=== PATIENT | male | born 1955 | race Caucasian/White ===

== ENCOUNTER 2017-10-05 10:03 | Emergency (ER) | payer SELFPAY ==
[2017-10-05] MEDS ORDERED: HYDROCODONE/APAP 5/325 MG TAB ONE (11:52)
--- NOTE | 2017-10-05 14:15 | ER ---
Nurse's Notes [facility] Name: Jaswinder Roa Age: 61 yrs Sex: Male : 1955 Arrival Date: 10/05/2017 Time: 10:08 Bed 18 Private MD: Uriel Langford S Diagnosis: Pain in left leg;Osteoarthritis of hip, unspecified Presentation: 10/05 10:23 Presenting complaint: Patient states: Pain to right inner thigh for 1 week with aj bilateral ear congestion. Ambulated to triage with steady gait. Transition of care: patient was not received from another setting of care. Onset of symptoms was September 28, 2017. Risk Assessment: Do you want to hurt yourself or someone else? Patient reports no desire to harm self or others. Care prior to arrival: None. 10:23 Method Of Arrival: Ambulatory aj 10:23 Acuity: CHICHI 3 aj 10:44 Initial Sepsis Screen: Does the patient meet any 2 criteria? No. Patient's initial aa5 sepsis screen is negative. Does the patient have a suspected source of infection? No. Patient's initial sepsis screen is negative. Triage Assessment: 10:24 General: Appears in no apparent distress. comfortable, Behavior is calm, cooperative, aj appropriate for age. Pain: Complains of pain in right inner thigh. Neuro: Level of Consciousness is awake, alert, obeys commands, Oriented to person, place, time, situation, Appropriate for age. Cardiovascular: Denies chest pain. Respiratory: Airway is patent Respiratory effort is even, unlabored, Respiratory pattern is regular, symmetrical. Respiratory: Denies shortness of breath. Derm: Skin is intact, is healthy with good turgor, Skin is pink, warm \\T\\ dry. normal. Historical: - Allergies: 10:24 No Known Allergies; aj - Home Meds: 10:24 lisinopril 5 mg Oral tab 1 tab once daily [Active]; warfarin 5 mg Oral tab 7.5 mg once aj daily [Active]; - PMHx: 10:24 Hypertension; aj - PSHx: 10:24 leg surgery; aj - Immunization history:: Adult Immunizations up to date. - Social history:: Smoking status: Patient uses tobacco products, smokes one pack cigarettes per day. - Ebola Screening: : Patient negative for fever greater than or equal to 101.5 degrees Fahrenheit, and additional compatible Ebola Virus Disease symptoms Patient denies exposure to infectious person Patient denies travel to an Ebola-affected area in the 21 days before illness onset No symptoms or risks identified at this time. Screenin:44 Abuse screen: Denies threats or abuse. Nutritional screening: No deficits noted. aa5 Tuberculosis screening: No symptoms or risk factors identified. Fall Risk None identified. Assessment: 10:40 General: Appears comfortable, Behavior is calm, cooperative. Pain: Complains of pain in aa5 right quadriceps Pain does not radiate. Pain currently is 5 out of 10 on a pain scale. Quality of pain is described as pt states "like a pulled muscle" Pain began 1 week ago Is continuous, Aggravated by increased activity, weight bearing. Neuro: Level of Consciousness is awake, alert, obeys commands, Oriented to person, place, time, situation. Cardiovascular: Edema is absent. Respiratory: Airway is patent Respiratory effort is even, unlabored, Respiratory pattern is regular, symmetrical. GI: No signs and/or symptoms were reported involving the gastrointestinal system. : No signs and/or symptoms were reported regarding the genitourinary system. EENT: Reports "ear congestion, I can barely hear". pt denies ear pain. Pt reports symptoms began 2-3 days ago. Derm: Skin is pink, warm \\T\\ dry. Musculoskeletal: Range of motion: intact in all extremities. 10:55 Reassessment: Report given to ELENA Starks. aa5 11:41 Reassessment: Patient appears in no apparent distress at this time. No changes from tw2 previously documented assessment. Patient and/or family updated on plan of care and expected duration. Pain level reassessed. Patient is alert, oriented x 3, equal unlabored respirations, skin warm/dry/pink. 12:46 Reassessment: Patient appears in no apparent distress at this time. No changes from tw2 previously documented assessment. Patient and/or family updated on plan of care and expected duration. Pain level reassessed. Patient is alert, oriented x 3, equal unlabored respirations, skin warm/dry/pink. 12:47 Reassessment: xray at bedside at this time. tw2 13:39 Reassessment: Patient appears in no apparent distress at this time. No changes from tw2 previously documented assessment. Patient and/or family updated on plan of care and expected duration. Pain level reassessed. Patient is alert, oriented x 3, equal unlabored respirations, skin warm/dry/pink. 14:32 Reassessment: Patient appears in no apparent distress at this time. No changes from tw2 previously documented assessment. Patient and/or family updated on plan of care and expected duration. Pain level reassessed. Patient is alert, oriented x 3, equal unlabored respirations, skin warm/dry/pink. Vital Signs: 10:24 BP 137 / 96; Pulse 79; Resp 16; Temp 97.5; Pulse Ox 98% on R/A; Weight 90.72 kg; Height aj 6 ft. 2 in. (187.96 cm); 11:41 BP 144 / 87; Pulse 60; Resp 17; Pulse Ox 96% ; tw2 12:42 BP 153 / 81; Pulse 53; Resp 17; Pulse Ox 100% on R/A; mh5 13:38 BP 145 / 84; Pulse 54; Resp 17; Pulse Ox 96% on R/A; tw2 14:33 BP 139 / 99; Pulse 54; Resp 17; Pulse Ox 98% on R/A; tw2 10:24 Body Mass Index 25.68 (90.72 kg, 187.96 cm) aj ED Course: 10:08 Patient arrived in ED. jb7 10:09 Uriel Langford MD is Private Physician. jb7 10:24 Triage completed. aj 10:24 Arm band placed on left wrist. Patient placed in an exam room. aj 10:29 Jennifer Loza, RN is Primary Nurse. aa5 10:39 [facility] kav 10:39 Jonathan Allan MD is Attending Physician. kav 10:40 Patient has correct armband on for positive identification. Placed in gown. Bed in low aa5 position. Call light in reach. Side rails up X2. 10:49 Primary Nurse role handed off by Jennifer Loza RN tw2 10:49 Tereza Hdez RN is Primary Nurse. tw2 12:35 Femur Right XRAY In Process Unspecified. EDMS 12:48 No provider procedures requiring assistance completed. tw2 13:55 X-ray completed. Portable x-ray completed in exam room. Patient tolerated procedure jb2 well. 14:13 Uriel Langford MD is Referral Physician. kav 14:34 Patient did not have IV access during this emergency room visit. tw2 Administered Medications: 11:51 Drug: [place] 5 mg-325 mg 1 tabs Route: PO; tw2 12:47 Follow up: Response: No adverse reaction; Pain is decreased tw2 Outcome: 14:14 Discharge ordered by . ka 14:34 Discharged to home ambulatory. tw2 14:34 Condition: stable 14:34 Discharge instructions given to patient, Instructed on discharge instructions, follow up and referral plans. no drinking with medication, no driving heavy equipment, medication usage, Demonstrated understanding of instructions, follow-up care, medications, Prescriptions given X 1. 14:34 Patient left the ED. tw2 Signatures: Dispatcher [employer] EDDeirdre Del Rosario RN RN aj Vern, Katherine, CRYPTOLOGIC TECHNICIAN TECHNICAL [place]2 Jennifer Loza RN RN aa5 Tereza Hdez RN RN tw2 Aleshia Patel [facility] Manuel Virgen jb7
--- NOTE | 2017-10-05 14:15 | EDPHYS ---
Physician Documentation [facility] Name: Jaswinder Roa Age: 61 yrs Sex: Male : 1955 Arrival Date: 10/05/2017 Time: 10:08 Bed 18 Private MD: Uriel Langford S ED Physician Jonathan Allan HPI: 10/05 10:40 This 61 yrs old Male presents to ER via Ambulatory with complaints of Groin kav Pain. 10:47 Onset: The symptoms/episode began/occurred acutely, 1 day(s) ago. kav 10:47 Onset: The symptoms/episode began/occurred 1 week(s) ago. Associated signs and kav symptoms: The patient has no apparent associated signs or symptoms, Pertinent negatives:. Modifying factors: The patient symptoms are alleviated by nothing, the patient symptoms are aggravated by movement. The patient has not experienced similar symptoms in the past. The patient has not recently seen a physician. Patient c/o right thigh pain. He reports that he "...took prescription Tylenol # 3 for this pain this morning and it did not help with the pain". 10:52 The complaints affect the medial aspect of right thigh. kav Historical: - Allergies: 10:24 No Known Allergies; aj - Home Meds: 10:24 lisinopril 5 mg Oral tab 1 tab once daily [Active]; warfarin 5 mg Oral tab 7.5 mg once aj daily [Active]; - PMHx: 10:24 Hypertension; aj - PSHx: 10:24 leg surgery; aj - Immunization history:: Adult Immunizations up to date. - Social history:: Smoking status: Patient uses tobacco products, smokes one pack cigarettes per day. - Ebola Screening: : Patient negative for fever greater than or equal to 101.5 degrees Fahrenheit, and additional compatible Ebola Virus Disease symptoms Patient denies exposure to infectious person Patient denies travel to an Ebola-affected area in the 21 days before illness onset No symptoms or risks identified at this time. ROS: 10:52 Constitutional: Negative for fever, chills, and weight loss, Eyes: Negative for injury, kav pain, redness, and discharge, ENT: Negative for injury, pain, and discharge, Neck: Negative for injury, pain, and swelling, Cardiovascular: Negative for chest pain, palpitations, and edema, Respiratory: Negative for shortness of breath, cough, wheezing, and pleuritic chest pain, Abdomen/GI: Negative for abdominal pain, nausea, vomiting, diarrhea, and constipation, Back: Negative for injury and pain, : Negative for injury, bleeding, discharge, and swelling, Skin: Negative for injury, rash, and discoloration, Neuro: Negative for headache, weakness, numbness, tingling, and seizure, Psych: Negative for depression, anxiety, suicide ideation, homicidal ideation, and hallucinations, Allergy/Immunology: Negative for hives, rash, and allergies, Endocrine: Negative for neck swelling, polydipsia, polyuria, polyphagia, and marked weight changes, Hematologic/Lymphatic: Negative for swollen nodes, abnormal bleeding, and unusual bruising. 10:52 MS/extremity: Positive for pain, Negative for injury or acute deformity, abrasion, contusion, decreased range of motion, deformity, ecchymosis, erythema, paresthesias, swelling, tenderness, tingling, warmth. Exam: 10:52 Constitutional: This is a well developed, well nourished patient who is awake, alert, kav and in no acute distress. Head/Face: Normocephalic, atraumatic. Eyes: Pupils equal round and reactive to light, extra-ocular motions intact. Lids and lashes normal. Conjunctiva and sclera are non-icteric and not injected. Cornea within normal limits. Periorbital areas with no swelling, redness, or edema. ENT: Nares patent. No nasal discharge, no septal abnormalities noted. Tympanic membranes are normal and external auditory canals are clear. Oropharynx with no redness, swelling, or masses, exudates, or evidence of obstruction, uvula midline. Mucous membranes moist. Neck: Trachea midline, no thyromegaly or masses palpated, and no cervical lymphadenopathy. Supple, full range of motion without nuchal rigidity, or vertebral point tenderness. No Meningismus. Chest/axilla: Normal chest wall appearance and motion. Nontender with no deformity. No lesions are appreciated. Cardiovascular: Regular rate and rhythm with a normal S1 and S2. No gallops, murmurs, or rubs. Normal PMI, no JVD. No pulse deficits. Respiratory: Lungs have equal breath sounds bilaterally, clear to auscultation and percussion. No rales, rhonchi or wheezes noted. No increased work of breathing, no retractions or nasal flaring. Abdomen/GI: Soft, non-tender, with normal bowel sounds. No distension or tympany. No guarding or rebound. No evidence of tenderness throughout. Back: No spinal tenderness. No costovertebral tenderness. Full range of motion. Male : Normal genitalia with no discharge or lesions. Skin: Warm, dry with normal turgor. Normal color with no rashes, no lesions, and no evidence of cellulitis. Neuro: Awake and alert, GCS 15, oriented to person, place, time, and situation. Cranial nerves II-XII grossly intact. Motor strength 5/5 in all extremities. Sensory grossly intact. Cerebellar exam normal. Normal gait. Psych: Awake, alert, with orientation to person, place and time. Behavior, mood, and affect are within normal limits. 10:52 Musculoskeletal/extremity: Extremities: all appear grossly normal, with no appreciated pain with palpation, ROM: no acute changes, intact in all extremities, full active range of motion, full passive range of motion, Circulation is intact in all extremities. Pulses: are normal with no appreciated deficits, Perfusion: the patient is normally perfused throughout, pink, warm, noted to have brisk capillary refill, Perfusion: the extremity is normally perfused throughout, pink, warm, with brisk capillary refill, Calf tenderness, is absent, Edema, is not appreciated, Sensation intact. Joints: All joints appear normal with full range of motion. Weight bearing: able to fully bear weight, Tendon exam: unable to examine DVT Exam: No signs of deep vein thrombosis. Vital Signs: 10:24 BP 137 / 96; Pulse 79; Resp 16; Temp 97.5; Pulse Ox 98% on R/A; Weight 90.72 kg; Height aj 6 ft. 2 in. (187.96 cm); 11:41 BP 144 / 87; Pulse 60; Resp 17; Pulse Ox 96% ; tw2 12:42 BP 153 / 81; Pulse 53; Resp 17; Pulse Ox 100% on R/A; mh5 13:38 BP 145 / 84; Pulse 54; Resp 17; Pulse Ox 96% on R/A; tw2 14:33 BP 139 / 99; Pulse 54; Resp 17; Pulse Ox 98% on R/A; tw2 10:24 Body Mass Index 25.68 (90.72 kg, 187.96 cm) cristina MDM: 10:40 Medical screening is not applicable. kav 10/05 11:47 Order name: Femur Right XRAY ka Administered Medications: 11:51 Drug: [place] 5 mg-325 mg 1 tabs Route: PO; tw2 12:47 Follow up: Response: No adverse reaction; Pain is decreased tw2 Disposition: 15:19 Co-signature as Attending Physician, Jonathan Allan MD I agree with the assessment and kdr plan of care. Disposition: 10/05/17 14:14 Discharged to Home. Impression: Pain in left leg, Osteoarthritis of hip, unspecified. - Condition is Stable. - Discharge Instructions: Musculoskeletal Pain. - Prescriptions for Cyclobenzaprine 10 mg Oral Tablet - take 1 tablet by ORAL route every 8 hours As needed; 15 tablet. - Medication Reconciliation Form, Thank You Letter, Antibiotic Education, Prescription Opioid Use form. - Follow up: Uriel Langford; When: 1 - 2 days; Reason: If symptoms return, Recheck today's complaints, Continuance of care, Re-evaluation by your physician. - Problem is new. - Symptoms have improved. Signatures: Dispatcher [employer] EDMS Deirdre Farley, RN RN Jonathan Yanez MD MD kdr Vern, Katherine, BARREL RIFLER BROACH BARREL RIFLER BROACH Tereza Smith, RN RN tw2 Corrections: (The following items were deleted from the chart) 14:34 14:14 10/05/2017 14:14 Discharged to Home. Impression: Pain in left leg; Osteoarthritis tw2 of hip, unspecified. Condition is Stable. Discharge Instructions: Musculoskeletal Pain. Prescriptions for Cyclobenzaprine 10 mg Oral Tablet - take 1 tablet by ORAL route every 8 hours As needed; 15 tablet. and Forms are Medication Reconciliation Form, Thank You Letter, Antibiotic Education, Prescription Opioid Use. Follow up: Uriel Langford; When: 1 - 2 days; Reason: If symptoms return, Recheck today's complaints, Continuance of care, Re-evaluation by your physician. Problem is new. Symptoms have improved. kav
--- NOTE | 2017-10-05 14:42 | RAD REPORT ---
EXAM DESCRIPTION: RAD - Femur Right - 10/05/2017 2:07 pm CLINICAL HISTORY: Leg pain, pain did medial inner thigh for 1 week, smoking history COMPARISON: None. FINDINGS: No fracture, dislocation or periosteal reaction noted. No acute or destructive bone proces s identifiable. There degenerative changes evident to the articular surfaces of the femur at the knee joint. These are only partially imaged on a femur examination. Joint effusion is not suspected. No a ir or foreign body in the soft tissues. IMPRESSION: No fracture or destructive femur process. Pathologic bone process not suspected. Degenerative changes to the articular surfaces of the femoral condyles suspected but not imaged adequ ately for full assessment. Correlation is needed with any pain symptoms referable to the joint. Followup plain films or follow-u p knee MRI could be performed.
[2017-10-05 14:45] VITALS: TEMP 97.5
[2017-10-05 14:50] VITALS: BP 139/99; O2SAT 98
== END 2017-10-05 14:34 | disposition home or self-care (01) ==
LOC: ER 10:03
DX: M16.12 Unilateral primary osteoarthritis, left hip (principal); I10 Essential (primary) hypertension; F17.210 Nicotine dependence, cigarettes, uncomplicated
CPT/HCPCS: 99283

== ENCOUNTER 2017-10-15 08:57 | Emergency (ER) | payer SELFPAY ==
[2017-10-15 10:18] LABS: Absolute Lymphocytes (CBC) 1.8 K/uL (0.7-4.9); Absolute Monocytes 0.5 K/uL (0.1-1.3); Absolute Neutrophil 5.3 K/uL (1.8-8.0); Basophils % 0.7 % (0-1.3); Eosinophils % 4.5 % (0-4.4); Hematocrit 47.1 % (39.6-49.0); MCH 32.5 pg (27.0-35.0); MCV 98.7 fL (80-100); MPV 7.6 fL (7.6-11.3); Monocytes % 6.1 % (3.3-12.3); RBC Red Blood Cell Count 4.77 M/uL (4.33-5.43)
[2017-10-15 10:22] LABS: Protime INR 1.46
[2017-10-15 10:33] LABS: ALT/SGPT 38 U/L (12-78); AST/SGOT 60 U/L (15-37); Albumin 3.4 g/dL (3.4-5.0); Alkaline Phosphatase 92 U/L (45-117); BUN Blood Urea Nitrogen 17 mg/dL (7-18); Bicarbonate 24 mmol/L (21-32); Bilirubin Direct < 0.1 mg/dL (0-0.2); Bilirubin Total 0.5 mg/dL (0.2-1.0); Glucose Level 117 mg/dL (74-106); Lipase 103 U/L (73-393); Potassium 3.9 mmol/L (3.5-5.1); Protein, Total 7.2 g/dL (6.4-8.2); Sodium Level 136 mmol/L (136-145)
--- NOTE | 2017-10-15 12:33 | RAD REPORT ---
EXAM DESCRIPTION: CT - Abdomen Pelvis Wo Contrast - 10/15/2017 12:14 pm CLINICAL HISTORY: Abdominal pain. abd pain COMPARISON: CT ABDOMEN PELVIS WO CONTRAST dated 10/18/2012 TECHNIQUE: CT imaging of the abdomen and pelvis was performed without contrast. Solid organ, bowel a nd vascular assessment is limited due to lack of IV and oral contrast. All CT scans are performed using dose optimization technique as appropriate and may include automated exposure control or mA/KV adjustment according to patient size. FINDINGS: The inferior lung haddad are emphysematous. The liver, spleen, pancreas, adrenal glands and kidneys are within normal limits for a limited non-co ntrast examination.Aortic stent graft is noted. No bowel obstruction, free air, free fluid or abscess. Prominent fecal retention in the colon. Scatte red colonic diverticula. The appendix is normal. The osseous structures are within normal limits. IMPRESSION: No acute intra-abdominal or pelvic findings. A limited non-contrast examination was performed as detailed.
[2017-10-15 13:05] LABS: Urine Bacteria <20 /HPF (NONE SEEN); Urine Culture Reflex Order NOT NEEDED; Urine RBC <5 /HPF (NONE SEEN)
--- NOTE | 2017-10-15 13:28 | ER ---
Nurse's Notes [facility] Name: Jaswinder Roa Age: 61 yrs Sex: Male : 1955 Arrival Date: 10/15/2017 Time: 08:59 Bed 20 Private MD: Uriel Langford S Diagnosis: Unspecified abdominal pain Presentation: 10/15 09:11 Presenting complaint: Patient states: lower abd pain that radiates to ellen. flanks that em started , denies fever, N/V/D. Transition of care: patient was not received from another setting of care. Onset of symptoms was October 13, 2017. Risk Assessment: Do you want to hurt yourself or someone else? Patient reports no desire to harm self or others. Initial Sepsis Screen: Does the patient meet any 2 criteria? No. Patient's initial sepsis screen is negative. Does the patient have a suspected source of infection? No. Patient's initial sepsis screen is negative. Care prior to arrival: None. 09:11 Method Of Arrival: Ambulatory em 09:11 Acuity: CHICHI 3 iw Triage Assessment: 09:15 General: Appears in no apparent distress. uncomfortable, Behavior is calm, cooperative. em Pain: Complains of pain in right lower quadrant and left lower quadrant Pain radiates to anterior aspect of left lateral abdomen and anterior aspect of right lateral abdomen Pain currently is 9 out of 10 on a pain scale. Quality of pain is described as squeezing. GI: Abdomen is round non-distended, Patient currently denies diarrhea, nausea, vomiting. Historical: - Allergies: 09:15 No Known Allergies; em - Home Meds: 09:19 lisinopril 5 mg Oral tab 1 tab once daily [Active]; warfarin 5 mg Oral tab 7.5 mg once em daily [Active]; - PMHx: 09:15 Hypertension; DVT; em - PSHx: 09:15 "stent in legs"; em - Immunization history:: Adult Immunizations not up to date. - Social history:: Smoking status: Patient uses tobacco products, smokes one pack cigarettes per day. - Ebola Screening: : No symptoms or risks identified at this time. Screenin:16 Abuse screen: Denies threats or abuse. Nutritional screening: No deficits noted. em Tuberculosis screening: No symptoms or risk factors identified. Fall Risk None identified. Assessment: 09:20 General: Appears in no apparent distress. uncomfortable, Behavior is calm, cooperative. em Pain: Complains of pain in left lower quadrant and right lower quadrant Pain currently is 9 out of 10 on a pain scale. Neuro: Level of Consciousness is awake, alert, obeys commands, Oriented to person, place, time, situation. Cardiovascular: Capillary refill < 3 seconds Patient's skin is warm and dry. Edema is absent. Respiratory: Airway is patent Respiratory effort is even, unlabored, Respiratory pattern is regular, symmetrical. GI: Abdomen is round non-distended, Bowel sounds present X 4 quads. Abd is soft X 4 quads Abdomen is tender to palpation in right lower quadrant Patient currently denies diarrhea, nausea, vomiting. : Denies burning with urination. EENT: No signs and/or symptoms were reported regarding the EENT system. Derm: Skin is intact, Skin is pink, warm \\T\\ dry. Musculoskeletal: Range of motion: intact in all extremities. 09:40 Reassessment: Patient appears in no apparent distress at this time. I agree with above iw assessment by Andrés Pappas LVN. 10:31 Reassessment: PO contrast given. em 10:41 Reassessment: Patient appears in no apparent distress at this time. Patient and/or em family updated on plan of care and expected duration. Pain level reassessed. Patient is alert, oriented x 3, equal unlabored respirations, skin warm/dry/pink. finished drinking PO contrast, tolerated well, CT notified. 11:57 Reassessment: Patient appears in no apparent distress at this time. Patient and/or em family updated on plan of care and expected duration. Pain level reassessed. Patient is alert, oriented x 3, equal unlabored respirations, skin warm/dry/pink. 13:20 Reassessment: Patient appears in no apparent distress at this time. Patient and/or em family updated on plan of care and expected duration. Pain level reassessed. Patient is alert, oriented x 3, equal unlabored respirations, skin warm/dry/pink. ALEXANDER Orosco at bedside, discussing POC. Vital Signs: 09:16 BP 141 / 93; Pulse 96; Resp 16; Temp 97.3; Pulse Ox 100% on R/A; Weight 90.72 kg (R); em Height 6 ft. 2 in. (187.96 cm); Pain 9/10; 10:30 BP 143 / 87; Pulse 67; Resp 20; Pulse Ox 99% on R/A; Pain 0/10; em 11:30 BP 139 / 99; Pulse 66; Resp 18; Pulse Ox 98% on R/A; em 12:30 BP 141 / 91; Pulse 63; Resp 16; Pulse Ox 99% on R/A; Pain 4/10; em 13:24 BP 137 / 87; Pulse 71; Resp 19; Pulse Ox 100% on R/A; em 09:16 Body Mass Index 25.68 (90.72 kg, 187.96 cm) em ED Course: 08:59 Patient arrived in ED. mr 08:59 Uriel Langford MD is Private Physician. mr 09:04 Andrés Pappas LVN is Primary Nurse. em 09:04 Kwesi Gardner NP is PHCP. pm1 09:04 Jonathan Allan MD is Attending Physician. pm1 09:16 Arm band placed on. em 09:16 Patient has correct armband on for positive identification. Placed in gown. Bed in low em position. Call light in reach. 10:05 Inserted saline lock: 20 gauge in right forearm, using aseptic technique. Blood ag collected. 10:05 Initial lab(s) drawn, by me, sent to lab. Missed attempt(s): 20 gauge in right ag antecubital area. Bleeding controlled, band aid applied, catheter tip intact. 10:48 Triage completed. iw 12:[address] via wheelchair. cw1 12:12 CT completed. Patient moved back from CT. cw1 12:14 Abdomen In Process Unspecified. EDMS 13:21 No provider procedures requiring assistance completed. em 13:28 Uriel Langford MD is Referral Physician. pm1 13:46 IV discontinued, intact, bleeding controlled, No redness/swelling at site. Pressure em dressing applied. Administered Medications: No medications were administered Outcome: 13:28 Discharge ordered by MD. pm1 13:46 Discharged to home ambulatory. em 13:46 Condition: good 13:46 Discharge instructions given to patient, Instructed on discharge instructions, follow up and referral plans. Demonstrated understanding of instructions, follow-up care. 13:47 Patient left the ED. em Signatures: Dispatcher [employer] EDAleshia Nixon mr Pappas, Andrés, GLOVE PRESSER GLOVE PRESSER em Claudine Monteiro, ELENA RN Julia Gomez cw1 Rowan Nice Patrick, PERFORATOR OPERATOR PERFORATOR OPERATOR pm1 Corrections: (The following items were deleted from the chart) 09: 09:15 Immunization history: Adult Immunizations not up to date, em em 09:20 09:16 BP 141 / 93; Pulse 96bpm; Resp 16bpm; Pulse Ox 100% RA; 90.72 kg Reported; Height em 6 ft. 2 in.; BMI: 25.6; Pain 9; em 10:42 10:41 Reassessment: Patient appears in no apparent distress at this time. Patient em and/or family updated on plan of care and expected duration. Pain level reassessed. Patient is alert, oriented x 3, equal unlabored respirations, skin warm/dry/pink. finished drinking PO contrast, CT notified em
--- NOTE | 2017-10-15 13:28 | EDPHYS ---
Physician Documentation [facility] Name: Jaswinder Roa Age: 61 yrs Sex: Male : 1955 Arrival Date: 10/15/2017 Time: 08:59 Bed 20 Private MD: Uriel Langford S ED Physician Jonathan Allan HPI: 10/15 11:30 This 61 yrs old Male presents to ER via Ambulatory with complaints of pm1 Abdominal Pain. 11:30 The patient presents with abdominal pain in the lower abdomen. Onset: The pm1 symptoms/episode began/occurred 10/04/2017. The symptoms do not radiate. Associated signs and symptoms: Pertinent negatives: nausea, vomiting, and diarrhea, chest pain, dysuria, fever. The symptoms are described as achy. Modifying factors: The symptoms are alleviated by nothing, the symptoms are aggravated by walking. Severity of pain: in the emergency department the pain is unchanged. The patient has not experienced similar symptoms in the past. Patient was seen here on 10/05/2017 for right hip and right leg pain. diagnosed with muscle strain. Reports continuation of right hip pain with lower abdominal pain. Negative N/V/D. Historical: - Allergies: 09:15 No Known Allergies; em - Home Meds: 09:19 lisinopril 5 mg Oral tab 1 tab once daily [Active]; warfarin 5 mg Oral tab 7.5 mg once em daily [Active]; - PMHx: 09:15 Hypertension; DVT; em - PSHx: 09:15 "stent in legs"; em - Immunization history:: Adult Immunizations not up to date. - Social history:: Smoking status: Patient uses tobacco products, smokes one pack cigarettes per day. - Ebola Screening: : No symptoms or risks identified at this time. ROS: 11:30 Constitutional: Negative for fever, chills, and weight loss, Eyes: Negative for injury, pm1 pain, redness, and discharge, ENT: Negative for injury, pain, and discharge, Neck: Negative for injury, pain, and swelling, Cardiovascular: Negative for chest pain, palpitations, and edema, Respiratory: Negative for shortness of breath, cough, wheezing, and pleuritic chest pain. 11:30 Back: Negative for injury and pain, : Negative for injury, bleeding, discharge, and swelling, MS/Extremity: Negative for injury and deformity, Skin: Negative for injury, rash, and discoloration. 11:30 Neuro: Negative for headache, weakness, numbness, tingling, and seizure. 11:30 Abdomen/GI: Positive for abdominal pain, nausea, vomiting, and diarrhea. Exam: 11:30 Constitutional: This is a well developed, well nourished patient who is awake, alert, pm1 and in no acute distress. Head/Face: Normocephalic, atraumatic. Eyes: Pupils equal round and reactive to light, extra-ocular motions intact. Lids and lashes normal. Conjunctiva and sclera are non-icteric and not injected. Cornea within normal limits. Periorbital areas with no swelling, redness, or edema. ENT: Nares patent. No nasal discharge, no septal abnormalities noted. Tympanic membranes are normal and external auditory canals are clear. Oropharynx with no redness, swelling, or masses, exudates, or evidence of obstruction, uvula midline. Mucous membranes moist. Neck: Trachea midline, no thyromegaly or masses palpated, and no cervical lymphadenopathy. Supple, full range of motion without nuchal rigidity, or vertebral point tenderness. No Meningismus. Chest/axilla: Normal chest wall appearance and motion. Nontender with no deformity. No lesions are appreciated. Cardiovascular: Regular rate and rhythm with a normal S1 and S2. No gallops, murmurs, or rubs. Normal PMI, no JVD. No pulse deficits. Respiratory: Lungs have equal breath sounds bilaterally, clear to auscultation and percussion. No rales, rhonchi or wheezes noted. No increased work of breathing, no retractions or nasal flaring. 11:30 Back: No spinal tenderness. No costovertebral tenderness. Full range of motion. Skin: Warm, dry with normal turgor. Normal color with no rashes, no lesions, and no evidence of cellulitis. MS/ Extremity: Pulses equal, no cyanosis. Neurovascular intact. Full, normal range of motion. 11:30 Abdomen/GI: Inspection: abdomen appears normal, Bowel sounds: active, all quadrants, Palpation: abdomen is soft and non-tender, in all quadrants, mass, rebound tenderness. 11:30 Neuro: Orientation: is normal, Cranial nerves: grossly normal, CN II- XII are normal as tested, Cerebellar function: normal finger to nose testing, Motor: is normal. Vital Signs: 09:16 BP 141 / 93; Pulse 96; Resp 16; Temp 97.3; Pulse Ox 100% on R/A; Weight 90.72 kg (R); em Height 6 ft. 2 in. (187.96 cm); Pain 9/10; 10:30 BP 143 / 87; Pulse 67; Resp 20; Pulse Ox 99% on R/A; Pain 0/10; em 11:30 BP 139 / 99; Pulse 66; Resp 18; Pulse Ox 98% on R/A; em 12:30 BP 141 / 91; Pulse 63; Resp 16; Pulse Ox 99% on R/A; Pain 4/10; em 13:24 BP 137 / 87; Pulse 71; Resp 19; Pulse Ox 100% on R/A; em 09:16 Body Mass Index 25.68 (90.72 kg, 187.96 cm) em MDM: 09:10 Patient medically screened. pm1 11:39 Data reviewed: vital signs. Data interpreted: Pulse oximetry: on room air is 99 %. pm1 Interpretation: normal. 13:17 Counseling: I had a detailed discussion with the patient and/or guardian regarding: the pm1 historical points, exam findings, and any diagnostic results supporting the discharge/admit diagnosis, lab results, radiology results, the need for outpatient follow up, to return to the emergency department if symptoms worsen or persist or if there are any questions or concerns that arise at home. 10/15 10:11 Order name: Basic Metabolic Panel; Complete Time: 11:39 EDMS 10/15 10:11 Order name: Liver (Hepatic) Function; Complete Time: 11:39 EDMS 10/15 10:11 Order name: Lipase; Complete Time: 11:39 EDMS 10/15 10:11 Order name: CBC with Automated Diff; Complete Time: 11:39 EDMS 10/15 10:11 Order name: Protime (+INR); Complete Time: 11:39 EDMS 10/15 10:11 Order name: PTT, Activated Partial Thromb; Complete Time: 11:39 EDMS 10/15 11:49 Order name: Urine Dipstick--Ancillary (enter results) sp 10/15 09:20 Order name: IV Saline Lock; Complete Time: 10:05 pm1 10/15 09:20 Order name: Labs collected and sent; Complete Time: 10:05 pm1 10/15 09:20 Order name: Urine Dipstick-Ancillary (obtain specimen); Complete Time: 11:42 pm1 10/15 11:53 Order name: Urine Microscopic Only; Complete Time: 13:16 EDMS 10/15 12:02 Order name: Abdomen ; Complete Time: 13:16 EDMS Administered Medications: No medications were administered Disposition: 14:31 Co-signature as Attending Physician, Jonathan Allan MD I agree with the assessment and kdr plan of care. Disposition: 10/15/17 13:28 Discharged to Home. Impression: Unspecified abdominal pain. - Condition is Stable. - Discharge Instructions: Abdominal Pain, Adult, Groin Strain. - Medication Reconciliation Form, Thank You Letter, Prescription Opioid Use form. - Follow up: Emergency Department; When: As needed; Reason: Worsening of condition. Follow up: Uriel Langford MD; When: 2 - 3 days; Reason: Recheck today's complaints, Continuance of care, Re-evaluation by your physician. - Problem is new. - Symptoms have improved. Signatures: Dispatcher [employer] [facility] Jonathan Allan MD MD [facility] Andrés Pappas, HANGING FLAGS DECORATOR HANGING FLAGS DECORATOR em Kwesi Gardner, PROTOTYPE SPECIAL BUILD PROTOTYPE SPECIAL BUILD pm1 Corrections: (The following items were deleted from the chart) 09:19 09:15 Immunization history: Adult Immunizations not up to date, em em 12:02 09:56 Abdomen ordered. [facility] 13:19 13:13 Abdomen Pelvis W Con+CT.RAD.BRZ ordered. [facility]FL 13:47 13:28 10/15/2017 13:28 Discharged to Home. Impression: Unspecified abdominal pain. em Condition is Stable. Forms are Medication Reconciliation Form, Thank You Letter, Antibiotic Education, Prescription Opioid Use. Follow up: Emergency Department; When: As needed; Reason: Worsening of condition. Follow up: Uriel Langford; When: 2 - 3 days; Reason: Recheck today's complaints, Continuance of care, Re-evaluation by your physician. Problem is new. Symptoms have improved. pm1
[2017-10-15 13:53] VITALS: TEMP 97.3
[2017-10-15 13:57] VITALS: BP 137/87; O2SAT 100
[2017-10-15 14:56] LABS: Urine Blood TRACE (NEG); Urine Glucose NEGATIVE (NEG); Urine Protein NEGATIVE (NEG); Urine Specific Gravity 1.015 (1.005-1.030); Urine pH 5.5 (5.0-7.0)
== END 2017-10-15 13:47 | disposition home or self-care (01) ==
LOC: ER 08:57
DX: R10.30 Lower abdominal pain, unspecified (principal); I10 Essential (primary) hypertension; F17.210 Nicotine dependence, cigarettes, uncomplicated; Z79.01 Long term (current) use of anticoagulants; Z86.718 Personal history of other venous thrombosis and embolism
CPT/HCPCS: 36415; 74176; 80048; 80076; 81003; 81015; 83690; 85025; 85610; 85730; 99284

== ENCOUNTER 2017-11-15 09:45 | Inpatient (IN) | payer OTHER, SELFPAY ==
--- NOTE | 2017-11-15 11:15 | ER ---
Nurse's Notes [facility] Name: Jaswinder Roa Age: 62 yrs Sex: Male : 1955 Arrival Date: 11/15/2017 Time: 09:51 Bed 18 Private MD: Uriel Langford S Diagnosis: Cellulitis and acute lymphangitis of other parts of limb-foot and 5th toe;Unspecified kidney failure Presentation: 11/15 10:05 Presenting complaint: Patient states: Pain and numbness to right foot for 1 month. aj Transition of care: patient was not received from another setting of care. Onset of symptoms was October 15, 2017. Risk Assessment: Do you want to hurt yourself or someone else? Patient reports no desire to harm self or others. Initial Sepsis Screen: Does the patient meet any 2 criteria? No. Patient's initial sepsis screen is negative. Does the patient have a suspected source of infection? No. Patient's initial sepsis screen is negative. Care prior to arrival: None. 10:05 Method Of Arrival: Ambulatory aj 10:05 Acuity: CHICHI 4 aj Triage Assessment: 10:06 General: Appears in no apparent distress. comfortable, Behavior is calm, cooperative, aj appropriate for age. Pain: Complains of pain in right foot. Neuro: Level of Consciousness is awake, alert, obeys commands, Oriented to person, place, time, situation, Appropriate for age. Cardiovascular: Pulses are palpable in right dorsalis pedis artery. Respiratory: Airway is patent Respiratory effort is even, unlabored, Respiratory pattern is regular, symmetrical. Derm: Skin is intact, is healthy with good turgor, Skin is pink, warm \\T\\ dry. normal. Musculoskeletal: Reports numbness in right foot pain in right foot. Historical: - Allergies: 10:06 No Known Allergies; aj - Home Meds: 10:06 lisinopril 5 mg Oral tab 1 tab once daily [Active]; warfarin 5 mg Oral tab 7.5 mg once aj daily [Active]; - PMHx: 10:06 DVT; Hypertension; aj - PSHx: 10:06 "stent in legs"; aj - Immunization history:: Adult Immunizations up to date. - Social history:: Smoking status: Patient uses tobacco products, smokes one pack cigarettes per day. - Ebola Screening: : Patient negative for fever greater than or equal to 101.5 degrees Fahrenheit, and additional compatible Ebola Virus Disease symptoms Patient denies exposure to infectious person Patient denies travel to an Ebola-affected area in the 21 days before illness onset No symptoms or risks identified at this time. - Family history:: not pertinent. Screenin:05 Abuse screen: Denies threats or abuse. Nutritional screening: No deficits noted. mb3 Tuberculosis screening: No symptoms or risk factors identified. Fall Risk No fall in past 12 months (0 pts). Secondary diagnosis (15 points) No IV (0 pts). Ambulatory Aid- Furniture (30 pts.). Gait- Impaired (20 pts.). Mental Status- Oriented to own ability (0 pts). Total Bridges Fall Scale indicates High Risk Score (45 or more points). Fall prevention measures have been instituted. Placed Close to Nursing Station Frequent Obs/Assessments Occuring As available patient and family educated on Fall Prevention Program and Strategies. Assessment: 11:06 General: Appears in no apparent distress. comfortable, Behavior is calm, cooperative, mb3 appropriate for age. Pain: Complains of pain in right foot Pain does not radiate. Neuro: No deficits noted. Cardiovascular: No deficits noted. Respiratory: No deficits noted. GI: No deficits noted. No signs and/or symptoms were reported involving the gastrointestinal system. : No deficits noted. No signs and/or symptoms were reported regarding the genitourinary system. EENT: No deficits noted. No signs and/or symptoms were reported regarding the EENT system. Derm: Skin Has bruising and open wound to the top of the right great toe, right little toe also. Redness from top of little toe goes around toe and into ball of foot with open sore on posterior edge of ball of foot. Ball of foot red and swollen also starting from posterior edge working inward. Musculoskeletal: Reports pain in right foot difficulty walking. states unable to ambulate very far due to pain in right foot. 11:56 Reassessment: Patient and/or family updated on plan of care and expected duration. Pain mb3 level reassessed. Patient is alert, oriented x 3, equal unlabored respirations, skin warm/dry/pink. Vital Signs: 10:06 BP 166 / 98; Pulse 93; Resp 17; Temp 97.2; Pulse Ox 98% on R/A; Weight 90.72 kg; Height aj 6 ft. 2 in. (187.96 cm); 11:55 BP 135 / 91; Pulse 79; Resp 20; Pulse Ox 99% on R/A; mb3 13:33 BP 161 / 95; Pulse 81; Resp 17; Pulse Ox 96% on R/A; mb3 10:06 Body Mass Index 25.68 (90.72 kg, 187.96 cm) ED Course: 09:51 Patient arrived in ED. sb2 09:51 Uriel Langford MD is Private Physician. sb2 10:02 Elias Yusuf MD is Attending Physician. [place] 10:06 Triage completed. aj 10:06 Arm band placed on right wrist. Patient placed in waiting room, Patient notified of wait time. 10:10 Mitch Nguyen, ELENA is Primary Nurse. mb3 11:12 Praful Woodson MD is Hospitalizing Provider. [place] 11:35 Inserted saline lock: 22 gauge in left antecubital area, using aseptic technique. Blood mb3 collected. 11:54 Basic Metabolic Panel Sent. mb3 12:06 EKG done, by quality assurance technician. reviewed by Elias Yusuf MD. at1 12:40 X-ray completed. Portable x-ray completed in exam room. Patient tolerated procedure ml well. 13:22 Patient has correct armband on for positive identification. mb3 13:22 No provider procedures requiring assistance completed. Patient admitted, IV remains in mb3 place. 13:30 Foot Right Wo Cont Sent. mb3 13:31 Foot Right 3 View XRAY Sent. mb3 13:32 XRAY Chest (1 view) Sent. mb3 Administered Medications: 11:54 Drug: NS 0.9% 1000 ml Route: IV; Rate: 125 ml/hr; Site: left antecubital; mb3 13:31 Follow up: Response: No adverse reaction; IV Status: Infusion continued upon admission; mb3 IV Intake: 250ml 11:54 Drug: Zosyn 3.375 grams Route: IVPB; Infused Over: 60 mins; Site: left antecubital; mb3 13:30 Follow up: Response: No adverse reaction; IV Status: Completed infusion; IV Intake: mb3 100ml 12:36 Drug: vancoMYCIN 1 grams Route: IVPB; Infused Over: 2 hrs; Site: left antecubital; mb3 13:31 Follow up: Response: No adverse reaction; IV Status: Completed infusion; IV Intake: mb3 250ml Intake: 13:30 IV: 100ml; Total: 100ml. mb3 13:31 IV: 250ml; Total: 350ml. mb3 13:31 IV: 250ml; Total: 600ml. mb3 Outcome: 11:14 Decision to Hospitalize by Provider. [place] 13:23 Admitted to Med/surg accompanied by tech, via wheelchair, room 221, with chart, Report mb3 called to Ashok Garzon RN 13:23 Condition: stable 13:23 Instructed on the need for admit. 13:32 Patient left the ED. mb3 Signatures: Deirdre Farley, RN RN Elias Parmar MD MD cha Lopez, Melissa ml gonzales, Amanda, building maintenance superintendent EKG Tat1 Ryann Costa sb2 Mitch Nguyen, RN RN mb3
--- NOTE | 2017-11-15 11:15 | EDPHYS ---
Physician Documentation [facility] Name: Jaswinder Roa Age: 62 yrs Sex: Male : 1955 Arrival Date: 11/15/2017 Time: 09:51 Bed 18 Private MD: Uriel Langford S ED Physician Elias Yusuf HPI: 11/15 11:08 This 62 yrs old Male presents to ER via Ambulatory with complaints of Foot [place] Pain. 11:08 The patient presents with decreased range of motion, pain, swelling, tenderness. The [place] complaints affect the right foot, dorsum of right foot and right fifth toe. Context: The problem was sustained at an unknown location. Onset: The symptoms/episode began/occurred 2 week(s) ago. Modifying factors: The symptoms are alleviated by elevation of extremity, the symptoms are aggravated by movement. Associated signs and symptoms: The patient has no apparent associated signs or symptoms. Severity of symptoms: At their worst the symptoms were moderate, in the emergency department the symptoms are unchanged. The patient has not experienced similar symptoms in the past. Historical: - Allergies: 10:06 No Known Allergies; aj - Home Meds: 10:06 lisinopril 5 mg Oral tab 1 tab once daily [Active]; warfarin 5 mg Oral tab 7.5 mg once aj daily [Active]; - PMHx: 10:06 DVT; Hypertension; aj - PSHx: 10:06 "stent in legs"; aj - Immunization history:: Adult Immunizations up to date. - Social history:: Smoking status: Patient uses tobacco products, smokes one pack cigarettes per day. - Ebola Screening: : Patient negative for fever greater than or equal to 101.5 degrees Fahrenheit, and additional compatible Ebola Virus Disease symptoms Patient denies exposure to infectious person Patient denies travel to an Ebola-affected area in the 21 days before illness onset No symptoms or risks identified at this time. - Family history:: not pertinent. ROS: 11:08 Constitutional: Negative for fever, chills, and weight loss, Eyes: Negative for injury, [place] pain, redness, and discharge, ENT: Negative for injury, pain, and discharge, Neck: Negative for injury, pain, and swelling, Cardiovascular: Negative for chest pain, palpitations, and edema, Respiratory: Negative for shortness of breath, cough, wheezing, and pleuritic chest pain, Abdomen/GI: Negative for abdominal pain, nausea, vomiting, diarrhea, and constipation, Back: Negative for injury and pain, : Negative for injury, bleeding, discharge, and swelling, Skin: Negative for injury, rash, and discoloration, Neuro: Negative for headache, weakness, numbness, tingling, and seizure, Psych: Negative for depression, anxiety, suicide ideation, homicidal ideation, and hallucinations, Allergy/Immunology: Negative for hives, rash, and allergies, Endocrine: Negative for neck swelling, polydipsia, polyuria, polyphagia, and marked weight changes, Hematologic/Lymphatic: Negative for swollen nodes, abnormal bleeding, and unusual bruising. 11:08 : Positive for 11:08 MS/extremity: Positive for decreased range of motion, erythema, pain, swelling, tenderness, of the dorsum of right foot and right fifth toe. Exam: 11:08 Constitutional: This is a well developed, well nourished patient who is awake, alert, [place] and in no acute distress. Head/Face: Normocephalic, atraumatic. Eyes: Pupils equal round and reactive to light, extra-ocular motions intact. Lids and lashes normal. Conjunctiva and sclera are non-icteric and not injected. Cornea within normal limits. Periorbital areas with no swelling, redness, or edema. ENT: Nares patent. No nasal discharge, no septal abnormalities noted. Tympanic membranes are normal and external auditory canals are clear. Oropharynx with no redness, swelling, or masses, exudates, or evidence of obstruction, uvula midline. Mucous membranes moist. Neck: Trachea midline, no thyromegaly or masses palpated, and no cervical lymphadenopathy. Supple, full range of motion without nuchal rigidity, or vertebral point tenderness. No Meningismus. Chest/axilla: Normal chest wall appearance and motion. Nontender with no deformity. No lesions are appreciated. Cardiovascular: Regular rate and rhythm with a normal S1 and S2. No gallops, murmurs, or rubs. Normal PMI, no JVD. No pulse deficits. Respiratory: Lungs have equal breath sounds bilaterally, clear to auscultation and percussion. No rales, rhonchi or wheezes noted. No increased work of breathing, no retractions or nasal flaring. Abdomen/GI: Soft, non-tender, with normal bowel sounds. No distension or tympany. No guarding or rebound. No evidence of tenderness throughout. Back: No spinal tenderness. No costovertebral tenderness. Full range of motion. Male : Normal genitalia with no discharge or lesions. Neuro: Awake and alert, GCS 15, oriented to person, place, time, and situation. Cranial nerves II-XII grossly intact. Motor strength 5/5 in all extremities. Sensory grossly intact. Cerebellar exam normal. Normal gait. Psych: Awake, alert, with orientation to person, place and time. Behavior, mood, and affect are within normal limits. 11:08 Skin: cellulitis, that is mild, that is moderate, induration, that is mild is noted. Vital Signs: 10:06 BP 166 / 98; Pulse 93; Resp 17; Temp 97.2; Pulse Ox 98% on R/A; Weight 90.72 kg; Height aj 6 ft. 2 in. (187.96 cm); 11:55 BP 135 / 91; Pulse 79; Resp 20; Pulse Ox 99% on R/A; mb3 13:33 BP 161 / 95; Pulse 81; Resp 17; Pulse Ox 96% on R/A; mb3 10:06 Body Mass Index 25.68 (90.72 kg, 187.96 cm) MDM: 10:32 Patient medically screened. [facility] 11:12 Data reviewed: vital signs, nurses notes, lab test result(s), EKG, radiologic studies, [place] plain films. 11/15 11:08 Order name: Basic Metabolic Panel [facility] 11/15 11:08 Order name: CBC with Diff; Complete Time: 12:21 [facility] 11/15 11:08 Order name: Ckmb; Complete Time: 13: [facility] 11/15 11:08 Order name: CPK; Complete Time: 13: [facility] 11/15 11:08 Order name: LFT's; Complete Time: 13: [facility] 11/15 11:08 Order name: Magnesium; Complete Time: 13: [facility] 11/15 11:08 Order name: NT PRO-BNP; Complete Time: 13: [facility] 11/15 11:08 Order name: PT-INR; Complete Time: 12:08 [facility] 11/15 11:08 Order name: Ptt, Activated; Complete Time: 12: [facility] 11/15 11:08 Order name: Troponin (emerg Dept Use Only) [facility] 11/15 11:08 Order name: XRAY Chest (1 view) [facility] 11/15 11:08 Order name: Sed Rate; Complete Time: 12:21 [facility] 11/15 11:08 Order name: Foot Right 3 View XRAY [facility] 11/15 11:08 Order name: Basic Metabolic Panel; Complete Time: 13:05 EDMS 11/15 11:08 Order name: EKG; Complete Time: 11:08 [facility] 11/15 11:08 Order name: Cardiac monitoring; Complete Time: 11:54 [facility] 11/15 11:08 Order name: EKG - Nurse/Tech; Complete Time: 11:56 [facility] 11/15 11:08 Order name: IV Saline Lock; Complete Time: 11:54 [facility] 11/15 11:08 Order name: Labs collected and sent; Complete Time: 11:55 [facility] 11/15 11:08 Order name: O2 Per Protocol; Complete Time: 11:11 [facility] 11/15 11:08 Order name: O2 Sat Monitoring; Complete Time: 11:11 [facility] 11/15 11:08 Order name: Urine Dipstick-Ancillary (obtain specimen) [facility] 11/15 11:19 Order name: CONS Physician Consult; Complete Time: 13:30 EDMS 11/15 11:19 Order name: Foot Right Wo Cont EDMI 11/15 12:48 Order name: RAD; Complete Time: 13:05 EDMI 11/15 13:08 Order name: RAD EDMS Administered Medications: 11:54 Drug: NS 0.9% 1000 ml Route: IV; Rate: 125 ml/hr; Site: left antecubital; mb3 13:31 Follow up: Response: No adverse reaction; IV Status: Infusion continued upon admission; mb3 IV Intake: 250ml 11:54 Drug: Zosyn 3.375 grams Route: IVPB; Infused Over: 60 mins; Site: left antecubital; mb3 13:30 Follow up: Response: No adverse reaction; IV Status: Completed infusion; IV Intake: mb3 100ml 12:36 Drug: vancoMYCIN 1 grams Route: IVPB; Infused Over: 2 hrs; Site: left antecubital; mb3 13:31 Follow up: Response: No adverse reaction; IV Status: Completed infusion; IV Intake: mb3 250ml Disposition: 11/15/17 11:14 Hospitalization ordered by Praful Woodson for Inpatient Admission. Preliminary diagnosis are Cellulitis and acute lymphangitis of other parts of limb - foot and 5th toe, Unspecified kidney failure. - Bed requested for Telemetry/MedSurg (Inpatient). - Status is Inpatient Admission. mb3 - Condition is Stable. - Problem is new. - Symptoms have improved. UTI on Admission? No Signatures: Dispatcher [employer] EDMeagan Rachel RN Deirdre Woods RN RN aj Anderson, Corey, MD MD cha Barnett, Mark, RN RN mb3 Corrections: (The following items were deleted from the chart) 12:56 11:14 Hospitalization Ordered by Praful Woodson MD for Inpatient Admission. Preliminary dw diagnosis is Cellulitis and acute lymphangitis of other parts of limb - foot and 5th toe. Bed requested for Telemetry/MedSurg (Inpatient). Status is Inpatient Admission. Condition is Stable. Problem is new. Symptoms have improved. UTI on Admission? No. [place] 13:08 12:56 11/15/2017 11:14 Hospitalization Ordered by Praful Woodson MD for Inpatient [facility] Admission. Preliminary diagnosis is Cellulitis and acute lymphangitis of other parts of limb - foot and 5th toe. Bed requested for Telemetry/MedSurg (Inpatient). Status is Inpatient Admission. Condition is Stable. Problem is new. Symptoms have improved. UTI on Admission? No. carmina 13:32 13:08 11/15/2017 11:14 Hospitalization Ordered by Praful Woodson MD for Inpatient 3 Admission. Preliminary diagnosis is Cellulitis and acute lymphangitis of other parts of limb - foot and 5th toe; Unspecified kidney failure. Bed requested for Telemetry/MedSurg (Inpatient). Status is Inpatient Admission. Condition is Stable. Problem is new. Symptoms have improved. UTI on Admission? No. [place]
[2017-11-15] MEDS ORDERED: NA CHLORIDE 0.9% 1,000 ML ONE (11:43)
[2017-11-15] MEDS ORDERED: PIPER/TAZO/NS 3.375gm 3.375 GM/100 ML BAG ONE (11:43)
[2017-11-15] MEDS ORDERED: VANCOMYCIN 1 GM/250 ML BAG ONE (11:43)
[2017-11-15 11:56] LABS: Absolute Monocytes 0.7 K/uL (0.1-1.3); Absolute Neutrophil 6.2 K/uL (1.8-8.0); Basophils % 0.7 % (0-1.3); Eosinophils % 2.6 % (0-4.4); Hematocrit 47.8 % (39.6-49.0); Lymphocytes % 21.9 % (15.3-44.8); MCH 33.5 pg (27.0-35.0); MCV 98.6 fL (80-100); MPV 7.4 fL (7.6-11.3); Monocytes % 7.2 % (3.3-12.3); RBC Red Blood Cell Count 4.85 M/uL (4.33-5.43)
[2017-11-15 12:02] LABS: Protime INR 0.97
[2017-11-15] MEDS ORDERED: ACETAMINOPHEN 500 MG TAB PO PRN (12:14)
[2017-11-15] MEDS ORDERED: ONDANSETRON 4 MG/2 ML VIAL IV PRN (12:14)
[2017-11-15 12:40] LABS: Albumin 3.5 g/dL (3.4-5.0); Bilirubin Direct 0.1 mg/dL (0-0.2); Bilirubin Total 0.5 mg/dL (0.2-1.0); Magnesium 2.2 mg/dL (1.8-2.4); Potassium 4.4 mmol/L (3.5-5.1); Protein, Total 6.9 g/dL (6.4-8.2)
[2017-11-15 12:44] LABS: CKMB Creatine Kinase MB 1.2 ng/mL (0.3-3.6)
--- NOTE | 2017-11-15 12:47 | RAD REPORT ---
EXAM DESCRIPTION: [place] Single View11/15/2017 12:42 pm CLINICAL HISTORY: Cough COMPARISON: February 2016 FINDINGS: Right pleural thickening and elevation of the right hemidiaphragm is unchanged. The lungs appear clear of acute infiltrate. The heart is normal size IMPRESSION: No acute abnormalities displayed
[2017-11-15] MEDS: NA CHLORIDE 0.9% 1,000 ML IV SCH (13:00)
--- NOTE | 2017-11-15 13:07 | RAD REPORT ---
EXAM DESCRIPTION: RAD - Foot Right 3 View - 11/15/2017 12:42 pm CLINICAL HISTORY: Right foot pain and numbness COMPARISON: February 2016 FINDINGS: No fracture is identified. No dislocation or periosteal reaction. No acute or destructive bone process identifiable. The second-fifth phalanges assessment is limited as the patient is in a pr onounced extension positioning at each of these MTP joints. No plantar spur. No air or foreign body i n the soft tissues. IMPRESSION: Right foot assessment is limited due to positioning. No acute bone or joint finding iden tifiable.
[2017-11-15] MEDS ORDERED: VANCOMYCIN 500 MG in NA CHLORIDE 0.9% 100 ML IVPB ONE (13:45)
[2017-11-15] MEDS ORDERED: FLUMAZENIL 0.1 MG/ML (5 mL VIAL) IV PRN (14:47)
[2017-11-15] MEDS ORDERED: LORazepam 2 MG/ML VIAL IV PRN (14:52)
[2017-11-15] MEDS: MORPHINE 4 MG/ML SYR IV PRN (15:43)
--- NOTE | 2017-11-15 16:48 | RAD REPORT ---
EXAM DESCRIPTION: VAS - Upper Lower Extrem Art Multi - 11/15/2017 4:33 pm CLINICAL HISTORY: Peripheral vascular disease, diminished blood flow COMPARISON: None. TECHNIQUE: Grayscale and Doppler evaluation performed along the length of each lower extremity. Visu al inspection of the lower extremity arterial tree performed. FINDINGS: Primarily monophasic waveform pattern seen along the length of the right lower extremity. Common femoral artery velocity was 78 cm/seconds. Visual inspection shows reduced blood flow within t he superficial femoral, popliteal artery ankle artery's. Superficial femoral artery velocities range from 38-52 cm/second. Popliteal artery reduced to 22 cm/s econd with the posterior tibial 8 cm/second and the dorsalis pedis artery 16 cm/second. A biphasic and triphasic waveform pattern seen in the left lower extremity. Common femoral artery mio ocity was 63 cm/second. Femoral artery velocity range from 72-85 cm/second with a 77 cm/second poplit eal artery velocity. Posterior tibial velocity on the left was 20 cm/second with the dorsalis pedis 7 1 cm/second. Right lower extremity vasculature was more difficult to identify relative to the left with an overall reduced blood flow pattern. A specific or focal stricture was not defined. IMPRESSION: Significant right lower extremity peripheral arterial disease with dampened waveform and dampened velocity values relative to the left.
--- NOTE | 2017-11-15 17:54 | RAD REPORT ---
EXAM DESCRIPTION: MRI - Foot Right Wo Cont - 11/15/2017 4:49 pm CLINICAL HISTORY: Soft tissue wound, peripheral vascular disease, suspected osteomyelitis COMPARISON: Right foot November 15 ; right foot MRI February 2016 TECHNIQUE: Multiplanar imaging of the right foot performed using T1 weighted, T2 fat saturation, T1 fat saturation and T2 stir sequencing. FINDINGS: No occult fracture, bone bruise or marrow replacing process. Normal T1/T2 signal is presen t in the metatarsals and phalanges. No MR findings for osteomyelitis. The exam does have motion degra dation limitations no bone assessment is felt to be sufficiently accurate to exclude osteomyelitis at this time. No significant edema signal in the soft tissues. No abscess or drainable fluid collections seen. No a cute tendon abnormality identifiable. IMPRESSION: No osteomyelitis findings identifiable. No acute bone or joint finding. No abscess or drainable fluid collection.
--- NOTE | 2017-11-15 17:58 | EKG ---
Test Date: 2017-11-15 Test Time: 11:52:10 Diagrammer And Seamer: ANGELINE MEASUREMENT RESULTS: Intervals: Rate: 72 NE: 178 QRSD: 80 QT: 400 QTc: 438 [place]: P: 58 NE: 178 QRS: 55 T: 64 INTERPRETIVE STATEMENTS: Normal sinus rhythm Normal ECG Compared to ECG 03/22/2016 18:04:51 Sinus tachycardia no longer present Electronically Signed On 11-15-17 17:56:47 CDT by Brennon Valente
[2017-11-15] MEDS: HEPARIN/D5W 25,000 UNIT/500 ML BAG IV SCH (18:00)
[2017-11-15 18:23] VITALS: BMI 25.7
[2017-11-15] MEDS ORDERED: VANCOMYCIN 1GM/D5W 200 ML IV SCH (21:00)
--- NOTE | 2017-11-15 22:16 | HP ---
Date of Admission: 11/15/2017 Yarn Winder: Arthur Bloom MD. Chief Complaint: Pain in the right foot. Code Status: Full. History Of Present Illness: The patient is a 62-year-old male with past medical history of hypertension, history of DVT on anticoagulation, and long- standing history of tobacco use and alcohol use, who was in his usual state of health until 1 month prior to admission when the patient had worsening pain of his right foot. The patient reports worsening pain with ambulation. The patient does report hanging the foot off the bed to alleviate his pain. Denies any trauma. No discharge. Does report some discoloration. The patient smokes heavily. The patient's symptoms are constant, moderate, progressively worsening. The patient therefore came into the ER for further evaluation. His pain had become constant. His workup revealed normal white count. INR was subtherapeutic at 0.97. X-ray of the foot did not show any bony abnormality. The patient was then referred for admission for right foot pain. Past Medical History: Hypertension, DVT of the right leg 2 years ago on anticoagulation. Surgical History: Clot removal 2 years ago from the right leg DVT. Allergies: NO KNOWN DRUG ALLERGIES. THE PATIENT DOES HAVE INTOLERANCE TO TRAMADOL. Medications: List reviewed. Social History: The patient smokes 1 pack per day over 30 years. The patient drinks 3 glasses of whiskey daily. No illicit drug use. 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 Family History: Hypertension, [place]. Review of Systems: An 11-point system reviewed, negative except as per HPI. Physical Examination: Vital Signs: Temperature 97.2, heart rate 93, blood pressure 166/98, respirations 17, O2 saturation 98% on room air. General: Awake, alert, oriented x3. Some mild distress due to pain. Appears older than stated age. HEENT: Normocephalic, atraumatic. PERRLA. EOMI. Moist mucous membranes. Oropharynx is clear. Poor dentition. Conjunctivae anicteric. Neck: Supple. No JVD. Trachea midline. CV: S1, S2. Regular rate and rhythm. Peripheral pulses are not palpable. Doppler pulses present. Respiratory: Clear to auscultation bilaterally. No wheezing. No stridor. No use of accessory muscles. Gastrointestinal: Abdomen is soft, nontender, and nondistended. Positive bowel sounds. No guarding or rigidity. Extremities: No clubbing, cyanosis, or edema. No calf tenderness. Neuro: Cranial nerves 2 through 12 intact grossly. No focal neurological deficit. Speech is normal. Strength is 5/5 in bilateral upper and lower extremities. Skin: The patient has a pale right foot when on the bed with a callus on the plantar aspect of the fifth metatarsal and a healing abrasion on the lateral aspect of the foot. Tenderness to palpation. The patient's foot has a purplish discoloration when hanging off the bed. Psych: Mood is okay. Affect is full. Insight and judgment are poor. Laboratory Data: INR 0.97, sodium 143, potassium 4.4, chloride 112, CO2 of 25, BUN 16, creatinine 1.8, glucose 83, calcium 8.4, magnesium 2.2. WBC 9.1, H and H 16.3 and 47.8, platelets 325, neutrophils 67%. Foot x-ray personally reviewed shows no bony abnormalities or fractures. Chest x-ray, personally reviewed, shows no acute abnormality displayed. Assessment And Plan: A 62-year-old male with; 1. Right foot pain, likely secondary to possible arterial occlusion and limb threatening ischemia. The patient does have changes consistent with peripheral vascular disease. Dr. Bloom has been consulted. We will start on anti- platelet therapy. The patient is supposed to be on anticoagulation, however, INR is 0.97. 2. Essential hypertension, stable. We will resume home medications as appropriate. 3. History of deep venous thrombosis in the right leg. The patient is supposed to be on warfarin. INR is subtherapeutic. 4. Likely poor peripheral vascular disease and severe peripheral vascular disease. We will obtain arterial Doppler now. 5. Nicotine dependence with cigarette smoking, counseled. 6. Alcohol dependence. The patient drinks whiskey daily. We will start on multivitamin and Ativan p.r.n. for syndrome of withdrawal. 7. Gastrointestinal and deep venous thrombosis prophylaxes. Plan: Admit the patient to Med-Surg and place as inpatient. We will consult Cardiology for possible stenting. May need to get a CT angio for evaluating blood vessels. ADDENDUM: pt was initially recommended to be transferred by surgery due to lack of vascular services and was accepted to [facility] however after arterial doppler results and discussion with cardiology transfer was cancelled. pt placed on heparin drip and scheduled for angio in am. /EUGENIE Voice ID: [id number] MTDD
[2017-11-16] MEDS: MORPHINE 4 MG/ML SYR IV PRN ×2 (01:07→06:07)
[2017-11-16] MEDS: NA CHLORIDE 0.9% 1,000 ML IV SCH ×3 (01:10→18:10)
--- NOTE | 2017-11-16 01:30 | CON ---
Date of Consultation: 11/15/2017 Reason For Consultation: Peripheral arterial disease. History Of Present Illness: Mr. Roa is a 62-year-old patient who has had history of PAD. Accord ing to him, he had new stent in the right leg. He is unsure if he has had surgery on that side, but he apparently had a clot at one point that was removed and since then he has been on Coumadin. Ironi adolfo, his INR is only 0.97. He does not recall having any cardiac history in the past. His surgeri es were done in [facility]. He came in with severe claudication in the right foot with some celluli tis. The Doppler showed monophasic flow with low velocities all the way from the right common femora l artery to the toes distally. No focal stenosis was noted. There is suspicion that there is stenos is in the iliac based on the Doppler. The left side appears to be within normal limit. The patient denied any cardiac symptoms. He had a normal EKG and normal chest x-ray. MRI of the foot did not sh ow any osteomyelitis. Past Medical History: History of DVT, PAD, hypertension, tobacco abuse. Family History: Positive for heart disease. Review of Systems: Negative. Social History: Negative. Medications At Home: Supposed to be lisinopril and Coumadin. Physical Examination: Vital Signs: Stable. He is afebrile. HEENT: Negative. Neck: Supple without any bruit, lymphadenopathy, JVD, or thyromegaly. Chest: Clear to auscultation and percussion. Cardiac: Revealed a regular rhythm and rate without any murmurs, gallops, or rubs. Abdomen: Benign. Extremities: Revealed no clubbing, cyanosis, or edema. He had some cellulitis changes on the right foot, decreased DP and PT in the right foot, normal pulses on the left side. Diagnostic Data: As stated earlier. He did have a creatinine of 1.8. Impression And Plan: Peripheral artery disease with abnormal arterial Doppler with very symptomatic claudication. The patient is on Coumadin but has a normal INR. He has renal insufficiency with 1.8 creatinine. We will receive Mucomyst before and after the procedure. We recommended an abdominal an giogram with runoff via left groin approach to evaluate and intervene. His blood pressure is well co ntrolled. We will follow him along with Dr. Woodson. The case was discussed in detail with Dr. Woodson. YAMEL/EUGENIE Voice ID: [id number] Report ID: [id number]
[2017-11-16 05:00] LABS: Absolute Lymphocytes (CBC) 2.3 K/uL (0.7-4.9); Absolute Monocytes 0.6 K/uL (0.1-1.3); Absolute Neutrophil 4.7 K/uL (1.8-8.0); Basophils % 0.5 % (0-1.3); Eosinophils % 3.8 % (0-4.4); Hematocrit 40.4 % (39.6-49.0); Lymphocytes % 28.5 % (15.3-44.8); MCH 33.8 pg (27.0-35.0); MPV 7.7 fL (7.6-11.3); Monocytes % 7.5 % (3.3-12.3); RBC Red Blood Cell Count 4.04 M/uL (4.33-5.43)
[2017-11-16] MEDS ORDERED: FOLIC ACID 1 MG, MULTIVITAMINS INJ 10 ML, THIAMINE HCL 100 MG in NA CHLORIDE 0.9% 1,000 ML IV SCH (09:00)
--- NOTE | 2017-11-16 09:54 | P.CNS ---
Date of Consult: 11/16/17 PC: I was asked to see this 62-year-old male in regards to his peripheral vascular disease. HPC: Patient has pain and discomfort particularly in his small toe on his right foot. Hurts him so bad he states he could hardly walk. Foot is elevated at the moment, appears viable. PMH: Peripheral artery disease, had a stent placed in the right leg in the past , apparently clotted and removed. SOC: No known allergies SYS REVIEW: Has his usual smoker's cough,(smokes 1-2 packs a day) O/E awake alert comfortable at the moment HEENT: Not jaundiced Chest: Air entry equal bilaterally ABD: Soft LOCO: Right 5th toe appears to be valuable DATA: Doppler showed monophasic blood flow IMPRESSION: Ischemic to right leg is scheduled for a arteriogram today PLAN: This patient was initially explained to me to be having impending limb loss. On workup has no evidence of any osteomyelitis, has monophasic blood flow to his right foot. He is to undergo a AE aortogram today to see if there is possibly any area for intervention.
[2017-11-16] MEDS: HEPARIN/D5W 25,000 UNIT/500 ML BAG IV SCH (11:24)
--- NOTE | 2017-11-16 12:23 | P.PN ---
Subjective Date of Service: 11/16/17 left foot numbenss and pain, no new Physical Examination - Vital Signs Temperature: 96.9 F Blood Pressure: 133/83 Pulse: 66 Respirations: 20 Pulse Ox (%): 94 - Physical Exam General: Alert, In no apparent distress HEENT: Atraumatic, PERRLA, EOMI Neck: Supple, JVD not distended Respiratory: Clear to auscultation bilaterally, Normal air movement Cardiovascular: Regular rate/rhythm, Normal S1 S2 Gastrointestinal: Normal bowel sounds, No tenderness Musculoskeletal: No tenderness Integumentary: No rashes Neurological: Normal speech, Normal tone, Normal affect Lymphatics: No axilla or inguinal lymphadenopathy - Studies Medications List Reviewed: Yes Assessment And Plan - Current Problems (Diagnosis) (1) Atherosclerosis of right lower extremity Current Visit: Yes Status: Chronic Qualifiers: Peripheral atherosclerosis artery type: [place] artery Peripheral atherosclerosis clinical manifestation: with intermittent claudication Qualified Code(s): I70.211 - Atherosclerosis of [place] arteries of extremities with intermittent claudication, right leg (2) Chronic anticoagulation Onset Date: 03/02/16 Current Visit: Yes Status: Chronic (3) Chronic renal failure Onset Date: 03/23/16 Current Visit: Yes Status: Chronic Qualifiers: Chronic kidney disease stage: stage 3 (moderate) Qualified Code(s): N18.3 - Chronic kidney disease, stage 3 (moderate) (4) History of DVT (deep vein thrombosis) Current Visit: Yes Status: Chronic - Plan --CT angio today possible stenting --Cont thers and NAC prior to CT --DVT prphylaxis --Dr Valente is consulted
[2017-11-16] MEDS ORDERED: LIDOCAINE 1% MPF 2 ML AMPULE ONE (12:44)
[2017-11-16] MEDS ORDERED: HEPA 1000U/500MLS 2,000 UNIT/1,000 ML BAG IV ONE (12:44)
[2017-11-16] MEDS ORDERED: VANCOMYCIN 1.5 GM in NA CHLORIDE 0.9% 500 ML IVPB SCH (13:00)
[2017-11-16] MEDS ORDERED: NA CHLORIDE 0.9% 500 ML ONE (13:12)
[2017-11-16] MEDS ORDERED: FENTANYL CITR 100 MCG/2 ML ONE (13:17)
[2017-11-16] MEDS ORDERED: MIDAZOLAM HCL 2 MG/2 ML INJ ONE ×2 (13:17→13:24)
[2017-11-16] MEDS ORDERED: ATROPINE SULF 1 MG/10 ML SYR IV ONE (13:17)
[2017-11-16] MEDS ORDERED: HEPARIN 5000 UNIT/ML 1 ML VIAL ONE (13:18)
[2017-11-16 17:48] VITALS: TEMP 96.6
[2017-11-16 18:16] VITALS: BP 128/70; O2SAT 99
--- NOTE | 2017-11-16 19:53 | OP ---
Surgeon: Casimiro Epperson MD Addendum: Procedure In Detail: The patient was brought to the cardiac cath lab radiology technician in a fasting state, prepared an d draped in usual sterile fashion. Sedated with Versed and fentanyl. The left femoral artery was us ed as an approach. We were able to enter the artery using an 18-gauge needle, short J-wire, modified Seldinger technique, 4-Korean sheath. We were able to use a pigtail catheter and advanced it into t he aorta above the old stents. A single injection was made. 70 cc of contrast were used. Runoffs w ere done. It was followed all the way down to mid calf bilaterally. Then after this, it was decided that it was impossible to attempt to stent open the right SFA and that if the right SFA could not be bypassed, there was no other revascularization option and it was elected to stop the case here and c dianault a vascular surgeon. The pigtail catheter was removed. An attempt was made to deploy the Jerrica o-Seal device, but it was impossible and so the arteriotomy was closed using manual pressure. Estimated Blood Loss: 30 cc. Complications: None. RODEIRCK/EUGENIE Voice ID: [id number] Report ID: [id number]
--- NOTE | 2017-11-16 20:08 | OP ---
Surgeon: Casimiro Epperson MD Identification: A 62-year-old man. Procedure: Abdominal angiogram with runoffs. There was no [facility] [place] done or attempted. Findings: The patient has a completely occluded right superficial femoral artery. The very distal p art of the right SFA reconstitutes after more than a 20 cm area of no flow, no contrast. The flow in the popliteal artery is very slow and appears to be nonpulsatile and arises from the right profunda femoris through microscopic collaterals. The left SFA has a 60-70% stenosis and the left anterior ti bial artery is occluded. The aorta has a stent in its portion just distal to the renal arteries. It is a circumferential stent. There is about a 1 cm spot that is unstented and then bilateral kissing stents extend from the common femoral artery up into the aorta bilaterally. They are widely patent. There is good flow on both sides. We do not see an internal iliac on the right, on the left it is diffusely diseased. Both common femoral arteries distal to the stents are moderately diseased. No s tenosis. RODERICK/EUGENIE Voice ID: [id number] Report ID: [id number]
== END 2017-11-16 19:58 | disposition short-term general hospital (02) | DRG 300 ==
LOC: ER 09:45 → ERHOLD 11:17 → 2ND 13:25
PROVIDERS: ADMIT Family Medicine; ATTEND Internal Medicine Hematology & Oncology
PROC: B41D1ZZ Fluoroscopy of Aorta and Bilateral Lower Extremity Arteries using Low Osmolar Contrast (ICD-10-PCS; principal; 2017-11-16)
DX: I70.211 Atherosclerosis of native arteries of extremities with intermittent claudication, right leg (principal); L03.115 Cellulitis of right lower limb; Z79.01 Long term (current) use of anticoagulants; N18.3 Chronic kidney disease, stage 3 (moderate); Z86.718 Personal history of other venous thrombosis and embolism; F17.200 Nicotine dependence, unspecified, uncomplicated; I12.9 Hypertensive chronic kidney disease with stage 1 through stage 4 chronic kidney disease, or unspecified chronic kidney disease; F10.20 Alcohol dependence, uncomplicated; F17.210 Nicotine dependence, cigarettes, uncomplicated
CPT/HCPCS: 36415; 71045; 75630; 80048; 80076; 82550; 82553; 83735; 83880; 84484; 85025; 85610; 85652; 85730; 93005; 93923; 94760; 96365; 99285; C1893; J1644; J2001; J2250; J2543; J3010; J3370; J3411; J7030

== ENCOUNTER 2018-01-23 10:04 | Emergency (ER) | payer OTHER ==
--- OUTSIDE RECORDS SUMMARY | 2018-01-23 10:07 | XMS REPORT ---
:1955 [facility] Address [address] [place] [address] Care Team Providers Name Role Phone HUMZA OCONNOR Unavailable Unavailable Problems This patient has no known problems. Allergies, Adverse Reactions, Alerts This patient has no known allergies or adverse reactions. Medications This patient has no known medications. Results Test Description Test Time Test Comments Text Results Atomic Results Result Comments TISSUE EXAM 2017-11-21 14:59:00 Surgical Pathology Report Case: [id number] Authorizing Provider: Humza Oconnor MD Collected: 11/17/2017 0937 Ordering Location: [facility] CV Recovery Room 2 Received: 11/17/2017 1003 Pathologist: Vince Tobias MD Specimen: Plaque, right femoral plaque ARTERY, RIGHT FEMORAL, THROMBECTOMY:FIBRIN THROMBUSFIBROVASCULAR AND FIBROADIPOSE TISSUE Signing Pathologist Direct Phone Line: [phone] signed by Vince Tobias MD on 11/21/2017 at 2:59 [id number] femoral plaqueReceived in saline labeled "plaque", description "right femoral plaque" are four irregular, caban-white to yellow-rose, rubbery fragments of plaque-like material measuring 3.0 x 2.5 x 0.3 cm in aggregate. sectioning reveals no discrete masses. Gyn Physician sections are submitted in cassette A1. DB/ew Performed BASIC METABOLIC PANEL 2017-11-21 06:17:00 Test Item Value Reference Range Comments SODIUM (BEAKER) (test 137 meq/L 136-145 njkf=458) POTASSIUM (BEAKER) (test 4.0 meq/L 3.5-5.1 zgxd=155) CHLORIDE (BEAKER) (test 108 meq/L 98-107 smui=080) CO2 (BEAKER) (test ivzd=857) 22 meq/L 22-29 BLOOD UREA NITROGEN (BEAKER) 19 mg/dL 7-21 (test cokz=661) CREATININE (BEAKER) (test 1.54 mg/dL 0.57-1.25 nmcx=689) GLUCOSE RANDOM (BEAKER) 99 mg/dL 70-105 (test bydg=989) CALCIUM (BEAKER) (test 8.7 mg/dL 8.4-10.2 nved=188) EGFR (BEAKER) (test 46 mL/min/1.73 sq m ESTIMATED GFR IS NOT pgqy=3144) ACCURATE CREATININE CLEARANCE IN PREDICTING GLOMERULAR FILTRATION RATE. ESTIMATED GFR IS NOT APPLICABLE FOR DIALYSIS PATIENTS. CBC (HEMOGRAM ONLY)2017-11-21 05:21:00 Test Item Value Reference Range Comments WHITE BLOOD CELL COUNT (BEAKER) (test ewuc=889) 8.6 K/ L 3.5-10.5 RED BLOOD CELL COUNT (BEAKER) (test ozmq=825) 4.33 M/ L 4.63-6.08 HEMOGLOBIN (BEAKER) (test oowq=717) 14.1 GM/DL 13.7-17.5 HEMATOCRIT (BEAKER) (test pzqf=788) 43.3 % 40.1-51.0 MEAN CORPUSCULAR VOLUME (BEAKER) (test inmc=822) 100.0 fL 79.0-92.2 MEAN CORPUSCULAR HEMOGLOBIN (BEAKER) (test 32.6 pg 25.7-32.2 loqe=268) MEAN CORPUSCULAR HEMOGLOBIN CONC (BEAKER) (test 32.6 GM/DL 32.3-36.5 akep=864) RED CELL DISTRIBUTION WIDTH (BEAKER) (test 15.2 % 11.6-14.4 tukz=311) PLATELET COUNT (BEAKER) (test fuqa=248) 173 K/CU MM 150-450 MEAN PLATELET VOLUME (BEAKER) (test zway=933) 9.7 fL 9.4-12.4 NUCLEATED RED BLOOD CELLS (BEAKER) (test 0 /100 WBC 0-0 xyrk=434) BASIC METABOLIC [id number] 10:29:00 Test Item Value Reference Range Comments SODIUM (BEAKER) (test 138 meq/L 136-145 anzi=981) POTASSIUM (BEAKER) (test 4.0 meq/L 3.5-5.1 ieiz=182) CHLORIDE (BEAKER) (test 109 meq/L 98-107 hzdb=875) CO2 (BEAKER) (test 21 meq/L 22-29 xopf=029) BLOOD UREA NITROGEN 15 mg/dL 7-21 (BEAKER) (test avbc=450) CREATININE (BEAKER) (test 1.60 mg/dL 0.57-1.25 mwoh=241) GLUCOSE RANDOM (BEAKER) 101 mg/dL 70-105 (test fwbc=087) CALCIUM (BEAKER) (test 8.7 mg/dL 8.4-10.2 zpwk=185) EGFR (BEAKER) (test 44 mL/min/1.73 sq m ESTIMATED GFR IS NOT eama=5341) ACCURATE CREATININE CLEARANCE IN PREDICTING GLOMERULAR FILTRATION RATE. ESTIMATED GFR IS NOT APPLICABLE FOR DIALYSIS PATIENTS. LIPID [id number] 04:26:00 Test Item Value Reference Range Comments TRIGLYCERIDES (BEAKER) (test znrv=768) 119 mg/dL CHOLESTEROL (BEAKER) (test ebct=408) 123 mg/dL HDL CHOLESTEROL (BEAKER) (test yglu=219) 26 mg/dL LDL CHOLESTEROL CALCULATED (BEAKER) (test 73 mg/dL hpcj=412) Triglyceride Reference Range: Low Risk <150 Borderline 150- 199 High Risk 200-499 Very High Risk >=500Cholesterol Reference Range: Low Risk <200 Borderline 200-239 High Risk > 240HDL Cholesterol Reference Range: Low Risk >=60 High Risk <40LDL Cholesterol Reference Range: Optimal <100 Near Optimal 100-129 Borderline 130-159 High 160-189 Very High >=[id number] 05:39:00 Test Item Value Reference Range Comments MAGNESIUM (BEAKER) (test jttz=069) 2.0 mg/dL 1.6-2.6 BASIC METABOLIC [id number] 05:39:00 Test Item Value Reference Range Comments SODIUM (BEAKER) (test 137 meq/L 136-145 ypro=834) POTASSIUM (BEAKER) (test 4.0 meq/L 3.5-5.1 okvq=898) CHLORIDE (BEAKER) (test 109 meq/L 98-107 wpps=995) CO2 (BEAKER) (test 22 meq/L 22-29 pyko=258) BLOOD UREA NITROGEN 16 mg/dL 7-21 (BEAKER) (test uzbi=184) CREATININE (BEAKER) (test 1.76 mg/dL 0.57-1.25 slan=482) GLUCOSE RANDOM (BEAKER) 101 mg/dL 70-105 (test kpwz=400) CALCIUM (BEAKER) (test 8.5 mg/dL 8.4-10.2 vyuu=405) EGFR (BEAKER) (test 39 mL/min/1.73 sq m ESTIMATED GFR IS NOT hian=3750) ACCURATE CREATININE CLEARANCE IN PREDICTING GLOMERULAR FILTRATION RATE. ESTIMATED GFR IS NOT APPLICABLE FOR DIALYSIS PATIENTS. CBC W/PLT COUNT & AUTO [id number] 05:04:00 Test Item Value Reference Range Comments WHITE BLOOD CELL COUNT (BEAKER) (test vuuo=828) 8.2 K/ L 3.5-10.5 RED BLOOD CELL COUNT (BEAKER) (test xqbd=332) 4.08 M/ L 4.63-6.08 HEMOGLOBIN (BEAKER) (test wtbj=116) 13.1 GM/DL 13.7-17.5 HEMATOCRIT (BEAKER) (test yilx=108) 40.2 % 40.1-51.0 MEAN CORPUSCULAR VOLUME (BEAKER) (test opat=303) 98.5 fL 79.0-92.2 MEAN CORPUSCULAR HEMOGLOBIN (BEAKER) (test 32.1 pg 25.7-32.2 djao=670) MEAN CORPUSCULAR HEMOGLOBIN CONC (BEAKER) (test 32.6 GM/DL 32.3-36.5 ejvg=669) RED CELL DISTRIBUTION WIDTH (BEAKER) (test 15.0 % 11.6-14.4 eplv=264) PLATELET COUNT (BEAKER) (test guww=954) 153 K/CU MM 150-450 MEAN PLATELET VOLUME (BEAKER) (test xvni=996) 9.7 fL 9.4-12.4 NUCLEATED RED BLOOD CELLS (BEAKER) (test 0 /100 WBC 0-0 jdmq=761) NEUTROPHILS RELATIVE PERCENT (BEAKER) (test 68 % hqpl=511) LYMPHOCYTES RELATIVE PERCENT (BEAKER) (test 19 % smad=290) MONOCYTES RELATIVE PERCENT (BEAKER) (test 9 % mmbs=968) EOSINOPHILS RELATIVE PERCENT (BEAKER) (test 4 % jvso=383) BASOPHILS RELATIVE PERCENT (BEAKER) (test 0 % jgtx=340) NEUTROPHILS ABSOLUTE COUNT (BEAKER) (test 5.57 K/ L 1.78-5.38 ojon=110) LYMPHOCYTES ABSOLUTE COUNT (BEAKER) (test 1.60 K/ L 1.32-3.57 ocke=450) MONOCYTES ABSOLUTE COUNT (BEAKER) (test 0.70 K/ L 0.30-0.82 zeod=643) EOSINOPHILS ABSOLUTE COUNT (BEAKER) (test 0.30 K/ L 0.04-0.54 jqjk=399) BASOPHILS ABSOLUTE COUNT (BEAKER) (test 0.03 K/ L 0.01-0.08 vcnf=772) IMMATURE GRANULOCYTES-RELATIVE PERCENT (BEAKER) 1 % 0-1 (test prwq=8873) [id number] 07:37:00 Test Item Value Reference Range Comments MAGNESIUM (BEAKER) (test gnfj=959) 2.0 mg/dL 1.6-2.6 BASIC METABOLIC [id number] 07:37:00 Test Item Value Reference Range Comments SODIUM (BEAKER) (test 136 meq/L 136-145 iogw=025) POTASSIUM (BEAKER) (test 4.4 meq/L 3.5-5.1 zdld=118) CHLORIDE (BEAKER) (test 106 meq/L 98-107 cmli=177) CO2 (BEAKER) (test 22 meq/L 22-29 iten=697) BLOOD UREA NITROGEN 15 mg/dL 7-21 (BEAKER) (test uvxv=433) CREATININE (BEAKER) (test 1.59 mg/dL 0.57-1.25 jqbr=438) GLUCOSE RANDOM (BEAKER) 99 mg/dL 70-105 (test elxb=251) CALCIUM (BEAKER) (test 8.7 mg/dL 8.4-10.2 izei=090) EGFR (BEAKER) (test 44 mL/min/1.73 sq m ESTIMATED GFR IS NOT zxka=8468) ACCURATE CREATININE CLEARANCE IN PREDICTING GLOMERULAR FILTRATION RATE. ESTIMATED GFR IS NOT APPLICABLE FOR DIALYSIS PATIENTS. BASIC METABOLIC [id number] 11:14:00 Test Item Value Reference Range Comments SODIUM (BEAKER) (test 139 meq/L 136-145 xnoq=489) POTASSIUM (BEAKER) (test 4.5 meq/L 3.5-5.1 kmbf=232) CHLORIDE (BEAKER) (test 111 meq/L 98-107 iota=747) CO2 (BEAKER) (test 21 meq/L 22-29 zezp=339) BLOOD UREA NITROGEN 12 mg/dL 7-21 (BEAKER) (test noox=468) CREATININE (BEAKER) (test 1.58 mg/dL 0.57-1.25 hrww=416) GLUCOSE RANDOM (BEAKER) 103 mg/dL 70-105 (test kpgy=373) CALCIUM (BEAKER) (test 9.2 mg/dL 8.4-10.2 orgn=750) EGFR (BEAKER) (test 45 mL/min/1.73 sq m ESTIMATED GFR IS NOT xqzt=1810) ACCURATE CREATININE CLEARANCE IN PREDICTING GLOMERULAR FILTRATION RATE. ESTIMATED GFR IS NOT APPLICABLE FOR DIALYSIS PATIENTS. CBC W/PLT COUNT & AUTO [id number] 10:50:00 Test Item Value Reference Range Comments WHITE BLOOD CELL COUNT (BEAKER) (test itpp=009) 8.7 K/ L 3.5-10.5 RED BLOOD CELL COUNT (BEAKER) (test fldr=421) 4.12 M/ L 4.63-6.08 HEMOGLOBIN (BEAKER) (test sbys=955) 13.4 GM/DL 13.7-17.5 HEMATOCRIT (BEAKER) (test mvue=023) 41.5 % 40.1-51.0 MEAN CORPUSCULAR VOLUME (BEAKER) (test vfut=876) 100.7 fL 79.0-92.2 MEAN CORPUSCULAR HEMOGLOBIN (BEAKER) (test 32.5 pg 25.7-32.2 imor=073) MEAN CORPUSCULAR HEMOGLOBIN CONC (BEAKER) (test 32.3 GM/DL 32.3-36.5 rnip=150) RED CELL DISTRIBUTION WIDTH (BEAKER) (test 15.1 % 11.6-14.4 vsrz=383) PLATELET COUNT (BEAKER) (test oyuf=011) 231 K/CU MM 150-450 MEAN PLATELET VOLUME (BEAKER) (test mxgw=022) 8.9 fL 9.4-12.4 NUCLEATED RED BLOOD CELLS (BEAKER) (test 0 /100 WBC 0-0 rlyj=046) NEUTROPHILS RELATIVE PERCENT (BEAKER) (test 70 % tkys=110) LYMPHOCYTES RELATIVE PERCENT (BEAKER) (test 21 % epmf=014) MONOCYTES RELATIVE PERCENT (BEAKER) (test 6 % lejx=970) EOSINOPHILS RELATIVE PERCENT (BEAKER) (test 3 % plis=316) BASOPHILS RELATIVE PERCENT (BEAKER) (test 0 % rakn=387) NEUTROPHILS ABSOLUTE COUNT (BEAKER) (test 6.04 K/ L 1.78-5.38 jwop=960) LYMPHOCYTES ABSOLUTE COUNT (BEAKER) (test 1.80 K/ L 1.32-3.57 vvpa=365) MONOCYTES ABSOLUTE COUNT (BEAKER) (test 0.51 K/ L 0.30-0.82 huds=567) EOSINOPHILS ABSOLUTE COUNT (BEAKER) (test 0.24 K/ L 0.04-0.54 vpbv=947) BASOPHILS ABSOLUTE COUNT (BEAKER) (test 0.02 K/ L 0.01-0.08 likv=548) IMMATURE GRANULOCYTES-RELATIVE PERCENT (BEAKER) 1 % 0-1 (test egiz=7941) GLUCOSE-STAT [id number] 10:35:00 Test Item Value Reference Range Comments GLUCOSE RANDOM (BEAKER) (test swku=496) 99 mg/dL 70-110 Only if arterial line in place and/or patient on ventilatorSODIUM NA-STAT [id number] 10:35:00 Test Item Value Reference Range Comments SODIUM (BEAKER) (test ythd=099) 137 meq/L 135-148 Only if arterial line in place and/or patient on ventilatorPOTASSIUM-STAT [id number] 10:35:00 Test Item Value Reference Range Comments POTASSIUM (BEAKER) (test owbq=582) 4.4 meq/L 3.6-5.5 Only if arterial line in place and/or patient on ventilatorHGB/HCT (H&H) - STAT [id number] 10:35:00 Test Item Value Reference Range Comments HEMOGLOBIN (BEAKER) (test ybji=163) 14.2 g/dL 13.0-16.8 HEMATOCRIT (BEAKER) (test lnsd=214) 42.0 % 40.0-50.0 Only if arterial line in place and/or patient on ventilatorBLOOD GAS, [id number] 10:35:00 Test Item Value Reference Range Comments PH ARTERIAL (BEAKER) (test wbjm=492) 7.37 7.35-7.45 PCO2 ARTERIAL (BEAKER) (test obme=999) 37 mmHg 35-45 PO2 ARTERIAL (BEAKER) (test jjsl=529) 132 mmHg 80-90 O2 SATURATION ARTERIAL (BEAKER) (test xksj=671) 98.6 % 96.0-97.0 HCO3 ARTERIAL (BEAKER) (test hwie=921) 21 mmol/L 21-29 BASE EXCESS ARTERIAL (BEAKER) (test gbcj=273) -4.0 mmol/L -2.0-3.0 PATIENT TEMPERATURE (BEAKER) (test bfus=6940) 36.4 C FIO2 (BEAKER) (test ikea=8111) 48.0 % Only if arterial line in place and/or patient on ventilatorBLOOD GAS, [id number] 09:03:00 Test Item Value Reference Range Comments PH ARTERIAL (BEAKER) (test qnfa=016) 7.36 7.35-7.45 PCO2 ARTERIAL (BEAKER) (test nlsc=572) 40 mmHg 35-45 PO2 ARTERIAL (BEAKER) (test bevr=464) 153 mmHg 80-90 O2 SATURATION ARTERIAL (BEAKER) (test ootm=527) 99.0 % 96.0-97.0 HCO3 ARTERIAL (BEAKER) (test zopp=730) 23 mmol/L 21-29 BASE EXCESS ARTERIAL (BEAKER) (test xumj=582) -3.1 mmol/L -2.0-3.0 PATIENT TEMPERATURE (BEAKER) (test czkn=0668) 35.3 C FIO2 (BEAKER) (test hxnb=4761) 60.0 % CALCIUM, [id number] 09:03:00 Test Item Value Reference Range Comments CALCIUM IONIZED (BEAKER) (test sbyu=499) 1.06 mmol/L 1.12-1.27 PH, BLOOD (BEAKER) (test ywqp=8241) 7.34 GLUCOSE-STAT [id number] 09:02:00 Test Item Value Reference Range Comments GLUCOSE RANDOM (BEAKER) (test scqi=869) 106 mg/dL 70-110 SODIUM NA-STAT [id number] 09:02:00 Test Item Value Reference Range Comments SODIUM (BEAKER) (test yezo=119) 136 meq/L 135-148 POTASSIUM-STAT [id number] 09:02:00 Test Item Value Reference Range Comments POTASSIUM (BEAKER) (test vels=429) 4.2 meq/L 3.6-5.5 HGB/HCT (H&H) - STAT [id number] 09:02:00 Test Item Value Reference Range Comments HEMOGLOBIN (BEAKER) (test kxfj=060) 13.5 g/dL 13.0-16.8 HEMATOCRIT (BEAKER) (test shlq=079) 40.0 % 40.0-50.0 URINALYSIS W/ [id number] 07:46:00 Test Item Value Reference Range Comments COLOR (BEAKER) (test okdf=632) Light Yellow CLARITY (BEAKER) (test xqeo=439) Clear SPECIFIC GRAVITY UA (BEAKER) (test erfn=497) 1.009 1.001-1.035 PH UA (BEAKER) (test lqlw=391) 6.0 5.0-8.0 PROTEIN UA (BEAKER) (test dayb=170) Negative Negative GLUCOSE UA (BEAKER) (test vhsj=821) Negative Negative KETONES UA (BEAKER) (test ufib=816) Negative Negative BILIRUBIN UA (BEAKER) (test jwlq=674) Negative Negative BLOOD UA (BEAKER) (test dsuu=710) Negative Negative NITRITE UA (BEAKER) (test vbvp=994) Negative Negative LEUKOCYTE ESTERASE UA (BEAKER) (test msre=413) Negative Negative UROBILINOGEN UA (BEAKER) (test jbwf=338) 0.2 mg/dL 0.2-1.0 RBC UA (BEAKER) (test ymjj=048) 1 /HPF WBC UA (BEAKER) (test dfjk=463) < /HPF SOURCE(BEAKER) (test etjr=3215) Urine, Voided [id number] 04:52:00 Test Item Value Reference Range Comments MAGNESIUM (BEAKER) (test dnfl=482) 2.1 mg/dL 1.6-2.6 COMPREHENSIVE METABOLIC [id number] 04:52:00 Test Item Value Reference Range Comments TOTAL PROTEIN (BEAKER) 6.2 gm/dL 6.0-8.3 (test yrha=329) ALBUMIN (BEAKER) (test 3.6 g/dL 3.5-5.0 exrh=2806) ALKALINE PHOSPHATASE 83 U/L 40-150 (BEAKER) (test qxri=122) BILIRUBIN TOTAL (BEAKER) 0.4 mg/dL 0.2-1.2 (test tgqf=512) SODIUM (BEAKER) (test 137 meq/L 136-145 pnsh=092) POTASSIUM (BEAKER) (test 4.4 meq/L 3.5-5.1 acwo=797) CHLORIDE (BEAKER) (test 108 meq/L 98-107 eowj=549) CO2 (BEAKER) (test 22 meq/L 22-29 xuxa=279) BLOOD UREA NITROGEN 14 mg/dL 7-21 (BEAKER) (test zwzc=238) CREATININE (BEAKER) (test 1.61 mg/dL 0.57-1.25 qdaz=824) GLUCOSE RANDOM (BEAKER) 89 mg/dL 70-105 (test rwbb=033) CALCIUM (BEAKER) (test 8.9 mg/dL 8.4-10.2 ygsi=417) AST (SGOT) (BEAKER) (test 18 U/L 5-34 qwmz=631) ALT (SGPT) (BEAKER) (test 15 U/L 6-55 anft=586) EGFR (BEAKER) (test 44 mL/min/1.73 sq m ESTIMATED GFR IS NOT wizm=9776) ACCURATE CREATININE CLEARANCE IN PREDICTING GLOMERULAR FILTRATION RATE. ESTIMATED GFR IS NOT APPLICABLE FOR DIALYSIS PATIENTS. [id number] 04:50:00 Test Item Value Reference Range Comments PARTIAL THROMBOPLASTIN TIME (BEAKER) (test 27.8 seconds 22.5-36.0 uuki=787) PROTHROMBIN [id number] 04:49:00 Test Item Value Reference Range Comments PROTIME (BEAKER) (test dbrb=924) 13.0 seconds 11.7-14.7 INR (BEAKER) (test havc=619) 1.0 <=5.9 RECOMMENDED COUMADIN/WARFARIN INR THERAPY RANGESSTANDARD DOSE: 2.0 - 3.0 Includes: PROPHYLAXIS forvenous thrombosis, systemic embolization; TREATMENT for venous thrombosis and/or pulmonary embolus.HIGH RISK: Target INR is 2.5-3.5 for patients with mechanical heart valves.CBC W/PLT COUNT & AUTO [id number] 04:34:00 Test Item Value Reference Range Comments WHITE BLOOD CELL COUNT (BEAKER) (test psnx=992) 7.6 K/ L 3.5-10.5 RED BLOOD CELL COUNT (BEAKER) (test rsmh=375) 4.47 M/ L 4.63-6.08 HEMOGLOBIN (BEAKER) (test julp=337) 14.4 GM/DL 13.7-17.5 HEMATOCRIT (BEAKER) (test tygz=503) 44.2 % 40.1-51.0 MEAN CORPUSCULAR VOLUME (BEAKER) (test lxzo=035) 98.9 fL 79.0-92.2 MEAN CORPUSCULAR HEMOGLOBIN (BEAKER) (test 32.2 pg 25.7-32.2 dexa=019) MEAN CORPUSCULAR HEMOGLOBIN CONC (BEAKER) (test 32.6 GM/DL 32.3-36.5 jjuw=799) RED CELL DISTRIBUTION WIDTH (BEAKER) (test 14.8 % 11.6-14.4 hqcy=537) PLATELET COUNT (BEAKER) (test kvfr=298) 244 K/CU MM 150-450 MEAN PLATELET VOLUME (BEAKER) (test dcvk=785) 9.2 fL 9.4-12.4 NUCLEATED RED BLOOD CELLS (BEAKER) (test 0 /100 WBC 0-0 cdly=835) NEUTROPHILS RELATIVE PERCENT (BEAKER) (test 68 % diei=106) LYMPHOCYTES RELATIVE PERCENT (BEAKER) (test 20 % vvqb=080) MONOCYTES RELATIVE PERCENT (BEAKER) (test 7 % ytlf=610) EOSINOPHILS RELATIVE PERCENT (BEAKER) (test 5 % xozr=624) BASOPHILS RELATIVE PERCENT (BEAKER) (test 0 % rwmm=499) NEUTROPHILS ABSOLUTE COUNT (BEAKER) (test 5.11 K/ L 1.78-5.38 fzfx=881) LYMPHOCYTES ABSOLUTE COUNT (BEAKER) (test 1.54 K/ L 1.32-3.57 moti=080) MONOCYTES ABSOLUTE COUNT (BEAKER) (test 0.51 K/ L 0.30-0.82 mbto=878) EOSINOPHILS ABSOLUTE COUNT (BEAKER) (test 0.36 K/ L 0.04-0.54 nryz=153) BASOPHILS ABSOLUTE COUNT (BEAKER) (test 0.03 K/ L 0.01-0.08 kvdt=483) IMMATURE GRANULOCYTES-RELATIVE PERCENT (BEAKER) 0 % 0-1 (test nckz=5764) RAD, CHEST, 1 VIEW, NON [id number] 22:42:00Reason for exam:->pre op evalShould this be performed at the bedside?->YesFINAL REPORT INDICATION: pre op eval COMPARISON: None TECHNIQUE: Single frontal view of the chest. FINDINGS: Lungs and pleura: Clear lungs. No effusion.Heart and mediastinum: Normal heart size. Unremarkable mediastinal contours.Osseous structures: No acute abnormality.Other: None. IMPRESSION: No acute intrathoracic abnormality. Signed: JR Horta Robert MDReport Verified Date/Time: 11/16/2017 22:42:55 Reading Location: [address] Reading Room
[2018-01-23] MEDS ORDERED: MORPHINE 4 MG/ML SYR ONE (10:20)
[2018-01-23] MEDS ORDERED: NA CHLORIDE 0.9% 1,000 ML ONE (10:21)
[2018-01-23] MEDS ORDERED: ONDANSETRON 4 MG/2 ML VIAL ONE (10:21)
--- NOTE | 2018-01-23 10:28 | EDPHYS ---
Physician Documentation [facility] Name: Jaswinder Roa Age: 62 yrs Sex: Male : 1955 Arrival Date: 01/23/2018 Time: 10:05 Bed 24 Private MD: ED Physician Luciana Neff HPI: 01/23 10:07 This 62 yrs old Male presents to ER via Unassigned with complaints of right ma2 leg pain. 10:18 The patient presents with pain, that is acute. The complaints affect the lateral aspect ma2 of right knee, lateral aspect of right calf, right ankle and lateral aspect of right foot. Onset: The symptoms/episode began/occurred suddenly, 1 hour(s) ago. Associated signs and symptoms: Pertinent positives: numbness, weakness, Pertinent negatives calf tenderness, fever, nausea, rash, swelling, vomiting, warmth. Severity of symptoms: At their worst the symptoms were severe, in the emergency department the symptoms are unchanged. The patient has experienced a previous episode, October 2017 had bypass graft . hx of HTN on lisinopril and plavix here with right acute limb ischemia started 1 hour ago . Historical: - Allergies: 11: No Known Allergies; aj1 - Home Meds: 11:01 lisinopril 5 mg Oral tab 1 tab once daily [Active]; Plavix 75 mg Oral tab 1 tab once aj1 daily [Active]; aspirin 81 mg Oral chew 1 tab once daily [Active]; - PMHx: 11:01 DVT; Hypertension; aj1 - PSHx: 11:01 embolectomy of blood clot in right leg; aj1 - Immunization history:: Adult Immunizations up to date. - Social history:: Patient/guardian denies using alcohol, street drugs, The patient lives with family, Smoking status: Patient uses tobacco products, smokes one pack cigarettes per day. - Family history:: not pertinent. - Ebola Screening: : Patient denies travel to an Ebola-affected area in the 21 days before illness onset. ROS: 10:18 MS/extremity: Positive for pain, tingling, Negative for abrasion, contusion, deformity, ma2 ecchymosis, warmth. 10:18 All other systems are negative. 10:27 Neck: Negative for injury, pain, and swelling. ma2 Exam: 10:18 Head/Face: Normocephalic, atraumatic. Eyes: Pupils equal round and reactive to light, ma2 extra-ocular motions intact. Lids and lashes normal. Conjunctiva and sclera are non-icteric and not injected. Cornea within normal limits. Periorbital areas with no swelling, redness, or edema. Chest/axilla: Normal chest wall appearance and motion. Nontender with no deformity. No lesions are appreciated. Cardiovascular: Regular rate and rhythm with a normal S1 and S2. No gallops, murmurs, or rubs. Normal PMI, no JVD. No pulse deficits. Respiratory: Lungs have equal breath sounds bilaterally, clear to auscultation and percussion. No rales, rhonchi or wheezes noted. No increased work of breathing, no retractions or nasal flaring. Abdomen/GI: Soft, non-tender, with normal bowel sounds. No distension or tympany. No guarding or rebound. No evidence of tenderness throughout. 10:18 Constitutional: The patient appears alert, in obvious pain. 10:18 Musculoskeletal/extremity: no PT ot DP on right, right leg is pale and cold,. Vital Signs: 10:05 BP 175 / 150; Pulse 74; Resp 18; Pulse Ox 98% on R/A; Height 6 ft. 2 in. (187.96 cm); aj1 Pain 10/10; 10:30 Weight 90.72 kg (R); ss 11:29 BP 162 / 120; Pulse 82; Resp 18; Pulse Ox 99% ; aj1 10:05 Body Mass Index 25.68 (90.72 kg, 187.96 cm) aj1 10:05 Patient is restless, leaning on his arms, tightening his arms. Patient states he is aj1 unable to relax his arm so we can take his blood pressure 11:29 Patient remains restless, unable to sit still to have blood pressure assessed aj1 MDM: 10:05 Patient medically screened. ma2 10:18 Differential diagnosis: acute limb ischemia unlikely DVT neuropathy or weakness. Data ma2 reviewed: vital signs, nurses notes. Counseling: I had a detailed discussion with the patient and/or guardian regarding: the historical points, exam findings, and any diagnostic results supporting the discharge/admit diagnosis, the presence of at least one elevated blood pressure reading (>120/80) during this emergency department visit. 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 01/23 10:07 Order name: CBC w/o diff ma2 01/23 10:07 Order name: CMP ma2 01/23 10:07 Order name: PT-INR ma2 01/23 10:07 Order name: NPO; Complete Time: 10:54 ma2 Administered Medications: 10:22 Drug: Zofran 4 mg Route: IVP; Site: right forearm; ss 10:30 Follow up: Response: No adverse reaction aj1 10:24 Drug: morphine 4 mg Route: IVP; Site: right forearm; ss 10:30 Follow up: Response: Pain is unchanged, physician notified aj1 11:30 Follow up: Response: No adverse reaction aj1 10:28 Drug: NS 0.9% 1000 ml Route: IV; Rate: 125 ml/hr; Site: right forearm; ss 11:31 Follow up: IV Status: Infusion continued upon transfer aj1 10:45 Drug: HEParin 5000 units {Co-Signature: maximino (Yamilet Rodriguez RN).} Route: IV; Rate: bolus; aj1 Site: left antecubital; 11:31 Follow up: IV Status: Completed infusion aj1 10:45 Drug: Heparin ([place] Drip) 12 units/kg/hr - (HEParin 88625 units, D5W 500 ml) aj1 {Co-Signature: maximino (Yamilet Rodriguez RN).} Route: IV; Rate: calculated rate; Site: left antecubital; 11:31 Follow up: IV Status: Infusion continued upon transfer aj1 10:45 Drug: Dilaudid 1 mg Route: IVP; Site: right forearm; aj1 11:20 Follow up: Response: No adverse reaction; Pain is unchanged, physician notified aj1 11:25 Drug: Dilaudid 1 mg Route: IVP; Site: right forearm; aj1 11:32 Follow up: Response: No adverse reaction aj1 Disposition: 01/23/18 10:[address] [facility]. Diagnosis is Arterial embolism and thrombosis. - Reason for transfer: Higher level of care. - Accepting physician is [facility]. - Condition is Critical. - Problem is new. - Symptoms are unchanged. Critical care time excluding procedures: 10:18 Critical care time: Bedside Care: 10 minutes, Consultation: 20 minutes, Family ma2 Intervention: 5 minutes. Total time: 35 minutes Signatures: Dispatcher [employer] Anna Harris RN RN aj1 Yamilet Rodriguez RN RN ss Luciana Neff MD MD ma2 Yamilet Rodriguez RN ss Corrections: (The following items were deleted from the chart) 11:34 10:27 01/23/2018 10:[address] [facility]. Diagnosis is aj1 Arterial embolism and thrombosis. Reason for transfer: Higher level of care. Accepting physician is [facility]. Condition is Critical. Problem is new. Symptoms are unchanged. ma2
--- NOTE | 2018-01-23 10:28 | ER ---
Nurse's Notes [facility] Name: Jaswinder Roa Age: 62 yrs Sex: Male : 1955 Arrival Date: 01/23/2018 Time: 10:05 Bed 24 Private MD: Diagnosis: Arterial embolism and thrombosis Presentation: 01/23 10:05 Presenting complaint: EMS states: He began having severe pain in the right leg from the aj1 knee down starting at approximately 0830 this morning. Patient states that he had a blood clot in his artery in that leg in October and had surgery to open the artery back up at that time. Patient's right leg is pale and cool to the touch. Pedal pulses are not palpable. 10:05 Transition of care: patient was not received from another setting of care. Onset of [facility] symptoms was January 23, 2018 at 08:30. Risk Assessment: Do you want to hurt yourself or someone else? Patient reports no desire to harm self or others. Initial Sepsis Screen: Does the patient meet any 2 criteria? No. Patient's initial sepsis screen is negative. Does the patient have a suspected source of infection? No. Patient's initial sepsis screen is negative. Care prior to arrival: None. 10:05 Method Of Arrival: EMS: [facility] aj1 10:47 Acuity: CHICHI 2 aj1 Triage Assessment: 10:05 General: Appears distressed, uncomfortable, Behavior is anxious, restless. Pain: aj1 Complains of pain in right leg. Historical: - Allergies: 11: No Known Allergies; aj1 - Home Meds: 11:01 lisinopril 5 mg Oral tab 1 tab once daily [Active]; Plavix 75 mg Oral tab 1 tab once aj1 daily [Active]; aspirin 81 mg Oral chew 1 tab once daily [Active]; - PMHx: 11: DVT; Hypertension; aj1 - PSHx: 11:01 embolectomy of blood clot in right leg; aj1 - Immunization history:: Adult Immunizations up to date. - Social history:: Patient/guardian denies using alcohol, street drugs, The patient lives with family, Smoking status: Patient uses tobacco products, smokes one pack cigarettes per day. - Family history:: not pertinent. - Ebola Screening: : Patient denies travel to an Ebola-affected area in the 21 days before illness onset. Screenin:05 Abuse screen: Denies threats or abuse. Denies injuries from another. Nutritional aj1 screening: No deficits noted. Tuberculosis screening: No symptoms or risk factors identified. 11:09 Fall Risk No fall in past 12 months (0 pts). No secondary diagnosis (0 pts). IV access aj1 (20 points). Ambulatory Aid- None/Bed Rest/Nurse Assist (0 pts). Gait- Impaired (20 pts.). Mental Status- Oriented to own ability (0 pts). Total Bridges Fall Scale indicates Low Risk Score (25-44 pts). Assessment: 10:05 General: Appears distressed, uncomfortable, Behavior is anxious, restless. Pain: aj1 Complains of pain in right leg Pain currently is 10 out of 10 on a pain scale. Neuro: Level of Consciousness is awake, alert, obeys commands, Oriented to person, place, time, situation, Speech is normal, Reports numbness from the right knee down. Cardiovascular: Denies chest pain. Respiratory: Airway is patent Respiratory effort is even, unlabored, Respiratory pattern is regular, symmetrical. GI: No signs and/or symptoms were reported involving the gastrointestinal system. : No signs and/or symptoms were reported regarding the genitourinary system. EENT: No signs and/or symptoms were reported regarding the EENT system. Derm: right leg is pale and cool to the touch, pedal pulse are not palpable. Patient complains of severe pain in the right leg. Musculoskeletal: Range of motion: intact in all extremities. 10:40 Reassessment: Patient states that the morphine has not helped his pain at all. Notified aj1 Dr. Almeida, order received. 10:50 Reassessment: Report given to Chang Lopez RN at [facility] via telephone. aj1 11:00 Reassessment: Patient's shirt, blue jeans, shoes, socks, wallet and flip phone placed ss in patient belonging bag as requested. awaiting for EMS transportation. 11:20 Reassessment: Patient reports that he is continuing to have severe pain. Patient aj1 remains restless. Right leg remains pale and cool to the touch. Notified Dr. Almeida of patient's continued pain. Order received. 11:27 Reassessment: Verbal reports given to [facility]. aj1 Vital Signs: 10:05 BP 175 / 150; Pulse 74; Resp 18; Pulse Ox 98% on R/A; Height 6 ft. 2 in. (187.96 cm); aj1 Pain 10/10; 10:30 Weight 90.72 kg (R); ss 11:29 BP 162 / 120; Pulse 82; Resp 18; Pulse Ox 99% ; aj1 10:05 Body Mass Index 25.68 (90.72 kg, 187.96 cm) aj1 10:05 Patient is restless, leaning on his arms, tightening his arms. Patient states he is aj1 unable to relax his arm so we can take his blood pressure 11:29 Patient remains restless, unable to sit still to have blood pressure assessed aj1 ED Course: 10:05 Patient arrived in ED. bd 10:05 Luciana Neff MD is Attending Physician. ma2 10:05 No provider procedures requiring assistance completed. aj1 10:05 Arm band placed on. aj1 10:07 Anna Alcala, RN is Primary Nurse. aj1 10:15 Missed attempt(s): 22 gauge Bleeding controlled, band aid applied, catheter tip intact. aj1 10:15 Patient has correct armband on for positive identification. Bed in low position. ss monitoring and evaluation advisor on. Pulse ox on. NIBP on. 10:27 Inserted saline lock: 22 gauge in right forearm, using aseptic technique. Blood ss collected. 10:40 Inserted saline lock: 22 gauge in left antecubital area, using aseptic technique. aj1 10:46 Oxygen administration via nasal cannula \T\ 2L/min. ss 10:47 Triage completed. aj1 11:28 Patient transferred, IV remains in place. aj1 Administered Medications: 10:22 Drug: Zofran 4 mg Route: IVP; Site: right forearm; ss 10:30 Follow up: Response: No adverse reaction aj1 10:24 Drug: morphine 4 mg Route: IVP; Site: right forearm; ss 10:30 Follow up: Response: Pain is unchanged, physician notified aj1 11:30 Follow up: Response: No adverse reaction aj1 10:28 Drug: NS 0.9% 1000 ml Route: IV; Rate: 125 ml/hr; Site: right forearm; ss 11:31 Follow up: IV Status: Infusion continued upon transfer aj1 10:45 Drug: HEParin 5000 units {Co-Signature: ss (Yamilet Rodriguez RN).} Route: IV; Rate: bolus; aj1 Site: left antecubital; 11:31 Follow up: IV Status: Completed infusion aj1 10:45 Drug: Heparin ([place] Drip) 12 units/kg/hr - (HEParin 74277 units, D5W 500 ml) aj1 {Co-Signature: maximino (Yamilet Rodriguez RN).} Route: IV; Rate: calculated rate; Site: left antecubital; 11:31 Follow up: IV Status: Infusion continued upon transfer aj1 10:45 Drug: Dilaudid 1 mg Route: IVP; Site: right forearm; aj1 11:20 Follow up: Response: No adverse reaction; Pain is unchanged, physician notified aj1 11:25 Drug: Dilaudid 1 mg Route: IVP; Site: right forearm; aj1 11:32 Follow up: Response: No adverse reaction aj1 Outcome: 10:27 ER care complete, transfer ordered by . ma2 11:32 Transferred by ground EMS to [facility]. aj1 11:32 Condition: unchanged 11:32 Discharge instructions given to patient, Instructed on the need for transfer, Demonstrated understanding of instructions. 11:34 Patient left the ED. aj1 Signatures: Dali Daniels Angela, RN RN 1 Yamilet Rodriguez RN RN ss Alzahri, Mohammad, MD MD hiFlorence stanton
[2018-01-23] MEDS ORDERED: HYDROMORPHONE HCL 1 MG/ML INJ ONE ×2 (10:33→11:20)
[2018-01-23 10:36] LABS: Hematocrit 42.8 % (39.6-49.0); MCV 92.9 fL (80-100); MPV 7.9 fL (7.6-11.3)
[2018-01-23 10:40] LABS: Protime INR 1.03
[2018-01-23] MEDS ORDERED: HEPARIN/D5W 25,000 UNIT/500 ML BAG IV ONE (10:41)
[2018-01-23] MEDS ORDERED: HEPARIN 5000 UNIT/ML 1 ML VIAL ONE (10:41)
[2018-01-23 10:55] LABS: Albumin 3.6 g/dL (3.4-5.0); Bilirubin Total 0.4 mg/dL (0.2-1.0); Potassium 3.9 mmol/L (3.5-5.1); Protein, Total 7.2 g/dL (6.4-8.2)
[2018-01-23 11:55] VITALS: BP 162/120; O2SAT 99
== END 2018-01-23 11:34 | disposition short-term general hospital (02) ==
LOC: ER 10:04
DX: I74.3 Embolism and thrombosis of arteries of the lower extremities (principal); I10 Essential (primary) hypertension; Z86.718 Personal history of other venous thrombosis and embolism; Z79.01 Long term (current) use of anticoagulants; Z79.82 Long term (current) use of aspirin; F17.210 Nicotine dependence, cigarettes, uncomplicated
CPT/HCPCS: 36415; 80053; 85027; 85610; 96365; 96375; 99285; J1170 ×2; J1644; J2405; J7030

== ENCOUNTER 2018-02-05 12:57 | Emergency (ER) | payer OTHER ==
--- OUTSIDE RECORDS SUMMARY | 2018-02-05 13:00 | XMS REPORT | Clinical Summary ---
:1955 Author Organization [facility] Address [address] [place] [address] Phone Care Team Providers Name Role Phone Unavailable Primary Care Provider Unavailable Allergies Active Allergy Reactions Severity Noted Date Comments Tramadol 11/17/2017 Intolerance to Tramadol Current Medications Prescription Sig. Disp. Refills Start Date End Date Status aspirin 81 MG Take 1 tablet 30 tablet 1 11/22/2017 11/22/2018 Active chewable tablet (81 mg total) by mouth daily. lisinopril Take 1 tablet 30 tablet 1 11/22/2017 11/22/2018 Active (PRINIVIL,ZESTRIL) (10 mg total) 10 MG tablet by mouth daily. gabapentin Take 1 90 capsule 1 01/28/2018 01/28/2019 Active (NEURONTIN) 100 MG capsule (100 capsule mg total) by mouth 3 (three) times daily. warfarin (COUMADIN) Take 1 tablet 0 01/28/2018 01/28/2019 Active 5 MG tablet (5 mg total) by mouth every evening. acetaminophen-codei Take 1 tablet 30 tablet 0 01/28/2018 02/07/2018 Active ne (TYLENOL #3) by mouth 300-30 mg per every 4 tablet (four) hours as needed for up to 10 days. Max Daily Amount: 6 tablets clopidogrel Take 1 tablet 30 tablet 1 01/28/2018 01/28/2019 Active (PLAVIX) 75 mg (75 mg total) tablet by mouth daily. nicotine (NICODERM Place 1 patch 28 patch 0 11/22/2017 12/22/2017 CQ) 14 mg/24 hr onto the skin patch daily for 30 days. clopidogrel Take 1 tablet 30 tablet 1 11/21/2017 01/28/2018 Discontinued (PLAVIX) 75 mg (75 mg total) tablet by mouth daily. acetaminophen-codei Take 1 tablet 30 tablet 0 11/21/2017 12/01/2017 ne (TYLENOL #3) by mouth 300-30 mg per every 6 (six) tablet hours as needed for up to 10 days. Max Daily Amount: 4 tablets Active Problems Problem Noted Date Critical lower limb ischemia 01/24/2018 Ischemia 01/23/2018 PVD (peripheral vascular disease) ([facility]) 11/17/2017 Peripheral vascular disease (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 &/OR Timothy Paniagua MD POPLITEAL 01/23/2018 - Hospital Encounter Cardiology Carmelo Patel Ischemia 01/28/2018 MD Estrada Mccallum Roy, MD 01/23/2018 Anesthesia Event Ricardo Loyola MD 01/23/2018 Procedure Pass 01/23/2018 Surgery Arthur Oconnor ANGIOGRAM-LOWER MD Amira EXTREMITY 12/06/2017 Office Visit Cardiology Arthur Oconnor Postoperative state MD Amira (Primary Dx) 11/17/2017 Orders Only General Internal Medicine 11/17/2017 Anesthesia Event Stefan Chase AA 11/17/2017 Procedure Pass 11/17/2017 Surgery Arthur Oconnor BYPASS,FEMORAL-POPLIT MD Amira EAL 11/16/2017 - Hospital Encounter Cardiology Arthur Oconnor Benign essential HTN 11/21/2017 MD Amira (Primary Dx) after 02/04/2017 Social History Tobacco Use Types Packs/Day Years Used Date Current Every Day Smoker Cigarettes 1 40 Smokeless Tobacco: Never Used Alcohol Use Drinks/Week oz/Week Comments Yes 7 Shots of liquor 4.2 Sex Assigned at Date Recorded Not on file Last Filed Vital Signs Vital Sign Reading Time Taken Blood Pressure 138/71 01/28/2018 10:57 AM CDT Pulse 65 01/28/2018 10:57 AM CDT Temperature 36.2 C (97.2 F) 01/28/2018 10:57 AM CDT Respiratory Rate 18 01/28/2018 10:57 AM CDT Oxygen Saturation 98% 01/28/2018 10:57 AM CDT Inhaled Oxygen Concentration - - Weight 88.6 kg (195 lb 4.8 oz) 01/28/2018 7:48 AM CDT Height 188 cm (6' 2") 12/06/2017 12:59 PM CDT Body Mass Index 25.08 01/28/2018 7:48 AM CDT Plan of Treatment Date Type Specialty Care Team Description 02/07/2018 Office Visit Cardiology Arthur Oconnor MD [address] [facility] [phone] [place], [place] [id number] Health Maintenance Due Date Last Done Comments INFLUENZA VACCINE 01/23/2018 Implants Implanted Type Area Pipefitter Device Expiration Model / Identifier Date Serial / Lot Mynxgrip Cardiovascular Left: CARDINAL 11/23/2019 [id number] / Implanted: Qty: 1 on 01/25/2018 by Timothy Abernathy MD [employer] / [id number] [facility] Full Strlprep 10ml [id number] - [id number] Cement/Filler/Adh Right: BUCHANAN:BIOSCI 04/11/2019 [id number] / Implanted: Qty: 1 on 11/17/2017 by Arthur Oconnor MD esive Leg / [id number] Grft Eptfe-Heparin Rng [id number] - [id number] Graft/Patch Right: PRINCE GORE & 08/08/2021 [id number] / Implanted: Qty: 1 on 11/17/2017 by Arthur Oconnor MD Leg ASSC:MED PRDT [id number] / Procedures Procedure Name Priority Date/Time Associated Diagnosis Comments 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 Component Value Ref Range PTT 130.9 (H) 22.5 - 36.0 seconds Specimen Performing Laboratory Blood - Arm, [address] [address] Prothrombin time/INR (01/28/2018 4:37 AM)Only the most recent of7 resultswithin the time period is included. Component Value Ref Range Protime 24.2 (H) 11.7 - 14.7 seconds INR 2.2 <=5.9 Specimen Performing Laboratory Blood - Arm, [address] [address] Narrative RECOMMENDED COUMADIN/WARFARIN INR THERAPY RANGES STANDARD DOSE: 2.0 - 3.0 Includes: PROPHYLAXIS for venous thrombosis, systemic embolization; TREATMENT for venous thrombosis and/or pulmonary embolus. HIGH RISK: Target INR is 2.5-3.5 for patients with mechanical heart valves. Phosphorus (01/28/2018 4:37 AM)Only the most recent of2 resultswithin the time period is included. Component Value Ref Range Phosphorus 2.7 2.3 - 4.7 mg/dL Specimen Performing Laboratory Blood - Arm, [address] [address] Magnesium (01/28/2018 4:37 AM)Only the most recent of8 resultswithin the time period is included. Component Value Ref Range Magnesium 1.8 1.6 - 2.6 mg/dL Specimen Performing Laboratory Blood - Arm, [address] [address] Basic Metabolic Panel (01/28/2018 4:37 AM)Only the most recent of11 resultswithin the time period is included. Component Value Ref Range Sodium 138 136 - 145 meq/L Potassium 4.2 3.5 - 5.1 meq/L Chloride 109 (H) 98 - 107 meq/L CO2 25 22 - 29 meq/L BUN 13 7 - 21 mg/dL Creatinine 1.49 (H) 0.57 - 1.25 mg/dL Glucose 104 70 - 105 mg/dL Calcium 8.4 8.4 - 10.2 mg/dL EGFR 48Comment: ESTIMATED GFR IS NOT ACCURATE mL/min/1.73 sq m CREATININE CLEARANCE IN PREDICTING GLOMERULAR FILTRATION RATE. ESTIMATED GFR IS NOT APPLICABLE FOR DIALYSIS PATIENTS. Specimen Performing Laboratory Blood - Arm, Left [address] [address] CBC (Hemogram only) (01/27/2018 2:18 PM)Only the most recent of6 resultswithin the time period is included. Component Value Ref Range WBC 8.3 3.5 - 10.5 K/L RBC 3.28 (L) 4.63 - 6.08 M/L Hemoglobin 9.8 (L) 13.7 - 17.5 GM/DL Hematocrit 31.4 (L) 40.1 - 51.0 % MCV 95.7 (H) 79.0 - 92.2 fL MCH 29.9 25.7 - 32.2 pg MCHC 31.2 (L) 32.3 - 36.5 GM/DL RDW 14.0 11.6 - 14.4 % Platelets 230 150 - 450 K/CU MM MPV 9.7 9.4 - 12.4 fL nRBC 0 0 - 0 /100 WBC Specimen Performing Laboratory Blood - Central Venous Line [address] [address] POC-Glucose meter (01/26/2018 7:14 AM)Only the most recent of9 resultswithin the time period is included. Component Value Ref Range POC-Glucose Meter 129 (H)Comment: TESTED AT [address] 70 - 110 mg/[place] [address] Specimen Performing Laboratory Blood [address] [address] Platelet Aggregation: Function Screen (01/25/2018 7:34 AM)Only the most recent of3 resultswithin the time period is included. Component Value Ref Range Weak ADP 48 (L) 60 - 91 % Plt. Function Screen Interpretation 40-49% indicates moderate platelet dysfunction Pathologist: Buzz Urbano M.D. (electonic signature) Platelets 187 150 - 450 K/CU MM Specimen Performing Laboratory Blood - Arm, Right [address] [place] [address] TRANSFUSION SERVICE REPORT - SCAN (01/24/2018 6:03 PM)Only the most recent of2 resultswithin the time period is included.Calcium, Ionized (01/23/2018 10:00 PM) Only the most recent of2 resultswithin the time period is included. Component Value Ref Range Calcium, Ion 1.04 (L) 1.12 - 1.27 mmol/L pH, Blood 7.41 Specimen Performing Laboratory Blood [facility] [address] [address] XR chest 1 view portable / bedside (01/23/2018 7:52 PM)Only the most recent of2 resultswithin the time period is included. Specimen Performing Laboratory GE RIS Narrative FINAL REPORT TECHNIQUE: Frontal view of the chest. INDICATION: Central line placement and right IJ. COMPARISON: None. FINDINGS: LINES/TUBES: RIJ central venous catheter with tip over the mid SVC. LUNGS: Increased interstitial markings of the lungs. PLEURA: Mild blunting of the right costophrenic sulcus. There may be calcification of the right diaphragmatic pleura. HEART AND MEDIASTINUM: The cardiomediastinal silhouette is within normal limits. SOFT TISSUES AND BONES: Unremarkable. IMPRESSION: Interval placement of a right IJ central venous catheter with tip over the mid SVC. No pneumothorax. Small right pleural effusion versus pleural scarring. Signed: Bryan Christianson MD Report Verified Date/Time:01/24/2018 00:09:20 Reading Location: [address] Consult Reading Room Procedure Note Interface, External Ris In - 01/24/2018 12:11 AM CDT FINAL REPORT TECHNIQUE: Frontal view of the chest. INDICATION: Central line placement and right IJ. COMPARISON: None. FINDINGS: LINES/TUBES: RIJ central venous catheter with tip over the mid SVC. LUNGS: Increased interstitial markings of the lungs. PLEURA: Mild blunting of the right costophrenic sulcus. There may be calcification of the right diaphragmatic pleura. HEART AND MEDIASTINUM: The cardiomediastinal silhouette is within normal limits. SOFT TISSUES AND BONES: Unremarkable. IMPRESSION: Interval placement of a right IJ central venous catheter with tip over the mid SVC. No pneumothorax. Small right pleural effusion versus pleural scarring. Signed: Bryan Christianson MD Report Verified Date/Time: 01/24/2018 00:09:20 Reading Location: [facility] C013W Consult Reading Room Potassium-Stat Lab (01/23/2018 6:34 PM)Only the most recent of3 resultswithin the time period is included. Component Value Ref Range Potassium 4.5 3.6 - 5.5 meq/L Specimen Performing Laboratory Blood, [address] [address] Glucose-Stat Lab (01/23/2018 6:34 PM)Only the most recent of3 resultswithin the time period is included. Component Value Ref Range Glucose 149 (H) 70 - 110 mg/dL Specimen Performing Laboratory Blood, [address] [address] HIV-1 Antigen with HIV-1/2 Antibody (01/23/2018 6:34 PM) Component Value Ref Range HIV-1 Antigen with HIV 1&2 Antibody Nonreactive Nonreactive Specimen Performing Laboratory Blood [address] [address] Hepatitis B surface antigen (01/23/2018 6:34 PM) Component Value Ref Range hepatitis B Surface Ag Nonreactive Nonreactive Specimen Performing Laboratory Blood [address] [address] Hemoglobin A1c (01/23/2018 6:34 PM) Component Value Ref Range Hemoglobin A1C 5.5 4.3 - 6.1 % Specimen Performing Laboratory Blood [address] [address] Blood gas, arterial (01/23/2018 6:34 PM)Only the most recent of3 resultswithin the time period is included. Component Value Ref Range pH, Arterial 7.34 (L) 7.35 - 7.45 pCO2, Arterial 38 35 - 45 mmHg pO2, Arterial 92 (H) 80 - 90 mmHg O2 Sat, Arterial 97.4 (H) 96.0 - 97.0 % HCO3, Arterial 21 21 - 29 mmol/L Base Excess, Arterial -5.3 (L) -2.0 - 3.0 mmol/L Patient Temperature 34.7 C FIO2 28.0 % Specimen Performing Laboratory Blood, Arterial [address] [address] POC ACTIVATED CLOTTING TIME (01/23/2018 5:31 PM)Only the most recent of4 resultswithin the time period is included. Component Value Ref Range Activated Clotting Time 307Comment: TESTED AT [address] sec [address] Specimen Performing Laboratory Blood [address] [address] Tissue Exam (01/23/2018 5:10 PM)Only the most recent of2 resultswithin the time period is included. Component Value Ref Range Case Report Surgical Pathology Report Case: [id number] Authorizing Provider:Arthur Oconnor MD Collected: 01/23/2018 1710 Ordering Location: [facility] CV Recovery Room 2 Received: 01/24/2018 0965 Pathologist: Tmiothy Mendoza MD Specimen:Soft Tissue, Other, RIGHT VASCULAR THROMBUS/CLOT DIAGNOSIS SOFT TISSUE/THROMBUS, LEG, "RIGHT VASCULAR", THROMBECTOMY - FRAGMENTS OF THROMBUS Signing Pathologist Direct Phone Line: [phone] CPT Code(s) 36047 CLINICAL HISTORY PAD SPECIMEN SOURCE Right vascular thrombus GROSS DESCRIPTION The specimen is received in saline labeled with the patient's information labeled "right vascular thrombus" and consists of multiple fragments of blood clot measuring 3 x 2 x 0.5 cm in aggregate. Prorate Clerk portions submitted A1. CG/pl MICROSCOPIC DESCRIPTION PERFORMED Specimen Performing Laboratory Tissue - Soft Tissue, Other [address] [address] Type and screen, automated (01/23/2018 2:01 PM)Only the most recent of2 resultswithin the time period is included. Component Value Ref Range ABO/RH AUTOMATED (BEAKER) A POSITIVE Ab Scrn NEGATIVE Specimen Performing Laboratory Blood [address] [address] CBC with platelet count + automated diff (01/23/2018 2:01 PM)Only the most recent of4 resultswithin the time period is included. Component Value Ref Range WBC 14.3 (H) 3.5 - 10.5 K/L RBC 4.32 (L) 4.63 - 6.08 M/L Hemoglobin 13.0 (L) 13.7 - 17.5 GM/DL Hematocrit 40.7 40.1 - 51.0 % MCV 94.2 (H) 79.0 - 92.2 fL MCH 30.1 25.7 - 32.2 pg MCHC 31.9 (L) 32.3 - 36.5 GM/DL RDW 13.6 11.6 - 14.4 % Platelets 240 150 - 450 K/CU MM MPV 9.6 9.4 - 12.4 fL nRBC 0 0 - 0 /100 WBC % Neutros 83 % % Lymphs 11 % % Monos 5 % % Eos 0 % % Baso 0 % # Neutros 11.79 (H) 1.78 - 5.38 K/L # Lymphs 1.57 1.32 - 3.57 K/L # Monos 0.75 0.30 - 0.82 K/L # Eos 0.01 (L) 0.04 - 0.54 K/L # Baso 0.05 0.01 - 0.08 K/L Immature Granulocytes-Relative 1 0 - 1 % Specimen Performing Laboratory Blood [address] [address] CBC with platelet count + automated diff (01/23/2018 2:01 PM)Only the most recent of4 resultswithin the time period is included. Specimen Performing Laboratory Blood Narrative The following orders were created for panel order CBC with platelet count + automated diff. Procedure Abnormality Status --------- ------ CBC with platelet count ...[[id number]]AbnormalFinal result Please view results for these tests on the individual orders. Lipid panel (11/20/2017 3:45 AM) Component Value Ref Range Triglycerides 119 mg/dL Cholesterol 123 mg/dL HDL 26 mg/dL LDL Calculated 73 mg/dL Specimen Performing Laboratory Blood [address] [address] Narrative Triglyceride Reference Range: Low Risk <150 Glaliggtaz459-138 High Risk 200-499 Very High Risk>=500 Cholesterol Reference Range: Low Risk <200 Bwjieypkkl770-360 High Risk>240 HDL Cholesterol Reference Range: Low Risk >=60 High Risk <40 LDL Cholesterol Reference Range: Optimal<100 Near Fdamctb327-635 Ujkpbknifj446-219 Qqvc190-356 Very High >=190 Sodium Na-Stat Lab (11/17/2017 10:27 AM)Only the most recent of2 resultswithin the time period is included. Component Value Ref Range Sodium 137 135 - 148 meq/L Specimen Performing Laboratory Blood, Arterial [address] [address] Narrative Only if arterial line in place and/or patient on ventilator HGB/HCT (H&H)-Stat Lab (11/17/2017 10:27 AM)Only the most recent of2 resultswithin the time period is included. Component Value Ref Range Hemoglobin 14.2 13.0 - 16.8 g/dL Hematocrit 42.0 40.0 - 50.0 % Specimen Performing Laboratory Blood, Arterial [address] [address] Narrative Only if arterial line in place and/or patient on ventilator RRL Critical Labs (ABG,NA,K,H&H,GLU) (11/17/2017 8:57 AM) Specimen Performing Laboratory Blood, Arterial Narrative The following orders were created for panel order RRL Critical Labs (ABG,NA,K,H&H,GLU). Procedure Abnormality Status --------- ------ Blood gas, arterial[[id number]]AbnormalFinal result Sodium Na-Stat Lab[[id number]] NormalFinal result Potassium-Stat Lab[[id number]] NormalFinal result Glucose-Stat Lab[[id number]] NormalFinal result HGB/HCT (H&H)-Stat Lab[[id number]] Normal Final result Please view results for these tests on the individual orders. Electrocardiogram, 12-lead (11/17/2017 7:14 AM) Specimen Performing Laboratory GE MUSE Narrative Ventricular Rate 53 BPM Atrial Rate 53 BPM P-R Interval 198 ms QRS Duration 86 ms Q-T Interval 450 ms QTC Calculation(Bazett) 422 ms P Marshall 49 degrees R Marshall 48 degrees T Marshall 55 degrees Sinus bradycardia Otherwise normal ECG No previous ECGs available Confirmed by MD PERDOMO JORGE ([id number]) on 11/17/2017 12:42:28 PM Procedure Note Interface, External Ris In - 11/17/2017 12:42 PM CDT Ventricular Rate 53 BPM Atrial Rate 53 BPM P-R Interval 198 ms QRS Duration 86 ms Q-T Interval 450 ms QTC Calculation(Bazett) 422 ms P Marshall 49 degrees R Marshall 48 degrees T Marshall 55 degrees Sinus bradycardia Otherwise normal ECG No previous ECGs available Confirmed by MD PERDOMO JORGE ([id number]) on 11/17/2017 12:42:28 PM Urinalysis w/ Microscopic (11/17/2017 5:39 AM) Component Value Ref Range Color, UA Light Yellow Clarity, UA Clear Specific Parks, UA 1.009 1.001 - 1.035 pH, UA 6.0 5.0 - 8.0 Protein, UA Negative Negative Glucose, UA Negative Negative Ketones, UA Negative Negative Bilirubin, UA Negative Negative Blood, UA Negative Negative Nitrite, UA Negative Negative Leukocytes, UA Negative Negative Urobilinogen, UA 0.2 0.2 - 1.0 mg/dL RBC, UA 1 /HPF WBC, UA <1 /HPF Specimen Source Urine, Voided Specimen Performing Laboratory Urine - Urine, Voided [facility] [address] [address] Vein Mapping Legs Bilateral (11/17/2017 5:15 AM) Component Value Ref Range Ejection Fraction Specimen Performing Laboratory [facility] Imp[facility] Right Impression 1. There is no deep venous venous obstruction in the common femoral, profunda femoral, femoral or popliteal veins. 2. One posterior tibial vein is visualized. 3. The peroneal veins are not well visualized. 4. There is no superficial venous obstruction in the great saphenous vein. Left Impression 1. There is no deep venous venous obstruction in the common femoral, profunda femoral, femoral, popliteal or posterior tibial veins. 2. The peroneal veins are not well visualized. 3. There is no superficial venous obstruction in the great saphenous vein. Conclusions Summary Venous duplex imaging and compression of the bilateral lower extremities was performed. The exam was technically difficult due to patient movement and body habitus. The bilateral venous systems were patent and compressible with no evidence of thrombus where visualized. Superficial venous measurements are documented below. Signature Velocities are measured in cm/s ; Diameters are measured in cm LE Vein Mapping Superficial - Great Saphenous Vein Right Left + + + + + + + + !Location ! !Diameter!Depth ! !Diameter!Depth ! + + + + + + + + !GSV High Thigh ! !0.38! ! !0.66! ! + + + + + + + + !GSV Mid Thigh ! !0.36! ! !0.37! ! + + + + + + + + !GSV Low Thigh ! !0.46! ! !0.44! ! + + + + + + + + !GSV High Calf ! !0.3 ! ! !0.26! ! + + + + + + + + !GSV Mid Calf ! !0.21! ! !0.33! ! + + + + + + + + !GSV Low Calf ! !0.21! ! !0.31! ! + + + + + + + + Superficial - Lesser Saphenous VeinRight Left + + + + + + + + !Location ! !Diameter!Depth ! !Diameter!Depth ! + + + + + + + + !SSV High Calf ! !0.58! ! !0.67! ! + + + + + + + + !SSV Mid Calf ! !0.33 ! ! + + + + ------ -----+ !SSV Low Calf ! !0.32 ! ! + + + + ------ -----+ Narrative [facility] - Lower Extremities Vein Mapping Demographics Patient Name JASWINDER RANDALL Date of Study11/17/2017 [id number] Age62 Visit Number [id number] Gender Male Accession Number [id number] Date of Birth1955 [facility] Room [id number] Physician Becky Moncada MD, [facility] PhysicianRPVI Procedure Type of Study: Veins: Lower Extremity Vein Mapping, VEIN MAPPING, LOWER EXTREMITY, BILATERAL. Indications for Study:Hx of DVT and Pre-op evaluation. Patient Status:Routine. Study Location:Portable. Technical Quality:Technically Difficult. Risk Factors History of Disease + +----+ + !Diagnosis !Date!Comments ! + +----+ + !History/Risk!!HTN, PVD, H/o CKD, Current Smoker, Alcohol abuse, H/ o ! !Factors:!!DVT while on Coumadin, Multiple prior RLE ! !!!Angioplasties, Per OSH, Right SFA Occlusion ! + +----+ + Procedure Note Interface, External Ris In - 11/17/2017 9:36 AM CDT [facility] - Lower Extremities Vein Mapping Demographics Patient Name JASWINDER RANDALL Date of Study 11/17/2017 Age 62 Visit Number [id number] Gender Male Accession Number [id number] Date of 1955 Referring Formerly [facility] Room Number 2C24 Physician Medical Doctor Rey Wetzel Interpreting Tori Moncada MD, [facility] Physician RPVI Procedure Type of Study: Veins: Lower Extremity Vein Mapping, VEIN MAPPING, LOWER EXTREMITY, BILATERAL. Indications for Study:Hx of DVT and Pre-op evaluation. Patient Status:Routine. Study Location:Portable. Technical Quality:Technically Difficult. Risk Factors History of Disease + +----+ + !Diagnosis !Date!Comments ! + +----+ + !History/Risk ! !HTN, PVD, H/o CKD, Current Smoker, Alcohol abuse, H/o ! !Factors: ! !DVT while on Coumadin, Multiple prior RLE ! ! ! !Angioplasties, Per OSH, Right SFA Occlusion ! + +----+ + Impressions Right Impression 1. There is no deep venous venous obstruction in the common femoral, profunda femoral, femoral or popliteal veins. 2. One posterior tibial vein is visualized. 3. The peroneal veins are not well visualized. 4. There is no superficial venous obstruction in the great saphenous vein. Left Impression 1. There is no deep venous venous obstruction in the common femoral, profunda femoral, femoral, popliteal or posterior tibial veins. 2. The peroneal veins are not well visualized. 3. There is no superficial venous obstruction in the great saphenous vein. Conclusions Summary Venous duplex imaging and compression of the bilateral lower extremities was performed. The exam was technically difficult due to patient movement and body habitus. The bilateral venous systems were patent and compressible with no evidence of thrombus where visualized. Superficial venous measurements are documented below. Signature Velocities are measured in cm/s ; Diameters are measured in cm LE Vein Mapping Superficial - Great Saphenous Vein Right Left + + + + + + -----+ + !Location ! !Diameter !Depth ! !Diameter !Depth ! + + + + + + -----+ + !GSV High Thigh ! !0.38 ! ! !0.66 ! ! + + + + + + -----+ + !GSV Mid Thigh ! !0.36 ! ! !0.37 ! ! + + + + + + -----+ + !GSV Low Thigh ! !0.46 ! ! !0.44 ! ! + + + + + + -----+ + !GSV High Calf ! !0.3 ! ! !0.26 ! ! + + + + + + -----+ + !GSV Mid Calf ! !0.21 ! ! !0.33 ! ! + + + + + + -----+ + !GSV Low Calf ! !0.21 ! ! !0.31 ! ! + + + + + + -----+ + Superficial - Lesser Saphenous Vein Right Left + + + + + + -----+ + !Location ! !Diameter !Depth ! !Diameter !Depth ! + + + + + + -----+ + !SSV High Calf ! !0.58 ! ! !0.67 ! ! + + + + + + -----+ + !SSV Mid Calf ! !0.33 ! ! + + + ------+ + !SSV Low Calf ! !0.32 ! ! + + + ------+ + Comprehensive metabolic panel (11/16/2017 10:45 PM) Component Value Ref Range Protein, Total 6.2 6.0 - 8.3 gm/dL Albumin 3.6 3.5 - 5.0 g/dL Alkaline Phosphatase 83 40 - 150 U/L Total Bilirubin 0.4 0.2 - 1.2 mg/dL Sodium 137 136 - 145 meq/L Potassium 4.4 3.5 - 5.1 meq/L Chloride 108 (H) 98 - 107 meq/L CO2 22 22 - 29 meq/L BUN 14 7 - 21 mg/dL Creatinine 1.61 (H) 0.57 - 1.25 mg/dL Glucose 89 70 - 105 mg/dL Calcium 8.9 8.4 - 10.2 mg/dL AST 18 5 - 34 U/L ALT 15 6 - 55 U/L EGFR 44Comment: ESTIMATED GFR IS NOT ACCURATE mL/min/1.73 sq m CREATININE CLEARANCE IN PREDICTING GLOMERULAR FILTRATION RATE. ESTIMATED GFR IS NOT APPLICABLE FOR DIALYSIS PATIENTS. Specimen Performing Laboratory Blood [facility] [address] [id number] after 02/04/2017
--- OUTSIDE RECORDS SUMMARY | 2018-02-05 13:00 | XMS REPORT ---
:1955 [facility] [address] [place] [address] Care Team Providers Name Role Phone THELMA RUIZ Unavailable Unavailable HUMZA OCONNOR Unavailable Unavailable Problems This patient has no known problems. Allergies, Adverse Reactions, Alerts This patient has no known allergies or adverse reactions. Medications This patient has no known medications. Results Test Description Test Time Test Comments Text Results Atomic Results Result Comments PHOSPHORUS 2018-01-28 05:35:00 Test Item Value Reference Range Comments PHOSPHORUS (BEAKER) (test mide=932) 2.7 mg/dL 2.3-4.7 [id number] 05:35:00 Test Item Value Reference Range Comments MAGNESIUM (BEAKER) (test nrpn=150) 1.8 mg/dL 1.6-2.6 BASIC METABOLIC [id number] 05:35:00 Test Item Value Reference Range Comments SODIUM (BEAKER) (test 138 meq/L 136-145 nbmw=757) POTASSIUM (BEAKER) (test 4.2 meq/L 3.5-5.1 iotg=954) CHLORIDE (BEAKER) (test 109 meq/L 98-107 zmwn=863) CO2 (BEAKER) (test 25 meq/L 22-29 twbu=506) BLOOD UREA NITROGEN 13 mg/dL 7-21 (BEAKER) (test mhcf=477) CREATININE (BEAKER) (test 1.49 mg/dL 0.57-1.25 jjiq=727) GLUCOSE RANDOM (BEAKER) 104 mg/dL 70-105 (test ngcp=753) CALCIUM (BEAKER) (test 8.4 mg/dL 8.4-10.2 wuui=212) EGFR (BEAKER) (test 48 mL/min/1.73 sq m ESTIMATED GFR IS NOT zqhr=0087) ACCURATE CREATININE CLEARANCE IN PREDICTING GLOMERULAR FILTRATION RATE. ESTIMATED GFR IS NOT APPLICABLE FOR DIALYSIS PATIENTS. [id number] 05:29:00 Test Item Value Reference Range Comments PARTIAL THROMBOPLASTIN TIME (BEAKER) (test 130.9 seconds 22.5-36.0 tafz=858) PROTHROMBIN [id number] 05:17:00 Test Item Value Reference Range Comments PROTIME (BEAKER) (test kcdd=048) 24.2 seconds 11.7-14.7 INR (BEAKER) (test sqdz=524) 2.2 <=5.9 RECOMMENDED COUMADIN/WARFARIN INR THERAPY RANGESSTANDARD DOSE: 2.0 - 3.0 Includes: PROPHYLAXIS forvenous thrombosis, systemic embolization; TREATMENT for venous thrombosis and/or pulmonary embolus.HIGH RISK: Target INR is 2.5-3.5 for patients with mechanical heart valves.[id number] 00:15:00 Test Item Value Reference Range Comments PARTIAL THROMBOPLASTIN TIME (BEAKER) (test 76.8 seconds 22.5-36.0 fqmo=302) [id number] 16:54:00 Test Item Value Reference Range Comments PARTIAL THROMBOPLASTIN TIME (BEAKER) (test 47.3 seconds 22.5-36.0 mwfy=409) [id number] 14:53:00 Test Item Value Reference Range Comments PARTIAL THROMBOPLASTIN TIME (BEAKER) (test 125.8 seconds 22.5-36.0 foiu=795) CBC (HEMOGRAM ONLY)2018-01-27 14:31:00 Test Item Value Reference Range Comments WHITE BLOOD CELL COUNT (BEAKER) (test hlkq=185) 8.3 K/ L 3.5-10.5 RED BLOOD CELL COUNT (BEAKER) (test umhm=298) 3.28 M/ L 4.63-6.08 HEMOGLOBIN (BEAKER) (test ejqj=272) 9.8 GM/DL 13.7-17.5 HEMATOCRIT (BEAKER) (test jxcf=604) 31.4 % 40.1-51.0 MEAN CORPUSCULAR VOLUME (BEAKER) (test ezwa=459) 95.7 fL 79.0-92.2 MEAN CORPUSCULAR HEMOGLOBIN (BEAKER) (test 29.9 pg 25.7-32.2 mzyw=643) MEAN CORPUSCULAR HEMOGLOBIN CONC (BEAKER) (test 31.2 GM/DL 32.3-36.5 gipi=487) RED CELL DISTRIBUTION WIDTH (BEAKER) (test 14.0 % 11.6-14.4 olwd=734) PLATELET COUNT (BEAKER) (test oolw=413) 230 K/CU MM 150-450 MEAN PLATELET VOLUME (BEAKER) (test qobx=683) 9.7 fL 9.4-12.4 NUCLEATED RED BLOOD CELLS (BEAKER) (test 0 /100 WBC 0-0 lula=824) PROTHROMBIN [id number] 08:29:00 Test Item Value Reference Range Comments PROTIME (BEAKER) (test lqnu=090) 16.1 seconds 11.7-14.7 INR (BEAKER) (test gsdy=335) 1.3 <=5.9 RECOMMENDED COUMADIN/WARFARIN INR THERAPY RANGESSTANDARD DOSE: 2.0 - 3.0 Includes: PROPHYLAXIS forvenous thrombosis, systemic embolization; TREATMENT for venous thrombosis and/or pulmonary embolus.HIGH RISK: Target INR is 2.5-3.5 for patients with mechanical heart valves.6 hours after starting heparin infusion and as indicated per sliding [id number] 07:17:00 Test Item Value Reference Range Comments PHOSPHORUS (BEAKER) (test gkmd=679) 2.1 mg/dL 2.3-4.7 [id number] 07:17:00 Test Item Value Reference Range Comments MAGNESIUM (BEAKER) (test nzis=501) 2.0 mg/dL 1.6-2.6 BASIC METABOLIC [id number] 07:17:00 Test Item Value Reference Range Comments SODIUM (BEAKER) (test 138 meq/L 136-145 apcw=402) POTASSIUM (BEAKER) (test 4.2 meq/L 3.5-5.1 gqjk=616) CHLORIDE (BEAKER) (test 109 meq/L 98-107 eqsy=997) CO2 (BEAKER) (test 25 meq/L 22-29 aeyd=938) BLOOD UREA NITROGEN 15 mg/dL 7-21 (BEAKER) (test kqcu=859) CREATININE (BEAKER) (test 1.47 mg/dL 0.57-1.25 dgnl=825) GLUCOSE RANDOM (BEAKER) 106 mg/dL 70-105 (test hlay=336) CALCIUM (BEAKER) (test 8.3 mg/dL 8.4-10.2 wkex=366) EGFR (BEAKER) (test 49 mL/min/1.73 sq m ESTIMATED GFR IS NOT lduv=1172) ACCURATE CREATININE CLEARANCE IN PREDICTING GLOMERULAR FILTRATION RATE. ESTIMATED GFR IS NOT APPLICABLE FOR DIALYSIS PATIENTS. [id number] 07:07:00 Test Item Value Reference Range Comments PARTIAL THROMBOPLASTIN TIME (BEAKER) (test 107.3 seconds 22.5-36.0 wlls=552) 6 hours after starting heparin infusion and as indicated per sliding scaleCBC ( HEMOGRAM ONLY)2018-01-27 06:30:00 Test Item Value Reference Range Comments WHITE BLOOD CELL COUNT (BEAKER) (test mbzt=168) 8.3 K/ L 3.5-10.5 RED BLOOD CELL COUNT (BEAKER) (test piio=770) 3.38 M/ L 4.63-6.08 HEMOGLOBIN (BEAKER) (test lqpk=428) 10.1 GM/DL 13.7-17.5 HEMATOCRIT (BEAKER) (test mbah=383) 32.3 % 40.1-51.0 MEAN CORPUSCULAR VOLUME (BEAKER) (test fkxk=956) 95.6 fL 79.0-92.2 MEAN CORPUSCULAR HEMOGLOBIN (BEAKER) (test 29.9 pg 25.7-32.2 jtfo=872) MEAN CORPUSCULAR HEMOGLOBIN CONC (BEAKER) (test 31.3 GM/DL 32.3-36.5 eohq=186) RED CELL DISTRIBUTION WIDTH (BEAKER) (test 13.9 % 11.6-14.4 owty=806) PLATELET COUNT (BEAKER) (test vrxi=809) 181 K/CU MM 150-450 MEAN PLATELET VOLUME (BEAKER) (test lvqo=217) 9.4 fL 9.4-12.4 NUCLEATED RED BLOOD CELLS (BEAKER) (test 0 /100 WBC 0-0 ujft=647) [id number] 01:12:00 Test Item Value Reference Range Comments PARTIAL THROMBOPLASTIN TIME (BEAKER) (test 98.7 seconds 22.5-36.0 uueq=720) TISSUE [id number] 19:09:00Surgical Pathology Report Case: [id number] Authorizing Provider: Humza Oconnor MD Collected: 01/23/2018 1710 Ordering Location: [facility] CV Recovery Room 2 Received: 01/24/2018 0943 Pathologist: Timothy Mendoza MD Specimen: Soft Tissue, Other, RIGHT VASCULAR THROMBUS/CLOT SOFT TISSUE/THROMBUS, LEG, "RIGHT VASCULAR", THROMBECTOMY- FRAGMENTS OF THROMBUS Signing Pathologist Direct Phone Line: [phone] signed by Timothy Mendoza MD on 01/26/2018 at 7:09 [id number] vascular thrombusThe specimen is received in saline labeled with the patient's information labeled "right vascular thrombus" and consists of multiple fragments of blood clot measuring 3 x 2 x 0.5 cm in aggregate. Forensic Manager portions submitted A1. CG/ pl [id number] 18:00:00 Test Item Value Reference Range Comments PARTIAL THROMBOPLASTIN TIME (BEAKER) (test 57.7 seconds 22.5-36.0 bklr=405) POCT-GLUCOSE [id number] 09:17:00 Test Item Value Reference Range Comments POC-GLUCOSE METER (BEAKER) 129 mg/dL 70-[address] [facility] [address] [facility] (test seky=5426) [facility] [address] [id number] 09:01:00 Test Item Value Reference Range Comments PARTIAL THROMBOPLASTIN TIME (BEAKER) (test 68.7 seconds 22.5-36.0 aklh=235) [id number] 01:45:00 Test Item Value Reference Range Comments PARTIAL THROMBOPLASTIN TIME (BEAKER) (test 45.8 seconds 22.5-36.0 qmny=342) PROTHROMBIN [id number] 01:43:00 Test Item Value Reference Range Comments PROTIME (BEAKER) (test zgid=849) 13.7 seconds 11.7-14.7 INR (BEAKER) (test qaki=810) 1.1 <=5.9 RECOMMENDED COUMADIN/WARFARIN INR THERAPY RANGESSTANDARD DOSE: 2.0 - 3.0 Includes: PROPHYLAXIS forvenous thrombosis, systemic embolization; TREATMENT for venous thrombosis and/or pulmonary embolus.HIGH RISK: Target INR is 2.5-3.5 for patients with mechanical heart valves.POCT-GLUCOSE [id number] 21:14:00 Test Item Value Reference Range Comments POC-GLUCOSE METER (BEAKER) 115 mg/dL 70-110 TESTED AT [address] (test hrql=5637) [place] [address] PLATELET AGGREGATION: FUNCTION [id number] 20:37:00 Test Item Value Reference Range Comments WEAK ADP RESULT(BEAKER) (test 48 % 60-91 otjw=6523) PLATELET FUNCTION SCREEN 40-49% indicates moderate INTERP (BEAKER) (test platelet dysfunction znha=4290) [id number] Buzz Urbano M.D. (electonic (BEAKER) (test yhtl=0156) signature) PLATELET COUNT AGG (BEAKER) 187 K/CU MM 150-450 (test cqvf=4580) POCT-GLUCOSE [id number] 17:28:00 Test Item Value Reference Range Comments POC-GLUCOSE METER (BEAKER) 93 mg/dL 70-110 TESTED AT [address] (test ydvz=9793) [place] [address] POCT-GLUCOSE [id number] 12:12:00 Test Item Value Reference Range Comments POC-GLUCOSE METER (BEAKER) 108 mg/dL 70-110 TESTED AT [address] (test rnnb=0805) [place] [address] [id number] 08:17:00 Test Item Value Reference Range Comments PARTIAL THROMBOPLASTIN TIME (BEAKER) (test 47.0 seconds 22.5-36.0 lacu=642) While on heparin. aPTT target range 60 to 80 seconds Notify MD if aPTT is out of range.POCT-GLUCOSE [id number] 07:47:00 Test Item Value Reference Range Comments POC-GLUCOSE METER (BEAKER) 98 mg/dL 70-110 TESTED AT [address] (test vcuv=2057) [place] [address] [id number] 02:53:00 Test Item Value Reference Range Comments PARTIAL THROMBOPLASTIN TIME (BEAKER) (test 71.4 seconds 22.5-36.0 ihae=735) While on heparin. aPTT target range 60 to 80 seconds Notify MD if aPTT is out of range.PROTHROMBIN [id number] 02:51:00 Test Item Value Reference Range Comments PROTIME (BEAKER) (test ggar=787) 13.5 seconds 11.7-14.7 INR (BEAKER) (test rnaj=831) 1.0 <=5.9 RECOMMENDED COUMADIN/WARFARIN INR THERAPY RANGESSTANDARD DOSE: 2.0 - 3.0 Includes: PROPHYLAXIS forvenous thrombosis, systemic embolization; TREATMENT for venous thrombosis and/or pulmonary embolus.HIGH RISK: Target INR is 2.5-3.5 for patients with mechanical heart valves.While on heparin. aPTT target range 60 to 80 seconds Notify MD if aPTT is out of range.BASIC METABOLIC [id number] 02:48:00 Test Item Value Reference Range Comments SODIUM (BEAKER) (test 133 meq/L 136-145 jaau=253) POTASSIUM (BEAKER) (test 3.7 meq/L 3.5-5.1 mouw=808) CHLORIDE (BEAKER) (test 102 meq/L 98-107 qoyw=408) CO2 (BEAKER) (test 24 meq/L 22-29 zmru=720) BLOOD UREA NITROGEN 19 mg/dL 7-21 (BEAKER) (test vwzp=360) CREATININE (BEAKER) (test 1.62 mg/dL 0.57-1.25 rmql=869) GLUCOSE RANDOM (BEAKER) 106 mg/dL 70-105 (test mpxn=152) CALCIUM (BEAKER) (test 7.9 mg/dL 8.4-10.2 zlbc=424) EGFR (BEAKER) (test 43 mL/min/1.73 sq m ESTIMATED GFR IS NOT klxd=4403) ACCURATE CREATININE CLEARANCE IN PREDICTING GLOMERULAR FILTRATION RATE. ESTIMATED GFR IS NOT APPLICABLE FOR DIALYSIS PATIENTS. [id number] 02:42:00 Test Item Value Reference Range Comments MAGNESIUM (BEAKER) (test feus=431) 2.1 mg/dL 1.6-2.6 CBC (HEMOGRAM ONLY)2018-01-25 02:21:00 Test Item Value Reference Range Comments WHITE BLOOD CELL COUNT (BEAKER) (test cjip=415) 10.8 K/ L 3.5-10.5 RED BLOOD CELL COUNT (BEAKER) (test witg=684) 3.34 M/ L 4.63-6.08 HEMOGLOBIN (BEAKER) (test xsat=639) 10.0 GM/DL 13.7-17.5 HEMATOCRIT (BEAKER) (test eciv=684) 31.1 % 40.1-51.0 MEAN CORPUSCULAR VOLUME (BEAKER) (test vhso=386) 93.1 fL 79.0-92.2 MEAN CORPUSCULAR HEMOGLOBIN (BEAKER) (test 29.9 pg 25.7-32.2 ehjy=242) MEAN CORPUSCULAR HEMOGLOBIN CONC (BEAKER) (test 32.2 GM/DL 32.3-36.5 aiwa=942) RED CELL DISTRIBUTION WIDTH (BEAKER) (test 14.0 % 11.6-14.4 lncc=335) PLATELET COUNT (BEAKER) (test mhcw=317) 186 K/CU MM 150-450 MEAN PLATELET VOLUME (BEAKER) (test ewpo=152) 9.4 fL 9.4-12.4 NUCLEATED RED BLOOD CELLS (BEAKER) (test 0 /100 WBC 0-0 cerz=684) POCT-GLUCOSE [id number] 21:10:00 Test Item Value Reference Range Comments POC-GLUCOSE METER (BEAKER) 124 mg/dL 70-[address] [facility] [address] [facility] (test axqm=7297) [facility] [address] [id number] 20:38:00 Test Item Value Reference Range Comments PARTIAL THROMBOPLASTIN TIME (BEAKER) (test 48.6 seconds 22.5-36.0 xqzg=633) PLATELET AGGREGATION: FUNCTION [id number] 18:24:00 Test Item Value Reference Range Comments WEAK ADP RESULT(BEAKER) (test 33 % 60-91 sicu=1234) PLATELET FUNCTION SCREEN 0-39% indicates marked platelet INTERP (BEAKER) (test dysfunction pkep=9906) [id number] Buzz Urbano M.D. (electonic (BEAKER) (test fjov=5800) signature) PLATELET COUNT AGG (BEAKER) 242 K/CU MM 150-450 (test vxsn=7429) PLATELET AGGREGATION: FUNCTION [id number] 18:22:00 Test Item Value Reference Range Comments WEAK ADP RESULT(BEAKER) (test 25 % 60-91 gjqb=9052) PLATELET FUNCTION SCREEN 0-39% indicates marked platelet INTERP (BEAKER) (test dysfunction wudt=5736) [id number] Buzz Urbano M.D. (electonic (BEAKER) (test rihx=0342) signature) PLATELET COUNT AGG (BEAKER) 251 K/CU MM 150-450 (test uhoz=8721) [id number] 16:16:00 Test Item Value Reference Range Comments PARTIAL THROMBOPLASTIN TIME (BEAKER) (test 81.3 seconds 22.5-36.0 kkim=236) [id number] 15:37:00 Test Item Value Reference Range Comments PARTIAL THROMBOPLASTIN TIME (BEAKER) (test 38.5 seconds 22.5-36.0 tuna=850) While on heparin. aPTT target range 50 to 80 seconds Notify MD if aPTT is out of range.HEMOGLOBIN [id number] 12:50:00 Test Item Value Reference Range Comments HEMOGLOBIN A1C (BEAKER) (test xtvc=014) 5.5 % 4.3-6.1 POCT-GLUCOSE [id number] 11:33:00 Test Item Value Reference Range Comments POC-GLUCOSE METER (BEAKER) 100 mg/dL 70-[address] [facility] [address] [facility] (test vbmz=1911) [facility] [address] [id number] 08:35:00 Test Item Value Reference Range Comments PARTIAL THROMBOPLASTIN TIME (BEAKER) (test 44.9 seconds 22.5-36.0 fjsv=219) [id number] 04:15:00 Test Item Value Reference Range Comments MAGNESIUM (BEAKER) (test dilc=088) 1.9 mg/dL 1.6-2.6 BASIC METABOLIC [id number] 04:15:00 Test Item Value Reference Range Comments SODIUM (BEAKER) (test 136 meq/L 136-145 tphm=501) POTASSIUM (BEAKER) (test 4.4 meq/L 3.5-5.1 zeco=877) CHLORIDE (BEAKER) (test 107 meq/L 98-107 bvpm=349) CO2 (BEAKER) (test 22 meq/L 22-29 pxuq=668) BLOOD UREA NITROGEN 16 mg/dL 7-21 (BEAKER) (test zoil=923) CREATININE (BEAKER) (test 1.54 mg/dL 0.57-1.25 gdfe=953) GLUCOSE RANDOM (BEAKER) 129 mg/dL 70-105 (test gffg=457) CALCIUM (BEAKER) (test 8.1 mg/dL 8.4-10.2 siap=149) EGFR (BEAKER) (test 46 mL/min/1.73 sq m ESTIMATED GFR IS NOT cgku=9808) ACCURATE CREATININE CLEARANCE IN PREDICTING GLOMERULAR FILTRATION RATE. ESTIMATED GFR IS NOT APPLICABLE FOR DIALYSIS PATIENTS. [id number] 04:12:00 Test Item Value Reference Range Comments PARTIAL THROMBOPLASTIN TIME (BEAKER) (test 65.1 seconds 22.5-36.0 buzg=133) POCT-GLUCOSE [id number] 04:11:00 Test Item Value Reference Range Comments POC-GLUCOSE METER (BEAKER) 128 mg/dL 70-[address] [facility] [address] [facility] (test eafv=1161) [facility] [address] PROTHROMBIN [id number] 04:11:00 Test Item Value Reference Range Comments PROTIME (BEAKER) (test tzlp=565) 14.8 seconds 11.7-14.7 INR (BEAKER) (test rfti=593) 1.2 <=5.9 RECOMMENDED COUMADIN/WARFARIN INR THERAPY RANGESSTANDARD DOSE: 2.0 - 3.0 Includes: PROPHYLAXIS forvenous thrombosis, systemic embolization; TREATMENT for venous thrombosis and/or pulmonary embolus.HIGH RISK: Target INR is 2.5-3.5 for patients with mechanical heart valves.CBC (HEMOGRAM ONLY)2018-01-24 03:59:00 Test Item Value Reference Range Comments WHITE BLOOD CELL COUNT (BEAKER) (test fsnd=860) 15.9 K/ L 3.5-10.5 RED BLOOD CELL COUNT (BEAKER) (test upov=742) 3.85 M/ L 4.63-6.08 HEMOGLOBIN (BEAKER) (test bbww=650) 11.7 GM/DL 13.7-17.5 HEMATOCRIT (BEAKER) (test ikuf=996) 35.7 % 40.1-51.0 MEAN CORPUSCULAR VOLUME (BEAKER) (test kogd=506) 92.7 fL 79.0-92.2 MEAN CORPUSCULAR HEMOGLOBIN (BEAKER) (test 30.4 pg 25.7-32.2 arxs=072) MEAN CORPUSCULAR HEMOGLOBIN CONC (BEAKER) (test 32.8 GM/DL 32.3-36.5 mlnb=674) RED CELL DISTRIBUTION WIDTH (BEAKER) (test 13.7 % 11.6-14.4 uucw=149) PLATELET COUNT (BEAKER) (test wfjl=856) 250 K/CU MM 150-450 MEAN PLATELET VOLUME (BEAKER) (test rwal=199) 9.8 fL 9.4-12.4 NUCLEATED RED BLOOD CELLS (BEAKER) (test 0 /100 WBC 0-0 gkyh=581) RAD, CHEST, 1 VIEW, NON [id number] 00:09:00Reason for exam:->central line placement in the right IJ Should this be performed at the bedside?-> YesFINAL REPORT TECHNIQUE: Frontal view of the chest. INDICATION: Central line placement and right IJ. COMPARISON: None. FINDINGS: LINES/TUBES: RIJ central venous catheter with tipover the mid SVC. LUNGS: Increased interstitial markings of the lungs. PLEURA: Mild blunting of the right costophrenic sulcus. There may be calcification of the right diaphragmatic pleura. HEART AND MEDIASTINUM: The cardiomediastinal silhouette is within normal limits. SOFT TISSUES AND BONES: Unremarkable. IMPRESSION: Interval placement of a right IJ central venous catheter with tip over the mid SVC.No pneumothorax. Small right pleural effusion versus pleural scarring. Signed: Bryan Christianson MDReport Verified Date/Time: 01/24/2018 00:09:20 Reading Location: [address] Consult Reading Room [id number] 23:29:00 Test Item Value Reference Range Comments PARTIAL THROMBOPLASTIN TIME (BEAKER) (test > seconds 22.5-36.0 ockr=649) POCT-GLUCOSE [id number] 23:00:00 Test Item Value Reference Range Comments POC-GLUCOSE METER (BEAKER) 142 mg/dL 70-[address] [facility] [address] [facility] (test vbtd=8093) [facility] [address] [id number] 22:22:00 Test Item Value Reference Range Comments MAGNESIUM (BEAKER) (test kofw=811) 1.9 mg/dL 1.6-2.6 CALCIUM, [id number] 22:10:00 Test Item Value Reference Range Comments CALCIUM IONIZED (BEAKER) (test rcir=030) 1.04 mmol/L 1.12-1.27 PH, BLOOD (BEAKER) (test yfhb=8531) 7.41 HEPATITIS B SURFACE [id number] 19:32:00 Test Item Value Reference Range Comments HEPATITIS B SURFACE ANTIGEN (2) (BEAKER) (test Nonreactive Nonreactive ggnr=8274) HIV-1 ANTIGEN WITH HIV-1/2 [id number] 19:32:00 Test Item Value Reference Range Comments HIV-1 ANTIGEN WITH HIV 1\\T\\2 ANTIBODY (2) Nonreactive Nonreactive (BEAKER) (test uiwe=4947) [id number] 19:23:00 Test Item Value Reference Range Comments PARTIAL THROMBOPLASTIN TIME (BEAKER) (test > seconds 22.5-36.0 miyq=116) BASIC METABOLIC [id number] 19:01:00 Test Item Value Reference Range Comments SODIUM (BEAKER) (test 136 meq/L 136-145 oxct=690) POTASSIUM (BEAKER) (test 4.6 meq/L 3.5-5.1 pyin=834) CHLORIDE (BEAKER) (test 109 meq/L 98-107 gmff=250) CO2 (BEAKER) (test 19 meq/L 22-29 yulc=524) BLOOD UREA NITROGEN 14 mg/dL 7-21 (BEAKER) (test bhdy=851) CREATININE (BEAKER) (test 1.75 mg/dL 0.57-1.25 qqev=222) GLUCOSE RANDOM (BEAKER) 154 mg/dL 70-105 (test vrgt=903) CALCIUM (BEAKER) (test 8.1 mg/dL 8.4-10.2 vynd=512) EGFR (BEAKER) (test 40 mL/min/1.73 sq m ESTIMATED GFR IS NOT dzbh=9030) ACCURATE CREATININE CLEARANCE IN PREDICTING GLOMERULAR FILTRATION RATE. ESTIMATED GFR IS NOT APPLICABLE FOR DIALYSIS PATIENTS. CBC (HEMOGRAM ONLY)2018-01-23 18:45:00 Test Item Value Reference Range Comments WHITE BLOOD CELL COUNT (BEAKER) (test swnd=896) 15.9 K/ L 3.5-10.5 RED BLOOD CELL COUNT (BEAKER) (test yzuu=629) 4.00 M/ L 4.63-6.08 HEMOGLOBIN (BEAKER) (test cnjo=448) 11.9 GM/DL 13.7-17.5 HEMATOCRIT (BEAKER) (test dtjl=055) 38.0 % 40.1-51.0 MEAN CORPUSCULAR VOLUME (BEAKER) (test sxwk=101) 95.0 fL 79.0-92.2 MEAN CORPUSCULAR HEMOGLOBIN (BEAKER) (test 29.8 pg 25.7-32.2 pugu=024) MEAN CORPUSCULAR HEMOGLOBIN CONC (BEAKER) (test 31.3 GM/DL 32.3-36.5 mkiy=888) RED CELL DISTRIBUTION WIDTH (BEAKER) (test 13.7 % 11.6-14.4 qztq=530) PLATELET COUNT (BEAKER) (test fhad=926) 253 K/CU MM 150-450 MEAN PLATELET VOLUME (BEAKER) (test umfr=937) 9.7 fL 9.4-12.4 NUCLEATED RED BLOOD CELLS (BEAKER) (test 0 /100 WBC 0-0 sxwg=827) BLOOD GAS, [id number] 18:42:00 Test Item Value Reference Range Comments PH ARTERIAL (BEAKER) (test jivy=990) 7.34 7.35-7.45 PCO2 ARTERIAL (BEAKER) (test tnln=849) 38 mmHg 35-45 PO2 ARTERIAL (BEAKER) (test bjte=578) 92 mmHg 80-90 O2 SATURATION ARTERIAL (BEAKER) (test zing=978) 97.4 % 96.0-97.0 HCO3 ARTERIAL (BEAKER) (test tphv=449) 21 mmol/L 21-29 BASE EXCESS ARTERIAL (BEAKER) (test jchi=550) -5.3 mmol/L -2.0-3.0 PATIENT TEMPERATURE (BEAKER) (test ribl=6443) 34.7 C FIO2 (BEAKER) (test lusb=1049) 28.0 % GLUCOSE-STAT [id number] 18:42:00 Test Item Value Reference Range Comments GLUCOSE RANDOM (BEAKER) (test wefj=829) 149 mg/dL 70-110 POTASSIUM-STAT [id number] 18:42:00 Test Item Value Reference Range Comments POTASSIUM (BEAKER) (test ebqu=036) 4.5 meq/L 3.6-5.5 [id number] 17:53:00 Test Item Value Reference Range Comments ACTIVATED CLOTTING TIME [address] [facility] [address] (BEAKER) (test hnrd=471) [place] [address] [id number] 17:53:00 Test Item Value Reference Range Comments ACTIVATED CLOTTING TIME 312 sec TESTED AT [place] [id number] (BEAKER) (test gsou=818) [place] [address] [id number] 17:53:00 Test Item Value Reference Range Comments ACTIVATED CLOTTING TIME 263 sec TESTED AT [place] [id number] (BEAKER) (test tyhx=432) [place] [address] [id number] 17:53:00 Test Item Value Reference Range Comments ACTIVATED CLOTTING TIME 235 sec TESTED AT [place] [address] [address] (BEAKER) (test sbvc=940) [place] [address] BASIC METABOLIC [id number] 16:20:00 Test Item Value Reference Range Comments SODIUM (BEAKER) (test 136 meq/L 136-145 jzbe=986) POTASSIUM (BEAKER) (test 3.9 meq/L 3.5-5.1 wjmm=842) CHLORIDE (BEAKER) (test 107 meq/L 98-107 qrrk=982) CO2 (BEAKER) (test 22 meq/L 22-29 cusf=720) BLOOD UREA NITROGEN 15 mg/dL 7-21 (BEAKER) (test tgzw=974) CREATININE (BEAKER) (test 1.63 mg/dL 0.57-1.25 kwco=734) GLUCOSE RANDOM (BEAKER) 103 mg/dL 70-105 (test whbl=299) CALCIUM (BEAKER) (test 8.4 mg/dL 8.4-10.2 jett=776) EGFR (BEAKER) (test 43 mL/min/1.73 sq m ESTIMATED GFR IS NOT pbhk=5172) ACCURATE CREATININE CLEARANCE IN PREDICTING GLOMERULAR FILTRATION RATE. ESTIMATED GFR IS NOT APPLICABLE FOR DIALYSIS PATIENTS. [id number] 15:46:00 Test Item Value Reference Range Comments PARTIAL THROMBOPLASTIN TIME (BEAKER) (test 24.7 seconds 22.5-36.0 tncu=291) PROTHROMBIN [id number] 15:45:00 Test Item Value Reference Range Comments PROTIME (BEAKER) (test okrj=202) 14.0 seconds 11.7-14.7 INR (BEAKER) (test sfgu=190) 1.1 <=5.9 RECOMMENDED COUMADIN/WARFARIN INR THERAPY RANGESSTANDARD DOSE: 2.0 - 3.0 Includes: PROPHYLAXIS forvenous thrombosis, systemic embolization; TREATMENT for venous thrombosis and/or pulmonary embolus.HIGH RISK: Target INR is 2.5-3.5 for patients with mechanical heart valves.CBC W/PLT COUNT & AUTO [id number] 15:41:00 Test Item Value Reference Range Comments WHITE BLOOD CELL COUNT (BEAKER) (test rgju=823) 14.3 K/ L 3.5-10.5 RED BLOOD CELL COUNT (BEAKER) (test vftc=180) 4.32 M/ L 4.63-6.08 HEMOGLOBIN (BEAKER) (test uueq=168) 13.0 GM/DL 13.7-17.5 HEMATOCRIT (BEAKER) (test wecm=538) 40.7 % 40.1-51.0 MEAN CORPUSCULAR VOLUME (BEAKER) (test utps=069) 94.2 fL 79.0-92.2 MEAN CORPUSCULAR HEMOGLOBIN (BEAKER) (test 30.1 pg 25.7-32.2 tlze=345) MEAN CORPUSCULAR HEMOGLOBIN CONC (BEAKER) (test 31.9 GM/DL 32.3-36.5 xnhb=327) RED CELL DISTRIBUTION WIDTH (BEAKER) (test 13.6 % 11.6-14.4 tayv=502) PLATELET COUNT (BEAKER) (test sdww=128) 240 K/CU MM 150-450 MEAN PLATELET VOLUME (BEAKER) (test porz=660) 9.6 fL 9.4-12.4 NUCLEATED RED BLOOD CELLS (BEAKER) (test 0 /100 WBC 0-0 acwm=831) NEUTROPHILS RELATIVE PERCENT (BEAKER) (test 83 % yxeg=779) LYMPHOCYTES RELATIVE PERCENT (BEAKER) (test 11 % wkgo=279) MONOCYTES RELATIVE PERCENT (BEAKER) (test 5 % sdha=179) EOSINOPHILS RELATIVE PERCENT (BEAKER) (test 0 % joln=214) BASOPHILS RELATIVE PERCENT (BEAKER) (test 0 % kluo=268) NEUTROPHILS ABSOLUTE COUNT (BEAKER) (test 11.79 K/ L 1.78-5.38 yylb=875) LYMPHOCYTES ABSOLUTE COUNT (BEAKER) (test 1.57 K/ L 1.32-3.57 svwj=598) MONOCYTES ABSOLUTE COUNT (BEAKER) (test 0.75 K/ L 0.30-0.82 cmqi=373) EOSINOPHILS ABSOLUTE COUNT (BEAKER) (test 0.01 K/ L 0.04-0.54 cjte=539) BASOPHILS ABSOLUTE COUNT (BEAKER) (test 0.05 K/ L 0.01-0.08 yxwa=845) IMMATURE GRANULOCYTES-RELATIVE PERCENT (BEAKER) 1 % 0-1 (test egft=6539) TISSUE [id number] 14:59:00Surgical Pathology Report Case: [id number] Authorizing Provider: Humza Oconnor MD Collected: 11/17/2017 0937 Ordering Location: [facility] CV Recovery Room 2 Received: 11/17/2017 1003 Pathologist: Vince Tobias MD Specimen: Plaque, right femoral plaque ARTERY, RIGHT FEMORAL, THROMBECTOMY :FIBRIN THROMBUSFIBROVASCULAR AND FIBROADIPOSE TISSUE Signing Pathologist Direct Phone Line: [phone] signed by Vince Tobias MD on at 2:59 [id number] femoral plaqueReceived in saline labeled "plaque", description "right femoral plaque" arefour irregular, caban-white to yellow-rose, rubbery fragments of plaque-like material measuring 3.0 x 2.5 x 0.3 cm in aggregate. sectioning reveals no discrete masses. Forensic Manager sections are submitted in cassette A1. DB/ew PerformedBASI METABOLIC [id number] 06: 17:00 Test Item Value Reference Range Comments SODIUM (BEAKER) (test 137 meq/L 136-145 desz=524) POTASSIUM (BEAKER) (test 4.0 meq/L 3.5-5.1 zenx=422) CHLORIDE (BEAKER) (test 108 meq/L 98-107 crqr=310) CO2 (BEAKER) (test 22 meq/L 22-29 grys=841) BLOOD UREA NITROGEN 19 mg/dL 7-21 (BEAKER) (test ldma=075) CREATININE (BEAKER) (test 1.54 mg/dL 0.57-1.25 owxg=639) GLUCOSE RANDOM (BEAKER) 99 mg/dL 70-105 (test gpdw=228) CALCIUM (BEAKER) (test 8.7 mg/dL 8.4-10.2 wmfp=910) EGFR (BEAKER) (test 46 mL/min/1.73 sq m ESTIMATED GFR IS NOT qizu=6872) ACCURATE CREATININE CLEARANCE IN PREDICTING GLOMERULAR FILTRATION RATE. ESTIMATED GFR IS NOT APPLICABLE FOR DIALYSIS PATIENTS. CBC (HEMOGRAM ONLY)2017-11-21 05:21:00 Test Item Value Reference Range Comments WHITE BLOOD CELL COUNT (BEAKER) (test hdrn=340) 8.6 K/ L 3.5-10.5 RED BLOOD CELL COUNT (BEAKER) (test jkmy=852) 4.33 M/ L 4.63-6.08 HEMOGLOBIN (BEAKER) (test xubm=191) 14.1 GM/DL 13.7-17.5 HEMATOCRIT (BEAKER) (test ufeg=113) 43.3 % 40.1-51.0 MEAN CORPUSCULAR VOLUME (BEAKER) (test kabf=437) 100.0 fL 79.0-92.2 MEAN CORPUSCULAR HEMOGLOBIN (BEAKER) (test 32.6 pg 25.7-32.2 uann=714) MEAN CORPUSCULAR HEMOGLOBIN CONC (BEAKER) (test 32.6 GM/DL 32.3-36.5 qebf=615) RED CELL DISTRIBUTION WIDTH (BEAKER) (test 15.2 % 11.6-14.4 cdat=813) PLATELET COUNT (BEAKER) (test takr=000) 173 K/CU MM 150-450 MEAN PLATELET VOLUME (BEAKER) (test jqyo=265) 9.7 fL 9.4-12.4 NUCLEATED RED BLOOD CELLS (BEAKER) (test 0 /100 WBC 0-0 zplk=337) BASIC METABOLIC [id number] 10:29:00 Test Item Value Reference Range Comments SODIUM (BEAKER) (test 138 meq/L 136-145 ndwy=369) POTASSIUM (BEAKER) (test 4.0 meq/L 3.5-5.1 rzmf=556) CHLORIDE (BEAKER) (test 109 meq/L 98-107 lrtv=519) CO2 (BEAKER) (test 21 meq/L 22-29 llnc=220) BLOOD UREA NITROGEN 15 mg/dL 7-21 (BEAKER) (test vlrm=602) CREATININE (BEAKER) (test 1.60 mg/dL 0.57-1.25 nmni=357) GLUCOSE RANDOM (BEAKER) 101 mg/dL 70-105 (test pfwq=371) CALCIUM (BEAKER) (test 8.7 mg/dL 8.4-10.2 vvub=778) EGFR (BEAKER) (test 44 mL/min/1.73 sq m ESTIMATED GFR IS NOT unjx=4030) ACCURATE CREATININE CLEARANCE IN PREDICTING GLOMERULAR FILTRATION RATE. ESTIMATED GFR IS NOT APPLICABLE FOR DIALYSIS PATIENTS. LIPID [id number] 04:26:00 Test Item Value Reference Range Comments TRIGLYCERIDES (BEAKER) (test bvgy=167) 119 mg/dL CHOLESTEROL (BEAKER) (test mwea=741) 123 mg/dL HDL CHOLESTEROL (BEAKER) (test kvfy=124) 26 mg/dL LDL CHOLESTEROL CALCULATED (BEAKER) (test 73 mg/dL gsdh=084) Triglyceride Reference Range: Low Risk <150 Borderline 150- 199 High Risk 200-499 Very High Risk >=500Cholesterol Reference Range: Low Risk <200 Borderline 200-239 High Risk > 240HDL Cholesterol Reference Range: Low Risk >=60 High Risk <40LDL Cholesterol Reference Range: Optimal <100 Near Optimal 100-129 Borderline 130-159 High 160-189 Very High >=[id number] 05:39:00 Test Item Value Reference Range Comments MAGNESIUM (BEAKER) (test pnqk=077) 2.0 mg/dL 1.6-2.6 BASIC METABOLIC [id number] 05:39:00 Test Item Value Reference Range Comments SODIUM (BEAKER) (test 137 meq/L 136-145 tgfu=014) POTASSIUM (BEAKER) (test 4.0 meq/L 3.5-5.1 nprv=899) CHLORIDE (BEAKER) (test 109 meq/L 98-107 ozfn=378) CO2 (BEAKER) (test 22 meq/L unol=178) BLOOD UREA NITROGEN 16 mg/dL 7-21 (BEAKER) (test bzhk=484) CREATININE (BEAKER) (test 1.76 mg/dL 0.57-1.25 ynvx=868) GLUCOSE RANDOM (BEAKER) 101 mg/dL 70-105 (test xpcz=035) CALCIUM (BEAKER) (test 8.5 mg/dL 8.4-10.2 hniq=899) EGFR (BEAKER) (test 39 mL/min/1.73 sq m ESTIMATED GFR IS NOT famk=6494) ACCURATE CREATININE CLEARANCE IN PREDICTING GLOMERULAR FILTRATION RATE. ESTIMATED GFR IS NOT APPLICABLE FOR DIALYSIS PATIENTS. CBC W/PLT COUNT & AUTO [id number] 05:04:00 Test Item Value Reference Range Comments WHITE BLOOD CELL COUNT (BEAKER) (test ffoj=430) 8.2 K/ L 3.5-10.5 RED BLOOD CELL COUNT (BEAKER) (test rima=883) 4.08 M/ L 4.63-6.08 HEMOGLOBIN (BEAKER) (test lykh=795) 13.1 GM/DL 13.7-17.5 HEMATOCRIT (BEAKER) (test sevt=825) 40.2 % 40.1-51.0 MEAN CORPUSCULAR VOLUME (BEAKER) (test fvjh=729) 98.5 fL 79.0-92.2 MEAN CORPUSCULAR HEMOGLOBIN (BEAKER) (test 32.1 pg 25.7-32.2 buti=600) MEAN CORPUSCULAR HEMOGLOBIN CONC (BEAKER) (test 32.6 GM/DL 32.3-36.5 gveh=857) RED CELL DISTRIBUTION WIDTH (BEAKER) (test 15.0 % 11.6-14.4 lngk=500) PLATELET COUNT (BEAKER) (test ttgp=374) 153 K/CU MM 150-450 MEAN PLATELET VOLUME (BEAKER) (test xhuj=887) 9.7 fL 9.4-12.4 NUCLEATED RED BLOOD CELLS (BEAKER) (test 0 /100 WBC 0-0 bfpz=930) NEUTROPHILS RELATIVE PERCENT (BEAKER) (test 68 % kadl=057) LYMPHOCYTES RELATIVE PERCENT (BEAKER) (test 19 % huna=363) MONOCYTES RELATIVE PERCENT (BEAKER) (test 9 % irks=882) EOSINOPHILS RELATIVE PERCENT (BEAKER) (test 4 % zthp=000) BASOPHILS RELATIVE PERCENT (BEAKER) (test 0 % saeq=815) NEUTROPHILS ABSOLUTE COUNT (BEAKER) (test 5.57 K/ L 1.78-5.38 nuvi=769) LYMPHOCYTES ABSOLUTE COUNT (BEAKER) (test 1.60 K/ L 1.32-3.57 ehec=310) MONOCYTES ABSOLUTE COUNT (BEAKER) (test 0.70 K/ L 0.30-0.82 lldp=856) EOSINOPHILS ABSOLUTE COUNT (BEAKER) (test 0.30 K/ L 0.04-0.54 uvlm=408) BASOPHILS ABSOLUTE COUNT (BEAKER) (test 0.03 K/ L 0.01-0.08 vskn=182) IMMATURE GRANULOCYTES-RELATIVE PERCENT (BEAKER) 1 % 0-1 (test qzzi=1470) [id number] 07:37:00 Test Item Value Reference Range Comments MAGNESIUM (BEAKER) (test qtbh=519) 2.0 mg/dL 1.6-2.6 BASIC METABOLIC [id number] 07:37:00 Test Item Value Reference Range Comments SODIUM (BEAKER) (test 136 meq/L 136-145 ebwk=628) POTASSIUM (BEAKER) (test 4.4 meq/L 3.5-5.1 mjmt=089) CHLORIDE (BEAKER) (test 106 meq/L 98-107 ymqo=793) CO2 (BEAKER) (test 22 meq/L 22-29 hpib=256) BLOOD UREA NITROGEN 15 mg/dL 7-21 (BEAKER) (test lnhs=570) CREATININE (BEAKER) (test 1.59 mg/dL 0.57-1.25 iipg=321) GLUCOSE RANDOM (BEAKER) 99 mg/dL 70-105 (test qbol=925) CALCIUM (BEAKER) (test 8.7 mg/dL 8.4-10.2 gyeg=485) EGFR (BEAKER) (test 44 mL/min/1.73 sq m ESTIMATED GFR IS NOT deiw=4879) ACCURATE CREATININE CLEARANCE IN PREDICTING GLOMERULAR FILTRATION RATE. ESTIMATED GFR IS NOT APPLICABLE FOR DIALYSIS PATIENTS. BASIC METABOLIC [id number] 11:14:00 Test Item Value Reference Range Comments SODIUM (BEAKER) (test 139 meq/L 136-145 cvkg=220) POTASSIUM (BEAKER) (test 4.5 meq/L 3.5-5.1 pzor=008) CHLORIDE (BEAKER) (test 111 meq/L 98-107 hhnv=541) CO2 (BEAKER) (test 21 meq/L 22-29 awin=026) BLOOD UREA NITROGEN 12 mg/dL 7-21 (BEAKER) (test pmnb=448) CREATININE (BEAKER) (test 1.58 mg/dL 0.57-1.25 yrxx=852) GLUCOSE RANDOM (BEAKER) 103 mg/dL 70-105 (test lgsl=381) CALCIUM (BEAKER) (test 9.2 mg/dL 8.4-10.2 isgo=622) EGFR (BEAKER) (test 45 mL/min/1.73 sq m ESTIMATED GFR IS NOT fmim=6318) ACCURATE CREATININE CLEARANCE IN PREDICTING GLOMERULAR FILTRATION RATE. ESTIMATED GFR IS NOT APPLICABLE FOR DIALYSIS PATIENTS. CBC W/PLT COUNT & AUTO [id number] 10:50:00 Test Item Value Reference Range Comments WHITE BLOOD CELL COUNT (BEAKER) (test wzlc=035) 8.7 K/ L 3.5-10.5 RED BLOOD CELL COUNT (BEAKER) (test frbv=893) 4.12 M/ L 4.63-6.08 HEMOGLOBIN (BEAKER) (test pbjc=966) 13.4 GM/DL 13.7-17.5 HEMATOCRIT (BEAKER) (test tglb=344) 41.5 % 40.1-51.0 MEAN CORPUSCULAR VOLUME (BEAKER) (test ndwb=898) 100.7 fL 79.0-92.2 MEAN CORPUSCULAR HEMOGLOBIN (BEAKER) (test 32.5 pg 25.7-32.2 oaty=899) MEAN CORPUSCULAR HEMOGLOBIN CONC (BEAKER) (test 32.3 GM/DL 32.3-36.5 yjji=604) RED CELL DISTRIBUTION WIDTH (BEAKER) (test 15.1 % 11.6-14.4 pqku=414) PLATELET COUNT (BEAKER) (test irfh=561) 231 K/CU MM 150-450 MEAN PLATELET VOLUME (BEAKER) (test wbgl=086) 8.9 fL 9.4-12.4 NUCLEATED RED BLOOD CELLS (BEAKER) (test 0 /100 WBC 0-0 lahp=767) NEUTROPHILS RELATIVE PERCENT (BEAKER) (test 70 % braw=663) LYMPHOCYTES RELATIVE PERCENT (BEAKER) (test 21 % kjoj=475) MONOCYTES RELATIVE PERCENT (BEAKER) (test 6 % dsvg=708) EOSINOPHILS RELATIVE PERCENT (BEAKER) (test 3 % ozww=508) BASOPHILS RELATIVE PERCENT (BEAKER) (test 0 % mrht=585) NEUTROPHILS ABSOLUTE COUNT (BEAKER) (test 6.04 K/ L 1.78-5.38 cesn=400) LYMPHOCYTES ABSOLUTE COUNT (BEAKER) (test 1.80 K/ L 1.32-3.57 ogan=219) MONOCYTES ABSOLUTE COUNT (BEAKER) (test 0.51 K/ L 0.30-0.82 iwjp=068) EOSINOPHILS ABSOLUTE COUNT (BEAKER) (test 0.24 K/ L 0.04-0.54 waae=712) BASOPHILS ABSOLUTE COUNT (BEAKER) (test 0.02 K/ L 0.01-0.08 ibsg=233) IMMATURE GRANULOCYTES-RELATIVE PERCENT (BEAKER) 1 % 0-1 (test qois=7316) GLUCOSE-STAT [id number] 10:35:00 Test Item Value Reference Range Comments GLUCOSE RANDOM (BEAKER) (test vyus=210) 99 mg/dL 70-110 Only if arterial line in place and/or patient on ventilatorSODIUM NA-STAT [id number] 10:35:00 Test Item Value Reference Range Comments SODIUM (BEAKER) (test tnvr=760) 137 meq/L 135-148 Only if arterial line in place and/or patient on ventilatorPOTASSIUM-STAT [id number] 10:35:00 Test Item Value Reference Range Comments POTASSIUM (BEAKER) (test jaba=905) 4.4 meq/L 3.6-5.5 Only if arterial line in place and/or patient on ventilatorHGB/HCT (H&H) - STAT [id number] 10:35:00 Test Item Value Reference Range Comments HEMOGLOBIN (BEAKER) (test xefj=966) 14.2 g/dL 13.0-16.8 HEMATOCRIT (BEAKER) (test bokx=234) 42.0 % 40.0-50.0 Only if arterial line in place and/or patient on ventilatorBLOOD GAS, [id number] 10:35:00 Test Item Value Reference Range Comments PH ARTERIAL (BEAKER) (test bgkm=926) 7.37 7.35-7.45 PCO2 ARTERIAL (BEAKER) (test aihp=561) 37 mmHg 35-45 PO2 ARTERIAL (BEAKER) (test kdet=237) 132 mmHg 80-90 O2 SATURATION ARTERIAL (BEAKER) (test zqyq=477) 98.6 % 96.0-97.0 HCO3 ARTERIAL (BEAKER) (test daoi=184) 21 mmol/L 21-29 BASE EXCESS ARTERIAL (BEAKER) (test dfyu=281) -4.0 mmol/L -2.0-3.0 PATIENT TEMPERATURE (BEAKER) (test wkeq=6723) 36.4 C FIO2 (BEAKER) (test whos=4112) 48.0 % Only if arterial line in place and/or patient on ventilatorBLOOD GAS, [id number] 09:03:00 Test Item Value Reference Range Comments PH ARTERIAL (BEAKER) (test siea=341) 7.36 7.35-7.45 PCO2 ARTERIAL (BEAKER) (test fqfw=134) 40 mmHg 35-45 PO2 ARTERIAL (BEAKER) (test rllq=560) 153 mmHg 80-90 O2 SATURATION ARTERIAL (BEAKER) (test fdsz=246) 99.0 % 96.0-97.0 HCO3 ARTERIAL (BEAKER) (test arlq=719) 23 mmol/L 21-29 BASE EXCESS ARTERIAL (BEAKER) (test ahgd=635) -3.1 mmol/L -2.0-3.0 PATIENT TEMPERATURE (BEAKER) (test tfkl=6193) 35.3 C FIO2 (BEAKER) (test aqxp=3771) 60.0 % CALCIUM, [id number] 09:03:00 Test Item Value Reference Range Comments CALCIUM IONIZED (BEAKER) (test gvas=278) 1.06 mmol/L 1.12-1.27 PH, BLOOD (BEAKER) (test pquk=7651) 7.34 GLUCOSE-STAT [id number] 09:02:00 Test Item Value Reference Range Comments GLUCOSE RANDOM (BEAKER) (test ztty=430) 106 mg/dL 70-110 SODIUM NA-STAT [id number] 09:02:00 Test Item Value Reference Range Comments SODIUM (BEAKER) (test fcgy=856) 136 meq/L 135-148 POTASSIUM-STAT [id number] 09:02:00 Test Item Value Reference Range Comments POTASSIUM (BEAKER) (test jnfm=871) 4.2 meq/L 3.6-5.5 HGB/HCT (H&H) - STAT [id number] 09:02:00 Test Item Value Reference Range Comments HEMOGLOBIN (BEAKER) (test rjjj=686) 13.5 g/dL 13.0-16.8 HEMATOCRIT (BEAKER) (test tggd=593) 40.0 % 40.0-50.0 URINALYSIS W/ [id number] 07:46:00 Test Item Value Reference Range Comments COLOR (BEAKER) (test vrou=643) Light Yellow CLARITY (BEAKER) (test dkbp=072) Clear SPECIFIC GRAVITY UA (BEAKER) (test pwbh=054) 1.009 1.001-1.035 PH UA (BEAKER) (test jqya=835) 6.0 5.0-8.0 PROTEIN UA (BEAKER) (test fdui=382) Negative Negative GLUCOSE UA (BEAKER) (test uhxp=205) Negative Negative KETONES UA (BEAKER) (test kjhf=794) Negative Negative BILIRUBIN UA (BEAKER) (test xvny=414) Negative Negative BLOOD UA (BEAKER) (test vsiw=807) Negative Negative NITRITE UA (BEAKER) (test jatg=875) Negative Negative LEUKOCYTE ESTERASE UA (BEAKER) (test bxla=192) Negative Negative UROBILINOGEN UA (BEAKER) (test appk=307) 0.2 mg/dL 0.2-1.0 RBC UA (BEAKER) (test aell=901) 1 /HPF WBC UA (BEAKER) (test dhdh=331) < /HPF SOURCE(BEAKER) (test xaae=6203) Urine, Voided [id number] 04:52:00 Test Item Value Reference Range Comments MAGNESIUM (BEAKER) (test dfqi=859) 2.1 mg/dL 1.6-2.6 COMPREHENSIVE METABOLIC [id number] 04:52:00 Test Item Value Reference Range Comments TOTAL PROTEIN (BEAKER) 6.2 gm/dL 6.0-8.3 (test naek=556) ALBUMIN (BEAKER) (test 3.6 g/dL 3.5-5.0 drxn=2473) ALKALINE PHOSPHATASE 83 U/L 40-150 (BEAKER) (test ahql=954) BILIRUBIN TOTAL (BEAKER) 0.4 mg/dL 0.2-1.2 (test cban=386) SODIUM (BEAKER) (test 137 meq/L 136-145 skrh=557) POTASSIUM (BEAKER) (test 4.4 meq/L 3.5-5.1 lzqy=329) CHLORIDE (BEAKER) (test 108 meq/L 98-107 ufzh=067) CO2 (BEAKER) (test 22 meq/L 22-29 odql=854) BLOOD UREA NITROGEN 14 mg/dL 7-21 (BEAKER) (test ecju=073) CREATININE (BEAKER) (test 1.61 mg/dL 0.57-1.25 cpzy=575) GLUCOSE RANDOM (BEAKER) 89 mg/dL 70-105 (test dedn=768) CALCIUM (BEAKER) (test 8.9 mg/dL 8.4-10.2 jqof=032) AST (SGOT) (BEAKER) (test 18 U/L 5-34 wyfn=288) ALT (SGPT) (BEAKER) (test 15 U/L 6-55 vzvh=882) EGFR (BEAKER) (test 44 mL/min/1.73 sq m ESTIMATED GFR IS NOT anwg=1385) ACCURATE CREATININE CLEARANCE IN PREDICTING GLOMERULAR FILTRATION RATE. ESTIMATED GFR IS NOT APPLICABLE FOR DIALYSIS PATIENTS. [id number] 04:50:00 Test Item Value Reference Range Comments PARTIAL THROMBOPLASTIN TIME (BEAKER) (test 27.8 seconds 22.5-36.0 atqm=109) PROTHROMBIN TIME/[id number] 04:49:00 Test Item Value Reference Range Comments PROTIME (BEAKER) (test eumq=274) 13.0 seconds 11.7-14.7 INR (BEAKER) (test rlpu=798) 1.0 <=5.9 RECOMMENDED COUMADIN/WARFARIN INR THERAPY RANGESSTANDARD DOSE: 2.0 - 3.0 Includes: PROPHYLAXIS forvenous thrombosis, systemic embolization; TREATMENT for venous thrombosis and/or pulmonary embolus.HIGH RISK: Target INR is 2.5-3.5 for patients with mechanical heart valves.CBC W/PLT COUNT & AUTO [id number] 04:34:00 Test Item Value Reference Range Comments WHITE BLOOD CELL COUNT (BEAKER) (test cvbx=392) 7.6 K/ L 3.5-10.5 RED BLOOD CELL COUNT (BEAKER) (test eecw=608) 4.47 M/ L 4.63-6.08 HEMOGLOBIN (BEAKER) (test ntkg=275) 14.4 GM/DL 13.7-17.5 HEMATOCRIT (BEAKER) (test porq=289) 44.2 % 40.1-51.0 MEAN CORPUSCULAR VOLUME (BEAKER) (test irll=889) 98.9 fL 79.0-92.2 MEAN CORPUSCULAR HEMOGLOBIN (BEAKER) (test 32.2 pg 25.7-32.2 swms=838) MEAN CORPUSCULAR HEMOGLOBIN CONC (BEAKER) (test 32.6 GM/DL 32.3-36.5 uzlr=467) RED CELL DISTRIBUTION WIDTH (BEAKER) (test 14.8 % 11.6-14.4 xvif=774) PLATELET COUNT (BEAKER) (test zrxb=278) 244 K/CU MM 150-450 MEAN PLATELET VOLUME (BEAKER) (test sdlw=182) 9.2 fL 9.4-12.4 NUCLEATED RED BLOOD CELLS (BEAKER) (test 0 /100 WBC 0-0 wmyi=394) NEUTROPHILS RELATIVE PERCENT (BEAKER) (test 68 % pwxp=900) LYMPHOCYTES RELATIVE PERCENT (BEAKER) (test 20 % itdy=610) MONOCYTES RELATIVE PERCENT (BEAKER) (test 7 % vznv=262) EOSINOPHILS RELATIVE PERCENT (BEAKER) (test 5 % duuw=558) BASOPHILS RELATIVE PERCENT (BEAKER) (test 0 % snhq=979) NEUTROPHILS ABSOLUTE COUNT (BEAKER) (test 5.11 K/ L 1.78-5.38 erlq=586) LYMPHOCYTES ABSOLUTE COUNT (BEAKER) (test 1.54 K/ L 1.32-3.57 mzst=081) MONOCYTES ABSOLUTE COUNT (BEAKER) (test 0.51 K/ L 0.30-0.82 lbxb=397) EOSINOPHILS ABSOLUTE COUNT (BEAKER) (test 0.36 K/ L 0.04-0.54 srdn=624) BASOPHILS ABSOLUTE COUNT (BEAKER) (test 0.03 K/ L 0.01-0.08 betu=991) IMMATURE GRANULOCYTES-RELATIVE PERCENT (BEAKER) 0 % 0-1 (test srhe=9505) RAD, CHEST, 1 VIEW, NON [id number] 22:42:00Reason for exam:->pre op evalShould this be performed at the bedside?->YesFINAL REPORT INDICATION: pre op eval COMPARISON: None TECHNIQUE: Single frontal view of the chest. FINDINGS: Lungs and pleura: Clear lungs. No effusion.Heart and mediastinum: Normal heart size. Unremarkable mediastinal contours.Osseous structures: No acute abnormality.Other: None. IMPRESSION: No acute intrathoracic abnormality. Signed: JR Horta [facility] Verified Date/Time: 11/16/2017 22:42:55 Reading Location: [address] Reading Room
--- NOTE | 2018-02-05 14:12 | RAD REPORT ---
EXAM DESCRIPTION: CT - Head Brain Wo Cont - 02/05/2018 2:04 pm CLINICAL HISTORY: Dizziness;Syncope COMPARISON: Head Brain Wo Cont dated 03/22/2016 TECHNIQUE: All CT scans are performed using dose optimization technique as appropriate and may inclu de automated exposure control or mA/KV adjustment according to patient size. FINDINGS: No intracranial hemorrhage, hydrocephalus or extra-axial fluid collection.Mild generalized brain atrophy is present with mild periventricular and deep white matter chronic microvascular ische jose changes.No areas of brain edema or evidence of midline shift. The paranasal sinuses and mastoids are clear. The calvarium is intact. IMPRESSION: No acute intracranial abnormality.
--- NOTE | 2018-02-05 14:57 | RAD REPORT ---
EXAM DESCRIPTION: US - Extremity Venous Uni Ltd - 02/05/2018 2:44 pm CLINICAL HISTORY: SWELLING Leg swelling and edema. COMPARISON: Upper Lower Extrem Art Multi dated 11/15/2017 FINDINGS: Right lower extremity venous system was interrogated with Doppler technique. Normal flow, compressibility and augmentation was noted. There is no DVT present. IMPRESSION: No evidence of right lower extremity deep venous thrombosis.
[2018-02-05 15:12] LABS: Absolute Monocytes 0.8 K/uL (0.1-1.3); Absolute Neutrophil 15.8 K/uL (1.8-8.0); Basophils % 0.3 % (0-1.3); Eosinophils % 0.5 % (0-4.4); Hematocrit 21.7 % (39.6-49.0); Lymphocytes % 10.6 % (15.3-44.8); MCV 92.5 fL (80-100); MPV 7.3 fL (7.6-11.3); Monocytes % 4.2 % (3.3-12.3); RBC Red Blood Cell Count 2.35 M/uL (4.33-5.43)
[2018-02-05 15:13] LABS: Protime INR 3.96
[2018-02-05 15:22] LABS: BUN Blood Urea Nitrogen 22 mg/dL (7-18); Bicarbonate 21 mmol/L (21-32); Glucose Level 111 mg/dL (74-106); Magnesium 2.3 mg/dL (1.8-2.4); NT PRO-BNP 85 pg/mL (<125); Potassium 4.3 mmol/L (3.5-5.1); Sodium Level 141 mmol/L (136-145); Troponin (Emerg Dept Use Only) < 0.02 ng/mL (0.0-0.045)
--- NOTE | 2018-02-05 16:24 | EDPHYS ---
Physician Documentation [facility] Name: Jaswinder Roa Age: 62 yrs Sex: Male : 1955 Arrival Date: 02/05/2018 Time: 13:08 Bed 5 Private MD: ED Physician Luciana Neff HPI: 02/05 16:08 This 62 yrs old Male presents to ER via EMS with complaints of syncope. kb 16:08 The patient has experienced syncope. Onset: The symptoms/episode began/occurred just kb prior to arrival. Duration: This was a single episode. Context: the episode(s) was witnessed, by a friend, occurred rastafarian, occurred while the patient was sitting, Just prior to the episode the patient experienced no apparent symptoms. Associated injury: The patient did not suffer any apparent associated injury. Associated signs and symptoms: Pertinent positives: headache, blood in stool. Current symptoms: Currently, the patient is not experiencing any symptoms, no decreased level of consciousness, no confusion, no dysphasia, no paralysis, no visual changes, headache, that is mild. The patient has not experienced similar symptoms in the past. The patient has been recently seen by a physician:. Pt reports he was at [employer]astafarian and passed out. Friend reports he was sitting next to pt and noticed him slump over for a few minutes, he woke up when he shook him. Pt reports dizziness prior to episode and headache now. Dizziness has resolved. Pt had blood clots removed from right lower extremity at [facility] last week and is on plavix, warfarin and aspirin. States he was told to increase warfarin this week. Has had blood in his stool since the day after discharge from [facility]. Historical: - Allergies: 13:15 No Known Allergies; jl7 - Home Meds: 13:15 aspirin 81 mg Oral chew 1 tab once daily [Active]; lisinopril 5 mg Oral tab 1 tab once jl7 daily [Active]; Plavix 75 mg Oral tab 1 tab once daily [Active]; Warfarin Oral [Active]; - PMHx: 13:15 Hypertension; DVT; jl7 - PSHx: 13:15 embolectomy of blood clot in right leg; jl7 - Immunization history:: Adult Immunizations not up to date. - Social history:: Smoking status: Patient uses tobacco products, smokes one pack cigarettes per day. - Ebola Screening: : No symptoms or risks identified at this time. ROS: 16:06 Constitutional: Negative for fever, chills, and weight loss, ENT: Negative for injury, kb pain, and discharge, Neck: Negative for injury, pain, and swelling, Cardiovascular: Negative for chest pain, palpitations, and edema, Respiratory: Negative for shortness of breath, cough, wheezing, and pleuritic chest pain, Back: Negative for injury and pain, : Negative for injury, bleeding, discharge, and swelling, MS/Extremity: Negative for injury and deformity, Skin: Negative for injury, rash, and discoloration. 16:06 Abdomen/GI: Positive for rectal bleeding. 16:06 Neuro: Positive for headache, syncope. Exam: 16:06 Constitutional: This is a well developed, well nourished patient who is awake, alert, kb and in no acute distress. Head/Face: Normocephalic, atraumatic. Neck: Trachea midline, no thyromegaly or masses palpated, and no cervical lymphadenopathy. Supple, full range of motion without nuchal rigidity, or vertebral point tenderness. No Meningismus. Chest/axilla: Normal chest wall appearance and motion. Nontender with no deformity. No lesions are appreciated. Cardiovascular: Regular rate and rhythm with a normal S1 and S2. No gallops, murmurs, or rubs. Normal PMI, no JVD. No pulse deficits. Respiratory: Lungs have equal breath sounds bilaterally, clear to auscultation and percussion. No rales, rhonchi or wheezes noted. No increased work of breathing, no retractions or nasal flaring. Abdomen/GI: Soft, non-tender, with normal bowel sounds. No distension or tympany. No guarding or rebound. No evidence of tenderness throughout. Skin: Warm, dry with normal turgor. Normal color with no rashes, no lesions, and no evidence of cellulitis. MS/ Extremity: Pulses equal, no cyanosis. Neurovascular intact. Full, normal range of motion. Neuro: Awake and alert, GCS 15, oriented to person, place, time, and situation. Cranial nerves II-XII grossly intact. Motor strength 5/5 in all extremities. Sensory grossly intact. Cerebellar exam normal. Normal gait. 16:06 Abdomen/GI: Rectal exam: rectal tone normal, Stool: grossly bloody, guaiac positive, the exam is chaperoned by the nurse. Vital Signs: 13:15 BP 114 / 64; Pulse 79; Resp 14 S; Pulse Ox 100% on R/A; Weight 90.72 kg (R); Height 6 jl7 ft. 2 in. (187.96 cm) (R); 13:15 Temp 97.8; sg 15:00 BP 111 / 80; Pulse 87; Resp 16 S; Pulse Ox 100% on R/A; jl7 15:53 BP 123 / 72; Pulse 82; Resp 16 S; Pulse Ox 100% on R/A; jl7 15:55 BP 101 / 73; Pulse 98; Resp 18 S; Pulse Ox 100% on R/A; jl7 15:57 BP 91 / 64; Pulse 116; Resp 24 S; Pulse Ox 100% on R/A; jl7 16:49 BP 108 / 69; Pulse 93; Resp 19 S; Pulse Ox 99% on R/A; jl7 19:25 BP 110 / 54; Pulse 86; Resp 16; Temp 98.7(O); Pulse Ox 98% on R/A; lp1 13:15 Body Mass Index 25.68 (90.72 kg, 187.96 cm) jl7 MDM: 13:37 Patient medically screened. kb 16:06 Data reviewed: vital signs, nurses notes. Data interpreted: Pulse oximetry: on room air kb is 100 %. Interpretation: normal. 16:08 Counseling: I had a detailed discussion with the patient and/or guardian regarding: the kb historical points, exam findings, and any diagnostic results supporting the discharge/admit diagnosis, lab results, radiology results, the need to transfer to another facility, [facility] does not immediately have the required specialist. 16:19 ED course: Spoke to GI specialist at [facility]. Accepts pt, but would like him kb admitted to hospitalist. Awaiting call from hospitalist. . 02/05 13:48 Order name: Basic Metabolic Panel; Complete Time: 15:26 kb 02/05 13:48 Order name: CBC with Diff; Complete Time: 15:39 kb 02/05 13:48 Order name: Magnesium; Complete Time: 15:26 kb 02/05 13:48 Order name: NT PRO-BNP; Complete Time: 15:26 kb 02/05 13:48 Order name: PT-INR; Complete Time: 15:39 kb 02/05 13:48 Order name: Troponin (emerg Dept Use Only); Complete Time: 15:26 kb 02/05 13:48 Order name: US Extremity Venous Unilateral Ltd; Complete Time: 15:01 kb 02/05 13:48 Order name: CT Head Brain wo Cont; Complete Time: 14:28 kb 02/05 16:06 Order name: Type And Screen kb 02/05 16:06 Order name: Bb Add On bd 02/05 17:10 Order name: Packed RBC Leukored -1 EDMS 02/05 13:48 Order name: EKG; Complete Time: 13:50 kb 02/05 13:48 Order name: Cardiac monitoring; Complete Time: 14:58 kb 02/05 13:48 Order name: EKG - Nurse/Tech; Complete Time: 14:58 kb 02/05 13:48 Order name: IV Saline Lock; Complete Time: 14:58 kb 02/05 13:48 Order name: Labs collected and sent; Complete Time: 14:58 kb 02/05 13:48 Order name: O2 Per Protocol; Complete Time: 14:58 kb 02/05 13:48 Order name: O2 Sat Monitoring; Complete Time: 14:58 kb 02/05 14:43 Order name: Orthostatics; Complete Time: 16:55 kb Administered Medications: 16:45 Drug: NS 0.9% 1000 ml Route: IV; Rate: 1000 ml; Site: left jugular; jl7 17:45 Follow up: IV Status: Completed infusion jl7 16:45 Drug: ProTONIX 40 mg Route: IVP; Site: left jugular; jl7 17:00 Follow up: Response: No adverse reaction jl7 17:00 Drug: ProTONIX 8 mg/hr Route: IV; Rate: 25 ml/hr; Site: left jugular; jl7 18:25 Follow up: IV Pause: 02/05/2018 18:25; IV Pause Reason: Limited IV access/Medication jl7 interaction 19:38 Follow up: IV Status: Infusion continued upon transfer lp1 18:55 Drug: [place] (7.5 mg-325 mg) 1 tabs Route: PO; jl7 19:13 Follow up: Response: Other; administered just prior to transfer jl7 Disposition: 02/06 09:55 Co-signature as Attending Physician, Luciana Neff MD. ma2 Disposition: 02/05/18 16:24 Transfer ordered to [facility]. Diagnosis are Gastrointestinal hemorrhage, unspecified, Syncope and collapse. - Reason for transfer: Higher level of care. - [facility] . - Condition is Stable. - Problem is new. - Symptoms are unchanged. Signatures: Dispatcher [employer] EDMS Aditi Colon, CORBIN-C CHILD LIFE THERAPIST-Sindy Lomeli RN RN lp1 Rc Bailey RN RN jl7 Luciana Neff MD MD ma2 Corrections: (The following items were deleted from the chart) 02/05 19:38 16:24 02/05/2018 16:24 Transfer ordered to [facility]. Diagnosis is lp1 Gastrointestinal hemorrhage, unspecified; Syncope and collapse. Reason for transfer: Higher level of care. [facility] . Condition is Stable. Problem is new. Symptoms are unchanged. kb
--- NOTE | 2018-02-05 16:24 | ER ---
Nurse's Notes [facility] Name: Jaswinder Roa Age: 62 yrs Sex: Male : 1955 Arrival Date: 02/05/2018 Time: 13:08 Bed 5 Private MD: Diagnosis: Gastrointestinal hemorrhage, unspecified;Syncope and collapse Presentation: 02/05 13:11 Presenting complaint: EMS states: Pt was at [employer] and got lightheaded and dizzy, jl7 denies syncope. Pt had 5 blood clots removed on January 23, stiches noted to right anterior ankle with ankle and foot swelling present. Transition of care: patient was not received from another setting of care. Onset of symptoms was February 05, 2018. Risk Assessment: Do you want to hurt yourself or someone else? Patient reports no desire to harm self or others. Initial Sepsis Screen: Does the patient meet any 2 criteria? No. Patient's initial sepsis screen is negative. Does the patient have a suspected source of infection? No. Patient's initial sepsis screen is negative. Care prior to arrival: None. 13:11 Method Of Arrival: EMS: [facility] 13:11 Acuity: CHICHI 3 jl7 Historical: - Allergies: 13:15 No Known Allergies; jl7 - Home Meds: 13:15 aspirin 81 mg Oral chew 1 tab once daily [Active]; lisinopril 5 mg Oral tab 1 tab once jl7 daily [Active]; Plavix 75 mg Oral tab 1 tab once daily [Active]; Warfarin Oral [Active]; - PMHx: 13:15 Hypertension; DVT; jl7 - PSHx: 13:15 embolectomy of blood clot in right leg; jl7 - Immunization history:: Adult Immunizations not up to date. - Social history:: Smoking status: Patient uses tobacco products, smokes one pack cigarettes per day. - Ebola Screening: : No symptoms or risks identified at this time. Screenin:30 Abuse screen: Denies threats or abuse. Denies injuries from another. Nutritional jl7 screening: No deficits noted. Tuberculosis screening: No symptoms or risk factors identified. Fall Risk IV access (20 points). Total Bridges Fall Scale indicates No Risk (0-24 pts). Assessment: 13:30 General: Appears uncomfortable, ill, Behavior is calm, cooperative, appropriate for jl7 age. Pain: Denies pain. Neuro: Level of Consciousness is awake, alert, obeys commands, Oriented to person, place, time, situation. Cardiovascular: Patient's skin is warm and dry. Respiratory: Airway is patent Respiratory effort is even, unlabored, Respiratory pattern is regular, symmetrical. GI: No signs and/or symptoms were reported involving the gastrointestinal system. : No signs and/or symptoms were reported regarding the genitourinary system. EENT: No signs and/or symptoms were reported regarding the EENT system. Derm: Skin is pink, warm \T\ dry. Musculoskeletal: No signs and/or symptoms reported regarding the musculoskeletal system. 14:30 Reassessment: Patient appears in no apparent distress at this time. No changes from jl7 previously documented assessment. Patient and/or family updated on plan of care and expected duration. Pain level reassessed. Patient is alert, oriented x 3, equal unlabored respirations, skin warm/dry/pink. 14:30 Reassessment: No changes from previously documented assessment. Patient and/or family jl7 updated on plan of care and expected duration. Pain level reassessed. Patient is alert, oriented x 3, equal unlabored respirations, skin warm/dry/pink. 15:30 Reassessment: Patient and/or family updated on plan of care and expected duration. Pain jl7 level reassessed. Patient is alert, oriented x 3, equal unlabored respirations, skin warm/dry/pink. 17:45 Reassessment: Pt requesting food, [place] and juice provided at this time. jl7 18:25 Reassessment: PRBC infusion started to left EJ. jl7 18:50 Reassessment: Pt c/o of sever lower back pain, reports it is chronic, provider jl7 notified, see MAR for orders. 19:10 Reassessment: During shift change, patient's IV to left EJ noted to be infiltrated; LJ lp1 EMS at bedside for transfer. Vital Signs: 13:15 BP 114 / 64; Pulse 79; Resp 14 S; Pulse Ox 100% on R/A; Weight 90.72 kg (R); Height 6 jl7 ft. 2 in. (187.96 cm) (R); 13:15 Temp 97.8; sg 15:00 BP 111 / 80; Pulse 87; Resp 16 S; Pulse Ox 100% on R/A; jl7 15:53 BP 123 / 72; Pulse 82; Resp 16 S; Pulse Ox 100% on R/A; jl7 15:55 BP 101 / 73; Pulse 98; Resp 18 S; Pulse Ox 100% on R/A; jl7 15:57 BP 91 / 64; Pulse 116; Resp 24 S; Pulse Ox 100% on R/A; jl7 16:49 BP 108 / 69; Pulse 93; Resp 19 S; Pulse Ox 99% on R/A; jl7 19:25 BP 110 / 54; Pulse 86; Resp 16; Temp 98.7(O); Pulse Ox 98% on R/A; lp1 13:15 Body Mass Index 25.68 (90.72 kg, 187.96 cm) jl7 ED Course: 13:08 Patient arrived in ED. bd 13:09 EKG done, by ED staff. jb1 13:11 Rc Bailey, ELENA is Primary Nurse. jl7 13:13 Triage completed. jl7 13:15 Arm band placed on right wrist. jl7 13:15 Patient has correct armband on for positive identification. Placed in gown. Bed in low jl7 position. Call light in reach. Side rails up X 1. butcherette on. Pulse ox on. NIBP on. Warm blanket given. 13:37 Aditi Colon FNP-C is PHCP. kb 13:37 Luciana Neff MD is Attending Physician. kb 14:04 CT Head Brain wo Cont In Process Unspecified. EDMS 14:44 Ultrasound completed. Patient tolerated well. sg3 14:44 US Extremity Venous Unilateral Ltd In Process Unspecified. EDMS 15:46 Inserted saline lock: 20 gauge in left antecubital area, using aseptic technique. Blood la1 collected. 15:46 Notified Nurse Practitioner and/or Physician Computer Processing Scheduler of a critical lab result(s), la1 HGB-[id number]. 16:33 Inserted saline lock: 18 gauge in left EJ, using aseptic technique. Blood collected. aj 19:15 Report given to ELENA Callahan. jl7 19:16 Primary Nurse role handed off by Rc Bailey RN jl7 19:22 Inserted 18 gauge 10 cm midline to left upper brachial vein on first attempt. Line with fc good blood return and flushes well. 19:35 Sindy Heard, RN is Primary Nurse. lp1 19:36 No provider procedures requiring assistance completed. Patient transferred, IV remains lp1 in place. Administered Medications: 16:45 Drug: NS 0.9% 1000 ml Route: IV; Rate: 1000 ml; Site: left jugular; jl7 17:45 Follow up: IV Status: Completed infusion jl7 16:45 Drug: ProTONIX 40 mg Route: IVP; Site: left jugular; jl7 17:00 Follow up: Response: No adverse reaction jl7 17:00 Drug: ProTONIX 8 mg/hr Route: IV; Rate: 25 ml/hr; Site: left jugular; jl7 18:25 Follow up: IV Pause: 02/05/2018 18:25; IV Pause Reason: Limited IV access/Medication jl7 interaction 19:38 Follow up: IV Status: Infusion continued upon transfer lp1 18:55 Drug: [place] (7.5 mg-325 mg) 1 tabs Route: PO; jl7 19:13 Follow up: Response: Other; administered just prior to transfer jl7 Outcome: 16:24 ER care complete, transfer ordered by . kb 19:37 Transferred by ground EMS to [facility], Transfer form completed. lp1 X-rays sent w/ patient. Note: IV infusion of blood continued; Transfer of care to Yo Sourcing Assistant 19:37 Condition: stable 19:37 Instructed on the need for transfer. 19:38 Patient left the ED. lp1 Signatures: Dispatcher [employer] EDMS Oswaldo García jb1 Aditi Colon, CONSTRUCTION TECHNOLOGY INSTRUCTOR-C CONSTRUCTION TECHNOLOGY INSTRUCTOR-CkDali Garcia Steven RN Deirdre Mccracken RN Dejah Castillo RN Sindy Brewer, RN ELENA lp1 Cortes Ta RN RN la1 Leal, Jahala, RN RN jl7 Neeru Andrew 3
[2018-02-05] MEDS ORDERED: PANTOPRAZOLE 40 MG INJ ONE (16:44)
[2018-02-05] MEDS ORDERED: NA CHLORIDE 0.9% 1,000 ML ONE (16:44)
[2018-02-05] MEDS ORDERED: PANTOPRAZOLE INJ 80 MG in NA CHLORIDE 0.9% 250 ML IV SCH (17:00)
[2018-02-05] MEDS ORDERED: NA CHLORIDE 0.9% 250 ML ONE (18:16)
[2018-02-05] MEDS ORDERED: HYDROCODONE/APAP 7.5/325 MG TAB ONE (19:06)
--- NOTE | 2018-02-06 10:07 | EKG ---
Test Date: 2018-02-05 Test Time: 13:07:19 Medical Assisting Instructor: TASH MEASUREMENT RESULTS: Intervals: Rate: 76 MN: 172 QRSD: 84 QT: 400 QTc: 450 [place]: P: 49 MN: 172 QRS: 48 T: 46 INTERPRETIVE STATEMENTS: Normal sinus rhythm Normal ECG Compared to ECG 11/15/2017 11:52:10 No significant changes Electronically Signed On 02-06-18 10:06:37 CDT by Casimiro Epperson
[2018-02-07 14:04] VITALS: BP 110/54; TEMP 98.7; O2SAT 98
== END 2018-02-05 19:38 | disposition short-term general hospital (02) ==
LOC: ER 12:57
PROC: 30233N1 Transfusion of Nonautologous Red Blood Cells into Peripheral Vein, Percutaneous Approach (ICD-10-PCS; principal; 2018-02-05)
DX: K92.2 Gastrointestinal hemorrhage, unspecified (principal); I10 Essential (primary) hypertension; F17.210 Nicotine dependence, cigarettes, uncomplicated; Z79.01 Long term (current) use of anticoagulants; Z79.82 Long term (current) use of aspirin; Z86.718 Personal history of other venous thrombosis and embolism
CPT/HCPCS: 36415; 36430; 70450; 80048; 83735; 83880; 84484; 85025; 85610; 86850; 86900; 86901; 93005; 93971; 96365; 99285; C9113 ×2; J7030; P9016

== ENCOUNTER 2018-05-14 12:52 | Emergency (ER) | payer OTHER, SELFPAY ==
--- OUTSIDE RECORDS SUMMARY | 2018-05-14 12:55 | XMS REPORT | Clinical Summary ---
:1955 Author Organization [facility] Address [address] [place] [address] Care Team Providers Name Role Phone Sharpbrijesh Primary Care Provider Arthur Alvarez Unavailable Allergies Active Allergy Reactions Severity Noted Date Comments Tramadol 11/17/2017 Intolerance to Tramadol Medications Medication Sig Dispensed Refills Start Date End Date Status gabapentin Take 1 90 capsule 1 01/28/2018 01/28/2019 Active (NEURONTIN) 100 MG capsule (100 capsule mg total) by mouth 3 (three) times daily. amLODIPine Take 1 tablet 60 tablet 1 02/16/2018 02/16/2019 Active (NORVASC) 5 MG (5 mg total) tablet by mouth 2 (two) times daily. pantoprazole Take 1 tablet 60 tablet 1 02/16/2018 Active (PROTONIX) 40 MG (40 mg total) tablet by mouth daily. aspirin 325 MG EC Take 1 tablet 30 tablet 1 02/16/2018 02/16/2019 Active tablet (325 mg total) by mouth daily. aspirin 81 MG Take 1 tablet 30 tablet 1 11/22/2017 02/16/2018 Discontinued chewable tablet (81 mg total) by mouth daily. lisinopril Take 1 tablet 30 tablet 1 11/22/2017 02/16/2018 Discontinued (PRINIVIL,ZESTRIL) (10 mg total) 10 MG tablet by mouth daily. nicotine (NICODERM Place [...] 10 days. Max Daily Amount: 4 tablets warfarin (COUMADIN) Take 1 tablet 0 01/28/2018 02/16/2018 Discontinued 5 MG tablet (5 mg total) by mouth every evening. acetaminophen-codei Take 1 tablet 30 tablet 0 01/28/2018 02/16/2018 Discontinued ne (TYLENOL #3) by mouth 300-30 mg per every 4 tablet (four) hours as needed for up to 10 days. Max Daily Amount: 6 tablets clopidogrel Take 1 tablet 30 tablet 1 01/28/2018 02/16/2018 Discontinued (PLAVIX) 75 mg (75 mg total) tablet by mouth daily. nicotine (NICODERM Place 1 patch 28 patch 0 02/16/2018 03/18/2018 CQ) 21 mg/24 hr onto the skin patch daily for 30 days. Active Problems Problem Noted Date Rectal mass 02/08/2018 Acute GI bleeding 02/05/2018 Critical lower limb ischemia 01/24/2018 Ischemia 01/23/2018 PVD (peripheral vascular disease) 11/17/2017 Peripheral vascular disease 11/16/2017 CKD (chronic kidney disease) stage 3, GFR 30-59 ml/min 04/25/2015 Overview: Baseline creatinine ~1.6-1.8 since 2016 Benign essential HTN ETOH abuse Smoking Acute respiratory insufficiency History of ETOH abuse Postoperative anemia due to acute blood loss Encounters Date Type Specialty Care Team Description 02/15/2018 Anesthesia Event Gastroenterology Steven Gonzáles MD 02/15/2018 Surgery Gastroenterology Fadi Philippe UPPER MD Nixon ENDOSCOPY,BIOPSY 02/08/2018 Surgery BRIGIDA Abernathy ANGIOS / Timothy Paniagua MD AORTOGRAM 02/06/2018 Anesthesia Event Gastroenterology Aleshia Manuel MD 02/06/2018 Surgery Gastroenterology Fadi Philippe COLONOSCOPY,POLYPECT MD Nixon GOPAL 02/05/2018 [facility] Cardiology [facility], - Encounter Elizabeth P., MD 02/16/2018 Daniel Morin MD Daniel, Jamuna V., MD 01/25/2018 Surgery Michela, ASSOCIATE AUTOMATION ENGINEER FEMORAL &/OR Timothy Paniagua MD POPLITEAL 01/23/2018 Anesthesia Event Ricardo Loyola MD 01/23/2018 [facility] Cardiology Juanjennifer, Ischemia - Encounter Carmelo Mccallum, 01/28/2018 Jairo Ramírez MD 01/23/2018 Surgery Arthur Oconnor ANGIOGRAM-LOWER MD Amira EXTREMITY 12/06/2017 Office Visit Cardiology Arthur Oconnor Postoperative state MD Amira (Primary Dx) 11/17/2017 Surgery Arthur Oconnor BYPASS,FEMORAL-POPLI MD Amira TEAL 11/17/2017 Anesthesia Event Stefan Chase AA 11/17/2017 Orders Only General Internal Medicine 11/16/2017 [facility] Cardiology Arthur Oconnor Benign essential HTN - Encounter MD Amira (Primary Dx) 11/21/2017 after 05/13/2017 Immunizations Name Dates Previously Given Next Due Influenza Four-QIV Non-PF 5+ YR 02/07/2018 Family History Medical History Relation Name Comments Heart disease Brother Heart disease Father No Known Problem Mother Kidney disease Sister Relation Name Status Comments Brother Father Mother Sister Social History Tobacco Use Types Packs/Day Years Used Date Current Every Day Smoker Cigarettes 1 30 Smokeless Tobacco: Never Used Tobacco Cessation: Ready to Quit: Yes Alcohol Use Drinks/Week oz/Week Comments Yes 3 Shots of liquor 1.8 # drinks of liqor/day Sex Assigned at Date Recorded Not on file Job Start Date Occupation Industry Not on file Not on file Not on file Travel History Travel Start Travel End No recent travel history available. Last Filed Vital Signs Vital Sign Reading Time Taken Blood Pressure 152/80 02/16/2018 1:16 PM CDT Pulse 76 02/16/2018 1:52 PM CDT Temperature 36.3 C (97.3 F) 02/16/2018 1:16 PM CDT Respiratory Rate 20 02/16/2018 1:52 PM CDT Oxygen Saturation 100% 02/16/2018 1:52 PM CDT Inhaled Oxygen Concentration 21% 02/07/2018 2:24 AM CDT Weight 88.4 kg (194 lb 14.2 oz) 02/16/2018 8:18 AM CDT Height 188 cm (6' 2") 02/14/2018 8:00 AM CDT Body Mass Index 25.02 02/16/2018 8:18 AM CDT Plan of Treatment Health Maintenance Due Date Last Done Comments INFLUENZA VACCINE Completed 02/07/2018 Implants Implanted Type Area Director Of Quality Improvement Device Shelf Model / Identifier Expiration Serial / Date Lot Mynxgrip Cardiovascular Left: CARDINAL 11/23/2019 [id number] / Implanted: Qty: 1 on 01/25/2018 by Timothy Abernathy MD [employer] / [id number] Flseal Vhsd Full Strlprep [id number] - [id number] Cement/Filler/Adh Right: BUCHANAN:BIOSCI 04/11/2019 [id number] / Implanted: Qty: 1 on 11/17/2017 by Arthur Oconnor MD esive Leg / [id number] Grft Eptfe-Heparin Rng [id number] - [id number] Graft/Patch Right: PRINCE GORE & 08/08/2021 [id number] / Implanted: Qty: 1 on 11/17/2017 by Arthur Oconnor MD Leg ASSC:MED PRDT [id number] / Procedures Procedure Name Priority Date/Time Associated Comments Diagnosis VASCULAR DIAGRAM 02/17/2018 10:50 -SCAN AM CDT CARDIAC CATH REPORT 02/17/2018 10:50 - SCAN AM CDT RHYTHM STRIP - SCAN 02/17/2018 10:50 AM CDT IR PORT-A-CATH Routine 02/16/2018 12:54 Results for this PLACEMENT PM CDT procedure are in the results section. CBC (HEMOGRAM ONLY) Routine 02/16/2018 5:26 Results for this AM CDT procedure are in the results section. BASIC METABOLIC Routine 02/16/2018 5:26 Results for this PANEL (7) AM CDT procedure are in the results section. REPORT OF PROCEDURE 02/15/2018 1:01 - ENDOSCOPY URL PM CDT FINE NEEDLE Routine 02/15/2018 11:03 Results for this ASPIRATE (FNA) AM CDT procedure are in REQUEST the results section. FINE NEEDLE AP Routine 02/15/2018 11:03 Results for this ASPIRATION BY AM CDT procedure are in CLINICIAN the results section. TISSUE EXAM AP Routine 02/15/2018 10:55 Results for this AM CDT procedure are in the results section. UPPER 02/15/2018 9:00 Rectal cancer (HCC) ENDOSCOPY,BIOPSY AM CDT Special Needs (RADIAL SCOPE) CBC (HEMOGRAM ONLY) Routine 02/15/2018 4:50 Results for this AM CDT procedure are in the results section. BASIC METABOLIC PANEL Routine 02/15/2018 4:50 Results for this (7) AM CDT procedure are in the results section. CT LIMITED/LOCALIZED ERIN 02/14/2018 10:40 Results for this FOLLOW-UP AM CDT procedure are in the results section. CBC (HEMOGRAM ONLY) Routine 02/14/2018 4:53 Results for this AM CDT procedure are in the results section. BASIC METABOLIC PANEL Routine 02/14/2018 4:53 Results for this (7) AM CDT procedure are in the results section. US ABDOMEN LIMITED ERIN 02/13/2018 12:00 Results for this PM CDT procedure are in the results section. PT/APTT Routine 02/13/2018 4:15 Results for this AM CDT procedure are in the results section. CBC (HEMOGRAM ONLY) Routine 02/13/2018 4:15 Results for this AM CDT procedure are in the results section. BASIC METABOLIC PANEL Routine 02/13/2018 4:15 Results for this (7) AM CDT procedure are in the results section. CBC (HEMOGRAM ONLY) Routine 02/12/2018 4:43 Results for this AM CDT procedure are in the results section. BASIC METABOLIC PANEL Routine 02/12/2018 4:43 Results for this (7) AM CDT procedure are in the results section. VENOUS DOPPLER ARM, Routine 02/11/2018 3:54 Results for this LEFT PM CDT procedure are in the results section. CBC (HEMOGRAM ONLY) Routine 02/11/2018 4:38 Results for this AM CDT procedure are in the results section. BASIC METABOLIC PANEL Routine 02/11/2018 4:38 Results for this (7) AM CDT procedure are in the results section. FERRITIN Routine 02/10/2018 5:36 Results for this AM CDT procedure are in the results section. IRON, TIBC, % SAT. Routine 02/10/2018 5:36 Results for this (WITHOUT FERRITIN) AM CDT procedure are in the results section. CARCINOEMBRYONIC Routine 02/10/2018 5:36 Results for this ANTIGEN (CEA) AM CDT procedure are in the results section. VITAMIN D, 25-HYDROXY Routine 02/10/2018 5:36 Results for this AM CDT procedure are in the results section. PTH, INTACT Routine 02/10/2018 5:36 Results for this AM CDT procedure are in the results section. URIC ACID Routine 02/10/2018 5:36 Results for this AM CDT procedure are in the results section. PROTEIN AP Routine 02/10/2018 5:36 Results for this ELECTROPHORESIS, SERUM AM CDT procedure are in the results section. CBC (HEMOGRAM ONLY) Routine 02/10/2018 5:36 Results for this AM CDT procedure are in the results section. BASIC METABOLIC PANEL Routine 02/10/2018 5:36 Results for this (7) AM CDT procedure are in the results section. CT CHEST WITH IV Routine 02/09/2018 11:18 Results for this CONTRAST PM CDT procedure are in the results section. CT ABDOMEN/PELVIS WITH Routine 02/09/2018 11:18 Results for this IV CONTRAST PM CDT procedure are in the results section. PROTEIN, RANDOM URINE Routine 02/09/2018 5:43 Results for this PM CDT procedure are in the results section. TRANSFUSION SERVICE 02/09/2018 5:41 REPORT - SCAN PM CDT BASIC METABOLIC PANEL Routine 02/09/2018 5:52 Results for this (7) AM CDT procedure are in the results section. CBC (HEMOGRAM ONLY) Routine 02/09/2018 3:07 Results for this AM CDT procedure are in the results section. PREPARE LEUKO-REDUCED Routine 02/08/2018 11:54 Results for this RBC PM CDT procedure are in the results section. TRANSFUSION SERVICE 02/08/2018 5:42 REPORT - SCAN PM CDT POCT-ACT Routine 02/08/2018 3:17 Results for this PM CDT procedure are in the results section. ASSOCIATE AUTOMATION ENGINEER FEMORAL &/OR 02/08/2018 2:40 Acute deep vein POPLITEAL PM CDT thrombosis (DVT) of right lower extremity, unspecified vein (HCC) Case Notes (3) CASE 2443 Periferal angio with possible police captain senior of rt leg. 552mGy PERIPHERAL ANGIOS / 02/08/2018 2:40 PM CDT Acute deep vein thrombosis AORTOGRAM (DVT) of right lower extremity, unspecified vein (HCC) Case Notes (3) CASE 2443 Periferal angio with possible police captain senior of rt leg. 552mGy POCT-ACT Routine 02/08/2018 2:35 Results for this PM CDT procedure are in the results section. CBC (HEMOGRAM ONLY) Routine 02/08/2018 5:50 Results for this AM CDT procedure are in the results section. BASIC METABOLIC Routine 02/08/2018 5:50 Results for this PANEL (7) AM CDT procedure are in the results section. PROTHROMBIN TIME/INR Routine 02/08/2018 5:50 Results for this AM CDT procedure are in the results section. TRANSFUSE Routine 02/08/2018 2:23 LEUKO-REDUCED RED AM CDT BLOOD CELLS PREPARE STAT 02/07/2018 11:54 Results for this LEUKO-REDUCED RBC PM CDT procedure are in the results section. BASIC METABOLIC Routine 02/07/2018 6:12 Results for this PANEL (7) AM CDT procedure are in the results section. CBC (HEMOGRAM ONLY) Routine 02/07/2018 4:56 Results for this AM CDT procedure are in the results section. PROTHROMBIN TIME/INR Routine 02/07/2018 4:56 Results for this AM CDT procedure are in the results section. HEMOGLOBIN AND Routine 02/06/2018 9:21 Results for this HEMATOCRIT PM CDT procedure are in the results section. REPORT OF PROCEDURE 02/06/2018 7:31 - ENDOSCOPY URL PM CDT TISSUE EXAM AP Routine 02/06/2018 6:59 Results for this PM CDT procedure are in the results section. TRANSFUSION SERVICE 02/06/2018 5:50 REPORT - SCAN PM CDT COLONOSCOPY,SUBMUCOS 02/06/2018 5:00 Hematochezia AL INJECTION PM CDT COLONOSCOPY,BIOPSY 02/06/2018 5:00 Hematochezia PM CDT COLONOSCOPY,POLYPECT 02/06/2018 5:00 Hematochezia GOPAL PM CDT ARTERIAL DOPPLER Routine 02/06/2018 10:55 Results for this LEG, RIGHT AM CDT procedure are in the results section. HEMOGLOBIN AND Routine 02/06/2018 9:51 Results for this HEMATOCRIT AM CDT procedure are in the results section. PROTHROMBIN TIME/INR Routine 02/06/2018 9:45 Results for this AM CDT procedure are in the results section. TRANSFUSE STAT 02/06/2018 8:39 LEUKO-REDUCED RED AM CDT BLOOD CELLS TRANSFUSE STAT 02/06/2018 4:26 LEUKO-REDUCED RED AM CDT BLOOD CELLS CBC W/PLT COUNT & Routine 02/05/2018 10:36 Results for this AUTO DIFFERENTIAL PM CDT procedure are in the results section. TYPE AND SCREEN, Routine 02/05/2018 10:36 Results for this AUTOMATED PM CDT procedure are in the results section. APTT Routine 02/05/2018 10:36 Results for this PM CDT procedure are in the results section. PROTHROMBIN TIME/INR Routine 02/05/2018 10:36 Results for this PM CDT procedure are in the results section. HEPATIC FUNCTION Routine 02/05/2018 10:36 Results for this PANEL PM CDT procedure are in the results section. CBC W/PLT COUNT & Routine 02/05/2018 10:36 Results for this AUTO DIFFERENTIAL PM CDT procedure are in the results section. BASIC METABOLIC Routine 02/05/2018 10:36 Results for this PANEL (7) PM CDT procedure are in the results section. CARDIAC CATH REPORT 01/31/2018 8:10 - SCAN AM CDT RHYTHM STRIP - SCAN 01/31/2018 8:10 AM CDT APTT Routine 01/28/2018 4:37 Results for this AM CDT procedure are in the results section. PROTHROMBIN TIME/INR Routine 01/28/2018 4:37 Results for this AM CDT procedure are in the results section. PHOSPHORUS Routine 01/28/2018 4:37 Results for this AM CDT procedure are in the results section. MAGNESIUM Routine 01/28/2018 4:37 Results for this AM CDT procedure are in the results section. BASIC METABOLIC Routine 01/28/2018 4:37 Results for this PANEL (7) AM CDT procedure are in the results section. APTT Routine 01/27/2018 11:18 Results for this PM CDT procedure are in the results section. APTT Routine 01/27/2018 4:24 Results for this PM CDT procedure are in the results section. APTT Routine 01/27/2018 2:18 Results for this PM CDT procedure are in the results section. CBC (HEMOGRAM ONLY) Routine 01/27/2018 2:18 Results for this PM CDT procedure are in the results section. PROTHROMBIN TIME/INR Routine 01/27/2018 6:19 Results for this AM CDT procedure are in the results section. PHOSPHORUS Routine 01/27/2018 6:19 Results for this AM CDT procedure are in the results section. MAGNESIUM Routine 01/27/2018 6:19 Results for this AM CDT procedure are in the results section. BASIC METABOLIC Routine 01/27/2018 6:19 Results for this PANEL (7) AM CDT procedure are in the results section. APTT Routine 01/27/2018 6:19 Results for this AM CDT procedure are in the results section. CBC (HEMOGRAM ONLY) Routine 01/27/2018 6:19 Results for this AM CDT procedure are in the results section. APTT Routine 01/27/2018 12:55 Results for this AM CDT procedure are in the results section. APTT Routine 01/26/2018 5:27 Results for this PM CDT procedure are in the results section. APTT Routine 01/26/2018 8:39 Results for this AM CDT procedure are in the results section. POCT-GLUCOSE METER Routine 01/26/2018 7:14 Results for this AM CDT procedure are in the results section. PROTHROMBIN TIME/INR Routine 01/26/2018 1:24 Results for this AM CDT procedure are in the results section. APTT Routine 01/26/2018 1:24 Results for this AM CDT procedure are in the results section. POCT-GLUCOSE METER Routine 01/25/2018 9:05 Results for this PM CDT procedure are in the results section. POCT-GLUCOSE METER Routine 01/25/2018 5:26 Results for this PM CDT procedure are in the results section. ASSOCIATE AUTOMATION ENGINEER FEMORAL &/OR 01/25/2018 4:04 Peripheral vascular POPLITEAL PM CDT disease, unspecified (HCC) Case Notes 1019 Rt arteriogram possible police captain senior of the rt leg POCT-GLUCOSE METER Routine 01/25/2018 12:02 Results for this PM CDT procedure are in the results section. POCT-GLUCOSE METER Routine 01/25/2018 7:39 Results for this AM CDT procedure are in the results section. APTT Routine 01/25/2018 7:34 Results for this AM CDT procedure are in the results section. PLATELET AGGREGATION: AP Routine 01/25/2018 7:34 Results for this FUNCTION SCREEN AM CDT procedure are in the results section. PROTHROMBIN TIME/INR Routine 01/25/2018 2:13 Results for this AM CDT procedure are in the results section. CBC (HEMOGRAM ONLY) Routine 01/25/2018 2:13 Results for this AM CDT procedure are in the results section. MAGNESIUM Routine 01/25/2018 2:13 Results for this AM CDT procedure are in the results section. BASIC METABOLIC PANEL Routine 01/25/2018 2:13 Results for this (7) AM CDT procedure are in the results section. APTT Routine 01/25/2018 2:13 Results for this AM CDT procedure are in the results section. POCT-GLUCOSE METER Routine 01/24/2018 9:05 Results for this PM CDT procedure are in the results section. APTT Routine 01/24/2018 8:22 Results for this PM CDT procedure are in the results section. TRANSFUSION SERVICE 01/24/2018 6:03 REPORT - SCAN PM CDT APTT STAT 01/24/2018 3:52 Results for this PM CDT procedure are in the results section. APTT Routine 01/24/2018 1:06 Results for this PM CDT procedure are in the results section. POCT-GLUCOSE METER Routine 01/24/2018 11:30 Results for this AM CDT procedure are in the results section. APTT Routine 01/24/2018 8:07 Results for this AM CDT procedure are in the results section. POCT-GLUCOSE METER Routine 01/24/2018 4:09 Results for this AM CDT procedure are in the results section. PLATELET AGGREGATION: AP Routine 01/24/2018 3:43 Results for this FUNCTION SCREEN AM CDT procedure are in the results section. PROTHROMBIN TIME/INR Routine 01/24/2018 3:43 Results for this AM CDT procedure are in the results section. CBC (HEMOGRAM ONLY) Routine 01/24/2018 3:43 Results for this AM CDT procedure are in the results section. MAGNESIUM Routine 01/24/2018 3:43 Results for this AM CDT procedure are in the results section. BASIC METABOLIC PANEL Routine 01/24/2018 3:43 Results for this (7) AM CDT procedure are in the results section. APTT Routine 01/24/2018 3:43 Results for this AM CDT procedure are in the results section. POCT-GLUCOSE METER Routine 01/23/2018 10:58 Results for this PM CDT procedure are in the results section. APTT Routine 01/23/2018 10:50 Results for this PM CDT procedure are in the results section. CALCIUM, IONIZED Routine 01/23/2018 10:00 Results for this PM CDT procedure are in the results section. MAGNESIUM Routine 01/23/2018 10:00 Results for this PM CDT procedure are in the results section. XR CHEST 1 VIEW Routine 01/23/2018 7:52 Results for this PORTABLE/BEDSIDE PM CDT procedure are in the results section. APTT STAT 01/23/2018 6:34 Results for this PM CDT procedure are in the results section. CBC (HEMOGRAM ONLY) STAT 01/23/2018 6:34 Results for this PM CDT procedure are in the results section. BASIC METABOLIC PANEL STAT 01/23/2018 6:34 Results for this (7) PM CDT procedure are in the results section. BLOOD GAS, ARTERIAL STAT 01/23/2018 6:34 Results for this PM CDT procedure are in the results section. GLUCOSE-STAT LAB STAT 01/23/2018 6:34 Results for this PM CDT procedure are in the results section. POTASSIUM-STAT LAB STAT 01/23/2018 6:34 Results for this PM CDT procedure are in the results section. HEPATITIS B SURFACE Routine 01/23/2018 6:34 Results for this ANTIGEN PM CDT procedure are in the results section. HIV-1 ANTIGEN WITH Routine 01/23/2018 6:34 Results for this HIV-1/2 ANTIBODY PM CDT procedure are in the results section. HEMOGLOBIN A1C AP Routine 01/23/2018 6:34 Results for this PM CDT procedure are in the results section. POCT-ACT Routine 01/23/2018 5:31 Results for this PM CDT procedure are in the results section. TISSUE EXAM AP Routine 01/23/2018 5:10 Results for this PM CDT procedure are in the results section. POCT-ACT Routine 01/23/2018 4:57 Results for this PM CDT procedure are in the results section. POCT-ACT Routine 01/23/2018 4:31 Results for this PM CDT procedure are in the results section. POCT-ACT Routine 01/23/2018 4:07 Results for this PM CDT procedure are in the results section. CBC W/PLT COUNT & Routine 01/23/2018 2:01 Results for this AUTO DIFFERENTIAL PM CDT procedure are in the results section. TYPE AND SCREEN, Routine 01/23/2018 2:01 Results for this AUTOMATED PM CDT procedure are in the results section. PLATELET AGGREGATION: AP Routine 01/23/2018 2:01 Results for this FUNCTION SCREEN PM CDT procedure are in the results section. APTT Routine 01/23/2018 2:01 Results for this PM CDT procedure are in the results section. PROTHROMBIN TIME/INR Routine 01/23/2018 2:01 Results for this PM CDT procedure are in the results section. BASIC METABOLIC PANEL Routine 01/23/2018 2:01 Results for this (7) PM CDT procedure are in the results section. CBC W/PLT COUNT & Routine 01/23/2018 2:01 Results for this AUTO DIFFERENTIAL PM CDT procedure are in the results section. ANGIOGRAM-LOWER 01/23/2018 12:30 PAD (peripheral EXTREMITY PM CDT artery disease) (HCC) RHYTHM STRIP - SCAN 11/22/2017 1:00 PM CDT TRANSFUSION SERVICE 11/22/2017 11:00 REPORT - SCAN AM CDT CBC (HEMOGRAM ONLY) Routine 11/21/2017 4:28 Results for this AM CDT procedure are in the results section. BASIC METABOLIC PANEL Routine 11/21/2017 4:28 Results for this (7) AM CDT procedure are in the results section. BASIC METABOLIC PANEL Routine 11/20/2017 3:45 Results for this (7) AM CDT procedure are in the results section. LIPID PANEL Routine 11/20/2017 3:45 Results for this AM CDT procedure are in the results section. CBC W/PLT COUNT & Routine 11/19/2017 4:21 Results for this AUTO DIFFERENTIAL AM CDT procedure are in the results section. CBC W/PLT COUNT & Routine 11/19/2017 4:21 Results for this AUTO DIFFERENTIAL AM CDT procedure are in the results section. MAGNESIUM Routine 11/19/2017 4:21 Results for this AM CDT procedure are in the results section. BASIC METABOLIC PANEL Routine 11/19/2017 4:21 Results for this (7) AM CDT procedure are in the results section. MAGNESIUM Routine 11/18/2017 5:59 Results for this AM CDT procedure are in the results section. BASIC METABOLIC PANEL Routine 11/18/2017 5:59 Results for this (7) AM CDT procedure are in the results section. CBC W/PLT COUNT & STAT 11/17/2017 10:41 Results for this AUTO DIFFERENTIAL AM CDT procedure are in the results section. BASIC METABOLIC PANEL STAT 11/17/2017 10:41 Results for this (7) AM CDT procedure are in the results section. CBC W/PLT COUNT & STAT 11/17/2017 10:41 Results for this AUTO DIFFERENTIAL AM CDT procedure are in the results section. HGB/HCT (H&H) - STAT STAT 11/17/2017 10:27 Results for this LAB AM CDT procedure are in the results section. GLUCOSE-STAT LAB STAT 11/17/2017 10:27 Results for this AM CDT procedure are in the results section. POTASSIUM-STAT LAB STAT 11/17/2017 10:27 Results for this AM CDT procedure are in the results section. SODIUM NA-STAT LAB STAT 11/17/2017 10:27 Results for this AM CDT procedure are in the results section. BLOOD GAS, ARTERIAL STAT 11/17/2017 10:27 Results for this AM CDT procedure are in the results section. TISSUE EXAM AP Routine 11/17/2017 9:37 Results for this AM CDT procedure are in the results section. HGB/HCT (H&H) - STAT Routine 11/17/2017 8:57 Results for this LAB AM CDT procedure are in the results section. GLUCOSE-STAT LAB Routine 11/17/2017 8:57 Results for this AM CDT procedure are in the results section. POTASSIUM-STAT LAB Routine 11/17/2017 8:57 Results for this AM CDT procedure are in the results section. SODIUM NA-STAT LAB Routine 11/17/2017 8:57 Results for this AM CDT procedure are in the results section. BLOOD GAS, ARTERIAL Routine 11/17/2017 8:57 Results for this AM CDT procedure are in the results section. CALCIUM, IONIZED Routine 11/17/2017 8:57 Results for this AM CDT procedure are in the results section. RRL CRITICAL LABS Routine 11/17/2017 8:57 Results for this (ABG,NA,K,H&H,GLUCOSE AM CDT procedure are in ) the results section. BYPASS,FEMORAL-POPLIT 11/17/2017 7:30 Peripheral EAL AM CDT vascular disease (HCC) ECG 12-LEAD Routine 11/17/2017 7:14 AM CDT Procedure Note - Interface, External Ris In - 11/17/2017 7:18 AM CDT Ventricular Rate 53 BPM Atrial Rate 53 BPM P-R Interval 198 ms QRS Duration 86 ms Q-T Interval 450 ms QTC Calculation(Bazett) 422 ms P [place] 49 degrees R [place] 48 degrees T [place] 55 degrees Sinus bradycardia Otherwise normal ECG No previous ECGs available ECG 12-LEAD Routine 11/17/2017 7:14 AM CDT URINALYSIS W/ MICROSCOPIC Routine 11/17/2017 5:39 AM CDT VEIN MAPPING LEGS BILATERAL Routine 11/17/2017 5:15 AM CDT CBC W/PLT COUNT & AUTO Routine 11/16/2017 10:45 PM CDT Results for this DIFFERENTIAL procedure are in the results section. TYPE AND SCREEN, AUTOMATED Routine 11/16/2017 10:45 PM CDT PROTHROMBIN TIME/INR Routine 11/16/2017 10:45 PM CDT MAGNESIUM Routine 11/16/2017 10:45 PM CDT COMPREHENSIVE METABOLIC Routine 11/16/2017 10:45 PM CDT Results for this PANEL procedure are in the results section. CBC W/PLT COUNT & AUTO Routine 11/16/2017 10:45 PM CDT Results for this DIFFERENTIAL procedure are in the results section. APTT Routine 11/16/2017 10:45 PM CDT XR CHEST 1 VIEW ERIN 11/16/2017 10:32 PM CDT Results for this PORTABLE/BEDSIDE procedure are in the results section. after 05/13/2017 Results VASCULAR DIAGRAM -SCAN (02/17/2018 10:50 AM CDT) Narrative Performed At CARDIAC CATH REPORT - SCAN (02/17/2018 10:50 AM CDT) Narrative Performed At RHYTHM STRIP - SCAN (02/17/2018 10:50 AM CDT)Only the most recent of3 resultswithin the time period is included. Narrative Performed At IR Port-a-Cath Placement (02/16/2018 12:54 PM CDT) Narrative Performed At FINAL REPORT [facility] Right internal jugular chest port insertion History: Patient requires access for chemotherapy. Modality: Sonography and fluoroscopy. Sedation: Versed 1.5 mg and fentanyl 75 mcg given intravenously for conscious sedation.Vital signs were monitored throughout the procedure by a nurse, and remained stable. Physician intra-service time was 25 minutes. Blast Furnace Keeper:Peña Zepeda MD Supervisor Sulfuric Acid Plant:Jose Martin. Approach: Right internal jugular vein Estimated blood loss:< 5 cc. Specimen: None. Fluoroscopy Time: 0.4 min. Reference Air Kerma (Ka, r): 3.8 mGy. Technique: Informed written consent was obtained. Discussion of risks, benefits, and alternatives were made with the patient. The patient expressed understanding and agreed to proceed.A universal timeout was performed prior to starting the procedure.All elements maximal sterile barrier technique was utilized for this procedure, including utilization of sterile scrub solution for skin prep, a large sterile sheet to cover the areas of the patient that were not prepped, and hand hygiene, mask, head covering, and sterile gown for performing radiologist and scrub technologist. The skin was anesthetized with 2% lidocaine.Ultrasound evaluation showed a patent and compressible right internal jugular vein, which was punctured under direct real-time ultrasound guidance with a micropuncture needle.An ultrasound image was saved to PACS. A 0.018 inch wire was placed through the needle into the right atrium. A 4 Brazilian micropuncture sheath was placed. A subcutaneous tunnel and pocket were created in the right anterior chest wall by blunt dissection.The pocket was flushed with antibiotic solution. A 6F Bard port was placed within the pocket and the catheter brought through the tunnel. The catheter was cut at 20 cm. A peel-away sheath was placed in the right IJ vein and the catheter was advanced through the sheath, with its distal tip terminating in the cavoatrial junction. The peel-away sheath was removed. The port was flushed and aspirated easily following placement.The skin incision was closed with 3-0 running subcuticular Monocryl and Steri-Strips.The small jugular incision site was closed using Steri-Strips.The patient tolerated the procedure well and left the department in the same condition. Patient received 1 gram of Vancomycin intravenously pre-procedure. Results:Spot radiograph of the chest demonstrates the new right IJ Port-A-Cath to lie in the expected position with its tip overlying the cavoatrial junction. Impression: Successful, uncomplicated placement of a right internal jugular chest port. The port is ready for immediate use. Signed: Peña Zepeda MD Report Verified Date/Time:02/16/2018 18:32:11 Reading Location: [place] [id number] Angio Body Reading Room Procedure Note Interface, External Ris In - 02/16/2018 6:37 PM CDT FINAL REPORT Right internal jugular chest port insertion History: Patient requires access for chemotherapy. Modality: Sonography and fluoroscopy. Sedation: Versed 1.5 mg and fentanyl 75 mcg given intravenously for conscious sedation. Vital signs were monitored throughout the procedure by a nurse, and remained stable. Physician intra-service time was 25 minutes. Blast Furnace Keeper: Peña Zepeda MD Supervisor Sulfuric Acid Plant: Jose Martin. Approach: Right internal jugular vein Estimated blood loss: < 5 cc. Specimen: None. Fluoroscopy Time: 0.4 min. Reference Air Kerma (Ka, r): 3.8 mGy. Technique: Informed written consent was obtained. Discussion of risks, benefits, and alternatives were made with the patient. The patient expressed understanding and agreed to proceed. A universal timeout was performed prior to starting the procedure. All elements maximal sterile barrier technique was utilized for this procedure, including utilization of sterile scrub solution for skin prep, a large sterile sheet to cover the areas of the patient that were not prepped, and hand hygiene, mask, head covering, and sterile gown for performing radiologist and scrub technologist. The skin was anesthetized with 2% lidocaine. Ultrasound evaluation showed a patent and compressible right internal jugular vein, which was punctured under direct real-time ultrasound guidance with a micropuncture needle. An ultrasound image was saved to PACS. A 0.018 inch wire was placed through the needle into the right atrium. A 4 Brazilian micropuncture sheath was placed. A subcutaneous tunnel and pocket were created in the right anterior chest wall by blunt dissection. The pocket was flushed with antibiotic solution. A 6F Bard port was placed within the pocket and the catheter brought through the tunnel. The catheter was cut at 20 cm. A peel-away sheath was placed in the right IJ vein and the catheter was advanced through the sheath, with its distal tip terminating in the cavoatrial junction. The peel-away sheath was removed. The port was flushed and aspirated easily following placement. The skin incision was closed with 3-0 running subcuticular Monocryl and Steri-Strips. The small jugular incision site was closed using Steri-Strips. The patient tolerated the procedure well and left the department in the same condition. Patient received 1 gram of Vancomycin intravenously pre-procedure. Results: Spot radiograph of the chest demonstrates the new right IJ Port-A-Cath to lie in the expected position with its tip overlying the cavoatrial junction. Impression: Successful, uncomplicated placement of a right internal jugular chest port. The port is ready for immediate use. Signed: Peña Zepeda MD Report Verified Date/Time: 02/16/2018 18:32:11 Reading Location: [facility] B1 P048 Angio Body Reading Room Performing Organization Address City/[facility]/[place] Phone Number GE RIS CBC (Hemogram only) (02/16/2018 5:26 AM CDT)Only the most recent of16 resultswithin the time period is included. WBC 6.6 3.5 - 10.5 K/L [facility] RBC 2.98 (L) 4.63 - 6.08 M/L [facility] Hemoglobin 8.9 (L) 13.7 - 17.5 GM/DL [facility] Hematocrit 28.6 (L) 40.1 - 51.0 % [facility] MCV 96.0 (H) 79.0 - 92.2 fL [facility] MCH 29.9 25.7 - 32.2 pg [facility] MCHC 31.1 (L) 32.3 - 36.5 GM/DL [facility] RDW 14.7 (H) 11.6 - 14.4 % [facility] Platelets 206 150 - 450 K/CU MM [facility] MPV 8.9 (L) 9.4 - 12.4 fL [facility] nRBC 0 0 - 0 /100 WBC [facility] Specimen Blood - Arm, Right Performing Organization Address [facility]/Zipcode Phone Number [facility] [address] [place] [address] [place] Basic Metabolic Panel (02/16/2018 5:26 AM CDT)Only the most recent of22 resultswithin the time period is included. Sodium 141 136 - 145 meq/L [facility] Potassium 4.0 3.5 - 5.1 meq/L [facility] Chloride 112 (H) 98 - 107 meq/L [facility] CO2 23 22 - 29 meq/L [facility] BUN 14 7 - 21 mg/dL [facility] Creatinine 1.57 (H) 0.57 - 1.25 mg/dL [facility] Glucose 109 (H) 70 - 105 mg/dL [facility] Calcium 8.3 (L) 8.4 - 10.2 mg/dL [facility] EGFR 45Comment: ESTIMATED GFR IS mL/min/1.73 sq m [facility] NOT ACCURATE CREATININE [facility] CLEARANCE IN PREDICTING GLOMERULAR FILTRATION RATE. ESTIMATED GFR IS NOT APPLICABLE FOR DIALYSIS PATIENTS. Specimen Blood - Arm, Right Performing Organization Address [facility] Cent[facility]ode Phone Number [address] [address] [place] REPORT OF PROCEDURE - ENDOSCOPY URL (02/15/2018 1:01 PM CDT) Narrative Performed At FINE NEEDLE ASPIRATE (FNA) REQUEST (02/15/2018 11:03 AM CDT) Cytology See Separate Report [facility] Specimen Fine Needle Aspirate - Liver Performing Organization Address City/[facility]/Zipcode Phone Number [address] [address] CENTER Fine Needle Aspirate by Clinician (02/15/2018 11:03 AM CDT) Case Report Medical Cytology Report Case: [id number] [facility] Authorizing Provider:Fadi Philippe MDCollected: 02/15/2018 1103 [facility] Ordering Location: [address] Received: 02/16/2018 0959 Service Pathologist: Yas Townsend Specimen:Liver, Liver mass FNA in CRR for cytology DIAGNOSIS LIVER MASS FNA BY CLINICIAN (CYTOSPINS AND CELL BLOCK OF ASPIRATE): [facility] - POSITIVE FOR MALIGNANCY, MORPHOLOGICALLY COMPATIBLE WITH RECTAL CARCINOMA PRIMARY [facility] Signing Pathologist Direct Phone Line: [phone] COMMENT Cytospins show clusters of benign appearing hepatocytes. The cell block show predominantly hepatic parenchyma with a focal attached area of atypical glands with hyperchromatic and pleomorphic nuclei. [facility] The previous case, [id number] is reviewed and shows similar features. [facility] Intradepartmental Consultation: Noy Bailey MD has reviewed the case and agrees with the findings. CPT Code(s) 46160, 83548 [facility] CLINICAL DATA (1.3 x 0.9 cm) round mass in [facility] the left lobe of the liver, [facility] recently diagnosed with rectal cancer(see [id number]) SPECIMEN SOURCE LIVER MASS FNA [facility] GROSS DESCRIPTION 27 mls in cytorich red; 4 cytospins, cell block [facility] Collected: [id number] [facility] Received: [id number] Technical component was [facility] performed at [place], Department of [facility] Pathology, [address] [place] [id number], Professional component [facility] was performed at [place], Department of [facility] Pathology, [address] [place] [address], Specimen Fine Needle Aspirate - Liver Narrative Performed At Performing Organization Address City/State/Zipcode Phone Number [address] [address] CENTER Tissue Exam (02/15/2018 10:55 AM CDT)Only the most recent of4 resultswithin the time period is included. Case Report Surgical Pathology Report Case: [id number] [facility] Authorizing Provider:Fadi Philippe MDCollected: 02/15/2018 1055 [facility] Ordering Location: [address] Received: 02/15/2018 1604 Service Pathologist: Timothy Mendoza MD Specimen:Liver, Liver Mass DIAGNOSIS LIVER MASS, ULTRASOUND-GUIDED CORE NEEDLE BIOPSY: [facility] - FRAGMENTED CORES OF BENIGN LIVER PARENCHYMA [facility] - MINIMAL STEATOSIS (LESS THAN 1%) - MINIMAL PERIPORTAL FIBROSIS - NEGATIVE FOR MALIGNANCY (SEE COMMENT) Signing Pathologist Direct Phone Line: [phone] COMMENT Clinical and radiographic [facility] correlation is recommended [facility] to determine if this represents the lesion. CPT Code(s) 49487, 00469 x 2 [facility] CLINICAL HISTORY Rectal cancer [facility] SPECIMEN SOURCE Liver mass [facility] GROSS DESCRIPTION The specimen is received in [facility] a formalin-filled container [facility] and labeled with the patient's information and labeled "liver mass" and consists of multiple rose-red stringy fragment of hemorrhagic tissue measuring 1 x 0.4 x 0.2 cm in aggregate. Submitted entirely A1. CG/pl MICROSCOPIC DESCRIPTION Sections show multiple fragmented cores of liver parenchyma with at least five portal triad with mild chronic inflammation. No carcinoma was identified. Due to the fragmented nature of the specimen, it [facility] is difficult to appreciate architectural distortion. There is no bile ductular proliferation or reaction seen. Special stain trichrome and reticulin is performed with appropriately reactive controls on [facility] A1 and trichrome highlights minimal periportal fibrosis; reticulin shows preserved normal hepatic trabecular architecture. SPECIAL STUDIES The following special studies were performed on this case and the interpretation is incorporated in the diagnostic report above: [facility] The following special studies were performed on this case and the interpretation is incorporated in the diagnostic report above: trichrome, reticulin. [facility] Specimen Tissue - Liver Performing Organization Address City/State/Zipcode Phone Number [facility] MEDICAL [address] [place] [address] LIMITED/LOCALIZED FOLLOW-UP (02/14/2018 10:40 AM CDT) Narrative Performed At Addendum Begins RIS REPORT STATUS:A This exam was performed according to our departmental dose optimization program which includes automated exposure control, adjustment of the mA and/or kV according to patient size and/or use of iterative reconstructive technique. Signed: Tung Wise MD Report Verified Date/Time:02/27/2018 08:10:53 Reading Location: [facility] Diagnostic Imaging Reading Room - [place] [address] [facility] History: Liver masses COMPARISON: CT dated 02/09/2018 and an ultrasound dated 02/13/2018 DISCUSSION: The hepatic lesions were unable to be previously seen under ultrasound and therefore, the patient was sent to CT for potential biopsy under CT guidance. A program director scouting image was obtained prior to the biopsy procedure. The previously seen nodular foci within the liver are not well delineated on the program director scouting images. Some poorly seen hypodense foci are seen towards the hepatic dome. Attempted visualization was made during real-time CT fluoroscopy. However, due to the patient's breathing as well as the small size and location of the lesions within liver, no focal lesion could be localized reliably for a safe CT guided biopsy. Signed: Tung Wise MD Report Verified Date/Time:02/14/2018 16:38:16 Reading Location: [place] [id number] CT Body Reading Room Procedure Note Interface, External Ris In - 02/27/2018 8:13 AM [facility] Addendum Begins REPORT STATUS:A This exam was performed according to our departmental dose optimization program which includes automated exposure control, adjustment of the mA and/or kV according to patient size and/or use of iterative reconstructive technique. Signed: Tung Wise MD Report Verified Date/Time: 02/27/2018 08:10:53 Reading Location: [facility] Diagnostic Imaging Reading Room - [place] [address] [facility] FIN[facility] History: Liver masses COMPARISON: CT dated 02/09/2018 and an ultrasound dated 02/13/2018 DISCUSSION: The hepatic lesions were unable to be previously seen under ultrasound and therefore, the patient was sent to CT for potential biopsy under CT guidance. A program director scouting image was obtained prior to the biopsy procedure. The previously seen nodular foci within the liver are not well delineated on the program director scouting images. Some poorly seen hypodense foci are seen towards the hepatic dome. Attempted visualization was made during real-time CT fluoroscopy. However, due to the patient's breathing as well as the small size and location of the lesions within liver, no focal lesion could be localized reliably for a safe CT guided biopsy. Signed: Tung Wise MD Report Verified Date/Time: 02/14/2018 16:38:16 Reading Location: [facility] [id number] CT Body Reading Room Performing Organization Address [facility] Phone Number [employer] US abdomen limited (02/13/2018 12:00 PM CDT) Narrative Performed At FINAL REPORT [facility] Ultrasound of abdomen, limited INDICATION: Liver mass COMPARISON: CT dated February 09, 2018 FINDINGS: Sonographic evaluation of the liver is performed in preparation for biopsy of liver lesion seen on recent CT. However, no focal lesion is identified on ultrasound and biopsy was not performed. Signed: Joanne Diaz MD Report Verified Date/Time:02/14/2018 07:47:16 Reading Location: [facility] Radiology Reading Room Procedure Note Interface, External Ris In - 02/14/2018 10:42 AM CDT FINAL REPORT Ultrasound of abdomen, limited INDICATION: Liver mass COMPARISON: CT dated February 09, 2018 FINDINGS: Sonographic evaluation of the liver is performed in preparation for biopsy of liver lesion seen on recent CT. However, no focal lesion is identified on ultrasound and biopsy was not performed. Signed: Joanne Diaz MD Report Verified Date/Time: 02/14/2018 07:47:16 Reading Location: [facility] Radiology Reading Room Performing Organization Address City/State/Zipcode Phone Number GE RIS PT/aPTT (02/13/2018 4:15 AM CDT) Protime 14.5 11.7 - 14.7 seconds [facility] INR 1.1 <=5.9 [facility] PTT 37.1 (H) 22.5 - 36.0 seconds [facility] Specimen Blood Narrative Performed At [facility] RECOMMENDED COUMADIN/WARFARIN INR THERAPY RANGES STANDARD DOSE: 2.0 - 3.0 Includes: PROPHYLAXIS for venous thrombosis, systemic embolization; TREATMENT for venous thrombosis and/or pulmonary embolus. HIGH RISK: Target INR is 2.5-3.5 for patients with mechanical heart valves. Performing Organization Address [facility] [place] [facility] Centercode Phone Number [address] [address] CENTER Venous doppler arm, left (02/11/2018 3:54 PM CDT) Ejection Fraction [facility] ECHO HEART[facility] MKCKESSON CPACS Impressions Performed At Right Impression [facility] E[facility]ART[facility] CPACS NOT ORDRED Left Impression 1. There is total echolucent deep venous obstruction in the brachial vein. 2. There is no deep venous obstruction in the jugular, subclavian, axillary, radial or ulnar veins. 3. There is no superficial venous obstruction in the cephalic or basilic veins. Conclusions Summary Venous duplex imaging and compression of the left upper extremity was performed. The veins were adequately visualized. The left superficial venous system was positive with acute thrombus. The left superficial venous system was patent and compressible with no evidence of thrombus. Signature Velocities are measured in cm/s ; Diameters are measured in cm Narrative Performed At [facility] - Upper Extremities Veins [facility]ART[facility] Demographics Patient Name JASWINDER RANDALL Date of Study 02/11/2018 ESTEFANIA [id number] Age 62 Visit Number [id number] GenderMale Accession Number [id number] Date of 1955 DajaAdrián Inman MDRoom Number [id number] Physician SonographGen McfarlaneJ. Roger Moncada MD, RVT Physician [facility]I Procedure Type of Study: Veins: Upper Extremities Veins, VENOUS DOPPLER ARM, LEFT. Indications for Study:SP MIDLINE PLACEMENT/INFILTRATION and Tenderness. Patient Status:Routine. Study Location:Vascular Lab. Technical Quality:Adequate visualization. - Results were reported to:Dr. Sampson paged- no answer, Results given to ELENA Calix @ [phone]. Risk Factors History of Disease + +----+ + !Diagnosis !Date!Comments ! + +----+ + !History/Risk!!HTN, PVD, H/o CKD, Current Smoker, PAD (Fem-Pop ! !Factors:!!BPG) ! + +----+ + Procedure Note Interface, External Ris In - 02/12/2018 4:10 AM CDT [facility] - Upper Extremities Veins Demographics Patient Name JASWINDER RANDALL Date of Study 02/11/2018 ESTEFANIA Age 62 Visit Number [id number] Gender Male Accession Number [id number] Date of 1955 Referring Adrián Inman MD Room Number 1034 Physician Mediator Alka Bhatti Interpreting Tori Moncada MD, RVT Physician [facility]PVI Procedure Type of Study: Veins: Upper Extremities Veins, VENOUS DOPPLER ARM, LEFT. Indications for Study:SP MIDLINE PLACEMENT/INFILTRATION and Tenderness. Patient Status:Routine. Study Location:Vascular Lab. Technical Quality:Adequate visualization. - Results were reported to:Dr. Sampson pagedru- no answer, Results given to ELENA Calix @ [phone]. Risk Factors History of Disease + +----+ + !Diagnosis !Date!Comments ! + +----+ + !History/Risk ! !HTN, PVD, H/o CKD, Current Smoker, PAD (Fem-Pop ! !Factors: ! !BPG) ! + +----+ + Impressions Right Impression NOT ORDRED Left Impression 1. There is total echolucent deep venous obstruction in the brachial vein. 2. There is no deep venous obstruction in the jugular, subclavian, axillary, radial or ulnar veins. 3. There is no superficial venous obstruction in the cephalic or basilic veins. Conclusions Summary Venous duplex imaging and compression of the left upper extremity was performed. The veins were adequately visualized. The left superficial venous system was positive with acute thrombus. The left superficial venous system was patent and compressible with no evidence of thrombus. Signature Velocities are measured in cm/s ; Diameters are measured in cm Performing Organization Address [facility] [place] [facility] Centercowv Phone Number [facility]ART[facility] CPACS Iron, TIBC, % sat. (without ferritin) (02/10/2018 5:36 AM CDT) Iron 26 (L) 40 - 160 ug/dL [facility] TIBC 274 250 - 450 ug/dL [facility] Iron % Saturation 9 (L) 20 - 55 % [facility] Specimen Blood - Arm, Right Performing Organization Address City/[facility] [place] [facility] Centercode Phone Number [facility] [address] [place] [address] CENTER Vitamin D, 25-Hydroxy (02/10/2018 5:36 AM CDT) Vitamin D 25-Hydroxy 10.7 6.6 - 49.9 ng/mL [facility] Specimen Blood - Arm, Right Narrative Performed At [facility] Effective 02/02/2017: Reference Range Change New: 6.6-49.9 ng/mL Previous: 13.0-47.8 ng/mL Recommended Vitamin D Target Range: 30.0-40.0 ng/mL Performing Organization Address [facility] Phone Number [address] [address] CENTER Uric acid (02/10/2018 5:36 AM CDT) Uric Acid 6.2 2.6 - 7.2 mg/dL [facility] Specimen Blood - Arm, Right Performing Organization Address [facility] Phone Number [address] [address] [place] Protein electrophoresis, serum (02/10/2018 5:36 AM CDT) Albumin Fraction 2.6 (L) 3.5 - 5.5 g/dL [facility] Alpha 1 Fraction 0.2 0.2 - 0.4 g/dL [facility] Alpha 2 Fraction 0.6 0.5 - 0.9 g/dL [facility] Beta Fraction 0.9 0.6 - 1.1 g/dL [facility] Gamma Globulin Fraction 0.7 0.7 - 1.7 g/dL [facility] Interpretation Decreased albumin, [facility] suggestive of protein [facility] CENTER loss. Pattern otherwise consistent with mild acute inflammatory response. No monoclonal bands detected. Pathologist: Lilly Harris MD [facility] (electronic signature) [facility] Protein, Total 5.0 (L) 6.0 - 8.3 gm/dL [facility] Specimen Blood - Arm, Right Performing Organization Address [facility] Cent[facility]owv Phone Number [address] [address] CENTER PTH, intact (02/10/2018 5:36 AM CDT) PTH 78.6 (H) 8.5 - 72.5 pg/mL [facility] Specimen Blood - Arm, Right Performing Organization Address City/State/Zipcode Phone Number [facility] [address] [place] [address] CENTER Ferritin (02/10/2018 5:36 AM CDT) Ferritin 36 5 - 275 ng/mL [facility] Specimen Blood - Arm, Right Performing Organization Address [facility]/Zipcode Phone Number [address] [address] [place] Carcinoembryonic Antigen (CEA) (02/10/2018 5:36 AM CDT) CEA, SERUM 2.6 0.0 - 5.0 ng/mL [facility] Specimen Blood - Arm, Right Performing Organization Address [facility] Phone Number [address] [place] [address] abdomen/pelvis with IV contrast (02/09/2018 11:18 PM CDT) Narrative Performed At FINAL REPORT [facility] CT, CHEST, WITH CONTRAST, CT, ABDOMEN \\T\\ PELVIS, WITH IV CONTRAST INDICATION: eval for mets COMPARISON: None TECHNIQUE: Post contrast chest, abdomen and pelvis CT.Coronal and sagittal reformatted images obtained. DOSE REDUCTION: Dose modulation, iterative reconstruction, and/or weight-based adjustment of the mA/kV was utilized to reduce the radiation dose to as low as reasonably achievable. FINDINGS: Chest: Mild centrilobular emphysema is present in the apices. Pleural thickening and trace calcifications noted over the right inferior pleural surface. There is mild eventration of the right hemidiaphragm. Central airways are widely patent. No mediastinal adenopathy is present. Cardiac size is within normal limits. There is no pericardial effusion. The visible portions of the thyroid gland are unremarkable. Review of osseous structures in the thorax reveal remote traumatic changes in the right ribs. No blastic or lytic lesion is present. Abdomen/Pelvis: Oral contrast has reached the cecum at the time of imaging. Moderate stool burden is present in the colon. Diverticular disease is noted distally. There are no adjacent inflammatory changes. There is asymmetric thickening of the rectal vault, slightly greater along the left lateral and posterior aspect. There is no perirectal inflammation or soft tissue expansion beyond the confines of the rectum. There is no retroperitoneal, mesenteric or portal adenopathy. Iliac chains are unremarkable. There is no ascites. Innumerable low-attenuation lesions are seen within the right liver lobe. Reference lesions in the right lobe near the hepatic dome measure up to 1.5 and 1.9 cm, respectively. No focus of abnormal enhancement is present. There is no biliary ductal dilation. The gallbladder, pancreas, spleen, adrenal glands, and kidneys demonstrate normal postcontrast appearance. There is no obstructing stone in the collecting systems. Aortic and biiliac grafting is present. Stent lumens are patent. Laterally projecting outpouching arising from the common femoral artery distal to the right measures 1.6 x 1.5 cm. There is no abnormal opacification within the adjacent venous structures. Femoral stent material on the right is incompletely viewed, but patent where visualized. Review of osseous structures reveals mild degenerative changes in the axial skeleton. No blastic or lytic osseous lesion is present. IMPRESSION: Asymmetric mural thickening of the rectal vault compatible with provided history of rectal adenocarcinoma. There is no soft tissue extension into the perirectal fat to suggest local invasion. Multiple low-attenuation, nonenhancing lesions in the liver concerning for metastatic foci. No discernible adenopathy. No evidence of intrathoracic metastatic disease. 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 There is no abnormal enhancement of the adjacent venous structures to suggest the presence of fistula. Sonographic surveillance is suggested. Signed: JR Horta Robert MD Report Verified Date/Time:02/10/2018 00:28:46 Reading Location: [facility] B1 C013Y CT Body Reading Room Procedure Note Interface, External Ris In - 02/10/2018 12:30 AM CDT FINAL REPORT CT, CHEST, WITH CONTRAST, CT, ABDOMEN \\T\\ PELVIS, WITH IV CONTRAST INDICATION: eval for mets COMPARISON: None TECHNIQUE: Post contrast chest, abdomen and pelvis CT. Coronal and sagittal reformatted images obtained. DOSE REDUCTION: Dose modulation, iterative reconstruction, and/or weight-based adjustment of the mA/kV was utilized to reduce the radiation dose to as low as reasonably achievable. FINDINGS: Chest: Mild centrilobular emphysema is present in the apices. Pleural thickening and trace calcifications noted over the right inferior pleural surface. There is mild eventration of the right hemidiaphragm. Central airways are widely patent. No mediastinal adenopathy is present. Cardiac size is within normal limits. There is no pericardial effusion. The visible portions of the thyroid gland are unremarkable. Review of osseous structures in the thorax reveal remote traumatic changes in the right ribs. No blastic or lytic lesion is present. Abdomen/Pelvis: Oral contrast has reached the cecum at the time of imaging. Moderate stool burden is present in the colon. Diverticular disease is noted distally. There are no adjacent inflammatory changes. There is asymmetric thickening of the rectal vault, slightly greater along the left lateral and posterior aspect. There is no perirectal inflammation or soft tissue expansion beyond the confines of the rectum. There is no retroperitoneal, mesenteric or portal adenopathy. Iliac chains are unremarkable. There is no ascites. Innumerable low-attenuation lesions are seen within the right liver lobe. Reference lesions in the right lobe near the hepatic dome measure up to 1.5 and 1.9 cm, respectively. No focus of abnormal enhancement is present. There is no biliary ductal dilation. The gallbladder, pancreas, spleen, adrenal glands, and kidneys demonstrate normal postcontrast appearance. There is no obstructing stone in the collecting systems. Aortic and biiliac grafting is present. Stent lumens are patent. Laterally projecting outpouching arising from the common femoral artery distal to the right measures 1.6 x 1.5 cm. There is no abnormal opacification within the adjacent venous structures. Femoral stent material on the right is incompletely viewed, but patent where visualized. Review of osseous structures reveals mild degenerative changes in the axial skeleton. No blastic or lytic osseous lesion is present. IMPRESSION: Asymmetric mural thickening of the rectal vault compatible with provided history of rectal adenocarcinoma. There is no soft tissue extension into the perirectal fat to suggest local invasion. Multiple low-attenuation, nonenhancing lesions in the liver concerning for metastatic foci. No discernible adenopathy. No evidence of intrathoracic metastatic disease. 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 There is no abnormal enhancement of the adjacent venous structures to suggest the presence of fistula. Sonographic surveillance is suggested. Signed: JR Mychal, Tam TELLEZ Report Verified Date/Time: 02/10/2018 00:28:46 Reading Location: [facility] B1 C013Y CT Body Reading Room Performing Organization Address City/State/Zipcode Phone Number [facility] chest with IV contrast (02/09/2018 11:18 PM CDT) Narrative Performed At FINAL REPORT [facility] CT, CHEST, WITH CONTRAST, CT, ABDOMEN \\T\\ PELVIS, WITH IV CONTRAST INDICATION: eval for mets COMPARISON: None TECHNIQUE: Post contrast chest, abdomen and pelvis CT.Coronal and sagittal reformatted images obtained. DOSE REDUCTION: Dose modulation, iterative reconstruction, and/or weight-based adjustment of the mA/kV was utilized to reduce the radiation dose to as low as reasonably achievable. FINDINGS: Chest: Mild centrilobular emphysema is present in the apices. Pleural thickening and trace calcifications noted over the right inferior pleural surface. There is mild eventration of the right hemidiaphragm. Central airways are widely patent. No mediastinal adenopathy is present. Cardiac size is within normal limits. There is no pericardial effusion. The visible portions of the thyroid gland are unremarkable. Review of osseous structures in the thorax reveal remote traumatic changes in the right ribs. No blastic or lytic lesion is present. Abdomen/Pelvis: Oral contrast has reached the cecum at the time of imaging. Moderate stool burden is present in the colon. Diverticular disease is noted distally. There are no adjacent inflammatory changes. There is asymmetric thickening of the rectal vault, slightly greater along the left lateral and posterior aspect. There is no perirectal inflammation or soft tissue expansion beyond the confines of the rectum. There is no retroperitoneal, mesenteric or portal adenopathy. Iliac chains are unremarkable. There is no ascites. Innumerable low-attenuation lesions are seen within the right liver lobe. Reference lesions in the right lobe near the hepatic dome measure up to 1.5 and 1.9 cm, respectively. No focus of abnormal enhancement is present. There is no biliary ductal dilation. The gallbladder, pancreas, spleen, adrenal glands, and kidneys demonstrate normal postcontrast appearance. There is no obstructing stone in the collecting systems. Aortic and biiliac grafting is present. Stent lumens are patent. Laterally projecting outpouching arising from the common femoral artery distal to the right measures 1.6 x 1.5 cm. There is no abnormal opacification within the adjacent venous structures. Femoral stent material on the right is incompletely viewed, but patent where visualized. Review of osseous structures reveals mild degenerative changes in the axial skeleton. No blastic or lytic osseous lesion is present. IMPRESSION: Asymmetric mural thickening of the rectal vault compatible with provided history of rectal adenocarcinoma. There is no soft tissue extension into the perirectal fat to suggest local invasion. Multiple low-attenuation, nonenhancing lesions in the liver concerning for metastatic foci. No discernible adenopathy. No evidence of intrathoracic metastatic disease. 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 There is no abnormal enhancement of the adjacent venous structures to suggest the presence of fistula. Sonographic surveillance is suggested. Signed: JR Horta Robert MD Report Verified Date/Time:02/10/2018 00:28:46 Reading Location: [facility] B1 C013Y CT Body Reading Room Procedure Note Interface, External Ris In - 02/10/2018 12:30 AM CDT FINAL REPORT CT, CHEST, WITH CONTRAST, CT, ABDOMEN \\T\\ PELVIS, WITH IV CONTRAST INDICATION: eval for mets COMPARISON: None TECHNIQUE: Post contrast chest, abdomen and pelvis CT. Coronal and sagittal reformatted images obtained. DOSE REDUCTION: Dose modulation, iterative reconstruction, and/or weight-based adjustment of the mA/kV was utilized to reduce the radiation dose to as low as reasonably achievable. FINDINGS: Chest: Mild centrilobular emphysema is present in the apices. Pleural thickening and trace calcifications noted over the right inferior pleural surface. There is mild eventration of the right hemidiaphragm. Central airways are widely patent. No mediastinal adenopathy is present. Cardiac size is within normal limits. There is no pericardial effusion. The visible portions of the thyroid gland are unremarkable. Review of osseous structures in the thorax reveal remote traumatic changes in the right ribs. No blastic or lytic lesion is present. Abdomen/Pelvis: Oral contrast has reached the cecum at the time of imaging. Moderate stool burden is present in the colon. Diverticular disease is noted distally. There are no adjacent inflammatory changes. There is asymmetric thickening of the rectal vault, slightly greater along the left lateral and posterior aspect. There is no perirectal inflammation or soft tissue expansion beyond the confines of the rectum. There is no retroperitoneal, mesenteric or portal adenopathy. Iliac chains are unremarkable. There is no ascites. Innumerable low-attenuation lesions are seen within the right liver lobe. Reference lesions in the right lobe near the hepatic dome measure up to 1.5 and 1.9 cm, respectively. No focus of abnormal enhancement is present. There is no biliary ductal dilation. The gallbladder, pancreas, spleen, adrenal glands, and kidneys demonstrate normal postcontrast appearance. There is no obstructing stone in the collecting systems. Aortic and biiliac grafting is present. Stent lumens are patent. Laterally projecting outpouching arising from the common femoral artery distal to the right measures 1.6 x 1.5 cm. There is no abnormal opacification within the adjacent venous structures. Femoral stent material on the right is incompletely viewed, but patent where visualized. Review of osseous structures reveals mild degenerative changes in the axial skeleton. No blastic or lytic osseous lesion is present. IMPRESSION: Asymmetric mural thickening of the rectal vault compatible with provided history of rectal adenocarcinoma. There is no soft tissue extension into the perirectal fat to suggest local invasion. Multiple low-attenuation, nonenhancing lesions in the liver concerning for metastatic foci. No discernible adenopathy. No evidence of intrathoracic metastatic disease. 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 There is no abnormal enhancement of the adjacent venous structures to suggest the presence of fistula. Sonographic surveillance is suggested. Signed: JR Horta Robert MD Report Verified Date/Time: 02/10/2018 00:28:46 Reading Location: [facility] C013Y CT Body Reading Room Performing Organization Address City/State/Zipcode Phone Number RIS Protein, random urine (02/09/2018 5:43 PM CDT) Protein, Urine <7 0 - 14 mg/dL [facility] Specimen Urine - Urine, Voided Performing Organization Address City/State/Zipcode Phone Number [address] [address] CENTER TRANSFUSION SERVICE REPORT - SCAN (02/09/2018 5:41 PM CDT)Only the most recent of5 resultswithin the time period is included. Narrative Performed At Prepare Leuko-Red RBC (02/08/2018 11:54 PM CDT)Only the most recent of2 resultswithin the time period is included. CROSSMATCH COMPATIBLE SAFETRACE TX Unit ABO A Pos SAFETRACE TX UNIT NUMBER [id number] SAFETRACE TX Status TRANSFUSED SAFETRACE TX Blood Bank Product RED BLOOD CELLS SAFETRACE TX PRODUCT CODE [id number] SAFETRACE TX Specimen Other Performing Organization Address [facility] Phone Number SAFETRACE TX POC ACTIVATED CLOTTING TIME (02/08/2018 3:17 PM CDT)Only the most recent of6 resultswithin the time period is included. Activated Clotting Time 114Comment: TESTED AT sec [address] [address] Specimen Blood Performing Organization Address [facility] Phone Number [address] [phone] CENTER Prothrombin time/INR (02/08/2018 5:50 AM CDT)Only the most recent of11 resultswithin the time period is included. Protime 14.4 11.7 - 14.7 seconds [facility] INR 1.1 <=5.9 [facility] Specimen Blood Narrative Performed At [facility] RECOMMENDED COUMADIN/WARFARIN INR THERAPY RANGES STANDARD DOSE: 2.0 - 3.0 Includes: PROPHYLAXIS for venous thrombosis, systemic embolization; TREATMENT for venous thrombosis and/or pulmonary embolus. HIGH RISK: Target INR is 2.5-3.5 for patients with mechanical heart valves. Performing Organization Address [facility] Phone Number [address] [address] [phone] CENTER Transfuse Leuko-Red RBC (02/08/2018 2:23 AM CDT)Only the most recent of5 resultswithin the time period is included.Hemoglobin and hematocrit (02/06/2018 9:21 PM CDT)Only the most recent of2 resultswithin the time period is included. Hemoglobin 7.5 (L) 13.7 - 17.5 GM/DL [facility] Hematocrit 23.2 (L) 40.1 - 51.0 % [facility] Specimen Blood - Line, Venous Performing Organization Address City/State/Zipcode Phone Number [facility] [address] [place] [address] CENTER REPORT OF PROCEDURE - ENDOSCOPY URL (02/06/2018 7:31 PM CDT) Narrative Performed At Arterial doppler leg, right (02/06/2018 10:55 AM CDT) Ejection Fraction [facility] CPACS Impressions Performed At Right Impression [facility] CPACS 1. The common femoral and profunda femoral arteries are patent. 2. The Femoral-Popliteal bypass graft is patent with the following velocities: Proximal anastomosis- 151/22 cm/sec, Proximal- 126/14 cm/sec, Mid- 78/12 cm/sec, Distal- 65/14 cm/sec, Distal anastomosis- 139/22 cm/sec. 3. The popliteal artery is patent with biphasic Doppler waveforms. 4. There is no flow visualized in the distal posterior tibial artery. 5. The peroneal and anterior tibial arteries are patent with biphasic Doppler waveforms and collaterals seen. 6. The PT pressure is 115 mmHg with an CRYSTAL of 1.02, which may be falsely elevated secondary to calcification and collaterals. 7. The DP CRYSTAL was not obtained due to no demonstrable flow. 8. The digits have absent flow by PPG waveforms. Left Impression For comparison only: 1. The PT pressure is 142 mmHg with an CRYSTAL of 1.26 and the DP pressure is 119 mmHg with an CRYSTAL of 1.05, within normal range. 2. The digits have absent flow by PPG waveforms. Conclusions Summary Arterial pressures and Doppler analysis were performed on the right lower extremity. Adequate Doppler waveforms were obtained. The common femoral and profunda femoral arteries were patent. The femoral to popliteal bypass graft was patent. The popliteal artery was patent with biphasic Doppler waveforms. There was no flow visualized in the distal posterior tibial artery. The peroneal and anterior tibial arteries were patent with biphasic Doppler waveforms and collaterals seen. On the right, the PT CRYSTAL was 1.02, which may be falsely elevated secondary to calcification and collaterals. The DP CRYSTAL was not obtained due to no demonstrable flow. On the left, the PT and DP CRYSTAL's were within normal range. The digits have absent flow by PPG waveforms bilaterally. Signature Velocities are measured in cm/s ; Diameters are measured in cm LE Duplex Measurements Right Left + + + + + + + + + + !Location ! !PSV !EDV !Waveform! !PSV !EDV !Waveform! + + + + + + + + + + !Mid Common Femoral ! !86.4!16.5 ! ! + + + + + + !Prox PFA ! !112 !15.7! ! + + + + + + !Prox SFA ! !152 !24.6! ! + + + + + + !Prox Popliteal ! !105 !11.8! ! + + + + + + !Dist Popliteal ! !71.5!18.1 ! ! + + + + + + !Prox ASSOCIATE AUTOMATION ENGINEER ! !28.3! ! ! + + + + + + !Mid ASSOCIATE AUTOMATION ENGINEER ! !43.6!8.25 ! ! + + + + + + !Prox ABRAHAM ! !102 !25.1! ! + + + + + + !Mid ABRAHAM ! !81.7!14.9 ! ! + + + + + + !Dist ABRAHAM ! !32.2!7.86 ! ! + + + + + + !Prox Peroneal ! !108 !18.1! ! + + + + + + !Mid Peroneal ! !61.3!15.7 ! ! + + + + + + !Dist Peroneal ! !116 !22! ! + + + + + + Narrative Performed At [facility] - Lower Extremity Arterial Duplex [facility] Demographics Patient Name JASWINDER RANDALL Date of Study 02/06/2018 ESTEFANIA [id number] Age 62 Visit Number [id number] GenderMale Accession Number [id number] Date of 1955 Danii GriderRoom Number [id number] MD Slava SonographJose Gandhi T InterpretingJ. Roger Moncada MD, Physician TAE Procedure Type of Study: Extremities Arteries: Lower Extremities Arterial Duplex, ARTERIAL DOPPLER LEG, RIGHT. Indications for Study:Evaluate for PAD. Patient Status:Routine. Study Location:Vascular Lab. Technical Quality:Adequate visualization. Risk Factors History of Disease + +----+ + !Diagnosis !Date!Comments ! + +----+ + !History/Risk!!HTN, PVD, H/o CKD, Current Smoker, PAD (Fem-Pop ! !Factors:!!BPG) ! + +----+ + Procedure Note Interface, External Ris In - 02/06/2018 12:42 PM CDT [facility] - Lower Extremity Arterial Duplex Demographics Patient Name JASWINDER RANDALL Date of Study 02/06/2018 ESTEFANIA Age 62 Visit Number [id number] Gender Male Accession Number [id number] Date of 1955 Referring Sachin Grider Room Number [id number] Physician MD Jaciel Mediator Neeru Gandhi T Interpreting Tori Moncada MD, Physician TAE Procedure Type of Study: Extremities Arteries: Lower Extremities Arterial Duplex, ARTERIAL DOPPLER LEG, RIGHT. Indications for Study:Evaluate for PAD. Patient Status:Routine. Study Location:Vascular Lab. Technical Quality:Adequate visualization. Risk Factors History of Disease + +----+ + !Diagnosis !Date!Comments ! + +----+ + !History/Risk ! !HTN, PVD, H/o CKD, Current Smoker, PAD (Fem-Pop ! !Factors: ! !BPG) ! + +----+ + Impressions Right Impression 1. The common femoral and profunda femoral arteries are patent. 2. The Femoral-Popliteal bypass graft is patent with the following velocities: Proximal anastomosis- 151/22 cm/sec, Proximal- 126/14 cm/sec, Mid- 78/12 cm/sec, Distal- 65/14 cm/sec, Distal anastomosis- 139/22 cm/sec. 3. The popliteal artery is patent with biphasic Doppler waveforms. 4. There is no flow visualized in the distal posterior tibial artery. 5. The peroneal and anterior tibial arteries are patent with biphasic Doppler waveforms and collaterals seen. 6. The PT pressure is 115 mmHg with an CRYSTAL of 1.02, which may be falsely elevated secondary to calcification and collaterals. 7. The DP CRYSTAL was not obtained due to no demonstrable flow. 8. The digits have absent flow by PPG waveforms. Left Impression For comparison only: 1. The PT pressure is 142 mmHg with an CRYSTAL of 1.26 and the DP pressure is 119 mmHg with an CRYSTAL of 1.05, within normal range. 2. The digits have absent flow by PPG waveforms. Conclusions Summary Arterial pressures and Doppler analysis were performed on the right lower extremity. Adequate Doppler waveforms were obtained. The common femoral and profunda femoral arteries were patent. The femoral to popliteal bypass graft was patent. The popliteal artery was patent with biphasic Doppler waveforms. There was no flow visualized in the distal posterior tibial artery. The peroneal and anterior tibial arteries were patent with biphasic Doppler waveforms and collaterals seen. On the right, the PT CRYSTAL was 1.02, which may be falsely elevated secondary to calcification and collaterals. The DP CRYSTAL was not obtained due to no demonstrable flow. On the left, the PT and DP CRYSTAL's were within normal range. The digits have absent flow by PPG waveforms bilaterally. Signature Velocities are measured in cm/s ; Diameters are measured in cm LE Duplex Measurements Right Left + + + ------+ + + + +-------- + + !Location ! !PSV !EDV !Waveform ! !PSV !EDV !Waveform ! + + + ------+ + + + +-------- + + !Mid Common Femoral ! !86.4 !16.5 ! ! + + + ------+ + + !Prox PFA ! !112 !15.7 ! ! + + + ------+ + + !Prox SFA ! !152 !24.6 ! ! + + + ------+ + + !Prox Popliteal ! !105 !11.8 ! ! + + + ------+ + + !Dist Popliteal ! !71.5 !18.1 ! ! + + + ------+ + + !Prox ASSOCIATE AUTOMATION ENGINEER ! !28.3 ! ! ! + + + ------+ + + !Mid ASSOCIATE AUTOMATION ENGINEER ! !43.6 !8.25 ! ! + + + ------+ + + !Prox ABRAHAM ! !102 !25.1 ! ! + + + ------+ + + !Mid ABRAHAM ! !81.7 !14.9 ! ! + + + ------+ + + !Dist ABRAHAM ! !32.2 !7.86 ! ! + + + ------+ + + !Prox Peroneal ! !108 !18.1 ! ! + + + ------+ + + !Mid Peroneal ! !61.3 !15.7 ! ! + + + ------+ + + !Dist Peroneal ! !116 !22 ! ! + + + ------+ + + Performing Organization Address City/[facility] Phone Number [facility] Type and screen, automated (02/05/2018 10:36 PM CDT)Only the most recent of3 resultswithin the time period is included. ABO/RH AUTOMATED (ABDIRIZAK) A POSITIVE [facility] Ab Scrn NEGATIVE [facility] Specimen Blood Performing Organization Address City/[facility] Centercode Phone Number [facility] [address] [place] [address] CBC with platelet count + automated diff (02/05/2018 10:36 PM CDT)Only the most recent of5 resultswithin the time period is included. WBC 10.5 3.5 - 10.5 K/L [facility] RBC 2.01 (L) 4.63 - 6.08 M/L [facility] Hemoglobin 6.1 (L) 13.7 - 17.5 GM/DL [facility] Hematocrit 19.3 (L) 40.1 - 51.0 % [facility] MCV 96.0 (H) 79.0 - 92.2 fL [facility] MCH 30.3 25.7 - 32.2 pg [facility] MCHC 31.6 (L) 32.3 - 36.5 GM/DL [facility] RDW 15.0 (H) 11.6 - 14.4 % [facility] Platelets 377 150 - 450 K/CU MM [facility] MPV 8.7 (L) 9.4 - 12.4 fL [facility] nRBC 0 0 - 0 /100 WBC [facility] % Neutros 68 % [facility] % Lymphs 24 % [facility] % Monos 6 % [facility] % Eos 2 % [facility] % Baso 0 % [facility] # Neutros 7.11 (H) 1.78 - 5.38 K/L [facility] # Lymphs 2.46 1.32 - 3.57 K/L [facility] # Monos 0.65 0.30 - 0.82 K/L [facility] # Eos 0.17 0.04 - 0.54 K/L [facility] # Baso 0.04 0.01 - 0.08 K/L [facility] Immature Granulocytes-Relative 1 0 - 1 % [facility] Specimen Blood Performing Organization Address City/[facility]/Zipcode Phone Number [address] [address] CENTER aPTT (02/05/2018 10:36 PM CDT)Only the most recent of21 resultswithin the time period is included. PTT 44.4 (H) 22.5 - 36.0 seconds [facility] Specimen Blood Performing Organization Address City/[facility]/Zipcode Phone Number [address] [address] [phone] [place] Hepatic function panel (02/05/2018 10:36 PM CDT) Protein, Total 5.1 (L) 6.0 - 8.3 gm/dL [facility] Albumin 3.0 (L) 3.5 - 5.0 g/dL [facility] Total Bilirubin 0.3 0.2 - 1.2 mg/dL [facility] Bilirubin, Direct 0.1 0.1 - 0.5 mg/dL [facility] Alkaline Phosphatase 67 40 - 150 U/L [facility] AST 16 5 - 34 U/L [facility] ALT 17 6 - 55 U/L [facility] Specimen Blood Performing Organization Address [facility] Centercowv Phone Number [address] [address] [phone] [place] CARDIAC CATH REPORT - SCAN (01/31/2018 8:10 AM CDT) Narrative Performed At Phosphorus (01/28/2018 4:37 AM CDT)Only the most recent of2 resultswithin the time period is included. Phosphorus 2.7 2.3 - 4.7 mg/dL [facility] Specimen Blood - Arm, Left Performing Organization Address [facility]/[place] Phone Number [address] [address] [phone] CENTER Magnesium (01/28/2018 4:37 AM CDT)Only the most recent of8 resultswithin the time period is included. Magnesium 1.8 1.6 - 2.6 mg/dL [facility] Specimen Blood - Arm, Left Performing Organization Address [facility]v Phone Number [address] [address] [phone] CENTER POC-Glucose meter (01/26/2018 7:14 AM CDT)Only the most recent of9 resultswithin the time period is included. POC-Glucose Meter 129 (H)Comment: TESTED AT 70 - 110 mg/dL [facility] [address] [facility] [address] Specimen Blood Performing Organization Address City/[facility] [place] [address] [phone] [place] Platelet Aggregation: Function Screen (01/25/2018 7:34 AM CDT)Only the most recent of3 resultswithin the time period is included. Weak ADP 48 (L) 60 - 91 % [facility] Plt. Function Screen 40-49% indicates [facility] Interpretation moderate platelet [facility] dysfunction Pathologist: Buzz Urbano M.D. [facility] (electonic signature) [facility] Platelets 187 150 - 450 K/CU [facility] MM [facility] Specimen Blood - Arm, Right Performing Organization Address [facility] Centercode Phone Number [address] [address] [place] Calcium, Ionized (01/23/2018 10:00 PM CDT)Only the most recent of2 resultswithin the time period is included. Calcium, Ion 1.04 (L) 1.12 - 1.27 mmol/L [facility] pH, Blood 7.41 [facility] Specimen Blood Performing Organization Address [facility] Centercode Phone Number [address] [address] [place] XR chest 1 view portable / bedside (01/23/2018 7:52 PM CDT)Only the most recent of2 resultswithin the time period is included. Narrative Performed At FINAL REPORT [facility] TECHNIQUE: Frontal view of the chest. INDICATION: [...] right pleural effusion versus pleural scarring. Signed: Keshia Christianson MD Report Verified Date/Time:01/24/2018 00:09:20 Reading Location: [address] Consult Reading Room Procedure Note Interface, [...] right pleural effusion versus pleural scarring. Signed: Keshia Christianson MD Report Verified Date/Time: 01/24/2018 00:09:20 Reading Location: [facility] C013 Consult Reading Room Performing Organization Address City/[facility]/Zipcode Phone Number [facility] Potassium-Stat Lab (01/23/2018 6:34 PM CDT)Only the most recent of3 resultswithin the time period is included. Potassium 4.5 3.6 - 5.5 meq/L [facility] Specimen Blood, Arterial Performing Organization Address City/[facility]/Zipcode Phone Number [address] [address] CENTER Glucose-Stat Lab (01/23/2018 6:34 PM CDT)Only the most recent of3 resultswithin the time period is included. Glucose 149 (H) 70 - 110 mg/dL [facility] Specimen Blood, Arterial Performing Organization Address [facility] Centercode Phone Number [address] [address] [place] HIV-1 Antigen with HIV-1/2 Antibody (01/23/2018 6:34 PM CDT) HIV-1 Antigen with HIV 1&2 NON-REACTIVE Nonreactive [facility] Specimen Blood Performing Organization Address City/[facility] Centercode Phone Number [address] [address] [place] Hepatitis B surface antigen (01/23/2018 6:34 PM CDT) hepatitis B Surface Ag NON-REACTIVE Nonreactive [facility] Specimen Blood Performing Organization Address [facility]ercowv Phone Number [address] [address] [place] Hemoglobin A1c (01/23/2018 6:34 PM CDT) Hemoglobin A1C 5.5 4.3 - 6.1 % [facility] Specimen Blood Performing Organization Address [facility] Phone Number [address] [address] [phone] [place] Blood gas, arterial (01/23/2018 6:34 PM CDT)Only the most recent of3 resultswithin the time period is included. pH, Arterial 7.34 (L) 7.35 - 7.45 [facility] pCO2, Arterial 38 35 - 45 mmHg [facility] pO2, Arterial 92 (H) 80 - 90 mmHg [facility] O2 Sat, Arterial 97.4 (H) 96.0 - 97.0 % [facility] HCO3, Arterial 21 21 - 29 mmol/L [facility] Base Excess, Arterial -5.3 (L) -2.0 - 3.0 mmol/L [facility] Patient Temperature 34.7 C [facility] FIO2 28.0 % [facility] Specimen Blood, Arterial Performing Organization Address City/[facility]erc[facility] Phone Number [address] [address] [place] Lipid panel (11/20/2017 3:45 AM CDT) Triglycerides 119 mg/dL [facility] Cholesterol 123 mg/dL [facility] HDL 26 mg/dL [facility] LDL Calculated 73 mg/dL [facility] Specimen Blood Narrative Performed At [facility] Triglyceride Reference Range: Low Risk <150 [id number] High Risk 200-499 Very High Risk>=500 Cholesterol Reference Range: Low Risk <200 [id number] High Risk>240 HDL Cholesterol Reference Range: Low Risk >=60 High Risk <40 LDL Cholesterol Reference Range: Optimal<100 Near [id number] Odkniacmiz515-330 Gaqh301-155 Very High >=190 Performing Organization Address [facility]erc[facility] Phone Number [address] [address] [place] Sodium Na-Stat Lab (11/17/2017 10:27 AM CDT)Only the most recent of2 resultswithin the time period is included. Sodium 137 135 - 148 meq/L [facility] Specimen Blood, Arterial Narrative Performed At Only if arterial line in place and/or patient [facility] on ventilator Performing Organization Address City/[facility]/Zipcode Phone Number [address] [address] [phone] [place] HGB/HCT (H&H)-Stat Lab (11/17/2017 10:27 AM CDT)Only the most recent of2 resultswithin the time period is included. Hemoglobin 14.2 13.0 - 16.8 g/dL [facility] Hematocrit 42.0 40.0 - 50.0 % [facility] Specimen Blood, Arterial Narrative Performed At Only if arterial line in place and/or patient [facility] on ventilator Performing Organization Address City/[facility]/Zipcode Phone Number [facility] [address] [place] [address] CENTER Electrocardiogram, 12-lead (11/17/2017 7:14 AM CDT) Narrative Performed At Ventricular Rate 53 BPM GE MUSE Atrial Rate 53 BPM P-R Interval 198 ms QRS Duration 86 ms Q-T Interval 450 ms QTC Calculation(Bazett) 422 ms P [place] 49 degrees R [place] 48 degrees T [place] 55 degrees Sinus bradycardia Otherwise normal ECG No previous ECGs available Confirmed by MD PERDOMO JORGE ([id number]) on 11/17/2017 12:42:28 PM Procedure Note Interface, External Ris In - 11/17/2017 12:42 PM CDT Ventricular Rate 53 BPM Atrial Rate 53 BPM P-R Interval 198 ms QRS Duration 86 ms Q-T Interval 450 ms QTC Calculation(Bazett) 422 ms P [place] 49 degrees R [place] 48 degrees T [place] 55 degrees Sinus bradycardia Otherwise normal ECG No previous ECGs available Confirmed by MD PERDOMO JORGE ([id number]) on 11/17/2017 12:42:28 PM Performing Organization Address [facility]erc[facility] Phone Number [facility] Urinalysis w/ Microscopic (11/17/2017 5:39 AM CDT) Color, UA Light Yellow [facility] Clarity, UA Clear [facility] Specific [place], UA 1.009 1.001 - 1.035 [facility] pH, UA 6.0 5.0 - 8.0 [facility] Protein, UA Negative Negative [facility] Glucose, UA Negative Negative [facility] Ketones, UA Negative Negative [facility] Bilirubin, UA Negative Negative [facility] Blood, UA Negative Negative [facility] Nitrite, UA Negative Negative [facility] Leukocytes, UA Negative Negative [facility] Urobilinogen, UA 0.2 0.2 - 1.0 mg/dL [facility] RBC, UA 1 /HPF [facility] WBC, UA <1 /HPF [facility] Specimen Source Urine, Voided [facility] Specimen Urine - Urine, Voided Performing Organization Address City/State/Zipcode Phone Number [facility] [address] [place] [address] [phone] CENTER Vein Mapping Legs Bilateral (11/17/2017 5:15 AM CDT) [facility] Fraction [facility] CPACS Impressions Performed At Right Impression [facility] CPACS 1. There is no deep venous venous [...] + + + + + !Location ! !Diameter !Depth ! !Diameter !Depth ! + + + + + + + + !GSV High Thigh ! !0.38 ! ! !0.66 ! ! + + + + + + + + !GSV Mid Thigh ! !0.36 ! ! !0.37 ! ! + + + + + + + + !GSV Low Thigh ! !0.46 ! ! !0.44 ! ! + + + + + + + + !GSV High Calf ! !0.3 ! ! !0.26 ! ! + + + + + + + + !GSV Mid Calf ! !0.21 ! ! !0.33 ! ! + + + + + + + + !GSV Low Calf ! !0.21 ! ! !0.31 ! ! + + + + + + + + Superficial - Lesser Saphenous Vein Right Left + + + + + + + + !Location ! !Diameter !Depth ! !Diameter !Depth ! + + + + + + + + !SSV High Calf ! !0.58 ! ! !0.67 ! ! + + + + + + + + !SSV Mid Calf ! !0.33 ! ! + + +-- + + !SSV Low Calf ! !0.32 ! ! + + +-- + + Narrative Performed At PV LAB - Lower Extremities Vein Mapping [facility] Demographics Patient Name JASWINDER RANDALL Date of Study11/17/2017 [id number] Age62 Visit Number [id number] Gender Male Accession Number [id number] Date of Birth1955 [facility] Room [id number] Physician MgographMicaela Moncada MD, [facility] PhysicianRPVI Procedure Type of Study: Veins: Lower Extremity Vein Mapping, VEIN MAPPING, LOWER EXTREMITY, BILATERAL. Indications for Study:Hx of DVT and Pre-op evaluation. Patient Status:Routine. Study Location:Portable. Technical Quality:Technically Difficult. Risk Factors History of Disease + +----+ + !Diagnosis !Date!Comments ! + +----+ + !History/Risk!!HTN, PVD, H/o CKD, Current Smoker, Alcohol abuse, H/o ! !Factors:!!DVT while on Coumadin, Multiple prior RLE ! !!!Angioplasti es, Per OSH, Right SFA Occlusion ! + +----+ + Procedure Note Interface, External Ris In - 11/17/2017 9:36 AM CDT [facility] - Lower Extremities Vein Mapping Demographics Patient Name JASWINDER RANDALL Date of Study 11/17/2017 Age 62 Visit Number [id number] Gender Male Accession Number [id number] Date of 1955 Referring Margaret Gallegos Room Number 2C24 Physician Mediator Rey Moncada MD, [facility] Physician VI Procedure Type of Study: Veins: Lower Extremity [...] ! ! + + + ------+ + Performing Organization Address City/State/Zipcode Phone Number [facility] Comprehensive metabolic panel (11/16/2017 10:45 PM CDT) Protein, Total 6.2 6.0 - 8.3 gm/dL [facility] Albumin 3.6 3.5 - 5.0 g/dL [facility] Alkaline Phosphatase 83 40 - 150 U/L [facility] Total Bilirubin 0.4 0.2 - 1.2 mg/dL [facility] Sodium 137 136 - 145 meq/L [facility] Potassium 4.4 3.5 - 5.1 meq/L [facility] Chloride 108 (H) 98 - 107 meq/L [facility] CO2 22 22 - 29 meq/L [facility] BUN 14 7 - 21 mg/dL [facility] Creatinine 1.61 (H) 0.57 - 1.25 mg/dL [facility] Glucose 89 70 - 105 mg/dL [facility] Calcium 8.9 8.4 - 10.2 mg/dL [facility] AST 18 5 - 34 U/L [facility] ALT 15 6 - 55 U/L [facility] EGFR 44Comment: ESTIMATED GFR mL/min/1.73 sq m [facility] IS NOT ACCURATE [facility] CREATININE CLEARANCE IN PREDICTING GLOMERULAR FILTRATION RATE. ESTIMATED GFR IS NOT APPLICABLE FOR DIALYSIS PATIENTS. Specimen Blood Performing Organization Address City/State/Zipcode Phone Number [facility] [address] [place] [address] [phone] CENTER after 05/13/2017 Insurance Payer Benefit Plan / Group Subscriber ID Type Phone Address MEDICARE MEDICARE PART A xxxxxxxxxxx Medicare Advance Directives For more information, please contact:[address] [phone] Code Status Date Activated Date Inactivated Comments Full Code 02/05/2018 9:55 PM 02/16/2018 4:31 PM This code status was determined by: Patient Full Code 01/23/2018 9:46 PM 01/28/2018 6:44 PM This code status was determined by: Patient Full Code 01/23/2018 2:45 PM 01/23/2018 9:46 PM This code status was determined by: Patient Full Code 01/23/2018 1:18 PM 01/23/2018 2:45 PM This code status was determined by: Patient Full Code 11/16/2017 10:13 PM 11/21/2017 5:15 PM This code status was determined by: Patient Name Relationship Healthcare Agent Relationship Phone Armando Stewart Friend Primary healthcare agent [phone] Manuel Stewart Relative First alternate healthcare agent [phone] KrisCalvin levy Friend Second alternate healthcare agent [phone]
--- OUTSIDE RECORDS SUMMARY | 2018-05-14 12:56 | XMS REPORT ---
:1955 [facility] [address] [place] [address] Care Team Providers Name Role Phone RAULITO RACHELLE Arcelia Unavailable Unavailable THELMA RUIZ Unavailable Unavailable HUMZA OCONNOR Unavailable Unavailable Problems This patient has no known problems. Allergies, Adverse Reactions, Alerts This patient has no known allergies or adverse reactions. Medications This patient has no known medications. Results Test Description Test Time Test Comments Text Results Atomic Results Result Comments TISSUE EXAM 2018-03-29 Surgical Pathology Report 14:40:00 Case: [id number] Authorizing Provider: Fadi Philippe MD Collected: 02/06/2018 1859 Ordering Location: [address] Received: 02/07/2018 0752 Service Pathologist: Yuridia Mercer MD Specimens: A) - Polyp, Colon - Right/Ascending, taken via hot snare B) - Mass, Bx of Rectal mass via forcep The addendum is issued to report the results of molecular tests performed at [address]. 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 Please see the attached scanned documents for more information. Addendum electronically signed by Noy Bailey MD on 03/29/2018 at 2:40 PMAddendum for results of MSI testing: The addendum is being issued to report the results of immunohistochemistry (IHC) testing for Mismatch Repair (MMR) Proteins, which has been performed on the colon cancer at the request of the oncologist.The diagnosis remains unchanged. IHC testing for all four MMR proteins was performed on tumor in selected block B1 with appropriate internal/CG controls. RESULTSMLH1: Intact nuclear expressionMSH2: Intact nuclear expressionMSH6: Intact nuclear expressionPMS2: Intact nuclear expression IHC InterpretationNo loss of nuclear expression of MMR proteins: low probability of microsatellite instability-high (MSI-H)# #There are exceptions to the above IHC interpretations. These results should not be considered in isolation, and clinical correlation with genetic counseling is recommended to assess the need for germline testing. Immunohistochemistry disclaimer:The immunohistochemistry test was developed and its performance characteristics determined by [facility], Pathology Laboratory. It has not been cleared or approved by the U.S. Food and Drug Administration. The FDA has determined that such clearance or approval is not necessary. The test is used for clinical purposes. It should not be regarded as investigational or for research. This laboratory is certified under the Clinical Laboratory Improvement Amendments of 1988 (CLIA-88) as qualified to perform high complexity clinical laboratory testing. Added CPT codes: 56815, 00444 x3 This email and attachments contain information that may be confidential or privileged. If you are not the intended recipient, notify the sender at once and delete this message completely from your information system. Further use, disclosure, or copying of information contained in this email is not authorized, and any such action should not be construed as a waiver of privilege or other confidentiality protections.Addendum electronically signed by Yuridia Mercer MD on 03/09/2018 at 1:01 PMA. RIGHT/ASCENDING COLON, BIOPSY: - TUBULAR ADENOMA - LYMPHOID AGGREGATES/FOLLICLES - NEGATIVE FOR HIGH GRADE DYSPLASIAB. RECTUM, BIOPSY OF MASS: - INVASIVE MODERATELY DIFFERENTIATED ADENOCARCINOMA, COLONIC TYPE, ULCERATEDCC/pl Signing Pathologist Direct Phone Line: [phone] signed by Yuridia Mercer MD on 02/08/2018 at 10:08 [id number]. Right ascending colon polyp; B. Rectal mass biopsyThe specimen is received in two containers of formalin both labeled with the patient's information. Part A labeled "right ascending colon polyp" consists of a rose polyp measuring 1 cm in greatest dimension with smaller fragment of tissue measuring 0.4 cm. Polyp is inked blue with the resection margin bisected and submitted with the remaining tissue in A1. Part B labeled "rectal mass biopsy" consists of multiple fragments of rose-white soft tissue ranging from 0.1 to 0.2 cm, submitted B1. CG/pl A. The biopsy from the right/ascending colon shows a tubular adenoma, situated in many of the samples, toward the central aspects. The lesion has features typical of a tubular adenoma. High grade dysplasia or other significant features are not noted. There are also some lymphoid aggregates/follicles in the submuscularis mucosal region. B. The biopsy of the rectal mass show an invasive moderately differentiated adenocarcinoma, with typical features of adenocarcinoma of the colon. The lesion is focally ulcerated and is focally present within muscular fibers consistent with muscularis mucosal type. Some residual features of a tubular adenoma are noted. Some reactive changes are also present. CT, 2018-02-27 Request liver Addendum BeginsREPORT STATUS:A LIMITED/LOCALIZED 08:10:00 biopsy Reason This exam FOLLOW-UP for exam:->liver was performed according to our mass, need departmental dose optimization biopsy Should program which includes automated this be exposure control, adjustment of performed at the the mA and/or kV according to bedside?->No patient size and/or use of iterative reconstructive technique. Signed: Tung Wise Verified Date/Time: 02/27/2018 08:10:53 Reading Location: [facility] Diagnostic Imaging Reading Room - [place] [address] [id number] EndsFINAL REPORT History: Liver masses COMPARISON: CT dated 02/09/2018 and an ultrasound dated 02/13/2018 DISCUSSION: The hepatic lesions were unable to be previously seen under ultrasound and therefore, the patient was sent to CT for potential biopsy under CT guidance. A balance wheel motion inspector image was obtained prior to the biopsy procedure. The previously seen nodular foci within the liver are not well delineated on the balance wheel motion inspector images. Some poorly seen hypodense foci are seen towards the hepatic dome. Attempted visualization was made during real-time CT fluoroscopy. However, due to the patient's breathing as well as the small size and location of the lesions within liver, no focal lesion could be localized reliably for a safe CT guided biopsy. Signed: Tung Wise Verified Date/Time: 02/14/2018 16:38:16 Reading Location: [facility] C013Y CT Body Reading Room NEEDLE 2018-02-17 Medical Cytology Report ASPIRATION BY 14:34:00 Case: [id number] CLINICIAN Authorizing Provider: Fadi Philippe MD Collected: 02/15/2018 1103 Ordering Location: [address] Received: 02/16/2018 0959 Service Pathologist: Yas Townsend Specimen: Liver, Liver mass FNA in CRR for cytology LIVER MASS FNA BY CLINICIAN (CYTOSPINS AND CELL BLOCK OF ASPIRATE): - POSITIVE FOR MALIGNANCY, MORPHOLOGICALLY COMPATIBLE WITH RECTAL CARCINOMA PRIMARY Signing Pathologist Direct Phone Line: [phone] signed by Yas Townsend on 02/17/2018 at 2:34 PMCytospins show clusters of benign appearing hepatocytes. The cell block show predominantly hepatic parenchyma with a focal attached area of atypical glands with hyperchromatic and pleomorphic nuclei. The previous case, [id number] is reviewed and shows similar features.Intradepartmental Consultation: Noy Bailey MD has reviewed the case and agrees with the findings.19581, 29383(1.3 x 0.9 cm) round mass in the left lobe of the liver, recently diagnosed with rectal cancer(see [id number])LIVER MASS FNA27 mls in cytorich red; 4 cytospins, cell blockCollected: [id number]: [id number] [facility], Department of Pathology, [address] [place] [address], [facility], [address] [place] [address], ANG, TUNNEL CATH 2018-02-16 Reason for FINAL REPORT PATIENT ID: CENTRAL INS 18:32:00 exam:->chemother [id number] Right internal jugular W/PORT C apy chest port insertion History: Patient requires access for chemotherapy. Modality: Sonography and fluoroscopy. Sedation: Versed 1.5 mg and fentanyl 75 mcg given intravenously for conscious sedation. Vital signs were monitored throughout the procedure by a nurse, and remained stable. Physician intra-service time was 25 minutes. Software Educator: Peña Zepeda MD Rn Acute: Jose Martin. Approach: Right internal jugular vein Estimated blood loss: < 5 cc. Specimen: None. Fluoroscopy Time: 0.4 min.Reference Air Kerma (Ka, r): 3.8 mGy. Technique: [...] needle into the right atrium. A 4 Beninese micropuncture sheath was placed. A subcutaneous tunnel [...] ready for immediate use. Signed: Peña Zepeda MDReport Verified Date/Time: 02/16/2018 18:32:11 Reading Location: [facility] P048 Angio Body Reading Room UE EXAM 2018-02-16 Surgical Pathology Report 15:01:00 Case: [id number] Authorizing Provider: Fadi Philippe MD Collected: 02/15/2018 1055 Ordering Location: [address] Received: 02/15/2018 1606 Service Pathologist: Timothy Mendoza MD Specimen: Liver, Liver Mass LIVER MASS, ULTRASOUND-GUIDED CORE NEEDLE BIOPSY: - FRAGMENTED CORES OF BENIGN LIVER PARENCHYMA - MINIMAL STEATOSIS (LESS THAN 1%) - MINIMAL PERIPORTAL FIBROSIS - NEGATIVE FOR MALIGNANCY (SEE COMMENT) Signing Pathologist Direct Phone Line: [phone] signed by Timothy Mendoza MD on 02/16/2018 at 3:01 PMClinical and radiographic correlation is recommended to determine if this represents the lesion.88284, 68488 x 2Rectal cancerLiver massThe specimen is received in a formalin-filled container and labeled with the patient's information and labeled "liver mass" and consists of multiple rose-red stringy fragment of hemorrhagic tissue measuring 1 x 0.4 x 0.2 cm in aggregate. Submitted entirely A1. CG/pl Sections show multiple fragmented cores of liver parenchyma with at least five portal triad with mild chronic inflammation. No carcinoma was identified. Due to the fragmented nature of the specimen, it is difficult to appreciate architectural distortion. There is no bile ductular proliferation or reaction seen. Special stain trichrome and reticulin is performed with appropriately reactive controls on A1 and trichrome highlights minimal periportal fibrosis; reticulin shows preserved normal hepatic trabecular architecture. The following special studies were performed on this case and the interpretation is incorporated in the diagnostic report above:The following special studies were performed on this case and the interpretation is incorporated in the diagnostic report above: trichrome, reticulin. FINE NEEDLE ASPIRATE (FNA) REQUEST 2018-02-16 11:00:00 Test Item Value Reference Range Comments CYTOLOGY RESULT POINTER (BEAKER) (test gjpw=8332) See Separate Report BASIC METABOLIC [id number] 06:09:00 Test Item Value Reference Range Comments SODIUM (BEAKER) (test 141 meq/L 136-145 afsa=637) POTASSIUM (BEAKER) (test 4.0 meq/L 3.5-5.1 vsck=765) CHLORIDE (BEAKER) (test 112 meq/L 98-107 wrhi=227) CO2 (BEAKER) (test 23 meq/L 22-29 ehia=965) BLOOD UREA NITROGEN 14 mg/dL 7-21 (BEAKER) (test fkhd=993) CREATININE (BEAKER) (test 1.57 mg/dL 0.57-1.25 uesg=908) GLUCOSE RANDOM (BEAKER) 109 mg/dL 70-105 (test qvqk=184) CALCIUM (BEAKER) (test 8.3 mg/dL 8.4-10.2 yfvs=667) EGFR (BEAKER) (test 45 mL/min/1.73 sq m ESTIMATED GFR IS NOT qakf=7196) ACCURATE CREATININE CLEARANCE IN PREDICTING GLOMERULAR FILTRATION RATE. ESTIMATED GFR IS NOT APPLICABLE FOR DIALYSIS PATIENTS. CBC (HEMOGRAM ONLY)2018-02-16 05:41:00 Test Item Value Reference Range Comments WHITE BLOOD CELL COUNT (BEAKER) (test ijfl=705) 6.6 K/ L 3.5-10.5 RED BLOOD CELL COUNT (BEAKER) (test pxzx=308) 2.98 M/ L 4.63-6.08 HEMOGLOBIN (BEAKER) (test ioqf=546) 8.9 GM/DL 13.7-17.5 HEMATOCRIT (BEAKER) (test ptpv=931) 28.6 % 40.1-51.0 MEAN CORPUSCULAR VOLUME (BEAKER) (test rhpo=068) 96.0 fL 79.0-92.2 MEAN CORPUSCULAR HEMOGLOBIN (BEAKER) (test 29.9 pg 25.7-32.2 jtah=544) MEAN CORPUSCULAR HEMOGLOBIN CONC (BEAKER) (test 31.1 GM/DL 32.3-36.5 wctg=492) RED CELL DISTRIBUTION WIDTH (BEAKER) (test 14.7 % 11.6-14.4 dlwr=620) PLATELET COUNT (BEAKER) (test mayb=894) 206 K/CU MM 150-450 MEAN PLATELET VOLUME (BEAKER) (test sobh=093) 8.9 fL 9.4-12.4 NUCLEATED RED BLOOD CELLS (BEAKER) (test 0 /100 WBC 0-0 vyem=487) BASIC METABOLIC [id number] 05:52:00 Test Item Value Reference Range Comments SODIUM (BEAKER) (test 141 meq/L 136-145 hxwk=421) POTASSIUM (BEAKER) (test 4.1 meq/L 3.5-5.1 imue=935) CHLORIDE (BEAKER) (test 110 meq/L 98-107 pnez=213) CO2 (BEAKER) (test 25 meq/L 22-29 wzoh=897) BLOOD UREA NITROGEN 14 mg/dL 7-21 (BEAKER) (test znda=034) CREATININE (BEAKER) (test 1.82 mg/dL 0.57-1.25 mppr=276) GLUCOSE RANDOM (BEAKER) 118 mg/dL 70-105 (test ctnc=551) CALCIUM (BEAKER) (test 8.5 mg/dL 8.4-10.2 enqe=212) EGFR (BEAKER) (test 38 mL/min/1.73 sq m ESTIMATED GFR IS NOT tofk=3097) ACCURATE CREATININE CLEARANCE IN PREDICTING GLOMERULAR FILTRATION RATE. ESTIMATED GFR IS NOT APPLICABLE FOR DIALYSIS PATIENTS. CBC (HEMOGRAM ONLY)2018-02-15 05:12:00 Test Item Value Reference Range Comments WHITE BLOOD CELL COUNT (BEAKER) (test mmzz=652) 7.2 K/ L 3.5-10.5 RED BLOOD CELL COUNT (BEAKER) (test auvq=509) 2.94 M/ L 4.63-6.08 HEMOGLOBIN (BEAKER) (test clmt=723) 8.7 GM/DL 13.7-17.5 HEMATOCRIT (BEAKER) (test fanv=878) 28.2 % 40.1-51.0 MEAN CORPUSCULAR VOLUME (BEAKER) (test ritk=836) 95.9 fL 79.0-92.2 MEAN CORPUSCULAR HEMOGLOBIN (BEAKER) (test 29.6 pg 25.7-32.2 osvz=923) MEAN CORPUSCULAR HEMOGLOBIN CONC (BEAKER) (test 30.9 GM/DL 32.3-36.5 dzio=978) RED CELL DISTRIBUTION WIDTH (BEAKER) (test 14.8 % 11.6-14.4 szjx=264) PLATELET COUNT (BEAKER) (test myhj=424) 227 K/CU MM 150-450 MEAN PLATELET VOLUME (BEAKER) (test newv=029) 9.2 fL 9.4-12.4 NUCLEATED RED BLOOD CELLS (BEAKER) (test 0 /100 WBC 0-0 nktd=046) U/S, ABDOMINAL, [id number] 07:47:00Reason for exam:->liver massFINAL REPORT Ultrasound of abdomen, limited INDICATION: Liver mass COMPARISON: CT dated February 09, 2018 FINDINGS: Sonographic evaluation of the liver is performed in preparationfor biopsy of liver lesion seen on recent CT. However, no focal lesion is identified on ultrasound and biopsy was not performed. Signed: Joanne Diaz Verified Date/Time: 02/14/2018 07:47:16 Reading Location: [facility] Radiology Reading Room Electronically signed by: JOANNE DIAZ M.D. on02/14/2018 07:47 AMBASIC METABOLIC [id number] 06:19:00 Test Item Value Reference Range Comments SODIUM (BEAKER) (test 140 meq/L 136-145 hgjk=862) POTASSIUM (BEAKER) (test 3.9 meq/L 3.5-5.1 azqu=212) CHLORIDE (BEAKER) (test 110 meq/L 98-107 dhyx=492) CO2 (BEAKER) (test 24 meq/L 22-29 rfzk=771) BLOOD UREA NITROGEN 15 mg/dL 7-21 (BEAKER) (test uoxa=136) CREATININE (BEAKER) (test 1.61 mg/dL 0.57-1.25 ltne=790) GLUCOSE RANDOM (BEAKER) 105 mg/dL 70-105 (test lddf=965) CALCIUM (BEAKER) (test 8.2 mg/dL 8.4-10.2 cmaz=281) EGFR (BEAKER) (test 44 mL/min/1.73 sq m ESTIMATED GFR IS NOT jakd=8031) ACCURATE CREATININE CLEARANCE IN PREDICTING GLOMERULAR FILTRATION RATE. ESTIMATED GFR IS NOT APPLICABLE FOR DIALYSIS PATIENTS. CBC (HEMOGRAM ONLY)2018-02-14 05:42:00 Test Item Value Reference Range Comments WHITE BLOOD CELL COUNT (BEAKER) (test qqaw=078) 7.6 K/ L 3.5-10.5 RED BLOOD CELL COUNT (BEAKER) (test cssq=894) 2.83 M/ L 4.63-6.08 HEMOGLOBIN (BEAKER) (test gjzo=379) 8.3 GM/DL 13.7-17.5 HEMATOCRIT (BEAKER) (test woha=681) 26.9 % 40.1-51.0 MEAN CORPUSCULAR VOLUME (BEAKER) (test clde=761) 95.1 fL 79.0-92.2 MEAN CORPUSCULAR HEMOGLOBIN (BEAKER) (test 29.3 pg 25.7-32.2 aijo=469) MEAN CORPUSCULAR HEMOGLOBIN CONC (BEAKER) (test 30.9 GM/DL 32.3-36.5 dmrh=926) RED CELL DISTRIBUTION WIDTH (BEAKER) (test 14.6 % 11.6-14.4 dlad=127) PLATELET COUNT (BEAKER) (test aorn=171) 252 K/CU MM 150-450 MEAN PLATELET VOLUME (BEAKER) (test uogf=716) 9.2 fL 9.4-12.4 NUCLEATED RED BLOOD CELLS (BEAKER) (test 0 /100 WBC 0-0 yfys=609) PROTEIN ELECTROPHORESIS, [id number] 14:00:00 Test Item Value Reference Range Comments ALBUMIN FRACTION (BEAKER) 2.6 g/dL 3.5-5.5 (test ucpy=921) ALPHA 1 FRACTION (BEAKER) 0.2 g/dL 0.2-0.4 (test netl=108) ALPHA 2 FRACTION (BEAKER) 0.6 g/dL 0.5-0.9 (test cmmq=273) BETA FRACTION (BEAKER) (test 0.9 g/dL 0.6-1.1 ltkt=129) GAMMA GLOBULIN FRACTION 0.7 g/dL 0.7-1.7 (BEAKER) (test eqft=558) INTERPRETATION-119 (BEAKER) Decreased albumin, suggestive of (test sbgr=4677) protein loss. Pattern otherwise consistent with mild acute inflammatory response. No monoclonal bands detected. [id number] Lilly Harris MD (BEAKER) (test pccw=2137) (electronic signature) PROTEIN TOTAL SERUM, SPEP 5.0 gm/dL 6.0-8.3 (BEAKER) (test soth=3544) BASIC METABOLIC [id number] 05:12:00 Test Item Value Reference Range Comments SODIUM (BEAKER) (test 140 meq/L 136-145 ylgm=045) POTASSIUM (BEAKER) (test 3.8 meq/L 3.5-5.1 bgwk=523) CHLORIDE (BEAKER) (test 111 meq/L 98-107 vptk=457) CO2 (BEAKER) (test 24 meq/L 22-29 wrde=073) BLOOD UREA NITROGEN 14 mg/dL 7-21 (BEAKER) (test tsmm=378) CREATININE (BEAKER) (test 1.56 mg/dL 0.57-1.25 pswc=603) GLUCOSE RANDOM (BEAKER) 104 mg/dL 70-105 (test wiay=724) CALCIUM (BEAKER) (test 8.2 mg/dL 8.4-10.2 sdpl=042) EGFR (BEAKER) (test 45 mL/min/1.73 sq m ESTIMATED GFR IS NOT oxzu=7573) ACCURATE CREATININE CLEARANCE IN PREDICTING GLOMERULAR FILTRATION RATE. ESTIMATED GFR IS NOT APPLICABLE FOR DIALYSIS PATIENTS. [id number] 04:59:00 Test Item Value Reference Range Comments PROTIME (BEAKER) (test lgpo=296) 14.5 seconds 11.7-14.7 INR (BEAKER) (test uzsy=963) 1.1 <=5.9 PARTIAL THROMBOPLASTIN TIME (BEAKER) (test 37.1 seconds 22.5-36.0 cqft=024) RECOMMENDED COUMADIN/WARFARIN INR THERAPY RANGESSTANDARD DOSE: 2.0 - 3.0 Includes: PROPHYLAXIS forvenous thrombosis, systemic embolization; TREATMENT for venous thrombosis and/or pulmonary embolus.HIGH RISK: Target INR is 2.5-3.5 for patients with mechanical heart valves.CBC (HEMOGRAM ONLY)2018-02-13 04:49:00 Test Item Value Reference Range Comments WHITE BLOOD CELL COUNT (BEAKER) (test lozr=050) 8.9 K/ L 3.5-10.5 RED BLOOD CELL COUNT (BEAKER) (test gnal=425) 2.95 M/ L 4.63-6.08 HEMOGLOBIN (BEAKER) (test tkre=513) 8.7 GM/DL 13.7-17.5 HEMATOCRIT (BEAKER) (test fchg=763) 27.9 % 40.1-51.0 MEAN CORPUSCULAR VOLUME (BEAKER) (test gbgi=840) 94.6 fL 79.0-92.2 MEAN CORPUSCULAR HEMOGLOBIN (BEAKER) (test 29.5 pg 25.7-32.2 imsn=234) MEAN CORPUSCULAR HEMOGLOBIN CONC (BEAKER) (test 31.2 GM/DL 32.3-36.5 oyio=439) RED CELL DISTRIBUTION WIDTH (BEAKER) (test 14.5 % 11.6-14.4 djzj=027) PLATELET COUNT (BEAKER) (test olhx=154) 264 K/CU MM 150-450 MEAN PLATELET VOLUME (BEAKER) (test iuee=954) 9.1 fL 9.4-12.4 NUCLEATED RED BLOOD CELLS (BEAKER) (test 0 /100 WBC 0-0 pfva=240) BASIC METABOLIC [id number] 06:13:00 Test Item Value Reference Range Comments SODIUM (BEAKER) (test 140 meq/L 136-145 ydhp=628) POTASSIUM (BEAKER) (test 3.9 meq/L 3.5-5.1 cpez=494) CHLORIDE (BEAKER) (test 111 meq/L 98-107 mobu=545) CO2 (BEAKER) (test 23 meq/L 22-29 rbnb=350) BLOOD UREA NITROGEN 12 mg/dL 7-21 (BEAKER) (test juyr=155) CREATININE (BEAKER) (test 1.50 mg/dL 0.57-1.25 yheb=187) GLUCOSE RANDOM (BEAKER) 100 mg/dL 70-105 (test lnxw=585) CALCIUM (BEAKER) (test 8.0 mg/dL 8.4-10.2 rfjj=072) EGFR (BEAKER) (test 47 mL/min/1.73 sq m ESTIMATED GFR IS NOT jahc=5150) ACCURATE CREATININE CLEARANCE IN PREDICTING GLOMERULAR FILTRATION RATE. ESTIMATED GFR IS NOT APPLICABLE FOR DIALYSIS PATIENTS. CBC (HEMOGRAM ONLY)2018-02-12 05:35:00 Test Item Value Reference Range Comments WHITE BLOOD CELL COUNT (BEAKER) (test zidt=500) 9.1 K/ L 3.5-10.5 RED BLOOD CELL COUNT (BEAKER) (test nzjc=990) 2.89 M/ L 4.63-6.08 HEMOGLOBIN (BEAKER) (test pofr=474) 8.5 GM/DL 13.7-17.5 HEMATOCRIT (BEAKER) (test rged=416) 27.2 % 40.1-51.0 MEAN CORPUSCULAR VOLUME (BEAKER) (test vgdj=143) 94.1 fL 79.0-92.2 MEAN CORPUSCULAR HEMOGLOBIN (BEAKER) (test 29.4 pg 25.7-32.2 xhdk=600) MEAN CORPUSCULAR HEMOGLOBIN CONC (BEAKER) (test 31.3 GM/DL 32.3-36.5 ylin=830) RED CELL DISTRIBUTION WIDTH (BEAKER) (test 14.2 % 11.6-14.4 zdys=329) PLATELET COUNT (BEAKER) (test pkgu=431) 295 K/CU MM 150-450 MEAN PLATELET VOLUME (BEAKER) (test esev=440) 9.1 fL 9.4-12.4 NUCLEATED RED BLOOD CELLS (BEAKER) (test 0 /100 WBC 0-0 npcp=117) BASIC METABOLIC [id number] 06:06:00 Test Item Value Reference Range Comments SODIUM (BEAKER) (test 143 meq/L 136-145 caea=728) POTASSIUM (BEAKER) (test 3.9 meq/L 3.5-5.1 zzrq=852) CHLORIDE (BEAKER) (test 113 meq/L 98-107 xihy=503) CO2 (BEAKER) (test 25 meq/L 22-29 dwmy=738) BLOOD UREA NITROGEN 12 mg/dL 7-21 (BEAKER) (test fzme=661) CREATININE (BEAKER) (test 1.79 mg/dL 0.57-1.25 wxwr=508) GLUCOSE RANDOM (BEAKER) 109 mg/dL 70-105 (test jelb=486) CALCIUM (BEAKER) (test 8.0 mg/dL 8.4-10.2 xklq=101) EGFR (BEAKER) (test 39 mL/min/1.73 sq m ESTIMATED GFR IS NOT tpii=8536) ACCURATE CREATININE CLEARANCE IN PREDICTING GLOMERULAR FILTRATION RATE. ESTIMATED GFR IS NOT APPLICABLE FOR DIALYSIS PATIENTS. CBC (HEMOGRAM ONLY)2018-02-11 05:09:00 Test Item Value Reference Range Comments WHITE BLOOD CELL COUNT (BEAKER) (test qvgm=268) 6.3 K/ L 3.5-10.5 RED BLOOD CELL COUNT (BEAKER) (test edsa=954) 2.75 M/ L 4.63-6.08 HEMOGLOBIN (BEAKER) (test cmbg=008) 8.1 GM/DL 13.7-17.5 HEMATOCRIT (BEAKER) (test mwpp=255) 25.8 % 40.1-51.0 MEAN CORPUSCULAR VOLUME (BEAKER) (test afvc=097) 93.8 fL 79.0-92.2 MEAN CORPUSCULAR HEMOGLOBIN (BEAKER) (test 29.5 pg 25.7-32.2 zels=045) MEAN CORPUSCULAR HEMOGLOBIN CONC (BEAKER) (test 31.4 GM/DL 32.3-36.5 qjzb=355) RED CELL DISTRIBUTION WIDTH (BEAKER) (test 14.4 % 11.6-14.4 mjhy=279) PLATELET COUNT (BEAKER) (test ndpu=395) 301 K/CU MM 150-450 MEAN PLATELET VOLUME (BEAKER) (test ezml=955) 8.9 fL 9.4-12.4 NUCLEATED RED BLOOD CELLS (BEAKER) (test 0 /100 WBC 0-0 ezpn=453) [id number] 18:24:00 Test Item Value Reference Range Comments FERRITIN (BEAKER) (test msfx=629) 36 ng/mL 5-275 VITAMIN D, [id number] 10:53:00 Test Item Value Reference Range Comments VITAMIN D 25-OH (BEAKER) (test whjr=6797) 10.7 ng/mL 6.6-49.9 Effective 02/02/2017: Reference Range ChangeNew: 6.6-49.9 ng/mL Previous: 13.0 -47.8 ng/mLRecommended Vitamin D Target Range: 30.0-40.0 ng/mLIRON, TIBC, % SAT. (WITHOUT FERRITIN)2018-02-10 08:06:00 Test Item Value Reference Range Comments IRON (BEAKER) (test othk=043) 26 ug/dL 40-160 TOTAL IRON BINDING CAPACITY (BEAKER) (test 274 ug/dL 250-450 idrd=682) IRON % SATURATION (2) (BEAKER) (test mvlh=7563) 9 % 20-55 CARCINOEMBRYONIC ANTIGEN (CEA)2018-02-10 08:00:00 Test Item Value Reference Range Comments CARCINOEMBRYONIC ANTIGEN (BEAKER) (test nhcl=340) 2.6 ng/mL 0.0-5.0 PTH, [id number] 07:29:00 Test Item Value Reference Range Comments PARATHYROID HORMONE INTACT (BEAKER) (test 78.6 pg/mL 8.5-72.5 xqaj=477) URIC [id number] 06:42:00 Test Item Value Reference Range Comments URIC ACID (BEAKER) (test friz=718) 6.2 mg/dL 2.6-7.2 BASIC METABOLIC [id number] 06:42:00 Test Item Value Reference Range Comments SODIUM (BEAKER) (test 140 meq/L 136-145 jwlr=163) POTASSIUM (BEAKER) (test 4.3 meq/L 3.5-5.1 qfvh=474) CHLORIDE (BEAKER) (test 110 meq/L 98-107 vlff=037) CO2 (BEAKER) (test 24 meq/L 22-29 lwrk=392) BLOOD UREA NITROGEN 14 mg/dL 7-21 (BEAKER) (test vfhc=657) CREATININE (BEAKER) (test 1.65 mg/dL 0.57-1.25 xoob=510) GLUCOSE RANDOM (BEAKER) 109 mg/dL 70-105 (test ijuw=543) CALCIUM (BEAKER) (test 8.0 mg/dL 8.4-10.2 erld=011) EGFR (BEAKER) (test 42 mL/min/1.73 sq m ESTIMATED GFR IS NOT qrlc=3100) ACCURATE CREATININE CLEARANCE IN PREDICTING GLOMERULAR FILTRATION RATE. ESTIMATED GFR IS NOT APPLICABLE FOR DIALYSIS PATIENTS. CBC (HEMOGRAM ONLY)2018-02-10 06:06:00 Test Item Value Reference Range Comments WHITE BLOOD CELL COUNT (BEAKER) (test mcjr=862) 7.6 K/ L 3.5-10.5 RED BLOOD CELL COUNT (BEAKER) (test lyml=565) 2.90 M/ L 4.63-6.08 HEMOGLOBIN (BEAKER) (test zusq=190) 8.6 GM/DL 13.7-17.5 HEMATOCRIT (BEAKER) (test ropb=246) 27.6 % 40.1-51.0 MEAN CORPUSCULAR VOLUME (BEAKER) (test ytuc=159) 95.2 fL 79.0-92.2 MEAN CORPUSCULAR HEMOGLOBIN (BEAKER) (test 29.7 pg 25.7-32.2 lkgv=685) MEAN CORPUSCULAR HEMOGLOBIN CONC (BEAKER) (test 31.2 GM/DL 32.3-36.5 bbhv=977) RED CELL DISTRIBUTION WIDTH (BEAKER) (test 14.6 % 11.6-14.4 dhzp=355) PLATELET COUNT (BEAKER) (test rfmv=738) 296 K/CU MM 150-450 MEAN PLATELET VOLUME (BEAKER) (test eouh=230) 9.2 fL 9.4-12.4 NUCLEATED RED BLOOD CELLS (BEAKER) (test 0 /100 WBC 0-0 fhvt=531) CT, CHEST, WITH [id number] 00:28:00FINAL REPORT CT, CHEST, WITH CONTRAST, CT, ABDOMEN \\T\\ PELVIS, WITH IV CONTRAST INDICATION: eval for mets COMPARISON: None TECHNIQUE:Post contrast chest, abdomen and pelvis CT. Coronal and sagittal reformatted images obtained. DOSE REDUCTION: Dose modulation, iterative reconstruction, and/or weight-based adjustment of the mA/kV was utilized to reduce the radiation dose to as low as reasonably achievable. FINDINGS: Chest:Mild centrilobular emphysema is present in the apices. [...] No blastic or lytic lesion is present. Abdomen/Pelvis:Oral contrast has reached the cecum at the time of imaging. Moderate stool burden is present in the colon. Diverticular disease is noted distally. There are no adjacent inflammatory changes. There is asymmetric thickening of the rectal vault, slightly greater along the left lateral and posterior aspect. Thereis no perirectal inflammation or soft tissue expansion beyond the confines of the rectum. There is no retroperitoneal, mesenteric or portal adenopathy. Iliac chains are unremarkable. There is no ascites. Innumerable low-attenuation lesions are seen within the right liver lobe. Reference lesions in theright lobe near the hepatic dome measure up to 1.5 and 1.9 cm, respectively. No focus of abnormal enhancement is present. There is no biliary ductal dilation. The gallbladder, pancreas, spleen, adrenalglands, and kidneys demonstrate normal postcontrast appearance. There is no obstructing stone in thecollecting systems. Aortic and biiliac grafting is present. [...] the liver concerning for metastatic foci. No discernibleadenopathy. No evidence of intrathoracic metastatic disease. 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 There is no abnormal enhancement of the adjacent venous structures to suggest the presence of fistula. Sonographic surveillance is suggested. Signed: JR Horta Robert MDReport Verified Date/Time: 02/10/2018 00:28:46 Reading Location: [facility] C013Y CT Body Reading Room CT, [id number] 00:28:00FINAL REPORT CT, CHEST, WITH CONTRAST, CT, ABDOMEN \\T\\ PELVIS, WITH IV CONTRAST INDICATION: eval for mets COMPARISON: None TECHNIQUE:Post contrast chest, abdomen and pelvis CT. Coronal and sagittal reformatted images obtained. DOSE REDUCTION: Dose modulation, iterative reconstruction, and/or weight-based adjustment of the mA/kV was utilized to reduce the radiation dose to as low as reasonably achievable. FINDINGS: Chest:Mild centrilobular emphysema is present in the apices. [...] No blastic or lytic lesion is present. Abdomen/Pelvis:Oral contrast has reached the cecum at the time of imaging. Moderate stool burden is present in the colon. Diverticular disease is noted distally. There are no adjacent inflammatory changes. There is asymmetric thickening of the rectal vault, slightly greater along the left lateral and posterior aspect. Thereis no perirectal inflammation or soft tissue expansion beyond the confines of the rectum. There is no retroperitoneal, mesenteric or portal adenopathy. Iliac chains are unremarkable. There is no ascites. Innumerable low-attenuation lesions are seen within the right liver lobe. Reference lesions in theright lobe near the hepatic dome measure up to 1.5 and 1.9 cm, respectively. No focus of abnormal enhancement is present. There is no biliary ductal dilation. The gallbladder, pancreas, spleen, adrenalglands, and kidneys demonstrate normal postcontrast appearance. There is no obstructing stone in thecollecting systems. Aortic and biiliac grafting is present. [...] the liver concerning for metastatic foci. No discernibleadenopathy. No evidence of intrathoracic metastatic disease. 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 There is no abnormal enhancement of the adjacent venous structures to suggest the presence of fistula. Sonographic surveillance is suggested. Signed: JR Horta Robert MDReport Verified Date/Time: 02/10/2018 00:28:46 Reading Location: [address] Body Reading Room PROTEIN, RANDOM [id number] 18:49:00 Test Item Value Reference Range Comments PROTEIN, URINE (BEAKER) (test layc=1798) < mg/dL 0-14 BASIC METABOLIC [id number] 06:59:00 Test Item Value Reference Range Comments SODIUM (BEAKER) (test 142 meq/L 136-145 beul=860) POTASSIUM (BEAKER) (test 4.4 meq/L 3.5-5.1 bnjd=320) CHLORIDE (BEAKER) (test 114 meq/L 98-107 tjta=762) CO2 (BEAKER) (test 23 meq/L 22-29 mrts=452) BLOOD UREA NITROGEN 14 mg/dL 7-21 (BEAKER) (test gxwx=233) CREATININE (BEAKER) (test 1.58 mg/dL 0.57-1.25 ejbq=147) GLUCOSE RANDOM (BEAKER) 95 mg/dL 70-105 (test mjzi=988) CALCIUM (BEAKER) (test 7.9 mg/dL 8.4-10.2 inci=644) EGFR (BEAKER) (test 45 mL/min/1.73 sq m ESTIMATED GFR IS NOT lvix=7031) ACCURATE CREATININE CLEARANCE IN PREDICTING GLOMERULAR FILTRATION RATE. ESTIMATED GFR IS NOT APPLICABLE FOR DIALYSIS PATIENTS. CBC (HEMOGRAM ONLY)2018-02-09 04:22:00 Test Item Value Reference Range Comments WHITE BLOOD CELL COUNT (BEAKER) (test dlqf=438) 7.9 K/ L 3.5-10.5 RED BLOOD CELL COUNT (BEAKER) (test lsyw=253) 2.81 M/ L 4.63-6.08 HEMOGLOBIN (BEAKER) (test pcjm=818) 8.5 GM/DL 13.7-17.5 HEMATOCRIT (BEAKER) (test sxjm=717) 27.3 % 40.1-51.0 MEAN CORPUSCULAR VOLUME (BEAKER) (test nftr=701) 97.2 fL 79.0-92.2 MEAN CORPUSCULAR HEMOGLOBIN (BEAKER) (test 30.2 pg 25.7-32.2 mibc=507) MEAN CORPUSCULAR HEMOGLOBIN CONC (BEAKER) (test 31.1 GM/DL 32.3-36.5 kqak=030) RED CELL DISTRIBUTION WIDTH (BEAKER) (test 14.9 % 11.6-14.4 noge=232) PLATELET COUNT (BEAKER) (test nhfv=392) 294 K/CU MM 150-450 MEAN PLATELET VOLUME (BEAKER) (test mbvt=285) 9.4 fL 9.4-12.4 NUCLEATED RED BLOOD CELLS (BEAKER) (test 0 /100 WBC 0-0 qayy=508) [id number] 15:28:00 Test Item Value Reference Range Comments ACTIVATED CLOTTING TIME [address] [facility] [address] [facility] (test qfms=585) [facility] [address] [id number] 14:58:00 Test Item Value Reference Range Comments ACTIVATED CLOTTING TIME [address] [facility] [address] (BEAKER) (test pdid=930) [facility] [address] BASIC METABOLIC [id number] 07:24:00 Test Item Value Reference Range Comments SODIUM (BEAKER) (test 141 meq/L 136-145 ftzq=806) POTASSIUM (BEAKER) (test 4.1 meq/L 3.5-5.1 hkez=034) CHLORIDE (BEAKER) (test 116 meq/L 98-107 asyv=219) CO2 (BEAKER) (test 20 meq/L 22-29 luih=938) BLOOD UREA NITROGEN 16 mg/dL 7-21 (BEAKER) (test jqma=964) CREATININE (BEAKER) (test 1.68 mg/dL 0.57-1.25 shoi=334) GLUCOSE RANDOM (BEAKER) 106 mg/dL 70-105 (test emrk=172) CALCIUM (BEAKER) (test 7.9 mg/dL 8.4-10.2 vokt=304) EGFR (BEAKER) (test 42 mL/min/1.73 sq m ESTIMATED GFR IS NOT jdtk=9038) ACCURATE CREATININE CLEARANCE IN PREDICTING GLOMERULAR FILTRATION RATE. ESTIMATED GFR IS NOT APPLICABLE FOR DIALYSIS PATIENTS. PROTHROMBIN TIME/[id number] 06:29:00 Test Item Value Reference Range Comments PROTIME (BEAKER) (test bwur=757) 14.4 seconds 11.7-14.7 INR (BEAKER) (test xrvu=000) 1.1 <=5.9 RECOMMENDED COUMADIN/WARFARIN INR THERAPY RANGESSTANDARD DOSE: 2.0 - 3.0 Includes: PROPHYLAXIS forvenous thrombosis, systemic embolization; TREATMENT for venous thrombosis and/or pulmonary embolus.HIGH RISK: Target INR is 2.5-3.5 for patients with mechanical heart valves.CBC (HEMOGRAM ONLY)2018-02-08 06:13:00 Test Item Value Reference Range Comments WHITE BLOOD CELL COUNT (BEAKER) (test wjlr=090) 7.2 K/ L 3.5-10.5 RED BLOOD CELL COUNT (BEAKER) (test wqso=244) 2.86 M/ L 4.63-6.08 HEMOGLOBIN (BEAKER) (test zfan=650) 8.7 GM/DL 13.7-17.5 HEMATOCRIT (BEAKER) (test aizv=495) 28.1 % 40.1-51.0 MEAN CORPUSCULAR VOLUME (BEAKER) (test hxcx=396) 98.3 fL 79.0-92.2 MEAN CORPUSCULAR HEMOGLOBIN (BEAKER) (test 30.4 pg 25.7-32.2 fcks=478) MEAN CORPUSCULAR HEMOGLOBIN CONC (BEAKER) (test 31.0 GM/DL 32.3-36.5 vwje=183) RED CELL DISTRIBUTION WIDTH (BEAKER) (test 14.8 % 11.6-14.4 zatm=663) PLATELET COUNT (BEAKER) (test wuxb=197) 317 K/CU MM 150-450 MEAN PLATELET VOLUME (BEAKER) (test rqnb=139) 9.2 fL 9.4-12.4 NUCLEATED RED BLOOD CELLS (BEAKER) (test 0 /100 WBC 0-0 trzz=846) BASIC METABOLIC [id number] 07:01:00 Test Item Value Reference Range Comments SODIUM (BEAKER) (test 140 meq/L 136-145 pavd=874) POTASSIUM (BEAKER) (test 4.2 meq/L 3.5-5.1 pmsi=484) CHLORIDE (BEAKER) (test 113 meq/L 98-107 nfhk=257) CO2 (BEAKER) (test 21 meq/L 22-29 bsjm=334) BLOOD UREA NITROGEN 18 mg/dL 7-21 (BEAKER) (test suzp=795) CREATININE (BEAKER) (test 1.51 mg/dL 0.57-1.25 oasn=656) GLUCOSE RANDOM (BEAKER) 102 mg/dL 70-105 (test etce=093) CALCIUM (BEAKER) (test 8.1 mg/dL 8.4-10.2 spxy=398) EGFR (BEAKER) (test 47 mL/min/1.73 sq m ESTIMATED GFR IS NOT pmqj=4561) ACCURATE CREATININE CLEARANCE IN PREDICTING GLOMERULAR FILTRATION RATE. ESTIMATED GFR IS NOT APPLICABLE FOR DIALYSIS PATIENTS. PROTHROMBIN TIME/[id number] 05:33:00 Test Item Value Reference Range Comments PROTIME (BEAKER) (test lxna=565) 15.3 seconds 11.7-14.7 INR (BEAKER) (test fith=086) 1.2 <=5.9 RECOMMENDED COUMADIN/WARFARIN INR THERAPY RANGESSTANDARD DOSE: 2.0 - 3.0 Includes: PROPHYLAXIS forvenous thrombosis, systemic embolization; TREATMENT for venous thrombosis and/or pulmonary embolus.HIGH RISK: Target INR is 2.5-3.5 for patients with mechanical heart valves.CBC (HEMOGRAM ONLY)2018-02-07 05:10:00 Test Item Value Reference Range Comments WHITE BLOOD CELL COUNT (BEAKER) (test ehdi=429) 9.9 K/ L 3.5-10.5 RED BLOOD CELL COUNT (BEAKER) (test eued=557) 2.56 M/ L 4.63-6.08 HEMOGLOBIN (BEAKER) (test dqrf=510) 7.6 GM/DL 13.7-17.5 HEMATOCRIT (BEAKER) (test vedv=401) 24.4 % 40.1-51.0 MEAN CORPUSCULAR VOLUME (BEAKER) (test bzim=700) 95.3 fL 79.0-92.2 MEAN CORPUSCULAR HEMOGLOBIN (BEAKER) (test 29.7 pg 25.7-32.2 etaf=596) MEAN CORPUSCULAR HEMOGLOBIN CONC (BEAKER) (test 31.1 GM/DL 32.3-36.5 gvbj=997) RED CELL DISTRIBUTION WIDTH (BEAKER) (test 15.2 % 11.6-14.4 ucsw=447) PLATELET COUNT (BEAKER) (test gkog=680) 355 K/CU MM 150-450 MEAN PLATELET VOLUME (BEAKER) (test gcgi=698) 9.2 fL 9.4-12.4 NUCLEATED RED BLOOD CELLS (BEAKER) (test 0 /100 WBC 0-0 iube=286) HEMOGLOBIN AND [id number] 21:29:00 Test Item Value Reference Range Comments HEMOGLOBIN (BEAKER) (test iago=977) 7.5 GM/DL 13.7-17.5 HEMATOCRIT (BEAKER) (test hdph=736) 23.2 % 40.1-51.0 PROTHROMBIN [id number] 10:11:00 Test Item Value Reference Range Comments PROTIME (BEAKER) (test gvki=309) 19.0 seconds 11.7-14.7 INR (BEAKER) (test bmiv=507) 1.6 <=5.9 RECOMMENDED COUMADIN/WARFARIN INR THERAPY RANGESSTANDARD DOSE: 2.0 - 3.0 Includes: PROPHYLAXIS forvenous thrombosis, systemic embolization; TREATMENT for venous thrombosis and/or pulmonary embolus.HIGH RISK: Target INR is 2.5-3.5 for patients with mechanical heart valves.HEMOGLOBIN AND [id number] 10 :03:00 Test Item Value Reference Range Comments HEMOGLOBIN (BEAKER) (test sxkm=493) 8.3 GM/DL 13.7-17.5 HEMATOCRIT (BEAKER) (test gdqc=310) 25.9 % 40.1-51.0 BASIC METABOLIC [id number] 23:30:00 Test Item Value Reference Range Comments SODIUM (BEAKER) (test 138 meq/L 136-145 iarz=212) POTASSIUM (BEAKER) (test 4.2 meq/L 3.5-5.1 eabw=596) CHLORIDE (BEAKER) (test 114 meq/L 98-107 jorz=615) CO2 (BEAKER) (test 20 meq/L 22-29 avws=501) BLOOD UREA NITROGEN 25 mg/dL 7-21 (BEAKER) (test vfnx=729) CREATININE (BEAKER) (test 1.83 mg/dL 0.57-1.25 xrmx=214) GLUCOSE RANDOM (BEAKER) 104 mg/dL 70-105 (test ckqi=345) CALCIUM (BEAKER) (test 7.7 mg/dL 8.4-10.2 chhg=432) EGFR (BEAKER) (test 38 mL/min/1.73 sq m ESTIMATED GFR IS NOT pvgg=2874) ACCURATE CREATININE CLEARANCE IN PREDICTING GLOMERULAR FILTRATION RATE. ESTIMATED GFR IS NOT APPLICABLE FOR DIALYSIS PATIENTS. HEPATIC FUNCTION [id number] 23:04:00 Test Item Value Reference Range Comments TOTAL PROTEIN (BEAKER) (test tfxc=641) 5.1 gm/dL 6.0-8.3 ALBUMIN (BEAKER) (test rndf=5733) 3.0 g/dL 3.5-5.0 BILIRUBIN TOTAL (BEAKER) (test yzbv=458) 0.3 mg/dL 0.2-1.2 BILIRUBIN DIRECT (BEAKER) (test btmm=743) 0.1 mg/dL 0.1-0.5 ALKALINE PHOSPHATASE (BEAKER) (test ulvz=591) 67 U/L 40-150 AST (SGOT) (BEAKER) (test inqc=030) 16 U/L 5-34 ALT (SGPT) (BEAKER) (test nrgo=369) 17 U/L 6-55 [id number] 23:03:00 Test Item Value Reference Range Comments PARTIAL THROMBOPLASTIN TIME (BEAKER) (test 44.4 seconds 22.5-36.0 onfv=417) PROTHROMBIN TIME/[id number] 23:02:00 Test Item Value Reference Range Comments PROTIME (BEAKER) (test iqzu=522) 34.9 seconds 11.7-14.7 INR (BEAKER) (test vbhq=133) 3.5 <=5.9 RECOMMENDED COUMADIN/WARFARIN INR THERAPY RANGESSTANDARD DOSE: 2.0 - 3.0 Includes: PROPHYLAXIS forvenous thrombosis, systemic embolization; TREATMENT for venous thrombosis and/or pulmonary embolus.HIGH RISK: Target INR is 2.5-3.5 for patients with mechanical heart valves.CBC W/PLT COUNT & AUTO [id number] 22:47:00 Test Item Value Reference Range Comments WHITE BLOOD CELL COUNT (BEAKER) (test wzzo=620) 10.5 K/ L 3.5-10.5 RED BLOOD CELL COUNT (BEAKER) (test copf=191) 2.01 M/ L 4.63-6.08 HEMOGLOBIN (BEAKER) (test anft=919) 6.1 GM/DL 13.7-17.5 HEMATOCRIT (BEAKER) (test wpuw=643) 19.3 % 40.1-51.0 MEAN CORPUSCULAR VOLUME (BEAKER) (test clci=687) 96.0 fL 79.0-92.2 MEAN CORPUSCULAR HEMOGLOBIN (BEAKER) (test 30.3 pg 25.7-32.2 pbgq=604) MEAN CORPUSCULAR HEMOGLOBIN CONC (BEAKER) (test 31.6 GM/DL 32.3-36.5 srsq=607) RED CELL DISTRIBUTION WIDTH (BEAKER) (test 15.0 % 11.6-14.4 nhpa=219) PLATELET COUNT (BEAKER) (test syuc=282) 377 K/CU MM 150-450 MEAN PLATELET VOLUME (BEAKER) (test mubz=488) 8.7 fL 9.4-12.4 NUCLEATED RED BLOOD CELLS (BEAKER) (test 0 /100 WBC 0-0 sunz=624) NEUTROPHILS RELATIVE PERCENT (BEAKER) (test 68 % dsql=008) LYMPHOCYTES RELATIVE PERCENT (BEAKER) (test 24 % knyt=636) MONOCYTES RELATIVE PERCENT (BEAKER) (test 6 % ruuw=991) EOSINOPHILS RELATIVE PERCENT (BEAKER) (test 2 % winw=973) BASOPHILS RELATIVE PERCENT (BEAKER) (test 0 % kqbs=868) NEUTROPHILS ABSOLUTE COUNT (BEAKER) (test 7.11 K/ L 1.78-5.38 zvsc=417) LYMPHOCYTES ABSOLUTE COUNT (BEAKER) (test 2.46 K/ L 1.32-3.57 gdcy=415) MONOCYTES ABSOLUTE COUNT (BEAKER) (test 0.65 K/ L 0.30-0.82 pduc=063) EOSINOPHILS ABSOLUTE COUNT (BEAKER) (test 0.17 K/ L 0.04-0.54 pazh=654) BASOPHILS ABSOLUTE COUNT (BEAKER) (test 0.04 K/ L 0.01-0.08 nmor=530) IMMATURE GRANULOCYTES-RELATIVE PERCENT (BEAKER) 1 % 0-1 (test kiee=4308) [id number] 05:35:00 Test Item Value Reference Range Comments PHOSPHORUS (BEAKER) (test jbzd=656) 2.7 mg/dL 2.3-4.7 [id number] 05:35:00 Test Item Value Reference Range Comments MAGNESIUM (BEAKER) (test pitn=552) 1.8 mg/dL 1.6-2.6 BASIC METABOLIC [id number] 05:35:00 Test Item Value Reference Range Comments SODIUM (BEAKER) (test 138 meq/L 136-145 esni=814) POTASSIUM (BEAKER) (test 4.2 meq/L 3.5-5.1 eese=762) CHLORIDE (BEAKER) (test 109 meq/L 98-107 ufhc=426) CO2 (BEAKER) (test 25 meq/L 22-29 elgb=478) BLOOD UREA NITROGEN 13 mg/dL 7-21 (BEAKER) (test shdp=830) CREATININE (BEAKER) (test 1.49 mg/dL 0.57-1.25 qzoh=991) GLUCOSE RANDOM (BEAKER) 104 mg/dL 70-105 (test rhji=281) CALCIUM (BEAKER) (test 8.4 mg/dL 8.4-10.2 hkue=639) EGFR (BEAKER) (test 48 mL/min/1.73 sq m ESTIMATED GFR IS NOT imjg=1787) ACCURATE CREATININE CLEARANCE IN PREDICTING GLOMERULAR FILTRATION RATE. ESTIMATED GFR IS NOT APPLICABLE FOR DIALYSIS PATIENTS. [id number] 05:29:00 Test Item Value Reference Range Comments PARTIAL THROMBOPLASTIN TIME (BEAKER) (test 130.9 seconds 22.5-36.0 nils=079) PROTHROMBIN [id number] 05:17:00 Test Item Value Reference Range Comments PROTIME (BEAKER) (test tkne=369) 24.2 seconds 11.7-14.7 INR (BEAKER) (test tbqp=751) 2.2 <=5.9 RECOMMENDED COUMADIN/WARFARIN INR THERAPY RANGESSTANDARD DOSE: 2.0 - 3.0 Includes: PROPHYLAXIS forvenous thrombosis, systemic embolization; TREATMENT for venous thrombosis and/or pulmonary embolus.HIGH RISK: Target INR is 2.5-3.5 for patients with mechanical heart valves.[id number] 00:15:00 Test Item Value Reference Range Comments PARTIAL THROMBOPLASTIN TIME (BEAKER) (test 76.8 seconds 22.5-36.0 geet=668) [id number] 16:54:00 Test Item Value Reference Range Comments PARTIAL THROMBOPLASTIN TIME (BEAKER) (test 47.3 seconds 22.5-36.0 yiqq=928) [id number] 14:53:00 Test Item Value Reference Range Comments PARTIAL THROMBOPLASTIN TIME (BEAKER) (test 125.8 seconds 22.5-36.0 uzqa=490) CBC (HEMOGRAM ONLY)2018-01-27 14:31:00 Test Item Value Reference Range Comments WHITE BLOOD CELL COUNT (BEAKER) (test kddp=270) 8.3 K/ L 3.5-10.5 RED BLOOD CELL COUNT (BEAKER) (test rxft=254) 3.28 M/ L 4.63-6.08 HEMOGLOBIN (BEAKER) (test gtpc=336) 9.8 GM/DL 13.7-17.5 HEMATOCRIT (BEAKER) (test vrsp=809) 31.4 % 40.1-51.0 MEAN CORPUSCULAR VOLUME (BEAKER) (test joph=898) 95.7 fL 79.0-92.2 MEAN CORPUSCULAR HEMOGLOBIN (BEAKER) (test 29.9 pg 25.7-32.2 gtog=087) MEAN CORPUSCULAR HEMOGLOBIN CONC (BEAKER) (test 31.2 GM/DL 32.3-36.5 wkkd=341) RED CELL DISTRIBUTION WIDTH (BEAKER) (test 14.0 % 11.6-14.4 ykor=059) PLATELET COUNT (BEAKER) (test bbic=834) 230 K/CU MM 150-450 MEAN PLATELET VOLUME (BEAKER) (test zjat=638) 9.7 fL 9.4-12.4 NUCLEATED RED BLOOD CELLS (BEAKER) (test 0 /100 WBC 0-0 ianv=231) PROTHROMBIN [id number] 08:29:00 Test Item Value Reference Range Comments PROTIME (BEAKER) (test bdmm=195) 16.1 seconds 11.7-14.7 INR (BEAKER) (test jzpp=100) 1.3 <=5.9 RECOMMENDED COUMADIN/WARFARIN INR THERAPY RANGESSTANDARD DOSE: 2.0 - 3.0 Includes: PROPHYLAXIS forvenous thrombosis, systemic embolization; TREATMENT for venous thrombosis and/or pulmonary embolus.HIGH RISK: Target INR is 2.5-3.5 for patients with mechanical heart valves.6 hours after starting heparin infusion and as indicated per sliding [id number] 07:17:00 Test Item Value Reference Range Comments PHOSPHORUS (BEAKER) (test pqpz=174) 2.1 mg/dL 2.3-4.7 [id number] 07:17:00 Test Item Value Reference Range Comments MAGNESIUM (BEAKER) (test zslq=231) 2.0 mg/dL 1.6-2.6 BASIC METABOLIC [id number] 07:17:00 Test Item Value Reference Range Comments SODIUM (BEAKER) (test 138 meq/L 136-145 rfcs=755) POTASSIUM (BEAKER) (test 4.2 meq/L 3.5-5.1 mlys=291) CHLORIDE (BEAKER) (test 109 meq/L 98-107 whgj=133) CO2 (BEAKER) (test 25 meq/L 22-29 mhjq=614) BLOOD UREA NITROGEN 15 mg/dL 7-21 (BEAKER) (test zijv=096) CREATININE (BEAKER) (test 1.47 mg/dL 0.57-1.25 xcvj=764) GLUCOSE RANDOM (BEAKER) 106 mg/dL 70-105 (test srtt=585) CALCIUM (BEAKER) (test 8.3 mg/dL 8.4-10.2 ytqf=817) EGFR (BEAKER) (test 49 mL/min/1.73 sq m ESTIMATED GFR IS NOT lmuz=7452) ACCURATE CREATININE CLEARANCE IN PREDICTING GLOMERULAR FILTRATION RATE. ESTIMATED GFR IS NOT APPLICABLE FOR DIALYSIS PATIENTS. [id number] 07:07:00 Test Item Value Reference Range Comments PARTIAL THROMBOPLASTIN TIME (BEAKER) (test 107.3 seconds 22.5-36.0 uwdm=195) 6 hours after starting heparin infusion and as indicated per sliding scaleCBC ( HEMOGRAM ONLY)2018-01-27 06:30:00 Test Item Value Reference Range Comments WHITE BLOOD CELL COUNT (BEAKER) (test jjjc=348) 8.3 K/ L 3.5-10.5 RED BLOOD CELL COUNT (BEAKER) (test vvvi=545) 3.38 M/ L 4.63-6.08 HEMOGLOBIN (BEAKER) (test joug=699) 10.1 GM/DL 13.7-17.5 HEMATOCRIT (BEAKER) (test szmz=204) 32.3 % 40.1-51.0 MEAN CORPUSCULAR VOLUME (BEAKER) (test svqv=018) 95.6 fL 79.0-92.2 MEAN CORPUSCULAR HEMOGLOBIN (BEAKER) (test 29.9 pg 25.7-32.2 glmn=022) MEAN CORPUSCULAR HEMOGLOBIN CONC (BEAKER) (test 31.3 GM/DL 32.3-36.5 ukcx=999) RED CELL DISTRIBUTION WIDTH (BEAKER) (test 13.9 % 11.6-14.4 nnel=647) PLATELET COUNT (BEAKER) (test ypox=520) 181 K/CU MM 150-450 MEAN PLATELET VOLUME (BEAKER) (test sshb=980) 9.4 fL 9.4-12.4 NUCLEATED RED BLOOD CELLS (BEAKER) (test 0 /100 WBC 0-0 mezw=232) [id number] 01:12:00 Test Item Value Reference Range Comments PARTIAL THROMBOPLASTIN TIME (BEAKER) (test 98.7 seconds 22.5-36.0 isuv=311) TISSUE [id number] 19:09:00Surgical Pathology Report Case: [id number] Authorizing Provider: Humza Oconnor MD Collected: 01/23/2018 1710 Ordering Location: [facility] CV Recovery Room 2 Received: 01/24/2018 0943 Pathologist: Timothy Mendoza MD Specimen: Soft Tissue, Other, RIGHT VASCULAR THROMBUS/CLOT SOFT TISSUE/THROMBUS, LEG, "RIGHT VASCULAR", THROMBECTOMY- FRAGMENTS OF THROMBUS Signing Pathologist Direct Phone Line: [phone] signed by Timothy Mendoza MD on 01/26/2018 at 7:09 [id number] vascular thrombusThe specimen is received in saline labeled with the patient's information labeled "right vascular thrombus" and consists of multiple fragments of blood clot measuring 3 x 2 x 0.5 cm in aggregate. 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 CG/ pl [id number] 18:00:00 Test Item Value Reference Range Comments PARTIAL THROMBOPLASTIN TIME (BEAKER) (test 57.7 seconds 22.5-36.0 nldk=949) POCT-GLUCOSE [id number] 09:17:00 Test Item Value Reference Range Comments POC-GLUCOSE METER (BEAKER) 129 mg/dL 70-[address] [facility] [address] [facility] (test wnfi=8607) [facility] [address] [id number] 09:01:00 Test Item Value Reference Range Comments PARTIAL THROMBOPLASTIN TIME (BEAKER) (test 68.7 seconds 22.5-36.0 pahw=211) [id number] 01:45:00 Test Item Value Reference Range Comments PARTIAL THROMBOPLASTIN TIME (BEAKER) (test 45.8 seconds 22.5-36.0 myxp=791) PROTHROMBIN [id number] 01:43:00 Test Item Value Reference Range Comments PROTIME (BEAKER) (test pzsc=010) 13.7 seconds 11.7-14.7 INR (BEAKER) (test qkcz=073) 1.1 <=5.9 RECOMMENDED COUMADIN/WARFARIN INR THERAPY RANGESSTANDARD DOSE: 2.0 - 3.0 Includes: PROPHYLAXIS forvenous thrombosis, systemic embolization; TREATMENT for venous thrombosis and/or pulmonary embolus.HIGH RISK: Target INR is 2.5-3.5 for patients with mechanical heart valves.POCT-GLUCOSE [id number] 21:14:00 Test Item Value Reference Range Comments POC-GLUCOSE METER (BEAKER) 115 mg/dL 70-110 TESTED AT [address] (test ruld=8383) [place] [address] PLATELET AGGREGATION: FUNCTION [id number] 20:37:00 Test Item Value Reference Range Comments WEAK ADP RESULT(BEAKER) (test 48 % 60-91 hqyk=3682) PLATELET FUNCTION SCREEN 40-49% indicates moderate INTERP (BEAKER) (test platelet dysfunction xyzs=0244) [id number] Buzz Urbano M.D. (electonic (BEAKER) (test oxna=9969) signature) PLATELET COUNT AGG (BEAKER) 187 K/CU MM 150-450 (test gabn=0513) POCT-GLUCOSE [id number] 17:28:00 Test Item Value Reference Range Comments POC-GLUCOSE METER (BEAKER) 93 mg/dL 70-110 TESTED AT [address] (test yhnd=3162) [place] [address] POCT-GLUCOSE [id number] 12:12:00 Test Item Value Reference Range Comments POC-GLUCOSE METER (BEAKER) 108 mg/dL 70-110 TESTED AT [address] (test szoy=6268) [place] [address] [id number] 08:17:00 Test Item Value Reference Range Comments PARTIAL THROMBOPLASTIN TIME (BEAKER) (test 47.0 seconds 22.5-36.0 secp=921) While on heparin. aPTT target range 60 to 80 seconds Notify MD if aPTT is out of range.POCT-GLUCOSE [id number] 07:47:00 Test Item Value Reference Range Comments POC-GLUCOSE METER (BEAKER) 98 mg/dL 70-110 TESTED AT [address] (test tqna=0849) [place] [address] [id number] 02:53:00 Test Item Value Reference Range Comments PARTIAL THROMBOPLASTIN TIME (BEAKER) (test 71.4 seconds 22.5-36.0 pyhb=388) While on heparin. aPTT target range 60 to 80 seconds Notify MD if aPTT is out of range.PROTHROMBIN [id number] 02:51:00 Test Item Value Reference Range Comments PROTIME (BEAKER) (test gpev=451) 13.5 seconds 11.7-14.7 INR (BEAKER) (test xctj=183) 1.0 <=5.9 RECOMMENDED COUMADIN/WARFARIN INR THERAPY RANGESSTANDARD DOSE: 2.0 - 3.0 Includes: PROPHYLAXIS forvenous thrombosis, systemic embolization; TREATMENT for venous thrombosis and/or pulmonary embolus.HIGH RISK: Target INR is 2.5-3.5 for patients with mechanical heart valves.While on heparin. aPTT target range 60 to 80 seconds Notify MD if aPTT is out of range.BASIC METABOLIC [id number] 02:48:00 Test Item Value Reference Range Comments SODIUM (BEAKER) (test 133 meq/L 136-145 ksqp=446) POTASSIUM (BEAKER) (test 3.7 meq/L 3.5-5.1 dykd=671) CHLORIDE (BEAKER) (test 102 meq/L 98-107 ftqi=145) CO2 (BEAKER) (test 24 meq/L 22-29 qujj=857) BLOOD UREA NITROGEN 19 mg/dL 7-21 (BEAKER) (test oyld=778) CREATININE (BEAKER) (test 1.62 mg/dL 0.57-1.25 lamy=360) GLUCOSE RANDOM (BEAKER) 106 mg/dL 70-105 (test pwyc=165) CALCIUM (BEAKER) (test 7.9 mg/dL 8.4-10.2 ntxl=218) EGFR (BEAKER) (test 43 mL/min/1.73 sq m ESTIMATED GFR IS NOT tvdc=2256) ACCURATE CREATININE CLEARANCE IN PREDICTING GLOMERULAR FILTRATION RATE. ESTIMATED GFR IS NOT APPLICABLE FOR DIALYSIS PATIENTS. [id number] 02:42:00 Test Item Value Reference Range Comments MAGNESIUM (BEAKER) (test auqk=151) 2.1 mg/dL 1.6-2.6 CBC (HEMOGRAM ONLY)2018-01-25 02:21:00 Test Item Value Reference Range Comments WHITE BLOOD CELL COUNT (BEAKER) (test qycj=820) 10.8 K/ L 3.5-10.5 RED BLOOD CELL COUNT (BEAKER) (test vrgj=820) 3.34 M/ L 4.63-6.08 HEMOGLOBIN (BEAKER) (test zkex=569) 10.0 GM/DL 13.7-17.5 HEMATOCRIT (BEAKER) (test koqt=373) 31.1 % 40.1-51.0 MEAN CORPUSCULAR VOLUME (BEAKER) (test xaco=602) 93.1 fL 79.0-92.2 MEAN CORPUSCULAR HEMOGLOBIN (BEAKER) (test 29.9 pg 25.7-32.2 npvq=041) MEAN CORPUSCULAR HEMOGLOBIN CONC (BEAKER) (test 32.2 GM/DL 32.3-36.5 zodf=234) RED CELL DISTRIBUTION WIDTH (BEAKER) (test 14.0 % 11.6-14.4 uhyl=036) PLATELET COUNT (BEAKER) (test fmzu=391) 186 K/CU MM 150-450 MEAN PLATELET VOLUME (BEAKER) (test vypd=117) 9.4 fL 9.4-12.4 NUCLEATED RED BLOOD CELLS (BEAKER) (test 0 /100 WBC 0-0 lprr=705) POCT-GLUCOSE [id number] 21:10:00 Test Item Value Reference Range Comments POC-GLUCOSE METER (BEAKER) 124 mg/dL 70-110 TESTED AT [address] (test ohuc=4749) [facility] [address] [id number] 20:38:00 Test Item Value Reference Range Comments PARTIAL THROMBOPLASTIN TIME (BEAKER) (test 48.6 seconds 22.5-36.0 tcrk=224) PLATELET AGGREGATION: FUNCTION [id number] 18:24:00 Test Item Value Reference Range Comments WEAK ADP RESULT(BEAKER) (test 33 % 60-91 xozy=3709) PLATELET FUNCTION SCREEN 0-39% indicates marked platelet INTERP (BEAKER) (test dysfunction prtd=6922) [id number] Buzz Urbano M.D. (electonic (BEAKER) (test loti=5499) signature) PLATELET COUNT AGG (BEAKER) 242 K/CU MM 150-450 (test oosh=2818) PLATELET AGGREGATION: FUNCTION [id number] 18:22:00 Test Item Value Reference Range Comments WEAK ADP RESULT(BEAKER) (test 25 % 60-91 mgrg=3793) PLATELET FUNCTION SCREEN 0-39% indicates marked platelet INTERP (BEAKER) (test dysfunction qeaf=1796) [id number] Buzz Urbano M.D. (electonic (BEAKER) (test kses=5038) signature) PLATELET COUNT AGG (BEAKER) 251 K/CU MM 150-450 (test cgco=9851) [id number] 16:16:00 Test Item Value Reference Range Comments PARTIAL THROMBOPLASTIN TIME (BEAKER) (test 81.3 seconds 22.5-36.0 nkgq=600) [id number] 15:37:00 Test Item Value Reference Range Comments PARTIAL THROMBOPLASTIN TIME (BEAKER) (test 38.5 seconds 22.5-36.0 pafu=762) While on heparin. aPTT target range 50 to 80 seconds Notify MD if aPTT is out of range.HEMOGLOBIN [id number] 12:50:00 Test Item Value Reference Range Comments HEMOGLOBIN A1C (BEAKER) (test eczz=061) 5.5 % 4.3-6.1 POCT-GLUCOSE [id number] 11:33:00 Test Item Value Reference Range Comments POC-GLUCOSE METER (BEAKER) 100 mg/dL 70-[address] [facility] [address] [facility] (test fook=5279) [facility] [address] [id number] 08:35:00 Test Item Value Reference Range Comments PARTIAL THROMBOPLASTIN TIME (BEAKER) (test 44.9 seconds 22.5-36.0 snbl=066) [id number] 04:15:00 Test Item Value Reference Range Comments MAGNESIUM (BEAKER) (test ebyv=867) 1.9 mg/dL 1.6-2.6 BASIC METABOLIC [id number] 04:15:00 Test Item Value Reference Range Comments SODIUM (BEAKER) (test 136 meq/L 136-145 vjzu=061) POTASSIUM (BEAKER) (test 4.4 meq/L 3.5-5.1 uhip=349) CHLORIDE (BEAKER) (test 107 meq/L 98-107 hhnj=960) CO2 (BEAKER) (test 22 meq/L 22-29 prby=390) BLOOD UREA NITROGEN 16 mg/dL 7-21 (BEAKER) (test sohw=146) CREATININE (BEAKER) (test 1.54 mg/dL 0.57-1.25 jwkf=407) GLUCOSE RANDOM (BEAKER) 129 mg/dL 70-105 (test ihdd=516) CALCIUM (BEAKER) (test 8.1 mg/dL 8.4-10.2 krrx=336) EGFR (BEAKER) (test 46 mL/min/1.73 sq m ESTIMATED GFR IS NOT pxaj=3812) ACCURATE CREATININE CLEARANCE IN PREDICTING GLOMERULAR FILTRATION RATE. ESTIMATED GFR IS NOT APPLICABLE FOR DIALYSIS PATIENTS. [id number] 04:12:00 Test Item Value Reference Range Comments PARTIAL THROMBOPLASTIN TIME (BEAKER) (test 65.1 seconds 22.5-36.0 hdkx=032) POCT-GLUCOSE [id number] 04:11:00 Test Item Value Reference Range Comments POC-GLUCOSE METER (BEAKER) 128 mg/dL 70-[address] [facility] [address] [facility] (test nwte=5873) [facility] [address] PROTHROMBIN [id number] 04:11:00 Test Item Value Reference Range Comments PROTIME (BEAKER) (test aqxc=971) 14.8 seconds 11.7-14.7 INR (BEAKER) (test epuc=091) 1.2 <=5.9 RECOMMENDED COUMADIN/WARFARIN INR THERAPY RANGESSTANDARD DOSE: 2.0 - 3.0 Includes: PROPHYLAXIS forvenous thrombosis, systemic embolization; TREATMENT for venous thrombosis and/or pulmonary embolus.HIGH RISK: Target INR is 2.5-3.5 for patients with mechanical heart valves.CBC (HEMOGRAM ONLY)2018-01-24 03:59:00 Test Item Value Reference Range Comments WHITE BLOOD CELL COUNT (BEAKER) (test unqg=709) 15.9 K/ L 3.5-10.5 RED BLOOD CELL COUNT (BEAKER) (test bznb=165) 3.85 M/ L 4.63-6.08 HEMOGLOBIN (BEAKER) (test ntgi=386) 11.7 GM/DL 13.7-17.5 HEMATOCRIT (BEAKER) (test bmzc=926) 35.7 % 40.1-51.0 MEAN CORPUSCULAR VOLUME (BEAKER) (test gjwy=133) 92.7 fL 79.0-92.2 MEAN CORPUSCULAR HEMOGLOBIN (BEAKER) (test 30.4 pg 25.7-32.2 vgbz=081) MEAN CORPUSCULAR HEMOGLOBIN CONC (BEAKER) (test 32.8 GM/DL 32.3-36.5 uswo=794) RED CELL DISTRIBUTION WIDTH (BEAKER) (test 13.7 % 11.6-14.4 lffy=377) PLATELET COUNT (BEAKER) (test wdnp=421) 250 K/CU MM 150-450 MEAN PLATELET VOLUME (BEAKER) (test holv=162) 9.8 fL 9.4-12.4 NUCLEATED RED BLOOD CELLS (BEAKER) (test 0 /100 WBC 0-0 buen=828) RAD, CHEST, 1 VIEW, NON [id number] 00:09:00Reason for exam:->central line placement in the [...] effusion versus pleural scarring. Signed: Bryan Christianson MDRharjinder Verified Date/Time: 01/24/2018 00:09:20 Reading Location: [address] Consult Reading Room [id number] 23:29:00 Test Item Value Reference Range Comments PARTIAL THROMBOPLASTIN TIME (BEAKER) (test > seconds 22.5-36.0 qdjf=960) POCT-GLUCOSE [id number] 23:00:00 Test Item Value Reference Range Comments POC-GLUCOSE METER (BEAKER) 142 mg/dL 70-[address] [facility] [address] (test mhzf=6555) [facility] [address] [id number] 22:22:00 Test Item Value Reference Range Comments MAGNESIUM (BEAKER) (test sdfv=784) 1.9 mg/dL 1.6-2.6 CALCIUM, [id number] 22:10:00 Test Item Value Reference Range Comments CALCIUM IONIZED (BEAKER) (test jfye=519) 1.04 mmol/L 1.12-1.27 PH, BLOOD (BEAKER) (test vxun=6404) 7.41 HEPATITIS B SURFACE [id number] 19:32:00 Test Item Value Reference Range Comments HEPATITIS B SURFACE ANTIGEN (2) (BEAKER) (test Nonreactive Nonreactive rdvr=3378) HIV-1 ANTIGEN WITH HIV-1/2 [id number] 19:32:00 Test Item Value Reference Range Comments HIV-1 ANTIGEN WITH HIV 1\\T\\2 ANTIBODY (2) Nonreactive Nonreactive (BEAKER) (test xgkq=6636) [id number] 19:23:00 Test Item Value Reference Range Comments PARTIAL THROMBOPLASTIN TIME (BEAKER) (test > seconds 22.5-36.0 dckt=666) BASIC METABOLIC [id number] 19:01:00 Test Item Value Reference Range Comments SODIUM (BEAKER) (test 136 meq/L 136-145 rzan=627) POTASSIUM (BEAKER) (test 4.6 meq/L 3.5-5.1 iasp=696) CHLORIDE (BEAKER) (test 109 meq/L 98-107 oehn=897) CO2 (BEAKER) (test 19 meq/L 22-29 knnq=188) BLOOD UREA NITROGEN 14 mg/dL 7-21 (BEAKER) (test uhmz=486) CREATININE (BEAKER) (test 1.75 mg/dL 0.57-1.25 tbqx=311) GLUCOSE RANDOM (BEAKER) 154 mg/dL 70-105 (test tfnp=867) CALCIUM (BEAKER) (test 8.1 mg/dL 8.4-10.2 pwmn=969) EGFR (BEAKER) (test 40 mL/min/1.73 sq m ESTIMATED GFR IS NOT covq=1047) ACCURATE CREATININE CLEARANCE IN PREDICTING GLOMERULAR FILTRATION RATE. ESTIMATED GFR IS NOT APPLICABLE FOR DIALYSIS PATIENTS. CBC (HEMOGRAM ONLY)2018-01-23 18:45:00 Test Item Value Reference Range Comments WHITE BLOOD CELL COUNT (BEAKER) (test ifli=946) 15.9 K/ L 3.5-10.5 RED BLOOD CELL COUNT (BEAKER) (test vevl=673) 4.00 M/ L 4.63-6.08 HEMOGLOBIN (BEAKER) (test mcjm=056) 11.9 GM/DL 13.7-17.5 HEMATOCRIT (BEAKER) (test jhid=440) 38.0 % 40.1-51.0 MEAN CORPUSCULAR VOLUME (BEAKER) (test fvmr=123) 95.0 fL 79.0-92.2 MEAN CORPUSCULAR HEMOGLOBIN (BEAKER) (test 29.8 pg 25.7-32.2 zoua=961) MEAN CORPUSCULAR HEMOGLOBIN CONC (BEAKER) (test 31.3 GM/DL 32.3-36.5 aiyx=605) RED CELL DISTRIBUTION WIDTH (BEAKER) (test 13.7 % 11.6-14.4 xouy=431) PLATELET COUNT (BEAKER) (test rmer=164) 253 K/CU MM 150-450 MEAN PLATELET VOLUME (BEAKER) (test qzny=967) 9.7 fL 9.4-12.4 NUCLEATED RED BLOOD CELLS (BEAKER) (test 0 /100 WBC 0-0 nvuc=235) BLOOD GAS, [id number] 18:42:00 Test Item Value Reference Range Comments PH ARTERIAL (BEAKER) (test fxrd=132) 7.34 7.35-7.45 PCO2 ARTERIAL (BEAKER) (test wqoo=398) 38 mmHg 35-45 PO2 ARTERIAL (BEAKER) (test mmvt=637) 92 mmHg 80-90 O2 SATURATION ARTERIAL (BEAKER) (test uabw=037) 97.4 % 96.0-97.0 HCO3 ARTERIAL (BEAKER) (test fvzd=585) 21 mmol/L 21-29 BASE EXCESS ARTERIAL (BEAKER) (test suss=332) -5.3 mmol/L -2.0-3.0 PATIENT TEMPERATURE (BEAKER) (test fbvy=1406) 34.7 C FIO2 (BEAKER) (test wvba=8212) 28.0 % GLUCOSE-STAT [id number] 18:42:00 Test Item Value Reference Range Comments GLUCOSE RANDOM (BEAKER) (test iwra=008) 149 mg/dL 70-110 POTASSIUM-STAT [id number] 18:42:00 Test Item Value Reference Range Comments POTASSIUM (BEAKER) (test fyik=157) 4.5 meq/L 3.6-5.5 [id number] 17:53:00 Test Item Value Reference Range Comments ACTIVATED CLOTTING TIME [address] [facility] [address] (BEAKER) (test xysh=746) [place] [address] [id number] 17:53:00 Test Item Value Reference Range Comments ACTIVATED CLOTTING TIME [address] [facility] [address] (BEAKER) (test ueqm=184) [place] [address] [id number] 17:53:00 Test Item Value Reference Range Comments ACTIVATED CLOTTING TIME [address] [facility] [address] (BEAKER) (test smck=282) [place] [address] [id number] 17:53:00 Test Item Value Reference Range Comments ACTIVATED CLOTTING TIME [address] [facility] [address] (BEAKER) (test uqso=172) [place] [address] BASIC METABOLIC [id number] 16:20:00 Test Item Value Reference Range Comments SODIUM (BEAKER) (test 136 meq/L 136-145 bhxq=313) POTASSIUM (BEAKER) (test 3.9 meq/L 3.5-5.1 hrnb=223) CHLORIDE (BEAKER) (test 107 meq/L 98-107 ufso=237) CO2 (BEAKER) (test 22 meq/L 22-29 gbdu=612) BLOOD UREA NITROGEN 15 mg/dL 7-21 (BEAKER) (test shzu=059) CREATININE (BEAKER) (test 1.63 mg/dL 0.57-1.25 rsda=009) GLUCOSE RANDOM (BEAKER) 103 mg/dL 70-105 (test sswx=308) CALCIUM (BEAKER) (test 8.4 mg/dL 8.4-10.2 mrom=602) EGFR (BEAKER) (test 43 mL/min/1.73 sq m ESTIMATED GFR IS NOT uhtd=2915) ACCURATE CREATININE CLEARANCE IN PREDICTING GLOMERULAR FILTRATION RATE. ESTIMATED GFR IS NOT APPLICABLE FOR DIALYSIS PATIENTS. [id number] 15:46:00 Test Item Value Reference Range Comments PARTIAL THROMBOPLASTIN TIME (BEAKER) (test 24.7 seconds 22.5-36.0 zchp=003) PROTHROMBIN [id number] 15:45:00 Test Item Value Reference Range Comments PROTIME (BEAKER) (test lokt=405) 14.0 seconds 11.7-14.7 INR (BEAKER) (test qddj=387) 1.1 <=5.9 RECOMMENDED COUMADIN/WARFARIN INR THERAPY RANGESSTANDARD DOSE: 2.0 - 3.0 Includes: PROPHYLAXIS forvenous thrombosis, systemic embolization; TREATMENT for venous thrombosis and/or pulmonary embolus.HIGH RISK: Target INR is 2.5-3.5 for patients with mechanical heart valves.CBC W/PLT COUNT & AUTO [id number] 15:41:00 Test Item Value Reference Range Comments WHITE BLOOD CELL COUNT (BEAKER) (test tvcg=779) 14.3 K/ L 3.5-10.5 RED BLOOD CELL COUNT (BEAKER) (test nawi=613) 4.32 M/ L 4.63-6.08 HEMOGLOBIN (BEAKER) (test tdhc=597) 13.0 GM/DL 13.7-17.5 HEMATOCRIT (BEAKER) (test mbjl=296) 40.7 % 40.1-51.0 MEAN CORPUSCULAR VOLUME (BEAKER) (test gkbe=537) 94.2 fL 79.0-92.2 MEAN CORPUSCULAR HEMOGLOBIN (BEAKER) (test 30.1 pg 25.7-32.2 svfe=900) MEAN CORPUSCULAR HEMOGLOBIN CONC (BEAKER) (test 31.9 GM/DL 32.3-36.5 vjqu=963) RED CELL DISTRIBUTION WIDTH (BEAKER) (test 13.6 % 11.6-14.4 wpdd=936) PLATELET COUNT (BEAKER) (test gyrm=131) 240 K/CU MM 150-450 MEAN PLATELET VOLUME (BEAKER) (test fotp=593) 9.6 fL 9.4-12.4 NUCLEATED RED BLOOD CELLS (BEAKER) (test 0 /100 WBC 0-0 omvr=501) NEUTROPHILS RELATIVE PERCENT (BEAKER) (test 83 % tpdl=864) LYMPHOCYTES RELATIVE PERCENT (BEAKER) (test 11 % johm=845) MONOCYTES RELATIVE PERCENT (BEAKER) (test 5 % jxpk=328) EOSINOPHILS RELATIVE PERCENT (BEAKER) (test 0 % znpj=349) BASOPHILS RELATIVE PERCENT (BEAKER) (test 0 % ffre=839) NEUTROPHILS ABSOLUTE COUNT (BEAKER) (test 11.79 K/ L 1.78-5.38 adtt=844) LYMPHOCYTES ABSOLUTE COUNT (BEAKER) (test 1.57 K/ L 1.32-3.57 pvxm=065) MONOCYTES ABSOLUTE COUNT (BEAKER) (test 0.75 K/ L 0.30-0.82 nanq=802) EOSINOPHILS ABSOLUTE COUNT (BEAKER) (test 0.01 K/ L 0.04-0.54 idkx=978) BASOPHILS ABSOLUTE COUNT (BEAKER) (test 0.05 K/ L 0.01-0.08 ilot=023) IMMATURE GRANULOCYTES-RELATIVE PERCENT (BEAKER) 1 % 0-1 (test gpjf=9874) TISSUE [id number] 14:59:00Surgical Pathology Report Case: [id number] Authorizing Provider: Humza Oconnor MD Collected: 11/17/2017 0937 Ordering Location: [facility] CV Recovery Room 2 Received: 11/17/2017 1003 Pathologist: Vince Tobias MD Specimen: Plaque, right femoral plaque ARTERY, RIGHT FEMORAL, THROMBECTOMY :FIBRIN THROMBUSFIBROVASCULAR AND FIBROADIPOSE TISSUE Signing Pathologist Direct Phone Line: [phone] signed by Vince Tobias MD on at 2:59 [id number] femoral plaqueReceived in saline labeled "plaque", description "right femoral plaque" arefour irregular, caban-white to yellow-rose, rubbery fragments of plaque-like material measuring 3.0 x 2.5 x 0.3 cm in aggregate. sectioning reveals no discrete masses. Rail Operations Controller sections are submitted in cassette A1. DB/ew PerformedBASI METABOLIC [id number] 06: 17:00 Test Item Value Reference Range Comments SODIUM (BEAKER) (test 137 meq/L 136-145 bilp=830) POTASSIUM (BEAKER) (test 4.0 meq/L 3.5-5.1 xvft=555) CHLORIDE (BEAKER) (test 108 meq/L 98-107 dpmd=364) CO2 (BEAKER) (test 22 meq/L 22-29 goaq=983) BLOOD UREA NITROGEN 19 mg/dL 7-21 (BEAKER) (test mdbz=935) CREATININE (BEAKER) (test 1.54 mg/dL 0.57-1.25 haan=405) GLUCOSE RANDOM (BEAKER) 99 mg/dL 70-105 (test qrup=986) CALCIUM (BEAKER) (test 8.7 mg/dL 8.4-10.2 dhzz=538) EGFR (BEAKER) (test 46 mL/min/1.73 sq m ESTIMATED GFR IS NOT qapi=8721) ACCURATE CREATININE CLEARANCE IN PREDICTING GLOMERULAR FILTRATION RATE. ESTIMATED GFR IS NOT APPLICABLE FOR DIALYSIS PATIENTS. CBC (HEMOGRAM ONLY)2017-11-21 05:21:00 Test Item Value Reference Range Comments WHITE BLOOD CELL COUNT (BEAKER) (test gbhj=441) 8.6 K/ L 3.5-10.5 RED BLOOD CELL COUNT (BEAKER) (test nsna=589) 4.33 M/ L 4.63-6.08 HEMOGLOBIN (BEAKER) (test zeyt=640) 14.1 GM/DL 13.7-17.5 HEMATOCRIT (BEAKER) (test iwsg=151) 43.3 % 40.1-51.0 MEAN CORPUSCULAR VOLUME (BEAKER) (test zmgs=779) 100.0 fL 79.0-92.2 MEAN CORPUSCULAR HEMOGLOBIN (BEAKER) (test 32.6 pg 25.7-32.2 rrgn=751) MEAN CORPUSCULAR HEMOGLOBIN CONC (BEAKER) (test 32.6 GM/DL 32.3-36.5 rytg=284) RED CELL DISTRIBUTION WIDTH (BEAKER) (test 15.2 % 11.6-14.4 xjpi=014) PLATELET COUNT (BEAKER) (test psgk=101) 173 K/CU MM 150-450 MEAN PLATELET VOLUME (BEAKER) (test crhd=181) 9.7 fL 9.4-12.4 NUCLEATED RED BLOOD CELLS (BEAKER) (test 0 /100 WBC 0-0 tmax=173) BASIC METABOLIC [id number] 10:29:00 Test Item Value Reference Range Comments SODIUM (BEAKER) (test 138 meq/L 136-145 fnmb=946) POTASSIUM (BEAKER) (test 4.0 meq/L 3.5-5.1 zkej=410) CHLORIDE (BEAKER) (test 109 meq/L 98-107 hkbd=743) CO2 (BEAKER) (test 21 meq/L 22-29 dihb=018) BLOOD UREA NITROGEN 15 mg/dL 7-21 (BEAKER) (test jvnb=829) CREATININE (BEAKER) (test 1.60 mg/dL 0.57-1.25 gjzk=885) GLUCOSE RANDOM (BEAKER) 101 mg/dL 70-105 (test iacv=385) CALCIUM (BEAKER) (test 8.7 mg/dL 8.4-10.2 elca=706) EGFR (BEAKER) (test 44 mL/min/1.73 sq m ESTIMATED GFR IS NOT ckeu=6858) ACCURATE CREATININE CLEARANCE IN PREDICTING GLOMERULAR FILTRATION RATE. ESTIMATED GFR IS NOT APPLICABLE FOR DIALYSIS PATIENTS. LIPID [id number] 04:26:00 Test Item Value Reference Range Comments TRIGLYCERIDES (BEAKER) (test xchd=354) 119 mg/dL CHOLESTEROL (BEAKER) (test nkux=985) 123 mg/dL HDL CHOLESTEROL (BEAKER) (test adto=129) 26 mg/dL LDL CHOLESTEROL CALCULATED (BEAKER) (test 73 mg/dL fpqc=322) Triglyceride Reference Range: Low Risk <150 Borderline 150- 199 High Risk 200-499 Very High Risk >=500Cholesterol Reference Range: Low Risk <200 Borderline 200-239 High Risk > 240HDL Cholesterol Reference Range: Low Risk >=60 High Risk <40LDL Cholesterol Reference Range: Optimal <100 Near Optimal 100-129 Borderline 130-159 High 160-189 Very High >=[id number] 05:39:00 Test Item Value Reference Range Comments MAGNESIUM (BEAKER) (test kwux=534) 2.0 mg/dL 1.6-2.6 BASIC METABOLIC [id number] 05:39:00 Test Item Value Reference Range Comments SODIUM (BEAKER) (test 137 meq/L 136-145 sgsl=683) POTASSIUM (BEAKER) (test 4.0 meq/L 3.5-5.1 jnst=286) CHLORIDE (BEAKER) (test 109 meq/L 98-107 hjpg=874) CO2 (BEAKER) (test 22 meq/L 22-29 djlq=493) BLOOD UREA NITROGEN 16 mg/dL 7-21 (BEAKER) (test wdmd=503) CREATININE (BEAKER) (test 1.76 mg/dL 0.57-1.25 muiz=709) GLUCOSE RANDOM (BEAKER) 101 mg/dL 70-105 (test rlza=204) CALCIUM (BEAKER) (test 8.5 mg/dL 8.4-10.2 bnqt=825) EGFR (BEAKER) (test 39 mL/min/1.73 sq m ESTIMATED GFR IS NOT ajcs=1983) ACCURATE CREATININE CLEARANCE IN PREDICTING GLOMERULAR FILTRATION RATE. ESTIMATED GFR IS NOT APPLICABLE FOR DIALYSIS PATIENTS. CBC W/PLT COUNT & AUTO [id number] 05:04:00 Test Item Value Reference Range Comments WHITE BLOOD CELL COUNT (BEAKER) (test igqy=783) 8.2 K/ L 3.5-10.5 RED BLOOD CELL COUNT (BEAKER) (test xmuq=370) 4.08 M/ L 4.63-6.08 HEMOGLOBIN (BEAKER) (test lmyj=192) 13.1 GM/DL 13.7-17.5 HEMATOCRIT (BEAKER) (test dexm=074) 40.2 % 40.1-51.0 MEAN CORPUSCULAR VOLUME (BEAKER) (test jbwh=859) 98.5 fL 79.0-92.2 MEAN CORPUSCULAR HEMOGLOBIN (BEAKER) (test 32.1 pg 25.7-32.2 dtjh=080) MEAN CORPUSCULAR HEMOGLOBIN CONC (BEAKER) (test 32.6 GM/DL 32.3-36.5 bbwu=507) RED CELL DISTRIBUTION WIDTH (BEAKER) (test 15.0 % 11.6-14.4 isgc=536) PLATELET COUNT (BEAKER) (test hyao=920) 153 K/CU MM 150-450 MEAN PLATELET VOLUME (BEAKER) (test zois=544) 9.7 fL 9.4-12.4 NUCLEATED RED BLOOD CELLS (BEAKER) (test 0 /100 WBC 0-0 hozj=854) NEUTROPHILS RELATIVE PERCENT (BEAKER) (test 68 % qjbl=621) LYMPHOCYTES RELATIVE PERCENT (BEAKER) (test 19 % uzrk=697) MONOCYTES RELATIVE PERCENT (BEAKER) (test 9 % zzbn=206) EOSINOPHILS RELATIVE PERCENT (BEAKER) (test 4 % qiqq=340) BASOPHILS RELATIVE PERCENT (BEAKER) (test 0 % segc=494) NEUTROPHILS ABSOLUTE COUNT (BEAKER) (test 5.57 K/ L 1.78-5.38 ppes=245) LYMPHOCYTES ABSOLUTE COUNT (BEAKER) (test 1.60 K/ L 1.32-3.57 xpcl=112) MONOCYTES ABSOLUTE COUNT (BEAKER) (test 0.70 K/ L 0.30-0.82 imdn=942) EOSINOPHILS ABSOLUTE COUNT (BEAKER) (test 0.30 K/ L 0.04-0.54 evdq=622) BASOPHILS ABSOLUTE COUNT (BEAKER) (test 0.03 K/ L 0.01-0.08 dtcv=188) IMMATURE GRANULOCYTES-RELATIVE PERCENT (BEAKER) 1 % 0-1 (test bwfq=5953) [id number] 07:37:00 Test Item Value Reference Range Comments MAGNESIUM (BEAKER) (test wafi=716) 2.0 mg/dL 1.6-2.6 BASIC METABOLIC [id number] 07:37:00 Test Item Value Reference Range Comments SODIUM (BEAKER) (test 136 meq/L 136-145 hfqk=644) POTASSIUM (BEAKER) (test 4.4 meq/L 3.5-5.1 vbgz=461) CHLORIDE (BEAKER) (test 106 meq/L 98-107 tdze=587) CO2 (BEAKER) (test 22 meq/L 22-29 jsjz=385) BLOOD UREA NITROGEN 15 mg/dL 7-21 (BEAKER) (test vovs=154) CREATININE (BEAKER) (test 1.59 mg/dL 0.57-1.25 anjc=752) GLUCOSE RANDOM (BEAKER) 99 mg/dL 70-105 (test aqwg=014) CALCIUM (BEAKER) (test 8.7 mg/dL 8.4-10.2 uoik=529) EGFR (BEAKER) (test 44 mL/min/1.73 sq m ESTIMATED GFR IS NOT pxut=2149) ACCURATE CREATININE CLEARANCE IN PREDICTING GLOMERULAR FILTRATION RATE. ESTIMATED GFR IS NOT APPLICABLE FOR DIALYSIS PATIENTS. BASIC METABOLIC [id number] 11:14:00 Test Item Value Reference Range Comments SODIUM (BEAKER) (test 139 meq/L 136-145 bwav=835) POTASSIUM (BEAKER) (test 4.5 meq/L 3.5-5.1 pkiw=084) CHLORIDE (BEAKER) (test 111 meq/L 98-107 yrrn=980) CO2 (BEAKER) (test 21 meq/L 22-29 tvbo=415) BLOOD UREA NITROGEN 12 mg/dL 7-21 (BEAKER) (test vqwe=149) CREATININE (BEAKER) (test 1.58 mg/dL 0.57-1.25 mzni=828) GLUCOSE RANDOM (BEAKER) 103 mg/dL 70-105 (test sxiu=296) CALCIUM (BEAKER) (test 9.2 mg/dL 8.4-10.2 ipam=791) EGFR (BEAKER) (test 45 mL/min/1.73 sq m ESTIMATED GFR IS NOT kfzk=8432) ACCURATE CREATININE CLEARANCE IN PREDICTING GLOMERULAR FILTRATION RATE. ESTIMATED GFR IS NOT APPLICABLE FOR DIALYSIS PATIENTS. CBC W/PLT COUNT & AUTO [id number] 10:50:00 Test Item Value Reference Range Comments WHITE BLOOD CELL COUNT (BEAKER) (test gjsw=359) 8.7 K/ L 3.5-10.5 RED BLOOD CELL COUNT (BEAKER) (test qnlr=646) 4.12 M/ L 4.63-6.08 HEMOGLOBIN (BEAKER) (test ezxt=793) 13.4 GM/DL 13.7-17.5 HEMATOCRIT (BEAKER) (test badm=268) 41.5 % 40.1-51.0 MEAN CORPUSCULAR VOLUME (BEAKER) (test ozgs=683) 100.7 fL 79.0-92.2 MEAN CORPUSCULAR HEMOGLOBIN (BEAKER) (test 32.5 pg 25.7-32.2 fngr=177) MEAN CORPUSCULAR HEMOGLOBIN CONC (BEAKER) (test 32.3 GM/DL 32.3-36.5 mjzj=005) RED CELL DISTRIBUTION WIDTH (BEAKER) (test 15.1 % 11.6-14.4 xpja=327) PLATELET COUNT (BEAKER) (test best=231) 231 K/CU MM 150-450 MEAN PLATELET VOLUME (BEAKER) (test tkvd=845) 8.9 fL 9.4-12.4 NUCLEATED RED BLOOD CELLS (BEAKER) (test 0 /100 WBC 0-0 amui=823) NEUTROPHILS RELATIVE PERCENT (BEAKER) (test 70 % kvqx=558) LYMPHOCYTES RELATIVE PERCENT (BEAKER) (test 21 % iaip=701) MONOCYTES RELATIVE PERCENT (BEAKER) (test 6 % zkkw=465) EOSINOPHILS RELATIVE PERCENT (BEAKER) (test 3 % njxk=427) BASOPHILS RELATIVE PERCENT (BEAKER) (test 0 % blpv=006) NEUTROPHILS ABSOLUTE COUNT (BEAKER) (test 6.04 K/ L 1.78-5.38 lgtp=663) LYMPHOCYTES ABSOLUTE COUNT (BEAKER) (test 1.80 K/ L 1.32-3.57 jnoj=027) MONOCYTES ABSOLUTE COUNT (BEAKER) (test 0.51 K/ L 0.30-0.82 cqhm=926) EOSINOPHILS ABSOLUTE COUNT (BEAKER) (test 0.24 K/ L 0.04-0.54 mxux=794) BASOPHILS ABSOLUTE COUNT (BEAKER) (test 0.02 K/ L 0.01-0.08 tqfr=058) IMMATURE GRANULOCYTES-RELATIVE PERCENT (BEAKER) 1 % 0-1 (test artp=0419) GLUCOSE-STAT [id number] 10:35:00 Test Item Value Reference Range Comments GLUCOSE RANDOM (BEAKER) (test pshq=905) 99 mg/dL 70-110 Only if arterial line in place and/or patient on ventilatorSODIUM NA-STAT [id number] 10:35:00 Test Item Value Reference Range Comments SODIUM (BEAKER) (test edna=879) 137 meq/L 135-148 Only if arterial line in place and/or patient on ventilatorPOTASSIUM-STAT [id number] 10:35:00 Test Item Value Reference Range Comments POTASSIUM (BEAKER) (test pifn=907) 4.4 meq/L 3.6-5.5 Only if arterial line in place and/or patient on ventilatorHGB/HCT (H&H) - STAT [id number] 10:35:00 Test Item Value Reference Range Comments HEMOGLOBIN (BEAKER) (test cvns=964) 14.2 g/dL 13.0-16.8 HEMATOCRIT (BEAKER) (test awgh=937) 42.0 % 40.0-50.0 Only if arterial line in place and/or patient on ventilatorBLOOD GAS, [id number] 10:35:00 Test Item Value Reference Range Comments PH ARTERIAL (BEAKER) (test sifc=738) 7.37 7.35-7.45 PCO2 ARTERIAL (BEAKER) (test mbdl=278) 37 mmHg 35-45 PO2 ARTERIAL (BEAKER) (test gdor=593) 132 mmHg 80-90 O2 SATURATION ARTERIAL (BEAKER) (test oqou=835) 98.6 % 96.0-97.0 HCO3 ARTERIAL (BEAKER) (test dxrk=642) 21 mmol/L 21-29 BASE EXCESS ARTERIAL (BEAKER) (test eanv=017) -4.0 mmol/L -2.0-3.0 PATIENT TEMPERATURE (BEAKER) (test bdsu=7352) 36.4 C FIO2 (BEAKER) (test vpfr=4837) 48.0 % Only if arterial line in place and/or patient on ventilatorBLOOD GAS, [id number] 09:03:00 Test Item Value Reference Range Comments PH ARTERIAL (BEAKER) (test elzw=382) 7.36 7.35-7.45 PCO2 ARTERIAL (BEAKER) (test wwdn=107) 40 mmHg 35-45 PO2 ARTERIAL (BEAKER) (test oauw=969) 153 mmHg 80-90 O2 SATURATION ARTERIAL (BEAKER) (test fioz=405) 99.0 % 96.0-97.0 HCO3 ARTERIAL (BEAKER) (test upga=781) 23 mmol/L 21-29 BASE EXCESS ARTERIAL (BEAKER) (test oclp=137) -3.1 mmol/L -2.0-3.0 PATIENT TEMPERATURE (BEAKER) (test avza=9439) 35.3 C FIO2 (BEAKER) (test epnf=2333) 60.0 % CALCIUM, [id number] 09:03:00 Test Item Value Reference Range Comments CALCIUM IONIZED (BEAKER) (test hwna=987) 1.06 mmol/L 1.12-1.27 PH, BLOOD (BEAKER) (test wvtm=2483) 7.34 GLUCOSE-STAT [id number] 09:02:00 Test Item Value Reference Range Comments GLUCOSE RANDOM (BEAKER) (test pyuz=511) 106 mg/dL 70-110 SODIUM NA-STAT [id number] 09:02:00 Test Item Value Reference Range Comments SODIUM (BEAKER) (test cdog=133) 136 meq/L 135-148 POTASSIUM-STAT [id number] 09:02:00 Test Item Value Reference Range Comments POTASSIUM (BEAKER) (test recb=658) 4.2 meq/L 3.6-5.5 HGB/HCT (H&H) - STAT [id number] 09:02:00 Test Item Value Reference Range Comments HEMOGLOBIN (BEAKER) (test jyja=747) 13.5 g/dL 13.0-16.8 HEMATOCRIT (BEAKER) (test wvhz=979) 40.0 % 40.0-50.0 URINALYSIS W/ [id number] 07:46:00 Test Item Value Reference Range Comments COLOR (BEAKER) (test lzbo=886) Light Yellow CLARITY (BEAKER) (test caiz=951) Clear SPECIFIC GRAVITY UA (BEAKER) (test tpdj=013) 1.009 1.001-1.035 PH UA (BEAKER) (test qxdr=789) 6.0 5.0-8.0 PROTEIN UA (BEAKER) (test uykp=034) Negative Negative GLUCOSE UA (BEAKER) (test wcdq=422) Negative Negative KETONES UA (BEAKER) (test yclo=724) Negative Negative BILIRUBIN UA (BEAKER) (test zrif=888) Negative Negative BLOOD UA (BEAKER) (test eqhn=883) Negative Negative NITRITE UA (BEAKER) (test gemc=719) Negative Negative LEUKOCYTE ESTERASE UA (BEAKER) (test rbum=156) Negative Negative UROBILINOGEN UA (BEAKER) (test jeft=885) 0.2 mg/dL 0.2-1.0 RBC UA (BEAKER) (test dgvc=789) 1 /HPF WBC UA (BEAKER) (test xest=509) < /HPF SOURCE(BEAKER) (test huiu=7543) Urine, Voided [id number] 04:52:00 Test Item Value Reference Range Comments MAGNESIUM (BEAKER) (test rzpc=129) 2.1 mg/dL 1.6-2.6 COMPREHENSIVE METABOLIC [id number] 04:52:00 Test Item Value Reference Range Comments TOTAL PROTEIN (BEAKER) 6.2 gm/dL 6.0-8.3 (test cykp=939) ALBUMIN (BEAKER) (test 3.6 g/dL 3.5-5.0 iyau=2582) ALKALINE PHOSPHATASE 83 U/L 40-150 (BEAKER) (test nqnb=701) BILIRUBIN TOTAL (BEAKER) 0.4 mg/dL 0.2-1.2 (test mwzu=953) SODIUM (BEAKER) (test 137 meq/L 136-145 bknh=372) POTASSIUM (BEAKER) (test 4.4 meq/L 3.5-5.1 zbzd=408) CHLORIDE (BEAKER) (test 108 meq/L 98-107 qkad=516) CO2 (BEAKER) (test 22 meq/L 22-29 rfpc=960) BLOOD UREA NITROGEN 14 mg/dL 7-21 (BEAKER) (test ejvd=931) CREATININE (BEAKER) (test 1.61 mg/dL 0.57-1.25 tccq=439) GLUCOSE RANDOM (BEAKER) 89 mg/dL 70-105 (test leqe=304) CALCIUM (BEAKER) (test 8.9 mg/dL 8.4-10.2 dllt=470) AST (SGOT) (BEAKER) (test 18 U/L 5-34 lfdt=317) ALT (SGPT) (BEAKER) (test 15 U/L 6-55 ivfq=498) EGFR (BEAKER) (test 44 mL/min/1.73 sq m ESTIMATED GFR IS NOT bvqi=1258) ACCURATE CREATININE CLEARANCE IN PREDICTING GLOMERULAR FILTRATION RATE. ESTIMATED GFR IS NOT APPLICABLE FOR DIALYSIS PATIENTS. [id number] 04:50:00 Test Item Value Reference Range Comments PARTIAL THROMBOPLASTIN TIME (BEAKER) (test 27.8 seconds 22.5-36.0 gjed=143) PROTHROMBIN TIME/[id number] 04:49:00 Test Item Value Reference Range Comments PROTIME (BEAKER) (test ynva=628) 13.0 seconds 11.7-14.7 INR (BEAKER) (test ojko=323) 1.0 <=5.9 RECOMMENDED COUMADIN/WARFARIN INR THERAPY RANGESSTANDARD DOSE: 2.0 - 3.0 Includes: PROPHYLAXIS forvenous thrombosis, systemic embolization; TREATMENT for venous thrombosis and/or pulmonary embolus.HIGH RISK: Target INR is 2.5-3.5 for patients with mechanical heart valves.CBC W/PLT COUNT & AUTO [id number] 04:34:00 Test Item Value Reference Range Comments WHITE BLOOD CELL COUNT (BEAKER) (test dmpc=903) 7.6 K/ L 3.5-10.5 RED BLOOD CELL COUNT (BEAKER) (test fkff=939) 4.47 M/ L 4.63-6.08 HEMOGLOBIN (BEAKER) (test rokn=141) 14.4 GM/DL 13.7-17.5 HEMATOCRIT (BEAKER) (test lxet=029) 44.2 % 40.1-51.0 MEAN CORPUSCULAR VOLUME (BEAKER) (test gksa=494) 98.9 fL 79.0-92.2 MEAN CORPUSCULAR HEMOGLOBIN (BEAKER) (test 32.2 pg 25.7-32.2 hkxg=706) MEAN CORPUSCULAR HEMOGLOBIN CONC (BEAKER) (test 32.6 GM/DL 32.3-36.5 vyez=983) RED CELL DISTRIBUTION WIDTH (BEAKER) (test 14.8 % 11.6-14.4 gzol=841) PLATELET COUNT (BEAKER) (test rzhc=957) 244 K/CU MM 150-450 MEAN PLATELET VOLUME (BEAKER) (test avgs=175) 9.2 fL 9.4-12.4 NUCLEATED RED BLOOD CELLS (BEAKER) (test 0 /100 WBC 0-0 ivry=183) NEUTROPHILS RELATIVE PERCENT (BEAKER) (test 68 % ywjh=059) LYMPHOCYTES RELATIVE PERCENT (BEAKER) (test 20 % vhnl=182) MONOCYTES RELATIVE PERCENT (BEAKER) (test 7 % ahxw=481) EOSINOPHILS RELATIVE PERCENT (BEAKER) (test 5 % jumd=877) BASOPHILS RELATIVE PERCENT (BEAKER) (test 0 % bhrw=017) NEUTROPHILS ABSOLUTE COUNT (BEAKER) (test 5.11 K/ L 1.78-5.38 lnby=921) LYMPHOCYTES ABSOLUTE COUNT (BEAKER) (test 1.54 K/ L 1.32-3.57 bfsx=686) MONOCYTES ABSOLUTE COUNT (BEAKER) (test 0.51 K/ L 0.30-0.82 wcvo=228) EOSINOPHILS ABSOLUTE COUNT (BEAKER) (test 0.36 K/ L 0.04-0.54 yfhr=889) BASOPHILS ABSOLUTE COUNT (BEAKER) (test 0.03 K/ L 0.01-0.08 bfzj=788) IMMATURE GRANULOCYTES-RELATIVE PERCENT (BEAKER) 0 % 0-1 (test zhjt=5943) RAD, CHEST, 1 VIEW, NON [id number] 22:42:00Reason for exam:->pre op evalShould this be performed at the bedside?->YesFINAL REPORT INDICATION: pre op eval COMPARISON: None TECHNIQUE: Single frontal view of the chest. FINDINGS: Lungs and pleura: Clear lungs. No effusion.Heart and mediastinum: Normal heart size. Unremarkable mediastinal contours.Osseous structures: No acute abnormality.Other: None. IMPRESSION: No acute intrathoracic abnormality. Signed: JR Horta Robert MDReport Verified Date/Time: 11/16/2017 22:42:55 Reading Location: [address] Reading Room
[2018-05-14] MEDS ORDERED: HYDROCODONE/APAP 10/325 TAB ONE (14:29)
--- NOTE | 2018-05-14 16:09 | ER ---
Nurse's Notes [facility] Name: Jaswinder Roa Age: 62 yrs Sex: Male : 1955 Arrival Date: 05/14/2018 Time: 12:55 Bed 14 Private MD: Uriel Langford S Diagnosis: Edema, unspecified-lower bilateral extremities Presentation: 05/14 13:12 Presenting complaint: Patient states: Bilateral feet pain and swelling for 2 weeks. aj Seen at [facility] for same complaint on Tuesday and given RX for pain medicine, R/O DVT. Patient reports pain medication is not helping. Transition of care: patient was not received from another setting of care. Onset of symptoms was April 25, 2018. Risk Assessment: Do you want to hurt yourself or someone else? Patient reports no desire to harm self or others. Initial Sepsis Screen: Does the patient meet any 2 criteria? No. Patient's initial sepsis screen is negative. Does the patient have a suspected source of infection? No. Patient's initial sepsis screen is negative. Care prior to arrival: None. 13:12 Method Of Arrival: Ambulatory 13:12 Acuity: CHICHI 3 Triage Assessment: 13:14 General: Appears in no apparent distress. comfortable, Behavior is calm, cooperative, aj appropriate for age. Pain: Complains of pain in right foot and left foot. Neuro: Level of Consciousness is awake, alert, obeys commands, Oriented to person, place, time, situation, Appropriate for age. Respiratory: Airway is patent Respiratory effort is even, unlabored, Respiratory pattern is regular, symmetrical. Derm: Skin is intact, is healthy with good turgor, Skin is pink, warm \\T\\ dry. normal. Musculoskeletal: Reports pain in right foot and left foot. Historical: - Allergies: 13:14 No Known Allergies; aj - Home Meds: 13:14 aspirin 81 mg Oral chew 1 tab once daily [Active]; lisinopril 5 mg Oral tab 1 tab once aj daily [Active]; Plavix 75 mg Oral tab 1 tab once daily [Active]; Warfarin Oral [Active]; - PMHx: 13:14 DVT; Hypertension; aj - PSHx: 13:14 embolectomy of blood clot in right leg; aj - Immunization history:: Adult Immunizations up to date. - Social history:: Smoking status: Patient uses tobacco products, smokes one pack cigarettes per day. - Ebola Screening: : Patient negative for fever greater than or equal to 101.5 degrees Fahrenheit, and additional compatible Ebola Virus Disease symptoms Patient denies exposure to infectious person Patient denies travel to an Ebola-affected area in the 21 days before illness onset No symptoms or risks identified at this time. Screenin:33 Abuse screen: Denies threats or abuse. Denies injuries from another. Nutritional ch screening: No deficits noted. Tuberculosis screening: No symptoms or risk factors identified. Fall Risk None identified. Assessment: 13:56 Reassessment: Patient appears in no apparent distress at this time. Patient and/or ch family updated on plan of care and expected duration. Pain level reassessed. Patient is alert, oriented x 3, equal unlabored respirations, skin warm/dry/pink. General: Appears in no apparent distress. comfortable, Behavior is calm, cooperative, appropriate for age. Pain: Complains of pain in right foot and left foot Pain currently is 5 out of 10 on a pain scale. Pain began suddenly. Neuro: No deficits noted. Respiratory: No deficits noted. GI: GI: No signs and/or symptoms were reported involving the gastrointestinal system. : No signs and/or symptoms were reported regarding the genitourinary system. Derm: Skin is dusky, pt skin is dusky in R foot, but pink in the L. ellen feet are swollen, CMV DRIVER less than 3 sec in L foot, less than 5 sec in R foot. Musculoskeletal: Swelling present in right foot and left foot. 15:31 Reassessment: Patient appears in no apparent distress at this time. No changes from previously documented assessment. Patient and/or family updated on plan of care and expected duration. Pain level reassessed. Patient is alert, oriented x 3, equal unlabored respirations, skin warm/dry/pink. 16:26 Reassessment: Patient appears in no apparent distress at this time. Patient and/or ch family updated on plan of care and expected duration. Pain level reassessed. Patient is alert, oriented x 3, equal unlabored respirations, skin warm/dry/pink. Patient states symptoms have not improved. pt asks if we can give him a prescription for hydrocodone's. Luis Eduardo in room and tries to educated pt on narcotics, schedule 2 narcotics, elevating legs, compression socks. pt refuses tramadol prescription, refuses codeine, refuses Ultram, refuses cyclobenzaprine. states he needs [place]. pt refuses to listen to non narcotic interventions. luis eduardo states he cannot write pt for norco. pt asks me what prescription he will get, I tell him he can take Tylenol or Motrin, that he has refused all the other prescriptions. . Vital Signs: 13:15 BP 127 / 94; Pulse 103; Resp 18; Temp 98.5; Pulse Ox 98% on R/A; Weight 86.18 kg; aj Height 6 ft. 2 in. (187.96 cm); 14:00 BP 125 / 68; Pulse 62; Resp 18; Pulse Ox 96% on R/A; Pain 8/10; ch 15:33 BP 142 / 77; Pulse 74; Pulse Ox 95% on R/A; Pain 7/10; ch 16:26 BP 128 / 84; Pulse 66; Resp 15; Temp 97.9; Pulse Ox 96% on R/A; Pain 9/10; ch 13:15 Body Mass Index 24.39 (86.18 kg, 187.96 cm) aj 15:33 "That norco didnt work for me, I told him it wouldnt. That hydrocodone just isnt strong ch enough" 16:26 pt dresses himself, sitting upright in bed, calm, resps even and unlabored, no s/s of ch distress. pt is standing in room waiting on me to discharge him. pt refuses a wheelchair. I attempt to tell pt to elevate his legs, he waves his hand at me and walks out. ED Course: 12:55 Patient arrived in ED. mr 12:56 Uriel Langford MD is Private Physician. mr 13:13 Triage completed. aj 13:15 Arm band placed on left wrist. Patient placed in waiting room, Patient notified of wait aj time. 13:46 Luis Eduardo Gardner, ALEXANDER is PHCP. pm1 13:46 Rl Guevara MD is Attending Physician. pm1 13:56 Arlette Edmondson, ELENA is Primary Nurse. ch 14:56 Ultrasound completed. Patient tolerated well. sg3 15:33 No apparent distress. Resting quietly. ch 15:33 Patient has correct armband on for positive identification. Placed in gown. Bed in low ch position. Call light in reach. Side rails up X 1. Pulse ox on. NIBP on. Warm blanket given. 15:33 No provider procedures requiring assistance completed. Patient did not have IV access ch during this emergency room visit. Administered Medications: 14:23 Drug: [place] 10 mg-325 mg 1 tabs Route: PO; em 15:34 Follow up: Response: No adverse reaction; No change in condition Outcome: 16:08 Discharge ordered by . pm1 16:26 Discharged to home ambulatory. ch 16:26 Condition: stable 16:26 Discharge instructions given to patient, Instructed on discharge instructions, pt refuses to listen to instructions, walks waving his hand at me. pt leaves swearing and cursing, ambulatory, gait steady. 16:38 Patient left the ED. Signatures: Arlette Edmondson, RN Deirdre Tristan ch, RN RN aj Rivera, Yuridia mr Pappas, Andrés, AMMONIUM SULFATE OPERATOR AMMONIUM SULFATE OPERATOR em Luis Eduardo Gardner, DONOR SERVICES COORDINATOR DONOR SERVICES COORDINATOR pm1 Neeru Andrew sg3 Corrections: (The following items were deleted from the chart) 13:15 13:12 Acuity: CHICHI 4 aj aj 16:38 16:26 Discharge instructions given to patient, Instructed on discharge instructions, pt ch refuses to listen to instructions, walks waving his hand at me. ch
--- NOTE | 2018-05-14 16:09 | EDPHYS ---
Physician Documentation [facility] Emergency [facility] Name: Jaswinder Roa Age: 62 yrs Sex: Male : 1955 Arrival Date: 05/14/2018 Time: 12:55 Bed 14 Private MD: Uriel Langford S ED Physician GardnerRl HPI: 05/14 14:35 This 62 yrs old Male presents to ER via Ambulatory with complaints of Lower pm1 extermity swelling. 14:35 The patient presents with pain. The complaints affect the left and right lower legs. pm1 Context: The problem was sustained at home, resulted from an unknown cause, the patient can fully bear weight, the patient is able to ambulate. Onset: The symptoms/episode began/occurred right leg swelling with pain present since January 2018 and left leg swelling and pain for the past two weeks. Modifying factors: The symptoms are alleviated by nothing. the symptoms are aggravated by nothing. Associated signs and symptoms: Pertinent negatives calf tenderness, fever, chest pain, shortness of breath. Treatment prior to arrival includes: prescription medications, reports ineffective. Severity of symptoms: in the emergency department the symptoms are unchanged, despite prescription medications given at ER visit at [facility] on Tuesday. The patient has experienced similar episodes in the past, several times. [facility] ER two days ago for the same complaint. Historical: - Allergies: 13:14 No Known Allergies; aj - Home Meds: 13:14 aspirin 81 mg Oral chew 1 tab once daily [Active]; lisinopril 5 mg Oral tab 1 tab once aj daily [Active]; Plavix 75 mg Oral tab 1 tab once daily [Active]; Warfarin Oral [Active]; - PMHx: 13:14 DVT; Hypertension; aj - PSHx: 13:14 embolectomy of blood clot in right leg; aj - Immunization history:: Adult Immunizations up to date. - Social history:: Smoking status: Patient uses tobacco products, smokes one pack cigarettes per day. - Ebola Screening: : Patient negative for fever greater than or equal to 101.5 degrees Fahrenheit, and additional compatible Ebola Virus Disease symptoms Patient denies exposure to infectious person Patient denies travel to an Ebola-affected area in the 21 days before illness onset No symptoms or risks identified at this time. ROS: 14:35 Constitutional: Negative for fever, chills, and weight loss, Eyes: Negative for injury, pm1 pain, redness, and discharge, ENT: Negative for injury, pain, and discharge, Neck: Negative for injury, pain, and swelling, Cardiovascular: Negative for chest pain, palpitations, and edema, Respiratory: Negative for shortness of breath, cough, wheezing, and pleuritic chest pain, Abdomen/GI: Negative for abdominal pain, nausea, vomiting, diarrhea, and constipation, Back: Negative for injury and pain, : Negative for injury, bleeding, discharge, and swelling. 14:35 Skin: Negative for injury, rash, and discoloration, Neuro: Negative for headache, weakness, numbness, tingling, and seizure. 14:35 MS/extremity: Positive for swelling, of the right leg below knee and left leg below knee, Negative for decreased range of motion, deformity, erythema, paresthesias. Exam: 14:35 Constitutional: This is a well developed, well nourished patient who is awake, alert, pm1 and in no acute distress. Head/Face: Normocephalic, atraumatic. Neck: Trachea midline, no thyromegaly or masses palpated, and no cervical lymphadenopathy. Supple, full range of motion without nuchal rigidity, or vertebral point tenderness. No Meningismus. Chest/axilla: Normal chest wall appearance and motion. Nontender with no deformity. No lesions are appreciated. Respiratory: Lungs have equal breath sounds bilaterally, clear to auscultation and percussion. No rales, rhonchi or wheezes noted. No increased work of breathing, no retractions or nasal flaring. Abdomen/GI: Soft, non-tender, with normal bowel sounds. No distension or tympany. No guarding or rebound. No evidence of tenderness throughout. Back: No spinal tenderness. No costovertebral tenderness. Full range of motion. 14:35 Skin: Warm, dry with normal turgor. Normal color with no rashes, no lesions, and no evidence of cellulitis. 14:35 MS/ Extremity: Pulses equal, no cyanosis. Neurovascular intact. Full, normal range of motion. 14:35 Cardiovascular: Rate: normal, Rhythm: regular, Pulses: no pulse deficits are appreciated, Edema: 1+ edema to level of right midcalf, Trace edema to level of left mid calf. 14:35 Neuro: Orientation: is normal, Motor: moves all fours, Sensation: is normal, no obvious gross deficits. Vital Signs: 13:15 BP 127 / 94; Pulse 103; Resp 18; Temp 98.5; Pulse Ox 98% on R/A; Weight 86.18 kg; aj Height 6 ft. 2 in. (187.96 cm); 14:00 BP 125 / 68; Pulse 62; Resp 18; Pulse Ox 96% on R/A; Pain 8/10; ch 15:33 BP 142 / 77; Pulse 74; Pulse Ox 95% on R/A; Pain 7/10; ch 16:26 BP 128 / 84; Pulse 66; Resp 15; Temp 97.9; Pulse Ox 96% on R/A; Pain 9/10; ch 13:15 Body Mass Index 24.39 (86.18 kg, 187.96 cm) aj 15:33 "That norco didnt work for me, I told him it wouldnt. That hydrocodone just isnt strong ch enough" 16:26 pt dresses himself, sitting upright in bed, calm, resps even and unlabored, no s/s of ch distress. pt is standing in room waiting on me to discharge him. pt refuses a wheelchair. I attempt to tell pt to elevate his legs, he waves his hand at me and walks out. MDM: 14:02 Patient medically screened. pm1 16:06 Data reviewed: vital signs. Data interpreted: Pulse oximetry: on room air is 95 %. pm1 Interpretation: normal. Counseling: I had a detailed discussion with the patient and/or guardian regarding: the historical points, exam findings, and any diagnostic results supporting the discharge/admit diagnosis, radiology results, the need for outpatient follow up, to return to the emergency department if symptoms worsen or persist or if there are any questions or concerns that arise at home. 16:26 ED course: Patient reports that he cannot take Tramadol or Codeine. Patient wants a pm1 prescription for [place]. Explained to the patient that schedule 2 narcotics cannot be prescribed from the ER. 05/14 14:10 Order name: Extrem Venous W Compression Jun US pm1 05/14 16:29 Order name: US; Complete Time: 16:46 EDMS Administered Medications: 14:23 Drug: [place] 10 mg-325 mg 1 tabs Route: PO; em 15:34 Follow up: Response: No adverse reaction; No change in condition ch Disposition: 05/14/18 16:08 Discharged to Home. Impression: Edema, unspecified - lower bilateral extremities. - Condition is Stable. - Discharge Instructions: Peripheral Edema. - Medication Reconciliation Form, Thank You Letter form. - Follow up: Emergency Department; When: As needed; Reason: Worsening of condition. Follow up: Private Physician; When: 2 - 3 days; Reason: Recheck today's complaints, Continuance of care, Re-evaluation by your physician. - Problem is new. - Symptoms have improved. Addendum: 05/16/2018 03:37 Co-signature as Attending Physician, Rl Guevara MD I agree with the assessment and t w4 plan of care. Signatures: Dispatcher [employer] Arlette Myers, RN Deirdre Tristan ch, RN RN aj Munoz, Edgar, LAND RESOURCE SPECIALIST LAND RESOURCE SPECIALIST em Kwesi Gardner, FUR SORTER FUR SORTER pm1 Rl Guevara MD MD tw4 Corrections: (The following items were deleted from the chart) 05/14 16:38 16:08 05/14/2018 16:08 Discharged to Home. Impression: Edema, unspecified - lower ch bilateral extremities. Condition is Stable. Forms are Medication Reconciliation Form, Thank You Letter, Antibiotic Education, Prescription Opioid Use. Follow up: Emergency Department; When: As needed; Reason: Worsening of condition. Follow up: Private Physician; When: 2 - 3 days; Reason: Recheck today's complaints, Continuance of care, Re-evaluation by your physician. Problem is new. Symptoms have improved. pm1
--- NOTE | 2018-05-14 16:27 | RAD REPORT ---
EXAM DESCRIPTION: US - Extrem Venous W Compress Jun - 05/14/2018 2:57 pm CLINICAL HISTORY: Leg pain and swelling COMPARISON: None. TECHNIQUE: Real-time sonographic evaluation of the bilateral lower extremity common femoral, superfi cial femoral, popliteal and posterior tibial veins was performed. FINDINGS: Normal compressibility, flow augmentation, phasic flow and spontaneous flow are identified in the left and right lower extremity common femoral, superficial femoral, popliteal and posterior t ibial veins. No intraluminal filling defects seen. IMPRESSION: No DVT in either lower extremity.
[2018-05-14 16:55] VITALS: BP 128/84; TEMP 97.9; O2SAT 96
== END 2018-05-14 16:38 | disposition home or self-care (01) ==
LOC: ER 12:52
DX: R60.9 Edema, unspecified (principal); I10 Essential (primary) hypertension; F17.210 Nicotine dependence, cigarettes, uncomplicated; Z79.01 Long term (current) use of anticoagulants; Z79.02 Long term (current) use of antithrombotics/antiplatelets; Z79.82 Long term (current) use of aspirin
CPT/HCPCS: 93970

== ENCOUNTER 2018-06-03 01:17 | Emergency (ER) | payer OTHER ==
--- OUTSIDE RECORDS SUMMARY | 2018-06-03 01:22 | XMS REPORT | Clinical Summary ---
:1955 Author Organization [facility] Address [address] [place] [address] Care Team Providers Name Role Phone Sharpless Primary Care Provider Arthur Alvarez Unavailable Allergies Active Allergy Reactions Severity Noted Date Comments Tramadol 11/17/2017 Passed out Medications Medication Sig Dispensed Refills Start Date [...] tablet (325 mg total) by mouth daily. cilostazol (PLETAL) Take 100 mg 0 05/05/2018 Active 100 MG tablet by mouth daily. acetaminophen-codei Take 1 tablet 0 Active ne (TYLENOL #3) by mouth 300-30 mg per every 6 (six) tablet hours as needed for Pain. aspirin 81 MG Take 1 tablet 30 [...] days. Active Problems Problem Noted Date Rectal cancer 05/27/2018 HTN (hypertension) 05/19/2018 DVT, lower extremity 05/19/2018 Acute GI bleeding 05/18/2018 Rectal cancer 02/08/2018 Critical lower limb ischemia 01/24/2018 Ischemia 01/23/2018 PVD (peripheral vascular disease) 11/17/2017 Peripheral vascular disease 11/16/2017 CKD (chronic kidney disease) stage 3, GFR 30-59 ml/min 04/25/2015 Overview: Baseline creatinine ~1.6-1.8 since 2016 Benign essential HTN ETOH abuse Tobacco abuse Resolved Problems Problem Noted Date Resolved Date Acute GI bleeding 02/05/2018 05/18/2018 Acute respiratory insufficiency 05/18/2018 Postoperative anemia due to acute blood loss 05/18/2018 Encounters Date Type Specialty Care Team Description 05/23/2018 Anesthesia Event Gastroenterology Solis Camachoala 05/23/2018 Surgery Gastroenterology [place], SIGMOIDOSCOPY Zahira Larose MD 05/18/2018 Surgery Arthur Oconnor ENDARTERECTOMY,FEMOR MD Amira [place] 05/18/2018 Anesthesia Event Kushal Vazquez MD 05/17/2018 Hospital Oncology Daniel Morin, Acute GI bleeding - Encounter MD (Primary Dx) 05/29/2018 Sheryl Hurt MD Tran, Tuan (Mitch) MD Dilshad 05/17/2018 Office Visit Cardiology Arthur Oconnor Peripheral vascular disease (HCC) (Primary Dx); MD Amira Ischemia; Daniel Morin, Rectal cancer (HCC) 05/17/2018 Orders Only General Internal Medicine 05/17/2018 Travel 02/15/2018 Anesthesia Event Gastroenterology Steven Gonzáles MD 02/15/2018 Surgery Gastroenterology Fadi Philippe UPPER MD Nixon ENDOSCOPY,BIOPSY 02/08/2018 Surgery Michela PERIPHERAL ANGIOS / Timothy Paniagua MD AORTOGRAM 02/06/2018 Anesthesia Event Gastroenterology Aleshia Manuel MD 02/06/2018 Surgery Gastroenterology Fadi Philippe COLONOSCOPY,POLYPECT MD Nixon GOPAL 02/05/2018 [facility] Cardiology Neena, - Encounter Elizabeth Paniagua MD 02/16/2018 Daniel Morin MD Daniel, Jamuna V., MD 01/25/2018 Surgery Michela, ELECTRICAL DESIGN ENGINEER FEMORAL &/OR Timothy Paniagua MD POPLITEAL 01/23/2018 Anesthesia Event Ricardo Loyola MD 01/23/2018 [facility] Encounter Carmelo Mccallum, 01/28/2018 Jairo Ramírez MD 01/23/2018 Surgery Arthur Oconnor ANGIOGRAM-LOWER MD Amira EXTREMITY 12/06/2017 Office Visit Cardiology Arthur Oconnor Postoperative state MD Amira (Primary Dx) 11/17/2017 Surgery Arthur Oconnor BYPASS,FEMORAL-POPLI MD Amira TEAL 11/17/2017 Anesthesia Event Stefan Chase AA 11/17/2017 Orders Only General Internal Medicine 11/16/2017 [facility] Cardiology Arthur Oconnor Benign essential HTN - Encounter MD Amira (Primary Dx) 11/21/2017 after 06/02/2017 Immunizations Name Dates Previously Given Next Due [...] Quit: Yes Alcohol Use Drinks/Week oz/Week Comments No 3 Shots of liquor 1.8 # drinks of liqor/day Alcohol Habits Answer Date Recorded How often do you have a drink containing alcohol? Never 05/17/2018 How many drinks containing alcohol do you have on a typical Not asked day when you are drinking? How often do you have six or more drinks on one occasion? Not asked Sex Assigned at Date Recorded Not on file Job Start Date Occupation Industry Not on file Not on file Not on file Travel History Travel Start Travel End No recent travel history available. Last Filed Vital Signs Vital Sign Reading Time Taken Blood Pressure 110/76 05/29/2018 7:00 AM [employer]STATE [employer]ANNER Pulse 75 05/29/2018 10:09 AM ESTATE PL[employer]NER Temperature 37.1 C (98.7 F) 05/29/2018 7:00 AM ESTATE PLANNER Respiratory Rate 20 05/29/2018 10:09 AM ESTATE PLANNER Oxygen Saturation 98% 05/29/2018 10:09 AM ESTATE PLANNER Inhaled Oxygen Concentration 21% 05/27/2018 8:20 PM ESTATE PLANNER Weight 88.1 kg (194 lb 3.6 oz) 05/29/2018 5:00 AM ESTATE PLANNER Height 188 cm (6' 2") 05/26/2018 12:30 PM ESTATE PLANNER Body Mass Index 24.94 05/29/2018 5:00 AM ESTATE PLANNER Plan of Treatment Date Type Specialty Care Team Description 05/23/2018 Anesthesia Event Cardiology Sujit García MD [address] [facility] [address] [place], [place] [id number] 06/13/2018 Office Visit Cardiology Arthur Oconnor MD [address] [facility] [phone] [place] [address] Health Maintenance Due Date Last Done Comments INFLUENZA VACCINE Completed 02/07/2018 Implants Implanted Type Area Entry Level Project Coordinator Device Shelf Model / Identifier Expiration Serial / Date Lot Mynxgrip Cardiovascular Left: CARDINAL 11/23/2019 [id number] / Implanted: Qty: 1 on 01/25/2018 by Timothy Abernathy MD [employer] / [id number] Flseal Vhsd Full Strlprep 10ml [id number] - [id number] Cement/Filler/Adh Right: BUCHANAN:BIOSCI 04/11/2019 [id number] / Implanted: Qty: 1 on 11/17/2017 by Arthur Oconnor MD esive Leg / [id number] Floseal Vhsd Full Strlprep 5ml [id number] - [id number] Cement/Filler/Adh Right: BUCHANAN:BIOSCI 10/04/2019 [id number] / Implanted: Qty: 1 on 05/18/2018 by Arthur Oconnor MD esive Leg / [id number] Grft Eptfe-Heparin Rng [id number] - [id number] Graft/Patch Right: PRINCE OLIVIER & 08/08/2021 [id number] / Implanted: Qty: 1 on 11/17/2017 by Arthur Oconnor MD Leg ASSC:MED PRDT [id number] / Grft Eptfe-Heparin Rng [id number] - [id number] Graft/Patch Right: PRINCE GORE & 01/01/2022 [id number] / Implanted: Qty: 1 on 05/18/2018 by Arthur Oconnor MD Leg ASSC:MED PRDT [id number] / Procedures Procedure Name Priority Date/Time Associated Comments Diagnosis CBC W/PLT COUNT & AUTO Routine 05/29/2018 5:11 Results for this DIFFERENTIAL AM [employer]STATE [employer]ANNER procedure are in the results section. COMPREHENSIVE Routine 05/29/2018 5:11 Results for this METABOLIC PANEL AM [employer]STATE [employer]NER procedure are in the results section. CBC W/PLT COUNT & AUTO Routine 05/29/2018 5:11 Results for this DIFFERENTIAL AM [employer]STATE [employer]NER procedure are in the results section. CBC W/PLT COUNT & AUTO Routine 05/28/2018 4:21 Results for this DIFFERENTIAL AM [employer]STATE [employer]NER procedure are in the results section. COMPREHENSIVE Routine 05/28/2018 4:21 Results for this METABOLIC PANEL AM [employer]STATE [employer]NER procedure are in the results section. CBC W/PLT COUNT & AUTO Routine 05/28/2018 4:21 Results for this DIFFERENTIAL AM [employer]STATE [employer]NER procedure are in the results section. CBC W/PLT COUNT & AUTO Routine 05/27/2018 5:48 Results for this DIFFERENTIAL AM [employer]STATE [employer]NER procedure are in the results section. CBC W/PLT COUNT & AUTO Routine 05/27/2018 5:48 Results for this DIFFERENTIAL AM [employer]STATE [employer]NER procedure are in the results section. CBC W/PLT COUNT & AUTO Routine 05/26/2018 3:56 Results for this DIFFERENTIAL AM [employer]STATE [employer]NER procedure are in the results section. CBC W/PLT COUNT & AUTO Routine 05/26/2018 3:56 Results for this DIFFERENTIAL AM [employer]STATE [employer]NER procedure are in the results section. CBC W/PLT COUNT & AUTO Routine 05/25/2018 4:59 Results for this DIFFERENTIAL AM [employer]STATE [employer] procedure are in the results section. MAGNESIUM Routine 05/25/2018 4:59 Results for this AM [employer]NER procedure are in the results section. BASIC METABOLIC PANEL Routine 05/25/2018 4:59 Results for this (7) AM [employer]STATE [employer]NER procedure are in the results section. CBC W/PLT COUNT & AUTO Routine 05/25/2018 4:59 Results for this DIFFERENTIAL AM [employer]STATE [employer]NER procedure are in the results section. CBC W/PLT COUNT & AUTO STAT 05/24/2018 12:50 Results for this DIFFERENTIAL PM [employer]NER procedure are in the results section. MAGNESIUM STAT 05/24/2018 12:50 Results for this PM [employer]NER procedure are in the results section. BASIC METABOLIC PANEL STAT 05/24/2018 12:50 Results for this (7) PM [employer]STATE [employer]NER procedure are in the results section. CBC W/PLT COUNT & AUTO STAT 05/24/2018 12:50 Results for this DIFFERENTIAL PM [employer]STATE [employer] procedure are in the results section. REPORT OF PROCEDURE - 05/23/2018 5:13 ENDOSCOPY URL PM ESTATE [employer]NER SIGMOIDOSCOPY 05/23/2018 1:00 Rectal bleeding PM [employer]STATE [employer]NER Special Needs flex sig w/ anes CBC W/PLT COUNT & Routine 05/23/2018 4:47 AM Results for this AUTO DIFFERENTIAL ESTATE [employer]NER procedure are in the results section. MAGNESIUM Routine 05/23/2018 4:47 AM Results for this ESTATE [employer]NER procedure are in the results section. BASIC METABOLIC PANEL Routine 05/23/2018 4:47 AM Results for this (7) ESTATE [employer]NER procedure are in the results section. CBC W/PLT COUNT & Routine 05/23/2018 4:47 AM Results for this AUTO DIFFERENTIAL ESTATE [employer]NER procedure are in the results section. HEMOGLOBIN AND Routine 05/22/2018 4:46 PM Results for this HEMATOCRIT [employer]STATE [employer]NER procedure are in the results section. CBC W/PLT COUNT & STAT 05/22/2018 12:27 PM Results for this AUTO DIFFERENTIAL ESTATE [employer]NER procedure are in the results section. MAGNESIUM STAT 05/22/2018 12:27 PM Results for this ESTATE [employer]NER procedure are in the results section. CBC W/PLT COUNT & STAT 05/22/2018 12:27 PM Results for this AUTO DIFFERENTIAL ESTATE [employer]NER procedure are in the results section. BASIC METABOLIC PANEL STAT 05/22/2018 12:27 PM Results for this (7) ESTATE [employer]NER procedure are in the results section. BASIC METABOLIC PANEL Routine 05/20/2018 4:31 AM Results for this (7) [employer]STATE [employer]NER procedure are in the results section. TRANSFUSION SERVICE 05/19/2018 5:50 PM REPORT - SCAN [facility]STATE [employer]NER CBC W/PLT COUNT & Routine 05/19/2018 6:24 AM Results for this AUTO DIFFERENTIAL [employer]STATE [employer]NER procedure are in the results section. CBC W/PLT COUNT & Routine 05/19/2018 6:24 AM Results for this AUTO DIFFERENTIAL [employer]STATE [employer]NER procedure are in the results section. BASIC METABOLIC PANEL Routine 05/19/2018 6:24 AM Results for this (7) [employer]STATE [employer]NER procedure are in the results section. ENDARTERECTOMY,FEMORA 05/18/2018 11:30 AM Thrombosis of L [employer]STATE [employer]NER arteries of lower extremity (HCC) Case Notes REQ 11 AM START CBC W/PLT COUNT & AUTO Routine 05/18/2018 5:32 AM ESTATE PL[employer]NER Results for this DIFFERENTIAL procedure are in the results section. TYPE AND SCREEN, AUTOMATED Routine 05/18/2018 5:32 AM ESTATE [employer]NER LIPID PANEL Routine 05/18/2018 5:32 AM ESTATE PLANNER CBC W/PLT COUNT & AUTO Routine 05/18/2018 5:32 AM ESTATE PLANNER Results for this DIFFERENTIAL procedure are in the results section. BASIC METABOLIC PANEL (7) Routine 05/18/2018 5:32 AM ESTATE PLANNER XR CHEST 1 VIEW Routine 05/17/2018 9:48 PM ESTATE PLANNER Results for this PORTABLE/BEDSIDE procedure are in the results section. VENOUS DOPPLER LEGS STAT 05/17/2018 9:15 PM ESTATE PLANNER Results for this BILATERAL procedure are in the results section. ECG 12-LEAD Routine 05/17/2018 8:08 PM ESTATE PLANNER Procedure Note - Interface, External Ris In - 05/17/2018 8:12 PM ESTATE PLANNER Ventricular Rate 88 BPM Atrial Rate 88 BPM P-R Interval 186 ms QRS Duration 90 ms Q-T Interval 366 ms QTC Calculation(Bazett) 442 ms P Lom[place] 58 degrees R [place]om[place] 51 degrees T [place]om[place] 56 degrees Normal sinus rhythm Normal ECG No previous ECGs available ECG 12-LEAD Routine 05/17/2018 8:08 PM Results for this ESTATE [employer]ANNER procedure are in the results section. ECG 12-LEAD Routine 05/17/2018 8:08 PM Results for this ESTATE [employer]NER procedure are in the results section. PT/APTT Routine 05/17/2018 6:30 PM Results for this [employer]STATE [employer]NER procedure are in the results section. PROTHROMBIN TIME/INR Routine 05/17/2018 6:30 PM Results for this ESTATE [employer]NER procedure are in the results section. CBC W/PLT COUNT & AUTO Routine 05/17/2018 6:08 PM Results for this DIFFERENTIAL [employer]STATE [employer]NER procedure are in the results section. PHOSPHORUS Routine 05/17/2018 6:08 PM Results for this [employer]STATE [employer]NER procedure are in the results section. MAGNESIUM Routine 05/17/2018 6:08 PM Results for this ESTATE [employer]NER procedure are in the results section. HEPATIC FUNCTION PANEL Routine 05/17/2018 6:08 PM Results for this ESTATE [employer]NER procedure are in the results section. CBC W/PLT COUNT & AUTO Routine 05/17/2018 6:08 PM Results for this DIFFERENTIAL [employer]STATE [employer]NER procedure are in the results section. BASIC METABOLIC PANEL Routine 05/17/2018 6:08 PM Results for this (7) [employer]STATE [employer]NER procedure are in the results section. VASCULAR DIAGRAM -SCAN 02/17/2018 10:50 AM CDT CARDIAC CATH REPORT - 02/17/2018 10:50 AM SCAN CDT RHYTHM STRIP - SCAN 02/17/2018 10:50 AM CDT IR PORT-A-CATH Routine 02/16/2018 12:54 PM Results for this PLACEMENT CDT procedure are in the results section. CBC (HEMOGRAM ONLY) Routine 02/16/2018 5:26 AM Results for this CDT procedure are in the results section. BASIC METABOLIC PANEL Routine 02/16/2018 5:26 AM Results for this (7) CDT procedure are in the results section. REPORT OF PROCEDURE - 02/15/2018 1:01 PM ENDOSCOPY URL CDT FINE NEEDLE ASPIRATE Routine 02/15/2018 11:03 AM Results for this (FNA) REQUEST CDT procedure are in the results section. FINE NEEDLE ASPIRATION AP Routine 02/15/2018 11:03 AM Results for this BY CLINICIAN CDT procedure are in the results section. TISSUE EXAM AP Routine 02/15/2018 10:55 AM Results for this CDT procedure are in the results section. UPPER ENDOSCOPY,BIOPSY 02/15/2018 9:00 AM Rectal cancer CDT (HCC) Special Needs (RADIAL SCOPE) CBC (HEMOGRAM ONLY) [...] CDT procedure are in the results section. ELECTRICAL DESIGN ENGINEER FEMORAL &/OR 02/08/2018 2:40 Acute deep vein POPLITEAL PM CDT thrombosis (DVT) of right lower extremity, unspecified vein (HCC) Case Notes (3) CASE 2443 Periferal angio with possible scow captain of rt leg. 552mGy PERIPHERAL ANGIOS / 02/08/2018 2:40 PM CDT Acute deep vein thrombosis AORTOGRAM (DVT) of right lower extremity, unspecified vein (HCC) Case Notes (3) CASE 2443 Periferal angio with possible scow captain of rt leg. 552mGy POCT-ACT Routine 02/08/2018 [...] CDT procedure are in the results section. ELECTRICAL DESIGN ENGINEER FEMORAL &/OR 01/25/2018 4:04 Peripheral vascular POPLITEAL PM CDT disease, unspecified (HCC) Case Notes 1019 Rt arteriogram possible scow captain of the rt leg POCT-GLUCOSE METER Routine [...] 450 ms QTC Calculation(Bazett) 422 ms P Lomira 49 degrees R Lom[place] 48 degrees T Lomira 55 degrees Sinus bradycardia Otherwise normal ECG [...] procedure are in the results section. after 06/02/2017 Results CBC with platelet count + automated diff (05/29/2018 5:11 AM ESTATE PLANNER)Only the most recent of16 resultswithin the time period is included. WBC 6.3 3.5 - 10.5 K/L [facility] RBC 3.55 (L) 4.63 - 6.08 M/L [facility] Hemoglobin 10.5 (L) 13.7 - 17.5 GM/DL [facility] Hematocrit 32.7 (L) 40.1 - 51.0 % [facility] MCV 92.1 79.0 - 92.2 fL [facility] MCH 29.6 25.7 - 32.2 pg [facility] MCHC 32.1 (L) 32.3 - 36.5 GM/DL [facility] RDW 14.2 11.6 - 14.4 % [facility] Platelets 363 150 - 450 K/CU MM [facility] MPV 8.6 (L) 9.4 - 12.4 fL [facility] nRBC 0 0 - 0 /100 WBC [facility] % Neutros 73 % [facility] % Lymphs 20 % [facility] % Monos 5 % [facility] % Eos 2 % [facility] % Baso 1 % [facility] # Neutros 4.55 1.78 - 5.38 K/L [facility] # Lymphs 1.24 (L) 1.32 - 3.57 K/L [facility] # Monos 0.31 0.30 - 0.82 K/L [facility] # Eos 0.13 0.04 - 0.54 K/L [facility] # Baso 0.03 0.01 - 0.08 K/L [facility] Immature Granulocytes-Relative 0 0 - 1 % [facility] Specimen Blood Performing Organization Address City/State/Zipcode Phone Number [facility] [address] [place] [address] [phone] CENTER Comprehensive metabolic panel (05/29/2018 5:11 AM ESTATE PLANNER)Only the most recent of3 resultswithin the time period is included. Protein, Total 5.9 (L) 6.0 - 8.3 gm/dL [facility] Albumin 3.1 (L) 3.5 - 5.0 g/dL [facility] Alkaline Phosphatase 61 40 - 150 U/L [facility] Total Bilirubin 0.2 0.2 - 1.2 mg/dL [facility] Sodium 139 136 - 145 meq/L [facility] Potassium 4.7 3.5 - 5.1 meq/L [facility] Chloride 109 (H) 98 - 107 meq/L [facility] CO2 24 22 - 29 meq/L [facility] BUN 21 7 - 21 mg/dL [facility] Creatinine 1.61 (H) 0.57 - 1.25 mg/dL [facility] Glucose 101 70 - 105 mg/dL [facility] Calcium 8.4 8.4 - 10.2 mg/dL [facility] AST 12 5 - 34 U/L [facility] ALT 6 6 - 55 U/L [facility] EGFR 44Comment: ESTIMATED GFR mL/min/1.73 sq m [facility] IS NOT ACCURATE [facility] CREATININE CLEARANCE IN PREDICTING GLOMERULAR FILTRATION RATE. ESTIMATED GFR IS NOT APPLICABLE FOR DIALYSIS PATIENTS. Specimen Blood Performing Organization Address City/[facility]/Zipcode Phone Number [facility] [address] [place] [address] CENTER Magnesium (05/25/2018 4:59 AM ESTATE PLANNER)Only the most recent of13 resultswithin the time period is included. Magnesium 2.2Comment: Specimen slightly 1.6 - 2.6 mg/dL [facility] hemolyzed [facility] Specimen Blood - Arm, Right Performing Organization Address City/State/Zipcode Phone Number [place] [phone] [place] [address] [phone] [place] Basic Metabolic Panel (05/25/2018 4:59 AM ESTATE PLANNER)Only the most recent of30 resultswithin the time period is included. Sodium 142 136 - 145 meq/L [facility] Potassium 4.6Comment: Specimen slightly 3.5 - 5.1 meq/L [facility] hemolyzed [facility] Chloride 111 (H) 98 - 107 meq/L [facility] CO2 24 22 - 29 meq/L [facility] BUN 14 7 - 21 mg/dL [facility] Creatinine 1.63 (H)Comment: Specimen 0.57 - 1.25 mg/dL [facility] slightly hemolyzed [facility] Glucose 102 70 - 105 mg/dL [facility] Calcium 8.7 8.4 - 10.2 mg/dL [facility] EGFR 43Comment: ESTIMATED GFR IS mL/min/1.73 sq m [facility] NOT ACCURATE [facility] CENTER CLEARANCE IN PREDICTING GLOMERULAR FILTRATION RATE. ESTIMATED GFR IS NOT APPLICABLE FOR DIALYSIS PATIENTS. Specimen Blood - Arm, Right Performing Organization Address City/[facility] Cent[facility]ode Phone Number [address] [address] [phone] [place] REPORT OF PROCEDURE - ENDOSCOPY URL (05/23/2018 5:13 PM ESTATE PLANNER) Narrative Performed At Hemoglobin and hematocrit (05/22/2018 4:46 PM ESTATE PLANNER)Only the most recent of3 resultswithin the time period is included. Hemoglobin 11.2 (L) 13.7 - 17.5 GM/DL [facility] Hematocrit 33.7 (L) 40.1 - 51.0 % [facility] Specimen Blood Performing Organization Address City/[facility]/Zipcode Phone Number [address] [address] [place] TRANSFUSION SERVICE REPORT - SCAN (05/19/2018 5:50 PM ESTATE PLANNER)Only the most recent of6 resultswithin the time period is included. Narrative Performed At Type and screen, automated (05/18/2018 5:32 AM ESTATE PLANNER)Only the most recent of4 resultswithin the time period is included. ABO/RH AUTOMATED (BEAKER) A POSITIVE [facility] Ab Scrn NEGATIVE [facility] Specimen Blood Performing Organization Address [facility] Phone Number [facility] [address] [place] [phone] Lipid panel (05/18/2018 5:32 AM ESTATE PLANNER)Only the most recent of2 resultswithin the time period is included. Triglycerides 65 mg/dL [facility] Cholesterol 129 mg/dL [facility] HDL 30 mg/dL [facility] LDL Calculated 86 mg/dL [facility] Specimen Blood Narrative Performed At Triglyceride Reference Range: [facility] Low Risk <150 [id number] High Risk 200-499 Very High Risk>=500 Cholesterol Reference Range: Low Risk <200 [id number] High Risk>240 HDL Cholesterol Reference Range: Low Risk >=60 High Risk <40 LDL Cholesterol Reference Range: Optimal<100 Near Avqywyi364-085 Obqtcdxugz567-110 Gjop695-635 Very High >=190 Performing Organization Address City/[facility]/Zipcode Phone Number [facility] [address] [place] [address] [phone] [place] XR chest 1 view portable / bedside (05/17/2018 9:48 PM ESTATE PLANNER)Only the most recent of3 resultswithin the time period is included. Narrative Performed At FINAL REPORT [facility] Chest, one view. HISTORY: Preoperative COMPARISON: Radiograph from 01/23/2018 IMPRESSION: A right chest port has its tip over the lower SVC. Staple line over the right lower chest. There is blunting of the right costophrenic sulcus which is likely scar. The lungs are clear. No pneumothorax. The cardiac silhouette is normal. No acute bony abnormality. Signed: Keshia Christianson MD Report Verified Date/Time:05/17/2018 23:59:18 Reading Location: [facility] B1 C013W Consult Reading Room Procedure Note Interface, External Ris In - 05/18/2018 12:01 AM ESTATE PLANNER FINAL REPORT Chest, one view. HISTORY: Preoperative COMPARISON: Radiograph from 01/23/2018 IMPRESSION: A right chest port has its tip over the lower SVC. Staple line over the right lower chest. There is blunting of the right costophrenic sulcus which is likely scar. The lungs are clear. No pneumothorax. The cardiac silhouette is normal. No acute bony abnormality. Signed: Keshia Christianson MD Report Verified Date/Time: 05/17/2018 23:59:18 Reading Location: [facility] C013W Consult Reading Room Performing Organization Address City/State/Zipcode Phone Number [facility] Venous doppler legs bilateral (05/17/2018 9:15 PM ESTATE PLANNER) Ejection Fraction [facility] CPACS Impressions Performed At Right Impression [facility] CPACS 1. There is no deep venous obstruction in the common femoral, profunda femoral, femoral, popliteal, posterior tibial or peroneal veins where visualized. 2. There is no superficial venous obstruction in the great saphenous vein where visualized. 3. The right femoral-popliteal bypass graft is occluded. Left Impression 1. There is no deep venous obstruction in the common femoral, profunda femoral, femoral, popliteal, posterior tibial or peroneal veins where visualized. 2. There is no superficial venous obstruction in the great saphenous vein where visualized. Conclusions Summary Venous duplex imaging and compression of the bilateral lower extremities were performed. The veins were technically difficult to visualize due to shadowing, patient movement and patient body habitus. The bilateral venous systems were patent and compressible with no evidence of thrombus where visualized. The right femoral-popliteal bypass graft is occluded. Signature Velocities are measured in cm/s ; Diameters are measured in cm Narrative Performed At [facility] - Lower Extremities DVT Study [facility] Demographics Patient NameViet RANDALL of Study 05/17/2018 ESTEFANIA 62 Visit [id number] Male of 1955 Referring Sreekanth Davies, FELRoom Number SCPR Physician Manager Ui Rey Martinez Physician Procedure Type of Study: Veins: Lower Extremities DVT Study, VENOUS DOPPLER LEG, BILATERAL. Indications for Study:Leg swelling and Pre-op. Patient Status:STAT. Study Location:Portable. Technical Quality:Technically Difficult. Risk Factors History of Disease + +----+ + !Diagnosis!Date!Comments ! + +----+ + !History/Risk !!HTN, PVD, H/o CKD, Current Smoker, PAD (Rt Fem-Pop ! !Factors: !!BPG-10/2017), Cancer (Rectum), Thrombectomy (01/2018) ! + +----+ + Procedure Note Interface, External Ris In - 05/18/2018 5:02 PM ESTATE PLANNER PV LAB - Lower Extremities DVT Study Demographics Patient Name JASWINDER RANDALL Date of Study 05/17/2018 ESTEFANIA Age 62 Visit Number [id number] Gender Male Accession Number [id number] Date of 1955 Referring JOHN Chavez Room Number SCPR Physician Manager Ui Rey Ortiz Interpreting Ananya Martinez, Physician Procedure Type of Study: Veins: Lower Extremities DVT Study, VENOUS DOPPLER LEG, BILATERAL. Indications for Study:Leg swelling and Pre-op. Patient Status:STAT. Study Location:Portable. Technical Quality:Technically Difficult. Risk Factors History of Disease + +----+ + !Diagnosis !Date!Comments ! + +----+ + !History/Risk ! !HTN, PVD, H/o CKD, Current Smoker, PAD (Rt Fem-Pop ! !Factors: ! !BPG-10/2017), Cancer (Rectum), Thrombectomy (01/2018) ! + +----+ + Impressions Right Impression 1. There is no deep venous obstruction in the common femoral, profunda femoral, femoral, popliteal, posterior tibial or peroneal veins where visualized. 2. There is no superficial venous obstruction in the great saphenous vein where visualized. 3. The right femoral-popliteal bypass graft is occluded. Left Impression 1. There is no deep venous obstruction in the common femoral, profunda femoral, femoral, popliteal, posterior tibial or peroneal veins where visualized. 2. There is no superficial venous obstruction in the great saphenous vein where visualized. Conclusions Summary Venous duplex imaging and compression of the bilateral lower extremities were performed. The veins were technically difficult to visualize due to shadowing, patient movement and patient body habitus. The bilateral venous systems were patent and compressible with no evidence of thrombus where visualized. The right femoral-popliteal bypass graft is occluded. Signature Velocities are measured in cm/s ; Diameters are measured in cm Performing Organization Address City/State/Zipcode Phone Number [facility] Electrocardiogram, 12-lead (05/17/2018 8:08 PM ESTATE PLANNER)Only the most recent of3 resultswithin the time period is included. Narrative Performed At Ventricular Rate 88 BPM GE MUSE Atrial Rate 88 BPM P-R Interval 186 ms QRS Duration 90 ms Q-T Interval 366 ms QTC Calculation(Bazett) 442 ms P [place] 58 degrees R [place] 51 degrees T [place] 56 degrees Normal sinus rhythm Normal ECG No previous ECGs available Confirmed by MD TORRES JOSEPH P ([id number]) on 05/18/2018 6:38:12 AM Procedure Note Interface, External Ris In - 05/18/2018 6:38 AM ESTATE PLANNER Ventricular Rate 88 BPM Atrial Rate 88 BPM P-R Interval 186 ms QRS Duration 90 ms Q-T Interval 366 ms QTC Calculation(Bazett) 442 ms P [place] 58 degrees R [place] 51 degrees T [place] 56 degrees Normal sinus rhythm Normal ECG No previous ECGs available Confirmed by MD TORRES JOSEPH P ([id number]) on 05/18/2018 6:38:12 AM Performing Organization Address City/[facility] Phone Number [facility] PT/aPTT (05/17/2018 6:30 PM ESTATE PLANNER)Only the most recent of2 resultswithin the time period is included. Protime 13.0 11.7 - 14.7 seconds [facility] INR 1.0 <=5.9 [facility] PTT 30.3 22.5 - 36.0 seconds [facility] Specimen Blood Narrative Performed At RECOMMENDED COUMADIN/WARFARIN INR THERAPY [facility] RANGES STANDARD DOSE: 2.0 - 3.0 Includes: PROPHYLAXIS for venous thrombosis, systemic embolization; TREATMENT for venous thrombosis and/or pulmonary embolus. HIGH RISK: Target INR is 2.5-3.5 for patients with mechanical heart valves. Performing Organization Address City/[facility] Phone Number [address] [address] CENTER Prothrombin time/INR (05/17/2018 6:30 PM ESTATE PLANNER)Only the most recent of12 resultswithin the time period is included. Protime 13.0 11.7 - 14.7 seconds [facility] INR 1.0 <=5.9 [facility] Specimen Blood Narrative Performed At RECOMMENDED COUMADIN/WARFARIN INR THERAPY [facility] RANGES STANDARD DOSE: 2.0 - 3.0 Includes: PROPHYLAXIS for venous thrombosis, systemic embolization; TREATMENT for venous thrombosis and/or pulmonary embolus. HIGH RISK: Target INR is 2.5-3.5 for patients with mechanical heart valves. Performing Organization Address City/[facility] Phone Number [address] [address] [phone] [place] Phosphorus (05/17/2018 6:08 PM ESTATE PLANNER)Only the most recent of3 resultswithin the time period is included. Phosphorus 3.0 2.3 - 4.7 mg/dL [facility] Specimen Blood Performing Organization Address [facility] Phone Number [address] [address] [phone] [place] Hepatic function panel (05/17/2018 6:08 PM ESTATE PLANNER)Only the most recent of2 resultswithin the time period is included. Protein, Total 7.1 6.0 - 8.3 gm/dL [facility] Albumin 3.9 3.5 - 5.0 g/dL [facility] Total Bilirubin 0.3 0.2 - 1.2 mg/dL [facility] Bilirubin, Direct 0.1 0.1 - 0.5 mg/dL [facility] Alkaline Phosphatase 93 40 - 150 U/L [facility] AST 16 5 - 34 U/L [facility] ALT 11 6 - 55 U/L [facility] Specimen Blood Performing Organization Address [facility] Phone Number [address] [address] [phone] [place] VASCULAR DIAGRAM -SCAN (02/17/2018 10:50 AM CDT) Narrative Performed At CARDIAC CATH REPORT - SCAN (02/17/2018 10:50 AM CDT) Narrative Performed At RHYTHM STRIP - SCAN (02/17/2018 10:50 AM CDT)Only the most recent of3 resultswithin the time period is included. Narrative Performed At IR Port-a-Cath Placement (02/16/2018 12:54 PM CDT) Narrative Performed At FINAL REPORT [facility] Right internal jugular chest port insertion History: Patient requires access for chemotherapy. Modality: Sonography and fluoroscopy. Sedation: Versed 1.5 mg and fentanyl 75 mcg given intravenously for conscious sedation.Vital signs were monitored throughout the procedure by a nurse, and remained stable. Physician intra-service time was 25 minutes. Bunch Maker Hand:Peña Zepeda MD Item Repair Manager:Jose Martin. Approach: Right internal jugular vein Estimated [...] needle into the right atrium. A 4 Occitan micropuncture sheath was placed. A subcutaneous tunnel [...] MD Report Verified Date/Time:02/16/2018 18:32:11 Reading Location: [place] [address] Angio Body Reading Room Procedure Note Interface, [...] stable. Physician intra-service time was 25 minutes. Bunch Maker Hand: Peña Zepeda MD Item Repair Manager: Jose Martin. Approach: Right internal jugular vein [...] needle into the right atrium. A 4 Occitan micropuncture sheath was placed. A subcutaneous tunnel [...] Report Verified Date/Time: 02/16/2018 18:32:11 Reading Location: [place] [address] Angio Body Reading Room Performing Organization Address City/State/Zipcode Phone Number GE RIS CBC (Hemogram only) (02/16/2018 5:26 AM CDT)Only the most recent of16 resultswithin the time period is included. WBC 6.6 3.5 - 10.5 K/L [facility] RBC 2.98 (L) 4.63 - 6.08 M/L [facility] Hemoglobin 8.9 (L) 13.7 - 17.5 GM/DL [facility] Hematocrit 28.6 (L) 40.1 - 51.0 % [facility] MCV 96.0 (H) 79.0 - 92.2 fL [facility] MCH 29.9 25.7 - 32.2 pg [facility] MCHC 31.1 (L) 32.3 - 36.5 GM/DL [facility] RDW 14.7 (H) 11.6 - 14.4 % [facility] Platelets 206 150 - 450 K/CU MM [facility] MPV 8.9 (L) 9.4 - 12.4 fL [facility] nRBC 0 0 - 0 /100 WBC [facility] Specimen Blood - Arm, Right Performing Organization Address [facility]/Zipcode Phone Number [facility] [address] [place] [address] CENTER REPORT OF PROCEDURE - ENDOSCOPY URL (02/15/2018 1:01 PM CDT) Narrative Performed At FINE NEEDLE ASPIRATE (FNA) REQUEST (02/15/2018 11:03 AM CDT) Cytology See Separate Report [facility] Specimen Fine Needle Aspirate - Liver Performing Organization Address [facility] Cent[facility]ode Phone Number [facility] [address] [place] [phone] CENTER Fine Needle Aspirate by Clinician (02/15/2018 11:03 AM CDT) Case Report Medical Cytology Report Case: [id number] [facility] Authorizing Provider:Fadi Philippe MDCollected: 02/15/2018 1103 [facility] Ordering Location: [address] Received: 02/16/2018 0959 Service Pathologist: Yas Townsend Specimen:Liver, Liver mass FNA in CRR for cytology DIAGNOSIS LIVER MASS FNA BY CLINICIAN (CYTOSPINS AND CELL BLOCK OF ASPIRATE): [facility] - POSITIVE FOR MALIGNANCY, MORPHOLOGICALLY COMPATIBLE WITH RECTAL CARCINOMA PRIMARY [facility] Signing Pathologist Direct Phone Line: [phone] COMMENT Cytospins show clusters of benign appearing hepatocytes. The cell block show predominantly hepatic parenchyma with a focal attached area of atypical glands with hyperchromatic and pleomorphic nuclei. [facility] The previous case, [id number] is reviewed and shows similar features. [facility] Intradepartmental Consultation: Noy Bailey MD has reviewed the case and agrees with the findings. CPT Code(s) 83347, 37079 [facility] CLINICAL DATA (1.3 x 0.9 cm) round mass in [facility] the left lobe of the liver, [facility] recently diagnosed with rectal cancer(see [id number]) SPECIMEN SOURCE LIVER MASS FNA [facility] GROSS DESCRIPTION 27 mls in cytorich red; 4 cytospins, cell block [facility] Collected: [id number] [facility] Received: [id number] Technical component was [facility] performed at [place], Department of [facility] Pathology, [address] [place] [address], Professional component [facility] was performed at [place], Department of [facility] Pathology, [address] [place] [address], Specimen Fine Needle Aspirate - Liver Narrative Performed At Performing Organization Address City/State/Zipcode Phone Number [address] [address] [phone] CENTER Tissue Exam (02/15/2018 10:55 AM CDT)Only the most recent of4 resultswithin the time period is included. Case Report Surgical Pathology Report Case: [id number] [facility] Authorizing Provider:Fadi Philippe MDCollected: 02/15/2018 1055 [facility] Ordering Location: [address] Received: 02/15/2018 1604 Service Pathologist: Timothy Mendoza MD Specimen:Liver, Liver Mass DIAGNOSIS LIVER MASS, ULTRASOUND-GUIDED CORE NEEDLE BIOPSY: [facility] - FRAGMENTED CORES OF BENIGN LIVER PARENCHYMA [facility] - MINIMAL STEATOSIS (LESS THAN 1%) - MINIMAL PERIPORTAL FIBROSIS - NEGATIVE FOR MALIGNANCY (SEE COMMENT) Signing Pathologist Direct Phone Line: [phone] COMMENT Clinical and radiographic [facility] correlation is recommended [facility] to determine if this represents the lesion. CPT Code(s) 61278, 92070 x 2 [facility] CLINICAL HISTORY Rectal cancer [facility] SPECIMEN SOURCE Liver mass [facility] GROSS DESCRIPTION The specimen is received in [facility] a formalin-filled container [facility] and labeled with the patient's information [...] the fragmented nature of the specimen, it [facility] is difficult to appreciate architectural distortion. There is no bile ductular proliferation or reaction seen. Special stain trichrome and reticulin is performed with appropriately reactive controls on [facility] A1 and trichrome highlights minimal periportal fibrosis; reticulin shows preserved normal hepatic trabecular architecture. SPECIAL STUDIES The following special studies were performed on this case and the interpretation is incorporated in the diagnostic report above: [facility] The following special studies were performed on this case and the interpretation is incorporated in the diagnostic report above: trichrome, reticulin. [facility] Specimen Tissue - Liver Performing Organization Address City/State/Zipcode Phone Number [address] LIMITED/LOCALIZED FOLLOW-UP (02/14/2018 10:40 AM CDT) Narrative Performed At Addendum Begins [facility] REPORT STATUS:A This exam was performed according to our departmental dose optimization program which includes automated exposure control, adjustment of the mA and/or kV according to patient size and/or use of iterative reconstructive technique. Signed: Jessica Wise MD Report Verified Date/Time:02/27/2018 08:10:53 Reading Location: [facility] Diagnostic Imaging Reading Room - [place] [address] Addendum Ends FINAL REPORT History: Liver masses COMPARISON: CT dated 02/09/2018 and an ultrasound dated 02/13/2018 DISCUSSION: The hepatic lesions were unable to be previously seen under ultrasound and therefore, the patient was sent to CT for potential biopsy under CT guidance. A office agent image was obtained prior to the biopsy procedure. The previously seen nodular foci within the liver are not well delineated on the office agent images. Some poorly seen hypodense foci are seen towards the hepatic dome. Attempted visualization was made during real-time CT fluoroscopy. However, due to the patient's breathing as well as the small size and location of the lesions within liver, no focal lesion could be localized reliably for a safe CT guided biopsy. Signed: Jessica Wise MD Report Verified Date/Time:02/14/2018 16:38:16 Reading Location: [address] Body Reading Room Procedure Note Interface, External Ris In - 02/27/2018 8:13 AM ESTATE PLANNER Addendum Begins REPORT STATUS:A This exam was performed according to our departmental dose optimization program which includes automated exposure control, adjustment of the mA and/or kV according to patient size and/or use of iterative reconstructive technique. Signed: Jessica Wise MD Report Verified Date/Time: 02/27/2018 08:10:53 Reading Location: [facility] Diagnostic Imaging Reading Room - [facility] F1 1120 Addendum Ends FINAL REPORT History: Liver masses COMPARISON: CT dated 02/09/2018 and an ultrasound dated 02/13/2018 DISCUSSION: The hepatic lesions were unable to be previously seen under ultrasound and therefore, the patient was sent to CT for potential biopsy under CT guidance. A office agent image was obtained prior to the biopsy procedure. The previously seen nodular foci within the liver are not well delineated on the office agent images. Some poorly seen hypodense foci are seen towards the hepatic dome. Attempted visualization was made during real-time CT fluoroscopy. However, due to the patient's breathing as well as the small size and location of the lesions within liver, no focal lesion could be localized reliably for a safe CT guided biopsy. Signed: Jessica Wise MD Report Verified Date/Time: 02/14/2018 16:38:16 Reading Location: [facility] C013Y CT Body Reading Room Performing Organization Address City/State/Zipcode Phone Number [place] US abdomen limited (02/13/2018 12:00 PM CDT) Narrative Performed At FINAL REPORT [place] Ultrasound of abdomen, limited INDICATION: Liver mass COMPARISON: CT dated February 09, 2018 FINDINGS: Sonographic evaluation of the liver is performed in preparation for biopsy of liver lesion seen on recent CT. However, no focal lesion is identified on ultrasound and biopsy was not performed. Signed: Joanne Diaz MD Report Verified Date/Time:02/14/2018 07:47:16 Reading Location: [facility] Radiology Reading Room Procedure Note Interface, External [...] Report Verified Date/Time: 02/14/2018 07:47:16 Reading Location: [facility] Radiology Reading Room Performing Organization Address City/State/Zipcode Phone Number [place] Venous doppler arm, left (02/11/2018 3:54 PM CDT) Ejection Fraction [facility]ACS Impressions Performed At Right Impression [facility]ART[facility] AntVoiceCKESSON CPACS NOT ORDRED Left Impression 1. There [...] Upper Extremities Veins [facility] Demographics Patient Name JASWINDER RANDALL Date of Study 02/11/2018 ESTEFANIA [id number] Age 62 Visit Number [id number] GenderMale Accession Number [id number] Date of 1955 Herman Inman Norma Number 1034 Physician SonographerAlka Bhatti InterpretingTori Moncada MD, RVT Physician [facility]I Procedure Type of Study: Veins: Upper Extremities Veins, VENOUS DOPPLER ARM, LEFT. Indications for Study:SP MIDLINE PLACEMENT/INFILTRATION and Tenderness. Patient Status:Routine. Study Location:Vascular Lab. Technical Quality:Adequate visualization. - Results were reported to:Dr. Sampson paged- no answer, Results given to ELENA Calix @ 2197. Risk Factors History of Disease + +----+ + !Diagnosis !Date!Comments ! + +----+ + !History/Risk!!HTN, PVD, H/o CKD, Current Smoker, PAD (Fem-Pop ! !Factors:!!BPG) ! + +----+ + Procedure Note Interface, External Ris In - 02/12/2018 4:10 AM CDT PV LAB - Upper Extremities Veins Demographics Patient Name JASWINDER RANDALL Date of Study 02/11/2018 ESTEFANIA Age 62 Visit Number [id number] Gender Male Accession Number [id number] Date of 1955 Referring Adrián Inman MD Room Number 1034 Physician Manager Ui Alka Bhatti Interpreting Tori Moncada MD, RVT Physician RPVI Procedure Type of Study: Veins: Upper Extremities Veins, VENOUS DOPPLER ARM, LEFT. Indications for Study:SP MIDLINE PLACEMENT/INFILTRATION and Tenderness. Patient Status:Routine. Study Location:Vascular Lab. Technical Quality:Adequate visualization. - Results were reported to:Dr. Sampson paged- no answer, Results given to ELENA Calix @ 7262. Risk Factors History of Disease + +----+ [...] are measured in cm Performing Organization Address City/[facility] Phone Number [facility] CP[facility] Iron, TIBC, % sat. (without ferritin) (02/10/2018 5:36 AM CDT) Iron 26 (L) 40 - 160 ug/dL [facility] TIBC 274 250 - 450 ug/dL [facility] Iron % Saturation 9 (L) 20 - 55 % [facility] Specimen Blood - Arm, Right Performing Organization Address City/[facility]/Zipcode Phone Number [facility] [address] [place] [address] CENTER Vitamin D, 25-Hydroxy (02/10/2018 5:36 AM CDT) Vitamin D 25-Hydroxy 10.7 6.6 - 49.9 ng/mL [facility] Specimen Blood - Arm, Right Narrative Performed At [facility] Effective 02/02/2017: Reference Range Change New: 6.6-49.9 ng/mL Previous: 13.0-47.8 ng/mL Recommended Vitamin D Target Range: 30.0-40.0 ng/mL Performing Organization Address [facility] Phone Number [address] [address] CENTER Uric acid (02/10/2018 5:36 AM CDT) Uric Acid 6.2 2.6 - 7.2 mg/dL [facility] Specimen Blood - Arm, Right Performing Organization Address [facility] Phone Number [address] [address] [phone] [place] Protein electrophoresis, serum (02/10/2018 5:36 AM CDT) Albumin Fraction 2.6 (L) 3.5 - 5.5 g/dL [facility] Alpha 1 Fraction 0.2 0.2 - 0.4 g/dL [facility] Alpha 2 Fraction 0.6 0.5 - 0.9 g/dL [facility] Beta Fraction 0.9 0.6 - 1.1 g/dL [facility] Gamma Globulin Fraction 0.7 0.7 - 1.7 g/dL [facility] Interpretation Decreased albumin, [facility] suggestive of protein [facility] CENTER loss. Pattern otherwise consistent with mild acute inflammatory response. No monoclonal bands detected. Pathologist: Lilly Harris MD [facility] (electronic signature) [facility] Protein, Total 5.0 (L) 6.0 - 8.3 gm/dL [facility] Specimen Blood - Arm, Right Performing Organization Address [facility] Phone Number [address] [address] CENTER PTH, intact (02/10/2018 5:36 AM CDT) PTH 78.6 (H) 8.5 - 72.5 pg/mL [facility] Specimen Blood - Arm, Right Performing Organization Address [facility]/Zipcode Phone Number [facility] [address], [place] [phone] [place] Ferritin (02/10/2018 5:36 AM CDT) Ferritin 36 5 - 275 ng/mL [facility] Specimen Blood - Arm, Right Performing Organization Address [facility] Phone Number [address] [address] [phone] [place] Carcinoembryonic Antigen (CEA) (02/10/2018 5:36 AM CDT) CEA, SERUM 2.6 0.0 - 5.0 ng/mL [facility] Specimen Blood - Arm, Right Performing Organization Address [facility] Phone Number [address] [phone] [place] CT abdomen/pelvis with IV contrast (02/09/2018 11:18 PM CDT) Narrative Performed At FINAL REPORT [facility] CT, CHEST, WITH CONTRAST, CT, ABDOMEN \\T\\ [...] MD Report Verified Date/Time:02/10/2018 00:28:46 Reading Location: [facility] CT Body Reading Room Procedure Note Interface, [...] Report Verified Date/Time: 02/10/2018 00:28:46 Reading Location: [facility] B1 C013Y CT Body Reading Room Performing Organization Address City/State/Zipcode Phone Number [place] CT chest with IV contrast (02/09/2018 11:18 PM CDT) Narrative Performed At FINAL REPORT [place] CT, CHEST, WITH CONTRAST, CT, ABDOMEN \\T\\ [...] Signed: JR Mychal, Tam TELLEZ Report Verified Date/Time:02/10/2018 00:28:46 Reading Location: [facility] B[address] C[address] CT Body Reading Room Procedure [...] Report Verified Date/Time: 02/10/2018 00:28:46 Reading Location: [facility] B[address] C[address] Body Reading Room Performing Organization Address City/State/Zipcode Phone Number GE RIS Protein, random urine (02/09/2018 5:43 PM CDT) Protein, Urine <7 0 - 14 mg/dL [facility] Specimen Urine - Urine, Voided Performing Organization Address [facility] Centercode Phone Number [address] [address] CENTER Prepare Leuko-Red RBC (02/08/2018 11:54 PM CDT)Only the most recent of2 resultswithin the time period is included. CROSSMATCH COMPATIBLE SAFETRACE TX Unit ABO A Pos SAFETRACE TX UNIT NUMBER [id number] [place] Status TRANSFUSED SAFETRACE [place] Blood Bank Product RED BLOOD CELLS SAFETRACE TX PRODUCT CODE [id number] [place] Specimen Other Performing Organization Address [facility] Phone Number SAFETRACE TX POC ACTIVATED CLOTTING TIME (02/08/2018 3:17 PM CDT)Only the most recent of6 resultswithin the time period is included. Activated Clotting Time 114Comment: TESTED AT sec [facility] [address] [address] Specimen Blood Performing Organization Address [facility] Centercosd Phone Number [address] [address] CENTER Transfuse Leuko-Red RBC (02/08/2018 2:23 AM CDT)Only the most recent of5 resultswithin the time period is included.REPORT OF PROCEDURE - ENDOSCOPY URL ( 02/06/2018 7:31 PM CDT) Narrative Performed At Arterial doppler leg, right (02/06/2018 10:55 AM CDT) Ejection Fraction [facility] Impressions Performed At Right Impression [facility] 1. The common femoral and profunda femoral [...] + + + + + + !Prox ELECTRICAL DESIGN ENGINEER ! !28.3! ! ! + + + + + + !Mid ELECTRICAL DESIGN ENGINEER ! !43.6!8.25 ! ! + + [...] PV LAB - Lower Extremity Arterial Duplex [facility] Demographics Patient Name JASWINDER RANDALL Date of Study 02/06/2018 ESTEFANIA [id number] Age 62 Visit Number [id number] GenderMale Accession Number [id number] [facility] 1955 [facility] Number [id number] MD Slava SonographJose Gandhi T [facility] CenterJ[facility] Roger Moncada MD, Physician RPVI Procedure Type of Study: Extremities Arteries: Lower [...] Study 02/06/2018 ESTEFANIA Age 62 Visit Number [id number] Gender Male Accession Number [id number] Date of 1955 Referring Sachin Grider Room Number [id number] Physician MD Jaciel Manager Ui Neeru Gandhi T Interpreting Tori Moncada MD, Physician RPCELSO Procedure Type of Study: Extremities Arteries: Lower [...] + + + ------+ + + !Prox ELECTRICAL DESIGN ENGINEER ! !28.3 ! ! ! + + + ------+ + + !Mid ELECTRICAL DESIGN ENGINEER ! !43.6 !8.25 ! ! + [...] + ------+ + + Performing Organization Address City/[facility]/Zipcode Phone Number [facility] CP[facility] aPTT (02/05/2018 10:36 PM CDT)Only the most recent of21 resultswithin the time period is included. PTT 44.4 (H) 22.5 - 36.0 seconds [facility] Specimen Blood Performing Organization Address [facility] Centercode Phone Number [facility] MEDICAL [address] [place] [address] CENTER CARDIAC CATH REPORT - SCAN (01/31/2018 8:10 AM CDT) Narrative Performed At POC-Glucose meter (01/26/2018 7:14 AM CDT)Only the most recent of9 resultswithin the time period is included. POC-Glucose Meter 129 (H)Comment: TESTED AT 70 - 110 mg/dL [facility] [address] [place] [id number] Specimen Blood Performing Organization Address [facility] [place] [address] [phone] [place] Platelet Aggregation: Function Screen (01/25/2018 7:34 AM CDT)Only the most recent of3 resultswithin the time period is included. Weak ADP 48 (L) 60 - 91 % [facility] Plt. Function Screen 40-49% indicates [facility] Interpretation moderate platelet [facility] dysfunction Pathologist: Buzz Urbano M.D. [facility] (electonic signature) [facility] Platelets 187 150 - 450 K/CU [facility] MM [facility] Specimen Blood - Arm, Right Performing Organization Address [facility] [place] [address] [place] Calcium, Ionized (01/23/2018 10:00 PM CDT)Only the most recent of2 resultswithin the time period is included. Calcium, Ion 1.04 (L) 1.12 - 1.27 mmol/L [facility] pH, Blood 7.41 [facility] Specimen Blood Performing Organization Address [facility]ercosd Phone Number [address] [address] [phone] [place] Potassium-Stat Lab (01/23/2018 6:34 PM CDT)Only the most recent of3 resultswithin the time period is included. Potassium 4.5 3.6 - 5.5 meq/L [facility] Specimen Blood, Arterial Performing Organization Address [facility]ercosd Phone Number [address] [place] [address] [phone] [place] Glucose-Stat Lab (01/23/2018 6:34 PM CDT)Only the most recent of3 resultswithin the time period is included. Glucose 149 (H) 70 - 110 mg/dL [facility] Specimen Blood, Arterial Performing Organization Address City/[facility]/Zipcode Phone Number [address] [address] [place] HIV-1 Antigen with HIV-1/2 Antibody (01/23/2018 6:34 PM CDT) HIV-1 Antigen with HIV 1&2 NON-REACTIVE Nonreactive [facility] Specimen Blood Performing Organization Address [facility] Centercode Phone Number [address] [address] [phone] [place] Hepatitis B surface antigen (01/23/2018 6:34 PM CDT) hepatitis B Surface Ag NON-REACTIVE Nonreactive [facility] Specimen Blood Performing Organization Address City/[facility]/Zipcode Phone Number [address] [address] [phone] [place] Hemoglobin A1c (01/23/2018 6:34 PM CDT) Hemoglobin A1C 5.5 4.3 - 6.1 % [facility] Specimen Blood Performing Organization Address City/[facility] Centercode Phone Number [address] [address] [phone] [place] Blood gas, arterial (01/23/2018 6:34 PM CDT)Only the most recent of3 resultswithin the time period is included. pH, Arterial 7.34 (L) 7.35 - 7.45 [facility] pCO2, Arterial 38 35 - 45 mmHg [facility] pO2, Arterial 92 (H) 80 - 90 mmHg [facility] O2 Sat, Arterial 97.4 (H) 96.0 - 97.0 % [facility] HCO3, Arterial 21 21 - 29 mmol/L [facility] Base Excess, Arterial -5.3 (L) -2.0 - 3.0 mmol/L [facility] Patient Temperature 34.7 C [facility] FIO2 28.0 % [facility] Specimen Blood, Arterial Performing Organization Address City/[facility] Centercode Phone Number [address] [address] [place] Sodium Na-Stat Lab (11/17/2017 10:27 AM CDT)Only the most recent of2 resultswithin the time period is included. Sodium 137 135 - 148 meq/L [facility] Specimen Blood, Arterial Narrative Performed At Only if arterial line in place and/or patient [facility] on ventilator Performing Organization Address City/[facility]d Phone Number [address] [address] [phone] [place] HGB/HCT (H&H)-Stat Lab (11/17/2017 10:27 AM CDT)Only the most recent of2 resultswithin the time period is included. Hemoglobin 14.2 13.0 - 16.8 g/dL [facility] Hematocrit 42.0 40.0 - 50.0 % [facility] Specimen Blood, Arterial Narrative Performed At Only if arterial line in place and/or patient [facility] on ventilator Performing Organization Address [facility] Centercode Phone Number [address] [address] [phone] [place] Urinalysis w/ Microscopic (11/17/2017 5:39 AM CDT) Color, UA Light Yellow [facility] Clarity, UA Clear [facility] Specific [place], UA 1.009 1.001 - 1.035 [facility] pH, UA 6.0 5.0 - 8.0 [facility] Protein, UA Negative Negative [facility] Glucose, UA Negative Negative [facility] Ketones, UA Negative Negative [facility] Bilirubin, UA Negative Negative [facility] Blood, UA Negative Negative [facility] Nitrite, UA Negative Negative [facility] Leukocytes, UA Negative Negative [facility] Urobilinogen, UA 0.2 0.2 - 1.0 mg/dL [facility] RBC, UA 1 /HPF [facility] WBC, UA <1 /HPF [facility] Specimen Source Urine, Voided [facility] Specimen Urine - Urine, Voided Performing Organization Address City/State/Zipcode Phone Number [facility] [address] [place] [address] CENTER Vein Mapping Legs Bilateral (11/17/2017 5:15 AM CDT) Ejection Fraction [facility] Impressions Performed At Right Impression [facility] 1. There [...] PV LAB - Lower Extremities Vein Mapping [facility] Demographics Patient Name JASWINDER RANDALL Date of Study11/17/2017 [id number] Visit Number [id number] Gender Male Accession Number [id number] Date of Birth1955 [facility] [id number] Physician Becky Moncada MD, [place] PhysicianRPVI Procedure Type of Study: Veins: Lower [...] of Study 11/17/2017 Age 62 Visit Number [id number] Gender Male Accession Number [id number] Date of 1955 Referring [facility] Room Number [id number] Physician Manager Ui Rey Wetzel Interpreting Tori Moncada MD, [facility] Physician RPVI Procedure Type of Study: Veins: [...] Performing Organization Address City/State/Zipcode Phone Number [facility] after 06/02/2017 Insurance Payer Benefit Plan / Group Subscriber ID Type Phone Address MEDICARE MEDICARE PART A xxxxxxxxxxx Medicare Advance Directives For more information, please contact:[address] [phone] Code Status Date Activated Date Inactivated Comments Full Code 05/18/2018 6:21 PM This code status was determined by: Patient Full Code 05/17/2018 7:33 PM 05/18/2018 6:21 PM This code status was determined by: Patient Full Code 05/17/2018 5:36 PM 05/17/2018 7:33 PM This code status was determined by: Patient Full Code 02/05/2018 9:55 PM 02/16/2018 4:31 PM This code status was determined by: Patient Full Code 01/23/2018 9:46 PM 01/28/2018 6:44 PM This code status was determined by: Patient Name Relationship Healthcare Agent Relationship Phone ReederArmando martinez Friend Primary healthcare agent [phone] Manuel Stewart Relative First alternate healthcare agent [phone] KrisCalvin levy Friend Second alternate healthcare agent [phone]
--- OUTSIDE RECORDS SUMMARY | 2018-06-03 01:25 | XMS REPORT ---
:1955 [facility] [address] [place] [address] Care Team Providers Name Role Phone BRANDEN DAVIS Unavailable Unavailable RACHELLE CABEZAS Unavailable Unavailable THELMA RUIZ Unavailable Unavailable HUMZA OCONNOR Unavailable Unavailable Problems This patient has no known problems. Allergies, Adverse Reactions, Alerts This patient has no known allergies or adverse reactions. Medications This patient has no known medications. Results Test Description Test Time Test Comments Text Results Atomic Results Result Comments COMPREHENSIVE METABOLIC PANEL 2018-05-29 07:39:00 Test Item Value Reference Range Comments TOTAL PROTEIN (BEAKER) (test 5.9 gm/dL 6.0-8.3 qsup=333) ALBUMIN (BEAKER) (test 3.1 g/dL 3.5-5.0 rcyv=7957) ALKALINE PHOSPHATASE 61 U/L 40-150 (BEAKER) (test kkvt=015) BILIRUBIN TOTAL (BEAKER) 0.2 mg/dL 0.2-1.2 (test spyo=735) SODIUM (BEAKER) (test 139 meq/L 136-145 jfpd=166) POTASSIUM (BEAKER) (test 4.7 meq/L 3.5-5.1 egpy=639) CHLORIDE (BEAKER) (test 109 meq/L 98-107 trfl=780) CO2 (BEAKER) (test rnpg=764) 24 meq/L 22-29 BLOOD UREA NITROGEN (BEAKER) 21 mg/dL 7-21 (test ngta=190) CREATININE (BEAKER) (test 1.61 mg/dL 0.57-1.25 zdhy=735) GLUCOSE RANDOM (BEAKER) 101 mg/dL 70-105 (test lorh=462) CALCIUM (BEAKER) (test 8.4 mg/dL 8.4-10.2 fisk=637) AST (SGOT) (BEAKER) (test 12 U/L 5-34 jcwp=186) ALT (SGPT) (BEAKER) (test 6 U/L 6-55 mear=741) EGFR (BEAKER) (test 44 mL/min/1.73 sq m ESTIMATED GFR IS NOT tiai=9488) ACCURATE CREATININE CLEARANCE IN PREDICTING GLOMERULAR FILTRATION RATE. ESTIMATED GFR IS NOT APPLICABLE FOR DIALYSIS PATIENTS. CBC W/PLT COUNT & AUTO [id number] 06:16:00 Test Item Value Reference Range Comments WHITE BLOOD CELL COUNT (BEAKER) (test mzad=121) 6.3 K/ L 3.5-10.5 RED BLOOD CELL COUNT (BEAKER) (test nbzm=993) 3.55 M/ L 4.63-6.08 HEMOGLOBIN (BEAKER) (test jwpc=943) 10.5 GM/DL 13.7-17.5 HEMATOCRIT (BEAKER) (test zoqc=260) 32.7 % 40.1-51.0 MEAN CORPUSCULAR VOLUME (BEAKER) (test jcqr=212) 92.1 fL 79.0-92.2 MEAN CORPUSCULAR HEMOGLOBIN (BEAKER) (test 29.6 pg 25.7-32.2 hojd=300) MEAN CORPUSCULAR HEMOGLOBIN CONC (BEAKER) (test 32.1 GM/DL 32.3-36.5 xawp=671) RED CELL DISTRIBUTION WIDTH (BEAKER) (test 14.2 % 11.6-14.4 rlam=141) PLATELET COUNT (BEAKER) (test puns=634) 363 K/CU MM 150-450 MEAN PLATELET VOLUME (BEAKER) (test dbbf=882) 8.6 fL 9.4-12.4 NUCLEATED RED BLOOD CELLS (BEAKER) (test 0 /100 WBC 0-0 zwgp=614) NEUTROPHILS RELATIVE PERCENT (BEAKER) (test 73 % htgv=245) LYMPHOCYTES RELATIVE PERCENT (BEAKER) (test 20 % vbse=313) MONOCYTES RELATIVE PERCENT (BEAKER) (test 5 % xbkc=121) EOSINOPHILS RELATIVE PERCENT (BEAKER) (test 2 % iwur=035) BASOPHILS RELATIVE PERCENT (BEAKER) (test 1 % kwfb=757) NEUTROPHILS ABSOLUTE COUNT (BEAKER) (test 4.55 K/ L 1.78-5.38 lgri=300) LYMPHOCYTES ABSOLUTE COUNT (BEAKER) (test 1.24 K/ L 1.32-3.57 bbvp=286) MONOCYTES ABSOLUTE COUNT (BEAKER) (test 0.31 K/ L 0.30-0.82 qcbj=184) EOSINOPHILS ABSOLUTE COUNT (BEAKER) (test 0.13 K/ L 0.04-0.54 pmyp=408) BASOPHILS ABSOLUTE COUNT (BEAKER) (test 0.03 K/ L 0.01-0.08 usvl=905) IMMATURE GRANULOCYTES-RELATIVE PERCENT (BEAKER) 0 % 0-1 (test cmtn=9973) COMPREHENSIVE METABOLIC [id number] 06:45:00 Test Item Value Reference Range Comments TOTAL PROTEIN (BEAKER) 6.2 gm/dL 6.0-8.3 (test kcjo=740) ALBUMIN (BEAKER) (test 3.2 g/dL 3.5-5.0 ghys=0919) ALKALINE PHOSPHATASE 68 U/L 40-150 (BEAKER) (test nvac=373) BILIRUBIN TOTAL (BEAKER) 0.3 mg/dL 0.2-1.2 (test mavg=910) SODIUM (BEAKER) (test 140 meq/L 136-145 jgvo=007) POTASSIUM (BEAKER) (test 4.7 meq/L 3.5-5.1 wxlc=960) CHLORIDE (BEAKER) (test 109 meq/L 98-107 vlws=927) CO2 (BEAKER) (test 25 meq/L 22-29 hchl=759) BLOOD UREA NITROGEN 20 mg/dL 7-21 (BEAKER) (test ivzo=347) CREATININE (BEAKER) (test 1.71 mg/dL 0.57-1.25 uebq=340) GLUCOSE RANDOM (BEAKER) 104 mg/dL 70-105 (test dira=204) CALCIUM (BEAKER) (test 8.4 mg/dL 8.4-10.2 pqft=557) AST (SGOT) (BEAKER) (test 11 U/L 5-34 cwro=792) ALT (SGPT) (BEAKER) (test 8 U/L 6-55 rtzj=633) EGFR (BEAKER) (test 41 mL/min/1.73 sq m ESTIMATED GFR IS NOT ezkx=1636) ACCURATE CREATININE CLEARANCE IN PREDICTING GLOMERULAR FILTRATION RATE. ESTIMATED GFR IS NOT APPLICABLE FOR DIALYSIS PATIENTS. CBC W/PLT COUNT & AUTO [id number] 05:36:00 Test Item Value Reference Range Comments WHITE BLOOD CELL COUNT (BEAKER) (test rmcs=479) 7.0 K/ L 3.5-10.5 RED BLOOD CELL COUNT (BEAKER) (test pgtx=200) 3.55 M/ L 4.63-6.08 HEMOGLOBIN (BEAKER) (test uhwv=439) 10.3 GM/DL 13.7-17.5 HEMATOCRIT (BEAKER) (test ahgk=794) 33.1 % 40.1-51.0 MEAN CORPUSCULAR VOLUME (BEAKER) (test eibt=827) 93.2 fL 79.0-92.2 MEAN CORPUSCULAR HEMOGLOBIN (BEAKER) (test 29.0 pg 25.7-32.2 ttxn=418) MEAN CORPUSCULAR HEMOGLOBIN CONC (BEAKER) (test 31.1 GM/DL 32.3-36.5 jcuz=253) RED CELL DISTRIBUTION WIDTH (BEAKER) (test 14.2 % 11.6-14.4 ivmp=546) PLATELET COUNT (BEAKER) (test qqrp=707) 409 K/CU MM 150-450 MEAN PLATELET VOLUME (BEAKER) (test cxcz=087) 8.7 fL 9.4-12.4 NUCLEATED RED BLOOD CELLS (BEAKER) (test 0 /100 WBC 0-0 skwj=539) NEUTROPHILS RELATIVE PERCENT (BEAKER) (test 69 % vdft=081) LYMPHOCYTES RELATIVE PERCENT (BEAKER) (test 21 % jcfy=737) MONOCYTES RELATIVE PERCENT (BEAKER) (test 7 % oryl=164) EOSINOPHILS RELATIVE PERCENT (BEAKER) (test 2 % vsxv=252) BASOPHILS RELATIVE PERCENT (BEAKER) (test 1 % btki=574) NEUTROPHILS ABSOLUTE COUNT (BEAKER) (test 4.87 K/ L 1.78-5.38 taxs=130) LYMPHOCYTES ABSOLUTE COUNT (BEAKER) (test 1.46 K/ L 1.32-3.57 jdga=661) MONOCYTES ABSOLUTE COUNT (BEAKER) (test 0.47 K/ L 0.30-0.82 htog=172) EOSINOPHILS ABSOLUTE COUNT (BEAKER) (test 0.16 K/ L 0.04-0.54 xgus=723) BASOPHILS ABSOLUTE COUNT (BEAKER) (test 0.04 K/ L 0.01-0.08 vrnm=902) IMMATURE GRANULOCYTES-RELATIVE PERCENT (BEAKER) 0 % 0-1 (test eqfb=6056) CBC W/PLT COUNT & AUTO [id number] 06:02:00 Test Item Value Reference Range Comments WHITE BLOOD CELL COUNT (BEAKER) (test eoub=068) 7.8 K/ L 3.5-10.5 RED BLOOD CELL COUNT (BEAKER) (test hzcu=513) 3.25 M/ L 4.63-6.08 HEMOGLOBIN (BEAKER) (test wmjw=007) 9.6 GM/DL 13.7-17.5 HEMATOCRIT (BEAKER) (test fxsl=248) 30.2 % 40.1-51.0 MEAN CORPUSCULAR VOLUME (BEAKER) (test ksdw=275) 92.9 fL 79.0-92.2 MEAN CORPUSCULAR HEMOGLOBIN (BEAKER) (test 29.5 pg 25.7-32.2 bldu=665) MEAN CORPUSCULAR HEMOGLOBIN CONC (BEAKER) (test 31.8 GM/DL 32.3-36.5 xevr=332) RED CELL DISTRIBUTION WIDTH (BEAKER) (test 14.3 % 11.6-14.4 khkl=346) PLATELET COUNT (BEAKER) (test havp=529) 344 K/CU MM 150-450 MEAN PLATELET VOLUME (BEAKER) (test tjtv=068) 8.7 fL 9.4-12.4 NUCLEATED RED BLOOD CELLS (BEAKER) (test 0 /100 WBC 0-0 snoi=238) NEUTROPHILS RELATIVE PERCENT (BEAKER) (test 66 % qvng=414) LYMPHOCYTES RELATIVE PERCENT (BEAKER) (test 19 % yrxx=843) MONOCYTES RELATIVE PERCENT (BEAKER) (test 8 % llof=272) EOSINOPHILS RELATIVE PERCENT (BEAKER) (test 6 % kawg=205) BASOPHILS RELATIVE PERCENT (BEAKER) (test 1 % tyjh=385) NEUTROPHILS ABSOLUTE COUNT (BEAKER) (test 5.20 K/ L 1.78-5.38 qenh=168) LYMPHOCYTES ABSOLUTE COUNT (BEAKER) (test 1.51 K/ L 1.32-3.57 tkuy=265) MONOCYTES ABSOLUTE COUNT (BEAKER) (test 0.61 K/ L 0.30-0.82 amhm=199) EOSINOPHILS ABSOLUTE COUNT (BEAKER) (test 0.43 K/ L 0.04-0.54 yvpy=983) BASOPHILS ABSOLUTE COUNT (BEAKER) (test 0.05 K/ L 0.01-0.08 rmyo=574) IMMATURE GRANULOCYTES-RELATIVE PERCENT (BEAKER) 0 % 0-1 (test uxbw=0544) CBC W/PLT COUNT & AUTO [id number] 04:40:00 Test Item Value Reference Range Comments WHITE BLOOD CELL COUNT (BEAKER) (test aeou=068) 7.7 K/ L 3.5-10.5 RED BLOOD CELL COUNT (BEAKER) (test vnhw=383) 3.27 M/ L 4.63-6.08 HEMOGLOBIN (BEAKER) (test gkix=708) 9.7 GM/DL 13.7-17.5 HEMATOCRIT (BEAKER) (test gppz=291) 30.6 % 40.1-51.0 MEAN CORPUSCULAR VOLUME (BEAKER) (test xcri=160) 93.6 fL 79.0-92.2 MEAN CORPUSCULAR HEMOGLOBIN (BEAKER) (test 29.7 pg 25.7-32.2 zafu=296) MEAN CORPUSCULAR HEMOGLOBIN CONC (BEAKER) (test 31.7 GM/DL 32.3-36.5 oovj=379) RED CELL DISTRIBUTION WIDTH (BEAKER) (test 14.4 % 11.6-14.4 span=746) PLATELET COUNT (BEAKER) (test jdry=398) 329 K/CU MM 150-450 MEAN PLATELET VOLUME (BEAKER) (test lgtp=588) 8.5 fL 9.4-12.4 NUCLEATED RED BLOOD CELLS (BEAKER) (test 0 /100 WBC 0-0 vvcu=823) NEUTROPHILS RELATIVE PERCENT (BEAKER) (test 64 % adqm=945) LYMPHOCYTES RELATIVE PERCENT (BEAKER) (test 21 % mfzs=448) MONOCYTES RELATIVE PERCENT (BEAKER) (test 10 % egif=138) EOSINOPHILS RELATIVE PERCENT (BEAKER) (test 5 % hwbu=447) BASOPHILS RELATIVE PERCENT (BEAKER) (test 1 % hobk=129) NEUTROPHILS ABSOLUTE COUNT (BEAKER) (test 4.88 K/ L 1.78-5.38 ucya=818) LYMPHOCYTES ABSOLUTE COUNT (BEAKER) (test 1.60 K/ L 1.32-3.57 ccxn=515) MONOCYTES ABSOLUTE COUNT (BEAKER) (test 0.74 K/ L 0.30-0.82 ahtg=087) EOSINOPHILS ABSOLUTE COUNT (BEAKER) (test 0.37 K/ L 0.04-0.54 khdb=796) BASOPHILS ABSOLUTE COUNT (BEAKER) (test 0.05 K/ L 0.01-0.08 klht=075) IMMATURE GRANULOCYTES-RELATIVE PERCENT (BEAKER) 0 % 0-1 (test iqfm=5827) [id number] 06:27:00 Test Item Value Reference Range Comments MAGNESIUM (BEAKER) (test 2.2 mg/dL 1.6-2.6 Specimen slightly hemolyzed bjbf=656) BASIC METABOLIC [id number] 06:27:00 Test Item Value Reference Range Comments SODIUM (BEAKER) (test 142 meq/L 136-145 khhe=434) POTASSIUM (BEAKER) (test 4.6 meq/L 3.5-5.1 Specimen slightly pddg=599) hemolyzed CHLORIDE (BEAKER) (test 111 meq/L 98-107 yfqk=345) CO2 (BEAKER) (test 24 meq/L 22-29 qovy=956) BLOOD UREA NITROGEN 14 mg/dL 7-21 (BEAKER) (test zpok=692) CREATININE (BEAKER) (test 1.63 mg/dL 0.57-1.25 Specimen slightly pfax=047) hemolyzed GLUCOSE RANDOM (BEAKER) 102 mg/dL 70-105 (test mdhj=084) CALCIUM (BEAKER) (test 8.7 mg/dL 8.4-10.2 kkvb=143) EGFR (BEAKER) (test 43 mL/min/1.73 sq m ESTIMATED GFR IS NOT sdci=0164) ACCURATE CREATININE CLEARANCE IN PREDICTING GLOMERULAR FILTRATION RATE. ESTIMATED GFR IS NOT APPLICABLE FOR DIALYSIS PATIENTS. CBC W/PLT COUNT & AUTO [id number] 06:07:00 Test Item Value Reference Range Comments WHITE BLOOD CELL COUNT (BEAKER) (test jotb=515) 7.2 K/ L 3.5-10.5 RED BLOOD CELL COUNT (BEAKER) (test xmni=765) 3.28 M/ L 4.63-6.08 HEMOGLOBIN (BEAKER) (test lkes=070) 9.6 GM/DL 13.7-17.5 HEMATOCRIT (BEAKER) (test mmdi=282) 30.1 % 40.1-51.0 MEAN CORPUSCULAR VOLUME (BEAKER) (test nufj=975) 91.8 fL 79.0-92.2 MEAN CORPUSCULAR HEMOGLOBIN (BEAKER) (test 29.3 pg 25.7-32.2 jigs=344) MEAN CORPUSCULAR HEMOGLOBIN CONC (BEAKER) (test 31.9 GM/DL 32.3-36.5 wrzc=521) RED CELL DISTRIBUTION WIDTH (BEAKER) (test 14.4 % 11.6-14.4 vsfj=941) PLATELET COUNT (BEAKER) (test xxyw=846) 309 K/CU MM 150-450 MEAN PLATELET VOLUME (BEAKER) (test fiib=745) 8.8 fL 9.4-12.4 NUCLEATED RED BLOOD CELLS (BEAKER) (test 0 /100 WBC 0-0 bsvv=104) NEUTROPHILS RELATIVE PERCENT (BEAKER) (test 64 % htnq=859) LYMPHOCYTES RELATIVE PERCENT (BEAKER) (test 22 % vrcw=127) MONOCYTES RELATIVE PERCENT (BEAKER) (test 9 % beok=762) EOSINOPHILS RELATIVE PERCENT (BEAKER) (test 4 % gxdk=500) BASOPHILS RELATIVE PERCENT (BEAKER) (test 1 % npdp=758) NEUTROPHILS ABSOLUTE COUNT (BEAKER) (test 4.63 K/ L 1.78-5.38 gfee=690) LYMPHOCYTES ABSOLUTE COUNT (BEAKER) (test 1.57 K/ L 1.32-3.57 cdyt=073) MONOCYTES ABSOLUTE COUNT (BEAKER) (test 0.63 K/ L 0.30-0.82 etxo=488) EOSINOPHILS ABSOLUTE COUNT (BEAKER) (test 0.29 K/ L 0.04-0.54 jaln=826) BASOPHILS ABSOLUTE COUNT (BEAKER) (test 0.04 K/ L 0.01-0.08 ejxr=658) IMMATURE GRANULOCYTES-RELATIVE PERCENT (BEAKER) 1 % 0-1 (test cdnr=4005) [id number] 13:12:00 Test Item Value Reference Range Comments MAGNESIUM (BEAKER) (test 2.0 mg/dL 1.6-2.6 Specimen slightly hemolyzed qkup=840) BASIC METABOLIC [id number] 13:12:00 Test Item Value Reference Range Comments SODIUM (BEAKER) (test 140 meq/L 136-145 cpws=727) POTASSIUM (BEAKER) (test 4.3 meq/L 3.5-5.1 Specimen slightly gwxg=842) hemolyzed CHLORIDE (BEAKER) (test 107 meq/L 98-107 sadm=419) CO2 (BEAKER) (test 26 meq/L 22-29 xtzf=234) BLOOD UREA NITROGEN 16 mg/dL 7-21 (BEAKER) (test wubu=342) CREATININE (BEAKER) (test 1.70 mg/dL 0.57-1.25 Specimen slightly vwhk=869) hemolyzed GLUCOSE RANDOM (BEAKER) 95 mg/dL 70-105 (test jjvo=685) CALCIUM (BEAKER) (test 9.0 mg/dL 8.4-10.2 giak=745) EGFR (BEAKER) (test 41 mL/min/1.73 sq m ESTIMATED GFR IS NOT fscr=7167) ACCURATE CREATININE CLEARANCE IN PREDICTING GLOMERULAR FILTRATION RATE. ESTIMATED GFR IS NOT APPLICABLE FOR DIALYSIS PATIENTS. CBC W/PLT COUNT & AUTO [id number] 12:57:00 Test Item Value Reference Range Comments WHITE BLOOD CELL COUNT (BEAKER) (test cnif=084) 7.8 K/ L 3.5-10.5 RED BLOOD CELL COUNT (BEAKER) (test rwod=847) 3.61 M/ L 4.63-6.08 HEMOGLOBIN (BEAKER) (test jrml=650) 10.7 GM/DL 13.7-17.5 HEMATOCRIT (BEAKER) (test drce=898) 33.6 % 40.1-51.0 MEAN CORPUSCULAR VOLUME (BEAKER) (test dsth=621) 93.1 fL 79.0-92.2 MEAN CORPUSCULAR HEMOGLOBIN (BEAKER) (test 29.6 pg 25.7-32.2 gzgt=268) MEAN CORPUSCULAR HEMOGLOBIN CONC (BEAKER) (test 31.8 GM/DL 32.3-36.5 chuw=814) RED CELL DISTRIBUTION WIDTH (BEAKER) (test 14.5 % 11.6-14.4 tczu=728) PLATELET COUNT (BEAKER) (test bgih=159) 306 K/CU MM 150-450 MEAN PLATELET VOLUME (BEAKER) (test byxr=066) 8.7 fL 9.4-12.4 NUCLEATED RED BLOOD CELLS (BEAKER) (test 0 /100 WBC 0-0 cvct=901) NEUTROPHILS RELATIVE PERCENT (BEAKER) (test 65 % fwhv=333) LYMPHOCYTES RELATIVE PERCENT (BEAKER) (test 20 % umoj=004) MONOCYTES RELATIVE PERCENT (BEAKER) (test 11 % jnss=345) EOSINOPHILS RELATIVE PERCENT (BEAKER) (test 4 % iqgu=409) BASOPHILS RELATIVE PERCENT (BEAKER) (test 0 % llew=462) NEUTROPHILS ABSOLUTE COUNT (BEAKER) (test 5.06 K/ L 1.78-5.38 fxrf=265) LYMPHOCYTES ABSOLUTE COUNT (BEAKER) (test 1.55 K/ L 1.32-3.57 ynoh=422) MONOCYTES ABSOLUTE COUNT (BEAKER) (test 0.82 K/ L 0.30-0.82 vctm=627) EOSINOPHILS ABSOLUTE COUNT (BEAKER) (test 0.29 K/ L 0.04-0.54 sion=137) BASOPHILS ABSOLUTE COUNT (BEAKER) (test 0.03 K/ L 0.01-0.08 vuek=776) IMMATURE GRANULOCYTES-RELATIVE PERCENT (BEAKER) 0 % 0-1 (test mbxs=8692) [id number] 06:25:00 Test Item Value Reference Range Comments MAGNESIUM (BEAKER) (test hjwe=420) 2.0 mg/dL 1.6-2.6 BASIC METABOLIC [id number] 06:25:00 Test Item Value Reference Range Comments SODIUM (BEAKER) (test 141 meq/L 136-145 innn=850) POTASSIUM (BEAKER) (test 4.3 meq/L 3.5-5.1 veyq=424) CHLORIDE (BEAKER) (test 109 meq/L 98-107 nflp=277) CO2 (BEAKER) (test 24 meq/L 22-29 mizw=015) BLOOD UREA NITROGEN 18 mg/dL 7-21 (BEAKER) (test moyd=976) CREATININE (BEAKER) (test 1.81 mg/dL 0.57-1.25 tibh=923) GLUCOSE RANDOM (BEAKER) 110 mg/dL 70-105 (test xbzs=957) CALCIUM (BEAKER) (test 8.7 mg/dL 8.4-10.2 fdjg=564) EGFR (BEAKER) (test 38 mL/min/1.73 sq m ESTIMATED GFR IS NOT iqsi=9750) ACCURATE CREATININE CLEARANCE IN PREDICTING GLOMERULAR FILTRATION RATE. ESTIMATED GFR IS NOT APPLICABLE FOR DIALYSIS PATIENTS. CBC W/PLT COUNT & AUTO [id number] 05:20:00 Test Item Value Reference Range Comments WHITE BLOOD CELL COUNT (BEAKER) (test usez=117) 7.8 K/ L 3.5-10.5 RED BLOOD CELL COUNT (BEAKER) (test qmuy=168) 3.59 M/ L 4.63-6.08 HEMOGLOBIN (BEAKER) (test izez=275) 10.7 GM/DL 13.7-17.5 HEMATOCRIT (BEAKER) (test auih=852) 32.9 % 40.1-51.0 MEAN CORPUSCULAR VOLUME (BEAKER) (test xbsq=107) 91.6 fL 79.0-92.2 MEAN CORPUSCULAR HEMOGLOBIN (BEAKER) (test 29.8 pg 25.7-32.2 zhkv=408) MEAN CORPUSCULAR HEMOGLOBIN CONC (BEAKER) (test 32.5 GM/DL 32.3-36.5 bjyg=064) RED CELL DISTRIBUTION WIDTH (BEAKER) (test 14.3 % 11.6-14.4 obzd=618) PLATELET COUNT (BEAKER) (test ngxn=771) 278 K/CU MM 150-450 MEAN PLATELET VOLUME (BEAKER) (test jrme=337) 9.0 fL 9.4-12.4 NUCLEATED RED BLOOD CELLS (BEAKER) (test 0 /100 WBC 0-0 fsbf=000) NEUTROPHILS RELATIVE PERCENT (BEAKER) (test 69 % sahf=406) LYMPHOCYTES RELATIVE PERCENT (BEAKER) (test 16 % vpvj=736) MONOCYTES RELATIVE PERCENT (BEAKER) (test 10 % ipys=705) EOSINOPHILS RELATIVE PERCENT (BEAKER) (test 4 % nreo=714) BASOPHILS RELATIVE PERCENT (BEAKER) (test 0 % lofd=088) NEUTROPHILS ABSOLUTE COUNT (BEAKER) (test 5.37 K/ L 1.78-5.38 ufph=683) LYMPHOCYTES ABSOLUTE COUNT (BEAKER) (test 1.25 K/ L 1.32-3.57 fztm=093) MONOCYTES ABSOLUTE COUNT (BEAKER) (test 0.77 K/ L 0.30-0.82 ussj=484) EOSINOPHILS ABSOLUTE COUNT (BEAKER) (test 0.32 K/ L 0.04-0.54 prof=688) BASOPHILS ABSOLUTE COUNT (BEAKER) (test 0.03 K/ L 0.01-0.08 ovjq=570) IMMATURE GRANULOCYTES-RELATIVE PERCENT (BEAKER) 1 % 0-1 (test yksh=8366) HEMOGLOBIN AND [id number] 17:07:00 Test Item Value Reference Range Comments HEMOGLOBIN (BEAKER) (test uudv=150) 11.2 GM/DL 13.7-17.5 HEMATOCRIT (BEAKER) (test ksxx=711) 33.7 % 40.1-51.0 [id number] 12:56:00 Test Item Value Reference Range Comments MAGNESIUM (BEAKER) (test qmrw=228) 1.9 mg/dL 1.6-2.6 BASIC METABOLIC [id number] 12:56:00 Test Item Value Reference Range Comments SODIUM (BEAKER) (test 139 meq/L 136-145 cmuj=276) POTASSIUM (BEAKER) (test 4.1 meq/L 3.5-5.1 kogu=271) CHLORIDE (BEAKER) (test 105 meq/L 98-107 gfov=684) CO2 (BEAKER) (test 23 meq/L 22-29 gjom=092) BLOOD UREA NITROGEN 17 mg/dL 7-21 (BEAKER) (test dwls=860) CREATININE (BEAKER) (test 1.80 mg/dL 0.57-1.25 aooa=149) GLUCOSE RANDOM (BEAKER) 87 mg/dL 70-105 (test xyyi=369) CALCIUM (BEAKER) (test 9.0 mg/dL 8.4-10.2 qzlz=171) EGFR (BEAKER) (test 38 mL/min/1.73 sq m ESTIMATED GFR IS NOT vhfg=0579) ACCURATE CREATININE CLEARANCE IN PREDICTING GLOMERULAR FILTRATION RATE. ESTIMATED GFR IS NOT APPLICABLE FOR DIALYSIS PATIENTS. CBC W/PLT COUNT & AUTO [id number] 12:40:00 Test Item Value Reference Range Comments WHITE BLOOD CELL COUNT (BEAKER) (test tzod=948) 8.4 K/ L 3.5-10.5 RED BLOOD CELL COUNT (BEAKER) (test zrkt=959) 3.83 M/ L 4.63-6.08 HEMOGLOBIN (BEAKER) (test zbub=437) 11.3 GM/DL 13.7-17.5 HEMATOCRIT (BEAKER) (test bgan=602) 35.6 % 40.1-51.0 MEAN CORPUSCULAR VOLUME (BEAKER) (test cgun=893) 93.0 fL 79.0-92.2 MEAN CORPUSCULAR HEMOGLOBIN (BEAKER) (test 29.5 pg 25.7-32.2 bawk=085) MEAN CORPUSCULAR HEMOGLOBIN CONC (BEAKER) (test 31.7 GM/DL 32.3-36.5 feoy=937) RED CELL DISTRIBUTION WIDTH (BEAKER) (test 14.6 % 11.6-14.4 gruz=063) PLATELET COUNT (BEAKER) (test wjzk=187) 302 K/CU MM 150-450 MEAN PLATELET VOLUME (BEAKER) (test cceb=182) 8.7 fL 9.4-12.4 NUCLEATED RED BLOOD CELLS (BEAKER) (test 0 /100 WBC 0-0 ojkv=239) NEUTROPHILS RELATIVE PERCENT (BEAKER) (test 71 % nnah=340) LYMPHOCYTES RELATIVE PERCENT (BEAKER) (test 17 % omlw=436) MONOCYTES RELATIVE PERCENT (BEAKER) (test 8 % mppr=323) EOSINOPHILS RELATIVE PERCENT (BEAKER) (test 3 % lxmr=780) BASOPHILS RELATIVE PERCENT (BEAKER) (test 0 % plhu=841) NEUTROPHILS ABSOLUTE COUNT (BEAKER) (test 6.02 K/ L 1.78-5.38 miqe=718) LYMPHOCYTES ABSOLUTE COUNT (BEAKER) (test 1.40 K/ L 1.32-3.57 txbn=789) MONOCYTES ABSOLUTE COUNT (BEAKER) (test 0.68 K/ L 0.30-0.82 acws=580) EOSINOPHILS ABSOLUTE COUNT (BEAKER) (test 0.27 K/ L 0.04-0.54 weit=800) BASOPHILS ABSOLUTE COUNT (BEAKER) (test 0.03 K/ L 0.01-0.08 hyhj=243) IMMATURE GRANULOCYTES-RELATIVE PERCENT (BEAKER) 0 % 0-1 (test cght=3349) BASIC METABOLIC [id number] 05:19:00 Test Item Value Reference Range Comments SODIUM (BEAKER) (test 135 meq/L 136-145 fnsz=036) POTASSIUM (BEAKER) (test 4.0 meq/L 3.5-5.1 cybb=960) CHLORIDE (BEAKER) (test 107 meq/L 98-107 wgxp=777) CO2 (BEAKER) (test 22 meq/L 22-29 dakv=282) BLOOD UREA NITROGEN 17 mg/dL 7-21 (BEAKER) (test ybwn=005) CREATININE (BEAKER) (test 1.98 mg/dL 0.57-1.25 swcc=690) GLUCOSE RANDOM (BEAKER) 125 mg/dL 70-105 (test lyek=014) CALCIUM (BEAKER) (test 8.2 mg/dL 8.4-10.2 qfjq=898) EGFR (BEAKER) (test 34 mL/min/1.73 sq m ESTIMATED GFR IS NOT lmfz=2922) ACCURATE CREATININE CLEARANCE IN PREDICTING GLOMERULAR FILTRATION RATE. ESTIMATED GFR IS NOT APPLICABLE FOR DIALYSIS PATIENTS. BASIC METABOLIC [id number] 07:26:00 Test Item Value Reference Range Comments SODIUM (BEAKER) (test 133 meq/L 136-145 pxlx=683) POTASSIUM (BEAKER) (test 4.0 meq/L 3.5-5.1 uvzr=155) CHLORIDE (BEAKER) (test 102 meq/L 98-107 bgdp=454) CO2 (BEAKER) (test 24 meq/L 22-29 pywv=236) BLOOD UREA NITROGEN 13 mg/dL 7-21 (BEAKER) (test rvha=390) CREATININE (BEAKER) (test 2.04 mg/dL 0.57-1.25 nxky=882) GLUCOSE RANDOM (BEAKER) 120 mg/dL 70-105 (test jftg=322) CALCIUM (BEAKER) (test 8.3 mg/dL 8.4-10.2 hrqr=311) EGFR (BEAKER) (test 33 mL/min/1.73 sq m ESTIMATED GFR IS NOT xamw=6137) ACCURATE CREATININE CLEARANCE IN PREDICTING GLOMERULAR FILTRATION RATE. ESTIMATED GFR IS NOT APPLICABLE FOR DIALYSIS PATIENTS. CBC W/PLT COUNT & AUTO [id number] 06:36:00 Test Item Value Reference Range Comments WHITE BLOOD CELL COUNT (BEAKER) (test pfvc=746) 9.7 K/ L 3.5-10.5 RED BLOOD CELL COUNT (BEAKER) (test bfdf=429) 3.65 M/ L 4.63-6.08 HEMOGLOBIN (BEAKER) (test whdw=519) 11.2 GM/DL 13.7-17.5 HEMATOCRIT (BEAKER) (test gmxg=858) 33.7 % 40.1-51.0 MEAN CORPUSCULAR VOLUME (BEAKER) (test mqcd=218) 92.3 fL 79.0-92.2 MEAN CORPUSCULAR HEMOGLOBIN (BEAKER) (test 30.7 pg 25.7-32.2 zhre=763) MEAN CORPUSCULAR HEMOGLOBIN CONC (BEAKER) (test 33.2 GM/DL 32.3-36.5 gpar=089) RED CELL DISTRIBUTION WIDTH (BEAKER) (test 14.4 % 11.6-14.4 vrvg=909) PLATELET COUNT (BEAKER) (test ucht=779) 214 K/CU MM 150-450 MEAN PLATELET VOLUME (BEAKER) (test mgxz=688) 8.8 fL 9.4-12.4 NUCLEATED RED BLOOD CELLS (BEAKER) (test 0 /100 WBC 0-0 kijg=132) NEUTROPHILS RELATIVE PERCENT (BEAKER) (test 78 % noks=129) LYMPHOCYTES RELATIVE PERCENT (BEAKER) (test 11 % eamq=357) MONOCYTES RELATIVE PERCENT (BEAKER) (test 9 % eixm=491) EOSINOPHILS RELATIVE PERCENT (BEAKER) (test 1 % yzzt=629) BASOPHILS RELATIVE PERCENT (BEAKER) (test 1 % pbtp=193) NEUTROPHILS ABSOLUTE COUNT (BEAKER) (test 7.51 K/ L 1.78-5.38 taeq=155) LYMPHOCYTES ABSOLUTE COUNT (BEAKER) (test 1.09 K/ L 1.32-3.57 qwtd=442) MONOCYTES ABSOLUTE COUNT (BEAKER) (test 0.83 K/ L 0.30-0.82 lkdx=943) EOSINOPHILS ABSOLUTE COUNT (BEAKER) (test 0.14 K/ L 0.04-0.54 kcgj=615) BASOPHILS ABSOLUTE COUNT (BEAKER) (test 0.05 K/ L 0.01-0.08 zmhe=249) IMMATURE GRANULOCYTES-RELATIVE PERCENT (BEAKER) 1 % 0-1 (test ndqm=9928) LIPID [id number] 07:15:00 Test Item Value Reference Range Comments TRIGLYCERIDES (BEAKER) (test yjqg=030) 65 mg/dL CHOLESTEROL (BEAKER) (test hvni=073) 129 mg/dL HDL CHOLESTEROL (BEAKER) (test oxyo=207) 30 mg/dL LDL CHOLESTEROL CALCULATED (BEAKER) (test 86 mg/dL cubt=481) Triglyceride Reference Range: Low Risk <150 Borderline 150- 199 High Risk 200-499 Very High Risk >=500Cholesterol Reference Range: Low Risk <200 Borderline 200-239 High Risk > 240HDL Cholesterol Reference Range: Low Risk >=60 High Risk <40LDL Cholesterol Reference Range: Optimal <100 Near Optimal 100-129 Borderline 130-159 High 160-189 Very High >=190BASIC METABOLIC [id number] 07:15:00 Test Item Value Reference Range Comments SODIUM (BEAKER) (test 138 meq/L 136-145 luop=091) POTASSIUM (BEAKER) (test 4.3 meq/L 3.5-5.1 yfer=077) CHLORIDE (BEAKER) (test 108 meq/L 98-107 sfio=734) CO2 (BEAKER) (test 24 meq/L 22-29 qpyl=767) BLOOD UREA NITROGEN 13 mg/dL 7-21 (BEAKER) (test jvcg=266) CREATININE (BEAKER) (test 1.86 mg/dL 0.57-1.25 rzej=398) GLUCOSE RANDOM (BEAKER) 90 mg/dL 70-105 (test ehod=303) CALCIUM (BEAKER) (test 8.8 mg/dL 8.4-10.2 vavn=485) EGFR (BEAKER) (test 37 mL/min/1.73 sq m ESTIMATED GFR IS NOT zyrm=4164) ACCURATE CREATININE CLEARANCE IN PREDICTING GLOMERULAR FILTRATION RATE. ESTIMATED GFR IS NOT APPLICABLE FOR DIALYSIS PATIENTS. CBC W/PLT COUNT & AUTO [id number] 06:52:00 Test Item Value Reference Range Comments WHITE BLOOD CELL COUNT (BEAKER) (test idfx=775) 8.3 K/ L 3.5-10.5 RED BLOOD CELL COUNT (BEAKER) (test mqej=103) 3.89 M/ L 4.63-6.08 HEMOGLOBIN (BEAKER) (test udwx=641) 11.8 GM/DL 13.7-17.5 HEMATOCRIT (BEAKER) (test kaiq=758) 36.2 % 40.1-51.0 MEAN CORPUSCULAR VOLUME (BEAKER) (test tpyu=537) 93.1 fL 79.0-92.2 MEAN CORPUSCULAR HEMOGLOBIN (BEAKER) (test 30.3 pg 25.7-32.2 vgoo=530) MEAN CORPUSCULAR HEMOGLOBIN CONC (BEAKER) (test 32.6 GM/DL 32.3-36.5 maui=488) RED CELL DISTRIBUTION WIDTH (BEAKER) (test 14.6 % 11.6-14.4 qgjj=955) PLATELET COUNT (BEAKER) (test dzpq=281) 272 K/CU MM 150-450 MEAN PLATELET VOLUME (BEAKER) (test zico=857) 9.0 fL 9.4-12.4 NUCLEATED RED BLOOD CELLS (BEAKER) (test 0 /100 WBC 0-0 kssy=902) NEUTROPHILS RELATIVE PERCENT (BEAKER) (test 57 % bpxo=447) LYMPHOCYTES RELATIVE PERCENT (BEAKER) (test 28 % ertp=859) MONOCYTES RELATIVE PERCENT (BEAKER) (test 10 % fpuz=914) EOSINOPHILS RELATIVE PERCENT (BEAKER) (test 5 % hmwm=380) BASOPHILS RELATIVE PERCENT (BEAKER) (test 1 % kuyk=591) NEUTROPHILS ABSOLUTE COUNT (BEAKER) (test 4.70 K/ L 1.78-5.38 mcjv=200) LYMPHOCYTES ABSOLUTE COUNT (BEAKER) (test 2.31 K/ L 1.32-3.57 ulbd=794) MONOCYTES ABSOLUTE COUNT (BEAKER) (test 0.83 K/ L 0.30-0.82 qyuv=490) EOSINOPHILS ABSOLUTE COUNT (BEAKER) (test 0.37 K/ L 0.04-0.54 npds=590) BASOPHILS ABSOLUTE COUNT (BEAKER) (test 0.07 K/ L 0.01-0.08 ybdd=087) IMMATURE GRANULOCYTES-RELATIVE PERCENT (BEAKER) 0 % 0-1 (test xgav=7485) RAD, CHEST, 1 VIEW, NON [id number] 23:59:00Reason for exam:->pre opShould this be performed at the bedside?->YesFINAL REPORT Chest, one view. HISTORY: Preoperative COMPARISON: Radiograph from 01/23/2018 IMPRESSION: A right chest port has its tip over the lower SVC. Staple line over the right lower chest. There is blunting of the right costophrenic sulcus which is likely scar. The lungs are clear. No pneumothorax. The cardiac silhouette is normal. No acute bony abnormality. Signed: Bryan Christianson MDReport Verified Date/Time: 05/17/2018 23:59:18 Reading Location: [address] Consult Reading Room 11 :59 PMPT/[id number] 18:50:00 Test Item Value Reference Range Comments PROTIME (BEAKER) (test fvgw=544) 13.0 seconds 11.7-14.7 INR (BEAKER) (test chls=881) 1.0 <=5.9 PARTIAL THROMBOPLASTIN TIME (BEAKER) (test 30.3 seconds 22.5-36.0 uvcv=126) RECOMMENDED COUMADIN/WARFARIN INR THERAPY RANGESSTANDARD DOSE: 2.0 - 3.0 Includes: PROPHYLAXIS forvenous thrombosis, systemic embolization; TREATMENT for venous thrombosis and/or pulmonary embolus.HIGH RISK: Target INR is 2.5-3.5 for patients with mechanical heart valves.PROTHROMBIN [id number] 18:49: 00 Test Item Value Reference Range Comments PROTIME (BEAKER) (test zpwq=769) 13.0 seconds 11.7-14.7 INR (BEAKER) (test qqbi=715) 1.0 <=5.9 RECOMMENDED COUMADIN/WARFARIN INR THERAPY RANGESSTANDARD DOSE: 2.0 - 3.0 Includes: PROPHYLAXIS forvenous thrombosis, systemic embolization; TREATMENT for venous thrombosis and/or pulmonary embolus.HIGH RISK: Target INR is 2.5-3.5 for patients with mechanical heart valves.[id number] 18:40:00 Test Item Value Reference Range Comments PHOSPHORUS (BEAKER) (test xdpz=769) 3.0 mg/dL 2.3-4.7 [id number] 18:40:00 Test Item Value Reference Range Comments MAGNESIUM (BEAKER) (test rise=532) 2.1 mg/dL 1.6-2.6 BASIC METABOLIC [id number] 18:40:00 Test Item Value Reference Range Comments SODIUM (BEAKER) (test 137 meq/L 136-145 vodi=571) POTASSIUM (BEAKER) (test 4.5 meq/L 3.5-5.1 xsfb=390) CHLORIDE (BEAKER) (test 105 meq/L 98-107 xjtq=988) CO2 (BEAKER) (test 23 meq/L 22-29 olqo=293) BLOOD UREA NITROGEN 13 mg/dL 7-21 (BEAKER) (test bglj=573) CREATININE (BEAKER) (test 1.81 mg/dL 0.57-1.25 nayx=426) GLUCOSE RANDOM (BEAKER) 87 mg/dL 70-105 (test tzwr=664) CALCIUM (BEAKER) (test 9.3 mg/dL 8.4-10.2 dvyo=353) EGFR (BEAKER) (test 38 mL/min/1.73 sq m ESTIMATED GFR IS NOT pkqp=9074) ACCURATE CREATININE CLEARANCE IN PREDICTING GLOMERULAR FILTRATION RATE. ESTIMATED GFR IS NOT APPLICABLE FOR DIALYSIS PATIENTS. HEPATIC FUNCTION [id number] 18:40:00 Test Item Value Reference Range Comments TOTAL PROTEIN (BEAKER) (test adcf=256) 7.1 gm/dL 6.0-8.3 ALBUMIN (BEAKER) (test kgom=5284) 3.9 g/dL 3.5-5.0 BILIRUBIN TOTAL (BEAKER) (test oxah=667) 0.3 mg/dL 0.2-1.2 BILIRUBIN DIRECT (BEAKER) (test tcog=885) 0.1 mg/dL 0.1-0.5 ALKALINE PHOSPHATASE (BEAKER) (test hmum=262) 93 U/L 40-150 AST (SGOT) (BEAKER) (test fjhl=307) 16 U/L 5-34 ALT (SGPT) (BEAKER) (test dnds=117) 11 U/L 6-55 CBC W/PLT COUNT & AUTO [id number] 18:25:00 Test Item Value Reference Range Comments WHITE BLOOD CELL COUNT (BEAKER) (test glgd=061) 10.6 K/ L 3.5-10.5 RED BLOOD CELL COUNT (BEAKER) (test rljn=717) 4.59 M/ L 4.63-6.08 HEMOGLOBIN (BEAKER) (test mkhf=648) 13.8 GM/DL 13.7-17.5 HEMATOCRIT (BEAKER) (test eiuk=465) 42.3 % 40.1-51.0 MEAN CORPUSCULAR VOLUME (BEAKER) (test gdey=505) 92.2 fL 79.0-92.2 MEAN CORPUSCULAR HEMOGLOBIN (BEAKER) (test 30.1 pg 25.7-32.2 muhe=448) MEAN CORPUSCULAR HEMOGLOBIN CONC (BEAKER) (test 32.6 GM/DL 32.3-36.5 kbwh=423) RED CELL DISTRIBUTION WIDTH (BEAKER) (test 14.7 % 11.6-14.4 gvco=905) PLATELET COUNT (BEAKER) (test usyw=344) 313 K/CU MM 150-450 MEAN PLATELET VOLUME (BEAKER) (test iluv=624) 8.8 fL 9.4-12.4 NUCLEATED RED BLOOD CELLS (BEAKER) (test 0 /100 WBC 0-0 xcwm=768) NEUTROPHILS RELATIVE PERCENT (BEAKER) (test 74 % wusk=551) LYMPHOCYTES RELATIVE PERCENT (BEAKER) (test 16 % ltyw=218) MONOCYTES RELATIVE PERCENT (BEAKER) (test 7 % ushv=885) EOSINOPHILS RELATIVE PERCENT (BEAKER) (test 2 % raxp=987) BASOPHILS RELATIVE PERCENT (BEAKER) (test 1 % uznq=980) NEUTROPHILS ABSOLUTE COUNT (BEAKER) (test 7.87 K/ L 1.78-5.38 mkkt=688) LYMPHOCYTES ABSOLUTE COUNT (BEAKER) (test 1.70 K/ L 1.32-3.57 dlro=348) MONOCYTES ABSOLUTE COUNT (BEAKER) (test 0.79 K/ L 0.30-0.82 kyvh=525) EOSINOPHILS ABSOLUTE COUNT (BEAKER) (test 0.20 K/ L 0.04-0.54 afby=093) BASOPHILS ABSOLUTE COUNT (BEAKER) (test 0.05 K/ L 0.01-0.08 saug=998) IMMATURE GRANULOCYTES-RELATIVE PERCENT (BEAKER) 0 % 0-1 (test tlul=9555) TISSUE [id number] 14:40:00Surgical Pathology Report Case: [id number] Authorizing Provider: Fadi Philippe MD Collected: 02/06/2018 5820 Ordering Location: [address] Received: 02/07/2018 2386 Service Pathologist: Yuridia Mercer MD Specimens: A) - Polyp, Colon - Right/Ascending, taken via hot snare B) -Mass, Bx of Rectal mass via forcep The addendum is issued to report the results of molecular tests performed at [facility]. 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 Please see the attachedscanned documents for more information. Addendum electronically signed by Noy Bailey MD on 03/29/2018 at 2:40 PMAddendum for results of MSI testing: The addendum is being issued to report the resultsof immunohistochemistry (IHC) testing for Mismatch Repair (MMR) [...] InterpretationNo loss of nuclear expression of MMR proteins:low probability of microsatellite instability-high (MSI-H)# #There are exceptions to the above IHC interpretations. These results should not be considered in isolation, and clinical correlation with genetic counseling is recommended to assess the need for germline testing. Immunohistochemistry disclaimer:The immunohistochemistry test was developed and its performance characteristics determined by [facility], Pathology Laboratory. It has not been cleared [...] complexity clinical laboratory testing. Added CPT codes: 45531, 56514 x3 This email and attachments contain information that may be confidential or privileged. If you are not the intended recipient, notify the sender at once and delete this message completely from your information system. Further use, disclosure, or copying of information contained in this email is not authorized , and any such action should not be construed as a waiver of privilege or other confidentiality protections.Addendum electronically signed by Yuridia Mercer MD on 03/09/2018 at 1:01 PMA. RIGHT/ASCENDING COLON, BIOPSY: - TUBULAR ADENOMA - LYMPHOID AGGREGATES/FOLLICLES - NEGATIVE FORHIGH GRADE DYSPLASIAB. RECTUM, BIOPSY OF MASS: - INVASIVE MODERATELY DIFFERENTIATED ADENOCARCINOMA, COLONIC TYPE, ULCERATEDCC/pl Signing Pathologist Direct Phone Line: [phone] by Yuridia Mercer MD on 02/08 at 10:08 [id number]. Right ascending colon polyp; B. Rectal mass [...] rose-white soft tissue ranging from 0.1 to 0.2cm, submitted B1. CG/pl A. The biopsy from the right/ ascending colon shows a tubular adenoma, situated in [...] are noted. Some reactive changes are also present.CT, LIMITED/ LOCALIZED [id number] 08:10:00Request liver biopsy Reason for exam:-> liver mass, need biopsy Should this be performed at the bedside?->NoAddendum BeginsREPORT STATUS:A This exam was performed according to our departmental dose optimization program which includes automated exposure control, adjustment of the mA and/or kV according to patient size and/or use of iterative reconstructive technique. Signed: Tung Wise MDReport Verified Date/ Time: 02/27/2018 08:10:53 Reading Location: [facility] Diagnostic Imaging Reading Room - [place] [address]Addendum EndsFINAL REPORT History: Liver masses COMPARISON: CT dated 02/09/2018 and an ultrasound dated 02/13/2018 DISCUSSION: The hepatic lesions were unable to be previously seen under ultrasound and therefore, the patient was sent to CT for potential biopsy under CT guidance. A crm campaign manager image was obtained prior to the biopsy procedure. The previously seen nodular foci within the liver are not well delineated on the crm campaign manager images. Some poorly seen hypodense foci are seen towards the hepatic dome. Attempted visualization was made during real-time CT fluoroscopy. However , due to the patient's breathing as well as the small size and location of the lesions within liver, no focal lesion could be localized reliably for a safe CT guided biopsy. Signed: Tung Wise MDReport Verified Date/Time: 02/14/2018 16: 38:16 Reading Location: [facility] C013Y CT Body ReadingRoom FINE NEEDLE ASPIRATION BY [id number] 14:34:00Medical Cytology Report Case: [id number] Authorizing Provider: Fadi Philippe MD Collected: 02/15/2018 1103 Ordering Location: [address] Received: 02/16/2018 0959 Service Pathologist: Yas Townsend Specimen: Liver, Liver mass FNA in CRR for cytology LIVER MASS FNA BYCLINICIAN ( CYTOSPINS AND CELL BLOCK OF ASPIRATE): - POSITIVE FOR MALIGNANCY, MORPHOLOGICALLY COMPATIBLE WITH RECTAL CARCINOMA PRIMARY Signing Pathologist Direct Phone Line: [phone] signed by Yas Townsend on 02/17/2018 at 2:34 PMCytospins show clusters of benign appearing hepatocytes. The cell block show predominantly hepatic parenchyma with a focal attached area ofatypical glands with hyperchromatic and pleomorphic nuclei. The previous case, [id number] is reviewed and shows similar features.Intradepartmental Consultation: Noy Bailey MD has reviewed the case andagrees with the findings.97169, 46936(1.3 x 0.9 cm) round mass in the left lobe of the liver, recently diagnosed with rectal cancer(see [id number])LIVER MASS FNA27 mls in cytorich red; 4 cytospins, cellblockCollected: [id number] : [id number], Department of Pathology, [address] [place] [address], [place] [address], [address] [place] [address], Department of Pathology, [address] [place] [address], [place] [address], Tel ITW, TUNNEL CATH CENTRAL INS W/PORT [id number] 18:32:00Reason for exam:-&gt ;chemotherapyFINAL REPORT Right internal jugular chest port insertion History: Patient requires access for chemotherapy. Modality: Sonography and fluoroscopy. Sedation: Versed 1.5 mg and fentanyl 75 mcg given intravenously forconscious sedation. Vital signs were monitored throughout the procedure by a nurse, and remained stable. Physician intra-service time was 25 minutes. Market Research Intern: Peña Zepeda MDAssistant: Jose Martin. Approach: Right internal jugularvein Estimated blood loss: < 5 cc. Specimen: [...] needle into the right atrium. A 4 Yakut micropuncture sheath was placed. A subcutaneous tunnel and pocket were created in the right anterior chest wall by blunt dissection. The pocket was flushed with antibiotic solution. A 6F Bard port was placed within the pocket and the catheter brought through the tunnel. The catheter was cut at 20 cm. A peel-away sheath wasplaced in the right IJ vein and the catheter was advanced through the sheath, with its distal tip terminating in the cavoatrial junction. The peel-away sheath was removed. The port was flushed and aspirated easily following placement. The skin incision was closed with 3-0 running subcuticular Monocryl and Steri- Strips. The small jugular incision site was closed [...] MDReport Verified Date/Time: 02/16/2018 18:32:11 Reading Location: [place] [address] Angio Body Reading Room TISSUE [id number] 15:01: 00Surgical Pathology Report Case: [id number] Authorizing Provider: Fadi Philippe MD Collected : 02/15/2018 1055 Ordering Location: [address] Received: 02/15/2018 1604 Service Pathologist: Timothy Mendoza MD Specimen: Liver, Liver Mass LIVER MASS, ULTRASOUND-GUIDED CORE NEEDLE BIOPSY: - FRAGMENTED CORES OF BENIGN LIVER PARENCHYMA - MINIMAL STEATOSIS (LESS THAN 1% ) - MINIMAL PERIPORTAL FIBROSIS - NEGATIVE FOR MALIGNANCY (SEE COMMENT) Signing Pathologist Direct Phone Line: [phone] signed by Timothy Mendoza MD on 02/16/2018 at 3:01 PMClinical and radiographic correlation is recommended to determine if this represents the lesion.75731, 67238 x 2Rectal cancerLiver massThe specimen is received in a formalin-filled container and labeled with the patient's information and labeled "liver mass" and consists of multiple rose-red stringy fragment of hemorrhagic tissue measuring 1 x 0.4 x 0.2 cm in aggregate. Submitted entirelyA1. CG/pl Sections show multiple fragmented cores of [...] incorporated in the diagnostic report above: trichrome, reticulin.FINE NEEDLE ASPIRATE (FNA) [id number] 11:00:00 Test Item Value Reference Range Comments CYTOLOGY RESULT POINTER (BEAKER) (test See Separate Report zfao=4819) BASIC METABOLIC [id number] 06:09:00 Test Item Value Reference Range Comments SODIUM (BEAKER) (test 141 meq/L 136-145 eoji=882) POTASSIUM (BEAKER) (test 4.0 meq/L 3.5-5.1 gufu=556) CHLORIDE (BEAKER) (test 112 meq/L 98-107 oxkp=011) CO2 (BEAKER) (test 23 meq/L 22-29 yftj=208) BLOOD UREA NITROGEN 14 mg/dL 7-21 (BEAKER) (test lwna=465) CREATININE (BEAKER) (test 1.57 mg/dL 0.57-1.25 nkzd=517) GLUCOSE RANDOM (BEAKER) 109 mg/dL 70-105 (test skrd=640) CALCIUM (BEAKER) (test 8.3 mg/dL 8.4-10.2 iwxz=594) EGFR (BEAKER) (test 45 mL/min/1.73 sq m ESTIMATED GFR IS NOT dunn=8907) ACCURATE CREATININE CLEARANCE IN PREDICTING GLOMERULAR FILTRATION RATE. ESTIMATED GFR IS NOT APPLICABLE FOR DIALYSIS PATIENTS. CBC (HEMOGRAM ONLY)2018-02-16 05:41:00 Test Item Value Reference Range Comments WHITE BLOOD CELL COUNT (BEAKER) (test rnlc=198) 6.6 K/ L 3.5-10.5 RED BLOOD CELL COUNT (BEAKER) (test type=790) 2.98 M/ L 4.63-6.08 HEMOGLOBIN (BEAKER) (test clwv=067) 8.9 GM/DL 13.7-17.5 HEMATOCRIT (BEAKER) (test qpmg=734) 28.6 % 40.1-51.0 MEAN CORPUSCULAR VOLUME (BEAKER) (test wibo=682) 96.0 fL 79.0-92.2 MEAN CORPUSCULAR HEMOGLOBIN (BEAKER) (test 29.9 pg 25.7-32.2 sqwh=912) MEAN CORPUSCULAR HEMOGLOBIN CONC (BEAKER) (test 31.1 GM/DL 32.3-36.5 xqtl=351) RED CELL DISTRIBUTION WIDTH (BEAKER) (test 14.7 % 11.6-14.4 cuiz=490) PLATELET COUNT (BEAKER) (test eccl=139) 206 K/CU MM 150-450 MEAN PLATELET VOLUME (BEAKER) (test lawq=583) 8.9 fL 9.4-12.4 NUCLEATED RED BLOOD CELLS (BEAKER) (test 0 /100 WBC 0-0 yrgg=669) BASIC METABOLIC [id number] 05:52:00 Test Item Value Reference Range Comments SODIUM (BEAKER) (test 141 meq/L 136-145 qoji=298) POTASSIUM (BEAKER) (test 4.1 meq/L 3.5-5.1 wtyb=513) CHLORIDE (BEAKER) (test 110 meq/L 98-107 dlqk=445) CO2 (BEAKER) (test 25 meq/L 22-29 fqqr=755) BLOOD UREA NITROGEN 14 mg/dL 7-21 (BEAKER) (test bsub=122) CREATININE (BEAKER) (test 1.82 mg/dL 0.57-1.25 vhwq=120) GLUCOSE RANDOM (BEAKER) 118 mg/dL 70-105 (test xirb=460) CALCIUM (BEAKER) (test 8.5 mg/dL 8.4-10.2 lzyi=582) EGFR (BEAKER) (test 38 mL/min/1.73 sq m ESTIMATED GFR IS NOT kgwn=2404) ACCURATE CREATININE CLEARANCE IN PREDICTING GLOMERULAR FILTRATION RATE. ESTIMATED GFR IS NOT APPLICABLE FOR DIALYSIS PATIENTS. CBC (HEMOGRAM ONLY)2018-02-15 05:12:00 Test Item Value Reference Range Comments WHITE BLOOD CELL COUNT (BEAKER) (test loie=307) 7.2 K/ L 3.5-10.5 RED BLOOD CELL COUNT (BEAKER) (test ykce=000) 2.94 M/ L 4.63-6.08 HEMOGLOBIN (BEAKER) (test uzot=894) 8.7 GM/DL 13.7-17.5 HEMATOCRIT (BEAKER) (test khss=283) 28.2 % 40.1-51.0 MEAN CORPUSCULAR VOLUME (BEAKER) (test syuk=784) 95.9 fL 79.0-92.2 MEAN CORPUSCULAR HEMOGLOBIN (BEAKER) (test 29.6 pg 25.7-32.2 icho=296) MEAN CORPUSCULAR HEMOGLOBIN CONC (BEAKER) (test 30.9 GM/DL 32.3-36.5 frcq=663) RED CELL DISTRIBUTION WIDTH (BEAKER) (test 14.8 % 11.6-14.4 orjq=698) PLATELET COUNT (BEAKER) (test jmil=824) 227 K/CU MM 150-450 MEAN PLATELET VOLUME (BEAKER) (test pspr=101) 9.2 fL 9.4-12.4 NUCLEATED RED BLOOD CELLS (BEAKER) (test 0 /100 WBC 0-0 yosy=156) U/S, ABDOMINAL, [id number] 07:47:00Reason for exam:->liver massFINAL REPORT Ultrasound of abdomen, limited INDICATION: Liver mass COMPARISON: CT dated February 09, 2018 FINDINGS: Sonographic evaluation of the liver is performed in preparationfor biopsy of liver lesion seen on recent CT. However, no focal lesion is identified on ultrasound and biopsy was not performed. Signed: Joanne Diaz Verified Date/Time: 02/14/2018 07:47:16 Reading Location: [facility] Radiology Reading Room Electronically signed by: JOANNE DIAZ M.D. on02/14/2018 07:47 AMBASIC METABOLIC [id number] 06:19:00 Test Item Value Reference Range Comments SODIUM (BEAKER) (test 140 meq/L 136-145 ornu=968) POTASSIUM (BEAKER) (test 3.9 meq/L 3.5-5.1 mlpo=962) CHLORIDE (BEAKER) (test 110 meq/L 98-107 hbev=017) CO2 (BEAKER) (test 24 meq/L 22-29 vqeb=323) BLOOD UREA NITROGEN 15 mg/dL 7-21 (BEAKER) (test qzyb=652) CREATININE (BEAKER) (test 1.61 mg/dL 0.57-1.25 bpwx=322) GLUCOSE RANDOM (BEAKER) 105 mg/dL 70-105 (test ffol=739) CALCIUM (BEAKER) (test 8.2 mg/dL 8.4-10.2 wnph=501) EGFR (BEAKER) (test 44 mL/min/1.73 sq m ESTIMATED GFR IS NOT cpma=9481) ACCURATE CREATININE CLEARANCE IN PREDICTING GLOMERULAR FILTRATION RATE. ESTIMATED GFR IS NOT APPLICABLE FOR DIALYSIS PATIENTS. CBC (HEMOGRAM ONLY)2018-02-14 05:42:00 Test Item Value Reference Range Comments WHITE BLOOD CELL COUNT (BEAKER) (test kgka=875) 7.6 K/ L 3.5-10.5 RED BLOOD CELL COUNT (BEAKER) (test rzdw=391) 2.83 M/ L 4.63-6.08 HEMOGLOBIN (BEAKER) (test wper=075) 8.3 GM/DL 13.7-17.5 HEMATOCRIT (BEAKER) (test vgrv=184) 26.9 % 40.1-51.0 MEAN CORPUSCULAR VOLUME (BEAKER) (test ksem=205) 95.1 fL 79.0-92.2 MEAN CORPUSCULAR HEMOGLOBIN (BEAKER) (test 29.3 pg 25.7-32.2 ofcn=514) MEAN CORPUSCULAR HEMOGLOBIN CONC (BEAKER) (test 30.9 GM/DL 32.3-36.5 efyv=067) RED CELL DISTRIBUTION WIDTH (BEAKER) (test 14.6 % 11.6-14.4 qker=380) PLATELET COUNT (BEAKER) (test omgs=070) 252 K/CU MM 150-450 MEAN PLATELET VOLUME (BEAKER) (test hsbs=854) 9.2 fL 9.4-12.4 NUCLEATED RED BLOOD CELLS (BEAKER) (test 0 /100 WBC 0-0 cjjg=037) PROTEIN ELECTROPHORESIS, [id number] 14:00:00 Test Item Value Reference Range Comments ALBUMIN FRACTION (BEAKER) 2.6 g/dL 3.5-5.5 (test ktpr=307) ALPHA 1 FRACTION (BEAKER) 0.2 g/dL 0.2-0.4 (test qmoo=395) ALPHA 2 FRACTION (BEAKER) 0.6 g/dL 0.5-0.9 (test nwje=129) BETA FRACTION (BEAKER) (test 0.9 g/dL 0.6-1.1 mrcc=976) GAMMA GLOBULIN FRACTION 0.7 g/dL 0.7-1.7 (BEAKER) (test jqig=369) INTERPRETATION-119 (BEAKER) Decreased albumin, suggestive of (test nfvr=9751) protein loss. Pattern otherwise consistent with mild acute inflammatory response. No monoclonal bands detected. [id number] Lilly Harris MD (BEAKER) (test shxd=4215) (electronic signature) PROTEIN TOTAL SERUM, SPEP 5.0 gm/dL 6.0-8.3 (BEAKER) (test qfrw=0477) BASIC METABOLIC [id number] 05:12:00 Test Item Value Reference Range Comments SODIUM (BEAKER) (test 140 meq/L 136-145 eonh=599) POTASSIUM (BEAKER) (test 3.8 meq/L 3.5-5.1 qigj=106) CHLORIDE (BEAKER) (test 111 meq/L 98-107 yjor=698) CO2 (BEAKER) (test 24 meq/L 22-29 kwpv=482) BLOOD UREA NITROGEN 14 mg/dL 7-21 (BEAKER) (test dhar=108) CREATININE (BEAKER) (test 1.56 mg/dL 0.57-1.25 fyud=736) GLUCOSE RANDOM (BEAKER) 104 mg/dL 70-105 (test bqaz=969) CALCIUM (BEAKER) (test 8.2 mg/dL 8.4-10.2 tsmg=531) EGFR (BEAKER) (test 45 mL/min/1.73 sq m ESTIMATED GFR IS NOT ocud=9294) ACCURATE CREATININE CLEARANCE IN PREDICTING GLOMERULAR FILTRATION RATE. ESTIMATED GFR IS NOT APPLICABLE FOR DIALYSIS PATIENTS. [id number] 04:59:00 Test Item Value Reference Range Comments PROTIME (BEAKER) (test jzvu=296) 14.5 seconds 11.7-14.7 INR (BEAKER) (test yqeb=112) 1.1 <=5.9 PARTIAL THROMBOPLASTIN TIME (BEAKER) (test 37.1 seconds 22.5-36.0 rfzh=800) RECOMMENDED COUMADIN/WARFARIN INR THERAPY RANGESSTANDARD DOSE: 2.0 - 3.0 Includes: PROPHYLAXIS forvenous thrombosis, systemic embolization; TREATMENT for venous thrombosis and/or pulmonary embolus.HIGH RISK: Target INR is 2.5-3.5 for patients with mechanical heart valves.CBC (HEMOGRAM ONLY)2018-02-13 04:49:00 Test Item Value Reference Range Comments WHITE BLOOD CELL COUNT (BEAKER) (test cfhp=080) 8.9 K/ L 3.5-10.5 RED BLOOD CELL COUNT (BEAKER) (test dqly=545) 2.95 M/ L 4.63-6.08 HEMOGLOBIN (BEAKER) (test cglq=288) 8.7 GM/DL 13.7-17.5 HEMATOCRIT (BEAKER) (test odwa=692) 27.9 % 40.1-51.0 MEAN CORPUSCULAR VOLUME (BEAKER) (test lyge=382) 94.6 fL 79.0-92.2 MEAN CORPUSCULAR HEMOGLOBIN (BEAKER) (test 29.5 pg 25.7-32.2 byth=104) MEAN CORPUSCULAR HEMOGLOBIN CONC (BEAKER) (test 31.2 GM/DL 32.3-36.5 gahk=302) RED CELL DISTRIBUTION WIDTH (BEAKER) (test 14.5 % 11.6-14.4 lenb=815) PLATELET COUNT (BEAKER) (test jdcl=137) 264 K/CU MM 150-450 MEAN PLATELET VOLUME (BEAKER) (test xvoc=840) 9.1 fL 9.4-12.4 NUCLEATED RED BLOOD CELLS (BEAKER) (test 0 /100 WBC 0-0 ozaa=029) BASIC METABOLIC [id number] 06:13:00 Test Item Value Reference Range Comments SODIUM (BEAKER) (test 140 meq/L 136-145 trhy=506) POTASSIUM (BEAKER) (test 3.9 meq/L 3.5-5.1 rprw=755) CHLORIDE (BEAKER) (test 111 meq/L 98-107 kutb=737) CO2 (BEAKER) (test 23 meq/L 22-29 rxmy=226) BLOOD UREA NITROGEN 12 mg/dL 7-21 (BEAKER) (test fwuf=490) CREATININE (BEAKER) (test 1.50 mg/dL 0.57-1.25 vylv=908) GLUCOSE RANDOM (BEAKER) 100 mg/dL 70-105 (test rgik=748) CALCIUM (BEAKER) (test 8.0 mg/dL 8.4-10.2 ynlx=641) EGFR (BEAKER) (test 47 mL/min/1.73 sq m ESTIMATED GFR IS NOT qxnx=7429) ACCURATE CREATININE CLEARANCE IN PREDICTING GLOMERULAR FILTRATION RATE. ESTIMATED GFR IS NOT APPLICABLE FOR DIALYSIS PATIENTS. CBC (HEMOGRAM ONLY)2018-02-12 05:35:00 Test Item Value Reference Range Comments WHITE BLOOD CELL COUNT (BEAKER) (test zepz=674) 9.1 K/ L 3.5-10.5 RED BLOOD CELL COUNT (BEAKER) (test rapj=200) 2.89 M/ L 4.63-6.08 HEMOGLOBIN (BEAKER) (test tpli=157) 8.5 GM/DL 13.7-17.5 HEMATOCRIT (BEAKER) (test mpzr=055) 27.2 % 40.1-51.0 MEAN CORPUSCULAR VOLUME (BEAKER) (test nemw=238) 94.1 fL 79.0-92.2 MEAN CORPUSCULAR HEMOGLOBIN (BEAKER) (test 29.4 pg 25.7-32.2 jipx=341) MEAN CORPUSCULAR HEMOGLOBIN CONC (BEAKER) (test 31.3 GM/DL 32.3-36.5 xzqq=827) RED CELL DISTRIBUTION WIDTH (BEAKER) (test 14.2 % 11.6-14.4 nbbw=419) PLATELET COUNT (BEAKER) (test wbkx=507) 295 K/CU MM 150-450 MEAN PLATELET VOLUME (BEAKER) (test lokn=866) 9.1 fL 9.4-12.4 NUCLEATED RED BLOOD CELLS (BEAKER) (test 0 /100 WBC 0-0 appr=827) BASIC METABOLIC [id number] 06:06:00 Test Item Value Reference Range Comments SODIUM (BEAKER) (test 143 meq/L 136-145 noiu=612) POTASSIUM (BEAKER) (test 3.9 meq/L 3.5-5.1 hzij=613) CHLORIDE (BEAKER) (test 113 meq/L 98-107 agll=990) CO2 (BEAKER) (test 25 meq/L 22-29 hfpt=095) BLOOD UREA NITROGEN 12 mg/dL 7-21 (BEAKER) (test iori=721) CREATININE (BEAKER) (test 1.79 mg/dL 0.57-1.25 bstr=758) GLUCOSE RANDOM (BEAKER) 109 mg/dL 70-105 (test cmhf=239) CALCIUM (BEAKER) (test 8.0 mg/dL 8.4-10.2 nfxu=035) EGFR (BEAKER) (test 39 mL/min/1.73 sq m ESTIMATED GFR IS NOT wdna=7411) ACCURATE CREATININE CLEARANCE IN PREDICTING GLOMERULAR FILTRATION RATE. ESTIMATED GFR IS NOT APPLICABLE FOR DIALYSIS PATIENTS. CBC (HEMOGRAM ONLY)2018-02-11 05:09:00 Test Item Value Reference Range Comments WHITE BLOOD CELL COUNT (BEAKER) (test mncp=838) 6.3 K/ L 3.5-10.5 RED BLOOD CELL COUNT (BEAKER) (test czuf=623) 2.75 M/ L 4.63-6.08 HEMOGLOBIN (BEAKER) (test dnli=370) 8.1 GM/DL 13.7-17.5 HEMATOCRIT (BEAKER) (test gckm=810) 25.8 % 40.1-51.0 MEAN CORPUSCULAR VOLUME (BEAKER) (test uzir=740) 93.8 fL 79.0-92.2 MEAN CORPUSCULAR HEMOGLOBIN (BEAKER) (test 29.5 pg 25.7-32.2 jkhg=284) MEAN CORPUSCULAR HEMOGLOBIN CONC (BEAKER) (test 31.4 GM/DL 32.3-36.5 dleq=704) RED CELL DISTRIBUTION WIDTH (BEAKER) (test 14.4 % 11.6-14.4 npyn=880) PLATELET COUNT (BEAKER) (test xzor=161) 301 K/CU MM 150-450 MEAN PLATELET VOLUME (BEAKER) (test kojj=487) 8.9 fL 9.4-12.4 NUCLEATED RED BLOOD CELLS (BEAKER) (test 0 /100 WBC 0-0 xvnh=044) [id number] 18:24:00 Test Item Value Reference Range Comments FERRITIN (BEAKER) (test vlxs=086) 36 ng/mL 5-275 VITAMIN D, [id number] 10:53:00 Test Item Value Reference Range Comments VITAMIN D 25-OH (BEAKER) (test awtk=6181) 10.7 ng/mL 6.6-49.9 Effective 02/02/2017: Reference Range ChangeNew: 6.6-49.9 ng/mL Previous: 13.0 -47.8 ng/mLRecommended Vitamin D Target Range: 30.0-40.0 ng/mLIRON, TIBC, % SAT. (WITHOUT FERRITIN)2018-02-10 08:06:00 Test Item Value Reference Range Comments IRON (BEAKER) (test qzfo=739) 26 ug/dL 40-160 TOTAL IRON BINDING CAPACITY (BEAKER) (test 274 ug/dL 250-450 nbdf=181) IRON % SATURATION (2) (BEAKER) (test zspl=5128) 9 % 20-55 CARCINOEMBRYONIC ANTIGEN (CEA)2018-02-10 08:00:00 Test Item Value Reference Range Comments CARCINOEMBRYONIC ANTIGEN (BEAKER) (test yphz=387) 2.6 ng/mL 0.0-5.0 PTH, [id number] 07:29:00 Test Item Value Reference Range Comments PARATHYROID HORMONE INTACT (BEAKER) (test 78.6 pg/mL 8.5-72.5 rsiz=092) URIC [id number] 06:42:00 Test Item Value Reference Range Comments URIC ACID (BEAKER) (test ysti=868) 6.2 mg/dL 2.6-7.2 BASIC METABOLIC [id number] 06:42:00 Test Item Value Reference Range Comments SODIUM (BEAKER) (test 140 meq/L 136-145 cmzt=031) POTASSIUM (BEAKER) (test 4.3 meq/L 3.5-5.1 dgsn=303) CHLORIDE (BEAKER) (test 110 meq/L 98-107 nymq=391) CO2 (BEAKER) (test 24 meq/L 22-29 zjdw=340) BLOOD UREA NITROGEN 14 mg/dL 7-21 (BEAKER) (test fqdy=797) CREATININE (BEAKER) (test 1.65 mg/dL 0.57-1.25 yagj=470) GLUCOSE RANDOM (BEAKER) 109 mg/dL 70-105 (test sgwc=433) CALCIUM (BEAKER) (test 8.0 mg/dL 8.4-10.2 gogo=687) EGFR (BEAKER) (test 42 mL/min/1.73 sq m ESTIMATED GFR IS NOT ztwz=2827) ACCURATE CREATININE CLEARANCE IN PREDICTING GLOMERULAR FILTRATION RATE. ESTIMATED GFR IS NOT APPLICABLE FOR DIALYSIS PATIENTS. CBC (HEMOGRAM ONLY)2018-02-10 06:06:00 Test Item Value Reference Range Comments WHITE BLOOD CELL COUNT (BEAKER) (test ihsz=553) 7.6 K/ L 3.5-10.5 RED BLOOD CELL COUNT (BEAKER) (test jjmd=780) 2.90 M/ L 4.63-6.08 HEMOGLOBIN (BEAKER) (test dweq=193) 8.6 GM/DL 13.7-17.5 HEMATOCRIT (BEAKER) (test idna=906) 27.6 % 40.1-51.0 MEAN CORPUSCULAR VOLUME (BEAKER) (test zfkb=935) 95.2 fL 79.0-92.2 MEAN CORPUSCULAR HEMOGLOBIN (BEAKER) (test 29.7 pg 25.7-32.2 igny=496) MEAN CORPUSCULAR HEMOGLOBIN CONC (BEAKER) (test 31.2 GM/DL 32.3-36.5 wupy=129) RED CELL DISTRIBUTION WIDTH (BEAKER) (test 14.6 % 11.6-14.4 ydqp=370) PLATELET COUNT (BEAKER) (test yjwy=701) 296 K/CU MM 150-450 MEAN PLATELET VOLUME (BEAKER) (test bxqw=349) 9.2 fL 9.4-12.4 NUCLEATED RED BLOOD CELLS (BEAKER) (test 0 /100 WBC 0-0 pfiz=117) CT, CHEST, WITH [id number] 00:28:00FINAL REPORT CT, CHEST, WITH CONTRAST, CT, [...] MDReport Verified Date/Time: 02/10/2018 00:28:46 Reading Location: [facility] C013Y CT Body Reading Room CT, [id number] 00:28:00FINAL REPORT CT, CHEST, WITH CONTRAST, CT, [...] surveillance is suggested. Signed: JR Mychal, Tam DUNLAPeport Verified Date/Time: 02/10/2018 00:28:46 Reading Location: [facility] C013Y CT Body Reading Room PROTEIN, RANDOM [id number] 18:49:00 Test Item Value Reference Range Comments PROTEIN, URINE (BEAKER) (test mdcz=2688) < mg/dL 0-14 BASIC METABOLIC [id number] 06:59:00 Test Item Value Reference Range Comments SODIUM (BEAKER) (test 142 meq/L 136-145 rlqw=169) POTASSIUM (BEAKER) (test 4.4 meq/L 3.5-5.1 grvo=294) CHLORIDE (BEAKER) (test 114 meq/L 98-107 ilcc=555) CO2 (BEAKER) (test 23 meq/L 22-29 iqkp=514) BLOOD UREA NITROGEN 14 mg/dL 7-21 (BEAKER) (test unhq=852) CREATININE (BEAKER) (test 1.58 mg/dL 0.57-1.25 akbj=755) GLUCOSE RANDOM (BEAKER) 95 mg/dL 70-105 (test moqz=200) CALCIUM (BEAKER) (test 7.9 mg/dL 8.4-10.2 sszi=736) EGFR (BEAKER) (test 45 mL/min/1.73 sq m ESTIMATED GFR IS NOT tsks=0144) ACCURATE CREATININE CLEARANCE IN PREDICTING GLOMERULAR FILTRATION RATE. ESTIMATED GFR IS NOT APPLICABLE FOR DIALYSIS PATIENTS. CBC (HEMOGRAM ONLY)2018-02-09 04:22:00 Test Item Value Reference Range Comments WHITE BLOOD CELL COUNT (BEAKER) (test ymdb=353) 7.9 K/ L 3.5-10.5 RED BLOOD CELL COUNT (BEAKER) (test hsls=539) 2.81 M/ L 4.63-6.08 HEMOGLOBIN (BEAKER) (test idxs=672) 8.5 GM/DL 13.7-17.5 HEMATOCRIT (BEAKER) (test lpba=576) 27.3 % 40.1-51.0 MEAN CORPUSCULAR VOLUME (BEAKER) (test wyab=959) 97.2 fL 79.0-92.2 MEAN CORPUSCULAR HEMOGLOBIN (BEAKER) (test 30.2 pg 25.7-32.2 ehqa=585) MEAN CORPUSCULAR HEMOGLOBIN CONC (BEAKER) (test 31.1 GM/DL 32.3-36.5 wirk=174) RED CELL DISTRIBUTION WIDTH (BEAKER) (test 14.9 % 11.6-14.4 gcvw=314) PLATELET COUNT (BEAKER) (test ulad=797) 294 K/CU MM 150-450 MEAN PLATELET VOLUME (BEAKER) (test ehph=565) 9.4 fL 9.4-12.4 NUCLEATED RED BLOOD CELLS (BEAKER) (test 0 /100 WBC 0-0 plci=809) [id number] 15:28:00 Test Item Value Reference Range Comments ACTIVATED CLOTTING TIME 114 sec TESTED AT [place] [id number] [facility] [place] (BEAKER) (test hziw=504) [place] [address] [id number] 14:58:00 Test Item Value Reference Range Comments ACTIVATED CLOTTING TIME 191 sec TESTED AT [address] (BEAKER) (test mcbv=734) [place] [address] BASIC METABOLIC [id number] 07:24:00 Test Item Value Reference Range Comments SODIUM (BEAKER) (test 141 meq/L 136-145 zmex=609) POTASSIUM (BEAKER) (test 4.1 meq/L 3.5-5.1 alrh=170) CHLORIDE (BEAKER) (test 116 meq/L 98-107 sudc=058) CO2 (BEAKER) (test 20 meq/L 22-29 hosi=079) BLOOD UREA NITROGEN 16 mg/dL 7-21 (BEAKER) (test ocfg=374) CREATININE (BEAKER) (test 1.68 mg/dL 0.57-1.25 yppq=090) GLUCOSE RANDOM (BEAKER) 106 mg/dL 70-105 (test rqnf=897) CALCIUM (BEAKER) (test 7.9 mg/dL 8.4-10.2 nhns=923) EGFR (BEAKER) (test 42 mL/min/1.73 sq m ESTIMATED GFR IS NOT yyfb=8937) ACCURATE CREATININE CLEARANCE IN PREDICTING GLOMERULAR FILTRATION RATE. ESTIMATED GFR IS NOT APPLICABLE FOR DIALYSIS PATIENTS. PROTHROMBIN TIME/[id number] 06:29:00 Test Item Value Reference Range Comments PROTIME (BEAKER) (test vgzx=018) 14.4 seconds 11.7-14.7 INR (BEAKER) (test pjku=718) 1.1 <=5.9 RECOMMENDED COUMADIN/WARFARIN INR THERAPY RANGESSTANDARD DOSE: 2.0 - 3.0 Includes: PROPHYLAXIS forvenous thrombosis, systemic embolization; TREATMENT for venous thrombosis and/or pulmonary embolus.HIGH RISK: Target INR is 2.5-3.5 for patients with mechanical heart valves.CBC (HEMOGRAM ONLY)2018-02-08 06:13:00 Test Item Value Reference Range Comments WHITE BLOOD CELL COUNT (BEAKER) (test vzhu=456) 7.2 K/ L 3.5-10.5 RED BLOOD CELL COUNT (BEAKER) (test asbr=556) 2.86 M/ L 4.63-6.08 HEMOGLOBIN (BEAKER) (test qzva=020) 8.7 GM/DL 13.7-17.5 HEMATOCRIT (BEAKER) (test imei=039) 28.1 % 40.1-51.0 MEAN CORPUSCULAR VOLUME (BEAKER) (test ypvn=069) 98.3 fL 79.0-92.2 MEAN CORPUSCULAR HEMOGLOBIN (BEAKER) (test 30.4 pg 25.7-32.2 blua=647) MEAN CORPUSCULAR HEMOGLOBIN CONC (BEAKER) (test 31.0 GM/DL 32.3-36.5 zfwe=446) RED CELL DISTRIBUTION WIDTH (BEAKER) (test 14.8 % 11.6-14.4 qvds=630) PLATELET COUNT (BEAKER) (test yktx=125) 317 K/CU MM 150-450 MEAN PLATELET VOLUME (BEAKER) (test nlib=461) 9.2 fL 9.4-12.4 NUCLEATED RED BLOOD CELLS (BEAKER) (test 0 /100 WBC 0-0 mquz=337) BASIC METABOLIC [id number] 07:01:00 Test Item Value Reference Range Comments SODIUM (BEAKER) (test 140 meq/L 136-145 qfho=430) POTASSIUM (BEAKER) (test 4.2 meq/L 3.5-5.1 srvi=108) CHLORIDE (BEAKER) (test 113 meq/L 98-107 lacd=702) CO2 (BEAKER) (test 21 meq/L 22-29 bnsf=858) BLOOD UREA NITROGEN 18 mg/dL 7-21 (BEAKER) (test cajc=997) CREATININE (BEAKER) (test 1.51 mg/dL 0.57-1.25 kubt=487) GLUCOSE RANDOM (BEAKER) 102 mg/dL 70-105 (test pmyl=612) CALCIUM (BEAKER) (test 8.1 mg/dL 8.4-10.2 wgxi=030) EGFR (BEAKER) (test 47 mL/min/1.73 sq m ESTIMATED GFR IS NOT apnt=7925) ACCURATE CREATININE CLEARANCE IN PREDICTING GLOMERULAR FILTRATION RATE. ESTIMATED GFR IS NOT APPLICABLE FOR DIALYSIS PATIENTS. PROTHROMBIN TIME/[id number] 05:33:00 Test Item Value Reference Range Comments PROTIME (BEAKER) (test fvxu=153) 15.3 seconds 11.7-14.7 INR (BEAKER) (test zvxl=039) 1.2 <=5.9 RECOMMENDED COUMADIN/WARFARIN INR THERAPY RANGESSTANDARD DOSE: 2.0 - 3.0 Includes: PROPHYLAXIS forvenous thrombosis, systemic embolization; TREATMENT for venous thrombosis and/or pulmonary embolus.HIGH RISK: Target INR is 2.5-3.5 for patients with mechanical heart valves.CBC (HEMOGRAM ONLY)2018-02-07 05:10:00 Test Item Value Reference Range Comments WHITE BLOOD CELL COUNT (BEAKER) (test rnam=992) 9.9 K/ L 3.5-10.5 RED BLOOD CELL COUNT (BEAKER) (test wkbc=741) 2.56 M/ L 4.63-6.08 HEMOGLOBIN (BEAKER) (test kken=922) 7.6 GM/DL 13.7-17.5 HEMATOCRIT (BEAKER) (test wmwk=712) 24.4 % 40.1-51.0 MEAN CORPUSCULAR VOLUME (BEAKER) (test xguf=059) 95.3 fL 79.0-92.2 MEAN CORPUSCULAR HEMOGLOBIN (BEAKER) (test 29.7 pg 25.7-32.2 wevx=680) MEAN CORPUSCULAR HEMOGLOBIN CONC (BEAKER) (test 31.1 GM/DL 32.3-36.5 oonc=318) RED CELL DISTRIBUTION WIDTH (BEAKER) (test 15.2 % 11.6-14.4 kmwp=502) PLATELET COUNT (BEAKER) (test bhcm=160) 355 K/CU MM 150-450 MEAN PLATELET VOLUME (BEAKER) (test eqzt=886) 9.2 fL 9.4-12.4 NUCLEATED RED BLOOD CELLS (BEAKER) (test 0 /100 WBC 0-0 rnfb=259) HEMOGLOBIN AND [id number] 21:29:00 Test Item Value Reference Range Comments HEMOGLOBIN (BEAKER) (test dcfw=784) 7.5 GM/DL 13.7-17.5 HEMATOCRIT (BEAKER) (test wksu=064) 23.2 % 40.1-51.0 PROTHROMBIN [id number] 10:11:00 Test Item Value Reference Range Comments PROTIME (BEAKER) (test ehdq=271) 19.0 seconds 11.7-14.7 INR (BEAKER) (test gauo=635) 1.6 <=5.9 RECOMMENDED COUMADIN/WARFARIN INR THERAPY RANGESSTANDARD DOSE: 2.0 - 3.0 Includes: PROPHYLAXIS forvenous thrombosis, systemic embolization; TREATMENT for venous thrombosis and/or pulmonary embolus.HIGH RISK: Target INR is 2.5-3.5 for patients with mechanical heart valves.HEMOGLOBIN AND [id number] 10 :03:00 Test Item Value Reference Range Comments HEMOGLOBIN (BEAKER) (test adnh=122) 8.3 GM/DL 13.7-17.5 HEMATOCRIT (BEAKER) (test hzrq=236) 25.9 % 40.1-51.0 BASIC METABOLIC [id number] 23:30:00 Test Item Value Reference Range Comments SODIUM (BEAKER) (test 138 meq/L 136-145 slvd=604) POTASSIUM (BEAKER) (test 4.2 meq/L 3.5-5.1 qsyi=651) CHLORIDE (BEAKER) (test 114 meq/L 98-107 rcgs=877) CO2 (BEAKER) (test 20 meq/L 22-29 uubg=969) BLOOD UREA NITROGEN 25 mg/dL 7-21 (BEAKER) (test fype=721) CREATININE (BEAKER) (test 1.83 mg/dL 0.57-1.25 ugpa=645) GLUCOSE RANDOM (BEAKER) 104 mg/dL 70-105 (test fyre=981) CALCIUM (BEAKER) (test 7.7 mg/dL 8.4-10.2 fcpt=821) EGFR (BEAKER) (test 38 mL/min/1.73 sq m ESTIMATED GFR IS NOT cwft=5164) ACCURATE CREATININE CLEARANCE IN PREDICTING GLOMERULAR FILTRATION RATE. ESTIMATED GFR IS NOT APPLICABLE FOR DIALYSIS PATIENTS. HEPATIC FUNCTION [id number] 23:04:00 Test Item Value Reference Range Comments TOTAL PROTEIN (BEAKER) (test sxdi=526) 5.1 gm/dL 6.0-8.3 ALBUMIN (BEAKER) (test exvo=9656) 3.0 g/dL 3.5-5.0 BILIRUBIN TOTAL (BEAKER) (test ddou=250) 0.3 mg/dL 0.2-1.2 BILIRUBIN DIRECT (BEAKER) (test vbxx=507) 0.1 mg/dL 0.1-0.5 ALKALINE PHOSPHATASE (BEAKER) (test gkgd=541) 67 U/L 40-150 AST (SGOT) (BEAKER) (test wkwr=404) 16 U/L 5-34 ALT (SGPT) (BEAKER) (test gvwe=837) 17 U/L 6-55 [id number] 23:03:00 Test Item Value Reference Range Comments PARTIAL THROMBOPLASTIN TIME (BEAKER) (test 44.4 seconds 22.5-36.0 ueql=506) PROTHROMBIN TIME/[id number] 23:02:00 Test Item Value Reference Range Comments PROTIME (BEAKER) (test dkdu=974) 34.9 seconds 11.7-14.7 INR (BEAKER) (test yseu=741) 3.5 <=5.9 RECOMMENDED COUMADIN/WARFARIN INR THERAPY RANGESSTANDARD DOSE: 2.0 - 3.0 Includes: PROPHYLAXIS forvenous thrombosis, systemic embolization; TREATMENT for venous thrombosis and/or pulmonary embolus.HIGH RISK: Target INR is 2.5-3.5 for patients with mechanical heart valves.CBC W/PLT COUNT & AUTO [id number] 22:47:00 Test Item Value Reference Range Comments WHITE BLOOD CELL COUNT (BEAKER) (test ulgg=597) 10.5 K/ L 3.5-10.5 RED BLOOD CELL COUNT (BEAKER) (test nymh=474) 2.01 M/ L 4.63-6.08 HEMOGLOBIN (BEAKER) (test rkgs=331) 6.1 GM/DL 13.7-17.5 HEMATOCRIT (BEAKER) (test nnde=533) 19.3 % 40.1-51.0 MEAN CORPUSCULAR VOLUME (BEAKER) (test kaeb=550) 96.0 fL 79.0-92.2 MEAN CORPUSCULAR HEMOGLOBIN (BEAKER) (test 30.3 pg 25.7-32.2 ssqi=072) MEAN CORPUSCULAR HEMOGLOBIN CONC (BEAKER) (test 31.6 GM/DL 32.3-36.5 pfbz=080) RED CELL DISTRIBUTION WIDTH (BEAKER) (test 15.0 % 11.6-14.4 ktfi=840) PLATELET COUNT (BEAKER) (test xvua=487) 377 K/CU MM 150-450 MEAN PLATELET VOLUME (BEAKER) (test xrbj=631) 8.7 fL 9.4-12.4 NUCLEATED RED BLOOD CELLS (BEAKER) (test 0 /100 WBC 0-0 isve=989) NEUTROPHILS RELATIVE PERCENT (BEAKER) (test 68 % vtwj=071) LYMPHOCYTES RELATIVE PERCENT (BEAKER) (test 24 % lfmy=158) MONOCYTES RELATIVE PERCENT (BEAKER) (test 6 % rzfu=632) EOSINOPHILS RELATIVE PERCENT (BEAKER) (test 2 % ajos=757) BASOPHILS RELATIVE PERCENT (BEAKER) (test 0 % ihdf=372) NEUTROPHILS ABSOLUTE COUNT (BEAKER) (test 7.11 K/ L 1.78-5.38 qsfb=460) LYMPHOCYTES ABSOLUTE COUNT (BEAKER) (test 2.46 K/ L 1.32-3.57 iibq=069) MONOCYTES ABSOLUTE COUNT (BEAKER) (test 0.65 K/ L 0.30-0.82 wenp=634) EOSINOPHILS ABSOLUTE COUNT (BEAKER) (test 0.17 K/ L 0.04-0.54 grwk=518) BASOPHILS ABSOLUTE COUNT (BEAKER) (test 0.04 K/ L 0.01-0.08 wmlb=734) IMMATURE GRANULOCYTES-RELATIVE PERCENT (BEAKER) 1 % 0-1 (test mobe=9536) [id number] 05:35:00 Test Item Value Reference Range Comments PHOSPHORUS (BEAKER) (test dybd=358) 2.7 mg/dL 2.3-4.7 [id number] 05:35:00 Test Item Value Reference Range Comments MAGNESIUM (BEAKER) (test umbk=661) 1.8 mg/dL 1.6-2.6 BASIC METABOLIC [id number] 05:35:00 Test Item Value Reference Range Comments SODIUM (BEAKER) (test 138 meq/L 136-145 zalz=177) POTASSIUM (BEAKER) (test 4.2 meq/L 3.5-5.1 yeog=001) CHLORIDE (BEAKER) (test 109 meq/L 98-107 hhnb=440) CO2 (BEAKER) (test 25 meq/L 22-29 paqk=412) BLOOD UREA NITROGEN 13 mg/dL 7-21 (BEAKER) (test hbjj=051) CREATININE (BEAKER) (test 1.49 mg/dL 0.57-1.25 dgji=821) GLUCOSE RANDOM (BEAKER) 104 mg/dL 70-105 (test fadm=600) CALCIUM (BEAKER) (test 8.4 mg/dL 8.4-10.2 uxbp=476) EGFR (BEAKER) (test 48 mL/min/1.73 sq m ESTIMATED GFR IS NOT tdxg=9677) ACCURATE CREATININE CLEARANCE IN PREDICTING GLOMERULAR FILTRATION RATE. ESTIMATED GFR IS NOT APPLICABLE FOR DIALYSIS PATIENTS. [id number] 05:29:00 Test Item Value Reference Range Comments PARTIAL THROMBOPLASTIN TIME (BEAKER) (test 130.9 seconds 22.5-36.0 khrl=034) PROTHROMBIN TIME/[id number] 05:17:00 Test Item Value Reference Range Comments PROTIME (BEAKER) (test gkdd=970) 24.2 seconds 11.7-14.7 INR (BEAKER) (test quuv=257) 2.2 <=5.9 RECOMMENDED COUMADIN/WARFARIN INR THERAPY RANGESSTANDARD DOSE: 2.0 - 3.0 Includes: PROPHYLAXIS forvenous thrombosis, systemic embolization; TREATMENT for venous thrombosis and/or pulmonary embolus.HIGH RISK: Target INR is 2.5-3.5 for patients with mechanical heart valves.[id number] 00:15:00 Test Item Value Reference Range Comments PARTIAL THROMBOPLASTIN TIME (BEAKER) (test 76.8 seconds 22.5-36.0 wuqs=327) [id number] 16:54:00 Test Item Value Reference Range Comments PARTIAL THROMBOPLASTIN TIME (BEAKER) (test 47.3 seconds 22.5-36.0 bcwt=705) [id number] 14:53:00 Test Item Value Reference Range Comments PARTIAL THROMBOPLASTIN TIME (BEAKER) (test 125.8 seconds 22.5-36.0 jyym=245) CBC (HEMOGRAM ONLY)2018-01-27 14:31:00 Test Item Value Reference Range Comments WHITE BLOOD CELL COUNT (BEAKER) (test haqr=484) 8.3 K/ L 3.5-10.5 RED BLOOD CELL COUNT (BEAKER) (test awvm=484) 3.28 M/ L 4.63-6.08 HEMOGLOBIN (BEAKER) (test edes=464) 9.8 GM/DL 13.7-17.5 HEMATOCRIT (BEAKER) (test lkzf=795) 31.4 % 40.1-51.0 MEAN CORPUSCULAR VOLUME (BEAKER) (test otiq=119) 95.7 fL 79.0-92.2 MEAN CORPUSCULAR HEMOGLOBIN (BEAKER) (test 29.9 pg 25.7-32.2 rvsq=645) MEAN CORPUSCULAR HEMOGLOBIN CONC (BEAKER) (test 31.2 GM/DL 32.3-36.5 zshw=111) RED CELL DISTRIBUTION WIDTH (BEAKER) (test 14.0 % 11.6-14.4 apfr=985) PLATELET COUNT (BEAKER) (test ufkp=831) 230 K/CU MM 150-450 MEAN PLATELET VOLUME (BEAKER) (test tdmj=779) 9.7 fL 9.4-12.4 NUCLEATED RED BLOOD CELLS (BEAKER) (test 0 /100 WBC 0-0 iylo=617) PROTHROMBIN TIME/[id number] 08:29:00 Test Item Value Reference Range Comments PROTIME (BEAKER) (test ncls=144) 16.1 seconds 11.7-14.7 INR (BEAKER) (test fcxp=844) 1.3 <=5.9 RECOMMENDED COUMADIN/WARFARIN INR THERAPY RANGESSTANDARD DOSE: 2.0 - 3.0 Includes: PROPHYLAXIS forvenous thrombosis, systemic embolization; TREATMENT for venous thrombosis and/or pulmonary embolus.HIGH RISK: Target INR is 2.5-3.5 for patients with mechanical heart valves.6 hours after starting heparin infusion and as indicated per sliding [id number] 07:17:00 Test Item Value Reference Range Comments PHOSPHORUS (BEAKER) (test qdxh=230) 2.1 mg/dL 2.3-4.7 [id number] 07:17:00 Test Item Value Reference Range Comments MAGNESIUM (BEAKER) (test nnmg=237) 2.0 mg/dL 1.6-2.6 BASIC METABOLIC [id number] 07:17:00 Test Item Value Reference Range Comments SODIUM (BEAKER) (test 138 meq/L 136-145 tvua=420) POTASSIUM (BEAKER) (test 4.2 meq/L 3.5-5.1 dfji=206) CHLORIDE (BEAKER) (test 109 meq/L 98-107 cfeu=057) CO2 (BEAKER) (test 25 meq/L 22-29 kwjc=992) BLOOD UREA NITROGEN 15 mg/dL 7-21 (BEAKER) (test utii=393) CREATININE (BEAKER) (test 1.47 mg/dL 0.57-1.25 plck=996) GLUCOSE RANDOM (BEAKER) 106 mg/dL 70-105 (test liwy=523) CALCIUM (BEAKER) (test 8.3 mg/dL 8.4-10.2 jllp=954) EGFR (BEAKER) (test 49 mL/min/1.73 sq m ESTIMATED GFR IS NOT sink=6111) ACCURATE CREATININE CLEARANCE IN PREDICTING GLOMERULAR FILTRATION RATE. ESTIMATED GFR IS NOT APPLICABLE FOR DIALYSIS PATIENTS. [id number] 07:07:00 Test Item Value Reference Range Comments PARTIAL THROMBOPLASTIN TIME (BEAKER) (test 107.3 seconds 22.5-36.0 cixc=488) 6 hours after starting heparin infusion and as indicated per sliding scaleCBC ( HEMOGRAM ONLY)2018-01-27 06:30:00 Test Item Value Reference Range Comments WHITE BLOOD CELL COUNT (BEAKER) (test rvns=274) 8.3 K/ L 3.5-10.5 RED BLOOD CELL COUNT (BEAKER) (test jdjx=754) 3.38 M/ L 4.63-6.08 HEMOGLOBIN (BEAKER) (test gqry=474) 10.1 GM/DL 13.7-17.5 HEMATOCRIT (BEAKER) (test qrii=626) 32.3 % 40.1-51.0 MEAN CORPUSCULAR VOLUME (BEAKER) (test euje=499) 95.6 fL 79.0-92.2 MEAN CORPUSCULAR HEMOGLOBIN (BEAKER) (test 29.9 pg 25.7-32.2 kukc=745) MEAN CORPUSCULAR HEMOGLOBIN CONC (BEAKER) (test 31.3 GM/DL 32.3-36.5 hexo=665) RED CELL DISTRIBUTION WIDTH (BEAKER) (test 13.9 % 11.6-14.4 ykjk=506) PLATELET COUNT (BEAKER) (test upti=341) 181 K/CU MM 150-450 MEAN PLATELET VOLUME (BEAKER) (test hhry=630) 9.4 fL 9.4-12.4 NUCLEATED RED BLOOD CELLS (BEAKER) (test 0 /100 WBC 0-0 jwfm=317) [id number] 01:12:00 Test Item Value Reference Range Comments PARTIAL THROMBOPLASTIN TIME (BEAKER) (test 98.7 seconds 22.5-36.0 ejkq=595) TISSUE [id number] 19:09:00Surgical Pathology Report Case: [id number] Authorizing Provider: Humza Oconnor MD Collected: 01/23/2018 1710 Ordering Location: [facility] CV Recovery Room 2 Received: 01/24/2018 0943 Pathologist: Timothy Mendoza MD Specimen: Soft Tissue, Other, RIGHT VASCULAR THROMBUS/CLOT SOFT TISSUE/THROMBUS, LEG, "RIGHT VASCULAR", THROMBECTOMY- FRAGMENTS OF THROMBUS Signing Pathologist Direct Phone Line: [phone] signed by Timothy Mendoza MD on 01/26/2018 at 7:09 [id number] vascular thrombusThe specimen is received in saline labeled with the patient's information labeled "right vascular thrombus" and consists of multiple fragments of blood clot measuring 3 x 2 x 0.5 cm in aggregate. Industrial Engineering Technologist portions submitted A1. CG/ pl [id number] 18:00:00 Test Item Value Reference Range Comments PARTIAL THROMBOPLASTIN TIME (BEAKER) (test 57.7 seconds 22.5-36.0 skuf=262) POCT-GLUCOSE [id number] 09:17:00 Test Item Value Reference Range Comments POC-GLUCOSE METER (BEAKER) 129 mg/dL 70-110 TESTED AT [address] (test jeuw=1971) [place] [address] [id number] 09:01:00 Test Item Value Reference Range Comments PARTIAL THROMBOPLASTIN TIME (BEAKER) (test 68.7 seconds 22.5-36.0 fpmh=395) [id number] 01:45:00 Test Item Value Reference Range Comments PARTIAL THROMBOPLASTIN TIME (BEAKER) (test 45.8 seconds 22.5-36.0 lqgt=559) PROTHROMBIN TIME/[id number] 01:43:00 Test Item Value Reference Range Comments PROTIME (BEAKER) (test sjex=070) 13.7 seconds 11.7-14.7 INR (BEAKER) (test lqee=398) 1.1 <=5.9 RECOMMENDED COUMADIN/WARFARIN INR THERAPY RANGESSTANDARD DOSE: 2.0 - 3.0 Includes: PROPHYLAXIS forvenous thrombosis, systemic embolization; TREATMENT for venous thrombosis and/or pulmonary embolus.HIGH RISK: Target INR is 2.5-3.5 for patients with mechanical heart valves.POCT-GLUCOSE [id number] 21:14:00 Test Item Value Reference Range Comments POC-GLUCOSE METER (BEAKER) 115 mg/dL 70-110 TESTED AT [address] (test qlgq=1838) [place] [address] PLATELET AGGREGATION: FUNCTION [id number] 20:37:00 Test Item Value Reference Range Comments WEAK ADP RESULT(BEAKER) (test 48 % 60-91 gjfl=9016) PLATELET FUNCTION SCREEN 40-49% indicates moderate INTERP (BEAKER) (test platelet dysfunction xxli=8341) [id number] Buzz Urbano M.D. (electonic (BEAKER) (test pakv=5803) signature) PLATELET COUNT AGG (BEAKER) 187 K/CU MM 150-450 (test vuje=5138) POCT-GLUCOSE [id number] 17:28:00 Test Item Value Reference Range Comments POC-GLUCOSE METER (BEAKER) 93 mg/dL 70-110 TESTED AT [address] (test gdsg=3397) [place] [address] POCT-GLUCOSE [id number] 12:12:00 Test Item Value Reference Range Comments POC-GLUCOSE METER (BEAKER) 108 mg/dL 70-110 TESTED AT [facility] [address] [facility] (test nqwb=8524) [facility] [address] [id number] 08:17:00 Test Item Value Reference Range Comments PARTIAL THROMBOPLASTIN TIME (BEAKER) (test 47.0 seconds 22.5-36.0 rtiu=668) While on heparin. aPTT target range 60 to 80 seconds Notify MD if aPTT is out of range.POCT-GLUCOSE [id number] 07:47:00 Test Item Value Reference Range Comments POC-GLUCOSE METER (BEAKER) 98 mg/dL 70-110 TESTED AT [facility] [address] [facility] (test ibts=9357) [facility] [address] [id number] 02:53:00 Test Item Value Reference Range Comments PARTIAL THROMBOPLASTIN TIME (BEAKER) (test 71.4 seconds 22.5-36.0 pukf=838) While on heparin. aPTT target range 60 to 80 seconds Notify MD if aPTT is out of range.PROTHROMBIN TIME/[id number] 02:51:00 Test Item Value Reference Range Comments PROTIME (BEAKER) (test usza=788) 13.5 seconds 11.7-14.7 INR (BEAKER) (test dwty=003) 1.0 <=5.9 RECOMMENDED COUMADIN/WARFARIN INR THERAPY RANGESSTANDARD DOSE: 2.0 - 3.0 Includes: PROPHYLAXIS forvenous thrombosis, systemic embolization; TREATMENT for venous thrombosis and/or pulmonary embolus.HIGH RISK: Target INR is 2.5-3.5 for patients with mechanical heart valves.While on heparin. aPTT target range 60 to 80 seconds Notify MD if aPTT is out of range.BASIC METABOLIC [id number] 02:48:00 Test Item Value Reference Range Comments SODIUM (BEAKER) (test 133 meq/L 136-145 ykva=293) POTASSIUM (BEAKER) (test 3.7 meq/L 3.5-5.1 puhz=519) CHLORIDE (BEAKER) (test 102 meq/L 98-107 gaul=752) CO2 (BEAKER) (test 24 meq/L 22-29 kawo=159) BLOOD UREA NITROGEN 19 mg/dL 7-21 (BEAKER) (test fsrm=206) CREATININE (BEAKER) (test 1.62 mg/dL 0.57-1.25 mzzg=742) GLUCOSE RANDOM (BEAKER) 106 mg/dL 70-105 (test tydl=446) CALCIUM (BEAKER) (test 7.9 mg/dL 8.4-10.2 kwqk=278) EGFR (BEAKER) (test 43 mL/min/1.73 sq m ESTIMATED GFR IS NOT pujd=2059) ACCURATE CREATININE CLEARANCE IN PREDICTING GLOMERULAR FILTRATION RATE. ESTIMATED GFR IS NOT APPLICABLE FOR DIALYSIS PATIENTS. [id number] 02:42:00 Test Item Value Reference Range Comments MAGNESIUM (BEAKER) (test izxv=268) 2.1 mg/dL 1.6-2.6 CBC (HEMOGRAM ONLY)2018-01-25 02:21:00 Test Item Value Reference Range Comments WHITE BLOOD CELL COUNT (BEAKER) (test zise=778) 10.8 K/ L 3.5-10.5 RED BLOOD CELL COUNT (BEAKER) (test mjog=005) 3.34 M/ L 4.63-6.08 HEMOGLOBIN (BEAKER) (test xhyl=231) 10.0 GM/DL 13.7-17.5 HEMATOCRIT (BEAKER) (test fgiy=411) 31.1 % 40.1-51.0 MEAN CORPUSCULAR VOLUME (BEAKER) (test lnop=734) 93.1 fL 79.0-92.2 MEAN CORPUSCULAR HEMOGLOBIN (BEAKER) (test 29.9 pg 25.7-32.2 sexg=336) MEAN CORPUSCULAR HEMOGLOBIN CONC (BEAKER) (test 32.2 GM/DL 32.3-36.5 hrqa=238) RED CELL DISTRIBUTION WIDTH (BEAKER) (test 14.0 % 11.6-14.4 snhv=462) PLATELET COUNT (BEAKER) (test cbcn=380) 186 K/CU MM 150-450 MEAN PLATELET VOLUME (BEAKER) (test zihv=901) 9.4 fL 9.4-12.4 NUCLEATED RED BLOOD CELLS (BEAKER) (test 0 /100 WBC 0-0 kyhz=116) POCT-GLUCOSE [id number] 21:10:00 Test Item Value Reference Range Comments POC-GLUCOSE METER (BEAKER) 124 mg/dL 70-110 TESTED AT [facility] [address] (test rpty=4616) [facility] [address] [id number] 20:38:00 Test Item Value Reference Range Comments PARTIAL THROMBOPLASTIN TIME (BEAKER) (test 48.6 seconds 22.5-36.0 wnkp=186) PLATELET AGGREGATION: FUNCTION [id number] 18:24:00 Test Item Value Reference Range Comments WEAK ADP RESULT(BEAKER) (test 33 % 60-91 hsbl=6209) PLATELET FUNCTION SCREEN 0-39% indicates marked platelet INTERP (BEAKER) (test dysfunction gmyg=1044) [id number]-9430 Buzz Urbano M.D. (electonic (BEAKER) (test viwy=8007) signature) PLATELET COUNT AGG (BEAKER) 242 K/CU MM 150-450 (test okct=5222) PLATELET AGGREGATION: FUNCTION [id number] 18:22:00 Test Item Value Reference Range Comments WEAK ADP RESULT(BEAKER) (test 25 % 60-91 bjpz=8715) PLATELET FUNCTION SCREEN 0-39% indicates marked platelet INTERP (BEAKER) (test dysfunction pqae=9850) [id number] Buzz Urbano M.D. (electonic (BEAKER) (test buxb=7538) signature) PLATELET COUNT AGG (BEAKER) 251 K/CU MM 150-450 (test bgeb=3185) [id number] 16:16:00 Test Item Value Reference Range Comments PARTIAL THROMBOPLASTIN TIME (BEAKER) (test 81.3 seconds 22.5-36.0 xkhk=436) [id number] 15:37:00 Test Item Value Reference Range Comments PARTIAL THROMBOPLASTIN TIME (BEAKER) (test 38.5 seconds 22.5-36.0 mwtw=144) While on heparin. aPTT target range 50 to 80 seconds Notify MD if aPTT is out of range.HEMOGLOBIN [id number] 12:50:00 Test Item Value Reference Range Comments HEMOGLOBIN A1C (BEAKER) (test kkpn=879) 5.5 % 4.3-6.1 POCT-GLUCOSE [id number] 11:33:00 Test Item Value Reference Range Comments POC-GLUCOSE METER (BEAKER) 100 mg/dL 70-110 TESTED AT [address] (test vqel=6005) [facility] [address] [id number] 08:35:00 Test Item Value Reference Range Comments PARTIAL THROMBOPLASTIN TIME (BEAKER) (test 44.9 seconds 22.5-36.0 jzzg=952) [id number] 04:15:00 Test Item Value Reference Range Comments MAGNESIUM (BEAKER) (test iuue=986) 1.9 mg/dL 1.6-2.6 BASIC METABOLIC [id number] 04:15:00 Test Item Value Reference Range Comments SODIUM (BEAKER) (test 136 meq/L 136-145 prvy=250) POTASSIUM (BEAKER) (test 4.4 meq/L 3.5-5.1 qjbv=708) CHLORIDE (BEAKER) (test 107 meq/L 98-107 eebk=967) CO2 (BEAKER) (test 22 meq/L 22-29 gibo=635) BLOOD UREA NITROGEN 16 mg/dL 7-21 (BEAKER) (test rpkv=053) CREATININE (BEAKER) (test 1.54 mg/dL 0.57-1.25 khjm=811) GLUCOSE RANDOM (BEAKER) 129 mg/dL 70-105 (test lvif=051) CALCIUM (BEAKER) (test 8.1 mg/dL 8.4-10.2 oetx=061) EGFR (BEAKER) (test 46 mL/min/1.73 sq m ESTIMATED GFR IS NOT kcjy=1569) ACCURATE CREATININE CLEARANCE IN PREDICTING GLOMERULAR FILTRATION RATE. ESTIMATED GFR IS NOT APPLICABLE FOR DIALYSIS PATIENTS. [id number] 04:12:00 Test Item Value Reference Range Comments PARTIAL THROMBOPLASTIN TIME (BEAKER) (test 65.1 seconds 22.5-36.0 dfqi=973) POCT-GLUCOSE [id number] 04:11:00 Test Item Value Reference Range Comments POC-GLUCOSE METER (BEAKER) 128 mg/dL 70-110 TESTED AT [place] [id number] [facility] (test gzzk=6626) [facility] [address] PROTHROMBIN [id number] 04:11:00 Test Item Value Reference Range Comments PROTIME (BEAKER) (test vljg=305) 14.8 seconds 11.7-14.7 INR (BEAKER) (test wzhh=005) 1.2 <=5.9 RECOMMENDED COUMADIN/WARFARIN INR THERAPY RANGESSTANDARD DOSE: 2.0 - 3.0 Includes: PROPHYLAXIS forvenous thrombosis, systemic embolization; TREATMENT for venous thrombosis and/or pulmonary embolus.HIGH RISK: Target INR is 2.5-3.5 for patients with mechanical heart valves.CBC (HEMOGRAM ONLY)2018-01-24 03:59:00 Test Item Value Reference Range Comments WHITE BLOOD CELL COUNT (BEAKER) (test qrbv=102) 15.9 K/ L 3.5-10.5 RED BLOOD CELL COUNT (BEAKER) (test seqf=850) 3.85 M/ L 4.63-6.08 HEMOGLOBIN (BEAKER) (test dwpk=206) 11.7 GM/DL 13.7-17.5 HEMATOCRIT (BEAKER) (test pwep=848) 35.7 % 40.1-51.0 MEAN CORPUSCULAR VOLUME (BEAKER) (test pyoe=378) 92.7 fL 79.0-92.2 MEAN CORPUSCULAR HEMOGLOBIN (BEAKER) (test 30.4 pg 25.7-32.2 eptv=151) MEAN CORPUSCULAR HEMOGLOBIN CONC (BEAKER) (test 32.8 GM/DL 32.3-36.5 penb=922) RED CELL DISTRIBUTION WIDTH (BEAKER) (test 13.7 % 11.6-14.4 fltp=088) PLATELET COUNT (BEAKER) (test aceg=717) 250 K/CU MM 150-450 MEAN PLATELET VOLUME (BEAKER) (test zerf=595) 9.8 fL 9.4-12.4 NUCLEATED RED BLOOD CELLS (BEAKER) (test 0 /100 WBC 0-0 aewv=117) RAD, CHEST, 1 VIEW, NON [id number] 00:09:00Reason for exam:->central line placement in the [...] MDReport Verified Date/Time: 01/24/2018 00:09:20 Reading Location: [facility] [id number] Consult Reading Room [id number] 23:29:00 Test Item Value Reference Range Comments PARTIAL THROMBOPLASTIN TIME (BEAKER) (test > seconds 22.5-36.0 hjoh=280) POCT-GLUCOSE [id number] 23:00:00 Test Item Value Reference Range Comments POC-GLUCOSE METER (BEAKER) 142 mg/dL 70-110 TESTED AT [facility] [address] [facility] (test kpuo=2882) [facility] [address] [id number] 22:22:00 Test Item Value Reference Range Comments MAGNESIUM (BEAKER) (test xrds=536) 1.9 mg/dL 1.6-2.6 CALCIUM, [id number] 22:10:00 Test Item Value Reference Range Comments CALCIUM IONIZED (BEAKER) (test yffz=453) 1.04 mmol/L 1.12-1.27 PH, BLOOD (BEAKER) (test eeao=4674) 7.41 HEPATITIS B SURFACE [id number] 19:32:00 Test Item Value Reference Range Comments HEPATITIS B SURFACE ANTIGEN (2) (BEAKER) (test Nonreactive Nonreactive ysaa=5136) HIV-1 ANTIGEN WITH HIV-1/2 [id number] 19:32:00 Test Item Value Reference Range Comments HIV-1 ANTIGEN WITH HIV 1\\T\\2 ANTIBODY (2) Nonreactive Nonreactive (BEAKER) (test uueq=3804) [id number] 19:23:00 Test Item Value Reference Range Comments PARTIAL THROMBOPLASTIN TIME (BEAKER) (test > seconds 22.5-36.0 xvjy=039) BASIC METABOLIC [id number] 19:01:00 Test Item Value Reference Range Comments SODIUM (BEAKER) (test 136 meq/L 136-145 vutz=378) POTASSIUM (BEAKER) (test 4.6 meq/L 3.5-5.1 cuon=084) CHLORIDE (BEAKER) (test 109 meq/L 98-107 ggnx=265) CO2 (BEAKER) (test 19 meq/L 22-29 bevq=124) BLOOD UREA NITROGEN 14 mg/dL 7-21 (BEAKER) (test vtuf=284) CREATININE (BEAKER) (test 1.75 mg/dL 0.57-1.25 dijp=481) GLUCOSE RANDOM (BEAKER) 154 mg/dL 70-105 (test tzri=476) CALCIUM (BEAKER) (test 8.1 mg/dL 8.4-10.2 sjtn=154) EGFR (BEAKER) (test 40 mL/min/1.73 sq m ESTIMATED GFR IS NOT yzou=7813) ACCURATE CREATININE CLEARANCE IN PREDICTING GLOMERULAR FILTRATION RATE. ESTIMATED GFR IS NOT APPLICABLE FOR DIALYSIS PATIENTS. CBC (HEMOGRAM ONLY)2018-01-23 18:45:00 Test Item Value Reference Range Comments WHITE BLOOD CELL COUNT (BEAKER) (test ujgs=676) 15.9 K/ L 3.5-10.5 RED BLOOD CELL COUNT (BEAKER) (test bzzz=118) 4.00 M/ L 4.63-6.08 HEMOGLOBIN (BEAKER) (test nqny=044) 11.9 GM/DL 13.7-17.5 HEMATOCRIT (BEAKER) (test viup=794) 38.0 % 40.1-51.0 MEAN CORPUSCULAR VOLUME (BEAKER) (test qohu=415) 95.0 fL 79.0-92.2 MEAN CORPUSCULAR HEMOGLOBIN (BEAKER) (test 29.8 pg 25.7-32.2 fdvd=488) MEAN CORPUSCULAR HEMOGLOBIN CONC (BEAKER) (test 31.3 GM/DL 32.3-36.5 semw=794) RED CELL DISTRIBUTION WIDTH (BEAKER) (test 13.7 % 11.6-14.4 kkki=207) PLATELET COUNT (BEAKER) (test mfuj=781) 253 K/CU MM 150-450 MEAN PLATELET VOLUME (BEAKER) (test drnv=304) 9.7 fL 9.4-12.4 NUCLEATED RED BLOOD CELLS (BEAKER) (test 0 /100 WBC 0-0 izyo=193) BLOOD GAS, [id number] 18:42:00 Test Item Value Reference Range Comments PH ARTERIAL (BEAKER) (test eqds=959) 7.34 7.35-7.45 PCO2 ARTERIAL (BEAKER) (test yacn=991) 38 mmHg 35-45 PO2 ARTERIAL (BEAKER) (test tkss=963) 92 mmHg 80-90 O2 SATURATION ARTERIAL (BEAKER) (test eakh=616) 97.4 % 96.0-97.0 HCO3 ARTERIAL (BEAKER) (test hbgf=244) 21 mmol/L 21-29 BASE EXCESS ARTERIAL (BEAKER) (test pser=404) -5.3 mmol/L -2.0-3.0 PATIENT TEMPERATURE (BEAKER) (test mvpn=8329) 34.7 C FIO2 (BEAKER) (test cldd=3691) 28.0 % GLUCOSE-STAT [id number] 18:42:00 Test Item Value Reference Range Comments GLUCOSE RANDOM (BEAKER) (test teiq=901) 149 mg/dL 70-110 POTASSIUM-STAT [id number] 18:42:00 Test Item Value Reference Range Comments POTASSIUM (BEAKER) (test puog=103) 4.5 meq/L 3.6-5.5 [id number] 17:53:00 Test Item Value Reference Range Comments ACTIVATED CLOTTING TIME 307 sec TESTED AT [facility] [address] (BEAKER) (test cgwx=688) [place] [address] [id number] 17:53:00 Test Item Value Reference Range Comments ACTIVATED CLOTTING TIME 312 sec TESTED AT [place] [id number] (BEAKER) (test afjk=066) [place] [address] [id number] 17:53:00 Test Item Value Reference Range Comments ACTIVATED CLOTTING TIME 263 sec TESTED AT [place] [id number] (BEAKER) (test hfel=645) [place] [address] [id number] 17:53:00 Test Item Value Reference Range Comments ACTIVATED CLOTTING TIME 235 sec TESTED AT [place] [id number] (BEAKER) (test zcpj=563) [place] [address] BASIC METABOLIC [id number] 16:20:00 Test Item Value Reference Range Comments SODIUM (BEAKER) (test 136 meq/L 136-145 cmok=243) POTASSIUM (BEAKER) (test 3.9 meq/L 3.5-5.1 hnmw=331) CHLORIDE (BEAKER) (test 107 meq/L 98-107 rowe=397) CO2 (BEAKER) (test 22 meq/L 22-29 qspw=881) BLOOD UREA NITROGEN 15 mg/dL 7-21 (BEAKER) (test bcjy=394) CREATININE (BEAKER) (test 1.63 mg/dL 0.57-1.25 igrw=508) GLUCOSE RANDOM (BEAKER) 103 mg/dL 70-105 (test ujbw=954) CALCIUM (BEAKER) (test 8.4 mg/dL 8.4-10.2 kqjo=832) EGFR (BEAKER) (test 43 mL/min/1.73 sq m ESTIMATED GFR IS NOT dbxw=7924) ACCURATE CREATININE CLEARANCE IN PREDICTING GLOMERULAR FILTRATION RATE. ESTIMATED GFR IS NOT APPLICABLE FOR DIALYSIS PATIENTS. [id number] 15:46:00 Test Item Value Reference Range Comments PARTIAL THROMBOPLASTIN TIME (BEAKER) (test 24.7 seconds 22.5-36.0 wjxg=117) PROTHROMBIN [id number] 15:45:00 Test Item Value Reference Range Comments PROTIME (BEAKER) (test suid=626) 14.0 seconds 11.7-14.7 INR (BEAKER) (test pden=031) 1.1 <=5.9 RECOMMENDED COUMADIN/WARFARIN INR THERAPY RANGESSTANDARD DOSE: 2.0 - 3.0 Includes: PROPHYLAXIS forvenous thrombosis, systemic embolization; TREATMENT for venous thrombosis and/or pulmonary embolus.HIGH RISK: Target INR is 2.5-3.5 for patients with mechanical heart valves.CBC W/PLT COUNT & AUTO [id number] 15:41:00 Test Item Value Reference Range Comments WHITE BLOOD CELL COUNT (BEAKER) (test pmnt=532) 14.3 K/ L 3.5-10.5 RED BLOOD CELL COUNT (BEAKER) (test jhbh=723) 4.32 M/ L 4.63-6.08 HEMOGLOBIN (BEAKER) (test qltv=157) 13.0 GM/DL 13.7-17.5 HEMATOCRIT (BEAKER) (test rxnh=286) 40.7 % 40.1-51.0 MEAN CORPUSCULAR VOLUME (BEAKER) (test uyvv=496) 94.2 fL 79.0-92.2 MEAN CORPUSCULAR HEMOGLOBIN (BEAKER) (test 30.1 pg 25.7-32.2 qqjr=026) MEAN CORPUSCULAR HEMOGLOBIN CONC (BEAKER) (test 31.9 GM/DL 32.3-36.5 gohd=762) RED CELL DISTRIBUTION WIDTH (BEAKER) (test 13.6 % 11.6-14.4 xhbl=315) PLATELET COUNT (BEAKER) (test acuv=987) 240 K/CU MM 150-450 MEAN PLATELET VOLUME (BEAKER) (test vwag=569) 9.6 fL 9.4-12.4 NUCLEATED RED BLOOD CELLS (BEAKER) (test 0 /100 WBC 0-0 gmxu=053) NEUTROPHILS RELATIVE PERCENT (BEAKER) (test 83 % urvk=194) LYMPHOCYTES RELATIVE PERCENT (BEAKER) (test 11 % xetx=842) MONOCYTES RELATIVE PERCENT (BEAKER) (test 5 % xbog=620) EOSINOPHILS RELATIVE PERCENT (BEAKER) (test 0 % mdjk=868) BASOPHILS RELATIVE PERCENT (BEAKER) (test 0 % oarz=385) NEUTROPHILS ABSOLUTE COUNT (BEAKER) (test 11.79 K/ L 1.78-5.38 rhsf=551) LYMPHOCYTES ABSOLUTE COUNT (BEAKER) (test 1.57 K/ L 1.32-3.57 mozy=198) MONOCYTES ABSOLUTE COUNT (BEAKER) (test 0.75 K/ L 0.30-0.82 vbhp=117) EOSINOPHILS ABSOLUTE COUNT (BEAKER) (test 0.01 K/ L 0.04-0.54 scmd=124) BASOPHILS ABSOLUTE COUNT (BEAKER) (test 0.05 K/ L 0.01-0.08 gvoy=093) IMMATURE GRANULOCYTES-RELATIVE PERCENT (BEAKER) 1 % 0-1 (test ydhe=5333) TISSUE [id number] 14:59:00Surgical Pathology Report Case: [id number] Authorizing Provider: Humza Oconnor MD Collected: 11/17/2017 0937 Ordering Location: [facility] CV Recovery Room 2 Received: 11/17/2017 1003 Pathologist: Vince Tobias MD Specimen: Plaque, right femoral plaque ARTERY, RIGHT FEMORAL, THROMBECTOMY :FIBRIN THROMBUSFIBROVASCULAR AND FIBROADIPOSE TISSUE Signing Pathologist Direct Phone Line: [phone] signed by Vince Tobias MD on at 2:59 [id number] femoral plaqueReceived in saline labeled "plaque", description "right femoral plaque" arefour irregular, caban-white to yellow-rose, rubbery fragments of plaque-like material measuring 3.0 x 2.5 x 0.3 cm in aggregate. sectioning reveals no discrete masses. Industrial Engineering Technologist sections are submitted in cassette A1. DB/ew [facility] METABOLIC [id number] 06: 17:00 Test Item Value Reference Range Comments SODIUM (BEAKER) (test 137 meq/L 136-145 tkma=110) POTASSIUM (BEAKER) (test 4.0 meq/L 3.5-5.1 izek=917) CHLORIDE (BEAKER) (test 108 meq/L 98-107 aisa=813) CO2 (BEAKER) (test 22 meq/L 22-29 fqiw=443) BLOOD UREA NITROGEN 19 mg/dL 7-21 (BEAKER) (test sxwb=248) CREATININE (BEAKER) (test 1.54 mg/dL 0.57-1.25 fehj=300) GLUCOSE RANDOM (BEAKER) 99 mg/dL 70-105 (test kegd=904) CALCIUM (BEAKER) (test 8.7 mg/dL 8.4-10.2 splh=526) EGFR (BEAKER) (test 46 mL/min/1.73 sq m ESTIMATED GFR IS NOT grgh=9327) ACCURATE CREATININE CLEARANCE IN PREDICTING GLOMERULAR FILTRATION RATE. ESTIMATED GFR IS NOT APPLICABLE FOR DIALYSIS PATIENTS. CBC (HEMOGRAM ONLY)2017-11-21 05:21:00 Test Item Value Reference Range Comments WHITE BLOOD CELL COUNT (BEAKER) (test snno=262) 8.6 K/ L 3.5-10.5 RED BLOOD CELL COUNT (BEAKER) (test fepw=951) 4.33 M/ L 4.63-6.08 HEMOGLOBIN (BEAKER) (test wzjw=711) 14.1 GM/DL 13.7-17.5 HEMATOCRIT (BEAKER) (test tbqg=355) 43.3 % 40.1-51.0 MEAN CORPUSCULAR VOLUME (BEAKER) (test qlwr=971) 100.0 fL 79.0-92.2 MEAN CORPUSCULAR HEMOGLOBIN (BEAKER) (test 32.6 pg 25.7-32.2 lpdy=266) MEAN CORPUSCULAR HEMOGLOBIN CONC (BEAKER) (test 32.6 GM/DL 32.3-36.5 azoq=477) RED CELL DISTRIBUTION WIDTH (BEAKER) (test 15.2 % 11.6-14.4 lubo=320) PLATELET COUNT (BEAKER) (test ispm=392) 173 K/CU MM 150-450 MEAN PLATELET VOLUME (BEAKER) (test qipj=076) 9.7 fL 9.4-12.4 NUCLEATED RED BLOOD CELLS (BEAKER) (test 0 /100 WBC 0-0 rdta=068) BASIC METABOLIC [id number] 10:29:00 Test Item Value Reference Range Comments SODIUM (BEAKER) (test 138 meq/L 136-145 rlvi=796) POTASSIUM (BEAKER) (test 4.0 meq/L 3.5-5.1 tlau=797) CHLORIDE (BEAKER) (test 109 meq/L 98-107 mvra=033) CO2 (BEAKER) (test 21 meq/L 22-29 kzij=242) BLOOD UREA NITROGEN 15 mg/dL 7-21 (BEAKER) (test jbhu=307) CREATININE (BEAKER) (test 1.60 mg/dL 0.57-1.25 zugp=816) GLUCOSE RANDOM (BEAKER) 101 mg/dL 70-105 (test iweo=271) CALCIUM (BEAKER) (test 8.7 mg/dL 8.4-10.2 ykmi=780) EGFR (BEAKER) (test 44 mL/min/1.73 sq m ESTIMATED GFR IS NOT qqge=6963) ACCURATE CREATININE CLEARANCE IN PREDICTING GLOMERULAR FILTRATION RATE. ESTIMATED GFR IS NOT APPLICABLE FOR DIALYSIS PATIENTS. LIPID [id number] 04:26:00 Test Item Value Reference Range Comments TRIGLYCERIDES (BEAKER) (test kkmx=682) 119 mg/dL CHOLESTEROL (BEAKER) (test agig=187) 123 mg/dL HDL CHOLESTEROL (BEAKER) (test aejs=489) 26 mg/dL LDL CHOLESTEROL CALCULATED (BEAKER) (test 73 mg/dL pbtw=061) Triglyceride Reference Range: Low Risk <150 Borderline 150- 199 High Risk 200-499 Very High Risk >=500Cholesterol Reference Range: Low Risk <200 Borderline 200-239 High Risk > 240HDL Cholesterol Reference Range: Low Risk >=60 High Risk <40LDL Cholesterol Reference Range: Optimal <100 Near Optimal 100-129 Borderline 130-159 High 160-189 Very High >=[id number] 05:39:00 Test Item Value Reference Range Comments MAGNESIUM (BEAKER) (test lbdy=637) 2.0 mg/dL 1.6-2.6 BASIC METABOLIC [id number] 05:39:00 Test Item Value Reference Range Comments SODIUM (BEAKER) (test 137 meq/L 136-145 yhvl=521) POTASSIUM (BEAKER) (test 4.0 meq/L 3.5-5.1 dlcc=342) CHLORIDE (BEAKER) (test 109 meq/L 98-107 saaj=093) CO2 (BEAKER) (test 22 meq/L 22-29 nlve=789) BLOOD UREA NITROGEN 16 mg/dL 7-21 (BEAKER) (test qbvz=712) CREATININE (BEAKER) (test 1.76 mg/dL 0.57-1.25 sank=809) GLUCOSE RANDOM (BEAKER) 101 mg/dL 70-105 (test oogy=108) CALCIUM (BEAKER) (test 8.5 mg/dL 8.4-10.2 iazr=996) EGFR (BEAKER) (test 39 mL/min/1.73 sq m ESTIMATED GFR IS NOT rjan=2136) ACCURATE CREATININE CLEARANCE IN PREDICTING GLOMERULAR FILTRATION RATE. ESTIMATED GFR IS NOT APPLICABLE FOR DIALYSIS PATIENTS. CBC W/PLT COUNT & AUTO [id number] 05:04:00 Test Item Value Reference Range Comments WHITE BLOOD CELL COUNT (BEAKER) (test xhdc=927) 8.2 K/ L 3.5-10.5 RED BLOOD CELL COUNT (BEAKER) (test sxpj=702) 4.08 M/ L 4.63-6.08 HEMOGLOBIN (BEAKER) (test iooz=207) 13.1 GM/DL 13.7-17.5 HEMATOCRIT (BEAKER) (test wask=214) 40.2 % 40.1-51.0 MEAN CORPUSCULAR VOLUME (BEAKER) (test urzj=436) 98.5 fL 79.0-92.2 MEAN CORPUSCULAR HEMOGLOBIN (BEAKER) (test 32.1 pg 25.7-32.2 nfxl=078) MEAN CORPUSCULAR HEMOGLOBIN CONC (BEAKER) (test 32.6 GM/DL 32.3-36.5 nnmv=920) RED CELL DISTRIBUTION WIDTH (BEAKER) (test 15.0 % 11.6-14.4 lkse=822) PLATELET COUNT (BEAKER) (test yumu=148) 153 K/CU MM 150-450 MEAN PLATELET VOLUME (BEAKER) (test ngmp=456) 9.7 fL 9.4-12.4 NUCLEATED RED BLOOD CELLS (BEAKER) (test 0 /100 WBC 0-0 cxug=589) NEUTROPHILS RELATIVE PERCENT (BEAKER) (test 68 % woyt=566) LYMPHOCYTES RELATIVE PERCENT (BEAKER) (test 19 % xvnr=110) MONOCYTES RELATIVE PERCENT (BEAKER) (test 9 % btea=227) EOSINOPHILS RELATIVE PERCENT (BEAKER) (test 4 % ooqn=529) BASOPHILS RELATIVE PERCENT (BEAKER) (test 0 % csiw=189) NEUTROPHILS ABSOLUTE COUNT (BEAKER) (test 5.57 K/ L 1.78-5.38 liiz=018) LYMPHOCYTES ABSOLUTE COUNT (BEAKER) (test 1.60 K/ L 1.32-3.57 kydm=380) MONOCYTES ABSOLUTE COUNT (BEAKER) (test 0.70 K/ L 0.30-0.82 ueav=221) EOSINOPHILS ABSOLUTE COUNT (BEAKER) (test 0.30 K/ L 0.04-0.54 dihi=071) BASOPHILS ABSOLUTE COUNT (BEAKER) (test 0.03 K/ L 0.01-0.08 vuua=174) IMMATURE GRANULOCYTES-RELATIVE PERCENT (BEAKER) 1 % 0-1 (test uoul=2433) [id number] 07:37:00 Test Item Value Reference Range Comments MAGNESIUM (BEAKER) (test gyux=587) 2.0 mg/dL 1.6-2.6 BASIC METABOLIC [id number] 07:37:00 Test Item Value Reference Range Comments SODIUM (BEAKER) (test 136 meq/L 136-145 xqap=038) POTASSIUM (BEAKER) (test 4.4 meq/L 3.5-5.1 hutj=046) CHLORIDE (BEAKER) (test 106 meq/L 98-107 uxzf=116) CO2 (BEAKER) (test 22 meq/L 22-29 wuxi=619) BLOOD UREA NITROGEN 15 mg/dL 7-21 (BEAKER) (test tnhe=486) CREATININE (BEAKER) (test 1.59 mg/dL 0.57-1.25 vqgb=669) GLUCOSE RANDOM (BEAKER) 99 mg/dL 70-105 (test ghql=808) CALCIUM (BEAKER) (test 8.7 mg/dL 8.4-10.2 fjkl=901) EGFR (BEAKER) (test 44 mL/min/1.73 sq m ESTIMATED GFR IS NOT jjog=5895) ACCURATE CREATININE CLEARANCE IN PREDICTING GLOMERULAR FILTRATION RATE. ESTIMATED GFR IS NOT APPLICABLE FOR DIALYSIS PATIENTS. BASIC METABOLIC [id number] 11:14:00 Test Item Value Reference Range Comments SODIUM (BEAKER) (test 139 meq/L 136-145 fivg=057) POTASSIUM (BEAKER) (test 4.5 meq/L 3.5-5.1 emwj=594) CHLORIDE (BEAKER) (test 111 meq/L 98-107 uzto=547) CO2 (BEAKER) (test 21 meq/L 22-29 eojg=710) BLOOD UREA NITROGEN 12 mg/dL 7-21 (BEAKER) (test umbi=489) CREATININE (BEAKER) (test 1.58 mg/dL 0.57-1.25 grev=926) GLUCOSE RANDOM (BEAKER) 103 mg/dL 70-105 (test keqd=563) CALCIUM (BEAKER) (test 9.2 mg/dL 8.4-10.2 awer=430) EGFR (BEAKER) (test 45 mL/min/1.73 sq m ESTIMATED GFR IS NOT etiu=1062) ACCURATE CREATININE CLEARANCE IN PREDICTING GLOMERULAR FILTRATION RATE. ESTIMATED GFR IS NOT APPLICABLE FOR DIALYSIS PATIENTS. CBC W/PLT COUNT & AUTO [id number] 10:50:00 Test Item Value Reference Range Comments WHITE BLOOD CELL COUNT (BEAKER) (test gjsm=816) 8.7 K/ L 3.5-10.5 RED BLOOD CELL COUNT (BEAKER) (test lwfi=254) 4.12 M/ L 4.63-6.08 HEMOGLOBIN (BEAKER) (test xdco=172) 13.4 GM/DL 13.7-17.5 HEMATOCRIT (BEAKER) (test axod=707) 41.5 % 40.1-51.0 MEAN CORPUSCULAR VOLUME (BEAKER) (test ngix=790) 100.7 fL 79.0-92.2 MEAN CORPUSCULAR HEMOGLOBIN (BEAKER) (test 32.5 pg 25.7-32.2 mjxp=324) MEAN CORPUSCULAR HEMOGLOBIN CONC (BEAKER) (test 32.3 GM/DL 32.3-36.5 plju=597) RED CELL DISTRIBUTION WIDTH (BEAKER) (test 15.1 % 11.6-14.4 uhgb=704) PLATELET COUNT (BEAKER) (test gedz=848) 231 K/CU MM 150-450 MEAN PLATELET VOLUME (BEAKER) (test ggwu=675) 8.9 fL 9.4-12.4 NUCLEATED RED BLOOD CELLS (BEAKER) (test 0 /100 WBC 0-0 bfpv=631) NEUTROPHILS RELATIVE PERCENT (BEAKER) (test 70 % caim=597) LYMPHOCYTES RELATIVE PERCENT (BEAKER) (test 21 % mdfd=453) MONOCYTES RELATIVE PERCENT (BEAKER) (test 6 % irhy=717) EOSINOPHILS RELATIVE PERCENT (BEAKER) (test 3 % subp=155) BASOPHILS RELATIVE PERCENT (BEAKER) (test 0 % ymym=476) NEUTROPHILS ABSOLUTE COUNT (BEAKER) (test 6.04 K/ L 1.78-5.38 rxrg=884) LYMPHOCYTES ABSOLUTE COUNT (BEAKER) (test 1.80 K/ L 1.32-3.57 uaab=836) MONOCYTES ABSOLUTE COUNT (BEAKER) (test 0.51 K/ L 0.30-0.82 cemw=236) EOSINOPHILS ABSOLUTE COUNT (BEAKER) (test 0.24 K/ L 0.04-0.54 wucb=561) BASOPHILS ABSOLUTE COUNT (BEAKER) (test 0.02 K/ L 0.01-0.08 sarm=526) IMMATURE GRANULOCYTES-RELATIVE PERCENT (BEAKER) 1 % 0-1 (test gryw=9331) GLUCOSE-STAT [id number] 10:35:00 Test Item Value Reference Range Comments GLUCOSE RANDOM (BEAKER) (test dvkd=307) 99 mg/dL 70-110 Only if arterial line in place and/or patient on ventilatorSODIUM NA-STAT [id number] 10:35:00 Test Item Value Reference Range Comments SODIUM (BEAKER) (test zmwf=620) 137 meq/L 135-148 Only if arterial line in place and/or patient on ventilatorPOTASSIUM-STAT [id number] 10:35:00 Test Item Value Reference Range Comments POTASSIUM (BEAKER) (test hcbr=248) 4.4 meq/L 3.6-5.5 Only if arterial line in place and/or patient on ventilatorHGB/HCT (H&H) - STAT [id number] 10:35:00 Test Item Value Reference Range Comments HEMOGLOBIN (BEAKER) (test ardg=869) 14.2 g/dL 13.0-16.8 HEMATOCRIT (BEAKER) (test ifkl=269) 42.0 % 40.0-50.0 Only if arterial line in place and/or patient on ventilatorBLOOD GAS, [id number] 10:35:00 Test Item Value Reference Range Comments PH ARTERIAL (BEAKER) (test hkoo=934) 7.37 7.35-7.45 PCO2 ARTERIAL (BEAKER) (test keie=142) 37 mmHg 35-45 PO2 ARTERIAL (BEAKER) (test dsbr=632) 132 mmHg 80-90 O2 SATURATION ARTERIAL (BEAKER) (test jncn=871) 98.6 % 96.0-97.0 HCO3 ARTERIAL (BEAKER) (test yfvf=042) 21 mmol/L 21-29 BASE EXCESS ARTERIAL (BEAKER) (test ftkz=602) -4.0 mmol/L -2.0-3.0 PATIENT TEMPERATURE (BEAKER) (test nryk=1571) 36.4 C FIO2 (BEAKER) (test bpsk=2679) 48.0 % Only if arterial line in place and/or patient on ventilatorBLOOD GAS, [id number] 09:03:00 Test Item Value Reference Range Comments PH ARTERIAL (BEAKER) (test uzwy=863) 7.36 7.35-7.45 PCO2 ARTERIAL (BEAKER) (test hbsk=787) 40 mmHg 35-45 PO2 ARTERIAL (BEAKER) (test qxwx=293) 153 mmHg 80-90 O2 SATURATION ARTERIAL (BEAKER) (test mrfc=360) 99.0 % 96.0-97.0 HCO3 ARTERIAL (BEAKER) (test pntq=086) 23 mmol/L 21-29 BASE EXCESS ARTERIAL (BEAKER) (test dzzn=824) -3.1 mmol/L -2.0-3.0 PATIENT TEMPERATURE (BEAKER) (test bggo=3320) 35.3 C FIO2 (BEAKER) (test xnpp=6493) 60.0 % CALCIUM, [id number] 09:03:00 Test Item Value Reference Range Comments CALCIUM IONIZED (BEAKER) (test pyoc=995) 1.06 mmol/L 1.12-1.27 PH, BLOOD (BEAKER) (test dtwu=5258) 7.34 GLUCOSE-STAT [id number] 09:02:00 Test Item Value Reference Range Comments GLUCOSE RANDOM (BEAKER) (test tlpp=855) 106 mg/dL 70-110 SODIUM NA-STAT [id number] 09:02:00 Test Item Value Reference Range Comments SODIUM (BEAKER) (test yugg=818) 136 meq/L 135-148 POTASSIUM-STAT [id number] 09:02:00 Test Item Value Reference Range Comments POTASSIUM (BEAKER) (test akab=093) 4.2 meq/L 3.6-5.5 HGB/HCT (H&H) - STAT [id number] 09:02:00 Test Item Value Reference Range Comments HEMOGLOBIN (BEAKER) (test jlii=795) 13.5 g/dL 13.0-16.8 HEMATOCRIT (BEAKER) (test zssv=303) 40.0 % 40.0-50.0 URINALYSIS W/ [id number] 07:46:00 Test Item Value Reference Range Comments COLOR (BEAKER) (test gsoj=828) Light Yellow CLARITY (BEAKER) (test yism=286) Clear SPECIFIC GRAVITY UA (BEAKER) (test tvei=929) 1.009 1.001-1.035 PH UA (BEAKER) (test ivqm=607) 6.0 5.0-8.0 PROTEIN UA (BEAKER) (test lzty=411) Negative Negative GLUCOSE UA (BEAKER) (test lzuj=430) Negative Negative KETONES UA (BEAKER) (test yfbm=217) Negative Negative BILIRUBIN UA (BEAKER) (test iutn=147) Negative Negative BLOOD UA (BEAKER) (test ossd=043) Negative Negative NITRITE UA (BEAKER) (test putr=086) Negative Negative LEUKOCYTE ESTERASE UA (BEAKER) (test kbal=179) Negative Negative UROBILINOGEN UA (BEAKER) (test usrm=679) 0.2 mg/dL 0.2-1.0 RBC UA (BEAKER) (test etrc=366) 1 /HPF WBC UA (BEAKER) (test smmr=117) < /HPF SOURCE(BEAKER) (test vfil=6371) Urine, Voided [id number] 04:52:00 Test Item Value Reference Range Comments MAGNESIUM (BEAKER) (test xgbz=218) 2.1 mg/dL 1.6-2.6 COMPREHENSIVE METABOLIC [id number] 04:52:00 Test Item Value Reference Range Comments TOTAL PROTEIN (BEAKER) 6.2 gm/dL 6.0-8.3 (test vyqx=571) ALBUMIN (BEAKER) (test 3.6 g/dL 3.5-5.0 zduu=9044) ALKALINE PHOSPHATASE 83 U/L 40-150 (BEAKER) (test rqjp=831) BILIRUBIN TOTAL (BEAKER) 0.4 mg/dL 0.2-1.2 (test weqd=172) SODIUM (BEAKER) (test 137 meq/L 136-145 ofxt=227) POTASSIUM (BEAKER) (test 4.4 meq/L 3.5-5.1 wvqd=545) CHLORIDE (BEAKER) (test 108 meq/L 98-107 bmqy=071) CO2 (BEAKER) (test 22 meq/L 22-29 qmcr=373) BLOOD UREA NITROGEN 14 mg/dL 7-21 (BEAKER) (test efxj=224) CREATININE (BEAKER) (test 1.61 mg/dL 0.57-1.25 hjnt=862) GLUCOSE RANDOM (BEAKER) 89 mg/dL 70-105 (test subv=535) CALCIUM (BEAKER) (test 8.9 mg/dL 8.4-10.2 amrg=948) AST (SGOT) (BEAKER) (test 18 U/L 5-34 uafi=012) ALT (SGPT) (BEAKER) (test 15 U/L 6-55 ipev=326) EGFR (BEAKER) (test 44 mL/min/1.73 sq m ESTIMATED GFR IS NOT myla=0531) ACCURATE CREATININE CLEARANCE IN PREDICTING GLOMERULAR FILTRATION RATE. ESTIMATED GFR IS NOT APPLICABLE FOR DIALYSIS PATIENTS. [id number] 04:50:00 Test Item Value Reference Range Comments PARTIAL THROMBOPLASTIN TIME (BEAKER) (test 27.8 seconds 22.5-36.0 zlue=435) PROTHROMBIN TIME/[id number] 04:49:00 Test Item Value Reference Range Comments PROTIME (BEAKER) (test auwq=569) 13.0 seconds 11.7-14.7 INR (BEAKER) (test frqg=808) 1.0 <=5.9 RECOMMENDED COUMADIN/WARFARIN INR THERAPY RANGESSTANDARD DOSE: 2.0 - 3.0 Includes: PROPHYLAXIS forvenous thrombosis, systemic embolization; TREATMENT for venous thrombosis and/or pulmonary embolus.HIGH RISK: Target INR is 2.5-3.5 for patients with mechanical heart valves.CBC W/PLT COUNT & AUTO [id number] 04:34:00 Test Item Value Reference Range Comments WHITE BLOOD CELL COUNT (BEAKER) (test aagn=630) 7.6 K/ L 3.5-10.5 RED BLOOD CELL COUNT (BEAKER) (test hbnl=430) 4.47 M/ L 4.63-6.08 HEMOGLOBIN (BEAKER) (test msqd=447) 14.4 GM/DL 13.7-17.5 HEMATOCRIT (BEAKER) (test bxjb=312) 44.2 % 40.1-51.0 MEAN CORPUSCULAR VOLUME (BEAKER) (test gbdq=849) 98.9 fL 79.0-92.2 MEAN CORPUSCULAR HEMOGLOBIN (BEAKER) (test 32.2 pg 25.7-32.2 rzkv=503) MEAN CORPUSCULAR HEMOGLOBIN CONC (BEAKER) (test 32.6 GM/DL 32.3-36.5 esty=751) RED CELL DISTRIBUTION WIDTH (BEAKER) (test 14.8 % 11.6-14.4 epap=553) PLATELET COUNT (BEAKER) (test txxx=413) 244 K/CU MM 150-450 MEAN PLATELET VOLUME (BEAKER) (test wrbe=809) 9.2 fL 9.4-12.4 NUCLEATED RED BLOOD CELLS (BEAKER) (test 0 /100 WBC 0-0 drvd=075) NEUTROPHILS RELATIVE PERCENT (BEAKER) (test 68 % tswt=957) LYMPHOCYTES RELATIVE PERCENT (BEAKER) (test 20 % rkek=481) MONOCYTES RELATIVE PERCENT (BEAKER) (test 7 % htpz=631) EOSINOPHILS RELATIVE PERCENT (BEAKER) (test 5 % lsdm=173) BASOPHILS RELATIVE PERCENT (BEAKER) (test 0 % mrqe=273) NEUTROPHILS ABSOLUTE COUNT (BEAKER) (test 5.11 K/ L 1.78-5.38 czjv=230) LYMPHOCYTES ABSOLUTE COUNT (BEAKER) (test 1.54 K/ L 1.32-3.57 dfys=643) MONOCYTES ABSOLUTE COUNT (BEAKER) (test 0.51 K/ L 0.30-0.82 usis=294) EOSINOPHILS ABSOLUTE COUNT (BEAKER) (test 0.36 K/ L 0.04-0.54 fxgs=714) BASOPHILS ABSOLUTE COUNT (BEAKER) (test 0.03 K/ L 0.01-0.08 vrfs=298) IMMATURE GRANULOCYTES-RELATIVE PERCENT (BEAKER) 0 % 0-1 (test mvxe=1425) RAD, CHEST, 1 VIEW, NON [id number] 22:42:00Reason for exam:->pre op evalShould this be performed at the bedside?->YesFINAL REPORT INDICATION: pre op eval COMPARISON: None TECHNIQUE: Single frontal view of the chest. FINDINGS: Lungs and pleura: Clear lungs. No effusion.Heart and mediastinum: Normal heart size. Unremarkable mediastinal contours.Osseous structures: No acute abnormality.Other: None. IMPRESSION: No acute intrathoracic abnormality. Signed: [facility] Verified Date/Time: 11/16/2017 22:42:55 Reading Location: [address] Reading Room
[2018-06-03] MEDS ORDERED: CLINDAMYCIN 900MG/D5W 900 MG/50 ML IVPB IV ONE (02:15)
--- NOTE | 2018-06-03 02:47 | ER ---
Nurse's Notes [facility] Name: Jaswinder Roa Age: 62 yrs Sex: Male : 1955 Arrival Date: 06/03/2018 Time: 01:20 Bed 7 Private MD: Uriel Langford S Diagnosis: Right Great Toe Ulcer Presentation: 06/03 01:33 Presenting complaint: Patient states: he was discharged Tuesday from [facility] for blood clots to his right leg his right foot is swollen and he has open wounds to right big toe pt states his foot has become more swollen and painful now. Transition of care: patient was not received from another setting of care. Onset of symptoms is unknown. Risk Assessment: Do you want to hurt yourself or someone else? Patient reports no desire to harm self or others. Initial Sepsis Screen: Does the patient meet any 2 criteria? No. Patient's initial sepsis screen is negative. Does the patient have a suspected source of infection? No. Patient's initial sepsis screen is negative. Care prior to arrival: None. 01:33 Method Of Arrival: Ambulatory 01:33 Acuity: CHICHI 3 bb Historical: - Allergies: 01:36 tramadol; bb - Home Meds: 01:36 Unable to obtain [Active]; bb - PMHx: 01:36 DVT; Hypertension; rectal cancer with metastasis; bb - PSHx: 01:36 thrombelectomy; bb - Immunization history:: Adult Immunizations unknown, Flu vaccine is up to date. - Social history:: Smoking status: Patient uses tobacco products, smokes one pack cigarettes per day. - Ebola Screening: : No symptoms or risks identified at this time. - Family history:: not pertinent. - Hospitalizations: : No recent hospitalization is reported. Screenin:41 Abuse screen: Denies threats or abuse. Denies injuries from another. Nutritional lp1 screening: No deficits noted. Tuberculosis screening: No symptoms or risk factors identified. Fall Risk None identified. Assessment: 01:38 General: Appears in no apparent distress. Behavior is calm, appropriate for age. Pain: lp1 Complains of pain in right first toe Pain currently is 7 out of 10 on a pain scale. Quality of pain is described as aching. Neuro: Level of Consciousness is awake, alert, obeys commands, Oriented to person, place, time, situation. Cardiovascular: Patient's skin is warm and dry. Respiratory: No deficits noted. GI: No deficits noted. : No deficits noted. EENT: No deficits noted. Derm: Wound noted right first toe Wound is necrotic, black tissue noted to tip of right great toe, open skin noted to bottom of right great toe. Musculoskeletal: Swelling present in right foot. 03:00 Reassessment: Patient appears in no apparent distress at this time. Patient is alert, lp1 oriented x 3, equal unlabored respirations, skin warm/dry/pink. Neuro: Gait is steady. Vital Signs: 01:36 BP 137 / 94; Pulse 93; Resp 18 S; Temp 97.6(O); Pulse Ox 100% on R/A; Weight 90.72 kg bb (R); Height 6 ft. 2 in. (187.96 cm) (R); Pain 6/10; 03:00 BP 140 / 92; Pulse 78; Resp 18; Pulse Ox 98% on R/A; lp1 01:36 Body Mass Index 25.68 (90.72 kg, 187.96 cm) bb ED Course: 01:20 Patient arrived in ED. es 01:21 Uriel Langford MD is Private Physician. es 01:34 Bereket Hathaway MD is Attending Physician. wa 01:34 Triage completed. bb 01:36 Arm band placed on Patient placed in an exam room, on a stretcher, on pulse oximetry. bb 01:38 Sindy Heard RN is Primary Nurse. lp1 01:41 Patient has correct armband on for positive identification. lp1 02:19 Missed attempt(s): 22 gauge in right forearm. Missed attempt(s): 22 gauge in right lp1 forearm. 03:30 Wound care: to decubitus located on right first toe was dressed with Neosporin, 4X4s. lp1 03:30 Patient did not have IV access during this emergency room visit. lp1 03:35 No provider procedures requiring assistance completed. lp1 Administered Medications: 02:53 Not Given (No IV access): Clindamycin 900 mg IVPB once over 30 mins; (mix in 50 mL) lp1 02:53 Drug: Clindamycin 600 mg Route: IM; Site: right deltoid; lp1 03:35 Follow up: Response: No adverse reaction lp1 Outcome: 02:47 Discharge ordered by . [facility] 03:35 Discharged to home ambulatory. lp1 03:35 Condition: good 03:35 Discharge instructions given to patient, Instructed on discharge instructions, follow up and referral plans. medication usage, wound care, Demonstrated understanding of instructions, follow-up care, medications, wound care, Prescriptions given X 1. 03:36 Patient left the ED. lp1 Signatures: Krissy Piña Brenda, RN RN bb Sindy Heard RN RN lp1 Bereket Hathaway MD MD wa
--- NOTE | 2018-06-03 02:48 | EDPHYS ---
Physician Documentation [facility] Name: Jaswinder Roa Age: 62 yrs Sex: Male : 1955 Arrival Date: 06/03/2018 Time: 01:20 Bed 7 Private MD: Uriel Langford S ED Physician Bereket Hathaway HPI: 06/03 02:43 This 62 yrs old Male presents to ER via Ambulatory with complaints of Foot wa Pain, Feet Swelling. 02:43 The patient presents with swelling, R great toe ulcer. The complaints affect the right wa foot. Context: denies injury. Onset: The symptoms/episode began/occurred 5 day(s) ago. Modifying factors: The symptoms are alleviated by nothing, the symptoms are aggravated by nothing. Associated signs and symptoms: The patient has no apparent associated signs or symptoms. Severity of symptoms: At their worst the symptoms were moderate, in the emergency department the symptoms are unchanged. The patient has experienced similar episodes in the past. The patient has been recently seen by a physician:. Historical: - Allergies: 01:36 tramadol; bb - Home Meds: 01:36 Unable to obtain [Active]; bb - PMHx: 01:36 DVT; Hypertension; rectal cancer with metastasis; bb - PSHx: 01:36 thrombelectomy; bb - Immunization history:: Adult Immunizations unknown, Flu vaccine is up to date. - Social history:: Smoking status: Patient uses tobacco products, smokes one pack cigarettes per day. - Ebola Screening: : No symptoms or risks identified at this time. - Family history:: not pertinent. - Hospitalizations: : No recent hospitalization is reported. ROS: 02:44 Constitutional: Negative for fever, chills, and weight loss, Eyes: Negative for injury, wa pain, redness, and discharge, ENT: Negative for injury, pain, and discharge, Neck: Negative for injury, pain, and swelling, Cardiovascular: Negative for chest pain, palpitations, and edema, Respiratory: Negative for shortness of breath, cough, wheezing, and pleuritic chest pain, Abdomen/GI: Negative for abdominal pain, nausea, vomiting, diarrhea, and constipation, Back: Negative for injury and pain, : Negative for injury, bleeding, discharge, and swelling, Neuro: Negative for headache, weakness, numbness, tingling, and seizure, Psych: Negative for depression, anxiety, suicide ideation, homicidal ideation, and hallucinations. 02:44 MS/extremity: Positive for swelling, of the right foot. 02:44 Skin: Positive for cellulitis, Negative for abrasions. Exam: 02:45 Constitutional: This is a well developed, well nourished patient who is awake, alert, wa and in no acute distress. Head/Face: Normocephalic, atraumatic. Eyes: Pupils equal round and reactive to light, extra-ocular motions intact. Lids and lashes normal. Conjunctiva and sclera are non-icteric and not injected. Cornea within normal limits. Periorbital areas with no swelling, redness, or edema. ENT: Nares patent. No nasal discharge, no septal abnormalities noted. Tympanic membranes are normal and external auditory canals are clear. Oropharynx with no redness, swelling, or masses, exudates, or evidence of obstruction, uvula midline. Mucous membranes moist. Neck: Trachea midline, no thyromegaly or masses palpated, and no cervical lymphadenopathy. Supple, full range of motion without nuchal rigidity, or vertebral point tenderness. No Meningismus. Chest/axilla: Normal chest wall appearance and motion. Nontender with no deformity. No lesions are appreciated. Cardiovascular: Regular rate and rhythm with a normal S1 and S2. No gallops, murmurs, or rubs. Normal PMI, no JVD. No pulse deficits. Respiratory: Lungs have equal breath sounds bilaterally, clear to auscultation and percussion. No rales, rhonchi or wheezes noted. No increased work of breathing, no retractions or nasal flaring. Abdomen/GI: Soft, non-tender, with normal bowel sounds. No distension or tympany. No guarding or rebound. No evidence of tenderness throughout. Back: No spinal tenderness. No costovertebral tenderness. Full range of motion. Neuro: Awake and alert, GCS 15, oriented to person, place, time, and situation. Cranial nerves II-XII grossly intact. Motor strength 5/5 in all extremities. Sensory grossly intact. Cerebellar exam normal. Normal gait. Psych: Awake, alert, with orientation to person, place and time. Behavior, mood, and affect are within normal limits. 02:45 Musculoskeletal/extremity: Extremities: swelling, R great toe ulcer. 02:45 Skin: Appearance: Color: normal in color. Vital Signs: 01:36 BP 137 / 94; Pulse 93; Resp 18 S; Temp 97.6(O); Pulse Ox 100% on R/A; Weight 90.72 kg (R); Height 6 ft. 2 in. (187.96 cm) (R); Pain 6/10; 03:00 BP 140 / 92; Pulse 78; Resp 18; Pulse Ox 98% on R/A; lp1 01:36 Body Mass Index 25.68 (90.72 kg, 187.96 cm) MDM: 01:34 Patient medically screened. or 02:46 Differential diagnosis: cellulitis, will over with abx. Data reviewed: vital signs, or nurses notes. 02:46 Response to treatment: the patient's symptoms have mildly improved after treatment. or Administered Medications: 02:53 Not Given (No IV access): Clindamycin 900 mg IVPB once over 30 mins; (mix in 50 mL) 1 02:53 Drug: Clindamycin 600 mg Route: IM; Site: right deltoid; lp1 03:35 Follow up: Response: No adverse reaction lp1 Disposition: 06/03/18 02:47 Discharged to Home. Impression: Right Great Toe Ulcer. - Condition is Stable. - Discharge Instructions: Cellulitis, Adult, Fgan-ml-Fvmt. - Prescriptions for Doxycycline Hyclate 100 mg Oral Tablet - take 1 tablet by ORAL route every 12 hours; 20 tablet. - Medication Reconciliation Form, Thank You Letter, Antibiotic Education, Prescription Opioid Use form. - Follow up: Private Physician; When: 1 - 2 days. - Problem is new. - Symptoms have improved. - Notes: quit smoking. take antibiotics as prescribed. your doctor needs to do a wound check within 48 hours. Signatures: Ana Lambert RN RN bb Sindy Heard RN RN lp1 Bereket Hathaway MD MD or Corrections: (The following items were deleted from the chart) 03:36 02:47 06/03/2018 02:47 Discharged to Home. Impression: Right Great Toe Ulcer. Condition lp1 is Stable. Forms are Medication Reconciliation Form, Thank You Letter, Antibiotic Education, Prescription Opioid Use. Follow up: Private Physician; When: 1 - 2 days. Problem is new. Symptoms have improved. or
[2018-06-03] MEDS ORDERED: CLINDAMYCIN IV 150 MG/ML (4 mL) VIAL ONE (02:51)
[2018-06-03 06:34] VITALS: TEMP 97.6
[2018-06-03 06:35] VITALS: BP 140/92; O2SAT 98
== END 2018-06-03 03:36 | disposition home or self-care (01) ==
LOC: ER 01:17
DX: L97.519 Non-pressure chronic ulcer of other part of right foot with unspecified severity (principal); I10 Essential (primary) hypertension; F17.210 Nicotine dependence, cigarettes, uncomplicated; Z85.048 Personal history of other malignant neoplasm of rectum, rectosigmoid junction, and anus; Z88.5 Allergy status to narcotic agent; Z86.718 Personal history of other venous thrombosis and embolism
CPT/HCPCS: 96372; 99284; S0077

== ENCOUNTER 2018-06-03 15:11 | Emergency (ER) | payer OTHER ==
--- OUTSIDE RECORDS SUMMARY | 2018-06-03 15:15 | XMS REPORT | Clinical Summary ---
:1955 Author Organization [facility] Address [address] [place] [address] Care Team Providers Name Role Phone Sharpless [...] Fadi Philippe COLONOSCOPY,POLYPECT MD Nixon GOPAL 02/05/2018 [facility] Cardiology Neena, - Encounter Elizabeth Paniagua MD 02/16/2018 Daniel Morin MD Daniel, Jamuna V., MD 01/25/2018 Surgery Michela, BUSINESS APPLICATIONS DEVELOPER FEMORAL &/OR Timothy Paniagua MD POPLITEAL 01/23/2018 Anesthesia Event Ricardo Loyola MD 01/23/2018 [facility] - Encounter Carmelo Mccallum, 01/28/2018 Jairo Ramírez MD 01/23/2018 Surgery Arthur Oconnor ANGIOGRAM-LOWER MD Amira EXTREMITY 12/06/2017 Office Visit Cardiology Arthur Oconnor Postoperative state MD Amira (Primary Dx) 11/17/2017 Surgery Arthur Oconnor BYPASS,FEMORAL-POPLI MD Amiar TEAL 11/17/2017 Anesthesia Event Stefan Chase AA 11/17/2017 Orders Only General Internal Medicine 11/16/2017 [facility] Cardiology Arthur Oconnor Benign essential HTN [...] Taken Blood Pressure 110/76 05/29/2018 7:00 AM PRESS CUTTER Pulse 75 05/29/2018 10:09 AM PRESS CUTTER Temperature 37.1 C (98.7 F) 05/29/2018 7:00 AM PRESS CUTTER Respiratory Rate 20 05/29/2018 10:09 AM PRESS CUTTER Oxygen Saturation 98% 05/29/2018 10:09 AM PRESS CUTTER Inhaled Oxygen Concentration 21% 05/27/2018 8:20 PM PRESS CUTTER Weight 88.1 kg (194 lb 3.6 oz) 05/29/2018 5:00 AM PRESS CUTTER Height 188 cm (6' 2") 05/26/2018 12:30 PM PRESS CUTTER Body Mass Index 24.94 05/29/2018 5:00 AM PRESS CUTTER Plan of Treatment Date Type Specialty Care Team Description 05/23/2018 Anesthesia Event Cardiology Sujit García MD [address] [facility] [address] [place], [place] [id number] 06/13/2018 Office Visit Cardiology Arthur Oconnor MD [address] [facility] [id number] [place] [address] Health Maintenance Due Date Last Done Comments INFLUENZA VACCINE Completed 02/07/2018 Implants Implanted Type Area Track Repair Laborer Device Shelf Model / Identifier Expiration Serial / Date Lot Mynxgrip Cardiovascular Left: CARDINAL 11/23/2019 [id number] / Implanted: Qty: 1 on 01/25/2018 by Timothy Abernathy MD StayTuned / [id number] Flseal Vhsd Full Strlprep 10ml [id number] - [id number] Cement/Filler/Adh Right: BUCHANAN:BIOSCI 04/11/2019 [id number] / Implanted: Qty: 1 on 11/17/2017 by Arthur Oconnor MD esive Leg / [id number] Floseal Vhsd Full Strlprep 5ml [id number] - [id number] Cement/Filler/Adh Right: BUCHANAN:BIOSCI 10/04/2019 [id number] / Implanted: Qty: 1 on 05/18/2018 by Arthur Oconnor MD esive Leg / [id number] Grft Eptfe-Heparin Rng [id number] - [id number] Graft/Patch Right: PRINCE OLIVIER & 08/08/2021 [id number] / Implanted: Qty: 1 on 11/17/2017 by Arthur Oconnor MD Leg ASSC:MED PRDT [id number] / Grft Eptfe-Heparin Rng [id number] - [id number] Graft/Patch Right: PRINCE GORE & 01/01/2022 [id number] / Implanted: Qty: 1 on 05/18/2018 by Arthur Oconnor MD Leg ASSC:MED PRDT [id number] / Procedures Procedure Name Priority Date/Time Associated Comments Diagnosis CBC W/PLT COUNT & AUTO Routine 05/29/2018 5:11 Results for this DIFFERENTIAL AM PRESS CUTTER procedure are in the results section. COMPREHENSIVE Routine 05/29/2018 5:11 Results for this METABOLIC PANEL AM PRESS CUTTER procedure are in the results section. CBC W/PLT COUNT & AUTO Routine 05/29/2018 5:11 Results for this DIFFERENTIAL AM PRESS CUTTER procedure are in the results section. CBC W/PLT COUNT & AUTO Routine 05/28/2018 4:21 Results for this DIFFERENTIAL AM PRESS CUTTER procedure are in the results section. COMPREHENSIVE Routine 05/28/2018 4:21 Results for this METABOLIC PANEL AM PRESS CUTTER procedure are in the results section. CBC W/PLT COUNT & AUTO Routine 05/28/2018 4:21 Results for this DIFFERENTIAL AM PRESS CUTTER procedure are in the results section. CBC W/PLT COUNT & AUTO Routine 05/27/2018 5:48 Results for this DIFFERENTIAL AM PRESS CUTTER procedure are in the results section. CBC W/PLT COUNT & AUTO Routine 05/27/2018 5:48 Results for this DIFFERENTIAL AM PRESS CUTTER procedure are in the results section. CBC W/PLT COUNT & AUTO Routine 05/26/2018 3:56 Results for this DIFFERENTIAL AM PRESS CUTTER procedure are in the results section. CBC W/PLT COUNT & AUTO Routine 05/26/2018 3:56 Results for this DIFFERENTIAL AM PRESS CUTTER procedure are in the results section. CBC W/PLT COUNT & AUTO Routine 05/25/2018 4:59 Results for this DIFFERENTIAL AM PRESS CUTTER procedure are in the results section. MAGNESIUM Routine 05/25/2018 4:59 Results for this AM PRESS CUTTER procedure are in the results section. BASIC METABOLIC PANEL Routine 05/25/2018 4:59 Results for this (7) AM PRESS CUTTER procedure are in the results section. CBC W/PLT COUNT & AUTO Routine 05/25/2018 4:59 Results for this DIFFERENTIAL AM PRESS CUTTER procedure are in the results section. CBC W/PLT COUNT & AUTO STAT 05/24/2018 12:50 Results for this DIFFERENTIAL PM PRESS CUTTER procedure are in the results section. MAGNESIUM STAT 05/24/2018 12:50 Results for this PM PRESS CUTTER procedure are in the results section. BASIC METABOLIC PANEL STAT 05/24/2018 12:50 Results for this (7) PM PRESS CUTTER procedure are in the results section. CBC W/PLT COUNT & AUTO STAT 05/24/2018 12:50 Results for this DIFFERENTIAL PM PRESS CUTTER procedure are in the results section. REPORT OF PROCEDURE - 05/23/2018 5:13 ENDOSCOPY URL PM PRESS CUTTER SIGMOIDOSCOPY 05/23/2018 1:00 Rectal bleeding PM PRESS CUTTER Special Needs flex sig w/ anes CBC W/PLT COUNT & Routine 05/23/2018 4:47 AM Results for this AUTO DIFFERENTIAL PRESS CUTTER procedure are in the results section. MAGNESIUM Routine 05/23/2018 4:47 AM Results for this PRESS CUTTER procedure are in the results section. BASIC METABOLIC PANEL Routine 05/23/2018 4:47 AM Results for this (7) PRESS CUTTER procedure are in the results section. CBC W/PLT COUNT & Routine 05/23/2018 4:47 AM Results for this AUTO DIFFERENTIAL PRESS CUTTER procedure are in the results section. HEMOGLOBIN AND Routine 05/22/2018 4:46 PM Results for this HEMATOCRIT PRESS CUTTER procedure are in the results section. CBC W/PLT COUNT & STAT 05/22/2018 12:27 PM Results for this AUTO DIFFERENTIAL PRESS CUTTER procedure are in the results section. MAGNESIUM STAT 05/22/2018 12:27 PM Results for this PRESS CUTTER procedure are in the results section. CBC W/PLT COUNT & STAT 05/22/2018 12:27 PM Results for this AUTO DIFFERENTIAL PRESS CUTTER procedure are in the results section. BASIC METABOLIC PANEL STAT 05/22/2018 12:27 PM Results for this (7) PRESS CUTTER procedure are in the results section. BASIC METABOLIC PANEL Routine 05/20/2018 4:31 AM Results for this (7) PRESS CUTTER procedure are in the results section. TRANSFUSION SERVICE 05/19/2018 5:50 PM REPORT - SCAN PRESS CUTTER CBC W/PLT COUNT & Routine 05/19/2018 6:24 AM Results for this AUTO DIFFERENTIAL PRESS CUTTER procedure are in the results section. CBC W/PLT COUNT & Routine 05/19/2018 6:24 AM Results for this AUTO DIFFERENTIAL PRESS CUTTER procedure are in the results section. BASIC METABOLIC PANEL Routine 05/19/2018 6:24 AM Results for this (7) PRESS CUTTER procedure are in the results section. 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 TYPE AND SCREEN, AUTOMATED Routine 05/18/2018 5:32 AM PRESS CUTTER LIPID PANEL Routine 05/18/2018 5:32 AM PRESS CUTTER CBC W/PLT COUNT & AUTO Routine 05/18/2018 5:32 AM PRESS CUTTER Results for this DIFFERENTIAL procedure are in the results section. BASIC METABOLIC PANEL (7) Routine 05/18/2018 5:32 AM PRESS CUTTER XR CHEST 1 VIEW Routine 05/17/2018 9:48 PM PRESS CUTTER Results for this PORTABLE/BEDSIDE procedure are in the results section. VENOUS DOPPLER LEGS STAT 05/17/2018 9:15 PM PRESS CUTTER Results for this BILATERAL procedure are in the results section. ECG 12-LEAD Routine 05/17/2018 8:08 PM PRESS CUTTER Procedure Note - Interface, External Ris In - 05/17/2018 8:12 PM PRESS CUTTER Ventricular Rate 88 BPM Atrial Rate 88 BPM P-R Interval 186 ms QRS Duration 90 ms Q-T Interval 366 ms QTC Calculation(Bazett) 442 ms P [place] 58 degrees R [place] 51 degrees T [place] 56 degrees Normal sinus rhythm Normal ECG No previous ECGs available ECG 12-LEAD Routine 05/17/2018 8:08 PM Results for this PRESS CUTTER procedure are in the results section. ECG 12-LEAD Routine 05/17/2018 8:08 PM Results for this PRESS CUTTER procedure are in the results section. PT/APTT Routine 05/17/2018 6:30 PM Results for this PRESS CUTTER procedure are in the results section. PROTHROMBIN TIME/INR Routine 05/17/2018 6:30 PM Results for this PRESS CUTTER procedure are in the results section. CBC W/PLT COUNT & AUTO Routine 05/17/2018 6:08 PM Results for this DIFFERENTIAL PRESS CUTTER procedure are in the results section. PHOSPHORUS Routine 05/17/2018 6:08 PM Results for this PRESS CUTTER procedure are in the results section. MAGNESIUM Routine 05/17/2018 6:08 PM Results for this PRESS CUTTER procedure are in the results section. HEPATIC FUNCTION PANEL Routine 05/17/2018 6:08 PM Results for this PRESS CUTTER procedure are in the results section. CBC W/PLT COUNT & AUTO Routine 05/17/2018 6:08 PM Results for this DIFFERENTIAL PRESS CUTTER procedure are in the results section. BASIC METABOLIC PANEL Routine 05/17/2018 6:08 PM Results for this (7) PRESS CUTTER procedure are in the results section. VASCULAR [...] CDT procedure are in the results section. BUSINESS APPLICATIONS DEVELOPER FEMORAL &/OR 02/08/2018 2:40 Acute deep vein POPLITEAL PM CDT thrombosis (DVT) of right lower extremity, unspecified vein (HCC) Case Notes (3) CASE 2443 Periferal angio with possible patrol captain of rt leg. 552mGy PERIPHERAL ANGIOS / 02/08/2018 2:40 PM CDT Acute deep vein thrombosis AORTOGRAM (DVT) of right lower extremity, unspecified vein (HCC) Case Notes (3) CASE 2443 Periferal angio with possible patrol captain of rt leg. 552mGy POCT-ACT Routine [...] CDT procedure are in the results section. BUSINESS APPLICATIONS DEVELOPER FEMORAL &/OR 01/25/2018 4:04 Peripheral vascular POPLITEAL PM CDT disease, unspecified (HCC) Case Notes 1019 Rt arteriogram possible patrol captain of the rt leg POCT-GLUCOSE METER [...] 450 ms QTC Calculation(Bazett) 422 ms P [place] 49 degrees R [place] 48 degrees T [place] 55 degrees Sinus bradycardia Otherwise normal ECG [...] count + automated diff (05/29/2018 5:11 AM PRESS CUTTER)Only the most recent of16 resultswithin the time period is included. WBC 6.3 3.5 - 10.5 K/L [facility] RBC 3.55 (L) 4.63 - 6.08 M/L [facility] Hemoglobin 10.5 (L) 13.7 - 17.5 GM/DL [facility] Hematocrit 32.7 (L) 40.1 - 51.0 % [facility] MCV 92.1 79.0 - 92.2 fL [facility] MCH 29.6 25.7 - 32.2 pg [facility] MCHC 32.1 (L) 32.3 - 36.5 GM/DL [facility] RDW 14.2 11.6 - 14.4 % [facility] Platelets 363 150 - 450 K/CU MM [facility] MPV 8.6 (L) 9.4 - 12.4 fL [facility] nRBC 0 0 - 0 /100 WBC [facility] % Neutros 73 % [facility] % Lymphs 20 % [facility] % Monos 5 % [facility] % Eos 2 % [facility] % Baso 1 % [facility] # Neutros 4.55 1.78 - 5.38 K/L [facility] # Lymphs 1.24 (L) 1.32 - 3.57 K/L [facility] # Monos 0.31 0.30 - 0.82 K/L [facility] # Eos 0.13 0.04 - 0.54 K/L [facility] # Baso 0.03 0.01 - 0.08 K/L [facility] Immature Granulocytes-Relative 0 0 - 1 % [facility] Specimen Blood Performing Organization Address City/State/Zipcode Phone Number [facility] [address] [place] [address] CENTER Comprehensive metabolic panel (05/29/2018 5:11 AM PRESS CUTTER)Only the most recent of3 resultswithin the time period is included. Protein, Total 5.9 (L) 6.0 - 8.3 gm/dL [facility] Albumin 3.1 (L) 3.5 - 5.0 g/dL [facility] Alkaline Phosphatase 61 40 - 150 U/L [facility] Total Bilirubin 0.2 0.2 - 1.2 mg/dL [facility] Sodium 139 136 - 145 meq/L [facility] Potassium 4.7 3.5 - 5.1 meq/L [facility] Chloride 109 (H) 98 - 107 meq/L [facility] CO2 24 22 - 29 meq/L [facility] BUN 21 7 - 21 mg/dL [facility] Creatinine 1.61 (H) 0.57 - 1.25 mg/dL [facility] Glucose 101 70 - 105 mg/dL [facility] Calcium 8.4 8.4 - 10.2 mg/dL [facility] AST 12 5 - 34 U/L [facility] ALT 6 6 - 55 U/L [facility] EGFR 44Comment: ESTIMATED GFR mL/min/1.73 sq m [facility] IS NOT ACCURATE [facility] CREATININE CLEARANCE IN PREDICTING GLOMERULAR FILTRATION RATE. ESTIMATED GFR IS NOT APPLICABLE FOR DIALYSIS PATIENTS. Specimen Blood Performing Organization Address City/[facility]/Zipcode Phone Number [facility] [address] [place] [address] [phone] CENTER Magnesium (05/25/2018 4:59 AM PRESS CUTTER)Only the most recent of13 resultswithin the time period is included. Magnesium 2.2Comment: Specimen slightly 1.6 - 2.6 mg/dL [facility] hemolyzed [facility] Specimen Blood - Arm, Right Performing Organization Address City/State/Zipcode Phone Number [place] [phone] [place] [address] [phone] [place] Basic Metabolic Panel (05/25/2018 4:59 AM PRESS CUTTER)Only the most recent of30 resultswithin the time period is included. Sodium 142 136 - 145 meq/L [facility] Potassium 4.6Comment: Specimen slightly 3.5 - 5.1 meq/L [facility] hemolyzed [facility] Chloride 111 (H) 98 - 107 meq/L [facility] CO2 24 22 - 29 meq/L [facility] BUN 14 7 - 21 mg/dL [facility] Creatinine 1.63 (H)Comment: Specimen 0.57 - 1.25 mg/dL [facility] slightly hemolyzed [facility] Glucose 102 70 - 105 mg/dL [facility] Calcium 8.7 8.4 - 10.2 mg/dL [facility] EGFR 43Comment: ESTIMATED GFR IS mL/min/1.73 sq m [facility] NOT ACCURATE [facility] CENTER CLEARANCE IN PREDICTING GLOMERULAR FILTRATION RATE. ESTIMATED GFR IS NOT APPLICABLE FOR DIALYSIS PATIENTS. Specimen Blood - Arm, Right Performing Organization Address City/[facility] Phone Number [address] [address] [phone] [place] REPORT OF PROCEDURE - ENDOSCOPY URL (05/23/2018 5:13 PM PRESS CUTTER) Narrative Performed At Hemoglobin and hematocrit (05/22/2018 4:46 PM PRESS CUTTER)Only the most recent of3 resultswithin the time period is included. Hemoglobin 11.2 (L) 13.7 - 17.5 GM/DL [facility] Hematocrit 33.7 (L) 40.1 - 51.0 % [facility] Specimen Blood Performing Organization Address City/[facility]/Zipcode Phone Number [address] [address] [place] TRANSFUSION SERVICE REPORT - SCAN (05/19/2018 5:50 PM PRESS CUTTER)Only the most recent of6 resultswithin the time period is included. Narrative Performed At Type and screen, automated (05/18/2018 5:32 AM PRESS CUTTER)Only the most recent of4 resultswithin the time period is included. ABO/RH AUTOMATED (BEAKER) A POSITIVE [facility] Ab Scrn NEGATIVE [facility] Specimen Blood Performing Organization Address [facility] Phone Number [facility] [address] [place] [phone] Lipid panel (05/18/2018 5:32 AM PRESS CUTTER)Only the most recent of2 resultswithin the time period is included. Triglycerides 65 mg/dL [facility] Cholesterol 129 mg/dL [facility] HDL 30 mg/dL [facility] LDL Calculated 86 mg/dL [facility] Specimen Blood Narrative Performed At Triglyceride Reference Range: [facility] Low Risk <150 [id number] High Risk 200-499 Very High Risk>=500 Cholesterol Reference Range: Low Risk <200 [id number] High Risk>240 HDL Cholesterol Reference Range: Low Risk >=60 High Risk <40 LDL Cholesterol Reference Range: Optimal<100 Near [id number] [id number] [id number] Very High >=190 Performing Organization Address City/[facility]/Zipcode Phone Number [facility] [address] [place] [address] [place] XR chest 1 view portable / bedside (05/17/2018 9:48 PM PRESS CUTTER)Only the most recent of3 resultswithin the time period is included. Narrative Performed At FINAL REPORT [facility] Chest, one view. HISTORY: Preoperative COMPARISON: Radiograph [...] MD Report Verified Date/Time:05/17/2018 23:59:18 Reading Location: [facility] B1 C013W Consult Reading Room Procedure Note Interface, External Ris In - 05/18/2018 12:01 AM PRESS CUTTER FINAL REPORT Chest, one view. HISTORY: Preoperative [...] Report Verified Date/Time: 05/17/2018 23:59:18 Reading Location: [facility] C013W Consult Reading Room Performing Organization Address City/State/Zipcode Phone Number RIS Venous doppler legs bilateral (05/17/2018 9:15 PM PRESS CUTTER) Ejection Fraction [facility] Impressions Performed At Right Impression [facility] 1. There is [...] PV LAB - Lower Extremities DVT Study [facility] Demographics Patient NameViet RANDALL of Study 05/17/2018 ESTEFANIA 62 Visit [id number] Male of 1955 Referring Sreekanth Davies, FELRoom Number [facility] Physician Cleaners Rey Martinez Physician Procedure Type of Study: [...] External Ris In - 05/18/2018 5:02 PM PRESS CUTTER PV LAB - Lower Extremities DVT Study Demographics Patient Name JASWINDER RANDALL Date of Study 05/17/2018 ESTEFANIA Age 62 Visit Number [id number] Gender Male Accession Number [id number] Date of 1955 Referring JOHN Chavez Room Number [facility] Physician Cleaners Rey Ortiz Interpreting Ananya Martinez, Physician Procedure [...] City/State/Zipcode Phone Number [facility] Electrocardiogram, 12-lead (05/17/2018 8:08 PM PRESS CUTTER)Only the most recent of3 resultswithin the time period is included. Narrative Performed At Ventricular Rate 88 BPM GE MUSE Atrial Rate 88 BPM P-R Interval 186 ms QRS Duration 90 ms Q-T Interval 366 ms QTC Calculation(Bazett) 442 ms P [place] 58 degrees R [place] 51 degrees T [place] 56 degrees Normal sinus rhythm Normal ECG No previous ECGs available Confirmed by MD TORRES JOSEPH P ([id number]) on 05/18/2018 6:38:12 AM Procedure Note Interface, External Ris In - 05/18/2018 6:38 AM PRESS CUTTER Ventricular Rate 88 BPM Atrial Rate 88 BPM P-R Interval 186 ms QRS Duration 90 ms Q-T Interval 366 ms QTC Calculation(Bazett) 442 ms P [place] 58 degrees R [place] 51 degrees T [place] 56 degrees Normal sinus rhythm Normal ECG No previous ECGs available Confirmed by MD TORRES JOSEPH P ([id number]) on 05/18/2018 6:38:12 AM Performing Organization Address City/[facility] Facility[facility] Phone Number [facility] PT/aPTT (05/17/2018 6:30 PM PRESS CUTTER)Only the most recent of2 resultswithin the time period is included. Protime 13.0 11.7 - 14.7 seconds [facility] INR 1.0 <=5.9 [facility] PTT 30.3 22.5 - 36.0 seconds [facility] Specimen Blood Narrative Performed At RECOMMENDED COUMADIN/WARFARIN INR THERAPY [facility] RANGES STANDARD DOSE: 2.0 - 3.0 Includes: PROPHYLAXIS for venous thrombosis, systemic embolization; TREATMENT for venous thrombosis and/or pulmonary embolus. HIGH RISK: Target INR is 2.5-3.5 for patients with mechanical heart valves. Performing Organization Address City/[facility] Phone Number [address] [address] CENTER Prothrombin time/INR (05/17/2018 6:30 PM PRESS CUTTER)Only the most recent of12 resultswithin the time period is included. Protime 13.0 11.7 - 14.7 seconds [facility] INR 1.0 <=5.9 [facility] Specimen Blood Narrative Performed At RECOMMENDED COUMADIN/WARFARIN INR THERAPY [facility] RANGES STANDARD DOSE: 2.0 - 3.0 Includes: PROPHYLAXIS for venous thrombosis, systemic embolization; TREATMENT for venous thrombosis and/or pulmonary embolus. HIGH RISK: Target INR is 2.5-3.5 for patients with mechanical heart valves. Performing Organization Address City/[facility] Phone Number [address] [address] [phone] [place] Phosphorus (05/17/2018 6:08 PM PRESS CUTTER)Only the most recent of3 resultswithin the time period is included. Phosphorus 3.0 2.3 - 4.7 mg/dL [facility] Specimen Blood Performing Organization Address [facility] Phone Number [address] [address] [place] Hepatic function panel (05/17/2018 6:08 PM PRESS CUTTER)Only the most recent of2 resultswithin the time period is included. Protein, Total 7.1 6.0 - 8.3 gm/dL [facility] Albumin 3.9 3.5 - 5.0 g/dL [facility] Total Bilirubin 0.3 0.2 - 1.2 mg/dL [facility] Bilirubin, Direct 0.1 0.1 - 0.5 mg/dL [facility] Alkaline Phosphatase 93 40 - 150 U/L [facility] AST 16 5 - 34 U/L [facility] ALT 11 6 - 55 U/L [facility] Specimen Blood Performing Organization Address [facility] Phone Number [address] [address] [phone] [place] VASCULAR DIAGRAM -SCAN (02/17/2018 10:50 AM CDT) Narrative Performed At CARDIAC CATH REPORT - SCAN (02/17/2018 10:50 AM CDT) Narrative Performed At RHYTHM STRIP - SCAN (02/17/2018 10:50 AM CDT)Only the most recent of3 resultswithin the time period is included. Narrative Performed At IR Port-a-Cath Placement (02/16/2018 12:54 PM CDT) Narrative Performed At FINAL REPORT [employer] [facility] Right internal jugular chest port insertion History: Patient requires access for chemotherapy. Modality: Sonography and fluoroscopy. Sedation: Versed 1.5 mg and fentanyl 75 mcg given intravenously for conscious sedation.Vital signs were monitored throughout the procedure by a nurse, and remained stable. Physician intra-service time was 25 minutes. Payroll Examiner:Peña Zepeda MD Thread Clipper:Jose Martin. Approach: Right internal jugular vein Estimated [...] needle into the right atrium. A 4 Sami micropuncture sheath was placed. A subcutaneous tunnel [...] MD Report Verified Date/Time:02/16/2018 18:32:11 Reading Location: [place] [id number] Angio Body Reading Room Procedure Note Interface, [...] stable. Physician intra-service time was 25 minutes. Payroll Examiner: Peña Zepeda MD Thread Clipper: Jose Martin. Approach: Right internal jugular vein [...] needle into the right atrium. A 4 Sami micropuncture sheath was placed. A subcutaneous tunnel [...] Report Verified Date/Time: 02/16/2018 18:32:11 Reading Location: [place] [address] Angio Body Reading Room Performing Organization Address City/State/Zipcode Phone Number GE RIS CBC (Hemogram only) (02/16/2018 5:26 AM CDT)Only the most recent of16 resultswithin the time period is included. WBC 6.6 3.5 - 10.5 K/L [facility] RBC 2.98 (L) 4.63 - 6.08 M/L [facility] Hemoglobin 8.9 (L) 13.7 - 17.5 GM/DL [facility] Hematocrit 28.6 (L) 40.1 - 51.0 % [facility] MCV 96.0 (H) 79.0 - 92.2 fL [facility] MCH 29.9 25.7 - 32.2 pg [facility] MCHC 31.1 (L) 32.3 - 36.5 GM/DL [facility] RDW 14.7 (H) 11.6 - 14.4 % [facility] Platelets 206 150 - 450 K/CU MM [facility] MPV 8.9 (L) 9.4 - 12.4 fL [facility] nRBC 0 0 - 0 /100 WBC [facility] Specimen Blood - Arm, Right Performing Organization Address [facility]/Zipcode Phone Number [facility] [address] [place] [address] CENTER REPORT OF PROCEDURE - ENDOSCOPY URL (02/15/2018 1:01 PM CDT) Narrative Performed At FINE NEEDLE ASPIRATE (FNA) REQUEST (02/15/2018 11:03 AM CDT) Cytology See Separate Report [facility] Specimen Fine Needle Aspirate - Liver Performing Organization Address [facility] Phone Number [facility] [address] [place] [address] [phone] CENTER Fine Needle Aspirate by Clinician (02/15/2018 11:03 AM CDT) Case Report Medical Cytology Report Case: [id number] [facility] Authorizing Provider:Fadi Philippe MDCollected: 02/15/2018 1103 [facility] Ordering Location: [address] Received: 02/16/2018 0959 Service Pathologist: Yas Townsend Specimen:Liver, Liver mass FNA in CRR for cytology DIAGNOSIS LIVER MASS FNA BY CLINICIAN (CYTOSPINS AND CELL BLOCK OF ASPIRATE): [facility] - POSITIVE FOR MALIGNANCY, MORPHOLOGICALLY COMPATIBLE WITH RECTAL CARCINOMA PRIMARY [facility] Signing Pathologist Direct Phone Line: [phone] COMMENT Cytospins show clusters of benign appearing hepatocytes. The cell block show predominantly hepatic parenchyma with a focal attached area of atypical glands with hyperchromatic and pleomorphic nuclei. [facility] The previous case, [id number] is reviewed and shows similar features. [facility] Intradepartmental Consultation: Noy Bailey MD has reviewed the case and agrees with the findings. CPT Code(s) 67666, 00083 [facility] CLINICAL DATA (1.3 x 0.9 cm) round mass in [facility] the left lobe of the liver, [facility] recently diagnosed with rectal cancer(see [id number]) SPECIMEN SOURCE LIVER MASS FNA [facility] GROSS DESCRIPTION 27 mls in cytorich red; 4 cytospins, cell block [facility] Collected: [id number] [facility] Received: [id number] Technical component was [facility] performed at [place], Department of [facility] Pathology, [address] [place] [address], Professional component [facility] was performed at [place], Department of [facility] Pathology, [address] [place] [address], Specimen Fine Needle Aspirate - Liver Narrative Performed At Performing Organization Address City/State/Zipcode Phone Number [address] [address] CENTER Tissue Exam (02/15/2018 10:55 AM CDT)Only the most recent of4 resultswithin the time period is included. Case Report Surgical Pathology Report Case: [id number] [facility] Authorizing Provider:Fadi Philippe MDCollected: 02/15/2018 1055 [facility] Ordering Location: [address] Received: 02/15/2018 1604 Service Pathologist: Timothy Mendoza MD Specimen:Liver, Liver Mass DIAGNOSIS LIVER MASS, ULTRASOUND-GUIDED CORE NEEDLE BIOPSY: [facility] - FRAGMENTED CORES OF BENIGN LIVER PARENCHYMA [facility] - MINIMAL STEATOSIS (LESS THAN 1%) - MINIMAL PERIPORTAL FIBROSIS - NEGATIVE FOR MALIGNANCY (SEE COMMENT) Signing Pathologist Direct Phone Line: [phone] COMMENT Clinical and radiographic [facility] correlation is recommended [facility] to determine if this represents the lesion. CPT Code(s) 54125, 99721 x 2 [facility] CLINICAL HISTORY Rectal cancer [facility] SPECIMEN SOURCE Liver mass [facility] GROSS DESCRIPTION The specimen is received in [facility] a formalin-filled container [facility] and labeled with the patient's information [...] the fragmented nature of the specimen, it [facility] is difficult to appreciate architectural distortion. There is no bile ductular proliferation or reaction seen. Special stain trichrome and reticulin is performed with appropriately reactive controls on [facility] A1 and trichrome highlights minimal periportal fibrosis; reticulin shows preserved normal hepatic trabecular architecture. SPECIAL STUDIES The following special studies were performed on this case and the interpretation is incorporated in the diagnostic report above: [facility] The following special studies were performed on this case and the interpretation is incorporated in the diagnostic report above: trichrome, reticulin. [facility] Specimen Tissue - Liver Performing Organization Address City/State/Zipcode Phone Number [address] LIMITED/LOCALIZED FOLLOW-UP (02/14/2018 10:40 AM CDT) Narrative Performed At Addendum Begins Spot Runner [facility] REPORT STATUS:A This exam was performed according to our departmental dose optimization program which includes automated exposure control, adjustment of the mA and/or kV according to patient size and/or use of iterative reconstructive technique. Signed: Jessica Wise MD Report Verified Date/Time:02/27/2018 08:10:53 Reading Location: [facility] Diagnostic Imaging Reading Room - [place] [address] Addendum Ends FINAL REPORT History: Liver masses COMPARISON: CT dated 02/09/2018 and an ultrasound dated 02/13/2018 DISCUSSION: The hepatic lesions were unable to be previously seen under ultrasound and therefore, the patient was sent to CT for potential biopsy under CT guidance. A information receptionist image was obtained prior to the biopsy procedure. The previously seen nodular foci within the liver are not well delineated on the information receptionist images. Some poorly seen hypodense foci are seen towards the hepatic dome. Attempted visualization was made during real-time CT fluoroscopy. However, due to the patient's breathing as well as the small size and location of the lesions within liver, no focal lesion could be localized reliably for a safe CT guided biopsy. Signed: Jessica Wise MD Report Verified Date/Time:02/14/2018 16:38:16 Reading Location: [address] Body Reading Room Procedure Note Interface, External Ris In - 02/27/2018 8:13 AM PRESS CUTTER Addendum Begins REPORT STATUS:A This exam was performed according to our departmental dose optimization program which includes automated exposure control, adjustment of the mA and/or kV according to patient size and/or use of iterative reconstructive technique. Signed: Jessica Wise MD Report Verified Date/Time: 02/27/2018 08:10:53 Reading Location: [facility] Diagnostic Imaging Reading Room - [facility] F1 1120 Addendum Ends FINAL REPORT History: Liver masses COMPARISON: CT dated 02/09/2018 and an ultrasound dated 02/13/2018 DISCUSSION: The hepatic lesions were unable to be previously seen under ultrasound and therefore, the patient was sent to CT for potential biopsy under CT guidance. A information receptionist image was obtained prior to the biopsy procedure. The previously seen nodular foci within the liver are not well delineated on the information receptionist images. Some poorly seen hypodense foci are seen towards the hepatic dome. Attempted visualization was made during real-time CT fluoroscopy. However, due to the patient's breathing as well as the small size and location of the lesions within liver, no focal lesion could be localized reliably for a safe CT guided biopsy. Signed: Jessica Wise MD Report Verified Date/Time: 02/14/2018 16:38:16 Reading Location: [facility] C013Y CT Body Reading Room Performing Organization Address City/State/Zipcode Phone Number [facility] US abdomen limited (02/13/2018 12:00 PM CDT) Narrative Performed At FINAL REPORT [facility] Ultrasound of abdomen, limited INDICATION: Liver mass COMPARISON: CT dated February 09, 2018 FINDINGS: Sonographic evaluation of the liver is performed in preparation for biopsy of liver lesion seen on recent CT. However, no focal lesion is identified on ultrasound and biopsy was not performed. Signed: Joanne Diaz MD Report Verified Date/Time:02/14/2018 07:47:16 Reading Location: [facility] Radiology Reading Room Procedure Note Interface, [...] Report Verified Date/Time: 02/14/2018 07:47:16 Reading Location: [facility] Radiology Reading Room Performing Organization Address City/State/Zipcode Phone Number [facility] Venous doppler arm, left (02/11/2018 3:54 PM CDT) Ejection Fraction [facility] Impressions Performed At Right Impression [facility] SayduckCKESSON CPACS NOT ORDRED Left Impression 1. There [...] Upper Extremities Veins [facility] Demographics Patient Name JASWINDER RANDALL Date of Study 02/11/2018 ESTEFANIA [id number] Age 62 Visit Number [id number] GenderMale Accession Number [id number] Date of 1955 Herman Inman Norma Number 1034 Physician SonographerAlka Bhatti InterpretingTori Moncada MD, RVT Physician [facility]I Procedure Type of Study: Veins: Upper Extremities Veins, VENOUS DOPPLER ARM, LEFT. Indications for Study:SP MIDLINE PLACEMENT/INFILTRATION and Tenderness. Patient Status:Routine. Study Location:Vascular Lab. Technical Quality:Adequate visualization. - Results were reported to:Dr. Sampson paged- no answer, Results given to ELENA Calix @ 5685. Risk Factors History of Disease + +----+ + !Diagnosis !Date!Comments ! + +----+ + !History/Risk!!HTN, PVD, H/o CKD, Current Smoker, PAD (Fem-Pop ! !Factors:!!BPG) ! + +----+ + Procedure Note Interface, External Ris In - 02/12/2018 4:10 AM CDT PV LAB - Upper Extremities Veins Demographics Patient Name JASWINDER RANDALL Date of Study 02/11/2018 ESTEFANIA Age 62 Visit Number [id number] Gender Male Accession Number [id number] Date of 1955 Referring Adrián Inman MD Room Number 1034 Physician Cleaners Alka Bhatti Interpreting Tori Moncada MD, RVT Physician [facility]PVI Procedure Type of Study: Veins: Upper Extremities Veins, VENOUS DOPPLER ARM, LEFT. Indications for Study:SP MIDLINE PLACEMENT/INFILTRATION and Tenderness. Patient Status:Routine. Study Location:Vascular Lab. Technical Quality:Adequate visualization. - Results were reported to:Dr. Sampson paged- no answer, Results given to ELENA Calix @ 6374. Risk Factors History of Disease + +----+ [...] are measured in cm Performing Organization Address City/[facility] Phone Number [facility] Iron, TIBC, % sat. (without ferritin) (02/10/2018 5:36 AM CDT) Iron 26 (L) 40 - 160 ug/dL [facility] TIBC 274 250 - 450 ug/dL [facility] Iron % Saturation 9 (L) 20 - 55 % [facility] Specimen Blood - Arm, Right Performing Organization Address City/[facility]/Zipcode Phone Number [facility] [address] [place] [address] CENTER Vitamin D, 25-Hydroxy (02/10/2018 5:36 AM CDT) Vitamin D 25-Hydroxy 10.7 6.6 - 49.9 ng/mL [facility] Specimen Blood - Arm, Right Narrative Performed At [facility] Effective 02/02/2017: Reference Range Change New: 6.6-49.9 ng/mL Previous: 13.0-47.8 ng/mL Recommended Vitamin D Target Range: 30.0-40.0 ng/mL Performing Organization Address [facility] Phone Number [address] [address] CENTER Uric acid (02/10/2018 5:36 AM CDT) Uric Acid 6.2 2.6 - 7.2 mg/dL [facility] Specimen Blood - Arm, Right Performing Organization Address [facility] Phone Number [address] [address] [place] Protein electrophoresis, serum (02/10/2018 5:36 AM CDT) Albumin Fraction 2.6 (L) 3.5 - 5.5 g/dL [facility] Alpha 1 Fraction 0.2 0.2 - 0.4 g/dL [facility] Alpha 2 Fraction 0.6 0.5 - 0.9 g/dL [facility] Beta Fraction 0.9 0.6 - 1.1 g/dL [facility] Gamma Globulin Fraction 0.7 0.7 - 1.7 g/dL [facility] Interpretation Decreased albumin, [facility] suggestive of protein [facility] CENTER loss. Pattern otherwise consistent with mild acute inflammatory response. No monoclonal bands detected. Pathologist: Lilly Harris MD [facility] (electronic signature) [facility] Protein, Total 5.0 (L) 6.0 - 8.3 gm/dL [facility] Specimen Blood - Arm, Right Performing Organization Address [facility] Phone Number [address] [address] [phone] CENTER PTH, intact (02/10/2018 5:36 AM CDT) PTH 78.6 (H) 8.5 - 72.5 pg/mL [facility] Specimen Blood - Arm, Right Performing Organization Address [facility]/Zipcode Phone Number [facility] [address] [place], [place] [id number] [place] Ferritin (02/10/2018 5:36 AM CDT) Ferritin 36 5 - 275 ng/mL [facility] Specimen Blood - Arm, Right Performing Organization Address [facility] Phone Number [address] [address] [place] Carcinoembryonic Antigen (CEA) (02/10/2018 5:36 AM CDT) CEA, SERUM 2.6 0.0 - 5.0 ng/mL [facility] Specimen Blood - Arm, Right Performing Organization Address [facility] Phone Number [address] [id number] [phone] [place] [address] abdomen/pelvis with IV contrast (02/09/2018 11:18 PM CDT) Narrative Performed At FINAL REPORT [facility] CT, CHEST, WITH CONTRAST, CT, ABDOMEN \\T\\ [...] MD Report Verified Date/Time:02/10/2018 00:28:46 Reading Location: [facility] C0[facility] CT Body Reading Room Procedure Note Interface, [...] Report Verified Date/Time: 02/10/2018 00:28:46 Reading Location: [facility] B[address] C[address] Body Reading Room Performing Organization Address City/State/Zipcode Phone Number Splash CT chest with IV contrast (02/09/2018 11:18 PM CDT) Narrative Performed At FINAL REPORT Splash CT, CHEST, WITH CONTRAST, CT, ABDOMEN \\T\\ [...] TELLEZ Report Verified Date/Time:02/10/2018 00:28:46 Reading Location: [facility] B[address] C[address] Body Reading Room [...] Report Verified Date/Time: 02/10/2018 00:28:46 Reading Location: [facility] B[address] C[address] Body Reading Room Performing Organization Address City/State/Zipcode Phone Number GE RIS Protein, random urine (02/09/2018 5:43 PM CDT) Protein, Urine <7 0 - 14 mg/dL [facility] Specimen Urine - Urine, Voided Performing Organization Address [facility] Phone Number [address] [address] CENTER Prepare Leuko-Red RBC (02/08/2018 11:54 PM CDT)Only the most recent of2 resultswithin the time period is included. CROSSMATCH COMPATIBLE SAFETRACE TX Unit ABO A Pos SAFETRACE TX UNIT NUMBER [id number] SAFETRACE TX Status TRANSFUSED SAFETRACE TX Blood Bank Product RED BLOOD CELLS SAFETRACE TX PRODUCT CODE [id number] SAFETRACE TX Specimen Other Performing Organization Address [facility] Phone Number SAFETRACE TX POC ACTIVATED CLOTTING TIME (02/08/2018 3:17 PM CDT)Only the most recent of6 resultswithin the time period is included. Activated Clotting Time 114Comment: TESTED AT sec [facility] [address] [address] Specimen Blood Performing Organization Address [facility] Phone Number [address] [address] CENTER Transfuse Leuko-Red RBC (02/08/2018 2:23 AM CDT)Only the most recent of5 resultswithin the time period is included.REPORT OF PROCEDURE - ENDOSCOPY URL ( 02/06/2018 7:31 PM CDT) Narrative Performed At Arterial doppler leg, right (02/06/2018 10:55 AM CDT) Ejection Fraction [facility] Impressions Performed At Right Impression [facility]. The common femoral and profunda femoral [...] + + + + + + !Prox BUSINESS APPLICATIONS DEVELOPER ! !28.3! ! ! + + + + + + !Mid BUSINESS APPLICATIONS DEVELOPER ! !43.6!8.25 ! ! + + + [...] PV LAB - Lower Extremity Arterial Duplex [facility] Demographics Patient Name JASWINDER RANDALL Date of Study 02/06/2018 ESTEFANIA [id number] Age 62 Visit Number [id number] GenderMale Accession Number [id number] Date of 1955 [facility] GriderRoom Number 2443 MD Slava SonographJose Gandhi T [facility] Roger Moncada MD, Physician RPVI Procedure Type [...] Study 02/06/2018 ESTEFANIA Age 62 Visit Number [id number] Gender Male Accession Number [id number] Date of 1955 Referring Sachin Grider Room Number 8793 Physician MD Jaciel Cleaners Neeru Gandhi T Interpreting Tori Moncada MD, [...] + + + ------+ + + !Prox BUSINESS APPLICATIONS DEVELOPER ! !28.3 ! ! ! + + + ------+ + + !Mid BUSINESS APPLICATIONS DEVELOPER ! !43.6 !8.25 ! ! + + [...] + ------+ + + Performing Organization Address City/[facility]/Zipcode Phone Number [facility] aPTT (02/05/2018 10:36 PM CDT)Only the most recent of21 resultswithin the time period is included. PTT 44.4 (H) 22.5 - 36.0 seconds [facility] Specimen Blood Performing Organization Address [facility] Phone Number [facility] [address] [place] [address] CENTER CARDIAC CATH REPORT - SCAN (01/31/2018 8:10 AM CDT) Narrative Performed At POC-Glucose meter (01/26/2018 7:14 AM CDT)Only the most recent of9 resultswithin the time period is included. POC-Glucose Meter 129 (H)Comment: TESTED AT 70 - 110 mg/dL [facility] [address] [place] [address] Specimen Blood Performing Organization Address [facility] [place] [address] [place] Platelet Aggregation: Function Screen (01/25/2018 7:34 AM CDT)Only the most recent of3 resultswithin the time period is included. Weak ADP 48 (L) 60 - 91 % [facility] Plt. Function Screen 40-49% indicates [facility] Interpretation moderate platelet [facility] dysfunction Pathologist: Buzz Urbano M.D. [facility] (electonic signature) [facility] Platelets 187 150 - 450 K/CU [facility] MM [facility] Specimen Blood - Arm, Right Performing Organization Address [facility] [place] [place] [address] [place] Calcium, Ionized (01/23/2018 10:00 PM CDT)Only the most recent of2 resultswithin the time period is included. Calcium, Ion 1.04 (L) 1.12 - 1.27 mmol/L [facility] pH, Blood 7.41 [facility] Specimen Blood Performing Organization Address [facility] Phone Number [address] [address] [place] Potassium-Stat Lab (01/23/2018 6:34 PM CDT)Only the most recent of3 resultswithin the time period is included. Potassium 4.5 3.6 - 5.5 meq/L [facility] Specimen Blood, Arterial Performing Organization Address [facility] Phone Number [address] [place] [address] [place] Glucose-Stat Lab (01/23/2018 6:34 PM CDT)Only the most recent of3 resultswithin the time period is included. Glucose 149 (H) 70 - 110 mg/dL [facility] Specimen Blood, Arterial Performing Organization Address City/[facility]/Zipcode Phone Number [address] [address] [phone] [place] HIV-1 Antigen with HIV-1/2 Antibody (01/23/2018 6:34 PM CDT) HIV-1 Antigen with HIV 1&2 NON-REACTIVE Nonreactive [facility] Specimen Blood Performing Organization Address [facility] Phone Number [address] [address] [phone] [place] Hepatitis B surface antigen (01/23/2018 6:34 PM CDT) hepatitis B Surface Ag NON-REACTIVE Nonreactive [facility] Specimen Blood Performing Organization Address City/[facility]/Zipcode Phone Number [address] [address] [phone] [place] Hemoglobin A1c (01/23/2018 6:34 PM CDT) Hemoglobin A1C 5.5 4.3 - 6.1 % [facility] Specimen Blood Performing Organization Address City/[facility] Phone Number [address] [address] [place] Blood gas, arterial (01/23/2018 6:34 PM CDT)Only the most recent of3 resultswithin the time period is included. pH, Arterial 7.34 (L) 7.35 - 7.45 [facility] pCO2, Arterial 38 35 - 45 mmHg [facility] pO2, Arterial 92 (H) 80 - 90 mmHg [facility] O2 Sat, Arterial 97.4 (H) 96.0 - 97.0 % [facility] HCO3, Arterial 21 21 - 29 mmol/L [facility] Base Excess, Arterial -5.3 (L) -2.0 - 3.0 mmol/L [facility] Patient Temperature 34.7 C [facility] FIO2 28.0 % [facility] Specimen Blood, Arterial Performing Organization Address City/[facility] Phone Number [address] [address] [phone] [place] Sodium Na-Stat Lab (11/17/2017 10:27 AM CDT)Only the most recent of2 resultswithin the time period is included. Sodium 137 135 - 148 meq/L [facility] Specimen Blood, Arterial Narrative Performed At Only if arterial line in place and/or patient [facility] on ventilator Performing Organization Address City/[facility] Phone Number [address] [address] [place] HGB/HCT (H&H)-Stat Lab (11/17/2017 10:27 AM CDT)Only the most recent of2 resultswithin the time period is included. Hemoglobin 14.2 13.0 - 16.8 g/dL [facility] Hematocrit 42.0 40.0 - 50.0 % [facility] Specimen Blood, Arterial Narrative Performed At Only if arterial line in place and/or patient [facility] on ventilator Performing Organization Address [facility] Phone Number [address] [address] [place] Urinalysis w/ Microscopic (11/17/2017 5:39 AM CDT) Color, UA Light Yellow [facility] Clarity, UA Clear [facility] Specific Carmine, UA 1.009 1.001 - 1.035 [facility] pH, UA 6.0 5.0 - 8.0 [facility] Protein, UA Negative Negative [facility] Glucose, UA Negative Negative [facility] Ketones, UA Negative Negative [facility] Bilirubin, UA Negative Negative [facility] Blood, UA Negative Negative [facility] Nitrite, UA Negative Negative [facility] Leukocytes, UA Negative Negative [facility] Urobilinogen, UA 0.2 0.2 - 1.0 mg/dL [facility] RBC, UA 1 /HPF [facility] WBC, UA <1 /HPF [facility] Specimen Source Urine, Voided [facility] Specimen Urine - Urine, Voided Performing Organization Address City/State/Zipcode Phone Number [facility] [address] [place] [address] CENTER Vein Mapping Legs Bilateral (11/17/2017 5:15 AM CDT) Ejection Fraction [facility] Impressions Performed At Right Impression [facility] 1. There is [...] PV LAB - Lower Extremities Vein Mapping [facility] Demographics Patient Name JASWINDER RANDALL Date of Study11/17/2017 [id number] Visit Number [id number] Gender Male Accession Number [id number] Date of Birth1955 [facility] [id number] Physician Becky Moncada MD, [place] PhysicianRPVI Procedure [...] of Study 11/17/2017 Age 62 Visit Number [id number] Gender Male Accession Number [id number] Date of 1955 Referring [facility]ly [facility] Room Number 2C24 Physician Cleaners Rey Wetzel Interpreting Tori Moncada MD, [facility] Physician RPVI Procedure Type of Study: [...] Medicare Advance Directives For more information, please contact:[address] [phone] Code Status Date Activated Date Inactivated Comments [...] Patient Name Relationship Healthcare Agent Relationship Phone MarlandArmando martinez Friend Primary healthcare agent [phone] Manuel Stewart Relative First alternate healthcare agent [phone] KrisCalvin levy Friend Second alternate healthcare agent [phone]
--- OUTSIDE RECORDS SUMMARY | 2018-06-03 15:18 | XMS REPORT ---
:1955 [facility] [address] [place] [address] Care Team Providers Name Role Phone BRANDEN [...] TOTAL PROTEIN (BEAKER) (test 5.9 gm/dL 6.0-8.3 gyub=781) ALBUMIN (BEAKER) (test 3.1 g/dL 3.5-5.0 jufs=0384) ALKALINE PHOSPHATASE 61 U/L 40-150 (BEAKER) (test qzmr=963) BILIRUBIN TOTAL (BEAKER) 0.2 mg/dL 0.2-1.2 (test fwxv=384) SODIUM (BEAKER) (test 139 meq/L 136-145 quhj=222) POTASSIUM (BEAKER) (test 4.7 meq/L 3.5-5.1 gzkr=396) CHLORIDE (BEAKER) (test 109 meq/L 98-107 dkqw=527) CO2 (BEAKER) (test bltu=321) 24 meq/L 22-29 BLOOD UREA NITROGEN (BEAKER) 21 mg/dL 7-21 (test xcnr=565) CREATININE (BEAKER) (test 1.61 mg/dL 0.57-1.25 rjku=242) GLUCOSE RANDOM (BEAKER) 101 mg/dL 70-105 (test enxa=005) CALCIUM (BEAKER) (test 8.4 mg/dL 8.4-10.2 uzdc=761) AST (SGOT) (BEAKER) (test 12 U/L 5-34 sirk=914) ALT (SGPT) (BEAKER) (test 6 U/L 6-55 kpso=692) EGFR (BEAKER) (test 44 mL/min/1.73 sq m ESTIMATED GFR IS NOT jjpz=5329) ACCURATE CREATININE CLEARANCE IN PREDICTING GLOMERULAR FILTRATION RATE. ESTIMATED GFR IS NOT APPLICABLE FOR DIALYSIS PATIENTS. CBC W/PLT COUNT & AUTO [id number] 06:16:00 Test Item Value Reference Range Comments WHITE BLOOD CELL COUNT (BEAKER) (test mgnt=564) 6.3 K/ L 3.5-10.5 RED BLOOD CELL COUNT (BEAKER) (test wksv=649) 3.55 M/ L 4.63-6.08 HEMOGLOBIN (BEAKER) (test quqk=164) 10.5 GM/DL 13.7-17.5 HEMATOCRIT (BEAKER) (test mxoj=291) 32.7 % 40.1-51.0 MEAN CORPUSCULAR VOLUME (BEAKER) (test xyvp=647) 92.1 fL 79.0-92.2 MEAN CORPUSCULAR HEMOGLOBIN (BEAKER) (test 29.6 pg 25.7-32.2 jlji=678) MEAN CORPUSCULAR HEMOGLOBIN CONC (BEAKER) (test 32.1 GM/DL 32.3-36.5 dwjt=380) RED CELL DISTRIBUTION WIDTH (BEAKER) (test 14.2 % 11.6-14.4 cobv=516) PLATELET COUNT (BEAKER) (test ishw=887) 363 K/CU MM 150-450 MEAN PLATELET VOLUME (BEAKER) (test dixf=623) 8.6 fL 9.4-12.4 NUCLEATED RED BLOOD CELLS (BEAKER) (test 0 /100 WBC 0-0 ldes=925) NEUTROPHILS RELATIVE PERCENT (BEAKER) (test 73 % pdwz=989) LYMPHOCYTES RELATIVE PERCENT (BEAKER) (test 20 % yepy=164) MONOCYTES RELATIVE PERCENT (BEAKER) (test 5 % leiy=103) EOSINOPHILS RELATIVE PERCENT (BEAKER) (test 2 % jtke=232) BASOPHILS RELATIVE PERCENT (BEAKER) (test 1 % zioy=472) NEUTROPHILS ABSOLUTE COUNT (BEAKER) (test 4.55 K/ L 1.78-5.38 uygv=614) LYMPHOCYTES ABSOLUTE COUNT (BEAKER) (test 1.24 K/ L 1.32-3.57 bxrr=397) MONOCYTES ABSOLUTE COUNT (BEAKER) (test 0.31 K/ L 0.30-0.82 rvla=399) EOSINOPHILS ABSOLUTE COUNT (BEAKER) (test 0.13 K/ L 0.04-0.54 phpv=393) BASOPHILS ABSOLUTE COUNT (BEAKER) (test 0.03 K/ L 0.01-0.08 nndr=509) IMMATURE GRANULOCYTES-RELATIVE PERCENT (BEAKER) 0 % 0-1 (test oejz=8940) COMPREHENSIVE METABOLIC [id number] 06:45:00 Test Item Value Reference Range Comments TOTAL PROTEIN (BEAKER) 6.2 gm/dL 6.0-8.3 (test lnpn=413) ALBUMIN (BEAKER) (test 3.2 g/dL 3.5-5.0 muup=8163) ALKALINE PHOSPHATASE 68 U/L 40-150 (BEAKER) (test bmvk=310) BILIRUBIN TOTAL (BEAKER) 0.3 mg/dL 0.2-1.2 (test nmop=303) SODIUM (BEAKER) (test 140 meq/L 136-145 zjkr=797) POTASSIUM (BEAKER) (test 4.7 meq/L 3.5-5.1 dumx=968) CHLORIDE (BEAKER) (test 109 meq/L 98-107 mirb=226) CO2 (BEAKER) (test 25 meq/L 22-29 lcmk=905) BLOOD UREA NITROGEN 20 mg/dL 7-21 (BEAKER) (test kvgx=594) CREATININE (BEAKER) (test 1.71 mg/dL 0.57-1.25 wgzi=078) GLUCOSE RANDOM (BEAKER) 104 mg/dL 70-105 (test znzi=618) CALCIUM (BEAKER) (test 8.4 mg/dL 8.4-10.2 kyni=501) AST (SGOT) (BEAKER) (test 11 U/L 5-34 jwjr=576) ALT (SGPT) (BEAKER) (test 8 U/L 6-55 avsk=411) EGFR (BEAKER) (test 41 mL/min/1.73 sq m ESTIMATED GFR IS NOT dtlx=6633) ACCURATE CREATININE CLEARANCE IN PREDICTING GLOMERULAR FILTRATION RATE. ESTIMATED GFR IS NOT APPLICABLE FOR DIALYSIS PATIENTS. CBC W/PLT COUNT & AUTO [id number] 05:36:00 Test Item Value Reference Range Comments WHITE BLOOD CELL COUNT (BEAKER) (test insg=856) 7.0 K/ L 3.5-10.5 RED BLOOD CELL COUNT (BEAKER) (test xdxm=992) 3.55 M/ L 4.63-6.08 HEMOGLOBIN (BEAKER) (test zise=951) 10.3 GM/DL 13.7-17.5 HEMATOCRIT (BEAKER) (test alep=480) 33.1 % 40.1-51.0 MEAN CORPUSCULAR VOLUME (BEAKER) (test cfdj=463) 93.2 fL 79.0-92.2 MEAN CORPUSCULAR HEMOGLOBIN (BEAKER) (test 29.0 pg 25.7-32.2 aect=047) MEAN CORPUSCULAR HEMOGLOBIN CONC (BEAKER) (test 31.1 GM/DL 32.3-36.5 pkrb=114) RED CELL DISTRIBUTION WIDTH (BEAKER) (test 14.2 % 11.6-14.4 uudb=221) PLATELET COUNT (BEAKER) (test rvvs=386) 409 K/CU MM 150-450 MEAN PLATELET VOLUME (BEAKER) (test zfzq=923) 8.7 fL 9.4-12.4 NUCLEATED RED BLOOD CELLS (BEAKER) (test 0 /100 WBC 0-0 ccxu=505) NEUTROPHILS RELATIVE PERCENT (BEAKER) (test 69 % lkdm=150) LYMPHOCYTES RELATIVE PERCENT (BEAKER) (test 21 % hvdr=751) MONOCYTES RELATIVE PERCENT (BEAKER) (test 7 % osuu=680) EOSINOPHILS RELATIVE PERCENT (BEAKER) (test 2 % olwf=942) BASOPHILS RELATIVE PERCENT (BEAKER) (test 1 % pwmz=895) NEUTROPHILS ABSOLUTE COUNT (BEAKER) (test 4.87 K/ L 1.78-5.38 bjal=360) LYMPHOCYTES ABSOLUTE COUNT (BEAKER) (test 1.46 K/ L 1.32-3.57 fwyj=453) MONOCYTES ABSOLUTE COUNT (BEAKER) (test 0.47 K/ L 0.30-0.82 nbzx=761) EOSINOPHILS ABSOLUTE COUNT (BEAKER) (test 0.16 K/ L 0.04-0.54 wman=995) BASOPHILS ABSOLUTE COUNT (BEAKER) (test 0.04 K/ L 0.01-0.08 dwza=968) IMMATURE GRANULOCYTES-RELATIVE PERCENT (BEAKER) 0 % 0-1 (test eqal=0723) CBC W/PLT COUNT & AUTO [id number] 06:02:00 Test Item Value Reference Range Comments WHITE BLOOD CELL COUNT (BEAKER) (test mwyc=786) 7.8 K/ L 3.5-10.5 RED BLOOD CELL COUNT (BEAKER) (test mcmy=850) 3.25 M/ L 4.63-6.08 HEMOGLOBIN (BEAKER) (test kvil=181) 9.6 GM/DL 13.7-17.5 HEMATOCRIT (BEAKER) (test bxtd=093) 30.2 % 40.1-51.0 MEAN CORPUSCULAR VOLUME (BEAKER) (test gkmc=898) 92.9 fL 79.0-92.2 MEAN CORPUSCULAR HEMOGLOBIN (BEAKER) (test 29.5 pg 25.7-32.2 znyv=908) MEAN CORPUSCULAR HEMOGLOBIN CONC (BEAKER) (test 31.8 GM/DL 32.3-36.5 rtyz=123) RED CELL DISTRIBUTION WIDTH (BEAKER) (test 14.3 % 11.6-14.4 ugez=296) PLATELET COUNT (BEAKER) (test bghr=578) 344 K/CU MM 150-450 MEAN PLATELET VOLUME (BEAKER) (test kbcp=484) 8.7 fL 9.4-12.4 NUCLEATED RED BLOOD CELLS (BEAKER) (test 0 /100 WBC 0-0 lobm=334) NEUTROPHILS RELATIVE PERCENT (BEAKER) (test 66 % gxhw=898) LYMPHOCYTES RELATIVE PERCENT (BEAKER) (test 19 % tkvm=169) MONOCYTES RELATIVE PERCENT (BEAKER) (test 8 % dthh=500) EOSINOPHILS RELATIVE PERCENT (BEAKER) (test 6 % dlcu=038) BASOPHILS RELATIVE PERCENT (BEAKER) (test 1 % zqxg=497) NEUTROPHILS ABSOLUTE COUNT (BEAKER) (test 5.20 K/ L 1.78-5.38 wnxy=409) LYMPHOCYTES ABSOLUTE COUNT (BEAKER) (test 1.51 K/ L 1.32-3.57 dlbp=512) MONOCYTES ABSOLUTE COUNT (BEAKER) (test 0.61 K/ L 0.30-0.82 pnpc=645) EOSINOPHILS ABSOLUTE COUNT (BEAKER) (test 0.43 K/ L 0.04-0.54 ogus=876) BASOPHILS ABSOLUTE COUNT (BEAKER) (test 0.05 K/ L 0.01-0.08 amlr=706) IMMATURE GRANULOCYTES-RELATIVE PERCENT (BEAKER) 0 % 0-1 (test zbyr=8257) CBC W/PLT COUNT & AUTO [id number] 04:40:00 Test Item Value Reference Range Comments WHITE BLOOD CELL COUNT (BEAKER) (test vvex=200) 7.7 K/ L 3.5-10.5 RED BLOOD CELL COUNT (BEAKER) (test lcdg=256) 3.27 M/ L 4.63-6.08 HEMOGLOBIN (BEAKER) (test xbqv=616) 9.7 GM/DL 13.7-17.5 HEMATOCRIT (BEAKER) (test gtqm=042) 30.6 % 40.1-51.0 MEAN CORPUSCULAR VOLUME (BEAKER) (test rvob=149) 93.6 fL 79.0-92.2 MEAN CORPUSCULAR HEMOGLOBIN (BEAKER) (test 29.7 pg 25.7-32.2 ltba=330) MEAN CORPUSCULAR HEMOGLOBIN CONC (BEAKER) (test 31.7 GM/DL 32.3-36.5 ooxg=347) RED CELL DISTRIBUTION WIDTH (BEAKER) (test 14.4 % 11.6-14.4 llvc=288) PLATELET COUNT (BEAKER) (test pvnr=018) 329 K/CU MM 150-450 MEAN PLATELET VOLUME (BEAKER) (test qejj=473) 8.5 fL 9.4-12.4 NUCLEATED RED BLOOD CELLS (BEAKER) (test 0 /100 WBC 0-0 xegi=419) NEUTROPHILS RELATIVE PERCENT (BEAKER) (test 64 % vhgg=946) LYMPHOCYTES RELATIVE PERCENT (BEAKER) (test 21 % mhou=170) MONOCYTES RELATIVE PERCENT (BEAKER) (test 10 % mzcd=559) EOSINOPHILS RELATIVE PERCENT (BEAKER) (test 5 % gaxn=364) BASOPHILS RELATIVE PERCENT (BEAKER) (test 1 % dfil=909) NEUTROPHILS ABSOLUTE COUNT (BEAKER) (test 4.88 K/ L 1.78-5.38 saok=042) LYMPHOCYTES ABSOLUTE COUNT (BEAKER) (test 1.60 K/ L 1.32-3.57 dxcs=286) MONOCYTES ABSOLUTE COUNT (BEAKER) (test 0.74 K/ L 0.30-0.82 llqt=003) EOSINOPHILS ABSOLUTE COUNT (BEAKER) (test 0.37 K/ L 0.04-0.54 vkcj=799) BASOPHILS ABSOLUTE COUNT (BEAKER) (test 0.05 K/ L 0.01-0.08 qtpm=907) IMMATURE GRANULOCYTES-RELATIVE PERCENT (BEAKER) 0 % 0-1 (test iyyt=7306) [id number] 06:27:00 Test Item Value Reference Range Comments MAGNESIUM (BEAKER) (test 2.2 mg/dL 1.6-2.6 Specimen slightly hemolyzed xiil=527) BASIC METABOLIC [id number] 06:27:00 Test Item Value Reference Range Comments SODIUM (BEAKER) (test 142 meq/L 136-145 iuub=768) POTASSIUM (BEAKER) (test 4.6 meq/L 3.5-5.1 Specimen slightly tsvl=662) hemolyzed CHLORIDE (BEAKER) (test 111 meq/L 98-107 utlw=422) CO2 (BEAKER) (test 24 meq/L 22-29 otla=391) BLOOD UREA NITROGEN 14 mg/dL 7-21 (BEAKER) (test tmqf=625) CREATININE (BEAKER) (test 1.63 mg/dL 0.57-1.25 Specimen slightly xqll=990) hemolyzed GLUCOSE RANDOM (BEAKER) 102 mg/dL 70-105 (test wuco=576) CALCIUM (BEAKER) (test 8.7 mg/dL 8.4-10.2 bdnq=415) EGFR (BEAKER) (test 43 mL/min/1.73 sq m ESTIMATED GFR IS NOT pzjd=8492) ACCURATE CREATININE CLEARANCE IN PREDICTING GLOMERULAR FILTRATION RATE. ESTIMATED GFR IS NOT APPLICABLE FOR DIALYSIS PATIENTS. CBC W/PLT COUNT & AUTO [id number] 06:07:00 Test Item Value Reference Range Comments WHITE BLOOD CELL COUNT (BEAKER) (test gcoe=451) 7.2 K/ L 3.5-10.5 RED BLOOD CELL COUNT (BEAKER) (test fayn=709) 3.28 M/ L 4.63-6.08 HEMOGLOBIN (BEAKER) (test bcrf=556) 9.6 GM/DL 13.7-17.5 HEMATOCRIT (BEAKER) (test eehu=489) 30.1 % 40.1-51.0 MEAN CORPUSCULAR VOLUME (BEAKER) (test ihxj=441) 91.8 fL 79.0-92.2 MEAN CORPUSCULAR HEMOGLOBIN (BEAKER) (test 29.3 pg 25.7-32.2 pdup=158) MEAN CORPUSCULAR HEMOGLOBIN CONC (BEAKER) (test 31.9 GM/DL 32.3-36.5 odop=520) RED CELL DISTRIBUTION WIDTH (BEAKER) (test 14.4 % 11.6-14.4 uzzp=845) PLATELET COUNT (BEAKER) (test qyji=989) 309 K/CU MM 150-450 MEAN PLATELET VOLUME (BEAKER) (test alml=560) 8.8 fL 9.4-12.4 NUCLEATED RED BLOOD CELLS (BEAKER) (test 0 /100 WBC 0-0 qtnv=226) NEUTROPHILS RELATIVE PERCENT (BEAKER) (test 64 % eury=604) LYMPHOCYTES RELATIVE PERCENT (BEAKER) (test 22 % sjsg=997) MONOCYTES RELATIVE PERCENT (BEAKER) (test 9 % ibhx=785) EOSINOPHILS RELATIVE PERCENT (BEAKER) (test 4 % cyrg=596) BASOPHILS RELATIVE PERCENT (BEAKER) (test 1 % xynw=764) NEUTROPHILS ABSOLUTE COUNT (BEAKER) (test 4.63 K/ L 1.78-5.38 wdbx=131) LYMPHOCYTES ABSOLUTE COUNT (BEAKER) (test 1.57 K/ L 1.32-3.57 bile=911) MONOCYTES ABSOLUTE COUNT (BEAKER) (test 0.63 K/ L 0.30-0.82 lvhc=145) EOSINOPHILS ABSOLUTE COUNT (BEAKER) (test 0.29 K/ L 0.04-0.54 awqk=781) BASOPHILS ABSOLUTE COUNT (BEAKER) (test 0.04 K/ L 0.01-0.08 pbso=138) IMMATURE GRANULOCYTES-RELATIVE PERCENT (BEAKER) 1 % 0-1 (test ylwh=2032) [id number] 13:12:00 Test Item Value Reference Range Comments MAGNESIUM (BEAKER) (test 2.0 mg/dL 1.6-2.6 Specimen slightly hemolyzed ogvd=156) BASIC METABOLIC [id number] 13:12:00 Test Item Value Reference Range Comments SODIUM (BEAKER) (test 140 meq/L 136-145 flya=651) POTASSIUM (BEAKER) (test 4.3 meq/L 3.5-5.1 Specimen slightly oovp=239) hemolyzed CHLORIDE (BEAKER) (test 107 meq/L 98-107 gisx=348) CO2 (BEAKER) (test 26 meq/L 22-29 ozow=582) BLOOD UREA NITROGEN 16 mg/dL 7-21 (BEAKER) (test bgdu=872) CREATININE (BEAKER) (test 1.70 mg/dL 0.57-1.25 Specimen slightly xwck=350) hemolyzed GLUCOSE RANDOM (BEAKER) 95 mg/dL 70-105 (test cjiz=184) CALCIUM (BEAKER) (test 9.0 mg/dL 8.4-10.2 pjyv=735) EGFR (BEAKER) (test 41 mL/min/1.73 sq m ESTIMATED GFR IS NOT hnpy=4853) ACCURATE CREATININE CLEARANCE IN PREDICTING GLOMERULAR FILTRATION RATE. ESTIMATED GFR IS NOT APPLICABLE FOR DIALYSIS PATIENTS. CBC W/PLT COUNT & AUTO [id number] 12:57:00 Test Item Value Reference Range Comments WHITE BLOOD CELL COUNT (BEAKER) (test clrv=127) 7.8 K/ L 3.5-10.5 RED BLOOD CELL COUNT (BEAKER) (test nwoz=548) 3.61 M/ L 4.63-6.08 HEMOGLOBIN (BEAKER) (test skpe=910) 10.7 GM/DL 13.7-17.5 HEMATOCRIT (BEAKER) (test mliq=159) 33.6 % 40.1-51.0 MEAN CORPUSCULAR VOLUME (BEAKER) (test uirv=840) 93.1 fL 79.0-92.2 MEAN CORPUSCULAR HEMOGLOBIN (BEAKER) (test 29.6 pg 25.7-32.2 dchr=198) MEAN CORPUSCULAR HEMOGLOBIN CONC (BEAKER) (test 31.8 GM/DL 32.3-36.5 ypxe=083) RED CELL DISTRIBUTION WIDTH (BEAKER) (test 14.5 % 11.6-14.4 hnli=373) PLATELET COUNT (BEAKER) (test fyqk=856) 306 K/CU MM 150-450 MEAN PLATELET VOLUME (BEAKER) (test rwdj=906) 8.7 fL 9.4-12.4 NUCLEATED RED BLOOD CELLS (BEAKER) (test 0 /100 WBC 0-0 ngad=009) NEUTROPHILS RELATIVE PERCENT (BEAKER) (test 65 % rftv=863) LYMPHOCYTES RELATIVE PERCENT (BEAKER) (test 20 % tcna=037) MONOCYTES RELATIVE PERCENT (BEAKER) (test 11 % eeco=282) EOSINOPHILS RELATIVE PERCENT (BEAKER) (test 4 % yikw=935) BASOPHILS RELATIVE PERCENT (BEAKER) (test 0 % zbhd=105) NEUTROPHILS ABSOLUTE COUNT (BEAKER) (test 5.06 K/ L 1.78-5.38 ehsj=960) LYMPHOCYTES ABSOLUTE COUNT (BEAKER) (test 1.55 K/ L 1.32-3.57 rwne=631) MONOCYTES ABSOLUTE COUNT (BEAKER) (test 0.82 K/ L 0.30-0.82 wtxb=271) EOSINOPHILS ABSOLUTE COUNT (BEAKER) (test 0.29 K/ L 0.04-0.54 bdho=564) BASOPHILS ABSOLUTE COUNT (BEAKER) (test 0.03 K/ L 0.01-0.08 oolz=889) IMMATURE GRANULOCYTES-RELATIVE PERCENT (BEAKER) 0 % 0-1 (test jptp=1641) [id number] 06:25:00 Test Item Value Reference Range Comments MAGNESIUM (BEAKER) (test rktw=101) 2.0 mg/dL 1.6-2.6 BASIC METABOLIC [id number] 06:25:00 Test Item Value Reference Range Comments SODIUM (BEAKER) (test 141 meq/L 136-145 lclk=090) POTASSIUM (BEAKER) (test 4.3 meq/L 3.5-5.1 chch=659) CHLORIDE (BEAKER) (test 109 meq/L 98-107 godd=527) CO2 (BEAKER) (test 24 meq/L 22-29 klsv=914) BLOOD UREA NITROGEN 18 mg/dL 7-21 (BEAKER) (test soka=567) CREATININE (BEAKER) (test 1.81 mg/dL 0.57-1.25 brpz=506) GLUCOSE RANDOM (BEAKER) 110 mg/dL 70-105 (test yfdo=557) CALCIUM (BEAKER) (test 8.7 mg/dL 8.4-10.2 dztc=620) EGFR (BEAKER) (test 38 mL/min/1.73 sq m ESTIMATED GFR IS NOT rcix=6146) ACCURATE CREATININE CLEARANCE IN PREDICTING GLOMERULAR FILTRATION RATE. ESTIMATED GFR IS NOT APPLICABLE FOR DIALYSIS PATIENTS. CBC W/PLT COUNT & AUTO [id number] 05:20:00 Test Item Value Reference Range Comments WHITE BLOOD CELL COUNT (BEAKER) (test wpoh=376) 7.8 K/ L 3.5-10.5 RED BLOOD CELL COUNT (BEAKER) (test lbxn=584) 3.59 M/ L 4.63-6.08 HEMOGLOBIN (BEAKER) (test ksku=181) 10.7 GM/DL 13.7-17.5 HEMATOCRIT (BEAKER) (test rbsu=523) 32.9 % 40.1-51.0 MEAN CORPUSCULAR VOLUME (BEAKER) (test cwpt=241) 91.6 fL 79.0-92.2 MEAN CORPUSCULAR HEMOGLOBIN (BEAKER) (test 29.8 pg 25.7-32.2 dzyv=605) MEAN CORPUSCULAR HEMOGLOBIN CONC (BEAKER) (test 32.5 GM/DL 32.3-36.5 zkce=064) RED CELL DISTRIBUTION WIDTH (BEAKER) (test 14.3 % 11.6-14.4 cpas=442) PLATELET COUNT (BEAKER) (test ouxq=407) 278 K/CU MM 150-450 MEAN PLATELET VOLUME (BEAKER) (test objr=307) 9.0 fL 9.4-12.4 NUCLEATED RED BLOOD CELLS (BEAKER) (test 0 /100 WBC 0-0 qfgu=135) NEUTROPHILS RELATIVE PERCENT (BEAKER) (test 69 % ytnx=307) LYMPHOCYTES RELATIVE PERCENT (BEAKER) (test 16 % cypx=531) MONOCYTES RELATIVE PERCENT (BEAKER) (test 10 % defr=748) EOSINOPHILS RELATIVE PERCENT (BEAKER) (test 4 % hcat=382) BASOPHILS RELATIVE PERCENT (BEAKER) (test 0 % mxiy=287) NEUTROPHILS ABSOLUTE COUNT (BEAKER) (test 5.37 K/ L 1.78-5.38 ysci=786) LYMPHOCYTES ABSOLUTE COUNT (BEAKER) (test 1.25 K/ L 1.32-3.57 eysu=923) MONOCYTES ABSOLUTE COUNT (BEAKER) (test 0.77 K/ L 0.30-0.82 cefr=414) EOSINOPHILS ABSOLUTE COUNT (BEAKER) (test 0.32 K/ L 0.04-0.54 cxqk=032) BASOPHILS ABSOLUTE COUNT (BEAKER) (test 0.03 K/ L 0.01-0.08 jejl=745) IMMATURE GRANULOCYTES-RELATIVE PERCENT (BEAKER) 1 % 0-1 (test zkrw=5074) HEMOGLOBIN AND [id number] 17:07:00 Test Item Value Reference Range Comments HEMOGLOBIN (BEAKER) (test wuxq=079) 11.2 GM/DL 13.7-17.5 HEMATOCRIT (BEAKER) (test yoaw=852) 33.7 % 40.1-51.0 [id number] 12:56:00 Test Item Value Reference Range Comments MAGNESIUM (BEAKER) (test nhgf=285) 1.9 mg/dL 1.6-2.6 BASIC METABOLIC [id number] 12:56:00 Test Item Value Reference Range Comments SODIUM (BEAKER) (test 139 meq/L 136-145 trnl=799) POTASSIUM (BEAKER) (test 4.1 meq/L 3.5-5.1 aikh=444) CHLORIDE (BEAKER) (test 105 meq/L 98-107 mpey=726) CO2 (BEAKER) (test 23 meq/L 22-29 czxh=737) BLOOD UREA NITROGEN 17 mg/dL 7-21 (BEAKER) (test skji=196) CREATININE (BEAKER) (test 1.80 mg/dL 0.57-1.25 rcub=970) GLUCOSE RANDOM (BEAKER) 87 mg/dL 70-105 (test uxky=341) CALCIUM (BEAKER) (test 9.0 mg/dL 8.4-10.2 iqbi=187) EGFR (BEAKER) (test 38 mL/min/1.73 sq m ESTIMATED GFR IS NOT dian=4408) ACCURATE CREATININE CLEARANCE IN PREDICTING GLOMERULAR FILTRATION RATE. ESTIMATED GFR IS NOT APPLICABLE FOR DIALYSIS PATIENTS. CBC W/PLT COUNT & AUTO [id number] 12:40:00 Test Item Value Reference Range Comments WHITE BLOOD CELL COUNT (BEAKER) (test jkzt=969) 8.4 K/ L 3.5-10.5 RED BLOOD CELL COUNT (BEAKER) (test hvxt=314) 3.83 M/ L 4.63-6.08 HEMOGLOBIN (BEAKER) (test jtyg=960) 11.3 GM/DL 13.7-17.5 HEMATOCRIT (BEAKER) (test yuud=922) 35.6 % 40.1-51.0 MEAN CORPUSCULAR VOLUME (BEAKER) (test cgwq=243) 93.0 fL 79.0-92.2 MEAN CORPUSCULAR HEMOGLOBIN (BEAKER) (test 29.5 pg 25.7-32.2 xmqc=126) MEAN CORPUSCULAR HEMOGLOBIN CONC (BEAKER) (test 31.7 GM/DL 32.3-36.5 iboe=420) RED CELL DISTRIBUTION WIDTH (BEAKER) (test 14.6 % 11.6-14.4 aczr=661) PLATELET COUNT (BEAKER) (test aiwg=203) 302 K/CU MM 150-450 MEAN PLATELET VOLUME (BEAKER) (test qiqx=420) 8.7 fL 9.4-12.4 NUCLEATED RED BLOOD CELLS (BEAKER) (test 0 /100 WBC 0-0 hofb=572) NEUTROPHILS RELATIVE PERCENT (BEAKER) (test 71 % uopq=919) LYMPHOCYTES RELATIVE PERCENT (BEAKER) (test 17 % flov=400) MONOCYTES RELATIVE PERCENT (BEAKER) (test 8 % sukp=389) EOSINOPHILS RELATIVE PERCENT (BEAKER) (test 3 % ykdr=969) BASOPHILS RELATIVE PERCENT (BEAKER) (test 0 % nluq=614) NEUTROPHILS ABSOLUTE COUNT (BEAKER) (test 6.02 K/ L 1.78-5.38 ozns=016) LYMPHOCYTES ABSOLUTE COUNT (BEAKER) (test 1.40 K/ L 1.32-3.57 iwbv=382) MONOCYTES ABSOLUTE COUNT (BEAKER) (test 0.68 K/ L 0.30-0.82 afze=256) EOSINOPHILS ABSOLUTE COUNT (BEAKER) (test 0.27 K/ L 0.04-0.54 rnln=654) BASOPHILS ABSOLUTE COUNT (BEAKER) (test 0.03 K/ L 0.01-0.08 xfyu=969) IMMATURE GRANULOCYTES-RELATIVE PERCENT (BEAKER) 0 % 0-1 (test ryhv=0973) BASIC METABOLIC [id number] 05:19:00 Test Item Value Reference Range Comments SODIUM (BEAKER) (test 135 meq/L 136-145 wkob=164) POTASSIUM (BEAKER) (test 4.0 meq/L 3.5-5.1 dfma=032) CHLORIDE (BEAKER) (test 107 meq/L 98-107 rfsw=237) CO2 (BEAKER) (test 22 meq/L 22-29 xsgp=616) BLOOD UREA NITROGEN 17 mg/dL 7-21 (BEAKER) (test wulw=471) CREATININE (BEAKER) (test 1.98 mg/dL 0.57-1.25 wens=805) GLUCOSE RANDOM (BEAKER) 125 mg/dL 70-105 (test dqll=315) CALCIUM (BEAKER) (test 8.2 mg/dL 8.4-10.2 widh=766) EGFR (BEAKER) (test 34 mL/min/1.73 sq m ESTIMATED GFR IS NOT xzqe=4898) ACCURATE CREATININE CLEARANCE IN PREDICTING GLOMERULAR FILTRATION RATE. ESTIMATED GFR IS NOT APPLICABLE FOR DIALYSIS PATIENTS. BASIC METABOLIC [id number] 07:26:00 Test Item Value Reference Range Comments SODIUM (BEAKER) (test 133 meq/L 136-145 vxis=311) POTASSIUM (BEAKER) (test 4.0 meq/L 3.5-5.1 kjiv=561) CHLORIDE (BEAKER) (test 102 meq/L 98-107 hsme=701) CO2 (BEAKER) (test 24 meq/L 22-29 ijnn=982) BLOOD UREA NITROGEN 13 mg/dL 7-21 (BEAKER) (test mytw=511) CREATININE (BEAKER) (test 2.04 mg/dL 0.57-1.25 svzz=706) GLUCOSE RANDOM (BEAKER) 120 mg/dL 70-105 (test coww=665) CALCIUM (BEAKER) (test 8.3 mg/dL 8.4-10.2 efzy=386) EGFR (BEAKER) (test 33 mL/min/1.73 sq m ESTIMATED GFR IS NOT txhs=5867) ACCURATE CREATININE CLEARANCE IN PREDICTING GLOMERULAR FILTRATION RATE. ESTIMATED GFR IS NOT APPLICABLE FOR DIALYSIS PATIENTS. CBC W/PLT COUNT & AUTO [id number] 06:36:00 Test Item Value Reference Range Comments WHITE BLOOD CELL COUNT (BEAKER) (test jyzn=660) 9.7 K/ L 3.5-10.5 RED BLOOD CELL COUNT (BEAKER) (test hpgy=944) 3.65 M/ L 4.63-6.08 HEMOGLOBIN (BEAKER) (test vsve=800) 11.2 GM/DL 13.7-17.5 HEMATOCRIT (BEAKER) (test zycr=593) 33.7 % 40.1-51.0 MEAN CORPUSCULAR VOLUME (BEAKER) (test jgts=867) 92.3 fL 79.0-92.2 MEAN CORPUSCULAR HEMOGLOBIN (BEAKER) (test 30.7 pg 25.7-32.2 akef=739) MEAN CORPUSCULAR HEMOGLOBIN CONC (BEAKER) (test 33.2 GM/DL 32.3-36.5 luns=655) RED CELL DISTRIBUTION WIDTH (BEAKER) (test 14.4 % 11.6-14.4 gjxr=428) PLATELET COUNT (BEAKER) (test ovzc=423) 214 K/CU MM 150-450 MEAN PLATELET VOLUME (BEAKER) (test ksuw=364) 8.8 fL 9.4-12.4 NUCLEATED RED BLOOD CELLS (BEAKER) (test 0 /100 WBC 0-0 rzoh=268) NEUTROPHILS RELATIVE PERCENT (BEAKER) (test 78 % alcq=976) LYMPHOCYTES RELATIVE PERCENT (BEAKER) (test 11 % krlk=761) MONOCYTES RELATIVE PERCENT (BEAKER) (test 9 % ridm=485) EOSINOPHILS RELATIVE PERCENT (BEAKER) (test 1 % mrfh=236) BASOPHILS RELATIVE PERCENT (BEAKER) (test 1 % gwiz=899) NEUTROPHILS ABSOLUTE COUNT (BEAKER) (test 7.51 K/ L 1.78-5.38 jkeb=973) LYMPHOCYTES ABSOLUTE COUNT (BEAKER) (test 1.09 K/ L 1.32-3.57 xxnw=870) MONOCYTES ABSOLUTE COUNT (BEAKER) (test 0.83 K/ L 0.30-0.82 ghit=927) EOSINOPHILS ABSOLUTE COUNT (BEAKER) (test 0.14 K/ L 0.04-0.54 urxa=492) BASOPHILS ABSOLUTE COUNT (BEAKER) (test 0.05 K/ L 0.01-0.08 pthf=031) IMMATURE GRANULOCYTES-RELATIVE PERCENT (BEAKER) 1 % 0-1 (test pdba=9275) LIPID [id number] 07:15:00 Test Item Value Reference Range Comments TRIGLYCERIDES (BEAKER) (test plma=375) 65 mg/dL CHOLESTEROL (BEAKER) (test okdz=494) 129 mg/dL HDL CHOLESTEROL (BEAKER) (test pnvh=347) 30 mg/dL LDL CHOLESTEROL CALCULATED (BEAKER) (test 86 mg/dL svds=511) Triglyceride Reference Range: Low Risk <150 Borderline 150- 199 High Risk 200-499 Very High Risk >=500Cholesterol Reference Range: Low Risk <200 Borderline 200-239 High Risk > 240HDL Cholesterol Reference Range: Low Risk >=60 High Risk <40LDL Cholesterol Reference Range: Optimal <100 Near Optimal 100-129 Borderline 130-159 High 160-189 Very High >=190BASIC METABOLIC [id number] 07:15:00 Test Item Value Reference Range Comments SODIUM (BEAKER) (test 138 meq/L 136-145 vkzk=547) POTASSIUM (BEAKER) (test 4.3 meq/L 3.5-5.1 iqai=526) CHLORIDE (BEAKER) (test 108 meq/L 98-107 ikoh=386) CO2 (BEAKER) (test 24 meq/L 22-29 rjex=504) BLOOD UREA NITROGEN 13 mg/dL 7-21 (BEAKER) (test czlj=563) CREATININE (BEAKER) (test 1.86 mg/dL 0.57-1.25 fqwy=319) GLUCOSE RANDOM (BEAKER) 90 mg/dL 70-105 (test jjwj=823) CALCIUM (BEAKER) (test 8.8 mg/dL 8.4-10.2 juqg=884) EGFR (BEAKER) (test 37 mL/min/1.73 sq m ESTIMATED GFR IS NOT dgqw=9168) ACCURATE CREATININE CLEARANCE IN PREDICTING GLOMERULAR FILTRATION RATE. ESTIMATED GFR IS NOT APPLICABLE FOR DIALYSIS PATIENTS. CBC W/PLT COUNT & AUTO [id number] 06:52:00 Test Item Value Reference Range Comments WHITE BLOOD CELL COUNT (BEAKER) (test yxlp=138) 8.3 K/ L 3.5-10.5 RED BLOOD CELL COUNT (BEAKER) (test omlv=613) 3.89 M/ L 4.63-6.08 HEMOGLOBIN (BEAKER) (test issb=619) 11.8 GM/DL 13.7-17.5 HEMATOCRIT (BEAKER) (test zlvj=696) 36.2 % 40.1-51.0 MEAN CORPUSCULAR VOLUME (BEAKER) (test btle=773) 93.1 fL 79.0-92.2 MEAN CORPUSCULAR HEMOGLOBIN (BEAKER) (test 30.3 pg 25.7-32.2 dhee=738) MEAN CORPUSCULAR HEMOGLOBIN CONC (BEAKER) (test 32.6 GM/DL 32.3-36.5 ammt=835) RED CELL DISTRIBUTION WIDTH (BEAKER) (test 14.6 % 11.6-14.4 smri=923) PLATELET COUNT (BEAKER) (test jgtj=389) 272 K/CU MM 150-450 MEAN PLATELET VOLUME (BEAKER) (test fjtm=875) 9.0 fL 9.4-12.4 NUCLEATED RED BLOOD CELLS (BEAKER) (test 0 /100 WBC 0-0 mzpf=578) NEUTROPHILS RELATIVE PERCENT (BEAKER) (test 57 % kqpi=469) LYMPHOCYTES RELATIVE PERCENT (BEAKER) (test 28 % bgho=823) MONOCYTES RELATIVE PERCENT (BEAKER) (test 10 % xmjn=806) EOSINOPHILS RELATIVE PERCENT (BEAKER) (test 5 % pfis=123) BASOPHILS RELATIVE PERCENT (BEAKER) (test 1 % nvra=068) NEUTROPHILS ABSOLUTE COUNT (BEAKER) (test 4.70 K/ L 1.78-5.38 dobo=250) LYMPHOCYTES ABSOLUTE COUNT (BEAKER) (test 2.31 K/ L 1.32-3.57 mywx=360) MONOCYTES ABSOLUTE COUNT (BEAKER) (test 0.83 K/ L 0.30-0.82 fgcp=958) EOSINOPHILS ABSOLUTE COUNT (BEAKER) (test 0.37 K/ L 0.04-0.54 redw=179) BASOPHILS ABSOLUTE COUNT (BEAKER) (test 0.07 K/ L 0.01-0.08 dobd=570) IMMATURE GRANULOCYTES-RELATIVE PERCENT (BEAKER) 0 % 0-1 (test smnb=7843) RAD, CHEST, 1 VIEW, NON [id number] 23:59:00Reason for exam:->pre opShould this be performed [...] MDReport Verified Date/Time: 05/17/2018 23:59:18 Reading Location: [address] Consult Reading Room 11 :59 [id number] 18:50:00 Test Item Value Reference Range Comments PROTIME (BEAKER) (test uclr=825) 13.0 seconds 11.7-14.7 INR (BEAKER) (test ntqc=268) 1.0 <=5.9 PARTIAL THROMBOPLASTIN TIME (BEAKER) (test 30.3 seconds 22.5-36.0 oycy=192) RECOMMENDED COUMADIN/WARFARIN INR THERAPY RANGESSTANDARD DOSE: 2.0 - 3.0 Includes: PROPHYLAXIS forvenous thrombosis, systemic embolization; TREATMENT for venous thrombosis and/or pulmonary embolus.HIGH RISK: Target INR is 2.5-3.5 for patients with mechanical heart valves.PROTHROMBIN [id number] 18:49: 00 Test Item Value Reference Range Comments PROTIME (BEAKER) (test orkb=719) 13.0 seconds 11.7-14.7 INR (BEAKER) (test fqcr=052) 1.0 <=5.9 RECOMMENDED COUMADIN/WARFARIN INR THERAPY RANGESSTANDARD DOSE: 2.0 - 3.0 Includes: PROPHYLAXIS forvenous thrombosis, systemic embolization; TREATMENT for venous thrombosis and/or pulmonary embolus.HIGH RISK: Target INR is 2.5-3.5 for patients with mechanical heart valves.[id number] 18:40:00 Test Item Value Reference Range Comments PHOSPHORUS (BEAKER) (test audj=569) 3.0 mg/dL 2.3-4.7 [id number] 18:40:00 Test Item Value Reference Range Comments MAGNESIUM (BEAKER) (test gldm=583) 2.1 mg/dL 1.6-2.6 BASIC METABOLIC [id number] 18:40:00 Test Item Value Reference Range Comments SODIUM (BEAKER) (test 137 meq/L 136-145 bhut=876) POTASSIUM (BEAKER) (test 4.5 meq/L 3.5-5.1 dujd=399) CHLORIDE (BEAKER) (test 105 meq/L 98-107 lobx=208) CO2 (BEAKER) (test 23 meq/L 22-29 kgtb=944) BLOOD UREA NITROGEN 13 mg/dL 7-21 (BEAKER) (test ivhr=470) CREATININE (BEAKER) (test 1.81 mg/dL 0.57-1.25 nsnu=664) GLUCOSE RANDOM (BEAKER) 87 mg/dL 70-105 (test almh=930) CALCIUM (BEAKER) (test 9.3 mg/dL 8.4-10.2 udls=888) EGFR (BEAKER) (test 38 mL/min/1.73 sq m ESTIMATED GFR IS NOT cxru=3289) ACCURATE CREATININE CLEARANCE IN PREDICTING GLOMERULAR FILTRATION RATE. ESTIMATED GFR IS NOT APPLICABLE FOR DIALYSIS PATIENTS. HEPATIC FUNCTION [id number] 18:40:00 Test Item Value Reference Range Comments TOTAL PROTEIN (BEAKER) (test scto=836) 7.1 gm/dL 6.0-8.3 ALBUMIN (BEAKER) (test grso=7525) 3.9 g/dL 3.5-5.0 BILIRUBIN TOTAL (BEAKER) (test dpaj=817) 0.3 mg/dL 0.2-1.2 BILIRUBIN DIRECT (BEAKER) (test wapy=232) 0.1 mg/dL 0.1-0.5 ALKALINE PHOSPHATASE (BEAKER) (test vzgn=782) 93 U/L 40-150 AST (SGOT) (BEAKER) (test mkrj=475) 16 U/L 5-34 ALT (SGPT) (BEAKER) (test znkw=122) 11 U/L 6-55 CBC W/PLT COUNT & AUTO [id number] 18:25:00 Test Item Value Reference Range Comments WHITE BLOOD CELL COUNT (BEAKER) (test indr=208) 10.6 K/ L 3.5-10.5 RED BLOOD CELL COUNT (BEAKER) (test jqpu=874) 4.59 M/ L 4.63-6.08 HEMOGLOBIN (BEAKER) (test swlv=512) 13.8 GM/DL 13.7-17.5 HEMATOCRIT (BEAKER) (test njbr=337) 42.3 % 40.1-51.0 MEAN CORPUSCULAR VOLUME (BEAKER) (test aqac=785) 92.2 fL 79.0-92.2 MEAN CORPUSCULAR HEMOGLOBIN (BEAKER) (test 30.1 pg 25.7-32.2 wdgs=145) MEAN CORPUSCULAR HEMOGLOBIN CONC (BEAKER) (test 32.6 GM/DL 32.3-36.5 efsg=868) RED CELL DISTRIBUTION WIDTH (BEAKER) (test 14.7 % 11.6-14.4 agfo=238) PLATELET COUNT (BEAKER) (test xnrr=466) 313 K/CU MM 150-450 MEAN PLATELET VOLUME (BEAKER) (test qoic=676) 8.8 fL 9.4-12.4 NUCLEATED RED BLOOD CELLS (BEAKER) (test 0 /100 WBC 0-0 dccd=162) NEUTROPHILS RELATIVE PERCENT (BEAKER) (test 74 % npfb=544) LYMPHOCYTES RELATIVE PERCENT (BEAKER) (test 16 % bgii=408) MONOCYTES RELATIVE PERCENT (BEAKER) (test 7 % zxvw=597) EOSINOPHILS RELATIVE PERCENT (BEAKER) (test 2 % oejo=740) BASOPHILS RELATIVE PERCENT (BEAKER) (test 1 % jcrj=256) NEUTROPHILS ABSOLUTE COUNT (BEAKER) (test 7.87 K/ L 1.78-5.38 bvsj=048) LYMPHOCYTES ABSOLUTE COUNT (BEAKER) (test 1.70 K/ L 1.32-3.57 flmz=161) MONOCYTES ABSOLUTE COUNT (BEAKER) (test 0.79 K/ L 0.30-0.82 yjxd=623) EOSINOPHILS ABSOLUTE COUNT (BEAKER) (test 0.20 K/ L 0.04-0.54 gozp=631) BASOPHILS ABSOLUTE COUNT (BEAKER) (test 0.05 K/ L 0.01-0.08 ejbn=460) IMMATURE GRANULOCYTES-RELATIVE PERCENT (BEAKER) 0 % 0-1 (test bkej=2050) TISSUE [id number] 14:40:00Surgical Pathology Report Case: [id number] Authorizing Provider: Fadi Philippe MD Collected: 02/06/2018 3903 Ordering Location: [address] Received: 02/07/2018 8048 Service Pathologist: Yuridia Mercer MD Specimens: A) - Polyp, Colon - Right/Ascending, taken via hot snare B) -Mass, Bx of Rectal mass via forcep The addendum is issued to report the results of molecular tests performed at [facility]. RESULTS: - There is a mutationin the [...] developed and its performance characteristics determined by [facility], Pathology Laboratory. It has not been cleared [...] complexity clinical laboratory testing. Added CPT codes: 89749, 72830 x3 This email and attachments contain information [...] TYPE, ULCERATEDCC/pl Signing Pathologist Direct Phone Line: [phone] by Yuridia Mercer MD on 02/08 at 10:08 [id number]. Right ascending colon polyp; B. Rectal mass [...] reactive changes are also present.CT, LIMITED/ LOCALIZED [id number] 08:10:00Request liver biopsy Reason for exam:-> liver mass, need biopsy Should this be performed at the bedside?->NoAddendum BeginsREPORT STATUS:A This exam was performed according to our departmental dose optimization program which includes automated exposure control, adjustment of the mA and/or kV according to patient size and/or use of iterative reconstructive technique. Signed: Tung Wise MDReport Verified Date/ Time: 02/27/2018 08:10:53 Reading Location: [facility] Diagnostic Imaging Reading Room - [place] [address]Addendum EndsFINAL REPORT History: Liver masses COMPARISON: CT dated 02/09/2018 and an ultrasound dated 02/13/2018 DISCUSSION: The hepatic lesions were unable to be previously seen under ultrasound and therefore, the patient was sent to CT for potential biopsy under CT guidance. A striper image was obtained prior to the biopsy procedure. The previously seen nodular foci within the liver are not well delineated on the striper images. Some poorly seen hypodense foci are [...] Verified Date/Time: 02/14/2018 16: 38:16 Reading Location: [facility] C013Y CT Body ReadingRoom FINE NEEDLE ASPIRATION BY [id number] 14:34:00Medical Cytology Report Case: [id number] Authorizing Provider: Fadi Philippe MD Collected: 02/15/2018 1103 Ordering Location: [address] Received: 02/16/2018 0959 Service Pathologist: Yas Townsend Specimen: Liver, Liver mass FNA in CRR for cytology LIVER MASS FNA BYCLINICIAN ( CYTOSPINS AND CELL BLOCK OF ASPIRATE): - POSITIVE FOR MALIGNANCY, MORPHOLOGICALLY COMPATIBLE WITH RECTAL CARCINOMA PRIMARY Signing Pathologist Direct Phone Line: [phone] signed by Yas Townsend on 02/17/2018 at 2:34 PMCytospins show clusters of benign appearing hepatocytes. The cell block show predominantly hepatic parenchyma with a focal attached area ofatypical glands with hyperchromatic and pleomorphic nuclei. The previous case, [id number] is reviewed and shows similar features.Intradepartmental Consultation: Noy Bailey MD has reviewed the case andagrees with the findings.99949, 98718(1.3 x 0.9 cm) round mass in the left lobe of the liver, recently diagnosed with rectal cancer(see [id number])LIVER MASS FNA27 mls in cytorich red; 4 cytospins, cellblockCollected: [id number] : [id number], [facility] of [facility]ology, [address] [place] [address], [place] [address], [address] [place] [address], Department of Pathology, [address] [place] [address], [place] [address], Tel PRK, TUNNEL CATH CENTRAL INS W/PORT [id number] 18:32:00Reason for exam:-&gt ;chemotherapyFINAL REPORT Right internal jugular chest port insertion History: Patient requires access for chemotherapy. Modality: Sonography and fluoroscopy. Sedation: Versed 1.5 mg and fentanyl 75 mcg given intravenously forconscious sedation. Vital signs were monitored throughout the procedure by a nurse, and remained stable. Physician intra-service time was 25 minutes. Wicker Molded Candles: Peña Zepeda MDAssistant: Jose Martin. Approach: Right [...] needle into the right atrium. A 4 Setswana micropuncture sheath was placed. A subcutaneous tunnel [...] MDReport Verified Date/Time: 02/16/2018 18:32:11 Reading Location: [place] [address] Angio Body Reading Room TISSUE [id number] 15:01: 00Surgical Pathology Report Case: [id number] Authorizing Provider: Fadi Philippe MD Collected : 02/15/2018 1055 Ordering Location: [address] Received: 02/15/2018 1604 Service Pathologist: Timothy Mendoza MD Specimen: Liver, Liver Mass LIVER MASS, ULTRASOUND-GUIDED CORE NEEDLE BIOPSY: - FRAGMENTED CORES OF BENIGN LIVER PARENCHYMA - MINIMAL STEATOSIS (LESS THAN 1% ) - MINIMAL PERIPORTAL FIBROSIS - NEGATIVE FOR MALIGNANCY (SEE COMMENT) Signing Pathologist Direct Phone Line: [phone] signed by Timothy Mendoza MD on 02/16/2018 at 3:01 PMClinical and radiographic correlation is recommended to determine if this represents the lesion.45838, 47317 x 2Rectal cancerLiver massThe specimen is received [...] report above: trichrome, reticulin.FINE NEEDLE ASPIRATE (FNA) [id number] 11:00:00 Test Item Value Reference Range Comments CYTOLOGY RESULT POINTER (BEAKER) (test See Separate Report fmqq=9642) BASIC METABOLIC [id number] 06:09:00 Test Item Value Reference Range Comments SODIUM (BEAKER) (test 141 meq/L 136-145 cvbd=867) POTASSIUM (BEAKER) (test 4.0 meq/L 3.5-5.1 vrpg=283) CHLORIDE (BEAKER) (test 112 meq/L 98-107 fira=856) CO2 (BEAKER) (test 23 meq/L 22-29 ghef=968) BLOOD UREA NITROGEN 14 mg/dL 7-21 (BEAKER) (test hhpi=303) CREATININE (BEAKER) (test 1.57 mg/dL 0.57-1.25 qduw=255) GLUCOSE RANDOM (BEAKER) 109 mg/dL 70-105 (test visz=914) CALCIUM (BEAKER) (test 8.3 mg/dL 8.4-10.2 jbei=180) EGFR (BEAKER) (test 45 mL/min/1.73 sq m ESTIMATED GFR IS NOT ljkr=6674) ACCURATE CREATININE CLEARANCE IN PREDICTING GLOMERULAR FILTRATION RATE. ESTIMATED GFR IS NOT APPLICABLE FOR DIALYSIS PATIENTS. CBC (HEMOGRAM ONLY)2018-02-16 05:41:00 Test Item Value Reference Range Comments WHITE BLOOD CELL COUNT (BEAKER) (test trml=966) 6.6 K/ L 3.5-10.5 RED BLOOD CELL COUNT (BEAKER) (test ybyx=848) 2.98 M/ L 4.63-6.08 HEMOGLOBIN (BEAKER) (test nlaq=403) 8.9 GM/DL 13.7-17.5 HEMATOCRIT (BEAKER) (test eknc=413) 28.6 % 40.1-51.0 MEAN CORPUSCULAR VOLUME (BEAKER) (test kpfh=362) 96.0 fL 79.0-92.2 MEAN CORPUSCULAR HEMOGLOBIN (BEAKER) (test 29.9 pg 25.7-32.2 guzo=941) MEAN CORPUSCULAR HEMOGLOBIN CONC (BEAKER) (test 31.1 GM/DL 32.3-36.5 vedf=478) RED CELL DISTRIBUTION WIDTH (BEAKER) (test 14.7 % 11.6-14.4 ghea=799) PLATELET COUNT (BEAKER) (test jqlp=947) 206 K/CU MM 150-450 MEAN PLATELET VOLUME (BEAKER) (test gqxm=773) 8.9 fL 9.4-12.4 NUCLEATED RED BLOOD CELLS (BEAKER) (test 0 /100 WBC 0-0 feuy=081) BASIC METABOLIC [id number] 05:52:00 Test Item Value Reference Range Comments SODIUM (BEAKER) (test 141 meq/L 136-145 qsuw=318) POTASSIUM (BEAKER) (test 4.1 meq/L 3.5-5.1 cqsb=680) CHLORIDE (BEAKER) (test 110 meq/L 98-107 qaea=978) CO2 (BEAKER) (test 25 meq/L 22-29 maca=825) BLOOD UREA NITROGEN 14 mg/dL 7-21 (BEAKER) (test ckjo=649) CREATININE (BEAKER) (test 1.82 mg/dL 0.57-1.25 fcoh=958) GLUCOSE RANDOM (BEAKER) 118 mg/dL 70-105 (test anrh=631) CALCIUM (BEAKER) (test 8.5 mg/dL 8.4-10.2 tqaz=259) EGFR (BEAKER) (test 38 mL/min/1.73 sq m ESTIMATED GFR IS NOT hubj=5155) ACCURATE CREATININE CLEARANCE IN PREDICTING GLOMERULAR FILTRATION RATE. ESTIMATED GFR IS NOT APPLICABLE FOR DIALYSIS PATIENTS. CBC (HEMOGRAM ONLY)2018-02-15 05:12:00 Test Item Value Reference Range Comments WHITE BLOOD CELL COUNT (BEAKER) (test evuf=930) 7.2 K/ L 3.5-10.5 RED BLOOD CELL COUNT (BEAKER) (test rtek=032) 2.94 M/ L 4.63-6.08 HEMOGLOBIN (BEAKER) (test bajw=452) 8.7 GM/DL 13.7-17.5 HEMATOCRIT (BEAKER) (test rhpz=324) 28.2 % 40.1-51.0 MEAN CORPUSCULAR VOLUME (BEAKER) (test fwqp=840) 95.9 fL 79.0-92.2 MEAN CORPUSCULAR HEMOGLOBIN (BEAKER) (test 29.6 pg 25.7-32.2 nnih=243) MEAN CORPUSCULAR HEMOGLOBIN CONC (BEAKER) (test 30.9 GM/DL 32.3-36.5 yyrd=024) RED CELL DISTRIBUTION WIDTH (BEAKER) (test 14.8 % 11.6-14.4 mdlj=726) PLATELET COUNT (BEAKER) (test uqic=573) 227 K/CU MM 150-450 MEAN PLATELET VOLUME (BEAKER) (test dlny=046) 9.2 fL 9.4-12.4 NUCLEATED RED BLOOD CELLS (BEAKER) (test 0 /100 WBC 0-0 vsxw=363) U/S, ABDOMINAL, [id number] 07:47:00Reason for exam:->liver massFINAL REPORT Ultrasound of abdomen, limited INDICATION: Liver mass COMPARISON: CT dated February 09, 2018 FINDINGS: Sonographic evaluation of the liver is performed in preparationfor biopsy of liver lesion seen on recent CT. However, no focal lesion is identified on ultrasound and biopsy was not performed. Signed: Joanne Diaz Verified Date/Time: 02/14/2018 07:47:16 Reading Location: [facility] Radiology Reading Room Electronically signed by: JOANNE DIAZ M.D. on02/14/2018 07:47 AMBASIC METABOLIC [id number] 06:19:00 Test Item Value Reference Range Comments SODIUM (BEAKER) (test 140 meq/L 136-145 sfoo=342) POTASSIUM (BEAKER) (test 3.9 meq/L 3.5-5.1 afut=282) CHLORIDE (BEAKER) (test 110 meq/L 98-107 bkhv=146) CO2 (BEAKER) (test 24 meq/L 22-29 ynvp=578) BLOOD UREA NITROGEN 15 mg/dL 7-21 (BEAKER) (test sglx=009) CREATININE (BEAKER) (test 1.61 mg/dL 0.57-1.25 hudd=162) GLUCOSE RANDOM (BEAKER) 105 mg/dL 70-105 (test mmqa=700) CALCIUM (BEAKER) (test 8.2 mg/dL 8.4-10.2 nlde=194) EGFR (BEAKER) (test 44 mL/min/1.73 sq m ESTIMATED GFR IS NOT btvy=6872) ACCURATE CREATININE CLEARANCE IN PREDICTING GLOMERULAR FILTRATION RATE. ESTIMATED GFR IS NOT APPLICABLE FOR DIALYSIS PATIENTS. CBC (HEMOGRAM ONLY)2018-02-14 05:42:00 Test Item Value Reference Range Comments WHITE BLOOD CELL COUNT (BEAKER) (test lhvh=871) 7.6 K/ L 3.5-10.5 RED BLOOD CELL COUNT (BEAKER) (test fqaw=141) 2.83 M/ L 4.63-6.08 HEMOGLOBIN (BEAKER) (test hoda=627) 8.3 GM/DL 13.7-17.5 HEMATOCRIT (BEAKER) (test ljwt=529) 26.9 % 40.1-51.0 MEAN CORPUSCULAR VOLUME (BEAKER) (test qtnz=929) 95.1 fL 79.0-92.2 MEAN CORPUSCULAR HEMOGLOBIN (BEAKER) (test 29.3 pg 25.7-32.2 liit=529) MEAN CORPUSCULAR HEMOGLOBIN CONC (BEAKER) (test 30.9 GM/DL 32.3-36.5 cmjl=167) RED CELL DISTRIBUTION WIDTH (BEAKER) (test 14.6 % 11.6-14.4 saoz=748) PLATELET COUNT (BEAKER) (test bkyb=171) 252 K/CU MM 150-450 MEAN PLATELET VOLUME (BEAKER) (test elnk=780) 9.2 fL 9.4-12.4 NUCLEATED RED BLOOD CELLS (BEAKER) (test 0 /100 WBC 0-0 vdad=144) PROTEIN ELECTROPHORESIS, [id number] 14:00:00 Test Item Value Reference Range Comments ALBUMIN FRACTION (BEAKER) 2.6 g/dL 3.5-5.5 (test svrg=626) ALPHA 1 FRACTION (BEAKER) 0.2 g/dL 0.2-0.4 (test vbjr=293) ALPHA 2 FRACTION (BEAKER) 0.6 g/dL 0.5-0.9 (test bmad=373) BETA FRACTION (BEAKER) (test 0.9 g/dL 0.6-1.1 lxlb=840) GAMMA GLOBULIN FRACTION 0.7 g/dL 0.7-1.7 (BEAKER) (test bufr=141) INTERPRETATION-119 (BEAKER) Decreased albumin, suggestive of (test svza=1848) protein loss. Pattern otherwise consistent with mild acute inflammatory response. No monoclonal bands detected. [id number] Lilly Harris MD (BEAKER) (test elht=6097) (electronic signature) PROTEIN TOTAL SERUM, SPEP 5.0 gm/dL 6.0-8.3 (BEAKER) (test hkbz=1643) BASIC METABOLIC [id number] 05:12:00 Test Item Value Reference Range Comments SODIUM (BEAKER) (test 140 meq/L 136-145 rmvs=571) POTASSIUM (BEAKER) (test 3.8 meq/L 3.5-5.1 lgmy=892) CHLORIDE (BEAKER) (test 111 meq/L 98-107 bqlv=107) CO2 (BEAKER) (test 24 meq/L 22-29 ajgi=414) BLOOD UREA NITROGEN 14 mg/dL 7-21 (BEAKER) (test alni=054) CREATININE (BEAKER) (test 1.56 mg/dL 0.57-1.25 fshd=962) GLUCOSE RANDOM (BEAKER) 104 mg/dL 70-105 (test yuzr=353) CALCIUM (BEAKER) (test 8.2 mg/dL 8.4-10.2 udqm=750) EGFR (BEAKER) (test 45 mL/min/1.73 sq m ESTIMATED GFR IS NOT zggc=5568) ACCURATE CREATININE CLEARANCE IN PREDICTING GLOMERULAR FILTRATION RATE. ESTIMATED GFR IS NOT APPLICABLE FOR DIALYSIS PATIENTS. PT/[id number] 04:59:00 Test Item Value Reference Range Comments PROTIME (BEAKER) (test lxye=268) 14.5 seconds 11.7-14.7 INR (BEAKER) (test frcr=065) 1.1 <=5.9 PARTIAL THROMBOPLASTIN TIME (BEAKER) (test 37.1 seconds 22.5-36.0 kvka=709) RECOMMENDED COUMADIN/WARFARIN INR THERAPY RANGESSTANDARD DOSE: 2.0 - 3.0 Includes: PROPHYLAXIS forvenous thrombosis, systemic embolization; TREATMENT for venous thrombosis and/or pulmonary embolus.HIGH RISK: Target INR is 2.5-3.5 for patients with mechanical heart valves.CBC (HEMOGRAM ONLY)2018-02-13 04:49:00 Test Item Value Reference Range Comments WHITE BLOOD CELL COUNT (BEAKER) (test oghh=340) 8.9 K/ L 3.5-10.5 RED BLOOD CELL COUNT (BEAKER) (test zxlz=507) 2.95 M/ L 4.63-6.08 HEMOGLOBIN (BEAKER) (test aobg=320) 8.7 GM/DL 13.7-17.5 HEMATOCRIT (BEAKER) (test ucko=796) 27.9 % 40.1-51.0 MEAN CORPUSCULAR VOLUME (BEAKER) (test umtp=779) 94.6 fL 79.0-92.2 MEAN CORPUSCULAR HEMOGLOBIN (BEAKER) (test 29.5 pg 25.7-32.2 cnev=839) MEAN CORPUSCULAR HEMOGLOBIN CONC (BEAKER) (test 31.2 GM/DL 32.3-36.5 xrom=235) RED CELL DISTRIBUTION WIDTH (BEAKER) (test 14.5 % 11.6-14.4 ozau=027) PLATELET COUNT (BEAKER) (test faiq=438) 264 K/CU MM 150-450 MEAN PLATELET VOLUME (BEAKER) (test chmb=599) 9.1 fL 9.4-12.4 NUCLEATED RED BLOOD CELLS (BEAKER) (test 0 /100 WBC 0-0 xgqs=677) BASIC METABOLIC [id number] 06:13:00 Test Item Value Reference Range Comments SODIUM (BEAKER) (test 140 meq/L 136-145 elaf=034) POTASSIUM (BEAKER) (test 3.9 meq/L 3.5-5.1 gflp=573) CHLORIDE (BEAKER) (test 111 meq/L 98-107 mcsy=563) CO2 (BEAKER) (test 23 meq/L 22-29 vcrj=462) BLOOD UREA NITROGEN 12 mg/dL 7-21 (BEAKER) (test jofm=278) CREATININE (BEAKER) (test 1.50 mg/dL 0.57-1.25 luoj=581) GLUCOSE RANDOM (BEAKER) 100 mg/dL 70-105 (test dbzx=836) CALCIUM (BEAKER) (test 8.0 mg/dL 8.4-10.2 adax=592) EGFR (BEAKER) (test 47 mL/min/1.73 sq m ESTIMATED GFR IS NOT tefy=9331) ACCURATE CREATININE CLEARANCE IN PREDICTING GLOMERULAR FILTRATION RATE. ESTIMATED GFR IS NOT APPLICABLE FOR DIALYSIS PATIENTS. CBC (HEMOGRAM ONLY)2018-02-12 05:35:00 Test Item Value Reference Range Comments WHITE BLOOD CELL COUNT (BEAKER) (test tlrq=904) 9.1 K/ L 3.5-10.5 RED BLOOD CELL COUNT (BEAKER) (test efzu=290) 2.89 M/ L 4.63-6.08 HEMOGLOBIN (BEAKER) (test zuyc=643) 8.5 GM/DL 13.7-17.5 HEMATOCRIT (BEAKER) (test oawj=597) 27.2 % 40.1-51.0 MEAN CORPUSCULAR VOLUME (BEAKER) (test otvt=629) 94.1 fL 79.0-92.2 MEAN CORPUSCULAR HEMOGLOBIN (BEAKER) (test 29.4 pg 25.7-32.2 oakd=354) MEAN CORPUSCULAR HEMOGLOBIN CONC (BEAKER) (test 31.3 GM/DL 32.3-36.5 lvdl=391) RED CELL DISTRIBUTION WIDTH (BEAKER) (test 14.2 % 11.6-14.4 xfho=558) PLATELET COUNT (BEAKER) (test horz=985) 295 K/CU MM 150-450 MEAN PLATELET VOLUME (BEAKER) (test hhit=529) 9.1 fL 9.4-12.4 NUCLEATED RED BLOOD CELLS (BEAKER) (test 0 /100 WBC 0-0 bgur=855) BASIC METABOLIC [id number] 06:06:00 Test Item Value Reference Range Comments SODIUM (BEAKER) (test 143 meq/L 136-145 wjle=271) POTASSIUM (BEAKER) (test 3.9 meq/L 3.5-5.1 orgk=558) CHLORIDE (BEAKER) (test 113 meq/L 98-107 xkfk=996) CO2 (BEAKER) (test 25 meq/L 22-29 pygv=321) BLOOD UREA NITROGEN 12 mg/dL 7-21 (BEAKER) (test btml=168) CREATININE (BEAKER) (test 1.79 mg/dL 0.57-1.25 evwx=590) GLUCOSE RANDOM (BEAKER) 109 mg/dL 70-105 (test utnm=134) CALCIUM (BEAKER) (test 8.0 mg/dL 8.4-10.2 pfez=826) EGFR (BEAKER) (test 39 mL/min/1.73 sq m ESTIMATED GFR IS NOT rtjk=6309) ACCURATE CREATININE CLEARANCE IN PREDICTING GLOMERULAR FILTRATION RATE. ESTIMATED GFR IS NOT APPLICABLE FOR DIALYSIS PATIENTS. CBC (HEMOGRAM ONLY)2018-02-11 05:09:00 Test Item Value Reference Range Comments WHITE BLOOD CELL COUNT (BEAKER) (test yuvs=361) 6.3 K/ L 3.5-10.5 RED BLOOD CELL COUNT (BEAKER) (test yuar=161) 2.75 M/ L 4.63-6.08 HEMOGLOBIN (BEAKER) (test mvrl=358) 8.1 GM/DL 13.7-17.5 HEMATOCRIT (BEAKER) (test kdra=081) 25.8 % 40.1-51.0 MEAN CORPUSCULAR VOLUME (BEAKER) (test vucx=594) 93.8 fL 79.0-92.2 MEAN CORPUSCULAR HEMOGLOBIN (BEAKER) (test 29.5 pg 25.7-32.2 rhpr=255) MEAN CORPUSCULAR HEMOGLOBIN CONC (BEAKER) (test 31.4 GM/DL 32.3-36.5 uiga=176) RED CELL DISTRIBUTION WIDTH (BEAKER) (test 14.4 % 11.6-14.4 uukz=318) PLATELET COUNT (BEAKER) (test hajm=300) 301 K/CU MM 150-450 MEAN PLATELET VOLUME (BEAKER) (test gmon=612) 8.9 fL 9.4-12.4 NUCLEATED RED BLOOD CELLS (BEAKER) (test 0 /100 WBC 0-0 ikrs=003) [id number] 18:24:00 Test Item Value Reference Range Comments FERRITIN (BEAKER) (test fzph=680) 36 ng/mL 5-275 VITAMIN D, [id number] 10:53:00 Test Item Value Reference Range Comments VITAMIN D 25-OH (BEAKER) (test jknq=8536) 10.7 ng/mL 6.6-49.9 Effective 02/02/2017: Reference Range ChangeNew: 6.6-49.9 ng/mL Previous: 13.0 -47.8 ng/mLRecommended Vitamin D Target Range: 30.0-40.0 ng/mLIRON, TIBC, % SAT. (WITHOUT FERRITIN)2018-02-10 08:06:00 Test Item Value Reference Range Comments IRON (BEAKER) (test ahtn=172) 26 ug/dL 40-160 TOTAL IRON BINDING CAPACITY (BEAKER) (test 274 ug/dL 250-450 gejr=398) IRON % SATURATION (2) (BEAKER) (test nkch=5055) 9 % 20-55 CARCINOEMBRYONIC ANTIGEN (CEA)2018-02-10 08:00:00 Test Item Value Reference Range Comments CARCINOEMBRYONIC ANTIGEN (BEAKER) (test nfye=379) 2.6 ng/mL 0.0-5.0 PTH, [id number] 07:29:00 Test Item Value Reference Range Comments PARATHYROID HORMONE INTACT (BEAKER) (test 78.6 pg/mL 8.5-72.5 stfv=070) URIC [id number] 06:42:00 Test Item Value Reference Range Comments URIC ACID (BEAKER) (test wbgo=939) 6.2 mg/dL 2.6-7.2 BASIC METABOLIC [id number] 06:42:00 Test Item Value Reference Range Comments SODIUM (BEAKER) (test 140 meq/L 136-145 wltl=870) POTASSIUM (BEAKER) (test 4.3 meq/L 3.5-5.1 gkiq=050) CHLORIDE (BEAKER) (test 110 meq/L 98-107 iido=755) CO2 (BEAKER) (test 24 meq/L 22-29 muzc=706) BLOOD UREA NITROGEN 14 mg/dL 7-21 (BEAKER) (test nlmh=089) CREATININE (BEAKER) (test 1.65 mg/dL 0.57-1.25 pqua=457) GLUCOSE RANDOM (BEAKER) 109 mg/dL 70-105 (test bquh=213) CALCIUM (BEAKER) (test 8.0 mg/dL 8.4-10.2 vsgi=232) EGFR (BEAKER) (test 42 mL/min/1.73 sq m ESTIMATED GFR IS NOT ykpu=6683) ACCURATE CREATININE CLEARANCE IN PREDICTING GLOMERULAR FILTRATION RATE. ESTIMATED GFR IS NOT APPLICABLE FOR DIALYSIS PATIENTS. CBC (HEMOGRAM ONLY)2018-02-10 06:06:00 Test Item Value Reference Range Comments WHITE BLOOD CELL COUNT (BEAKER) (test vzxs=112) 7.6 K/ L 3.5-10.5 RED BLOOD CELL COUNT (BEAKER) (test jfsl=832) 2.90 M/ L 4.63-6.08 HEMOGLOBIN (BEAKER) (test hzej=804) 8.6 GM/DL 13.7-17.5 HEMATOCRIT (BEAKER) (test drdh=505) 27.6 % 40.1-51.0 MEAN CORPUSCULAR VOLUME (BEAKER) (test oexb=697) 95.2 fL 79.0-92.2 MEAN CORPUSCULAR HEMOGLOBIN (BEAKER) (test 29.7 pg 25.7-32.2 mmbm=829) MEAN CORPUSCULAR HEMOGLOBIN CONC (BEAKER) (test 31.2 GM/DL 32.3-36.5 moyv=308) RED CELL DISTRIBUTION WIDTH (BEAKER) (test 14.6 % 11.6-14.4 unnj=743) PLATELET COUNT (BEAKER) (test veng=940) 296 K/CU MM 150-450 MEAN PLATELET VOLUME (BEAKER) (test rojc=255) 9.2 fL 9.4-12.4 NUCLEATED RED BLOOD CELLS (BEAKER) (test 0 /100 WBC 0-0 zljd=110) CT, CHEST, WITH [id number] 00:28:00FINAL REPORT CT, CHEST, WITH CONTRAST, CT, [...] Verified Date/Time: 02/10/2018 00:28:46 Reading Location: [facility] CT Body Reading Room CT, [id number] 00:28:00FINAL REPORT CT, CHEST, WITH CONTRAST, CT, [...] DUNLAPeport Verified Date/Time: 02/10/2018 00:28:46 Reading Location: [facility] C013[facility] CT Body Reading Room PROTEIN, RANDOM [id number] 18:49:00 Test Item Value Reference Range Comments PROTEIN, URINE (BEAKER) (test nqxv=8232) < mg/dL 0-14 BASIC METABOLIC [id number] 06:59:00 Test Item Value Reference Range Comments SODIUM (BEAKER) (test 142 meq/L 136-145 pstv=710) POTASSIUM (BEAKER) (test 4.4 meq/L 3.5-5.1 uwsn=807) CHLORIDE (BEAKER) (test 114 meq/L 98-107 ccnt=352) CO2 (BEAKER) (test 23 meq/L 22-29 adcb=608) BLOOD UREA NITROGEN 14 mg/dL 7-21 (BEAKER) (test jgfa=286) CREATININE (BEAKER) (test 1.58 mg/dL 0.57-1.25 drkj=114) GLUCOSE RANDOM (BEAKER) 95 mg/dL 70-105 (test ycxf=114) CALCIUM (BEAKER) (test 7.9 mg/dL 8.4-10.2 zxxf=942) EGFR (BEAKER) (test 45 mL/min/1.73 sq m ESTIMATED GFR IS NOT fybg=0304) ACCURATE CREATININE CLEARANCE IN PREDICTING GLOMERULAR FILTRATION RATE. ESTIMATED GFR IS NOT APPLICABLE FOR DIALYSIS PATIENTS. CBC (HEMOGRAM ONLY)2018-02-09 04:22:00 Test Item Value Reference Range Comments WHITE BLOOD CELL COUNT (BEAKER) (test agvd=758) 7.9 K/ L 3.5-10.5 RED BLOOD CELL COUNT (BEAKER) (test bhdz=409) 2.81 M/ L 4.63-6.08 HEMOGLOBIN (BEAKER) (test doew=077) 8.5 GM/DL 13.7-17.5 HEMATOCRIT (BEAKER) (test kamn=009) 27.3 % 40.1-51.0 MEAN CORPUSCULAR VOLUME (BEAKER) (test tavd=526) 97.2 fL 79.0-92.2 MEAN CORPUSCULAR HEMOGLOBIN (BEAKER) (test 30.2 pg 25.7-32.2 dgba=556) MEAN CORPUSCULAR HEMOGLOBIN CONC (BEAKER) (test 31.1 GM/DL 32.3-36.5 qzvz=147) RED CELL DISTRIBUTION WIDTH (BEAKER) (test 14.9 % 11.6-14.4 mjtu=602) PLATELET COUNT (BEAKER) (test nvwz=563) 294 K/CU MM 150-450 MEAN PLATELET VOLUME (BEAKER) (test asoq=801) 9.4 fL 9.4-12.4 NUCLEATED RED BLOOD CELLS (BEAKER) (test 0 /100 WBC 0-0 ucoq=310) [id number] 15:28:00 Test Item Value Reference Range Comments ACTIVATED CLOTTING TIME 114 sec TESTED AT [place] [id number] [facility] (BEAKER) (test fswe=075) [place] [address] [id number] 14:58:00 Test Item Value Reference Range Comments ACTIVATED CLOTTING TIME 191 sec TESTED AT [address] (BEAKER) (test lwem=441) [place] [address] BASIC METABOLIC [id number] 07:24:00 Test Item Value Reference Range Comments SODIUM (BEAKER) (test 141 meq/L 136-145 mkfk=211) POTASSIUM (BEAKER) (test 4.1 meq/L 3.5-5.1 gldf=079) CHLORIDE (BEAKER) (test 116 meq/L 98-107 flms=749) CO2 (BEAKER) (test 20 meq/L 22-29 yscl=684) BLOOD UREA NITROGEN 16 mg/dL 7-21 (BEAKER) (test dqsp=075) CREATININE (BEAKER) (test 1.68 mg/dL 0.57-1.25 qkfr=527) GLUCOSE RANDOM (BEAKER) 106 mg/dL 70-105 (test ndrp=668) CALCIUM (BEAKER) (test 7.9 mg/dL 8.4-10.2 eadq=545) EGFR (BEAKER) (test 42 mL/min/1.73 sq m ESTIMATED GFR IS NOT alxc=8329) ACCURATE CREATININE CLEARANCE IN PREDICTING GLOMERULAR FILTRATION RATE. ESTIMATED GFR IS NOT APPLICABLE FOR DIALYSIS PATIENTS. PROTHROMBIN TIME/[id number] 06:29:00 Test Item Value Reference Range Comments PROTIME (BEAKER) (test oogf=058) 14.4 seconds 11.7-14.7 INR (BEAKER) (test fmsf=223) 1.1 <=5.9 RECOMMENDED COUMADIN/WARFARIN INR THERAPY RANGESSTANDARD DOSE: 2.0 - 3.0 Includes: PROPHYLAXIS forvenous thrombosis, systemic embolization; TREATMENT for venous thrombosis and/or pulmonary embolus.HIGH RISK: Target INR is 2.5-3.5 for patients with mechanical heart valves.CBC (HEMOGRAM ONLY)2018-02-08 06:13:00 Test Item Value Reference Range Comments WHITE BLOOD CELL COUNT (BEAKER) (test hpro=120) 7.2 K/ L 3.5-10.5 RED BLOOD CELL COUNT (BEAKER) (test jkqu=201) 2.86 M/ L 4.63-6.08 HEMOGLOBIN (BEAKER) (test hjpk=054) 8.7 GM/DL 13.7-17.5 HEMATOCRIT (BEAKER) (test zmpe=357) 28.1 % 40.1-51.0 MEAN CORPUSCULAR VOLUME (BEAKER) (test ifjj=474) 98.3 fL 79.0-92.2 MEAN CORPUSCULAR HEMOGLOBIN (BEAKER) (test 30.4 pg 25.7-32.2 fyif=570) MEAN CORPUSCULAR HEMOGLOBIN CONC (BEAKER) (test 31.0 GM/DL 32.3-36.5 zxqj=397) RED CELL DISTRIBUTION WIDTH (BEAKER) (test 14.8 % 11.6-14.4 kpda=388) PLATELET COUNT (BEAKER) (test zeml=478) 317 K/CU MM 150-450 MEAN PLATELET VOLUME (BEAKER) (test fsol=077) 9.2 fL 9.4-12.4 NUCLEATED RED BLOOD CELLS (BEAKER) (test 0 /100 WBC 0-0 ihzs=353) BASIC METABOLIC [id number] 07:01:00 Test Item Value Reference Range Comments SODIUM (BEAKER) (test 140 meq/L 136-145 psxj=625) POTASSIUM (BEAKER) (test 4.2 meq/L 3.5-5.1 qttk=755) CHLORIDE (BEAKER) (test 113 meq/L 98-107 yrqm=702) CO2 (BEAKER) (test 21 meq/L 22-29 uyaz=545) BLOOD UREA NITROGEN 18 mg/dL 7-21 (BEAKER) (test brcx=722) CREATININE (BEAKER) (test 1.51 mg/dL 0.57-1.25 jtor=741) GLUCOSE RANDOM (BEAKER) 102 mg/dL 70-105 (test lwdf=732) CALCIUM (BEAKER) (test 8.1 mg/dL 8.4-10.2 ocka=687) EGFR (BEAKER) (test 47 mL/min/1.73 sq m ESTIMATED GFR IS NOT dknx=7742) ACCURATE CREATININE CLEARANCE IN PREDICTING GLOMERULAR FILTRATION RATE. ESTIMATED GFR IS NOT APPLICABLE FOR DIALYSIS PATIENTS. PROTHROMBIN TIME/[id number] 05:33:00 Test Item Value Reference Range Comments PROTIME (BEAKER) (test vicv=410) 15.3 seconds 11.7-14.7 INR (BEAKER) (test dbwz=505) 1.2 <=5.9 RECOMMENDED COUMADIN/WARFARIN INR THERAPY RANGESSTANDARD DOSE: 2.0 - 3.0 Includes: PROPHYLAXIS forvenous thrombosis, systemic embolization; TREATMENT for venous thrombosis and/or pulmonary embolus.HIGH RISK: Target INR is 2.5-3.5 for patients with mechanical heart valves.CBC (HEMOGRAM ONLY)2018-02-07 05:10:00 Test Item Value Reference Range Comments WHITE BLOOD CELL COUNT (BEAKER) (test bmjg=276) 9.9 K/ L 3.5-10.5 RED BLOOD CELL COUNT (BEAKER) (test tiys=532) 2.56 M/ L 4.63-6.08 HEMOGLOBIN (BEAKER) (test zehr=688) 7.6 GM/DL 13.7-17.5 HEMATOCRIT (BEAKER) (test kzbu=199) 24.4 % 40.1-51.0 MEAN CORPUSCULAR VOLUME (BEAKER) (test gdvm=240) 95.3 fL 79.0-92.2 MEAN CORPUSCULAR HEMOGLOBIN (BEAKER) (test 29.7 pg 25.7-32.2 brgz=092) MEAN CORPUSCULAR HEMOGLOBIN CONC (BEAKER) (test 31.1 GM/DL 32.3-36.5 swfi=964) RED CELL DISTRIBUTION WIDTH (BEAKER) (test 15.2 % 11.6-14.4 tyrs=195) PLATELET COUNT (BEAKER) (test zboh=855) 355 K/CU MM 150-450 MEAN PLATELET VOLUME (BEAKER) (test phmh=265) 9.2 fL 9.4-12.4 NUCLEATED RED BLOOD CELLS (BEAKER) (test 0 /100 WBC 0-0 znia=624) HEMOGLOBIN AND [id number] 21:29:00 Test Item Value Reference Range Comments HEMOGLOBIN (BEAKER) (test cqgz=609) 7.5 GM/DL 13.7-17.5 HEMATOCRIT (BEAKER) (test tcba=452) 23.2 % 40.1-51.0 PROTHROMBIN TIME/[id number] 10:11:00 Test Item Value Reference Range Comments PROTIME (BEAKER) (test wrle=882) 19.0 seconds 11.7-14.7 INR (BEAKER) (test kpmc=721) 1.6 <=5.9 RECOMMENDED COUMADIN/WARFARIN INR THERAPY RANGESSTANDARD DOSE: 2.0 - 3.0 Includes: PROPHYLAXIS forvenous thrombosis, systemic embolization; TREATMENT for venous thrombosis and/or pulmonary embolus.HIGH RISK: Target INR is 2.5-3.5 for patients with mechanical heart valves.HEMOGLOBIN AND [id number] 10 :03:00 Test Item Value Reference Range Comments HEMOGLOBIN (BEAKER) (test xyiw=930) 8.3 GM/DL 13.7-17.5 HEMATOCRIT (BEAKER) (test arex=983) 25.9 % 40.1-51.0 BASIC METABOLIC [id number] 23:30:00 Test Item Value Reference Range Comments SODIUM (BEAKER) (test 138 meq/L 136-145 zjan=196) POTASSIUM (BEAKER) (test 4.2 meq/L 3.5-5.1 gexk=082) CHLORIDE (BEAKER) (test 114 meq/L 98-107 xalv=401) CO2 (BEAKER) (test 20 meq/L 22-29 ckua=027) BLOOD UREA NITROGEN 25 mg/dL 7-21 (BEAKER) (test fbkr=415) CREATININE (BEAKER) (test 1.83 mg/dL 0.57-1.25 givk=767) GLUCOSE RANDOM (BEAKER) 104 mg/dL 70-105 (test unoh=475) CALCIUM (BEAKER) (test 7.7 mg/dL 8.4-10.2 pekk=287) EGFR (BEAKER) (test 38 mL/min/1.73 sq m ESTIMATED GFR IS NOT zoto=9121) ACCURATE CREATININE CLEARANCE IN PREDICTING GLOMERULAR FILTRATION RATE. ESTIMATED GFR IS NOT APPLICABLE FOR DIALYSIS PATIENTS. HEPATIC FUNCTION [id number] 23:04:00 Test Item Value Reference Range Comments TOTAL PROTEIN (BEAKER) (test lozk=459) 5.1 gm/dL 6.0-8.3 ALBUMIN (BEAKER) (test izxt=7987) 3.0 g/dL 3.5-5.0 BILIRUBIN TOTAL (BEAKER) (test lxez=673) 0.3 mg/dL 0.2-1.2 BILIRUBIN DIRECT (BEAKER) (test zkfs=550) 0.1 mg/dL 0.1-0.5 ALKALINE PHOSPHATASE (BEAKER) (test kkje=421) 67 U/L 40-150 AST (SGOT) (BEAKER) (test wikn=099) 16 U/L 5-34 ALT (SGPT) (BEAKER) (test rrnm=927) 17 U/L 6-55 [id number] 23:03:00 Test Item Value Reference Range Comments PARTIAL THROMBOPLASTIN TIME (BEAKER) (test 44.4 seconds 22.5-36.0 hbus=029) PROTHROMBIN TIME/[id number] 23:02:00 Test Item Value Reference Range Comments PROTIME (BEAKER) (test etfa=422) 34.9 seconds 11.7-14.7 INR (BEAKER) (test ahru=575) 3.5 <=5.9 RECOMMENDED COUMADIN/WARFARIN INR THERAPY RANGESSTANDARD DOSE: 2.0 - 3.0 Includes: PROPHYLAXIS forvenous thrombosis, systemic embolization; TREATMENT for venous thrombosis and/or pulmonary embolus.HIGH RISK: Target INR is 2.5-3.5 for patients with mechanical heart valves.CBC W/PLT COUNT & AUTO [id number] 22:47:00 Test Item Value Reference Range Comments WHITE BLOOD CELL COUNT (BEAKER) (test ximk=585) 10.5 K/ L 3.5-10.5 RED BLOOD CELL COUNT (BEAKER) (test vikw=625) 2.01 M/ L 4.63-6.08 HEMOGLOBIN (BEAKER) (test xxdk=963) 6.1 GM/DL 13.7-17.5 HEMATOCRIT (BEAKER) (test firp=542) 19.3 % 40.1-51.0 MEAN CORPUSCULAR VOLUME (BEAKER) (test dlbk=173) 96.0 fL 79.0-92.2 MEAN CORPUSCULAR HEMOGLOBIN (BEAKER) (test 30.3 pg 25.7-32.2 ghli=609) MEAN CORPUSCULAR HEMOGLOBIN CONC (BEAKER) (test 31.6 GM/DL 32.3-36.5 rbuj=394) RED CELL DISTRIBUTION WIDTH (BEAKER) (test 15.0 % 11.6-14.4 anyh=475) PLATELET COUNT (BEAKER) (test qart=045) 377 K/CU MM 150-450 MEAN PLATELET VOLUME (BEAKER) (test msko=921) 8.7 fL 9.4-12.4 NUCLEATED RED BLOOD CELLS (BEAKER) (test 0 /100 WBC 0-0 icop=842) NEUTROPHILS RELATIVE PERCENT (BEAKER) (test 68 % cxwv=892) LYMPHOCYTES RELATIVE PERCENT (BEAKER) (test 24 % gbwt=879) MONOCYTES RELATIVE PERCENT (BEAKER) (test 6 % dceu=552) EOSINOPHILS RELATIVE PERCENT (BEAKER) (test 2 % pqvs=676) BASOPHILS RELATIVE PERCENT (BEAKER) (test 0 % omac=615) NEUTROPHILS ABSOLUTE COUNT (BEAKER) (test 7.11 K/ L 1.78-5.38 puju=654) LYMPHOCYTES ABSOLUTE COUNT (BEAKER) (test 2.46 K/ L 1.32-3.57 uxap=962) MONOCYTES ABSOLUTE COUNT (BEAKER) (test 0.65 K/ L 0.30-0.82 qmnm=028) EOSINOPHILS ABSOLUTE COUNT (BEAKER) (test 0.17 K/ L 0.04-0.54 jqdr=720) BASOPHILS ABSOLUTE COUNT (BEAKER) (test 0.04 K/ L 0.01-0.08 miuo=009) IMMATURE GRANULOCYTES-RELATIVE PERCENT (BEAKER) 1 % 0-1 (test vlwq=9926) [id number] 05:35:00 Test Item Value Reference Range Comments PHOSPHORUS (BEAKER) (test vqbz=427) 2.7 mg/dL 2.3-4.7 [id number] 05:35:00 Test Item Value Reference Range Comments MAGNESIUM (BEAKER) (test woda=976) 1.8 mg/dL 1.6-2.6 BASIC METABOLIC [id number] 05:35:00 Test Item Value Reference Range Comments SODIUM (BEAKER) (test 138 meq/L 136-145 ictv=713) POTASSIUM (BEAKER) (test 4.2 meq/L 3.5-5.1 rayt=511) CHLORIDE (BEAKER) (test 109 meq/L 98-107 pzyg=620) CO2 (BEAKER) (test 25 meq/L 22-29 rmxp=349) BLOOD UREA NITROGEN 13 mg/dL 7-21 (BEAKER) (test iuio=895) CREATININE (BEAKER) (test 1.49 mg/dL 0.57-1.25 ucli=309) GLUCOSE RANDOM (BEAKER) 104 mg/dL 70-105 (test jlrz=949) CALCIUM (BEAKER) (test 8.4 mg/dL 8.4-10.2 uqgk=384) EGFR (BEAKER) (test 48 mL/min/1.73 sq m ESTIMATED GFR IS NOT ynjp=6922) ACCURATE CREATININE CLEARANCE IN PREDICTING GLOMERULAR FILTRATION RATE. ESTIMATED GFR IS NOT APPLICABLE FOR DIALYSIS PATIENTS. [id number] 05:29:00 Test Item Value Reference Range Comments PARTIAL THROMBOPLASTIN TIME (BEAKER) (test 130.9 seconds 22.5-36.0 gfxp=596) PROTHROMBIN [id number] 05:17:00 Test Item Value Reference Range Comments PROTIME (BEAKER) (test ghrj=374) 24.2 seconds 11.7-14.7 INR (BEAKER) (test uzvs=409) 2.2 <=5.9 RECOMMENDED COUMADIN/WARFARIN INR THERAPY RANGESSTANDARD DOSE: 2.0 - 3.0 Includes: PROPHYLAXIS forvenous thrombosis, systemic embolization; TREATMENT for venous thrombosis and/or pulmonary embolus.HIGH RISK: Target INR is 2.5-3.5 for patients with mechanical heart valves.[id number] 00:15:00 Test Item Value Reference Range Comments PARTIAL THROMBOPLASTIN TIME (BEAKER) (test 76.8 seconds 22.5-36.0 mksi=187) [id number] 16:54:00 Test Item Value Reference Range Comments PARTIAL THROMBOPLASTIN TIME (BEAKER) (test 47.3 seconds 22.5-36.0 iscd=784) [id number] 14:53:00 Test Item Value Reference Range Comments PARTIAL THROMBOPLASTIN TIME (BEAKER) (test 125.8 seconds 22.5-36.0 mudg=732) CBC (HEMOGRAM ONLY)2018-01-27 14:31:00 Test Item Value Reference Range Comments WHITE BLOOD CELL COUNT (BEAKER) (test udxz=952) 8.3 K/ L 3.5-10.5 RED BLOOD CELL COUNT (BEAKER) (test kean=658) 3.28 M/ L 4.63-6.08 HEMOGLOBIN (BEAKER) (test vnnu=393) 9.8 GM/DL 13.7-17.5 HEMATOCRIT (BEAKER) (test cyzp=015) 31.4 % 40.1-51.0 MEAN CORPUSCULAR VOLUME (BEAKER) (test gcys=302) 95.7 fL 79.0-92.2 MEAN CORPUSCULAR HEMOGLOBIN (BEAKER) (test 29.9 pg 25.7-32.2 hjxw=973) MEAN CORPUSCULAR HEMOGLOBIN CONC (BEAKER) (test 31.2 GM/DL 32.3-36.5 ckuy=232) RED CELL DISTRIBUTION WIDTH (BEAKER) (test 14.0 % 11.6-14.4 jggo=421) PLATELET COUNT (BEAKER) (test oecz=034) 230 K/CU MM 150-450 MEAN PLATELET VOLUME (BEAKER) (test wzxw=771) 9.7 fL 9.4-12.4 NUCLEATED RED BLOOD CELLS (BEAKER) (test 0 /100 WBC 0-0 kmmd=384) PROTHROMBIN [id number] 08:29:00 Test Item Value Reference Range Comments PROTIME (BEAKER) (test pqne=168) 16.1 seconds 11.7-14.7 INR (BEAKER) (test gthl=701) 1.3 <=5.9 RECOMMENDED COUMADIN/WARFARIN INR THERAPY RANGESSTANDARD DOSE: 2.0 - 3.0 Includes: PROPHYLAXIS forvenous thrombosis, systemic embolization; TREATMENT for venous thrombosis and/or pulmonary embolus.HIGH RISK: Target INR is 2.5-3.5 for patients with mechanical heart valves.6 hours after starting heparin infusion and as indicated per sliding [id number] 07:17:00 Test Item Value Reference Range Comments PHOSPHORUS (BEAKER) (test stnj=849) 2.1 mg/dL 2.3-4.7 [id number] 07:17:00 Test Item Value Reference Range Comments MAGNESIUM (BEAKER) (test xofn=531) 2.0 mg/dL 1.6-2.6 BASIC METABOLIC [id number] 07:17:00 Test Item Value Reference Range Comments SODIUM (BEAKER) (test 138 meq/L 136-145 nona=227) POTASSIUM (BEAKER) (test 4.2 meq/L 3.5-5.1 rjjy=233) CHLORIDE (BEAKER) (test 109 meq/L 98-107 ucnn=686) CO2 (BEAKER) (test 25 meq/L 22-29 tlmi=210) BLOOD UREA NITROGEN 15 mg/dL 7-21 (BEAKER) (test xwqe=796) CREATININE (BEAKER) (test 1.47 mg/dL 0.57-1.25 uezx=448) GLUCOSE RANDOM (BEAKER) 106 mg/dL 70-105 (test amgu=735) CALCIUM (BEAKER) (test 8.3 mg/dL 8.4-10.2 pvml=700) EGFR (BEAKER) (test 49 mL/min/1.73 sq m ESTIMATED GFR IS NOT nief=1349) ACCURATE CREATININE CLEARANCE IN PREDICTING GLOMERULAR FILTRATION RATE. ESTIMATED GFR IS NOT APPLICABLE FOR DIALYSIS PATIENTS. [id number] 07:07:00 Test Item Value Reference Range Comments PARTIAL THROMBOPLASTIN TIME (BEAKER) (test 107.3 seconds 22.5-36.0 mrjz=080) 6 hours after starting heparin infusion and as indicated per sliding scaleCBC ( HEMOGRAM ONLY)2018-01-27 06:30:00 Test Item Value Reference Range Comments WHITE BLOOD CELL COUNT (BEAKER) (test ufzl=182) 8.3 K/ L 3.5-10.5 RED BLOOD CELL COUNT (BEAKER) (test otwf=700) 3.38 M/ L 4.63-6.08 HEMOGLOBIN (BEAKER) (test pfdg=289) 10.1 GM/DL 13.7-17.5 HEMATOCRIT (BEAKER) (test reko=045) 32.3 % 40.1-51.0 MEAN CORPUSCULAR VOLUME (BEAKER) (test fsma=464) 95.6 fL 79.0-92.2 MEAN CORPUSCULAR HEMOGLOBIN (BEAKER) (test 29.9 pg 25.7-32.2 kvvj=516) MEAN CORPUSCULAR HEMOGLOBIN CONC (BEAKER) (test 31.3 GM/DL 32.3-36.5 ouxe=227) RED CELL DISTRIBUTION WIDTH (BEAKER) (test 13.9 % 11.6-14.4 wdvv=621) PLATELET COUNT (BEAKER) (test hvla=478) 181 K/CU MM 150-450 MEAN PLATELET VOLUME (BEAKER) (test hjas=193) 9.4 fL 9.4-12.4 NUCLEATED RED BLOOD CELLS (BEAKER) (test 0 /100 WBC 0-0 eqkh=825) [id number] 01:12:00 Test Item Value Reference Range Comments PARTIAL THROMBOPLASTIN TIME (BEAKER) (test 98.7 seconds 22.5-36.0 jwue=298) TISSUE [id number] 19:09:00Surgical Pathology Report Case: [id number] Authorizing Provider: uHmza Oconnor MD Collected: 01/23/2018 1710 Ordering Location: [facility] Recovery Room 2 Received: 01/24/2018 0943 Pathologist: Timothy Mendoza MD Specimen: Soft Tissue, Other, RIGHT VASCULAR THROMBUS/CLOT SOFT TISSUE/THROMBUS, LEG, "RIGHT VASCULAR", THROMBECTOMY- FRAGMENTS OF THROMBUS Signing Pathologist Direct Phone Line: [phone] signed by Timothy Mendoza MD on 01/26/2018 at 7:09 [id number] vascular thrombusThe specimen is received in saline labeled with the patient's information labeled "right vascular thrombus" and consists of multiple fragments of blood clot measuring 3 x 2 x 0.5 cm in aggregate. Custom Miller portions submitted A1. CG/ pl [id number] 18:00:00 Test Item Value Reference Range Comments PARTIAL THROMBOPLASTIN TIME (BEAKER) (test 57.7 seconds 22.5-36.0 orpt=177) POCT-GLUCOSE [id number] 09:17:00 Test Item Value Reference Range Comments POC-GLUCOSE METER (BEAKER) 129 mg/dL 70-110 TESTED AT [address] (test rjen=1898) [place] [address] [id number] 09:01:00 Test Item Value Reference Range Comments PARTIAL THROMBOPLASTIN TIME (BEAKER) (test 68.7 seconds 22.5-36.0 tfye=132) [id number] 01:45:00 Test Item Value Reference Range Comments PARTIAL THROMBOPLASTIN TIME (BEAKER) (test 45.8 seconds 22.5-36.0 nren=839) PROTHROMBIN [id number] 01:43:00 Test Item Value Reference Range Comments PROTIME (BEAKER) (test domi=598) 13.7 seconds 11.7-14.7 INR (BEAKER) (test zaju=837) 1.1 <=5.9 RECOMMENDED COUMADIN/WARFARIN INR THERAPY RANGESSTANDARD DOSE: 2.0 - 3.0 Includes: PROPHYLAXIS forvenous thrombosis, systemic embolization; TREATMENT for venous thrombosis and/or pulmonary embolus.HIGH RISK: Target INR is 2.5-3.5 for patients with mechanical heart valves.POCT-GLUCOSE [id number] 21:14:00 Test Item Value Reference Range Comments POC-GLUCOSE METER (BEAKER) 115 mg/dL 70-110 TESTED AT [address] (test yneg=3112) [place] [address] PLATELET AGGREGATION: FUNCTION [id number] 20:37:00 Test Item Value Reference Range Comments WEAK ADP RESULT(BEAKER) (test 48 % 60-91 clge=8080) PLATELET FUNCTION SCREEN 40-49% indicates moderate INTERP (BEAKER) (test platelet dysfunction fsvz=6439) [id number] Buzz Urbano M.D. (electonic (BEAKER) (test qqhr=9541) signature) PLATELET COUNT AGG (BEAKER) 187 K/CU MM 150-450 (test kwqk=5880) POCT-GLUCOSE [id number] 17:28:00 Test Item Value Reference Range Comments POC-GLUCOSE METER (BEAKER) 93 mg/dL 70-110 TESTED AT [address] (test iabd=2910) [place] [address] POCT-GLUCOSE [id number] 12:12:00 Test Item Value Reference Range Comments POC-GLUCOSE METER (BEAKER) 108 mg/dL 70-[address] [facility] [address] [facility] (test totm=0023) [facility] [address] [id number] 08:17:00 Test Item Value Reference Range Comments PARTIAL THROMBOPLASTIN TIME (BEAKER) (test 47.0 seconds 22.5-36.0 olnv=393) While on heparin. aPTT target range 60 to 80 seconds Notify MD if aPTT is out of range.POCT-GLUCOSE [id number] 07:47:00 Test Item Value Reference Range Comments POC-GLUCOSE METER (BEAKER) 98 mg/dL 70-[address] [facility] [address] [facility] (test amhm=2612) [facility] [address] [id number] 02:53:00 Test Item Value Reference Range Comments PARTIAL THROMBOPLASTIN TIME (BEAKER) (test 71.4 seconds 22.5-36.0 qznf=742) While on heparin. aPTT target range 60 to 80 seconds Notify MD if aPTT is out of range.PROTHROMBIN TIME/[id number] 02:51:00 Test Item Value Reference Range Comments PROTIME (BEAKER) (test bfko=191) 13.5 seconds 11.7-14.7 INR (BEAKER) (test qpbe=487) 1.0 <=5.9 RECOMMENDED COUMADIN/WARFARIN INR THERAPY RANGESSTANDARD DOSE: 2.0 - 3.0 Includes: PROPHYLAXIS forvenous thrombosis, systemic embolization; TREATMENT for venous thrombosis and/or pulmonary embolus.HIGH RISK: Target INR is 2.5-3.5 for patients with mechanical heart valves.While on heparin. aPTT target range 60 to 80 seconds Notify MD if aPTT is out of range.BASIC METABOLIC [id number] 02:48:00 Test Item Value Reference Range Comments SODIUM (BEAKER) (test 133 meq/L 136-145 xvot=918) POTASSIUM (BEAKER) (test 3.7 meq/L 3.5-5.1 xzcd=970) CHLORIDE (BEAKER) (test 102 meq/L 98-107 vzln=135) CO2 (BEAKER) (test 24 meq/L 22-29 dres=339) BLOOD UREA NITROGEN 19 mg/dL 7-21 (BEAKER) (test jyzt=935) CREATININE (BEAKER) (test 1.62 mg/dL 0.57-1.25 vttt=419) GLUCOSE RANDOM (BEAKER) 106 mg/dL 70-105 (test rohj=174) CALCIUM (BEAKER) (test 7.9 mg/dL 8.4-10.2 hdqd=735) EGFR (BEAKER) (test 43 mL/min/1.73 sq m ESTIMATED GFR IS NOT saaj=6422) ACCURATE CREATININE CLEARANCE IN PREDICTING GLOMERULAR FILTRATION RATE. ESTIMATED GFR IS NOT APPLICABLE FOR DIALYSIS PATIENTS. [id number] 02:42:00 Test Item Value Reference Range Comments MAGNESIUM (BEAKER) (test mxtw=031) 2.1 mg/dL 1.6-2.6 CBC (HEMOGRAM ONLY)2018-01-25 02:21:00 Test Item Value Reference Range Comments WHITE BLOOD CELL COUNT (BEAKER) (test zdgq=764) 10.8 K/ L 3.5-10.5 RED BLOOD CELL COUNT (BEAKER) (test kobj=613) 3.34 M/ L 4.63-6.08 HEMOGLOBIN (BEAKER) (test icug=176) 10.0 GM/DL 13.7-17.5 HEMATOCRIT (BEAKER) (test fpcu=774) 31.1 % 40.1-51.0 MEAN CORPUSCULAR VOLUME (BEAKER) (test vcye=422) 93.1 fL 79.0-92.2 MEAN CORPUSCULAR HEMOGLOBIN (BEAKER) (test 29.9 pg 25.7-32.2 iddi=069) MEAN CORPUSCULAR HEMOGLOBIN CONC (BEAKER) (test 32.2 GM/DL 32.3-36.5 musi=947) RED CELL DISTRIBUTION WIDTH (BEAKER) (test 14.0 % 11.6-14.4 ybtg=429) PLATELET COUNT (BEAKER) (test qchh=340) 186 K/CU MM 150-450 MEAN PLATELET VOLUME (BEAKER) (test ojhm=776) 9.4 fL 9.4-12.4 NUCLEATED RED BLOOD CELLS (BEAKER) (test 0 /100 WBC 0-0 sjwb=982) POCT-GLUCOSE [id number] 21:10:00 Test Item Value Reference Range Comments POC-GLUCOSE METER (BEAKER) 124 mg/dL 70-[address] [facility] [address] (test qtje=2054) [facility] [address] [id number] 20:38:00 Test Item Value Reference Range Comments PARTIAL THROMBOPLASTIN TIME (BEAKER) (test 48.6 seconds 22.5-36.0 rqwz=225) PLATELET AGGREGATION: FUNCTION [id number] 18:24:00 Test Item Value Reference Range Comments WEAK ADP RESULT(BEAKER) (test 33 % 60-91 iiqs=0471) PLATELET FUNCTION SCREEN 0-39% indicates marked platelet INTERP (BEAKER) (test dysfunction mqck=8625) [id number] Buzz Urbano M.D. (electonic (BEAKER) (test qqla=4254) signature) PLATELET COUNT AGG (BEAKER) 242 K/CU MM 150-450 (test jvwm=5453) PLATELET AGGREGATION: FUNCTION [id number] 18:22:00 Test Item Value Reference Range Comments WEAK ADP RESULT(BEAKER) (test 25 % 60-91 aqux=4792) PLATELET FUNCTION SCREEN 0-39% indicates marked platelet INTERP (BEAKER) (test dysfunction xbyx=2628) [id number]-[id number] Buzz Urbano M.D. (electonic (BEAKER) (test koyc=9322) signature) PLATELET COUNT AGG (BEAKER) 251 K/CU MM 150-450 (test cblf=5148) [id number] 16:16:00 Test Item Value Reference Range Comments PARTIAL THROMBOPLASTIN TIME (BEAKER) (test 81.3 seconds 22.5-36.0 knyv=155) [id number] 15:37:00 Test Item Value Reference Range Comments PARTIAL THROMBOPLASTIN TIME (BEAKER) (test 38.5 seconds 22.5-36.0 ytpb=279) While on heparin. aPTT target range 50 to 80 seconds Notify MD if aPTT is out of range.HEMOGLOBIN [id number] 12:50:00 Test Item Value Reference Range Comments HEMOGLOBIN A1C (BEAKER) (test dezd=287) 5.5 % 4.3-6.1 POCT-GLUCOSE [id number] 11:33:00 Test Item Value Reference Range Comments POC-GLUCOSE METER (BEAKER) 100 mg/dL 70-110 TESTED AT [address] (test wyrj=4670) [facility] [address] [id number] 08:35:00 Test Item Value Reference Range Comments PARTIAL THROMBOPLASTIN TIME (BEAKER) (test 44.9 seconds 22.5-36.0 miic=688) [id number] 04:15:00 Test Item Value Reference Range Comments MAGNESIUM (BEAKER) (test yxor=633) 1.9 mg/dL 1.6-2.6 BASIC METABOLIC [id number] 04:15:00 Test Item Value Reference Range Comments SODIUM (BEAKER) (test 136 meq/L 136-145 jppa=295) POTASSIUM (BEAKER) (test 4.4 meq/L 3.5-5.1 jqjy=511) CHLORIDE (BEAKER) (test 107 meq/L 98-107 xjlb=529) CO2 (BEAKER) (test 22 meq/L 22-29 tkji=816) BLOOD UREA NITROGEN 16 mg/dL 7-21 (BEAKER) (test tdmj=044) CREATININE (BEAKER) (test 1.54 mg/dL 0.57-1.25 aswi=719) GLUCOSE RANDOM (BEAKER) 129 mg/dL 70-105 (test gbsd=720) CALCIUM (BEAKER) (test 8.1 mg/dL 8.4-10.2 fyjc=582) EGFR (BEAKER) (test 46 mL/min/1.73 sq m ESTIMATED GFR IS NOT plgz=9595) ACCURATE CREATININE CLEARANCE IN PREDICTING GLOMERULAR FILTRATION RATE. ESTIMATED GFR IS NOT APPLICABLE FOR DIALYSIS PATIENTS. [id number] 04:12:00 Test Item Value Reference Range Comments PARTIAL THROMBOPLASTIN TIME (BEAKER) (test 65.1 seconds 22.5-36.0 cieu=109) POCT-GLUCOSE [id number] 04:11:00 Test Item Value Reference Range Comments POC-GLUCOSE METER (BEAKER) 128 mg/dL 70-110 TESTED AT [place] [id number] [facility] (test wnhz=6044) [facility] [address] PROTHROMBIN [id number] 04:11:00 Test Item Value Reference Range Comments PROTIME (BEAKER) (test gmoy=212) 14.8 seconds 11.7-14.7 INR (BEAKER) (test wuth=464) 1.2 <=5.9 RECOMMENDED COUMADIN/WARFARIN INR THERAPY RANGESSTANDARD DOSE: 2.0 - 3.0 Includes: PROPHYLAXIS forvenous thrombosis, systemic embolization; TREATMENT for venous thrombosis and/or pulmonary embolus.HIGH RISK: Target INR is 2.5-3.5 for patients with mechanical heart valves.CBC (HEMOGRAM ONLY)2018-01-24 03:59:00 Test Item Value Reference Range Comments WHITE BLOOD CELL COUNT (BEAKER) (test rovg=977) 15.9 K/ L 3.5-10.5 RED BLOOD CELL COUNT (BEAKER) (test afqa=887) 3.85 M/ L 4.63-6.08 HEMOGLOBIN (BEAKER) (test kphz=081) 11.7 GM/DL 13.7-17.5 HEMATOCRIT (BEAKER) (test xtvr=456) 35.7 % 40.1-51.0 MEAN CORPUSCULAR VOLUME (BEAKER) (test sxto=745) 92.7 fL 79.0-92.2 MEAN CORPUSCULAR HEMOGLOBIN (BEAKER) (test 30.4 pg 25.7-32.2 qwyg=680) MEAN CORPUSCULAR HEMOGLOBIN CONC (BEAKER) (test 32.8 GM/DL 32.3-36.5 ocjc=145) RED CELL DISTRIBUTION WIDTH (BEAKER) (test 13.7 % 11.6-14.4 tqxb=170) PLATELET COUNT (BEAKER) (test lukw=577) 250 K/CU MM 150-450 MEAN PLATELET VOLUME (BEAKER) (test gdwl=048) 9.8 fL 9.4-12.4 NUCLEATED RED BLOOD CELLS (BEAKER) (test 0 /100 WBC 0-0 fvek=971) RAD, CHEST, 1 VIEW, NON [id number] 00:09:00Reason for exam:->central line placement in the [...] MDReport Verified Date/Time: 01/24/2018 00:09:20 Reading Location: [facility] C013W Consult Reading Room [id number] 23:29:00 Test Item Value Reference Range Comments PARTIAL THROMBOPLASTIN TIME (BEAKER) (test > seconds 22.5-36.0 aguu=788) POCT-GLUCOSE [id number] 23:00:00 Test Item Value Reference Range Comments POC-GLUCOSE METER (BEAKER) 142 mg/dL 70-[address] [facility] [address] [facility] (test cama=8198) [facility] [address] [id number] 22:22:00 Test Item Value Reference Range Comments MAGNESIUM (BEAKER) (test covy=775) 1.9 mg/dL 1.6-2.6 CALCIUM, [id number] 22:10:00 Test Item Value Reference Range Comments CALCIUM IONIZED (BEAKER) (test ppdd=281) 1.04 mmol/L 1.12-1.27 PH, BLOOD (BEAKER) (test aeva=8244) 7.41 HEPATITIS B SURFACE [id number] 19:32:00 Test Item Value Reference Range Comments HEPATITIS B SURFACE ANTIGEN (2) (BEAKER) (test Nonreactive Nonreactive ivzy=9920) HIV-1 ANTIGEN WITH HIV-1/2 [id number] 19:32:00 Test Item Value Reference Range Comments HIV-1 ANTIGEN WITH HIV 1\\T\\2 ANTIBODY (2) Nonreactive Nonreactive (BEAKER) (test gkuc=6808) [id number] 19:23:00 Test Item Value Reference Range Comments PARTIAL THROMBOPLASTIN TIME (BEAKER) (test > seconds 22.5-36.0 pioc=027) BASIC METABOLIC [id number] 19:01:00 Test Item Value Reference Range Comments SODIUM (BEAKER) (test 136 meq/L 136-145 nqdt=307) POTASSIUM (BEAKER) (test 4.6 meq/L 3.5-5.1 ttml=058) CHLORIDE (BEAKER) (test 109 meq/L 98-107 zzhs=094) CO2 (BEAKER) (test 19 meq/L 22-29 yopw=856) BLOOD UREA NITROGEN 14 mg/dL 7-21 (BEAKER) (test jhli=718) CREATININE (BEAKER) (test 1.75 mg/dL 0.57-1.25 cudg=030) GLUCOSE RANDOM (BEAKER) 154 mg/dL 70-105 (test nwxi=403) CALCIUM (BEAKER) (test 8.1 mg/dL 8.4-10.2 ogps=334) EGFR (BEAKER) (test 40 mL/min/1.73 sq m ESTIMATED GFR IS NOT burq=9334) ACCURATE CREATININE CLEARANCE IN PREDICTING GLOMERULAR FILTRATION RATE. ESTIMATED GFR IS NOT APPLICABLE FOR DIALYSIS PATIENTS. CBC (HEMOGRAM ONLY)2018-01-23 18:45:00 Test Item Value Reference Range Comments WHITE BLOOD CELL COUNT (BEAKER) (test zpkv=694) 15.9 K/ L 3.5-10.5 RED BLOOD CELL COUNT (BEAKER) (test xhth=580) 4.00 M/ L 4.63-6.08 HEMOGLOBIN (BEAKER) (test kebn=435) 11.9 GM/DL 13.7-17.5 HEMATOCRIT (BEAKER) (test jtos=221) 38.0 % 40.1-51.0 MEAN CORPUSCULAR VOLUME (BEAKER) (test ghgl=535) 95.0 fL 79.0-92.2 MEAN CORPUSCULAR HEMOGLOBIN (BEAKER) (test 29.8 pg 25.7-32.2 figh=528) MEAN CORPUSCULAR HEMOGLOBIN CONC (BEAKER) (test 31.3 GM/DL 32.3-36.5 hteq=339) RED CELL DISTRIBUTION WIDTH (BEAKER) (test 13.7 % 11.6-14.4 qdyh=220) PLATELET COUNT (BEAKER) (test xbla=700) 253 K/CU MM 150-450 MEAN PLATELET VOLUME (BEAKER) (test wrio=637) 9.7 fL 9.4-12.4 NUCLEATED RED BLOOD CELLS (BEAKER) (test 0 /100 WBC 0-0 awhv=136) BLOOD GAS, [id number] 18:42:00 Test Item Value Reference Range Comments PH ARTERIAL (BEAKER) (test jqxr=179) 7.34 7.35-7.45 PCO2 ARTERIAL (BEAKER) (test pxyn=710) 38 mmHg 35-45 PO2 ARTERIAL (BEAKER) (test sdoe=201) 92 mmHg 80-90 O2 SATURATION ARTERIAL (BEAKER) (test jldc=885) 97.4 % 96.0-97.0 HCO3 ARTERIAL (BEAKER) (test vxmu=768) 21 mmol/L 21-29 BASE EXCESS ARTERIAL (BEAKER) (test ukoi=610) -5.3 mmol/L -2.0-3.0 PATIENT TEMPERATURE (BEAKER) (test wlrn=0566) 34.7 C FIO2 (BEAKER) (test hmmg=7113) 28.0 % GLUCOSE-STAT [id number] 18:42:00 Test Item Value Reference Range Comments GLUCOSE RANDOM (BEAKER) (test hwoa=087) 149 mg/dL 70-110 POTASSIUM-STAT [id number] 18:42:00 Test Item Value Reference Range Comments POTASSIUM (BEAKER) (test zyuf=277) 4.5 meq/L 3.6-5.5 [id number] 17:53:00 Test Item Value Reference Range Comments ACTIVATED CLOTTING TIME [address] [facility] [address] (BEAKER) (test lpkl=944) [place] [address] [id number] 17:53:00 Test Item Value Reference Range Comments ACTIVATED CLOTTING TIME 312 sec TESTED AT [place] [id number] (BEAKER) (test evtd=824) [place] [address] [id number] 17:53:00 Test Item Value Reference Range Comments ACTIVATED CLOTTING TIME 263 sec TESTED AT [place] [id number] (BEAKER) (test jern=692) [place] [address] [id number] 17:53:00 Test Item Value Reference Range Comments ACTIVATED CLOTTING TIME 235 sec TESTED AT [place] [id number] (BEAKER) (test ccuq=168) [place] [address] BASIC METABOLIC [id number] 16:20:00 Test Item Value Reference Range Comments SODIUM (BEAKER) (test 136 meq/L 136-145 xhej=436) POTASSIUM (BEAKER) (test 3.9 meq/L 3.5-5.1 rwqg=946) CHLORIDE (BEAKER) (test 107 meq/L 98-107 clju=916) CO2 (BEAKER) (test 22 meq/L 22-29 ignt=218) BLOOD UREA NITROGEN 15 mg/dL 7-21 (BEAKER) (test eaes=318) CREATININE (BEAKER) (test 1.63 mg/dL 0.57-1.25 bnqi=940) GLUCOSE RANDOM (BEAKER) 103 mg/dL 70-105 (test bnur=661) CALCIUM (BEAKER) (test 8.4 mg/dL 8.4-10.2 hghr=716) EGFR (BEAKER) (test 43 mL/min/1.73 sq m ESTIMATED GFR IS NOT code=2308) ACCURATE CREATININE CLEARANCE IN PREDICTING GLOMERULAR FILTRATION RATE. ESTIMATED GFR IS NOT APPLICABLE FOR DIALYSIS PATIENTS. [id number] 15:46:00 Test Item Value Reference Range Comments PARTIAL THROMBOPLASTIN TIME (BEAKER) (test 24.7 seconds 22.5-36.0 kvyt=363) PROTHROMBIN [id number] 15:45:00 Test Item Value Reference Range Comments PROTIME (BEAKER) (test gzwn=594) 14.0 seconds 11.7-14.7 INR (BEAKER) (test yoxp=952) 1.1 <=5.9 RECOMMENDED COUMADIN/WARFARIN INR THERAPY RANGESSTANDARD DOSE: 2.0 - 3.0 Includes: PROPHYLAXIS forvenous thrombosis, systemic embolization; TREATMENT for venous thrombosis and/or pulmonary embolus.HIGH RISK: Target INR is 2.5-3.5 for patients with mechanical heart valves.CBC W/PLT COUNT & AUTO [id number] 15:41:00 Test Item Value Reference Range Comments WHITE BLOOD CELL COUNT (BEAKER) (test yvib=986) 14.3 K/ L 3.5-10.5 RED BLOOD CELL COUNT (BEAKER) (test ovuq=671) 4.32 M/ L 4.63-6.08 HEMOGLOBIN (BEAKER) (test nion=070) 13.0 GM/DL 13.7-17.5 HEMATOCRIT (BEAKER) (test sxgk=410) 40.7 % 40.1-51.0 MEAN CORPUSCULAR VOLUME (BEAKER) (test yjqu=444) 94.2 fL 79.0-92.2 MEAN CORPUSCULAR HEMOGLOBIN (BEAKER) (test 30.1 pg 25.7-32.2 cfio=017) MEAN CORPUSCULAR HEMOGLOBIN CONC (BEAKER) (test 31.9 GM/DL 32.3-36.5 mxxt=519) RED CELL DISTRIBUTION WIDTH (BEAKER) (test 13.6 % 11.6-14.4 mojn=873) PLATELET COUNT (BEAKER) (test oice=707) 240 K/CU MM 150-450 MEAN PLATELET VOLUME (BEAKER) (test vxhl=487) 9.6 fL 9.4-12.4 NUCLEATED RED BLOOD CELLS (BEAKER) (test 0 /100 WBC 0-0 kzzj=943) NEUTROPHILS RELATIVE PERCENT (BEAKER) (test 83 % bqjj=918) LYMPHOCYTES RELATIVE PERCENT (BEAKER) (test 11 % nslu=904) MONOCYTES RELATIVE PERCENT (BEAKER) (test 5 % pnzh=460) EOSINOPHILS RELATIVE PERCENT (BEAKER) (test 0 % lsol=923) BASOPHILS RELATIVE PERCENT (BEAKER) (test 0 % nlvf=122) NEUTROPHILS ABSOLUTE COUNT (BEAKER) (test 11.79 K/ L 1.78-5.38 hyzn=616) LYMPHOCYTES ABSOLUTE COUNT (BEAKER) (test 1.57 K/ L 1.32-3.57 cttp=504) MONOCYTES ABSOLUTE COUNT (BEAKER) (test 0.75 K/ L 0.30-0.82 ltir=673) EOSINOPHILS ABSOLUTE COUNT (BEAKER) (test 0.01 K/ L 0.04-0.54 royc=008) BASOPHILS ABSOLUTE COUNT (BEAKER) (test 0.05 K/ L 0.01-0.08 riit=486) IMMATURE GRANULOCYTES-RELATIVE PERCENT (BEAKER) 1 % 0-1 (test nvbd=1294) TISSUE [id number] 14:59:00Surgical Pathology Report Case: [id number] Authorizing Provider: Humza Oconnor MD Collected: 11/17/2017 0937 Ordering Location: [facility] CV Recovery Room 2 Received: 11/17/2017 1003 Pathologist: Vince Tobias MD Specimen: Plaque, right femoral plaque ARTERY, RIGHT FEMORAL, THROMBECTOMY :FIBRIN THROMBUSFIBROVASCULAR AND FIBROADIPOSE TISSUE Signing Pathologist Direct Phone Line: [phone] signed by Vince Tobias MD on at 2:59 [id number] femoral plaqueReceived in saline labeled "plaque", description "right femoral plaque" arefour irregular, caban-white to yellow-rose, rubbery fragments of plaque-like material measuring 3.0 x 2.5 x 0.3 cm in aggregate. sectioning reveals no discrete masses. Custom Miller sections are submitted in cassette A1. DB/ew [facility] METABOL[facility] [id number] 06: 17:00 Test Item Value Reference Range Comments SODIUM (BEAKER) (test 137 meq/L 136-145 ludz=488) POTASSIUM (BEAKER) (test 4.0 meq/L 3.5-5.1 mjga=098) CHLORIDE (BEAKER) (test 108 meq/L 98-107 hzwy=924) CO2 (BEAKER) (test 22 meq/L 22-29 dbzh=088) BLOOD UREA NITROGEN 19 mg/dL 7-21 (BEAKER) (test pkzo=350) CREATININE (BEAKER) (test 1.54 mg/dL 0.57-1.25 bmsj=845) GLUCOSE RANDOM (BEAKER) 99 mg/dL 70-105 (test tqoa=244) CALCIUM (BEAKER) (test 8.7 mg/dL 8.4-10.2 qyur=091) EGFR (BEAKER) (test 46 mL/min/1.73 sq m ESTIMATED GFR IS NOT aydg=9770) ACCURATE CREATININE CLEARANCE IN PREDICTING GLOMERULAR FILTRATION RATE. ESTIMATED GFR IS NOT APPLICABLE FOR DIALYSIS PATIENTS. CBC (HEMOGRAM ONLY)2017-11-21 05:21:00 Test Item Value Reference Range Comments WHITE BLOOD CELL COUNT (BEAKER) (test mrhc=225) 8.6 K/ L 3.5-10.5 RED BLOOD CELL COUNT (BEAKER) (test hrzh=565) 4.33 M/ L 4.63-6.08 HEMOGLOBIN (BEAKER) (test wofi=951) 14.1 GM/DL 13.7-17.5 HEMATOCRIT (BEAKER) (test wnkg=649) 43.3 % 40.1-51.0 MEAN CORPUSCULAR VOLUME (BEAKER) (test akok=073) 100.0 fL 79.0-92.2 MEAN CORPUSCULAR HEMOGLOBIN (BEAKER) (test 32.6 pg 25.7-32.2 eops=645) MEAN CORPUSCULAR HEMOGLOBIN CONC (BEAKER) (test 32.6 GM/DL 32.3-36.5 rxjw=196) RED CELL DISTRIBUTION WIDTH (BEAKER) (test 15.2 % 11.6-14.4 okmy=430) PLATELET COUNT (BEAKER) (test omhu=413) 173 K/CU MM 150-450 MEAN PLATELET VOLUME (BEAKER) (test qayt=217) 9.7 fL 9.4-12.4 NUCLEATED RED BLOOD CELLS (BEAKER) (test 0 /100 WBC 0-0 frqb=169) BASIC METABOLIC [id number] 10:29:00 Test Item Value Reference Range Comments SODIUM (BEAKER) (test 138 meq/L 136-145 ofqu=830) POTASSIUM (BEAKER) (test 4.0 meq/L 3.5-5.1 lsed=225) CHLORIDE (BEAKER) (test 109 meq/L 98-107 qpxc=163) CO2 (BEAKER) (test 21 meq/L 22-29 fivh=092) BLOOD UREA NITROGEN 15 mg/dL 7-21 (BEAKER) (test mnih=745) CREATININE (BEAKER) (test 1.60 mg/dL 0.57-1.25 cnkz=100) GLUCOSE RANDOM (BEAKER) 101 mg/dL 70-105 (test nltt=989) CALCIUM (BEAKER) (test 8.7 mg/dL 8.4-10.2 dwft=890) EGFR (BEAKER) (test 44 mL/min/1.73 sq m ESTIMATED GFR IS NOT icgu=9757) ACCURATE CREATININE CLEARANCE IN PREDICTING GLOMERULAR FILTRATION RATE. ESTIMATED GFR IS NOT APPLICABLE FOR DIALYSIS PATIENTS. LIPID [id number] 04:26:00 Test Item Value Reference Range Comments TRIGLYCERIDES (BEAKER) (test zmxp=089) 119 mg/dL CHOLESTEROL (BEAKER) (test zvlo=369) 123 mg/dL HDL CHOLESTEROL (BEAKER) (test owqx=237) 26 mg/dL LDL CHOLESTEROL CALCULATED (BEAKER) (test 73 mg/dL njjz=316) Triglyceride Reference Range: Low Risk <150 Borderline 150- 199 High Risk 200-499 Very High Risk >=500Cholesterol Reference Range: Low Risk <200 Borderline 200-239 High Risk > 240HDL Cholesterol Reference Range: Low Risk >=60 High Risk <40LDL Cholesterol Reference Range: Optimal <100 Near Optimal 100-129 Borderline 130-159 High 160-189 Very High >=[id number] 05:39:00 Test Item Value Reference Range Comments MAGNESIUM (BEAKER) (test xljm=279) 2.0 mg/dL 1.6-2.6 BASIC METABOLIC [id number] 05:39:00 Test Item Value Reference Range Comments SODIUM (BEAKER) (test 137 meq/L 136-145 mivw=452) POTASSIUM (BEAKER) (test 4.0 meq/L 3.5-5.1 hdwp=537) CHLORIDE (BEAKER) (test 109 meq/L 98-107 ruqd=043) CO2 (BEAKER) (test 22 meq/L 22-29 wcnt=612) BLOOD UREA NITROGEN 16 mg/dL 7-21 (BEAKER) (test nepa=581) CREATININE (BEAKER) (test 1.76 mg/dL 0.57-1.25 mwnf=769) GLUCOSE RANDOM (BEAKER) 101 mg/dL 70-105 (test rrkm=038) CALCIUM (BEAKER) (test 8.5 mg/dL 8.4-10.2 sluc=935) EGFR (BEAKER) (test 39 mL/min/1.73 sq m ESTIMATED GFR IS NOT drca=7681) ACCURATE CREATININE CLEARANCE IN PREDICTING GLOMERULAR FILTRATION RATE. ESTIMATED GFR IS NOT APPLICABLE FOR DIALYSIS PATIENTS. CBC W/PLT COUNT & AUTO [id number] 05:04:00 Test Item Value Reference Range Comments WHITE BLOOD CELL COUNT (BEAKER) (test zoyv=837) 8.2 K/ L 3.5-10.5 RED BLOOD CELL COUNT (BEAKER) (test citr=662) 4.08 M/ L 4.63-6.08 HEMOGLOBIN (BEAKER) (test euaj=877) 13.1 GM/DL 13.7-17.5 HEMATOCRIT (BEAKER) (test blpn=081) 40.2 % 40.1-51.0 MEAN CORPUSCULAR VOLUME (BEAKER) (test kmxl=470) 98.5 fL 79.0-92.2 MEAN CORPUSCULAR HEMOGLOBIN (BEAKER) (test 32.1 pg 25.7-32.2 kryh=684) MEAN CORPUSCULAR HEMOGLOBIN CONC (BEAKER) (test 32.6 GM/DL 32.3-36.5 snmt=764) RED CELL DISTRIBUTION WIDTH (BEAKER) (test 15.0 % 11.6-14.4 fjfb=387) PLATELET COUNT (BEAKER) (test cbab=695) 153 K/CU MM 150-450 MEAN PLATELET VOLUME (BEAKER) (test gvvt=510) 9.7 fL 9.4-12.4 NUCLEATED RED BLOOD CELLS (BEAKER) (test 0 /100 WBC 0-0 eoki=467) NEUTROPHILS RELATIVE PERCENT (BEAKER) (test 68 % lwiw=005) LYMPHOCYTES RELATIVE PERCENT (BEAKER) (test 19 % bsin=726) MONOCYTES RELATIVE PERCENT (BEAKER) (test 9 % cpfn=302) EOSINOPHILS RELATIVE PERCENT (BEAKER) (test 4 % xdyu=649) BASOPHILS RELATIVE PERCENT (BEAKER) (test 0 % aoae=582) NEUTROPHILS ABSOLUTE COUNT (BEAKER) (test 5.57 K/ L 1.78-5.38 cwvc=713) LYMPHOCYTES ABSOLUTE COUNT (BEAKER) (test 1.60 K/ L 1.32-3.57 cirk=224) MONOCYTES ABSOLUTE COUNT (BEAKER) (test 0.70 K/ L 0.30-0.82 lqym=440) EOSINOPHILS ABSOLUTE COUNT (BEAKER) (test 0.30 K/ L 0.04-0.54 fidm=225) BASOPHILS ABSOLUTE COUNT (BEAKER) (test 0.03 K/ L 0.01-0.08 acfq=823) IMMATURE GRANULOCYTES-RELATIVE PERCENT (BEAKER) 1 % 0-1 (test yffc=7622) [id number] 07:37:00 Test Item Value Reference Range Comments MAGNESIUM (BEAKER) (test gmyh=562) 2.0 mg/dL 1.6-2.6 BASIC METABOLIC [id number] 07:37:00 Test Item Value Reference Range Comments SODIUM (BEAKER) (test 136 meq/L 136-145 nkdf=443) POTASSIUM (BEAKER) (test 4.4 meq/L 3.5-5.1 gjan=765) CHLORIDE (BEAKER) (test 106 meq/L 98-107 yjqm=395) CO2 (BEAKER) (test 22 meq/L 22-29 tvcj=102) BLOOD UREA NITROGEN 15 mg/dL 7-21 (BEAKER) (test bmqv=782) CREATININE (BEAKER) (test 1.59 mg/dL 0.57-1.25 rtie=123) GLUCOSE RANDOM (BEAKER) 99 mg/dL 70-105 (test kwik=240) CALCIUM (BEAKER) (test 8.7 mg/dL 8.4-10.2 spka=811) EGFR (BEAKER) (test 44 mL/min/1.73 sq m ESTIMATED GFR IS NOT lcqx=5891) ACCURATE CREATININE CLEARANCE IN PREDICTING GLOMERULAR FILTRATION RATE. ESTIMATED GFR IS NOT APPLICABLE FOR DIALYSIS PATIENTS. BASIC METABOLIC [id number] 11:14:00 Test Item Value Reference Range Comments SODIUM (BEAKER) (test 139 meq/L 136-145 lroz=422) POTASSIUM (BEAKER) (test 4.5 meq/L 3.5-5.1 ipmv=353) CHLORIDE (BEAKER) (test 111 meq/L 98-107 xyal=132) CO2 (BEAKER) (test 21 meq/L 22-29 dcqk=917) BLOOD UREA NITROGEN 12 mg/dL 7-21 (BEAKER) (test xhby=222) CREATININE (BEAKER) (test 1.58 mg/dL 0.57-1.25 pawk=812) GLUCOSE RANDOM (BEAKER) 103 mg/dL 70-105 (test ztej=870) CALCIUM (BEAKER) (test 9.2 mg/dL 8.4-10.2 noxf=808) EGFR (BEAKER) (test 45 mL/min/1.73 sq m ESTIMATED GFR IS NOT vxgz=2765) ACCURATE CREATININE CLEARANCE IN PREDICTING GLOMERULAR FILTRATION RATE. ESTIMATED GFR IS NOT APPLICABLE FOR DIALYSIS PATIENTS. CBC W/PLT COUNT & AUTO [id number] 10:50:00 Test Item Value Reference Range Comments WHITE BLOOD CELL COUNT (BEAKER) (test ynqj=605) 8.7 K/ L 3.5-10.5 RED BLOOD CELL COUNT (BEAKER) (test kwfr=932) 4.12 M/ L 4.63-6.08 HEMOGLOBIN (BEAKER) (test half=947) 13.4 GM/DL 13.7-17.5 HEMATOCRIT (BEAKER) (test yaqn=725) 41.5 % 40.1-51.0 MEAN CORPUSCULAR VOLUME (BEAKER) (test wkxr=016) 100.7 fL 79.0-92.2 MEAN CORPUSCULAR HEMOGLOBIN (BEAKER) (test 32.5 pg 25.7-32.2 stcq=454) MEAN CORPUSCULAR HEMOGLOBIN CONC (BEAKER) (test 32.3 GM/DL 32.3-36.5 txdz=256) RED CELL DISTRIBUTION WIDTH (BEAKER) (test 15.1 % 11.6-14.4 kjdv=317) PLATELET COUNT (BEAKER) (test nyrc=022) 231 K/CU MM 150-450 MEAN PLATELET VOLUME (BEAKER) (test isdo=140) 8.9 fL 9.4-12.4 NUCLEATED RED BLOOD CELLS (BEAKER) (test 0 /100 WBC 0-0 cjno=307) NEUTROPHILS RELATIVE PERCENT (BEAKER) (test 70 % qznr=228) LYMPHOCYTES RELATIVE PERCENT (BEAKER) (test 21 % rqtr=388) MONOCYTES RELATIVE PERCENT (BEAKER) (test 6 % ngfh=217) EOSINOPHILS RELATIVE PERCENT (BEAKER) (test 3 % snwz=828) BASOPHILS RELATIVE PERCENT (BEAKER) (test 0 % zzko=828) NEUTROPHILS ABSOLUTE COUNT (BEAKER) (test 6.04 K/ L 1.78-5.38 oafa=045) LYMPHOCYTES ABSOLUTE COUNT (BEAKER) (test 1.80 K/ L 1.32-3.57 mims=511) MONOCYTES ABSOLUTE COUNT (BEAKER) (test 0.51 K/ L 0.30-0.82 gxrb=638) EOSINOPHILS ABSOLUTE COUNT (BEAKER) (test 0.24 K/ L 0.04-0.54 xxmm=446) BASOPHILS ABSOLUTE COUNT (BEAKER) (test 0.02 K/ L 0.01-0.08 umjz=416) IMMATURE GRANULOCYTES-RELATIVE PERCENT (BEAKER) 1 % 0-1 (test madq=8120) GLUCOSE-STAT [id number] 10:35:00 Test Item Value Reference Range Comments GLUCOSE RANDOM (BEAKER) (test eshl=249) 99 mg/dL 70-110 Only if arterial line in place and/or patient on ventilatorSODIUM NA-STAT [id number] 10:35:00 Test Item Value Reference Range Comments SODIUM (BEAKER) (test emoy=669) 137 meq/L 135-148 Only if arterial line in place and/or patient on ventilatorPOTASSIUM-STAT [id number] 10:35:00 Test Item Value Reference Range Comments POTASSIUM (BEAKER) (test thvc=833) 4.4 meq/L 3.6-5.5 Only if arterial line in place and/or patient on ventilatorHGB/HCT (H&H) - STAT [id number] 10:35:00 Test Item Value Reference Range Comments HEMOGLOBIN (BEAKER) (test kjsb=945) 14.2 g/dL 13.0-16.8 HEMATOCRIT (BEAKER) (test maqp=524) 42.0 % 40.0-50.0 Only if arterial line in place and/or patient on ventilatorBLOOD GAS, [id number] 10:35:00 Test Item Value Reference Range Comments PH ARTERIAL (BEAKER) (test vzzh=359) 7.37 7.35-7.45 PCO2 ARTERIAL (BEAKER) (test khzs=052) 37 mmHg 35-45 PO2 ARTERIAL (BEAKER) (test zzfx=249) 132 mmHg 80-90 O2 SATURATION ARTERIAL (BEAKER) (test vdmy=658) 98.6 % 96.0-97.0 HCO3 ARTERIAL (BEAKER) (test hiur=399) 21 mmol/L 21-29 BASE EXCESS ARTERIAL (BEAKER) (test focm=085) -4.0 mmol/L -2.0-3.0 PATIENT TEMPERATURE (BEAKER) (test xeuj=3892) 36.4 C FIO2 (BEAKER) (test oyra=6963) 48.0 % Only if arterial line in place and/or patient on ventilatorBLOOD GAS, [id number] 09:03:00 Test Item Value Reference Range Comments PH ARTERIAL (BEAKER) (test awov=426) 7.36 7.35-7.45 PCO2 ARTERIAL (BEAKER) (test cclt=267) 40 mmHg 35-45 PO2 ARTERIAL (BEAKER) (test rkyg=073) 153 mmHg 80-90 O2 SATURATION ARTERIAL (BEAKER) (test eqeu=398) 99.0 % 96.0-97.0 HCO3 ARTERIAL (BEAKER) (test joig=028) 23 mmol/L 21-29 BASE EXCESS ARTERIAL (BEAKER) (test egfe=963) -3.1 mmol/L -2.0-3.0 PATIENT TEMPERATURE (BEAKER) (test cndl=1656) 35.3 C FIO2 (BEAKER) (test vvpf=7237) 60.0 % CALCIUM, [id number] 09:03:00 Test Item Value Reference Range Comments CALCIUM IONIZED (BEAKER) (test jskj=682) 1.06 mmol/L 1.12-1.27 PH, BLOOD (BEAKER) (test eeyz=1632) 7.34 GLUCOSE-STAT [id number] 09:02:00 Test Item Value Reference Range Comments GLUCOSE RANDOM (BEAKER) (test lqlx=784) 106 mg/dL 70-110 SODIUM NA-STAT [id number] 09:02:00 Test Item Value Reference Range Comments SODIUM (BEAKER) (test pkxb=322) 136 meq/L 135-148 POTASSIUM-STAT [id number] 09:02:00 Test Item Value Reference Range Comments POTASSIUM (BEAKER) (test qgbr=150) 4.2 meq/L 3.6-5.5 HGB/HCT (H&H) - STAT [id number] 09:02:00 Test Item Value Reference Range Comments HEMOGLOBIN (BEAKER) (test ofym=619) 13.5 g/dL 13.0-16.8 HEMATOCRIT (BEAKER) (test qcys=926) 40.0 % 40.0-50.0 URINALYSIS W/ [id number] 07:46:00 Test Item Value Reference Range Comments COLOR (BEAKER) (test khdh=590) Light Yellow CLARITY (BEAKER) (test khnw=835) Clear SPECIFIC GRAVITY UA (BEAKER) (test ygmq=309) 1.009 1.001-1.035 PH UA (BEAKER) (test dpyx=075) 6.0 5.0-8.0 PROTEIN UA (BEAKER) (test kdzu=053) Negative Negative GLUCOSE UA (BEAKER) (test zrxk=037) Negative Negative KETONES UA (BEAKER) (test fvyd=448) Negative Negative BILIRUBIN UA (BEAKER) (test dpvs=482) Negative Negative BLOOD UA (BEAKER) (test elnj=652) Negative Negative NITRITE UA (BEAKER) (test thko=976) Negative Negative LEUKOCYTE ESTERASE UA (BEAKER) (test rukd=697) Negative Negative UROBILINOGEN UA (BEAKER) (test kurh=326) 0.2 mg/dL 0.2-1.0 RBC UA (BEAKER) (test tmbn=827) 1 /HPF WBC UA (BEAKER) (test brgg=923) < /HPF SOURCE(BEAKER) (test wfsv=9947) Urine, Voided [id number] 04:52:00 Test Item Value Reference Range Comments MAGNESIUM (BEAKER) (test hihu=544) 2.1 mg/dL 1.6-2.6 COMPREHENSIVE METABOLIC [id number] 04:52:00 Test Item Value Reference Range Comments TOTAL PROTEIN (BEAKER) 6.2 gm/dL 6.0-8.3 (test lals=921) ALBUMIN (BEAKER) (test 3.6 g/dL 3.5-5.0 rrgq=0158) ALKALINE PHOSPHATASE 83 U/L 40-150 (BEAKER) (test hcto=507) BILIRUBIN TOTAL (BEAKER) 0.4 mg/dL 0.2-1.2 (test gjau=941) SODIUM (BEAKER) (test 137 meq/L 136-145 mkqf=535) POTASSIUM (BEAKER) (test 4.4 meq/L 3.5-5.1 kiqt=751) CHLORIDE (BEAKER) (test 108 meq/L 98-107 uqej=389) CO2 (BEAKER) (test 22 meq/L 22-29 erbi=710) BLOOD UREA NITROGEN 14 mg/dL 7-21 (BEAKER) (test gdyp=417) CREATININE (BEAKER) (test 1.61 mg/dL 0.57-1.25 qqin=292) GLUCOSE RANDOM (BEAKER) 89 mg/dL 70-105 (test bmnk=203) CALCIUM (BEAKER) (test 8.9 mg/dL 8.4-10.2 cddh=025) AST (SGOT) (BEAKER) (test 18 U/L 5-34 opkr=588) ALT (SGPT) (BEAKER) (test 15 U/L 6-55 coyp=452) EGFR (BEAKER) (test 44 mL/min/1.73 sq m ESTIMATED GFR IS NOT nfkn=1967) ACCURATE CREATININE CLEARANCE IN PREDICTING GLOMERULAR FILTRATION RATE. ESTIMATED GFR IS NOT APPLICABLE FOR DIALYSIS PATIENTS. [id number] 04:50:00 Test Item Value Reference Range Comments PARTIAL THROMBOPLASTIN TIME (BEAKER) (test 27.8 seconds 22.5-36.0 vmmi=713) PROTHROMBIN TIME/[id number] 04:49:00 Test Item Value Reference Range Comments PROTIME (BEAKER) (test pbfc=987) 13.0 seconds 11.7-14.7 INR (BEAKER) (test ucnu=623) 1.0 <=5.9 RECOMMENDED COUMADIN/WARFARIN INR THERAPY RANGESSTANDARD DOSE: 2.0 - 3.0 Includes: PROPHYLAXIS forvenous thrombosis, systemic embolization; TREATMENT for venous thrombosis and/or pulmonary embolus.HIGH RISK: Target INR is 2.5-3.5 for patients with mechanical heart valves.CBC W/PLT COUNT & AUTO [id number] 04:34:00 Test Item Value Reference Range Comments WHITE BLOOD CELL COUNT (BEAKER) (test cbxl=090) 7.6 K/ L 3.5-10.5 RED BLOOD CELL COUNT (BEAKER) (test dfxe=218) 4.47 M/ L 4.63-6.08 HEMOGLOBIN (BEAKER) (test oglm=281) 14.4 GM/DL 13.7-17.5 HEMATOCRIT (BEAKER) (test mmnd=930) 44.2 % 40.1-51.0 MEAN CORPUSCULAR VOLUME (BEAKER) (test ggmy=965) 98.9 fL 79.0-92.2 MEAN CORPUSCULAR HEMOGLOBIN (BEAKER) (test 32.2 pg 25.7-32.2 lwxy=740) MEAN CORPUSCULAR HEMOGLOBIN CONC (BEAKER) (test 32.6 GM/DL 32.3-36.5 bxrk=883) RED CELL DISTRIBUTION WIDTH (BEAKER) (test 14.8 % 11.6-14.4 mbya=409) PLATELET COUNT (BEAKER) (test scuq=644) 244 K/CU MM 150-450 MEAN PLATELET VOLUME (BEAKER) (test dshv=426) 9.2 fL 9.4-12.4 NUCLEATED RED BLOOD CELLS (BEAKER) (test 0 /100 WBC 0-0 tvuz=499) NEUTROPHILS RELATIVE PERCENT (BEAKER) (test 68 % bijx=376) LYMPHOCYTES RELATIVE PERCENT (BEAKER) (test 20 % apll=561) MONOCYTES RELATIVE PERCENT (BEAKER) (test 7 % sfoq=915) EOSINOPHILS RELATIVE PERCENT (BEAKER) (test 5 % qkze=159) BASOPHILS RELATIVE PERCENT (BEAKER) (test 0 % nvas=396) NEUTROPHILS ABSOLUTE COUNT (BEAKER) (test 5.11 K/ L 1.78-5.38 evuo=926) LYMPHOCYTES ABSOLUTE COUNT (BEAKER) (test 1.54 K/ L 1.32-3.57 vmyz=095) MONOCYTES ABSOLUTE COUNT (BEAKER) (test 0.51 K/ L 0.30-0.82 vlyd=837) EOSINOPHILS ABSOLUTE COUNT (BEAKER) (test 0.36 K/ L 0.04-0.54 hfon=905) BASOPHILS ABSOLUTE COUNT (BEAKER) (test 0.03 K/ L 0.01-0.08 yplu=084) IMMATURE GRANULOCYTES-RELATIVE PERCENT (BEAKER) 0 % 0-1 (test vbok=0509) RAD, CHEST, 1 VIEW, NON [id number] 22:42:00Reason for exam:->pre op evalShould this be performed at the bedside?->YesFINAL REPORT INDICATION: pre op eval COMPARISON: None TECHNIQUE: Single frontal view of the chest. FINDINGS: Lungs and pleura: Clear lungs. No effusion.Heart and mediastinum: Normal heart size. Unremarkable mediastinal contours.Osseous structures: No acute abnormality.Other: None. IMPRESSION: No acute intrathoracic abnormality. Signed: JR Horta Robert [facility] Verified Date/Time: 11/16/2017 22:42:55 Reading Location: [address] Reading Room
[2018-06-03] MEDS ORDERED: FENTANYL CITR 100 MCG/2 ML ONE (16:10)
--- NOTE | 2018-06-03 16:16 | RAD REPORT ---
EXAM DESCRIPTION: Ishaan Single View06/03/2018 4:02 pm CLINICAL HISTORY: Chest pain COMPARISON: October 1017 FINDINGS: The lungs appear clear of acute infiltrate. The heart is normal size A central venous catheter remains in place. Chronic elevation right hemidiaphragm IMPRESSION: No acute abnormalities displayed
[2018-06-03 16:23] LABS: Absolute Lymphocytes (CBC) 1.7 K/uL (0.7-4.9); Absolute Monocytes 0.6 K/uL (0.1-1.3); Absolute Neutrophil 7.1 K/uL (1.8-8.0); Basophils % 0.3 % (0-1.3); Eosinophils % 4.5 % (0-4.4); Hematocrit 36.1 % (39.6-49.0); Lymphocytes % 17.6 % (15.3-44.8); MPV 7.2 fL (7.6-11.3); Monocytes % 5.7 % (3.3-12.3); Protime INR 1.09; RBC Red Blood Cell Count 4.06 M/uL (4.33-5.43)
[2018-06-03 16:30] LABS: ALT/SGPT 14 U/L (12-78); AST/SGOT 32 U/L (15-37); Albumin 3.5 g/dL (3.4-5.0); Alkaline Phosphatase 94 U/L (45-117); BUN Blood Urea Nitrogen 14 mg/dL (7-18); Bicarbonate 24 mmol/L (21-32); Bilirubin Direct 0.1 mg/dL (0-0.2); Bilirubin Total 0.3 mg/dL (0.2-1.0); Glucose Level 105 mg/dL (74-106); Magnesium 1.9 mg/dL (1.8-2.4); NT PRO-BNP 87 pg/mL (<125); Potassium 3.8 mmol/L (3.5-5.1); Protein, Total 7.5 g/dL (6.4-8.2); Sodium Level 137 mmol/L (136-145); Troponin (Emerg Dept Use Only) < 0.02 ng/mL (0.0-0.045)
--- NOTE | 2018-06-03 17:20 | RAD REPORT ---
EXAM DESCRIPTION: US - Lower Extremity Artery Uni Ltd - 06/03/2018 4:59 pm CLINICAL HISTORY: Right lower extremity pain and black toe COMPARISON: April 2017 FINDINGS: Right common femoral artery demonstrates triphasic waveforms A superficial femoral and popliteal graft is present. Blood flow is significantly diminished within t he graft with monophasic waveforms with diminished amplitude. Monophasic waveforms involve the right posterior tibial and dorsalis pedis arteries with diminished a mplitude. Minimal flow is present within the [place] right superficial femoral artery IMPRESSION: Right superficial femoral and popliteal graft demonstrate significantly diminished blood flow
--- NOTE | 2018-06-03 17:21 | ER ---
Nurse's Notes [facility] Name: Jaswinder Roa Age: 62 yrs Sex: Male : 1955 Arrival Date: 06/03/2018 Time: 15:17 Bed 19 Private MD: Diagnosis: Peripheral arterial disease Presentation: 06/03 15:17 Presenting complaint: EMS states: called out for right foot pain that started last em Tuesday, pt has hx of blood clots, was seen this morning for right big toe infection and discharged, right foot cool to touch, right big toe black and redness noted, denies fever, rates pain 6/10. Transition of care: patient was not received from another setting of care. Onset of symptoms was May 22, 2018. Risk Assessment: Do you want to hurt yourself or someone else? Patient reports no desire to harm self or others. Initial Sepsis Screen: Does the patient meet any 2 criteria? HR > 90 bpm. No. Patient's initial sepsis screen is negative. Does the patient have a suspected source of infection? Yes: Skin breakdown/wound. Care prior to arrival: None. 15:17 Method Of Arrival: EMS: [facility] em 15:36 Acuity: [facility] 3 hb Triage Assessment: 15:26 General: Appears in no apparent distress. uncomfortable, Behavior is calm, cooperative. em Pain: Complains of pain in right foot. Historical: - Allergies: 15:26 tramadol; em - Home Meds: 15:26 aspirin 81 mg Oral chew 1 tab once daily [Active]; lisinopril 5 mg Oral tab 1 tab once em daily [Active]; Plavix 75 mg Oral tab 1 tab once daily [Active]; Warfarin Oral [Active]; - PMHx: 15:26 DVT; Hypertension; rectal cancer with metastasis; em - PSHx: 15:26 right foot sx; em - Immunization history:: Adult Immunizations up to date, Last tetanus immunization: unknown. - Social history:: Smoking status: Patient uses tobacco products, smokes one pack cigarettes per day. - Ebola Screening: : Patient negative for fever greater than or equal to 101.5 degrees Fahrenheit, and additional compatible Ebola Virus Disease symptoms Patient denies exposure to infectious person Patient denies travel to an Ebola-affected area in the 21 days before illness onset No symptoms or risks identified at this time. Screenin:18 Abuse screen: Denies threats or abuse. Nutritional screening: No deficits noted. em Tuberculosis screening: No symptoms or risk factors identified. Fall Risk None identified. Assessment: 15:19 General: Appears uncomfortable, Behavior is calm, cooperative, Denies fever. Pain: em Complains of pain in right foot Pain currently is 6 out of 10 on a pain scale. Neuro: Level of Consciousness is awake, alert, obeys commands, Oriented to person, place, time, situation. Cardiovascular: Patient's skin is warm and dry. Rhythm is regular. Respiratory: Airway is patent Respiratory effort is even, unlabored, Respiratory pattern is regular, symmetrical. Derm: Skin Skin is dry, Skin is pale, Skin temperature is cool Wound noted right first toe Reports pain that is 6 out of 10 on a pain scale. tingling. Musculoskeletal: Capillary refill is > 3 seconds, is sluggish, in right toes. Range of motion: intact in all extremities. 16:30 Reassessment: Patient appears in no apparent distress at this time. Patient and/or em family updated on plan of care and expected duration. Pain level reassessed. Patient is alert, oriented x 3, equal unlabored respirations, skin warm/dry/pink. 17:59 Reassessment: Patient appears in no apparent distress at this time. Patient and/or em family updated on plan of care and expected duration. Pain level reassessed. Patient is alert, oriented x 3, equal unlabored respirations, skin warm/dry/pink. Patient states feeling better. Vital Signs: 15:17 BP 157 / 100; Pulse 93; Resp 18; Temp 98.3; Pulse Ox 100% on R/A; Pain 6/10; em 16:30 BP 148 / 98; Pulse 87; Resp 16; Pulse Ox 99% on R/A; em 17:59 BP 137 / 86; Pulse 79; Resp 20; Pulse Ox 100% on R/A; em ED Course: 15:17 Patient arrived in ED. em 15:17 Arm band placed on. em 15:18 Patient has correct armband on for positive identification. Placed in gown. Bed in low em position. Call light in reach. Side rails up X2. Pulse ox on. NIBP on. 15:29 Ольга Law FNP-C is PHCP. snw 15:29 Toussaint, Anival, MD is Attending Physician. snw 15:36 Triage completed. hb 15:55 Initial lab(s) drawn, by me, sent to lab. Inserted saline lock: 22 gauge in left em forearm, using aseptic technique. Blood collected. 16:02 XRAY Chest (1 view) In Process Unspecified. EDMS 16:04 EKG done, by ED staff, reviewed by Ольга GRIMES. [facility] 16:07 Andrés Pappas LVN is Primary Nurse. em 16:52 Ultrasound completed. Other: pt moving a lot had to reposition several times due to sg3 pain. 16:59 US LE Artery Uni Ltd In Process Unspecified. EDMS 17:59 No provider procedures requiring assistance completed. em 17:59 IV discontinued, intact, bleeding controlled, No redness/swelling at site. Pressure em dressing applied. Administered Medications: 16:05 Drug: fentaNYL (PF) 25 mcg Route: IVP; Site: left forearm; hb 16:38 Follow up: Response: No adverse reaction; Pain is decreased em 17:45 Drug: fentaNYL (PF) 25 mcg Route: IM; Site: left deltoid; em 18:00 Follow up: Response: Medication administered at discharge. em Outcome: 17:20 Discharge ordered by MD. snw 17:59 Discharged to home via wheelchair. em 17:59 Condition: good 17:59 Discharge instructions given to patient, Instructed on discharge instructions, follow up and referral plans. Demonstrated understanding of instructions, follow-up care. 18:01 Patient left the ED. em Signatures: Dispatcher [employer] EDОльга Soto FNP-C [facility] Andrés Pappas LVN SUPERVISOR [employer]BBING em Kay Singleton, RN RN Betsey Petersonnna [facility] Neeru Andrew 3
--- NOTE | 2018-06-03 17:21 | EDPHYS ---
Physician Documentation [facility] Name: Jaswinder Roa Age: 62 yrs Sex: Male : 1955 Arrival Date: 06/03/2018 Time: 15:17 Bed 19 Private MD: ED Physician Anival Toussaint HPI: 06/03 15:46 This 62 yrs old Male presents to ER via EMS with complaints of Foot Pain. snw 15:46 The patient presents with pain, area of necrosis to distal right great toe, area of snw ulceration with erythema with poor cap refill and cool temp to plantar surface of toe. The complaints affect the dorsum of right foot. Context: The problem was sustained at home, resulted from a chronic condition, the patient can partially bear weight, the patient is able to ambulate. Onset: The symptoms/episode began/occurred 1 week(s) ago, and became worse yesterday, and became persistent. Modifying factors: The symptoms are alleviated by nothing. the symptoms are aggravated by nothing. Associated signs and symptoms: The patient has no apparent associated signs or symptoms. Treatment prior to arrival includes: no previous treatment. Severity of symptoms: At their worst the symptoms were moderate. The patient has experienced similar episodes in the past. The patient has been recently seen by a physician: The patient has been recently seen at the [facility] Emergency Department, yesterday, this week. pt with hx of rectal cancer with mets, smokes 1 ppd, no anticoagulants - pt states his doctors took him off because he has cancer.. Historical: - Allergies: 15:26 tramadol; em - Home Meds: 15:26 aspirin 81 mg Oral chew 1 tab once daily [Active]; lisinopril 5 mg Oral tab 1 tab once em daily [Active]; Plavix 75 mg Oral tab 1 tab once daily [Active]; Warfarin Oral [Active]; - PMHx: 15:26 DVT; Hypertension; rectal cancer with metastasis; em - PSHx: 15:26 right foot sx; em - Immunization history:: Adult Immunizations up to date, Last tetanus immunization: unknown. - Social history:: Smoking status: Patient uses tobacco products, smokes one pack cigarettes per day. - Ebola Screening: : Patient negative for fever greater than or equal to 101.5 degrees Fahrenheit, and additional compatible Ebola Virus Disease symptoms Patient denies exposure to infectious person Patient denies travel to an Ebola-affected area in the 21 days before illness onset No symptoms or risks identified at this time. ROS: 16:00 Constitutional: Negative for fever, chills, and weight loss, Eyes: Negative for injury, snw pain, redness, and discharge, ENT: Negative for injury, pain, and discharge, Neck: Negative for injury, pain, and swelling, Cardiovascular: Negative for chest pain, palpitations, and edema, Respiratory: Negative for shortness of breath, cough, wheezing, and pleuritic chest pain, Abdomen/GI: Negative for abdominal pain, nausea, vomiting, diarrhea, and constipation, Back: Negative for injury and pain, : Negative for injury, bleeding, discharge, and swelling, Neuro: Negative for headache, weakness, numbness, tingling, and seizure, Psych: Negative for depression, anxiety, suicide ideation, homicidal ideation, and hallucinations. 16:00 MS/extremity: Positive for foot pain - right. 16:00 Skin: Positive for black, cold toe. Exam: 16:00 Constitutional: This is a well developed, poorly nourished patient who is awake, snw alert, and in no acute distress, smells of cigarette smoke Head/Face: Normocephalic, atraumatic. Eyes: Pupils equal round and reactive to light, extra-ocular motions intact. Lids and lashes normal. Conjunctiva and sclera are non-icteric and not injected. Cornea within normal limits. Periorbital areas with no swelling, redness, or edema. ENT: Nares patent. No nasal discharge, no septal abnormalities noted. Tympanic membranes are normal and external auditory canals are clear. Oropharynx with no redness, swelling, or masses, exudates, or evidence of obstruction, uvula midline. Mucous membranes moist. Neck: Trachea midline, no thyromegaly or masses palpated, and no cervical lymphadenopathy. Supple, full range of motion without nuchal rigidity, or vertebral point tenderness. No Meningismus. Chest/axilla: Normal chest wall appearance and motion. Nontender with no deformity. No lesions are appreciated. Cardiovascular: Regular rate and rhythm with a normal S1 and S2. No gallops, murmurs, or rubs. Normal PMI, no JVD. No pulse deficits. Respiratory: Lungs have equal breath sounds bilaterally, clear to auscultation and percussion. No rales, rhonchi or wheezes noted. No increased work of breathing, no retractions or nasal flaring. Abdomen/GI: Soft, non-tender, with normal bowel sounds. No distension or tympany. No guarding or rebound. No evidence of tenderness throughout. Back: No spinal tenderness. No costovertebral tenderness. Full range of motion. Skin: Warm, dry with normal turgor. Dusky color with no rashes, + lesion to right great toe, but no evidence of cellulitis. Neuro: Awake and alert, GCS 15, oriented to person, place, time, and situation. Cranial nerves II-XII grossly intact. Motor strength 5/5 in all extremities. Sensory grossly intact. Cerebellar exam normal. Normal gait. Psych: Awake, alert, with orientation to person, place and time. Behavior, mood, and affect are within normal limits. Vital Signs: 15:17 BP 157 / 100; Pulse 93; Resp 18; Temp 98.3; Pulse Ox 100% on R/A; Pain 6/10; em 16:30 BP 148 / 98; Pulse 87; Resp 16; Pulse Ox 99% on R/A; em 17:59 BP 137 / 86; Pulse 79; Resp 20; Pulse Ox 100% on R/A; em MDM: 15:29 Patient medically screened. snw 17:21 Data reviewed: vital signs, nurses notes. Data interpreted: Pulse oximetry: on room air snw is 100 %. Interpretation: normal. Counseling: I had a detailed discussion with the patient and/or guardian regarding: the historical points, exam findings, and any diagnostic results supporting the discharge/admit diagnosis, the presence of at least one elevated blood pressure reading (>120/80) during this emergency department visit, lab results, radiology results, the need for outpatient follow up, smoking cessation. Special discussion: Based on the history and exam findings, there is no indication for further emergent testing or inpatient evaluation. vascular surgeon. 06/03 15:38 Order name: Basic Metabolic Panel; Complete Time: 16:33 snw 06/03 15:38 Order name: CBC with Diff; Complete Time: 16:33 snw 06/03 15:38 Order name: LFT's; Complete Time: 16:33 snw 06/03 15:38 Order name: Magnesium; Complete Time: 16:33 snw 06/03 15:38 Order name: NT PRO-BNP; Complete Time: 16:33 snw 06/03 15:38 Order name: PT-INR; Complete Time: 16:33 w 06/03 15:38 Order name: US LE Artery Uni Ltd; Complete Time: 17:22 snw 06/03 15:38 Order name: Troponin (emerg Dept Use Only); Complete Time: 16:33 snw 06/03 15:38 Order name: XRAY Chest (1 view); Complete Time: 16:25 w 06/03 15:38 Order name: EKG; Complete Time: 15:39 snw 06/03 15:38 Order name: Cardiac monitoring; Complete Time: 16:11 w 06/03 15:38 Order name: EKG - Nurse/Tech; Complete Time: 16:04 06/03 15:38 Order name: IV Saline Lock; Complete Time: 16:10 w 06/03 15:38 Order name: Labs collected and sent; Complete Time: 16:11 w 06/03 15:38 Order name: O2 Per Protocol; Complete Time: 16:10 w 06/03 15:38 Order name: O2 Sat Monitoring; Complete Time: 16:10 w 06/03 17:21 Order name: Wound dressing; Complete Time: 17:27 snw Administered Medications: 16:05 Drug: fentaNYL (PF) 25 mcg Route: IVP; Site: left forearm; hb 16:38 Follow up: Response: No adverse reaction; Pain is decreased em 17:45 Drug: fentaNYL (PF) 25 mcg Route: IM; Site: left deltoid; em 18:00 Follow up: Response: Medication administered at discharge. em Disposition: 18:09 Co-signature as Attending Physician, Anival Toussaint MD. rn Disposition: 06/03/18 17:20 Discharged to Home. Impression: Peripheral arterial disease. - Condition is Stable. - Discharge Instructions: Peripheral Vascular Disease, Steps to Quit Smoking, Smoking Hazards, Peripheral Neuropathy. - Medication Reconciliation Form, Thank You Letter, Antibiotic Education, Prescription Opioid Use form. - Follow up: Private Physician; When: 1 - 2 days; Reason: Recheck today's complaints, Continuance of care, Re-evaluation by your physician. Signatures: Dispatcher [facility] Ольга Mercado FNP-C CHILD NURSE-[facility] Andrés Pappas, CAPACITY PLANNING ANALYST CAPACITY PLANNING ANALYST em Anival Toussaint MD MD rn Baxter, Heather, RN RN hb Corrections: (The following items were deleted from the chart) 18:01 17:20 06/03/2018 17:20 Discharged to Home. Impression: Peripheral arterial disease. em Condition is Stable. Forms are Medication Reconciliation Form, Thank You Letter, Antibiotic Education, Prescription Opioid Use. Follow up: Private Physician; When: 1 - 2 days; Reason: Recheck today's complaints, Continuance of care, Re-evaluation by your physician. snw
[2018-06-03 18:16] VITALS: TEMP 98.3
[2018-06-03 18:18] VITALS: BP 137/86; O2SAT 100
--- NOTE | 2018-06-04 10:54 | EKG ---
Test Date: 2018-06-03 Test Time: 15:59:25 Medicine Man: IVORY MEASUREMENT RESULTS: Intervals: Rate: 80 WI: 182 QRSD: 84 QT: 384 QTc: 442 [place]: P: 86 WI: 182 QRS: 62 T: 64 INTERPRETIVE STATEMENTS: Sinus rhythm with occasional premature ventricular complexes Otherwise normal ECG Compared to ECG 02/05/2018 13:07:19 Ventricular premature complex(es) now present Electronically Signed On 06-04-18 10:53:08 METER TESTER POLYPHASE by Casimiro Epperson
== END 2018-06-03 18:01 | disposition home or self-care (01) ==
LOC: ER 15:11
DX: I73.9 Peripheral vascular disease, unspecified (principal); I10 Essential (primary) hypertension; C79.9 Secondary malignant neoplasm of unspecified site; Z85.048 Personal history of other malignant neoplasm of rectum, rectosigmoid junction, and anus; F17.210 Nicotine dependence, cigarettes, uncomplicated; Z79.82 Long term (current) use of aspirin; Z79.02 Long term (current) use of antithrombotics/antiplatelets; Z79.899 Other long term (current) drug therapy; Z86.718 Personal history of other venous thrombosis and embolism
CPT/HCPCS: 36415; 71045; 80048; 80076; 83735; 83880; 84484; 85025; 85610; 93005; 93926; 96372; 96374; 99284; J3010

== ENCOUNTER 2018-06-05 | Emergency (ER) | payer OTHER ==
--- OUTSIDE RECORDS SUMMARY | 2018-06-05 00:05 | XMS REPORT | Clinical Summary ---
:1955 Author Organization [facility] Address [address] [place] [address] Care Team Providers Name Role Phone Sharpless [...] Fadi Philippe COLONOSCOPY,POLYPECT MD Nixon GOPAL 02/05/2018 [facility] Cardiology Neena, - Encounter Elizabeth Paniagua MD 02/16/2018 Daniel Morin MD Daniel, Jamuna V., MD 01/25/2018 Surgery Michela, MOLYBDENUM STEAMER OPERATOR FEMORAL &/OR Timothy Paniagua MD POPLITEAL 01/23/2018 Anesthesia Event Ricardo Loyola MD 01/23/2018 [facility] Carmelo Mccallum, 01/28/2018 Jairo Ramírez MD 01/23/2018 Surgery Arthur Oconnor ANGIOGRAM-LOWER MD Amira EXTREMITY 12/06/2017 Office Visit Cardiology Arthur Oconnor Postoperative state MD Amira (Primary Dx) 11/17/2017 Surgery Arthur Oconnor BYPASS,FEMORAL-POPLI MD Amira TEAL 11/17/2017 Anesthesia Event Stefan Chase AA 11/17/2017 Orders Only General Internal Medicine 11/16/2017 [facility] Cardiology Arthur Oconnor Benign essential HTN - Encounter MD Amira (Primary Dx) 11/21/2017 after 06/04/2017 Immunizations Name Dates Previously Given Next Due [...] Taken Blood Pressure 110/76 05/29/2018 7:00 AM CHIEF CLERK Pulse 75 05/29/2018 10:09 AM CHIEF CLERK Temperature 37.1 C (98.7 F) 05/29/2018 7:00 AM CHIEF CLERK Respiratory Rate 20 05/29/2018 10:09 AM CHIEF CLERK Oxygen Saturation 98% 05/29/2018 10:09 AM CHIEF CLERK Inhaled Oxygen Concentration 21% 05/27/2018 8:20 PM CHIEF CLERK Weight 88.1 kg (194 lb 3.6 oz) 05/29/2018 5:00 AM CHIEF CLERK Height 188 cm (6' 2") 05/26/2018 12:30 PM CHIEF CLERK Body Mass Index 24.94 05/29/2018 5:00 AM CHIEF CLERK Plan of Treatment Date Type Specialty Care Team Description 05/23/2018 Anesthesia Event Cardiology Sujit García MD [address] [facility] [address] [place], [place] [id number] 06/13/2018 Office Visit Cardiology Arthur Oconnor MD [address] [facility] [phone] [place] [address] Health Maintenance Due Date Last Done Comments INFLUENZA VACCINE Completed 02/07/2018 Implants Implanted Type Area Channel Rebuilder Device Shelf Model / Identifier Expiration Serial / Date Lot Mynxgrip Cardiovascular Left: CARDINAL 11/23/2019 [id number] / Implanted: Qty: 1 on 01/25/2018 by Timothy Abernathy MD LYCEEM / [id number] Flseal Vhsd Full Strlprep 10ml [id number] - [id number] Cement/Filler/Adh Right: BUCHANAN:BIOSCI 04/11/2019 [id number] / Implanted: Qty: 1 on 11/17/2017 by Arthur Oconnor MD esive Leg / [id number] Floseal Vhsd Full Strlprep 5ml [id number] - [id number] Cement/Filler/Adh Right: BUCHANAN:BIOSCI 10/04/2019 [id number] / Implanted: Qty: 1 on 05/18/2018 by Arthur Oconnor MD esive Leg / [id number] Grft Eptfe-Heparin Rng [id number] - [id number] Graft/Patch Right: PRINCE OLIVIER & 08/08/2021 [id number] / Implanted: Qty: 1 on 11/17/2017 by Arthur Oconnor MD Leg ASSC:MED PRDT [id number] / Grft Eptfe-Heparin Rng [id number] - [id number] Graft/Patch Right: PRINCE GORE & 01/01/2022 [id number] / Implanted: Qty: 1 on 05/18/2018 by Arthur Oconnor MD Leg ASSC:MED PRDT [id number] / Procedures Procedure Name Priority Date/Time Associated Comments Diagnosis CBC W/PLT COUNT & AUTO Routine 05/29/2018 5:11 Results for this DIFFERENTIAL AM CHIEF CLERK procedure are in the results section. COMPREHENSIVE Routine 05/29/2018 5:11 Results for this METABOLIC PANEL AM CHIEF CLERK procedure are in the results section. CBC W/PLT COUNT & AUTO Routine 05/29/2018 5:11 Results for this DIFFERENTIAL AM CHIEF CLERK procedure are in the results section. CBC W/PLT COUNT & AUTO Routine 05/28/2018 4:21 Results for this DIFFERENTIAL AM CHIEF CLERK procedure are in the results section. COMPREHENSIVE Routine 05/28/2018 4:21 Results for this METABOLIC PANEL AM CHIEF CLERK procedure are in the results section. CBC W/PLT COUNT & AUTO Routine 05/28/2018 4:21 Results for this DIFFERENTIAL AM CHIEF CLERK procedure are in the results section. CBC W/PLT COUNT & AUTO Routine 05/27/2018 5:48 Results for this DIFFERENTIAL AM CHIEF CLERK procedure are in the results section. CBC W/PLT COUNT & AUTO Routine 05/27/2018 5:48 Results for this DIFFERENTIAL AM CHIEF CLERK procedure are in the results section. CBC W/PLT COUNT & AUTO Routine 05/26/2018 3:56 Results for this DIFFERENTIAL AM CHIEF CLERK procedure are in the results section. CBC W/PLT COUNT & AUTO Routine 05/26/2018 3:56 Results for this DIFFERENTIAL AM CHIEF CLERK procedure are in the results section. CBC W/PLT COUNT & AUTO Routine 05/25/2018 4:59 Results for this DIFFERENTIAL AM CHIEF CLERK procedure are in the results section. MAGNESIUM Routine 05/25/2018 4:59 Results for this AM CHIEF CLERK procedure are in the results section. BASIC METABOLIC PANEL Routine 05/25/2018 4:59 Results for this (7) AM CHIEF CLERK procedure are in the results section. CBC W/PLT COUNT & AUTO Routine 05/25/2018 4:59 Results for this DIFFERENTIAL AM CHIEF CLERK procedure are in the results section. CBC W/PLT COUNT & AUTO STAT 05/24/2018 12:50 Results for this DIFFERENTIAL PM CHIEF CLERK procedure are in the results section. MAGNESIUM STAT 05/24/2018 12:50 Results for this PM CHIEF CLERK procedure are in the results section. BASIC METABOLIC PANEL STAT 05/24/2018 12:50 Results for this (7) PM CHIEF CLERK procedure are in the results section. CBC W/PLT COUNT & AUTO STAT 05/24/2018 12:50 Results for this DIFFERENTIAL PM CHIEF CLERK procedure are in the results section. REPORT OF PROCEDURE - 05/23/2018 5:13 ENDOSCOPY URL PM CHIEF CLERK SIGMOIDOSCOPY 05/23/2018 1:00 Rectal bleeding PM CHIEF CLERK Special Needs flex sig w/ anes CBC W/PLT COUNT & Routine 05/23/2018 4:47 AM Results for this AUTO DIFFERENTIAL CHIEF CLERK procedure are in the results section. MAGNESIUM Routine 05/23/2018 4:47 AM Results for this CHIEF CLERK procedure are in the results section. BASIC METABOLIC PANEL Routine 05/23/2018 4:47 AM Results for this (7) CHIEF CLERK procedure are in the results section. CBC W/PLT COUNT & Routine 05/23/2018 4:47 AM Results for this AUTO DIFFERENTIAL CHIEF CLERK procedure are in the results section. HEMOGLOBIN AND Routine 05/22/2018 4:46 PM Results for this HEMATOCRIT CHIEF CLERK procedure are in the results section. CBC W/PLT COUNT & STAT 05/22/2018 12:27 PM Results for this AUTO DIFFERENTIAL CHIEF CLERK procedure are in the results section. MAGNESIUM STAT 05/22/2018 12:27 PM Results for this CHIEF CLERK procedure are in the results section. CBC W/PLT COUNT & STAT 05/22/2018 12:27 PM Results for this AUTO DIFFERENTIAL CHIEF CLERK procedure are in the results section. BASIC METABOLIC PANEL STAT 05/22/2018 12:27 PM Results for this (7) CHIEF CLERK procedure are in the results section. BASIC METABOLIC PANEL Routine 05/20/2018 4:31 AM Results for this (7) CHIEF CLERK procedure are in the results section. TRANSFUSION SERVICE 05/19/2018 5:50 PM REPORT - SCAN CHIEF CLERK CBC W/PLT COUNT & Routine 05/19/2018 6:24 AM Results for this AUTO DIFFERENTIAL CHIEF CLERK procedure are in the results section. CBC W/PLT COUNT & Routine 05/19/2018 6:24 AM Results for this AUTO DIFFERENTIAL CHIEF CLERK procedure are in the results section. BASIC METABOLIC PANEL Routine 05/19/2018 6:24 AM Results for this (7) CHIEF CLERK procedure are in the results section. 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 TYPE AND SCREEN, AUTOMATED Routine 05/18/2018 5:32 AM CHIEF CLERK LIPID PANEL Routine 05/18/2018 5:32 AM CHIEF CLERK CBC W/PLT COUNT & AUTO Routine 05/18/2018 5:32 AM CHIEF CLERK Results for this DIFFERENTIAL procedure are in the results section. BASIC METABOLIC PANEL (7) Routine 05/18/2018 5:32 AM CHIEF CLERK XR CHEST 1 VIEW Routine 05/17/2018 9:48 PM CHIEF CLERK Results for this PORTABLE/BEDSIDE procedure are in the results section. VENOUS DOPPLER LEGS STAT 05/17/2018 9:15 PM CHIEF CLERK Results for this BILATERAL procedure are in the results section. ECG 12-LEAD Routine 05/17/2018 8:08 PM CHIEF CLERK Procedure Note - Interface, External Ris In - 05/17/2018 8:12 PM CHIEF CLERK Ventricular Rate 88 BPM Atrial Rate 88 BPM P-R Interval 186 ms QRS Duration 90 ms Q-T Interval 366 ms QTC Calculation(Bazett) 442 ms P Moran 58 degrees R Moran 51 degrees T Moran 56 degrees Normal sinus rhythm Normal ECG No previous ECGs available ECG 12-LEAD Routine 05/17/2018 8:08 PM Results for this CHIEF CLERK procedure are in the results section. ECG 12-LEAD Routine 05/17/2018 8:08 PM Results for this CHIEF CLERK procedure are in the results section. PT/APTT Routine 05/17/2018 6:30 PM Results for this CHIEF CLERK procedure are in the results section. PROTHROMBIN TIME/INR Routine 05/17/2018 6:30 PM Results for this CHIEF CLERK procedure are in the results section. CBC W/PLT COUNT & AUTO Routine 05/17/2018 6:08 PM Results for this DIFFERENTIAL CHIEF CLERK procedure are in the results section. PHOSPHORUS Routine 05/17/2018 6:08 PM Results for this CHIEF CLERK procedure are in the results section. MAGNESIUM Routine 05/17/2018 6:08 PM Results for this CHIEF CLERK procedure are in the results section. HEPATIC FUNCTION PANEL Routine 05/17/2018 6:08 PM Results for this CHIEF CLERK procedure are in the results section. CBC W/PLT COUNT & AUTO Routine 05/17/2018 6:08 PM Results for this DIFFERENTIAL CHIEF CLERK procedure are in the results section. BASIC METABOLIC PANEL Routine 05/17/2018 6:08 PM Results for this (7) CHIEF CLERK procedure are in the results section. VASCULAR [...] CDT procedure are in the results section. 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 552mGy POCT-ACT Routine [...] CDT procedure are in the results section. MOLYBDENUM STEAMER OPERATOR FEMORAL &/OR 01/25/2018 4:04 Peripheral vascular POPLITEAL PM CDT disease, unspecified (HCC) Case Notes 1019 Rt arteriogram possible oil tanker captain of the rt leg POCT-GLUCOSE METER [...] 450 ms QTC Calculation(Bazett) 422 ms P Moran 49 degrees R Moran 48 degrees T Moran 55 degrees Sinus bradycardia Otherwise normal ECG [...] procedure are in the results section. after 06/04/2017 Results CBC with platelet count + automated diff (05/29/2018 5:11 AM CHIEF CLERK)Only the most recent of16 resultswithin the time period is included. WBC 6.3 3.5 - 10.5 K/L [facility] RBC 3.55 (L) 4.63 - 6.08 M/L [facility] Hemoglobin 10.5 (L) 13.7 - 17.5 GM/DL [facility] Hematocrit 32.7 (L) 40.1 - 51.0 % [facility] MCV 92.1 79.0 - 92.2 fL [facility] MCH 29.6 25.7 - 32.2 pg [facility] MCHC 32.1 (L) 32.3 - 36.5 GM/DL [facility] RDW 14.2 11.6 - 14.4 % [facility] Platelets 363 150 - 450 K/CU MM [facility] MPV 8.6 (L) 9.4 - 12.4 fL [facility] nRBC 0 0 - 0 /100 WBC [facility] % Neutros 73 % [facility] % Lymphs 20 % [facility] % Monos 5 % [facility] % Eos 2 % [facility] % Baso 1 % [facility] # Neutros 4.55 1.78 - 5.38 K/L [facility] # Lymphs 1.24 (L) 1.32 - 3.57 K/L [facility] # Monos 0.31 0.30 - 0.82 K/L [facility] # Eos 0.13 0.04 - 0.54 K/L [facility] # Baso 0.03 0.01 - 0.08 K/L [facility] Immature Granulocytes-Relative 0 0 - 1 % [facility] Specimen Blood Performing Organization Address City/State/Zipcode Phone Number [facility] [address] [place] [address] CENTER Comprehensive metabolic panel (05/29/2018 5:11 AM CHIEF CLERK)Only the most recent of3 resultswithin the time period is included. Protein, Total 5.9 (L) 6.0 - 8.3 gm/dL [facility] Albumin 3.1 (L) 3.5 - 5.0 g/dL [facility] Alkaline Phosphatase 61 40 - 150 U/L [facility] Total Bilirubin 0.2 0.2 - 1.2 mg/dL [facility] Sodium 139 136 - 145 meq/L [facility] Potassium 4.7 3.5 - 5.1 meq/L [facility] Chloride 109 (H) 98 - 107 meq/L [facility] CO2 24 22 - 29 meq/L [facility] BUN 21 7 - 21 mg/dL [facility] Creatinine 1.61 (H) 0.57 - 1.25 mg/dL [facility] Glucose 101 70 - 105 mg/dL [facility] Calcium 8.4 8.4 - 10.2 mg/dL [facility] AST 12 5 - 34 U/L [facility] ALT 6 6 - 55 U/L [facility] EGFR 44Comment: ESTIMATED GFR mL/min/1.73 sq m [facility] IS NOT ACCURATE [facility] CREATININE CLEARANCE IN PREDICTING GLOMERULAR FILTRATION RATE. ESTIMATED GFR IS NOT APPLICABLE FOR DIALYSIS PATIENTS. Specimen Blood Performing Organization Address City/[facility]/Zipcode Phone Number [facility] [address] [place] [address] CENTER Magnesium (05/25/2018 4:59 AM CHIEF CLERK)Only the most recent of13 resultswithin the time period is included. Magnesium 2.2Comment: Specimen slightly 1.6 - 2.6 mg/dL [facility] hemolyzed [facility] Specimen Blood - Arm, Right Performing Organization Address City/State/Zipcode Phone Number [place] [phone] [place] [address] [phone] [place] Basic Metabolic Panel (05/25/2018 4:59 AM CHIEF CLERK)Only the most recent of30 resultswithin the time period is included. Sodium 142 136 - 145 meq/L [facility] Potassium 4.6Comment: Specimen slightly 3.5 - 5.1 meq/L [facility] hemolyzed [facility] Chloride 111 (H) 98 - 107 meq/L [facility] CO2 24 22 - 29 meq/L [facility] BUN 14 7 - 21 mg/dL [facility] Creatinine 1.63 (H)Comment: Specimen 0.57 - 1.25 mg/dL [facility] slightly hemolyzed [facility] Glucose 102 70 - 105 mg/dL [facility] Calcium 8.7 8.4 - 10.2 mg/dL [facility] EGFR 43Comment: ESTIMATED GFR IS mL/min/1.73 sq m [facility] NOT ACCURATE [facility] CENTER CLEARANCE IN PREDICTING GLOMERULAR FILTRATION RATE. ESTIMATED GFR IS NOT APPLICABLE FOR DIALYSIS PATIENTS. Specimen Blood - Arm, Right Performing Organization Address City/[facility] Phone Number [address] [address] [place] REPORT OF PROCEDURE - ENDOSCOPY URL (05/23/2018 5:13 PM CHIEF CLERK) Narrative Performed At Hemoglobin and hematocrit (05/22/2018 4:46 PM CHIEF CLERK)Only the most recent of3 resultswithin the time period is included. Hemoglobin 11.2 (L) 13.7 - 17.5 GM/DL [facility] Hematocrit 33.7 (L) 40.1 - 51.0 % [facility] Specimen Blood Performing Organization Address City/[facility]/Zipcode Phone Number [address] [address] [phone] [place] TRANSFUSION SERVICE REPORT - SCAN (05/19/2018 5:50 PM CHIEF CLERK)Only the most recent of6 resultswithin the time period is included. Narrative Performed At Type and screen, automated (05/18/2018 5:32 AM CHIEF CLERK)Only the most recent of4 resultswithin the time period is included. ABO/RH AUTOMATED (BEAKER) A POSITIVE [facility] Ab Scrn NEGATIVE [facility] Specimen Blood Performing Organization Address [facility] Phone Number [facility] [address] [place] [phone] Lipid panel (05/18/2018 5:32 AM CHIEF CLERK)Only the most recent of2 resultswithin the time period is included. Triglycerides 65 mg/dL [facility] Cholesterol 129 mg/dL [facility] HDL 30 mg/dL [facility] LDL Calculated 86 mg/dL [facility] Specimen Blood Narrative Performed At Triglyceride Reference Range: [facility] Low Risk <150 [id number] High Risk 200-499 Very High Risk>=500 Cholesterol Reference Range: Low Risk <200 [id number] High Risk>240 HDL Cholesterol Reference Range: Low Risk >=60 High Risk <40 LDL Cholesterol Reference Range: Optimal<100 Near [id number] [id number] Limk201-062 Very High >=190 Performing Organization Address City/[facility]/Zipcode Phone Number [facility] [address] [place] [address] [place] XR chest 1 view portable / bedside (05/17/2018 9:48 PM CHIEF CLERK)Only the most recent of3 resultswithin the time period is included. Narrative Performed At FINAL REPORT [facility] Chest, one view. HISTORY: Preoperative COMPARISON: Radiograph [...] MD Report Verified Date/Time:05/17/2018 23:59:18 Reading Location: [facility] [address] Consult Reading Room Procedure Note Interface, External Ris In - 05/18/2018 12:01 AM CHIEF CLERK FINAL REPORT Chest, one view. HISTORY: Preoperative [...] Report Verified Date/Time: 05/17/2018 23:59:18 Reading Location: [facility] C013W Consult Reading Room Performing Organization Address City/State/Zipcode Phone Number RIS Venous doppler legs bilateral (05/17/2018 9:15 PM CHIEF CLERK) Ejection Fraction [facility] Impressions Performed At Right Impression [facility] 1. There is [...] [facility] LAB - Lower Extremities DVT Study [facility] Demographics Patient NameViet RANDALL of Study 05/17/2018 ESTEFANIA 62 Visit [id number] Male of 1955 Referring Sreekanth Davies, FELRoom Number SCPR Physician V Belt Finisher Rey Martinez Physician Procedure Type of Study: [...] External Ris In - 05/18/2018 5:02 PM CHIEF CLERK PV LAB - Lower Extremities DVT Study Demographics Patient Name JASWINDER RANDALL Date of Study 05/17/2018 ESTEFANIA Age 62 Visit Number [id number] Gender Male Accession Number [id number] Date of 1955 Referring JOHN Chavez Room Number SCPR Physician V Belt Finisher Rye Ortiz Interpreting Ananya Martinez, Physician Procedure Type [...] City/State/Zipcode Phone Number [facility] Electrocardiogram, 12-lead (05/17/2018 8:08 PM CHIEF CLERK)Only the most recent of3 resultswithin the time period is included. Narrative Performed At Ventricular Rate 88 BPM GE MUSE Atrial Rate 88 BPM P-R Interval 186 ms QRS Duration 90 ms Q-T Interval 366 ms QTC Calculation(Bazett) 442 ms P Moran 58 degrees R Moran 51 degrees T Moran 56 degrees Normal sinus rhythm Normal ECG No previous ECGs available Confirmed by MD TORRES JOSEPH P ([id number]) on 05/18/2018 6:38:12 AM Procedure Note Interface, External Ris In - 05/18/2018 6:38 AM CHIEF CLERK Ventricular Rate 88 BPM Atrial Rate 88 BPM P-R Interval 186 ms QRS Duration 90 ms Q-T Interval 366 ms QTC Calculation(Bazett) 442 ms P Moran 58 degrees R Moran 51 degrees T Moran 56 degrees Normal sinus rhythm Normal ECG No previous ECGs available Confirmed by MD TORRES JOSEPH P ([id number]) on 05/18/2018 6:38:12 AM Performing Organization Address City/[facility] Phone Number [facility] PT/aPTT (05/17/2018 6:30 PM CHIEF CLERK)Only the most recent of2 resultswithin the time period is included. Protime 13.0 11.7 - 14.7 seconds [facility] INR 1.0 <=5.9 [facility] PTT 30.3 22.5 - 36.0 seconds [facility] Specimen Blood Narrative Performed At RECOMMENDED COUMADIN/WARFARIN INR THERAPY [facility] RANGES STANDARD DOSE: 2.0 - 3.0 Includes: PROPHYLAXIS for venous thrombosis, systemic embolization; TREATMENT for venous thrombosis and/or pulmonary embolus. HIGH RISK: Target INR is 2.5-3.5 for patients with mechanical heart valves. Performing Organization Address City/[facility] Phone Number [address] [address] [phone] CENTER Prothrombin time/INR (05/17/2018 6:30 PM CHIEF CLERK)Only the most recent of12 resultswithin the time period is included. Protime 13.0 11.7 - 14.7 seconds [facility] INR 1.0 <=5.9 [facility] Specimen Blood Narrative Performed At RECOMMENDED COUMADIN/WARFARIN INR THERAPY [facility] RANGES STANDARD DOSE: 2.0 - 3.0 Includes: PROPHYLAXIS for venous thrombosis, systemic embolization; TREATMENT for venous thrombosis and/or pulmonary embolus. HIGH RISK: Target INR is 2.5-3.5 for patients with mechanical heart valves. Performing Organization Address City/[facility] Phone Number [address] [address] [place] Phosphorus (05/17/2018 6:08 PM CHIEF CLERK)Only the most recent of3 resultswithin the time period is included. Phosphorus 3.0 2.3 - 4.7 mg/dL [facility] Specimen Blood Performing Organization Address [facility] Phone Number [address] [address] [place] Hepatic function panel (05/17/2018 6:08 PM CHIEF CLERK)Only the most recent of2 resultswithin the time period is included. Protein, Total 7.1 6.0 - 8.3 gm/dL [facility] Albumin 3.9 3.5 - 5.0 g/dL [facility] Total Bilirubin 0.3 0.2 - 1.2 mg/dL [facility] Bilirubin, Direct 0.1 0.1 - 0.5 mg/dL [facility] Alkaline Phosphatase 93 40 - 150 U/L [facility] AST 16 5 - 34 U/L [facility] ALT 11 6 - 55 U/L [facility] Specimen Blood Performing Organization Address [facility] Phone Number [address] [address] [place] VASCULAR DIAGRAM -SCAN (02/17/2018 10:50 AM CDT) Narrative Performed At CARDIAC CATH REPORT - SCAN (02/17/2018 10:50 AM CDT) Narrative Performed At RHYTHM STRIP - SCAN (02/17/2018 10:50 AM CDT)Only the most recent of3 resultswithin the time period is included. Narrative Performed At IR Port-a-Cath Placement (02/16/2018 12:54 PM CDT) Narrative Performed At FINAL REPORT [employer] [facility] Right internal jugular chest port insertion History: Patient requires access for chemotherapy. Modality: Sonography and fluoroscopy. Sedation: Versed 1.5 mg and fentanyl 75 mcg given intravenously for conscious sedation.Vital signs were monitored throughout the procedure by a nurse, and remained stable. Physician intra-service time was 25 minutes. Breeding Technician:Peña Zepeda MD Salesperson Shoes:Jose Martin. Approach: Right internal jugular vein Estimated [...] needle into the right atrium. A 4 Bengali micropuncture sheath was placed. A subcutaneous tunnel [...] MD Report Verified Date/Time:02/16/2018 18:32:11 Reading Location: [place] [address] Angio Body Reading Room Procedure Note Interface, [...] stable. Physician intra-service time was 25 minutes. Breeding Technician: Peña Zepeda MD Salesperson Shoes: Jose Martin. Approach: Right internal jugular vein [...] needle into the right atrium. A 4 Bengali micropuncture sheath was placed. A subcutaneous tunnel [...] Report Verified Date/Time: 02/16/2018 18:32:11 Reading Location: [place] [address] Angio Body Reading Room Performing Organization Address City/State/Zipcode Phone Number GE RIS CBC (Hemogram only) (02/16/2018 5:26 AM CDT)Only the most recent of16 resultswithin the time period is included. WBC 6.6 3.5 - 10.5 K/L [facility] RBC 2.98 (L) 4.63 - 6.08 M/L [facility] Hemoglobin 8.9 (L) 13.7 - 17.5 GM/DL [facility] Hematocrit 28.6 (L) 40.1 - 51.0 % [facility] MCV 96.0 (H) 79.0 - 92.2 fL [facility] MCH 29.9 25.7 - 32.2 pg [facility] MCHC 31.1 (L) 32.3 - 36.5 GM/DL [facility] RDW 14.7 (H) 11.6 - 14.4 % [facility] Platelets 206 150 - 450 K/CU MM [facility] MPV 8.9 (L) 9.4 - 12.4 fL [facility] nRBC 0 0 - 0 /100 WBC [facility] Specimen Blood - Arm, Right Performing Organization Address [facility]/Zipcode Phone Number [facility] [address] [place] [address] [phone] CENTER REPORT OF PROCEDURE - ENDOSCOPY URL (02/15/2018 1:01 PM CDT) Narrative Performed At FINE NEEDLE ASPIRATE (FNA) REQUEST (02/15/2018 11:03 AM CDT) Cytology See Separate Report [facility] Specimen Fine Needle Aspirate - Liver Performing Organization Address [facility] Phone Number [facility] [address] [place] [address] CENTER Fine Needle Aspirate by Clinician (02/15/2018 11:03 AM CDT) Case Report Medical Cytology Report Case: [id number] [facility] Authorizing Provider:Fadi Philippe MDCollected: 02/15/2018 1103 [facility] Ordering Location: [address] Received: 02/16/2018 0959 Service Pathologist: Yas Townsend Specimen:Liver, Liver mass FNA in CRR for cytology DIAGNOSIS LIVER MASS FNA BY CLINICIAN (CYTOSPINS AND CELL BLOCK OF ASPIRATE): [facility] - POSITIVE FOR MALIGNANCY, MORPHOLOGICALLY COMPATIBLE WITH RECTAL CARCINOMA PRIMARY [facility] Signing Pathologist Direct Phone Line: [phone] COMMENT Cytospins show clusters of benign appearing hepatocytes. The cell block show predominantly hepatic parenchyma with a focal attached area of atypical glands with hyperchromatic and pleomorphic nuclei. [facility] The previous case, [id number] is reviewed and shows similar features. [facility] Intradepartmental Consultation: Noy Bailey MD has reviewed the case and agrees with the findings. CPT Code(s) 54740, 75500 [facility] CLINICAL DATA (1.3 x 0.9 cm) round mass in [facility] the left lobe of the liver, [facility] recently diagnosed with rectal cancer(see [id number]) SPECIMEN SOURCE LIVER MASS FNA [facility] GROSS DESCRIPTION 27 mls in cytorich red; 4 cytospins, cell block [facility] Collected: [id number] [facility] Received: [id number] Technical component was [facility] performed at [place], Department of [facility] Pathology, [address] [place] [address], Professional component [facility] was performed at [place], Department of [facility] Pathology, [address] [place] [address], Specimen Fine Needle Aspirate - Liver Narrative Performed At Performing Organization Address City/State/Zipcode Phone Number [address] [address] [phone] CENTER Tissue Exam (02/15/2018 10:55 AM CDT)Only the most recent of4 resultswithin the time period is included. Case Report Surgical Pathology Report Case: [id number] [facility] Authorizing Provider:Fadi Philippe MDCollected: 02/15/2018 1055 [facility] Ordering Location: [address] Received: 02/15/2018 1604 Service Pathologist: Timothy Mendoza MD Specimen:Liver, Liver Mass DIAGNOSIS LIVER MASS, ULTRASOUND-GUIDED CORE NEEDLE BIOPSY: [facility] - FRAGMENTED CORES OF BENIGN LIVER PARENCHYMA [facility] - MINIMAL STEATOSIS (LESS THAN 1%) - MINIMAL PERIPORTAL FIBROSIS - NEGATIVE FOR MALIGNANCY (SEE COMMENT) Signing Pathologist Direct Phone Line: [phone] COMMENT Clinical and radiographic [facility] correlation is recommended [facility] to determine if this represents the lesion. CPT Code(s) 48728, 80452 x 2 [facility] CLINICAL HISTORY Rectal cancer [facility] SPECIMEN SOURCE Liver mass [facility] GROSS DESCRIPTION The specimen is received in [facility] a formalin-filled container [facility] and labeled with the patient's information and [...] the fragmented nature of the specimen, it [facility] is difficult to appreciate architectural distortion. There is no bile ductular proliferation or reaction seen. Special stain trichrome and reticulin is performed with appropriately reactive controls on [facility] A1 and trichrome highlights minimal periportal fibrosis; reticulin shows preserved normal hepatic trabecular architecture. SPECIAL STUDIES The following special studies were performed on this case and the interpretation is incorporated in the diagnostic report above: [facility] The following special studies were performed on this case and the interpretation is incorporated in the diagnostic report above: trichrome, reticulin. [facility] Specimen Tissue - Liver Performing Organization Address City/State/Zipcode Phone Number [address] LIMITED/LOCALIZED FOLLOW-UP (02/14/2018 10:40 AM CDT) Narrative Performed At Addendum Begins [employer] REPORT STATUS:A This exam was performed according to our departmental dose optimization program which includes automated exposure control, adjustment of the mA and/or kV according to patient size and/or use of iterative reconstructive technique. Signed: Jessica Wise MD Report Verified Date/Time:02/27/2018 08:10:53 Reading Location: [facility] Diagnostic Imaging Reading Room - [place] [address] Addendum Ends FINAL REPORT History: Liver masses COMPARISON: CT dated 02/09/2018 and an ultrasound dated 02/13/2018 DISCUSSION: The hepatic lesions were unable to be previously seen under ultrasound and therefore, the patient was sent to CT for potential biopsy under CT guidance. A ice guard skating rink image was obtained prior to the biopsy procedure. The previously seen nodular foci within the liver are not well delineated on the ice guard skating rink images. Some poorly seen hypodense foci are seen towards the hepatic dome. Attempted visualization was made during real-time CT fluoroscopy. However, due to the patient's breathing as well as the small size and location of the lesions within liver, no focal lesion could be localized reliably for a safe CT guided biopsy. Signed: Jessica Wise MD Report Verified Date/Time:02/14/2018 16:38:16 Reading Location: [address] Body Reading Room Procedure Note Interface, External Ris In - 02/27/2018 8:13 AM CHIEF CLERK Addendum Begins REPORT STATUS:A This exam was performed according to our departmental dose optimization program which includes automated exposure control, adjustment of the mA and/or kV according to patient size and/or use of iterative reconstructive technique. Signed: Jessica Wise MD Report Verified Date/Time: 02/27/2018 08:10:53 Reading Location: [facility] Diagnostic Imaging Reading Room - [facility] F1 1120 Addendum Ends FINAL REPORT History: Liver masses COMPARISON: CT dated 02/09/2018 and an ultrasound dated 02/13/2018 DISCUSSION: The hepatic lesions were unable to be previously seen under ultrasound and therefore, the patient was sent to CT for potential biopsy under CT guidance. A ice guard skating rink image was obtained prior to the biopsy procedure. The previously seen nodular foci within the liver are not well delineated on the ice guard skating rink images. Some poorly seen hypodense foci are seen towards the hepatic dome. Attempted visualization was made during real-time CT fluoroscopy. However, due to the patient's breathing as well as the small size and location of the lesions within liver, no focal lesion could be localized reliably for a safe CT guided biopsy. Signed: Jessica Wise MD Report Verified Date/Time: 02/14/2018 16:38:16 Reading Location: [facility] C013Y CT Body Reading Room Performing Organization Address City/State/Zipcode Phone Number [employer] US abdomen limited (02/13/2018 12:00 PM CDT) Narrative Performed At FINAL REPORT [employer] Ultrasound of abdomen, limited INDICATION: Liver mass COMPARISON: CT dated February 09, 2018 FINDINGS: Sonographic evaluation of the liver is performed in preparation for biopsy of liver lesion seen on recent CT. However, no focal lesion is identified on ultrasound and biopsy was not performed. Signed: Joanne Diaz MD Report Verified Date/Time:02/14/2018 07:47:16 Reading Location: [facility] Radiology Reading Room Procedure Note Interface, [...] Report Verified Date/Time: 02/14/2018 07:47:16 Reading Location: [facility] Radiology Reading Room Performing Organization Address City/State/Zipcode Phone Number [employer] Venous doppler arm, left (02/11/2018 3:54 PM CDT) Ejection Fraction [facility] Impressions Performed At Right Impression [facility] [employer] [employer] CPACS NOT ORDRED Left Impression 1. There [...] Upper Extremities Veins [facility] Demographics Patient Name JASWINDER RANDALL Date of Study 02/11/2018 ESTEFANIA [id number] Age 62 Visit Number [id number] GenderMale Accession Number [id number] Date of 1955 Herman Inman Norma Number 1034 Physician SonographerAlka Bhatti InterpretingTori Moncada MD, RVT Physician RPVI Procedure Type of Study: Veins: Upper Extremities Veins, VENOUS DOPPLER ARM, LEFT. Indications for Study:SP MIDLINE PLACEMENT/INFILTRATION and Tenderness. Patient Status:Routine. Study Location:Vascular Lab. Technical Quality:Adequate visualization. - Results were reported to:Dr. Sampson paged- no answer, Results given to ELENA Calix @ 2913. Risk Factors History of Disease + +----+ + !Diagnosis !Date!Comments ! + +----+ + !History/Risk!!HTN, PVD, H/o CKD, Current Smoker, PAD (Fem-Pop ! !Factors:!!BPG) ! + +----+ + Procedure Note Interface, External Ris In - 02/12/2018 4:10 AM CDT PV LAB - Upper Extremities Veins Demographics Patient Name JASWINDER RANDALL Date of Study 02/11/2018 ESTEFANIA Age 62 Visit Number [id number] Gender Male Accession Number [id number] Date of 1955 Referring Adrián Inman MD Room Number 1034 Physician V Belt Finisher Alka Bhatti Interpreting Tori Moncada MD, RVT Physician RPVI Procedure Type of Study: Veins: Upper Extremities Veins, VENOUS DOPPLER ARM, LEFT. Indications for Study:SP MIDLINE PLACEMENT/INFILTRATION and Tenderness. Patient Status:Routine. Study Location:Vascular Lab. Technical Quality:Adequate visualization. - Results were reported to:Dr. Sampson paged- no answer, Results given to ELENA Calix @ 4334. Risk Factors History of Disease + +----+ [...] are measured in cm Performing Organization Address City/[facility] Phone Number [facility] Iron, TIBC, % sat. (without ferritin) (02/10/2018 5:36 AM CDT) Iron 26 (L) 40 - 160 ug/dL [facility] TIBC 274 250 - 450 ug/dL [facility] Iron % Saturation 9 (L) 20 - 55 % [facility] Specimen Blood - Arm, Right Performing Organization Address City/[facility]/Zipcode Phone Number [facility] [address] [place] [address] CENTER Vitamin D, 25-Hydroxy (02/10/2018 5:36 AM CDT) Vitamin D 25-Hydroxy 10.7 6.6 - 49.9 ng/mL [facility] Specimen Blood - Arm, Right Narrative Performed At [facility] Effective 02/02/2017: Reference Range Change New: 6.6-49.9 ng/mL Previous: 13.0-47.8 ng/mL Recommended Vitamin D Target Range: 30.0-40.0 ng/mL Performing Organization Address [facility] Phone Number [address] [address] CENTER Uric acid (02/10/2018 5:36 AM CDT) Uric Acid 6.2 2.6 - 7.2 mg/dL [facility] Specimen Blood - Arm, Right Performing Organization Address [facility] Phone Number [address] [address] [place] Protein electrophoresis, serum (02/10/2018 5:36 AM CDT) Albumin Fraction 2.6 (L) 3.5 - 5.5 g/dL [facility] Alpha 1 Fraction 0.2 0.2 - 0.4 g/dL [facility] Alpha 2 Fraction 0.6 0.5 - 0.9 g/dL [facility] Beta Fraction 0.9 0.6 - 1.1 g/dL [facility] Gamma Globulin Fraction 0.7 0.7 - 1.7 g/dL [facility] Interpretation Decreased albumin, [facility] suggestive of protein [facility] loss. Pattern otherwise consistent with mild acute inflammatory response. No monoclonal bands detected. Pathologist: Lilly Harris MD [facility] (electronic signature) [facility] Protein, Total 5.0 (L) 6.0 - 8.3 gm/dL [facility] Specimen Blood - Arm, Right Performing Organization Address [facility] Phone Number [address] [address] CENTER PTH, intact (02/10/2018 5:36 AM CDT) PTH 78.6 (H) 8.5 - 72.5 pg/mL [facility] Specimen Blood - Arm, Right Performing Organization Address [facility]/Zipcode Phone Number [facility] [address] [place], [place] [address] [phone] [place] Ferritin (02/10/2018 5:36 AM CDT) Ferritin 36 5 - 275 ng/mL [facility] Specimen Blood - Arm, Right Performing Organization Address [facility] Phone Number [address] [address] [place] Carcinoembryonic Antigen (CEA) (02/10/2018 5:36 AM CDT) CEA, SERUM 2.6 0.0 - 5.0 ng/mL [facility] Specimen Blood - Arm, Right Performing Organization Address [facility] Phone Number [address] [phone] [place] CT abdomen/pelvis with IV contrast (02/09/2018 11:18 PM CDT) Narrative Performed At FINAL REPORT [facility] CT, CHEST, WITH CONTRAST, CT, ABDOMEN \\T\\ [...] MD Report Verified Date/Time:02/10/2018 00:28:46 Reading Location: [facility] C[facility] CT Body Reading Room Procedure Note [...] Report Verified Date/Time: 02/10/2018 00:28:46 Reading Location: [facility] [address] Body Reading Room Performing Organization Address City/State/Zipcode Phone Number [employer] CT chest with IV contrast (02/09/2018 11:18 PM CDT) Narrative Performed At FINAL REPORT [employer] CT, CHEST, WITH CONTRAST, CT, ABDOMEN \\T\\ [...] TELLEZ Report Verified Date/Time:02/10/2018 00:28:46 Reading Location: [facility] [address] [address] Body Reading Room Procedure [...] Report Verified Date/Time: 02/10/2018 00:28:46 Reading Location: [facility] [address] Body Reading Room Performing Organization Address City/State/Zipcode Phone Number GE RIS Protein, random urine (02/09/2018 5:43 PM CDT) Protein, Urine <7 0 - 14 mg/dL [facility] Specimen Urine - Urine, Voided Performing Organization Address [facility] Phone Number [address] [address] [phone] CENTER Prepare Leuko-Red RBC (02/08/2018 11:54 PM CDT)Only the most recent of2 resultswithin the time period is included. CROSSMATCH COMPATIBLE SAFETRACE TX Unit ABO A Pos SAFETRACE TX UNIT NUMBER [id number] SAFETRACE TX Status TRANSFUSED SAFETRACE TX Blood Bank Product RED BLOOD CELLS SAFETRACE TX PRODUCT CODE [id number] SAFETRACE TX Specimen Other Performing Organization Address [facility] Phone Number SAFETRACE TX POC ACTIVATED CLOTTING TIME (02/08/2018 3:17 PM CDT)Only the most recent of6 resultswithin the time period is included. Activated Clotting Time 114Comment: TESTED AT sec [facility] [address] [address] Specimen Blood Performing Organization Address [facility] Phone Number [address] [address] [phone] CENTER Transfuse Leuko-Red RBC (02/08/2018 2:23 AM CDT)Only the most recent of5 resultswithin the time period is included.REPORT OF PROCEDURE - ENDOSCOPY URL ( 02/06/2018 7:31 PM CDT) Narrative Performed At Arterial doppler leg, right (02/06/2018 10:55 AM CDT) Ejection Fraction [facility] Impressions Performed At Right Impression [facility] 1. The common femoral and profunda [...] + + + + + + !Prox MOLYBDENUM STEAMER OPERATOR ! !28.3! ! ! + + + + + + !Mid MOLYBDENUM STEAMER OPERATOR ! !43.6!8.25 ! ! + + + [...] PV LAB - Lower Extremity Arterial Duplex [facility] Demographics Patient Name JASWINDER RANDALL Date of Study 02/06/2018 ESTEFANIA [id number] Age 62 Visit Number [id number] GenderMale Accession Number [id number] Date of 1955 [facility] DistrictSachin GriderRoom Number 2443 MD Slava SonographJose Gandhi T [facility] [place])J. Roger Moncada MD, Physician RPVI Procedure Type [...] Study 02/06/2018 ESTEFANIA Age 62 Visit Number [id number] Gender Male Accession Number [id number] Date of 1955 Referring Sachin Grider Room Number 6603 Physician MD Jaciel V Belt Finisher Neeru Gandhi T Interpreting Tori Moncada MD, [...] + + + ------+ + + !Prox MOLYBDENUM STEAMER OPERATOR ! !28.3 ! ! ! + + + ------+ + + !Mid MOLYBDENUM STEAMER OPERATOR ! !43.6 !8.25 ! ! + + [...] + ------+ + + Performing Organization Address City/[facility]/Zipcode Phone Number [facility] aPTT (02/05/2018 10:36 PM CDT)Only the most recent of21 resultswithin the time period is included. PTT 44.4 (H) 22.5 - 36.0 seconds [facility] Specimen Blood Performing Organization Address [facility] Phone Number [facility] [address] [place] [address] CENTER CARDIAC CATH REPORT - SCAN (01/31/2018 8:10 AM CDT) Narrative Performed At POC-Glucose meter (01/26/2018 7:14 AM CDT)Only the most recent of9 resultswithin the time period is included. POC-Glucose Meter 129 (H)Comment: TESTED AT 70 - 110 mg/dL [facility] [address] [place] [address] Specimen Blood Performing Organization Address [facility] Hospital[facility] [place] [address] [place] Platelet Aggregation: Function Screen (01/25/2018 7:34 AM CDT)Only the most recent of3 resultswithin the time period is included. Weak ADP 48 (L) 60 - 91 % [facility] Plt. Function Screen 40-49% indicates [facility] Interpretation moderate platelet [facility] dysfunction Pathologist: Buzz Urbano M.D. [facility] (electonic signature) [facility] Platelets 187 150 - 450 K/CU [facility] MM [facility] Specimen Blood - Arm, Right Performing Organization Address [facility] [place] [address] [phone] [place] Calcium, Ionized (01/23/2018 10:00 PM CDT)Only the most recent of2 resultswithin the time period is included. Calcium, Ion 1.04 (L) 1.12 - 1.27 mmol/L [facility] pH, Blood 7.41 [facility] Specimen Blood Performing Organization Address [facility] Phone Number [address] [address] [phone] [place] Potassium-Stat Lab (01/23/2018 6:34 PM CDT)Only the most recent of3 resultswithin the time period is included. Potassium 4.5 3.6 - 5.5 meq/L [facility] Specimen Blood, Arterial Performing Organization Address [facility] Phone Number [address] [place] [address] [place] Glucose-Stat Lab (01/23/2018 6:34 PM CDT)Only the most recent of3 resultswithin the time period is included. Glucose 149 (H) 70 - 110 mg/dL [facility] Specimen Blood, Arterial Performing Organization Address City/[facility]/Zipcode Phone Number [address] [address] [phone] [place] HIV-1 Antigen with HIV-1/2 Antibody (01/23/2018 6:34 PM CDT) HIV-1 Antigen with HIV 1&2 NON-REACTIVE Nonreactive [facility] Specimen Blood Performing Organization Address [facility] Phone Number [address] [address] [place] Hepatitis B surface antigen (01/23/2018 6:34 PM CDT) hepatitis B Surface Ag NON-REACTIVE Nonreactive [facility] Specimen Blood Performing Organization Address City/[facility]/Zipcode Phone Number [address] [phone] [place] Hemoglobin A1c (01/23/2018 6:34 PM CDT) Hemoglobin A1C 5.5 4.3 - 6.1 % [facility] Specimen Blood Performing Organization Address City/[facility] Phone Number [address] [address] [place] Blood gas, arterial (01/23/2018 6:34 PM CDT)Only the most recent of3 resultswithin the time period is included. pH, Arterial 7.34 (L) 7.35 - 7.45 [facility] pCO2, Arterial 38 35 - 45 mmHg [facility] pO2, Arterial 92 (H) 80 - 90 mmHg [facility] O2 Sat, Arterial 97.4 (H) 96.0 - 97.0 % [facility] HCO3, Arterial 21 21 - 29 mmol/L [facility] Base Excess, Arterial -5.3 (L) -2.0 - 3.0 mmol/L [facility] Patient Temperature 34.7 C [facility] FIO2 28.0 % [facility] Specimen Blood, Arterial Performing Organization Address City/[facility] Phone Number [address] [address] [phone] [place] Sodium Na-Stat Lab (11/17/2017 10:27 AM CDT)Only the most recent of2 resultswithin the time period is included. Sodium 137 135 - 148 meq/L [facility] Specimen Blood, Arterial Narrative Performed At Only if arterial line in place and/or patient [facility] on ventilator Performing Organization Address City/[facility] Phone Number [address] [address] [place] HGB/HCT (H&H)-Stat Lab (11/17/2017 10:27 AM CDT)Only the most recent of2 resultswithin the time period is included. Hemoglobin 14.2 13.0 - 16.8 g/dL [facility] Hematocrit 42.0 40.0 - 50.0 % [facility] Specimen Blood, Arterial Narrative Performed At Only if arterial line in place and/or patient [facility] on ventilator Performing Organization Address [facility] Phone Number [address] [address] [place] Urinalysis w/ Microscopic (11/17/2017 5:39 AM CDT) Color, UA Light Yellow [facility] Clarity, UA Clear [facility] Specific Withams, UA 1.009 1.001 - 1.035 [facility] pH, UA 6.0 5.0 - 8.0 [facility] Protein, UA Negative Negative [facility] Glucose, UA Negative Negative [facility] Ketones, UA Negative Negative [facility] Bilirubin, UA Negative Negative [facility] Blood, UA Negative Negative [facility] Nitrite, UA Negative Negative [facility] Leukocytes, UA Negative Negative [facility] Urobilinogen, UA 0.2 0.2 - 1.0 mg/dL [facility] RBC, UA 1 /HPF [facility] WBC, UA <1 /HPF [facility] Specimen Source Urine, Voided [facility] Specimen Urine - Urine, Voided Performing Organization Address City/State/Zipcode Phone Number [facility] [address] [place] [address] [phone] CENTER Vein Mapping Legs Bilateral (11/17/2017 5:15 AM CDT) Ejection Fraction [facility] Impressions Performed At Right Impression [facility] 1. There is [...] PV LAB - Lower Extremities Vein Mapping [facility] Demographics Patient Name JASWINDER RANDALL Date of Study11/17/2017 [id number] Visit Number [id number] Gender Male Accession Number [id number] Date of Birth1955 [facility] [id number] Physician Becky Moncada MD, [place] PhysicianRPVI Procedure [...] of Study 11/17/2017 Age 62 Visit Number [id number] Gender Male Accession Number [id number] Date of 1955 Referring [facility] Room Number 2C24 Physician V Belt Finisher Rey Wetzel Interpreting Tori Moncada MD, [facility] Physician RPVI Procedure Type of Study: Veins: [...] Number [facility] after 06/04/2017 Insurance Payer Benefit Plan / Group Subscriber ID Type Phone Address MEDICARE MEDICARE PART A xxxxxxxxxxx Medicare Advance Directives For more information, please contact:[address] [phone] Code Status Date Activated Date Inactivated Comments [...] Patient Name Relationship Healthcare Agent Relationship Phone [place] ManorArmando martinez Friend Primary healthcare agent [phone] Manuel Stewart Relative First alternate healthcare agent [phone] KrisCalvin levy Friend Second alternate healthcare agent [phone]
--- OUTSIDE RECORDS SUMMARY | 2018-06-05 00:09 | XMS REPORT ---
:1955 Author Organization [facility] Address [address] [place] [address] Care Team Providers Name Role Phone BRANDEN [...] TOTAL PROTEIN (BEAKER) (test 5.9 gm/dL 6.0-8.3 gwxk=925) ALBUMIN (BEAKER) (test 3.1 g/dL 3.5-5.0 mvpa=3451) ALKALINE PHOSPHATASE 61 U/L 40-150 (BEAKER) (test mdvo=371) BILIRUBIN TOTAL (BEAKER) 0.2 mg/dL 0.2-1.2 (test fewp=206) SODIUM (BEAKER) (test 139 meq/L 136-145 rxdv=747) POTASSIUM (BEAKER) (test 4.7 meq/L 3.5-5.1 zeft=752) CHLORIDE (BEAKER) (test 109 meq/L 98-107 ntye=040) CO2 (BEAKER) (test qfuj=811) 24 meq/L 22-29 BLOOD UREA NITROGEN (BEAKER) 21 mg/dL 7-21 (test ysdf=626) CREATININE (BEAKER) (test 1.61 mg/dL 0.57-1.25 jeav=106) GLUCOSE RANDOM (BEAKER) 101 mg/dL 70-105 (test jcql=614) CALCIUM (BEAKER) (test 8.4 mg/dL 8.4-10.2 ioth=074) AST (SGOT) (BEAKER) (test 12 U/L 5-34 lrve=659) ALT (SGPT) (BEAKER) (test 6 U/L 6-55 roix=092) EGFR (BEAKER) (test 44 mL/min/1.73 sq m ESTIMATED GFR IS NOT nqsp=5693) ACCURATE CREATININE CLEARANCE IN PREDICTING GLOMERULAR FILTRATION RATE. ESTIMATED GFR IS NOT APPLICABLE FOR DIALYSIS PATIENTS. CBC W/PLT COUNT & AUTO [id number] 06:16:00 Test Item Value Reference Range Comments WHITE BLOOD CELL COUNT (BEAKER) (test wdzx=000) 6.3 K/ L 3.5-10.5 RED BLOOD CELL COUNT (BEAKER) (test cvvv=992) 3.55 M/ L 4.63-6.08 HEMOGLOBIN (BEAKER) (test grpl=910) 10.5 GM/DL 13.7-17.5 HEMATOCRIT (BEAKER) (test ohwu=307) 32.7 % 40.1-51.0 MEAN CORPUSCULAR VOLUME (BEAKER) (test lbyw=332) 92.1 fL 79.0-92.2 MEAN CORPUSCULAR HEMOGLOBIN (BEAKER) (test 29.6 pg 25.7-32.2 fxly=156) MEAN CORPUSCULAR HEMOGLOBIN CONC (BEAKER) (test 32.1 GM/DL 32.3-36.5 nhfb=676) RED CELL DISTRIBUTION WIDTH (BEAKER) (test 14.2 % 11.6-14.4 eonm=013) PLATELET COUNT (BEAKER) (test iylb=768) 363 K/CU MM 150-450 MEAN PLATELET VOLUME (BEAKER) (test cvdo=053) 8.6 fL 9.4-12.4 NUCLEATED RED BLOOD CELLS (BEAKER) (test 0 /100 WBC 0-0 fkki=236) NEUTROPHILS RELATIVE PERCENT (BEAKER) (test 73 % ijox=647) LYMPHOCYTES RELATIVE PERCENT (BEAKER) (test 20 % kshg=676) MONOCYTES RELATIVE PERCENT (BEAKER) (test 5 % dvmu=193) EOSINOPHILS RELATIVE PERCENT (BEAKER) (test 2 % wjic=629) BASOPHILS RELATIVE PERCENT (BEAKER) (test 1 % flur=648) NEUTROPHILS ABSOLUTE COUNT (BEAKER) (test 4.55 K/ L 1.78-5.38 ihnq=911) LYMPHOCYTES ABSOLUTE COUNT (BEAKER) (test 1.24 K/ L 1.32-3.57 zsta=227) MONOCYTES ABSOLUTE COUNT (BEAKER) (test 0.31 K/ L 0.30-0.82 fwjo=559) EOSINOPHILS ABSOLUTE COUNT (BEAKER) (test 0.13 K/ L 0.04-0.54 lqwn=527) BASOPHILS ABSOLUTE COUNT (BEAKER) (test 0.03 K/ L 0.01-0.08 whzm=136) IMMATURE GRANULOCYTES-RELATIVE PERCENT (BEAKER) 0 % 0-1 (test srls=4281) COMPREHENSIVE METABOLIC [id number] 06:45:00 Test Item Value Reference Range Comments TOTAL PROTEIN (BEAKER) 6.2 gm/dL 6.0-8.3 (test lpnh=126) ALBUMIN (BEAKER) (test 3.2 g/dL 3.5-5.0 zjvt=6630) ALKALINE PHOSPHATASE 68 U/L 40-150 (BEAKER) (test jwmq=743) BILIRUBIN TOTAL (BEAKER) 0.3 mg/dL 0.2-1.2 (test axvw=869) SODIUM (BEAKER) (test 140 meq/L 136-145 qveg=018) POTASSIUM (BEAKER) (test 4.7 meq/L 3.5-5.1 iugn=292) CHLORIDE (BEAKER) (test 109 meq/L 98-107 dyzc=227) CO2 (BEAKER) (test 25 meq/L 22-29 qyel=887) BLOOD UREA NITROGEN 20 mg/dL 7-21 (BEAKER) (test qdme=105) CREATININE (BEAKER) (test 1.71 mg/dL 0.57-1.25 pkzk=779) GLUCOSE RANDOM (BEAKER) 104 mg/dL 70-105 (test mivs=254) CALCIUM (BEAKER) (test 8.4 mg/dL 8.4-10.2 ocfg=994) AST (SGOT) (BEAKER) (test 11 U/L 5-34 mvby=621) ALT (SGPT) (BEAKER) (test 8 U/L 6-55 zaku=409) EGFR (BEAKER) (test 41 mL/min/1.73 sq m ESTIMATED GFR IS NOT bteu=9740) ACCURATE CREATININE CLEARANCE IN PREDICTING GLOMERULAR FILTRATION RATE. ESTIMATED GFR IS NOT APPLICABLE FOR DIALYSIS PATIENTS. CBC W/PLT COUNT & AUTO [id number] 05:36:00 Test Item Value Reference Range Comments WHITE BLOOD CELL COUNT (BEAKER) (test zysv=975) 7.0 K/ L 3.5-10.5 RED BLOOD CELL COUNT (BEAKER) (test bfzy=658) 3.55 M/ L 4.63-6.08 HEMOGLOBIN (BEAKER) (test cqpz=479) 10.3 GM/DL 13.7-17.5 HEMATOCRIT (BEAKER) (test irvl=978) 33.1 % 40.1-51.0 MEAN CORPUSCULAR VOLUME (BEAKER) (test koxg=131) 93.2 fL 79.0-92.2 MEAN CORPUSCULAR HEMOGLOBIN (BEAKER) (test 29.0 pg 25.7-32.2 zopm=920) MEAN CORPUSCULAR HEMOGLOBIN CONC (BEAKER) (test 31.1 GM/DL 32.3-36.5 aedy=361) RED CELL DISTRIBUTION WIDTH (BEAKER) (test 14.2 % 11.6-14.4 amcj=014) PLATELET COUNT (BEAKER) (test umom=854) 409 K/CU MM 150-450 MEAN PLATELET VOLUME (BEAKER) (test rojd=937) 8.7 fL 9.4-12.4 NUCLEATED RED BLOOD CELLS (BEAKER) (test 0 /100 WBC 0-0 ykck=852) NEUTROPHILS RELATIVE PERCENT (BEAKER) (test 69 % bnuk=090) LYMPHOCYTES RELATIVE PERCENT (BEAKER) (test 21 % xowl=578) MONOCYTES RELATIVE PERCENT (BEAKER) (test 7 % njsl=292) EOSINOPHILS RELATIVE PERCENT (BEAKER) (test 2 % snpg=656) BASOPHILS RELATIVE PERCENT (BEAKER) (test 1 % vyec=175) NEUTROPHILS ABSOLUTE COUNT (BEAKER) (test 4.87 K/ L 1.78-5.38 lzvu=932) LYMPHOCYTES ABSOLUTE COUNT (BEAKER) (test 1.46 K/ L 1.32-3.57 sphe=578) MONOCYTES ABSOLUTE COUNT (BEAKER) (test 0.47 K/ L 0.30-0.82 nhrl=387) EOSINOPHILS ABSOLUTE COUNT (BEAKER) (test 0.16 K/ L 0.04-0.54 xxbq=520) BASOPHILS ABSOLUTE COUNT (BEAKER) (test 0.04 K/ L 0.01-0.08 vpgm=356) IMMATURE GRANULOCYTES-RELATIVE PERCENT (BEAKER) 0 % 0-1 (test ymmd=9934) CBC W/PLT COUNT & AUTO [id number] 06:02:00 Test Item Value Reference Range Comments WHITE BLOOD CELL COUNT (BEAKER) (test sxps=036) 7.8 K/ L 3.5-10.5 RED BLOOD CELL COUNT (BEAKER) (test zrnc=158) 3.25 M/ L 4.63-6.08 HEMOGLOBIN (BEAKER) (test elhs=406) 9.6 GM/DL 13.7-17.5 HEMATOCRIT (BEAKER) (test exie=096) 30.2 % 40.1-51.0 MEAN CORPUSCULAR VOLUME (BEAKER) (test zbgk=856) 92.9 fL 79.0-92.2 MEAN CORPUSCULAR HEMOGLOBIN (BEAKER) (test 29.5 pg 25.7-32.2 rkov=282) MEAN CORPUSCULAR HEMOGLOBIN CONC (BEAKER) (test 31.8 GM/DL 32.3-36.5 asej=202) RED CELL DISTRIBUTION WIDTH (BEAKER) (test 14.3 % 11.6-14.4 bscn=566) PLATELET COUNT (BEAKER) (test zkes=164) 344 K/CU MM 150-450 MEAN PLATELET VOLUME (BEAKER) (test xjlp=915) 8.7 fL 9.4-12.4 NUCLEATED RED BLOOD CELLS (BEAKER) (test 0 /100 WBC 0-0 djsh=711) NEUTROPHILS RELATIVE PERCENT (BEAKER) (test 66 % lqqq=856) LYMPHOCYTES RELATIVE PERCENT (BEAKER) (test 19 % bmfz=620) MONOCYTES RELATIVE PERCENT (BEAKER) (test 8 % jjqj=844) EOSINOPHILS RELATIVE PERCENT (BEAKER) (test 6 % fusx=007) BASOPHILS RELATIVE PERCENT (BEAKER) (test 1 % ismw=262) NEUTROPHILS ABSOLUTE COUNT (BEAKER) (test 5.20 K/ L 1.78-5.38 epna=917) LYMPHOCYTES ABSOLUTE COUNT (BEAKER) (test 1.51 K/ L 1.32-3.57 gftc=072) MONOCYTES ABSOLUTE COUNT (BEAKER) (test 0.61 K/ L 0.30-0.82 pbmz=543) EOSINOPHILS ABSOLUTE COUNT (BEAKER) (test 0.43 K/ L 0.04-0.54 atgs=316) BASOPHILS ABSOLUTE COUNT (BEAKER) (test 0.05 K/ L 0.01-0.08 ocbm=890) IMMATURE GRANULOCYTES-RELATIVE PERCENT (BEAKER) 0 % 0-1 (test htjm=9286) CBC W/PLT COUNT & AUTO [id number] 04:40:00 Test Item Value Reference Range Comments WHITE BLOOD CELL COUNT (BEAKER) (test ylgn=799) 7.7 K/ L 3.5-10.5 RED BLOOD CELL COUNT (BEAKER) (test gtef=829) 3.27 M/ L 4.63-6.08 HEMOGLOBIN (BEAKER) (test pkfb=891) 9.7 GM/DL 13.7-17.5 HEMATOCRIT (BEAKER) (test aqmg=696) 30.6 % 40.1-51.0 MEAN CORPUSCULAR VOLUME (BEAKER) (test jzuo=780) 93.6 fL 79.0-92.2 MEAN CORPUSCULAR HEMOGLOBIN (BEAKER) (test 29.7 pg 25.7-32.2 ffhk=173) MEAN CORPUSCULAR HEMOGLOBIN CONC (BEAKER) (test 31.7 GM/DL 32.3-36.5 ogup=657) RED CELL DISTRIBUTION WIDTH (BEAKER) (test 14.4 % 11.6-14.4 cphq=668) PLATELET COUNT (BEAKER) (test jqug=973) 329 K/CU MM 150-450 MEAN PLATELET VOLUME (BEAKER) (test jvbc=568) 8.5 fL 9.4-12.4 NUCLEATED RED BLOOD CELLS (BEAKER) (test 0 /100 WBC 0-0 sngw=477) NEUTROPHILS RELATIVE PERCENT (BEAKER) (test 64 % hrqg=117) LYMPHOCYTES RELATIVE PERCENT (BEAKER) (test 21 % yzea=347) MONOCYTES RELATIVE PERCENT (BEAKER) (test 10 % pqxh=473) EOSINOPHILS RELATIVE PERCENT (BEAKER) (test 5 % npod=614) BASOPHILS RELATIVE PERCENT (BEAKER) (test 1 % xdct=214) NEUTROPHILS ABSOLUTE COUNT (BEAKER) (test 4.88 K/ L 1.78-5.38 hzhs=696) LYMPHOCYTES ABSOLUTE COUNT (BEAKER) (test 1.60 K/ L 1.32-3.57 pazl=837) MONOCYTES ABSOLUTE COUNT (BEAKER) (test 0.74 K/ L 0.30-0.82 zbqn=514) EOSINOPHILS ABSOLUTE COUNT (BEAKER) (test 0.37 K/ L 0.04-0.54 wlfp=721) BASOPHILS ABSOLUTE COUNT (BEAKER) (test 0.05 K/ L 0.01-0.08 wvoy=363) IMMATURE GRANULOCYTES-RELATIVE PERCENT (BEAKER) 0 % 0-1 (test vfet=2491) [id number] 06:27:00 Test Item Value Reference Range Comments MAGNESIUM (BEAKER) (test 2.2 mg/dL 1.6-2.6 Specimen slightly hemolyzed nhji=088) BASIC METABOLIC [id number] 06:27:00 Test Item Value Reference Range Comments SODIUM (BEAKER) (test 142 meq/L 136-145 dxks=451) POTASSIUM (BEAKER) (test 4.6 meq/L 3.5-5.1 Specimen slightly zibi=753) hemolyzed CHLORIDE (BEAKER) (test 111 meq/L 98-107 dxzp=898) CO2 (BEAKER) (test 24 meq/L 22-29 bkwy=719) BLOOD UREA NITROGEN 14 mg/dL 7-21 (BEAKER) (test ycfl=667) CREATININE (BEAKER) (test 1.63 mg/dL 0.57-1.25 Specimen slightly mrig=620) hemolyzed GLUCOSE RANDOM (BEAKER) 102 mg/dL 70-105 (test qqqu=995) CALCIUM (BEAKER) (test 8.7 mg/dL 8.4-10.2 mprz=010) EGFR (BEAKER) (test 43 mL/min/1.73 sq m ESTIMATED GFR IS NOT rqxq=7377) ACCURATE CREATININE CLEARANCE IN PREDICTING GLOMERULAR FILTRATION RATE. ESTIMATED GFR IS NOT APPLICABLE FOR DIALYSIS PATIENTS. CBC W/PLT COUNT & AUTO [id number] 06:07:00 Test Item Value Reference Range Comments WHITE BLOOD CELL COUNT (BEAKER) (test aagl=919) 7.2 K/ L 3.5-10.5 RED BLOOD CELL COUNT (BEAKER) (test pbwe=264) 3.28 M/ L 4.63-6.08 HEMOGLOBIN (BEAKER) (test xdlq=127) 9.6 GM/DL 13.7-17.5 HEMATOCRIT (BEAKER) (test juuf=777) 30.1 % 40.1-51.0 MEAN CORPUSCULAR VOLUME (BEAKER) (test uwbj=843) 91.8 fL 79.0-92.2 MEAN CORPUSCULAR HEMOGLOBIN (BEAKER) (test 29.3 pg 25.7-32.2 ryyc=532) MEAN CORPUSCULAR HEMOGLOBIN CONC (BEAKER) (test 31.9 GM/DL 32.3-36.5 xuqg=942) RED CELL DISTRIBUTION WIDTH (BEAKER) (test 14.4 % 11.6-14.4 vkes=602) PLATELET COUNT (BEAKER) (test ymul=205) 309 K/CU MM 150-450 MEAN PLATELET VOLUME (BEAKER) (test dpae=109) 8.8 fL 9.4-12.4 NUCLEATED RED BLOOD CELLS (BEAKER) (test 0 /100 WBC 0-0 gnvc=286) NEUTROPHILS RELATIVE PERCENT (BEAKER) (test 64 % jhii=197) LYMPHOCYTES RELATIVE PERCENT (BEAKER) (test 22 % uwet=849) MONOCYTES RELATIVE PERCENT (BEAKER) (test 9 % gcjd=288) EOSINOPHILS RELATIVE PERCENT (BEAKER) (test 4 % wpdc=547) BASOPHILS RELATIVE PERCENT (BEAKER) (test 1 % ppru=872) NEUTROPHILS ABSOLUTE COUNT (BEAKER) (test 4.63 K/ L 1.78-5.38 kvcs=249) LYMPHOCYTES ABSOLUTE COUNT (BEAKER) (test 1.57 K/ L 1.32-3.57 ipaa=657) MONOCYTES ABSOLUTE COUNT (BEAKER) (test 0.63 K/ L 0.30-0.82 xkhb=140) EOSINOPHILS ABSOLUTE COUNT (BEAKER) (test 0.29 K/ L 0.04-0.54 eicw=028) BASOPHILS ABSOLUTE COUNT (BEAKER) (test 0.04 K/ L 0.01-0.08 niul=599) IMMATURE GRANULOCYTES-RELATIVE PERCENT (BEAKER) 1 % 0-1 (test uzpf=4940) [id number] 13:12:00 Test Item Value Reference Range Comments MAGNESIUM (BEAKER) (test 2.0 mg/dL 1.6-2.6 Specimen slightly hemolyzed honn=764) BASIC METABOLIC [id number] 13:12:00 Test Item Value Reference Range Comments SODIUM (BEAKER) (test 140 meq/L 136-145 imbm=023) POTASSIUM (BEAKER) (test 4.3 meq/L 3.5-5.1 Specimen slightly kreq=765) hemolyzed CHLORIDE (BEAKER) (test 107 meq/L 98-107 jfjp=654) CO2 (BEAKER) (test 26 meq/L 22-29 xwry=826) BLOOD UREA NITROGEN 16 mg/dL 7-21 (BEAKER) (test uvkw=900) CREATININE (BEAKER) (test 1.70 mg/dL 0.57-1.25 Specimen slightly vgqr=059) hemolyzed GLUCOSE RANDOM (BEAKER) 95 mg/dL 70-105 (test jlfz=242) CALCIUM (BEAKER) (test 9.0 mg/dL 8.4-10.2 clxr=405) EGFR (BEAKER) (test 41 mL/min/1.73 sq m ESTIMATED GFR IS NOT hajs=1575) ACCURATE CREATININE CLEARANCE IN PREDICTING GLOMERULAR FILTRATION RATE. ESTIMATED GFR IS NOT APPLICABLE FOR DIALYSIS PATIENTS. CBC W/PLT COUNT & AUTO [id number] 12:57:00 Test Item Value Reference Range Comments WHITE BLOOD CELL COUNT (BEAKER) (test qmaz=141) 7.8 K/ L 3.5-10.5 RED BLOOD CELL COUNT (BEAKER) (test bqgi=166) 3.61 M/ L 4.63-6.08 HEMOGLOBIN (BEAKER) (test ovvc=996) 10.7 GM/DL 13.7-17.5 HEMATOCRIT (BEAKER) (test qdtx=693) 33.6 % 40.1-51.0 MEAN CORPUSCULAR VOLUME (BEAKER) (test hozz=333) 93.1 fL 79.0-92.2 MEAN CORPUSCULAR HEMOGLOBIN (BEAKER) (test 29.6 pg 25.7-32.2 umkh=712) MEAN CORPUSCULAR HEMOGLOBIN CONC (BEAKER) (test 31.8 GM/DL 32.3-36.5 citi=361) RED CELL DISTRIBUTION WIDTH (BEAKER) (test 14.5 % 11.6-14.4 ydpg=451) PLATELET COUNT (BEAKER) (test jhxu=426) 306 K/CU MM 150-450 MEAN PLATELET VOLUME (BEAKER) (test pmcn=159) 8.7 fL 9.4-12.4 NUCLEATED RED BLOOD CELLS (BEAKER) (test 0 /100 WBC 0-0 dprt=020) NEUTROPHILS RELATIVE PERCENT (BEAKER) (test 65 % cury=088) LYMPHOCYTES RELATIVE PERCENT (BEAKER) (test 20 % dues=286) MONOCYTES RELATIVE PERCENT (BEAKER) (test 11 % xcfh=680) EOSINOPHILS RELATIVE PERCENT (BEAKER) (test 4 % gbec=318) BASOPHILS RELATIVE PERCENT (BEAKER) (test 0 % qtsx=996) NEUTROPHILS ABSOLUTE COUNT (BEAKER) (test 5.06 K/ L 1.78-5.38 eovo=835) LYMPHOCYTES ABSOLUTE COUNT (BEAKER) (test 1.55 K/ L 1.32-3.57 oowy=858) MONOCYTES ABSOLUTE COUNT (BEAKER) (test 0.82 K/ L 0.30-0.82 ypdw=569) EOSINOPHILS ABSOLUTE COUNT (BEAKER) (test 0.29 K/ L 0.04-0.54 jazj=270) BASOPHILS ABSOLUTE COUNT (BEAKER) (test 0.03 K/ L 0.01-0.08 rgdy=732) IMMATURE GRANULOCYTES-RELATIVE PERCENT (BEAKER) 0 % 0-1 (test ioku=5586) [id number] 06:25:00 Test Item Value Reference Range Comments MAGNESIUM (BEAKER) (test zejh=196) 2.0 mg/dL 1.6-2.6 BASIC METABOLIC [id number] 06:25:00 Test Item Value Reference Range Comments SODIUM (BEAKER) (test 141 meq/L 136-145 bsts=072) POTASSIUM (BEAKER) (test 4.3 meq/L 3.5-5.1 auvm=857) CHLORIDE (BEAKER) (test 109 meq/L 98-107 halz=562) CO2 (BEAKER) (test 24 meq/L 22-29 ivwy=445) BLOOD UREA NITROGEN 18 mg/dL 7-21 (BEAKER) (test axkg=586) CREATININE (BEAKER) (test 1.81 mg/dL 0.57-1.25 axkc=944) GLUCOSE RANDOM (BEAKER) 110 mg/dL 70-105 (test ojqd=234) CALCIUM (BEAKER) (test 8.7 mg/dL 8.4-10.2 raxn=560) EGFR (BEAKER) (test 38 mL/min/1.73 sq m ESTIMATED GFR IS NOT nbnx=8136) ACCURATE CREATININE CLEARANCE IN PREDICTING GLOMERULAR FILTRATION RATE. ESTIMATED GFR IS NOT APPLICABLE FOR DIALYSIS PATIENTS. CBC W/PLT COUNT & AUTO [id number] 05:20:00 Test Item Value Reference Range Comments WHITE BLOOD CELL COUNT (BEAKER) (test fdti=703) 7.8 K/ L 3.5-10.5 RED BLOOD CELL COUNT (BEAKER) (test jxpz=642) 3.59 M/ L 4.63-6.08 HEMOGLOBIN (BEAKER) (test nrdb=771) 10.7 GM/DL 13.7-17.5 HEMATOCRIT (BEAKER) (test ywdn=280) 32.9 % 40.1-51.0 MEAN CORPUSCULAR VOLUME (BEAKER) (test mrad=916) 91.6 fL 79.0-92.2 MEAN CORPUSCULAR HEMOGLOBIN (BEAKER) (test 29.8 pg 25.7-32.2 bhtd=782) MEAN CORPUSCULAR HEMOGLOBIN CONC (BEAKER) (test 32.5 GM/DL 32.3-36.5 mpsv=856) RED CELL DISTRIBUTION WIDTH (BEAKER) (test 14.3 % 11.6-14.4 kkbi=492) PLATELET COUNT (BEAKER) (test kuni=098) 278 K/CU MM 150-450 MEAN PLATELET VOLUME (BEAKER) (test ruxj=805) 9.0 fL 9.4-12.4 NUCLEATED RED BLOOD CELLS (BEAKER) (test 0 /100 WBC 0-0 fvrz=079) NEUTROPHILS RELATIVE PERCENT (BEAKER) (test 69 % ionp=618) LYMPHOCYTES RELATIVE PERCENT (BEAKER) (test 16 % ekia=933) MONOCYTES RELATIVE PERCENT (BEAKER) (test 10 % iusz=025) EOSINOPHILS RELATIVE PERCENT (BEAKER) (test 4 % epud=435) BASOPHILS RELATIVE PERCENT (BEAKER) (test 0 % owxc=531) NEUTROPHILS ABSOLUTE COUNT (BEAKER) (test 5.37 K/ L 1.78-5.38 snho=564) LYMPHOCYTES ABSOLUTE COUNT (BEAKER) (test 1.25 K/ L 1.32-3.57 ddjb=835) MONOCYTES ABSOLUTE COUNT (BEAKER) (test 0.77 K/ L 0.30-0.82 wzke=586) EOSINOPHILS ABSOLUTE COUNT (BEAKER) (test 0.32 K/ L 0.04-0.54 ytwm=520) BASOPHILS ABSOLUTE COUNT (BEAKER) (test 0.03 K/ L 0.01-0.08 xzdn=519) IMMATURE GRANULOCYTES-RELATIVE PERCENT (BEAKER) 1 % 0-1 (test mxvz=5680) HEMOGLOBIN AND [id number] 17:07:00 Test Item Value Reference Range Comments HEMOGLOBIN (BEAKER) (test jvsk=744) 11.2 GM/DL 13.7-17.5 HEMATOCRIT (BEAKER) (test aozj=831) 33.7 % 40.1-51.0 [id number] 12:56:00 Test Item Value Reference Range Comments MAGNESIUM (BEAKER) (test lwkb=678) 1.9 mg/dL 1.6-2.6 BASIC METABOLIC [id number] 12:56:00 Test Item Value Reference Range Comments SODIUM (BEAKER) (test 139 meq/L 136-145 rtch=133) POTASSIUM (BEAKER) (test 4.1 meq/L 3.5-5.1 nqkh=451) CHLORIDE (BEAKER) (test 105 meq/L 98-107 gsjh=176) CO2 (BEAKER) (test 23 meq/L 22-29 gald=454) BLOOD UREA NITROGEN 17 mg/dL 7-21 (BEAKER) (test pwjo=088) CREATININE (BEAKER) (test 1.80 mg/dL 0.57-1.25 voua=004) GLUCOSE RANDOM (BEAKER) 87 mg/dL 70-105 (test qygf=816) CALCIUM (BEAKER) (test 9.0 mg/dL 8.4-10.2 mwiq=007) EGFR (BEAKER) (test 38 mL/min/1.73 sq m ESTIMATED GFR IS NOT tecm=5912) ACCURATE CREATININE CLEARANCE IN PREDICTING GLOMERULAR FILTRATION RATE. ESTIMATED GFR IS NOT APPLICABLE FOR DIALYSIS PATIENTS. CBC W/PLT COUNT & AUTO [id number] 12:40:00 Test Item Value Reference Range Comments WHITE BLOOD CELL COUNT (BEAKER) (test lyqb=578) 8.4 K/ L 3.5-10.5 RED BLOOD CELL COUNT (BEAKER) (test rkcl=619) 3.83 M/ L 4.63-6.08 HEMOGLOBIN (BEAKER) (test yzrf=218) 11.3 GM/DL 13.7-17.5 HEMATOCRIT (BEAKER) (test gkgv=896) 35.6 % 40.1-51.0 MEAN CORPUSCULAR VOLUME (BEAKER) (test qrcz=562) 93.0 fL 79.0-92.2 MEAN CORPUSCULAR HEMOGLOBIN (BEAKER) (test 29.5 pg 25.7-32.2 bphq=291) MEAN CORPUSCULAR HEMOGLOBIN CONC (BEAKER) (test 31.7 GM/DL 32.3-36.5 vrcj=396) RED CELL DISTRIBUTION WIDTH (BEAKER) (test 14.6 % 11.6-14.4 qnol=309) PLATELET COUNT (BEAKER) (test lhrz=147) 302 K/CU MM 150-450 MEAN PLATELET VOLUME (BEAKER) (test nmeo=531) 8.7 fL 9.4-12.4 NUCLEATED RED BLOOD CELLS (BEAKER) (test 0 /100 WBC 0-0 wgcd=114) NEUTROPHILS RELATIVE PERCENT (BEAKER) (test 71 % jpbj=542) LYMPHOCYTES RELATIVE PERCENT (BEAKER) (test 17 % qkat=869) MONOCYTES RELATIVE PERCENT (BEAKER) (test 8 % lspg=061) EOSINOPHILS RELATIVE PERCENT (BEAKER) (test 3 % swbp=979) BASOPHILS RELATIVE PERCENT (BEAKER) (test 0 % zzxc=929) NEUTROPHILS ABSOLUTE COUNT (BEAKER) (test 6.02 K/ L 1.78-5.38 vsfg=857) LYMPHOCYTES ABSOLUTE COUNT (BEAKER) (test 1.40 K/ L 1.32-3.57 wfia=835) MONOCYTES ABSOLUTE COUNT (BEAKER) (test 0.68 K/ L 0.30-0.82 ggxv=727) EOSINOPHILS ABSOLUTE COUNT (BEAKER) (test 0.27 K/ L 0.04-0.54 jeac=140) BASOPHILS ABSOLUTE COUNT (BEAKER) (test 0.03 K/ L 0.01-0.08 cwoj=801) IMMATURE GRANULOCYTES-RELATIVE PERCENT (BEAKER) 0 % 0-1 (test pswv=8752) BASIC METABOLIC [id number] 05:19:00 Test Item Value Reference Range Comments SODIUM (BEAKER) (test 135 meq/L 136-145 qngu=870) POTASSIUM (BEAKER) (test 4.0 meq/L 3.5-5.1 uxbf=869) CHLORIDE (BEAKER) (test 107 meq/L 98-107 nwgb=588) CO2 (BEAKER) (test 22 meq/L 22-29 bygf=394) BLOOD UREA NITROGEN 17 mg/dL 7-21 (BEAKER) (test ekbz=655) CREATININE (BEAKER) (test 1.98 mg/dL 0.57-1.25 qhzn=236) GLUCOSE RANDOM (BEAKER) 125 mg/dL 70-105 (test mdlo=645) CALCIUM (BEAKER) (test 8.2 mg/dL 8.4-10.2 gwnj=334) EGFR (BEAKER) (test 34 mL/min/1.73 sq m ESTIMATED GFR IS NOT uqum=3885) ACCURATE CREATININE CLEARANCE IN PREDICTING GLOMERULAR FILTRATION RATE. ESTIMATED GFR IS NOT APPLICABLE FOR DIALYSIS PATIENTS. BASIC METABOLIC [id number] 07:26:00 Test Item Value Reference Range Comments SODIUM (BEAKER) (test 133 meq/L 136-145 wayo=188) POTASSIUM (BEAKER) (test 4.0 meq/L 3.5-5.1 jgvp=461) CHLORIDE (BEAKER) (test 102 meq/L 98-107 jsxl=489) CO2 (BEAKER) (test 24 meq/L 22-29 bkmh=676) BLOOD UREA NITROGEN 13 mg/dL 7-21 (BEAKER) (test llkm=999) CREATININE (BEAKER) (test 2.04 mg/dL 0.57-1.25 wihx=963) GLUCOSE RANDOM (BEAKER) 120 mg/dL 70-105 (test vdyb=988) CALCIUM (BEAKER) (test 8.3 mg/dL 8.4-10.2 dilh=164) EGFR (BEAKER) (test 33 mL/min/1.73 sq m ESTIMATED GFR IS NOT fqeu=9532) ACCURATE CREATININE CLEARANCE IN PREDICTING GLOMERULAR FILTRATION RATE. ESTIMATED GFR IS NOT APPLICABLE FOR DIALYSIS PATIENTS. CBC W/PLT COUNT & AUTO [id number] 06:36:00 Test Item Value Reference Range Comments WHITE BLOOD CELL COUNT (BEAKER) (test ylch=207) 9.7 K/ L 3.5-10.5 RED BLOOD CELL COUNT (BEAKER) (test ujlp=811) 3.65 M/ L 4.63-6.08 HEMOGLOBIN (BEAKER) (test pjdb=287) 11.2 GM/DL 13.7-17.5 HEMATOCRIT (BEAKER) (test zxhw=801) 33.7 % 40.1-51.0 MEAN CORPUSCULAR VOLUME (BEAKER) (test hrnj=672) 92.3 fL 79.0-92.2 MEAN CORPUSCULAR HEMOGLOBIN (BEAKER) (test 30.7 pg 25.7-32.2 bhbq=120) MEAN CORPUSCULAR HEMOGLOBIN CONC (BEAKER) (test 33.2 GM/DL 32.3-36.5 znii=839) RED CELL DISTRIBUTION WIDTH (BEAKER) (test 14.4 % 11.6-14.4 mvym=824) PLATELET COUNT (BEAKER) (test wfyw=461) 214 K/CU MM 150-450 MEAN PLATELET VOLUME (BEAKER) (test fgnb=093) 8.8 fL 9.4-12.4 NUCLEATED RED BLOOD CELLS (BEAKER) (test 0 /100 WBC 0-0 zrlu=415) NEUTROPHILS RELATIVE PERCENT (BEAKER) (test 78 % cray=331) LYMPHOCYTES RELATIVE PERCENT (BEAKER) (test 11 % rvxr=160) MONOCYTES RELATIVE PERCENT (BEAKER) (test 9 % vkjh=566) EOSINOPHILS RELATIVE PERCENT (BEAKER) (test 1 % opog=770) BASOPHILS RELATIVE PERCENT (BEAKER) (test 1 % szdt=445) NEUTROPHILS ABSOLUTE COUNT (BEAKER) (test 7.51 K/ L 1.78-5.38 xevl=869) LYMPHOCYTES ABSOLUTE COUNT (BEAKER) (test 1.09 K/ L 1.32-3.57 ljkt=352) MONOCYTES ABSOLUTE COUNT (BEAKER) (test 0.83 K/ L 0.30-0.82 gegg=745) EOSINOPHILS ABSOLUTE COUNT (BEAKER) (test 0.14 K/ L 0.04-0.54 wokq=495) BASOPHILS ABSOLUTE COUNT (BEAKER) (test 0.05 K/ L 0.01-0.08 jwse=536) IMMATURE GRANULOCYTES-RELATIVE PERCENT (BEAKER) 1 % 0-1 (test hmms=5294) LIPID [id number] 07:15:00 Test Item Value Reference Range Comments TRIGLYCERIDES (BEAKER) (test wynx=931) 65 mg/dL CHOLESTEROL (BEAKER) (test yyqo=121) 129 mg/dL HDL CHOLESTEROL (BEAKER) (test mblu=456) 30 mg/dL LDL CHOLESTEROL CALCULATED (BEAKER) (test 86 mg/dL dcfs=770) Triglyceride Reference Range: Low Risk <150 Borderline 150- 199 High Risk 200-499 Very High Risk >=500Cholesterol Reference Range: Low Risk <200 Borderline 200-239 High Risk > 240HDL Cholesterol Reference Range: Low Risk >=60 High Risk <40LDL Cholesterol Reference Range: Optimal <100 Near Optimal 100-129 Borderline 130-159 High 160-189 Very High >=190BASIC METABOLIC [id number] 07:15:00 Test Item Value Reference Range Comments SODIUM (BEAKER) (test 138 meq/L 136-145 rrmo=585) POTASSIUM (BEAKER) (test 4.3 meq/L 3.5-5.1 stzu=217) CHLORIDE (BEAKER) (test 108 meq/L 98-107 bqie=631) CO2 (BEAKER) (test 24 meq/L 22-29 anwz=026) BLOOD UREA NITROGEN 13 mg/dL 7-21 (BEAKER) (test kara=037) CREATININE (BEAKER) (test 1.86 mg/dL 0.57-1.25 qphm=516) GLUCOSE RANDOM (BEAKER) 90 mg/dL 70-105 (test pjjj=081) CALCIUM (BEAKER) (test 8.8 mg/dL 8.4-10.2 wlgm=074) EGFR (BEAKER) (test 37 mL/min/1.73 sq m ESTIMATED GFR IS NOT xhqx=3057) ACCURATE CREATININE CLEARANCE IN PREDICTING GLOMERULAR FILTRATION RATE. ESTIMATED GFR IS NOT APPLICABLE FOR DIALYSIS PATIENTS. CBC W/PLT COUNT & AUTO [id number] 06:52:00 Test Item Value Reference Range Comments WHITE BLOOD CELL COUNT (BEAKER) (test najn=289) 8.3 K/ L 3.5-10.5 RED BLOOD CELL COUNT (BEAKER) (test yigt=274) 3.89 M/ L 4.63-6.08 HEMOGLOBIN (BEAKER) (test ndhr=587) 11.8 GM/DL 13.7-17.5 HEMATOCRIT (BEAKER) (test jiei=191) 36.2 % 40.1-51.0 MEAN CORPUSCULAR VOLUME (BEAKER) (test ardv=235) 93.1 fL 79.0-92.2 MEAN CORPUSCULAR HEMOGLOBIN (BEAKER) (test 30.3 pg 25.7-32.2 vupa=071) MEAN CORPUSCULAR HEMOGLOBIN CONC (BEAKER) (test 32.6 GM/DL 32.3-36.5 lnyp=962) RED CELL DISTRIBUTION WIDTH (BEAKER) (test 14.6 % 11.6-14.4 dorg=626) PLATELET COUNT (BEAKER) (test dgom=149) 272 K/CU MM 150-450 MEAN PLATELET VOLUME (BEAKER) (test akee=451) 9.0 fL 9.4-12.4 NUCLEATED RED BLOOD CELLS (BEAKER) (test 0 /100 WBC 0-0 ppty=484) NEUTROPHILS RELATIVE PERCENT (BEAKER) (test 57 % jsva=044) LYMPHOCYTES RELATIVE PERCENT (BEAKER) (test 28 % vhye=406) MONOCYTES RELATIVE PERCENT (BEAKER) (test 10 % ulsn=699) EOSINOPHILS RELATIVE PERCENT (BEAKER) (test 5 % zgoi=913) BASOPHILS RELATIVE PERCENT (BEAKER) (test 1 % jdaf=033) NEUTROPHILS ABSOLUTE COUNT (BEAKER) (test 4.70 K/ L 1.78-5.38 lrge=545) LYMPHOCYTES ABSOLUTE COUNT (BEAKER) (test 2.31 K/ L 1.32-3.57 ofev=824) MONOCYTES ABSOLUTE COUNT (BEAKER) (test 0.83 K/ L 0.30-0.82 tkid=451) EOSINOPHILS ABSOLUTE COUNT (BEAKER) (test 0.37 K/ L 0.04-0.54 onup=867) BASOPHILS ABSOLUTE COUNT (BEAKER) (test 0.07 K/ L 0.01-0.08 shvz=007) IMMATURE GRANULOCYTES-RELATIVE PERCENT (BEAKER) 0 % 0-1 (test exdp=3348) RAD, CHEST, 1 VIEW, NON [id number] 23:59:00Reason for exam:->pre opShould this be performed [...] MDReport Verified Date/Time: 05/17/2018 23:59:18 Reading Location: [address] Consult Reading Room 11 :59 PMPT/[id number] 18:50:00 Test Item Value Reference Range Comments PROTIME (BEAKER) (test jfhx=189) 13.0 seconds 11.7-14.7 INR (BEAKER) (test xusy=074) 1.0 <=5.9 PARTIAL THROMBOPLASTIN TIME (BEAKER) (test 30.3 seconds 22.5-36.0 tcmc=321) RECOMMENDED COUMADIN/WARFARIN INR THERAPY RANGESSTANDARD DOSE: 2.0 - 3.0 Includes: PROPHYLAXIS forvenous thrombosis, systemic embolization; TREATMENT for venous thrombosis and/or pulmonary embolus.HIGH RISK: Target INR is 2.5-3.5 for patients with mechanical heart valves.PROTHROMBIN [id number] 18:49: 00 Test Item Value Reference Range Comments PROTIME (BEAKER) (test mpkh=478) 13.0 seconds 11.7-14.7 INR (BEAKER) (test mtav=544) 1.0 <=5.9 RECOMMENDED COUMADIN/WARFARIN INR THERAPY RANGESSTANDARD DOSE: 2.0 - 3.0 Includes: PROPHYLAXIS forvenous thrombosis, systemic embolization; TREATMENT for venous thrombosis and/or pulmonary embolus.HIGH RISK: Target INR is 2.5-3.5 for patients with mechanical heart valves.[id number] 18:40:00 Test Item Value Reference Range Comments PHOSPHORUS (BEAKER) (test dsbb=887) 3.0 mg/dL 2.3-4.7 [id number] 18:40:00 Test Item Value Reference Range Comments MAGNESIUM (BEAKER) (test bzbf=361) 2.1 mg/dL 1.6-2.6 BASIC METABOLIC [id number] 18:40:00 Test Item Value Reference Range Comments SODIUM (BEAKER) (test 137 meq/L 136-145 rqsh=319) POTASSIUM (BEAKER) (test 4.5 meq/L 3.5-5.1 nrxp=050) CHLORIDE (BEAKER) (test 105 meq/L 98-107 ehmm=200) CO2 (BEAKER) (test 23 meq/L 22-29 vmpt=624) BLOOD UREA NITROGEN 13 mg/dL 7-21 (BEAKER) (test anou=425) CREATININE (BEAKER) (test 1.81 mg/dL 0.57-1.25 kdpy=458) GLUCOSE RANDOM (BEAKER) 87 mg/dL 70-105 (test rkey=524) CALCIUM (BEAKER) (test 9.3 mg/dL 8.4-10.2 mglp=315) EGFR (BEAKER) (test 38 mL/min/1.73 sq m ESTIMATED GFR IS NOT yxrz=5555) ACCURATE CREATININE CLEARANCE IN PREDICTING GLOMERULAR FILTRATION RATE. ESTIMATED GFR IS NOT APPLICABLE FOR DIALYSIS PATIENTS. HEPATIC FUNCTION [id number] 18:40:00 Test Item Value Reference Range Comments TOTAL PROTEIN (BEAKER) (test zqvq=541) 7.1 gm/dL 6.0-8.3 ALBUMIN (BEAKER) (test snuf=0838) 3.9 g/dL 3.5-5.0 BILIRUBIN TOTAL (BEAKER) (test fsgv=422) 0.3 mg/dL 0.2-1.2 BILIRUBIN DIRECT (BEAKER) (test fiiy=337) 0.1 mg/dL 0.1-0.5 ALKALINE PHOSPHATASE (BEAKER) (test vdgp=955) 93 U/L 40-150 AST (SGOT) (BEAKER) (test isdz=405) 16 U/L 5-34 ALT (SGPT) (BEAKER) (test qrpi=717) 11 U/L 6-55 CBC W/PLT COUNT & AUTO [id number] 18:25:00 Test Item Value Reference Range Comments WHITE BLOOD CELL COUNT (BEAKER) (test ufip=995) 10.6 K/ L 3.5-10.5 RED BLOOD CELL COUNT (BEAKER) (test bxbe=925) 4.59 M/ L 4.63-6.08 HEMOGLOBIN (BEAKER) (test vaxh=967) 13.8 GM/DL 13.7-17.5 HEMATOCRIT (BEAKER) (test juqt=286) 42.3 % 40.1-51.0 MEAN CORPUSCULAR VOLUME (BEAKER) (test ksds=500) 92.2 fL 79.0-92.2 MEAN CORPUSCULAR HEMOGLOBIN (BEAKER) (test 30.1 pg 25.7-32.2 ablo=262) MEAN CORPUSCULAR HEMOGLOBIN CONC (BEAKER) (test 32.6 GM/DL 32.3-36.5 gwyy=849) RED CELL DISTRIBUTION WIDTH (BEAKER) (test 14.7 % 11.6-14.4 glad=830) PLATELET COUNT (BEAKER) (test woba=650) 313 K/CU MM 150-450 MEAN PLATELET VOLUME (BEAKER) (test rlvl=794) 8.8 fL 9.4-12.4 NUCLEATED RED BLOOD CELLS (BEAKER) (test 0 /100 WBC 0-0 uqjd=546) NEUTROPHILS RELATIVE PERCENT (BEAKER) (test 74 % boty=981) LYMPHOCYTES RELATIVE PERCENT (BEAKER) (test 16 % lgwz=671) MONOCYTES RELATIVE PERCENT (BEAKER) (test 7 % tdjc=939) EOSINOPHILS RELATIVE PERCENT (BEAKER) (test 2 % ohxf=889) BASOPHILS RELATIVE PERCENT (BEAKER) (test 1 % ccgb=696) NEUTROPHILS ABSOLUTE COUNT (BEAKER) (test 7.87 K/ L 1.78-5.38 kaug=225) LYMPHOCYTES ABSOLUTE COUNT (BEAKER) (test 1.70 K/ L 1.32-3.57 pdib=070) MONOCYTES ABSOLUTE COUNT (BEAKER) (test 0.79 K/ L 0.30-0.82 hsal=228) EOSINOPHILS ABSOLUTE COUNT (BEAKER) (test 0.20 K/ L 0.04-0.54 ptlm=297) BASOPHILS ABSOLUTE COUNT (BEAKER) (test 0.05 K/ L 0.01-0.08 zcno=782) IMMATURE GRANULOCYTES-RELATIVE PERCENT (BEAKER) 0 % 0-1 (test jdjh=5290) TISSUE [id number] 14:40:00Surgical Pathology Report Case: [id number] Authorizing Provider: Fadi Philippe MD Collected: 02/06/2018 6258 Ordering Location: [address] Received: 02/07/2018 8205 Service Pathologist: Yuridia Mercer MD Specimens: A) - Polyp, Colon - Right/Ascending, taken via hot snare B) -Mass, Bx of Rectal mass via forcep The addendum is issued to report the results of molecular tests performed at [facility]. RESULTS: - There is a mutationin the [...] developed and its performance characteristics determined by [facility], Pathology Laboratory. It has not been cleared [...] complexity clinical laboratory testing. Added CPT codes: 58897, 77105 x3 This email and attachments contain information [...] TYPE, ULCERATEDCC/pl Signing Pathologist Direct Phone Line: [phone] by Yuridia Mercer MD on 02/08 at 10:08 [id number]. Right ascending colon polyp; B. Rectal mass [...] reactive changes are also present.CT, LIMITED/ LOCALIZED [id number] 08:10:00Request liver biopsy Reason for exam:-> liver mass, need biopsy Should this be performed at the bedside?->NoAddendum BeginsREPORT STATUS:A This exam was performed according to our departmental dose optimization program which includes automated exposure control, adjustment of the mA and/or kV according to patient size and/or use of iterative reconstructive technique. Signed: Tung Wise MDReport Verified Date/ Time: 02/27/2018 08:10:53 Reading Location: [facility] Diagnostic Imaging Reading Room - [place] [address]Addendum EndsFINAL REPORT History: Liver masses COMPARISON: CT dated 02/09/2018 and an ultrasound dated 02/13/2018 DISCUSSION: The hepatic lesions were unable to be previously seen under ultrasound and therefore, the patient was sent to CT for potential biopsy under CT guidance. A acoustical tile carpenters supervisor image was obtained prior to the biopsy procedure. The previously seen nodular foci within the liver are not well delineated on the acoustical tile carpenters supervisor images. Some poorly seen hypodense foci are [...] Verified Date/Time: 02/14/2018 16: 38:16 Reading Location: [facility] C013Y CT Body ReadingRoom FINE NEEDLE ASPIRATION BY [id number] 14:34:00Medical Cytology Report Case: [id number] Authorizing Provider: Fadi Philippe MD Collected: 02/15/2018 1103 Ordering Location: [address] Received: 02/16/2018 0959 Service Pathologist: Yas Townsend Specimen: Liver, Liver mass FNA in CRR for cytology LIVER MASS FNA BYCLINICIAN ( CYTOSPINS AND CELL BLOCK OF ASPIRATE): - POSITIVE FOR MALIGNANCY, MORPHOLOGICALLY COMPATIBLE WITH RECTAL CARCINOMA PRIMARY Signing Pathologist Direct Phone Line: [phone] signed by Yas Townsend on 02/17/2018 at 2:34 PMCytospins show clusters of benign appearing hepatocytes. The cell block show predominantly hepatic parenchyma with a focal attached area ofatypical glands with hyperchromatic and pleomorphic nuclei. The previous case, [id number] is reviewed and shows similar features.Intradepartmental Consultation: Noy Bailey MD has reviewed the case andagrees with the findings.70536, 89960(1.3 x 0.9 cm) round mass in the left lobe of the liver, recently diagnosed with rectal cancer(see [id number])LIVER MASS FNA27 mls in cytorich red; 4 cytospins, cellblockCollected: [id number] : [id number] [facility], [facility] of Pathology, [address] [place] [address], [place] [address], [address] [place] [address], Department of Pathology, [address] [place] [address], [place] [address], Tel UCT, TUNNEL CATH CENTRAL INS W/PORT [id number] 18:32:00Reason for exam:-&gt ;chemotherapyFINAL REPORT Right internal jugular chest port insertion History: Patient requires access for chemotherapy. Modality: Sonography and fluoroscopy. Sedation: Versed 1.5 mg and fentanyl 75 mcg given intravenously forconscious sedation. Vital signs were monitored throughout the procedure by a nurse, and remained stable. Physician intra-service time was 25 minutes. Entry Level Buyer: Peña Zepeda MDAssistant: Jose Martin. Approach: Right [...] needle into the right atrium. A 4 Nepali micropuncture sheath was placed. A subcutaneous tunnel [...] MDReport Verified Date/Time: 02/16/2018 18:32:11 Reading Location: [place] [address] Angio Body Reading Room TISSUE [id number] 15:01: 00Surgical Pathology Report Case: [id number] Authorizing Provider: Fadi Philippe MD Collected : 02/15/2018 1055 Ordering Location: [address] Received: 02/15/2018 1604 Service Pathologist: Timothy Mendoza MD Specimen: Liver, Liver Mass LIVER MASS, ULTRASOUND-GUIDED CORE NEEDLE BIOPSY: - FRAGMENTED CORES OF BENIGN LIVER PARENCHYMA - MINIMAL STEATOSIS (LESS THAN 1% ) - MINIMAL PERIPORTAL FIBROSIS - NEGATIVE FOR MALIGNANCY (SEE COMMENT) Signing Pathologist Direct Phone Line: [phone] signed by Timothy Mendoza MD on 02/16/2018 at 3:01 PMClinical and radiographic correlation is recommended to determine if this represents the lesion.58080, 64565 x 2Rectal cancerLiver massThe specimen is received [...] report above: trichrome, reticulin.FINE NEEDLE ASPIRATE (FNA) [id number] 11:00:00 Test Item Value Reference Range Comments CYTOLOGY RESULT POINTER (BEAKER) (test See Separate Report ytow=0144) BASIC METABOLIC [id number] 06:09:00 Test Item Value Reference Range Comments SODIUM (BEAKER) (test 141 meq/L 136-145 zsjn=378) POTASSIUM (BEAKER) (test 4.0 meq/L 3.5-5.1 kjhn=818) CHLORIDE (BEAKER) (test 112 meq/L 98-107 cfvs=617) CO2 (BEAKER) (test 23 meq/L 22-29 djzu=415) BLOOD UREA NITROGEN 14 mg/dL 7-21 (BEAKER) (test vvuw=755) CREATININE (BEAKER) (test 1.57 mg/dL 0.57-1.25 rnhm=250) GLUCOSE RANDOM (BEAKER) 109 mg/dL 70-105 (test aiio=998) CALCIUM (BEAKER) (test 8.3 mg/dL 8.4-10.2 jhvd=398) EGFR (BEAKER) (test 45 mL/min/1.73 sq m ESTIMATED GFR IS NOT orpg=4340) ACCURATE CREATININE CLEARANCE IN PREDICTING GLOMERULAR FILTRATION RATE. ESTIMATED GFR IS NOT APPLICABLE FOR DIALYSIS PATIENTS. CBC (HEMOGRAM ONLY)2018-02-16 05:41:00 Test Item Value Reference Range Comments WHITE BLOOD CELL COUNT (BEAKER) (test bklf=798) 6.6 K/ L 3.5-10.5 RED BLOOD CELL COUNT (BEAKER) (test nrxe=055) 2.98 M/ L 4.63-6.08 HEMOGLOBIN (BEAKER) (test cxrh=610) 8.9 GM/DL 13.7-17.5 HEMATOCRIT (BEAKER) (test jfzp=609) 28.6 % 40.1-51.0 MEAN CORPUSCULAR VOLUME (BEAKER) (test xlup=253) 96.0 fL 79.0-92.2 MEAN CORPUSCULAR HEMOGLOBIN (BEAKER) (test 29.9 pg 25.7-32.2 odet=705) MEAN CORPUSCULAR HEMOGLOBIN CONC (BEAKER) (test 31.1 GM/DL 32.3-36.5 usdq=990) RED CELL DISTRIBUTION WIDTH (BEAKER) (test 14.7 % 11.6-14.4 hoeg=337) PLATELET COUNT (BEAKER) (test mvhw=972) 206 K/CU MM 150-450 MEAN PLATELET VOLUME (BEAKER) (test ogar=089) 8.9 fL 9.4-12.4 NUCLEATED RED BLOOD CELLS (BEAKER) (test 0 /100 WBC 0-0 evag=334) BASIC METABOLIC [id number] 05:52:00 Test Item Value Reference Range Comments SODIUM (BEAKER) (test 141 meq/L 136-145 oykx=968) POTASSIUM (BEAKER) (test 4.1 meq/L 3.5-5.1 enyf=079) CHLORIDE (BEAKER) (test 110 meq/L 98-107 diqc=453) CO2 (BEAKER) (test 25 meq/L 22-29 svyl=385) BLOOD UREA NITROGEN 14 mg/dL 7-21 (BEAKER) (test ndig=292) CREATININE (BEAKER) (test 1.82 mg/dL 0.57-1.25 oomc=200) GLUCOSE RANDOM (BEAKER) 118 mg/dL 70-105 (test jexg=494) CALCIUM (BEAKER) (test 8.5 mg/dL 8.4-10.2 lmae=294) EGFR (BEAKER) (test 38 mL/min/1.73 sq m ESTIMATED GFR IS NOT xxcs=5377) ACCURATE CREATININE CLEARANCE IN PREDICTING GLOMERULAR FILTRATION RATE. ESTIMATED GFR IS NOT APPLICABLE FOR DIALYSIS PATIENTS. CBC (HEMOGRAM ONLY)2018-02-15 05:12:00 Test Item Value Reference Range Comments WHITE BLOOD CELL COUNT (BEAKER) (test evtd=675) 7.2 K/ L 3.5-10.5 RED BLOOD CELL COUNT (BEAKER) (test qckz=760) 2.94 M/ L 4.63-6.08 HEMOGLOBIN (BEAKER) (test tfqc=659) 8.7 GM/DL 13.7-17.5 HEMATOCRIT (BEAKER) (test lewx=808) 28.2 % 40.1-51.0 MEAN CORPUSCULAR VOLUME (BEAKER) (test yrqr=053) 95.9 fL 79.0-92.2 MEAN CORPUSCULAR HEMOGLOBIN (BEAKER) (test 29.6 pg 25.7-32.2 tlcb=596) MEAN CORPUSCULAR HEMOGLOBIN CONC (BEAKER) (test 30.9 GM/DL 32.3-36.5 kcyy=641) RED CELL DISTRIBUTION WIDTH (BEAKER) (test 14.8 % 11.6-14.4 jndr=528) PLATELET COUNT (BEAKER) (test iysx=870) 227 K/CU MM 150-450 MEAN PLATELET VOLUME (BEAKER) (test ayzt=933) 9.2 fL 9.4-12.4 NUCLEATED RED BLOOD CELLS (BEAKER) (test 0 /100 WBC 0-0 pjtq=311) U/S, ABDOMINAL, [id number] 07:47:00Reason for exam:->liver massFINAL REPORT Ultrasound of abdomen, limited INDICATION: Liver mass COMPARISON: CT dated February 09, 2018 FINDINGS: Sonographic evaluation of the liver is performed in preparationfor biopsy of liver lesion seen on recent CT. However, no focal lesion is identified on ultrasound and biopsy was not performed. Signed: Joanne Diaz Verified Date/Time: 02/14/2018 07:47:16 Reading Location: [facility] Radiology Reading Room Electronically signed by: JOANNE DIAZ M.D. on02/14/2018 07:47 AMBASIC METABOLIC [id number] 06:19:00 Test Item Value Reference Range Comments SODIUM (BEAKER) (test 140 meq/L 136-145 hgnq=730) POTASSIUM (BEAKER) (test 3.9 meq/L 3.5-5.1 zwjy=549) CHLORIDE (BEAKER) (test 110 meq/L 98-107 lqbj=008) CO2 (BEAKER) (test 24 meq/L 22-29 qoya=705) BLOOD UREA NITROGEN 15 mg/dL 7-21 (BEAKER) (test isiv=328) CREATININE (BEAKER) (test 1.61 mg/dL 0.57-1.25 rgyc=075) GLUCOSE RANDOM (BEAKER) 105 mg/dL 70-105 (test orym=089) CALCIUM (BEAKER) (test 8.2 mg/dL 8.4-10.2 zyry=018) EGFR (BEAKER) (test 44 mL/min/1.73 sq m ESTIMATED GFR IS NOT juhb=6267) ACCURATE CREATININE CLEARANCE IN PREDICTING GLOMERULAR FILTRATION RATE. ESTIMATED GFR IS NOT APPLICABLE FOR DIALYSIS PATIENTS. CBC (HEMOGRAM ONLY)2018-02-14 05:42:00 Test Item Value Reference Range Comments WHITE BLOOD CELL COUNT (BEAKER) (test lfxj=126) 7.6 K/ L 3.5-10.5 RED BLOOD CELL COUNT (BEAKER) (test bure=830) 2.83 M/ L 4.63-6.08 HEMOGLOBIN (BEAKER) (test msiq=445) 8.3 GM/DL 13.7-17.5 HEMATOCRIT (BEAKER) (test xffr=863) 26.9 % 40.1-51.0 MEAN CORPUSCULAR VOLUME (BEAKER) (test gkpv=776) 95.1 fL 79.0-92.2 MEAN CORPUSCULAR HEMOGLOBIN (BEAKER) (test 29.3 pg 25.7-32.2 bknf=964) MEAN CORPUSCULAR HEMOGLOBIN CONC (BEAKER) (test 30.9 GM/DL 32.3-36.5 sfjk=427) RED CELL DISTRIBUTION WIDTH (BEAKER) (test 14.6 % 11.6-14.4 gztz=336) PLATELET COUNT (BEAKER) (test skum=194) 252 K/CU MM 150-450 MEAN PLATELET VOLUME (BEAKER) (test dnnl=430) 9.2 fL 9.4-12.4 NUCLEATED RED BLOOD CELLS (BEAKER) (test 0 /100 WBC 0-0 ilep=801) PROTEIN ELECTROPHORESIS, [id number] 14:00:00 Test Item Value Reference Range Comments ALBUMIN FRACTION (BEAKER) 2.6 g/dL 3.5-5.5 (test zzvo=799) ALPHA 1 FRACTION (BEAKER) 0.2 g/dL 0.2-0.4 (test gkhi=512) ALPHA 2 FRACTION (BEAKER) 0.6 g/dL 0.5-0.9 (test gspl=869) BETA FRACTION (BEAKER) (test 0.9 g/dL 0.6-1.1 ncyr=197) GAMMA GLOBULIN FRACTION 0.7 g/dL 0.7-1.7 (BEAKER) (test fdzy=380) INTERPRETATION-119 (BEAKER) Decreased albumin, suggestive of (test xbuw=0224) protein loss. Pattern otherwise consistent with mild acute inflammatory response. No monoclonal bands detected. [id number] Lilly Harris MD (BEAKER) (test zqhr=1472) (electronic signature) PROTEIN TOTAL SERUM, SPEP 5.0 gm/dL 6.0-8.3 (BEAKER) (test sher=6436) BASIC METABOLIC [id number] 05:12:00 Test Item Value Reference Range Comments SODIUM (BEAKER) (test 140 meq/L 136-145 dmwy=467) POTASSIUM (BEAKER) (test 3.8 meq/L 3.5-5.1 bxid=440) CHLORIDE (BEAKER) (test 111 meq/L 98-107 rcay=207) CO2 (BEAKER) (test 24 meq/L 22-29 ximo=166) BLOOD UREA NITROGEN 14 mg/dL 7-21 (BEAKER) (test sptk=805) CREATININE (BEAKER) (test 1.56 mg/dL 0.57-1.25 sdms=008) GLUCOSE RANDOM (BEAKER) 104 mg/dL 70-105 (test jkej=205) CALCIUM (BEAKER) (test 8.2 mg/dL 8.4-10.2 whtz=562) EGFR (BEAKER) (test 45 mL/min/1.73 sq m ESTIMATED GFR IS NOT zqed=7579) ACCURATE CREATININE CLEARANCE IN PREDICTING GLOMERULAR FILTRATION RATE. ESTIMATED GFR IS NOT APPLICABLE FOR DIALYSIS PATIENTS. PT/[id number] 04:59:00 Test Item Value Reference Range Comments PROTIME (BEAKER) (test mpxn=913) 14.5 seconds 11.7-14.7 INR (BEAKER) (test hfsd=628) 1.1 <=5.9 PARTIAL THROMBOPLASTIN TIME (BEAKER) (test 37.1 seconds 22.5-36.0 yevc=400) RECOMMENDED COUMADIN/WARFARIN INR THERAPY RANGESSTANDARD DOSE: 2.0 - 3.0 Includes: PROPHYLAXIS forvenous thrombosis, systemic embolization; TREATMENT for venous thrombosis and/or pulmonary embolus.HIGH RISK: Target INR is 2.5-3.5 for patients with mechanical heart valves.CBC (HEMOGRAM ONLY)2018-02-13 04:49:00 Test Item Value Reference Range Comments WHITE BLOOD CELL COUNT (BEAKER) (test dami=468) 8.9 K/ L 3.5-10.5 RED BLOOD CELL COUNT (BEAKER) (test oxfv=390) 2.95 M/ L 4.63-6.08 HEMOGLOBIN (BEAKER) (test ldht=010) 8.7 GM/DL 13.7-17.5 HEMATOCRIT (BEAKER) (test zjek=043) 27.9 % 40.1-51.0 MEAN CORPUSCULAR VOLUME (BEAKER) (test shry=294) 94.6 fL 79.0-92.2 MEAN CORPUSCULAR HEMOGLOBIN (BEAKER) (test 29.5 pg 25.7-32.2 edgl=873) MEAN CORPUSCULAR HEMOGLOBIN CONC (BEAKER) (test 31.2 GM/DL 32.3-36.5 fgyg=644) RED CELL DISTRIBUTION WIDTH (BEAKER) (test 14.5 % 11.6-14.4 biax=765) PLATELET COUNT (BEAKER) (test sfhh=839) 264 K/CU MM 150-450 MEAN PLATELET VOLUME (BEAKER) (test skug=023) 9.1 fL 9.4-12.4 NUCLEATED RED BLOOD CELLS (BEAKER) (test 0 /100 WBC 0-0 yqew=511) BASIC METABOLIC [id number] 06:13:00 Test Item Value Reference Range Comments SODIUM (BEAKER) (test 140 meq/L 136-145 tkrb=372) POTASSIUM (BEAKER) (test 3.9 meq/L 3.5-5.1 bqlg=962) CHLORIDE (BEAKER) (test 111 meq/L 98-107 mfjs=618) CO2 (BEAKER) (test 23 meq/L 22-29 iiex=007) BLOOD UREA NITROGEN 12 mg/dL 7-21 (BEAKER) (test auyt=714) CREATININE (BEAKER) (test 1.50 mg/dL 0.57-1.25 ggsz=820) GLUCOSE RANDOM (BEAKER) 100 mg/dL 70-105 (test hjiq=403) CALCIUM (BEAKER) (test 8.0 mg/dL 8.4-10.2 klrj=992) EGFR (BEAKER) (test 47 mL/min/1.73 sq m ESTIMATED GFR IS NOT fdnj=1523) ACCURATE CREATININE CLEARANCE IN PREDICTING GLOMERULAR FILTRATION RATE. ESTIMATED GFR IS NOT APPLICABLE FOR DIALYSIS PATIENTS. CBC (HEMOGRAM ONLY)2018-02-12 05:35:00 Test Item Value Reference Range Comments WHITE BLOOD CELL COUNT (BEAKER) (test kqwh=663) 9.1 K/ L 3.5-10.5 RED BLOOD CELL COUNT (BEAKER) (test jqpl=452) 2.89 M/ L 4.63-6.08 HEMOGLOBIN (BEAKER) (test dvmd=716) 8.5 GM/DL 13.7-17.5 HEMATOCRIT (BEAKER) (test duid=891) 27.2 % 40.1-51.0 MEAN CORPUSCULAR VOLUME (BEAKER) (test fosp=924) 94.1 fL 79.0-92.2 MEAN CORPUSCULAR HEMOGLOBIN (BEAKER) (test 29.4 pg 25.7-32.2 utyu=648) MEAN CORPUSCULAR HEMOGLOBIN CONC (BEAKER) (test 31.3 GM/DL 32.3-36.5 mobd=806) RED CELL DISTRIBUTION WIDTH (BEAKER) (test 14.2 % 11.6-14.4 xann=485) PLATELET COUNT (BEAKER) (test gclf=051) 295 K/CU MM 150-450 MEAN PLATELET VOLUME (BEAKER) (test vzeu=365) 9.1 fL 9.4-12.4 NUCLEATED RED BLOOD CELLS (BEAKER) (test 0 /100 WBC 0-0 hteg=016) BASIC METABOLIC [id number] 06:06:00 Test Item Value Reference Range Comments SODIUM (BEAKER) (test 143 meq/L 136-145 zkur=936) POTASSIUM (BEAKER) (test 3.9 meq/L 3.5-5.1 nwyo=177) CHLORIDE (BEAKER) (test 113 meq/L 98-107 zspg=029) CO2 (BEAKER) (test 25 meq/L 22-29 jvoc=608) BLOOD UREA NITROGEN 12 mg/dL 7-21 (BEAKER) (test bimh=677) CREATININE (BEAKER) (test 1.79 mg/dL 0.57-1.25 osjz=686) GLUCOSE RANDOM (BEAKER) 109 mg/dL 70-105 (test ukhq=645) CALCIUM (BEAKER) (test 8.0 mg/dL 8.4-10.2 ycpw=722) EGFR (BEAKER) (test 39 mL/min/1.73 sq m ESTIMATED GFR IS NOT cudp=1818) ACCURATE CREATININE CLEARANCE IN PREDICTING GLOMERULAR FILTRATION RATE. ESTIMATED GFR IS NOT APPLICABLE FOR DIALYSIS PATIENTS. CBC (HEMOGRAM ONLY)2018-02-11 05:09:00 Test Item Value Reference Range Comments WHITE BLOOD CELL COUNT (BEAKER) (test hvhm=356) 6.3 K/ L 3.5-10.5 RED BLOOD CELL COUNT (BEAKER) (test agft=570) 2.75 M/ L 4.63-6.08 HEMOGLOBIN (BEAKER) (test scmj=271) 8.1 GM/DL 13.7-17.5 HEMATOCRIT (BEAKER) (test zbjm=540) 25.8 % 40.1-51.0 MEAN CORPUSCULAR VOLUME (BEAKER) (test yuft=066) 93.8 fL 79.0-92.2 MEAN CORPUSCULAR HEMOGLOBIN (BEAKER) (test 29.5 pg 25.7-32.2 lctq=503) MEAN CORPUSCULAR HEMOGLOBIN CONC (BEAKER) (test 31.4 GM/DL 32.3-36.5 abwk=697) RED CELL DISTRIBUTION WIDTH (BEAKER) (test 14.4 % 11.6-14.4 hjkg=176) PLATELET COUNT (BEAKER) (test qmdv=678) 301 K/CU MM 150-450 MEAN PLATELET VOLUME (BEAKER) (test pysd=662) 8.9 fL 9.4-12.4 NUCLEATED RED BLOOD CELLS (BEAKER) (test 0 /100 WBC 0-0 jbip=737) [id number] 18:24:00 Test Item Value Reference Range Comments FERRITIN (BEAKER) (test kcwk=126) 36 ng/mL 5-275 VITAMIN D, [id number] 10:53:00 Test Item Value Reference Range Comments VITAMIN D 25-OH (BEAKER) (test fvzk=0858) 10.7 ng/mL 6.6-49.9 Effective 02/02/2017: Reference Range ChangeNew: 6.6-49.9 ng/mL Previous: 13.0 -47.8 ng/mLRecommended Vitamin D Target Range: 30.0-40.0 ng/mLIRON, TIBC, % SAT. (WITHOUT FERRITIN)2018-02-10 08:06:00 Test Item Value Reference Range Comments IRON (BEAKER) (test fnzj=165) 26 ug/dL 40-160 TOTAL IRON BINDING CAPACITY (BEAKER) (test 274 ug/dL 250-450 ntso=018) IRON % SATURATION (2) (BEAKER) (test iqae=7483) 9 % 20-55 CARCINOEMBRYONIC ANTIGEN (CEA)2018-02-10 08:00:00 Test Item Value Reference Range Comments CARCINOEMBRYONIC ANTIGEN (BEAKER) (test nnli=749) 2.6 ng/mL 0.0-5.0 PTH, [id number] 07:29:00 Test Item Value Reference Range Comments PARATHYROID HORMONE INTACT (BEAKER) (test 78.6 pg/mL 8.5-72.5 tliy=836) URIC [id number] 06:42:00 Test Item Value Reference Range Comments URIC ACID (BEAKER) (test mlgn=600) 6.2 mg/dL 2.6-7.2 BASIC METABOLIC [id number] 06:42:00 Test Item Value Reference Range Comments SODIUM (BEAKER) (test 140 meq/L 136-145 ukwc=706) POTASSIUM (BEAKER) (test 4.3 meq/L 3.5-5.1 lcyo=094) CHLORIDE (BEAKER) (test 110 meq/L 98-107 wsdl=722) CO2 (BEAKER) (test 24 meq/L 22-29 zozd=741) BLOOD UREA NITROGEN 14 mg/dL 7-21 (BEAKER) (test dymm=046) CREATININE (BEAKER) (test 1.65 mg/dL 0.57-1.25 nzcu=141) GLUCOSE RANDOM (BEAKER) 109 mg/dL 70-105 (test vzqg=769) CALCIUM (BEAKER) (test 8.0 mg/dL 8.4-10.2 wkal=913) EGFR (BEAKER) (test 42 mL/min/1.73 sq m ESTIMATED GFR IS NOT gzcd=1500) ACCURATE CREATININE CLEARANCE IN PREDICTING GLOMERULAR FILTRATION RATE. ESTIMATED GFR IS NOT APPLICABLE FOR DIALYSIS PATIENTS. CBC (HEMOGRAM ONLY)2018-02-10 06:06:00 Test Item Value Reference Range Comments WHITE BLOOD CELL COUNT (BEAKER) (test nypt=234) 7.6 K/ L 3.5-10.5 RED BLOOD CELL COUNT (BEAKER) (test mfde=131) 2.90 M/ L 4.63-6.08 HEMOGLOBIN (BEAKER) (test zxmf=229) 8.6 GM/DL 13.7-17.5 HEMATOCRIT (BEAKER) (test qpjf=193) 27.6 % 40.1-51.0 MEAN CORPUSCULAR VOLUME (BEAKER) (test fbhr=754) 95.2 fL 79.0-92.2 MEAN CORPUSCULAR HEMOGLOBIN (BEAKER) (test 29.7 pg 25.7-32.2 mqyd=767) MEAN CORPUSCULAR HEMOGLOBIN CONC (BEAKER) (test 31.2 GM/DL 32.3-36.5 zkhl=074) RED CELL DISTRIBUTION WIDTH (BEAKER) (test 14.6 % 11.6-14.4 jcvu=191) PLATELET COUNT (BEAKER) (test yltx=771) 296 K/CU MM 150-450 MEAN PLATELET VOLUME (BEAKER) (test gcof=877) 9.2 fL 9.4-12.4 NUCLEATED RED BLOOD CELLS (BEAKER) (test 0 /100 WBC 0-0 iqrv=375) CT, CHEST, WITH [id number] 00:28:00FINAL REPORT CT, CHEST, WITH CONTRAST, CT, [...] MDReport Verified Date/Time: 02/10/2018 00:28:46 Reading Location: [facility] C013Y CT Body Reading Room CT, [id number] 00:28:00FINAL REPORT CT, CHEST, WITH CONTRAST, CT, [...] DUNLAPeport Verified Date/Time: 02/10/2018 00:28:46 Reading Location: [facility] C013Y CT Body Reading Room PROTEIN, RANDOM [id number] 18:49:00 Test Item Value Reference Range Comments PROTEIN, URINE (BEAKER) (test jtew=8036) < mg/dL 0-14 BASIC METABOLIC [id number] 06:59:00 Test Item Value Reference Range Comments SODIUM (BEAKER) (test 142 meq/L 136-145 ndbs=800) POTASSIUM (BEAKER) (test 4.4 meq/L 3.5-5.1 htyk=614) CHLORIDE (BEAKER) (test 114 meq/L 98-107 bxmn=106) CO2 (BEAKER) (test 23 meq/L 22-29 sdpi=705) BLOOD UREA NITROGEN 14 mg/dL 7-21 (BEAKER) (test uesz=165) CREATININE (BEAKER) (test 1.58 mg/dL 0.57-1.25 lelp=894) GLUCOSE RANDOM (BEAKER) 95 mg/dL 70-105 (test heli=174) CALCIUM (BEAKER) (test 7.9 mg/dL 8.4-10.2 bkze=416) EGFR (BEAKER) (test 45 mL/min/1.73 sq m ESTIMATED GFR IS NOT duvc=3135) ACCURATE CREATININE CLEARANCE IN PREDICTING GLOMERULAR FILTRATION RATE. ESTIMATED GFR IS NOT APPLICABLE FOR DIALYSIS PATIENTS. CBC (HEMOGRAM ONLY)2018-02-09 04:22:00 Test Item Value Reference Range Comments WHITE BLOOD CELL COUNT (BEAKER) (test mxge=169) 7.9 K/ L 3.5-10.5 RED BLOOD CELL COUNT (BEAKER) (test llck=557) 2.81 M/ L 4.63-6.08 HEMOGLOBIN (BEAKER) (test iuig=018) 8.5 GM/DL 13.7-17.5 HEMATOCRIT (BEAKER) (test rppk=344) 27.3 % 40.1-51.0 MEAN CORPUSCULAR VOLUME (BEAKER) (test zygr=917) 97.2 fL 79.0-92.2 MEAN CORPUSCULAR HEMOGLOBIN (BEAKER) (test 30.2 pg 25.7-32.2 zxnv=451) MEAN CORPUSCULAR HEMOGLOBIN CONC (BEAKER) (test 31.1 GM/DL 32.3-36.5 xiuy=522) RED CELL DISTRIBUTION WIDTH (BEAKER) (test 14.9 % 11.6-14.4 oeuo=206) PLATELET COUNT (BEAKER) (test fani=708) 294 K/CU MM 150-450 MEAN PLATELET VOLUME (BEAKER) (test ccdn=278) 9.4 fL 9.4-12.4 NUCLEATED RED BLOOD CELLS (BEAKER) (test 0 /100 WBC 0-0 helb=313) [id number] 15:28:00 Test Item Value Reference Range Comments ACTIVATED CLOTTING TIME 114 sec TESTED AT [place] [id number] [facility] (BEAKER) (test hurg=659) [place] [address] [id number] 14:58:00 Test Item Value Reference Range Comments ACTIVATED CLOTTING TIME 191 sec TESTED AT [address] (BEAKER) (test ebib=205) [place] [address] BASIC METABOLIC [id number] 07:24:00 Test Item Value Reference Range Comments SODIUM (BEAKER) (test 141 meq/L 136-145 xcdb=880) POTASSIUM (BEAKER) (test 4.1 meq/L 3.5-5.1 jdoq=777) CHLORIDE (BEAKER) (test 116 meq/L 98-107 cavj=328) CO2 (BEAKER) (test 20 meq/L 22-29 ayqn=416) BLOOD UREA NITROGEN 16 mg/dL 7-21 (BEAKER) (test fmrh=004) CREATININE (BEAKER) (test 1.68 mg/dL 0.57-1.25 odze=019) GLUCOSE RANDOM (BEAKER) 106 mg/dL 70-105 (test ambo=123) CALCIUM (BEAKER) (test 7.9 mg/dL 8.4-10.2 xvgl=409) EGFR (BEAKER) (test 42 mL/min/1.73 sq m ESTIMATED GFR IS NOT ncma=6803) ACCURATE CREATININE CLEARANCE IN PREDICTING GLOMERULAR FILTRATION RATE. ESTIMATED GFR IS NOT APPLICABLE FOR DIALYSIS PATIENTS. PROTHROMBIN [id number] 06:29:00 Test Item Value Reference Range Comments PROTIME (BEAKER) (test odlh=674) 14.4 seconds 11.7-14.7 INR (BEAKER) (test swsz=514) 1.1 <=5.9 RECOMMENDED COUMADIN/WARFARIN INR THERAPY RANGESSTANDARD DOSE: 2.0 - 3.0 Includes: PROPHYLAXIS forvenous thrombosis, systemic embolization; TREATMENT for venous thrombosis and/or pulmonary embolus.HIGH RISK: Target INR is 2.5-3.5 for patients with mechanical heart valves.CBC (HEMOGRAM ONLY)2018-02-08 06:13:00 Test Item Value Reference Range Comments WHITE BLOOD CELL COUNT (BEAKER) (test nfva=058) 7.2 K/ L 3.5-10.5 RED BLOOD CELL COUNT (BEAKER) (test kcks=432) 2.86 M/ L 4.63-6.08 HEMOGLOBIN (BEAKER) (test yfcc=407) 8.7 GM/DL 13.7-17.5 HEMATOCRIT (BEAKER) (test tbdf=515) 28.1 % 40.1-51.0 MEAN CORPUSCULAR VOLUME (BEAKER) (test gjgx=225) 98.3 fL 79.0-92.2 MEAN CORPUSCULAR HEMOGLOBIN (BEAKER) (test 30.4 pg 25.7-32.2 grab=163) MEAN CORPUSCULAR HEMOGLOBIN CONC (BEAKER) (test 31.0 GM/DL 32.3-36.5 tfcm=494) RED CELL DISTRIBUTION WIDTH (BEAKER) (test 14.8 % 11.6-14.4 edjp=698) PLATELET COUNT (BEAKER) (test bokx=579) 317 K/CU MM 150-450 MEAN PLATELET VOLUME (BEAKER) (test igdr=607) 9.2 fL 9.4-12.4 NUCLEATED RED BLOOD CELLS (BEAKER) (test 0 /100 WBC 0-0 bpqz=343) BASIC METABOLIC [id number] 07:01:00 Test Item Value Reference Range Comments SODIUM (BEAKER) (test 140 meq/L 136-145 hkzy=943) POTASSIUM (BEAKER) (test 4.2 meq/L 3.5-5.1 jyyh=405) CHLORIDE (BEAKER) (test 113 meq/L 98-107 rzmu=968) CO2 (BEAKER) (test 21 meq/L 22-29 odwt=866) BLOOD UREA NITROGEN 18 mg/dL 7-21 (BEAKER) (test vdox=399) CREATININE (BEAKER) (test 1.51 mg/dL 0.57-1.25 osio=632) GLUCOSE RANDOM (BEAKER) 102 mg/dL 70-105 (test elmc=150) CALCIUM (BEAKER) (test 8.1 mg/dL 8.4-10.2 xdwd=638) EGFR (BEAKER) (test 47 mL/min/1.73 sq m ESTIMATED GFR IS NOT vgty=1710) ACCURATE CREATININE CLEARANCE IN PREDICTING GLOMERULAR FILTRATION RATE. ESTIMATED GFR IS NOT APPLICABLE FOR DIALYSIS PATIENTS. PROTHROMBIN TIME/[id number] 05:33:00 Test Item Value Reference Range Comments PROTIME (BEAKER) (test daln=044) 15.3 seconds 11.7-14.7 INR (BEAKER) (test czdj=811) 1.2 <=5.9 RECOMMENDED COUMADIN/WARFARIN INR THERAPY RANGESSTANDARD DOSE: 2.0 - 3.0 Includes: PROPHYLAXIS forvenous thrombosis, systemic embolization; TREATMENT for venous thrombosis and/or pulmonary embolus.HIGH RISK: Target INR is 2.5-3.5 for patients with mechanical heart valves.CBC (HEMOGRAM ONLY)2018-02-07 05:10:00 Test Item Value Reference Range Comments WHITE BLOOD CELL COUNT (BEAKER) (test jqlt=128) 9.9 K/ L 3.5-10.5 RED BLOOD CELL COUNT (BEAKER) (test crfs=178) 2.56 M/ L 4.63-6.08 HEMOGLOBIN (BEAKER) (test pdtt=530) 7.6 GM/DL 13.7-17.5 HEMATOCRIT (BEAKER) (test hefs=690) 24.4 % 40.1-51.0 MEAN CORPUSCULAR VOLUME (BEAKER) (test zlmo=740) 95.3 fL 79.0-92.2 MEAN CORPUSCULAR HEMOGLOBIN (BEAKER) (test 29.7 pg 25.7-32.2 rnvo=723) MEAN CORPUSCULAR HEMOGLOBIN CONC (BEAKER) (test 31.1 GM/DL 32.3-36.5 vamh=223) RED CELL DISTRIBUTION WIDTH (BEAKER) (test 15.2 % 11.6-14.4 qrrj=840) PLATELET COUNT (BEAKER) (test ijam=609) 355 K/CU MM 150-450 MEAN PLATELET VOLUME (BEAKER) (test dtdn=392) 9.2 fL 9.4-12.4 NUCLEATED RED BLOOD CELLS (BEAKER) (test 0 /100 WBC 0-0 kjej=467) HEMOGLOBIN AND [id number] 21:29:00 Test Item Value Reference Range Comments HEMOGLOBIN (BEAKER) (test rmnu=267) 7.5 GM/DL 13.7-17.5 HEMATOCRIT (BEAKER) (test ylgm=772) 23.2 % 40.1-51.0 PROTHROMBIN TIME/[id number] 10:11:00 Test Item Value Reference Range Comments PROTIME (BEAKER) (test clod=900) 19.0 seconds 11.7-14.7 INR (BEAKER) (test juvu=533) 1.6 <=5.9 RECOMMENDED COUMADIN/WARFARIN INR THERAPY RANGESSTANDARD DOSE: 2.0 - 3.0 Includes: PROPHYLAXIS forvenous thrombosis, systemic embolization; TREATMENT for venous thrombosis and/or pulmonary embolus.HIGH RISK: Target INR is 2.5-3.5 for patients with mechanical heart valves.HEMOGLOBIN AND [id number] 10 :03:00 Test Item Value Reference Range Comments HEMOGLOBIN (BEAKER) (test spyh=394) 8.3 GM/DL 13.7-17.5 HEMATOCRIT (BEAKER) (test knni=156) 25.9 % 40.1-51.0 BASIC METABOLIC [id number] 23:30:00 Test Item Value Reference Range Comments SODIUM (BEAKER) (test 138 meq/L 136-145 kauj=627) POTASSIUM (BEAKER) (test 4.2 meq/L 3.5-5.1 thpi=679) CHLORIDE (BEAKER) (test 114 meq/L 98-107 bvny=953) CO2 (BEAKER) (test 20 meq/L 22-29 kqmv=123) BLOOD UREA NITROGEN 25 mg/dL 7-21 (BEAKER) (test clty=132) CREATININE (BEAKER) (test 1.83 mg/dL 0.57-1.25 trop=595) GLUCOSE RANDOM (BEAKER) 104 mg/dL 70-105 (test kcgn=134) CALCIUM (BEAKER) (test 7.7 mg/dL 8.4-10.2 kvye=140) EGFR (BEAKER) (test 38 mL/min/1.73 sq m ESTIMATED GFR IS NOT zwbi=4423) ACCURATE CREATININE CLEARANCE IN PREDICTING GLOMERULAR FILTRATION RATE. ESTIMATED GFR IS NOT APPLICABLE FOR DIALYSIS PATIENTS. HEPATIC FUNCTION [id number] 23:04:00 Test Item Value Reference Range Comments TOTAL PROTEIN (BEAKER) (test cpwd=125) 5.1 gm/dL 6.0-8.3 ALBUMIN (BEAKER) (test uyos=0528) 3.0 g/dL 3.5-5.0 BILIRUBIN TOTAL (BEAKER) (test stls=437) 0.3 mg/dL 0.2-1.2 BILIRUBIN DIRECT (BEAKER) (test svqd=622) 0.1 mg/dL 0.1-0.5 ALKALINE PHOSPHATASE (BEAKER) (test zjad=615) 67 U/L 40-150 AST (SGOT) (BEAKER) (test vxpv=322) 16 U/L 5-34 ALT (SGPT) (BEAKER) (test zklj=358) 17 U/L 6-55 [id number] 23:03:00 Test Item Value Reference Range Comments PARTIAL THROMBOPLASTIN TIME (BEAKER) (test 44.4 seconds 22.5-36.0 dkzg=831) PROTHROMBIN TIME/[id number] 23:02:00 Test Item Value Reference Range Comments PROTIME (BEAKER) (test teep=938) 34.9 seconds 11.7-14.7 INR (BEAKER) (test ujch=436) 3.5 <=5.9 RECOMMENDED COUMADIN/WARFARIN INR THERAPY RANGESSTANDARD DOSE: 2.0 - 3.0 Includes: PROPHYLAXIS forvenous thrombosis, systemic embolization; TREATMENT for venous thrombosis and/or pulmonary embolus.HIGH RISK: Target INR is 2.5-3.5 for patients with mechanical heart valves.CBC W/PLT COUNT & AUTO [id number] 22:47:00 Test Item Value Reference Range Comments WHITE BLOOD CELL COUNT (BEAKER) (test lcjv=192) 10.5 K/ L 3.5-10.5 RED BLOOD CELL COUNT (BEAKER) (test uerj=461) 2.01 M/ L 4.63-6.08 HEMOGLOBIN (BEAKER) (test iylv=758) 6.1 GM/DL 13.7-17.5 HEMATOCRIT (BEAKER) (test zuvv=816) 19.3 % 40.1-51.0 MEAN CORPUSCULAR VOLUME (BEAKER) (test axsg=108) 96.0 fL 79.0-92.2 MEAN CORPUSCULAR HEMOGLOBIN (BEAKER) (test 30.3 pg 25.7-32.2 kwtj=039) MEAN CORPUSCULAR HEMOGLOBIN CONC (BEAKER) (test 31.6 GM/DL 32.3-36.5 clju=372) RED CELL DISTRIBUTION WIDTH (BEAKER) (test 15.0 % 11.6-14.4 ysus=297) PLATELET COUNT (BEAKER) (test yyoh=721) 377 K/CU MM 150-450 MEAN PLATELET VOLUME (BEAKER) (test yxqt=078) 8.7 fL 9.4-12.4 NUCLEATED RED BLOOD CELLS (BEAKER) (test 0 /100 WBC 0-0 fpnj=719) NEUTROPHILS RELATIVE PERCENT (BEAKER) (test 68 % kmpc=639) LYMPHOCYTES RELATIVE PERCENT (BEAKER) (test 24 % corv=043) MONOCYTES RELATIVE PERCENT (BEAKER) (test 6 % nigk=415) EOSINOPHILS RELATIVE PERCENT (BEAKER) (test 2 % brvk=871) BASOPHILS RELATIVE PERCENT (BEAKER) (test 0 % kazb=182) NEUTROPHILS ABSOLUTE COUNT (BEAKER) (test 7.11 K/ L 1.78-5.38 gvoi=656) LYMPHOCYTES ABSOLUTE COUNT (BEAKER) (test 2.46 K/ L 1.32-3.57 jenp=050) MONOCYTES ABSOLUTE COUNT (BEAKER) (test 0.65 K/ L 0.30-0.82 bkbw=561) EOSINOPHILS ABSOLUTE COUNT (BEAKER) (test 0.17 K/ L 0.04-0.54 rbvt=986) BASOPHILS ABSOLUTE COUNT (BEAKER) (test 0.04 K/ L 0.01-0.08 smjp=701) IMMATURE GRANULOCYTES-RELATIVE PERCENT (BEAKER) 1 % 0-1 (test crmi=1737) [id number] 05:35:00 Test Item Value Reference Range Comments PHOSPHORUS (BEAKER) (test tzsr=812) 2.7 mg/dL 2.3-4.7 [id number] 05:35:00 Test Item Value Reference Range Comments MAGNESIUM (BEAKER) (test rgia=330) 1.8 mg/dL 1.6-2.6 BASIC METABOLIC [id number] 05:35:00 Test Item Value Reference Range Comments SODIUM (BEAKER) (test 138 meq/L 136-145 ftal=238) POTASSIUM (BEAKER) (test 4.2 meq/L 3.5-5.1 burt=987) CHLORIDE (BEAKER) (test 109 meq/L 98-107 kxmr=563) CO2 (BEAKER) (test 25 meq/L 22-29 vvhd=340) BLOOD UREA NITROGEN 13 mg/dL 7-21 (BEAKER) (test ggwb=088) CREATININE (BEAKER) (test 1.49 mg/dL 0.57-1.25 pebb=113) GLUCOSE RANDOM (BEAKER) 104 mg/dL 70-105 (test gueu=159) CALCIUM (BEAKER) (test 8.4 mg/dL 8.4-10.2 qhye=035) EGFR (BEAKER) (test 48 mL/min/1.73 sq m ESTIMATED GFR IS NOT ukuy=5630) ACCURATE CREATININE CLEARANCE IN PREDICTING GLOMERULAR FILTRATION RATE. ESTIMATED GFR IS NOT APPLICABLE FOR DIALYSIS PATIENTS. [id number] 05:29:00 Test Item Value Reference Range Comments PARTIAL THROMBOPLASTIN TIME (BEAKER) (test 130.9 seconds 22.5-36.0 qyjl=759) PROTHROMBIN [id number] 05:17:00 Test Item Value Reference Range Comments PROTIME (BEAKER) (test emll=265) 24.2 seconds 11.7-14.7 INR (BEAKER) (test jmpi=302) 2.2 <=5.9 RECOMMENDED COUMADIN/WARFARIN INR THERAPY RANGESSTANDARD DOSE: 2.0 - 3.0 Includes: PROPHYLAXIS forvenous thrombosis, systemic embolization; TREATMENT for venous thrombosis and/or pulmonary embolus.HIGH RISK: Target INR is 2.5-3.5 for patients with mechanical heart valves.[id number] 00:15:00 Test Item Value Reference Range Comments PARTIAL THROMBOPLASTIN TIME (BEAKER) (test 76.8 seconds 22.5-36.0 wbpr=186) [id number] 16:54:00 Test Item Value Reference Range Comments PARTIAL THROMBOPLASTIN TIME (BEAKER) (test 47.3 seconds 22.5-36.0 fuyv=229) [id number] 14:53:00 Test Item Value Reference Range Comments PARTIAL THROMBOPLASTIN TIME (BEAKER) (test 125.8 seconds 22.5-36.0 dlra=322) CBC (HEMOGRAM ONLY)2018-01-27 14:31:00 Test Item Value Reference Range Comments WHITE BLOOD CELL COUNT (BEAKER) (test woes=321) 8.3 K/ L 3.5-10.5 RED BLOOD CELL COUNT (BEAKER) (test miyw=913) 3.28 M/ L 4.63-6.08 HEMOGLOBIN (BEAKER) (test leby=211) 9.8 GM/DL 13.7-17.5 HEMATOCRIT (BEAKER) (test jeco=212) 31.4 % 40.1-51.0 MEAN CORPUSCULAR VOLUME (BEAKER) (test meil=969) 95.7 fL 79.0-92.2 MEAN CORPUSCULAR HEMOGLOBIN (BEAKER) (test 29.9 pg 25.7-32.2 afjg=760) MEAN CORPUSCULAR HEMOGLOBIN CONC (BEAKER) (test 31.2 GM/DL 32.3-36.5 nruz=937) RED CELL DISTRIBUTION WIDTH (BEAKER) (test 14.0 % 11.6-14.4 tmvc=867) PLATELET COUNT (BEAKER) (test stpd=444) 230 K/CU MM 150-450 MEAN PLATELET VOLUME (BEAKER) (test tavm=365) 9.7 fL 9.4-12.4 NUCLEATED RED BLOOD CELLS (BEAKER) (test 0 /100 WBC 0-0 iejn=015) PROTHROMBIN TIME/[id number] 08:29:00 Test Item Value Reference Range Comments PROTIME (BEAKER) (test tuof=919) 16.1 seconds 11.7-14.7 INR (BEAKER) (test hiys=769) 1.3 <=5.9 RECOMMENDED COUMADIN/WARFARIN INR THERAPY RANGESSTANDARD DOSE: 2.0 - 3.0 Includes: PROPHYLAXIS forvenous thrombosis, systemic embolization; TREATMENT for venous thrombosis and/or pulmonary embolus.HIGH RISK: Target INR is 2.5-3.5 for patients with mechanical heart valves.6 hours after starting heparin infusion and as indicated per sliding [id number] 07:17:00 Test Item Value Reference Range Comments PHOSPHORUS (BEAKER) (test zthz=253) 2.1 mg/dL 2.3-4.7 [id number] 07:17:00 Test Item Value Reference Range Comments MAGNESIUM (BEAKER) (test atpq=875) 2.0 mg/dL 1.6-2.6 BASIC METABOLIC [id number] 07:17:00 Test Item Value Reference Range Comments SODIUM (BEAKER) (test 138 meq/L 136-145 jftd=233) POTASSIUM (BEAKER) (test 4.2 meq/L 3.5-5.1 sqns=988) CHLORIDE (BEAKER) (test 109 meq/L 98-107 rkvu=489) CO2 (BEAKER) (test 25 meq/L 22-29 kfqc=548) BLOOD UREA NITROGEN 15 mg/dL 7-21 (BEAKER) (test zdwh=078) CREATININE (BEAKER) (test 1.47 mg/dL 0.57-1.25 svgj=280) GLUCOSE RANDOM (BEAKER) 106 mg/dL 70-105 (test unlr=121) CALCIUM (BEAKER) (test 8.3 mg/dL 8.4-10.2 mxye=479) EGFR (BEAKER) (test 49 mL/min/1.73 sq m ESTIMATED GFR IS NOT eccb=8672) ACCURATE CREATININE CLEARANCE IN PREDICTING GLOMERULAR FILTRATION RATE. ESTIMATED GFR IS NOT APPLICABLE FOR DIALYSIS PATIENTS. [id number] 07:07:00 Test Item Value Reference Range Comments PARTIAL THROMBOPLASTIN TIME (BEAKER) (test 107.3 seconds 22.5-36.0 vbhs=698) 6 hours after starting heparin infusion and as indicated per sliding scaleCBC ( HEMOGRAM ONLY)2018-01-27 06:30:00 Test Item Value Reference Range Comments WHITE BLOOD CELL COUNT (BEAKER) (test dsxm=735) 8.3 K/ L 3.5-10.5 RED BLOOD CELL COUNT (BEAKER) (test jfqw=657) 3.38 M/ L 4.63-6.08 HEMOGLOBIN (BEAKER) (test xrjp=103) 10.1 GM/DL 13.7-17.5 HEMATOCRIT (BEAKER) (test gesx=068) 32.3 % 40.1-51.0 MEAN CORPUSCULAR VOLUME (BEAKER) (test ackr=958) 95.6 fL 79.0-92.2 MEAN CORPUSCULAR HEMOGLOBIN (BEAKER) (test 29.9 pg 25.7-32.2 homy=089) MEAN CORPUSCULAR HEMOGLOBIN CONC (BEAKER) (test 31.3 GM/DL 32.3-36.5 okgd=410) RED CELL DISTRIBUTION WIDTH (BEAKER) (test 13.9 % 11.6-14.4 qzpr=039) PLATELET COUNT (BEAKER) (test ugmp=346) 181 K/CU MM 150-450 MEAN PLATELET VOLUME (BEAKER) (test qnhu=594) 9.4 fL 9.4-12.4 NUCLEATED RED BLOOD CELLS (BEAKER) (test 0 /100 WBC 0-0 txew=791) [id number] 01:12:00 Test Item Value Reference Range Comments PARTIAL THROMBOPLASTIN TIME (BEAKER) (test 98.7 seconds 22.5-36.0 qyum=972) TISSUE [id number] 19:09:00Surgical Pathology Report Case: [id number] Authorizing Provider: Humza Oconnor MD Collected: 01/23/2018 1710 Ordering Location: [facility] CV Recovery Room 2 Received: 01/24/2018 0943 Pathologist: Timothy Mendoza MD Specimen: Soft Tissue, Other, RIGHT VASCULAR THROMBUS/CLOT SOFT TISSUE/THROMBUS, LEG, "RIGHT VASCULAR", THROMBECTOMY- FRAGMENTS OF THROMBUS Signing Pathologist Direct Phone Line: [phone] signed by Timothy Mendoza MD on 01/26/2018 at 7:09 [id number] vascular thrombusThe specimen is received in saline labeled with the patient's information labeled "right vascular thrombus" and consists of multiple fragments of blood clot measuring 3 x 2 x 0.5 cm in aggregate. Tube Blower portions submitted A1. CG/ pl [id number] 18:00:00 Test Item Value Reference Range Comments PARTIAL THROMBOPLASTIN TIME (BEAKER) (test 57.7 seconds 22.5-36.0 epuu=940) POCT-GLUCOSE [id number] 09:17:00 Test Item Value Reference Range Comments POC-GLUCOSE METER (BEAKER) 129 mg/dL 70-110 TESTED AT [address] (test thzb=0239) [place] [address] [id number] 09:01:00 Test Item Value Reference Range Comments PARTIAL THROMBOPLASTIN TIME (BEAKER) (test 68.7 seconds 22.5-36.0 ckcg=495) [id number] 01:45:00 Test Item Value Reference Range Comments PARTIAL THROMBOPLASTIN TIME (BEAKER) (test 45.8 seconds 22.5-36.0 ivwg=046) PROTHROMBIN [id number] 01:43:00 Test Item Value Reference Range Comments PROTIME (BEAKER) (test luvu=599) 13.7 seconds 11.7-14.7 INR (BEAKER) (test qvca=588) 1.1 <=5.9 RECOMMENDED COUMADIN/WARFARIN INR THERAPY RANGESSTANDARD DOSE: 2.0 - 3.0 Includes: PROPHYLAXIS forvenous thrombosis, systemic embolization; TREATMENT for venous thrombosis and/or pulmonary embolus.HIGH RISK: Target INR is 2.5-3.5 for patients with mechanical heart valves.POCT-GLUCOSE [id number] 21:14:00 Test Item Value Reference Range Comments POC-GLUCOSE METER (BEAKER) 115 mg/dL 70-110 TESTED AT [address] (test xkpw=7360) [place] [address] PLATELET AGGREGATION: FUNCTION [id number] 20:37:00 Test Item Value Reference Range Comments WEAK ADP RESULT(BEAKER) (test 48 % 60-91 izdd=2183) PLATELET FUNCTION SCREEN 40-49% indicates moderate INTERP (BEAKER) (test platelet dysfunction sutf=2779) [id number] Buzz Urbano M.D. (electonic (BEAKER) (test evmm=9191) signature) PLATELET COUNT AGG (BEAKER) 187 K/CU MM 150-450 (test evny=3121) POCT-GLUCOSE [id number] 17:28:00 Test Item Value Reference Range Comments POC-GLUCOSE METER (BEAKER) 93 mg/dL 70-110 TESTED AT [address] (test jzkt=3563) [place] [address] POCT-GLUCOSE [id number] 12:12:00 Test Item Value Reference Range Comments POC-GLUCOSE METER (BEAKER) 108 mg/dL 70-110 TESTED AT [facility] [address] [facility] (test rpgu=0877) [facility] [address] [id number] 08:17:00 Test Item Value Reference Range Comments PARTIAL THROMBOPLASTIN TIME (BEAKER) (test 47.0 seconds 22.5-36.0 sdmq=113) While on heparin. aPTT target range 60 to 80 seconds Notify MD if aPTT is out of range.POCT-GLUCOSE [id number] 07:47:00 Test Item Value Reference Range Comments POC-GLUCOSE METER (BEAKER) 98 mg/dL 70-110 TESTED AT [facility] [address] [facility] (test yclf=2387) [facility] [address] [id number] 02:53:00 Test Item Value Reference Range Comments PARTIAL THROMBOPLASTIN TIME (BEAKER) (test 71.4 seconds 22.5-36.0 nzut=606) While on heparin. aPTT target range 60 to 80 seconds Notify MD if aPTT is out of range.PROTHROMBIN [id number] 02:51:00 Test Item Value Reference Range Comments PROTIME (BEAKER) (test wahs=207) 13.5 seconds 11.7-14.7 INR (BEAKER) (test xeuw=834) 1.0 <=5.9 RECOMMENDED COUMADIN/WARFARIN INR THERAPY RANGESSTANDARD DOSE: 2.0 - 3.0 Includes: PROPHYLAXIS forvenous thrombosis, systemic embolization; TREATMENT for venous thrombosis and/or pulmonary embolus.HIGH RISK: Target INR is 2.5-3.5 for patients with mechanical heart valves.While on heparin. aPTT target range 60 to 80 seconds Notify MD if aPTT is out of range.BASIC METABOLIC [id number] 02:48:00 Test Item Value Reference Range Comments SODIUM (BEAKER) (test 133 meq/L 136-145 ymmk=230) POTASSIUM (BEAKER) (test 3.7 meq/L 3.5-5.1 nciz=938) CHLORIDE (BEAKER) (test 102 meq/L 98-107 fwua=832) CO2 (BEAKER) (test 24 meq/L 22-29 kwrt=374) BLOOD UREA NITROGEN 19 mg/dL 7-21 (BEAKER) (test xyvq=990) CREATININE (BEAKER) (test 1.62 mg/dL 0.57-1.25 waal=851) GLUCOSE RANDOM (BEAKER) 106 mg/dL 70-105 (test xzth=684) CALCIUM (BEAKER) (test 7.9 mg/dL 8.4-10.2 swzi=823) EGFR (BEAKER) (test 43 mL/min/1.73 sq m ESTIMATED GFR IS NOT voho=6504) ACCURATE CREATININE CLEARANCE IN PREDICTING GLOMERULAR FILTRATION RATE. ESTIMATED GFR IS NOT APPLICABLE FOR DIALYSIS PATIENTS. [id number] 02:42:00 Test Item Value Reference Range Comments MAGNESIUM (BEAKER) (test iezi=144) 2.1 mg/dL 1.6-2.6 CBC (HEMOGRAM ONLY)2018-01-25 02:21:00 Test Item Value Reference Range Comments WHITE BLOOD CELL COUNT (BEAKER) (test yoxj=449) 10.8 K/ L 3.5-10.5 RED BLOOD CELL COUNT (BEAKER) (test iqrd=354) 3.34 M/ L 4.63-6.08 HEMOGLOBIN (BEAKER) (test ozns=032) 10.0 GM/DL 13.7-17.5 HEMATOCRIT (BEAKER) (test uptg=818) 31.1 % 40.1-51.0 MEAN CORPUSCULAR VOLUME (BEAKER) (test lwqn=674) 93.1 fL 79.0-92.2 MEAN CORPUSCULAR HEMOGLOBIN (BEAKER) (test 29.9 pg 25.7-32.2 soqs=538) MEAN CORPUSCULAR HEMOGLOBIN CONC (BEAKER) (test 32.2 GM/DL 32.3-36.5 jwpz=948) RED CELL DISTRIBUTION WIDTH (BEAKER) (test 14.0 % 11.6-14.4 wezw=534) PLATELET COUNT (BEAKER) (test ztow=243) 186 K/CU MM 150-450 MEAN PLATELET VOLUME (BEAKER) (test qeiu=712) 9.4 fL 9.4-12.4 NUCLEATED RED BLOOD CELLS (BEAKER) (test 0 /100 WBC 0-0 njtl=562) POCT-GLUCOSE [id number] 21:10:00 Test Item Value Reference Range Comments POC-GLUCOSE METER (BEAKER) 124 mg/dL 70-110 TESTED AT [facility] [address] (test ynuv=4558) [facility] [address] [id number] 20:38:00 Test Item Value Reference Range Comments PARTIAL THROMBOPLASTIN TIME (BEAKER) (test 48.6 seconds 22.5-36.0 xyse=842) PLATELET AGGREGATION: FUNCTION [id number] 18:24:00 Test Item Value Reference Range Comments WEAK ADP RESULT(BEAKER) (test 33 % 60-91 xbql=3274) PLATELET FUNCTION SCREEN 0-39% indicates marked platelet INTERP (BEAKER) (test dysfunction aicd=6984) [id number] Buzz Urbano M.D. (electonic (BEAKER) (test cqlv=0719) signature) PLATELET COUNT AGG (BEAKER) 242 K/CU MM 150-450 (test kimt=3321) PLATELET AGGREGATION: FUNCTION [id number] 18:22:00 Test Item Value Reference Range Comments WEAK ADP RESULT(BEAKER) (test 25 % 60-91 ogsr=4542) PLATELET FUNCTION SCREEN 0-39% indicates marked platelet INTERP (BEAKER) (test dysfunction fxcg=8554) [id number] Buzz Urbano M.D. (electonic (BEAKER) (test qmvm=3202) signature) PLATELET COUNT AGG (BEAKER) 251 K/CU MM 150-450 (test cgkd=5695) [id number] 16:16:00 Test Item Value Reference Range Comments PARTIAL THROMBOPLASTIN TIME (BEAKER) (test 81.3 seconds 22.5-36.0 bxye=588) [id number] 15:37:00 Test Item Value Reference Range Comments PARTIAL THROMBOPLASTIN TIME (BEAKER) (test 38.5 seconds 22.5-36.0 oadx=600) While on heparin. aPTT target range 50 to 80 seconds Notify MD if aPTT is out of range.HEMOGLOBIN [id number] 12:50:00 Test Item Value Reference Range Comments HEMOGLOBIN A1C (BEAKER) (test clja=535) 5.5 % 4.3-6.1 POCT-GLUCOSE [id number] 11:33:00 Test Item Value Reference Range Comments POC-GLUCOSE METER (BEAKER) 100 mg/dL 70-110 TESTED AT [address] (test xpzc=4473) [facility] [address] [id number] 08:35:00 Test Item Value Reference Range Comments PARTIAL THROMBOPLASTIN TIME (BEAKER) (test 44.9 seconds 22.5-36.0 vbiy=248) [id number] 04:15:00 Test Item Value Reference Range Comments MAGNESIUM (BEAKER) (test ydkv=314) 1.9 mg/dL 1.6-2.6 BASIC METABOLIC [id number] 04:15:00 Test Item Value Reference Range Comments SODIUM (BEAKER) (test 136 meq/L 136-145 yvuw=583) POTASSIUM (BEAKER) (test 4.4 meq/L 3.5-5.1 dium=806) CHLORIDE (BEAKER) (test 107 meq/L 98-107 ehdp=601) CO2 (BEAKER) (test 22 meq/L 22-29 bbum=531) BLOOD UREA NITROGEN 16 mg/dL 7-21 (BEAKER) (test jizj=376) CREATININE (BEAKER) (test 1.54 mg/dL 0.57-1.25 ruul=192) GLUCOSE RANDOM (BEAKER) 129 mg/dL 70-105 (test roag=850) CALCIUM (BEAKER) (test 8.1 mg/dL 8.4-10.2 bcpi=101) EGFR (BEAKER) (test 46 mL/min/1.73 sq m ESTIMATED GFR IS NOT mltj=0729) ACCURATE CREATININE CLEARANCE IN PREDICTING GLOMERULAR FILTRATION RATE. ESTIMATED GFR IS NOT APPLICABLE FOR DIALYSIS PATIENTS. [id number] 04:12:00 Test Item Value Reference Range Comments PARTIAL THROMBOPLASTIN TIME (BEAKER) (test 65.1 seconds 22.5-36.0 bnci=105) POCT-GLUCOSE [id number] 04:11:00 Test Item Value Reference Range Comments POC-GLUCOSE METER (BEAKER) 128 mg/dL 70-110 TESTED AT [place] [id number] [facility] (test nikm=5570) [facility] [address] PROTHROMBIN [id number] 04:11:00 Test Item Value Reference Range Comments PROTIME (BEAKER) (test ecof=439) 14.8 seconds 11.7-14.7 INR (BEAKER) (test iwbk=806) 1.2 <=5.9 RECOMMENDED COUMADIN/WARFARIN INR THERAPY RANGESSTANDARD DOSE: 2.0 - 3.0 Includes: PROPHYLAXIS forvenous thrombosis, systemic embolization; TREATMENT for venous thrombosis and/or pulmonary embolus.HIGH RISK: Target INR is 2.5-3.5 for patients with mechanical heart valves.CBC (HEMOGRAM ONLY)2018-01-24 03:59:00 Test Item Value Reference Range Comments WHITE BLOOD CELL COUNT (BEAKER) (test cvjw=227) 15.9 K/ L 3.5-10.5 RED BLOOD CELL COUNT (BEAKER) (test dwib=607) 3.85 M/ L 4.63-6.08 HEMOGLOBIN (BEAKER) (test ksoe=373) 11.7 GM/DL 13.7-17.5 HEMATOCRIT (BEAKER) (test hodp=601) 35.7 % 40.1-51.0 MEAN CORPUSCULAR VOLUME (BEAKER) (test igxq=157) 92.7 fL 79.0-92.2 MEAN CORPUSCULAR HEMOGLOBIN (BEAKER) (test 30.4 pg 25.7-32.2 myvr=773) MEAN CORPUSCULAR HEMOGLOBIN CONC (BEAKER) (test 32.8 GM/DL 32.3-36.5 ftvs=675) RED CELL DISTRIBUTION WIDTH (BEAKER) (test 13.7 % 11.6-14.4 dinc=129) PLATELET COUNT (BEAKER) (test fpgq=457) 250 K/CU MM 150-450 MEAN PLATELET VOLUME (BEAKER) (test tpdz=448) 9.8 fL 9.4-12.4 NUCLEATED RED BLOOD CELLS (BEAKER) (test 0 /100 WBC 0-0 kvyz=809) RAD, CHEST, 1 VIEW, NON [id number] 00:09:00Reason for exam:->central line placement in the [...] MDReport Verified Date/Time: 01/24/2018 00:09:20 Reading Location: [facility] [id number] Consult Reading Room [id number] 23:29:00 Test Item Value Reference Range Comments PARTIAL THROMBOPLASTIN TIME (BEAKER) (test > seconds 22.5-36.0 hfno=871) POCT-GLUCOSE [id number] 23:00:00 Test Item Value Reference Range Comments POC-GLUCOSE METER (BEAKER) 142 mg/dL 70-110 TESTED AT [facility] [address] [facility] (test eldx=0697) [facility] [address] [id number] 22:22:00 Test Item Value Reference Range Comments MAGNESIUM (BEAKER) (test thbr=365) 1.9 mg/dL 1.6-2.6 CALCIUM, [id number] 22:10:00 Test Item Value Reference Range Comments CALCIUM IONIZED (BEAKER) (test ztjo=536) 1.04 mmol/L 1.12-1.27 PH, BLOOD (BEAKER) (test mtgo=5388) 7.41 HEPATITIS B SURFACE [id number] 19:32:00 Test Item Value Reference Range Comments HEPATITIS B SURFACE ANTIGEN (2) (BEAKER) (test Nonreactive Nonreactive qrpw=7816) HIV-1 ANTIGEN WITH HIV-1/2 [id number] 19:32:00 Test Item Value Reference Range Comments HIV-1 ANTIGEN WITH HIV 1\\T\\2 ANTIBODY (2) Nonreactive Nonreactive (BEAKER) (test djzf=3651) [id number] 19:23:00 Test Item Value Reference Range Comments PARTIAL THROMBOPLASTIN TIME (BEAKER) (test > seconds 22.5-36.0 iuxz=764) BASIC METABOLIC [id number] 19:01:00 Test Item Value Reference Range Comments SODIUM (BEAKER) (test 136 meq/L 136-145 atlc=228) POTASSIUM (BEAKER) (test 4.6 meq/L 3.5-5.1 pdkp=763) CHLORIDE (BEAKER) (test 109 meq/L 98-107 xjlb=324) CO2 (BEAKER) (test 19 meq/L 22-29 dzki=002) BLOOD UREA NITROGEN 14 mg/dL 7-21 (BEAKER) (test zzkq=457) CREATININE (BEAKER) (test 1.75 mg/dL 0.57-1.25 qdzd=698) GLUCOSE RANDOM (BEAKER) 154 mg/dL 70-105 (test emdh=150) CALCIUM (BEAKER) (test 8.1 mg/dL 8.4-10.2 oujj=290) EGFR (BEAKER) (test 40 mL/min/1.73 sq m ESTIMATED GFR IS NOT xltb=3031) ACCURATE CREATININE CLEARANCE IN PREDICTING GLOMERULAR FILTRATION RATE. ESTIMATED GFR IS NOT APPLICABLE FOR DIALYSIS PATIENTS. CBC (HEMOGRAM ONLY)2018-01-23 18:45:00 Test Item Value Reference Range Comments WHITE BLOOD CELL COUNT (BEAKER) (test ijly=820) 15.9 K/ L 3.5-10.5 RED BLOOD CELL COUNT (BEAKER) (test xxsl=442) 4.00 M/ L 4.63-6.08 HEMOGLOBIN (BEAKER) (test bveg=255) 11.9 GM/DL 13.7-17.5 HEMATOCRIT (BEAKER) (test nqym=582) 38.0 % 40.1-51.0 MEAN CORPUSCULAR VOLUME (BEAKER) (test cyuq=052) 95.0 fL 79.0-92.2 MEAN CORPUSCULAR HEMOGLOBIN (BEAKER) (test 29.8 pg 25.7-32.2 wdpa=034) MEAN CORPUSCULAR HEMOGLOBIN CONC (BEAKER) (test 31.3 GM/DL 32.3-36.5 dlrr=578) RED CELL DISTRIBUTION WIDTH (BEAKER) (test 13.7 % 11.6-14.4 xdxe=046) PLATELET COUNT (BEAKER) (test frmk=184) 253 K/CU MM 150-450 MEAN PLATELET VOLUME (BEAKER) (test xkrb=121) 9.7 fL 9.4-12.4 NUCLEATED RED BLOOD CELLS (BEAKER) (test 0 /100 WBC 0-0 qzgb=766) BLOOD GAS, [id number] 18:42:00 Test Item Value Reference Range Comments PH ARTERIAL (BEAKER) (test wffd=862) 7.34 7.35-7.45 PCO2 ARTERIAL (BEAKER) (test mvnj=617) 38 mmHg 35-45 PO2 ARTERIAL (BEAKER) (test cqrx=430) 92 mmHg 80-90 O2 SATURATION ARTERIAL (BEAKER) (test xgwj=499) 97.4 % 96.0-97.0 HCO3 ARTERIAL (BEAKER) (test hqmq=503) 21 mmol/L 21-29 BASE EXCESS ARTERIAL (BEAKER) (test gvxy=902) -5.3 mmol/L -2.0-3.0 PATIENT TEMPERATURE (BEAKER) (test aeus=5490) 34.7 C FIO2 (BEAKER) (test vaev=2295) 28.0 % GLUCOSE-STAT [id number] 18:42:00 Test Item Value Reference Range Comments GLUCOSE RANDOM (BEAKER) (test aiio=076) 149 mg/dL 70-110 POTASSIUM-STAT [id number] 18:42:00 Test Item Value Reference Range Comments POTASSIUM (BEAKER) (test jofk=161) 4.5 meq/L 3.6-5.5 [id number] 17:53:00 Test Item Value Reference Range Comments ACTIVATED CLOTTING TIME 307 sec TESTED AT [facility] [address] (BEAKER) (test oipu=831) [place] [address] [id number] 17:53:00 Test Item Value Reference Range Comments ACTIVATED CLOTTING TIME 312 sec TESTED AT [place] [id number] (BEAKER) (test lmqm=687) [place] [address] [id number] 17:53:00 Test Item Value Reference Range Comments ACTIVATED CLOTTING TIME 263 sec TESTED AT [place] [id number] (BEAKER) (test fmho=106) [place] [address] [id number] 17:53:00 Test Item Value Reference Range Comments ACTIVATED CLOTTING TIME 235 sec TESTED AT [place] [id number] (BEAKER) (test yeqm=704) [place] [address] BASIC METABOLIC [id number] 16:20:00 Test Item Value Reference Range Comments SODIUM (BEAKER) (test 136 meq/L 136-145 hvbu=789) POTASSIUM (BEAKER) (test 3.9 meq/L 3.5-5.1 ngqg=877) CHLORIDE (BEAKER) (test 107 meq/L 98-107 utiz=221) CO2 (BEAKER) (test 22 meq/L 22-29 tvvv=434) BLOOD UREA NITROGEN 15 mg/dL 7-21 (BEAKER) (test obso=445) CREATININE (BEAKER) (test 1.63 mg/dL 0.57-1.25 bbfi=025) GLUCOSE RANDOM (BEAKER) 103 mg/dL 70-105 (test dhyr=521) CALCIUM (BEAKER) (test 8.4 mg/dL 8.4-10.2 mrgt=674) EGFR (BEAKER) (test 43 mL/min/1.73 sq m ESTIMATED GFR IS NOT vhvt=0307) ACCURATE CREATININE CLEARANCE IN PREDICTING GLOMERULAR FILTRATION RATE. ESTIMATED GFR IS NOT APPLICABLE FOR DIALYSIS PATIENTS. [id number] 15:46:00 Test Item Value Reference Range Comments PARTIAL THROMBOPLASTIN TIME (BEAKER) (test 24.7 seconds 22.5-36.0 sket=597) PROTHROMBIN [id number] 15:45:00 Test Item Value Reference Range Comments PROTIME (BEAKER) (test lymk=380) 14.0 seconds 11.7-14.7 INR (BEAKER) (test klzk=137) 1.1 <=5.9 RECOMMENDED COUMADIN/WARFARIN INR THERAPY RANGESSTANDARD DOSE: 2.0 - 3.0 Includes: PROPHYLAXIS forvenous thrombosis, systemic embolization; TREATMENT for venous thrombosis and/or pulmonary embolus.HIGH RISK: Target INR is 2.5-3.5 for patients with mechanical heart valves.CBC W/PLT COUNT & AUTO [id number] 15:41:00 Test Item Value Reference Range Comments WHITE BLOOD CELL COUNT (BEAKER) (test bimb=661) 14.3 K/ L 3.5-10.5 RED BLOOD CELL COUNT (BEAKER) (test ecoe=032) 4.32 M/ L 4.63-6.08 HEMOGLOBIN (BEAKER) (test rikn=317) 13.0 GM/DL 13.7-17.5 HEMATOCRIT (BEAKER) (test mqyy=900) 40.7 % 40.1-51.0 MEAN CORPUSCULAR VOLUME (BEAKER) (test hjhj=453) 94.2 fL 79.0-92.2 MEAN CORPUSCULAR HEMOGLOBIN (BEAKER) (test 30.1 pg 25.7-32.2 rnoe=114) MEAN CORPUSCULAR HEMOGLOBIN CONC (BEAKER) (test 31.9 GM/DL 32.3-36.5 vjav=535) RED CELL DISTRIBUTION WIDTH (BEAKER) (test 13.6 % 11.6-14.4 bglo=458) PLATELET COUNT (BEAKER) (test ngzy=446) 240 K/CU MM 150-450 MEAN PLATELET VOLUME (BEAKER) (test gprc=150) 9.6 fL 9.4-12.4 NUCLEATED RED BLOOD CELLS (BEAKER) (test 0 /100 WBC 0-0 mnqq=701) NEUTROPHILS RELATIVE PERCENT (BEAKER) (test 83 % ntiy=620) LYMPHOCYTES RELATIVE PERCENT (BEAKER) (test 11 % hyxk=611) MONOCYTES RELATIVE PERCENT (BEAKER) (test 5 % ugza=209) EOSINOPHILS RELATIVE PERCENT (BEAKER) (test 0 % beag=989) BASOPHILS RELATIVE PERCENT (BEAKER) (test 0 % cbqf=387) NEUTROPHILS ABSOLUTE COUNT (BEAKER) (test 11.79 K/ L 1.78-5.38 rafh=082) LYMPHOCYTES ABSOLUTE COUNT (BEAKER) (test 1.57 K/ L 1.32-3.57 ozrl=137) MONOCYTES ABSOLUTE COUNT (BEAKER) (test 0.75 K/ L 0.30-0.82 xwty=864) EOSINOPHILS ABSOLUTE COUNT (BEAKER) (test 0.01 K/ L 0.04-0.54 mfoc=924) BASOPHILS ABSOLUTE COUNT (BEAKER) (test 0.05 K/ L 0.01-0.08 mibq=088) IMMATURE GRANULOCYTES-RELATIVE PERCENT (BEAKER) 1 % 0-1 (test apie=8729) TISSUE [id number] 14:59:00Surgical Pathology Report Case: [id number] Authorizing Provider: Humza Oconnor MD Collected: 11/17/2017 0937 Ordering Location: [facility] CV Recovery Room 2 Received: 11/17/2017 1003 Pathologist: Vince Tobias MD Specimen: Plaque, right femoral plaque ARTERY, RIGHT FEMORAL, THROMBECTOMY :FIBRIN THROMBUSFIBROVASCULAR AND FIBROADIPOSE TISSUE Signing Pathologist Direct Phone Line: [phone] signed by Vince Tobias MD on at 2:59 [id number] femoral plaqueReceived in saline labeled "plaque", description "right femoral plaque" arefour irregular, caban-white to yellow-rose, rubbery fragments of plaque-like material measuring 3.0 x 2.5 x 0.3 cm in aggregate. sectioning reveals no discrete masses. Tube Blower sections are submitted in cassette A1. DB/ew [facility]formedBA[facility] METABOLIC [id number] 06: 17:00 Test Item Value Reference Range Comments SODIUM (BEAKER) (test 137 meq/L 136-145 qwce=839) POTASSIUM (BEAKER) (test 4.0 meq/L 3.5-5.1 nydv=626) CHLORIDE (BEAKER) (test 108 meq/L 98-107 ldax=333) CO2 (BEAKER) (test 22 meq/L 22-29 rjbi=421) BLOOD UREA NITROGEN 19 mg/dL 7-21 (BEAKER) (test pczh=536) CREATININE (BEAKER) (test 1.54 mg/dL 0.57-1.25 bkvk=769) GLUCOSE RANDOM (BEAKER) 99 mg/dL 70-105 (test rtxp=084) CALCIUM (BEAKER) (test 8.7 mg/dL 8.4-10.2 cruv=317) EGFR (BEAKER) (test 46 mL/min/1.73 sq m ESTIMATED GFR IS NOT ujiy=6779) ACCURATE CREATININE CLEARANCE IN PREDICTING GLOMERULAR FILTRATION RATE. ESTIMATED GFR IS NOT APPLICABLE FOR DIALYSIS PATIENTS. CBC (HEMOGRAM ONLY)2017-11-21 05:21:00 Test Item Value Reference Range Comments WHITE BLOOD CELL COUNT (BEAKER) (test pamy=694) 8.6 K/ L 3.5-10.5 RED BLOOD CELL COUNT (BEAKER) (test opor=643) 4.33 M/ L 4.63-6.08 HEMOGLOBIN (BEAKER) (test cder=904) 14.1 GM/DL 13.7-17.5 HEMATOCRIT (BEAKER) (test famk=142) 43.3 % 40.1-51.0 MEAN CORPUSCULAR VOLUME (BEAKER) (test qvpr=410) 100.0 fL 79.0-92.2 MEAN CORPUSCULAR HEMOGLOBIN (BEAKER) (test 32.6 pg 25.7-32.2 imxh=483) MEAN CORPUSCULAR HEMOGLOBIN CONC (BEAKER) (test 32.6 GM/DL 32.3-36.5 nyxe=960) RED CELL DISTRIBUTION WIDTH (BEAKER) (test 15.2 % 11.6-14.4 qjre=598) PLATELET COUNT (BEAKER) (test nqwj=688) 173 K/CU MM 150-450 MEAN PLATELET VOLUME (BEAKER) (test nlrb=824) 9.7 fL 9.4-12.4 NUCLEATED RED BLOOD CELLS (BEAKER) (test 0 /100 WBC 0-0 tqmh=211) BASIC METABOLIC [id number] 10:29:00 Test Item Value Reference Range Comments SODIUM (BEAKER) (test 138 meq/L 136-145 lqir=082) POTASSIUM (BEAKER) (test 4.0 meq/L 3.5-5.1 vrfh=380) CHLORIDE (BEAKER) (test 109 meq/L 98-107 wbif=801) CO2 (BEAKER) (test 21 meq/L 22-29 icbu=786) BLOOD UREA NITROGEN 15 mg/dL 7-21 (BEAKER) (test ruyy=147) CREATININE (BEAKER) (test 1.60 mg/dL 0.57-1.25 cxpm=644) GLUCOSE RANDOM (BEAKER) 101 mg/dL 70-105 (test zcsb=721) CALCIUM (BEAKER) (test 8.7 mg/dL 8.4-10.2 iycu=564) EGFR (BEAKER) (test 44 mL/min/1.73 sq m ESTIMATED GFR IS NOT cbaj=1462) ACCURATE CREATININE CLEARANCE IN PREDICTING GLOMERULAR FILTRATION RATE. ESTIMATED GFR IS NOT APPLICABLE FOR DIALYSIS PATIENTS. LIPID [id number] 04:26:00 Test Item Value Reference Range Comments TRIGLYCERIDES (BEAKER) (test rmtf=978) 119 mg/dL CHOLESTEROL (BEAKER) (test trfw=221) 123 mg/dL HDL CHOLESTEROL (BEAKER) (test eifo=325) 26 mg/dL LDL CHOLESTEROL CALCULATED (BEAKER) (test 73 mg/dL amvx=635) Triglyceride Reference Range: Low Risk <150 Borderline 150- 199 High Risk 200-499 Very High Risk >=500Cholesterol Reference Range: Low Risk <200 Borderline 200-239 High Risk > 240HDL Cholesterol Reference Range: Low Risk >=60 High Risk <40LDL Cholesterol Reference Range: Optimal <100 Near Optimal 100-129 Borderline 130-159 High 160-189 Very High >=[id number] 05:39:00 Test Item Value Reference Range Comments MAGNESIUM (BEAKER) (test djuk=002) 2.0 mg/dL 1.6-2.6 BASIC METABOLIC [id number] 05:39:00 Test Item Value Reference Range Comments SODIUM (BEAKER) (test 137 meq/L 136-145 hjig=396) POTASSIUM (BEAKER) (test 4.0 meq/L 3.5-5.1 zjpz=063) CHLORIDE (BEAKER) (test 109 meq/L 98-107 flmr=527) CO2 (BEAKER) (test 22 meq/L 22-29 ncqs=701) BLOOD UREA NITROGEN 16 mg/dL 7-21 (BEAKER) (test eufe=012) CREATININE (BEAKER) (test 1.76 mg/dL 0.57-1.25 oxdk=618) GLUCOSE RANDOM (BEAKER) 101 mg/dL 70-105 (test vldt=059) CALCIUM (BEAKER) (test 8.5 mg/dL 8.4-10.2 clpc=371) EGFR (BEAKER) (test 39 mL/min/1.73 sq m ESTIMATED GFR IS NOT jrho=4128) ACCURATE CREATININE CLEARANCE IN PREDICTING GLOMERULAR FILTRATION RATE. ESTIMATED GFR IS NOT APPLICABLE FOR DIALYSIS PATIENTS. CBC W/PLT COUNT & AUTO [id number] 05:04:00 Test Item Value Reference Range Comments WHITE BLOOD CELL COUNT (BEAKER) (test qeaf=895) 8.2 K/ L 3.5-10.5 RED BLOOD CELL COUNT (BEAKER) (test tyyb=508) 4.08 M/ L 4.63-6.08 HEMOGLOBIN (BEAKER) (test bfzn=326) 13.1 GM/DL 13.7-17.5 HEMATOCRIT (BEAKER) (test dxbj=825) 40.2 % 40.1-51.0 MEAN CORPUSCULAR VOLUME (BEAKER) (test hncy=354) 98.5 fL 79.0-92.2 MEAN CORPUSCULAR HEMOGLOBIN (BEAKER) (test 32.1 pg 25.7-32.2 ukus=907) MEAN CORPUSCULAR HEMOGLOBIN CONC (BEAKER) (test 32.6 GM/DL 32.3-36.5 xgor=879) RED CELL DISTRIBUTION WIDTH (BEAKER) (test 15.0 % 11.6-14.4 duli=950) PLATELET COUNT (BEAKER) (test ocvh=799) 153 K/CU MM 150-450 MEAN PLATELET VOLUME (BEAKER) (test benb=240) 9.7 fL 9.4-12.4 NUCLEATED RED BLOOD CELLS (BEAKER) (test 0 /100 WBC 0-0 zkzb=893) NEUTROPHILS RELATIVE PERCENT (BEAKER) (test 68 % ajyh=328) LYMPHOCYTES RELATIVE PERCENT (BEAKER) (test 19 % jbjd=779) MONOCYTES RELATIVE PERCENT (BEAKER) (test 9 % kjxq=201) EOSINOPHILS RELATIVE PERCENT (BEAKER) (test 4 % bgdj=475) BASOPHILS RELATIVE PERCENT (BEAKER) (test 0 % nwsf=081) NEUTROPHILS ABSOLUTE COUNT (BEAKER) (test 5.57 K/ L 1.78-5.38 obqk=453) LYMPHOCYTES ABSOLUTE COUNT (BEAKER) (test 1.60 K/ L 1.32-3.57 ddmw=169) MONOCYTES ABSOLUTE COUNT (BEAKER) (test 0.70 K/ L 0.30-0.82 qgyr=949) EOSINOPHILS ABSOLUTE COUNT (BEAKER) (test 0.30 K/ L 0.04-0.54 ocxc=510) BASOPHILS ABSOLUTE COUNT (BEAKER) (test 0.03 K/ L 0.01-0.08 pkrj=573) IMMATURE GRANULOCYTES-RELATIVE PERCENT (BEAKER) 1 % 0-1 (test kqyd=3426) [id number] 07:37:00 Test Item Value Reference Range Comments MAGNESIUM (BEAKER) (test dhtc=496) 2.0 mg/dL 1.6-2.6 BASIC METABOLIC [id number] 07:37:00 Test Item Value Reference Range Comments SODIUM (BEAKER) (test 136 meq/L 136-145 fjqi=574) POTASSIUM (BEAKER) (test 4.4 meq/L 3.5-5.1 omri=024) CHLORIDE (BEAKER) (test 106 meq/L 98-107 aprp=885) CO2 (BEAKER) (test 22 meq/L 22-29 pmkd=309) BLOOD UREA NITROGEN 15 mg/dL 7-21 (BEAKER) (test flrb=116) CREATININE (BEAKER) (test 1.59 mg/dL 0.57-1.25 aiqj=093) GLUCOSE RANDOM (BEAKER) 99 mg/dL 70-105 (test csvh=359) CALCIUM (BEAKER) (test 8.7 mg/dL 8.4-10.2 dbzq=536) EGFR (BEAKER) (test 44 mL/min/1.73 sq m ESTIMATED GFR IS NOT byps=8549) ACCURATE CREATININE CLEARANCE IN PREDICTING GLOMERULAR FILTRATION RATE. ESTIMATED GFR IS NOT APPLICABLE FOR DIALYSIS PATIENTS. BASIC METABOLIC [id number] 11:14:00 Test Item Value Reference Range Comments SODIUM (BEAKER) (test 139 meq/L 136-145 duml=246) POTASSIUM (BEAKER) (test 4.5 meq/L 3.5-5.1 xill=288) CHLORIDE (BEAKER) (test 111 meq/L 98-107 aduo=810) CO2 (BEAKER) (test 21 meq/L 22-29 ndyg=850) BLOOD UREA NITROGEN 12 mg/dL 7-21 (BEAKER) (test fews=862) CREATININE (BEAKER) (test 1.58 mg/dL 0.57-1.25 ycjx=758) GLUCOSE RANDOM (BEAKER) 103 mg/dL 70-105 (test dole=127) CALCIUM (BEAKER) (test 9.2 mg/dL 8.4-10.2 rzxq=513) EGFR (BEAKER) (test 45 mL/min/1.73 sq m ESTIMATED GFR IS NOT plxa=1069) ACCURATE CREATININE CLEARANCE IN PREDICTING GLOMERULAR FILTRATION RATE. ESTIMATED GFR IS NOT APPLICABLE FOR DIALYSIS PATIENTS. CBC W/PLT COUNT & AUTO [id number] 10:50:00 Test Item Value Reference Range Comments WHITE BLOOD CELL COUNT (BEAKER) (test opzt=288) 8.7 K/ L 3.5-10.5 RED BLOOD CELL COUNT (BEAKER) (test hqve=390) 4.12 M/ L 4.63-6.08 HEMOGLOBIN (BEAKER) (test nuvs=242) 13.4 GM/DL 13.7-17.5 HEMATOCRIT (BEAKER) (test zdxk=814) 41.5 % 40.1-51.0 MEAN CORPUSCULAR VOLUME (BEAKER) (test dsya=162) 100.7 fL 79.0-92.2 MEAN CORPUSCULAR HEMOGLOBIN (BEAKER) (test 32.5 pg 25.7-32.2 wuld=609) MEAN CORPUSCULAR HEMOGLOBIN CONC (BEAKER) (test 32.3 GM/DL 32.3-36.5 acfv=952) RED CELL DISTRIBUTION WIDTH (BEAKER) (test 15.1 % 11.6-14.4 qtqs=337) PLATELET COUNT (BEAKER) (test msic=457) 231 K/CU MM 150-450 MEAN PLATELET VOLUME (BEAKER) (test lilz=144) 8.9 fL 9.4-12.4 NUCLEATED RED BLOOD CELLS (BEAKER) (test 0 /100 WBC 0-0 uqhr=445) NEUTROPHILS RELATIVE PERCENT (BEAKER) (test 70 % owzx=808) LYMPHOCYTES RELATIVE PERCENT (BEAKER) (test 21 % ffqe=868) MONOCYTES RELATIVE PERCENT (BEAKER) (test 6 % jjil=022) EOSINOPHILS RELATIVE PERCENT (BEAKER) (test 3 % uknd=525) BASOPHILS RELATIVE PERCENT (BEAKER) (test 0 % oqty=814) NEUTROPHILS ABSOLUTE COUNT (BEAKER) (test 6.04 K/ L 1.78-5.38 gphm=116) LYMPHOCYTES ABSOLUTE COUNT (BEAKER) (test 1.80 K/ L 1.32-3.57 dxop=260) MONOCYTES ABSOLUTE COUNT (BEAKER) (test 0.51 K/ L 0.30-0.82 pbdw=876) EOSINOPHILS ABSOLUTE COUNT (BEAKER) (test 0.24 K/ L 0.04-0.54 oysq=325) BASOPHILS ABSOLUTE COUNT (BEAKER) (test 0.02 K/ L 0.01-0.08 zyhl=599) IMMATURE GRANULOCYTES-RELATIVE PERCENT (BEAKER) 1 % 0-1 (test dgnm=0964) GLUCOSE-STAT [id number] 10:35:00 Test Item Value Reference Range Comments GLUCOSE RANDOM (BEAKER) (test pxrn=779) 99 mg/dL 70-110 Only if arterial line in place and/or patient on ventilatorSODIUM NA-STAT [id number] 10:35:00 Test Item Value Reference Range Comments SODIUM (BEAKER) (test eywv=686) 137 meq/L 135-148 Only if arterial line in place and/or patient on ventilatorPOTASSIUM-STAT [id number] 10:35:00 Test Item Value Reference Range Comments POTASSIUM (BEAKER) (test wgfo=803) 4.4 meq/L 3.6-5.5 Only if arterial line in place and/or patient on ventilatorHGB/HCT (H&H) - STAT [id number] 10:35:00 Test Item Value Reference Range Comments HEMOGLOBIN (BEAKER) (test fanl=323) 14.2 g/dL 13.0-16.8 HEMATOCRIT (BEAKER) (test lacu=776) 42.0 % 40.0-50.0 Only if arterial line in place and/or patient on ventilatorBLOOD GAS, [id number] 10:35:00 Test Item Value Reference Range Comments PH ARTERIAL (BEAKER) (test cmfv=009) 7.37 7.35-7.45 PCO2 ARTERIAL (BEAKER) (test rfba=838) 37 mmHg 35-45 PO2 ARTERIAL (BEAKER) (test kfaq=590) 132 mmHg 80-90 O2 SATURATION ARTERIAL (BEAKER) (test bjtn=695) 98.6 % 96.0-97.0 HCO3 ARTERIAL (BEAKER) (test ouou=456) 21 mmol/L 21-29 BASE EXCESS ARTERIAL (BEAKER) (test qlsq=984) -4.0 mmol/L -2.0-3.0 PATIENT TEMPERATURE (BEAKER) (test tpun=0587) 36.4 C FIO2 (BEAKER) (test rkuk=6146) 48.0 % Only if arterial line in place and/or patient on ventilatorBLOOD GAS, [id number] 09:03:00 Test Item Value Reference Range Comments PH ARTERIAL (BEAKER) (test qhar=538) 7.36 7.35-7.45 PCO2 ARTERIAL (BEAKER) (test vrqm=065) 40 mmHg 35-45 PO2 ARTERIAL (BEAKER) (test twpm=768) 153 mmHg 80-90 O2 SATURATION ARTERIAL (BEAKER) (test txnx=960) 99.0 % 96.0-97.0 HCO3 ARTERIAL (BEAKER) (test mvwq=686) 23 mmol/L 21-29 BASE EXCESS ARTERIAL (BEAKER) (test ljjc=482) -3.1 mmol/L -2.0-3.0 PATIENT TEMPERATURE (BEAKER) (test kmxv=4822) 35.3 C FIO2 (BEAKER) (test tuwk=3743) 60.0 % CALCIUM, [id number] 09:03:00 Test Item Value Reference Range Comments CALCIUM IONIZED (BEAKER) (test bjrb=379) 1.06 mmol/L 1.12-1.27 PH, BLOOD (BEAKER) (test qqon=0542) 7.34 GLUCOSE-STAT [id number] 09:02:00 Test Item Value Reference Range Comments GLUCOSE RANDOM (BEAKER) (test qkmk=856) 106 mg/dL 70-110 SODIUM NA-STAT [id number] 09:02:00 Test Item Value Reference Range Comments SODIUM (BEAKER) (test uuuy=620) 136 meq/L 135-148 POTASSIUM-STAT [id number] 09:02:00 Test Item Value Reference Range Comments POTASSIUM (BEAKER) (test hiya=266) 4.2 meq/L 3.6-5.5 HGB/HCT (H&H) - STAT [id number] 09:02:00 Test Item Value Reference Range Comments HEMOGLOBIN (BEAKER) (test tiaj=507) 13.5 g/dL 13.0-16.8 HEMATOCRIT (BEAKER) (test svvd=757) 40.0 % 40.0-50.0 URINALYSIS W/ [id number] 07:46:00 Test Item Value Reference Range Comments COLOR (BEAKER) (test vcex=518) Light Yellow CLARITY (BEAKER) (test odxu=348) Clear SPECIFIC GRAVITY UA (BEAKER) (test sixv=789) 1.009 1.001-1.035 PH UA (BEAKER) (test zmlk=863) 6.0 5.0-8.0 PROTEIN UA (BEAKER) (test mqaw=220) Negative Negative GLUCOSE UA (BEAKER) (test aaws=717) Negative Negative KETONES UA (BEAKER) (test tcjt=656) Negative Negative BILIRUBIN UA (BEAKER) (test zzjl=040) Negative Negative BLOOD UA (BEAKER) (test jpqy=136) Negative Negative NITRITE UA (BEAKER) (test ngye=525) Negative Negative LEUKOCYTE ESTERASE UA (BEAKER) (test kjrk=210) Negative Negative UROBILINOGEN UA (BEAKER) (test qgke=963) 0.2 mg/dL 0.2-1.0 RBC UA (BEAKER) (test bykf=055) 1 /HPF WBC UA (BEAKER) (test snsd=911) < /HPF SOURCE(BEAKER) (test vswe=6018) Urine, Voided [id number] 04:52:00 Test Item Value Reference Range Comments MAGNESIUM (BEAKER) (test lkzq=362) 2.1 mg/dL 1.6-2.6 COMPREHENSIVE METABOLIC [id number] 04:52:00 Test Item Value Reference Range Comments TOTAL PROTEIN (BEAKER) 6.2 gm/dL 6.0-8.3 (test uppp=866) ALBUMIN (BEAKER) (test 3.6 g/dL 3.5-5.0 nwio=2178) ALKALINE PHOSPHATASE 83 U/L 40-150 (BEAKER) (test bvbg=696) BILIRUBIN TOTAL (BEAKER) 0.4 mg/dL 0.2-1.2 (test opcw=120) SODIUM (BEAKER) (test 137 meq/L 136-145 hvcl=414) POTASSIUM (BEAKER) (test 4.4 meq/L 3.5-5.1 rqtn=568) CHLORIDE (BEAKER) (test 108 meq/L 98-107 lpfc=001) CO2 (BEAKER) (test 22 meq/L 22-29 wtdm=780) BLOOD UREA NITROGEN 14 mg/dL 7-21 (BEAKER) (test babg=544) CREATININE (BEAKER) (test 1.61 mg/dL 0.57-1.25 vvjg=918) GLUCOSE RANDOM (BEAKER) 89 mg/dL 70-105 (test vtan=773) CALCIUM (BEAKER) (test 8.9 mg/dL 8.4-10.2 alcj=698) AST (SGOT) (BEAKER) (test 18 U/L 5-34 sxch=504) ALT (SGPT) (BEAKER) (test 15 U/L 6-55 nrua=853) EGFR (BEAKER) (test 44 mL/min/1.73 sq m ESTIMATED GFR IS NOT qbso=2799) ACCURATE CREATININE CLEARANCE IN PREDICTING GLOMERULAR FILTRATION RATE. ESTIMATED GFR IS NOT APPLICABLE FOR DIALYSIS PATIENTS. [id number] 04:50:00 Test Item Value Reference Range Comments PARTIAL THROMBOPLASTIN TIME (BEAKER) (test 27.8 seconds 22.5-36.0 gpst=691) PROTHROMBIN TIME/[id number] 04:49:00 Test Item Value Reference Range Comments PROTIME (BEAKER) (test khpt=293) 13.0 seconds 11.7-14.7 INR (BEAKER) (test agtc=044) 1.0 <=5.9 RECOMMENDED COUMADIN/WARFARIN INR THERAPY RANGESSTANDARD DOSE: 2.0 - 3.0 Includes: PROPHYLAXIS forvenous thrombosis, systemic embolization; TREATMENT for venous thrombosis and/or pulmonary embolus.HIGH RISK: Target INR is 2.5-3.5 for patients with mechanical heart valves.CBC W/PLT COUNT & AUTO [id number] 04:34:00 Test Item Value Reference Range Comments WHITE BLOOD CELL COUNT (BEAKER) (test dzcu=120) 7.6 K/ L 3.5-10.5 RED BLOOD CELL COUNT (BEAKER) (test aplf=678) 4.47 M/ L 4.63-6.08 HEMOGLOBIN (BEAKER) (test nhxc=966) 14.4 GM/DL 13.7-17.5 HEMATOCRIT (BEAKER) (test txmp=816) 44.2 % 40.1-51.0 MEAN CORPUSCULAR VOLUME (BEAKER) (test pmvv=574) 98.9 fL 79.0-92.2 MEAN CORPUSCULAR HEMOGLOBIN (BEAKER) (test 32.2 pg 25.7-32.2 tonx=466) MEAN CORPUSCULAR HEMOGLOBIN CONC (BEAKER) (test 32.6 GM/DL 32.3-36.5 fuvl=757) RED CELL DISTRIBUTION WIDTH (BEAKER) (test 14.8 % 11.6-14.4 lbul=078) PLATELET COUNT (BEAKER) (test syof=549) 244 K/CU MM 150-450 MEAN PLATELET VOLUME (BEAKER) (test pvik=882) 9.2 fL 9.4-12.4 NUCLEATED RED BLOOD CELLS (BEAKER) (test 0 /100 WBC 0-0 cttp=594) NEUTROPHILS RELATIVE PERCENT (BEAKER) (test 68 % xdxg=622) LYMPHOCYTES RELATIVE PERCENT (BEAKER) (test 20 % siql=626) MONOCYTES RELATIVE PERCENT (BEAKER) (test 7 % tvdh=015) EOSINOPHILS RELATIVE PERCENT (BEAKER) (test 5 % raea=959) BASOPHILS RELATIVE PERCENT (BEAKER) (test 0 % wjyl=464) NEUTROPHILS ABSOLUTE COUNT (BEAKER) (test 5.11 K/ L 1.78-5.38 ngde=982) LYMPHOCYTES ABSOLUTE COUNT (BEAKER) (test 1.54 K/ L 1.32-3.57 usum=047) MONOCYTES ABSOLUTE COUNT (BEAKER) (test 0.51 K/ L 0.30-0.82 lpsk=[id number]) EOSINOPHILS ABSOLUTE COUNT (BEAKER) (test 0.36 K/ L 0.04-0.54 fptv=003) BASOPHILS ABSOLUTE COUNT (BEAKER) (test 0.03 K/ L 0.01-0.08 hfrb=026) IMMATURE GRANULOCYTES-RELATIVE PERCENT (BEAKER) 0 % 0-1 (test [id number]=[id number]) RAD, CHEST, 1 VIEW, NON [id number] 22:42:00Reason for exam:->pre op evalShould this be performed at the bedside?->YesFINAL REPORT INDICATION: pre op eval COMPARISON: None TECHNIQUE: Single frontal view of the chest. FINDINGS: Lungs and pleura: Clear lungs. No effusion.Heart and mediastinum: Normal heart size. Unremarkable mediastinal contours.Osseous structures: No acute abnormality.Other: None. IMPRESSION: No acute intrathoracic abnormality. Signed: JR Horta Robert [facility] Verified Date/Time: 11/16/2017 22:42:55 Reading Location: [address] Reading Room
--- NOTE | 2018-06-05 00:42 | ER ---
Nurse's Notes [facility] Name: Jaswinder Roa Age: 62 yrs Sex: Male : 1955 Arrival Date: 06/05/2018 Time: 00:04 Bed 7 Private MD: Diagnosis: Pain in right foot-acute ischemic right lower extremety;Tobacco abuse counseling;Tobacco use;Unspecified kidney failure;Elevated white blood cell count;Anemia, unspecified Presentation: 06/05 00:07 Presenting complaint: Patient states: he has been having swelling and pain in his R aa1 foot x 2 weeks. States he was seen here last night for it and had negative u/s for DVT but states the pain keeps getting worse and he is very concerned. States, "I wish you could just transfer me up to [place] where my vascular surgeon is so they can do something about it.". Transition of care: patient was not received from another setting of care. Onset of symptoms was May 22, 2018. Risk Assessment: Do you want to hurt yourself or someone else? Patient reports no desire to harm self or others. Initial Sepsis Screen: Does the patient meet any 2 criteria? No. Patient's initial sepsis screen is negative. Does the patient have a suspected source of infection? Yes: Skin breakdown/wound. Care prior to arrival: None. 00:07 Method Of Arrival: EMS: [facility] aa1 00:07 Acuity: CHICHI 3 aa1 Historical: - Allergies: 00:11 tramadol; aa1 - PMHx: 00:11 DVT; Hypertension; rectal cancer with metastasis; liver cancer; pulmonary fibrosis; aa1 chemo; - PSHx: 00:11 right foot sx; aa1 - Immunization history:: Adult Immunizations unknown. - Social history:: Smoking status: Patient uses tobacco products, smokes one pack cigarettes per day. - Ebola Screening: : No symptoms or risks identified at this time. - Family history:: not pertinent. Screenin:12 Abuse screen: Denies threats or abuse. Denies injuries from another. Nutritional aa1 screening: No deficits noted. Tuberculosis screening: No symptoms or risk factors identified. Fall Risk Gait- Impaired (20 pts.). Assessment: 00:12 General: Appears in no apparent distress. uncomfortable, Behavior is calm, cooperative, aa1 appropriate for age. Pain: Complains of pain in right foot Pain currently is 10 out of 10 on a pain scale. Pain began 2 weeks ago Is continuous. Neuro: Level of Consciousness is awake, alert, obeys commands, Oriented to person, place, time, situation. Cardiovascular: Denies chest pain, palpitations, shortness of breath, Heart tones S1 S2 present Rhythm is regular. Respiratory: Airway is patent Respiratory effort is even, unlabored, Respiratory pattern is regular, symmetrical. GI: No signs and/or symptoms were reported involving the gastrointestinal system. : No signs and/or symptoms were reported regarding the genitourinary system. EENT: No signs and/or symptoms were reported regarding the EENT system. Derm: Skin is intact, is healthy with good turgor, Skin is pink, warm \\T\\ dry. Right foot dusky \\T\\ cold to the touch. Derm: Wound noted right first toe Wound is necrotic to the tip of R great toe with redness \\T\\ swelling present and absence of nail noted. Musculoskeletal: Circulation, motion, and sensation intact. Capillary refill is sluggish, in right toes. Swelling present in right foot. 01:34 Reassessment: Patient appears in no apparent distress at this time. Patient and/or aa1 family updated on plan of care and expected duration. Pain level reassessed. Patient is alert, oriented x 3, equal unlabored respirations, skin warm/dry/pink. Report given to Ricardo Landeros RN at [facility]. 02:32 Reassessment: Patient appears in no apparent distress at this time. Patient is alert, aa1 oriented x 3, equal unlabored respirations, skin warm/dry/pink. [facility] present for transfer. Vital Signs: 00:11 BP 167 / 86; Pulse 96; Resp 18; Temp 98.3(O); Pulse Ox 99% on R/A; Weight 90.72 kg; aa1 Height 6 ft. 2 in. (187.96 cm); Pain 10; 01:25 BP 160 / 87; Pulse 98; Resp 18; Pulse Ox 100% on R/A; Pain 8/; aa1 01:46 BP 145 / 68; Pulse 94; Resp 20; Temp 98.0(O); Pulse Ox 100% on R/A; aa1 02:32 BP 144 / 73; Pulse 91; Resp 18; Pulse Ox 100% on R/A; Pain 8/10; aa1 00:11 Body Mass Index 25.68 (90.72 kg, 187.96 cm) aa1 [place] Score: 00:27 Eye Response: spontaneous(4). Verbal Response: oriented(5). Motor Response: obeys [place] commands(6). Total: 15. ED Course: 00:04 Patient arrived in ED. aa1 00:09 Triage completed. aa1 00:11 Arm band placed on right wrist. aa1 00:12 Elias Yusuf MD is Attending Physician. [place] 00:12 Patient has correct armband on for positive identification. Bed in low position. Call aa1 light in reach. Pulse ox on. NIBP on. 00:20 EKG done, by ED staff, reviewed by Elias Yusuf MD. aa1 00:25 Inserted saline lock: in right antecubital area, using aseptic technique. Blood aa1 collected. 00:47 XRAY Chest (1 view) In Process Unspecified. EDMS 00:47 Foot Right 3 View XRAY In Process Unspecified. EDMS 00:47 X-ray completed. Portable x-ray completed in exam room. Patient tolerated procedure kw poorly. 01:02 Inserted saline lock: 20 gauge in left upper arm, using aseptic technique. aa1 01:05 Keila Cabello, RN is Primary Nurse. aa1 01:45 No provider procedures requiring assistance completed. Patient transferred, IV remains aa1 in place. Dressings: Michael x 1 right foot 4X4s X 1; right foot. Administered Medications: 00:43 Drug: Zofran 4 mg Route: IVP; Site: right antecubital; aa1 01:37 Follow up: Response: No adverse reaction aa1 00:45 Drug: Pepcid 20 mg Route: IVP; Site: right antecubital; aa1 01:37 Follow up: Response: No adverse reaction aa1 00:45 Drug: Nitro-Bid Ointment 2 % 1 inches Route: Transdermal; Site: affected area; aa1 00:47 Drug: morphine 4 mg Route: IVP; Site: right antecubital; aa1 01:37 Follow up: Response: No adverse reaction; Pain is decreased aa1 00:49 Drug: Heparin (UT-Bolus No thrombolytic) - HEParin 60 units/kg {Co-Signature: lp1 aa1 (Sindy Heard RN).} Route: IVP; Site: right antecubital; 01:37 Follow up: Response: No adverse reaction aa1 00:50 Drug: Heparin (UT Drip) 12 units/kg/hr - (HEParin 11867 units, D5W 500 ml) aa1 {Co-Signature: lp1 (Sindy Heard RN).} Route: IV; Rate: calculated rate; Site: right antecubital; 01:37 Follow up: IV Status: Infusion continued upon transfer aa1 00:55 Drug: Zosyn 3.375 grams Route: IVPB; Infused Over: 60 mins; Site: right antecubital; aa1 01:55 Follow up: IV Status: Completed infusion aa1 01:05 Drug: vancoMYCIN 1 grams Route: IVPB; Infused Over: 2 hrs; Site: left upper arm; aa1 02:32 Follow up: IV Status: Infusion continued upon transfer aa1 Outcome: 00:42 ER care complete, transfer ordered by MD. [place] 02:32 Transferred by ground EMS to [facility], Transfer form completed. aa1 02:32 Condition: stable 02:32 Discharge instructions given to patient, Instructed on the need for transfer, Demonstrated understanding of instructions. 02:34 Patient left the ED. aa1 Signatures: Dispatcher [employer] Keila Humphreys, RN RN aa1 Elias Yusuf MD MD cha Whitley, Kimberlee kw Laura Pena RN lp1 Corrections: (The following items were deleted from the chart) 00:47 00:45 X-ray completed. Portable x-ray completed in exam room. Patient tolerated kw procedure well. kw
--- NOTE | 2018-06-05 00:43 | EDPHYS ---
Physician Documentation [facility] Name: Jaswinder Roa Age: 62 yrs Sex: Male : 1955 Arrival Date: 06/05/2018 Time: 00:04 Bed 7 Private MD: ED Physician Elias Yusuf HPI: 06/05 00:27 This 62 yrs old Male presents to ER via EMS with complaints of Foot Pain. [place] 00:27 The patient presents with decreased range of motion, pain, swelling, tenderness, cold [place] to touch. The complaints affect the right foot, lateral aspect of right calf, right ankle, lateral aspect of right foot, right calf, right Achilles, right heel, medial aspect of right calf, medial aspect of right foot, right dahl, anterior aspect of right ankle and dorsum of right foot. Context: The problem was sustained at home. Onset: The symptoms/episode began/occurred 3 day(s) ago. Modifying factors: The symptoms are alleviated by nothing, elevation of extremity, the symptoms are aggravated by weight bearing, movement. Associated signs and symptoms: The patient has no apparent associated signs or symptoms. Severity of symptoms: At their worst the symptoms were moderate, severe, in the emergency department the symptoms are unchanged. The patient has experienced similar episodes in the past, a few times. Historical: - Allergies: 00:11 tramadol; aa1 - PMHx: 00:11 DVT; Hypertension; rectal cancer with metastasis; liver cancer; pulmonary fibrosis; aa1 chemo; - PSHx: 00:11 right foot sx; aa1 - Immunization history:: Adult Immunizations unknown. - Social history:: Smoking status: Patient uses tobacco products, smokes one pack cigarettes per day. - Ebola Screening: : No symptoms or risks identified at this time. - Family history:: not pertinent. ROS: 00:27 Constitutional: Negative for fever, chills, and weight loss, Eyes: Negative for injury, [place] pain, redness, and discharge, ENT: Negative for injury, pain, and discharge, Neck: Negative for injury, pain, and swelling, Cardiovascular: Negative for chest pain, palpitations, and edema, Respiratory: Negative for shortness of breath, cough, wheezing, and pleuritic chest pain, Abdomen/GI: Negative for abdominal pain, nausea, vomiting, diarrhea, and constipation, Back: Negative for injury and pain, : Negative for injury, bleeding, discharge, and swelling, Skin: Negative for injury, rash, and discoloration, Neuro: Negative for headache, weakness, numbness, tingling, and seizure, Psych: Negative for depression, anxiety, suicide ideation, homicidal ideation, and hallucinations, Allergy/Immunology: Negative for hives, rash, and allergies, Endocrine: Negative for neck swelling, polydipsia, polyuria, polyphagia, and marked weight changes, Hematologic/Lymphatic: Negative for swollen nodes, abnormal bleeding, and unusual bruising. 00:27 MS/extremity: Positive for decreased range of motion, pain, swelling, tenderness, of the lateral aspect of right calf, right ankle, lateral aspect of right foot, right calf, right Achilles, right heel, medial aspect of right calf, medial aspect of right foot, right dahl, anterior aspect of right ankle and dorsum of right foot. Exam: 00:27 Constitutional: This is a well developed, well nourished patient who is awake, alert, [place] and in no acute distress. Head/Face: Normocephalic, atraumatic. Eyes: Pupils equal round and reactive to light, extra-ocular motions intact. Lids and lashes normal. Conjunctiva and sclera are non-icteric and not injected. Cornea within normal limits. Periorbital areas with no swelling, redness, or edema. ENT: Nares patent. No nasal discharge, no septal abnormalities noted. Tympanic membranes are normal and external auditory canals are clear. Oropharynx with no redness, swelling, or masses, exudates, or evidence of obstruction, uvula midline. Mucous membranes moist. Neck: Trachea midline, no thyromegaly or masses palpated, and no cervical lymphadenopathy. Supple, full range of motion without nuchal rigidity, or vertebral point tenderness. No Meningismus. Chest/axilla: Normal chest wall appearance and motion. Nontender with no deformity. No lesions are appreciated. Cardiovascular: Regular rate and rhythm with a normal S1 and S2. No gallops, murmurs, or rubs. Normal PMI, no JVD. No pulse deficits. Respiratory: Lungs have equal breath sounds bilaterally, clear to auscultation and percussion. No rales, rhonchi or wheezes noted. No increased work of breathing, no retractions or nasal flaring. Abdomen/GI: Soft, non-tender, with normal bowel sounds. No distension or tympany. No guarding or rebound. No evidence of tenderness throughout. Back: No spinal tenderness. No costovertebral tenderness. Full range of motion. Male : Normal genitalia with no discharge or lesions. Neuro: Awake and alert, GCS 15, oriented to person, place, time, and situation. Cranial nerves II-XII grossly intact. Motor strength 5/5 in all extremities. Sensory grossly intact. Cerebellar exam normal. Normal gait. Psych: Awake, alert, with orientation to person, place and time. Behavior, mood, and affect are within normal limits. 00:27 Skin: Appearance: Color: pale, Temperature: cold, petechiae, not noted, ecchymosis, not noted, diaphoresis is not appreciated, abscess, not appreciated, cellulitis, is not appreciated. Vital Signs: 00:11 BP 167 / 86; Pulse 96; Resp 18; Temp 98.3(O); Pulse Ox 99% on R/A; Weight 90.72 kg; aa1 Height 6 ft. 2 in. (187.96 cm); Pain 10/10; 01:25 BP 160 / 87; Pulse 98; Resp 18; Pulse Ox 100% on R/A; Pain 8/10; aa1 01:46 BP 145 / 68; Pulse 94; Resp 20; Temp 98.0(O); Pulse Ox 100% on R/A; aa1 02:32 BP 144 / 73; Pulse 91; Resp 18; Pulse Ox 100% on R/A; Pain 8/10; aa1 00:11 Body Mass Index 25.68 (90.72 kg, 187.96 cm) aa1 [place] Com[place] Score: 00:27 Eye Response: spontaneous(4). Verbal Response: oriented(5). Motor Response: obeys [place] commands(6). Total: 15. MDM: 00:12 Patient medically screened. [facility] 00:30 Data reviewed: vital signs, nurses notes, lab test result(s), EKG, radiologic studies, [place] doppler, plain films. 06/05 00:04 Order name: Basic Metabolic Panel; Complete Time: 01:53 aa06/05 00:04 Order name: CBC with Diff; Complete Time: 01:05 aa06/05 00:04 Order name: LFT's; Complete Time: 01:53 06/05 00:04 Order name: Magnesium; Complete Time: 01:53 06/05 00:04 Order name: NT PRO-BNP; Complete Time: 01:53 06/05 00:04 Order name: PT-INR; Complete Time: 01:05 06/05 00:04 Order name: Troponin (emerg Dept Use Only); Complete Time: 01:53 06/05 00:04 Order name: XRAY Chest (1 view) 06/05 00:04 Order name: Foot Right 3 View XRAY 06/05 00:04 Order name: EKG; Complete Time: 00:06 06/05 00:04 Order name: Cardiac monitoring; Complete Time: 00:06 06/05 00:04 Order name: EKG - Nurse/Tech; Complete Time: 01:13 06/05 00:04 Order name: IV Saline Lock; Complete Time: 01:13 06/05 00:04 Order name: Labs collected and sent; Complete Time: 01:13 06/05 00:04 Order name: O2 Per Protocol; Complete Time: 00:06 06/05 00:04 Order name: O2 Sat Monitoring; Complete Time: 00:06 06/05 00:31 Order name: Wound Care: saline gauze; Complete Time: 01:45 [place] Administered Medications: 00:43 Drug: Zofran 4 mg Route: IVP; Site: right antecubital; aa1 01:37 Follow up: Response: No adverse reaction aa1 00:45 Drug: Pepcid 20 mg Route: IVP; Site: right antecubital; aa1 01:37 Follow up: Response: No adverse reaction aa1 00:45 Drug: Nitro-Bid Ointment 2 % 1 inches Route: Transdermal; Site: affected area; aa1 00:47 Drug: morphine 4 mg Route: IVP; Site: right antecubital; aa1 01:37 Follow up: Response: No adverse reaction; Pain is decreased aa1 00:49 Drug: Heparin (MS-Bolus No thrombolytic) - HEParin 60 units/kg {Co-Signature: lp1 aa1 (Sindy Heard RN).} Route: IVP; Site: right antecubital; 01:37 Follow up: Response: No adverse reaction aa1 00:50 Drug: Heparin (MS Drip) 12 units/kg/hr - (HEParin 21102 units, D5W 500 ml) aa1 {Co-Signature: lp1 (Sindy Heard RN).} Route: IV; Rate: calculated rate; Site: right antecubital; 01:37 Follow up: IV Status: Infusion continued upon transfer aa1 00:55 Drug: Zosyn 3.375 grams Route: IVPB; Infused Over: 60 mins; Site: right antecubital; aa1 01:55 Follow up: IV Status: Completed infusion aa1 01:05 Drug: vancoMYCIN 1 grams Route: IVPB; Infused Over: 2 hrs; Site: left upper arm; aa1 02:32 Follow up: IV Status: Infusion continued upon transfer aa1 Disposition: 06/05/18 00:42 Transfer ordered to [facility]. Diagnosis are Pain in right foot - acute ischemic right lower extremety, Tobacco abuse counseling, Tobacco use, Unspecified kidney failure, Elevated white blood cell count, Anemia, unspecified. - Reason for transfer: Higher level of care. - Accepting physician is to [facility], vascular surgery. - Condition is Stable. - Problem is new. - Symptoms have improved. Signatures: Dispatcher [employer] EDKeila Wooten RN RN aa1 Elias Yusuf MD MD cha Laura Pena RN lp1 Corrections: (The following items were deleted from the chart) 00:43 00:42 06/05/2018 00:42 Transfer ordered to [facility]. Diagnosis is [place] Pain in right foot - acute ischemic right lower extremety. Reason for transfer: Higher level of care. Accepting physician is to [facility], vascular surgery. Condition is Stable. Problem is new. Symptoms have improved. [place] 01:54 00:43 06/05/2018 00:42 Transfer ordered to [facility]. Diagnosis is [place] Pain in right foot - acute ischemic right lower extremety; Tobacco abuse counseling; Tobacco use; Unspecified kidney failure. Reason for transfer: Higher level of care. Accepting physician is to [facility], vascular surgery. Condition is Stable. Problem is new. Symptoms have improved. [place] 02:34 01:54 06/05/2018 00:42 Transfer ordered to [facility]. Diagnosis is aa1 Pain in right foot - acute ischemic right lower extremety; Tobacco abuse counseling; Tobacco use; Unspecified kidney failure; Elevated white blood cell count; Anemia, unspecified. Reason for transfer: Higher level of care. Accepting physician is to [facility], vascular surgery. Condition is Stable. Problem is new. Symptoms have improved. [place]
[2018-06-05 00:45] LABS: Absolute Monocytes 0.8 K/uL (0.1-1.3); Absolute Neutrophil 9.4 K/uL (1.8-8.0); Basophils % 0.3 % (0-1.3); Eosinophils % 2.1 % (0-4.4); Hematocrit 33.9 % (39.6-49.0); Lymphocytes % 15.8 % (15.3-44.8); MPV 6.9 fL (7.6-11.3); Monocytes % 6.7 % (3.3-12.3); RBC Red Blood Cell Count 3.86 M/uL (4.33-5.43)
[2018-06-05] MEDS ORDERED: NITROGLYCERIN 1 GM PKT TD ONE (00:48)
[2018-06-05] MEDS ORDERED: MORPHINE 4 MG/ML SYR ONE (00:48)
[2018-06-05] MEDS ORDERED: HEPARIN 5000 UNIT/ML 1 ML VIAL ONE (00:48)
[2018-06-05 00:49] LABS: Protime INR 1.13
[2018-06-05] MEDS ORDERED: VANCOMYCIN 1 GM/250 ML BAG ONE (00:49)
[2018-06-05] MEDS ORDERED: ONDANSETRON 4 MG/2 ML VIAL ONE (00:49)
[2018-06-05] MEDS ORDERED: PIPER/TAZO/NS 3.375gm 3.375 GM/100 ML BAG ONE (00:49)
[2018-06-05] MEDS ORDERED: HEPARIN/D5W 25,000 UNIT/500 ML BAG IV ONE (00:49)
[2018-06-05] MEDS ORDERED: FAMOTIDINE 20 MG/2 ML VIAL IV ONE (00:49)
[2018-06-05 01:05] LABS: ALT/SGPT 17 U/L (12-78); AST/SGOT 44 U/L (15-37); Albumin 3.5 g/dL (3.4-5.0); Alkaline Phosphatase 96 U/L (45-117); BUN Blood Urea Nitrogen 10 mg/dL (7-18); Bicarbonate 24 mmol/L (21-32); Bilirubin Direct 0.1 mg/dL (0-0.2); Bilirubin Total 0.4 mg/dL (0.2-1.0); Glucose Level 112 mg/dL (74-106); Magnesium 1.9 mg/dL (1.8-2.4); NT PRO-BNP 193 pg/mL (<125); Potassium 4.2 mmol/L (3.5-5.1); Protein, Total 7.5 g/dL (6.4-8.2); Sodium Level 137 mmol/L (136-145); Troponin (Emerg Dept Use Only) < 0.02 ng/mL (0.0-0.045)
[2018-06-05 02:55] VITALS: TEMP 98; O2SAT 100
[2018-06-05 02:58] VITALS: BP 144/73
--- NOTE | 2018-06-05 07:20 | EKG ---
Test Date: 2018-06-05 Test Time: 00:22:39 Sand Hauler: RANDALL MEASUREMENT RESULTS: Intervals: Rate: 77 ND: 186 QRSD: 86 QT: 372 QTc: 420 [place]: P: 52 ND: 186 QRS: 48 T: 50 INTERPRETIVE STATEMENTS: Sinus rhythm with occasional premature ventricular complexes Otherwise normal ECG Compared to ECG 06/03/2018 15:59:25 No significant changes Electronically Signed On 06-05-18 07:20:16 LOCK STITCH CHANNELER by Casimiro Epperson
--- NOTE | 2018-06-05 08:30 | RAD REPORT ---
EXAM DESCRIPTION: RAD - Chest Single View - 06/05/2018 12:47 am CLINICAL HISTORY: Chest pain, shortness of breath COMPARISON: June 03 TECHNIQUE: AP portable chest image was obtained 0045 hours . FINDINGS: No new mass, consolidation or failure finding. Chronic interstitial lung disease is presen t. Parenchymal stranding and costophrenic angle blunting at the right base have not changed since the June 03 exam. Heart and vasculature are normal. No measurable pleural effusion and no pneumothora x. Port-A-Cath remains in place. No acute aortic findings suspected. IMPRESSION: No acute cardiopulmonary process. Chest exam is stable from June 03.
--- NOTE | 2018-06-05 08:33 | RAD REPORT ---
EXAM DESCRIPTION: RAD - Foot Right 3 View - 06/05/2018 12:49 am CLINICAL HISTORY: Right foot pain and swelling, patient localizes the pain primarily to the first to e COMPARISON: MRI right foot October 2017 FINDINGS: No fracture, dislocation or periosteal reaction. No erosive or destructive bone changes id entifiable. No air or foreign body in the soft tissues. Underlying degenerative changes are mild. No plantar spur . IMPRESSION: No acute or destructive bone process. No air, foreign body or suspicious soft tissue finding.
== END 2018-06-05 02:34 | disposition short-term general hospital (02) ==
LOC: ER
DX: M62.261 Nontraumatic ischemic infarction of muscle, right lower leg (principal); D72.829 Elevated white blood cell count, unspecified; D64.9 Anemia, unspecified; N19 Unspecified kidney failure; Z72.0 Tobacco use; Z71.6 Tobacco abuse counseling; Z88.5 Allergy status to narcotic agent; I10 Essential (primary) hypertension
CPT/HCPCS: 36415; 71045; 73630; 80048; 80076; 83735; 83880; 84484; 85025; 85610; 93005; 99285; J1644; J2405; J2543; J3370

== ENCOUNTER 2018-06-13 10:05 | Inpatient (IN) | payer OTHER ==
--- NOTE | 2018-06-13 15:05 | R.PREADM ---
SCREENING DATE AND TIME 06/13/2018 10:22 (HEARINGS REPORTER) ANTICIPATED REHAB ADMISSION DATE 06/15/2018 REFERRING FACILITY [facility] REFERRAL DATE AND TIME 06/13/2018 10:22 (HEARINGS REPORTER) ACUTE ADMIT DATE 06/05/2018 Previous Rehabilitation(s): No. 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 David Sosa M.D. MR# [id number] NAME GARY RANDALL ADDRESS [address] [facility] PHONE [facility] [id number] DATE OF 1955 AGE 62 SSN# [id number] GENDER male MARITAL STATUS Unknown RACE white ADMIT FROM 02 - [facility] PRE-HOSPITAL LIVING SETTING 01 - Home (private home/apt. board/care, assisted living, longterm, transitional living) HOME TYPE AND DETAILS Type of home: single family house # of steps to enter the residence: 0 # of steps within the residence: 0 # of levels in the residence: 1 PRE-HOSPITAL LIVING WITH Alone FAMILY SUPPORT No PRIMARY FAMILY CONTACT NAME Armando Stewart PRIMARY FAMILY CONTACT PHONE PHONE PRIMARY FAMILY CONTACT ON ADM.? no IS PRIMARY FAMILY CONTACT AUTH. REP.? no 1ST EMERGENCY CONTACT Armando Stewart 1ST CONTACT PHONE PHONE 1ST CONTACT ON ADM. no IS 1ST CONTACT AUTH. REP.? no PHONE 2ND CONTACT ON ADM.? 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 No ANOTHER LIBERTARIAN RESPONSIBLE? No PRIMARY REHAB/ACUTE DIAGNOSIS: Peripheral vascular disease ONSET DATE 06/05/2018 REHAB IMPAIRMENT CATEGORY (RADHA): 10 Amputation, lower extremity (Amp/LE) MEETS 60% rule AFFECTED EXTREMITIES: RLE PRIMARY DIAGNOSIS-RELATED SURGERIES: Emergency Amputation of Limb(Unilateral Lower Limb Above the Knee (AK)) - performed by Arthur Oconnor on 06/05/2018 COMORBID REHAB/ACUTE DIAGNOSES: - N/A hypertension CKD PVD INTERVENTIONS: - Hypertension Fluid management Medications VS - PVD Olmos exercises Medications RISK FOR COMPLICATIONS: - Hypertension CVA Hypotension [place] TIA - PVD Amputation Gangrene Infection Ischemic ulcers Sepsis Wounds SUMMARY OF ACUTE HOSPITALIZATION: Pt. is a 62 yo Right-handed white male. On 06/05/2018 he was admitted to [facility] and underwent emergency surger y for Peripheral vascular disease (Amputation of Limb(Unilateral Lower Limb Above the Knee (AK))) by Arthur Oconnor. Pre-morbidly, Pt. was independent/mod-I in Transfers Control, Communication, Social Cognition, Self-C are, Sphincter Control, and Locomotion; and he had good Sphincter Control. Currently, he has deficits of Safety Awareness, Transfers Control, Communication, Social Cognition, B alance, Endurance, Locomotion, and Self-Care. Pt. is now referred to [facility] for acute in-patient rehabilitation in order to maximize patient's functional independence in activities of daily living, strength, ROM, and mobi lity. Patient has realistic goal of being discharged at assistance level 6-[place] to reside at Home with Pt self. CONSULT: Consult Certified Prosthetic for prosthesis construction PAST MEDICAL HISTORY CKD PVD hypertension cancer rectal/colon DVT MEDICATION ALLERGIES: TRAMADOL ENVIRONMENTAL ALLERGIES: - Substance Allergies None Known - Other Allergies None Known CODE STATUS: Full code WEIGHT/HEIGHT/BMI: WEIGHT 186 lbs HEIGHT 6' 2" BMI 23.9 DIET: - Diet Type Regular - Diet - Solid Texture Regular - Diet - Liquid Texture Regular - Tube Feed N/A SKIN DIAGRAM: amputation on Right knee; extent - small; stage - NS(Not Stageable). Treatment - Per Physician's Orde rs. REVIEW OF SYSTEMS: - Gen Alert and awake Lying in bed No apparent distress Oriented to: person, time, and place - Vital Signs Vital signs stable, afebrile - CVS RRR VITAL SIGNS Temperature: 98.8 F SBP/DBP: 141/73 Pulse: 85 Resp: 20 Vital signs stable, afebrile CURRENT SPHINCTER CONTROL: Pre-hospital bladder status: continent # of bladder accidents in the last 7 days prior to screenin Pre-hospital bowel status: continent # of bowel accidents in the last 7 days prior to screenin Last Bowel Movement Date: 06/13/2018 DETAILED CURRENT FUNCTIONAL STATUS: - Bladder accident frequency: Ind - No accidents in the past 7 days - Bowel accident frequency: Ind - No accidents in the past 7 days - Walking score based on distance walked: 1(<=50ft) FUNCTIONAL STATUS: - Self-Care A. Eating Ind Ind B. Grooming Ind sup C. Bathing Ind modA D. Dressing - Upper Ind sup E. Dressing - Lower Ind maxA F. Toileting Ind modA - Sphincter Control G: Bladder control Ind Ind H: Bowel control Ind Ind - Transfers Control I. Bed/Chair/Wheelchair Ind [place] J. Toilet Ind [place] K. Tub/Shower Ind [place] - Locomotion L. Walk/Wheelchair (B) Ind Dep M. Stairs Ind ADNO - Communication N. Comprehension (B) Ind sup O. Expression (B) Ind sup - Social Cognition P. Social Interaction Ind sup Q. Problem Solving Ind sup R. Memory Ind sup - Endurance Fair - Balance Poor - Safety Awareness Fair CURRENT FUNC. DEFICITS: Safety Awareness, Transfers Control, Communication, Social Cognition, Balance, Endurance, Locomotion, and Self-Care THERAPY NOTES FROM ACUTE CARE: Attached. SPECIAL NEEDS: - Safety Concerns Skin breakdown precautions needed due to skin breakdown risk PRECAUTIONS: - Weight Bearing Precaution NWB right LE PATIENT NEEDS ACTIVE AND ONGOING THERAPEUTIC INTERVENTION OF MULTIPLE THERAPY DISCIPLINES, INCLUDING: - Orthotics/Prosthetics Prosthetic Evaluation. - Occupational Therapy Evaluate and Treat. - Physical Therapy Evaluate and Treat. PATIENT NEEDS CLOSE MEDICAL SUPERVISION BY A REHABILITATION PHYSICIAN FOR: Bowel and Bladder Management Coordination of Treatment Team Medical and Co-Morbidity Management Post-Op Complications Wound Care PATIENT REQUIRES 24X7 REHAB NURSING FOR MEDICAL AND FUNCTIONAL MGT. OF THE FOLLOWING DEFICITS: ADL's Ambulation Bowel and Bladder Management Cognition Communication Disease Management Medication Management Patient/Family Education Providing Safe Environment Skin Integrity Transfers PATIENT REQUIRES INTENSIVE, COORDINATED INTERDISCIPLINARY APPROACH TO REHAB: Arranging Home Equipment/Services Discharge Planning Family Intervention/Training Health Insurance Sales Agent/Case Management PATIENT REHAB POTENTIAL: Expected level of measurable improvement will be of a practical value to patient's functional capacit y or adaptations to impairments Has a viable Discharge Plan Medically appropriate; condition is sufficiently stable to participate in intensive rehab program Patient is able and expected to receive 3 hours of individualized therapy daily on at least 5 of ever y 7 days Patient's prognosis for significant practical improvement within a reasonable period of time appears Good DISCHARGE PLAN: - Estimated Length of Stay (days) 11. - Consensus on plan Discharge plan has been discussed with primary caregiver. Patient/Family is in agreement with the vinh n. Primary caregiver is in agreement with the plan. - Patient/Family Goals Return home with assistance. - Planned Living Setting Upon Discharge Home, to live alone. Primary caregiver: Pt self. RECOMMENDED CARE LEVEL: IRF RECOMMENDATION DETAILS: Recommended Admission to Comprehensive Rehabilitation Program to Increase Functional [place] SCREENER'S COMPLETENESS CONFIRMATION: - Screening Confirmation The patient data collection on this preadmission screening form is finished PHYSICIANS REVIEW AND ADMISSION DETERMINATION Admit - Based on my review of the Pre-Admission Screening results, in my medical judgment and experie nce, I concur with the findings and recommend admission to [facility], as this patient requires an IRF level of care. SIGNATURE PANEL: Clinical Liaison - [electronically] signed by Beulah Burger on 06/13/2018 at 14:16 (HEARINGS REPORTER) Clinical Liaison - [electronically] signed by Edy Ramirez on 06/13/2018 at 14:17 (HEARINGS REPORTER) Physician Reviewer - [electronically] signed by Dr. David Sosa M.D. on 06/13/2018 at 15:04 (HEARINGS REPORTER )
--- OUTSIDE RECORDS SUMMARY | 2018-06-15 17:17 | XMS REPORT | Clinical Summary ---
:1955 Author Organization [facility] Address [address] [place] [address] Care Team Providers Name Role Phone Sharpless Primary Care Provider Arthur Alvarez Unavailable Allergies Active Allergy Reactions Severity Noted Date Comments Tramadol 11/17/2017 Passed out Medications Medication Sig Dispensed Refills Start Date End Date Status gabapentin Take 1 90 capsule 1 01/28/2018 Active (NEURONTIN) 100 MG capsule (100 9 capsule mg total) by mouth 3 (three) times daily. amLODIPine (NORVASC) Take 1 tablet 60 tablet 1 02/16/2018 Active 5 MG tablet (5 mg total) 9 by mouth 2 (two) times daily. pantoprazole Take 1 tablet 60 tablet 1 02/16/2018 Active (PROTONIX) 40 MG (40 mg total) tablet by mouth daily. HYDROcodone-acetamin Take 1 tablet 30 tablet 0 06/13/2018 Active ophen (NORCO 10-325) by mouth 9 10-325 mg per tablet every 4 (four) hours as needed for up to 10 days. Max Daily Amount: 6 tablets ondansetron Take 1 tablet 20 tablet 0 06/13/2018 Active (ZOFRAN-ODT) 4 MG (4 mg total) 9 disintegrating by mouth tablet every 8 (eight) hours as needed for up to 7 days. polyethylene glycol Take 17 g by 14 each 0 06/14/2018 Active (GLYCOLAX) 17 gram mouth daily 9 packet for 3 days. senna (SENOKOT) 8.6 Take 1 tablet 0 06/13/2018 Active mg tablet (8.6 mg 0 total) by mouth nightly. mINOCYCLine Take 1 10 capsule 0 06/15/2018 Active (MINOCIN,DYNACIN) capsule (100 9 100 MG capsule mg total) by mouth every 12 (twelve) hours for 3 days. aspirin 81 MG Take 1 tablet 30 tablet 1 11/22/2017 Discontinued chewable tablet (81 mg total) 8 by mouth daily. lisinopril Take 1 tablet 30 tablet 1 11/22/2017 Discontinued (PRINIVIL,ZESTRIL) (10 mg total) 8 10 MG tablet by mouth daily. nicotine (NICODERM Place 1 patch 28 patch 0 11/22/2017 CQ) 14 mg/24 hr onto the skin 8 patch daily for 30 days. clopidogrel (PLAVIX) Take 1 tablet 30 tablet 1 11/21/2017 Discontinued 75 mg tablet (75 mg total) 8 by mouth daily. acetaminophen-codein Take 1 tablet 30 tablet 0 11/21/2017 e (TYLENOL #3) by mouth 8 300-30 mg per tablet every 6 (six) hours as needed for up to 10 days. Max Daily Amount: 4 tablets warfarin (COUMADIN) Take 1 tablet 0 01/28/2018 Discontinued 5 MG tablet (5 mg total) 8 by mouth every evening. acetaminophen-codein Take 1 tablet 30 tablet 0 01/28/2018 Discontinued e (TYLENOL #3) by mouth 8 300-30 mg per tablet every 4 (four) hours as needed for up to 10 days. Max Daily Amount: 6 tablets clopidogrel (PLAVIX) Take 1 tablet 30 tablet 1 01/28/2018 Discontinued 75 mg tablet (75 mg total) 8 by mouth daily. nicotine (NICODERM Place 1 patch 28 patch 0 02/16/2018 CQ) 21 mg/24 hr onto the skin 8 patch daily for 30 days. aspirin 325 MG EC Take 1 tablet 30 tablet 1 02/16/2018 Discontinued tablet (325 mg 9 total) by mouth daily. cilostazol (PLETAL) Take 100 mg 0 05/05/2018 Discontinued 100 MG tablet by mouth 9 daily. acetaminophen-codein Take 1 tablet 0 Discontinued e (TYLENOL #3) by mouth 9 300-30 mg per tablet every 6 (six) hours as needed for Pain. doxycycline 0 06/03/2018 Discontinued (VIBRA-TABS) 100 MG 9 tablet mINOCYCLine Take 1 10 capsule 0 06/13/2018 Discontinued (MINOCIN,DYNACIN) capsule (100 9 100 MG capsule mg total) by mouth every 12 (twelve) hours for 5 days. Active Problems Problem Noted Date Rectal cancer 05/27/2018 HTN (hypertension) 05/19/2018 DVT, lower extremity 05/19/2018 Rectal cancer 02/08/2018 Critical lower limb ischemia 01/24/2018 Ischemia 01/23/2018 PVD (peripheral vascular disease) 11/17/2017 Peripheral vascular disease 11/16/2017 CKD (chronic kidney disease) stage 3, GFR 30-59 ml/min 04/25/2015 Overview: Baseline creatinine ~1.6-1.8 since 2016 Benign essential HTN ETOH abuse Tobacco abuse Resolved Problems Problem Noted Date Resolved Date Acute GI bleeding 05/18/2018 06/07/2018 Acute GI bleeding 02/05/2018 05/18/2018 Acute respiratory insufficiency 05/18/2018 Postoperative anemia due to acute blood loss 05/18/2018 Encounters Date Type Specialty Care Team Description 06/08/2018 Anesthesia Event Dee Naqvi MD 06/08/2018 Surgery Arthur Oconnor AMPUTATION,ABOVE MD Amira KNEE 06/06/2018 Surgery Arthur Oconnor THROMBECTOMY-LOWER MD Amira 06/06/2018 Anesthesia Event Joseph Ram 06/05/2018 Hospital Cardiology Arthur Oconnor Critical lower limb ischemia; - Encounter MD Amira CKD (chronic kidney disease) stage 3, GFR 30-59 ml/min ([facility]); 06/15/2018 Estrada, S/P BKA (below knee amputation) unilateral, right ( HCC); MD Jairo Impaired mobility and ADLs; Other abnormalities of gait and mobility; ETOH abuse 06/05/2018 Travel 05/23/2018 Anesthesia Event Cardiology Sujit García MD 05/23/2018 Anesthesia Event Gastroenterology [place]lliah, Premala 05/23/2018 Surgery Gastroenterology [place], SIGMOIDOSCOPY Zahira Larose [...] Fadi Philippe COLONOSCOPY,POLYPECT MD Nixon GOPAL 02/05/2018 [facility] Cardiology Neena, - Encounter Elizabeth Paniagua MD 02/16/2018 Daniel Morin MD Daniel, Jamuna V., MD 01/25/2018 Surgery Michela, SALES ORDER CLERK FEMORAL &/OR Timothy Paniagua MD POPLITEAL 01/23/2018 Anesthesia Event Ricardo Loyola MD 01/23/2018 [facility] Cardiology Thiellsmichaeldy, Ischemia - Encounter Carmelo Mccallum, 01/28/2018 Jairo Ramírez MD 01/23/2018 Surgery Arthur Oconnor ANGIOGRAM-LOWER MD Amira EXTREMITY 12/06/2017 Office Visit Cardiology Arthur Oconnor Postoperative state MD Amiar (Primary Dx) 11/17/2017 Surgery Arthur Oconnor BYPASS,FEMORAL-POPLI MD Amira TEAL 11/17/2017 Anesthesia Event Stefan Chase AA 11/17/2017 Orders Only General Internal Medicine 11/16/2017 [facility] Cardiology Arthur Oconnor Benign essential HTN - Encounter MD Amira (Primary Dx) 11/21/2017 after 06/14/2017 Immunizations Name Dates Previously Given Next Due [...] Vital Sign Reading Time Taken Blood Pressure 128/67 06/15/2018 7:55 AM [facility] [facility] Pulse 71 06/15/2018 7:55 AM [employer] Temperature 36.7 C (98.1 F) 06/15/2018 7:55 AM [facility] [facility] Respiratory Rate 20 06/15/2018 7:55 AM [facility] [employer] [facility] Oxygen Saturation 99% 06/15/2018 7:55 AM [facility] [facility] Inhaled Oxygen Concentration 21% 05/27/2018 8:20 PM [facility] Weight 80.5 kg (177 lb 7.5 oz) 06/12/2018 11:38 AM [facility] [facility] Height 188 cm (6' 2") 06/05/2018 3:57 AM [facility] [facility] Body Mass Index 22.79 06/12/2018 11:38 AM [facility] [facility] Plan of Treatment Date Type Specialty Care Team Description 06/29/2018 Office Visit Cardiology Arthur Oconnor MD [address] [address] Health Maintenance Due Date Last Done Comments INFLUENZA VACCINE Completed 02/07/2018 Implants Implanted Type Area Perianesthesia Rn Device Shelf Model / Identifier Expiration Serial / Date Lot [id number] Cardiovascular Left: CARDINAL 11/23/2019 [id number] / Implanted: Qty: 1 on 01/25/2018 [facility] [id number] Flseal Vhsd Full Strlprep 10ml [id number] - [id number] Cement/Filler/Adh Right: BUCHANAN:BIOSCI 04/11/2019 [id number] / Implanted: Qty: 1 on 11/17/2017 by Arthur Oconnor MD esive Leg / [id number] Floseal Vhsd Full Strlprep 5ml [id number] - [id number] Cement/Filler/Adh Right: BUCHANAN:BIOSCI 10/04/2019 [id number] / Implanted: Qty: 1 on 05/18/2018 by Arthur Oconnor MD [employer]ive Leg / [id number] Floseal Vhsd Full Strlprep 5ml [id number] - [id number] Cement/Filler/Adh Right: BUCHANAN:BIOSCI 11/05/2019 [id number] / Implanted: Qty: 1 on 06/06/2018 by Arthur Oconnor MD esive Groin / [id number] Grft Eptfe-Heparin Rng [id number] - [id number] Graft/Patch Right: WL GORE & 08/08/2021 [id number] / Implanted: Qty: 1 on 11/17/2017 by Arthur Oconnor MD Leg ASSC:MED PRDT [id number] / Grft Eptfe-Heparin Rng [id number] - [id number] Graft/Patch Right: WL GORE & 01/01/2022 [id number] / Implanted: Qty: 1 on 05/18/2018 by Arthur Oconnor MD Leg ASSC:MED PRDT [id number] / Grft Vsc Sealptfe [id number] - [id number] Graft/Patch Right: TERUMO: CARDIOVA 03/24/2021 [id number] / Implanted: Qty: 1 on 06/06/2018 by Arthur Oconnor MD [facility] / [id number] Procedures Procedure Name Priority Date/Time Associated Comments Diagnosis CBC W/PLT COUNT & Routine 06/15/2018 5:16 Results for this AUTO DIFFERENTIAL AM [employer] [facility] procedure are in the results section. PHOSPHORUS Routine 06/15/2018 5:16 Results for this AM [employer] procedure are in the results section. MAGNESIUM Routine 06/15/2018 5:16 Results for this AM [employer] procedure are in the results section. BASIC METABOLIC PANEL Routine 06/15/2018 5:16 Results for this (7) AM [employer] procedure are in the results section. CBC W/PLT COUNT & Routine 06/15/2018 5:16 Results for this AUTO DIFFERENTIAL AM [employer] procedure are in the results section. CBC W/PLT COUNT & Routine 06/14/2018 5:17 Results for this AUTO DIFFERENTIAL AM [employer] procedure are in the results section. PHOSPHORUS Routine 06/14/2018 5:17 Results for this AM [employer] procedure are in the results section. MAGNESIUM Routine 06/14/2018 5:17 Results for this AM [employer] procedure are in the results section. BASIC METABOLIC PANEL Routine 06/14/2018 5:17 Results for this (7) AM [employer] procedure are in the results section. CBC W/PLT COUNT & Routine 06/14/2018 5:17 Results for this AUTO DIFFERENTIAL AM [employer] procedure are in the results section. CBC W/PLT COUNT & Routine 06/13/2018 3:54 Results for this AUTO DIFFERENTIAL AM [facility] [facility] procedure are in the results section. PHOSPHORUS Routine 06/13/2018 3:54 Results for this AM [employer] procedure are in the results section. MAGNESIUM Routine 06/13/2018 3:54 Results for this AM [facility] procedure are in the results section. BASIC METABOLIC PANEL Routine 06/13/2018 3:54 Results for this (7) AM [facility] procedure are in the results section. CBC W/PLT COUNT & Routine 06/13/2018 3:54 Results for this AUTO DIFFERENTIAL AM [facility] procedure are in the results section. RHYTHM STRIP - SCAN 06/12/2018 3:21 PM [facility] [facility] CBC W/PLT COUNT & Routine 06/12/2018 4:18 Results for this AUTO DIFFERENTIAL AM [facility] procedure are in the results section. PHOSPHORUS Routine 06/12/2018 4:18 Results for this AM [employer] procedure are in the results section. MAGNESIUM Routine 06/12/2018 4:18 Results for this AM [employer] procedure are in the results section. BASIC METABOLIC PANEL Routine 06/12/2018 4:18 Results for this (7) AM [facility] procedure are in the results section. CBC W/PLT COUNT & Routine 06/12/2018 4:18 Results for this AUTO DIFFERENTIAL AM [facility] [facility] procedure are in the results section. CBC W/PLT COUNT & Routine 06/11/2018 5:57 Results for this AUTO DIFFERENTIAL AM [facility] [facility] procedure are in the results section. PHOSPHORUS Routine 06/11/2018 5:57 Results for this AM [facility] procedure are in the results section. MAGNESIUM Routine 06/11/2018 5:57 Results for this AM [facility] procedure are in the results section. BASIC METABOLIC PANEL Routine 06/11/2018 5:57 Results for this (7) AM [facility] procedure are in the results section. CBC W/PLT COUNT & Routine 06/11/2018 5:57 Results for this AUTO DIFFERENTIAL AM [facility] [facility] procedure are in the results section. CBC W/PLT COUNT & Routine 06/10/2018 6:55 Results for this AUTO DIFFERENTIAL AM [facility] [facility] procedure are in the results section. PHOSPHORUS Routine 06/10/2018 6:55 Results for this AM [facility] procedure are in the results section. MAGNESIUM Routine 06/10/2018 6:55 Results for this AM [facility] procedure are in the results section. BASIC METABOLIC PANEL Routine 06/10/2018 6:55 Results for this (7) AM [employer] procedure are in the results section. CBC W/PLT COUNT & Routine 06/10/2018 6:55 Results for this AUTO DIFFERENTIAL AM [facility] [facility] procedure are in the results section. BLOOD CULTURE Routine 06/10/2018 6:55 Results for this AM [employer] procedure are in the results section. BLOOD CULTURE Routine 06/10/2018 6:55 Results for this AM [employer] procedure are in the results section. CBC (HEMOGRAM ONLY) Routine 06/09/2018 4:26 Results for this AM [employer] procedure are in the results section. FUNGUS CULTURE + Routine 06/08/2018 8:26 SMEAR PM [employer] [facility] AFB CULTURE + SMEAR Routine 06/08/2018 8:26 PM [employer] SURGICALLY OBTAINED Routine 06/08/2018 8:26 Results for this CULTURE + GRAM STAIN PM [employer] procedure are in the results section. ANAEROBIC CULTURE Routine 06/08/2018 8:26 Results for this PM [employer] procedure are in the results section. SPIN/CONCENTRATION Routine 06/08/2018 8:26 Results for this CHARGE PM [employer] procedure are in the results section. FUNGUS CULTURE + Routine 06/08/2018 8:19 SMEAR PM [facility] [facility] AFB CULTURE + SMEAR Routine 06/08/2018 8:19 PM [employer] SURGICALLY OBTAINED Routine 06/08/2018 8:19 Results for this CULTURE + GRAM STAIN PM [employer] procedure are in the results section. ANAEROBIC CULTURE Routine 06/08/2018 8:19 Results for this PM [employer] procedure are in the results section. SPIN/CONCENTRATION Routine 06/08/2018 8:19 Results for this CHARGE PM [employer] procedure are in the results section. FUNGUS CULTURE + Routine 06/08/2018 8:12 SMEAR PM [employer] AFB CULTURE + SMEAR Routine 06/08/2018 8:12 PM [employer] SURGICALLY OBTAINED Routine 06/08/2018 8:12 Results for this CULTURE + GRAM STAIN PM [employer] procedure are in the results section. ANAEROBIC CULTURE Routine 06/08/2018 8:12 PM [employer] TISSUE EXAM AP Routine 06/08/2018 8:07 Results for this PM [employer] procedure are in the results section. AMPUTATION,ABOVE KNEE 06/08/2018 5:30 Gangrene (HCC) PM [employer] Special Needs REQ TF APTT Routine 06/08/2018 3:58 AM Results for this [employer] procedure are in the results section. CBC (HEMOGRAM ONLY) Routine 06/08/2018 3:58 AM Results for this [employer] procedure are in the results section. MAGNESIUM Routine 06/08/2018 3:58 AM Results for this [employer] procedure are in the results section. BASIC METABOLIC PANEL Routine 06/08/2018 3:58 AM Results for this (7) [employer] procedure are in the results section. APTT Routine 06/07/2018 8:50 PM Results for this [employer] procedure are in the results section. APTT Routine 06/07/2018 10:02 AM Results for this [employer] procedure are in the results section. CBC (HEMOGRAM ONLY) Routine 06/07/2018 1:44 AM Results for this [employer] procedure are in the results section. MAGNESIUM Routine 06/07/2018 1:44 AM Results for this [employer] procedure are in the results section. BASIC METABOLIC PANEL Routine 06/07/2018 1:44 AM Results for this (7) [employer] procedure are in the results section. APTT Routine 06/07/2018 1:44 AM Results for this [employer] procedure are in the results section. PT/APTT ERIN 06/06/2018 8:26 PM Results for this [employer] procedure are in the results section. HEMOGLOBIN AND STAT 06/06/2018 7:58 PM Results for this HEMATOCRIT [facility] procedure are in the results section. SODIUM NA-STAT LAB Routine 06/06/2018 6:59 PM Results for this [employer] procedure are in the results section. MAGNESIUM STAT 06/06/2018 6:59 PM Results for this [employer] procedure are in the results section. POTASSIUM STAT 06/06/2018 6:59 PM Results for this [employer] procedure are in the results section. TRANSFUSION SERVICE 06/06/2018 6:00 PM REPORT - SCAN [facility] [employer] [facility] POCT-ACT Routine 06/06/2018 4:26 PM Results for this [employer] procedure are in the results section. HGB/HCT (H&H) - STAT STAT 06/06/2018 3:59 PM Results for this LAB [facility] [facility] procedure are in the results section. GLUCOSE-STAT LAB STAT 06/06/2018 3:59 PM Results for this [employer] procedure are in the results section. POTASSIUM-STAT LAB STAT 06/06/2018 3:59 PM Results for this [employer] procedure are in the results section. SODIUM NA-STAT LAB STAT 06/06/2018 3:59 PM Results for this [employer] procedure are in the results section. BLOOD GAS, ARTERIAL STAT 06/06/2018 3:59 PM Results for this [employer] procedure are in the results section. CALCIUM, IONIZED STAT 06/06/2018 3:59 PM Results for this [employer] procedure are in the results section. RRL CRITICAL LABS STAT 06/06/2018 3:59 PM Results for this (ABG,NA,K,H&H,GLUCOSE) [facility] procedure are in the results section. THROMBECTOMY-LOWER 06/06/2018 2:25 PM Peripheral vascular [employer] disease (HCC) CBC W/PLT COUNT & AUTO Routine 06/06/2018 4:39 AM Results for this DIFFERENTIAL [employer] procedure are in the results section. CBC (HEMOGRAM ONLY) Routine 06/06/2018 4:39 AM Results for this [employer] procedure are in the results section. APTT Routine 06/06/2018 4:39 AM Results for this [employer] procedure are in the results section. MAGNESIUM Routine 06/06/2018 4:39 AM Results for this [employer] procedure are in the results section. BASIC METABOLIC PANEL Routine 06/06/2018 4:39 AM Results for this (7) [facility] procedure are in the results section. COMPREHENSIVE Routine 06/06/2018 4:39 AM Results for this METABOLIC PANEL [facility] procedure are in the results section. CBC W/PLT COUNT & AUTO Routine 06/06/2018 4:39 AM Results for this DIFFERENTIAL [facility] procedure are in the results section. APTT Routine 06/05/2018 9:19 PM Results for this [employer] procedure are in the results section. TYPE AND SCREEN, Routine 06/05/2018 1:24 PM Results for this AUTOMATED [facility] procedure are in the results section. APTT Routine 06/05/2018 1:24 PM Results for this [employer] procedure are in the results section. APTT Routine 06/05/2018 6:01 AM Results for this [employer] procedure are in the results section. CBC (HEMOGRAM ONLY) Routine 06/05/2018 6:01 AM Results for this [employer] procedure are in the results section. CBC W/PLT COUNT & AUTO Routine 05/29/2018 5:11 AM Results for this DIFFERENTIAL [employer] procedure are in the results section. COMPREHENSIVE Routine 05/29/2018 5:11 AM Results for this METABOLIC PANEL [facility] procedure are in the results section. CBC W/PLT COUNT & AUTO Routine 05/29/2018 5:11 AM Results for this DIFFERENTIAL [employer] procedure are in the results section. CBC W/PLT COUNT & AUTO Routine 05/28/2018 4:21 AM Results for this DIFFERENTIAL [employer] procedure are in the results section. COMPREHENSIVE Routine 05/28/2018 4:21 AM Results for this METABOLIC PANEL [facility] procedure are in the results section. CBC W/PLT COUNT & AUTO Routine 05/28/2018 4:21 AM Results for this DIFFERENTIAL [employer] procedure are in the results section. CBC W/PLT COUNT & AUTO Routine 05/27/2018 5:48 AM Results for this DIFFERENTIAL [employer] procedure are in the results section. CBC W/PLT COUNT & AUTO Routine 05/27/2018 5:48 AM Results for this DIFFERENTIAL [facility] procedure are in the results section. CBC W/PLT COUNT & AUTO Routine 05/26/2018 3:56 AM Results for this DIFFERENTIAL [employer] procedure are in the results section. CBC W/PLT COUNT & AUTO Routine 05/26/2018 3:56 AM Results for this DIFFERENTIAL [employer] procedure are in the results section. CBC W/PLT COUNT & AUTO Routine 05/25/2018 4:59 AM Results for this DIFFERENTIAL [facility] procedure are in the results section. MAGNESIUM Routine 05/25/2018 4:59 AM Results for this [employer] procedure are in the results section. BASIC METABOLIC PANEL Routine 05/25/2018 4:59 AM Results for this (7) [employer] procedure are in the results section. CBC W/PLT COUNT & AUTO Routine 05/25/2018 4:59 AM Results for this DIFFERENTIAL [employer] procedure are in the results section. CBC W/PLT COUNT & AUTO STAT 05/24/2018 12:50 PM Results for this DIFFERENTIAL [employer] procedure are in the results section. MAGNESIUM STAT 05/24/2018 12:50 PM Results for this [employer] procedure are in the results section. BASIC METABOLIC PANEL STAT 05/24/2018 12:50 PM Results for this (7) [employer] procedure are in the results section. CBC W/PLT COUNT & AUTO STAT 05/24/2018 12:50 PM Results for this DIFFERENTIAL [employer] procedure are in the results section. REPORT OF PROCEDURE - 05/23/2018 5:13 PM ENDOSCOPY URL [facility] [facility] SIGMOIDOSCOPY 05/23/2018 1:00 PM Rectal bleeding [employer] Special Needs flex sig w/ anes CBC W/PLT COUNT & Routine 05/23/2018 4:47 AM Results for this AUTO DIFFERENTIAL [facility] procedure are in the results section. MAGNESIUM Routine 05/23/2018 4:47 AM Results for this [employer] procedure are in the results section. BASIC METABOLIC PANEL Routine 05/23/2018 4:47 AM Results for this (7) [employer] procedure are in the results section. CBC W/PLT COUNT & Routine 05/23/2018 4:47 AM Results for this AUTO DIFFERENTIAL [facility] procedure are in the results section. HEMOGLOBIN AND Routine 05/22/2018 4:46 PM Results for this HEMATOCRIT [facility] procedure are in the results section. CBC W/PLT COUNT & STAT 05/22/2018 12:27 PM Results for this AUTO DIFFERENTIAL [facility] procedure are in the results section. MAGNESIUM STAT 05/22/2018 12:27 PM Results for this [employer] procedure are in the results section. CBC W/PLT COUNT & STAT 05/22/2018 12:27 PM Results for this AUTO DIFFERENTIAL [facility] procedure are in the results section. BASIC METABOLIC PANEL STAT 05/22/2018 12:27 PM Results for this (7) [employer] procedure are in the results section. BASIC METABOLIC PANEL Routine 05/20/2018 4:31 AM Results for this (7) [employer] procedure are in the results section. TRANSFUSION SERVICE 05/19/2018 5:50 PM REPORT - SCAN [facility] CBC W/PLT COUNT & Routine 05/19/2018 6:24 AM Results for this AUTO DIFFERENTIAL [employer] procedure are in the results section. CBC W/PLT COUNT & Routine 05/19/2018 6:24 AM Results for this AUTO DIFFERENTIAL [employer] procedure are in the results section. BASIC METABOLIC PANEL Routine 05/19/2018 6:24 AM Results for this (7) [employer] procedure are in the results section. 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 TYPE AND SCREEN, AUTOMATED Routine 05/18/2018 5:32 AM [employer] LIPID PANEL Routine 05/18/2018 5:32 AM [employer] CBC W/PLT COUNT & AUTO Routine 05/18/2018 5:32 AM [employer] Results for this DIFFERENTIAL procedure are in the results section. BASIC METABOLIC PANEL (7) Routine 05/18/2018 5:32 AM [employer] XR CHEST 1 VIEW Routine 05/17/2018 9:48 PM [employer] Results for this PORTABLE/BEDSIDE procedure are in the results section. VENOUS DOPPLER LEGS STAT 05/17/2018 9:15 PM [employer] Results for this BILATERAL procedure are in the results section. ECG 12-LEAD Routine 05/17/2018 8:08 PM [employer] Procedure Note - Interface, External Ris In - 05/17/2018 8:12 PM [employer] Ventricular Rate 88 BPM Atrial Rate 88 BPM P-R Interval 186 ms QRS Duration 90 ms Q-T Interval 366 ms QTC Calculation(Bazett) 442 ms P [place] 58 degrees R [place] 51 degrees T [place] 56 degrees Normal sinus rhythm Normal ECG No previous ECGs available ECG 12-LEAD Routine 05/17/2018 8:08 PM Results for this [employer] procedure are in the results section. ECG 12-LEAD Routine 05/17/2018 8:08 PM Results for this [employer] procedure are in the results section. PT/APTT Routine 05/17/2018 6:30 PM Results for this [employer] procedure are in the results section. PROTHROMBIN TIME/INR Routine 05/17/2018 6:30 PM Results for this [employer] procedure are in the results section. CBC W/PLT COUNT & AUTO Routine 05/17/2018 6:08 PM Results for this DIFFERENTIAL [employer] procedure are in the results section. PHOSPHORUS Routine 05/17/2018 6:08 PM Results for this [employer] procedure are in the results section. MAGNESIUM Routine 05/17/2018 6:08 PM Results for this [employer] procedure are in the results section. HEPATIC FUNCTION PANEL Routine 05/17/2018 6:08 PM Results for this [employer] procedure are in the results section. CBC W/PLT COUNT & AUTO Routine 05/17/2018 6:08 PM Results for this DIFFERENTIAL [employer] procedure are in the results section. BASIC METABOLIC PANEL Routine 05/17/2018 6:08 PM Results for this (7) [employer] procedure are in the results section. VASCULAR [...] CDT procedure are in the results section. 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 552mGy POCT-ACT Routine [...] CDT procedure are in the results section. 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 after 06/14/2017 Results CBC with platelet count + automated diff (06/15/2018 5:16 AM [employer])Only the most recent of23 resultswithin the time period is included. WBC 6.0 3.5 - 10.5 K/L [facility] RBC 3.20 (L) 4.63 - 6.08 M/L [facility] Hemoglobin 9.1 (L) 13.7 - 17.5 GM/DL [facility] Hematocrit 29.3 (L) 40.1 - 51.0 % [facility] MCV 91.6 79.0 - 92.2 fL [facility] MCH 28.4 25.7 - 32.2 pg [facility] MCHC 31.1 (L) 32.3 - 36.5 GM/DL [facility] RDW 14.7 (H) 11.6 - 14.4 % [facility] Platelets 300 150 - 450 K/CU MM [facility] MPV 9.5 9.4 - 12.4 fL [facility] nRBC 0 0 - 0 /100 WBC [facility] % Neutros 55 % [facility] % Lymphs 24 % [facility] % Monos 16 % [facility] % Eos 4 % [facility] % Baso 1 % [facility] # Neutros 3.34 1.78 - 5.38 K/L [facility] # Lymphs 1.43 1.32 - 3.57 K/L [facility] # Monos 0.94 (H) 0.30 - 0.82 K/L [facility] # Eos 0.23 0.04 - 0.54 K/L [facility] # Baso 0.06 0.01 - 0.08 K/L [facility] Immature Granulocytes-Relative 1 0 - 1 % [facility] Specimen Blood - Arm, Left Performing Organization Address City/[facility]/Zipcode Phone Number [address] [address] [phone] CENTER Phosphorus (06/15/2018 5:16 AM [employer])Only the most recent of9 resultswithin the time period is included. Phosphorus 3.5 2.3 - 4.7 mg/dL [facility] Specimen Blood - Arm, Left Performing Organization Address City/[facility]/Zipcode Phone Number [address] [address] CENTER Magnesium (06/15/2018 5:16 AM [employer])Only the most recent of23 resultswithin the time period is included. Magnesium 2.1 1.6 - 2.6 mg/dL [facility] Specimen Blood - Arm, Left Performing Organization Address City/[facility]/Zipcode Phone Number [address] [address] [phone] CENTER Basic Metabolic Panel (06/15/2018 5:16 AM [employer])Only the most recent of39 resultswithin the time period is included. Sodium 138 136 - 145 meq/L [facility] Potassium 4.3 3.5 - 5.1 meq/L [facility] Chloride 106 98 - 107 meq/L [facility] CO2 23 22 - 29 meq/L [facility] BUN 17 7 - 21 mg/dL [facility] Creatinine 1.35 (H) 0.57 - 1.25 mg/dL [facility] Glucose 99 70 - 105 mg/dL [facility] Calcium 9.1 8.4 - 10.2 mg/dL [facility] EGFR 54Comment: ESTIMATED GFR IS mL/min/1.73 sq m [facility] NOT ACCURATE CREATININE [facility] CLEARANCE IN PREDICTING GLOMERULAR FILTRATION RATE. ESTIMATED GFR IS NOT APPLICABLE FOR DIALYSIS PATIENTS. Specimen Blood - Arm, Left Performing Organization Address City/[facility]/Zipcode Phone Number [address] [address] [place] RHYTHM STRIP - SCAN (06/12/2018 3:21 PM [employer])Only the most recent of4 resultswithin the time period is included. Narrative Performed At Blood culture (06/10/2018 6:55 AM [employer])Only the most recent of2 resultswithin the time period is included. Result No growth in 5 days [facility] Specimen Blood - Arm, Left Performing Organization Address City/[facility]/Zipcode Phone Number [address] [address] CENTER CBC (hemogram only) (06/09/2018 4:26 AM [employer])Only the most recent of21 resultswithin the time period is included. WBC 10.0 3.5 - 10.5 K/L [facility] RBC 2.92 (L) 4.63 - 6.08 M/L [facility] Hemoglobin 8.5 (L) 13.7 - 17.5 GM/DL [facility] Hematocrit 26.4 (L) 40.1 - 51.0 % [facility] MCV 90.4 79.0 - 92.2 fL [facility] MCH 29.1 25.7 - 32.2 pg [facility] MCHC 32.2 (L) 32.3 - 36.5 GM/DL [facility] RDW 14.7 (H) 11.6 - 14.4 % [facility] Platelets 195 150 - 450 K/CU MM [facility] MPV 9.1 (L) 9.4 - 12.4 fL [facility] nRBC 0 0 - 0 /100 WBC [facility] Specimen Blood - Arm, Right Performing Organization Address City/[facility]ode Phone Number [address] [address] [phone] CENTER Anaerobic culture (06/08/2018 8:26 PM [employer])Only the most recent of2 resultswithin the time period is included. Result No anaerobes isolated [facility] Specimen Other - Amputation Site Performing Organization Address [facility] Centercode Phone Number [address] [address] [place] Surgically obtained culture + gram stain (06/08/2018 8:26 PM [employer])Only the most recent of3 resultswithin the time period is included. Result No growth [facility] Gram Stain Result <1+ WBCs [facility] Gram Stain Result No organisms seen [facility] Specimen Other - Amputation Site Performing Organization Address City/[facility]/Zipcode Phone Number [address] [address] CENTER SPIN/CONCENTRATION CHARGE (06/08/2018 8:26 PM [employer])Only the most recent of2 resultswithin the time period is included. Concentration charged Done [facility] Specimen Other - Amputation Site Performing Organization Address City/[facility] Centercode Phone Number [facility] [address] [place] [address] CENTER Tissue Exam (06/08/2018 8:07 PM [employer]ATING [employer])Only the most recent of5 resultswithin the time period is included. Case Report Surgical Pathology Report Case: [id number] [facility] Authorizing Provider:Arthur Oconnor MD Collected: 06/08/20182006 [facility] Ordering Location: [address] Received: 06/09/2018 0831 Service Pathologist: Salma Navarro MD Specimen:Amputation Site, right above knee amputation DIAGNOSIS A. EXTREMITY, RIGHT LOWER LEG, ABOVE KNEE AMPUTATION: [facility] - VIABLE SKIN, SOFT TISSUE AND BONE MARROW MARGINS [facility] - NON-MARGINAL TISSUE WITH GANGRENOUS NECROSIS OF SKIN AND SOFT TISSUE, ACUTE OSTEOMYELITIS AND OSTEONECROSIS - MODERATE TO SEVERE ATHEROSCLEROSIS Signing Pathologist Direct Phone Line: [phone] CPT Code(s) 15836 [facility] CLINICAL HISTORY Gangrene [facility] SPECIMEN SOURCE Right above knee amputation [facility] GROSS DESCRIPTION The specimen is received in a biohazard bag labeled with the patient's information and labeled "right above knee amputation" consisting of a right above the knee amputation with an expose femur measurin [facility] g 8 cm in length x 3.5 cm in diameter. The resection margin to heel measures 20 x 9 x cm and foot from great toe to heel measures 25 x 6 cm. All toes are present. The first and fifth digits have areas o [facility] f gangrene distally. The great toe has the largest area measuring 3.5 x 2 cm in greatest dimension. No other areas or necrosis are seen. On the medial side of the leg is a well-healed scar measuring 5.5 cm. No other distinct abnormalities are seen on the skin. The anterior and posterior tibialis vessels have no atherosclerotic changes with no thrombi. Section code: A1, skin margin en face; A2, area of scar; A3. Femoral popliteal vasculature; A4, anterior tibialis; A5, posterior tibialis vessels; A6 , bone marrow from femur and A7, cross section of great toe submitted for decal. CG/pl MICROSCOPIC DESCRIPTION Performed. [facility] Specimen Tissue - Amputation Site Performing Organization Address [facility] Centercode Phone Number [facility] [address] [place] [address] [phone] CENTER aPTT (06/08/2018 3:58 AM [employer])Only the most recent of29 resultswithin the time period is included. PTT 72.1 (H) 22.5 - 36.0 seconds [facility] Specimen Blood - Arm, Left Performing Organization Address [facility] Centercoin Phone Number [facility] [address] [place] [address] [phone] [place] PT/aPTT (06/06/2018 8:26 PM [employer])Only the most recent of3 resultswithin the time period is included. Protime 15.3 (H) 11.7 - 14.7 seconds [facility] INR 1.2 <=5.9 [facility] PTT >200.0 (HH) 22.5 - 36.0 seconds [facility] Specimen Blood - Line, Arterial Narrative Performed At RECOMMENDED COUMADIN/WARFARIN INR THERAPY [facility] RANGES STANDARD DOSE: 2.0 - 3.0 Includes: PROPHYLAXIS for venous thrombosis, systemic embolization; TREATMENT for venous thrombosis and/or pulmonary embolus. HIGH RISK: Target INR is 2.5-3.5 for patients with mechanical heart valves. Performing Organization Address [facility] Centercode Phone Number [facility] [address] [place] [address] CENTER Hemoglobin and hematocrit (06/06/2018 7:58 PM [employer])Only the most recent of4 resultswithin the time period is included. Hemoglobin 9.0 (L) 13.7 - 17.5 GM/DL [facility] Hematocrit 26.0 (L) 40.1 - 51.0 % [facility] Specimen Blood Performing Organization Address [facility] Centercode Phone Number [address] [address] [place] Sodium Na-Stat Lab (06/06/2018 6:59 PM [employer]ILATING [employer])Only the most recent of4 resultswithin the time period is included. Sodium 135 135 - 148 meq/L [facility] Specimen Blood, Arterial Performing Organization Address [facility] [place] [place] [address] CENTER Potassium (06/06/2018 6:59 PM [employer]ILATING [employer]RAFTER) Potassium 4.5Comment: Specimen 3.5 - 5.1 meq/L [facility] moderately hemolyzed [facility] Specimen Blood Performing Organization Address [facility] [place] [place] Phone Number [address] [address] [place] TRANSFUSION SERVICE REPORT - SCAN (06/06/2018 6:00 PM [employer]ATING [employer])Only the most recent of7 resultswithin the time period is included. Narrative Performed At POC ACTIVATED CLOTTING TIME (06/06/2018 4:26 PM [employer]ILATING [employer]TER)Only the most recent of7 resultswithin the time period is included. Activated Clotting Time 329Comment: TESTED AT sec [address] [address] Specimen Blood Performing Organization Address [facility] [place] [place] Phone Number [address] [address] [phone] CENTER Potassium-Stat Lab (06/06/2018 3:59 PM [employer]ILATING [employer]RAFTER)Only the most recent of4 resultswithin the time period is included. Potassium 3.7 3.6 - 5.5 meq/L [facility] Specimen Blood, Arterial Performing Organization Address [facility]coin Phone Number [address] [address] CENTER Glucose-Stat Lab (06/06/2018 3:59 PM [employer]ILATING DRAFTER)Only the most recent of4 resultswithin the time period is included. Glucose 115 (H) 70 - 110 mg/dL [facility] Specimen Blood, Arterial Performing Organization Address City/[facility] Centercode Phone Number [address] [address] CENTER HGB/HCT (H&H)-Stat Lab (06/06/2018 3:59 PM [employer]ILATING [employer]RAFTER)Only the most recent of3 resultswithin the time period is included. Hemoglobin 8.4 (L) 13.0 - 16.8 g/dL [facility] Hematocrit 25.0 (L) 40.0 - 50.0 % [facility] Specimen Blood, Arterial Performing Organization Address [facility] Centercoin Phone Number [address] [address] [place] Calcium, Ionized (06/06/2018 3:59 PM [employer]ILATING [employer]RAFTER)Only the most recent of3 resultswithin the time period is included. Calcium, Ion 1.19 1.12 - 1.27 mmol/L [facility] pH, Blood 7.37 [facility] Specimen Blood Performing Organization Address [facility] Centercoin Phone Number [address] [address] [phone] [place] Blood gas, arterial (06/06/2018 3:59 PM [employer]ILATING [employer])Only the most recent of4 resultswithin the time period is included. pH, Arterial 7.37 7.35 - 7.45 [facility] pCO2, Arterial 39 35 - 45 mmHg [facility] pO2, Arterial 210 (H) 80 - 90 mmHg [facility] O2 Sat, Arterial 99.4 (H) 96.0 - 97.0 % [facility] HCO3, Arterial 22 21 - 29 mmol/L [facility] Base Excess, Arterial -3.5 (L) -2.0 - 3.0 mmol/L [facility] Patient Temperature 35.0 C [facility] FIO2 50.0 % [facility] Specimen Blood, Arterial Performing Organization Address City/State/Zipcode Phone Number [facility] [address] [place] [address] CENTER Comprehensive metabolic panel (06/06/2018 4:39 AM [employer]ILATING [employer])Only the most recent of4 resultswithin the time period is included. Protein, Total 6.6 6.0 - 8.3 gm/dL [facility] Albumin 3.6 3.5 - 5.0 g/dL [facility] Alkaline Phosphatase 78 40 - 150 U/L [facility] Total Bilirubin 0.4 0.2 - 1.2 mg/dL [facility] Sodium 135 (L) 136 - 145 meq/L [facility] Potassium 4.0 3.5 - 5.1 meq/L [facility] Chloride 106 98 - 107 meq/L [facility] CO2 22 22 - 29 meq/L [facility] BUN 9 7 - 21 mg/dL [facility] Creatinine 1.41 (H) 0.57 - 1.25 mg/dL [facility] Glucose 107 (H) 70 - 105 mg/dL [facility] Calcium 9.2 8.4 - 10.2 mg/dL [facility] AST 82 (H) 5 - 34 U/L [facility] ALT 22 6 - 55 U/L [facility] EGFR 51Comment: ESTIMATED GFR mL/min/1.73 sq m [facility] IS NOT ACCURATE [facility] CREATININE CLEARANCE IN PREDICTING GLOMERULAR FILTRATION RATE. ESTIMATED GFR IS NOT APPLICABLE FOR DIALYSIS PATIENTS. Specimen Blood - Arm, Right Performing Organization Address [facility]/Zipcode Phone Number [address] [address] CENTER Type and screen, automated (06/05/2018 1:24 PM [employer]ATING [employer])Only the most recent of5 resultswithin the time period is included. ABO/RH AUTOMATED (BEAKER) A POSITIVE [facility] Ab Scrn NEGATIVE [facility] Specimen Blood - Hand, Right Performing Organization Address [facility] [place] [place] Phone Number [address] [address] [phone] REPORT OF PROCEDURE - ENDOSCOPY URL (05/23/2018 5:13 PM [employer]ILATING [employer]RAFTER) Narrative Performed At Lipid panel (05/18/2018 5:32 AM [employer]ILATING [employer]RAFTER)Only the most recent of2 resultswithin the time period is included. Triglycerides 65 mg/dL [facility] Cholesterol 129 mg/dL [facility] HDL 30 mg/dL [facility] LDL Calculated 86 mg/dL [facility] Specimen Blood Narrative Performed At Triglyceride Reference Range: [facility] Low Risk <150 [id number] High Risk 200-499 Very High Risk>=500 Cholesterol Reference Range: Low Risk <200 [id number] High Risk>240 HDL Cholesterol Reference Range: Low Risk >=60 High Risk <40 LDL Cholesterol Reference Range: Optimal<100 Near [id number] Very High >=190 Performing Organization Address [facility] Centercode Phone Number [address] [address] [phone] CENTER XR chest 1 view portable / bedside (05/17/2018 9:48 PM [employer])Only the most recent of3 resultswithin the time period is included. Narrative Performed At FINAL REPORT [facility] Chest, one view. HISTORY: Preoperative COMPARISON: [...] MD Report Verified Date/Time:05/17/2018 23:59:18 Reading Location: [facility] B1 [id number] Consult Reading Room Procedure Note Interface, External Ris In - 05/18/2018 12:01 AM [employer]ATING [employer] FINAL REPORT Chest, one view. HISTORY: Preoperative [...] Report Verified Date/Time: 05/17/2018 23:59:18 Reading Location: [facility] B1 [id number] Consult Reading Room Performing Organization Address City/State/Zipcode Phone Number [facility] Venous doppler legs bilateral (05/17/2018 9:15 PM [employer]ILATING DRAFTER) Ejection Fraction [facility] MKCK[facility]ON CPACS Impressions Performed At Right Impression [facility] CPACS 1. [...] PV LAB - Lower Extremities DVT Study [facility] Demographics Patient NameViet RANDALL of Study 05/17/2018 ESTEFANIA 62 Visit [id number] Male of 1955 Referring Med Chavez Number SCPR Physician Table Games Supervisor Rey [facility] Phys[facility] ROSALINDA Martinez Procedure Type of Study: Veins: Lower Extremities [...] External Ris In - 05/18/2018 5:02 PM [employer] PV LAB - Lower Extremities DVT Study Demographics Patient Name JASWINDER RANDALL Date of Study 05/17/2018 ESTEFANIA Age 62 Visit Number [id number] Gender Male Accession Number [id number] Date of 1955 Referring JOHN Chavez Room Number SCPR Physician Table Games Supervisor Rey Ortiz Interpreting Ananya Martinez, Physician Procedure [...] City/State/Zipcode Phone Number [facility] CPACS Electrocardiogram, 12-lead (05/17/2018 8:08 PM [employer])Only the most recent of3 resultswithin the time period is included. Narrative Performed At Ventricular Rate 88 BPM GE [facility] Atrial Rate 88 BPM P-R Interval 186 ms QRS Duration 90 ms Q-T Interval 366 ms QTC Calculation(Bazett) 442 ms P [place] 58 degrees R [place] 51 degrees T [place] 56 degrees Normal sinus rhythm Normal ECG No previous ECGs available Confirmed by MD TORRES JOSEPH P ([id number]) on 05/18/2018 6:38:12 AM Procedure Note Interface, External Ris In - 05/18/2018 6:38 AM HEATING AND VENTILATING DRAFTER Ventricular Rate 88 BPM Atrial Rate 88 BPM P-R Interval 186 ms QRS Duration 90 ms Q-T Interval 366 ms QTC Calculation(Bazett) 442 ms P [place] 58 degrees R [place] 51 degrees T [place] 56 degrees Normal sinus rhythm Normal ECG No previous ECGs available Confirmed by MD TORRES JOSEPH P ([id number]) on 05/18/2018 6:38:12 AM Performing Organization Address City/[facility] Phone Number GE cocone Prothrombin time/INR (05/17/2018 6:30 PM HEATING AND VENTILATING DRAFTER)Only the most recent of12 resultswithin the time period is included. Protime 13.0 11.7 - 14.7 seconds [facility] INR 1.0 <=5.9 [facility] Specimen Blood Narrative Performed At RECOMMENDED COUMADIN/WARFARIN INR THERAPY [facility] RANGES STANDARD DOSE: 2.0 - 3.0 Includes: PROPHYLAXIS for venous thrombosis, systemic embolization; TREATMENT for venous thrombosis and/or pulmonary embolus. HIGH RISK: Target INR is 2.5-3.5 for patients with mechanical heart valves. Performing Organization Address City/[facility] Phone Number [address] [address] CENTER Hepatic function panel (05/17/2018 6:08 PM HEATING AND VENTILATING DRAFTER)Only the most recent of2 resultswithin the time period is included. Protein, Total 7.1 6.0 - 8.3 gm/dL [facility] Albumin 3.9 3.5 - 5.0 g/dL [facility] Total Bilirubin 0.3 0.2 - 1.2 mg/dL [facility] Bilirubin, Direct 0.1 0.1 - 0.5 mg/dL [facility] Alkaline Phosphatase 93 40 - 150 U/L [facility] AST 16 5 - 34 U/L [facility] ALT 11 6 - 55 U/L [facility] Specimen Blood Performing Organization Address City/State/Zipcode Phone Number [facility] [address] [place] [address] CENTER VASCULAR DIAGRAM -SCAN (02/17/2018 10:50 AM CDT) Narrative Performed At CARDIAC CATH REPORT - SCAN (02/17/2018 10:50 AM CDT) Narrative Performed At IR Port-a-Cath Placement (02/16/2018 12:54 PM CDT) Narrative Performed At FINAL REPORT iMapData Right internal jugular chest port insertion History: Patient requires access for chemotherapy. Modality: Sonography and fluoroscopy. Sedation: Versed 1.5 mg and fentanyl 75 mcg given intravenously for conscious sedation.Vital signs were monitored throughout the procedure by a nurse, and remained stable. Physician intra-service time was 25 minutes. Service Counselor:Peña Zepeda MD Plating Operator:Jose Martin. Approach: Right internal jugular vein Estimated [...] needle into the right atrium. A 4 Emirati micropuncture sheath was placed. A subcutaneous tunnel [...] MD Report Verified Date/Time:02/16/2018 18:32:11 Reading Location: [place] [address] Angio Body Reading Room Procedure Note Interface, [...] stable. Physician intra-service time was 25 minutes. Service Counselor: Peña Zepeda MD Plating Operator: Jose Martin. Approach: Right internal jugular vein [...] needle into the right atrium. A 4 Emirati micropuncture sheath was placed. A subcutaneous tunnel [...] Report Verified Date/Time: 02/16/2018 18:32:11 Reading Location: [place] [address] Angio Body Reading Room Performing Organization Address City/State/Zipcode Phone Number GE RIS REPORT OF PROCEDURE - ENDOSCOPY URL (02/15/2018 1:01 PM CDT) Narrative Performed At FINE NEEDLE ASPIRATE (FNA) REQUEST (02/15/2018 11:03 AM CDT) Cytology See Separate Report [facility] Specimen Fine Needle Aspirate - Liver Performing Organization Address City/State/Zipcode Phone Number [facility] [address] [place] [address] [place] Fine Needle Aspirate by Clinician (02/15/2018 11:03 AM CDT) Case Report Medical Cytology Report Case: [id number] [facility] Authorizing Provider:Fadi Philippe MDCollected: 02/15/2018 1103 [facility] Ordering Location: [address] Received: 02/16/2018 0959 Service Pathologist: Yas Townsend Specimen:Liver, Liver mass FNA in CRR for cytology DIAGNOSIS LIVER MASS FNA BY CLINICIAN (CYTOSPINS AND CELL BLOCK OF ASPIRATE): [facility] - POSITIVE FOR MALIGNANCY, MORPHOLOGICALLY COMPATIBLE WITH RECTAL CARCINOMA PRIMARY [facility] Signing Pathologist Direct Phone Line: [phone] COMMENT Cytospins show clusters of benign appearing hepatocytes. The cell block show predominantly hepatic parenchyma with a focal attached area of atypical glands with hyperchromatic and pleomorphic nuclei. [facility] The previous case, [id number] is reviewed and shows similar features. [facility] Intradepartmental Consultation: Noy Bailey MD has reviewed the case and agrees with the findings. CPT Code(s) 71880, 01469 [facility] CLINICAL DATA (1.3 x 0.9 cm) round mass in [facility] the left lobe of the liver, [facility] recently diagnosed with rectal cancer(see [id number]) SPECIMEN SOURCE LIVER MASS FNA [facility] GROSS DESCRIPTION 27 mls in cytorich red; 4 cytospins, cell block [facility] Collected: [id number] [facility] Received: [id number] Technical component was [facility] performed at [place], Department of [facility] Pathology, [address] [place] [address], [place] [address], Professional component [facility] was performed at [place], Department of [facility] Pathology, [address] [facility], [place] [address], Specimen Fine Needle Aspirate - Liver Narrative Performed At Performing Organization Address City/State/Zipcode Phone Number [facility] [address] [place] [phone] LIMITED/LOCALIZED FOLLOW-UP (02/14/2018 10:40 AM CDT) Narrative Performed At Addendum Begins RIS REPORT STATUS:A This exam was performed according to our departmental dose optimization program which includes automated exposure control, adjustment of the mA and/or kV according to patient size and/or use of iterative reconstructive technique. Signed: Jessica Wise MD Report Verified Date/Time:02/27/2018 08:10:53 Reading Location: [facility] Diagnostic Imaging Reading Room - [facility] F1 1120 Addendum Ends FINAL REPORT History: Liver masses COMPARISON: CT dated 02/09/2018 and an ultrasound dated 02/13/2018 DISCUSSION: The hepatic lesions were unable to be previously seen under ultrasound and therefore, the patient was sent to CT for potential biopsy under CT guidance. A trains service conductor image was obtained prior to the biopsy procedure. The previously seen nodular foci within the liver are not well delineated on the trains service conductor images. Some poorly seen hypodense foci are seen towards the hepatic dome. Attempted visualization was made during real-time CT fluoroscopy. However, due to the patient's breathing as well as the small size and location of the lesions within liver, no focal lesion could be localized reliably for a safe CT guided biopsy. Signed: Jessica Wise MD Report Verified Date/Time:02/14/2018 16:38:16 Reading Location: [facility] C013Y CT Body Reading Room Procedure Note Interface, External Ris In - 02/27/2018 8:13 AM HEATING AND VENTILATING DRAFTER Addendum Begins REPORT STATUS:A This exam was performed according to our departmental dose optimization program which includes automated exposure control, adjustment of the mA and/or kV according to patient size and/or use of iterative reconstructive technique. Signed: Jessica Wise MD Report Verified Date/Time: 02/27/2018 08:10:53 Reading Location: [facility] Diagnostic Imaging Reading Room - [place] [address] Addendum Ends FINAL REPORT History: Liver masses COMPARISON: CT dated 02/09/2018 and an ultrasound dated 02/13/2018 DISCUSSION: The hepatic lesions were unable to be previously seen under ultrasound and therefore, the patient was sent to CT for potential biopsy under CT guidance. A trains service conductor image was obtained prior to the biopsy procedure. The previously seen nodular foci within the liver are not well delineated on the trains service conductor images. Some poorly seen hypodense foci are seen towards the hepatic dome. Attempted visualization was made during real-time CT fluoroscopy. However, due to the patient's breathing as well as the small size and location of the lesions within liver, no focal lesion could be localized reliably for a safe CT guided biopsy. Signed: Jessica Wise MD Report Verified Date/Time: 02/14/2018 16:38:16 Reading Location: [facility] C013 CT Body Reading Room Performing Organization Address City/State/Zipcode Phone Number iMapData US abdomen limited (02/13/2018 12:00 PM CDT) Narrative Performed At FINAL REPORT [facility] Ultrasound of abdomen, limited INDICATION: Liver mass COMPARISON: CT dated February 09, 2018 FINDINGS: Sonographic evaluation of the liver is performed in preparation for biopsy of liver lesion seen on recent CT. However, no focal lesion is identified on ultrasound and biopsy was not performed. Signed: Joanne Diaz MD Report Verified Date/Time:02/14/2018 07:47:16 Reading Location: [facility] Radiology Reading Room Procedure Note Interface, [...] Report Verified Date/Time: 02/14/2018 07:47:16 Reading Location: [facility] Radiology Reading Room Performing Organization Address City/State/Zipcode Phone Number GE RIS Venous doppler arm, left (02/11/2018 3:54 PM CDT) Ejection Fraction [facility]ART[facility] Impressions Performed At Right Impression [facility] CPACS NOT ORDRED [...] At PV LAB - Upper Extremities Veins [facility] Demographics Patient Name JASWINDER RANDALL Date of Study 02/11/2018 ESTEFANIA [id number] Age 62 Visit Number [id number] GenderMale Accession Number [id number] Date of 1955 [place] [facility] Number 1034 Physician SonographGen Bhatti InterpretingJFord Moncada MD, RVT Physician RPVI Procedure Type of Study: Veins: Upper Extremities Veins, VENOUS DOPPLER ARM, LEFT. Indications for Study:SP MIDLINE PLACEMENT/INFILTRATION and Tenderness. Patient Status:Routine. Study Location:Vascular Lab. Technical Quality:Adequate visualization. - Results were reported to:Dr. Sampson paged- no answer, Results given to ELENA Fifi @ 1548. Risk Factors History of Disease + +----+ + !Diagnosis !Date!Comments ! + +----+ + !History/Risk!!HTN, PVD, H/o CKD, Current Smoker, PAD (Fem-Pop ! !Factors:!!BPG) ! + +----+ + Procedure Note Interface, External Ris In - 02/12/2018 4:10 AM CDT PV LAB - Upper Extremities Veins Demographics Patient Name JASWINDER RANDALL Date of Study 02/11/2018 ESTEFANIA Age 62 Visit Number [id number] Gender Male Accession Number [id number] Date of 1955 Referring Adrián Inman MD Room Number 1034 Physician Table Games Supervisor Alka Bhatti Interpreting Tori Moncada MD, RVT Physician RPVI Procedure Type of Study: Veins: Upper Extremities Veins, VENOUS DOPPLER ARM, LEFT. Indications for Study:SP MIDLINE PLACEMENT/INFILTRATION and Tenderness. Patient Status:Routine. Study Location:Vascular Lab. Technical Quality:Adequate visualization. - Results were reported to:Dr. Adrián tay- no answer, Results given to RN Fifi @ 1237. Risk Factors History of Disease + +----+ [...] are measured in cm Performing Organization Address City/[facility] Phone Number [facility] CPACS Iron, TIBC, % sat. (without ferritin) (02/10/2018 5:36 AM CDT) Iron 26 (L) 40 - 160 ug/dL [facility] TIBC 274 250 - 450 ug/dL [facility] Iron % Saturation 9 (L) 20 - 55 % [facility] Specimen Blood - Arm, Right Performing Organization Address [facility] [place] [place] Phone Number [address] [address] [phone] [place] Vitamin D, 25-Hydroxy (02/10/2018 5:36 AM CDT) Vitamin D 25-Hydroxy 10.7 6.6 - 49.9 ng/mL [facility] Specimen Blood - Arm, Right Narrative Performed At [facility] Effective 02/02/2017: Reference Range Change New: 6.6-49.9 ng/mL Previous: 13.0-47.8 ng/mL Recommended Vitamin D Target Range: 30.0-40.0 ng/mL Performing Organization Address [facility] Phone Number [address] [address] CENTER Uric acid (02/10/2018 5:36 AM CDT) Uric Acid 6.2 2.6 - 7.2 mg/dL [facility] Specimen Blood - Arm, Right Performing Organization Address [facility] Phone Number [address] [address] [phone] CENTER Protein electrophoresis, serum (02/10/2018 5:36 AM CDT) Albumin Fraction 2.6 (L) 3.5 - 5.5 g/dL [facility] Alpha 1 Fraction 0.2 0.2 - 0.4 g/dL [facility] Alpha 2 Fraction 0.6 0.5 - 0.9 g/dL [facility] Beta Fraction 0.9 0.6 - 1.1 g/dL [facility] Gamma Globulin Fraction 0.7 0.7 - 1.7 g/dL [facility] Interpretation Decreased albumin, [facility] suggestive of protein [facility] loss. Pattern otherwise consistent with mild acute inflammatory response. No monoclonal bands detected. Pathologist: Lilly Harris MD [facility] (electronic signature) [facility] Protein, Total 5.0 (L) 6.0 - 8.3 gm/dL [facility] Specimen Blood - Arm, Right Performing Organization Address [facility] Phone Number [address] [address] [phone] CENTER PTH, intact (02/10/2018 5:36 AM CDT) PTH 78.6 (H) 8.5 - 72.5 pg/mL [facility] Specimen Blood - Arm, Right Performing Organization Address [facility]/Zipcode Phone Number [address] [address] CENTER Ferritin (02/10/2018 5:36 AM CDT) Ferritin 36 5 - 275 ng/mL [facility] Specimen Blood - Arm, Right Performing Organization Address [facility] Phone Number [address] [address] [phone] CENTER Carcinoembryonic Antigen (CEA) (02/10/2018 5:36 AM CDT) CEA, SERUM 2.6 0.0 - 5.0 ng/mL [facility] Specimen Blood - Arm, Right Performing Organization Address City/State/Zipcode Phone Number [facility] [address] [place] [address] abdomen/pelvis with IV contrast (02/09/2018 11:18 PM CDT) Narrative Performed At FINAL REPORT iMapData CT, CHEST, WITH CONTRAST, CT, ABDOMEN \\T\\ [...] MD Report Verified Date/Time:02/10/2018 00:28:46 Reading Location: [address] Body Reading Room Procedure Note [...] Report Verified Date/Time: 02/10/2018 00:28:46 Reading Location: [facility] B1 C013Y CT Body Reading Room Performing Organization Address City/State/Zipcode Phone Number iMapData CT chest with IV contrast (02/09/2018 11:18 PM CDT) Narrative Performed At FINAL REPORT iMapData CT, CHEST, WITH CONTRAST, CT, ABDOMEN \\T\\ [...] TELLEZ Report Verified Date/Time:02/10/2018 00:28:46 Reading Location: [facility] C013Y CT Body Reading Room Procedure Note [...] Report Verified Date/Time: 02/10/2018 00:28:46 Reading Location: [facility] C013Y CT Body Reading Room Performing Organization Address City/[facility] Phone Number GE RIS Protein, random urine (02/09/2018 5:43 PM CDT) Protein, Urine <7 0 - 14 mg/dL [facility] Specimen Urine - Urine, Voided Performing Organization Address City/[facility] Phone Number [facility] [address] [place] [address] CENTER Prepare Leuko-Red RBC (02/08/2018 11:54 PM CDT)Only the most recent of2 resultswithin the time period is included. CROSSMATCH COMPATIBLE SAFETRACE TX Unit ABO A Pos SAFETRACE TX UNIT NUMBER [id number] SAFETRACE TX Status TRANSFUSED SAFETRACE TX Blood Bank Product RED BLOOD CELLS SAFETRACE TX PRODUCT CODE [id number] SAFETRACE TX Specimen Other Performing Organization Address City/[facility] [place] Phone Number SAFETRACE TX Transfuse Leuko-Red RBC (02/08/2018 2:23 AM CDT)Only the most recent of5 resultswithin the time period is included.REPORT OF PROCEDURE - ENDOSCOPY URL ( 02/06/2018 7:31 PM CDT) Narrative Performed At Arterial doppler leg, right (02/06/2018 10:55 AM CDT) [facility] Impressions Performed At Right Impression [facility] 1. The common femoral and profunda femoral [...] + + + + + + !Prox SALES ORDER CLERK ! !28.3! ! ! + + + + + + !Mid SALES ORDER CLERK ! !43.6!8.25 ! ! + + + [...] + + + + Narrative Performed At LAB - Lower Extremity Arterial Duplex [facility] Demographics Patient Name JASWINDER RANDALL Date of Study 02/06/2018 ESTEFANIA [id number] Age 62 Visit Number [id number] GenderMale Accession Number [id number] Date of 1955 DajaRcabilio GriderRoom Number 8256 MD Jase Pedersen T InterpretingJ. Roger Moncada MD, Physician TAE [...] Study 02/06/2018 ESTEFANIA Age 62 Visit Number [id number] Gender Male Accession Number [id number] Date of 1955 Referring Sachin BensonFord Room Number 6444 Physician Jaciel MD Table Games Supervisor Neeru Gandhi T Interpreting Tori Moncada MD, [...] + + + ------+ + + !Prox SALES ORDER CLERK ! !28.3 ! ! ! + + + ------+ + + !Mid SALES ORDER CLERK ! !43.6 !8.25 ! ! + + [...] + ------+ + + Performing Organization Address City/[facility]/Zipcode Phone Number [facility] CARDIAC CATH REPORT - SCAN (01/31/2018 8:10 AM CDT) Narrative Performed At POC-Glucose meter (01/26/2018 7:14 AM CDT)Only the most recent of9 resultswithin the time period is included. POC-Glucose Meter 129 (H)Comment: TESTED AT 70 - 110 mg/dL [address] [address] Specimen Blood Performing Organization Address [facility] Phone Number [address] [address] [place] Platelet Aggregation: Function Screen (01/25/2018 7:34 AM CDT)Only the most recent of3 resultswithin the time period is included. Weak ADP 48 (L) 60 - 91 % [facility] Plt. Function Screen 40-49% indicates [facility] Interpretation moderate platelet [facility] dysfunction Pathologist: Buzz Urbano M.D. [facility] (electonic signature) [facility] Platelets 187 150 - 450 K/CU [facility] MM [facility] Specimen Blood - Arm, Right Performing Organization Address [facility] [place] Phone Number [address] [address] [phone] CENTER HIV-1 Antigen with HIV-1/2 Antibody (01/23/2018 6:34 PM CDT) HIV-1 Antigen with HIV 1&2 NON-REACTIVE Nonreactive [facility] Specimen Blood Performing Organization Address [facility] Centercode Phone Number [address] [address] CENTER Hepatitis B surface antigen (01/23/2018 6:34 PM CDT) hepatitis B Surface Ag NON-REACTIVE Nonreactive [facility] Specimen Blood Performing Organization Address City/[facility]/Zipcode Phone Number [address] [address] [place] Hemoglobin A1c (01/23/2018 6:34 PM CDT) Hemoglobin A1C 5.5 4.3 - 6.1 % [facility] Specimen Blood Performing Organization Address City/[facility] Cent[facility]ode Phone Number [address] [address] [place] Urinalysis w/ Microscopic (11/17/2017 5:39 AM CDT) Color, UA Light Yellow [facility] Clarity, UA Clear [facility] Specific Davis, UA 1.009 1.001 - 1.035 [facility] pH, UA 6.0 5.0 - 8.0 [facility] Protein, UA Negative Negative [facility] Glucose, UA Negative Negative [facility] Ketones, UA Negative Negative [facility] Bilirubin, UA Negative Negative [facility] Blood, UA Negative Negative [facility] Nitrite, UA Negative Negative [facility] Leukocytes, UA Negative Negative [facility] Urobilinogen, UA 0.2 0.2 - 1.0 mg/dL [facility] RBC, UA 1 /HPF [facility] WBC, UA <1 /HPF [facility] Specimen Source Urine, Voided [facility] Specimen Urine - Urine, Voided Performing Organization Address City/[facility]/Zipcode Phone Number [address] [address] [phone] [place] Vein Mapping Legs Bilateral (11/17/2017 5:15 AM CDT) Ejection Fraction [facility] Impressions Performed At Right Impression [facility] ECHO [facility]ART[facility] 1. There is no deep venous venous [...] PV LAB - Lower Extremities Vein Mapping [facility] Demographics Patient Name JASWINDER RANDALL Date of Study11/17/2017 [id number] Age62 Visit Number [id number] Gender Male Accession Number [id number] Date of Birth1955 [facility] [id number] Physician SonographMicaela WetzelInterpreting Tori Moncada MD, Angel PhysicianRPVI Procedure Type of Study: Veins: Lower [...] of Study 11/17/2017 Age 62 Visit Number [id number] Gender Male Accession Number [id number] Date of 1955 Referring [facility] Room Number 2C24 Physician Table Games Supervisor Jean R. Interpreting Tori Moncada MD, Angel Physician RPVI Procedure Type of Study: Veins: [...] + + ------+ + Performing Organization Address City/State/[facility] Phone Number [facility] [facility] after 06/14/2017 Insurance Payer Benefit Plan / Group Subscriber ID Type Phone Address MEDICARE MEDICARE PART A xxxxxxxxxxx Medicare Advance Directives For more information, please contact:[address] [phone] Code Status Date Activated Date Inactivated Comments Full Code 06/05/2018 12:01 PM This code status was determined by: Patient Full Code 06/05/2018 4:25 AM 06/05/2018 12:01 PM This code status was determined by: Patient Full Code 05/18/2018 6:21 PM 06/05/2018 3:44 AM This code status was determined by: Patient Full Code 05/17/2018 7:33 PM 05/18/2018 6:21 PM This code status was determined by: Patient Full Code 05/17/2018 5:36 PM 05/17/2018 7:33 PM This code status was determined by: Patient Name Relationship Healthcare Agent Relationship Phone Armando Stewart Friend Primary healthcare agent [phone] Manuel Stewart Relative First alternate healthcare agent [phone] KrisCalvin levy Friend Second alternate healthcare agent [phone]
--- OUTSIDE RECORDS SUMMARY | 2018-06-15 17:22 | XMS REPORT ---
:1955 [facility] [address] [place] [address] Care Team Providers Name Role Phone HUMZA OCONNOR Unavailable Unavailable BRANDEN DAVIS Unavailable Unavailable RACHELLE CABEZAS Unavailable Unavailable THELMA RUIZ Unavailable Unavailable Problems This patient has no known problems. Allergies, Adverse Reactions, Alerts This patient has no known allergies or adverse reactions. Medications This patient has no known medications. Results Test Description Test Time Test Comments Text Results Atomic Results Result Comments BLOOD CULTURE 2018-06-15 11:01:00 Test Item Value Reference Range Comments CULTURE (BEAKER) (test ptlw=7646) No growth in 5 days BLOOD [id number] 11:01:00 Test Item Value Reference Range Comments CULTURE (BEAKER) (test kxjn=4943) No growth in 5 days [id number] 06:57:00 Test Item Value Reference Range Comments PHOSPHORUS (BEAKER) (test zlpq=974) 3.5 mg/dL 2.3-4.7 [id number] 06:57:00 Test Item Value Reference Range Comments MAGNESIUM (BEAKER) (test dgob=781) 2.1 mg/dL 1.6-2.6 BASIC METABOLIC [id number] 06:57:00 Test Item Value Reference Range Comments SODIUM (BEAKER) (test 138 meq/L 136-145 nnrr=439) POTASSIUM (BEAKER) (test 4.3 meq/L 3.5-5.1 buij=639) CHLORIDE (BEAKER) (test 106 meq/L 98-107 qehh=542) CO2 (BEAKER) (test 23 meq/L 22-29 xjuo=859) BLOOD UREA NITROGEN 17 mg/dL 7-21 (BEAKER) (test jvif=956) CREATININE (BEAKER) (test 1.35 mg/dL 0.57-1.25 lljb=955) GLUCOSE RANDOM (BEAKER) 99 mg/dL 70-105 (test xsaq=983) CALCIUM (BEAKER) (test 9.1 mg/dL 8.4-10.2 yquh=858) EGFR (BEAKER) (test 54 mL/min/1.73 sq m ESTIMATED GFR IS NOT hdxk=9939) ACCURATE CREATININE CLEARANCE IN PREDICTING GLOMERULAR FILTRATION RATE. ESTIMATED GFR IS NOT APPLICABLE FOR DIALYSIS PATIENTS. CBC W/PLT COUNT & AUTO [id number] 06:23:00 Test Item Value Reference Range Comments WHITE BLOOD CELL COUNT (BEAKER) (test wlye=841) 6.0 K/ L 3.5-10.5 RED BLOOD CELL COUNT (BEAKER) (test yikd=286) 3.20 M/ L 4.63-6.08 HEMOGLOBIN (BEAKER) (test szbm=819) 9.1 GM/DL 13.7-17.5 HEMATOCRIT (BEAKER) (test incy=126) 29.3 % 40.1-51.0 MEAN CORPUSCULAR VOLUME (BEAKER) (test nyxl=210) 91.6 fL 79.0-92.2 MEAN CORPUSCULAR HEMOGLOBIN (BEAKER) (test 28.4 pg 25.7-32.2 urqx=272) MEAN CORPUSCULAR HEMOGLOBIN CONC (BEAKER) (test 31.1 GM/DL 32.3-36.5 pgqq=510) RED CELL DISTRIBUTION WIDTH (BEAKER) (test 14.7 % 11.6-14.4 fujq=892) PLATELET COUNT (BEAKER) (test zqqb=980) 300 K/CU MM 150-450 MEAN PLATELET VOLUME (BEAKER) (test puab=163) 9.5 fL 9.4-12.4 NUCLEATED RED BLOOD CELLS (BEAKER) (test 0 /100 WBC 0-0 xzjh=147) NEUTROPHILS RELATIVE PERCENT (BEAKER) (test 55 % ccjr=172) LYMPHOCYTES RELATIVE PERCENT (BEAKER) (test 24 % cstd=666) MONOCYTES RELATIVE PERCENT (BEAKER) (test 16 % vqvs=334) EOSINOPHILS RELATIVE PERCENT (BEAKER) (test 4 % rezw=227) BASOPHILS RELATIVE PERCENT (BEAKER) (test 1 % lbws=126) NEUTROPHILS ABSOLUTE COUNT (BEAKER) (test 3.34 K/ L 1.78-5.38 mnmc=758) LYMPHOCYTES ABSOLUTE COUNT (BEAKER) (test 1.43 K/ L 1.32-3.57 fhra=259) MONOCYTES ABSOLUTE COUNT (BEAKER) (test 0.94 K/ L 0.30-0.82 terj=676) EOSINOPHILS ABSOLUTE COUNT (BEAKER) (test 0.23 K/ L 0.04-0.54 lzxr=771) BASOPHILS ABSOLUTE COUNT (BEAKER) (test 0.06 K/ L 0.01-0.08 nupu=648) IMMATURE GRANULOCYTES-RELATIVE PERCENT (BEAKER) 1 % 0-1 (test zxzc=8038) [id number] 05:59:00 Test Item Value Reference Range Comments PHOSPHORUS (BEAKER) (test padk=939) 3.1 mg/dL 2.3-4.7 [id number] 05:59:00 Test Item Value Reference Range Comments MAGNESIUM (BEAKER) (test ajjt=562) 2.1 mg/dL 1.6-2.6 BASIC METABOLIC [id number] 05:59:00 Test Item Value Reference Range Comments SODIUM (BEAKER) (test 136 meq/L 136-145 ddvm=504) POTASSIUM (BEAKER) (test 4.2 meq/L 3.5-5.1 diyx=618) CHLORIDE (BEAKER) (test 104 meq/L 98-107 qfnu=692) CO2 (BEAKER) (test 22 meq/L 22-29 unrl=092) BLOOD UREA NITROGEN 16 mg/dL 7-21 (BEAKER) (test gniu=496) CREATININE (BEAKER) (test 1.29 mg/dL 0.57-1.25 ineh=949) GLUCOSE RANDOM (BEAKER) 128 mg/dL 70-105 (test tblx=958) CALCIUM (BEAKER) (test 8.5 mg/dL 8.4-10.2 chti=136) EGFR (BEAKER) (test 56 mL/min/1.73 sq m ESTIMATED GFR IS NOT jdup=3692) ACCURATE CREATININE CLEARANCE IN PREDICTING GLOMERULAR FILTRATION RATE. ESTIMATED GFR IS NOT APPLICABLE FOR DIALYSIS PATIENTS. CBC W/PLT COUNT & AUTO [id number] 05:46:00 Test Item Value Reference Range Comments WHITE BLOOD CELL COUNT (BEAKER) (test jvzg=750) 5.8 K/ L 3.5-10.5 RED BLOOD CELL COUNT (BEAKER) (test itbp=529) 3.01 M/ L 4.63-6.08 HEMOGLOBIN (BEAKER) (test uklf=520) 8.5 GM/DL 13.7-17.5 HEMATOCRIT (BEAKER) (test lbjw=704) 27.7 % 40.1-51.0 MEAN CORPUSCULAR VOLUME (BEAKER) (test eylb=094) 92.0 fL 79.0-92.2 MEAN CORPUSCULAR HEMOGLOBIN (BEAKER) (test 28.2 pg 25.7-32.2 ccjf=511) MEAN CORPUSCULAR HEMOGLOBIN CONC (BEAKER) (test 30.7 GM/DL 32.3-36.5 ncjv=077) RED CELL DISTRIBUTION WIDTH (BEAKER) (test 14.8 % 11.6-14.4 cqso=371) PLATELET COUNT (BEAKER) (test oshz=310) 273 K/CU MM 150-450 MEAN PLATELET VOLUME (BEAKER) (test vptu=369) 9.6 fL 9.4-12.4 NUCLEATED RED BLOOD CELLS (BEAKER) (test 0 /100 WBC 0-0 hufn=923) NEUTROPHILS RELATIVE PERCENT (BEAKER) (test 54 % bahq=780) LYMPHOCYTES RELATIVE PERCENT (BEAKER) (test 27 % zvdj=174) MONOCYTES RELATIVE PERCENT (BEAKER) (test 13 % jlei=619) EOSINOPHILS RELATIVE PERCENT (BEAKER) (test 5 % hafj=546) BASOPHILS RELATIVE PERCENT (BEAKER) (test 1 % fviy=821) NEUTROPHILS ABSOLUTE COUNT (BEAKER) (test 3.13 K/ L 1.78-5.38 dtgb=423) LYMPHOCYTES ABSOLUTE COUNT (BEAKER) (test 1.57 K/ L 1.32-3.57 sxrz=724) MONOCYTES ABSOLUTE COUNT (BEAKER) (test 0.77 K/ L 0.30-0.82 ofmu=261) EOSINOPHILS ABSOLUTE COUNT (BEAKER) (test 0.26 K/ L 0.04-0.54 zdob=494) BASOPHILS ABSOLUTE COUNT (BEAKER) (test 0.05 K/ L 0.01-0.08 oubr=716) IMMATURE GRANULOCYTES-RELATIVE PERCENT (BEAKER) 1 % 0-1 (test fqnd=4900) TISSUE [id number] 09:24:00Surgical Pathology Report Case: [id number] Authorizing Provider: Humza Oconnor MD Collected: 06/08/20182006 Ordering Location: [address] Received: 06/09/2018 0831 Service Pathologist: Salma Navarro MD Specimen: Amputation Site, right above knee amputation A. EXTREMITY, RIGHT LOWER LEG , ABOVE KNEE AMPUTATION: - VIABLE SKIN, SOFT TISSUE AND BONE MARROW MARGINS - NON-MARGINAL TISSUE WITH GANGRENOUS NECROSIS OF SKIN AND SOFT TISSUE, ACUTE OSTEOMYELITIS AND OSTEONECROSIS - MODERATE TO SEVERE ATHEROSCLEROSIS Signing Pathologist Direct Phone Line: [phone] signed by Salma Navarro MD on 06/13/2018 at 9:24 [id number] above knee amputationThe specimen is received in a biohazard bag labeled with the patient's information and labeled "right above knee amputation" consisting of a right above the knee amputation with an expose femur measuring 8 cm in length x 3.5 cm in diameter. The resection margin to heel measures 20 x 9x cm and foot from great toe to heel measures 25 x 6 cm. All toes are present. The first and fifth digits have areas of gangrene distally. The great toe has the [...] no thrombi. Section code: A1, skin margin enface; A2, area of scar; A3. Femoral popliteal vasculature; A4, anterior tibialis; A5, posterior tibialis vessels; A6, bone marrow from femur and A7, cross section of great toe submitted for decal. CG/pl Performed.ANAEROBIC [id number] 04: 53:00 Test Item Value Reference Range Comments CULTURE (BEAKER) (test ykwg=5708) No anaerobes isolated ANAEROBIC [id number] 04:36:00 Test Item Value Reference Range Comments CULTURE (BEAKER) (test xwjm=0674) No anaerobes isolated [id number] 04:23:00 Test Item Value Reference Range Comments MAGNESIUM (BEAKER) (test 2.2 mg/dL 1.6-2.6 Specimen slightly hemolyzed aipj=261) [id number] 04:23:00 Test Item Value Reference Range Comments PHOSPHORUS (BEAKER) (test 3.6 mg/dL 2.3-4.7 Specimen slightly hemolyzed ievt=772) BASIC METABOLIC [id number] 04:23:00 Test Item Value Reference Range Comments SODIUM (BEAKER) (test 138 meq/L 136-145 azes=634) POTASSIUM (BEAKER) (test 4.3 meq/L 3.5-5.1 Specimen slightly jhul=572) hemolyzed CHLORIDE (BEAKER) (test 105 meq/L 98-107 hcml=864) CO2 (BEAKER) (test 25 meq/L 22-29 nard=322) BLOOD UREA NITROGEN 14 mg/dL 7-21 (BEAKER) (test agqd=790) CREATININE (BEAKER) (test 1.43 mg/dL 0.57-1.25 Specimen slightly syrj=029) hemolyzed GLUCOSE RANDOM (BEAKER) 113 mg/dL 70-105 (test keii=012) CALCIUM (BEAKER) (test 8.9 mg/dL 8.4-10.2 imzx=314) EGFR (BEAKER) (test 50 mL/min/1.73 sq m ESTIMATED GFR IS NOT ixat=3722) ACCURATE CREATININE CLEARANCE IN PREDICTING GLOMERULAR FILTRATION RATE. ESTIMATED GFR IS NOT APPLICABLE FOR DIALYSIS PATIENTS. CBC W/PLT COUNT & AUTO [id number] 04:18:00 Test Item Value Reference Range Comments WHITE BLOOD CELL COUNT (BEAKER) (test ttmq=249) 6.3 K/ L 3.5-10.5 RED BLOOD CELL COUNT (BEAKER) (test pfmc=723) 2.96 M/ L 4.63-6.08 HEMOGLOBIN (BEAKER) (test cfjd=748) 8.5 GM/DL 13.7-17.5 HEMATOCRIT (BEAKER) (test dbas=709) 26.9 % 40.1-51.0 MEAN CORPUSCULAR VOLUME (BEAKER) (test rrkx=365) 90.9 fL 79.0-92.2 MEAN CORPUSCULAR HEMOGLOBIN (BEAKER) (test 28.7 pg 25.7-32.2 dzny=558) MEAN CORPUSCULAR HEMOGLOBIN CONC (BEAKER) (test 31.6 GM/DL 32.3-36.5 kbae=161) RED CELL DISTRIBUTION WIDTH (BEAKER) (test 14.6 % 11.6-14.4 mxwg=183) PLATELET COUNT (BEAKER) (test wsxw=715) 260 K/CU MM 150-450 MEAN PLATELET VOLUME (BEAKER) (test uppj=596) 9.7 fL 9.4-12.4 NUCLEATED RED BLOOD CELLS (BEAKER) (test 0 /100 WBC 0-0 cbbw=709) NEUTROPHILS RELATIVE PERCENT (BEAKER) (test 50 % rwte=200) LYMPHOCYTES RELATIVE PERCENT (BEAKER) (test 30 % tezn=041) MONOCYTES RELATIVE PERCENT (BEAKER) (test 14 % zlon=116) EOSINOPHILS RELATIVE PERCENT (BEAKER) (test 5 % jljp=004) BASOPHILS RELATIVE PERCENT (BEAKER) (test 1 % vbcm=337) NEUTROPHILS ABSOLUTE COUNT (BEAKER) (test 3.15 K/ L 1.78-5.38 fdiy=827) LYMPHOCYTES ABSOLUTE COUNT (BEAKER) (test 1.88 K/ L 1.32-3.57 jkop=096) MONOCYTES ABSOLUTE COUNT (BEAKER) (test 0.86 K/ L 0.30-0.82 rhks=209) EOSINOPHILS ABSOLUTE COUNT (BEAKER) (test 0.30 K/ L 0.04-0.54 xtnj=974) BASOPHILS ABSOLUTE COUNT (BEAKER) (test 0.04 K/ L 0.01-0.08 gznp=830) IMMATURE GRANULOCYTES-RELATIVE PERCENT (BEAKER) 0 % 0-1 (test qcgq=0254) [id number] 04:44:00 Test Item Value Reference Range Comments PHOSPHORUS (BEAKER) (test imlw=581) 3.2 mg/dL 2.3-4.7 BASIC METABOLIC [id number] 04:44:00 Test Item Value Reference Range Comments SODIUM (BEAKER) (test 140 meq/L 136-145 zgsf=489) POTASSIUM (BEAKER) (test 4.4 meq/L 3.5-5.1 zgmi=131) CHLORIDE (BEAKER) (test 106 meq/L 98-107 ptef=303) CO2 (BEAKER) (test 28 meq/L 22-29 keoj=310) BLOOD UREA NITROGEN 11 mg/dL 7-21 (BEAKER) (test bhsx=010) CREATININE (BEAKER) (test 1.25 mg/dL 0.57-1.25 kmjh=544) GLUCOSE RANDOM (BEAKER) 109 mg/dL 70-105 (test pkuv=617) CALCIUM (BEAKER) (test 8.9 mg/dL 8.4-10.2 fvda=878) EGFR (BEAKER) (test 59 mL/min/1.73 sq m ESTIMATED GFR IS NOT vhph=6731) ACCURATE CREATININE CLEARANCE IN PREDICTING GLOMERULAR FILTRATION RATE. ESTIMATED GFR IS NOT APPLICABLE FOR DIALYSIS PATIENTS. [id number] 04:39:00 Test Item Value Reference Range Comments MAGNESIUM (BEAKER) (test hcpv=278) 2.0 mg/dL 1.6-2.6 CBC W/PLT COUNT & AUTO [id number] 04:31:00 Test Item Value Reference Range Comments WHITE BLOOD CELL COUNT (BEAKER) (test wqri=020) 6.7 K/ L 3.5-10.5 RED BLOOD CELL COUNT (BEAKER) (test iwid=767) 3.05 M/ L 4.63-6.08 HEMOGLOBIN (BEAKER) (test akwe=967) 8.8 GM/DL 13.7-17.5 HEMATOCRIT (BEAKER) (test xkrf=697) 28.1 % 40.1-51.0 MEAN CORPUSCULAR VOLUME (BEAKER) (test ykpu=971) 92.1 fL 79.0-92.2 MEAN CORPUSCULAR HEMOGLOBIN (BEAKER) (test 28.9 pg 25.7-32.2 scpv=984) MEAN CORPUSCULAR HEMOGLOBIN CONC (BEAKER) (test 31.3 GM/DL 32.3-36.5 lziu=504) RED CELL DISTRIBUTION WIDTH (BEAKER) (test 14.6 % 11.6-14.4 rmxp=059) PLATELET COUNT (BEAKER) (test hoew=729) 217 K/CU MM 150-450 MEAN PLATELET VOLUME (BEAKER) (test lmfu=610) 9.5 fL 9.4-12.4 NUCLEATED RED BLOOD CELLS (BEAKER) (test 0 /100 WBC 0-0 myat=389) NEUTROPHILS RELATIVE PERCENT (BEAKER) (test 57 % kjvx=131) LYMPHOCYTES RELATIVE PERCENT (BEAKER) (test 23 % mrym=034) MONOCYTES RELATIVE PERCENT (BEAKER) (test 13 % dydo=669) EOSINOPHILS RELATIVE PERCENT (BEAKER) (test 6 % imua=075) BASOPHILS RELATIVE PERCENT (BEAKER) (test 1 % hgmj=799) NEUTROPHILS ABSOLUTE COUNT (BEAKER) (test 3.82 K/ L 1.78-5.38 cmvr=412) LYMPHOCYTES ABSOLUTE COUNT (BEAKER) (test 1.55 K/ L 1.32-3.57 ymvo=957) MONOCYTES ABSOLUTE COUNT (BEAKER) (test 0.87 K/ L 0.30-0.82 snko=144) EOSINOPHILS ABSOLUTE COUNT (BEAKER) (test 0.38 K/ L 0.04-0.54 fguv=993) BASOPHILS ABSOLUTE COUNT (BEAKER) (test 0.03 K/ L 0.01-0.08 heku=394) IMMATURE GRANULOCYTES-RELATIVE PERCENT (BEAKER) 0 % 0-1 (test wkak=4851) SURGICALLY OBTAINED CULTURE + GRAM [id number] 08:55:00 Test Item Value Reference Range Comments CULTURE (BEAKER) (test ozsb=9223) No growth GRAM STAIN RESULT (BEAKER) (test <1+ WBCs thdt=9801) GRAM STAIN RESULT (BEAKER) (test No organisms seen maiy=51693) SURGICALLY OBTAINED CULTURE + GRAM [id number] 08:55:00 Test Item Value Reference Range Comments CULTURE (BEAKER) (test sqce=5894) No growth GRAM STAIN RESULT (BEAKER) (test <1+ WBCs gbmc=4635) GRAM STAIN RESULT (BEAKER) (test No organisms seen hevc=19276) SURGICALLY OBTAINED CULTURE + GRAM [id number] 08:54:00 Test Item Value Reference Range Comments CULTURE (BEAKER) (test cmgr=1105) No growth GRAM STAIN RESULT (BEAKER) (test <1+ WBCs whmr=0519) GRAM STAIN RESULT (BEAKER) (test No organisms seen ohaq=71776) [id number] 07:09:00 Test Item Value Reference Range Comments PHOSPHORUS (BEAKER) (test rhuf=666) 3.1 mg/dL 2.3-4.7 [id number] 07:09:00 Test Item Value Reference Range Comments MAGNESIUM (BEAKER) (test vdoa=434) 1.9 mg/dL 1.6-2.6 BASIC METABOLIC [id number] 07:09:00 Test Item Value Reference Range Comments SODIUM (BEAKER) (test 136 meq/L 136-145 cauu=047) POTASSIUM (BEAKER) (test 4.3 meq/L 3.5-5.1 kicj=868) CHLORIDE (BEAKER) (test 104 meq/L 98-107 nlsf=156) CO2 (BEAKER) (test 24 meq/L 22-29 giii=673) BLOOD UREA NITROGEN 10 mg/dL 7-21 (BEAKER) (test cack=147) CREATININE (BEAKER) (test 1.34 mg/dL 0.57-1.25 nweg=864) GLUCOSE RANDOM (BEAKER) 116 mg/dL 70-105 (test kdxl=654) CALCIUM (BEAKER) (test 8.5 mg/dL 8.4-10.2 mmjs=169) EGFR (BEAKER) (test 54 mL/min/1.73 sq m ESTIMATED GFR IS NOT vfxi=4192) ACCURATE CREATININE CLEARANCE IN PREDICTING GLOMERULAR FILTRATION RATE. ESTIMATED GFR IS NOT APPLICABLE FOR DIALYSIS PATIENTS. CBC W/PLT COUNT & AUTO [id number] 06:43:00 Test Item Value Reference Range Comments WHITE BLOOD CELL COUNT (BEAKER) (test onuw=214) 7.2 K/ L 3.5-10.5 RED BLOOD CELL COUNT (BEAKER) (test mzbl=913) 3.02 M/ L 4.63-6.08 HEMOGLOBIN (BEAKER) (test myak=372) 8.6 GM/DL 13.7-17.5 HEMATOCRIT (BEAKER) (test hqrr=078) 27.5 % 40.1-51.0 MEAN CORPUSCULAR VOLUME (BEAKER) (test xoph=887) 91.1 fL 79.0-92.2 MEAN CORPUSCULAR HEMOGLOBIN (BEAKER) (test 28.5 pg 25.7-32.2 mpcr=654) MEAN CORPUSCULAR HEMOGLOBIN CONC (BEAKER) (test 31.3 GM/DL 32.3-36.5 scem=858) RED CELL DISTRIBUTION WIDTH (BEAKER) (test 14.6 % 11.6-14.4 vene=940) PLATELET COUNT (BEAKER) (test gsqw=121) 197 K/CU MM 150-450 MEAN PLATELET VOLUME (BEAKER) (test hqwv=841) 9.8 fL 9.4-12.4 NUCLEATED RED BLOOD CELLS (BEAKER) (test 0 /100 WBC 0-0 ynkt=435) NEUTROPHILS RELATIVE PERCENT (BEAKER) (test 65 % kjgu=852) LYMPHOCYTES RELATIVE PERCENT (BEAKER) (test 16 % qlai=348) MONOCYTES RELATIVE PERCENT (BEAKER) (test 14 % dkpi=781) EOSINOPHILS RELATIVE PERCENT (BEAKER) (test 5 % ybeh=843) BASOPHILS RELATIVE PERCENT (BEAKER) (test 0 % wzsi=490) NEUTROPHILS ABSOLUTE COUNT (BEAKER) (test 4.67 K/ L 1.78-5.38 vrxj=419) LYMPHOCYTES ABSOLUTE COUNT (BEAKER) (test 1.16 K/ L 1.32-3.57 pdce=875) MONOCYTES ABSOLUTE COUNT (BEAKER) (test 0.97 K/ L 0.30-0.82 bszw=061) EOSINOPHILS ABSOLUTE COUNT (BEAKER) (test 0.34 K/ L 0.04-0.54 qjxv=092) BASOPHILS ABSOLUTE COUNT (BEAKER) (test 0.02 K/ L 0.01-0.08 kdvg=660) IMMATURE GRANULOCYTES-RELATIVE PERCENT (BEAKER) 0 % 0-1 (test jsnx=8458) SPIN/CONCENTRATION [id number] 14:21:00 Test Item Value Reference Range Comments CONCENTRATION CHARGED (BEAKER) (test wwyp=8330) Done SPIN/CONCENTRATION [id number] 14:21:00 Test Item Value Reference Range Comments CONCENTRATION CHARGED (BEAKER) (test txso=6222) Done [id number] 07:26:00 Test Item Value Reference Range Comments PHOSPHORUS (BEAKER) (test ofwx=872) 2.0 mg/dL 2.3-4.7 [id number] 07:26:00 Test Item Value Reference Range Comments MAGNESIUM (BEAKER) (test yzks=000) 2.1 mg/dL 1.6-2.6 BASIC METABOLIC [id number] 07:26:00 Test Item Value Reference Range Comments SODIUM (BEAKER) (test 137 meq/L 136-145 cgsq=403) POTASSIUM (BEAKER) (test 4.1 meq/L 3.5-5.1 ujor=763) CHLORIDE (BEAKER) (test 106 meq/L 98-107 ywdx=744) CO2 (BEAKER) (test 25 meq/L 22-29 trws=718) BLOOD UREA NITROGEN 8 mg/dL 7-21 (BEAKER) (test tgdb=976) CREATININE (BEAKER) (test 1.24 mg/dL 0.57-1.25 vuki=320) GLUCOSE RANDOM (BEAKER) 113 mg/dL 70-105 (test hpft=239) CALCIUM (BEAKER) (test 8.6 mg/dL 8.4-10.2 lffw=064) EGFR (BEAKER) (test 59 mL/min/1.73 sq m ESTIMATED GFR IS NOT jldp=9069) ACCURATE CREATININE CLEARANCE IN PREDICTING GLOMERULAR FILTRATION RATE. ESTIMATED GFR IS NOT APPLICABLE FOR DIALYSIS PATIENTS. CBC W/PLT COUNT & AUTO [id number] 07:10:00 Test Item Value Reference Range Comments WHITE BLOOD CELL COUNT (BEAKER) (test xehw=586) 7.3 K/ L 3.5-10.5 RED BLOOD CELL COUNT (BEAKER) (test kjvd=029) 3.05 M/ L 4.63-6.08 HEMOGLOBIN (BEAKER) (test lany=907) 8.9 GM/DL 13.7-17.5 HEMATOCRIT (BEAKER) (test qjjc=953) 28.1 % 40.1-51.0 MEAN CORPUSCULAR VOLUME (BEAKER) (test oenu=092) 92.1 fL 79.0-92.2 MEAN CORPUSCULAR HEMOGLOBIN (BEAKER) (test 29.2 pg 25.7-32.2 rmss=702) MEAN CORPUSCULAR HEMOGLOBIN CONC (BEAKER) (test 31.7 GM/DL 32.3-36.5 jctc=434) RED CELL DISTRIBUTION WIDTH (BEAKER) (test 14.6 % 11.6-14.4 ynma=887) PLATELET COUNT (BEAKER) (test ckkd=025) 170 K/CU MM 150-450 MEAN PLATELET VOLUME (BEAKER) (test btvl=361) 9.3 fL 9.4-12.4 NUCLEATED RED BLOOD CELLS (BEAKER) (test 0 /100 WBC 0-0 kaqd=490) NEUTROPHILS RELATIVE PERCENT (BEAKER) (test 68 % hfmd=736) LYMPHOCYTES RELATIVE PERCENT (BEAKER) (test 14 % qrki=856) MONOCYTES RELATIVE PERCENT (BEAKER) (test 15 % asez=674) EOSINOPHILS RELATIVE PERCENT (BEAKER) (test 3 % nopv=322) BASOPHILS RELATIVE PERCENT (BEAKER) (test 0 % ntmt=222) NEUTROPHILS ABSOLUTE COUNT (BEAKER) (test 4.95 K/ L 1.78-5.38 acaw=113) LYMPHOCYTES ABSOLUTE COUNT (BEAKER) (test 1.01 K/ L 1.32-3.57 fuzk=949) MONOCYTES ABSOLUTE COUNT (BEAKER) (test 1.05 K/ L 0.30-0.82 igiq=075) EOSINOPHILS ABSOLUTE COUNT (BEAKER) (test 0.20 K/ L 0.04-0.54 fmfq=193) BASOPHILS ABSOLUTE COUNT (BEAKER) (test 0.02 K/ L 0.01-0.08 otwd=554) IMMATURE GRANULOCYTES-RELATIVE PERCENT (BEAKER) 0 % 0-1 (test afoy=1551) CBC (HEMOGRAM ONLY)2018-06-09 05:07:00 Test Item Value Reference Range Comments WHITE BLOOD CELL COUNT (BEAKER) (test tkgd=660) 10.0 K/ L 3.5-10.5 RED BLOOD CELL COUNT (BEAKER) (test ysqr=958) 2.92 M/ L 4.63-6.08 HEMOGLOBIN (BEAKER) (test ehfp=909) 8.5 GM/DL 13.7-17.5 HEMATOCRIT (BEAKER) (test plcr=450) 26.4 % 40.1-51.0 MEAN CORPUSCULAR VOLUME (BEAKER) (test ytwf=825) 90.4 fL 79.0-92.2 MEAN CORPUSCULAR HEMOGLOBIN (BEAKER) (test 29.1 pg 25.7-32.2 yxrm=665) MEAN CORPUSCULAR HEMOGLOBIN CONC (BEAKER) (test 32.2 GM/DL 32.3-36.5 mbuf=301) RED CELL DISTRIBUTION WIDTH (BEAKER) (test 14.7 % 11.6-14.4 saly=345) PLATELET COUNT (BEAKER) (test vdfg=059) 195 K/CU MM 150-450 MEAN PLATELET VOLUME (BEAKER) (test ypbo=033) 9.1 fL 9.4-12.4 NUCLEATED RED BLOOD CELLS (BEAKER) (test 0 /100 WBC 0-0 dfrf=433) [id number] 04:29:00 Test Item Value Reference Range Comments MAGNESIUM (BEAKER) (test nezc=492) 1.8 mg/dL 1.6-2.6 BASIC METABOLIC [id number] 04:29:00 Test Item Value Reference Range Comments SODIUM (BEAKER) (test 134 meq/L 136-145 donk=030) POTASSIUM (BEAKER) (test 3.8 meq/L 3.5-5.1 bcvz=710) CHLORIDE (BEAKER) (test 106 meq/L 98-107 tbiw=303) CO2 (BEAKER) (test 21 meq/L 22-29 eazh=220) BLOOD UREA NITROGEN 9 mg/dL 7-21 (BEAKER) (test avpo=095) CREATININE (BEAKER) (test 1.43 mg/dL 0.57-1.25 zweb=135) GLUCOSE RANDOM (BEAKER) 107 mg/dL 70-105 (test mcfh=429) CALCIUM (BEAKER) (test 8.3 mg/dL 8.4-10.2 upev=534) EGFR (BEAKER) (test 50 mL/min/1.73 sq m ESTIMATED GFR IS NOT ooeu=6831) ACCURATE CREATININE CLEARANCE IN PREDICTING GLOMERULAR FILTRATION RATE. ESTIMATED GFR IS NOT APPLICABLE FOR DIALYSIS PATIENTS. [id number] 04:17:00 Test Item Value Reference Range Comments PARTIAL THROMBOPLASTIN TIME (BEAKER) (test 72.1 seconds 22.5-36.0 ncmc=850) CBC (HEMOGRAM ONLY)2018-06-08 04:09:00 Test Item Value Reference Range Comments WHITE BLOOD CELL COUNT (BEAKER) (test xsww=607) 8.0 K/ L 3.5-10.5 RED BLOOD CELL COUNT (BEAKER) (test fuga=491) 2.88 M/ L 4.63-6.08 HEMOGLOBIN (BEAKER) (test qyja=861) 8.6 GM/DL 13.7-17.5 HEMATOCRIT (BEAKER) (test doen=865) 26.1 % 40.1-51.0 MEAN CORPUSCULAR VOLUME (BEAKER) (test barg=685) 90.6 fL 79.0-92.2 MEAN CORPUSCULAR HEMOGLOBIN (BEAKER) (test 29.9 pg 25.7-32.2 dzej=990) MEAN CORPUSCULAR HEMOGLOBIN CONC (BEAKER) (test 33.0 GM/DL 32.3-36.5 llhf=287) RED CELL DISTRIBUTION WIDTH (BEAKER) (test 14.6 % 11.6-14.4 khge=282) PLATELET COUNT (BEAKER) (test kfds=723) 198 K/CU MM 150-450 MEAN PLATELET VOLUME (BEAKER) (test wibw=682) 9.0 fL 9.4-12.4 NUCLEATED RED BLOOD CELLS (BEAKER) (test 0 /100 WBC 0-0 ljgy=747) [id number] 21:23:00 Test Item Value Reference Range Comments PARTIAL THROMBOPLASTIN TIME (BEAKER) (test 44.9 seconds 22.5-36.0 jsby=580) [id number] 10:51:00 Test Item Value Reference Range Comments PARTIAL THROMBOPLASTIN TIME (BEAKER) (test 22.3 seconds 22.5-36.0 kahd=803) [id number] 02:12:00 Test Item Value Reference Range Comments PARTIAL THROMBOPLASTIN TIME (BEAKER) (test 23.9 seconds 22.5-36.0 zdjp=522) [id number] 02:11:00 Test Item Value Reference Range Comments MAGNESIUM (BEAKER) (test 2.0 mg/dL 1.6-2.6 Specimen slightly hemolyzed cwcv=544) BASIC METABOLIC [id number] 02:11:00 Test Item Value Reference Range Comments SODIUM (BEAKER) (test 136 meq/L 136-145 fqre=418) POTASSIUM (BEAKER) (test 4.2 meq/L 3.5-5.1 Specimen slightly zxvo=690) hemolyzed CHLORIDE (BEAKER) (test 105 meq/L 98-107 ybvz=496) CO2 (BEAKER) (test 22 meq/L 22-29 vtle=358) BLOOD UREA NITROGEN 8 mg/dL 7-21 (BEAKER) (test ggiw=624) CREATININE (BEAKER) (test 1.33 mg/dL 0.57-1.25 Specimen slightly tvdy=920) hemolyzed GLUCOSE RANDOM (BEAKER) 98 mg/dL 70-105 (test tcdw=438) CALCIUM (BEAKER) (test 9.2 mg/dL 8.4-10.2 qwsd=113) EGFR (BEAKER) (test 54 mL/min/1.73 sq m ESTIMATED GFR IS NOT oaxn=7610) ACCURATE CREATININE CLEARANCE IN PREDICTING GLOMERULAR FILTRATION RATE. ESTIMATED GFR IS NOT APPLICABLE FOR DIALYSIS PATIENTS. CBC (HEMOGRAM ONLY)2018-06-07 01:58:00 Test Item Value Reference Range Comments WHITE BLOOD CELL COUNT (BEAKER) (test jdyi=550) 11.3 K/ L 3.5-10.5 RED BLOOD CELL COUNT (BEAKER) (test vqiu=029) 3.63 M/ L 4.63-6.08 HEMOGLOBIN (BEAKER) (test hbsr=318) 10.7 GM/DL 13.7-17.5 HEMATOCRIT (BEAKER) (test qxve=466) 33.0 % 40.1-51.0 MEAN CORPUSCULAR VOLUME (BEAKER) (test ayui=019) 90.9 fL 79.0-92.2 MEAN CORPUSCULAR HEMOGLOBIN (BEAKER) (test 29.5 pg 25.7-32.2 zpza=325) MEAN CORPUSCULAR HEMOGLOBIN CONC (BEAKER) (test 32.4 GM/DL 32.3-36.5 bgql=010) RED CELL DISTRIBUTION WIDTH (BEAKER) (test 14.5 % 11.6-14.4 zjae=949) PLATELET COUNT (BEAKER) (test esdc=381) 253 K/CU MM 150-450 MEAN PLATELET VOLUME (BEAKER) (test dnle=115) 8.6 fL 9.4-12.4 NUCLEATED RED BLOOD CELLS (BEAKER) (test 0 /100 WBC 0-0 zswa=485) [id number] 21:17:00 Test Item Value Reference Range Comments PROTIME (BEAKER) (test gsmp=507) 15.3 seconds 11.7-14.7 INR (BEAKER) (test xavl=952) 1.2 <=5.9 PARTIAL THROMBOPLASTIN TIME (BEAKER) (test > seconds 22.5-36.0 sfvw=433) RECOMMENDED COUMADIN/WARFARIN INR THERAPY RANGESSTANDARD DOSE: 2.0 - 3.0 Includes: PROPHYLAXIS forvenous thrombosis, systemic embolization; TREATMENT for venous thrombosis and/or pulmonary embolus.HIGH RISK: Target INR is 2.5-3.5 for patients with mechanical heart valves.HEMOGLOBIN AND [id number] 19 :59:00 Test Item Value Reference Range Comments HEMOGLOBIN (BEAKER) (test pgsa=772) 9.0 GM/DL 13.7-17.5 HEMATOCRIT (BEAKER) (test qinz=579) 26.0 % 40.1-51.0 [id number] 19:23:00 Test Item Value Reference Range Comments MAGNESIUM (BEAKER) (test 2.2 mg/dL 1.6-2.6 Specimen moderately hemolyzed hugn=407) [id number] 19:23:00 Test Item Value Reference Range Comments POTASSIUM (BEAKER) (test 4.5 meq/L 3.5-5.1 Specimen moderately hemolyzed jvxf=053) SODIUM NA-STAT [id number] 19:09:00 Test Item Value Reference Range Comments SODIUM (BEAKER) (test lrfk=743) 135 meq/L 135-148 [id number] 16:38:00 Test Item Value Reference Range Comments ACTIVATED CLOTTING TIME 329 sec TESTED AT [facility] [address] [facility] (BEAKER) (test wflm=710) [facility] [address] CALCIUM, [id number] 16:06:00 Test Item Value Reference Range Comments CALCIUM IONIZED (BEAKER) (test zknx=169) 1.19 mmol/L 1.12-1.27 PH, BLOOD (BEAKER) (test qvwt=0292) 7.37 POTASSIUM-STAT [id number] 16:06:00 Test Item Value Reference Range Comments POTASSIUM (BEAKER) (test evae=599) 3.7 meq/L 3.6-5.5 BLOOD GAS, [id number] 16:06:00 Test Item Value Reference Range Comments PH ARTERIAL (BEAKER) (test tzvb=248) 7.37 7.35-7.45 PCO2 ARTERIAL (BEAKER) (test npmn=535) 39 mmHg 35-45 PO2 ARTERIAL (BEAKER) (test woya=432) 210 mmHg 80-90 O2 SATURATION ARTERIAL (BEAKER) (test qxwz=389) 99.4 % 96.0-97.0 HCO3 ARTERIAL (BEAKER) (test wstz=572) 22 mmol/L 21-29 BASE EXCESS ARTERIAL (BEAKER) (test udhu=181) -3.5 mmol/L -2.0-3.0 PATIENT TEMPERATURE (BEAKER) (test yedg=4663) 35.0 C FIO2 (BEAKER) (test kwmk=2154) 50.0 % SODIUM NA-STAT [id number] 16:06:00 Test Item Value Reference Range Comments SODIUM (BEAKER) (test rtzw=716) 134 meq/L 135-148 GLUCOSE-STAT [id number] 16:06:00 Test Item Value Reference Range Comments GLUCOSE RANDOM (BEAKER) (test jibl=352) 115 mg/dL 70-110 HGB/HCT (H&H) - STAT [id number] 16:06:00 Test Item Value Reference Range Comments HEMOGLOBIN (BEAKER) (test vitz=239) 8.4 g/dL 13.0-16.8 HEMATOCRIT (BEAKER) (test nfxr=465) 25.0 % 40.0-50.0 [id number] 05:56:00 Test Item Value Reference Range Comments PARTIAL THROMBOPLASTIN TIME (BEAKER) (test 104.4 seconds 22.5-36.0 eram=939) [id number] 05:44:00 Test Item Value Reference Range Comments MAGNESIUM (BEAKER) (test ophl=033) 1.8 mg/dL 1.6-2.6 COMPREHENSIVE METABOLIC [id number] 05:44:00 Test Item Value Reference Range Comments TOTAL PROTEIN (BEAKER) 6.6 gm/dL 6.0-8.3 (test xkte=021) ALBUMIN (BEAKER) (test 3.6 g/dL 3.5-5.0 ytnu=7168) ALKALINE PHOSPHATASE 78 U/L 40-150 (BEAKER) (test exvw=933) BILIRUBIN TOTAL (BEAKER) 0.4 mg/dL 0.2-1.2 (test lnul=700) SODIUM (BEAKER) (test 135 meq/L 136-145 mcsm=396) POTASSIUM (BEAKER) (test 4.0 meq/L 3.5-5.1 sgdq=476) CHLORIDE (BEAKER) (test 106 meq/L 98-107 ljsf=012) CO2 (BEAKER) (test 22 meq/L 22-29 lgeu=562) BLOOD UREA NITROGEN 9 mg/dL 7-21 (BEAKER) (test ydek=723) CREATININE (BEAKER) (test 1.41 mg/dL 0.57-1.25 atsu=401) GLUCOSE RANDOM (BEAKER) 107 mg/dL 70-105 (test koed=298) CALCIUM (BEAKER) (test 9.2 mg/dL 8.4-10.2 qelj=711) AST (SGOT) (BEAKER) (test 82 U/L 5-34 sxat=527) ALT (SGPT) (BEAKER) (test 22 U/L 6-55 cekx=594) EGFR (BEAKER) (test 51 mL/min/1.73 sq m ESTIMATED GFR IS NOT bioc=0670) ACCURATE CREATININE CLEARANCE IN PREDICTING GLOMERULAR FILTRATION RATE. ESTIMATED GFR IS NOT APPLICABLE FOR DIALYSIS PATIENTS. BASIC METABOLIC [id number] 05:44:00 Test Item Value Reference Range Comments SODIUM (BEAKER) (test 135 meq/L 136-145 eybz=138) POTASSIUM (BEAKER) (test 4.0 meq/L 3.5-5.1 gwlc=381) CHLORIDE (BEAKER) (test 106 meq/L 98-107 zjzy=967) CO2 (BEAKER) (test 22 meq/L 22-29 pnha=814) BLOOD UREA NITROGEN 9 mg/dL 7-21 (BEAKER) (test vjfx=276) CREATININE (BEAKER) (test 1.41 mg/dL 0.57-1.25 rwhf=036) GLUCOSE RANDOM (BEAKER) 107 mg/dL 70-105 (test hgfb=447) CALCIUM (BEAKER) (test 9.2 mg/dL 8.4-10.2 svel=053) EGFR (BEAKER) (test 51 mL/min/1.73 sq m ESTIMATED GFR IS NOT vscu=9472) ACCURATE CREATININE CLEARANCE IN PREDICTING GLOMERULAR FILTRATION RATE. ESTIMATED GFR IS NOT APPLICABLE FOR DIALYSIS PATIENTS. CBC W/PLT COUNT & AUTO [id number] 05:11:00 Test Item Value Reference Range Comments WHITE BLOOD CELL COUNT (BEAKER) (test prkn=648) 7.8 K/ L 3.5-10.5 RED BLOOD CELL COUNT (BEAKER) (test bnvs=455) 3.66 M/ L 4.63-6.08 HEMOGLOBIN (BEAKER) (test ldns=560) 10.7 GM/DL 13.7-17.5 HEMATOCRIT (BEAKER) (test nflq=148) 32.7 % 40.1-51.0 MEAN CORPUSCULAR VOLUME (BEAKER) (test nwsq=865) 89.3 fL 79.0-92.2 MEAN CORPUSCULAR HEMOGLOBIN (BEAKER) (test 29.2 pg 25.7-32.2 zqjs=070) MEAN CORPUSCULAR HEMOGLOBIN CONC (BEAKER) (test 32.7 GM/DL 32.3-36.5 tbkm=440) RED CELL DISTRIBUTION WIDTH (BEAKER) (test 14.2 % 11.6-14.4 tija=170) PLATELET COUNT (BEAKER) (test ktfn=050) 283 K/CU MM 150-450 MEAN PLATELET VOLUME (BEAKER) (test rthf=185) 8.8 fL 9.4-12.4 NUCLEATED RED BLOOD CELLS (BEAKER) (test 0 /100 WBC 0-0 fvbs=667) NEUTROPHILS RELATIVE PERCENT (BEAKER) (test 66 % icgx=182) LYMPHOCYTES RELATIVE PERCENT (BEAKER) (test 21 % gngf=154) MONOCYTES RELATIVE PERCENT (BEAKER) (test 10 % fyxl=562) EOSINOPHILS RELATIVE PERCENT (BEAKER) (test 3 % lxvg=811) BASOPHILS RELATIVE PERCENT (BEAKER) (test 0 % ihnr=849) NEUTROPHILS ABSOLUTE COUNT (BEAKER) (test 5.15 K/ L 1.78-5.38 dewb=702) LYMPHOCYTES ABSOLUTE COUNT (BEAKER) (test 1.60 K/ L 1.32-3.57 dnsx=704) MONOCYTES ABSOLUTE COUNT (BEAKER) (test 0.74 K/ L 0.30-0.82 pvmp=794) EOSINOPHILS ABSOLUTE COUNT (BEAKER) (test 0.25 K/ L 0.04-0.54 uegh=068) BASOPHILS ABSOLUTE COUNT (BEAKER) (test 0.03 K/ L 0.01-0.08 zxhg=945) IMMATURE GRANULOCYTES-RELATIVE PERCENT (BEAKER) 0 % 0-1 (test aydi=4556) CBC (HEMOGRAM ONLY)2018-06-06 05:11:00 Test Item Value Reference Range Comments WHITE BLOOD CELL COUNT (BEAKER) (test wujj=379) 7.8 K/ L 3.5-10.5 RED BLOOD CELL COUNT (BEAKER) (test szdg=163) 3.66 M/ L 4.63-6.08 HEMOGLOBIN (BEAKER) (test afvj=857) 10.7 GM/DL 13.7-17.5 HEMATOCRIT (BEAKER) (test fgsi=716) 32.7 % 40.1-51.0 MEAN CORPUSCULAR VOLUME (BEAKER) (test rvil=995) 89.3 fL 79.0-92.2 MEAN CORPUSCULAR HEMOGLOBIN (BEAKER) (test 29.2 pg 25.7-32.2 wsle=753) MEAN CORPUSCULAR HEMOGLOBIN CONC (BEAKER) (test 32.7 GM/DL 32.3-36.5 yvie=997) RED CELL DISTRIBUTION WIDTH (BEAKER) (test 14.2 % 11.6-14.4 bqyf=031) PLATELET COUNT (BEAKER) (test atey=617) 283 K/CU MM 150-450 MEAN PLATELET VOLUME (BEAKER) (test pbci=931) 8.8 fL 9.4-12.4 NUCLEATED RED BLOOD CELLS (BEAKER) (test 0 /100 WBC 0-0 kawl=529) [id number] 21:45:00 Test Item Value Reference Range Comments PARTIAL THROMBOPLASTIN TIME (BEAKER) (test 51.5 seconds 22.5-36.0 yyzt=509) [id number] 14:32:00 Test Item Value Reference Range Comments PARTIAL THROMBOPLASTIN TIME (BEAKER) (test 33.6 seconds 22.5-36.0 dquq=359) [id number] 06:41:00 Test Item Value Reference Range Comments PARTIAL THROMBOPLASTIN TIME (BEAKER) (test 30.4 seconds 22.5-36.0 psgb=842) Prior to initiating heparinCBC (HEMOGRAM ONLY)2018-06-05 06:28:00 Test Item Value Reference Range Comments WHITE BLOOD CELL COUNT (BEAKER) (test ugpp=185) 15.2 K/ L 3.5-10.5 RED BLOOD CELL COUNT (BEAKER) (test iels=320) 3.99 M/ L 4.63-6.08 HEMOGLOBIN (BEAKER) (test bdgx=773) 11.8 GM/DL 13.7-17.5 HEMATOCRIT (BEAKER) (test ktot=795) 35.6 % 40.1-51.0 MEAN CORPUSCULAR VOLUME (BEAKER) (test snjv=845) 89.2 fL 79.0-92.2 MEAN CORPUSCULAR HEMOGLOBIN (BEAKER) (test 29.6 pg 25.7-32.2 xptr=617) MEAN CORPUSCULAR HEMOGLOBIN CONC (BEAKER) (test 33.1 GM/DL 32.3-36.5 kozd=370) RED CELL DISTRIBUTION WIDTH (BEAKER) (test 14.4 % 11.6-14.4 vgrk=361) PLATELET COUNT (BEAKER) (test ginf=207) 336 K/CU MM 150-450 MEAN PLATELET VOLUME (BEAKER) (test buip=224) 8.8 fL 9.4-12.4 NUCLEATED RED BLOOD CELLS (BEAKER) (test 0 /100 WBC 0-0 vhan=548) COMPREHENSIVE METABOLIC [id number] 07:39:00 Test Item Value Reference Range Comments TOTAL PROTEIN (BEAKER) 5.9 gm/dL 6.0-8.3 (test ttkl=668) ALBUMIN (BEAKER) (test 3.1 g/dL 3.5-5.0 mdul=8946) ALKALINE PHOSPHATASE 61 U/L 40-150 (BEAKER) (test nytd=671) BILIRUBIN TOTAL (BEAKER) 0.2 mg/dL 0.2-1.2 (test yhub=353) SODIUM (BEAKER) (test 139 meq/L 136-145 ppwe=506) POTASSIUM (BEAKER) (test 4.7 meq/L 3.5-5.1 jaiq=240) CHLORIDE (BEAKER) (test 109 meq/L 98-107 uaoa=289) CO2 (BEAKER) (test 24 meq/L 22-29 unyy=046) BLOOD UREA NITROGEN 21 mg/dL 7-21 (BEAKER) (test txxd=610) CREATININE (BEAKER) (test 1.61 mg/dL 0.57-1.25 ntwm=182) GLUCOSE RANDOM (BEAKER) 101 mg/dL 70-105 (test cvgk=606) CALCIUM (BEAKER) (test 8.4 mg/dL 8.4-10.2 srka=319) AST (SGOT) (BEAKER) (test 12 U/L 5-34 ualt=416) ALT (SGPT) (BEAKER) (test 6 U/L 6-55 utba=738) EGFR (BEAKER) (test 44 mL/min/1.73 sq m ESTIMATED GFR IS NOT chad=0015) ACCURATE CREATININE CLEARANCE IN PREDICTING GLOMERULAR FILTRATION RATE. ESTIMATED GFR IS NOT APPLICABLE FOR DIALYSIS PATIENTS. CBC W/PLT COUNT & AUTO [id number] 06:16:00 Test Item Value Reference Range Comments WHITE BLOOD CELL COUNT (BEAKER) (test fuav=827) 6.3 K/ L 3.5-10.5 RED BLOOD CELL COUNT (BEAKER) (test kcla=281) 3.55 M/ L 4.63-6.08 HEMOGLOBIN (BEAKER) (test utkg=971) 10.5 GM/DL 13.7-17.5 HEMATOCRIT (BEAKER) (test bdos=307) 32.7 % 40.1-51.0 MEAN CORPUSCULAR VOLUME (BEAKER) (test jrks=425) 92.1 fL 79.0-92.2 MEAN CORPUSCULAR HEMOGLOBIN (BEAKER) (test 29.6 pg 25.7-32.2 sdwl=265) MEAN CORPUSCULAR HEMOGLOBIN CONC (BEAKER) (test 32.1 GM/DL 32.3-36.5 lcxk=427) RED CELL DISTRIBUTION WIDTH (BEAKER) (test 14.2 % 11.6-14.4 uzwe=390) PLATELET COUNT (BEAKER) (test kkgk=809) 363 K/CU MM 150-450 MEAN PLATELET VOLUME (BEAKER) (test lkcv=570) 8.6 fL 9.4-12.4 NUCLEATED RED BLOOD CELLS (BEAKER) (test 0 /100 WBC 0-0 arwp=984) NEUTROPHILS RELATIVE PERCENT (BEAKER) (test 73 % cxbg=344) LYMPHOCYTES RELATIVE PERCENT (BEAKER) (test 20 % ajef=247) MONOCYTES RELATIVE PERCENT (BEAKER) (test 5 % pfhi=765) EOSINOPHILS RELATIVE PERCENT (BEAKER) (test 2 % kmly=503) BASOPHILS RELATIVE PERCENT (BEAKER) (test 1 % sxvm=671) NEUTROPHILS ABSOLUTE COUNT (BEAKER) (test 4.55 K/ L 1.78-5.38 jkju=539) LYMPHOCYTES ABSOLUTE COUNT (BEAKER) (test 1.24 K/ L 1.32-3.57 pyid=289) MONOCYTES ABSOLUTE COUNT (BEAKER) (test 0.31 K/ L 0.30-0.82 zdxl=673) EOSINOPHILS ABSOLUTE COUNT (BEAKER) (test 0.13 K/ L 0.04-0.54 enge=812) BASOPHILS ABSOLUTE COUNT (BEAKER) (test 0.03 K/ L 0.01-0.08 iygp=401) IMMATURE GRANULOCYTES-RELATIVE PERCENT (BEAKER) 0 % 0-1 (test jayp=3276) COMPREHENSIVE METABOLIC [id number] 06:45:00 Test Item Value Reference Range Comments TOTAL PROTEIN (BEAKER) 6.2 gm/dL 6.0-8.3 (test brst=957) ALBUMIN (BEAKER) (test 3.2 g/dL 3.5-5.0 clrj=7177) ALKALINE PHOSPHATASE 68 U/L 40-150 (BEAKER) (test iica=035) BILIRUBIN TOTAL (BEAKER) 0.3 mg/dL 0.2-1.2 (test ocbr=345) SODIUM (BEAKER) (test 140 meq/L 136-145 yeit=175) POTASSIUM (BEAKER) (test 4.7 meq/L 3.5-5.1 twnf=928) CHLORIDE (BEAKER) (test 109 meq/L 98-107 owqk=079) CO2 (BEAKER) (test 25 meq/L 22-29 izdm=152) BLOOD UREA NITROGEN 20 mg/dL 7-21 (BEAKER) (test xxsh=842) CREATININE (BEAKER) (test 1.71 mg/dL 0.57-1.25 nrak=549) GLUCOSE RANDOM (BEAKER) 104 mg/dL 70-105 (test vbnm=473) CALCIUM (BEAKER) (test 8.4 mg/dL 8.4-10.2 blfp=438) AST (SGOT) (BEAKER) (test 11 U/L 5-34 vkik=668) ALT (SGPT) (BEAKER) (test 8 U/L 6-55 afmb=759) EGFR (BEAKER) (test 41 mL/min/1.73 sq m ESTIMATED GFR IS NOT hjpz=8685) ACCURATE CREATININE CLEARANCE IN PREDICTING GLOMERULAR FILTRATION RATE. ESTIMATED GFR IS NOT APPLICABLE FOR DIALYSIS PATIENTS. CBC W/PLT COUNT & AUTO [id number] 05:36:00 Test Item Value Reference Range Comments WHITE BLOOD CELL COUNT (BEAKER) (test yufi=259) 7.0 K/ L 3.5-10.5 RED BLOOD CELL COUNT (BEAKER) (test rvsj=635) 3.55 M/ L 4.63-6.08 HEMOGLOBIN (BEAKER) (test sqio=417) 10.3 GM/DL 13.7-17.5 HEMATOCRIT (BEAKER) (test fjij=710) 33.1 % 40.1-51.0 MEAN CORPUSCULAR VOLUME (BEAKER) (test sowg=667) 93.2 fL 79.0-92.2 MEAN CORPUSCULAR HEMOGLOBIN (BEAKER) (test 29.0 pg 25.7-32.2 ehyf=916) MEAN CORPUSCULAR HEMOGLOBIN CONC (BEAKER) (test 31.1 GM/DL 32.3-36.5 wruc=531) RED CELL DISTRIBUTION WIDTH (BEAKER) (test 14.2 % 11.6-14.4 rvpb=612) PLATELET COUNT (BEAKER) (test zlkw=137) 409 K/CU MM 150-450 MEAN PLATELET VOLUME (BEAKER) (test xxgq=696) 8.7 fL 9.4-12.4 NUCLEATED RED BLOOD CELLS (BEAKER) (test 0 /100 WBC 0-0 dvbo=535) NEUTROPHILS RELATIVE PERCENT (BEAKER) (test 69 % smuj=759) LYMPHOCYTES RELATIVE PERCENT (BEAKER) (test 21 % vthy=840) MONOCYTES RELATIVE PERCENT (BEAKER) (test 7 % nswj=573) EOSINOPHILS RELATIVE PERCENT (BEAKER) (test 2 % paae=130) BASOPHILS RELATIVE PERCENT (BEAKER) (test 1 % xulw=023) NEUTROPHILS ABSOLUTE COUNT (BEAKER) (test 4.87 K/ L 1.78-5.38 fmmc=718) LYMPHOCYTES ABSOLUTE COUNT (BEAKER) (test 1.46 K/ L 1.32-3.57 ujyz=289) MONOCYTES ABSOLUTE COUNT (BEAKER) (test 0.47 K/ L 0.30-0.82 nxoh=115) EOSINOPHILS ABSOLUTE COUNT (BEAKER) (test 0.16 K/ L 0.04-0.54 sssz=987) BASOPHILS ABSOLUTE COUNT (BEAKER) (test 0.04 K/ L 0.01-0.08 kwgv=893) IMMATURE GRANULOCYTES-RELATIVE PERCENT (BEAKER) 0 % 0-1 (test ghnj=9812) CBC W/PLT COUNT & AUTO [id number] 06:02:00 Test Item Value Reference Range Comments WHITE BLOOD CELL COUNT (BEAKER) (test cgzg=123) 7.8 K/ L 3.5-10.5 RED BLOOD CELL COUNT (BEAKER) (test hjtq=909) 3.25 M/ L 4.63-6.08 HEMOGLOBIN (BEAKER) (test hcwp=718) 9.6 GM/DL 13.7-17.5 HEMATOCRIT (BEAKER) (test ifkb=405) 30.2 % 40.1-51.0 MEAN CORPUSCULAR VOLUME (BEAKER) (test csth=578) 92.9 fL 79.0-92.2 MEAN CORPUSCULAR HEMOGLOBIN (BEAKER) (test 29.5 pg 25.7-32.2 tbvg=429) MEAN CORPUSCULAR HEMOGLOBIN CONC (BEAKER) (test 31.8 GM/DL 32.3-36.5 ukxh=944) RED CELL DISTRIBUTION WIDTH (BEAKER) (test 14.3 % 11.6-14.4 kxjb=951) PLATELET COUNT (BEAKER) (test xsou=483) 344 K/CU MM 150-450 MEAN PLATELET VOLUME (BEAKER) (test kgdx=323) 8.7 fL 9.4-12.4 NUCLEATED RED BLOOD CELLS (BEAKER) (test 0 /100 WBC 0-0 vkwo=500) NEUTROPHILS RELATIVE PERCENT (BEAKER) (test 66 % nsck=683) LYMPHOCYTES RELATIVE PERCENT (BEAKER) (test 19 % iucy=519) MONOCYTES RELATIVE PERCENT (BEAKER) (test 8 % nzau=578) EOSINOPHILS RELATIVE PERCENT (BEAKER) (test 6 % pgkv=425) BASOPHILS RELATIVE PERCENT (BEAKER) (test 1 % dtga=380) NEUTROPHILS ABSOLUTE COUNT (BEAKER) (test 5.20 K/ L 1.78-5.38 eqzz=389) LYMPHOCYTES ABSOLUTE COUNT (BEAKER) (test 1.51 K/ L 1.32-3.57 akfl=698) MONOCYTES ABSOLUTE COUNT (BEAKER) (test 0.61 K/ L 0.30-0.82 jtnc=921) EOSINOPHILS ABSOLUTE COUNT (BEAKER) (test 0.43 K/ L 0.04-0.54 waop=054) BASOPHILS ABSOLUTE COUNT (BEAKER) (test 0.05 K/ L 0.01-0.08 nlho=878) IMMATURE GRANULOCYTES-RELATIVE PERCENT (BEAKER) 0 % 0-1 (test ovdn=8104) CBC W/PLT COUNT & AUTO [id number] 04:40:00 Test Item Value Reference Range Comments WHITE BLOOD CELL COUNT (BEAKER) (test hjku=258) 7.7 K/ L 3.5-10.5 RED BLOOD CELL COUNT (BEAKER) (test plgm=278) 3.27 M/ L 4.63-6.08 HEMOGLOBIN (BEAKER) (test nawm=999) 9.7 GM/DL 13.7-17.5 HEMATOCRIT (BEAKER) (test whfw=933) 30.6 % 40.1-51.0 MEAN CORPUSCULAR VOLUME (BEAKER) (test bzpc=350) 93.6 fL 79.0-92.2 MEAN CORPUSCULAR HEMOGLOBIN (BEAKER) (test 29.7 pg 25.7-32.2 bnvc=648) MEAN CORPUSCULAR HEMOGLOBIN CONC (BEAKER) (test 31.7 GM/DL 32.3-36.5 abvc=448) RED CELL DISTRIBUTION WIDTH (BEAKER) (test 14.4 % 11.6-14.4 ttsd=021) PLATELET COUNT (BEAKER) (test fnso=116) 329 K/CU MM 150-450 MEAN PLATELET VOLUME (BEAKER) (test mgfn=885) 8.5 fL 9.4-12.4 NUCLEATED RED BLOOD CELLS (BEAKER) (test 0 /100 WBC 0-0 sdit=782) NEUTROPHILS RELATIVE PERCENT (BEAKER) (test 64 % dudp=166) LYMPHOCYTES RELATIVE PERCENT (BEAKER) (test 21 % jgiy=501) MONOCYTES RELATIVE PERCENT (BEAKER) (test 10 % sorw=863) EOSINOPHILS RELATIVE PERCENT (BEAKER) (test 5 % nxra=189) BASOPHILS RELATIVE PERCENT (BEAKER) (test 1 % dsvg=508) NEUTROPHILS ABSOLUTE COUNT (BEAKER) (test 4.88 K/ L 1.78-5.38 sgux=187) LYMPHOCYTES ABSOLUTE COUNT (BEAKER) (test 1.60 K/ L 1.32-3.57 fdxu=692) MONOCYTES ABSOLUTE COUNT (BEAKER) (test 0.74 K/ L 0.30-0.82 ylvz=192) EOSINOPHILS ABSOLUTE COUNT (BEAKER) (test 0.37 K/ L 0.04-0.54 ymik=869) BASOPHILS ABSOLUTE COUNT (BEAKER) (test 0.05 K/ L 0.01-0.08 gwds=156) IMMATURE GRANULOCYTES-RELATIVE PERCENT (BEAKER) 0 % 0-1 (test txhq=3782) [id number] 06:27:00 Test Item Value Reference Range Comments MAGNESIUM (BEAKER) (test 2.2 mg/dL 1.6-2.6 Specimen slightly hemolyzed kaui=713) BASIC METABOLIC [id number] 06:27:00 Test Item Value Reference Range Comments SODIUM (BEAKER) (test 142 meq/L 136-145 kphs=618) POTASSIUM (BEAKER) (test 4.6 meq/L 3.5-5.1 Specimen slightly slfn=503) hemolyzed CHLORIDE (BEAKER) (test 111 meq/L 98-107 vtbp=683) CO2 (BEAKER) (test 24 meq/L 22-29 hmwd=874) BLOOD UREA NITROGEN 14 mg/dL 7-21 (BEAKER) (test dnfu=288) CREATININE (BEAKER) (test 1.63 mg/dL 0.57-1.25 Specimen slightly dspd=086) hemolyzed GLUCOSE RANDOM (BEAKER) 102 mg/dL 70-105 (test pfpt=572) CALCIUM (BEAKER) (test 8.7 mg/dL 8.4-10.2 rukw=286) EGFR (BEAKER) (test 43 mL/min/1.73 sq m ESTIMATED GFR IS NOT enlj=5654) ACCURATE CREATININE CLEARANCE IN PREDICTING GLOMERULAR FILTRATION RATE. ESTIMATED GFR IS NOT APPLICABLE FOR DIALYSIS PATIENTS. CBC W/PLT COUNT & AUTO [id number] 06:07:00 Test Item Value Reference Range Comments WHITE BLOOD CELL COUNT (BEAKER) (test riof=030) 7.2 K/ L 3.5-10.5 RED BLOOD CELL COUNT (BEAKER) (test rjci=882) 3.28 M/ L 4.63-6.08 HEMOGLOBIN (BEAKER) (test rpzy=130) 9.6 GM/DL 13.7-17.5 HEMATOCRIT (BEAKER) (test wmym=342) 30.1 % 40.1-51.0 MEAN CORPUSCULAR VOLUME (BEAKER) (test vvos=501) 91.8 fL 79.0-92.2 MEAN CORPUSCULAR HEMOGLOBIN (BEAKER) (test 29.3 pg 25.7-32.2 laaz=519) MEAN CORPUSCULAR HEMOGLOBIN CONC (BEAKER) (test 31.9 GM/DL 32.3-36.5 thop=525) RED CELL DISTRIBUTION WIDTH (BEAKER) (test 14.4 % 11.6-14.4 pvix=382) PLATELET COUNT (BEAKER) (test kxre=670) 309 K/CU MM 150-450 MEAN PLATELET VOLUME (BEAKER) (test ivjh=076) 8.8 fL 9.4-12.4 NUCLEATED RED BLOOD CELLS (BEAKER) (test 0 /100 WBC 0-0 asgo=955) NEUTROPHILS RELATIVE PERCENT (BEAKER) (test 64 % uzhn=206) LYMPHOCYTES RELATIVE PERCENT (BEAKER) (test 22 % ztox=079) MONOCYTES RELATIVE PERCENT (BEAKER) (test 9 % nihc=428) EOSINOPHILS RELATIVE PERCENT (BEAKER) (test 4 % cbib=926) BASOPHILS RELATIVE PERCENT (BEAKER) (test 1 % ndrf=476) NEUTROPHILS ABSOLUTE COUNT (BEAKER) (test 4.63 K/ L 1.78-5.38 mbib=786) LYMPHOCYTES ABSOLUTE COUNT (BEAKER) (test 1.57 K/ L 1.32-3.57 vpiz=329) MONOCYTES ABSOLUTE COUNT (BEAKER) (test 0.63 K/ L 0.30-0.82 opsw=778) EOSINOPHILS ABSOLUTE COUNT (BEAKER) (test 0.29 K/ L 0.04-0.54 rfta=391) BASOPHILS ABSOLUTE COUNT (BEAKER) (test 0.04 K/ L 0.01-0.08 pfji=519) IMMATURE GRANULOCYTES-RELATIVE PERCENT (BEAKER) 1 % 0-1 (test nazp=4618) [id number] 13:12:00 Test Item Value Reference Range Comments MAGNESIUM (BEAKER) (test 2.0 mg/dL 1.6-2.6 Specimen slightly hemolyzed amqo=769) BASIC METABOLIC [id number] 13:12:00 Test Item Value Reference Range Comments SODIUM (BEAKER) (test 140 meq/L 136-145 qonh=887) POTASSIUM (BEAKER) (test 4.3 meq/L 3.5-5.1 Specimen slightly ptlq=328) hemolyzed CHLORIDE (BEAKER) (test 107 meq/L 98-107 cnwz=248) CO2 (BEAKER) (test 26 meq/L 22-29 bale=053) BLOOD UREA NITROGEN 16 mg/dL 7-21 (BEAKER) (test wlpd=872) CREATININE (BEAKER) (test 1.70 mg/dL 0.57-1.25 Specimen slightly omyh=866) hemolyzed GLUCOSE RANDOM (BEAKER) 95 mg/dL 70-105 (test iqhn=962) CALCIUM (BEAKER) (test 9.0 mg/dL 8.4-10.2 ajvr=668) EGFR (BEAKER) (test 41 mL/min/1.73 sq m ESTIMATED GFR IS NOT ixyk=5404) ACCURATE CREATININE CLEARANCE IN PREDICTING GLOMERULAR FILTRATION RATE. ESTIMATED GFR IS NOT APPLICABLE FOR DIALYSIS PATIENTS. CBC W/PLT COUNT & AUTO [id number] 12:57:00 Test Item Value Reference Range Comments WHITE BLOOD CELL COUNT (BEAKER) (test byza=545) 7.8 K/ L 3.5-10.5 RED BLOOD CELL COUNT (BEAKER) (test aglc=623) 3.61 M/ L 4.63-6.08 HEMOGLOBIN (BEAKER) (test hxmx=824) 10.7 GM/DL 13.7-17.5 HEMATOCRIT (BEAKER) (test peaj=875) 33.6 % 40.1-51.0 MEAN CORPUSCULAR VOLUME (BEAKER) (test nmuh=786) 93.1 fL 79.0-92.2 MEAN CORPUSCULAR HEMOGLOBIN (BEAKER) (test 29.6 pg 25.7-32.2 btlr=929) MEAN CORPUSCULAR HEMOGLOBIN CONC (BEAKER) (test 31.8 GM/DL 32.3-36.5 bdoe=062) RED CELL DISTRIBUTION WIDTH (BEAKER) (test 14.5 % 11.6-14.4 sfhp=553) PLATELET COUNT (BEAKER) (test ubjw=381) 306 K/CU MM 150-450 MEAN PLATELET VOLUME (BEAKER) (test uqjq=591) 8.7 fL 9.4-12.4 NUCLEATED RED BLOOD CELLS (BEAKER) (test 0 /100 WBC 0-0 ksnv=073) NEUTROPHILS RELATIVE PERCENT (BEAKER) (test 65 % lktr=502) LYMPHOCYTES RELATIVE PERCENT (BEAKER) (test 20 % junv=341) MONOCYTES RELATIVE PERCENT (BEAKER) (test 11 % jdhu=979) EOSINOPHILS RELATIVE PERCENT (BEAKER) (test 4 % wczf=052) BASOPHILS RELATIVE PERCENT (BEAKER) (test 0 % zvct=057) NEUTROPHILS ABSOLUTE COUNT (BEAKER) (test 5.06 K/ L 1.78-5.38 gugw=646) LYMPHOCYTES ABSOLUTE COUNT (BEAKER) (test 1.55 K/ L 1.32-3.57 yfaq=572) MONOCYTES ABSOLUTE COUNT (BEAKER) (test 0.82 K/ L 0.30-0.82 mswp=706) EOSINOPHILS ABSOLUTE COUNT (BEAKER) (test 0.29 K/ L 0.04-0.54 heri=311) BASOPHILS ABSOLUTE COUNT (BEAKER) (test 0.03 K/ L 0.01-0.08 qopw=081) IMMATURE GRANULOCYTES-RELATIVE PERCENT (BEAKER) 0 % 0-1 (test rcrt=7435) [id number] 06:25:00 Test Item Value Reference Range Comments MAGNESIUM (BEAKER) (test nlqk=913) 2.0 mg/dL 1.6-2.6 BASIC METABOLIC [id number] 06:25:00 Test Item Value Reference Range Comments SODIUM (BEAKER) (test 141 meq/L 136-145 qjvq=236) POTASSIUM (BEAKER) (test 4.3 meq/L 3.5-5.1 awkj=535) CHLORIDE (BEAKER) (test 109 meq/L 98-107 tavi=320) CO2 (BEAKER) (test 24 meq/L 22-29 gdng=698) BLOOD UREA NITROGEN 18 mg/dL 7-21 (BEAKER) (test izoo=251) CREATININE (BEAKER) (test 1.81 mg/dL 0.57-1.25 bcsu=581) GLUCOSE RANDOM (BEAKER) 110 mg/dL 70-105 (test mwur=933) CALCIUM (BEAKER) (test 8.7 mg/dL 8.4-10.2 zujs=335) EGFR (BEAKER) (test 38 mL/min/1.73 sq m ESTIMATED GFR IS NOT zoki=2739) ACCURATE CREATININE CLEARANCE IN PREDICTING GLOMERULAR FILTRATION RATE. ESTIMATED GFR IS NOT APPLICABLE FOR DIALYSIS PATIENTS. CBC W/PLT COUNT & AUTO [id number] 05:20:00 Test Item Value Reference Range Comments WHITE BLOOD CELL COUNT (BEAKER) (test ebpz=509) 7.8 K/ L 3.5-10.5 RED BLOOD CELL COUNT (BEAKER) (test exss=089) 3.59 M/ L 4.63-6.08 HEMOGLOBIN (BEAKER) (test wofo=453) 10.7 GM/DL 13.7-17.5 HEMATOCRIT (BEAKER) (test jjdk=017) 32.9 % 40.1-51.0 MEAN CORPUSCULAR VOLUME (BEAKER) (test ioon=320) 91.6 fL 79.0-92.2 MEAN CORPUSCULAR HEMOGLOBIN (BEAKER) (test 29.8 pg 25.7-32.2 cxch=304) MEAN CORPUSCULAR HEMOGLOBIN CONC (BEAKER) (test 32.5 GM/DL 32.3-36.5 waia=184) RED CELL DISTRIBUTION WIDTH (BEAKER) (test 14.3 % 11.6-14.4 zpqc=574) PLATELET COUNT (BEAKER) (test bnod=391) 278 K/CU MM 150-450 MEAN PLATELET VOLUME (BEAKER) (test kskz=246) 9.0 fL 9.4-12.4 NUCLEATED RED BLOOD CELLS (BEAKER) (test 0 /100 WBC 0-0 nrvc=422) NEUTROPHILS RELATIVE PERCENT (BEAKER) (test 69 % xjsi=275) LYMPHOCYTES RELATIVE PERCENT (BEAKER) (test 16 % etfs=759) MONOCYTES RELATIVE PERCENT (BEAKER) (test 10 % bhdl=452) EOSINOPHILS RELATIVE PERCENT (BEAKER) (test 4 % itmi=337) BASOPHILS RELATIVE PERCENT (BEAKER) (test 0 % kihp=858) NEUTROPHILS ABSOLUTE COUNT (BEAKER) (test 5.37 K/ L 1.78-5.38 hetv=714) LYMPHOCYTES ABSOLUTE COUNT (BEAKER) (test 1.25 K/ L 1.32-3.57 zfaf=199) MONOCYTES ABSOLUTE COUNT (BEAKER) (test 0.77 K/ L 0.30-0.82 otcx=398) EOSINOPHILS ABSOLUTE COUNT (BEAKER) (test 0.32 K/ L 0.04-0.54 amox=487) BASOPHILS ABSOLUTE COUNT (BEAKER) (test 0.03 K/ L 0.01-0.08 phsb=688) IMMATURE GRANULOCYTES-RELATIVE PERCENT (BEAKER) 1 % 0-1 (test btwj=0013) HEMOGLOBIN AND [id number] 17:07:00 Test Item Value Reference Range Comments HEMOGLOBIN (BEAKER) (test yizc=031) 11.2 GM/DL 13.7-17.5 HEMATOCRIT (BEAKER) (test knwc=864) 33.7 % 40.1-51.0 [id number] 12:56:00 Test Item Value Reference Range Comments MAGNESIUM (BEAKER) (test zrqw=998) 1.9 mg/dL 1.6-2.6 BASIC METABOLIC [id number] 12:56:00 Test Item Value Reference Range Comments SODIUM (BEAKER) (test 139 meq/L 136-145 jdru=579) POTASSIUM (BEAKER) (test 4.1 meq/L 3.5-5.1 jugu=438) CHLORIDE (BEAKER) (test 105 meq/L 98-107 bxhm=599) CO2 (BEAKER) (test 23 meq/L 22-29 ifxd=347) BLOOD UREA NITROGEN 17 mg/dL 7-21 (BEAKER) (test mohb=795) CREATININE (BEAKER) (test 1.80 mg/dL 0.57-1.25 csec=680) GLUCOSE RANDOM (BEAKER) 87 mg/dL 70-105 (test qgoh=178) CALCIUM (BEAKER) (test 9.0 mg/dL 8.4-10.2 jjme=282) EGFR (BEAKER) (test 38 mL/min/1.73 sq m ESTIMATED GFR IS NOT ldpp=3192) ACCURATE CREATININE CLEARANCE IN PREDICTING GLOMERULAR FILTRATION RATE. ESTIMATED GFR IS NOT APPLICABLE FOR DIALYSIS PATIENTS. CBC W/PLT COUNT & AUTO [id number] 12:40:00 Test Item Value Reference Range Comments WHITE BLOOD CELL COUNT (BEAKER) (test fwsw=775) 8.4 K/ L 3.5-10.5 RED BLOOD CELL COUNT (BEAKER) (test tjkp=245) 3.83 M/ L 4.63-6.08 HEMOGLOBIN (BEAKER) (test mpxu=011) 11.3 GM/DL 13.7-17.5 HEMATOCRIT (BEAKER) (test jool=161) 35.6 % 40.1-51.0 MEAN CORPUSCULAR VOLUME (BEAKER) (test rggr=633) 93.0 fL 79.0-92.2 MEAN CORPUSCULAR HEMOGLOBIN (BEAKER) (test 29.5 pg 25.7-32.2 xvem=184) MEAN CORPUSCULAR HEMOGLOBIN CONC (BEAKER) (test 31.7 GM/DL 32.3-36.5 zuie=202) RED CELL DISTRIBUTION WIDTH (BEAKER) (test 14.6 % 11.6-14.4 yjxi=528) PLATELET COUNT (BEAKER) (test wwof=940) 302 K/CU MM 150-450 MEAN PLATELET VOLUME (BEAKER) (test smct=362) 8.7 fL 9.4-12.4 NUCLEATED RED BLOOD CELLS (BEAKER) (test 0 /100 WBC 0-0 tytf=015) NEUTROPHILS RELATIVE PERCENT (BEAKER) (test 71 % yiay=662) LYMPHOCYTES RELATIVE PERCENT (BEAKER) (test 17 % jtqk=777) MONOCYTES RELATIVE PERCENT (BEAKER) (test 8 % mrct=172) EOSINOPHILS RELATIVE PERCENT (BEAKER) (test 3 % lwbh=468) BASOPHILS RELATIVE PERCENT (BEAKER) (test 0 % aepj=942) NEUTROPHILS ABSOLUTE COUNT (BEAKER) (test 6.02 K/ L 1.78-5.38 kzoi=199) LYMPHOCYTES ABSOLUTE COUNT (BEAKER) (test 1.40 K/ L 1.32-3.57 pocx=186) MONOCYTES ABSOLUTE COUNT (BEAKER) (test 0.68 K/ L 0.30-0.82 uras=819) EOSINOPHILS ABSOLUTE COUNT (BEAKER) (test 0.27 K/ L 0.04-0.54 epam=804) BASOPHILS ABSOLUTE COUNT (BEAKER) (test 0.03 K/ L 0.01-0.08 qmtj=643) IMMATURE GRANULOCYTES-RELATIVE PERCENT (BEAKER) 0 % 0-1 (test wstx=8006) BASIC METABOLIC [id number] 05:19:00 Test Item Value Reference Range Comments SODIUM (BEAKER) (test 135 meq/L 136-145 hxlu=947) POTASSIUM (BEAKER) (test 4.0 meq/L 3.5-5.1 tlob=301) CHLORIDE (BEAKER) (test 107 meq/L 98-107 ypmh=567) CO2 (BEAKER) (test 22 meq/L 22-29 ofyn=774) BLOOD UREA NITROGEN 17 mg/dL 7-21 (BEAKER) (test wqea=021) CREATININE (BEAKER) (test 1.98 mg/dL 0.57-1.25 qsrs=937) GLUCOSE RANDOM (BEAKER) 125 mg/dL 70-105 (test syll=870) CALCIUM (BEAKER) (test 8.2 mg/dL 8.4-10.2 vhcc=905) EGFR (BEAKER) (test 34 mL/min/1.73 sq m ESTIMATED GFR IS NOT mzgq=8001) ACCURATE CREATININE CLEARANCE IN PREDICTING GLOMERULAR FILTRATION RATE. ESTIMATED GFR IS NOT APPLICABLE FOR DIALYSIS PATIENTS. BASIC METABOLIC [id number] 07:26:00 Test Item Value Reference Range Comments SODIUM (BEAKER) (test 133 meq/L 136-145 wqto=414) POTASSIUM (BEAKER) (test 4.0 meq/L 3.5-5.1 ofzb=195) CHLORIDE (BEAKER) (test 102 meq/L 98-107 kumq=907) CO2 (BEAKER) (test 24 meq/L 22-29 debu=567) BLOOD UREA NITROGEN 13 mg/dL 7-21 (BEAKER) (test fozy=751) CREATININE (BEAKER) (test 2.04 mg/dL 0.57-1.25 ztgn=470) GLUCOSE RANDOM (BEAKER) 120 mg/dL 70-105 (test buhr=427) CALCIUM (BEAKER) (test 8.3 mg/dL 8.4-10.2 izrb=458) EGFR (BEAKER) (test 33 mL/min/1.73 sq m ESTIMATED GFR IS NOT paya=2859) ACCURATE CREATININE CLEARANCE IN PREDICTING GLOMERULAR FILTRATION RATE. ESTIMATED GFR IS NOT APPLICABLE FOR DIALYSIS PATIENTS. CBC W/PLT COUNT & AUTO [id number] 06:36:00 Test Item Value Reference Range Comments WHITE BLOOD CELL COUNT (BEAKER) (test bsfy=850) 9.7 K/ L 3.5-10.5 RED BLOOD CELL COUNT (BEAKER) (test sbga=566) 3.65 M/ L 4.63-6.08 HEMOGLOBIN (BEAKER) (test pitt=313) 11.2 GM/DL 13.7-17.5 HEMATOCRIT (BEAKER) (test qdnh=076) 33.7 % 40.1-51.0 MEAN CORPUSCULAR VOLUME (BEAKER) (test lkzp=766) 92.3 fL 79.0-92.2 MEAN CORPUSCULAR HEMOGLOBIN (BEAKER) (test 30.7 pg 25.7-32.2 xwxa=369) MEAN CORPUSCULAR HEMOGLOBIN CONC (BEAKER) (test 33.2 GM/DL 32.3-36.5 cpej=521) RED CELL DISTRIBUTION WIDTH (BEAKER) (test 14.4 % 11.6-14.4 zghm=121) PLATELET COUNT (BEAKER) (test ijkv=507) 214 K/CU MM 150-450 MEAN PLATELET VOLUME (BEAKER) (test uxpm=582) 8.8 fL 9.4-12.4 NUCLEATED RED BLOOD CELLS (BEAKER) (test 0 /100 WBC 0-0 vdok=245) NEUTROPHILS RELATIVE PERCENT (BEAKER) (test 78 % sijn=842) LYMPHOCYTES RELATIVE PERCENT (BEAKER) (test 11 % dqlu=706) MONOCYTES RELATIVE PERCENT (BEAKER) (test 9 % wyyo=637) EOSINOPHILS RELATIVE PERCENT (BEAKER) (test 1 % hkmf=421) BASOPHILS RELATIVE PERCENT (BEAKER) (test 1 % vxgh=736) NEUTROPHILS ABSOLUTE COUNT (BEAKER) (test 7.51 K/ L 1.78-5.38 dtcm=703) LYMPHOCYTES ABSOLUTE COUNT (BEAKER) (test 1.09 K/ L 1.32-3.57 xbfh=476) MONOCYTES ABSOLUTE COUNT (BEAKER) (test 0.83 K/ L 0.30-0.82 cspl=644) EOSINOPHILS ABSOLUTE COUNT (BEAKER) (test 0.14 K/ L 0.04-0.54 bykl=159) BASOPHILS ABSOLUTE COUNT (BEAKER) (test 0.05 K/ L 0.01-0.08 linf=380) IMMATURE GRANULOCYTES-RELATIVE PERCENT (BEAKER) 1 % 0-1 (test sldi=8664) LIPID [id number] 07:15:00 Test Item Value Reference Range Comments TRIGLYCERIDES (BEAKER) (test sany=808) 65 mg/dL CHOLESTEROL (BEAKER) (test rppr=873) 129 mg/dL HDL CHOLESTEROL (BEAKER) (test pdcm=362) 30 mg/dL LDL CHOLESTEROL CALCULATED (BEAKER) (test 86 mg/dL ohvh=770) Triglyceride Reference Range: Low Risk <150 Borderline 150- 199 High Risk 200-499 Very High Risk >=500Cholesterol Reference Range: Low Risk <200 Borderline 200-239 High Risk > 240HDL Cholesterol Reference Range: Low Risk >=60 High Risk <40LDL Cholesterol Reference Range: Optimal <100 Near Optimal 100-129 Borderline 130-159 High 160-189 Very High >=190BASIC METABOLIC [id number] 07:15:00 Test Item Value Reference Range Comments SODIUM (BEAKER) (test 138 meq/L 136-145 hodt=445) POTASSIUM (BEAKER) (test 4.3 meq/L 3.5-5.1 xkjj=878) CHLORIDE (BEAKER) (test 108 meq/L 98-107 gxno=069) CO2 (BEAKER) (test 24 meq/L 22-29 ljus=887) BLOOD UREA NITROGEN 13 mg/dL 7-21 (BEAKER) (test thlu=187) CREATININE (BEAKER) (test 1.86 mg/dL 0.57-1.25 royv=425) GLUCOSE RANDOM (BEAKER) 90 mg/dL 70-105 (test hnjb=619) CALCIUM (BEAKER) (test 8.8 mg/dL 8.4-10.2 zbua=033) EGFR (BEAKER) (test 37 mL/min/1.73 sq m ESTIMATED GFR IS NOT tvnj=1372) ACCURATE CREATININE CLEARANCE IN PREDICTING GLOMERULAR FILTRATION RATE. ESTIMATED GFR IS NOT APPLICABLE FOR DIALYSIS PATIENTS. CBC W/PLT COUNT & AUTO [id number] 06:52:00 Test Item Value Reference Range Comments WHITE BLOOD CELL COUNT (BEAKER) (test upse=201) 8.3 K/ L 3.5-10.5 RED BLOOD CELL COUNT (BEAKER) (test minv=399) 3.89 M/ L 4.63-6.08 HEMOGLOBIN (BEAKER) (test pvjk=504) 11.8 GM/DL 13.7-17.5 HEMATOCRIT (BEAKER) (test lgkx=679) 36.2 % 40.1-51.0 MEAN CORPUSCULAR VOLUME (BEAKER) (test dhmj=182) 93.1 fL 79.0-92.2 MEAN CORPUSCULAR HEMOGLOBIN (BEAKER) (test 30.3 pg 25.7-32.2 yuld=089) MEAN CORPUSCULAR HEMOGLOBIN CONC (BEAKER) (test 32.6 GM/DL 32.3-36.5 wfsb=661) RED CELL DISTRIBUTION WIDTH (BEAKER) (test 14.6 % 11.6-14.4 imzi=446) PLATELET COUNT (BEAKER) (test pmrz=930) 272 K/CU MM 150-450 MEAN PLATELET VOLUME (BEAKER) (test yrmk=840) 9.0 fL 9.4-12.4 NUCLEATED RED BLOOD CELLS (BEAKER) (test 0 /100 WBC 0-0 ptft=181) NEUTROPHILS RELATIVE PERCENT (BEAKER) (test 57 % bozt=894) LYMPHOCYTES RELATIVE PERCENT (BEAKER) (test 28 % zklv=647) MONOCYTES RELATIVE PERCENT (BEAKER) (test 10 % xxoq=867) EOSINOPHILS RELATIVE PERCENT (BEAKER) (test 5 % hnes=576) BASOPHILS RELATIVE PERCENT (BEAKER) (test 1 % kawo=800) NEUTROPHILS ABSOLUTE COUNT (BEAKER) (test 4.70 K/ L 1.78-5.38 dzhw=531) LYMPHOCYTES ABSOLUTE COUNT (BEAKER) (test 2.31 K/ L 1.32-3.57 sypa=157) MONOCYTES ABSOLUTE COUNT (BEAKER) (test 0.83 K/ L 0.30-0.82 hqus=407) EOSINOPHILS ABSOLUTE COUNT (BEAKER) (test 0.37 K/ L 0.04-0.54 avab=670) BASOPHILS ABSOLUTE COUNT (BEAKER) (test 0.07 K/ L 0.01-0.08 xlbu=735) IMMATURE GRANULOCYTES-RELATIVE PERCENT (BEAKER) 0 % 0-1 (test qzbz=2605) RAD, CHEST, 1 VIEW, NON [id number] 23:59:00Reason for exam:->pre opShould this be performed [...] MDReport Verified Date/Time: 05/17/2018 23:59:18 Reading Location: [facility] C013W Consult Reading Room 11 :59 [id number] 18:50:00 Test Item Value Reference Range Comments PROTIME (BEAKER) (test wrpm=581) 13.0 seconds 11.7-14.7 INR (BEAKER) (test kode=137) 1.0 <=5.9 PARTIAL THROMBOPLASTIN TIME (BEAKER) (test 30.3 seconds 22.5-36.0 vgkm=862) RECOMMENDED COUMADIN/WARFARIN INR THERAPY RANGESSTANDARD DOSE: 2.0 - 3.0 Includes: PROPHYLAXIS forvenous thrombosis, systemic embolization; TREATMENT for venous thrombosis and/or pulmonary embolus.HIGH RISK: Target INR is 2.5-3.5 for patients with mechanical heart valves.PROTHROMBIN [id number] 18:49: 00 Test Item Value Reference Range Comments PROTIME (BEAKER) (test qjsa=934) 13.0 seconds 11.7-14.7 INR (BEAKER) (test dfdg=894) 1.0 <=5.9 RECOMMENDED COUMADIN/WARFARIN INR THERAPY RANGESSTANDARD DOSE: 2.0 - 3.0 Includes: PROPHYLAXIS forvenous thrombosis, systemic embolization; TREATMENT for venous thrombosis and/or pulmonary embolus.HIGH RISK: Target INR is 2.5-3.5 for patients with mechanical heart valves.[id number] 18:40:00 Test Item Value Reference Range Comments PHOSPHORUS (BEAKER) (test qxtx=774) 3.0 mg/dL 2.3-4.7 [id number] 18:40:00 Test Item Value Reference Range Comments MAGNESIUM (BEAKER) (test hafy=415) 2.1 mg/dL 1.6-2.6 BASIC METABOLIC [id number] 18:40:00 Test Item Value Reference Range Comments SODIUM (BEAKER) (test 137 meq/L 136-145 jzez=152) POTASSIUM (BEAKER) (test 4.5 meq/L 3.5-5.1 rnnj=067) CHLORIDE (BEAKER) (test 105 meq/L 98-107 uhog=625) CO2 (BEAKER) (test 23 meq/L 22-29 isuz=506) BLOOD UREA NITROGEN 13 mg/dL 7-21 (BEAKER) (test xvlr=044) CREATININE (BEAKER) (test 1.81 mg/dL 0.57-1.25 goqh=002) GLUCOSE RANDOM (BEAKER) 87 mg/dL 70-105 (test qrbx=452) CALCIUM (BEAKER) (test 9.3 mg/dL 8.4-10.2 pndu=191) EGFR (BEAKER) (test 38 mL/min/1.73 sq m ESTIMATED GFR IS NOT kxcm=3093) ACCURATE CREATININE CLEARANCE IN PREDICTING GLOMERULAR FILTRATION RATE. ESTIMATED GFR IS NOT APPLICABLE FOR DIALYSIS PATIENTS. HEPATIC FUNCTION [id number] 18:40:00 Test Item Value Reference Range Comments TOTAL PROTEIN (BEAKER) (test hepm=752) 7.1 gm/dL 6.0-8.3 ALBUMIN (BEAKER) (test pvwc=8023) 3.9 g/dL 3.5-5.0 BILIRUBIN TOTAL (BEAKER) (test sxve=141) 0.3 mg/dL 0.2-1.2 BILIRUBIN DIRECT (BEAKER) (test xrnv=654) 0.1 mg/dL 0.1-0.5 ALKALINE PHOSPHATASE (BEAKER) (test ueok=100) 93 U/L 40-150 AST (SGOT) (BEAKER) (test wrqv=395) 16 U/L 5-34 ALT (SGPT) (BEAKER) (test lcvj=960) 11 U/L 6-55 CBC W/PLT COUNT & AUTO [id number] 18:25:00 Test Item Value Reference Range Comments WHITE BLOOD CELL COUNT (BEAKER) (test mhsy=333) 10.6 K/ L 3.5-10.5 RED BLOOD CELL COUNT (BEAKER) (test mwuh=304) 4.59 M/ L 4.63-6.08 HEMOGLOBIN (BEAKER) (test pwmm=719) 13.8 GM/DL 13.7-17.5 HEMATOCRIT (BEAKER) (test dsnf=422) 42.3 % 40.1-51.0 MEAN CORPUSCULAR VOLUME (BEAKER) (test hrnn=084) 92.2 fL 79.0-92.2 MEAN CORPUSCULAR HEMOGLOBIN (BEAKER) (test 30.1 pg 25.7-32.2 pjyt=906) MEAN CORPUSCULAR HEMOGLOBIN CONC (BEAKER) (test 32.6 GM/DL 32.3-36.5 hdwz=131) RED CELL DISTRIBUTION WIDTH (BEAKER) (test 14.7 % 11.6-14.4 pzbu=143) PLATELET COUNT (BEAKER) (test ejwe=430) 313 K/CU MM 150-450 MEAN PLATELET VOLUME (BEAKER) (test zgwr=010) 8.8 fL 9.4-12.4 NUCLEATED RED BLOOD CELLS (BEAKER) (test 0 /100 WBC 0-0 kbal=308) NEUTROPHILS RELATIVE PERCENT (BEAKER) (test 74 % gvdm=432) LYMPHOCYTES RELATIVE PERCENT (BEAKER) (test 16 % heeo=439) MONOCYTES RELATIVE PERCENT (BEAKER) (test 7 % pqdd=086) EOSINOPHILS RELATIVE PERCENT (BEAKER) (test 2 % oepn=277) BASOPHILS RELATIVE PERCENT (BEAKER) (test 1 % ntqq=169) NEUTROPHILS ABSOLUTE COUNT (BEAKER) (test 7.87 K/ L 1.78-5.38 ddsu=604) LYMPHOCYTES ABSOLUTE COUNT (BEAKER) (test 1.70 K/ L 1.32-3.57 qyin=674) MONOCYTES ABSOLUTE COUNT (BEAKER) (test 0.79 K/ L 0.30-0.82 bfik=005) EOSINOPHILS ABSOLUTE COUNT (BEAKER) (test 0.20 K/ L 0.04-0.54 lyqu=306) BASOPHILS ABSOLUTE COUNT (BEAKER) (test 0.05 K/ L 0.01-0.08 zjbp=421) IMMATURE GRANULOCYTES-RELATIVE PERCENT (BEAKER) 0 % 0-1 (test zzvo=7465) TISSUE [id number] 14:40:00Surgical Pathology Report Case: [id number] Authorizing Provider: Faid Philippe MD Collected: 02/06/2018 5058 Ordering Location: [address] Received: 02/07/2018 1034 Service Pathologist: Yuridia Mercer MD Specimens: A) - Polyp, Colon - Right/Ascending, taken via hot snare B) -Mass, Bx of Rectal mass via forcep The addendum is issued to report the results of molecular tests performed at [facility]. RESULTS: - There is a mutationin the [...] developed and its performance characteristics determined by [facility], Pathology Laboratory. It has not been cleared [...] complexity clinical laboratory testing. Added CPT codes: 32607, 98066 x3 This email and attachments contain information [...] or other confidentiality protections.Addendum electronically signed by Yurdiia Mercer MD on 03/09/2018 at 1:01 PMA. RIGHT/ASCENDING COLON, BIOPSY: - TUBULAR ADENOMA - LYMPHOID AGGREGATES/FOLLICLES - NEGATIVE FORHIGH GRADE DYSPLASIAB. RECTUM, BIOPSY OF MASS: - INVASIVE MODERATELY DIFFERENTIATED ADENOCARCINOMA, COLONIC TYPE, ULCERATEDCC/pl Signing Pathologist Direct Phone Line: [phone] by Yuridia Mercer MD on 02/08 at 10:08 [id number]. Right ascending colon polyp; B. Rectal mass [...] reactive changes are also present.CT, LIMITED/ LOCALIZED [id number] 08:10:00Request liver biopsy Reason for exam:-> liver mass, need biopsy Should this be performed at the bedside?->NoAddendum BeginsREPORT STATUS:A This exam was performed according to our departmental dose optimization program which includes automated exposure control, adjustment of the mA and/or kV according to patient size and/or use of iterative reconstructive technique. Signed: Tung Wise MDReport Verified Date/ Time: 02/27/2018 08:10:53 Reading Location: [facility] Diagnostic Imaging Reading Room - [place] [address]Addendum EndsFINAL REPORT History: Liver masses COMPARISON: CT dated 02/09/2018 and an ultrasound dated 02/13/2018 DISCUSSION: The hepatic lesions were unable to be previously seen under ultrasound and therefore, the patient was sent to CT for potential biopsy under CT guidance. A cloth washer operator image was obtained prior to the biopsy procedure. The previously seen nodular foci within the liver are not well delineated on the cloth washer operator images. Some poorly seen hypodense foci are [...] Date/Time: 02/14/2018 16: 38:16 Reading Location: [facility] C013Y CT Body ReadingRoom FINE NEEDLE ASPIRATION BY [id number] 14:34:00Medical Cytology Report Case: [id number] Authorizing Provider: Fadi Philippe MD Collected: 02/15/2018 1103 Ordering Location: [address] Received: 02/16/2018 0959 Service Pathologist: Yas Townsend Specimen: Liver, Liver mass FNA in CRR for cytology LIVER MASS FNA BYCLINICIAN ( CYTOSPINS AND CELL BLOCK OF ASPIRATE): - POSITIVE FOR MALIGNANCY, MORPHOLOGICALLY COMPATIBLE WITH RECTAL CARCINOMA PRIMARY Signing Pathologist Direct Phone Line: [phone] signed by Yas Townsend on 02/17/2018 at 2:34 PMCytospins show clusters of benign appearing hepatocytes. The cell block show predominantly hepatic parenchyma with a focal attached area ofatypical glands with hyperchromatic and pleomorphic nuclei. The previous case, [id number] is reviewed and shows similar features.Intradepartmental Consultation: Noy Bailey MD has reviewed the case andagrees with the findings.41023, 87649(1.3 x 0.9 cm) round mass in the left lobe of the liver, recently diagnosed with rectal cancer(see [id number])LIVER MASS FNA27 mls in cytorich red; 4 cytospins, cellblockCollected: [id number] : [id number] [facility], Department of Pathology, [address] [place] [address], [facility], [address] [place] [address], Tel ANG, TUNNEL CATH CENTRAL INS W/PORT [id number] 18:32:00Reason for exam:-&gt ;chemotherapyFINAL REPORT Right internal jugular chest port insertion History: Patient requires access for chemotherapy. Modality: Sonography and fluoroscopy. Sedation: Versed 1.5 mg and fentanyl 75 mcg given intravenously forconscious sedation. Vital signs were monitored throughout the procedure by a nurse, and remained stable. Physician intra-service time was 25 minutes. Stippler: Vaughn Ninaistant: Jose Martin. Approach: Right internal jugularvein Estimated [...] needle into the right atrium. A 4 Hungarian micropuncture sheath was placed. A subcutaneous tunnel [...] MDReport Verified Date/Time: 02/16/2018 18:32:11 Reading Location: [place] [address] Angio Body Reading Room TISSUE [id number] 15:01: 00Surgical Pathology Report Case: [id number] Authorizing Provider: Fadi Philippe MD Collected : 02/15/2018 1055 Ordering Location: [address] Received: 02/15/2018 1604 Service Pathologist: Timothy Mendoza MD Specimen: Liver, Liver Mass LIVER MASS, ULTRASOUND-GUIDED CORE NEEDLE BIOPSY: - FRAGMENTED CORES OF BENIGN LIVER PARENCHYMA - MINIMAL STEATOSIS (LESS THAN 1% ) - MINIMAL PERIPORTAL FIBROSIS - NEGATIVE FOR MALIGNANCY (SEE COMMENT) Signing Pathologist Direct Phone Line: [phone] signed by Timothy Mendoza MD on 02/16/2018 at 3:01 PMClinical and radiographic correlation is recommended to determine if this represents the lesion.13266, 90989 x 2Rectal cancerLiver massThe specimen is received [...] report above: trichrome, reticulin.FINE NEEDLE ASPIRATE (FNA) [id number] 11:00:00 Test Item Value Reference Range Comments CYTOLOGY RESULT POINTER (BEAKER) (test See Separate Report ahpy=9671) BASIC METABOLIC [id number] 06:09:00 Test Item Value Reference Range Comments SODIUM (BEAKER) (test 141 meq/L 136-145 ryvl=081) POTASSIUM (BEAKER) (test 4.0 meq/L 3.5-5.1 sumo=659) CHLORIDE (BEAKER) (test 112 meq/L 98-107 cxir=591) CO2 (BEAKER) (test 23 meq/L 22-29 mjdg=031) BLOOD UREA NITROGEN 14 mg/dL 7-21 (BEAKER) (test ltcr=255) CREATININE (BEAKER) (test 1.57 mg/dL 0.57-1.25 ittq=637) GLUCOSE RANDOM (BEAKER) 109 mg/dL 70-105 (test ddvc=258) CALCIUM (BEAKER) (test 8.3 mg/dL 8.4-10.2 oftz=797) EGFR (BEAKER) (test 45 mL/min/1.73 sq m ESTIMATED GFR IS NOT tauk=0470) ACCURATE CREATININE CLEARANCE IN PREDICTING GLOMERULAR FILTRATION RATE. ESTIMATED GFR IS NOT APPLICABLE FOR DIALYSIS PATIENTS. CBC (HEMOGRAM ONLY)2018-02-16 05:41:00 Test Item Value Reference Range Comments WHITE BLOOD CELL COUNT (BEAKER) (test lsps=429) 6.6 K/ L 3.5-10.5 RED BLOOD CELL COUNT (BEAKER) (test yisl=903) 2.98 M/ L 4.63-6.08 HEMOGLOBIN (BEAKER) (test ydoc=883) 8.9 GM/DL 13.7-17.5 HEMATOCRIT (BEAKER) (test lxko=375) 28.6 % 40.1-51.0 MEAN CORPUSCULAR VOLUME (BEAKER) (test orcu=868) 96.0 fL 79.0-92.2 MEAN CORPUSCULAR HEMOGLOBIN (BEAKER) (test 29.9 pg 25.7-32.2 gfii=907) MEAN CORPUSCULAR HEMOGLOBIN CONC (BEAKER) (test 31.1 GM/DL 32.3-36.5 vphh=209) RED CELL DISTRIBUTION WIDTH (BEAKER) (test 14.7 % 11.6-14.4 knds=487) PLATELET COUNT (BEAKER) (test fdck=238) 206 K/CU MM 150-450 MEAN PLATELET VOLUME (BEAKER) (test ghjm=788) 8.9 fL 9.4-12.4 NUCLEATED RED BLOOD CELLS (BEAKER) (test 0 /100 WBC 0-0 kdkq=427) BASIC METABOLIC [id number] 05:52:00 Test Item Value Reference Range Comments SODIUM (BEAKER) (test 141 meq/L 136-145 ghvo=150) POTASSIUM (BEAKER) (test 4.1 meq/L 3.5-5.1 pblt=493) CHLORIDE (BEAKER) (test 110 meq/L 98-107 jdvz=550) CO2 (BEAKER) (test 25 meq/L 22-29 tbpx=910) BLOOD UREA NITROGEN 14 mg/dL 7-21 (BEAKER) (test jlxl=544) CREATININE (BEAKER) (test 1.82 mg/dL 0.57-1.25 wgju=325) GLUCOSE RANDOM (BEAKER) 118 mg/dL 70-105 (test xyzu=423) CALCIUM (BEAKER) (test 8.5 mg/dL 8.4-10.2 zhal=560) EGFR (BEAKER) (test 38 mL/min/1.73 sq m ESTIMATED GFR IS NOT ngbk=7999) ACCURATE CREATININE CLEARANCE IN PREDICTING GLOMERULAR FILTRATION RATE. ESTIMATED GFR IS NOT APPLICABLE FOR DIALYSIS PATIENTS. CBC (HEMOGRAM ONLY)2018-02-15 05:12:00 Test Item Value Reference Range Comments WHITE BLOOD CELL COUNT (BEAKER) (test vnct=281) 7.2 K/ L 3.5-10.5 RED BLOOD CELL COUNT (BEAKER) (test olou=584) 2.94 M/ L 4.63-6.08 HEMOGLOBIN (BEAKER) (test onlh=225) 8.7 GM/DL 13.7-17.5 HEMATOCRIT (BEAKER) (test cpdh=282) 28.2 % 40.1-51.0 MEAN CORPUSCULAR VOLUME (BEAKER) (test htje=900) 95.9 fL 79.0-92.2 MEAN CORPUSCULAR HEMOGLOBIN (BEAKER) (test 29.6 pg 25.7-32.2 vung=372) MEAN CORPUSCULAR HEMOGLOBIN CONC (BEAKER) (test 30.9 GM/DL 32.3-36.5 hkxc=957) RED CELL DISTRIBUTION WIDTH (BEAKER) (test 14.8 % 11.6-14.4 okkt=281) PLATELET COUNT (BEAKER) (test pvzs=125) 227 K/CU MM 150-450 MEAN PLATELET VOLUME (BEAKER) (test mfyy=976) 9.2 fL 9.4-12.4 NUCLEATED RED BLOOD CELLS (BEAKER) (test 0 /100 WBC 0-0 mtks=569) U/S, ABDOMINAL, [id number] 07:47:00Reason for exam:->liver massFINAL REPORT Ultrasound of abdomen, limited INDICATION: Liver mass COMPARISON: CT dated February 09, 2018 FINDINGS: Sonographic evaluation of the liver is performed in preparationfor biopsy of liver lesion seen on recent CT. However, no focal lesion is identified on ultrasound and biopsy was not performed. Signed: Joanne Diazeport Verified Date/Time: 02/14/2018 07:47:16 Reading Location: [facility] Radiology Reading Room Electronically signed by: JOANNE DIAZ M.D. on02/14/2018 07:47 AMBASIC METABOLIC [id number] 06:19:00 Test Item Value Reference Range Comments SODIUM (BEAKER) (test 140 meq/L 136-145 vdcl=778) POTASSIUM (BEAKER) (test 3.9 meq/L 3.5-5.1 ryse=807) CHLORIDE (BEAKER) (test 110 meq/L 98-107 mfjt=414) CO2 (BEAKER) (test 24 meq/L 22-29 ubxt=769) BLOOD UREA NITROGEN 15 mg/dL 7-21 (BEAKER) (test rqbp=485) CREATININE (BEAKER) (test 1.61 mg/dL 0.57-1.25 dhbj=724) GLUCOSE RANDOM (BEAKER) 105 mg/dL 70-105 (test tpze=176) CALCIUM (BEAKER) (test 8.2 mg/dL 8.4-10.2 mshr=805) EGFR (BEAKER) (test 44 mL/min/1.73 sq m ESTIMATED GFR IS NOT vkzg=9080) ACCURATE CREATININE CLEARANCE IN PREDICTING GLOMERULAR FILTRATION RATE. ESTIMATED GFR IS NOT APPLICABLE FOR DIALYSIS PATIENTS. CBC (HEMOGRAM ONLY)2018-02-14 05:42:00 Test Item Value Reference Range Comments WHITE BLOOD CELL COUNT (BEAKER) (test exvq=171) 7.6 K/ L 3.5-10.5 RED BLOOD CELL COUNT (BEAKER) (test vnjl=741) 2.83 M/ L 4.63-6.08 HEMOGLOBIN (BEAKER) (test hmly=713) 8.3 GM/DL 13.7-17.5 HEMATOCRIT (BEAKER) (test mlnp=480) 26.9 % 40.1-51.0 MEAN CORPUSCULAR VOLUME (BEAKER) (test ojtp=292) 95.1 fL 79.0-92.2 MEAN CORPUSCULAR HEMOGLOBIN (BEAKER) (test 29.3 pg 25.7-32.2 apak=780) MEAN CORPUSCULAR HEMOGLOBIN CONC (BEAKER) (test 30.9 GM/DL 32.3-36.5 dkua=293) RED CELL DISTRIBUTION WIDTH (BEAKER) (test 14.6 % 11.6-14.4 vlid=042) PLATELET COUNT (BEAKER) (test wdos=320) 252 K/CU MM 150-450 MEAN PLATELET VOLUME (BEAKER) (test urna=549) 9.2 fL 9.4-12.4 NUCLEATED RED BLOOD CELLS (BEAKER) (test 0 /100 WBC 0-0 ntfc=997) PROTEIN ELECTROPHORESIS, [id number] 14:00:00 Test Item Value Reference Range Comments ALBUMIN FRACTION (BEAKER) 2.6 g/dL 3.5-5.5 (test dfbj=413) ALPHA 1 FRACTION (BEAKER) 0.2 g/dL 0.2-0.4 (test snzz=453) ALPHA 2 FRACTION (BEAKER) 0.6 g/dL 0.5-0.9 (test cpos=421) BETA FRACTION (BEAKER) (test 0.9 g/dL 0.6-1.1 sxeu=732) GAMMA GLOBULIN FRACTION 0.7 g/dL 0.7-1.7 (BEAKER) (test srcc=611) INTERPRETATION-119 (BEAKER) Decreased albumin, suggestive of (test crgh=4616) protein loss. Pattern otherwise consistent with mild acute inflammatory response. No monoclonal bands detected. [id number] Lilly Harris MD (BEAKER) (test yobq=9204) (electronic signature) PROTEIN TOTAL SERUM, SPEP 5.0 gm/dL 6.0-8.3 (BEAKER) (test pwjm=1459) BASIC METABOLIC [id number] 05:12:00 Test Item Value Reference Range Comments SODIUM (BEAKER) (test 140 meq/L 136-145 ylmo=677) POTASSIUM (BEAKER) (test 3.8 meq/L 3.5-5.1 jlbw=541) CHLORIDE (BEAKER) (test 111 meq/L 98-107 cjdl=404) CO2 (BEAKER) (test 24 meq/L 22-29 mfyc=765) BLOOD UREA NITROGEN 14 mg/dL 7-21 (BEAKER) (test tfjh=110) CREATININE (BEAKER) (test 1.56 mg/dL 0.57-1.25 rftj=672) GLUCOSE RANDOM (BEAKER) 104 mg/dL 70-105 (test fnqi=705) CALCIUM (BEAKER) (test 8.2 mg/dL 8.4-10.2 vkik=939) EGFR (BEAKER) (test 45 mL/min/1.73 sq m ESTIMATED GFR IS NOT dtks=3176) ACCURATE CREATININE CLEARANCE IN PREDICTING GLOMERULAR FILTRATION RATE. ESTIMATED GFR IS NOT APPLICABLE FOR DIALYSIS PATIENTS. PT/[id number] 04:59:00 Test Item Value Reference Range Comments PROTIME (BEAKER) (test uygq=864) 14.5 seconds 11.7-14.7 INR (BEAKER) (test zgoz=171) 1.1 <=5.9 PARTIAL THROMBOPLASTIN TIME (BEAKER) (test 37.1 seconds 22.5-36.0 omqm=571) RECOMMENDED COUMADIN/WARFARIN INR THERAPY RANGESSTANDARD DOSE: 2.0 - 3.0 Includes: PROPHYLAXIS forvenous thrombosis, systemic embolization; TREATMENT for venous thrombosis and/or pulmonary embolus.HIGH RISK: Target INR is 2.5-3.5 for patients with mechanical heart valves.CBC (HEMOGRAM ONLY)2018-02-13 04:49:00 Test Item Value Reference Range Comments WHITE BLOOD CELL COUNT (BEAKER) (test tjlb=695) 8.9 K/ L 3.5-10.5 RED BLOOD CELL COUNT (BEAKER) (test wwyw=292) 2.95 M/ L 4.63-6.08 HEMOGLOBIN (BEAKER) (test vreu=575) 8.7 GM/DL 13.7-17.5 HEMATOCRIT (BEAKER) (test udha=008) 27.9 % 40.1-51.0 MEAN CORPUSCULAR VOLUME (BEAKER) (test wfmm=880) 94.6 fL 79.0-92.2 MEAN CORPUSCULAR HEMOGLOBIN (BEAKER) (test 29.5 pg 25.7-32.2 esux=823) MEAN CORPUSCULAR HEMOGLOBIN CONC (BEAKER) (test 31.2 GM/DL 32.3-36.5 uses=564) RED CELL DISTRIBUTION WIDTH (BEAKER) (test 14.5 % 11.6-14.4 sktr=010) PLATELET COUNT (BEAKER) (test limx=092) 264 K/CU MM 150-450 MEAN PLATELET VOLUME (BEAKER) (test rfyl=514) 9.1 fL 9.4-12.4 NUCLEATED RED BLOOD CELLS (BEAKER) (test 0 /100 WBC 0-0 sxai=683) BASIC METABOLIC [id number] 06:13:00 Test Item Value Reference Range Comments SODIUM (BEAKER) (test 140 meq/L 136-145 gvgq=332) POTASSIUM (BEAKER) (test 3.9 meq/L 3.5-5.1 tfhb=381) CHLORIDE (BEAKER) (test 111 meq/L 98-107 elby=018) CO2 (BEAKER) (test 23 meq/L 22-29 telx=712) BLOOD UREA NITROGEN 12 mg/dL 7-21 (BEAKER) (test fmda=594) CREATININE (BEAKER) (test 1.50 mg/dL 0.57-1.25 pbjf=248) GLUCOSE RANDOM (BEAKER) 100 mg/dL 70-105 (test axmo=949) CALCIUM (BEAKER) (test 8.0 mg/dL 8.4-10.2 fwtg=527) EGFR (BEAKER) (test 47 mL/min/1.73 sq m ESTIMATED GFR IS NOT hoay=0750) ACCURATE CREATININE CLEARANCE IN PREDICTING GLOMERULAR FILTRATION RATE. ESTIMATED GFR IS NOT APPLICABLE FOR DIALYSIS PATIENTS. CBC (HEMOGRAM ONLY)2018-02-12 05:35:00 Test Item Value Reference Range Comments WHITE BLOOD CELL COUNT (BEAKER) (test jjxc=887) 9.1 K/ L 3.5-10.5 RED BLOOD CELL COUNT (BEAKER) (test nsiy=052) 2.89 M/ L 4.63-6.08 HEMOGLOBIN (BEAKER) (test jpxb=628) 8.5 GM/DL 13.7-17.5 HEMATOCRIT (BEAKER) (test ynou=943) 27.2 % 40.1-51.0 MEAN CORPUSCULAR VOLUME (BEAKER) (test efge=685) 94.1 fL 79.0-92.2 MEAN CORPUSCULAR HEMOGLOBIN (BEAKER) (test 29.4 pg 25.7-32.2 epyt=238) MEAN CORPUSCULAR HEMOGLOBIN CONC (BEAKER) (test 31.3 GM/DL 32.3-36.5 duer=490) RED CELL DISTRIBUTION WIDTH (BEAKER) (test 14.2 % 11.6-14.4 dgqd=381) PLATELET COUNT (BEAKER) (test pbci=915) 295 K/CU MM 150-450 MEAN PLATELET VOLUME (BEAKER) (test ctca=079) 9.1 fL 9.4-12.4 NUCLEATED RED BLOOD CELLS (BEAKER) (test 0 /100 WBC 0-0 vobe=312) BASIC METABOLIC [id number] 06:06:00 Test Item Value Reference Range Comments SODIUM (BEAKER) (test 143 meq/L 136-145 oeck=246) POTASSIUM (BEAKER) (test 3.9 meq/L 3.5-5.1 xmss=068) CHLORIDE (BEAKER) (test 113 meq/L 98-107 srpm=073) CO2 (BEAKER) (test 25 meq/L 22-29 ohmw=826) BLOOD UREA NITROGEN 12 mg/dL 7-21 (BEAKER) (test fhfw=239) CREATININE (BEAKER) (test 1.79 mg/dL 0.57-1.25 gesf=542) GLUCOSE RANDOM (BEAKER) 109 mg/dL 70-105 (test lwkf=366) CALCIUM (BEAKER) (test 8.0 mg/dL 8.4-10.2 wieu=997) EGFR (BEAKER) (test 39 mL/min/1.73 sq m ESTIMATED GFR IS NOT fwrf=3256) ACCURATE CREATININE CLEARANCE IN PREDICTING GLOMERULAR FILTRATION RATE. ESTIMATED GFR IS NOT APPLICABLE FOR DIALYSIS PATIENTS. CBC (HEMOGRAM ONLY)2018-02-11 05:09:00 Test Item Value Reference Range Comments WHITE BLOOD CELL COUNT (BEAKER) (test ldwd=457) 6.3 K/ L 3.5-10.5 RED BLOOD CELL COUNT (BEAKER) (test ngya=805) 2.75 M/ L 4.63-6.08 HEMOGLOBIN (BEAKER) (test vjvq=498) 8.1 GM/DL 13.7-17.5 HEMATOCRIT (BEAKER) (test qnus=772) 25.8 % 40.1-51.0 MEAN CORPUSCULAR VOLUME (BEAKER) (test pbnc=116) 93.8 fL 79.0-92.2 MEAN CORPUSCULAR HEMOGLOBIN (BEAKER) (test 29.5 pg 25.7-32.2 fwkr=667) MEAN CORPUSCULAR HEMOGLOBIN CONC (BEAKER) (test 31.4 GM/DL 32.3-36.5 cvor=478) RED CELL DISTRIBUTION WIDTH (BEAKER) (test 14.4 % 11.6-14.4 wtvp=168) PLATELET COUNT (BEAKER) (test hpae=418) 301 K/CU MM 150-450 MEAN PLATELET VOLUME (BEAKER) (test otoa=538) 8.9 fL 9.4-12.4 NUCLEATED RED BLOOD CELLS (BEAKER) (test 0 /100 WBC 0-0 hahv=301) [id number] 18:24:00 Test Item Value Reference Range Comments FERRITIN (BEAKER) (test vbkd=552) 36 ng/mL 5-275 VITAMIN D, [id number] 10:53:00 Test Item Value Reference Range Comments VITAMIN D 25-OH (BEAKER) (test vkdf=2724) 10.7 ng/mL 6.6-49.9 Effective 02/02/2017: Reference Range ChangeNew: 6.6-49.9 ng/mL Previous: 13.0 -47.8 ng/mLRecommended Vitamin D Target Range: 30.0-40.0 ng/mLIRON, TIBC, % SAT. (WITHOUT FERRITIN)2018-02-10 08:06:00 Test Item Value Reference Range Comments IRON (BEAKER) (test zqbh=561) 26 ug/dL 40-160 TOTAL IRON BINDING CAPACITY (BEAKER) (test 274 ug/dL 250-450 ulto=989) IRON % SATURATION (2) (BEAKER) (test lfds=0691) 9 % 20-55 CARCINOEMBRYONIC ANTIGEN (CEA)2018-02-10 08:00:00 Test Item Value Reference Range Comments CARCINOEMBRYONIC ANTIGEN (BEAKER) (test ukin=791) 2.6 ng/mL 0.0-5.0 PTH, [id number] 07:29:00 Test Item Value Reference Range Comments PARATHYROID HORMONE INTACT (BEAKER) (test 78.6 pg/mL 8.5-72.5 scux=145) URIC [id number] 06:42:00 Test Item Value Reference Range Comments URIC ACID (BEAKER) (test tcfa=482) 6.2 mg/dL 2.6-7.2 BASIC METABOLIC [id number] 06:42:00 Test Item Value Reference Range Comments SODIUM (BEAKER) (test 140 meq/L 136-145 lgfq=831) POTASSIUM (BEAKER) (test 4.3 meq/L 3.5-5.1 mrxg=425) CHLORIDE (BEAKER) (test 110 meq/L 98-107 lsvx=549) CO2 (BEAKER) (test 24 meq/L 22-29 mhgl=063) BLOOD UREA NITROGEN 14 mg/dL 7-21 (BEAKER) (test tplr=192) CREATININE (BEAKER) (test 1.65 mg/dL 0.57-1.25 yvyc=582) GLUCOSE RANDOM (BEAKER) 109 mg/dL 70-105 (test ajmr=132) CALCIUM (BEAKER) (test 8.0 mg/dL 8.4-10.2 voov=483) EGFR (BEAKER) (test 42 mL/min/1.73 sq m ESTIMATED GFR IS NOT vkap=5090) ACCURATE CREATININE CLEARANCE IN PREDICTING GLOMERULAR FILTRATION RATE. ESTIMATED GFR IS NOT APPLICABLE FOR DIALYSIS PATIENTS. CBC (HEMOGRAM ONLY)2018-02-10 06:06:00 Test Item Value Reference Range Comments WHITE BLOOD CELL COUNT (BEAKER) (test lqkl=498) 7.6 K/ L 3.5-10.5 RED BLOOD CELL COUNT (BEAKER) (test qase=143) 2.90 M/ L 4.63-6.08 HEMOGLOBIN (BEAKER) (test lcvo=149) 8.6 GM/DL 13.7-17.5 HEMATOCRIT (BEAKER) (test zwzb=525) 27.6 % 40.1-51.0 MEAN CORPUSCULAR VOLUME (BEAKER) (test xrjz=610) 95.2 fL 79.0-92.2 MEAN CORPUSCULAR HEMOGLOBIN (BEAKER) (test 29.7 pg 25.7-32.2 fpjl=481) MEAN CORPUSCULAR HEMOGLOBIN CONC (BEAKER) (test 31.2 GM/DL 32.3-36.5 suug=315) RED CELL DISTRIBUTION WIDTH (BEAKER) (test 14.6 % 11.6-14.4 bdod=825) PLATELET COUNT (BEAKER) (test akem=826) 296 K/CU MM 150-450 MEAN PLATELET VOLUME (BEAKER) (test mfyg=885) 9.2 fL 9.4-12.4 NUCLEATED RED BLOOD CELLS (BEAKER) (test 0 /100 WBC 0-0 gzhn=147) CT, CHEST, WITH [id number] 00:28:00FINAL REPORT CT, CHEST, WITH CONTRAST, CT, [...] MDReport Verified Date/Time: 02/10/2018 00:28:46 Reading Location: [address] Body Reading Room CT, [id number] 00:28:00FINAL REPORT CT, CHEST, WITH CONTRAST, CT, [...] surveillance is suggested. Signed: JR Horta Robert [facility] Verified Date/Time: 02/10/2018 00:28:46 Reading Location: [facility] B1 C013Y CT Body Reading Room PROTEIN, RANDOM [id number] 18:49:00 Test Item Value Reference Range Comments PROTEIN, URINE (BEAKER) (test pocv=1046) < mg/dL 0-14 BASIC METABOLIC [id number] 06:59:00 Test Item Value Reference Range Comments SODIUM (BEAKER) (test 142 meq/L 136-145 xrwv=221) POTASSIUM (BEAKER) (test 4.4 meq/L 3.5-5.1 ywhk=574) CHLORIDE (BEAKER) (test 114 meq/L 98-107 vzrn=286) CO2 (BEAKER) (test 23 meq/L 22-29 grgs=000) BLOOD UREA NITROGEN 14 mg/dL 7-21 (BEAKER) (test efoz=971) CREATININE (BEAKER) (test 1.58 mg/dL 0.57-1.25 yhkc=116) GLUCOSE RANDOM (BEAKER) 95 mg/dL 70-105 (test jhjp=454) CALCIUM (BEAKER) (test 7.9 mg/dL 8.4-10.2 kmtk=353) EGFR (BEAKER) (test 45 mL/min/1.73 sq m ESTIMATED GFR IS NOT yibx=8535) ACCURATE CREATININE CLEARANCE IN PREDICTING GLOMERULAR FILTRATION RATE. ESTIMATED GFR IS NOT APPLICABLE FOR DIALYSIS PATIENTS. CBC (HEMOGRAM ONLY)2018-02-09 04:22:00 Test Item Value Reference Range Comments WHITE BLOOD CELL COUNT (BEAKER) (test vsjz=769) 7.9 K/ L 3.5-10.5 RED BLOOD CELL COUNT (BEAKER) (test ldzx=711) 2.81 M/ L 4.63-6.08 HEMOGLOBIN (BEAKER) (test sdoq=744) 8.5 GM/DL 13.7-17.5 HEMATOCRIT (BEAKER) (test ulst=470) 27.3 % 40.1-51.0 MEAN CORPUSCULAR VOLUME (BEAKER) (test sfon=383) 97.2 fL 79.0-92.2 MEAN CORPUSCULAR HEMOGLOBIN (BEAKER) (test 30.2 pg 25.7-32.2 pwev=866) MEAN CORPUSCULAR HEMOGLOBIN CONC (BEAKER) (test 31.1 GM/DL 32.3-36.5 mcdi=321) RED CELL DISTRIBUTION WIDTH (BEAKER) (test 14.9 % 11.6-14.4 aqis=068) PLATELET COUNT (BEAKER) (test fvso=102) 294 K/CU MM 150-450 MEAN PLATELET VOLUME (BEAKER) (test yieq=063) 9.4 fL 9.4-12.4 NUCLEATED RED BLOOD CELLS (BEAKER) (test 0 /100 WBC 0-0 dnii=000) [id number] 15:28:00 Test Item Value Reference Range Comments ACTIVATED CLOTTING TIME 114 sec TESTED AT [facility] [address] [facility] (BEAKER) (test sbuu=785) [place] [address] [id number] 14:58:00 Test Item Value Reference Range Comments ACTIVATED CLOTTING TIME 191 sec TESTED AT [facility] [address] [facility] (BEAKER) (test wrgy=076) [place] [address] BASIC METABOLIC [id number] 07:24:00 Test Item Value Reference Range Comments SODIUM (BEAKER) (test 141 meq/L 136-145 kujr=142) POTASSIUM (BEAKER) (test 4.1 meq/L 3.5-5.1 gpxm=464) CHLORIDE (BEAKER) (test 116 meq/L 98-107 ldlm=288) CO2 (BEAKER) (test 20 meq/L 22-29 wceb=829) BLOOD UREA NITROGEN 16 mg/dL 7-21 (BEAKER) (test kdsd=365) CREATININE (BEAKER) (test 1.68 mg/dL 0.57-1.25 tlgo=664) GLUCOSE RANDOM (BEAKER) 106 mg/dL 70-105 (test bixu=763) CALCIUM (BEAKER) (test 7.9 mg/dL 8.4-10.2 aljr=049) EGFR (BEAKER) (test 42 mL/min/1.73 sq m ESTIMATED GFR IS NOT ygif=8987) ACCURATE CREATININE CLEARANCE IN PREDICTING GLOMERULAR FILTRATION RATE. ESTIMATED GFR IS NOT APPLICABLE FOR DIALYSIS PATIENTS. PROTHROMBIN [id number] 06:29:00 Test Item Value Reference Range Comments PROTIME (BEAKER) (test ltuq=109) 14.4 seconds 11.7-14.7 INR (BEAKER) (test dwpj=570) 1.1 <=5.9 RECOMMENDED COUMADIN/WARFARIN INR THERAPY RANGESSTANDARD DOSE: 2.0 - 3.0 Includes: PROPHYLAXIS forvenous thrombosis, systemic embolization; TREATMENT for venous thrombosis and/or pulmonary embolus.HIGH RISK: Target INR is 2.5-3.5 for patients with mechanical heart valves.CBC (HEMOGRAM ONLY)2018-02-08 06:13:00 Test Item Value Reference Range Comments WHITE BLOOD CELL COUNT (BEAKER) (test dodj=615) 7.2 K/ L 3.5-10.5 RED BLOOD CELL COUNT (BEAKER) (test crtl=166) 2.86 M/ L 4.63-6.08 HEMOGLOBIN (BEAKER) (test ivwn=363) 8.7 GM/DL 13.7-17.5 HEMATOCRIT (BEAKER) (test neom=429) 28.1 % 40.1-51.0 MEAN CORPUSCULAR VOLUME (BEAKER) (test lwuc=861) 98.3 fL 79.0-92.2 MEAN CORPUSCULAR HEMOGLOBIN (BEAKER) (test 30.4 pg 25.7-32.2 stnr=888) MEAN CORPUSCULAR HEMOGLOBIN CONC (BEAKER) (test 31.0 GM/DL 32.3-36.5 bgpw=647) RED CELL DISTRIBUTION WIDTH (BEAKER) (test 14.8 % 11.6-14.4 dslm=165) PLATELET COUNT (BEAKER) (test lxty=526) 317 K/CU MM 150-450 MEAN PLATELET VOLUME (BEAKER) (test bobz=807) 9.2 fL 9.4-12.4 NUCLEATED RED BLOOD CELLS (BEAKER) (test 0 /100 WBC 0-0 cjnf=581) BASIC METABOLIC [id number] 07:01:00 Test Item Value Reference Range Comments SODIUM (BEAKER) (test 140 meq/L 136-145 qbkz=392) POTASSIUM (BEAKER) (test 4.2 meq/L 3.5-5.1 efar=351) CHLORIDE (BEAKER) (test 113 meq/L 98-107 itim=227) CO2 (BEAKER) (test 21 meq/L 22-29 ikjb=138) BLOOD UREA NITROGEN 18 mg/dL 7-21 (BEAKER) (test mpqq=744) CREATININE (BEAKER) (test 1.51 mg/dL 0.57-1.25 aois=916) GLUCOSE RANDOM (BEAKER) 102 mg/dL 70-105 (test dvqe=281) CALCIUM (BEAKER) (test 8.1 mg/dL 8.4-10.2 jmmq=443) EGFR (BEAKER) (test 47 mL/min/1.73 sq m ESTIMATED GFR IS NOT ayho=3161) ACCURATE CREATININE CLEARANCE IN PREDICTING GLOMERULAR FILTRATION RATE. ESTIMATED GFR IS NOT APPLICABLE FOR DIALYSIS PATIENTS. PROTHROMBIN TIME/[id number] 05:33:00 Test Item Value Reference Range Comments PROTIME (BEAKER) (test cioo=367) 15.3 seconds 11.7-14.7 INR (BEAKER) (test fknk=608) 1.2 <=5.9 RECOMMENDED COUMADIN/WARFARIN INR THERAPY RANGESSTANDARD DOSE: 2.0 - 3.0 Includes: PROPHYLAXIS forvenous thrombosis, systemic embolization; TREATMENT for venous thrombosis and/or pulmonary embolus.HIGH RISK: Target INR is 2.5-3.5 for patients with mechanical heart valves.CBC (HEMOGRAM ONLY)2018-02-07 05:10:00 Test Item Value Reference Range Comments WHITE BLOOD CELL COUNT (BEAKER) (test ezfj=727) 9.9 K/ L 3.5-10.5 RED BLOOD CELL COUNT (BEAKER) (test ccjy=048) 2.56 M/ L 4.63-6.08 HEMOGLOBIN (BEAKER) (test cfkq=874) 7.6 GM/DL 13.7-17.5 HEMATOCRIT (BEAKER) (test snan=578) 24.4 % 40.1-51.0 MEAN CORPUSCULAR VOLUME (BEAKER) (test bjjt=359) 95.3 fL 79.0-92.2 MEAN CORPUSCULAR HEMOGLOBIN (BEAKER) (test 29.7 pg 25.7-32.2 erjo=004) MEAN CORPUSCULAR HEMOGLOBIN CONC (BEAKER) (test 31.1 GM/DL 32.3-36.5 iqro=607) RED CELL DISTRIBUTION WIDTH (BEAKER) (test 15.2 % 11.6-14.4 asrg=462) PLATELET COUNT (BEAKER) (test whpo=137) 355 K/CU MM 150-450 MEAN PLATELET VOLUME (BEAKER) (test ssjd=275) 9.2 fL 9.4-12.4 NUCLEATED RED BLOOD CELLS (BEAKER) (test 0 /100 WBC 0-0 qqri=552) HEMOGLOBIN AND [id number] 21:29:00 Test Item Value Reference Range Comments HEMOGLOBIN (BEAKER) (test hjkp=247) 7.5 GM/DL 13.7-17.5 HEMATOCRIT (BEAKER) (test hprg=463) 23.2 % 40.1-51.0 PROTHROMBIN TIME/[id number] 10:11:00 Test Item Value Reference Range Comments PROTIME (BEAKER) (test wxmj=590) 19.0 seconds 11.7-14.7 INR (BEAKER) (test yeve=911) 1.6 <=5.9 RECOMMENDED COUMADIN/WARFARIN INR THERAPY RANGESSTANDARD DOSE: 2.0 - 3.0 Includes: PROPHYLAXIS forvenous thrombosis, systemic embolization; TREATMENT for venous thrombosis and/or pulmonary embolus.HIGH RISK: Target INR is 2.5-3.5 for patients with mechanical heart valves.HEMOGLOBIN AND [id number] 10 :03:00 Test Item Value Reference Range Comments HEMOGLOBIN (BEAKER) (test yhas=917) 8.3 GM/DL 13.7-17.5 HEMATOCRIT (BEAKER) (test voll=481) 25.9 % 40.1-51.0 BASIC METABOLIC [id number] 23:30:00 Test Item Value Reference Range Comments SODIUM (BEAKER) (test 138 meq/L 136-145 psho=068) POTASSIUM (BEAKER) (test 4.2 meq/L 3.5-5.1 fugn=582) CHLORIDE (BEAKER) (test 114 meq/L 98-107 jxil=472) CO2 (BEAKER) (test 20 meq/L 22-29 nthz=777) BLOOD UREA NITROGEN 25 mg/dL 7-21 (BEAKER) (test qyqd=937) CREATININE (BEAKER) (test 1.83 mg/dL 0.57-1.25 fttq=397) GLUCOSE RANDOM (BEAKER) 104 mg/dL 70-105 (test pbch=010) CALCIUM (BEAKER) (test 7.7 mg/dL 8.4-10.2 qrle=630) EGFR (BEAKER) (test 38 mL/min/1.73 sq m ESTIMATED GFR IS NOT wcui=7967) ACCURATE CREATININE CLEARANCE IN PREDICTING GLOMERULAR FILTRATION RATE. ESTIMATED GFR IS NOT APPLICABLE FOR DIALYSIS PATIENTS. HEPATIC FUNCTION [id number] 23:04:00 Test Item Value Reference Range Comments TOTAL PROTEIN (BEAKER) (test hzbf=131) 5.1 gm/dL 6.0-8.3 ALBUMIN (BEAKER) (test xnfk=2169) 3.0 g/dL 3.5-5.0 BILIRUBIN TOTAL (BEAKER) (test mdim=413) 0.3 mg/dL 0.2-1.2 BILIRUBIN DIRECT (BEAKER) (test vgjd=357) 0.1 mg/dL 0.1-0.5 ALKALINE PHOSPHATASE (BEAKER) (test lpkc=639) 67 U/L 40-150 AST (SGOT) (BEAKER) (test uusk=897) 16 U/L 5-34 ALT (SGPT) (BEAKER) (test wbyn=528) 17 U/L 6-55 [id number] 23:03:00 Test Item Value Reference Range Comments PARTIAL THROMBOPLASTIN TIME (BEAKER) (test 44.4 seconds 22.5-36.0 dhfz=239) PROTHROMBIN TIME/[id number] 23:02:00 Test Item Value Reference Range Comments PROTIME (BEAKER) (test pscg=187) 34.9 seconds 11.7-14.7 INR (BEAKER) (test vylr=222) 3.5 <=5.9 RECOMMENDED COUMADIN/WARFARIN INR THERAPY RANGESSTANDARD DOSE: 2.0 - 3.0 Includes: PROPHYLAXIS forvenous thrombosis, systemic embolization; TREATMENT for venous thrombosis and/or pulmonary embolus.HIGH RISK: Target INR is 2.5-3.5 for patients with mechanical heart valves.CBC W/PLT COUNT & AUTO [id number] 22:47:00 Test Item Value Reference Range Comments WHITE BLOOD CELL COUNT (BEAKER) (test abes=279) 10.5 K/ L 3.5-10.5 RED BLOOD CELL COUNT (BEAKER) (test ukeh=314) 2.01 M/ L 4.63-6.08 HEMOGLOBIN (BEAKER) (test xpyf=902) 6.1 GM/DL 13.7-17.5 HEMATOCRIT (BEAKER) (test iyfj=121) 19.3 % 40.1-51.0 MEAN CORPUSCULAR VOLUME (BEAKER) (test ipnz=411) 96.0 fL 79.0-92.2 MEAN CORPUSCULAR HEMOGLOBIN (BEAKER) (test 30.3 pg 25.7-32.2 mlst=455) MEAN CORPUSCULAR HEMOGLOBIN CONC (BEAKER) (test 31.6 GM/DL 32.3-36.5 uzkc=069) RED CELL DISTRIBUTION WIDTH (BEAKER) (test 15.0 % 11.6-14.4 llqk=119) PLATELET COUNT (BEAKER) (test flnr=389) 377 K/CU MM 150-450 MEAN PLATELET VOLUME (BEAKER) (test ttbu=628) 8.7 fL 9.4-12.4 NUCLEATED RED BLOOD CELLS (BEAKER) (test 0 /100 WBC 0-0 nszg=671) NEUTROPHILS RELATIVE PERCENT (BEAKER) (test 68 % xkux=947) LYMPHOCYTES RELATIVE PERCENT (BEAKER) (test 24 % ethq=354) MONOCYTES RELATIVE PERCENT (BEAKER) (test 6 % xzsq=602) EOSINOPHILS RELATIVE PERCENT (BEAKER) (test 2 % smgh=022) BASOPHILS RELATIVE PERCENT (BEAKER) (test 0 % ccar=117) NEUTROPHILS ABSOLUTE COUNT (BEAKER) (test 7.11 K/ L 1.78-5.38 tfhj=029) LYMPHOCYTES ABSOLUTE COUNT (BEAKER) (test 2.46 K/ L 1.32-3.57 ffoi=167) MONOCYTES ABSOLUTE COUNT (BEAKER) (test 0.65 K/ L 0.30-0.82 mvro=931) EOSINOPHILS ABSOLUTE COUNT (BEAKER) (test 0.17 K/ L 0.04-0.54 xpxr=266) BASOPHILS ABSOLUTE COUNT (BEAKER) (test 0.04 K/ L 0.01-0.08 qprt=177) IMMATURE GRANULOCYTES-RELATIVE PERCENT (BEAKER) 1 % 0-1 (test yoda=1377) [id number] 05:35:00 Test Item Value Reference Range Comments PHOSPHORUS (BEAKER) (test gztl=795) 2.7 mg/dL 2.3-4.7 [id number] 05:35:00 Test Item Value Reference Range Comments MAGNESIUM (BEAKER) (test vcma=152) 1.8 mg/dL 1.6-2.6 BASIC METABOLIC [id number] 05:35:00 Test Item Value Reference Range Comments SODIUM (BEAKER) (test 138 meq/L 136-145 oihf=478) POTASSIUM (BEAKER) (test 4.2 meq/L 3.5-5.1 iisy=626) CHLORIDE (BEAKER) (test 109 meq/L 98-107 lqdx=622) CO2 (BEAKER) (test 25 meq/L 22-29 msrv=569) BLOOD UREA NITROGEN 13 mg/dL 7-21 (BEAKER) (test nykg=801) CREATININE (BEAKER) (test 1.49 mg/dL 0.57-1.25 czgh=442) GLUCOSE RANDOM (BEAKER) 104 mg/dL 70-105 (test snvi=620) CALCIUM (BEAKER) (test 8.4 mg/dL 8.4-10.2 wjxo=456) EGFR (BEAKER) (test 48 mL/min/1.73 sq m ESTIMATED GFR IS NOT agkc=7288) ACCURATE CREATININE CLEARANCE IN PREDICTING GLOMERULAR FILTRATION RATE. ESTIMATED GFR IS NOT APPLICABLE FOR DIALYSIS PATIENTS. [id number] 05:29:00 Test Item Value Reference Range Comments PARTIAL THROMBOPLASTIN TIME (BEAKER) (test 130.9 seconds 22.5-36.0 xuku=943) PROTHROMBIN TIME/[id number] 05:17:00 Test Item Value Reference Range Comments PROTIME (BEAKER) (test zwpj=646) 24.2 seconds 11.7-14.7 INR (BEAKER) (test zjkw=039) 2.2 <=5.9 RECOMMENDED COUMADIN/WARFARIN INR THERAPY RANGESSTANDARD DOSE: 2.0 - 3.0 Includes: PROPHYLAXIS forvenous thrombosis, systemic embolization; TREATMENT for venous thrombosis and/or pulmonary embolus.HIGH RISK: Target INR is 2.5-3.5 for patients with mechanical heart valves.[id number] 00:15:00 Test Item Value Reference Range Comments PARTIAL THROMBOPLASTIN TIME (BEAKER) (test 76.8 seconds 22.5-36.0 nksy=267) [id number] 16:54:00 Test Item Value Reference Range Comments PARTIAL THROMBOPLASTIN TIME (BEAKER) (test 47.3 seconds 22.5-36.0 egmu=042) [id number] 14:53:00 Test Item Value Reference Range Comments PARTIAL THROMBOPLASTIN TIME (BEAKER) (test 125.8 seconds 22.5-36.0 iiob=865) CBC (HEMOGRAM ONLY)2018-01-27 14:31:00 Test Item Value Reference Range Comments WHITE BLOOD CELL COUNT (BEAKER) (test dady=544) 8.3 K/ L 3.5-10.5 RED BLOOD CELL COUNT (BEAKER) (test zzgo=060) 3.28 M/ L 4.63-6.08 HEMOGLOBIN (BEAKER) (test xvhs=076) 9.8 GM/DL 13.7-17.5 HEMATOCRIT (BEAKER) (test axli=016) 31.4 % 40.1-51.0 MEAN CORPUSCULAR VOLUME (BEAKER) (test twth=238) 95.7 fL 79.0-92.2 MEAN CORPUSCULAR HEMOGLOBIN (BEAKER) (test 29.9 pg 25.7-32.2 wxig=860) MEAN CORPUSCULAR HEMOGLOBIN CONC (BEAKER) (test 31.2 GM/DL 32.3-36.5 ujsl=851) RED CELL DISTRIBUTION WIDTH (BEAKER) (test 14.0 % 11.6-14.4 uucs=884) PLATELET COUNT (BEAKER) (test usuh=808) 230 K/CU MM 150-450 MEAN PLATELET VOLUME (BEAKER) (test amlm=460) 9.7 fL 9.4-12.4 NUCLEATED RED BLOOD CELLS (BEAKER) (test 0 /100 WBC 0-0 scij=666) PROTHROMBIN TIME/[id number] 08:29:00 Test Item Value Reference Range Comments PROTIME (BEAKER) (test svpv=636) 16.1 seconds 11.7-14.7 INR (BEAKER) (test euuk=724) 1.3 <=5.9 RECOMMENDED COUMADIN/WARFARIN INR THERAPY RANGESSTANDARD DOSE: 2.0 - 3.0 Includes: PROPHYLAXIS forvenous thrombosis, systemic embolization; TREATMENT for venous thrombosis and/or pulmonary embolus.HIGH RISK: Target INR is 2.5-3.5 for patients with mechanical heart valves.6 hours after starting heparin infusion and as indicated per sliding [id number] 07:17:00 Test Item Value Reference Range Comments PHOSPHORUS (BEAKER) (test ilzu=910) 2.1 mg/dL 2.3-4.7 [id number] 07:17:00 Test Item Value Reference Range Comments MAGNESIUM (BEAKER) (test doaa=062) 2.0 mg/dL 1.6-2.6 BASIC METABOLIC [id number] 07:17:00 Test Item Value Reference Range Comments SODIUM (BEAKER) (test 138 meq/L 136-145 jabn=904) POTASSIUM (BEAKER) (test 4.2 meq/L 3.5-5.1 uhlq=155) CHLORIDE (BEAKER) (test 109 meq/L 98-107 ivqp=699) CO2 (BEAKER) (test 25 meq/L 22-29 asfv=402) BLOOD UREA NITROGEN 15 mg/dL 7-21 (BEAKER) (test qkix=766) CREATININE (BEAKER) (test 1.47 mg/dL 0.57-1.25 ossj=676) GLUCOSE RANDOM (BEAKER) 106 mg/dL 70-105 (test kedm=416) CALCIUM (BEAKER) (test 8.3 mg/dL 8.4-10.2 jryx=511) EGFR (BEAKER) (test 49 mL/min/1.73 sq m ESTIMATED GFR IS NOT ngra=2139) ACCURATE CREATININE CLEARANCE IN PREDICTING GLOMERULAR FILTRATION RATE. ESTIMATED GFR IS NOT APPLICABLE FOR DIALYSIS PATIENTS. [id number] 07:07:00 Test Item Value Reference Range Comments PARTIAL THROMBOPLASTIN TIME (BEAKER) (test 107.3 seconds 22.5-36.0 dlat=113) 6 hours after starting heparin infusion and as indicated per sliding scaleCBC ( HEMOGRAM ONLY)2018-01-27 06:30:00 Test Item Value Reference Range Comments WHITE BLOOD CELL COUNT (BEAKER) (test cckx=623) 8.3 K/ L 3.5-10.5 RED BLOOD CELL COUNT (BEAKER) (test wrml=583) 3.38 M/ L 4.63-6.08 HEMOGLOBIN (BEAKER) (test sgzx=583) 10.1 GM/DL 13.7-17.5 HEMATOCRIT (BEAKER) (test hwcr=952) 32.3 % 40.1-51.0 MEAN CORPUSCULAR VOLUME (BEAKER) (test dudr=975) 95.6 fL 79.0-92.2 MEAN CORPUSCULAR HEMOGLOBIN (BEAKER) (test 29.9 pg 25.7-32.2 uefg=631) MEAN CORPUSCULAR HEMOGLOBIN CONC (BEAKER) (test 31.3 GM/DL 32.3-36.5 xttz=453) RED CELL DISTRIBUTION WIDTH (BEAKER) (test 13.9 % 11.6-14.4 ufai=177) PLATELET COUNT (BEAKER) (test ycqf=593) 181 K/CU MM 150-450 MEAN PLATELET VOLUME (BEAKER) (test ekbq=130) 9.4 fL 9.4-12.4 NUCLEATED RED BLOOD CELLS (BEAKER) (test 0 /100 WBC 0-0 rbqi=420) [id number] 01:12:00 Test Item Value Reference Range Comments PARTIAL THROMBOPLASTIN TIME (BEAKER) (test 98.7 seconds 22.5-36.0 onsd=622) TISSUE [id number] 19:09:00Surgical Pathology Report Case: [id number] Authorizing Provider: Humza Oconnor MD Collected: 01/23/2018 1710 Ordering Location: [facility] 2 Received: 01/24/2018 0943 Pathologist: Timothy Mendoza MD Specimen: Soft Tissue, Other, RIGHT VASCULAR THROMBUS/CLOT SOFT TISSUE/THROMBUS, LEG, "RIGHT VASCULAR", THROMBECTOMY- FRAGMENTS OF THROMBUS Signing Pathologist Direct Phone Line: [phone] signed by Timothy Mendoza MD on 01/26/2018 at 7:09 [id number] vascular thrombusThe specimen is received in saline labeled with the patient's information labeled "right vascular thrombus" and consists of multiple fragments of blood clot measuring 3 x 2 x 0.5 cm in aggregate. 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 CG/ pl [id number] 18:00:00 Test Item Value Reference Range Comments PARTIAL THROMBOPLASTIN TIME (BEAKER) (test 57.7 seconds 22.5-36.0 pfjf=813) POCT-GLUCOSE [id number] 09:17:00 Test Item Value Reference Range Comments POC-GLUCOSE METER (BEAKER) 129 mg/dL 70-110 TESTED AT [facility] [address] [facility] (test gjko=0105) [place] [address] [id number] 09:01:00 Test Item Value Reference Range Comments PARTIAL THROMBOPLASTIN TIME (BEAKER) (test 68.7 seconds 22.5-36.0 msgn=547) [id number] 01:45:00 Test Item Value Reference Range Comments PARTIAL THROMBOPLASTIN TIME (BEAKER) (test 45.8 seconds 22.5-36.0 xrjj=473) PROTHROMBIN TIME/[id number] 01:43:00 Test Item Value Reference Range Comments PROTIME (BEAKER) (test ifyk=473) 13.7 seconds 11.7-14.7 INR (BEAKER) (test fyqo=831) 1.1 <=5.9 RECOMMENDED COUMADIN/WARFARIN INR THERAPY RANGESSTANDARD DOSE: 2.0 - 3.0 Includes: PROPHYLAXIS forvenous thrombosis, systemic embolization; TREATMENT for venous thrombosis and/or pulmonary embolus.HIGH RISK: Target INR is 2.5-3.5 for patients with mechanical heart valves.POCT-GLUCOSE [id number] 21:14:00 Test Item Value Reference Range Comments POC-GLUCOSE METER (BEAKER) 115 mg/dL 70-110 TESTED AT [address] (test pcpc=2830) [place] [address] PLATELET AGGREGATION: FUNCTION [id number] 20:37:00 Test Item Value Reference Range Comments WEAK ADP RESULT(BEAKER) (test 48 % 60-91 icev=8337) PLATELET FUNCTION SCREEN 40-49% indicates moderate INTERP (BEAKER) (test platelet dysfunction ahbd=7162) [id number] Buzz Urbano M.D. (electonic (BEAKER) (test vzgc=1619) signature) PLATELET COUNT AGG (BEAKER) 187 K/CU MM 150-450 (test tdbh=4496) POCT-GLUCOSE [id number] 17:28:00 Test Item Value Reference Range Comments POC-GLUCOSE METER (BEAKER) 93 mg/dL 70-110 TESTED AT [address] (test uohb=4427) [place] [address] POCT-GLUCOSE [id number] 12:12:00 Test Item Value Reference Range Comments POC-GLUCOSE METER (BEAKER) 108 mg/dL 70-110 TESTED AT [address] (test cgxt=2636) [facility] [address] [id number] 08:17:00 Test Item Value Reference Range Comments PARTIAL THROMBOPLASTIN TIME (BEAKER) (test 47.0 seconds 22.5-36.0 phbu=505) While on heparin. aPTT target range 60 to 80 seconds Notify MD if aPTT is out of range.POCT-GLUCOSE [id number] 07:47:00 Test Item Value Reference Range Comments POC-GLUCOSE METER (BEAKER) 98 mg/dL 70-110 TESTED AT [facility] [address] [facility] (test iokr=9175) [facility] [address] [id number] 02:53:00 Test Item Value Reference Range Comments PARTIAL THROMBOPLASTIN TIME (BEAKER) (test 71.4 seconds 22.5-36.0 avoy=414) While on heparin. aPTT target range 60 to 80 seconds Notify MD if aPTT is out of range.PROTHROMBIN [id number] 02:51:00 Test Item Value Reference Range Comments PROTIME (BEAKER) (test onyy=259) 13.5 seconds 11.7-14.7 INR (BEAKER) (test awpg=742) 1.0 <=5.9 RECOMMENDED COUMADIN/WARFARIN INR THERAPY RANGESSTANDARD DOSE: 2.0 - 3.0 Includes: PROPHYLAXIS forvenous thrombosis, systemic embolization; TREATMENT for venous thrombosis and/or pulmonary embolus.HIGH RISK: Target INR is 2.5-3.5 for patients with mechanical heart valves.While on heparin. aPTT target range 60 to 80 seconds Notify MD if aPTT is out of range.BASIC METABOLIC [id number] 02:48:00 Test Item Value Reference Range Comments SODIUM (BEAKER) (test 133 meq/L 136-145 pdhb=679) POTASSIUM (BEAKER) (test 3.7 meq/L 3.5-5.1 qidd=085) CHLORIDE (BEAKER) (test 102 meq/L 98-107 xsxh=381) CO2 (BEAKER) (test 24 meq/L 22-29 zggw=101) BLOOD UREA NITROGEN 19 mg/dL 7-21 (BEAKER) (test lgdp=102) CREATININE (BEAKER) (test 1.62 mg/dL 0.57-1.25 fref=058) GLUCOSE RANDOM (BEAKER) 106 mg/dL 70-105 (test javb=036) CALCIUM (BEAKER) (test 7.9 mg/dL 8.4-10.2 tejt=513) EGFR (BEAKER) (test 43 mL/min/1.73 sq m ESTIMATED GFR IS NOT dhaf=3796) ACCURATE CREATININE CLEARANCE IN PREDICTING GLOMERULAR FILTRATION RATE. ESTIMATED GFR IS NOT APPLICABLE FOR DIALYSIS PATIENTS. [id number] 02:42:00 Test Item Value Reference Range Comments MAGNESIUM (BEAKER) (test sypb=877) 2.1 mg/dL 1.6-2.6 CBC (HEMOGRAM ONLY)2018-01-25 02:21:00 Test Item Value Reference Range Comments WHITE BLOOD CELL COUNT (BEAKER) (test aihb=858) 10.8 K/ L 3.5-10.5 RED BLOOD CELL COUNT (BEAKER) (test jgfd=888) 3.34 M/ L 4.63-6.08 HEMOGLOBIN (BEAKER) (test ncsf=150) 10.0 GM/DL 13.7-17.5 HEMATOCRIT (BEAKER) (test rsui=169) 31.1 % 40.1-51.0 MEAN CORPUSCULAR VOLUME (BEAKER) (test fvkw=830) 93.1 fL 79.0-92.2 MEAN CORPUSCULAR HEMOGLOBIN (BEAKER) (test 29.9 pg 25.7-32.2 qpqe=624) MEAN CORPUSCULAR HEMOGLOBIN CONC (BEAKER) (test 32.2 GM/DL 32.3-36.5 ifpa=955) RED CELL DISTRIBUTION WIDTH (BEAKER) (test 14.0 % 11.6-14.4 dmii=331) PLATELET COUNT (BEAKER) (test eces=947) 186 K/CU MM 150-450 MEAN PLATELET VOLUME (BEAKER) (test hztt=948) 9.4 fL 9.4-12.4 NUCLEATED RED BLOOD CELLS (BEAKER) (test 0 /100 WBC 0-0 jazx=588) POCT-GLUCOSE [id number] 21:10:00 Test Item Value Reference Range Comments POC-GLUCOSE METER (BEAKER) 124 mg/dL 70-110 TESTED AT [facility] [address] [facility] (test kjua=0245) [facility] [address] [id number] 20:38:00 Test Item Value Reference Range Comments PARTIAL THROMBOPLASTIN TIME (BEAKER) (test 48.6 seconds 22.5-36.0 ejtc=673) PLATELET AGGREGATION: FUNCTION [id number] 18:24:00 Test Item Value Reference Range Comments WEAK ADP RESULT(BEAKER) (test 33 % 60-91 uedg=7765) PLATELET FUNCTION SCREEN 0-39% indicates marked platelet INTERP (BEAKER) (test dysfunction aahf=2074) [id number] Buzz Urbano M.D. (electonic (BEAKER) (test ojft=3228) signature) PLATELET COUNT AGG (BEAKER) 242 K/CU MM 150-450 (test cxzx=2843) PLATELET AGGREGATION: FUNCTION [id number] 18:22:00 Test Item Value Reference Range Comments WEAK ADP RESULT(BEAKER) (test 25 % 60-91 oqws=5070) PLATELET FUNCTION SCREEN 0-39% indicates marked platelet INTERP (BEAKER) (test dysfunction hegh=4043) [id number] Buzz Urbano M.D. (electonic (BEAKER) (test elrf=9131) signature) PLATELET COUNT AGG (BEAKER) 251 K/CU MM 150-450 (test tzpe=9643) [id number] 16:16:00 Test Item Value Reference Range Comments PARTIAL THROMBOPLASTIN TIME (BEAKER) (test 81.3 seconds 22.5-36.0 qlux=803) [id number] 15:37:00 Test Item Value Reference Range Comments PARTIAL THROMBOPLASTIN TIME (BEAKER) (test 38.5 seconds 22.5-36.0 icpx=782) While on heparin. aPTT target range 50 to 80 seconds Notify MD if aPTT is out of range.HEMOGLOBIN [id number] 12:50:00 Test Item Value Reference Range Comments HEMOGLOBIN A1C (BEAKER) (test kndy=536) 5.5 % 4.3-6.1 POCT-GLUCOSE [id number] 11:33:00 Test Item Value Reference Range Comments POC-GLUCOSE METER (BEAKER) 100 mg/dL 70-110 TESTED AT [facility] [address] [facility] (test lamh=8896) [facility] [address] [id number] 08:35:00 Test Item Value Reference Range Comments PARTIAL THROMBOPLASTIN TIME (BEAKER) (test 44.9 seconds 22.5-36.0 zfzl=878) [id number] 04:15:00 Test Item Value Reference Range Comments MAGNESIUM (BEAKER) (test uomb=899) 1.9 mg/dL 1.6-2.6 BASIC METABOLIC [id number] 04:15:00 Test Item Value Reference Range Comments SODIUM (BEAKER) (test 136 meq/L 136-145 bocd=423) POTASSIUM (BEAKER) (test 4.4 meq/L 3.5-5.1 egoy=021) CHLORIDE (BEAKER) (test 107 meq/L 98-107 jlgq=467) CO2 (BEAKER) (test 22 meq/L 22-29 juuw=763) BLOOD UREA NITROGEN 16 mg/dL 7-21 (BEAKER) (test ajyc=740) CREATININE (BEAKER) (test 1.54 mg/dL 0.57-1.25 ixcl=996) GLUCOSE RANDOM (BEAKER) 129 mg/dL 70-105 (test tlqr=293) CALCIUM (BEAKER) (test 8.1 mg/dL 8.4-10.2 addz=668) EGFR (BEAKER) (test 46 mL/min/1.73 sq m ESTIMATED GFR IS NOT cbom=9520) ACCURATE CREATININE CLEARANCE IN PREDICTING GLOMERULAR FILTRATION RATE. ESTIMATED GFR IS NOT APPLICABLE FOR DIALYSIS PATIENTS. [id number] 04:12:00 Test Item Value Reference Range Comments PARTIAL THROMBOPLASTIN TIME (BEAKER) (test 65.1 seconds 22.5-36.0 xbfq=058) POCT-GLUCOSE [id number] 04:11:00 Test Item Value Reference Range Comments POC-GLUCOSE METER (BEAKER) 128 mg/dL 70-110 TESTED AT [facility] [address] [facility] (test kblz=5182) [place] [address] PROTHROMBIN [id number] 04:11:00 Test Item Value Reference Range Comments PROTIME (BEAKER) (test lowe=362) 14.8 seconds 11.7-14.7 INR (BEAKER) (test ragh=090) 1.2 <=5.9 RECOMMENDED COUMADIN/WARFARIN INR THERAPY RANGESSTANDARD DOSE: 2.0 - 3.0 Includes: PROPHYLAXIS forvenous thrombosis, systemic embolization; TREATMENT for venous thrombosis and/or pulmonary embolus.HIGH RISK: Target INR is 2.5-3.5 for patients with mechanical heart valves.CBC (HEMOGRAM ONLY)2018-01-24 03:59:00 Test Item Value Reference Range Comments WHITE BLOOD CELL COUNT (BEAKER) (test tels=450) 15.9 K/ L 3.5-10.5 RED BLOOD CELL COUNT (BEAKER) (test wwbt=429) 3.85 M/ L 4.63-6.08 HEMOGLOBIN (BEAKER) (test vnvi=777) 11.7 GM/DL 13.7-17.5 HEMATOCRIT (BEAKER) (test jxpx=437) 35.7 % 40.1-51.0 MEAN CORPUSCULAR VOLUME (BEAKER) (test kuur=160) 92.7 fL 79.0-92.2 MEAN CORPUSCULAR HEMOGLOBIN (BEAKER) (test 30.4 pg 25.7-32.2 lykg=403) MEAN CORPUSCULAR HEMOGLOBIN CONC (BEAKER) (test 32.8 GM/DL 32.3-36.5 cevq=336) RED CELL DISTRIBUTION WIDTH (BEAKER) (test 13.7 % 11.6-14.4 njcf=988) PLATELET COUNT (BEAKER) (test gosg=049) 250 K/CU MM 150-450 MEAN PLATELET VOLUME (BEAKER) (test pbmq=954) 9.8 fL 9.4-12.4 NUCLEATED RED BLOOD CELLS (BEAKER) (test 0 /100 WBC 0-0 vhbz=053) RAD, CHEST, 1 VIEW, NON [id number] 00:09:00Reason for exam:->central line placement in the [...] Verified Date/Time: 01/24/2018 00:09:20 Reading Location: [facility] [id number] Consult Reading Room [id number] 23:29:00 Test Item Value Reference Range Comments PARTIAL THROMBOPLASTIN TIME (BEAKER) (test > seconds 22.5-36.0 wdgq=472) POCT-GLUCOSE [id number] 23:00:00 Test Item Value Reference Range Comments POC-GLUCOSE METER (BEAKER) 142 mg/dL 70-110 TESTED AT [facility] [address] [facility] (test ijzo=1793) [facility] [address] [id number] 22:22:00 Test Item Value Reference Range Comments MAGNESIUM (BEAKER) (test uxwd=223) 1.9 mg/dL 1.6-2.6 CALCIUM, [id number] 22:10:00 Test Item Value Reference Range Comments CALCIUM IONIZED (BEAKER) (test llgc=066) 1.04 mmol/L 1.12-1.27 PH, BLOOD (BEAKER) (test vbrb=1353) 7.41 HEPATITIS B SURFACE [id number] 19:32:00 Test Item Value Reference Range Comments HEPATITIS B SURFACE ANTIGEN (2) (BEAKER) (test Nonreactive Nonreactive xfyk=2602) HIV-1 ANTIGEN WITH HIV-1/2 [id number] 19:32:00 Test Item Value Reference Range Comments HIV-1 ANTIGEN WITH HIV 1\\T\\2 ANTIBODY (2) Nonreactive Nonreactive (BEAKER) (test czdn=9142) [id number] 19:23:00 Test Item Value Reference Range Comments PARTIAL THROMBOPLASTIN TIME (BEAKER) (test > seconds 22.5-36.0 uywp=445) BASIC METABOLIC [id number] 19:01:00 Test Item Value Reference Range Comments SODIUM (BEAKER) (test 136 meq/L 136-145 rwkl=019) POTASSIUM (BEAKER) (test 4.6 meq/L 3.5-5.1 qazh=527) CHLORIDE (BEAKER) (test 109 meq/L 98-107 qoeu=710) CO2 (BEAKER) (test 19 meq/L 22-29 qzxi=661) BLOOD UREA NITROGEN 14 mg/dL 7-21 (BEAKER) (test ednp=547) CREATININE (BEAKER) (test 1.75 mg/dL 0.57-1.25 ntrb=218) GLUCOSE RANDOM (BEAKER) 154 mg/dL 70-105 (test vkka=999) CALCIUM (BEAKER) (test 8.1 mg/dL 8.4-10.2 piff=462) EGFR (BEAKER) (test 40 mL/min/1.73 sq m ESTIMATED GFR IS NOT nalw=4002) ACCURATE CREATININE CLEARANCE IN PREDICTING GLOMERULAR FILTRATION RATE. ESTIMATED GFR IS NOT APPLICABLE FOR DIALYSIS PATIENTS. CBC (HEMOGRAM ONLY)2018-01-23 18:45:00 Test Item Value Reference Range Comments WHITE BLOOD CELL COUNT (BEAKER) (test jork=542) 15.9 K/ L 3.5-10.5 RED BLOOD CELL COUNT (BEAKER) (test nyck=006) 4.00 M/ L 4.63-6.08 HEMOGLOBIN (BEAKER) (test qpkz=100) 11.9 GM/DL 13.7-17.5 HEMATOCRIT (BEAKER) (test vjnk=826) 38.0 % 40.1-51.0 MEAN CORPUSCULAR VOLUME (BEAKER) (test halb=772) 95.0 fL 79.0-92.2 MEAN CORPUSCULAR HEMOGLOBIN (BEAKER) (test 29.8 pg 25.7-32.2 zsuf=135) MEAN CORPUSCULAR HEMOGLOBIN CONC (BEAKER) (test 31.3 GM/DL 32.3-36.5 nvbr=819) RED CELL DISTRIBUTION WIDTH (BEAKER) (test 13.7 % 11.6-14.4 ritq=955) PLATELET COUNT (BEAKER) (test cgak=537) 253 K/CU MM 150-450 MEAN PLATELET VOLUME (BEAKER) (test bekj=954) 9.7 fL 9.4-12.4 NUCLEATED RED BLOOD CELLS (BEAKER) (test 0 /100 WBC 0-0 irtc=366) BLOOD GAS, [id number] 18:42:00 Test Item Value Reference Range Comments PH ARTERIAL (BEAKER) (test ozwd=876) 7.34 7.35-7.45 PCO2 ARTERIAL (BEAKER) (test znzo=878) 38 mmHg 35-45 PO2 ARTERIAL (BEAKER) (test zslk=224) 92 mmHg 80-90 O2 SATURATION ARTERIAL (BEAKER) (test wqxx=024) 97.4 % 96.0-97.0 HCO3 ARTERIAL (BEAKER) (test zjtf=918) 21 mmol/L 21-29 BASE EXCESS ARTERIAL (BEAKER) (test gjew=336) -5.3 mmol/L -2.0-3.0 PATIENT TEMPERATURE (BEAKER) (test bmye=2546) 34.7 C FIO2 (BEAKER) (test vblv=3817) 28.0 % GLUCOSE-STAT [id number] 18:42:00 Test Item Value Reference Range Comments GLUCOSE RANDOM (BEAKER) (test ukxr=715) 149 mg/dL 70-110 POTASSIUM-STAT [id number] 18:42:00 Test Item Value Reference Range Comments POTASSIUM (BEAKER) (test ftok=159) 4.5 meq/L 3.6-5.5 [id number] 17:53:00 Test Item Value Reference Range Comments ACTIVATED CLOTTING TIME 307 sec TESTED AT [place] [address] [address] (BEAKER) (test udfo=421) [place] [address] [id number] 17:53:00 Test Item Value Reference Range Comments ACTIVATED CLOTTING TIME 312 sec TESTED AT [place] [address] [address] (BEAKER) (test usfm=688) [place] [address] [id number] 17:53:00 Test Item Value Reference Range Comments ACTIVATED CLOTTING TIME 263 sec TESTED AT [place] [address] [address] (BEAKER) (test qqpx=319) [place] [address] [id number] 17:53:00 Test Item Value Reference Range Comments ACTIVATED CLOTTING TIME 235 sec TESTED AT [place] [address] [address] (BEAKER) (test palo=217) [place] [address] BASIC METABOLIC [id number] 16:20:00 Test Item Value Reference Range Comments SODIUM (BEAKER) (test 136 meq/L 136-145 cxcc=649) POTASSIUM (BEAKER) (test 3.9 meq/L 3.5-5.1 dkfi=470) CHLORIDE (BEAKER) (test 107 meq/L 98-107 tbcf=359) CO2 (BEAKER) (test 22 meq/L 22-29 tmom=671) BLOOD UREA NITROGEN 15 mg/dL 7-21 (BEAKER) (test mgvp=579) CREATININE (BEAKER) (test 1.63 mg/dL 0.57-1.25 bxep=317) GLUCOSE RANDOM (BEAKER) 103 mg/dL 70-105 (test wsru=019) CALCIUM (BEAKER) (test 8.4 mg/dL 8.4-10.2 uehy=486) EGFR (BEAKER) (test 43 mL/min/1.73 sq m ESTIMATED GFR IS NOT gmoj=0958) ACCURATE CREATININE CLEARANCE IN PREDICTING GLOMERULAR FILTRATION RATE. ESTIMATED GFR IS NOT APPLICABLE FOR DIALYSIS PATIENTS. [id number] 15:46:00 Test Item Value Reference Range Comments PARTIAL THROMBOPLASTIN TIME (BEAKER) (test 24.7 seconds 22.5-36.0 wcmk=131) PROTHROMBIN [id number] 15:45:00 Test Item Value Reference Range Comments PROTIME (BEAKER) (test mllb=666) 14.0 seconds 11.7-14.7 INR (BEAKER) (test xlty=514) 1.1 <=5.9 RECOMMENDED COUMADIN/WARFARIN INR THERAPY RANGESSTANDARD DOSE: 2.0 - 3.0 Includes: PROPHYLAXIS forvenous thrombosis, systemic embolization; TREATMENT for venous thrombosis and/or pulmonary embolus.HIGH RISK: Target INR is 2.5-3.5 for patients with mechanical heart valves.CBC W/PLT COUNT & AUTO [id number] 15:41:00 Test Item Value Reference Range Comments WHITE BLOOD CELL COUNT (BEAKER) (test jewh=554) 14.3 K/ L 3.5-10.5 RED BLOOD CELL COUNT (BEAKER) (test stjy=701) 4.32 M/ L 4.63-6.08 HEMOGLOBIN (BEAKER) (test ukgj=482) 13.0 GM/DL 13.7-17.5 HEMATOCRIT (BEAKER) (test hxgx=036) 40.7 % 40.1-51.0 MEAN CORPUSCULAR VOLUME (BEAKER) (test vola=800) 94.2 fL 79.0-92.2 MEAN CORPUSCULAR HEMOGLOBIN (BEAKER) (test 30.1 pg 25.7-32.2 rqvs=482) MEAN CORPUSCULAR HEMOGLOBIN CONC (BEAKER) (test 31.9 GM/DL 32.3-36.5 dvud=869) RED CELL DISTRIBUTION WIDTH (BEAKER) (test 13.6 % 11.6-14.4 vcpo=386) PLATELET COUNT (BEAKER) (test pjny=127) 240 K/CU MM 150-450 MEAN PLATELET VOLUME (BEAKER) (test gmtv=928) 9.6 fL 9.4-12.4 NUCLEATED RED BLOOD CELLS (BEAKER) (test 0 /100 WBC 0-0 pjta=613) NEUTROPHILS RELATIVE PERCENT (BEAKER) (test 83 % gakw=977) LYMPHOCYTES RELATIVE PERCENT (BEAKER) (test 11 % uebz=048) MONOCYTES RELATIVE PERCENT (BEAKER) (test 5 % sfms=670) EOSINOPHILS RELATIVE PERCENT (BEAKER) (test 0 % dndz=504) BASOPHILS RELATIVE PERCENT (BEAKER) (test 0 % iuur=515) NEUTROPHILS ABSOLUTE COUNT (BEAKER) (test 11.79 K/ L 1.78-5.38 itmi=640) LYMPHOCYTES ABSOLUTE COUNT (BEAKER) (test 1.57 K/ L 1.32-3.57 nhjw=023) MONOCYTES ABSOLUTE COUNT (BEAKER) (test 0.75 K/ L 0.30-0.82 wutx=126) EOSINOPHILS ABSOLUTE COUNT (BEAKER) (test 0.01 K/ L 0.04-0.54 cdbu=711) BASOPHILS ABSOLUTE COUNT (BEAKER) (test 0.05 K/ L 0.01-0.08 vfaf=044) IMMATURE GRANULOCYTES-RELATIVE PERCENT (BEAKER) 1 % 0-1 (test uyvl=9596) TISSUE [id number] 14:59:00Surgical Pathology Report Case: [id number] Authorizing Provider: Humza Oconnor MD Collected: 11/17/2017 0937 Ordering Location: [facility] CV Recovery Room 2 Received: 11/17/2017 1003 Pathologist: Vince Toibas MD Specimen: Plaque, right femoral plaque ARTERY, RIGHT FEMORAL, THROMBECTOMY :FIBRIN THROMBUSFIBROVASCULAR AND FIBROADIPOSE TISSUE Signing Pathologist Direct Phone Line: [phone] signed by Vince Tobias MD on at 2:59 [id number] femoral plaqueReceived in saline labeled "plaque", description "right femoral plaque" arefour irregular, caban-white to yellow-rose, rubbery fragments of plaque-like material measuring 3.0 x 2.5 x 0.3 cm in aggregate. sectioning reveals no discrete masses. 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 DB/ew [facility] METABOLIC [id number] 06: 17:00 Test Item Value Reference Range Comments SODIUM (BEAKER) (test 137 meq/L 136-145 rhuh=694) POTASSIUM (BEAKER) (test 4.0 meq/L 3.5-5.1 gjea=046) CHLORIDE (BEAKER) (test 108 meq/L 98-107 qkeq=165) CO2 (BEAKER) (test 22 meq/L 22-29 llqq=354) BLOOD UREA NITROGEN 19 mg/dL 7-21 (BEAKER) (test yyni=056) CREATININE (BEAKER) (test 1.54 mg/dL 0.57-1.25 voph=455) GLUCOSE RANDOM (BEAKER) 99 mg/dL 70-105 (test dkwz=597) CALCIUM (BEAKER) (test 8.7 mg/dL 8.4-10.2 iozd=980) EGFR (BEAKER) (test 46 mL/min/1.73 sq m ESTIMATED GFR IS NOT qrdr=7042) ACCURATE CREATININE CLEARANCE IN PREDICTING GLOMERULAR FILTRATION RATE. ESTIMATED GFR IS NOT APPLICABLE FOR DIALYSIS PATIENTS. CBC (HEMOGRAM ONLY)2017-11-21 05:21:00 Test Item Value Reference Range Comments WHITE BLOOD CELL COUNT (BEAKER) (test ovuq=909) 8.6 K/ L 3.5-10.5 RED BLOOD CELL COUNT (BEAKER) (test cvne=958) 4.33 M/ L 4.63-6.08 HEMOGLOBIN (BEAKER) (test llrx=500) 14.1 GM/DL 13.7-17.5 HEMATOCRIT (BEAKER) (test rcqx=429) 43.3 % 40.1-51.0 MEAN CORPUSCULAR VOLUME (BEAKER) (test asue=759) 100.0 fL 79.0-92.2 MEAN CORPUSCULAR HEMOGLOBIN (BEAKER) (test 32.6 pg 25.7-32.2 qvoq=900) MEAN CORPUSCULAR HEMOGLOBIN CONC (BEAKER) (test 32.6 GM/DL 32.3-36.5 vamh=112) RED CELL DISTRIBUTION WIDTH (BEAKER) (test 15.2 % 11.6-14.4 wias=589) PLATELET COUNT (BEAKER) (test daeb=291) 173 K/CU MM 150-450 MEAN PLATELET VOLUME (BEAKER) (test griz=909) 9.7 fL 9.4-12.4 NUCLEATED RED BLOOD CELLS (BEAKER) (test 0 /100 WBC 0-0 yqtt=629) BASIC METABOLIC [id number] 10:29:00 Test Item Value Reference Range Comments SODIUM (BEAKER) (test 138 meq/L 136-145 labv=763) POTASSIUM (BEAKER) (test 4.0 meq/L 3.5-5.1 foln=534) CHLORIDE (BEAKER) (test 109 meq/L 98-107 kxic=240) CO2 (BEAKER) (test 21 meq/L 22-29 hcsv=303) BLOOD UREA NITROGEN 15 mg/dL 7-21 (BEAKER) (test gesq=502) CREATININE (BEAKER) (test 1.60 mg/dL 0.57-1.25 kfmk=864) GLUCOSE RANDOM (BEAKER) 101 mg/dL 70-105 (test mhkn=489) CALCIUM (BEAKER) (test 8.7 mg/dL 8.4-10.2 rchz=610) EGFR (BEAKER) (test 44 mL/min/1.73 sq m ESTIMATED GFR IS NOT oexg=1681) ACCURATE CREATININE CLEARANCE IN PREDICTING GLOMERULAR FILTRATION RATE. ESTIMATED GFR IS NOT APPLICABLE FOR DIALYSIS PATIENTS. LIPID [id number] 04:26:00 Test Item Value Reference Range Comments TRIGLYCERIDES (BEAKER) (test foiq=833) 119 mg/dL CHOLESTEROL (BEAKER) (test rsmq=634) 123 mg/dL HDL CHOLESTEROL (BEAKER) (test qgtf=034) 26 mg/dL LDL CHOLESTEROL CALCULATED (BEAKER) (test 73 mg/dL hcqt=954) Triglyceride Reference Range: Low Risk <150 Borderline 150- 199 High Risk 200-499 Very High Risk >=500Cholesterol Reference Range: Low Risk <200 Borderline 200-239 High Risk > 240HDL Cholesterol Reference Range: Low Risk >=60 High Risk <40LDL Cholesterol Reference Range: Optimal <100 Near Optimal 100-129 Borderline 130-159 High 160-189 Very High >=[id number] 05:39:00 Test Item Value Reference Range Comments MAGNESIUM (BEAKER) (test tjgp=354) 2.0 mg/dL 1.6-2.6 BASIC METABOLIC [id number] 05:39:00 Test Item Value Reference Range Comments SODIUM (BEAKER) (test 137 meq/L 136-145 mzjj=789) POTASSIUM (BEAKER) (test 4.0 meq/L 3.5-5.1 hyzs=828) CHLORIDE (BEAKER) (test 109 meq/L 98-107 bwpm=658) CO2 (BEAKER) (test 22 meq/L 22-29 otjy=136) BLOOD UREA NITROGEN 16 mg/dL 7-21 (BEAKER) (test mmqi=359) CREATININE (BEAKER) (test 1.76 mg/dL 0.57-1.25 lpgu=814) GLUCOSE RANDOM (BEAKER) 101 mg/dL 70-105 (test kzxp=269) CALCIUM (BEAKER) (test 8.5 mg/dL 8.4-10.2 zpbg=899) EGFR (BEAKER) (test 39 mL/min/1.73 sq m ESTIMATED GFR IS NOT pxnt=9629) ACCURATE CREATININE CLEARANCE IN PREDICTING GLOMERULAR FILTRATION RATE. ESTIMATED GFR IS NOT APPLICABLE FOR DIALYSIS PATIENTS. CBC W/PLT COUNT & AUTO [id number] 05:04:00 Test Item Value Reference Range Comments WHITE BLOOD CELL COUNT (BEAKER) (test mswc=414) 8.2 K/ L 3.5-10.5 RED BLOOD CELL COUNT (BEAKER) (test fatv=831) 4.08 M/ L 4.63-6.08 HEMOGLOBIN (BEAKER) (test xsel=499) 13.1 GM/DL 13.7-17.5 HEMATOCRIT (BEAKER) (test plie=420) 40.2 % 40.1-51.0 MEAN CORPUSCULAR VOLUME (BEAKER) (test tyae=972) 98.5 fL 79.0-92.2 MEAN CORPUSCULAR HEMOGLOBIN (BEAKER) (test 32.1 pg 25.7-32.2 kfjg=850) MEAN CORPUSCULAR HEMOGLOBIN CONC (BEAKER) (test 32.6 GM/DL 32.3-36.5 lfzj=629) RED CELL DISTRIBUTION WIDTH (BEAKER) (test 15.0 % 11.6-14.4 sbtj=133) PLATELET COUNT (BEAKER) (test odvu=616) 153 K/CU MM 150-450 MEAN PLATELET VOLUME (BEAKER) (test bihl=602) 9.7 fL 9.4-12.4 NUCLEATED RED BLOOD CELLS (BEAKER) (test 0 /100 WBC 0-0 zimt=371) NEUTROPHILS RELATIVE PERCENT (BEAKER) (test 68 % lxsr=906) LYMPHOCYTES RELATIVE PERCENT (BEAKER) (test 19 % hfte=458) MONOCYTES RELATIVE PERCENT (BEAKER) (test 9 % metb=992) EOSINOPHILS RELATIVE PERCENT (BEAKER) (test 4 % fqpy=215) BASOPHILS RELATIVE PERCENT (BEAKER) (test 0 % xbhm=357) NEUTROPHILS ABSOLUTE COUNT (BEAKER) (test 5.57 K/ L 1.78-5.38 mzjt=952) LYMPHOCYTES ABSOLUTE COUNT (BEAKER) (test 1.60 K/ L 1.32-3.57 wyfb=954) MONOCYTES ABSOLUTE COUNT (BEAKER) (test 0.70 K/ L 0.30-0.82 tvyo=544) EOSINOPHILS ABSOLUTE COUNT (BEAKER) (test 0.30 K/ L 0.04-0.54 nwke=082) BASOPHILS ABSOLUTE COUNT (BEAKER) (test 0.03 K/ L 0.01-0.08 lmmb=595) IMMATURE GRANULOCYTES-RELATIVE PERCENT (BEAKER) 1 % 0-1 (test zkdu=6019) [id number] 07:37:00 Test Item Value Reference Range Comments MAGNESIUM (BEAKER) (test vybm=934) 2.0 mg/dL 1.6-2.6 BASIC METABOLIC [id number] 07:37:00 Test Item Value Reference Range Comments SODIUM (BEAKER) (test 136 meq/L 136-145 lmph=932) POTASSIUM (BEAKER) (test 4.4 meq/L 3.5-5.1 xlju=637) CHLORIDE (BEAKER) (test 106 meq/L 98-107 ujzj=228) CO2 (BEAKER) (test 22 meq/L 22-29 zuiy=525) BLOOD UREA NITROGEN 15 mg/dL 7-21 (BEAKER) (test krsv=976) CREATININE (BEAKER) (test 1.59 mg/dL 0.57-1.25 gilh=432) GLUCOSE RANDOM (BEAKER) 99 mg/dL 70-105 (test hvkn=552) CALCIUM (BEAKER) (test 8.7 mg/dL 8.4-10.2 eecy=153) EGFR (BEAKER) (test 44 mL/min/1.73 sq m ESTIMATED GFR IS NOT bpzi=0325) ACCURATE CREATININE CLEARANCE IN PREDICTING GLOMERULAR FILTRATION RATE. ESTIMATED GFR IS NOT APPLICABLE FOR DIALYSIS PATIENTS. BASIC METABOLIC [id number] 11:14:00 Test Item Value Reference Range Comments SODIUM (BEAKER) (test 139 meq/L 136-145 szqb=558) POTASSIUM (BEAKER) (test 4.5 meq/L 3.5-5.1 gqmw=388) CHLORIDE (BEAKER) (test 111 meq/L 98-107 jcab=280) CO2 (BEAKER) (test 21 meq/L 22-29 eotf=914) BLOOD UREA NITROGEN 12 mg/dL 7-21 (BEAKER) (test cexl=636) CREATININE (BEAKER) (test 1.58 mg/dL 0.57-1.25 xcby=159) GLUCOSE RANDOM (BEAKER) 103 mg/dL 70-105 (test xyhf=968) CALCIUM (BEAKER) (test 9.2 mg/dL 8.4-10.2 utzm=307) EGFR (BEAKER) (test 45 mL/min/1.73 sq m ESTIMATED GFR IS NOT fqdi=2469) ACCURATE CREATININE CLEARANCE IN PREDICTING GLOMERULAR FILTRATION RATE. ESTIMATED GFR IS NOT APPLICABLE FOR DIALYSIS PATIENTS. CBC W/PLT COUNT & AUTO [id number] 10:50:00 Test Item Value Reference Range Comments WHITE BLOOD CELL COUNT (BEAKER) (test stln=089) 8.7 K/ L 3.5-10.5 RED BLOOD CELL COUNT (BEAKER) (test bwyd=595) 4.12 M/ L 4.63-6.08 HEMOGLOBIN (BEAKER) (test kyuc=615) 13.4 GM/DL 13.7-17.5 HEMATOCRIT (BEAKER) (test hpzd=112) 41.5 % 40.1-51.0 MEAN CORPUSCULAR VOLUME (BEAKER) (test pjyl=800) 100.7 fL 79.0-92.2 MEAN CORPUSCULAR HEMOGLOBIN (BEAKER) (test 32.5 pg 25.7-32.2 erdp=205) MEAN CORPUSCULAR HEMOGLOBIN CONC (BEAKER) (test 32.3 GM/DL 32.3-36.5 asis=660) RED CELL DISTRIBUTION WIDTH (BEAKER) (test 15.1 % 11.6-14.4 pjcd=359) PLATELET COUNT (BEAKER) (test hkwz=751) 231 K/CU MM 150-450 MEAN PLATELET VOLUME (BEAKER) (test awvp=565) 8.9 fL 9.4-12.4 NUCLEATED RED BLOOD CELLS (BEAKER) (test 0 /100 WBC 0-0 vxfg=466) NEUTROPHILS RELATIVE PERCENT (BEAKER) (test 70 % lvyq=960) LYMPHOCYTES RELATIVE PERCENT (BEAKER) (test 21 % ykre=128) MONOCYTES RELATIVE PERCENT (BEAKER) (test 6 % ajot=407) EOSINOPHILS RELATIVE PERCENT (BEAKER) (test 3 % quxo=977) BASOPHILS RELATIVE PERCENT (BEAKER) (test 0 % bxpa=014) NEUTROPHILS ABSOLUTE COUNT (BEAKER) (test 6.04 K/ L 1.78-5.38 nnbt=879) LYMPHOCYTES ABSOLUTE COUNT (BEAKER) (test 1.80 K/ L 1.32-3.57 aigl=801) MONOCYTES ABSOLUTE COUNT (BEAKER) (test 0.51 K/ L 0.30-0.82 afci=999) EOSINOPHILS ABSOLUTE COUNT (BEAKER) (test 0.24 K/ L 0.04-0.54 majc=269) BASOPHILS ABSOLUTE COUNT (BEAKER) (test 0.02 K/ L 0.01-0.08 mxcg=440) IMMATURE GRANULOCYTES-RELATIVE PERCENT (BEAKER) 1 % 0-1 (test siyl=2588) GLUCOSE-STAT [id number] 10:35:00 Test Item Value Reference Range Comments GLUCOSE RANDOM (BEAKER) (test jlyc=765) 99 mg/dL 70-110 Only if arterial line in place and/or patient on ventilatorSODIUM NA-STAT [id number] 10:35:00 Test Item Value Reference Range Comments SODIUM (BEAKER) (test gwrr=426) 137 meq/L 135-148 Only if arterial line in place and/or patient on ventilatorPOTASSIUM-STAT [id number] 10:35:00 Test Item Value Reference Range Comments POTASSIUM (BEAKER) (test qlin=342) 4.4 meq/L 3.6-5.5 Only if arterial line in place and/or patient on ventilatorHGB/HCT (H&H) - STAT [id number] 10:35:00 Test Item Value Reference Range Comments HEMOGLOBIN (BEAKER) (test dntx=664) 14.2 g/dL 13.0-16.8 HEMATOCRIT (BEAKER) (test othb=270) 42.0 % 40.0-50.0 Only if arterial line in place and/or patient on ventilatorBLOOD GAS, [id number] 10:35:00 Test Item Value Reference Range Comments PH ARTERIAL (BEAKER) (test irac=309) 7.37 7.35-7.45 PCO2 ARTERIAL (BEAKER) (test owjn=719) 37 mmHg 35-45 PO2 ARTERIAL (BEAKER) (test kwcz=998) 132 mmHg 80-90 O2 SATURATION ARTERIAL (BEAKER) (test lege=206) 98.6 % 96.0-97.0 HCO3 ARTERIAL (BEAKER) (test maet=102) 21 mmol/L 21-29 BASE EXCESS ARTERIAL (BEAKER) (test ufvl=786) -4.0 mmol/L -2.0-3.0 PATIENT TEMPERATURE (BEAKER) (test zdez=0527) 36.4 C FIO2 (BEAKER) (test kphj=7248) 48.0 % Only if arterial line in place and/or patient on ventilatorBLOOD GAS, [id number] 09:03:00 Test Item Value Reference Range Comments PH ARTERIAL (BEAKER) (test jxzp=524) 7.36 7.35-7.45 PCO2 ARTERIAL (BEAKER) (test noru=677) 40 mmHg 35-45 PO2 ARTERIAL (BEAKER) (test qvgl=634) 153 mmHg 80-90 O2 SATURATION ARTERIAL (BEAKER) (test nmjk=942) 99.0 % 96.0-97.0 HCO3 ARTERIAL (BEAKER) (test nddx=009) 23 mmol/L 21-29 BASE EXCESS ARTERIAL (BEAKER) (test tkbn=062) -3.1 mmol/L -2.0-3.0 PATIENT TEMPERATURE (BEAKER) (test gows=3838) 35.3 C FIO2 (BEAKER) (test bspl=4544) 60.0 % CALCIUM, [id number] 09:03:00 Test Item Value Reference Range Comments CALCIUM IONIZED (BEAKER) (test kpnd=753) 1.06 mmol/L 1.12-1.27 PH, BLOOD (BEAKER) (test omzj=6347) 7.34 GLUCOSE-STAT [id number] 09:02:00 Test Item Value Reference Range Comments GLUCOSE RANDOM (BEAKER) (test ubdl=392) 106 mg/dL 70-110 SODIUM NA-STAT [id number] 09:02:00 Test Item Value Reference Range Comments SODIUM (BEAKER) (test gvwi=175) 136 meq/L 135-148 POTASSIUM-STAT [id number] 09:02:00 Test Item Value Reference Range Comments POTASSIUM (BEAKER) (test mslp=460) 4.2 meq/L 3.6-5.5 HGB/HCT (H&H) - STAT [id number] 09:02:00 Test Item Value Reference Range Comments HEMOGLOBIN (BEAKER) (test zjua=885) 13.5 g/dL 13.0-16.8 HEMATOCRIT (BEAKER) (test odwz=200) 40.0 % 40.0-50.0 URINALYSIS W/ [id number] 07:46:00 Test Item Value Reference Range Comments COLOR (BEAKER) (test nyuw=116) Light Yellow CLARITY (BEAKER) (test nqgv=190) Clear SPECIFIC GRAVITY UA (BEAKER) (test umxm=454) 1.009 1.001-1.035 PH UA (BEAKER) (test zhfx=857) 6.0 5.0-8.0 PROTEIN UA (BEAKER) (test tzfq=583) Negative Negative GLUCOSE UA (BEAKER) (test miuw=890) Negative Negative KETONES UA (BEAKER) (test juya=725) Negative Negative BILIRUBIN UA (BEAKER) (test kduz=710) Negative Negative BLOOD UA (BEAKER) (test bezc=242) Negative Negative NITRITE UA (BEAKER) (test hywe=128) Negative Negative LEUKOCYTE ESTERASE UA (BEAKER) (test hkig=844) Negative Negative UROBILINOGEN UA (BEAKER) (test kvkz=933) 0.2 mg/dL 0.2-1.0 RBC UA (BEAKER) (test enbq=048) 1 /HPF WBC UA (BEAKER) (test qsru=124) < /HPF SOURCE(BEAKER) (test pxvk=3259) Urine, Voided [id number] 04:52:00 Test Item Value Reference Range Comments MAGNESIUM (BEAKER) (test waih=287) 2.1 mg/dL 1.6-2.6 COMPREHENSIVE METABOLIC [id number] 04:52:00 Test Item Value Reference Range Comments TOTAL PROTEIN (BEAKER) 6.2 gm/dL 6.0-8.3 (test dzez=504) ALBUMIN (BEAKER) (test 3.6 g/dL 3.5-5.0 qhsk=5340) ALKALINE PHOSPHATASE 83 U/L 40-150 (BEAKER) (test dhpp=367) BILIRUBIN TOTAL (BEAKER) 0.4 mg/dL 0.2-1.2 (test qprn=087) SODIUM (BEAKER) (test 137 meq/L 136-145 pwpc=558) POTASSIUM (BEAKER) (test 4.4 meq/L 3.5-5.1 lzpp=407) CHLORIDE (BEAKER) (test 108 meq/L 98-107 auku=942) CO2 (BEAKER) (test 22 meq/L 22-29 rqiv=779) BLOOD UREA NITROGEN 14 mg/dL 7-21 (BEAKER) (test mcmu=393) CREATININE (BEAKER) (test 1.61 mg/dL 0.57-1.25 bltj=909) GLUCOSE RANDOM (BEAKER) 89 mg/dL 70-105 (test gigj=977) CALCIUM (BEAKER) (test 8.9 mg/dL 8.4-10.2 npth=239) AST (SGOT) (BEAKER) (test 18 U/L 5-34 cykp=214) ALT (SGPT) (BEAKER) (test 15 U/L 6-55 pehs=303) EGFR (BEAKER) (test 44 mL/min/1.73 sq m ESTIMATED GFR IS NOT wayo=9053) ACCURATE CREATININE CLEARANCE IN PREDICTING GLOMERULAR FILTRATION RATE. ESTIMATED GFR IS NOT APPLICABLE FOR DIALYSIS PATIENTS. [id number] 04:50:00 Test Item Value Reference Range Comments PARTIAL THROMBOPLASTIN TIME (BEAKER) (test 27.8 seconds 22.5-36.0 vtck=635) PROTHROMBIN [id number] 04:49:00 Test Item Value Reference Range Comments PROTIME (BEAKER) (test wjhm=136) 13.0 seconds 11.7-14.7 INR (BEAKER) (test mjtr=724) 1.0 <=5.9 RECOMMENDED COUMADIN/WARFARIN INR THERAPY RANGESSTANDARD DOSE: 2.0 - 3.0 Includes: PROPHYLAXIS forvenous thrombosis, systemic embolization; TREATMENT for venous thrombosis and/or pulmonary embolus.HIGH RISK: Target INR is 2.5-3.5 for patients with mechanical heart valves.CBC W/PLT COUNT & AUTO [id number] 04:34:00 Test Item Value Reference Range Comments WHITE BLOOD CELL COUNT (BEAKER) (test hghi=952) 7.6 K/ L 3.5-10.5 RED BLOOD CELL COUNT (BEAKER) (test fqit=887) 4.47 M/ L 4.63-6.08 HEMOGLOBIN (BEAKER) (test hnkp=590) 14.4 GM/DL 13.7-17.5 HEMATOCRIT (BEAKER) (test ogjl=661) 44.2 % 40.1-51.0 MEAN CORPUSCULAR VOLUME (BEAKER) (test ehhl=386) 98.9 fL 79.0-92.2 MEAN CORPUSCULAR HEMOGLOBIN (BEAKER) (test 32.2 pg 25.7-32.2 zosr=324) MEAN CORPUSCULAR HEMOGLOBIN CONC (BEAKER) (test 32.6 GM/DL 32.3-36.5 vtib=116) RED CELL DISTRIBUTION WIDTH (BEAKER) (test 14.8 % 11.6-14.4 przn=828) PLATELET COUNT (BEAKER) (test metr=613) 244 K/CU MM 150-450 MEAN PLATELET VOLUME (BEAKER) (test svgd=210) 9.2 fL 9.4-12.4 NUCLEATED RED BLOOD CELLS (BEAKER) (test 0 /100 WBC 0-0 zlvq=592) NEUTROPHILS RELATIVE PERCENT (BEAKER) (test 68 % yprm=595) LYMPHOCYTES RELATIVE PERCENT (BEAKER) (test 20 % qsuo=727) MONOCYTES RELATIVE PERCENT (BEAKER) (test 7 % zhgd=906) EOSINOPHILS RELATIVE PERCENT (BEAKER) (test 5 % qoja=487) BASOPHILS RELATIVE PERCENT (BEAKER) (test 0 % fhoc=994) NEUTROPHILS ABSOLUTE COUNT (BEAKER) (test 5.11 K/ L 1.78-5.38 hwbe=143) LYMPHOCYTES ABSOLUTE COUNT (BEAKER) (test 1.54 K/ L 1.32-3.57 wtvo=672) MONOCYTES ABSOLUTE COUNT (BEAKER) (test 0.51 K/ L 0.30-0.82 famj=091) EOSINOPHILS ABSOLUTE COUNT (BEAKER) (test 0.36 K/ L 0.04-0.54 wdcv=086) BASOPHILS ABSOLUTE COUNT (BEAKER) (test 0.03 K/ L 0.01-0.08 qqwa=397) IMMATURE GRANULOCYTES-RELATIVE PERCENT (BEAKER) 0 % 0-1 (test ezms=1133) RAD, CHEST, 1 VIEW, NON [id number] 22:42:00Reason for exam:->pre op evalShould this be performed at the bedside?->YesFINAL REPORT INDICATION: pre op eval COMPARISON: None TECHNIQUE: Single frontal view of the chest. FINDINGS: Lungs and pleura: Clear lungs. No effusion.Heart and mediastinum: Normal heart size. Unremarkable mediastinal contours.Osseous structures: No acute abnormality.Other: None. IMPRESSION: No acute intrathoracic abnormality. Signed: JR Horta Robert MDReport Verified Date/Time: 11/16/2017 22:42:55 Reading Location: [address] Reading Room
[2018-06-15] MEDS ORDERED: ONDANSETRON 4 MG (ODT) TAB PO PRN (17:27)
[2018-06-15] MEDS ORDERED: HYDROCODONE/APAP 10/325 TAB PO PRN (17:27)
[2018-06-15] MEDS ORDERED: AMLODIPINE 5 MG TAB PO SCH (20:00)
[2018-06-15] MEDS ORDERED: MINOCYCLINE HCL 50 MG CAP PO SCH (20:00)
[2018-06-15] MEDS ORDERED: APIXABAN 2.5 MG TABLET PO SCH (20:00)
[2018-06-15 20:15] LABS: Urine Appearance CLEAR; Urine Bilirubin NEGATIVE (NEG); Urine Blood NEGATIVE (NEG); Urine Color YELLOW; Urine Glucose NEGATIVE (NEG); Urine Protein NEGATIVE (NEG); Urine Specific Gravity 1.015 (1.005-1.030); Urine Urobilinogen 0.2 mg/dL (0.2-1.0)
[2018-06-15 20:21] VITALS: BMI 22.6
[2018-06-15 20:24] LABS: Urine Bacteria NONE SEEN /HPF (NONE SEEN); Urine RBC <5 /HPF (NONE SEEN)
[2018-06-15 20:25] LABS: Urine Culture Reflex Order NOT NEEDED
[2018-06-15] MEDS: GABAPENTIN 300 MG CAP PO SCH (20:29)
[2018-06-15] MEDS: DOCUSATE NA/SENNA CONC 1 TAB PO SCH (20:29)
[2018-06-15] MEDS ORDERED: GABAPENTIN 100 MG CAP PO SCH (21:00)
--- NOTE | 2018-06-16 01:36 | FAST ---
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 David Sosa M.D. ADMISSION DIAGNOSIS: - Amputation of Limb 05 - Unilateral Lower Limb Above the Knee (AK) (05.3) Peripheral vascular disease. EATING: Activity did not occur on this shift EATING - SCORE: 0-UNK GROOMING: Activity did not occur on this shift GROOMING - SCORE: 0-UNK BATHING: Activity did not occur on this shift BATHING - SCORE: 0-UNK DRESSING - UPPER BODY: Patient is not dressing in public clothing ARTICLES SCORE Total number of steps: 0 DRESSING - UPPER BODY - SCORE: 0-UNK DRESSING - LOWER BODY: Patient is not dressing in public clothing ARTICLES SCORE Total number of steps: 0 DRESSING - LOWER BODY - SCORE: 0-UNK TOILETING: TOILETING - STEP 1: Does the patient require the assistance of a person or device, or need extra time with toileting? Yes . TOILETING - STEP 2: Does the patient require the assistance of a helper? Yes. TOILETING - STEP 3: How much assistance does the patient require from the helper? Hands-on assistance from the helper TOILETING - STEP 4: Of the 3 tasks: 1) Adjusting clothing prior to use, 2) Cleansing of perineal area, 3) Adjusting clot boyd after use; How many tasks does the patient perform WITHOUT assistance of the helper? Three tasks with steadying assistance from the helper TOILETING - SCORE: 4-MIN BLADDER MANAGEMENT: BLADDER MANAGEMENT - STEP 1: Does the patient control the bladder completely and intentionally without equipment or devices or med ications, and is always continent? No. BLADDER MANAGEMENT - STEP 2: Does the patient require the assistance of a helper? Yes. BLADDER MANAGEMENT - STEP 3: How much assistance does the patient require from the helper? Only supervision, stand-by, cuing, or c oaxing BLADDER MANAGEMENT - SCORE: 5-SUP BOWEL MANAGEMENT: Activity did not occur on this shift BOWEL MANAGEMENT - SCORE: 7-IND TRANSFERS: BED, CHAIR, WHEELCHAIR: Activity did not occur on this shift TRANSFERS: BED, CHAIR, WHEELCHAIR - SCORE: 0-UNK TRANSFERS: TOILET: Activity did not occur on this shift TRANSFERS: TOILET - SCORE: 0-UNK TRANSFERS: SHOWER: Activity did not occur on this shift TRANSFERS: SHOWER - SCORE: 0-UNK TRANSFERS: TUB: Activity did not occur on this shift TRANSFERS: TUB - SCORE: 0-UNK LOCOMOTION: WALK: Activity did not occur on this shift LOCOMOTION: WALK - SCORE: 0-UNK LOCOMOTION: WHEELCHAIR: Activity did not occur on this shift LOCOMOTION: WHEELCHAIR - SCORE: 0-UNK COMPREHENSION: COMPREHENSION: TYPE: Both COMPREHENSION - STEP 1: Does the patient require help from a person or device, or need extra time to understand complex and a bstract ideas (such as current events, finances, discharge planning, medical issues, relationships, e tc)? No. COMPREHENSION - STEP 2: Does the patient need extra time, require an assistive device (such as glasses for visual comprehensi on or a hearing aid for auditory comprehension) or does s/he have mild difficulty understanding compl ex and abstract information? Yes. COMPREHENSION - SCORE: 6-ANA ROSA EXPRESSION EXPRESSION: TYPE: Both EXPRESSION - STEP 1: Does the patient require help from a person or device, or need extra time expressing complex and abst ract ideas (such as current events, finances, discharge planning, medical issues, relationships, etc) ? No. EXPRESSION - STEP 2: Does the patient need extra time, require an assistive device (such as augmentive communication syste m or a communication board), OR does s/he have mild difficulty expressing complex and abstract ideas (including mild dysarthria or mild word-find problems)? No. EXPRESSION - SCORE: 7-IND SOCIAL INTERACTION: SOCIAL INTERACTION - STEP 1: Does the patient require a helper to interact with others in social and therapeutic situations? No. SOCIAL INTERACTION - STEP 2: Does the patient need extra time in social situations, OR does s/he interact with staff, other patien ts, and family members ONLY in structured environments, OR does s/he require medication for social in teraction? No. SOCIAL INTERACTION - SCORE: 7-IND PROBLEM SOLVING: PROBLEM SOLVING - STEP 1: Does the patient need help from a person or device, or need extra time to solve complex problems such as managing a checking account or confronting interpersonal problems? No. PROBLEM SOLVING - STEP 2: Does the patient require extra time to make decisions or solve problems, OR does s/he have slight dif ficulty reading, initiating, or self-correcting in unfamiliar situations? Yes, patient needs extra ti me. PROBLEM SOLVING - SCORE: 6-ANA ROSA MEMORY: MEMORY - STEP 1: Does the patient need help from a person or device, or need extra time to remember frequently encount ered people, daily routines, and executing requests? No. MEMORY - STEP 2: Does the patient have slight difficulty recognizing frequently encountered people, daily routines, or executing requests without the need for repetition or using self-initiated or environmental cues to remember? Yes. MEMORY - SCORE: 6-ANA ROSA SIGNATURE PANEL: The following modified sections: Eating - Score, Grooming - Score, Dressing - Upper Body - Score, Allen ssing - Lower Body - Score, Toileting - Score, Bladder Management - Score, Bowel Management - Score, Transfers: Bed, Chair, Wheelchair - Score, Transfers: Toilet - Score, Transfers: Shower - Score, [place] sfers: Tub - Score, Locomotion: Walk - Score, Locomotion: Wheelchair - Score, Comprehension - Score, Expression - Score, Social Interaction - Score, Problem Solving - Score, Memory - Score were [electro nically] signed by Peg Hoffman CNA on TueJun 16 2018 01:35:05 GMT-0600 (Central Standard Time)
[2018-06-16 06:38] LABS: Absolute Lymphocytes (CBC) 1.6 K/uL (0.7-4.9); Absolute Monocytes 0.9 K/uL (0.1-1.3); Absolute Neutrophil 3.1 K/uL (1.8-8.0); Basophils % 0.9 % (0-1.3); Eosinophils % 3.3 % (0-4.4); Hematocrit 31.4 % (39.6-49.0); Lymphocytes % 26.9 % (15.3-44.8); MPV 7.4 fL (7.6-11.3); Monocytes % 15.1 % (3.3-12.3); RBC Red Blood Cell Count 3.58 M/uL (4.33-5.43)
[2018-06-16] MEDS: PANTOPRAZOLE 40MG TABLET PO SCH (06:52)
[2018-06-16 06:59] LABS: Albumin 2.9 g/dL (3.4-5.0); Magnesium 2.5 mg/dL (1.8-2.4); Potassium 4.5 mmol/L (3.5-5.1); Prealbumin 21.6 mg/dL (20-40)
[2018-06-16] MEDS ORDERED: POLYETHYL GLY 3350 17 GM/DOSE PO SCH (08:00)
[2018-06-16] MEDS: POLYETHYL GLY 3350 17 GM/DOSE PO SCH (08:00)
[2018-06-16] MEDS: HEPARIN 5000 UNIT/ML 1 ML VIAL SQ SCH ×2 (08:14→18:30)
[2018-06-16] MEDS: MINOCYCLINE HCL 50 MG CAP PO SCH ×2 (08:15→19:37)
[2018-06-16] MEDS: GABAPENTIN 300 MG CAP PO SCH ×2 (08:15→19:37)
[2018-06-16] MEDS: AMLODIPINE 5 MG TAB PO SCH ×2 (08:16→19:37)
[2018-06-16] MEDS: ASPIRIN 81 MG CHEWABLE TABLET PO SCH (08:16)
--- NOTE | 2018-06-16 09:28 | FAST ---
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 David Sosa M.D. ADMISSION DIAGNOSIS: - Amputation of Limb 05 - Unilateral Lower Limb Above the Knee (AK) (05.3) Peripheral vascular disease. EATING: EATING - STEP 1: Does the patient require the assistance of a person or device, or need extra time when eating? No. EATING - SCORE: 7-IND GROOMING: Comb/brush hair Oral care Wash, rinse, and dry face Wash, rinse, and dry hands GROOMING - STEP 1: Does the patient require the assistance of a person or device, or need extra time when grooming? Yes. GROOMING - STEP 2: Does the patient require the assistance of a helper? No. The patient only requires an assistive devic e, OR takes more than reasonable time to groom, OR there is a concern for safety as the patient groom s GROOMING - SCORE: 6-ANA ROSA BATHING: Activity did not occur on this shift BATHING - SCORE: 0-UNK DRESSING - UPPER BODY: T-shirt/pullover shirt (four steps) ARTICLES SCORE Total number of steps: 4 DRESSING - UPPER BODY - STEP 1: Does the patient require help from a person or device, or need extra time when dressing above the carla st? Yes. DRESSING - UPPER BODY - STEP 2: Does the patient require the assistance of a helper? No. Patient only requires an assistive device, s uch as a button hook, velcro, or motorized squad lieutenant. OR s/he takes more than reasonable time as s/he dresses the upper body. OR there is a concern for safety when s/he dresses the upper body DRESSING - UPPER BODY - SCORE: 6-ANA ROSA DRESSING - LOWER BODY: Zippered pants (four steps) ARTICLES SCORE Total number of steps: 4 DRESSING - LOWER BODY - STEP 1: Does the patient require help from a person or device, or need extra time when dressing below the carla st? Yes. DRESSING - LOWER BODY - STEP 2: Does the patient require the assistance of a helper? Yes. DRESSING - LOWER BODY - STEP 3: Does the helper touch the patient while dressing? Yes. DRESSING - LOWER BODY - STEP 4: How many of the total steps does the patient complete on his/her own? 2 DRESSING - LOWER BODY - SCORE: 3-MOD TOILETING: TOILETING - STEP 1: Does the patient require the assistance of a person or device, or need extra time with toileting? Yes . TOILETING - STEP 2: Does the patient require the assistance of a helper? No. TOILETING - SCORE: 6-ANA ROSA BLADDER MANAGEMENT: BLADDER MANAGEMENT - STEP 1: Does the patient control the bladder completely and intentionally without equipment or devices or med ications, and is always continent? Yes. BLADDER MANAGEMENT - SCORE: 7-IND BLADDER MANAGEMENT - FREQUENCY OF ACCIDENTS: BLADDER MANAGEMENT(FA) - STEP 1: How many accidents has the patient had during the current shift? 0 BOWEL MANAGEMENT: BOWEL MANAGEMENT - STEP 1: Does the patient control bowels completely and intentionally without equipment devices or medications AND is always continent? Yes. BOWEL MANAGEMENT - SCORE: 7-IND BOWEL MANAGEMENT - FREQUENCY OF ACCIDENTS: BOWEL MANAGEMENT(FA) - STEP 1: How many accidents has the patient had during the current shift? 0 TRANSFERS: BED, CHAIR, WHEELCHAIR: TRANSFERS: BED, CHAIR, WHEELCHAIR - STEP 1: Does the patient require assistance of a person or device, or need extra time with bed, chair, or whe elchair transfers? Yes. TRANSFERS: BED, CHAIR, WHEELCHAIR - STEP 2: Does the patient require the assistance of a helper? Yes. TRANSFERS: BED, CHAIR, WHEELCHAIR - STEP 3: How much assistance does the patient require from the helper? Lifting of the patient TRANSFERS: BED, CHAIR, WHEELCHAIR - STEP 4: Does the helper lift the patient ONLY up? ONLY down? Up AND Down? ONLY up. TRANSFERS: BED, CHAIR, WHEELCHAIR - SCORE: 3-MOD TRANSFERS: TOILET: TRANSFERS: TOILET - STEP 1: Does the patient require the assistance of a person or device, or need extra time with toilet transfe rs? Yes. TRANSFERS: TOILET - STEP 2: Does the patient require the assistance of a helper? Yes. TRANSFERS: TOILET - STEP 3: How much assistance does the patient require from the helper? Patient performs half or more of the tr ansferring tasks TRANSFERS: TOILET - STEP 4: Does the patient need only incidental help such as contact guard or steadying during toilet transfer? No. Patient needs more than incidental help TRANSFERS: TOILET - SCORE: 3-MOD TRANSFERS: SHOWER: Activity did not occur on this shift TRANSFERS: SHOWER - SCORE: 0-UNK TRANSFERS: TUB: Activity did not occur on this shift TRANSFERS: TUB - SCORE: 0-UNK LOCOMOTION: WALK: Activity did not occur on this shift LOCOMOTION: WALK - SCORE: 0-UNK LOCOMOTION: WHEELCHAIR: Activity did not occur on this shift LOCOMOTION: WHEELCHAIR - SCORE: 0-UNK COMPREHENSION: COMPREHENSION - SCORE: 0-UNK EXPRESSION EXPRESSION - SCORE: 0-UNK SOCIAL INTERACTION: SOCIAL INTERACTION - SCORE: 0-UNK PROBLEM SOLVING: PROBLEM SOLVING - SCORE: 0-UNK MEMORY: MEMORY - SCORE: 0-UNK SIGNATURE PANEL: The following modified sections: Eating - Score, Grooming - Score, Bathing - Score, Dressing - Upper Body - Score, Dressing - Lower Body - Score, Toileting - Score, Bladder Management - Score, Bowel Man agement - Score, Transfers: Bed, Chair, Wheelchair - Score, Transfers: Toilet - Score, Transfers: Iraida wer - Score, Transfers: Tub - Score, Locomotion: Walk - Score, Locomotion: Wheelchair - Score, Compre hension - Score, Expression - Score, Social Interaction - Score, Problem Solving - Score, Memory - Sc ore were [electronically] signed by Shari Fernandez CNA on TueJun 16 2018 09:28:15 GMT-0600 (Centra l Standard Time)
--- NOTE | 2018-06-16 09:33 | P.RH.PN ---
Estimated Length of Stay: 14 Expected Discharge Date: 06/29/18 Discharge Disposition Plan: Home Family Support: Yes Snf Goal: Mobility, Transfers, Self Care Vital Signs: Last Vital Signs Temp 97.2 F 06/16/18 08:20 Pulse 72 06/16/18 08:20 Resp 16 06/16/18 08:20 BP 136/75 06/16/18 08:20 Pulse Ox 99 06/16/18 08:20 Laboratory: Laboratory Last Values WBC 5.8 K/uL (4.3-10.9) D 06/16/18 06:08 RBC 3.58 M/uL (4.33-5.43) L 06/16/18 06:08 Hgb 10.4 g/dL (13.6-17.9) L 06/16/18 06:08 Hct 31.4 % (39.6-49.0) L 06/16/18 06:08 MCV 87.9 fL (80-100) 06/16/18 06:08 MCH 29.0 pg (27.0-35.0) 06/16/18 06:08 MCHC 33.0 g/dL (32.0-36.0) 06/16/18 06:08 RDW 15.8 % (12.1-15.2) H 06/16/18 06:08 Plt Count 329 K/uL (152-406) 06/16/18 06:08 MPV 7.4 fL (7.6-11.3) L 06/16/18 06:08 Neutrophils % 53.8 % (41.7-73.7) 06/16/18 06:08 Lymphocytes % 26.9 % (15.3-44.8) 06/16/18 06:08 Monocytes % 15.1 % (3.3-12.3) H 06/16/18 06:08 Eosinophils % 3.3 % (0-4.4) 06/16/18 06:08 Basophils % 0.9 % (0-1.3) 06/16/18 06:08 Absolute Neutrophils 3.1 K/uL (1.8-8.0) 06/16/18 06:08 Absolute Lymphocytes 1.6 K/uL (0.7-4.9) 06/16/18 06:08 Absolute Monocytes 0.9 K/uL (0.1-1.3) 06/16/18 06:08 Absolute Eosinophils 0.2 K/uL (0-0.5) 06/16/18 06:08 Absolute Basophils 0.1 K/uL (0-0.5) 06/16/18 06:08 Sodium 140 mmol/L (136-145) 06/16/18 06:08 Potassium 4.5 mmol/L (3.5-5.1) 06/16/18 06:08 Chloride 108 mmol/L (98-107) H 06/16/18 06:08 Carbon Dioxide 27 mmol/L (21-32) 06/16/18 06:08 BUN 22 mg/dL (7-18) H 06/16/18 06:08 Creatinine 1.48 mg/dL (0.55-1.3) H 06/16/18 06:08 Estimated GFR 48 mL/min (=/>90) L 06/16/18 06:08 Glucose 104 mg/dL (74-106) 06/16/18 06:08 Calcium 8.8 mg/dL (8.5-10.1) 06/16/18 06:08 Magnesium 2.5 mg/dL (1.8-2.4) H D 06/16/18 06:08 Albumin 2.9 g/dL (3.4-5.0) L 06/16/18 06:08 Prealbumin 21.6 mg/dL (20-40) 06/16/18 06:08 Urine Color Yellow 06/15/18 18:50 Urine Appearance Clear 06/15/18 18:50 Urine pH 6.0 (5.0-7.0) 06/15/18 18:50 Ur Specific [place] 1.015 (1.005-1.030) 06/15/18 18:50 Urine Ketones Negative (NEG) 06/15/18 18:50 Urine Blood Negative (NEG) 06/15/18 18:50 Urine Nitrite Negative (NEG) 06/15/18 18:50 Urine Bilirubin Negative (NEG) 06/15/18 18:50 Urine Urobilinogen 0.2 mg/dL (0.2-1.0) 06/15/18 18:50 Ur Leukocyte Esterase Negative (NEG) 06/15/18 18:50 Urine RBC <5 /HPF (NONE SEEN) 06/15/18 18:50 Urine WBC None seen /HPF (<5) 06/15/18 18:50 Ur Squamous Epith Cells <5 /HPF (NONE SEEN) 06/15/18 18:50 Urine Bacteria None seen /HPF (NONE SEEN) 06/15/18 18:50 Urine Culture Reflexed Not needed 06/15/18 18:50 Urine Glucose Negative (NEG) 06/15/18 18:50 Urine Total Protein Negative (NEG) 06/15/18 18:50 Weight: 176 lb 6 oz Wound Present: Yes Closed Surgical Incision Present: Yes Physician Update: Labs have been reviewed and show mildly low Hgb of 10.4. 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 He is able to transfer on his own but requires moderate assistance for ambulation and ADLs. He will be evaluated by PT and OT today. Summary: Patient's care plan and halfway goals have been reviewed and revised as necessary. Please see the Rehabilitation Signature page for all necessary signatures.
--- NOTE | 2018-06-16 13:28 | FAST ---
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 David Sosa M.D. ADMISSION DIAGNOSIS: - Amputation of Limb 05 - Unilateral Lower Limb Above the Knee (AK) (05.3) Peripheral vascular disease. EATING: Activity did not occur on this shift EATING - SCORE: 0-UNK GROOMING: Patient applied make-up Wash, rinse, and dry face Wash, rinse, and dry hands GROOMING - STEP 1: Does the patient require the assistance of a person or device, or need extra time when grooming? Yes. GROOMING - STEP 2: Does the patient require the assistance of a helper? Yes. GROOMING - STEP 3: How much assistance does the patient require from the helper? Only prior equipment preparation/set up from the helper GROOMING - SCORE: 5-SUP BATHING: Abdomen Buttocks Chest Left arm Left lower leg and foot Left upper leg Perineal area Right arm Right upper leg BATHING - STEP 1: Does the patient require the assistance of a person or device, or need extra time when bathing? Yes. BATHING - STEP 2: Does the patient require the assistance of a helper? Yes. BATHING - STEP 3: How much assistance does the patient require from the helper? Only incidental help such as placement of a wash cloth in his/her hand a few times as s/he bathes OR help to bathe just one or two areas of the body BATHING - SCORE: 4-MIN DRESSING - UPPER BODY: T-shirt/pullover shirt (four steps) ARTICLES SCORE Total number of steps: 4 DRESSING - UPPER BODY - STEP 1: Does the patient require help from a person or device, or need extra time when dressing above the carla st? Yes. DRESSING - UPPER BODY - STEP 2: Does the patient require the assistance of a helper? Yes. DRESSING - UPPER BODY - STEP 3: Does the helper touch the patient while dressing? No. DRESSING - UPPER BODY - SCORE: 5-SUP DRESSING - LOWER BODY: Sock - Left foot (one step) Underwear (three steps) Zippered pants (four steps) ARTICLES SCORE Total number of steps: 8 DRESSING - LOWER BODY - STEP 1: Does the patient require help from a person or device, or need extra time when dressing below the carla st? Yes. DRESSING - LOWER BODY - STEP 2: Does the patient require the assistance of a helper? Yes. DRESSING - LOWER BODY - STEP 3: Does the helper touch the patient while dressing? Yes. DRESSING - LOWER BODY - STEP 4: How many of the total steps does the patient complete on his/her own? 4 DRESSING - LOWER BODY - SCORE: 3-MOD TOILETING: Activity did not occur on this shift TOILETING - SCORE: 0-UNK BLADDER MANAGEMENT: Activity did not occur on this shift BLADDER MANAGEMENT - SCORE: 7-IND BOWEL MANAGEMENT: Activity did not occur on this shift BOWEL MANAGEMENT - SCORE: 7-IND TRANSFERS: BED, CHAIR, WHEELCHAIR: Activity did not occur on this shift TRANSFERS: BED, CHAIR, WHEELCHAIR - SCORE: 0-UNK TRANSFERS: TOILET: Activity did not occur on this shift TRANSFERS: TOILET - SCORE: 0-UNK TRANSFERS: SHOWER: Activity did not occur on this shift TRANSFERS: SHOWER - SCORE: 0-UNK TRANSFERS: TUB: TRANSFERS: TUB - STEP 1: Does the patient require the assistance of a person or device, or need extra time with tub transfers? Yes. TRANSFERS: TUB - STEP 2: Does the patient require the assistance of a helper? Yes. TRANSFERS: TUB - STEP 3: How much assistance does the patient require from the helper? Incidental help such as contact guardin g or steadying, OR help to lift one leg into the tub TRANSFERS: TUB - SCORE: 4-MIN LOCOMOTION: WALK: Activity did not occur on this shift LOCOMOTION: WALK - SCORE: 0-UNK LOCOMOTION: WHEELCHAIR: Activity did not occur on this shift LOCOMOTION: WHEELCHAIR - SCORE: 0-UNK LOCOMOTION: STAIRS: Activity did not occur on this shift LOCOMOTION: STAIRS - SCORE: 0-UNK COMPREHENSION: COMPREHENSION: TYPE: Both COMPREHENSION - STEP 1: Does the patient require help from a person or device, or need extra time to understand complex and a bstract ideas (such as current events, finances, discharge planning, medical issues, relationships, e tc)? Yes. COMPREHENSION - STEP 2: Does the patient require help to understand questions or statements about basic needs or ideas (such as hunger, thirst, sleep, safety, daily schedule, room location, or discomfort) half or more of the t isaias? No. COMPREHENSION - STEP 3: How often does the patient need help to understand directions and conversation about basic needs? Les s than 10% of the time COMPREHENSION - SCORE: 5-SUP EXPRESSION EXPRESSION: TYPE: Both EXPRESSION - STEP 1: Does the patient require help from a person or device, or need extra time expressing complex and abst ract ideas (such as current events, finances, discharge planning, medical issues, relationships, etc) ? Yes. EXPRESSION - STEP 2: Does the patient require help to express basic necessities or ideas (such as hunger, thirst, sleep, s afety, daily schedule, room location, or discomfort) half or more of the time? No. EXPRESSION - STEP 3: How often does the patient need help to express directions and conversation about basic needs? Less t gould 10% of the time EXPRESSION - SCORE: 5-SUP SOCIAL INTERACTION: SOCIAL INTERACTION - STEP 1: Does the patient require a helper to interact with others in social and therapeutic situations? No. SOCIAL INTERACTION - STEP 2: Does the patient need extra time in social situations, OR does s/he interact with staff, other patien ts, and family members ONLY in structured environments, OR does s/he require medication for social in teraction? Yes, patient needs extra time SOCIAL INTERACTION - SCORE: 6-ANA ROSA PROBLEM SOLVING: PROBLEM SOLVING - STEP 1: Does the patient need help from a person or device, or need extra time to solve complex problems such as managing a checking account or confronting interpersonal problems? Yes. PROBLEM SOLVING - STEP 2: Does the patient solve basic routine problems half or more of the time? Yes. PROBLEM SOLVING - STEP 3: How often does the patient need help to solve basic routine problems? 10%-24% of the time PROBLEM SOLVING - SCORE: 4-MIN MEMORY: MEMORY - STEP 1: Does the patient need help from a person or device, or need extra time to remember frequently encount ered people, daily routines, and executing requests? Yes. MEMORY - STEP 2: How often does the patient need help to remember frequently encountered people, daily routines, and e xecuting requests? 10% - 24% of the time MEMORY - SCORE: 4-MIN SIGNATURE PANEL: The following modified sections: Eating - Score, Grooming - Score, Bathing - Score, Dressing - Upper Body - Score, Dressing - Lower Body - Score, Toileting - Score, Transfers: Bed, Chair, Wheelchair - S core, Transfers: Toilet - Score, Transfers: Shower - Score, Transfers: Tub - Score, Comprehension - S core, Expression - Score, Social Interaction - Score, Problem Solving - Score, Memory - Score were [e lectronically] signed by Latosha Scales OT on TueJun 16 2018 13:28:31 [facility]00 ([facility])
--- NOTE | 2018-06-16 16:14 | R.HP ---
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 board/care, assisted living, [place] [facility], transitional living) PRE-HOSPITAL LIVING WITH Alone ENCOUNTER PHYSICIAN: Dr. David Sosa M.D. 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 is a 62 yo Right-handed white male. On 06/05/2018 he was admitted to [facility] and underwent emergency surger y for Peripheral vascular disease (Amputation of Limb(Unilateral Lower Limb Above the Knee (AK))) by Arthur Oconnor. Pre-morbidly, Pt. was independent/mod-I in Transfers Control, Communication, Social Cognition, Self-C are, Sphincter Control, and Locomotion; and he had good Sphincter Control. Currently, he has deficits of Safety Awareness, Transfers Control, Communication, Social Cognition, B alance, Endurance, Locomotion, and Self-Care. Pt. is now referred to [facility] for acute in-patient rehabilitation in order to maximize patient's functional independence in activities of daily living, strength, ROM, and mobi lity. Admission did not happen within 48 hour window due to infection in Right skin graft. Medical staff abilio Beavers re-evaluated and patient is now ready for DC. Patients physical and medical status otheralyce sanchez has not changed and he is still in need of aggressive inpatient therapy. Patient has realistic goal of being discharged at assistance level 6-Ganga to reside at Home with Pt self. MEDICATION ALLERGIES: TRAMADOL ENVIRONMENTAL ALLERGIES: - Substance Allergies None Known - Other Allergies None Known PAST MEDICAL HISTORY: CKD PVD hypertension cancer rectal/colon DVT FAMILY HISTORY: Family history is not contributory. SOCIAL HISTORY: - Home Living Alone REVIEW OF SYSTEMS: - Gen No Chills Fatigue No Fever - Eyes No Double Vision No itchiness - ENMT No Difficulty Swallowing - CVS No Chest Discomfort No Chest Pain Fatigue No Weight Gain - Resp No Cough No Shortness of Breath - GI Continent No Abdominal Pain No Constipation No Diarrhea - Continent No Kidney Pain No Painful Urination No Urinary Urgency - MSK No Joint Pain Muscle Cramps No Stiffness - Skin No Itching No Rash No Suspicious Lesions - Neuro Coordination Difficulty No Difficulty with Concentration No Memory Loss No Seizures Weakness - Psych No Anxiety No Depression No HIV Exposure No Persistent Infections No Seasonal Allergies - Endo No Cold/Heat Intolerance No Excessive Hunger No Excessive Thirst No Excessive Urination PHYSICAL EXAM - Gen Alert and awake Lying in bed No apparent distress Oriented to: person, time, and place - Skin Right AKA bandage in place with good hemostasis. Normacephalic - Eyes No abnormalities - ENMT No abnormalities - Neck No abnormalities - CVS RRR - Chest No abnormalities - Resp Clear to auscultation - Abd +bowel sounds - GI nondistended Deferred - No abnormalities - Ext Right AKA stump with good hemostasis. - Neuro No focal deficits - Psych No abnormalities VITAL SIGNS Temperature: 98.8 F SBP/DBP: 136/75 Pulse: 72 Resp: 16 NURSING: - Shower allowing shower - Skin care per protocol PRECAUTIONS: - Weight Bearing Precaution NWB right LE ACTIVITIES OOB only with supervision FUNCTIONAL STATUS: - Self-Care A. Eating Ind Ind B. Grooming Ind sup C. Bathing Ind modA D. Dressing - Upper Ind sup E. Dressing - Lower Ind maxA F. Toileting Ind modA - Sphincter Control G: Bladder control Ind Ind H: Bowel control Ind Ind - Transfers Control I. Bed/Chair/Wheelchair Ind Iwona J. Toilet Ind Iwona K. Tub/Shower Ind Iwona - Locomotion L. Walk/Wheelchair (B) Ind Dep M. Stairs Ind ADNO - Communication N. Comprehension (B) Ind sup O. Expression (B) Ind sup - Social Cognition P. Social Interaction Ind sup Q. Problem Solving Ind sup R. Memory Ind sup - Endurance Fair - Balance Poor - Safety Awareness Fair CURRENT FUNC. DEFICITS: Safety Awareness, Transfers Control, Communication, Social Cognition, Balance, Endurance, Locomotion, and Self-Care ASSESSMENT: Pt. is a 62 yo Right-handed white male.On 06/05/[address] [facility] and underwent emergency surgery for Peripheral vascular disease (Amputation of Limb(Unilater al Lower Limb Above the Knee (AK))) by Arthur Oconnor.Pre-morbidly, Pt. was independent/mod-I in Trans fers Control, Communication, Social Cognition, Self-Care, Sphincter Control, and Locomotion; and he h ad good Sphincter Control.Currently, he has deficits of Safety Awareness, Transfers Control, Communic ation, Social Cognition, Balance, Endurance, Locomotion, and Self-Care.Pt. is now referred to [facility] for acute in-patient rehabilitation in order to maximize patient's functio nal independence in activities of daily living, strength, ROM, and mobility.Admission did not happen within 48 hour window due to infection in Right skin graft. Medical staff at [facility] re-evaluated a nd patient is now ready for DC. Patients physical and medical status otherwise has not changed and h e is still in need of aggressive inpatient therapy.- Rehab Goal Patient has realistic goal of being discharged at assistance level 6-Ganga to reside at Home with Pt self. REHAB PLAN: - Physical Therapy Gait dysfunction - to improve, our physical therapists will perform initial evaluation of pt's status upon admission and devise an individualized program for Gait Training, and Wheel Chair mobility Inability to transfer - to improve, our physical therapists will perform initial evaluation of pt's s tatus upon admission and devise an individualized program for Bed mobility Need for home safety evaluation - to improve, our physical therapists will perform initial evaluation of pt's status upon admission and devise an individualized program for Home Evaluation Need in caregiver upon discharge - to improve, our physical therapists will perform initial evaluatio n of pt's status upon admission and devise an individualized program for Caregiver Training New precaution - to improve, our physical therapists will perform initial evaluation of pt's status u zachary admission and devise an individualized program for Patient precaution education Poor balance - to improve, our physical therapists will perform initial evaluation of pt's status upo n admission and devise an individualized program for Balance Training Poor endurance - to improve, our physical therapists will perform initial evaluation of pt's status u zachary admission and devise an individualized program for Endurance Training Weakness - to improve, our physical therapists will perform initial evaluation of pt's status upon ad mission and devise an individualized program for Aquatic Therapy, Neuromuscular Reeducation, and Stre ngthening Achieving independence - to improve, our physical therapists will perform initial evaluation of pt's status upon admission and devise an individualized program for Community Reintegration Activities - Occupational Therapy ADL deficits - to improve, our occupation therapists will perform initial evaluation of pt's status u zachary admission and devise an individualized program for Bathing, Bed mobility, Community Reintegration , Cooking, Dressing, Eating, Fine Motor Skills, Grooming, Homemaking, Kitchen Mobility, Laundry, Rosalie ent Education, Safety Awareness, Splinting - Positioning, Transfers(Toilet, Tub, Shower), and Wheel C hair Management Cognitive deficits - to improve, our occupation therapists will perform initial evaluation of pt's st atus upon admission and devise an individualized program for Cognition - orientation Need for nurse behavioral health care - to improve, our occupation therapists will perform initial evaluation of pt's s tatus upon admission and devise an individualized program for Caregiver Training Weakness - to improve, our occupation therapists will perform initial evaluation of pt's status upon admission and devise an individualized program for Aquatic Therapy, Balance, Endurance, UE ROM, and U E strengthening MEDICAL PLAN: - Diet Type Start Regular - Diet - Liquid Texture Start Regular - Tube Feed Start N/A - Weight Bearing Precaution NWB right LE - Skin care per protocol - N/A Perform Consult Certified Prosthetic for prosthesis construction - Diet - Solid Texture Regular - Shower shower DISCHARGE PLAN: - Estimated Length of Stay (days) 11. - Consensus on plan Discharge plan has been discussed with primary caregiver. Patient/Family is in agreement with the vinh n. Primary caregiver is in agreement with the plan. - Patient/Family Goals Return home with assistance. - Planned Living Setting Upon Discharge Home, to live alone. Primary caregiver: Pt self. 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
--- NOTE | 2018-06-16 16:15 | PAPE ---
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 David Sosa M.D. ADMISSION DIAGNOSIS: Peripheral vascular disease ONSET DATE 06/05/2018 SECONDARY/COMORBID DIAGNOSES TIERED: - N/A hypertension CKD PVD POST-ADMISSION FUNCTIONAL/MEDICAL STATUS: - Bladder Same accident frequency: Ind - No accidents in the past 7 days - Bowel Same accident frequency: Ind - No accidents in the past 7 days - Walking Same score based on distance walked: 1(<=50ft) STATUS CHANGE EVALUATION: No change in Functional or Medical Status is identified compared with Pre-Admission screening. PATIENT NEEDS CLOSE MEDICAL SUPERVISION BY A REHABILITATION PHYSICIAN FOR: Bowel and Bladder Management Coordination of Treatment Team Medical and Co-Morbidity Management Post-Op Complications Wound Care PATIENT REQUIRES 24X7 REHAB NURSING FOR MEDICAL AND FUNCTIONAL MGT. OF THE FOLLOWING DEFICITS: ADL's Ambulation Bowel and Bladder Management Cognition Communication Disease Management Medication Management Patient/Family Education Providing Safe Environment Skin Integrity Transfers PATIENT REQUIRES INTENSIVE, COORDINATED INTERDISCIPLINARY APPROACH TO REHAB: Arranging Home Equipment/Services Discharge Planning Family Intervention/Training Tax Audit Manager/Case Management LIST OF IDENTIFIED AND POTENTIAL PROBLEMS: Alteration in leisure activities Bladder, Incontinence Blood Pressure, Hypertension/hypotension Issues Bowel, Incontinence Infection, Actual or Potential Mobility Impaired Pain, Alteration in Comfort Self Care Deficit Skin Integrity, Actual or Potential Urinary Tract Infection (UTI), Actual or Potential RISK FOR COMPLICATIONS - Hypertension CVA. Hypotension. [place]. TIA. - PVD Amputation. Gangrene. Infection. Ischemic ulcers. Sepsis. Wounds. INTERVENTIONS - Hypertension - PVD [place] exercises. Medications. PATIENT COULD BE AT RISK FOR COMPLICATIONS FROM ADVERSE MEDICAL CONDITIONS DUE TO HIS/HER COMORBIDITI ES AND THE RIGORS OF THE INTENSIVE REHABILLITATION PROGRAM. METHODS OR INTERVENTIONS TO AVOID COMPLIC ATIONS INCLUDE: - Bleeding Assess lab values and manage abnormalities. Nursing to teach precautions for anti-coagulation therapy . Wound to be assessed every shift. - Infection Clinical staff to assess and manage the signs and symptoms of infection including fever, redness, war mth, etc. - Urinary Tract Infection - Falls Patient will be evaluated for Fall Precautions and will be placed on Fall Precautions as indicated pe r protocol. - Skin Breakdown Nursing will assess skin daily using assessment tool and will place on Skin Breakdown Precautions as indicated per protocol. - Pain Clinical staff may employ non-medication methods such as massage, distraction, decrease stimulus, etc . as needed. Clinical staff will assess patient's pain level every shift per protocol to assess and e nsure pain management effectiveness. Medications will be given and the pain level re-assessed. PRELIMINARY PLAN OF CARE: - Physical Therapy Patient needs Physical Therapy for a daily minimum of 1.5 hours at least 5 out of 7 days, to improve: Mobility, Strengthening, Transfers, Stretching, ROM, Endurance, Ability to manage stairs, Gait, and Balance. - Rehabilitation Nursing Patient requires 24x7 Rehabilitation Nursing for: Pain Issues, Identifying and preventing risk factor s, Monitoring and reporting current medical conditions, Assisting with ambulation and transfer, Nikolay ting with all ADL-s, Teaching patients about disease process and medications, Family teaching, Provid ing safe environment, Bowel and Bladder Issues, Skin Integrity, and Medication Management. Patient needs Tax Audit Manager and/or Case Management for: Discharge Planning, Arranging Home Equipmen t or Services, and Family Interventions. - Dietary and Nutrition Services Patient needs Dietary and Nutrition Services for: Adequate Nutrition, Nutritional Supplements, and Nu tritional Education. - Occupational Therapy Patient needs Occupational Therapy for a daily minimum of 1.5 hours at least 5 out of 7 days, to impr ove Activities of Daily Living, including: Eating, Grooming, Bathing, Dressing, Toileting, Toilet Tra nsfers, Community Reintegration, Higher functional activities, Adaptive Equipment, Splinting, Househo ld Tasks, and Other activities as determined. POTENTIAL FUNCTIONAL GOALS FOR PATIENT TO ACHIEVE BY DISCHARGE: - Safety Precaution Patient will remain free from falls or injury at time of discharge. - Bed Mobility Patient will perform bed mobility at 4-Iwona level of assistance. - Transfers Patient will complete transfers from bed to chair at 4-Iwona level of assistance. - Mobility Patient will ambulate 150 ft with 4-Iwona level of assistance with RW. PATIENT REHAB POTENTIAL Expected level of measurable improvement will be of a practical value to patient's functional capacit y or adaptations to impairments Has a viable Discharge Plan Medically appropriate; condition is sufficiently stable to participate in intensive rehab program Patient is able and expected to receive 3 hours of individualized therapy daily on at least 5 of ever y 7 days Patient's prognosis for significant practical improvement within a reasonable period of time appears Good DISCHARGE PLAN: - Estimated Length of Stay (days) 11. - Consensus on plan Discharge plan has been discussed with primary caregiver. Patient/Family is in agreement with the vinh n. Primary caregiver is in agreement with the plan. - Patient/Family Goals Return home with assistance. - Planned Living Setting Upon Discharge Home, to live alone. Primary caregiver: Pt self. CONCLUSION ON REHABILITATION NECESSITY: I have evaluated patient's pre-admission functional status and, comparing it to the patient's post-ad mission functional status now, I conclude that the pre-admission assessment was accurate. Patient's c ondition on admission supports the medical necessity of admission to [facility]. It is safe to proceed with patient's therapy program. 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
--- NOTE | 2018-06-16 16:34 | FAST ---
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 David Sosa M.D. ADMISSION DIAGNOSIS: - Amputation of Limb 05 - Unilateral Lower Limb Above the Knee (AK) (05.3) Peripheral vascular disease. EATING: Activity did not occur on this shift EATING - SCORE: 0-UNK GROOMING: Activity did not occur on this shift GROOMING - SCORE: 0-UNK BATHING: Activity did not occur on this shift BATHING - SCORE: 0-UNK DRESSING - UPPER BODY: Activity did not occur on this shift Patient is not dressing in public clothing ARTICLES SCORE Total number of steps: 0 DRESSING - UPPER BODY - SCORE: 0-UNK DRESSING - LOWER BODY: Activity did not occur on this shift Patient is not dressing in public clothing ARTICLES SCORE Total number of steps: 0 DRESSING - LOWER BODY - SCORE: 0-UNK TOILETING: Activity did not occur on this shift TOILETING - SCORE: 0-UNK BLADDER MANAGEMENT: Activity did not occur on this shift BLADDER MANAGEMENT - SCORE: 7-IND BOWEL MANAGEMENT: Activity did not occur on this shift BOWEL MANAGEMENT - SCORE: 7-IND TRANSFERS: BED, CHAIR, WHEELCHAIR: TRANSFERS: BED, CHAIR, WHEELCHAIR - STEP 1: Does the patient require assistance of a person or device, or need extra time with bed, chair, or whe elchair transfers? Yes. TRANSFERS: BED, CHAIR, WHEELCHAIR - STEP 2: Does the patient require the assistance of a helper? Yes. TRANSFERS: BED, CHAIR, WHEELCHAIR - STEP 3: How much assistance does the patient require from the helper? Steadying/guiding assistance TRANSFERS: BED, CHAIR, WHEELCHAIR - SCORE: 4-MIN TRANSFERS: TOILET: Activity did not occur on this shift TRANSFERS: TOILET - SCORE: 0-UNK TRANSFERS: SHOWER: Activity did not occur on this shift TRANSFERS: SHOWER - SCORE: 0-UNK TRANSFERS: TUB: Activity did not occur on this shift TRANSFERS: TUB - SCORE: 0-UNK LOCOMOTION: WALK: LOCOMOTION: WALK - STEP 1: Does the patient need help from a person or device, or need extra time to walk 150 feet? Yes. LOCOMOTION: WALK - STEP 2: How much assistance does the patient require to walk a minimum of 150 feet? Patient walks less than 1 50 feet - but more than 50 feet - with the assistance of only one helper LOCOMOTION: WALK - SCORE: 2-MAX LOCOMOTION: WHEELCHAIR: LOCOMOTION: WHEELCHAIR - STEP 1: Does the patient need help to go 150 feet in a wheelchair? Yes. LOCOMOTION: WHEELCHAIR - STEP 2: How much assistance does the patient need from the helper? Only supervision, cuing, or coaxing LOCOMOTION: WHEELCHAIR - SCORE: 5-SUP LOCOMOTION: STAIRS: Activity did not occur on this shift LOCOMOTION: STAIRS - SCORE: 0-UNK COMPREHENSION: COMPREHENSION - SCORE: 0-UNK EXPRESSION EXPRESSION - SCORE: 0-UNK SOCIAL INTERACTION: SOCIAL INTERACTION - SCORE: 0-UNK PROBLEM SOLVING: PROBLEM SOLVING - SCORE: 0-UNK MEMORY: MEMORY - SCORE: 0-UNK SIGNATURE PANEL: The following modified sections: Transfers: Bed, Chair, Wheelchair - Score, Transfers: Toilet - Score , Locomotion: Walk - Score, Locomotion: Wheelchair - Score, Locomotion: Stairs - Score were [electron ically] signed by Chidi Marshall PT on TueJun 16 2018 16:33:49 GMT-0600 (Central Standard Time)
[2018-06-16] MEDS: DOCUSATE NA/SENNA CONC 1 TAB PO SCH (19:38)
[2018-06-16] MEDS: JUVEN PACKET PO SCH (19:38)
[2018-06-16] MEDS: HYDROCODONE/APAP 7.5/325 MG TAB PO PRN (19:44)
[2018-06-16] MEDS: MELATONIN 3 MG TABLET PO PRN (19:44)
--- NOTE | 2018-06-17 02:12 | FAST ---
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 David Sosa M.D. ADMISSION DIAGNOSIS: - Amputation of Limb 05 - Unilateral Lower Limb Above the Knee (AK) (05.3) Peripheral vascular disease. EATING: Activity did not occur on this shift EATING - SCORE: 0-UNK GROOMING: Activity did not occur on this shift GROOMING - SCORE: 0-UNK BATHING: Activity did not occur on this shift BATHING - SCORE: 0-UNK DRESSING - UPPER BODY: Patient is not dressing in public clothing ARTICLES SCORE Total number of steps: 0 DRESSING - UPPER BODY - SCORE: 0-UNK DRESSING - LOWER BODY: Patient is not dressing in public clothing ARTICLES SCORE Total number of steps: 0 DRESSING - LOWER BODY - SCORE: 0-UNK TOILETING: TOILETING - STEP 1: Does the patient require the assistance of a person or device, or need extra time with toileting? Yes . TOILETING - STEP 2: Does the patient require the assistance of a helper? Yes. TOILETING - STEP 3: How much assistance does the patient require from the helper? Only supervision TOILETING - SCORE: 5-SUP BLADDER MANAGEMENT: BLADDER MANAGEMENT - STEP 1: Does the patient control the bladder completely and intentionally without equipment or devices or med ications, and is always continent? No. BLADDER MANAGEMENT - STEP 2: Does the patient require the assistance of a helper? Yes. BLADDER MANAGEMENT - STEP 3: How much assistance does the patient require from the helper? Only set-up of equipment - such as plac ing it within reach of the patient or emptying a device - to maintain either satisfactory voiding pat tern or managing an external device, such as an absorbent pad, ileal device, or catheter BLADDER MANAGEMENT - SCORE: 5-SUP BOWEL MANAGEMENT: Activity did not occur on this shift BOWEL MANAGEMENT - SCORE: 7-IND TRANSFERS: BED, CHAIR, WHEELCHAIR: Activity did not occur on this shift TRANSFERS: BED, CHAIR, WHEELCHAIR - SCORE: 0-UNK TRANSFERS: TOILET: Activity did not occur on this shift TRANSFERS: TOILET - SCORE: 0-UNK TRANSFERS: SHOWER: Activity did not occur on this shift TRANSFERS: SHOWER - SCORE: 0-UNK TRANSFERS: TUB: Activity did not occur on this shift TRANSFERS: TUB - SCORE: 0-UNK LOCOMOTION: WALK: Activity did not occur on this shift LOCOMOTION: WALK - SCORE: 0-UNK LOCOMOTION: WHEELCHAIR: Activity did not occur on this shift LOCOMOTION: WHEELCHAIR - SCORE: 0-UNK COMPREHENSION: COMPREHENSION: TYPE: Both COMPREHENSION - STEP 1: Does the patient require help from a person or device, or need extra time to understand complex and a bstract ideas (such as current events, finances, discharge planning, medical issues, relationships, e tc)? No. COMPREHENSION - STEP 2: Does the patient need extra time, require an assistive device (such as glasses for visual comprehensi on or a hearing aid for auditory comprehension) or does s/he have mild difficulty understanding compl ex and abstract information? Yes. COMPREHENSION - SCORE: 6-ANA ROSA EXPRESSION EXPRESSION: TYPE: Both EXPRESSION - STEP 1: Does the patient require help from a person or device, or need extra time expressing complex and abst ract ideas (such as current events, finances, discharge planning, medical issues, relationships, etc) ? No. EXPRESSION - STEP 2: Does the patient need extra time, require an assistive device (such as augmentive communication syste m or a communication board), OR does s/he have mild difficulty expressing complex and abstract ideas (including mild dysarthria or mild word-find problems)? Yes. EXPRESSION - SCORE: 6-ANA ROSA SOCIAL INTERACTION: SOCIAL INTERACTION - STEP 1: Does the patient require a helper to interact with others in social and therapeutic situations? No. SOCIAL INTERACTION - STEP 2: Does the patient need extra time in social situations, OR does s/he interact with staff, other patien ts, and family members ONLY in structured environments, OR does s/he require medication for social in teraction? Yes, patient needs extra time SOCIAL INTERACTION - SCORE: 6-ANA ROSA PROBLEM SOLVING: PROBLEM SOLVING - STEP 1: Does the patient need help from a person or device, or need extra time to solve complex problems such as managing a checking account or confronting interpersonal problems? No. PROBLEM SOLVING - STEP 2: Does the patient require extra time to make decisions or solve problems, OR does s/he have slight dif ficulty reading, initiating, or self-correcting in unfamiliar situations? Yes, patient needs extra ti me. PROBLEM SOLVING - SCORE: 6-ANA ROSA MEMORY: MEMORY - STEP 1: Does the patient need help from a person or device, or need extra time to remember frequently encount ered people, daily routines, and executing requests? No. MEMORY - STEP 2: Does the patient have slight difficulty recognizing frequently encountered people, daily routines, or executing requests without the need for repetition or using self-initiated or environmental cues to remember? Yes. MEMORY - SCORE: 6-ANA ROSA
[2018-06-17] MEDS: PANTOPRAZOLE 40MG TABLET PO SCH (06:57)
[2018-06-17] MEDS: JUVEN PACKET PO SCH ×2 (08:00→20:00)
[2018-06-17] MEDS: POLYETHYL GLY 3350 17 GM/DOSE PO SCH (08:00)
[2018-06-17] MEDS: AMLODIPINE 5 MG TAB PO SCH ×2 (08:11→19:43)
[2018-06-17] MEDS: MINOCYCLINE HCL 50 MG CAP PO SCH ×2 (08:11→19:43)
[2018-06-17] MEDS: ASPIRIN 81 MG CHEWABLE TABLET PO SCH (08:12)
[2018-06-17] MEDS: GABAPENTIN 300 MG CAP PO SCH ×2 (08:13→19:42)
[2018-06-17] MEDS: HEPARIN 5000 UNIT/ML 1 ML VIAL SQ SCH ×2 (08:48→20:05)
--- NOTE | 2018-06-17 14:14 | FAST ---
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 David Sosa M.D. ADMISSION DIAGNOSIS: - Amputation of Limb 05 - Unilateral Lower Limb Above the Knee (AK) (05.3) Peripheral vascular disease. EATING: EATING - STEP 1: Does the patient require the assistance of a person or device, or need extra time when eating? Yes. EATING - STEP 2: Does the patient require the assistance of a helper? No, patient only requires an assistive device, O R s/he takes more than reasonable time to eat, OR there is a safety concern, OR s/he requires modifie d food consistency EATING - SCORE: 6-ANA ROSA GROOMING: Comb/brush hair Oral care Wash, rinse, and dry face Wash, rinse, and dry hands GROOMING - STEP 1: Does the patient require the assistance of a person or device, or need extra time when grooming? Yes. GROOMING - STEP 2: Does the patient require the assistance of a helper? Yes. GROOMING - STEP 3: How much assistance does the patient require from the helper? Only prior equipment preparation/set up from the helper GROOMING - SCORE: 5-SUP BATHING: Activity did not occur on this shift BATHING - SCORE: 0-UNK DRESSING - UPPER BODY: T-shirt/pullover shirt (four steps) ARTICLES SCORE Total number of steps: 4 DRESSING - UPPER BODY - STEP 1: Does the patient require help from a person or device, or need extra time when dressing above the [address]? Yes. DRESSING - UPPER BODY - STEP 2: Does the patient require the assistance of a helper? No. Patient only requires an assistive device, s uch as a button hook, velcro, or maori liaison adviser. OR s/he takes more than reasonable time as s/he dresses the upper body. OR there is a concern for safety when s/he dresses the upper body DRESSING - UPPER BODY - SCORE: 6-ANA ROSA DRESSING - LOWER BODY: ARTICLES SCORE Total number of steps: 6 DRESSING - LOWER BODY - STEP 1: Does the patient require help from a person or device, or need extra time when dressing below the [address] st? Yes. DRESSING - LOWER BODY - STEP 2: Does the patient require the assistance of a helper? Yes. DRESSING - LOWER BODY - STEP 3: Does the helper touch the patient while dressing? Yes. DRESSING - LOWER BODY - STEP 4: How many of the total steps does the patient complete on his/her own? 4 DRESSING - LOWER BODY - SCORE: 3-MOD TOILETING: TOILETING - STEP 1: Does the patient require the assistance of a person or device, or need extra time with toileting? Yes . TOILETING - STEP 2: Does the patient require the assistance of a helper? Yes. TOILETING - STEP 3: How much assistance does the patient require from the helper? Hands-on assistance from the helper TOILETING - STEP 4: Of the 3 tasks: 1) Adjusting clothing prior to use, 2) Cleansing of perineal area, 3) Adjusting clot boyd after use; How many tasks does the patient perform WITHOUT assistance of the helper? Two tasks TOILETING - SCORE: 3-MOD BLADDER MANAGEMENT: BLADDER MANAGEMENT - STEP 1: Does the patient control the bladder completely and intentionally without equipment or devices or med ications, and is always continent? No. BLADDER MANAGEMENT - STEP 2: Does the patient require the assistance of a helper? No, patient requires and independently uses an a ssistive device, such as a urinal, bedpan, bedside commode, catheter, absorbent pad, or collecting de vice BLADDER MANAGEMENT - SCORE: 6-ANA ROSA BOWEL MANAGEMENT: Activity did not occur on this shift BOWEL MANAGEMENT - SCORE: 7-IND TRANSFERS: BED, CHAIR, WHEELCHAIR: TRANSFERS: BED, CHAIR, WHEELCHAIR - STEP 1: Does the patient require assistance of a person or device, or need extra time with bed, chair, or whe elchair transfers? Yes. TRANSFERS: BED, CHAIR, WHEELCHAIR - STEP 2: Does the patient require the assistance of a helper? Yes. TRANSFERS: BED, CHAIR, WHEELCHAIR - STEP 3: How much assistance does the patient require from the helper? Steadying/guiding assistance TRANSFERS: BED, CHAIR, WHEELCHAIR - SCORE: 4-MIN TRANSFERS: TOILET: TRANSFERS: TOILET - STEP 1: Does the patient require the assistance of a person or device, or need extra time with toilet transfe rs? Yes. TRANSFERS: TOILET - STEP 2: Does the patient require the assistance of a helper? Yes. TRANSFERS: TOILET - STEP 3: How much assistance does the patient require from the helper? Patient performs half or more of the tr ansferring tasks TRANSFERS: TOILET - STEP 4: Does the patient need only incidental help such as contact guard or steadying during toilet transfer? Yes. TRANSFERS: TOILET - SCORE: 4-MIN TRANSFERS: SHOWER: Activity did not occur on this shift TRANSFERS: SHOWER - SCORE: 0-UNK TRANSFERS: TUB: Activity did not occur on this shift TRANSFERS: TUB - SCORE: 0-UNK LOCOMOTION: WALK: Activity did not occur on this shift LOCOMOTION: WALK - SCORE: 0-UNK LOCOMOTION: WHEELCHAIR: Activity did not occur on this shift LOCOMOTION: WHEELCHAIR - SCORE: 0-UNK COMPREHENSION: COMPREHENSION: TYPE: Both COMPREHENSION - STEP 1: Does the patient require help from a person or device, or need extra time to understand complex and a bstract ideas (such as current events, finances, discharge planning, medical issues, relationships, e tc)? No. COMPREHENSION - STEP 2: Does the patient need extra time, require an assistive device (such as glasses for visual comprehensi on or a hearing aid for auditory comprehension) or does s/he have mild difficulty understanding compl ex and abstract information? Yes. COMPREHENSION - SCORE: 6-ANA ROSA EXPRESSION EXPRESSION: TYPE: Both EXPRESSION - STEP 1: Does the patient require help from a person or device, or need extra time expressing complex and abst ract ideas (such as current events, finances, discharge planning, medical issues, relationships, etc) ? No. EXPRESSION - STEP 2: Does the patient need extra time, require an assistive device (such as augmentive communication syste m or a communication board), OR does s/he have mild difficulty expressing complex and abstract ideas (including mild dysarthria or mild word-find problems)? Yes. EXPRESSION - SCORE: 6-ANA ROSA SOCIAL INTERACTION: SOCIAL INTERACTION - STEP 1: Does the patient require a helper to interact with others in social and therapeutic situations? No. SOCIAL INTERACTION - STEP 2: Does the patient need extra time in social situations, OR does s/he interact with staff, other patien ts, and family members ONLY in structured environments, OR does s/he require medication for social in teraction? Yes, patient needs extra time SOCIAL INTERACTION - SCORE: 6-ANA ROSA PROBLEM SOLVING: PROBLEM SOLVING - STEP 1: Does the patient need help from a person or device, or need extra time to solve complex problems such as managing a checking account or confronting interpersonal problems? No. PROBLEM SOLVING - STEP 2: Does the patient require extra time to make decisions or solve problems, OR does s/he have slight dif ficulty reading, initiating, or self-correcting in unfamiliar situations? Yes, patient needs extra ti me. PROBLEM SOLVING - SCORE: 6-ANA ROSA MEMORY: MEMORY - STEP 1: Does the patient need help from a person or device, or need extra time to remember frequently encount ered people, daily routines, and executing requests? No. MEMORY - STEP 2: Does the patient have slight difficulty recognizing frequently encountered people, daily routines, or executing requests without the need for repetition or using self-initiated or environmental cues to remember? Yes. MEMORY - SCORE: 6-ANA ROSA SIGNATURE PANEL: The following modified sections: Eating - Score, Grooming - Score, Bathing - Score, Dressing - Upper Body - Score, Dressing - Lower Body - Score, Toileting - Score, Bladder Management - Score, Bowel Man agement - Score, Transfers: Bed, Chair, Wheelchair - Score, Transfers: Toilet - Score, Transfers: Iraida wer - Score, Transfers: Tub - Score, Locomotion: Walk - Score, Locomotion: Wheelchair - Score, Compre hension - Score, Expression - Score, Social Interaction - Score, Problem Solving - Score, Memory - Sc ore were [electronically] signed by Elfego Aguliar on Sat Jun 17 2018 14:13:10 GMT-0600 (Central Standard Time)
[2018-06-17] MEDS: MELATONIN 3 MG TABLET PO PRN (19:43)
[2018-06-17] MEDS: HYDROCODONE/APAP 7.5/325 MG TAB PO PRN (19:44)
[2018-06-17] MEDS: DOCUSATE NA/SENNA CONC 1 TAB PO SCH (19:51)
--- NOTE | 2018-06-18 03:26 | FAST ---
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 David Sosa M.D. ADMISSION DIAGNOSIS: - Amputation of Limb 05 - Unilateral Lower Limb Above the Knee (AK) (05.3) Peripheral vascular disease. EATING: Activity did not occur on this shift EATING - SCORE: 0-UNK GROOMING: Activity did not occur on this shift GROOMING - SCORE: 0-UNK BATHING: Activity did not occur on this shift BATHING - SCORE: 0-UNK DRESSING - UPPER BODY: Activity did not occur on this shift ARTICLES SCORE Total number of steps: 0 DRESSING - UPPER BODY - SCORE: 0-UNK DRESSING - LOWER BODY: Activity did not occur on this shift ARTICLES SCORE Total number of steps: 0 DRESSING - LOWER BODY - SCORE: 0-UNK TOILETING: Activity did not occur on this shift TOILETING - SCORE: 0-UNK BLADDER MANAGEMENT: Activity did not occur on this shift BLADDER MANAGEMENT - SCORE: 7-IND BOWEL MANAGEMENT: Activity did not occur on this shift BOWEL MANAGEMENT - SCORE: 7-IND TRANSFERS: BED, CHAIR, WHEELCHAIR: TRANSFERS: BED, CHAIR, WHEELCHAIR - STEP 1: Does the patient require assistance of a person or device, or need extra time with bed, chair, or whe elchair transfers? Yes. TRANSFERS: BED, CHAIR, WHEELCHAIR - STEP 2: Does the patient require the assistance of a helper? Yes. TRANSFERS: BED, CHAIR, WHEELCHAIR - STEP 3: How much assistance does the patient require from the helper? Steadying/guiding assistance TRANSFERS: BED, CHAIR, WHEELCHAIR - SCORE: 4-MIN TRANSFERS: TOILET: Activity did not occur on this shift TRANSFERS: TOILET - SCORE: 0-UNK TRANSFERS: SHOWER: Activity did not occur on this shift TRANSFERS: SHOWER - SCORE: 0-UNK TRANSFERS: TUB: Activity did not occur on this shift TRANSFERS: TUB - SCORE: 0-UNK LOCOMOTION: WALK: Activity did not occur on this shift LOCOMOTION: WALK - SCORE: 0-UNK LOCOMOTION: WHEELCHAIR: Activity did not occur on this shift LOCOMOTION: WHEELCHAIR - SCORE: 0-UNK COMPREHENSION: COMPREHENSION: TYPE: Both COMPREHENSION - STEP 1: Does the patient require help from a person or device, or need extra time to understand complex and a bstract ideas (such as current events, finances, discharge planning, medical issues, relationships, e tc)? No. COMPREHENSION - STEP 2: Does the patient need extra time, require an assistive device (such as glasses for visual comprehensi on or a hearing aid for auditory comprehension) or does s/he have mild difficulty understanding compl ex and abstract information? No. COMPREHENSION - SCORE: 7-IND EXPRESSION EXPRESSION: TYPE: Both EXPRESSION - STEP 1: Does the patient require help from a person or device, or need extra time expressing complex and abst ract ideas (such as current events, finances, discharge planning, medical issues, relationships, etc) ? No. EXPRESSION - STEP 2: Does the patient need extra time, require an assistive device (such as augmentive communication syste m or a communication board), OR does s/he have mild difficulty expressing complex and abstract ideas (including mild dysarthria or mild word-find problems)? No. EXPRESSION - SCORE: 7-IND SOCIAL INTERACTION: SOCIAL INTERACTION - STEP 1: Does the patient require a helper to interact with others in social and therapeutic situations? No. SOCIAL INTERACTION - STEP 2: Does the patient need extra time in social situations, OR does s/he interact with staff, other patien ts, and family members ONLY in structured environments, OR does s/he require medication for social in teraction? Yes, patient needs extra time SOCIAL INTERACTION - SCORE: 6-ANA ROSA PROBLEM SOLVING: PROBLEM SOLVING - STEP 1: Does the patient need help from a person or device, or need extra time to solve complex problems such as managing a checking account or confronting interpersonal problems? No. PROBLEM SOLVING - STEP 2: Does the patient require extra time to make decisions or solve problems, OR does s/he have slight dif ficulty reading, initiating, or self-correcting in unfamiliar situations? No. PROBLEM SOLVING - SCORE: 7-IND MEMORY: MEMORY - STEP 1: Does the patient need help from a person or device, or need extra time to remember frequently encount ered people, daily routines, and executing requests? No. MEMORY - STEP 2: Does the patient have slight difficulty recognizing frequently encountered people, daily routines, or executing requests without the need for repetition or using self-initiated or environmental cues to remember? No. MEMORY - SCORE: 7-IND SIGNATURE PANEL: The following modified sections: Eating - Score, Grooming - Score, Bathing - Score, Dressing - Upper Body - Score, Dressing - Lower Body - Score, Toileting - Score, Bladder Management - Score, Bowel Man agement - Score, Transfers: Bed, Chair, Wheelchair - Score, Transfers: Toilet - Score, Transfers: Iraida wer - Score, Transfers: Tub - Score, Locomotion: Walk - Score, Locomotion: Wheelchair - Score, Compre hension - Score, Expression - Score, Social Interaction - Score, Problem Solving - Score, Memory - Sc ore were [electronically] signed by Mandy Banegas CNA on TueJun 18 2018 03:25:45 GMT-0600 ([facility])
[2018-06-18] MEDS: PANTOPRAZOLE 40MG TABLET PO SCH (06:38)
[2018-06-18] MEDS: POLYETHYL GLY 3350 17 GM/DOSE PO SCH (07:58)
[2018-06-18] MEDS: JUVEN PACKET PO SCH ×2 (07:59→19:24)
[2018-06-18] MEDS: GABAPENTIN 300 MG CAP PO SCH ×2 (08:01→19:23)
[2018-06-18] MEDS: AMLODIPINE 5 MG TAB PO SCH ×2 (08:01→19:24)
[2018-06-18] MEDS: ASPIRIN 81 MG CHEWABLE TABLET PO SCH (08:01)
[2018-06-18] MEDS: MINOCYCLINE HCL 50 MG CAP PO SCH ×2 (08:02→19:23)
[2018-06-18] MEDS: HEPARIN 5000 UNIT/ML 1 ML VIAL SQ SCH ×2 (08:51→20:05)
--- NOTE | 2018-06-18 14:03 | FAST ---
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 David Sosa M.D. ADMISSION DIAGNOSIS: - Amputation of Limb 05 - Unilateral Lower Limb Above the Knee (AK) (05.3) Peripheral vascular disease. EATING: EATING - STEP 1: Does the patient require the assistance of a person or device, or need extra time when eating? Yes. EATING - STEP 2: Does the patient require the assistance of a helper? Yes. EATING - STEP 3: Does the patient perform half or more of the eating tasks? Yes. EATING - STEP 4: Does the patient need only supervision, cuing, coaxing OR help to apply an orthosis OR help to cut fo od, open containers, pour liquids, or butter bread? Yes. EATING - SCORE: 5-SUP GROOMING: Comb/brush hair Oral care Wash, rinse, and dry face Wash, rinse, and dry hands GROOMING - STEP 1: Does the patient require the assistance of a person or device, or need extra time when grooming? Yes. GROOMING - STEP 2: Does the patient require the assistance of a helper? Yes. GROOMING - STEP 3: How much assistance does the patient require from the helper? Cuing, coaxing, instructions, or encour agement for completion of grooming GROOMING - SCORE: 5-SUP BATHING: Activity did not occur on this shift BATHING - SCORE: 0-UNK DRESSING - UPPER BODY: T-shirt/pullover shirt (four steps) ARTICLES SCORE Total number of steps: 4 DRESSING - UPPER BODY - STEP 1: Does the patient require help from a person or device, or need extra time when dressing above the carla st? Yes. DRESSING - UPPER BODY - STEP 2: Does the patient require the assistance of a helper? Yes. DRESSING - UPPER BODY - STEP 3: Does the helper touch the patient while dressing? No. DRESSING - UPPER BODY - SCORE: 5-SUP DRESSING - LOWER BODY: ARTICLES SCORE Total number of steps: 3 DRESSING - LOWER BODY - STEP 1: Does the patient require help from a person or device, or need extra time when dressing below the carla st? Yes. DRESSING - LOWER BODY - STEP 2: Does the patient require the assistance of a helper? Yes. DRESSING - LOWER BODY - STEP 3: Does the helper touch the patient while dressing? Yes. DRESSING - LOWER BODY - STEP 4: How many of the total steps does the patient complete on his/her own? 2 DRESSING - LOWER BODY - SCORE: 3-MOD TOILETING: TOILETING - STEP 1: Does the patient require the assistance of a person or device, or need extra time with toileting? Yes . TOILETING - STEP 2: Does the patient require the assistance of a helper? Yes. TOILETING - STEP 3: How much assistance does the patient require from the helper? Hands-on assistance from the helper TOILETING - STEP 4: Of the 3 tasks: 1) Adjusting clothing prior to use, 2) Cleansing of perineal area, 3) Adjusting clot boyd after use; How many tasks does the patient perform WITHOUT assistance of the helper? Three tasks with steadying assistance from the helper TOILETING - SCORE: 4-MIN BLADDER MANAGEMENT: BLADDER MANAGEMENT - STEP 1: Does the patient control the bladder completely and intentionally without equipment or devices or med ications, and is always continent? No. BLADDER MANAGEMENT - STEP 2: Does the patient require the assistance of a helper? No, patient requires and independently uses an a ssistive device, such as a urinal, bedpan, bedside commode, catheter, absorbent pad, or collecting de vice BLADDER MANAGEMENT - SCORE: 6-ANA ROSA BOWEL MANAGEMENT: Activity did not occur on this shift BOWEL MANAGEMENT - SCORE: 7-IND TRANSFERS: BED, CHAIR, WHEELCHAIR: TRANSFERS: BED, CHAIR, WHEELCHAIR - STEP 1: Does the patient require assistance of a person or device, or need extra time with bed, chair, or whe elchair transfers? Yes. TRANSFERS: BED, CHAIR, WHEELCHAIR - STEP 2: Does the patient require the assistance of a helper? Yes. TRANSFERS: BED, CHAIR, WHEELCHAIR - STEP 3: How much assistance does the patient require from the helper? Steadying/guiding assistance TRANSFERS: BED, CHAIR, WHEELCHAIR - SCORE: 4-MIN TRANSFERS: TOILET: TRANSFERS: TOILET - STEP 1: Does the patient require the assistance of a person or device, or need extra time with toilet transfe rs? Yes. TRANSFERS: TOILET - STEP 2: Does the patient require the assistance of a helper? Yes. TRANSFERS: TOILET - STEP 3: How much assistance does the patient require from the helper? Patient performs half or more of the tr ansferring tasks TRANSFERS: TOILET - STEP 4: Does the patient need only incidental help such as contact guard or steadying during toilet transfer? Yes. TRANSFERS: TOILET - SCORE: 4-MIN TRANSFERS: SHOWER: Activity did not occur on this shift TRANSFERS: SHOWER - SCORE: 0-UNK TRANSFERS: TUB: Activity did not occur on this shift TRANSFERS: TUB - SCORE: 0-UNK LOCOMOTION: WALK: Activity did not occur on this shift LOCOMOTION: WALK - SCORE: 0-UNK LOCOMOTION: WHEELCHAIR: Activity did not occur on this shift LOCOMOTION: WHEELCHAIR - SCORE: 0-UNK COMPREHENSION: COMPREHENSION: TYPE: Both COMPREHENSION - STEP 1: Does the patient require help from a person or device, or need extra time to understand complex and a bstract ideas (such as current events, finances, discharge planning, medical issues, relationships, e tc)? No. COMPREHENSION - STEP 2: Does the patient need extra time, require an assistive device (such as glasses for visual comprehensi on or a hearing aid for auditory comprehension) or does s/he have mild difficulty understanding compl ex and abstract information? Yes. COMPREHENSION - SCORE: 6-ANA ROSA EXPRESSION EXPRESSION: TYPE: Both EXPRESSION - STEP 1: Does the patient require help from a person or device, or need extra time expressing complex and abst ract ideas (such as current events, finances, discharge planning, medical issues, relationships, etc) ? Yes. EXPRESSION - STEP 2: Does the patient require help to express basic necessities or ideas (such as hunger, thirst, sleep, s afety, daily schedule, room location, or discomfort) half or more of the time? Yes. EXPRESSION - STEP 3: Is the patient basically unable to express or does s/he express inappropriately or inconsistently miguel pite prompting? Yes. Patient is basically unable to express. EXPRESSION - SCORE: 1-DEP SOCIAL INTERACTION: SOCIAL INTERACTION - STEP 1: Does the patient require a helper to interact with others in social and therapeutic situations? No. SOCIAL INTERACTION - STEP 2: Does the patient need extra time in social situations, OR does s/he interact with staff, other patien ts, and family members ONLY in structured environments, OR does s/he require medication for social in teraction? Yes, patient needs extra time SOCIAL INTERACTION - SCORE: 6-ANA ROSA PROBLEM SOLVING: PROBLEM SOLVING - STEP 1: Does the patient need help from a person or device, or need extra time to solve complex problems such as managing a checking account or confronting interpersonal problems? Yes. PROBLEM SOLVING - STEP 2: Does the patient solve basic routine problems half or more of the time? Yes. PROBLEM SOLVING - STEP 3: How often does the patient need help to solve basic routine problems? Less than 10% of the time PROBLEM SOLVING - SCORE: 5-SUP MEMORY: MEMORY - STEP 1: Does the patient need help from a person or device, or need extra time to remember frequently encount ered people, daily routines, and executing requests? Yes. MEMORY - STEP 2: How often does the patient need help to remember frequently encountered people, daily routines, and e xecuting requests? Less than 10% of the time MEMORY - SCORE: 5-SUP SIGNATURE PANEL: The following modified sections: Eating - Score, Grooming - Score, Bathing - Score, Dressing - Upper Body - Score, Dressing - Lower Body - Score, Toileting - Score, Bladder Management - Score, Bowel Man agement - Score, Transfers: Bed, Chair, Wheelchair - Score, Transfers: Toilet - Score, Transfers: Iraida wer - Score, Transfers: Tub - Score, Locomotion: Walk - Score, Locomotion: Wheelchair - Score, Compre hension - Score, Expression - Score, Social Interaction - Score, Problem Solving - Score, Memory - Sc ore were [electronically] signed by Elfego Aguilar on TueJun 18 2018 14:03:07 GMT-0600 (Central Standard Time)
[2018-06-18] MEDS: HYDROCODONE/APAP 7.5/325 MG TAB PO PRN (19:23)
[2018-06-18] MEDS: MELATONIN 3 MG TABLET PO PRN (19:24)
[2018-06-18] MEDS: DOCUSATE NA/SENNA CONC 1 TAB PO SCH (19:24)
--- NOTE | 2018-06-19 01:19 | FAST ---
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 David Sosa M.D. ADMISSION DIAGNOSIS: - Amputation of Limb 05 - Unilateral Lower Limb Above the Knee (AK) (05.3) Peripheral vascular disease. EATING: Activity did not occur on this shift EATING - SCORE: 0-UNK GROOMING: Activity did not occur on this shift GROOMING - SCORE: 0-UNK BATHING: Activity did not occur on this shift BATHING - SCORE: 0-UNK DRESSING - UPPER BODY: Activity did not occur on this shift ARTICLES SCORE Total number of steps: 0 DRESSING - UPPER BODY - SCORE: 0-UNK DRESSING - LOWER BODY: Activity did not occur on this shift ARTICLES SCORE Total number of steps: 0 DRESSING - LOWER BODY - SCORE: 0-UNK TOILETING: TOILETING - STEP 1: Does the patient require the assistance of a person or device, or need extra time with toileting? Yes . TOILETING - STEP 2: Does the patient require the assistance of a helper? Yes. TOILETING - STEP 3: How much assistance does the patient require from the helper? Hands-on assistance from the helper TOILETING - STEP 4: Of the 3 tasks: 1) Adjusting clothing prior to use, 2) Cleansing of perineal area, 3) Adjusting clot boyd after use; How many tasks does the patient perform WITHOUT assistance of the helper? Two tasks TOILETING - SCORE: 3-MOD BLADDER MANAGEMENT: BLADDER MANAGEMENT - STEP 1: Does the patient control the bladder completely and intentionally without equipment or devices or med ications, and is always continent? Yes. BLADDER MANAGEMENT - SCORE: 7-IND BOWEL MANAGEMENT: Activity did not occur on this shift BOWEL MANAGEMENT - SCORE: 7-IND TRANSFERS: BED, CHAIR, WHEELCHAIR: TRANSFERS: BED, CHAIR, WHEELCHAIR - STEP 1: Does the patient require assistance of a person or device, or need extra time with bed, chair, or whe elchair transfers? Yes. TRANSFERS: BED, CHAIR, WHEELCHAIR - STEP 2: Does the patient require the assistance of a helper? Yes. TRANSFERS: BED, CHAIR, WHEELCHAIR - STEP 3: How much assistance does the patient require from the helper? Steadying/guiding assistance TRANSFERS: BED, CHAIR, WHEELCHAIR - SCORE: 4-MIN TRANSFERS: TOILET: TRANSFERS: TOILET - STEP 1: Does the patient require the assistance of a person or device, or need extra time with toilet transfe rs? Yes. TRANSFERS: TOILET - STEP 2: Does the patient require the assistance of a helper? Yes. TRANSFERS: TOILET - STEP 3: How much assistance does the patient require from the helper? Patient performs half or more of the tr ansferring tasks TRANSFERS: TOILET - STEP 4: Does the patient need only incidental help such as contact guard or steadying during toilet transfer? Yes. TRANSFERS: TOILET - SCORE: 4-MIN TRANSFERS: SHOWER: Activity did not occur on this shift TRANSFERS: SHOWER - SCORE: 0-UNK TRANSFERS: TUB: Activity did not occur on this shift TRANSFERS: TUB - SCORE: 0-UNK LOCOMOTION: WALK: Activity did not occur on this shift LOCOMOTION: WALK - SCORE: 0-UNK LOCOMOTION: WHEELCHAIR: Activity did not occur on this shift LOCOMOTION: WHEELCHAIR - SCORE: 0-UNK COMPREHENSION: COMPREHENSION: TYPE: Both COMPREHENSION - STEP 1: Does the patient require help from a person or device, or need extra time to understand complex and a bstract ideas (such as current events, finances, discharge planning, medical issues, relationships, e tc)? No. COMPREHENSION - STEP 2: Does the patient need extra time, require an assistive device (such as glasses for visual comprehensi on or a hearing aid for auditory comprehension) or does s/he have mild difficulty understanding compl ex and abstract information? No. COMPREHENSION - SCORE: 7-IND EXPRESSION EXPRESSION: TYPE: Both EXPRESSION - STEP 1: Does the patient require help from a person or device, or need extra time expressing complex and abst ract ideas (such as current events, finances, discharge planning, medical issues, relationships, etc) ? No. EXPRESSION - STEP 2: Does the patient need extra time, require an assistive device (such as augmentive communication syste m or a communication board), OR does s/he have mild difficulty expressing complex and abstract ideas (including mild dysarthria or mild word-find problems)? No. EXPRESSION - SCORE: 7-IND SOCIAL INTERACTION: SOCIAL INTERACTION - STEP 1: Does the patient require a helper to interact with others in social and therapeutic situations? No. SOCIAL INTERACTION - STEP 2: Does the patient need extra time in social situations, OR does s/he interact with staff, other patien ts, and family members ONLY in structured environments, OR does s/he require medication for social in teraction? No. SOCIAL INTERACTION - SCORE: 7-IND PROBLEM SOLVING: PROBLEM SOLVING - STEP 1: Does the patient need help from a person or device, or need extra time to solve complex problems such as managing a checking account or confronting interpersonal problems? No. PROBLEM SOLVING - STEP 2: Does the patient require extra time to make decisions or solve problems, OR does s/he have slight dif ficulty reading, initiating, or self-correcting in unfamiliar situations? No. PROBLEM SOLVING - SCORE: 7-IND MEMORY: MEMORY - STEP 1: Does the patient need help from a person or device, or need extra time to remember frequently encount ered people, daily routines, and executing requests? No. MEMORY - STEP 2: Does the patient have slight difficulty recognizing frequently encountered people, daily routines, or executing requests without the need for repetition or using self-initiated or environmental cues to remember? No. MEMORY - SCORE: 7-IND SIGNATURE PANEL: The following modified sections: Eating - Score, Bathing - Score, Dressing - Upper Body - Score, Dres sing - Lower Body - Score, Toileting - Score, Bladder Management - Score, Bowel Management - Score, T ransfers: Bed, Chair, Wheelchair - Score, Transfers: Toilet - Score, Transfers: Shower - Score, Trans fers: Tub - Score, Locomotion: Walk - Score, Locomotion: Wheelchair - Score, Comprehension - Score, E xpression - Score, Social Interaction - Score, Problem Solving - Score, Memory - Score, Grooming - Sc ore were [electronically] signed by Mandy Banegas CNA on TueJun 19 2018 01:18:02 T-0600 ([facility])
[2018-06-19] MEDS: GABAPENTIN 300 MG CAP PO SCH ×2 (07:54→21:03)
[2018-06-19] MEDS: ASPIRIN 81 MG CHEWABLE TABLET PO SCH (07:54)
[2018-06-19] MEDS: AMLODIPINE 5 MG TAB PO SCH ×2 (07:54→20:58)
[2018-06-19] MEDS: PANTOPRAZOLE 40MG TABLET PO SCH (07:56)
[2018-06-19] MEDS: POLYETHYL GLY 3350 17 GM/DOSE PO SCH (07:58)
[2018-06-19] MEDS: JUVEN PACKET PO SCH ×2 (07:58→20:00)
[2018-06-19] MEDS: HEPARIN 5000 UNIT/ML 1 ML VIAL SQ SCH ×2 (08:00→18:15)
--- NOTE | 2018-06-19 13:49 | FAST ---
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 David Sosa M.D. ADMISSION DIAGNOSIS: - Amputation of Limb 05 - Unilateral Lower Limb Above the Knee (AK) (05.3) Peripheral vascular disease. EATING: EATING - STEP 1: Does the patient require the assistance of a person or device, or need extra time when eating? Yes. EATING - STEP 2: Does the patient require the assistance of a helper? Yes. EATING - STEP 3: Does the patient perform half or more of the eating tasks? Yes. EATING - STEP 4: Does the patient need only supervision, cuing, coaxing OR help to apply an orthosis OR help to cut fo od, open containers, pour liquids, or butter bread? Yes. EATING - SCORE: 5-SUP GROOMING: Comb/brush hair Oral care Wash, rinse, and dry face Wash, rinse, and dry hands GROOMING - STEP 1: Does the patient require the assistance of a person or device, or need extra time when grooming? Yes. GROOMING - STEP 2: Does the patient require the assistance of a helper? No. The patient only requires an assistive devic e, OR takes more than reasonable time to groom, OR there is a concern for safety as the patient groom s GROOMING - SCORE: 6-ANA ROSA BATHING: Activity did not occur on this shift BATHING - SCORE: 0-UNK DRESSING - UPPER BODY: Patient is not dressing in public clothing ARTICLES SCORE Total number of steps: 0 DRESSING - UPPER BODY - SCORE: 0-UNK DRESSING - UPPER BODY - COMMENTS: P will change during shower time with therapist DRESSING - LOWER BODY: Activity did not occur on this shift ARTICLES SCORE Total number of steps: 0 DRESSING - LOWER BODY - SCORE: 0-UNK DRESSING - LOWER BODY - COMMENTS: Pt waiting for shower with therapist to change clothes TOILETING: TOILETING - STEP 1: Does the patient require the assistance of a person or device, or need extra time with toileting? Yes . TOILETING - STEP 2: Does the patient require the assistance of a helper? Yes. TOILETING - STEP 3: How much assistance does the patient require from the helper? Hands-on assistance from the helper TOILETING - STEP 4: Of the 3 tasks: 1) Adjusting clothing prior to use, 2) Cleansing of perineal area, 3) Adjusting clot boyd after use; How many tasks does the patient perform WITHOUT assistance of the helper? Three tasks with steadying assistance from the helper TOILETING - SCORE: 4-MIN BLADDER MANAGEMENT: BLADDER MANAGEMENT - STEP 1: Does the patient control the bladder completely and intentionally without equipment or devices or med ications, and is always continent? No. BLADDER MANAGEMENT - STEP 2: Does the patient require the assistance of a helper? No, patient requires and independently uses an a ssistive device, such as a urinal, bedpan, bedside commode, catheter, absorbent pad, or collecting de vice BLADDER MANAGEMENT - SCORE: 6-ANA ROSA BLADDER MANAGEMENT - FREQUENCY OF ACCIDENTS: BLADDER MANAGEMENT(FA) - STEP 1: How many accidents has the patient had during the current shift? 0 BOWEL MANAGEMENT: Activity did not occur on this shift BOWEL MANAGEMENT - SCORE: 7-IND BOWEL MANAGEMENT - FREQUENCY OF ACCIDENTS: BOWEL MANAGEMENT(FA) - STEP 1: How many accidents has the patient had during the current shift? 0 TRANSFERS: BED, CHAIR, WHEELCHAIR: TRANSFERS: BED, CHAIR, WHEELCHAIR - STEP 1: Does the patient require assistance of a person or device, or need extra time with bed, chair, or whe elchair transfers? Yes. TRANSFERS: BED, CHAIR, WHEELCHAIR - STEP 2: Does the patient require the assistance of a helper? Yes. TRANSFERS: BED, CHAIR, WHEELCHAIR - STEP 3: How much assistance does the patient require from the helper? Steadying/guiding assistance TRANSFERS: BED, CHAIR, WHEELCHAIR - SCORE: 4-MIN TRANSFERS: TOILET: TRANSFERS: TOILET - STEP 1: Does the patient require the assistance of a person or device, or need extra time with toilet transfe rs? Yes. TRANSFERS: TOILET - STEP 2: Does the patient require the assistance of a helper? Yes. TRANSFERS: TOILET - STEP 3: How much assistance does the patient require from the helper? Patient performs half or more of the tr ansferring tasks TRANSFERS: TOILET - STEP 4: Does the patient need only incidental help such as contact guard or steadying during toilet transfer? Yes. TRANSFERS: TOILET - SCORE: 4-MIN TRANSFERS: SHOWER: Activity did not occur on this shift TRANSFERS: SHOWER - SCORE: 0-UNK TRANSFERS: TUB: Activity did not occur on this shift TRANSFERS: TUB - SCORE: 0-UNK LOCOMOTION: WALK: Activity did not occur on this shift LOCOMOTION: WALK - SCORE: 0-UNK LOCOMOTION: WHEELCHAIR: Activity did not occur on this shift LOCOMOTION: WHEELCHAIR - SCORE: 0-UNK COMPREHENSION: COMPREHENSION: TYPE: Both COMPREHENSION - STEP 1: Does the patient require help from a person or device, or need extra time to understand complex and a bstract ideas (such as current events, finances, discharge planning, medical issues, relationships, e tc)? No. COMPREHENSION - STEP 2: Does the patient need extra time, require an assistive device (such as glasses for visual comprehensi on or a hearing aid for auditory comprehension) or does s/he have mild difficulty understanding compl ex and abstract information? Yes. COMPREHENSION - SCORE: 6-ANA ROSA EXPRESSION EXPRESSION: TYPE: Both EXPRESSION - STEP 1: Does the patient require help from a person or device, or need extra time expressing complex and abst ract ideas (such as current events, finances, discharge planning, medical issues, relationships, etc) ? No. EXPRESSION - STEP 2: Does the patient need extra time, require an assistive device (such as augmentive communication syste m or a communication board), OR does s/he have mild difficulty expressing complex and abstract ideas (including mild dysarthria or mild word-find problems)? Yes. EXPRESSION - SCORE: 6-ANA ROSA SOCIAL INTERACTION: SOCIAL INTERACTION - STEP 1: Does the patient require a helper to interact with others in social and therapeutic situations? No. SOCIAL INTERACTION - STEP 2: Does the patient need extra time in social situations, OR does s/he interact with staff, other patien ts, and family members ONLY in structured environments, OR does s/he require medication for social in teraction? Yes, patient needs extra time SOCIAL INTERACTION - SCORE: 6-ANA ROSA PROBLEM SOLVING: PROBLEM SOLVING - STEP 1: Does the patient need help from a person or device, or need extra time to solve complex problems such as managing a checking account or confronting interpersonal problems? Yes. PROBLEM SOLVING - STEP 2: Does the patient solve basic routine problems half or more of the time? Yes. PROBLEM SOLVING - STEP 3: How often does the patient need help to solve basic routine problems? Less than 10% of the time PROBLEM SOLVING - SCORE: 5-SUP MEMORY: MEMORY - STEP 1: Does the patient need help from a person or device, or need extra time to remember frequently encount ered people, daily routines, and executing requests? Yes. MEMORY - STEP 2: How often does the patient need help to remember frequently encountered people, daily routines, and e xecuting requests? Less than 10% of the time MEMORY - SCORE: 5-SUP SIGNATURE PANEL: The following modified sections: Eating - Score, Grooming - Score, Bathing - Score, Dressing - Upper Body - Score, Dressing - Lower Body - Score, Dressing - Lower Body - Comments:, Dressing - Upper Body - Comments:, Toileting - Score, Bladder Management - Score, Bowel Management - Score, Transfers: Bed , Chair, Wheelchair - Score, Transfers: Toilet - Score, Transfers: Shower - Score, Transfers: Tub - S core, Locomotion: Walk - Score, Locomotion: Wheelchair - Score, Comprehension - Score, Expression - S core, Social Interaction - Score, Problem Solving - Score, Memory - Score were [electronically] melanie d by Ayanna HernandezNMahesh on TueJun 19 2018 13:49:07 GMT-0600 (Central Standard Time)
--- NOTE | 2018-06-19 15:35 | FAST ---
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 David Sosa M.D. ADMISSION DIAGNOSIS: - Amputation of Limb 05 - Unilateral Lower Limb Above the Knee (AK) (05.3) Peripheral vascular disease. EATING: Activity did not occur on this shift EATING - SCORE: 0-UNK GROOMING: Activity did not occur on this shift GROOMING - SCORE: 0-UNK BATHING: Activity did not occur on this shift BATHING - SCORE: 0-UNK DRESSING - UPPER BODY: Activity did not occur on this shift Patient is not dressing in public clothing ARTICLES SCORE Total number of steps: 0 DRESSING - UPPER BODY - SCORE: 0-UNK DRESSING - LOWER BODY: Activity did not occur on this shift Patient is not dressing in public clothing ARTICLES SCORE Total number of steps: 0 DRESSING - LOWER BODY - SCORE: 0-UNK TOILETING: Activity did not occur on this shift TOILETING - SCORE: 0-UNK BLADDER MANAGEMENT: Activity did not occur on this shift BLADDER MANAGEMENT - SCORE: 7-IND BOWEL MANAGEMENT: Activity did not occur on this shift BOWEL MANAGEMENT - SCORE: 7-IND TRANSFERS: BED, CHAIR, WHEELCHAIR: TRANSFERS: BED, CHAIR, WHEELCHAIR - STEP 1: Does the patient require assistance of a person or device, or need extra time with bed, chair, or whe elchair transfers? Yes. TRANSFERS: BED, CHAIR, WHEELCHAIR - STEP 2: Does the patient require the assistance of a helper? Yes. TRANSFERS: BED, CHAIR, WHEELCHAIR - STEP 3: How much assistance does the patient require from the helper? Steadying/guiding assistance TRANSFERS: BED, CHAIR, WHEELCHAIR - SCORE: 4-MIN TRANSFERS: TOILET: Activity did not occur on this shift TRANSFERS: TOILET - SCORE: 0-UNK TRANSFERS: SHOWER: Activity did not occur on this shift TRANSFERS: SHOWER - SCORE: 0-UNK TRANSFERS: TUB: Activity did not occur on this shift TRANSFERS: TUB - SCORE: 0-UNK LOCOMOTION: WALK: LOCOMOTION: WALK - STEP 1: Does the patient need help from a person or device, or need extra time to walk 150 feet? Yes. LOCOMOTION: WALK - STEP 2: How much assistance does the patient require to walk a minimum of 150 feet? Patient walks less than 1 50 feet - but more than 50 feet - with the assistance of only one helper LOCOMOTION: WALK - SCORE: 2-MAX LOCOMOTION: WHEELCHAIR: LOCOMOTION: WHEELCHAIR - STEP 1: Does the patient need help to go 150 feet in a wheelchair? No. LOCOMOTION: WHEELCHAIR - SCORE: 6-ANA ROSA LOCOMOTION: STAIRS: Activity did not occur on this shift LOCOMOTION: STAIRS - SCORE: 0-UNK COMPREHENSION: COMPREHENSION - SCORE: 0-UNK EXPRESSION EXPRESSION - SCORE: 0-UNK SOCIAL INTERACTION: SOCIAL INTERACTION - SCORE: 0-UNK PROBLEM SOLVING: PROBLEM SOLVING - SCORE: 0-UNK MEMORY: MEMORY - SCORE: 0-UNK SIGNATURE PANEL: The following modified sections: Transfers: Bed, Chair, Wheelchair - Score, Transfers: Toilet - Score , Locomotion: Walk - Score, Locomotion: Wheelchair - Score, Locomotion: Stairs - Score were [electron rian] signed by Macario Arvizu PTA on TueJun 19 2018 15:34:36 GMT-0600 (Central Standard Time)
--- NOTE | 2018-06-19 18:55 | R.PN ---
ENCOUNTER DATE AND TIME: 06/19/2018 18:51 (WINERY CELLAR HAND) NAME GARY RANDALL DATE OF : 1955 DATE OF ADMISSION: 06/15/2018 17:00 (WINERY CELLAR HAND) Peripheral vascular diseaseCHIEF COMPLAINT: Debility secondary to PVD. SUBJECTIVE: Pt denied any Shortness of Breath. Pt denied any depression. Ambulated 240' with contact guard assistance using a rolling walker. Self-propelled wheelchair 500' w ith modified independence. Hgb 10.0, Collaborating Supervising Physician 1.48. On hemocyte plus and 8 glasses of water daily. VITAL SIGNS Temperature: 98.8 F SBP/DBP: 136/75 Pulse: 72 Resp: 16 MEDICATION ALLERGIES: TRAMADOL ENVIRONMENTAL ALLERGIES: - Substance Allergies None Known - Other Allergies None Known CONSULT: Perform Consult Certified Prosthetic for prosthesis construction NURSING: - Shower allowing shower - Skin care per protocol PRECAUTIONS: - Weight Bearing Precaution NWB right LE ACTIVITIES OOB only with supervision THERAPIES: - Orthotics/Prosthetics Prosthetic Evaluation. - Occupational Therapy Evaluate and Treat. - Physical Therapy Evaluate and Treat. PHYSICAL EXAM - Gen Alert and awake Lying in bed No apparent distress Oriented to: person, time, and place - Skin Right AKA bandage in place with good hemostasis. Normacephalic - Eyes No abnormalities - ENMT No abnormalities - Neck No abnormalities - CVS RRR - Chest No abnormalities - Resp Clear to auscultation - Abd +bowel sounds - GI nondistended Deferred - No abnormalities - Ext Right AKA stump with good hemostasis. - Neuro No focal deficits - Psych No abnormalities ASSESSMENT: Pt. is a 62 yo Right-handed white male.On 06/05/2018 he was admitted to [facility] and underwent emergency surgery for Peripheral vascular disease (Amputation of Limb(Unilater al Lower Limb Above the Knee (AK))) by Arthur Oconnor.Pre-morbidly, Pt. was independent/mod-I in Trans fers Control, Communication, Social Cognition, Self-Care, Sphincter Control, and Locomotion; and he h ad good Sphincter Control.Currently, he has deficits of Safety Awareness, Transfers Control, Communic ation, Social Cognition, Balance, Endurance, Locomotion, and Self-Care.Pt. is now referred to [facility] for acute in-patient rehabilitation in order to maximize patient's functio nal independence in activities of daily living, strength, ROM, and mobility.Admission did not happen within 48 hour window due to infection in Right skin graft. Medical staff at [facility] re-evaluated a nd patient is now ready for DC. Patients physical and medical status otherwise has not changed and h e is still in need of aggressive inpatient therapy.- Rehab Goal Patient has realistic goal of being discharged at assistance level 6-Ganga to reside at Home with Pt self. MDM/PLAN: - Physical Therapy Gait dysfunction - to improve, our physical therapists will perform initial evaluation of pt's statu s upon admission and devise an individualized program for Gait Training, and Wheel Chair mobility Inability to transfer - to improve, our physical therapists will perform initial evaluation of pt's status upon admission and devise an individualized program for Bed mobility Need for home safety evaluation - to improve, our physical therapists will perform initial evaluatio n of pt's status upon admission and devise an individualized program for Home Evaluation Need in caregiver upon discharge - to improve, our physical therapists will perform initial evaluati on of pt's status upon admission and devise an individualized program for Caregiver Training New precaution - to improve, our physical therapists will perform initial evaluation of pt's status upon admission and devise an individualized program for Patient precaution education Poor balance - to improve, our physical therapists will perform initial evaluation of pt's status up on admission and devise an individualized program for Balance Training Poor endurance - to improve, our physical therapists will perform initial evaluation of pt's status upon admission and devise an individualized program for Endurance Training Weakness - to improve, our physical therapists will perform initial evaluation of pt's status upon a dmission and devise an individualized program for Aquatic Therapy, Neuromuscular Reeducation, and Str engthening Achieving independence - to improve, our physical therapists will perform initial evaluation of pt's status upon admission and devise an individualized program for Community Reintegration Activities - Occupational Therapy ADL deficits - to improve, our occupation therapists will perform initial evaluation of pt's status upon admission and devise an individualized program for Bathing, Bed mobility, Community Reintegratio n, Cooking, Dressing, Eating, Fine Motor Skills, Grooming, Homemaking, Kitchen Mobility, Laundry, Pat ient Education, Safety Awareness, Splinting - Positioning, Transfers(Toilet, Tub, Shower), and Wheel Chair Management Cognitive deficits - to improve, our occupation therapists will perform initial evaluation of pt's s tatus upon admission and devise an individualized program for Cognition - orientation Need for care information associate - to improve, our occupation therapists will perform initial evaluation of pt's status upon admission and devise an individualized program for Caregiver Training Weakness - to improve, our occupation therapists will perform initial evaluation of pt's status upon admission and devise an individualized program for Aquatic Therapy, Balance, Endurance, UE ROM, and UE strengthening - Diet Type Continue Regular - Diet - Liquid Texture Continue Regular - Tube Feed Continue N/A - Weight Bearing Precaution NWB right LE - Skin care per protocol - N/A Perform Consult Certified Prosthetic for prosthesis construction - Diet - Solid Texture Continue Regular - Shower allowing shower FUNCTIONAL STATUS: UPDATED AT WEEKLY TEAM CONFERENCE - Bladder Same accident frequency: 7-Ind - No accidents in the past 7 days - Bowel Same accident frequency: 7-Ind - No accidents in the past 7 days - Walking Same score based on distance walked: 1(<=50ft) FUNCTIONAL STATUS: - Self-Care A. Eating Ind B. Grooming sup C. Bathing modA D. Dressing - Upper sup E. Dressing - Lower maxA F. Toileting modA - Sphincter Control G: Bladder control Ind H: Bowel control Ind - Transfers Control I. Bed/Chair/Wheelchair Iwona J. Toilet Iwona K. Tub/Shower [place]wona - Locomotion L. Walk/Wheelchair (B) Dep M. Stairs ADNO - Communication N. Comprehension (B) sup O. Expression (B) sup - Social Cognition P. Social Interaction sup Q. Problem Solving sup R. Memory sup - Endurance Fair - Balance Poor - Safety Awareness Fair CURRENT FUNC. DEFICITS: Safety Awareness, Transfers Control, Communication, Social Cognition, Balance, Endurance, Locomotion, and Self-Care SIGNATURE PANEL: (WINERY CELLAR HAND)
[2018-06-19] MEDS: DOCUSATE NA/SENNA CONC 1 TAB PO SCH (21:00)
[2018-06-19] MEDS: PROMOD 30 ML DOSE PO SCH (21:03)
[2018-06-19] MEDS: HYDROCODONE/APAP 7.5/325 MG TAB PO PRN (23:09)
--- NOTE | 2018-06-20 02:01 | FAST ---
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 David Sosa M.D. ADMISSION DIAGNOSIS: - Amputation of Limb 05 - Unilateral Lower Limb Above the Knee (AK) (05.3) Peripheral vascular disease. EATING: Activity did not occur on this shift EATING - SCORE: 0-UNK GROOMING: Activity did not occur on this shift GROOMING - SCORE: 0-UNK BATHING: Activity did not occur on this shift BATHING - SCORE: 0-UNK DRESSING - UPPER BODY: Patient is not dressing in public clothing ARTICLES SCORE Total number of steps: 0 DRESSING - UPPER BODY - SCORE: 0-UNK DRESSING - LOWER BODY: Patient is not dressing in public clothing ARTICLES SCORE Total number of steps: 0 DRESSING - LOWER BODY - SCORE: 0-UNK TOILETING: TOILETING - STEP 1: Does the patient require the assistance of a person or device, or need extra time with toileting? Yes . TOILETING - STEP 2: Does the patient require the assistance of a helper? Yes. TOILETING - STEP 3: How much assistance does the patient require from the helper? Hands-on assistance from the helper TOILETING - STEP 4: Of the 3 tasks: 1) Adjusting clothing prior to use, 2) Cleansing of perineal area, 3) Adjusting clot boyd after use; How many tasks does the patient perform WITHOUT assistance of the helper? Three tasks with steadying assistance from the helper TOILETING - SCORE: 4-MIN BLADDER MANAGEMENT: BLADDER MANAGEMENT - STEP 1: Does the patient control the bladder completely and intentionally without equipment or devices or med ications, and is always continent? Yes. BLADDER MANAGEMENT - SCORE: 7-IND BOWEL MANAGEMENT: BOWEL MANAGEMENT - STEP 1: Does the patient control bowels completely and intentionally without equipment devices or medications AND is always continent? No. BOWEL MANAGEMENT - STEP 2: Does the patient require the assistance of a helper? No, patient requires medication for control such as stool softeners, suppositories, laxatives, enemas, or OTC medications BOWEL MANAGEMENT - SCORE: 6-ANA ROSA TRANSFERS: BED, CHAIR, WHEELCHAIR: TRANSFERS: BED, CHAIR, WHEELCHAIR - STEP 1: Does the patient require assistance of a person or device, or need extra time with bed, chair, or whe elchair transfers? Yes. TRANSFERS: BED, CHAIR, WHEELCHAIR - STEP 2: Does the patient require the assistance of a helper? Yes. TRANSFERS: BED, CHAIR, WHEELCHAIR - STEP 3: How much assistance does the patient require from the helper? Steadying/guiding assistance TRANSFERS: BED, CHAIR, WHEELCHAIR - SCORE: 4-MIN TRANSFERS: TOILET: TRANSFERS: TOILET - STEP 1: Does the patient require the assistance of a person or device, or need extra time with toilet transfe rs? Yes. TRANSFERS: TOILET - STEP 2: Does the patient require the assistance of a helper? Yes. TRANSFERS: TOILET - STEP 3: How much assistance does the patient require from the helper? Only supervision, cuing, coaxing, OR he lp to set out transfer equipment or to lock brakes and/or lift foot rests TRANSFERS: TOILET - SCORE: 5-SUP TRANSFERS: SHOWER: Activity did not occur on this shift TRANSFERS: SHOWER - SCORE: 0-UNK TRANSFERS: TUB: Activity did not occur on this shift TRANSFERS: TUB - SCORE: 0-UNK LOCOMOTION: WALK: Activity did not occur on this shift LOCOMOTION: WALK - SCORE: 0-UNK LOCOMOTION: WHEELCHAIR: Activity did not occur on this shift LOCOMOTION: WHEELCHAIR - SCORE: 0-UNK COMPREHENSION: COMPREHENSION: TYPE: Both COMPREHENSION - STEP 1: Does the patient require help from a person or device, or need extra time to understand complex and a bstract ideas (such as current events, finances, discharge planning, medical issues, relationships, e tc)? No. COMPREHENSION - STEP 2: Does the patient need extra time, require an assistive device (such as glasses for visual comprehensi on or a hearing aid for auditory comprehension) or does s/he have mild difficulty understanding compl ex and abstract information? Yes. COMPREHENSION - SCORE: 6-ANA ROSA EXPRESSION EXPRESSION: TYPE: Both EXPRESSION - STEP 1: Does the patient require help from a person or device, or need extra time expressing complex and abst ract ideas (such as current events, finances, discharge planning, medical issues, relationships, etc) ? No. EXPRESSION - STEP 2: Does the patient need extra time, require an assistive device (such as augmentive communication syste m or a communication board), OR does s/he have mild difficulty expressing complex and abstract ideas (including mild dysarthria or mild word-find problems)? No. EXPRESSION - SCORE: 7-IND SOCIAL INTERACTION: SOCIAL INTERACTION - STEP 1: Does the patient require a helper to interact with others in social and therapeutic situations? No. SOCIAL INTERACTION - STEP 2: Does the patient need extra time in social situations, OR does s/he interact with staff, other patien ts, and family members ONLY in structured environments, OR does s/he require medication for social in teraction? Yes, patient needs extra time SOCIAL INTERACTION - SCORE: 6-ANA ROSA PROBLEM SOLVING: PROBLEM SOLVING - STEP 1: Does the patient need help from a person or device, or need extra time to solve complex problems such as managing a checking account or confronting interpersonal problems? No. PROBLEM SOLVING - STEP 2: Does the patient require extra time to make decisions or solve problems, OR does s/he have slight dif ficulty reading, initiating, or self-correcting in unfamiliar situations? Yes, patient needs extra ti me. PROBLEM SOLVING - SCORE: 6-ANA ROSA MEMORY: MEMORY - STEP 1: Does the patient need help from a person or device, or need extra time to remember frequently encount ered people, daily routines, and executing requests? No. MEMORY - STEP 2: Does the patient have slight difficulty recognizing frequently encountered people, daily routines, or executing requests without the need for repetition or using self-initiated or environmental cues to remember? Yes. MEMORY - SCORE: 6-ANA ROSA SIGNATURE PANEL: The following modified sections: Eating - Score, Grooming - Score, Dressing - Upper Body - Score, Allen ssing - Lower Body - Score, Toileting - Score, Bladder Management - Score, Bowel Management - Score, Transfers: Bed, Chair, Wheelchair - Score, Transfers: Toilet - Score, Transfers: Shower - Score, [place] sfers: Tub - Score, Locomotion: Walk - Score, Locomotion: Wheelchair - Score, Comprehension - Score, Expression - Score, Social Interaction - Score, Problem Solving - Score, Memory - Score were [electro nically] signed by Peg Hoffman CNA on TueJun 20 2018 02:00:52 GMT-0600 (Central Standard Time)
[2018-06-20] MEDS: HEPARIN 5000 UNIT/ML 1 ML VIAL SQ SCH ×2 (07:30→18:17)
[2018-06-20] MEDS: JUVEN PACKET PO SCH ×2 (08:00→20:00)
[2018-06-20] MEDS: AMLODIPINE 5 MG TAB PO SCH ×2 (08:00→21:02)
[2018-06-20] MEDS: PROMOD 30 ML DOSE PO SCH ×2 (08:00→20:00)
[2018-06-20] MEDS: POLYETHYL GLY 3350 17 GM/DOSE PO SCH (08:00)
[2018-06-20] MEDS: PANTOPRAZOLE 40MG TABLET PO SCH (08:07)
[2018-06-20] MEDS: GABAPENTIN 300 MG CAP PO SCH ×2 (08:07→21:02)
[2018-06-20] MEDS: ASPIRIN 81 MG CHEWABLE TABLET PO SCH (08:07)
[2018-06-20] MEDS: HYDROCODONE/APAP 7.5/325 MG TAB PO PRN ×2 (11:38→23:23)
--- NOTE | 2018-06-20 14:24 | FAST ---
SHIFT START DATE/TIME: 06/20/2018 07:00 (MANAGER CATEGORY) SHIFT END DATE/TIME: 06/20/2018 19:00 (MANAGER CATEGORY) NAME GARY RANDALL DATE OF : 1955 DATE OF ADMISSION: 06/15/2018 17:00 (MANAGER CATEGORY) PHONE: AGE: 62 SSN# [id number] GENDER: Male ENCOUNTER PHYSICIAN: Dr. David Sosa M.D. ADMISSION DIAGNOSIS: - Amputation of Limb 05 - Unilateral Lower Limb Above the Knee (AK) (05.3) Peripheral vascular disease. EATING: EATING - STEP 1: Does the patient require the assistance of a person or device, or need extra time when eating? Yes. EATING - STEP 2: Does the patient require the assistance of a helper? Yes. EATING - STEP 3: Does the patient perform half or more of the eating tasks? Yes. EATING - STEP 4: Does the patient need only supervision, cuing, coaxing OR help to apply an orthosis OR help to cut fo od, open containers, pour liquids, or butter bread? Yes. EATING - SCORE: 5-SUP GROOMING: Comb/brush hair Oral care Wash, rinse, and dry face Wash, rinse, and dry hands GROOMING - STEP 1: Does the patient require the assistance of a person or device, or need extra time when grooming? Yes. GROOMING - STEP 2: Does the patient require the assistance of a helper? No. The patient only requires an assistive devic e, OR takes more than reasonable time to groom, OR there is a concern for safety as the patient groom s GROOMING - SCORE: 6-ANA ROSA BATHING: Activity did not occur on this shift BATHING - SCORE: 0-UNK DRESSING - UPPER BODY: T-shirt/pullover shirt (four steps) ARTICLES SCORE Total number of steps: 4 DRESSING - UPPER BODY - STEP 1: Does the patient require help from a person or device, or need extra time when dressing above the carla st? Yes. DRESSING - UPPER BODY - STEP 2: Does the patient require the assistance of a helper? No. Patient only requires an assistive device, s uch as a button hook, velcro, or cyber security analyst. OR s/he takes more than reasonable time as s/he dresses the upper body. OR there is a concern for safety when s/he dresses the upper body DRESSING - UPPER BODY - SCORE: 6-ANA ROSA DRESSING - LOWER BODY: Slip-on shoe - Left foot (one step) Sock - Left foot (one step) Tied or buckled shoe - Left foot (two steps) Zippered pants (four steps) ARTICLES SCORE Total number of steps: 8 DRESSING - LOWER BODY - STEP 1: Does the patient require help from a person or device, or need extra time when dressing below the carla st? Yes. DRESSING - LOWER BODY - STEP 2: Does the patient require the assistance of a helper? No. Patient requires an assistive device such as a cyber security analyst. OR s/he takes more than reasonable time as s/he dresses the lower body, OR there is a con cern for safety when s/he dresses the lower body DRESSING - LOWER BODY - SCORE: 6-ANA ROSA TOILETING: TOILETING - STEP 1: Does the patient require the assistance of a person or device, or need extra time with toileting? Yes . TOILETING - STEP 2: Does the patient require the assistance of a helper? No. TOILETING - SCORE: 6-ANA ROSA BLADDER MANAGEMENT: BLADDER MANAGEMENT - STEP 1: Does the patient control the bladder completely and intentionally without equipment or devices or med ications, and is always continent? No. BLADDER MANAGEMENT - STEP 2: Does the patient require the assistance of a helper? Yes. BLADDER MANAGEMENT - STEP 3: How much assistance does the patient require from the helper? Only set-up of equipment - such as plac ing it within reach of the patient or emptying a device - to maintain either satisfactory voiding pat tern or managing an external device, such as an absorbent pad, ileal device, or catheter BLADDER MANAGEMENT - SCORE: 5-SUP BLADDER MANAGEMENT - FREQUENCY OF ACCIDENTS: BLADDER MANAGEMENT(FA) - STEP 1: How many accidents has the patient had during the current shift? 0 BOWEL MANAGEMENT: Activity did not occur on this shift BOWEL MANAGEMENT - SCORE: 7-IND BOWEL MANAGEMENT - FREQUENCY OF ACCIDENTS: BOWEL MANAGEMENT(FA) - STEP 1: How many accidents has the patient had during the current shift? 0 TRANSFERS: BED, CHAIR, WHEELCHAIR: TRANSFERS: BED, CHAIR, WHEELCHAIR - STEP 1: Does the patient require assistance of a person or device, or need extra time with bed, chair, or whe elchair transfers? Yes. TRANSFERS: BED, CHAIR, WHEELCHAIR - STEP 2: Does the patient require the assistance of a helper? Yes. TRANSFERS: BED, CHAIR, WHEELCHAIR - STEP 3: How much assistance does the patient require from the helper? Only supervision TRANSFERS: BED, CHAIR, WHEELCHAIR - SCORE: 5-SUP TRANSFERS: TOILET: TRANSFERS: TOILET - STEP 1: Does the patient require the assistance of a person or device, or need extra time with toilet transfe rs? Yes. TRANSFERS: TOILET - STEP 2: Does the patient require the assistance of a helper? No. Patient only requires an assistive device bryan ch as a grab bar or special seat, OR s/he takes more than reasonable time to perform toilet transfers , OR there is a safety concern when s/he performs toilet transfers. TRANSFERS: TOILET - SCORE: 6-ANA ROSA TRANSFERS: SHOWER: Activity did not occur on this shift TRANSFERS: SHOWER - SCORE: 0-UNK TRANSFERS: TUB: Activity did not occur on this shift TRANSFERS: TUB - SCORE: 0-UNK LOCOMOTION: WALK: Activity did not occur on this shift LOCOMOTION: WALK - SCORE: 0-UNK LOCOMOTION: WHEELCHAIR: LOCOMOTION: WHEELCHAIR - STEP 1: Does the patient need help to go 150 feet in a wheelchair? No. LOCOMOTION: WHEELCHAIR - SCORE: 6-ANA ROSA COMPREHENSION: COMPREHENSION: TYPE: Both COMPREHENSION - STEP 1: Does the patient require help from a person or device, or need extra time to understand complex and a bstract ideas (such as current events, finances, discharge planning, medical issues, relationships, e tc)? No. COMPREHENSION - STEP 2: Does the patient need extra time, require an assistive device (such as glasses for visual comprehensi on or a hearing aid for auditory comprehension) or does s/he have mild difficulty understanding compl ex and abstract information? Yes. COMPREHENSION - SCORE: 6-ANA ROSA EXPRESSION EXPRESSION: TYPE: Both EXPRESSION - STEP 1: Does the patient require help from a person or device, or need extra time expressing complex and abst ract ideas (such as current events, finances, discharge planning, medical issues, relationships, etc) ? No. EXPRESSION - STEP 2: Does the patient need extra time, require an assistive device (such as augmentive communication syste m or a communication board), OR does s/he have mild difficulty expressing complex and abstract ideas (including mild dysarthria or mild word-find problems)? Yes. EXPRESSION - SCORE: 6-ANA ROSA SOCIAL INTERACTION: SOCIAL INTERACTION - STEP 1: Does the patient require a helper to interact with others in social and therapeutic situations? No. SOCIAL INTERACTION - STEP 2: Does the patient need extra time in social situations, OR does s/he interact with staff, other patien ts, and family members ONLY in structured environments, OR does s/he require medication for social in teraction? Yes, patient needs extra time SOCIAL INTERACTION - SCORE: 6-ANA ROSA PROBLEM SOLVING: PROBLEM SOLVING - STEP 1: Does the patient need help from a person or device, or need extra time to solve complex problems such as managing a checking account or confronting interpersonal problems? Yes. PROBLEM SOLVING - STEP 2: Does the patient solve basic routine problems half or more of the time? Yes. PROBLEM SOLVING - STEP 3: How often does the patient need help to solve basic routine problems? Less than 10% of the time PROBLEM SOLVING - SCORE: 5-SUP MEMORY: MEMORY - STEP 1: Does the patient need help from a person or device, or need extra time to remember frequently encount ered people, daily routines, and executing requests? Yes. MEMORY - STEP 2: How often does the patient need help to remember frequently encountered people, daily routines, and e xecuting requests? Less than 10% of the time MEMORY - SCORE: 5-SUP SIGNATURE PANEL: The following modified sections: Eating - Score, Grooming - Score, Bathing - Score, Dressing - Upper Body - Score, Dressing - Lower Body - Score, Toileting - Score, Bladder Management - Score, Bowel Man agement - Score, Transfers: Bed, Chair, Wheelchair - Score, Transfers: Toilet - Score, Transfers: Iraida wer - Score, Transfers: Tub - Score, Locomotion: Walk - Score, Locomotion: Wheelchair - Score, Compre hension - Score, Expression - Score, Social Interaction - Score, Problem Solving - Score, Memory - Sc ore were [electronically] signed by Juanita Quintero C.N.A. on TueJun 20 2018 14:23:54 GMT-0600 (Cent[place] Standard Time)
--- NOTE | 2018-06-20 18:28 | R.PN ---
ENCOUNTER DATE AND TIME: 06/20/2018 18:25 (PROBATE LAWYER) NAME GARY RANDALL DATE OF : 1955 DATE OF ADMISSION: 06/15/2018 17:00 (PROBATE LAWYER) Peripheral vascular diseaseCHIEF COMPLAINT: Debility secondary to PVD. SUBJECTIVE: Pt denied any Shortness of Breath. Pt denied any depression. Ambulated 260' with contact guard assistance using a rolling walker. Self-propelled wheelchair 500' w ith modified independence. Hgb 10.0, Environmental Quality Analyst 1.48. On hemocyte plus and 8 glasses of water daily. VITAL SIGNS Temperature: 97.4 F SBP/DBP: 107/71 Pulse: 83 Resp: 16 MEDICATION ALLERGIES: TRAMADOL ENVIRONMENTAL ALLERGIES: - Substance Allergies None Known - Other Allergies None Known CONSULT: Perform Consult Certified Prosthetic for prosthesis construction NURSING: - Shower allowing shower - Skin care per protocol PRECAUTIONS: - Weight Bearing Precaution NWB right LE ACTIVITIES OOB only with supervision THERAPIES: - Orthotics/Prosthetics Prosthetic Evaluation. - Occupational Therapy Evaluate and Treat. - Physical Therapy Evaluate and Treat. PHYSICAL EXAM - Gen Alert and awake Lying in bed No apparent distress Oriented to: person, time, and place - Skin Right AKA bandage in place with good hemostasis. Normacephalic - Eyes No abnormalities - ENMT No abnormalities - Neck No abnormalities - CVS RRR - Chest No abnormalities - Resp Clear to auscultation - Abd +bowel sounds - GI nondistended Deferred - No abnormalities - Ext Right AKA stump with good hemostasis. - Neuro No focal deficits - Psych No abnormalities ASSESSMENT: Pt. is a 62 yo Right-handed white male.On 06/05/2018 he was admitted to [facility] and underwent emergency surgery for Peripheral vascular disease (Amputation of Limb(Unilater al Lower Limb Above the Knee (AK))) by Arthur Oconnor.Pre-morbidly, Pt. was independent/mod-I in Trans fers Control, Communication, Social Cognition, Self-Care, Sphincter Control, and Locomotion; and he h ad good Sphincter Control.Currently, he has deficits of Safety Awareness, Transfers Control, Communic ation, Social Cognition, Balance, Endurance, Locomotion, and Self-Care.Pt. is now referred to [facility] for acute in-patient rehabilitation in order to maximize patient's functio nal independence in activities of daily living, strength, ROM, and mobility.Admission did not happen within 48 hour window due to infection in Right skin graft. Medical staff at [facility] re-evaluated a nd patient is now ready for DC. Patients physical and medical status otherwise has not changed and h e is still in need of aggressive inpatient therapy.- Rehab Goal Patient has realistic goal of being discharged at assistance level 6-Ganga to reside at Home with Pt self. MDM/PLAN: - Physical Therapy Gait dysfunction - to improve, our physical therapists will perform initial evaluation of pt's statu s upon admission and devise an individualized program for Gait Training, and Wheel Chair mobility Inability to transfer - to improve, our physical therapists will perform initial evaluation of pt's status upon admission and devise an individualized program for Bed mobility Need for home safety evaluation - to improve, our physical therapists will perform initial evaluatio n of pt's status upon admission and devise an individualized program for Home Evaluation Need in caregiver upon discharge - to improve, our physical therapists will perform initial evaluati on of pt's status upon admission and devise an individualized program for Caregiver Training New precaution - to improve, our physical therapists will perform initial evaluation of pt's status upon admission and devise an individualized program for Patient precaution education Poor balance - to improve, our physical therapists will perform initial evaluation of pt's status up on admission and devise an individualized program for Balance Training Poor endurance - to improve, our physical therapists will perform initial evaluation of pt's status upon admission and devise an individualized program for Endurance Training Weakness - to improve, our physical therapists will perform initial evaluation of pt's status upon a dmission and devise an individualized program for Aquatic Therapy, Neuromuscular Reeducation, and Str engthening Achieving independence - to improve, our physical therapists will perform initial evaluation of pt's status upon admission and devise an individualized program for Community Reintegration Activities - Occupational Therapy ADL deficits - to improve, our occupation therapists will perform initial evaluation of pt's status upon admission and devise an individualized program for Bathing, Bed mobility, Community Reintegratio n, Cooking, Dressing, Eating, Fine Motor Skills, Grooming, Homemaking, Kitchen Mobility, Laundry, Pat ient Education, Safety Awareness, Splinting - Positioning, Transfers(Toilet, Tub, Shower), and Wheel Chair Management Cognitive deficits - to improve, our occupation therapists will perform initial evaluation of pt's s tatus upon admission and devise an individualized program for Cognition - orientation Need for care asst - to improve, our occupation therapists will perform initial evaluation of pt's status upon admission and devise an individualized program for Caregiver Training Weakness - to improve, our occupation therapists will perform initial evaluation of pt's status upon admission and devise an individualized program for Aquatic Therapy, Balance, Endurance, UE ROM, and UE strengthening - Diet Type Continue Regular - Diet - Liquid Texture Continue Regular - Tube Feed Continue N/A - Weight Bearing Precaution NWB right LE - Skin care per protocol - N/A Perform Consult Certified Prosthetic for prosthesis construction - Diet - Solid Texture Continue Regular - Shower allowing shower FUNCTIONAL STATUS: UPDATED AT WEEKLY TEAM CONFERENCE - Bladder Same accident frequency: 7-Ind - No accidents in the past 7 days - Bowel Same accident frequency: 7-Ind - No accidents in the past 7 days - Walking Same score based on distance walked: 1(<=50ft) FUNCTIONAL STATUS: - Self-Care A. Eating Ind B. Grooming sup C. Bathing modA D. Dressing - Upper sup E. Dressing - Lower maxA F. Toileting modA - Sphincter Control G: Bladder control Ind H: Bowel control Ind - Transfers Control I. Bed/Chair/Wheelchair Iwona J. Toilet Iwona K. Tub/Shower Iwona - Locomotion L. Walk/Wheelchair (B) Dep M. Stairs ADNO - Communication N. Comprehension (B) sup O. Expression (B) sup - Social Cognition P. Social Interaction sup Q. Problem Solving sup R. Memory sup - Endurance Fair - Balance Poor - Safety Awareness Fair CURRENT FUNC. DEFICITS: Safety Awareness, Transfers Control, Communication, Social Cognition, Balance, Endurance, Locomotion, and Self-Care SIGNATURE PANEL: (PROBATE LAWYER)
[2018-06-20] MEDS: DOCUSATE NA/SENNA CONC 1 TAB PO SCH (21:00)
[2018-06-20] MEDS: MELATONIN 3 MG TABLET PO PRN (23:23)
--- NOTE | 2018-06-21 01:11 | FAST ---
SHIFT START DATE/TIME: 06/20/2018 19:00 (WILDLIFE CONSERVATION OFFICER) SHIFT END DATE/TIME: 06/21/2018 07:00 (WILDLIFE CONSERVATION OFFICER) NAME GARY RANDALL DATE OF : 1955 DATE OF ADMISSION: 06/15/2018 17:00 (WILDLIFE CONSERVATION OFFICER) PHONE: AGE: 62 SSN# [id number] GENDER: Male ENCOUNTER PHYSICIAN: Dr. David Sosa M.D. ADMISSION DIAGNOSIS: - Amputation of Limb 05 - Unilateral Lower Limb Above the Knee (AK) (05.3) Peripheral vascular disease. EATING: Activity did not occur on this shift EATING - SCORE: 0-UNK GROOMING: Wash, rinse, and dry hands GROOMING - STEP 1: Does the patient require the assistance of a person or device, or need extra time when grooming? Yes. GROOMING - STEP 2: Does the patient require the assistance of a helper? Yes. GROOMING - STEP 3: How much assistance does the patient require from the helper? Only prior equipment preparation/set up from the helper GROOMING - SCORE: 5-SUP BATHING: Activity did not occur on this shift BATHING - SCORE: 0-UNK DRESSING - UPPER BODY: Patient is not dressing in public clothing ARTICLES SCORE Total number of steps: 0 DRESSING - UPPER BODY - SCORE: 0-UNK DRESSING - LOWER BODY: Patient is not dressing in public clothing ARTICLES SCORE Total number of steps: 0 DRESSING - LOWER BODY - SCORE: 0-UNK TOILETING: TOILETING - STEP 1: Does the patient require the assistance of a person or device, or need extra time with toileting? Yes . TOILETING - STEP 2: Does the patient require the assistance of a helper? Yes. TOILETING - STEP 3: How much assistance does the patient require from the helper? Only supervision TOILETING - SCORE: 5-SUP BLADDER MANAGEMENT: BLADDER MANAGEMENT - STEP 1: Does the patient control the bladder completely and intentionally without equipment or devices or med ications, and is always continent? No. BLADDER MANAGEMENT - STEP 2: Does the patient require the assistance of a helper? No, patient requires and independently uses an a ssistive device, such as a urinal, bedpan, bedside commode, catheter, absorbent pad, or collecting de vice BLADDER MANAGEMENT - SCORE: 6-ANA ROSA BOWEL MANAGEMENT: BOWEL MANAGEMENT - STEP 1: Does the patient control bowels completely and intentionally without equipment devices or medications AND is always continent? No. BOWEL MANAGEMENT - STEP 2: Does the patient require the assistance of a helper? No, patient requires medication for control such as stool softeners, suppositories, laxatives, enemas, or OTC medications BOWEL MANAGEMENT - SCORE: 6-ANA ROSA TRANSFERS: BED, CHAIR, WHEELCHAIR: TRANSFERS: BED, CHAIR, WHEELCHAIR - STEP 1: Does the patient require assistance of a person or device, or need extra time with bed, chair, or whe elchair transfers? Yes. TRANSFERS: BED, CHAIR, WHEELCHAIR - STEP 2: Does the patient require the assistance of a helper? Yes. TRANSFERS: BED, CHAIR, WHEELCHAIR - STEP 3: How much assistance does the patient require from the helper? Steadying/guiding assistance TRANSFERS: BED, CHAIR, WHEELCHAIR - SCORE: 4-MIN TRANSFERS: TOILET: TRANSFERS: TOILET - STEP 1: Does the patient require the assistance of a person or device, or need extra time with toilet transfe rs? Yes. TRANSFERS: TOILET - STEP 2: Does the patient require the assistance of a helper? Yes. TRANSFERS: TOILET - STEP 3: How much assistance does the patient require from the helper? Only supervision, cuing, coaxing, OR he lp to set out transfer equipment or to lock brakes and/or lift foot rests TRANSFERS: TOILET - SCORE: 5-SUP TRANSFERS: SHOWER: Activity did not occur on this shift TRANSFERS: SHOWER - SCORE: 0-UNK TRANSFERS: TUB: Activity did not occur on this shift TRANSFERS: TUB - SCORE: 0-UNK LOCOMOTION: WALK: Activity did not occur on this shift LOCOMOTION: WALK - SCORE: 0-UNK LOCOMOTION: WHEELCHAIR: Activity did not occur on this shift LOCOMOTION: WHEELCHAIR - SCORE: 0-UNK COMPREHENSION: COMPREHENSION: TYPE: Both COMPREHENSION - STEP 1: Does the patient require help from a person or device, or need extra time to understand complex and a bstract ideas (such as current events, finances, discharge planning, medical issues, relationships, e tc)? No. COMPREHENSION - STEP 2: Does the patient need extra time, require an assistive device (such as glasses for visual comprehensi on or a hearing aid for auditory comprehension) or does s/he have mild difficulty understanding compl ex and abstract information? Yes. COMPREHENSION - SCORE: 6-ANA ROSA EXPRESSION EXPRESSION: TYPE: Both EXPRESSION - STEP 1: Does the patient require help from a person or device, or need extra time expressing complex and abst ract ideas (such as current events, finances, discharge planning, medical issues, relationships, etc) ? No. EXPRESSION - STEP 2: Does the patient need extra time, require an assistive device (such as augmentive communication syste m or a communication board), OR does s/he have mild difficulty expressing complex and abstract ideas (including mild dysarthria or mild word-find problems)? No. EXPRESSION - SCORE: 7-IND SOCIAL INTERACTION: SOCIAL INTERACTION - STEP 1: Does the patient require a helper to interact with others in social and therapeutic situations? No. SOCIAL INTERACTION - STEP 2: Does the patient need extra time in social situations, OR does s/he interact with staff, other patien ts, and family members ONLY in structured environments, OR does s/he require medication for social in teraction? Yes, patient needs extra time SOCIAL INTERACTION - SCORE: 6-ANA ROSA PROBLEM SOLVING: PROBLEM SOLVING - STEP 1: Does the patient need help from a person or device, or need extra time to solve complex problems such as managing a checking account or confronting interpersonal problems? No. PROBLEM SOLVING - STEP 2: Does the patient require extra time to make decisions or solve problems, OR does s/he have slight dif ficulty reading, initiating, or self-correcting in unfamiliar situations? Yes, patient needs extra ti me. PROBLEM SOLVING - SCORE: 6-ANA ROSA MEMORY: MEMORY - STEP 1: Does the patient need help from a person or device, or need extra time to remember frequently encount ered people, daily routines, and executing requests? No. MEMORY - STEP 2: Does the patient have slight difficulty recognizing frequently encountered people, daily routines, or executing requests without the need for repetition or using self-initiated or environmental cues to remember? Yes. MEMORY - SCORE: 6-ANA ROSA SIGNATURE PANEL: The following modified sections: Eating - Score, Grooming - Score, Dressing - Upper Body - Score, Allen ssing - Lower Body - Score, Toileting - Score, Bladder Management - Score, Bowel Management - Score, Transfers: Bed, Chair, Wheelchair - Score, Transfers: Toilet - Score, Transfers: Shower - Score, [place] sfers: Tub - Score, Locomotion: Walk - Score, Locomotion: Wheelchair - Score, Comprehension - Score, Expression - Score, Social Interaction - Score, Problem Solving - Score, Memory - Score were [electro nically] signed by Peg Hoffman CNA on TueJun 21 2018 01:11:06 GMT-0600 (Central Standard Time)
[2018-06-21] MEDS: HEPARIN 5000 UNIT/ML 1 ML VIAL SQ SCH ×2 (06:16→19:33)
[2018-06-21] MEDS: PANTOPRAZOLE 40MG TABLET PO SCH (06:51)
[2018-06-21] MEDS: AMLODIPINE 5 MG TAB PO SCH ×2 (08:00→19:34)
[2018-06-21] MEDS: JUVEN PACKET PO SCH ×2 (08:00→19:33)
[2018-06-21] MEDS: POLYETHYL GLY 3350 17 GM/DOSE PO SCH (08:00)
[2018-06-21] MEDS: PROMOD 30 ML DOSE PO SCH ×2 (08:00→19:33)
[2018-06-21] MEDS: ASPIRIN 81 MG CHEWABLE TABLET PO SCH (08:51)
[2018-06-21] MEDS: GABAPENTIN 300 MG CAP PO SCH ×2 (08:51→19:34)
--- NOTE | 2018-06-21 11:06 | FAST ---
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 David Sosa M.D. ADMISSION DIAGNOSIS: - Amputation of Limb 05 - Unilateral Lower Limb Above the Knee (AK) (05.3) Peripheral vascular disease. EATING: EATING - STEP 1: Does the patient require the assistance of a person or device, or need extra time when eating? Yes. EATING - STEP 2: Does the patient require the assistance of a helper? Yes. EATING - STEP 3: Does the patient perform half or more of the eating tasks? Yes. EATING - STEP 4: Does the patient need only supervision, cuing, coaxing OR help to apply an orthosis OR help to cut fo od, open containers, pour liquids, or butter bread? Yes. EATING - SCORE: 5-SUP GROOMING: Activity did not occur on this shift GROOMING - SCORE: 0-UNK BATHING: Activity did not occur on this shift BATHING - SCORE: 0-UNK DRESSING - UPPER BODY: T-shirt/pullover shirt (four steps) ARTICLES SCORE Total number of steps: 4 DRESSING - UPPER BODY - STEP 1: Does the patient require help from a person or device, or need extra time when dressing above the carla st? Yes. DRESSING - UPPER BODY - STEP 2: Does the patient require the assistance of a helper? No. Patient only requires an assistive device, s uch as a button hook, velcro, or adjustment examiner. OR s/he takes more than reasonable time as s/he dresses the upper body. OR there is a concern for safety when s/he dresses the upper body DRESSING - UPPER BODY - SCORE: 6-ANA ROSA DRESSING - LOWER BODY: ARTICLES SCORE Total number of steps: 3 DRESSING - LOWER BODY - STEP 1: Does the patient require help from a person or device, or need extra time when dressing below the carla st? Yes. DRESSING - LOWER BODY - STEP 2: Does the patient require the assistance of a helper? Yes. DRESSING - LOWER BODY - STEP 3: Does the helper touch the patient while dressing? Yes. DRESSING - LOWER BODY - STEP 4: How many of the total steps does the patient complete on his/her own? 2 DRESSING - LOWER BODY - SCORE: 3-MOD TOILETING: TOILETING - STEP 1: Does the patient require the assistance of a person or device, or need extra time with toileting? Yes . TOILETING - STEP 2: Does the patient require the assistance of a helper? Yes. TOILETING - STEP 3: How much assistance does the patient require from the helper? Hands-on assistance from the helper TOILETING - STEP 4: Of the 3 tasks: 1) Adjusting clothing prior to use, 2) Cleansing of perineal area, 3) Adjusting clot boyd after use; How many tasks does the patient perform WITHOUT assistance of the helper? Three tasks with steadying assistance from the helper TOILETING - SCORE: 4-MIN BLADDER MANAGEMENT: BLADDER MANAGEMENT - STEP 1: Does the patient control the bladder completely and intentionally without equipment or devices or med ications, and is always continent? No. BLADDER MANAGEMENT - STEP 2: Does the patient require the assistance of a helper? No, patient requires and independently uses an a ssistive device, such as a urinal, bedpan, bedside commode, catheter, absorbent pad, or collecting de vice BLADDER MANAGEMENT - SCORE: 6-ANA ROSA BOWEL MANAGEMENT: Activity did not occur on this shift BOWEL MANAGEMENT - SCORE: 7-IND TRANSFERS: BED, CHAIR, WHEELCHAIR: TRANSFERS: BED, CHAIR, WHEELCHAIR - STEP 1: Does the patient require assistance of a person or device, or need extra time with bed, chair, or whe elchair transfers? Yes. TRANSFERS: BED, CHAIR, WHEELCHAIR - STEP 2: Does the patient require the assistance of a helper? Yes. TRANSFERS: BED, CHAIR, WHEELCHAIR - STEP 3: How much assistance does the patient require from the helper? Steadying/guiding assistance TRANSFERS: BED, CHAIR, WHEELCHAIR - SCORE: 4-MIN TRANSFERS: TOILET: TRANSFERS: TOILET - STEP 1: Does the patient require the assistance of a person or device, or need extra time with toilet transfe rs? Yes. TRANSFERS: TOILET - STEP 2: Does the patient require the assistance of a helper? Yes. TRANSFERS: TOILET - STEP 3: How much assistance does the patient require from the helper? Patient performs half or more of the tr ansferring tasks TRANSFERS: TOILET - STEP 4: Does the patient need only incidental help such as contact guard or steadying during toilet transfer? Yes. TRANSFERS: TOILET - SCORE: 4-MIN TRANSFERS: SHOWER: Activity did not occur on this shift TRANSFERS: SHOWER - SCORE: 0-UNK TRANSFERS: TUB: Activity did not occur on this shift TRANSFERS: TUB - SCORE: 0-UNK LOCOMOTION: WALK: Activity did not occur on this shift LOCOMOTION: WALK - SCORE: 0-UNK LOCOMOTION: WHEELCHAIR: Activity did not occur on this shift LOCOMOTION: WHEELCHAIR - SCORE: 0-UNK COMPREHENSION: COMPREHENSION: TYPE: Both COMPREHENSION - STEP 1: Does the patient require help from a person or device, or need extra time to understand complex and a bstract ideas (such as current events, finances, discharge planning, medical issues, relationships, e tc)? Yes. COMPREHENSION - STEP 2: Does the patient require help to understand questions or statements about basic needs or ideas (such as hunger, thirst, sleep, safety, daily schedule, room location, or discomfort) half or more of the t isaias? No. COMPREHENSION - STEP 3: How often does the patient need help to understand directions and conversation about basic needs? Les s than 10% of the time COMPREHENSION - SCORE: 5-SUP EXPRESSION EXPRESSION: TYPE: Both EXPRESSION - STEP 1: Does the patient require help from a person or device, or need extra time expressing complex and abst ract ideas (such as current events, finances, discharge planning, medical issues, relationships, etc) ? Yes. EXPRESSION - STEP 2: Does the patient require help to express basic necessities or ideas (such as hunger, thirst, sleep, s afety, daily schedule, room location, or discomfort) half or more of the time? No. EXPRESSION - STEP 3: How often does the patient need help to express directions and conversation about basic needs? Less t gould 10% of the time EXPRESSION - SCORE: 5-SUP SOCIAL INTERACTION: SOCIAL INTERACTION - STEP 1: Does the patient require a helper to interact with others in social and therapeutic situations? No. SOCIAL INTERACTION - STEP 2: Does the patient need extra time in social situations, OR does s/he interact with staff, other patien ts, and family members ONLY in structured environments, OR does s/he require medication for social in teraction? Yes, patient needs extra time SOCIAL INTERACTION - SCORE: 6-ANA ROSA PROBLEM SOLVING: PROBLEM SOLVING - STEP 1: Does the patient need help from a person or device, or need extra time to solve complex problems such as managing a checking account or confronting interpersonal problems? Yes. PROBLEM SOLVING - STEP 2: Does the patient solve basic routine problems half or more of the time? Yes. PROBLEM SOLVING - STEP 3: How often does the patient need help to solve basic routine problems? Less than 10% of the time PROBLEM SOLVING - SCORE: 5-SUP MEMORY: MEMORY - STEP 1: Does the patient need help from a person or device, or need extra time to remember frequently encount ered people, daily routines, and executing requests? Yes. MEMORY - STEP 2: How often does the patient need help to remember frequently encountered people, daily routines, and e xecuting requests? Less than 10% of the time MEMORY - SCORE: 5-SUP SIGNATURE PANEL: The following modified sections: Eating - Score, Grooming - Score, Bathing - Score, Dressing - Upper Body - Score, Dressing - Lower Body - Score, Toileting - Score, Bladder Management - Score, Bowel Man agement - Score, Transfers: Bed, Chair, Wheelchair - Score, Transfers: Toilet - Score, Transfers: Iraida wer - Score, Transfers: Tub - Score, Locomotion: Walk - Score, Locomotion: Wheelchair - Score, Compre hension - Score, Expression - Score, Social Interaction - Score, Problem Solving - Score, Memory - Sc ore were [electronically] signed by Elfego Aguilar on TueJun 21 2018 11:05:56 GMT-0600 (Central Standard Time)
--- NOTE | 2018-06-21 13:48 | FAST ---
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 David Sosa M.D. ADMISSION DIAGNOSIS: - Amputation of Limb 05 - Unilateral Lower Limb Above the Knee (AK) (05.3) Peripheral vascular disease. EATING: Activity did not occur on this shift EATING - SCORE: 0-UNK GROOMING: Activity did not occur on this shift GROOMING - SCORE: 0-UNK BATHING: Activity did not occur on this shift BATHING - SCORE: 0-UNK DRESSING - UPPER BODY: Activity did not occur on this shift Patient is not dressing in public clothing ARTICLES SCORE Total number of steps: 0 DRESSING - UPPER BODY - SCORE: 0-UNK DRESSING - LOWER BODY: Activity did not occur on this shift Patient is not dressing in public clothing ARTICLES SCORE Total number of steps: 0 DRESSING - LOWER BODY - SCORE: 0-UNK TOILETING: Activity did not occur on this shift TOILETING - SCORE: 0-UNK BLADDER MANAGEMENT: Activity did not occur on this shift BLADDER MANAGEMENT - SCORE: 7-IND BOWEL MANAGEMENT: Activity did not occur on this shift BOWEL MANAGEMENT - SCORE: 7-IND TRANSFERS: BED, CHAIR, WHEELCHAIR: TRANSFERS: BED, CHAIR, WHEELCHAIR - STEP 1: Does the patient require assistance of a person or device, or need extra time with bed, chair, or whe elchair transfers? Yes. TRANSFERS: BED, CHAIR, WHEELCHAIR - STEP 2: Does the patient require the assistance of a helper? Yes. TRANSFERS: BED, CHAIR, WHEELCHAIR - STEP 3: How much assistance does the patient require from the helper? Only supervision TRANSFERS: BED, CHAIR, WHEELCHAIR - SCORE: 5-SUP TRANSFERS: TOILET: Activity did not occur on this shift TRANSFERS: TOILET - SCORE: 0-UNK TRANSFERS: SHOWER: Activity did not occur on this shift TRANSFERS: SHOWER - SCORE: 0-UNK TRANSFERS: TUB: Activity did not occur on this shift TRANSFERS: TUB - SCORE: 0-UNK LOCOMOTION: WALK: LOCOMOTION: WALK - STEP 1: Does the patient need help from a person or device, or need extra time to walk 150 feet? Yes. LOCOMOTION: WALK - STEP 2: How much assistance does the patient require to walk a minimum of 150 feet? Only incidental help such as contact guarding or steadying LOCOMOTION: WALK - SCORE: 4-MIN LOCOMOTION: WHEELCHAIR: LOCOMOTION: WHEELCHAIR - STEP 1: Does the patient need help to go 150 feet in a wheelchair? Yes. LOCOMOTION: WHEELCHAIR - STEP 2: How much assistance does the patient need from the helper? Only supervision, cuing, or coaxing LOCOMOTION: WHEELCHAIR - SCORE: 5-SUP LOCOMOTION: STAIRS: Activity did not occur on this shift LOCOMOTION: STAIRS - SCORE: 0-UNK COMPREHENSION: COMPREHENSION - SCORE: 0-UNK EXPRESSION EXPRESSION - SCORE: 0-UNK SOCIAL INTERACTION: SOCIAL INTERACTION - SCORE: 0-UNK PROBLEM SOLVING: PROBLEM SOLVING - SCORE: 0-UNK MEMORY: MEMORY - SCORE: 0-UNK SIGNATURE PANEL: The following modified sections: Transfers: Bed, Chair, Wheelchair - Score, Transfers: Toilet - Score , Locomotion: Walk - Score, Locomotion: Wheelchair - Score, Locomotion: Stairs - Score were [l[place] modi] signed by Latosha Sandoval PTA on TueJun 21 2018 13:47:09 GMT-0600 (Central Standard Time)
--- NOTE | 2018-06-21 15:01 | FAST ---
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 David Sosa M.D. ADMISSION DIAGNOSIS: - Amputation of Limb 05 - Unilateral Lower Limb Above the Knee (AK) (05.3) Peripheral vascular disease. EATING: Activity did not occur on this shift EATING - SCORE: 0-UNK GROOMING: Activity did not occur on this shift GROOMING - SCORE: 0-UNK BATHING: Activity did not occur on this shift BATHING - SCORE: 0-UNK DRESSING - UPPER BODY: Activity did not occur on this shift Patient is not dressing in public clothing ARTICLES SCORE Total number of steps: 0 DRESSING - UPPER BODY - SCORE: 0-UNK DRESSING - LOWER BODY: Activity did not occur on this shift Patient is not dressing in public clothing ARTICLES SCORE Total number of steps: 0 DRESSING - LOWER BODY - SCORE: 0-UNK TOILETING: Activity did not occur on this shift TOILETING - SCORE: 0-UNK BLADDER MANAGEMENT: Activity did not occur on this shift BLADDER MANAGEMENT - SCORE: 7-IND BOWEL MANAGEMENT: Activity did not occur on this shift BOWEL MANAGEMENT - SCORE: 7-IND TRANSFERS: BED, CHAIR, WHEELCHAIR: TRANSFERS: BED, CHAIR, WHEELCHAIR - STEP 1: Does the patient require assistance of a person or device, or need extra time with bed, chair, or whe elchair transfers? Yes. TRANSFERS: BED, CHAIR, WHEELCHAIR - STEP 2: Does the patient require the assistance of a helper? Yes. TRANSFERS: BED, CHAIR, WHEELCHAIR - STEP 3: How much assistance does the patient require from the helper? Only supervision TRANSFERS: BED, CHAIR, WHEELCHAIR - SCORE: 5-SUP TRANSFERS: TOILET: Activity did not occur on this shift TRANSFERS: TOILET - SCORE: 0-UNK TRANSFERS: SHOWER: Activity did not occur on this shift TRANSFERS: SHOWER - SCORE: 0-UNK TRANSFERS: TUB: Activity did not occur on this shift TRANSFERS: TUB - SCORE: 0-UNK LOCOMOTION: WALK: LOCOMOTION: WALK - STEP 1: Does the patient need help from a person or device, or need extra time to walk 150 feet? Yes. LOCOMOTION: WALK - STEP 2: How much assistance does the patient require to walk a minimum of 150 feet? Patient walks less than 1 50 feet - but more than 50 feet - with the assistance of only one helper LOCOMOTION: WALK - SCORE: 2-MAX LOCOMOTION: WHEELCHAIR: LOCOMOTION: WHEELCHAIR - STEP 1: Does the patient need help to go 150 feet in a wheelchair? No. LOCOMOTION: WHEELCHAIR - SCORE: 6-ANA ROSA LOCOMOTION: STAIRS: Activity did not occur on this shift LOCOMOTION: STAIRS - SCORE: 0-UNK COMPREHENSION: COMPREHENSION - SCORE: 0-UNK EXPRESSION EXPRESSION - SCORE: 0-UNK SOCIAL INTERACTION: SOCIAL INTERACTION - SCORE: 0-UNK PROBLEM SOLVING: PROBLEM SOLVING - SCORE: 0-UNK MEMORY: MEMORY - SCORE: 0-UNK SIGNATURE PANEL: The following modified sections: Transfers: Bed, Chair, Wheelchair - Score, Transfers: Toilet - Score , Locomotion: Walk - Score, Locomotion: Wheelchair - Score, Locomotion: Stairs - Score were [electron rian] signed by Macario Arvizu PTA on TueJun 21 2018 15:00:02 GMT-0600 (Central Standard Time)
--- NOTE | 2018-06-21 18:20 | R.PN ---
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 SUBJECTIVE: Pt denied any Shortness of Breath. Pt denied any depression. Ambulated 275' with contact guard assistance using a rolling walker. Self-propelled wheelchair 250' w ith modified independence. Hgb 10.0, Mold Maker 1.48. On hemocyte plus and 8 glasses of water daily. VITAL SIGNS Temperature: 97.4 F SBP/DBP: 113/78 Pulse: 88 Resp: 16 MEDICATION ALLERGIES: TRAMADOL ENVIRONMENTAL ALLERGIES: - Substance Allergies None Known - Other Allergies None Known CONSULT: Perform Consult Certified Prosthetic for prosthesis construction NURSING: - Shower allowing shower - Skin care per protocol PRECAUTIONS: - Weight Bearing Precaution NWB right LE ACTIVITIES OOB only with supervision THERAPIES: - Orthotics/Prosthetics Prosthetic Evaluation. - Occupational Therapy Evaluate and Treat. - Physical Therapy Evaluate and Treat. PHYSICAL EXAM - Gen Alert and awake Lying in bed No apparent distress Oriented to: person, time, and place - Skin Right AKA bandage in place with good hemostasis. Normacephalic - Eyes No abnormalities - ENMT No abnormalities - Neck No abnormalities - CVS RRR - Chest No abnormalities - Resp Clear to auscultation - Abd +bowel sounds - GI nondistended Deferred - No abnormalities - Ext Right AKA stump with good hemostasis. - Neuro No focal deficits - Psych No abnormalities ASSESSMENT: Pt. is a 62 yo Right-handed white male.On 06/05/2018 he was admitted to [facility] and underwent emergency surgery for Peripheral vascular disease (Amputation of Limb(Unilater al Lower Limb Above the Knee (AK))) by Arthur Oconnor.Pre-morbidly, Pt. was independent/mod-I in Trans fers Control, Communication, Social Cognition, Self-Care, Sphincter Control, and Locomotion; and he h ad good Sphincter Control.Currently, he has deficits of Safety Awareness, Transfers Control, Communic ation, Social Cognition, Balance, Endurance, Locomotion, and Self-Care.Pt. is now referred to [facility] for acute in-patient rehabilitation in order to maximize patient's functio nal independence in activities of daily living, strength, ROM, and mobility.Admission did not happen within 48 hour window due to infection in Right skin graft. Medical staff at [facility] re-evaluated a nd patient is now ready for DC. Patients physical and medical status otherwise has not changed and h e is still in need of aggressive inpatient therapy.- Rehab Goal Patient has realistic goal of being discharged at assistance level 6-Ganga to reside at Home with Pt self. MDM/PLAN: - Physical Therapy Gait dysfunction - to improve, our physical therapists will perform initial evaluation of pt's statu s upon admission and devise an individualized program for Gait Training, and Wheel Chair mobility Inability to transfer - to improve, our physical therapists will perform initial evaluation of pt's status upon admission and devise an individualized program for Bed mobility Need for home safety evaluation - to improve, our physical therapists will perform initial evaluatio n of pt's status upon admission and devise an individualized program for Home Evaluation Need in caregiver upon discharge - to improve, our physical therapists will perform initial evaluati on of pt's status upon admission and devise an individualized program for Caregiver Training New precaution - to improve, our physical therapists will perform initial evaluation of pt's status upon admission and devise an individualized program for Patient precaution education Poor balance - to improve, our physical therapists will perform initial evaluation of pt's status up on admission and devise an individualized program for Balance Training Poor endurance - to improve, our physical therapists will perform initial evaluation of pt's status upon admission and devise an individualized program for Endurance Training Weakness - to improve, our physical therapists will perform initial evaluation of pt's status upon a dmission and devise an individualized program for Aquatic Therapy, Neuromuscular Reeducation, and Str engthening Achieving independence - to improve, our physical therapists will perform initial evaluation of pt's status upon admission and devise an individualized program for Community Reintegration Activities - Occupational Therapy ADL deficits - to improve, our occupation therapists will perform initial evaluation of pt's status upon admission and devise an individualized program for Bathing, Bed mobility, Community Reintegratio n, Cooking, Dressing, Eating, Fine Motor Skills, Grooming, Homemaking, Kitchen Mobility, Laundry, Pat ient Education, Safety Awareness, Splinting - Positioning, Transfers(Toilet, Tub, Shower), and Wheel Chair Management Cognitive deficits - to improve, our occupation therapists will perform initial evaluation of pt's s tatus upon admission and devise an individualized program for Cognition - orientation Need for care administrative tech - to improve, our occupation therapists will perform initial evaluation of pt's status upon admission and devise an individualized program for Caregiver Training Weakness - to improve, our occupation therapists will perform initial evaluation of pt's status upon admission and devise an individualized program for Aquatic Therapy, Balance, Endurance, UE ROM, and UE strengthening - Diet Type Continue Regular - Diet - Liquid Texture Continue Regular - Tube Feed Continue N/A - Weight Bearing Precaution NWB right LE - Skin care per protocol - N/A Perform Consult Certified Prosthetic for prosthesis construction - Diet - Solid Texture Continue Regular - Shower allowing shower FUNCTIONAL STATUS: UPDATED AT WEEKLY TEAM CONFERENCE - Bladder Same accident frequency: 7-Ind - No accidents in the past 7 days - Bowel Same accident frequency: 7-Ind - No accidents in the past 7 days - Walking Same score based on distance walked: 1(<=50ft) FUNCTIONAL STATUS: - Self-Care A. Eating Ind B. Grooming sup C. Bathing modA D. Dressing - Upper sup E. Dressing - Lower maxA F. Toileting modA - Sphincter Control G: Bladder control Ind H: Bowel control Ind - Transfers Control I. Bed/Chair/Wheelchair Iwona J. Toilet Iwona K. Tub/Shower Iwona - Locomotion L. Walk/Wheelchair (B) Dep M. Stairs ADNO - Communication N. Comprehension (B) sup O. Expression (B) sup - Social Cognition P. Social Interaction sup Q. Problem Solving sup R. Memory sup - Endurance Fair - Balance Poor - Safety Awareness Fair CURRENT FUNC. 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
[2018-06-21] MEDS: HYDROCODONE/APAP 7.5/325 MG TAB PO PRN (19:33)
[2018-06-21] MEDS: DOCUSATE NA/SENNA CONC 1 TAB PO SCH (19:33)
[2018-06-21] MEDS: MELATONIN 3 MG TABLET PO PRN (19:34)
--- NOTE | 2018-06-22 03:50 | FAST ---
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 David Sosa M.D. ADMISSION DIAGNOSIS: - Amputation of Limb 05 - Unilateral Lower Limb Above the Knee (AK) (05.3) Peripheral vascular disease. EATING: Activity did not occur on this shift EATING - SCORE: 0-UNK GROOMING: Activity did not occur on this shift GROOMING - SCORE: 0-UNK BATHING: Activity did not occur on this shift BATHING - SCORE: 0-UNK DRESSING - UPPER BODY: Activity did not occur on this shift ARTICLES SCORE Total number of steps: 0 DRESSING - UPPER BODY - SCORE: 0-UNK DRESSING - LOWER BODY: Activity did not occur on this shift ARTICLES SCORE Total number of steps: 0 DRESSING - LOWER BODY - SCORE: 0-UNK TOILETING: TOILETING - STEP 1: Does the patient require the assistance of a person or device, or need extra time with toileting? Yes . TOILETING - STEP 2: Does the patient require the assistance of a helper? Yes. TOILETING - STEP 3: How much assistance does the patient require from the helper? Hands-on assistance from the helper TOILETING - STEP 4: Of the 3 tasks: 1) Adjusting clothing prior to use, 2) Cleansing of perineal area, 3) Adjusting clot boyd after use; How many tasks does the patient perform WITHOUT assistance of the helper? Three tasks with steadying assistance from the helper TOILETING - SCORE: 4-MIN BLADDER MANAGEMENT: BLADDER MANAGEMENT - STEP 1: Does the patient control the bladder completely and intentionally without equipment or devices or med ications, and is always continent? Yes. BLADDER MANAGEMENT - SCORE: 7-IND BOWEL MANAGEMENT: Activity did not occur on this shift BOWEL MANAGEMENT - SCORE: 7-IND TRANSFERS: BED, CHAIR, WHEELCHAIR: TRANSFERS: BED, CHAIR, WHEELCHAIR - STEP 1: Does the patient require assistance of a person or device, or need extra time with bed, chair, or whe elchair transfers? Yes. TRANSFERS: BED, CHAIR, WHEELCHAIR - STEP 2: Does the patient require the assistance of a helper? Yes. TRANSFERS: BED, CHAIR, WHEELCHAIR - STEP 3: How much assistance does the patient require from the helper? Steadying/guiding assistance TRANSFERS: BED, CHAIR, WHEELCHAIR - SCORE: 4-MIN TRANSFERS: TOILET: TRANSFERS: TOILET - STEP 1: Does the patient require the assistance of a person or device, or need extra time with toilet transfe rs? Yes. TRANSFERS: TOILET - STEP 2: Does the patient require the assistance of a helper? Yes. TRANSFERS: TOILET - STEP 3: How much assistance does the patient require from the helper? Patient performs half or more of the tr ansferring tasks TRANSFERS: TOILET - STEP 4: Does the patient need only incidental help such as contact guard or steadying during toilet transfer? Yes. TRANSFERS: TOILET - SCORE: 4-MIN TRANSFERS: SHOWER: Activity did not occur on this shift TRANSFERS: SHOWER - SCORE: 0-UNK TRANSFERS: TUB: Activity did not occur on this shift TRANSFERS: TUB - SCORE: 0-UNK LOCOMOTION: WALK: Activity did not occur on this shift LOCOMOTION: WALK - SCORE: 0-UNK LOCOMOTION: WHEELCHAIR: Activity did not occur on this shift LOCOMOTION: WHEELCHAIR - SCORE: 0-UNK COMPREHENSION: COMPREHENSION: TYPE: Both COMPREHENSION - STEP 1: Does the patient require help from a person or device, or need extra time to understand complex and a bstract ideas (such as current events, finances, discharge planning, medical issues, relationships, e tc)? No. COMPREHENSION - STEP 2: Does the patient need extra time, require an assistive device (such as glasses for visual comprehensi on or a hearing aid for auditory comprehension) or does s/he have mild difficulty understanding compl ex and abstract information? No. COMPREHENSION - SCORE: 7-IND EXPRESSION EXPRESSION: TYPE: Both EXPRESSION - STEP 1: Does the patient require help from a person or device, or need extra time expressing complex and abst ract ideas (such as current events, finances, discharge planning, medical issues, relationships, etc) ? No. EXPRESSION - STEP 2: Does the patient need extra time, require an assistive device (such as augmentive communication syste m or a communication board), OR does s/he have mild difficulty expressing complex and abstract ideas (including mild dysarthria or mild word-find problems)? No. EXPRESSION - SCORE: 7-IND SOCIAL INTERACTION: SOCIAL INTERACTION - STEP 1: Does the patient require a helper to interact with others in social and therapeutic situations? No. SOCIAL INTERACTION - STEP 2: Does the patient need extra time in social situations, OR does s/he interact with staff, other patien ts, and family members ONLY in structured environments, OR does s/he require medication for social in teraction? Yes, patient needs extra time SOCIAL INTERACTION - SCORE: 6-ANA ROSA PROBLEM SOLVING: PROBLEM SOLVING - STEP 1: Does the patient need help from a person or device, or need extra time to solve complex problems such as managing a checking account or confronting interpersonal problems? No. PROBLEM SOLVING - STEP 2: Does the patient require extra time to make decisions or solve problems, OR does s/he have slight dif ficulty reading, initiating, or self-correcting in unfamiliar situations? No. PROBLEM SOLVING - SCORE: 7-IND MEMORY: MEMORY - STEP 1: Does the patient need help from a person or device, or need extra time to remember frequently encount ered people, daily routines, and executing requests? No. MEMORY - STEP 2: Does the patient have slight difficulty recognizing frequently encountered people, daily routines, or executing requests without the need for repetition or using self-initiated or environmental cues to remember? No. MEMORY - SCORE: 7-IND SIGNATURE PANEL: The following modified sections: Eating - Score, Grooming - Score, Bathing - Score, Dressing - Upper Body - Score, Dressing - Lower Body - Score, Toileting - Score, Bladder Management - Score, Bowel Man agement - Score, Transfers: Bed, Chair, Wheelchair - Score, Transfers: Toilet - Score, Transfers: Iraida wer - Score, Transfers: Tub - Score, Locomotion: Walk - Score, Locomotion: Wheelchair - Score, Compre hension - Score, Expression - Score, Social Interaction - Score, Problem Solving - Score, Memory - Sc ore were [electronically] signed by Mandy Banegas CNA on TueJun 22 2018 03:49:59 T-0600 ([facility])
[2018-06-22 06:30] LABS: Absolute Monocytes 0.7 K/uL (0.1-1.3); Absolute Neutrophil 4.1 K/uL (1.8-8.0); Basophils % 1.2 % (0-1.3); Eosinophils % 4.6 % (0-4.4); Hematocrit 32.1 % (39.6-49.0); Lymphocytes % 27.7 % (15.3-44.8); MPV 7.4 fL (7.6-11.3); Monocytes % 9.7 % (3.3-12.3); RBC Red Blood Cell Count 3.67 M/uL (4.33-5.43)
[2018-06-22] MEDS: PANTOPRAZOLE 40MG TABLET PO SCH (06:59)
[2018-06-22 07:07] LABS: Albumin 3.3 g/dL (3.4-5.0); Potassium 4.9 mmol/L (3.5-5.1); Prealbumin 22.4 mg/dL (20-40)
[2018-06-22] MEDS: JUVEN PACKET PO SCH ×2 (08:00→19:25)
[2018-06-22] MEDS: HEPARIN 5000 UNIT/ML 1 ML VIAL SQ SCH (08:00)
[2018-06-22] MEDS: PROMOD 30 ML DOSE PO SCH ×2 (08:00→19:25)
[2018-06-22] MEDS: POLYETHYL GLY 3350 17 GM/DOSE PO SCH (08:00)
[2018-06-22] MEDS: ASPIRIN 81 MG CHEWABLE TABLET PO SCH ×2 (08:00→10:26)
[2018-06-22] MEDS: AMLODIPINE 5 MG TAB PO SCH ×2 (10:26→19:29)
[2018-06-22] MEDS: DULOXETINE 20 MG CAP PO SCH (10:26)
[2018-06-22] MEDS: GABAPENTIN 300 MG CAP PO SCH ×2 (10:26→19:29)
--- NOTE | 2018-06-22 14:01 | FAST ---
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 David Sosa M.D. ADMISSION DIAGNOSIS: - Amputation of Limb 05 - Unilateral Lower Limb Above the Knee (AK) (05.3) Peripheral vascular disease. EATING: EATING - STEP 1: Does the patient require the assistance of a person or device, or need extra time when eating? Yes. EATING - STEP 2: Does the patient require the assistance of a helper? No, patient only requires an assistive device, O R s/he takes more than reasonable time to eat, OR there is a safety concern, OR s/he requires modifie d food consistency EATING - SCORE: 6-ANA ROSA GROOMING: Comb/brush hair Oral care GROOMING - STEP 1: Does the patient require the assistance of a person or device, or need extra time when grooming? No. GROOMING - SCORE: 7-IND BATHING: Activity did not occur on this shift BATHING - SCORE: 0-UNK DRESSING - UPPER BODY: Activity did not occur on this shift ARTICLES SCORE Total number of steps: 0 DRESSING - UPPER BODY - SCORE: 0-UNK DRESSING - LOWER BODY: Activity did not occur on this shift ARTICLES SCORE Total number of steps: 0 DRESSING - LOWER BODY - SCORE: 0-UNK TOILETING: TOILETING - STEP 1: Does the patient require the assistance of a person or device, or need extra time with toileting? Yes . TOILETING - STEP 2: Does the patient require the assistance of a helper? Yes. TOILETING - STEP 3: How much assistance does the patient require from the helper? Hands-on assistance from the helper TOILETING - STEP 4: Of the 3 tasks: 1) Adjusting clothing prior to use, 2) Cleansing of perineal area, 3) Adjusting clot boyd after use; How many tasks does the patient perform WITHOUT assistance of the helper? Three tasks with steadying assistance from the helper TOILETING - SCORE: 4-MIN BLADDER MANAGEMENT: BLADDER MANAGEMENT - STEP 1: Does the patient control the bladder completely and intentionally without equipment or devices or med ications, and is always continent? No. BLADDER MANAGEMENT - STEP 2: Does the patient require the assistance of a helper? No, patient requires and independently uses an a ssistive device, such as a urinal, bedpan, bedside commode, catheter, absorbent pad, or collecting de vice BLADDER MANAGEMENT - SCORE: 6-ANA ROSA BOWEL MANAGEMENT: Activity did not occur on this shift BOWEL MANAGEMENT - SCORE: 7-IND TRANSFERS: BED, CHAIR, WHEELCHAIR: TRANSFERS: BED, CHAIR, WHEELCHAIR - STEP 1: Does the patient require assistance of a person or device, or need extra time with bed, chair, or whe elchair transfers? Yes. TRANSFERS: BED, CHAIR, WHEELCHAIR - STEP 2: Does the patient require the assistance of a helper? Yes. TRANSFERS: BED, CHAIR, WHEELCHAIR - STEP 3: How much assistance does the patient require from the helper? Steadying/guiding assistance TRANSFERS: BED, CHAIR, WHEELCHAIR - SCORE: 4-MIN TRANSFERS: TOILET: TRANSFERS: TOILET - STEP 1: Does the patient require the assistance of a person or device, or need extra time with toilet transfe rs? Yes. TRANSFERS: TOILET - STEP 2: Does the patient require the assistance of a helper? Yes. TRANSFERS: TOILET - STEP 3: How much assistance does the patient require from the helper? Patient performs half or more of the tr ansferring tasks TRANSFERS: TOILET - STEP 4: Does the patient need only incidental help such as contact guard or steadying during toilet transfer? No. Patient needs more than incidental help TRANSFERS: TOILET - SCORE: 3-MOD TRANSFERS: SHOWER: Activity did not occur on this shift TRANSFERS: SHOWER - SCORE: 0-UNK TRANSFERS: TUB: Activity did not occur on this shift TRANSFERS: TUB - SCORE: 0-UNK LOCOMOTION: WALK: Activity did not occur on this shift LOCOMOTION: WALK - SCORE: 0-UNK LOCOMOTION: WHEELCHAIR: Activity did not occur on this shift LOCOMOTION: WHEELCHAIR - SCORE: 0-UNK COMPREHENSION: COMPREHENSION: TYPE: Both COMPREHENSION - STEP 1: Does the patient require help from a person or device, or need extra time to understand complex and a bstract ideas (such as current events, finances, discharge planning, medical issues, relationships, e tc)? Yes. COMPREHENSION - STEP 2: Does the patient require help to understand questions or statements about basic needs or ideas (such as hunger, thirst, sleep, safety, daily schedule, room location, or discomfort) half or more of the t isaias? No. COMPREHENSION - STEP 3: How often does the patient need help to understand directions and conversation about basic needs? Les s than 10% of the time COMPREHENSION - SCORE: 5-SUP EXPRESSION EXPRESSION: TYPE: Both EXPRESSION - STEP 1: Does the patient require help from a person or device, or need extra time expressing complex and abst ract ideas (such as current events, finances, discharge planning, medical issues, relationships, etc) ? Yes. EXPRESSION - STEP 2: Does the patient require help to express basic necessities or ideas (such as hunger, thirst, sleep, s afety, daily schedule, room location, or discomfort) half or more of the time? No. EXPRESSION - STEP 3: How often does the patient need help to express directions and conversation about basic needs? Less t gould 10% of the time EXPRESSION - SCORE: 5-SUP SOCIAL INTERACTION: SOCIAL INTERACTION - STEP 1: Does the patient require a helper to interact with others in social and therapeutic situations? No. SOCIAL INTERACTION - STEP 2: Does the patient need extra time in social situations, OR does s/he interact with staff, other patien ts, and family members ONLY in structured environments, OR does s/he require medication for social in teraction? Yes, patient needs extra time SOCIAL INTERACTION - SCORE: 6-ANA ROSA PROBLEM SOLVING: PROBLEM SOLVING - STEP 1: Does the patient need help from a person or device, or need extra time to solve complex problems such as managing a checking account or confronting interpersonal problems? Yes. PROBLEM SOLVING - STEP 2: Does the patient solve basic routine problems half or more of the time? Yes. PROBLEM SOLVING - STEP 3: How often does the patient need help to solve basic routine problems? Less than 10% of the time PROBLEM SOLVING - SCORE: 5-SUP MEMORY: MEMORY - STEP 1: Does the patient need help from a person or device, or need extra time to remember frequently encount ered people, daily routines, and executing requests? Yes. MEMORY - STEP 2: How often does the patient need help to remember frequently encountered people, daily routines, and e xecuting requests? Less than 10% of the time MEMORY - SCORE: 5-SUP SIGNATURE PANEL: The following modified sections: Eating - Score, Grooming - Score, Bathing - Score, Dressing - Upper Body - Score, Dressing - Lower Body - Score, Toileting - Score, Bladder Management - Score, Bowel Man agement - Score, Transfers: Bed, Chair, Wheelchair - Score, Transfers: Toilet - Score, Transfers: Iraida wer - Score, Transfers: Tub - Score, Locomotion: Walk - Score, Locomotion: Wheelchair - Score, Compre hension - Score, Expression - Score, Social Interaction - Score, Problem Solving - Score, Memory - Sc ore were [electronically] signed by Elfego Aguilar on TueJun 22 2018 14:00:20 GMT-0600 (Central Standard Time)
--- NOTE | 2018-06-22 14:46 | FAST ---
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 David Sosa M.D. ADMISSION DIAGNOSIS: - Amputation of Limb 05 - Unilateral Lower Limb Above the Knee (AK) (05.3) Peripheral vascular disease. EATING: EATING - STEP 1: Does the patient require the assistance of a person or device, or need extra time when eating? No. EATING - SCORE: 7-IND GROOMING: Comb/brush hair Wash, rinse, and dry face Wash, rinse, and dry hands GROOMING - STEP 1: Does the patient require the assistance of a person or device, or need extra time when grooming? No. GROOMING - SCORE: 7-IND BATHING: Abdomen Buttocks Chest Left arm Left lower leg and foot Left upper leg Perineal area Right arm Right upper leg BATHING - STEP 1: Does the patient require the assistance of a person or device, or need extra time when bathing? Yes. BATHING - STEP 2: Does the patient require the assistance of a helper? Yes. BATHING - STEP 3: How much assistance does the patient require from the helper? Only supervision, cuing, coaxing, instr uctions, encouragement BATHING - SCORE: 5-SUP DRESSING - UPPER BODY: T-shirt/pullover shirt (four steps) ARTICLES SCORE Total number of steps: 4 DRESSING - UPPER BODY - STEP 1: Does the patient require help from a person or device, or need extra time when dressing above the [address]la [address]? No. DRESSING - UPPER BODY - SCORE: 7-IND DRESSING - LOWER BODY: Elastic waist pants (three steps) Sock - Left foot (one step) Tied or buckled shoe - Left foot (two steps) Underwear (three steps) Zippered pants (four steps) ARTICLES SCORE Total number of steps: 13 DRESSING - LOWER BODY - STEP 1: Does the patient require help from a person or device, or need extra time when dressing below the carla st? Yes. DRESSING - LOWER BODY - STEP 2: Does the patient require the assistance of a helper? Yes. DRESSING - LOWER BODY - STEP 3: Does the helper touch the patient while dressing? Yes. DRESSING - LOWER BODY - STEP 4: How many of the total steps does the patient complete on his/her own? 13 DRESSING - LOWER BODY - SCORE: 4-MIN TOILETING: Activity did not occur on this shift TOILETING - SCORE: 0-UNK BLADDER MANAGEMENT: Activity did not occur on this shift BLADDER MANAGEMENT - SCORE: 7-IND BOWEL MANAGEMENT: Activity did not occur on this shift BOWEL MANAGEMENT - SCORE: 7-IND TRANSFERS: BED, CHAIR, WHEELCHAIR: Activity did not occur on this shift TRANSFERS: BED, CHAIR, WHEELCHAIR - SCORE: 0-UNK TRANSFERS: TOILET: Activity did not occur on this shift TRANSFERS: TOILET - SCORE: 0-UNK TRANSFERS: SHOWER: Activity did not occur on this shift TRANSFERS: SHOWER - SCORE: 0-UNK TRANSFERS: TUB: TRANSFERS: TUB - STEP 1: Does the patient require the assistance of a person or device, or need extra time with tub transfers? Yes. TRANSFERS: TUB - STEP 2: Does the patient require the assistance of a helper? Yes. TRANSFERS: TUB - STEP 3: How much assistance does the patient require from the helper? Only supervision, cuing, coaxing, or he lp to set out transfer equipment or to lock brakes and/or lift foot rests TRANSFERS: TUB - SCORE: 5-SUP LOCOMOTION: WALK: Activity did not occur on this shift LOCOMOTION: WALK - SCORE: 0-UNK LOCOMOTION: WHEELCHAIR: Activity did not occur on this shift LOCOMOTION: WHEELCHAIR - SCORE: 0-UNK LOCOMOTION: STAIRS: Activity did not occur on this shift LOCOMOTION: STAIRS - SCORE: 0-UNK COMPREHENSION: COMPREHENSION: TYPE: Both COMPREHENSION - STEP 1: Does the patient require help from a person or device, or need extra time to understand complex and a bstract ideas (such as current events, finances, discharge planning, medical issues, relationships, e tc)? No. COMPREHENSION - STEP 2: Does the patient need extra time, require an assistive device (such as glasses for visual comprehensi on or a hearing aid for auditory comprehension) or does s/he have mild difficulty understanding compl ex and abstract information? No. COMPREHENSION - SCORE: 7-IND EXPRESSION EXPRESSION: TYPE: Both EXPRESSION - STEP 1: Does the patient require help from a person or device, or need extra time expressing complex and abst ract ideas (such as current events, finances, discharge planning, medical issues, relationships, etc) ? No. EXPRESSION - STEP 2: Does the patient need extra time, require an assistive device (such as augmentive communication syste m or a communication board), OR does s/he have mild difficulty expressing complex and abstract ideas (including mild dysarthria or mild word-find problems)? No. EXPRESSION - SCORE: 7-IND SOCIAL INTERACTION: SOCIAL INTERACTION - STEP 1: Does the patient require a helper to interact with others in social and therapeutic situations? No. SOCIAL INTERACTION - STEP 2: Does the patient need extra time in social situations, OR does s/he interact with staff, other patien ts, and family members ONLY in structured environments, OR does s/he require medication for social in teraction? Yes, patient requires medication for social interaction SOCIAL INTERACTION - SCORE: 6-ANA ROSA PROBLEM SOLVING: PROBLEM SOLVING - STEP 1: Does the patient need help from a person or device, or need extra time to solve complex problems such as managing a checking account or confronting interpersonal problems? No. PROBLEM SOLVING - STEP 2: Does the patient require extra time to make decisions or solve problems, OR does s/he have slight dif ficulty reading, initiating, or self-correcting in unfamiliar situations? No. PROBLEM SOLVING - SCORE: 7-IND MEMORY: MEMORY - STEP 1: Does the patient need help from a person or device, or need extra time to remember frequently encount ered people, daily routines, and executing requests? No. MEMORY - STEP 2: Does the patient have slight difficulty recognizing frequently encountered people, daily routines, or executing requests without the need for repetition or using self-initiated or environmental cues to remember? Yes. MEMORY - SCORE: 6-ANA ROSA SIGNATURE PANEL: The following modified sections: Eating - Score, Grooming - Score, Bathing - Score, Dressing - Upper Body - Score, Dressing - Lower Body - Score, Toileting - Score, Transfers: Bed, Chair, Wheelchair - S core, Transfers: Toilet - Score, Transfers: Shower - Score, Transfers: Tub - Score, Comprehension - S core, Expression - Score, Social Interaction - Score, Problem Solving - Score, Memory - Score were [e lectronically] signed by Carey Cotter OT on TueJun 22 2018 14:46:02 [facility]-0600 (Central Standard T isaias)
--- NOTE | 2018-06-22 15:57 | FAST ---
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 David Sosa M.D. ADMISSION DIAGNOSIS: - Amputation of Limb 05 - Unilateral Lower Limb Above the Knee (AK) (05.3) Peripheral vascular disease. EATING: Activity did not occur on this shift EATING - SCORE: 0-UNK GROOMING: Activity did not occur on this shift GROOMING - SCORE: 0-UNK BATHING: Activity did not occur on this shift BATHING - SCORE: 0-UNK DRESSING - UPPER BODY: Activity did not occur on this shift Patient is not dressing in public clothing ARTICLES SCORE Total number of steps: 0 DRESSING - UPPER BODY - SCORE: 0-UNK DRESSING - LOWER BODY: Activity did not occur on this shift Patient is not dressing in public clothing ARTICLES SCORE Total number of steps: 0 DRESSING - LOWER BODY - SCORE: 0-UNK TOILETING: Activity did not occur on this shift TOILETING - SCORE: 0-UNK BLADDER MANAGEMENT: Activity did not occur on this shift BLADDER MANAGEMENT - SCORE: 7-IND BOWEL MANAGEMENT: Activity did not occur on this shift BOWEL MANAGEMENT - SCORE: 7-IND TRANSFERS: BED, CHAIR, WHEELCHAIR: TRANSFERS: BED, CHAIR, WHEELCHAIR - STEP 1: Does the patient require assistance of a person or device, or need extra time with bed, chair, or whe elchair transfers? Yes. TRANSFERS: BED, CHAIR, WHEELCHAIR - STEP 2: Does the patient require the assistance of a helper? Yes. TRANSFERS: BED, CHAIR, WHEELCHAIR - STEP 3: How much assistance does the patient require from the helper? Only supervision TRANSFERS: BED, CHAIR, WHEELCHAIR - SCORE: 5-SUP TRANSFERS: TOILET: Activity did not occur on this shift TRANSFERS: TOILET - SCORE: 0-UNK TRANSFERS: SHOWER: Activity did not occur on this shift TRANSFERS: SHOWER - SCORE: 0-UNK TRANSFERS: TUB: Activity did not occur on this shift TRANSFERS: TUB - SCORE: 0-UNK LOCOMOTION: WALK: LOCOMOTION: WALK - STEP 1: Does the patient need help from a person or device, or need extra time to walk 150 feet? Yes. LOCOMOTION: WALK - STEP 2: How much assistance does the patient require to walk a minimum of 150 feet? Patient walks less than 1 50 feet - but more than 50 feet - with the assistance of only one helper LOCOMOTION: WALK - SCORE: 2-MAX LOCOMOTION: WHEELCHAIR: LOCOMOTION: WHEELCHAIR - STEP 1: Does the patient need help to go 150 feet in a wheelchair? No. LOCOMOTION: WHEELCHAIR - SCORE: 6-ANA ROSA LOCOMOTION: STAIRS: Activity did not occur on this shift LOCOMOTION: STAIRS - SCORE: 0-UNK COMPREHENSION: COMPREHENSION - SCORE: 0-UNK EXPRESSION EXPRESSION - SCORE: 0-UNK SOCIAL INTERACTION: SOCIAL INTERACTION - SCORE: 0-UNK PROBLEM SOLVING: PROBLEM SOLVING - SCORE: 0-UNK MEMORY: MEMORY - SCORE: 0-UNK SIGNATURE PANEL: The following modified sections: Transfers: Bed, Chair, Wheelchair - Score, Transfers: Toilet - Score , Locomotion: Walk - Score, Locomotion: Wheelchair - Score, Locomotion: Stairs - Score were [electron icacheri] signed by Chidi Marshall PT on TueJun 22 2018 15:57:09 GMT-0600 (Central Standard Time)
[2018-06-22] MEDS: DOCUSATE NA/SENNA CONC 1 TAB PO SCH (19:26)
[2018-06-22] MEDS: HYDROCODONE/APAP 7.5/325 MG TAB PO PRN (19:30)
[2018-06-22] MEDS ORDERED: APIXABAN 2.5 MG TABLET PO SCH (20:00)
[2018-06-23] MEDS: HYDROCODONE/APAP 7.5/325 MG TAB PO PRN ×2 (00:35→19:30)
--- NOTE | 2018-06-23 01:32 | FAST ---
SHIFT START DATE/TIME: 06/22/2018 19:00 (RECORDIST) SHIFT END DATE/TIME: 06/23/2018 07:00 (RECORDIST) NAME GARY RANDALL DATE OF : 1955 DATE OF ADMISSION: 06/15/2018 17:00 (RECORDIST) PHONE: AGE: 62 SSN# [id number] GENDER: Male ENCOUNTER PHYSICIAN: Dr. David Sosa M.D. ADMISSION DIAGNOSIS: - Amputation of Limb 05 - Unilateral Lower Limb Above the Knee (AK) (05.3) Peripheral vascular disease. EATING: Activity did not occur on this shift EATING - SCORE: 0-UNK GROOMING: Activity did not occur on this shift GROOMING - SCORE: 0-UNK BATHING: Activity did not occur on this shift BATHING - SCORE: 0-UNK DRESSING - UPPER BODY: Patient is not dressing in public clothing ARTICLES SCORE Total number of steps: 0 DRESSING - UPPER BODY - SCORE: 0-UNK DRESSING - LOWER BODY: Patient is not dressing in public clothing ARTICLES SCORE Total number of steps: 0 DRESSING - LOWER BODY - SCORE: 0-UNK TOILETING: Activity did not occur on this shift TOILETING - SCORE: 0-UNK BLADDER MANAGEMENT: BLADDER MANAGEMENT - STEP 1: Does the patient control the bladder completely and intentionally without equipment or devices or med ications, and is always continent? Yes. BLADDER MANAGEMENT - SCORE: 7-IND BOWEL MANAGEMENT: Activity did not occur on this shift BOWEL MANAGEMENT - SCORE: 7-IND TRANSFERS: BED, CHAIR, WHEELCHAIR: TRANSFERS: BED, CHAIR, WHEELCHAIR - STEP 1: Does the patient require assistance of a person or device, or need extra time with bed, chair, or whe elchair transfers? Yes. TRANSFERS: BED, CHAIR, WHEELCHAIR - STEP 2: Does the patient require the assistance of a helper? Yes. TRANSFERS: BED, CHAIR, WHEELCHAIR - STEP 3: How much assistance does the patient require from the helper? Steadying/guiding assistance TRANSFERS: BED, CHAIR, WHEELCHAIR - SCORE: 4-MIN TRANSFERS: TOILET: Activity did not occur on this shift TRANSFERS: TOILET - SCORE: 0-UNK TRANSFERS: SHOWER: Activity did not occur on this shift TRANSFERS: SHOWER - SCORE: 0-UNK TRANSFERS: TUB: Activity did not occur on this shift TRANSFERS: TUB - SCORE: 0-UNK LOCOMOTION: WALK: Activity did not occur on this shift LOCOMOTION: WALK - SCORE: 0-UNK LOCOMOTION: WHEELCHAIR: Activity did not occur on this shift LOCOMOTION: WHEELCHAIR - SCORE: 0-UNK COMPREHENSION: COMPREHENSION: TYPE: Both COMPREHENSION - STEP 1: Does the patient require help from a person or device, or need extra time to understand complex and a bstract ideas (such as current events, finances, discharge planning, medical issues, relationships, e tc)? No. COMPREHENSION - STEP 2: Does the patient need extra time, require an assistive device (such as glasses for visual comprehensi on or a hearing aid for auditory comprehension) or does s/he have mild difficulty understanding compl ex and abstract information? No. COMPREHENSION - SCORE: 7-IND EXPRESSION EXPRESSION: TYPE: Both EXPRESSION - STEP 1: Does the patient require help from a person or device, or need extra time expressing complex and abst ract ideas (such as current events, finances, discharge planning, medical issues, relationships, etc) ? No. EXPRESSION - STEP 2: Does the patient need extra time, require an assistive device (such as augmentive communication syste m or a communication board), OR does s/he have mild difficulty expressing complex and abstract ideas (including mild dysarthria or mild word-find problems)? No. EXPRESSION - SCORE: 7-IND SOCIAL INTERACTION: SOCIAL INTERACTION - STEP 1: Does the patient require a helper to interact with others in social and therapeutic situations? No. SOCIAL INTERACTION - STEP 2: Does the patient need extra time in social situations, OR does s/he interact with staff, other patien ts, and family members ONLY in structured environments, OR does s/he require medication for social in teraction? Yes, patient requires medication for social interaction SOCIAL INTERACTION - SCORE: 6-ANA ROSA PROBLEM SOLVING: PROBLEM SOLVING - STEP 1: Does the patient need help from a person or device, or need extra time to solve complex problems such as managing a checking account or confronting interpersonal problems? No. PROBLEM SOLVING - STEP 2: Does the patient require extra time to make decisions or solve problems, OR does s/he have slight dif ficulty reading, initiating, or self-correcting in unfamiliar situations? No. PROBLEM SOLVING - SCORE: 7-IND MEMORY: MEMORY - STEP 1: Does the patient need help from a person or device, or need extra time to remember frequently encount ered people, daily routines, and executing requests? No. MEMORY - STEP 2: Does the patient have slight difficulty recognizing frequently encountered people, daily routines, or executing requests without the need for repetition or using self-initiated or environmental cues to remember? No. MEMORY - SCORE: 7-IND SIGNATURE PANEL: The following modified sections: Eating - Score, Grooming - Score, Bathing - Score, Dressing - Upper Body - Score, Dressing - Lower Body - Score, Toileting - Score, Bladder Management - Score, Bowel Man agement - Score, Transfers: Bed, Chair, Wheelchair - Score, Transfers: Toilet - Score, Transfers: Iraida wer - Score, Transfers: Tub - Score, Locomotion: Walk - Score, Locomotion: Wheelchair - Score, Compre hension - Score, Expression - Score, Social Interaction - Score, Problem Solving - Score, Memory - Sc ore were [electronically] signed by Mandy Banegas CNA on TueJun 23 2018 01:32:04 T-0600 ([facility])
[2018-06-23] MEDS: POLYETHYL GLY 3350 17 GM/DOSE PO SCH (08:00)
[2018-06-23] MEDS: ASPIRIN 81 MG CHEWABLE TABLET PO SCH (08:00)
[2018-06-23] MEDS: PROMOD 30 ML DOSE PO SCH ×2 (08:00→19:37)
[2018-06-23] MEDS: AMLODIPINE 5 MG TAB PO SCH ×2 (08:00→19:29)
[2018-06-23] MEDS: JUVEN PACKET PO SCH ×2 (08:00→19:37)
[2018-06-23] MEDS: PANTOPRAZOLE 40MG TABLET PO SCH (08:13)
[2018-06-23] MEDS: GABAPENTIN 300 MG CAP PO SCH ×2 (08:13→19:29)
[2018-06-23] MEDS: CLOPIDOGREL 75 MG TABLET PO SCH (08:19)
[2018-06-23] MEDS: DULOXETINE 20 MG CAP PO SCH (08:19)
--- NOTE | 2018-06-23 09:50 | P.RH.PN ---
Estimated Length of Stay: 13 Expected Discharge Date: 06/27/18 Discharge Disposition Plan: Home Family Support: Yes Jail Goal: Mobility, Transfers, Self Care Vital Signs: Last Vital Signs Temp 96.6 F L 06/23/18 07:15 Pulse 80 06/23/18 08:00 Resp 16 06/23/18 07:15 BP 113/73 06/23/18 08:00 Pulse Ox 98 06/23/18 07:15 Laboratory: Laboratory Last Values WBC 7.2 K/uL (4.3-10.9) D 06/22/18 05:52 RBC 3.67 M/uL (4.33-5.43) L 06/22/18 05:52 Hgb 10.6 g/dL (13.6-17.9) L 06/22/18 05:52 Hct 32.1 % (39.6-49.0) L 06/22/18 05:52 MCV 87.6 fL (80-100) 06/22/18 05:52 MCH 29.0 pg (27.0-35.0) 06/22/18 05:52 MCHC 33.1 g/dL (32.0-36.0) 06/22/18 05:52 RDW 16.1 % (12.1-15.2) H 06/22/18 05:52 Plt Count 405 K/uL (152-406) D 06/22/18 05:52 MPV 7.4 fL (7.6-11.3) L 06/22/18 05:52 Neutrophils % 56.8 % (41.7-73.7) 06/22/18 05:52 Lymphocytes % 27.7 % (15.3-44.8) 06/22/18 05:52 Monocytes % 9.7 % (3.3-12.3) 06/22/18 05:52 Eosinophils % 4.6 % (0-4.4) H 06/22/18 05:52 Basophils % 1.2 % (0-1.3) 06/22/18 05:52 Absolute Neutrophils 4.1 K/uL (1.8-8.0) 06/22/18 05:52 Absolute Lymphocytes 2.0 K/uL (0.7-4.9) 06/22/18 05:52 Absolute Monocytes 0.7 K/uL (0.1-1.3) 06/22/18 05:52 Absolute Eosinophils 0.3 K/uL (0-0.5) 06/22/18 05:52 Absolute Basophils 0.1 K/uL (0-0.5) 06/22/18 05:52 Sodium 141 mmol/L (136-145) 06/22/18 05:52 Potassium 4.9 mmol/L (3.5-5.1) 06/22/18 05:52 Chloride 110 mmol/L (98-107) H 06/22/18 05:52 Carbon Dioxide 24 mmol/L (21-32) 06/22/18 05:52 BUN 24 mg/dL (7-18) H 06/22/18 05:52 Creatinine 1.55 mg/dL (0.55-1.3) H 06/22/18 05:52 Estimated GFR 46 mL/min (=/>90) L 06/22/18 05:52 Glucose 98 mg/dL (74-106) 06/22/18 05:52 Calcium 9.0 mg/dL (8.5-10.1) 06/22/18 05:52 Magnesium 2.5 mg/dL (1.8-2.4) H D 06/16/18 06:08 Albumin 3.3 g/dL (3.4-5.0) L 06/22/18 05:52 Prealbumin 22.4 mg/dL (20-40) 06/22/18 05:52 Urine Color Yellow 06/15/18 18:50 Urine Appearance Clear 06/15/18 18:50 Urine pH 6.0 (5.0-7.0) 06/15/18 18:50 Ur Specific [place] 1.015 (1.005-1.030) 06/15/18 18:50 Urine Ketones Negative (NEG) 06/15/18 18:50 Urine Blood Negative (NEG) 06/15/18 18:50 Urine Nitrite Negative (NEG) 06/15/18 18:50 Urine Bilirubin Negative (NEG) 06/15/18 18:50 Urine Urobilinogen 0.2 mg/dL (0.2-1.0) 06/15/18 18:50 Ur Leukocyte Esterase Negative (NEG) 06/15/18 18:50 Urine RBC <5 /HPF (NONE SEEN) 06/15/18 18:50 Urine WBC None seen /HPF (<5) 06/15/18 18:50 Ur Squamous Epith Cells <5 /HPF (NONE SEEN) 06/15/18 18:50 Urine Bacteria None seen /HPF (NONE SEEN) 06/15/18 18:50 Urine Culture Reflexed Not needed 06/15/18 18:50 Urine Glucose Negative (NEG) 06/15/18 18:50 Urine Total Protein Negative (NEG) 06/15/18 18:50 Weight: 160 lb Wound Present: Yes Closed Surgical Incision Present: Yes Negative Pressure Wound Therapy Present: No Physician Update: His labs have been reviewed and creatinine is elevated to 1.55 , up from 1.48. He is doing well with physical and occupational therapy. He walks 90 to 180 feet with standby assistance. Pain Issues: [place] 7.5mg Q4H PRN Functional Improvement: pt has demonstrated improved functional performance. Unfortunately, pt's mood the past couple of days has been fairly depressed. pt is still willing to participate in therapy; however, his level of eagerness and excitement has diminished. Summary: Patient's care plan and care home goals have been reviewed and revised as necessary. Please see the Rehabilitation Signature page for all necessary signatures.
--- NOTE | 2018-06-23 11:04 | FAST ---
SHIFT START DATE/TIME: 06/23/2018 07:00 (MANAGER PLANT) SHIFT END DATE/TIME: 06/23/2018 19:00 (MANAGER PLANT) NAME GARY RANDALL DATE OF : 1955 DATE OF ADMISSION: 06/15/2018 17:00 (MANAGER PLANT) PHONE: AGE: 62 SSN# [id number] GENDER: Male ENCOUNTER PHYSICIAN: Dr. David Sosa M.D. ADMISSION DIAGNOSIS: - Amputation of Limb 05 - Unilateral Lower Limb Above the Knee (AK) (05.3) Peripheral vascular disease. EATING: EATING - STEP 1: Does the patient require the assistance of a person or device, or need extra time when eating? No. EATING - SCORE: 7-IND GROOMING: GROOMING - STEP 1: Does the patient require the assistance of a person or device, or need extra time when grooming? No. GROOMING - SCORE: 7-IND BATHING: Activity did not occur on this shift BATHING - SCORE: 0-UNK DRESSING - UPPER BODY: Activity did not occur on this shift ARTICLES SCORE Total number of steps: 0 DRESSING - UPPER BODY - SCORE: 0-UNK DRESSING - LOWER BODY: Activity did not occur on this shift ARTICLES SCORE Total number of steps: 0 DRESSING - LOWER BODY - SCORE: 0-UNK TOILETING: TOILETING - STEP 1: Does the patient require the assistance of a person or device, or need extra time with toileting? No. TOILETING - SCORE: 7-IND BLADDER MANAGEMENT: BLADDER MANAGEMENT - STEP 1: Does the patient control the bladder completely and intentionally without equipment or devices or med ications, and is always continent? Yes. BLADDER MANAGEMENT - SCORE: 7-IND BLADDER MANAGEMENT - FREQUENCY OF ACCIDENTS: BLADDER MANAGEMENT(FA) - STEP 1: How many accidents has the patient had during the current shift? 0 BOWEL MANAGEMENT: BOWEL MANAGEMENT - STEP 1: Does the patient control bowels completely and intentionally without equipment devices or medications AND is always continent? Yes. BOWEL MANAGEMENT - SCORE: 7-IND BOWEL MANAGEMENT - FREQUENCY OF ACCIDENTS: BOWEL MANAGEMENT(FA) - STEP 1: How many accidents has the patient had during the current shift? 0 TRANSFERS: BED, CHAIR, WHEELCHAIR: TRANSFERS: BED, CHAIR, WHEELCHAIR - STEP 1: Does the patient require assistance of a person or device, or need extra time with bed, chair, or whe elchair transfers? Yes. TRANSFERS: BED, CHAIR, WHEELCHAIR - STEP 2: Does the patient require the assistance of a helper? Yes. TRANSFERS: BED, CHAIR, WHEELCHAIR - STEP 3: How much assistance does the patient require from the helper? Steadying/guiding assistance TRANSFERS: BED, CHAIR, WHEELCHAIR - SCORE: 4-MIN TRANSFERS: TOILET: TRANSFERS: TOILET - STEP 1: Does the patient require the assistance of a person or device, or need extra time with toilet transfe rs? Yes. TRANSFERS: TOILET - STEP 2: Does the patient require the assistance of a helper? Yes. TRANSFERS: TOILET - STEP 3: How much assistance does the patient require from the helper? Patient performs half or more of the tr ansferring tasks TRANSFERS: TOILET - STEP 4: Does the patient need only incidental help such as contact guard or steadying during toilet transfer? Yes. TRANSFERS: TOILET - SCORE: 4-MIN TRANSFERS: SHOWER: Activity did not occur on this shift TRANSFERS: SHOWER - SCORE: 0-UNK TRANSFERS: TUB: Activity did not occur on this shift TRANSFERS: TUB - SCORE: 0-UNK LOCOMOTION: WALK: Activity did not occur on this shift LOCOMOTION: WALK - SCORE: 0-UNK LOCOMOTION: WHEELCHAIR: Activity did not occur on this shift LOCOMOTION: WHEELCHAIR - SCORE: 0-UNK COMPREHENSION: COMPREHENSION - SCORE: 0-UNK EXPRESSION EXPRESSION - SCORE: 0-UNK SOCIAL INTERACTION: SOCIAL INTERACTION - SCORE: 0-UNK PROBLEM SOLVING: PROBLEM SOLVING - SCORE: 0-UNK MEMORY: MEMORY - SCORE: 0-UNK SIGNATURE PANEL: The following modified sections: Eating - Score, Grooming - Score, Bathing - Score, Dressing - Upper Body - Score, Dressing - Lower Body - Score, Toileting - Score, Bladder Management - Score, Bowel Man agement - Score, Transfers: Bed, Chair, Wheelchair - Score, Transfers: Toilet - Score, Transfers: Iraida wer - Score, Transfers: Tub - Score, Locomotion: Walk - Score, Locomotion: Wheelchair - Score, Compre hension - Score, Expression - Score, Social Interaction - Score, Problem Solving - Score, Memory - Sc ore were [electronically] signed by Shari Fernandez CNA on TueJun 23 2018 11:03:17 GMT-0600 ([facility])
--- NOTE | 2018-06-23 14:29 | FAST ---
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 David Sosa M.D. ADMISSION DIAGNOSIS: - Amputation of Limb 05 - Unilateral Lower Limb Above the Knee (AK) (05.3) Peripheral vascular disease. EATING: Activity did not occur on this shift EATING - SCORE: 0-UNK GROOMING: Activity did not occur on this shift GROOMING - SCORE: 0-UNK BATHING: Activity did not occur on this shift BATHING - SCORE: 0-UNK DRESSING - UPPER BODY: Activity did not occur on this shift Patient is not dressing in public clothing ARTICLES SCORE Total number of steps: 0 DRESSING - UPPER BODY - SCORE: 0-UNK DRESSING - LOWER BODY: Activity did not occur on this shift Patient is not dressing in public clothing ARTICLES SCORE Total number of steps: 0 DRESSING - LOWER BODY - SCORE: 0-UNK TOILETING: Activity did not occur on this shift TOILETING - SCORE: 0-UNK BLADDER MANAGEMENT: Activity did not occur on this shift BLADDER MANAGEMENT - SCORE: 7-IND BOWEL MANAGEMENT: Activity did not occur on this shift BOWEL MANAGEMENT - SCORE: 7-IND TRANSFERS: BED, CHAIR, WHEELCHAIR: TRANSFERS: BED, CHAIR, WHEELCHAIR - STEP 1: Does the patient require assistance of a person or device, or need extra time with bed, chair, or whe elchair transfers? Yes. TRANSFERS: BED, CHAIR, WHEELCHAIR - STEP 2: Does the patient require the assistance of a helper? Yes. TRANSFERS: BED, CHAIR, WHEELCHAIR - STEP 3: How much assistance does the patient require from the helper? Steadying/guiding assistance TRANSFERS: BED, CHAIR, WHEELCHAIR - SCORE: 4-MIN TRANSFERS: TOILET: TRANSFERS: TOILET - STEP 1: Does the patient require the assistance of a person or device, or need extra time with toilet transfe rs? Yes. TRANSFERS: TOILET - STEP 2: Does the patient require the assistance of a helper? No. Patient only requires an assistive device bryan ch as a grab bar or special seat, OR s/he takes more than reasonable time to perform toilet transfers , OR there is a safety concern when s/he performs toilet transfers. TRANSFERS: TOILET - SCORE: 6-ANA ROSA TRANSFERS: SHOWER: Activity did not occur on this shift TRANSFERS: SHOWER - SCORE: 0-UNK TRANSFERS: TUB: Activity did not occur on this shift TRANSFERS: TUB - SCORE: 0-UNK LOCOMOTION: WALK: LOCOMOTION: WALK - STEP 1: Does the patient need help from a person or device, or need extra time to walk 150 feet? Yes. LOCOMOTION: WALK - STEP 2: How much assistance does the patient require to walk a minimum of 150 feet? Only incidental help such as contact guarding or steadying LOCOMOTION: WALK - SCORE: 4-MIN LOCOMOTION: WHEELCHAIR: LOCOMOTION: WHEELCHAIR - STEP 1: Does the patient need help to go 150 feet in a wheelchair? Yes. LOCOMOTION: WHEELCHAIR - STEP 2: How much assistance does the patient need from the helper? Only supervision, cuing, or coaxing LOCOMOTION: WHEELCHAIR - SCORE: 5-SUP LOCOMOTION: STAIRS: LOCOMOTION: STAIRS - STEP 1: Does the patient need help to go up and down 12 to 14 stairs? Yes. LOCOMOTION: STAIRS - STEP 2: How much assistance does the patient need from the helper to go a minimum of 12 to 14 stairs? More th an incidental help LOCOMOTION: STAIRS - SCORE: 3-MOD COMPREHENSION: COMPREHENSION - SCORE: 0-UNK EXPRESSION EXPRESSION - SCORE: 0-UNK SOCIAL INTERACTION: SOCIAL INTERACTION - SCORE: 0-UNK PROBLEM SOLVING: PROBLEM SOLVING - SCORE: 0-UNK MEMORY: MEMORY - SCORE: 0-UNK SIGNATURE PANEL: The following modified sections: Transfers: Bed, Chair, Wheelchair - Score, Transfers: Toilet - Score , Locomotion: Walk - Score, Locomotion: Wheelchair - Score, Locomotion: Stairs - Score were [[place] mod[place]] signed by Sabrina Cole PTA on TueJun 23 2018 14:28:29 GMT-0600 (Central Standard Time)
--- NOTE | 2018-06-23 15:24 | FAST ---
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 David Sosa M.D. ADMISSION DIAGNOSIS: - Amputation of Limb 05 - Unilateral Lower Limb Above the Knee (AK) (05.3) Peripheral vascular disease. EATING: Activity did not occur on this shift EATING - SCORE: 0-UNK GROOMING: Wash, rinse, and dry face Wash, rinse, and dry hands GROOMING - STEP 1: Does the patient require the assistance of a person or device, or need extra time when grooming? No. GROOMING - SCORE: 7-IND BATHING: Abdomen Buttocks Chest Left arm Left lower leg and foot Left upper leg Perineal area Right arm Right lower leg and foot Right upper leg BATHING - STEP 1: Does the patient require the assistance of a person or device, or need extra time when bathing? Yes. BATHING - STEP 2: Does the patient require the assistance of a helper? Yes. BATHING - STEP 3: How much assistance does the patient require from the helper? Only supervision, cuing, coaxing, instr uctions, encouragement BATHING - SCORE: 5-SUP DRESSING - UPPER BODY: T-shirt/pullover shirt (four steps) ARTICLES SCORE Total number of steps: 4 DRESSING - UPPER BODY - STEP 1: Does the patient require help from a person or device, or need extra time when dressing above the [address]la [address]? No. DRESSING - UPPER BODY - SCORE: 7-IND DRESSING - LOWER BODY: Elastic waist pants (three steps) Sock - Left foot (one step) Tied or buckled shoe - Left foot (two steps) Underwear (three steps) ARTICLES SCORE Total number of steps: 9 DRESSING - LOWER BODY - STEP 1: Does the patient require help from a person or device, or need extra time when dressing below the carla st? Yes. DRESSING - LOWER BODY - STEP 2: Does the patient require the assistance of a helper? Yes. DRESSING - LOWER BODY - STEP 3: Does the helper touch the patient while dressing? No. DRESSING - LOWER BODY - SCORE: 5-SUP TOILETING: Activity did not occur on this shift TOILETING - SCORE: 0-UNK BLADDER MANAGEMENT: Activity did not occur on this shift BLADDER MANAGEMENT - SCORE: 7-IND BOWEL MANAGEMENT: Activity did not occur on this shift BOWEL MANAGEMENT - SCORE: 7-IND TRANSFERS: BED, CHAIR, WHEELCHAIR: Activity did not occur on this shift TRANSFERS: BED, CHAIR, WHEELCHAIR - SCORE: 0-UNK TRANSFERS: TOILET: Activity did not occur on this shift TRANSFERS: TOILET - SCORE: 0-UNK TRANSFERS: SHOWER: Activity did not occur on this shift TRANSFERS: SHOWER - SCORE: 0-UNK TRANSFERS: TUB: TRANSFERS: TUB - STEP 1: Does the patient require the assistance of a person or device, or need extra time with tub transfers? Yes. TRANSFERS: TUB - STEP 2: Does the patient require the assistance of a helper? Yes. TRANSFERS: TUB - STEP 3: How much assistance does the patient require from the helper? Only supervision, cuing, coaxing, or he lp to set out transfer equipment or to lock brakes and/or lift foot rests TRANSFERS: TUB - SCORE: 5-SUP LOCOMOTION: WALK: Activity did not occur on this shift LOCOMOTION: WALK - SCORE: 0-UNK LOCOMOTION: WHEELCHAIR: Activity did not occur on this shift LOCOMOTION: WHEELCHAIR - SCORE: 0-UNK LOCOMOTION: STAIRS: Activity did not occur on this shift LOCOMOTION: STAIRS - SCORE: 0-UNK COMPREHENSION: COMPREHENSION - SCORE: 0-UNK EXPRESSION EXPRESSION - SCORE: 0-UNK SOCIAL INTERACTION: SOCIAL INTERACTION - SCORE: 0-UNK PROBLEM SOLVING: PROBLEM SOLVING - SCORE: 0-UNK MEMORY: MEMORY - SCORE: 0-UNK SIGNATURE PANEL: The following modified sections: Eating - Score, Grooming - Score, Bathing - Score, Dressing - Upper Body - Score, Dressing - Lower Body - Score, Toileting - Score, Transfers: Bed, Chair, Wheelchair - S core, Transfers: Toilet - Score, Transfers: Shower - Score, Transfers: Tub - Score, Comprehension - S core, Expression - Score, Social Interaction - Score, Problem Solving - Score, Memory - Score were [e lectronically] signed by ELMER Hernadez on TueJun 23 2018 15:22:34 T-0600 ([place] [facility])
[2018-06-23] MEDS: MELATONIN 3 MG TABLET PO PRN (19:30)
[2018-06-23] MEDS: DOCUSATE NA/SENNA CONC 1 TAB PO SCH (19:37)
[2018-06-24] MEDS: PROMOD 30 ML DOSE PO SCH ×2 (08:00→20:00)
[2018-06-24] MEDS: JUVEN PACKET PO SCH ×2 (08:00→20:00)
[2018-06-24] MEDS: AMLODIPINE 5 MG TAB PO SCH ×2 (08:00→20:28)
[2018-06-24] MEDS: POLYETHYL GLY 3350 17 GM/DOSE PO SCH (08:00)
[2018-06-24] MEDS: PANTOPRAZOLE 40MG TABLET PO SCH (08:24)
[2018-06-24] MEDS: GABAPENTIN 300 MG CAP PO SCH ×2 (08:24→20:29)
[2018-06-24] MEDS: CLOPIDOGREL 75 MG TABLET PO SCH (08:24)
[2018-06-24] MEDS: ASPIRIN 81 MG CHEWABLE TABLET PO SCH (08:24)
[2018-06-24] MEDS: DULOXETINE 20 MG CAP PO SCH (08:24)
--- NOTE | 2018-06-24 14:35 | FAST ---
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 David Sosa M.D. ADMISSION DIAGNOSIS: - Amputation of Limb 05 - Unilateral Lower Limb Above the Knee (AK) (05.3) Peripheral vascular disease. EATING: EATING - STEP 1: Does the patient require the assistance of a person or device, or need extra time when eating? Yes. EATING - STEP 2: Does the patient require the assistance of a helper? No, patient only requires an assistive device, O R s/he takes more than reasonable time to eat, OR there is a safety concern, OR s/he requires modifie d food consistency EATING - SCORE: 6-ANA ROSA GROOMING: Comb/brush hair Oral care Wash, rinse, and dry face Wash, rinse, and dry hands GROOMING - STEP 1: Does the patient require the assistance of a person or device, or need extra time when grooming? Yes. GROOMING - STEP 2: Does the patient require the assistance of a helper? No. The patient only requires an assistive devic e, OR takes more than reasonable time to groom, OR there is a concern for safety as the patient groom s GROOMING - SCORE: 6-ANA ROSA BATHING: Activity did not occur on this shift BATHING - SCORE: 0-UNK DRESSING - UPPER BODY: T-shirt/pullover shirt (four steps) ARTICLES SCORE Total number of steps: 4 DRESSING - UPPER BODY - STEP 1: Does the patient require help from a person or device, or need extra time when dressing above the carla st? Yes. DRESSING - UPPER BODY - STEP 2: Does the patient require the assistance of a helper? No. Patient only requires an assistive device, s uch as a button hook, velcro, or booth supervisor. OR s/he takes more than reasonable time as s/he dresses the upper body. OR there is a concern for safety when s/he dresses the upper body DRESSING - UPPER BODY - SCORE: 6-ANA ROSA DRESSING - LOWER BODY: Elastic waist pants (three steps) Sock - Left foot (one step) Tied or buckled shoe - Left foot (two steps) ARTICLES SCORE Total number of steps: 6 DRESSING - LOWER BODY - STEP 1: Does the patient require help from a person or device, or need extra time when dressing below the carla st? Yes. DRESSING - LOWER BODY - STEP 2: Does the patient require the assistance of a helper? No. Patient requires an assistive device such as a booth supervisor. OR s/he takes more than reasonable time as s/he dresses the lower body, OR there is a con cern for safety when s/he dresses the lower body DRESSING - LOWER BODY - SCORE: 6-ANA ROSA TOILETING: TOILETING - STEP 1: Does the patient require the assistance of a person or device, or need extra time with toileting? Yes . TOILETING - STEP 2: Does the patient require the assistance of a helper? Yes. TOILETING - STEP 3: How much assistance does the patient require from the helper? Only supervision TOILETING - SCORE: 5-SUP BLADDER MANAGEMENT: BLADDER MANAGEMENT - STEP 1: Does the patient control the bladder completely and intentionally without equipment or devices or med ications, and is always continent? No. BLADDER MANAGEMENT - STEP 2: Does the patient require the assistance of a helper? Yes. BLADDER MANAGEMENT - STEP 3: How much assistance does the patient require from the helper? Only set-up of equipment - such as plac ing it within reach of the patient or emptying a device - to maintain either satisfactory voiding pat tern or managing an external device, such as an absorbent pad, ileal device, or catheter BLADDER MANAGEMENT - SCORE: 5-SUP BLADDER MANAGEMENT - FREQUENCY OF ACCIDENTS: BLADDER MANAGEMENT(FA) - STEP 1: How many accidents has the patient had during the current shift? 0 BOWEL MANAGEMENT: Activity did not occur on this shift BOWEL MANAGEMENT - SCORE: 7-IND BOWEL MANAGEMENT - FREQUENCY OF ACCIDENTS: BOWEL MANAGEMENT(FA) - STEP 1: How many accidents has the patient had during the current shift? 0 TRANSFERS: BED, CHAIR, WHEELCHAIR: TRANSFERS: BED, CHAIR, WHEELCHAIR - STEP 1: Does the patient require assistance of a person or device, or need extra time with bed, chair, or whe elchair transfers? Yes. TRANSFERS: BED, CHAIR, WHEELCHAIR - STEP 2: Does the patient require the assistance of a helper? Yes. TRANSFERS: BED, CHAIR, WHEELCHAIR - STEP 3: How much assistance does the patient require from the helper? Only supervision TRANSFERS: BED, CHAIR, WHEELCHAIR - SCORE: 5-SUP TRANSFERS: TOILET: TRANSFERS: TOILET - STEP 1: Does the patient require the assistance of a person or device, or need extra time with toilet transfe rs? Yes. TRANSFERS: TOILET - STEP 2: Does the patient require the assistance of a helper? Yes. TRANSFERS: TOILET - STEP 3: How much assistance does the patient require from the helper? Patient performs half or more of the tr ansferring tasks TRANSFERS: TOILET - STEP 4: Does the patient need only incidental help such as contact guard or steadying during toilet transfer? Yes. TRANSFERS: TOILET - SCORE: 4-MIN TRANSFERS: SHOWER: Activity did not occur on this shift TRANSFERS: SHOWER - SCORE: 0-UNK TRANSFERS: TUB: Activity did not occur on this shift TRANSFERS: TUB - SCORE: 0-UNK LOCOMOTION: WALK: Activity did not occur on this shift LOCOMOTION: WALK - SCORE: 0-UNK LOCOMOTION: WHEELCHAIR: LOCOMOTION: WHEELCHAIR - STEP 1: Does the patient need help to go 150 feet in a wheelchair? No. LOCOMOTION: WHEELCHAIR - SCORE: 6-ANA ROSA COMPREHENSION: COMPREHENSION: TYPE: Both COMPREHENSION - STEP 1: Does the patient require help from a person or device, or need extra time to understand complex and a bstract ideas (such as current events, finances, discharge planning, medical issues, relationships, e tc)? No. COMPREHENSION - STEP 2: Does the patient need extra time, require an assistive device (such as glasses for visual comprehensi on or a hearing aid for auditory comprehension) or does s/he have mild difficulty understanding compl ex and abstract information? Yes. COMPREHENSION - SCORE: 6-ANA ROSA EXPRESSION EXPRESSION: TYPE: Both EXPRESSION - STEP 1: Does the patient require help from a person or device, or need extra time expressing complex and abst ract ideas (such as current events, finances, discharge planning, medical issues, relationships, etc) ? No. EXPRESSION - STEP 2: Does the patient need extra time, require an assistive device (such as augmentive communication syste m or a communication board), OR does s/he have mild difficulty expressing complex and abstract ideas (including mild dysarthria or mild word-find problems)? Yes. EXPRESSION - SCORE: 6-ANA ROSA SOCIAL INTERACTION: SOCIAL INTERACTION - STEP 1: Does the patient require a helper to interact with others in social and therapeutic situations? No. SOCIAL INTERACTION - STEP 2: Does the patient need extra time in social situations, OR does s/he interact with staff, other patien ts, and family members ONLY in structured environments, OR does s/he require medication for social in teraction? Yes, patient needs extra time SOCIAL INTERACTION - SCORE: 6-ANA ROSA PROBLEM SOLVING: PROBLEM SOLVING - STEP 1: Does the patient need help from a person or device, or need extra time to solve complex problems such as managing a checking account or confronting interpersonal problems? No. PROBLEM SOLVING - STEP 2: Does the patient require extra time to make decisions or solve problems, OR does s/he have slight dif ficulty reading, initiating, or self-correcting in unfamiliar situations? Yes, patient needs extra ti me. PROBLEM SOLVING - SCORE: 6-ANA ROSA MEMORY: MEMORY - STEP 1: Does the patient need help from a person or device, or need extra time to remember frequently encount ered people, daily routines, and executing requests? No. MEMORY - STEP 2: Does the patient have slight difficulty recognizing frequently encountered people, daily routines, or executing requests without the need for repetition or using self-initiated or environmental cues to remember? Yes. MEMORY - SCORE: 6-ANA ROSA SIGNATURE PANEL: The following modified sections: Eating - Score, Grooming - Score, Bathing - Score, Dressing - Upper Body - Score, Dressing - Lower Body - Score, Toileting - Score, Bladder Management - Score, Bowel Man agement - Score, Transfers: Bed, Chair, Wheelchair - Score, Transfers: Toilet - Score, Transfers: Iraida wer - Score, Transfers: Tub - Score, Locomotion: Walk - Score, Locomotion: Wheelchair - Score, Compre hension - Score, Expression - Score, Social Interaction - Score, Problem Solving - Score, Memory - Sc ore were [electronically] signed by Juanita Quintero C.N.A. on TueJun 24 2018 14:34:07 GMT-0600 ([facility] Standard Time)
[2018-06-24] MEDS: HYDROCODONE/APAP 7.5/325 MG TAB PO PRN (20:28)
[2018-06-24] MEDS: DOCUSATE NA/SENNA CONC 1 TAB PO SCH (20:29)
[2018-06-24] MEDS: MELATONIN 3 MG TABLET PO PRN (20:29)
--- NOTE | 2018-06-25 03:05 | FAST ---
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 David Sosa M.D. ADMISSION DIAGNOSIS: - Amputation of Limb 05 - Unilateral Lower Limb Above the Knee (AK) (05.3) Peripheral vascular disease. EATING: Activity did not occur on this shift EATING - SCORE: 0-UNK GROOMING: Activity did not occur on this shift GROOMING - SCORE: 0-UNK BATHING: Activity did not occur on this shift BATHING - SCORE: 0-UNK DRESSING - UPPER BODY: Patient is not dressing in public clothing ARTICLES SCORE Total number of steps: 0 DRESSING - UPPER BODY - SCORE: 0-UNK DRESSING - LOWER BODY: Patient is not dressing in public clothing ARTICLES SCORE Total number of steps: 0 DRESSING - LOWER BODY - SCORE: 0-UNK TOILETING: TOILETING - STEP 1: Does the patient require the assistance of a person or device, or need extra time with toileting? Yes . TOILETING - STEP 2: Does the patient require the assistance of a helper? Yes. TOILETING - STEP 3: How much assistance does the patient require from the helper? Only supervision TOILETING - SCORE: 5-SUP BLADDER MANAGEMENT: BLADDER MANAGEMENT - STEP 1: Does the patient control the bladder completely and intentionally without equipment or devices or med ications, and is always continent? No. BLADDER MANAGEMENT - STEP 2: Does the patient require the assistance of a helper? No, patient only requires extra time BLADDER MANAGEMENT - SCORE: 6-ANA ROSA BOWEL MANAGEMENT: Activity did not occur on this shift BOWEL MANAGEMENT - SCORE: 7-IND TRANSFERS: BED, CHAIR, WHEELCHAIR: TRANSFERS: BED, CHAIR, WHEELCHAIR - STEP 1: Does the patient require assistance of a person or device, or need extra time with bed, chair, or whe elchair transfers? Yes. TRANSFERS: BED, CHAIR, WHEELCHAIR - STEP 2: Does the patient require the assistance of a helper? Yes. TRANSFERS: BED, CHAIR, WHEELCHAIR - STEP 3: How much assistance does the patient require from the helper? Steadying/guiding assistance TRANSFERS: BED, CHAIR, WHEELCHAIR - SCORE: 4-MIN TRANSFERS: TOILET: Activity did not occur on this shift TRANSFERS: TOILET - SCORE: 0-UNK TRANSFERS: SHOWER: Activity did not occur on this shift TRANSFERS: SHOWER - SCORE: 0-UNK TRANSFERS: TUB: Activity did not occur on this shift TRANSFERS: TUB - SCORE: 0-UNK LOCOMOTION: WALK: Activity did not occur on this shift LOCOMOTION: WALK - SCORE: 0-UNK LOCOMOTION: WHEELCHAIR: Activity did not occur on this shift LOCOMOTION: WHEELCHAIR - SCORE: 0-UNK COMPREHENSION: COMPREHENSION: TYPE: Both COMPREHENSION - STEP 1: Does the patient require help from a person or device, or need extra time to understand complex and a bstract ideas (such as current events, finances, discharge planning, medical issues, relationships, e tc)? No. COMPREHENSION - STEP 2: Does the patient need extra time, require an assistive device (such as glasses for visual comprehensi on or a hearing aid for auditory comprehension) or does s/he have mild difficulty understanding compl ex and abstract information? Yes. COMPREHENSION - SCORE: 6-ANA ROSA EXPRESSION EXPRESSION: TYPE: Both EXPRESSION - STEP 1: Does the patient require help from a person or device, or need extra time expressing complex and abst ract ideas (such as current events, finances, discharge planning, medical issues, relationships, etc) ? No. EXPRESSION - STEP 2: Does the patient need extra time, require an assistive device (such as augmentive communication syste m or a communication board), OR does s/he have mild difficulty expressing complex and abstract ideas (including mild dysarthria or mild word-find problems)? No. EXPRESSION - SCORE: 7-IND SOCIAL INTERACTION: SOCIAL INTERACTION - STEP 1: Does the patient require a helper to interact with others in social and therapeutic situations? No. SOCIAL INTERACTION - STEP 2: Does the patient need extra time in social situations, OR does s/he interact with staff, other patien ts, and family members ONLY in structured environments, OR does s/he require medication for social in teraction? Yes, patient requires medication for social interaction SOCIAL INTERACTION - SCORE: 6-ANA ROSA PROBLEM SOLVING: PROBLEM SOLVING - STEP 1: Does the patient need help from a person or device, or need extra time to solve complex problems such as managing a checking account or confronting interpersonal problems? No. PROBLEM SOLVING - STEP 2: Does the patient require extra time to make decisions or solve problems, OR does s/he have slight dif ficulty reading, initiating, or self-correcting in unfamiliar situations? Yes, patient needs extra ti me. PROBLEM SOLVING - SCORE: 6-ANA ROSA MEMORY: MEMORY - STEP 1: Does the patient need help from a person or device, or need extra time to remember frequently encount ered people, daily routines, and executing requests? No. MEMORY - STEP 2: Does the patient have slight difficulty recognizing frequently encountered people, daily routines, or executing requests without the need for repetition or using self-initiated or environmental cues to remember? No. MEMORY - SCORE: 7-IND SIGNATURE PANEL: The following modified sections: Eating - Score, Grooming - Score, Dressing - Upper Body - Score, Allen ssing - Lower Body - Score, Toileting - Score, Bladder Management - Score, Bowel Management - Score, Transfers: Bed, Chair, Wheelchair - Score, Transfers: Toilet - Score, Transfers: Shower - Score, [place] sfers: Tub - Score, Locomotion: Walk - Score, Locomotion: Wheelchair - Score, Comprehension - Score, Expression - Score, Social Interaction - Score, Problem Solving - Score, Memory - Score were [electro nically] signed by Peg Hoffman CNA on TueJun 25 2018 03:03:30 GMT-0600 (Central Standard Time)
[2018-06-25] MEDS: JUVEN PACKET PO SCH ×2 (08:00→20:00)
[2018-06-25] MEDS: AMLODIPINE 5 MG TAB PO SCH ×2 (08:00→20:09)
[2018-06-25] MEDS: POLYETHYL GLY 3350 17 GM/DOSE PO SCH (08:00)
[2018-06-25] MEDS: PROMOD 30 ML DOSE PO SCH ×2 (08:00→20:00)
[2018-06-25] MEDS: CLOPIDOGREL 75 MG TABLET PO SCH (08:05)
[2018-06-25] MEDS: DULOXETINE 20 MG CAP PO SCH (08:05)
[2018-06-25] MEDS: GABAPENTIN 300 MG CAP PO SCH ×2 (08:05→20:09)
[2018-06-25] MEDS: PANTOPRAZOLE 40MG TABLET PO SCH (08:06)
[2018-06-25] MEDS: ASPIRIN 81 MG CHEWABLE TABLET PO SCH (08:06)
--- NOTE | 2018-06-25 14:15 | FAST ---
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 David Sosa M.D. ADMISSION DIAGNOSIS: - Amputation of Limb 05 - Unilateral Lower Limb Above the Knee (AK) (05.3) Peripheral vascular disease. EATING: EATING - STEP 1: Does the patient require the assistance of a person or device, or need extra time when eating? Yes. EATING - STEP 2: Does the patient require the assistance of a helper? No, patient only requires an assistive device, O R s/he takes more than reasonable time to eat, OR there is a safety concern, OR s/he requires modifie d food consistency EATING - SCORE: 6-ANA ROSA GROOMING: Comb/brush hair Oral care Wash, rinse, and dry face GROOMING - STEP 1: Does the patient require the assistance of a person or device, or need extra time when grooming? Yes. GROOMING - STEP 2: Does the patient require the assistance of a helper? No. The patient only requires an assistive devic e, OR takes more than reasonable time to groom, OR there is a concern for safety as the patient groom s GROOMING - SCORE: 6-ANA ROSA BATHING: Activity did not occur on this shift BATHING - SCORE: 0-UNK DRESSING - UPPER BODY: Button down shirt or blouse - NOT tucked in (four steps) T-shirt/pullover shirt (four steps) ARTICLES SCORE Total number of steps: 8 DRESSING - UPPER BODY - STEP 1: Does the patient require help from a person or device, or need extra time when dressing above the carla st? Yes. DRESSING - UPPER BODY - STEP 2: Does the patient require the assistance of a helper? No. Patient only requires an assistive device, s uch as a button hook, velcro, or cost analyst. OR s/he takes more than reasonable time as s/he dresses the upper body. OR there is a concern for safety when s/he dresses the upper body DRESSING - UPPER BODY - SCORE: 6-ANA ROSA DRESSING - LOWER BODY: Elastic waist pants (three steps) ARTICLES SCORE Total number of steps: 3 DRESSING - LOWER BODY - STEP 1: Does the patient require help from a person or device, or need extra time when dressing below the carla st? No. DRESSING - LOWER BODY - SCORE: 7-IND TOILETING: TOILETING - STEP 1: Does the patient require the assistance of a person or device, or need extra time with toileting? Yes . TOILETING - STEP 2: Does the patient require the assistance of a helper? No. TOILETING - SCORE: 6-ANA ROSA BLADDER MANAGEMENT: BLADDER MANAGEMENT - STEP 1: Does the patient control the bladder completely and intentionally without equipment or devices or med ications, and is always continent? No. BLADDER MANAGEMENT - STEP 2: Does the patient require the assistance of a helper? No, patient requires and independently uses an a ssistive device, such as a urinal, bedpan, bedside commode, catheter, absorbent pad, or collecting de vice BLADDER MANAGEMENT - SCORE: 6-ANA ROSA BLADDER MANAGEMENT - FREQUENCY OF ACCIDENTS: BLADDER MANAGEMENT(FA) - STEP 1: How many accidents has the patient had during the current shift? 0 BOWEL MANAGEMENT: Activity did not occur on this shift BOWEL MANAGEMENT - SCORE: 7-IND BOWEL MANAGEMENT - FREQUENCY OF ACCIDENTS: BOWEL MANAGEMENT(FA) - STEP 1: How many accidents has the patient had during the current shift? 0 TRANSFERS: BED, CHAIR, WHEELCHAIR: TRANSFERS: BED, CHAIR, WHEELCHAIR - STEP 1: Does the patient require assistance of a person or device, or need extra time with bed, chair, or whe elchair transfers? Yes. TRANSFERS: BED, CHAIR, WHEELCHAIR - STEP 2: Does the patient require the assistance of a helper? Yes. TRANSFERS: BED, CHAIR, WHEELCHAIR - STEP 3: How much assistance does the patient require from the helper? Only supervision TRANSFERS: BED, CHAIR, WHEELCHAIR - SCORE: 5-SUP TRANSFERS: TOILET: TRANSFERS: TOILET - STEP 1: Does the patient require the assistance of a person or device, or need extra time with toilet transfe rs? Yes. TRANSFERS: TOILET - STEP 2: Does the patient require the assistance of a helper? Yes. TRANSFERS: TOILET - STEP 3: How much assistance does the patient require from the helper? Only supervision, cuing, coaxing, OR he lp to set out transfer equipment or to lock brakes and/or lift foot rests TRANSFERS: TOILET - SCORE: 5-SUP TRANSFERS: SHOWER: Activity did not occur on this shift TRANSFERS: SHOWER - SCORE: 0-UNK TRANSFERS: TUB: Activity did not occur on this shift TRANSFERS: TUB - SCORE: 0-UNK LOCOMOTION: WALK: Activity did not occur on this shift LOCOMOTION: WALK - SCORE: 0-UNK LOCOMOTION: WHEELCHAIR: Activity did not occur on this shift LOCOMOTION: WHEELCHAIR - SCORE: 0-UNK COMPREHENSION: COMPREHENSION: TYPE: Both COMPREHENSION - STEP 1: Does the patient require help from a person or device, or need extra time to understand complex and a bstract ideas (such as current events, finances, discharge planning, medical issues, relationships, e tc)? No. COMPREHENSION - STEP 2: Does the patient need extra time, require an assistive device (such as glasses for visual comprehensi on or a hearing aid for auditory comprehension) or does s/he have mild difficulty understanding compl ex and abstract information? Yes. COMPREHENSION - SCORE: 6-ANA ROSA EXPRESSION EXPRESSION: TYPE: Both EXPRESSION - STEP 1: Does the patient require help from a person or device, or need extra time expressing complex and abst ract ideas (such as current events, finances, discharge planning, medical issues, relationships, etc) ? No. EXPRESSION - STEP 2: Does the patient need extra time, require an assistive device (such as augmentive communication syste m or a communication board), OR does s/he have mild difficulty expressing complex and abstract ideas (including mild dysarthria or mild word-find problems)? Yes. EXPRESSION - SCORE: 6-ANA ROSA SOCIAL INTERACTION: SOCIAL INTERACTION - STEP 1: Does the patient require a helper to interact with others in social and therapeutic situations? No. SOCIAL INTERACTION - STEP 2: Does the patient need extra time in social situations, OR does s/he interact with staff, other patien ts, and family members ONLY in structured environments, OR does s/he require medication for social in teraction? Yes, patient needs extra time SOCIAL INTERACTION - SCORE: 6-ANA ROSA PROBLEM SOLVING: PROBLEM SOLVING - STEP 1: Does the patient need help from a person or device, or need extra time to solve complex problems such as managing a checking account or confronting interpersonal problems? No. PROBLEM SOLVING - STEP 2: Does the patient require extra time to make decisions or solve problems, OR does s/he have slight dif ficulty reading, initiating, or self-correcting in unfamiliar situations? Yes, patient needs extra ti me. PROBLEM SOLVING - SCORE: 6-ANA ROSA MEMORY: MEMORY - STEP 1: Does the patient need help from a person or device, or need extra time to remember frequently encount ered people, daily routines, and executing requests? No. MEMORY - STEP 2: Does the patient have slight difficulty recognizing frequently encountered people, daily routines, or executing requests without the need for repetition or using self-initiated or environmental cues to remember? Yes. MEMORY - SCORE: 6-ANA ROSA SIGNATURE PANEL: The following modified sections: Eating - Score, Grooming - Score, Bathing - Score, Dressing - Upper Body - Score, Dressing - Lower Body - Score, Toileting - Score, Bladder Management - Score, Bowel Man agement - Score, Transfers: Bed, Chair, Wheelchair - Score, Transfers: Toilet - Score, Transfers: Iraida wer - Score, Transfers: Tub - Score, Locomotion: Walk - Score, Locomotion: Wheelchair - Score, Compre hension - Score, Expression - Score, Social Interaction - Score, Problem Solving - Score, Memory - Sc ore were [electronically] signed by Juanita Quintero C.N.A. on TueJun 25 2018 14:14:35 GMT-0600 ([facility] Standard Time)
[2018-06-25] MEDS: MELATONIN 3 MG TABLET PO PRN (20:09)
[2018-06-25] MEDS: HYDROCODONE/APAP 7.5/325 MG TAB PO PRN (20:09)
[2018-06-25] MEDS: DOCUSATE NA/SENNA CONC 1 TAB PO SCH (20:10)
[2018-06-26] MEDS: JUVEN PACKET PO SCH ×2 (08:00→19:47)
[2018-06-26] MEDS: PROMOD 30 ML DOSE PO SCH ×2 (08:00→19:47)
[2018-06-26] MEDS: POLYETHYL GLY 3350 17 GM/DOSE PO SCH (08:00)
[2018-06-26] MEDS: ASPIRIN 81 MG CHEWABLE TABLET PO SCH (08:44)
[2018-06-26] MEDS: HYDROCODONE/APAP 7.5/325 MG TAB PO PRN ×2 (08:44→19:46)
[2018-06-26] MEDS: GABAPENTIN 300 MG CAP PO SCH ×2 (08:44→19:45)
[2018-06-26] MEDS: DULOXETINE 20 MG CAP PO SCH (08:44)
[2018-06-26] MEDS: AMLODIPINE 5 MG TAB PO SCH ×2 (08:45→19:45)
[2018-06-26] MEDS: PANTOPRAZOLE 40MG TABLET PO SCH (08:45)
[2018-06-26] MEDS: CLOPIDOGREL 75 MG TABLET PO SCH (08:45)
--- NOTE | 2018-06-26 15:09 | FAST ---
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 David Sosa M.D. ADMISSION DIAGNOSIS: - Amputation of Limb 05 - Unilateral Lower Limb Above the Knee (AK) (05.3) Peripheral vascular disease. EATING: EATING - STEP 1: Does the patient require the assistance of a person or device, or need extra time when eating? Yes. EATING - STEP 2: Does the patient require the assistance of a helper? Yes. EATING - STEP 3: Does the patient perform half or more of the eating tasks? Yes. EATING - STEP 4: Does the patient need only supervision, cuing, coaxing OR help to apply an orthosis OR help to cut fo od, open containers, pour liquids, or butter bread? Yes. EATING - SCORE: 5-SUP GROOMING: Activity did not occur on this shift GROOMING - SCORE: 0-UNK BATHING: Activity did not occur on this shift BATHING - SCORE: 0-UNK DRESSING - UPPER BODY: Activity did not occur on this shift ARTICLES SCORE Total number of steps: 0 DRESSING - UPPER BODY - SCORE: 0-UNK DRESSING - LOWER BODY: Activity did not occur on this shift ARTICLES SCORE Total number of steps: 0 DRESSING - LOWER BODY - SCORE: 0-UNK TOILETING: TOILETING - STEP 1: Does the patient require the assistance of a person or device, or need extra time with toileting? Yes . TOILETING - STEP 2: Does the patient require the assistance of a helper? Yes. TOILETING - STEP 3: How much assistance does the patient require from the helper? Hands-on assistance from the helper TOILETING - STEP 4: Of the 3 tasks: 1) Adjusting clothing prior to use, 2) Cleansing of perineal area, 3) Adjusting clot boyd after use; How many tasks does the patient perform WITHOUT assistance of the helper? Three tasks with steadying assistance from the helper TOILETING - SCORE: 4-MIN BLADDER MANAGEMENT: BLADDER MANAGEMENT - STEP 1: Does the patient control the bladder completely and intentionally without equipment or devices or med ications, and is always continent? No. BLADDER MANAGEMENT - STEP 2: Does the patient require the assistance of a helper? No, patient requires and independently uses an a ssistive device, such as a urinal, bedpan, bedside commode, catheter, absorbent pad, or collecting de vice BLADDER MANAGEMENT - SCORE: 6-ANA ROSA BOWEL MANAGEMENT: Activity did not occur on this shift BOWEL MANAGEMENT - SCORE: 7-IND TRANSFERS: BED, CHAIR, WHEELCHAIR: TRANSFERS: BED, CHAIR, WHEELCHAIR - STEP 1: Does the patient require assistance of a person or device, or need extra time with bed, chair, or whe elchair transfers? Yes. TRANSFERS: BED, CHAIR, WHEELCHAIR - STEP 2: Does the patient require the assistance of a helper? Yes. TRANSFERS: BED, CHAIR, WHEELCHAIR - STEP 3: How much assistance does the patient require from the helper? Steadying/guiding assistance TRANSFERS: BED, CHAIR, WHEELCHAIR - SCORE: 4-MIN TRANSFERS: TOILET: TRANSFERS: TOILET - STEP 1: Does the patient require the assistance of a person or device, or need extra time with toilet transfe rs? Yes. TRANSFERS: TOILET - STEP 2: Does the patient require the assistance of a helper? Yes. TRANSFERS: TOILET - STEP 3: How much assistance does the patient require from the helper? Patient performs half or more of the tr ansferring tasks TRANSFERS: TOILET - STEP 4: Does the patient need only incidental help such as contact guard or steadying during toilet transfer? Yes. TRANSFERS: TOILET - SCORE: 4-MIN TRANSFERS: SHOWER: Activity did not occur on this shift TRANSFERS: SHOWER - SCORE: 0-UNK TRANSFERS: TUB: Activity did not occur on this shift TRANSFERS: TUB - SCORE: 0-UNK LOCOMOTION: WALK: Activity did not occur on this shift LOCOMOTION: WALK - SCORE: 0-UNK LOCOMOTION: WHEELCHAIR: Activity did not occur on this shift LOCOMOTION: WHEELCHAIR - SCORE: 0-UNK COMPREHENSION: COMPREHENSION: TYPE: Both COMPREHENSION - STEP 1: Does the patient require help from a person or device, or need extra time to understand complex and a bstract ideas (such as current events, finances, discharge planning, medical issues, relationships, e tc)? No. COMPREHENSION - STEP 2: Does the patient need extra time, require an assistive device (such as glasses for visual comprehensi on or a hearing aid for auditory comprehension) or does s/he have mild difficulty understanding compl ex and abstract information? Yes. COMPREHENSION - SCORE: 6-ANA ROSA EXPRESSION EXPRESSION: TYPE: Both EXPRESSION - STEP 1: Does the patient require help from a person or device, or need extra time expressing complex and abst ract ideas (such as current events, finances, discharge planning, medical issues, relationships, etc) ? No. EXPRESSION - STEP 2: Does the patient need extra time, require an assistive device (such as augmentive communication syste m or a communication board), OR does s/he have mild difficulty expressing complex and abstract ideas (including mild dysarthria or mild word-find problems)? Yes. EXPRESSION - SCORE: 6-ANA ROSA SOCIAL INTERACTION: SOCIAL INTERACTION - STEP 1: Does the patient require a helper to interact with others in social and therapeutic situations? No. SOCIAL INTERACTION - STEP 2: Does the patient need extra time in social situations, OR does s/he interact with staff, other patien ts, and family members ONLY in structured environments, OR does s/he require medication for social in teraction? Yes, patient needs extra time SOCIAL INTERACTION - SCORE: 6-ANA ROSA PROBLEM SOLVING: PROBLEM SOLVING - STEP 1: Does the patient need help from a person or device, or need extra time to solve complex problems such as managing a checking account or confronting interpersonal problems? No. PROBLEM SOLVING - STEP 2: Does the patient require extra time to make decisions or solve problems, OR does s/he have slight dif ficulty reading, initiating, or self-correcting in unfamiliar situations? Yes, patient needs extra ti me. PROBLEM SOLVING - SCORE: 6-ANA ROSA MEMORY: MEMORY - STEP 1: Does the patient need help from a person or device, or need extra time to remember frequently encount ered people, daily routines, and executing requests? No. MEMORY - STEP 2: Does the patient have slight difficulty recognizing frequently encountered people, daily routines, or executing requests without the need for repetition or using self-initiated or environmental cues to remember? Yes. MEMORY - SCORE: 6-ANA ROSA SIGNATURE PANEL: The following modified sections: Eating - Score, Grooming - Score, Bathing - Score, Dressing - Upper Body - Score, Dressing - Lower Body - Score, Toileting - Score, Bladder Management - Score, Bowel Man agement - Score, Transfers: Bed, Chair, Wheelchair - Score, Transfers: Toilet - Score, Transfers: Iraida wer - Score, Transfers: Tub - Score, Locomotion: Walk - Score, Locomotion: Wheelchair - Score, Compre hension - Score, Expression - Score, Social Interaction - Score, Problem Solving - Score, Memory - Sc ore were [electronically] signed by Elfego Aguilar on TueJun 26 2018 15:08:27 GMT-0600 (Central Standard Time)
[2018-06-26] MEDS: MELATONIN 3 MG TABLET PO PRN (19:46)
[2018-06-26] MEDS: DOCUSATE NA/SENNA CONC 1 TAB PO SCH (19:47)
--- NOTE | 2018-06-26 21:31 | R.PN ---
ENCOUNTER DATE AND TIME: 06/26/2018 21:26 (SOLE LAYER HAND) NAME GARY RANDALL DATE OF : 1955 DATE OF ADMISSION: 06/15/2018 17:00 (SOLE LAYER HAND) Peripheral vascular diseaseCHIEF COMPLAINT: Debility secondary to PVD. SUBJECTIVE: Pt denied any Shortness of Breath. Pt denied any depression. VITAL SIGNS Temperature: 97.3 F SBP/DBP: 144/88 Pulse: 88 Resp: 16 Ambulated 420' with standby assistance using a rolling walker. Propelled wheelchair 250' with modified independence. MEDICATION ALLERGIES: TRAMADOL ENVIRONMENTAL ALLERGIES: - Substance Allergies None Known - Other Allergies None Known CONSULT: Perform Consult Certified Prosthetic for prosthesis construction NURSING: - Shower allowing shower - Skin care per protocol PRECAUTIONS: - Weight Bearing Precaution NWB right LE ACTIVITIES OOB only with supervision THERAPIES: - Orthotics/Prosthetics Prosthetic Evaluation. - Occupational Therapy Evaluate and Treat. - Physical Therapy Evaluate and Treat. PHYSICAL EXAM - Gen Alert and awake Lying in bed No apparent distress Oriented to: person, time, and place - Skin Right AKA bandage in place with good hemostasis. Normacephalic - Eyes No abnormalities - ENMT No abnormalities - Neck No abnormalities - CVS RRR - Chest No abnormalities - Resp Clear to auscultation - Abd +bowel sounds - GI nondistended Deferred - No abnormalities - Ext Right AKA stump with good hemostasis. - Neuro No focal deficits - Psych No abnormalities ASSESSMENT: Pt. is a 62 yo Right-handed white male.On 06/05/2018 he was admitted to [facility] and underwent emergency surgery for Peripheral vascular disease (Amputation of Limb(Unilater al Lower Limb Above the Knee (AK))) by Arthur Oconnor.Pre-morbidly, Pt. was independent/mod-I in Trans fers Control, Communication, Social Cognition, Self-Care, Sphincter Control, and Locomotion; and he h ad good Sphincter Control.Currently, he has deficits of Safety Awareness, Transfers Control, Communic ation, Social Cognition, Balance, Endurance, Locomotion, and Self-Care.Pt. is now referred to [facility] for acute in-patient rehabilitation in order to maximize patient's functio nal independence in activities of daily living, strength, ROM, and mobility.Admission did not happen within 48 hour window due to infection in Right skin graft. Medical staff at [facility] re-evaluated a nd patient is now ready for DC. Patients physical and medical status otherwise has not changed and h e is still in need of aggressive inpatient therapy.- Rehab Goal Patient has realistic goal of being discharged at assistance level 6-Ganga to reside at Home with Pt self. MDM/PLAN: - Physical Therapy Gait dysfunction - to improve, our physical therapists will perform initial evaluation of pt's statu s upon admission and devise an individualized program for Gait Training, and Wheel Chair mobility Inability to transfer - to improve, our physical therapists will perform initial evaluation of pt's status upon admission and devise an individualized program for Bed mobility Need for home safety evaluation - to improve, our physical therapists will perform initial evaluatio n of pt's status upon admission and devise an individualized program for Home Evaluation Need in caregiver upon discharge - to improve, our physical therapists will perform initial evaluati on of pt's status upon admission and devise an individualized program for Caregiver Training New precaution - to improve, our physical therapists will perform initial evaluation of pt's status upon admission and devise an individualized program for Patient precaution education Poor balance - to improve, our physical therapists will perform initial evaluation of pt's status up on admission and devise an individualized program for Balance Training Poor endurance - to improve, our physical therapists will perform initial evaluation of pt's status upon admission and devise an individualized program for Endurance Training Weakness - to improve, our physical therapists will perform initial evaluation of pt's status upon a dmission and devise an individualized program for Aquatic Therapy, Neuromuscular Reeducation, and Str engthening Achieving independence - to improve, our physical therapists will perform initial evaluation of pt's status upon admission and devise an individualized program for Community Reintegration Activities - Occupational Therapy ADL deficits - to improve, our occupation therapists will perform initial evaluation of pt's status upon admission and devise an individualized program for Bathing, Bed mobility, Community Reintegratio n, Cooking, Dressing, Eating, Fine Motor Skills, Grooming, Homemaking, Kitchen Mobility, Laundry, Pat ient Education, Safety Awareness, Splinting - Positioning, Transfers(Toilet, Tub, Shower), and Wheel Chair Management Cognitive deficits - to improve, our occupation therapists will perform initial evaluation of pt's s tatus upon admission and devise an individualized program for Cognition - orientation Need for direct care specialist - to improve, our occupation therapists will perform initial evaluation of pt's status upon admission and devise an individualized program for Caregiver Training Weakness - to improve, our occupation therapists will perform initial evaluation of pt's status upon admission and devise an individualized program for Aquatic Therapy, Balance, Endurance, UE ROM, and UE strengthening - Diet Type Continue Regular - Diet - Liquid Texture Continue Regular - Tube Feed Continue N/A - Weight Bearing Precaution NWB right LE - Skin care per protocol - N/A Perform Consult Certified Prosthetic for prosthesis construction - Diet - Solid Texture Continue Regular - Shower allowing shower FUNCTIONAL STATUS: UPDATED AT WEEKLY TEAM CONFERENCE - Bladder Same accident frequency: 7-Ind - No accidents in the past 7 days - Bowel Same accident frequency: 7-Ind - No accidents in the past 7 days - Walking Same score based on distance walked: 1(<=50ft) FUNCTIONAL STATUS: - Self-Care A. Eating Ind B. Grooming sup C. Bathing modA D. Dressing - Upper sup E. Dressing - Lower maxA F. Toileting modA - Sphincter Control G: Bladder control Ind H: Bowel control Ind - Transfers Control I. Bed/Chair/Wheelchair Iwona J. Toilet Iwona K. Tub/Shower Iwona - Locomotion L. Walk/Wheelchair (B) Dep M. Stairs ADNO - Communication N. Comprehension (B) sup O. Expression (B) sup - Social Cognition P. Social Interaction sup Q. Problem Solving sup R. Memory sup - Endurance Fair - Balance Poor - Safety Awareness Fair CURRENT FUNC. DEFICITS: Safety Awareness, Transfers Control, Communication, Social Cognition, Balance, Endurance, Locomotion, and Self-Care SIGNATURE PANEL: (SOLE LAYER HAND)
--- NOTE | 2018-06-27 01:58 | FAST ---
SHIFT START DATE/TIME: 06/26/2018 19:00 (CIVIL ESTIMATOR) SHIFT END DATE/TIME: 06/27/2018 07:00 (CIVIL ESTIMATOR) NAME GARY RANDALL DATE OF : 1955 DATE OF ADMISSION: 06/15/2018 17:00 (CIVIL ESTIMATOR) PHONE: AGE: 62 SSN# [id number] GENDER: Male ENCOUNTER PHYSICIAN: Dr. David Sosa M.D. ADMISSION DIAGNOSIS: - Amputation of Limb 05 - Unilateral Lower Limb Above the Knee (AK) (05.3) Peripheral vascular disease. EATING: Activity did not occur on this shift EATING - SCORE: 0-UNK GROOMING: Activity did not occur on this shift GROOMING - SCORE: 0-UNK BATHING: Activity did not occur on this shift BATHING - SCORE: 0-UNK DRESSING - UPPER BODY: Activity did not occur on this shift ARTICLES SCORE Total number of steps: 0 DRESSING - UPPER BODY - SCORE: 0-UNK DRESSING - LOWER BODY: Activity did not occur on this shift ARTICLES SCORE Total number of steps: 0 DRESSING - LOWER BODY - SCORE: 0-UNK TOILETING: Activity did not occur on this shift TOILETING - SCORE: 0-UNK BLADDER MANAGEMENT: BLADDER MANAGEMENT - STEP 1: Does the patient control the bladder completely and intentionally without equipment or devices or med ications, and is always continent? Yes. BLADDER MANAGEMENT - SCORE: 7-IND BOWEL MANAGEMENT: Activity did not occur on this shift BOWEL MANAGEMENT - SCORE: 7-IND TRANSFERS: BED, CHAIR, WHEELCHAIR: TRANSFERS: BED, CHAIR, WHEELCHAIR - STEP 1: Does the patient require assistance of a person or device, or need extra time with bed, chair, or whe elchair transfers? Yes. TRANSFERS: BED, CHAIR, WHEELCHAIR - STEP 2: Does the patient require the assistance of a helper? Yes. TRANSFERS: BED, CHAIR, WHEELCHAIR - STEP 3: How much assistance does the patient require from the helper? Steadying/guiding assistance TRANSFERS: BED, CHAIR, WHEELCHAIR - SCORE: 4-MIN TRANSFERS: TOILET: Activity did not occur on this shift TRANSFERS: TOILET - SCORE: 0-UNK TRANSFERS: SHOWER: Activity did not occur on this shift TRANSFERS: SHOWER - SCORE: 0-UNK TRANSFERS: TUB: Activity did not occur on this shift TRANSFERS: TUB - SCORE: 0-UNK LOCOMOTION: WALK: Activity did not occur on this shift LOCOMOTION: WALK - SCORE: 0-UNK LOCOMOTION: WHEELCHAIR: Activity did not occur on this shift LOCOMOTION: WHEELCHAIR - SCORE: 0-UNK COMPREHENSION: COMPREHENSION: TYPE: Both COMPREHENSION - STEP 1: Does the patient require help from a person or device, or need extra time to understand complex and a bstract ideas (such as current events, finances, discharge planning, medical issues, relationships, e tc)? No. COMPREHENSION - STEP 2: Does the patient need extra time, require an assistive device (such as glasses for visual comprehensi on or a hearing aid for auditory comprehension) or does s/he have mild difficulty understanding compl ex and abstract information? Yes. COMPREHENSION - SCORE: 6-ANA ROSA EXPRESSION EXPRESSION: TYPE: Both EXPRESSION - STEP 1: Does the patient require help from a person or device, or need extra time expressing complex and abst ract ideas (such as current events, finances, discharge planning, medical issues, relationships, etc) ? No. EXPRESSION - STEP 2: Does the patient need extra time, require an assistive device (such as augmentive communication syste m or a communication board), OR does s/he have mild difficulty expressing complex and abstract ideas (including mild dysarthria or mild word-find problems)? No. EXPRESSION - SCORE: 7-IND SOCIAL INTERACTION: SOCIAL INTERACTION - STEP 1: Does the patient require a helper to interact with others in social and therapeutic situations? No. SOCIAL INTERACTION - STEP 2: Does the patient need extra time in social situations, OR does s/he interact with staff, other patien ts, and family members ONLY in structured environments, OR does s/he require medication for social in teraction? Yes, patient requires medication for social interaction SOCIAL INTERACTION - SCORE: 6-ANA ROSA PROBLEM SOLVING: PROBLEM SOLVING - STEP 1: Does the patient need help from a person or device, or need extra time to solve complex problems such as managing a checking account or confronting interpersonal problems? No. PROBLEM SOLVING - STEP 2: Does the patient require extra time to make decisions or solve problems, OR does s/he have slight dif ficulty reading, initiating, or self-correcting in unfamiliar situations? No. PROBLEM SOLVING - SCORE: 7-IND MEMORY: MEMORY - STEP 1: Does the patient need help from a person or device, or need extra time to remember frequently encount ered people, daily routines, and executing requests? No. MEMORY - STEP 2: Does the patient have slight difficulty recognizing frequently encountered people, daily routines, or executing requests without the need for repetition or using self-initiated or environmental cues to remember? No. MEMORY - SCORE: 7-IND SIGNATURE PANEL: The following modified sections: Eating - Score, Grooming - Score, Bathing - Score, Dressing - Upper Body - Score, Dressing - Lower Body - Score, Toileting - Score, Bladder Management - Score, Bowel Man agement - Score, Transfers: Bed, Chair, Wheelchair - Score, Transfers: Toilet - Score, Transfers: Iraida wer - Score, Transfers: Tub - Score, Locomotion: Walk - Score, Locomotion: Wheelchair - Score, Compre hension - Score, Expression - Score, Social Interaction - Score, Problem Solving - Score, Memory - Sc ore were [electronically] signed by Mandy Banegas CNA on TueJun 27 2018 01:57:05 T-0600 ([facility])
[2018-06-27] MEDS: PANTOPRAZOLE 40MG TABLET PO SCH (07:34)
[2018-06-27] MEDS: JUVEN PACKET PO SCH ×2 (08:00→19:52)
[2018-06-27] MEDS: POLYETHYL GLY 3350 17 GM/DOSE PO SCH (08:00)
[2018-06-27] MEDS: PROMOD 30 ML DOSE PO SCH ×2 (08:00→19:23)
[2018-06-27] MEDS: AMLODIPINE 5 MG TAB PO SCH ×2 (08:28→19:21)
[2018-06-27] MEDS: ASPIRIN 81 MG CHEWABLE TABLET PO SCH (08:28)
[2018-06-27] MEDS: DULOXETINE 20 MG CAP PO SCH (08:28)
[2018-06-27] MEDS: GABAPENTIN 300 MG CAP PO SCH ×2 (08:28→19:21)
[2018-06-27] MEDS: CLOPIDOGREL 75 MG TABLET PO SCH (08:28)
--- NOTE | 2018-06-27 10:17 | FAST ---
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 David Sosa M.D. ADMISSION DIAGNOSIS: - Amputation of Limb 05 - Unilateral Lower Limb Above the Knee (AK) (05.3) Peripheral vascular disease. EATING: EATING - STEP 1: Does the patient require the assistance of a person or device, or need extra time when eating? Yes. EATING - STEP 2: Does the patient require the assistance of a helper? No, patient only requires an assistive device, O R s/he takes more than reasonable time to eat, OR there is a safety concern, OR s/he requires modifie d food consistency EATING - SCORE: 6-ANA ROSA GROOMING: Comb/brush hair Oral care GROOMING - STEP 1: Does the patient require the assistance of a person or device, or need extra time when grooming? No. GROOMING - SCORE: 7-IND BATHING: Activity did not occur on this shift BATHING - SCORE: 0-UNK DRESSING - UPPER BODY: T-shirt/pullover shirt (four steps) ARTICLES SCORE Total number of steps: 4 DRESSING - UPPER BODY - STEP 1: Does the patient require help from a person or device, or need extra time when dressing above the carla st? Yes. DRESSING - UPPER BODY - STEP 2: Does the patient require the assistance of a helper? No. Patient only requires an assistive device, s uch as a button hook, velcro, or critical care nurse specialist. OR s/he takes more than reasonable time as s/he dresses the upper body. OR there is a concern for safety when s/he dresses the upper body DRESSING - UPPER BODY - SCORE: 6-ANA ROSA DRESSING - LOWER BODY: ARTICLES SCORE Total number of steps: 4 DRESSING - LOWER BODY - STEP 1: Does the patient require help from a person or device, or need extra time when dressing below the carla st? Yes. DRESSING - LOWER BODY - STEP 2: Does the patient require the assistance of a helper? Yes. DRESSING - LOWER BODY - STEP 3: Does the helper touch the patient while dressing? No. DRESSING - LOWER BODY - SCORE: 5-SUP TOILETING: TOILETING - STEP 1: Does the patient require the assistance of a person or device, or need extra time with toileting? Yes . TOILETING - STEP 2: Does the patient require the assistance of a helper? Yes. TOILETING - STEP 3: How much assistance does the patient require from the helper? Only supervision TOILETING - SCORE: 5-SUP BLADDER MANAGEMENT: BLADDER MANAGEMENT - STEP 1: Does the patient control the bladder completely and intentionally without equipment or devices or med ications, and is always continent? No. BLADDER MANAGEMENT - STEP 2: Does the patient require the assistance of a helper? No, patient requires and independently uses an a ssistive device, such as a urinal, bedpan, bedside commode, catheter, absorbent pad, or collecting de vice BLADDER MANAGEMENT - SCORE: 6-ANA ROSA BOWEL MANAGEMENT: Activity did not occur on this shift BOWEL MANAGEMENT - SCORE: 7-IND TRANSFERS: BED, CHAIR, WHEELCHAIR: TRANSFERS: BED, CHAIR, WHEELCHAIR - STEP 1: Does the patient require assistance of a person or device, or need extra time with bed, chair, or whe elchair transfers? Yes. TRANSFERS: BED, CHAIR, WHEELCHAIR - STEP 2: Does the patient require the assistance of a helper? Yes. TRANSFERS: BED, CHAIR, WHEELCHAIR - STEP 3: How much assistance does the patient require from the helper? Steadying/guiding assistance TRANSFERS: BED, CHAIR, WHEELCHAIR - SCORE: 4-MIN TRANSFERS: TOILET: TRANSFERS: TOILET - STEP 1: Does the patient require the assistance of a person or device, or need extra time with toilet transfe rs? Yes. TRANSFERS: TOILET - STEP 2: Does the patient require the assistance of a helper? Yes. TRANSFERS: TOILET - STEP 3: How much assistance does the patient require from the helper? Patient performs half or more of the tr ansferring tasks TRANSFERS: TOILET - STEP 4: Does the patient need only incidental help such as contact guard or steadying during toilet transfer? Yes. TRANSFERS: TOILET - SCORE: 4-MIN TRANSFERS: SHOWER: Activity did not occur on this shift TRANSFERS: SHOWER - SCORE: 0-UNK TRANSFERS: TUB: Activity did not occur on this shift TRANSFERS: TUB - SCORE: 0-UNK LOCOMOTION: WALK: Activity did not occur on this shift LOCOMOTION: WALK - SCORE: 0-UNK LOCOMOTION: WHEELCHAIR: Activity did not occur on this shift LOCOMOTION: WHEELCHAIR - SCORE: 0-UNK COMPREHENSION: COMPREHENSION: TYPE: Both COMPREHENSION - STEP 1: Does the patient require help from a person or device, or need extra time to understand complex and a bstract ideas (such as current events, finances, discharge planning, medical issues, relationships, e tc)? No. COMPREHENSION - STEP 2: Does the patient need extra time, require an assistive device (such as glasses for visual comprehensi on or a hearing aid for auditory comprehension) or does s/he have mild difficulty understanding compl ex and abstract information? No. COMPREHENSION - SCORE: 7-IND EXPRESSION EXPRESSION: TYPE: Both EXPRESSION - STEP 1: Does the patient require help from a person or device, or need extra time expressing complex and abst ract ideas (such as current events, finances, discharge planning, medical issues, relationships, etc) ? No. EXPRESSION - STEP 2: Does the patient need extra time, require an assistive device (such as augmentive communication syste m or a communication board), OR does s/he have mild difficulty expressing complex and abstract ideas (including mild dysarthria or mild word-find problems)? No. EXPRESSION - SCORE: 7-IND SOCIAL INTERACTION: SOCIAL INTERACTION - STEP 1: Does the patient require a helper to interact with others in social and therapeutic situations? No. SOCIAL INTERACTION - STEP 2: Does the patient need extra time in social situations, OR does s/he interact with staff, other patien ts, and family members ONLY in structured environments, OR does s/he require medication for social in teraction? No. SOCIAL INTERACTION - SCORE: 7-IND PROBLEM SOLVING: PROBLEM SOLVING - STEP 1: Does the patient need help from a person or device, or need extra time to solve complex problems such as managing a checking account or confronting interpersonal problems? No. PROBLEM SOLVING - STEP 2: Does the patient require extra time to make decisions or solve problems, OR does s/he have slight dif ficulty reading, initiating, or self-correcting in unfamiliar situations? Yes, patient needs extra ti me. PROBLEM SOLVING - SCORE: 6-ANA ROSA MEMORY: MEMORY - STEP 1: Does the patient need help from a person or device, or need extra time to remember frequently encount ered people, daily routines, and executing requests? No. MEMORY - STEP 2: Does the patient have slight difficulty recognizing frequently encountered people, daily routines, or executing requests without the need for repetition or using self-initiated or environmental cues to remember? Yes. MEMORY - SCORE: 6-ANA ROSA SIGNATURE PANEL: The following modified sections: Eating - Score, Grooming - Score, Bathing - Score, Dressing - Upper Body - Score, Dressing - Lower Body - Score, Toileting - Score, Bladder Management - Score, Bowel Man agement - Score, Transfers: Bed, Chair, Wheelchair - Score, Transfers: Toilet - Score, Transfers: Iraida wer - Score, Transfers: Tub - Score, Locomotion: Walk - Score, Locomotion: Wheelchair - Score, Compre hension - Score, Expression - Score, Social Interaction - Score, Problem Solving - Score, Memory - Sc ore were [electronically] signed by Elfego Aguilar on TueJun 27 2018 10:16:21 GMT-0600 (Central Standard Time)
--- NOTE | 2018-06-27 15:12 | FAST ---
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 David Sosa M.D. ADMISSION DIAGNOSIS: - Amputation of Limb 05 - Unilateral Lower Limb Above the Knee (AK) (05.3) Peripheral vascular disease. EATING: Activity did not occur on this shift EATING - SCORE: 0-UNK GROOMING: Activity did not occur on this shift GROOMING - SCORE: 0-UNK BATHING: Activity did not occur on this shift BATHING - SCORE: 0-UNK DRESSING - UPPER BODY: Activity did not occur on this shift Patient is not dressing in public clothing ARTICLES SCORE Total number of steps: 0 DRESSING - UPPER BODY - SCORE: 0-UNK DRESSING - LOWER BODY: Activity did not occur on this shift Patient is not dressing in public clothing ARTICLES SCORE Total number of steps: 0 DRESSING - LOWER BODY - SCORE: 0-UNK TOILETING: Activity did not occur on this shift TOILETING - SCORE: 0-UNK BLADDER MANAGEMENT: Activity did not occur on this shift BLADDER MANAGEMENT - SCORE: 7-IND BOWEL MANAGEMENT: Activity did not occur on this shift BOWEL MANAGEMENT - SCORE: 7-IND TRANSFERS: BED, CHAIR, WHEELCHAIR: TRANSFERS: BED, CHAIR, WHEELCHAIR - STEP 1: Does the patient require assistance of a person or device, or need extra time with bed, chair, or whe elchair transfers? Yes. TRANSFERS: BED, CHAIR, WHEELCHAIR - STEP 2: Does the patient require the assistance of a helper? Yes. TRANSFERS: BED, CHAIR, WHEELCHAIR - STEP 3: How much assistance does the patient require from the helper? Only supervision TRANSFERS: BED, CHAIR, WHEELCHAIR - SCORE: 5-SUP TRANSFERS: TOILET: Activity did not occur on this shift TRANSFERS: TOILET - SCORE: 0-UNK TRANSFERS: SHOWER: Activity did not occur on this shift TRANSFERS: SHOWER - SCORE: 0-UNK TRANSFERS: TUB: Activity did not occur on this shift TRANSFERS: TUB - SCORE: 0-UNK LOCOMOTION: WALK: LOCOMOTION: WALK - STEP 1: Does the patient need help from a person or device, or need extra time to walk 150 feet? Yes. LOCOMOTION: WALK - STEP 2: How much assistance does the patient require to walk a minimum of 150 feet? Only supervision, cuing, or coaxing LOCOMOTION: WALK - SCORE: 5-SUP LOCOMOTION: WHEELCHAIR: LOCOMOTION: WHEELCHAIR - STEP 1: Does the patient need help to go 150 feet in a wheelchair? No. LOCOMOTION: WHEELCHAIR - SCORE: 6-ANA ROSA LOCOMOTION: STAIRS: Activity did not occur on this shift LOCOMOTION: STAIRS - SCORE: 0-UNK COMPREHENSION: COMPREHENSION - SCORE: 0-UNK EXPRESSION EXPRESSION - SCORE: 0-UNK SOCIAL INTERACTION: SOCIAL INTERACTION - SCORE: 0-UNK PROBLEM SOLVING: PROBLEM SOLVING - SCORE: 0-UNK MEMORY: MEMORY - SCORE: 0-UNK SIGNATURE PANEL: The following modified sections: Transfers: Bed, Chair, Wheelchair - Score, Transfers: Toilet - Score , Locomotion: Walk - Score, Locomotion: Wheelchair - Score, Locomotion: Stairs - Score were [electron [email or web address]] signed by Macario Arvizu PTA on TueJun 27 2018 15:11:43 GMT-0600 (Central Standard Time)
--- NOTE | 2018-06-27 15:49 | FAST ---
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 David Sosa M.D. ADMISSION DIAGNOSIS: - Amputation of Limb 05 - Unilateral Lower Limb Above the Knee (AK) (05.3) Peripheral vascular disease. EATING: Activity did not occur on this shift EATING - SCORE: 0-UNK GROOMING: Activity did not occur on this shift GROOMING - SCORE: 0-UNK BATHING: Activity did not occur on this shift BATHING - SCORE: 0-UNK DRESSING - UPPER BODY: Activity did not occur on this shift Patient is not dressing in public clothing ARTICLES SCORE Total number of steps: 0 DRESSING - UPPER BODY - SCORE: 0-UNK DRESSING - LOWER BODY: Activity did not occur on this shift Patient is not dressing in public clothing ARTICLES SCORE Total number of steps: 0 DRESSING - LOWER BODY - SCORE: 0-UNK TOILETING: Activity did not occur on this shift TOILETING - SCORE: 0-UNK BLADDER MANAGEMENT: Activity did not occur on this shift BLADDER MANAGEMENT - SCORE: 7-IND BOWEL MANAGEMENT: Activity did not occur on this shift BOWEL MANAGEMENT - SCORE: 7-IND TRANSFERS: BED, CHAIR, WHEELCHAIR: TRANSFERS: BED, CHAIR, WHEELCHAIR - STEP 1: Does the patient require assistance of a person or device, or need extra time with bed, chair, or whe elchair transfers? Yes. TRANSFERS: BED, CHAIR, WHEELCHAIR - STEP 2: Does the patient require the assistance of a helper? No. Patient only requires an assistive device fo r bed, chair, wheelchair transfers such as a sliding board, grab bar, or brace, OR s/he takes more th an reasonable time, OR there is a safety concern when s/he performs the transfers TRANSFERS: BED, CHAIR, WHEELCHAIR - SCORE: 6-ANA ROSA TRANSFERS: TOILET: Activity did not occur on this shift TRANSFERS: TOILET - SCORE: 0-UNK TRANSFERS: SHOWER: Activity did not occur on this shift TRANSFERS: SHOWER - SCORE: 0-UNK TRANSFERS: TUB: Activity did not occur on this shift TRANSFERS: TUB - SCORE: 0-UNK LOCOMOTION: WALK: LOCOMOTION: WALK - STEP 1: Does the patient need help from a person or device, or need extra time to walk 150 feet? Yes. LOCOMOTION: WALK - STEP 2: How much assistance does the patient require to walk a minimum of 150 feet? Only supervision, cuing, or coaxing LOCOMOTION: WALK - SCORE: 5-SUP LOCOMOTION: WHEELCHAIR: LOCOMOTION: WHEELCHAIR - STEP 1: Does the patient need help to go 150 feet in a wheelchair? No. LOCOMOTION: WHEELCHAIR - SCORE: 6-ANA ROSA LOCOMOTION: STAIRS: Activity did not occur on this shift LOCOMOTION: STAIRS - SCORE: 0-UNK COMPREHENSION: COMPREHENSION - SCORE: 0-UNK EXPRESSION EXPRESSION - SCORE: 0-UNK SOCIAL INTERACTION: SOCIAL INTERACTION - SCORE: 0-UNK PROBLEM SOLVING: PROBLEM SOLVING - SCORE: 0-UNK MEMORY: MEMORY - SCORE: 0-UNK SIGNATURE PANEL: The following modified sections: Transfers: Bed, Chair, Wheelchair - Score, Transfers: Toilet - Score , Locomotion: Walk - Score, Locomotion: Wheelchair - Score, Locomotion: Stairs - Score were [l[place] modi] signed by Macario Arvizu PTA on TueJun 27 2018 15:49:07 GMT-0600 (Central Standard Time)
--- NOTE | 2018-06-27 18:05 | R.PN ---
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 SUBJECTIVE: Pt denied any Shortness of Breath. Pt denied any depression. Ambulated 450' with standby assistance using a rolling walker. Propelled wheelchair 500' with modified independence. VITAL SIGNS Temperature: 97.3 F SBP/DBP: 128/74 Pulse: 70 Resp: 16 MEDICATION ALLERGIES: TRAMADOL ENVIRONMENTAL ALLERGIES: - Substance Allergies None Known - Other Allergies None Known CONSULT: Perform Consult Certified Prosthetic for prosthesis construction NURSING: - Shower allowing shower - Skin care per protocol PRECAUTIONS: - Weight Bearing Precaution NWB right LE ACTIVITIES OOB only with supervision THERAPIES: - Orthotics/Prosthetics Prosthetic Evaluation. - Occupational Therapy Evaluate and Treat. - Physical Therapy Evaluate and Treat. PHYSICAL EXAM - Gen Alert and awake Lying in bed No apparent distress Oriented to: person, time, and place - Skin Right AKA bandage in place with good hemostasis. Normacephalic - Eyes No abnormalities - ENMT No abnormalities - Neck No abnormalities - CVS RRR - Chest No abnormalities - Resp Clear to auscultation - Abd +bowel sounds - GI nondistended Deferred - No abnormalities - Ext Right AKA stump with good hemostasis. - Neuro No focal deficits - Psych No abnormalities ASSESSMENT: Pt. is a 62 yo Right-handed white male.On 06/05/[address] [facility] and underwent emergency surgery for Peripheral vascular disease (Amputation of Limb(Unilater al Lower Limb Above the Knee (AK))) by Arthur Oconnor.Pre-morbidly, Pt. was independent/mod-I in Trans fers Control, Communication, Social Cognition, Self-Care, Sphincter Control, and Locomotion; and he h ad good Sphincter Control.Currently, he has deficits of Safety Awareness, Transfers Control, Communic ation, Social Cognition, Balance, Endurance, Locomotion, and Self-Care.Pt. is now referred to [facility] for acute in-patient rehabilitation in order to maximize patient's functio nal independence in activities of daily living, strength, ROM, and mobility.Admission did not happen within 48 hour window due to infection in Right skin graft. Medical staff at [facility] re-evaluated a nd patient is now ready for DC. Patients physical and medical status otherwise has not changed and h e is still in need of aggressive inpatient therapy.- Rehab Goal Patient has realistic goal of being discharged at assistance level 6-[place]anga to reside at Home with Pt self. MDM/PLAN: - Physical Therapy Gait dysfunction - to improve, our physical therapists will perform initial evaluation of pt's statu s upon admission and devise an individualized program for Gait Training, and Wheel Chair mobility Inability to transfer - to improve, our physical therapists will perform initial evaluation of pt's status upon admission and devise an individualized program for Bed mobility Need for home safety evaluation - to improve, our physical therapists will perform initial evaluatio n of pt's status upon admission and devise an individualized program for Home Evaluation Need in caregiver upon discharge - to improve, our physical therapists will perform initial evaluati on of pt's status upon admission and devise an individualized program for Caregiver Training New precaution - to improve, our physical therapists will perform initial evaluation of pt's status upon admission and devise an individualized program for Patient precaution education Poor balance - to improve, our physical therapists will perform initial evaluation of pt's status up on admission and devise an individualized program for Balance Training Poor endurance - to improve, our physical therapists will perform initial evaluation of pt's status upon admission and devise an individualized program for Endurance Training Weakness - to improve, our physical therapists will perform initial evaluation of pt's status upon a dmission and devise an individualized program for Aquatic Therapy, Neuromuscular Reeducation, and Str engthening Achieving independence - to improve, our physical therapists will perform initial evaluation of pt's status upon admission and devise an individualized program for Community Reintegration Activities - Occupational Therapy ADL deficits - to improve, our occupation therapists will perform initial evaluation of pt's status upon admission and devise an individualized program for Bathing, Bed mobility, Community Reintegratio n, Cooking, Dressing, Eating, Fine Motor Skills, Grooming, Homemaking, Kitchen Mobility, Laundry, Pat ient Education, Safety Awareness, Splinting - Positioning, Transfers(Toilet, Tub, Shower), and Wheel Chair Management Cognitive deficits - to improve, our occupation therapists will perform initial evaluation of pt's s tatus upon admission and devise an individualized program for Cognition - orientation Need for resident care associate - to improve, our occupation therapists will perform initial evaluation of pt's status upon admission and devise an individualized program for Caregiver Training Weakness - to improve, our occupation therapists will perform initial evaluation of pt's status upon admission and devise an individualized program for Aquatic Therapy, Balance, Endurance, UE ROM, and UE strengthening - Diet Type Continue Regular - Diet - Liquid Texture Continue Regular - Tube Feed Continue N/A - Weight Bearing Precaution NWB right LE - Skin care per protocol - N/A Perform Consult Certified Prosthetic for prosthesis construction - Diet - Solid Texture Continue Regular - Shower allowing shower FUNCTIONAL STATUS: UPDATED AT WEEKLY TEAM CONFERENCE - Bladder Same accident frequency: 7-Ind - No accidents in the past 7 days - Bowel Same accident frequency: 7-Ind - No accidents in the past 7 days - Walking Same score based on distance walked: 1(<=50ft) FUNCTIONAL STATUS: - Self-Care A. Eating Ind B. Grooming sup C. Bathing modA D. Dressing - Upper sup E. Dressing - Lower maxA F. Toileting modA - Sphincter Control G: Bladder control Ind H: Bowel control Ind - Transfers Control I. Bed/Chair/Wheelchair Iwona J. Toilet Iwona K. Tub/Shower Iwona - Locomotion L. Walk/Wheelchair (B) Dep M. Stairs ADNO - Communication N. Comprehension (B) sup O. Expression (B) sup - Social Cognition P. Social Interaction sup Q. Problem Solving sup R. Memory sup - Endurance Fair - Balance Poor - Safety Awareness Fair CURRENT FUNC. DEFICITS: Safety Awareness, Transfers Control, Communication, Social Cognition, Balance, Endurance, Locomotion, and Self-Care SIGNATURE PANEL: (PSYCHOLOGY TECHNICIAN)
[2018-06-27] MEDS: HYDROCODONE/APAP 7.5/325 MG TAB PO PRN (19:21)
[2018-06-27] MEDS: MELATONIN 3 MG TABLET PO PRN (19:21)
[2018-06-27] MEDS: DOCUSATE NA/SENNA CONC 1 TAB PO SCH (19:23)
--- NOTE | 2018-06-28 01:38 | FAST ---
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 David Sosa M.D. ADMISSION DIAGNOSIS: - Amputation of Limb 05 - Unilateral Lower Limb Above the Knee (AK) (05.3) Peripheral vascular disease. EATING: Activity did not occur on this shift EATING - SCORE: 0-UNK GROOMING: Activity did not occur on this shift GROOMING - SCORE: 0-UNK BATHING: Activity did not occur on this shift BATHING - SCORE: 0-UNK DRESSING - UPPER BODY: Activity did not occur on this shift ARTICLES SCORE Total number of steps: 0 DRESSING - UPPER BODY - SCORE: 0-UNK DRESSING - LOWER BODY: Activity did not occur on this shift ARTICLES SCORE Total number of steps: 0 DRESSING - LOWER BODY - SCORE: 0-UNK TOILETING: TOILETING - STEP 1: Does the patient require the assistance of a person or device, or need extra time with toileting? Yes . TOILETING - STEP 2: Does the patient require the assistance of a helper? Yes. TOILETING - STEP 3: How much assistance does the patient require from the helper? Only supervision TOILETING - SCORE: 5-SUP BLADDER MANAGEMENT: Activity did not occur on this shift BLADDER MANAGEMENT - SCORE: 7-IND BOWEL MANAGEMENT: Activity did not occur on this shift BOWEL MANAGEMENT - SCORE: 7-IND TRANSFERS: BED, CHAIR, WHEELCHAIR: TRANSFERS: BED, CHAIR, WHEELCHAIR - STEP 1: Does the patient require assistance of a person or device, or need extra time with bed, chair, or whe elchair transfers? Yes. TRANSFERS: BED, CHAIR, WHEELCHAIR - STEP 2: Does the patient require the assistance of a helper? Yes. TRANSFERS: BED, CHAIR, WHEELCHAIR - STEP 3: How much assistance does the patient require from the helper? Only supervision TRANSFERS: BED, CHAIR, WHEELCHAIR - SCORE: 5-SUP TRANSFERS: TOILET: TRANSFERS: TOILET - STEP 1: Does the patient require the assistance of a person or device, or need extra time with toilet transfe rs? Yes. TRANSFERS: TOILET - STEP 2: Does the patient require the assistance of a helper? Yes. TRANSFERS: TOILET - STEP 3: How much assistance does the patient require from the helper? Only supervision, cuing, coaxing, OR he lp to set out transfer equipment or to lock brakes and/or lift foot rests TRANSFERS: TOILET - SCORE: 5-SUP TRANSFERS: SHOWER: Activity did not occur on this shift TRANSFERS: SHOWER - SCORE: 0-UNK TRANSFERS: TUB: Activity did not occur on this shift TRANSFERS: TUB - SCORE: 0-UNK LOCOMOTION: WALK: Activity did not occur on this shift LOCOMOTION: WALK - SCORE: 0-UNK LOCOMOTION: WHEELCHAIR: Activity did not occur on this shift LOCOMOTION: WHEELCHAIR - SCORE: 0-UNK COMPREHENSION: COMPREHENSION: TYPE: Both COMPREHENSION - STEP 1: Does the patient require help from a person or device, or need extra time to understand complex and a bstract ideas (such as current events, finances, discharge planning, medical issues, relationships, e tc)? No. COMPREHENSION - STEP 2: Does the patient need extra time, require an assistive device (such as glasses for visual comprehensi on or a hearing aid for auditory comprehension) or does s/he have mild difficulty understanding compl ex and abstract information? Yes. COMPREHENSION - SCORE: 6-ANA ROSA EXPRESSION EXPRESSION: TYPE: Both EXPRESSION - STEP 1: Does the patient require help from a person or device, or need extra time expressing complex and abst ract ideas (such as current events, finances, discharge planning, medical issues, relationships, etc) ? No. EXPRESSION - STEP 2: Does the patient need extra time, require an assistive device (such as augmentive communication syste m or a communication board), OR does s/he have mild difficulty expressing complex and abstract ideas (including mild dysarthria or mild word-find problems)? No. EXPRESSION - SCORE: 7-IND SOCIAL INTERACTION: SOCIAL INTERACTION - STEP 1: Does the patient require a helper to interact with others in social and therapeutic situations? No. SOCIAL INTERACTION - STEP 2: Does the patient need extra time in social situations, OR does s/he interact with staff, other patien ts, and family members ONLY in structured environments, OR does s/he require medication for social in teraction? Yes, patient requires medication for social interaction SOCIAL INTERACTION - SCORE: 6-ANA ROSA PROBLEM SOLVING: PROBLEM SOLVING - STEP 1: Does the patient need help from a person or device, or need extra time to solve complex problems such as managing a checking account or confronting interpersonal problems? No. PROBLEM SOLVING - STEP 2: Does the patient require extra time to make decisions or solve problems, OR does s/he have slight dif ficulty reading, initiating, or self-correcting in unfamiliar situations? No. PROBLEM SOLVING - SCORE: 7-IND MEMORY: MEMORY - STEP 1: Does the patient need help from a person or device, or need extra time to remember frequently encount ered people, daily routines, and executing requests? No. MEMORY - STEP 2: Does the patient have slight difficulty recognizing frequently encountered people, daily routines, or executing requests without the need for repetition or using self-initiated or environmental cues to remember? No. MEMORY - SCORE: 7-IND SIGNATURE PANEL: The following modified sections: Eating - Score, Grooming - Score, Bathing - Score, Dressing - Upper Body - Score, Dressing - Lower Body - Score, Toileting - Score, Bladder Management - Score, Bowel Man agement - Score, Transfers: Bed, Chair, Wheelchair - Score, Transfers: Toilet - Score, Transfers: Iraida wer - Score, Transfers: Tub - Score, Locomotion: Walk - Score, Locomotion: Wheelchair - Score, Compre hension - Score, Expression - Score, Social Interaction - Score, Problem Solving - Score, Memory - Sc ore were [electronically] signed by Mandy Banegas CNA on TueJun 28 2018 01:37:57 T-0600 ([facility])
[2018-06-28] MEDS: HYDROCODONE/APAP 7.5/325 MG TAB PO PRN ×2 (05:53→20:05)
[2018-06-28] MEDS: JUVEN PACKET PO SCH ×2 (08:00→20:00)
[2018-06-28] MEDS: PROMOD 30 ML DOSE PO SCH ×2 (08:00→20:00)
[2018-06-28] MEDS: POLYETHYL GLY 3350 17 GM/DOSE PO SCH (08:00)
[2018-06-28] MEDS: CLOPIDOGREL 75 MG TABLET PO SCH (08:14)
[2018-06-28] MEDS: ASPIRIN 81 MG CHEWABLE TABLET PO SCH (08:14)
[2018-06-28] MEDS: AMLODIPINE 5 MG TAB PO SCH ×2 (08:14→20:04)
[2018-06-28] MEDS: PANTOPRAZOLE 40MG TABLET PO SCH (08:14)
[2018-06-28] MEDS: GABAPENTIN 300 MG CAP PO SCH ×2 (08:14→20:04)
[2018-06-28] MEDS: DULOXETINE 20 MG CAP PO SCH (08:14)
--- NOTE | 2018-06-28 14:43 | FAST ---
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 David Sosa M.D. ADMISSION DIAGNOSIS: - Amputation of Limb 05 - Unilateral Lower Limb Above the Knee (AK) (05.3) Peripheral vascular disease. EATING: EATING - STEP 1: Does the patient require the assistance of a person or device, or need extra time when eating? Yes. EATING - STEP 2: Does the patient require the assistance of a helper? No, patient only requires an assistive device, O R s/he takes more than reasonable time to eat, OR there is a safety concern, OR s/he requires modifie d food consistency EATING - SCORE: 6-ANA ROSA GROOMING: Comb/brush hair Wash, rinse, and dry face Wash, rinse, and dry hands GROOMING - STEP 1: Does the patient require the assistance of a person or device, or need extra time when grooming? Yes. GROOMING - STEP 2: Does the patient require the assistance of a helper? No. The patient only requires an assistive devic e, OR takes more than reasonable time to groom, OR there is a concern for safety as the patient groom s GROOMING - SCORE: 6-ANA ROSA BATHING: Activity did not occur on this shift BATHING - SCORE: 0-UNK DRESSING - UPPER BODY: T-shirt/pullover shirt (four steps) ARTICLES SCORE Total number of steps: 4 DRESSING - UPPER BODY - STEP 1: Does the patient require help from a person or device, or need extra time when dressing above the carla st? Yes. DRESSING - UPPER BODY - STEP 2: Does the patient require the assistance of a helper? No. Patient only requires an assistive device, s uch as a button hook, velcro, or riveter automobile brakes. OR s/he takes more than reasonable time as s/he dresses the upper body. OR there is a concern for safety when s/he dresses the upper body DRESSING - UPPER BODY - SCORE: 6-ANA ROSA DRESSING - LOWER BODY: Elastic waist pants (three steps) Sock - Left foot (one step) Tied or buckled shoe - Left foot (two steps) ARTICLES SCORE Total number of steps: 6 DRESSING - LOWER BODY - STEP 1: Does the patient require help from a person or device, or need extra time when dressing below the carla st? Yes. DRESSING - LOWER BODY - STEP 2: Does the patient require the assistance of a helper? No. Patient requires an assistive device such as a riveter automobile brakes. OR s/he takes more than reasonable time as s/he dresses the lower body, OR there is a con cern for safety when s/he dresses the lower body DRESSING - LOWER BODY - SCORE: 6-ANA ROSA TOILETING: TOILETING - STEP 1: Does the patient require the assistance of a person or device, or need extra time with toileting? Yes . TOILETING - STEP 2: Does the patient require the assistance of a helper? No. TOILETING - SCORE: 6-ANA ROSA BLADDER MANAGEMENT: BLADDER MANAGEMENT - STEP 1: Does the patient control the bladder completely and intentionally without equipment or devices or med ications, and is always continent? No. BLADDER MANAGEMENT - STEP 2: Does the patient require the assistance of a helper? Yes. BLADDER MANAGEMENT - STEP 3: How much assistance does the patient require from the helper? Only set-up of equipment - such as plac ing it within reach of the patient or emptying a device - to maintain either satisfactory voiding pat tern or managing an external device, such as an absorbent pad, ileal device, or catheter BLADDER MANAGEMENT - SCORE: 5-SUP BLADDER MANAGEMENT - FREQUENCY OF ACCIDENTS: BLADDER MANAGEMENT(FA) - STEP 1: How many accidents has the patient had during the current shift? 0 BOWEL MANAGEMENT: Activity did not occur on this shift BOWEL MANAGEMENT - SCORE: 7-IND BOWEL MANAGEMENT - FREQUENCY OF ACCIDENTS: BOWEL MANAGEMENT(FA) - STEP 1: How many accidents has the patient had during the current shift? 0 TRANSFERS: BED, CHAIR, WHEELCHAIR: TRANSFERS: BED, CHAIR, WHEELCHAIR - STEP 1: Does the patient require assistance of a person or device, or need extra time with bed, chair, or whe elchair transfers? Yes. TRANSFERS: BED, CHAIR, WHEELCHAIR - STEP 2: Does the patient require the assistance of a helper? No. Patient only requires an assistive device fo r bed, chair, wheelchair transfers such as a sliding board, grab bar, or brace, OR s/he takes more th an reasonable time, OR there is a safety concern when s/he performs the transfers TRANSFERS: BED, CHAIR, WHEELCHAIR - SCORE: 6-ANA ROSA TRANSFERS: TOILET: TRANSFERS: TOILET - STEP 1: Does the patient require the assistance of a person or device, or need extra time with toilet transfe rs? Yes. TRANSFERS: TOILET - STEP 2: Does the patient require the assistance of a helper? No. Patient only requires an assistive device bryan ch as a grab bar or special seat, OR s/he takes more than reasonable time to perform toilet transfers , OR there is a safety concern when s/he performs toilet transfers. TRANSFERS: TOILET - SCORE: 6-ANA ROSA TRANSFERS: SHOWER: Activity did not occur on this shift TRANSFERS: SHOWER - SCORE: 0-UNK TRANSFERS: TUB: Activity did not occur on this shift TRANSFERS: TUB - SCORE: 0-UNK LOCOMOTION: WALK: Activity did not occur on this shift LOCOMOTION: WALK - SCORE: 0-UNK LOCOMOTION: WHEELCHAIR: LOCOMOTION: WHEELCHAIR - STEP 1: Does the patient need help to go 150 feet in a wheelchair? No. LOCOMOTION: WHEELCHAIR - SCORE: 6-ANA ROSA COMPREHENSION: COMPREHENSION: TYPE: Both COMPREHENSION - STEP 1: Does the patient require help from a person or device, or need extra time to understand complex and a bstract ideas (such as current events, finances, discharge planning, medical issues, relationships, e tc)? No. COMPREHENSION - STEP 2: Does the patient need extra time, require an assistive device (such as glasses for visual comprehensi on or a hearing aid for auditory comprehension) or does s/he have mild difficulty understanding compl ex and abstract information? Yes. COMPREHENSION - SCORE: 6-ANA ROSA EXPRESSION EXPRESSION: TYPE: Both EXPRESSION - STEP 1: Does the patient require help from a person or device, or need extra time expressing complex and abst ract ideas (such as current events, finances, discharge planning, medical issues, relationships, etc) ? No. EXPRESSION - STEP 2: Does the patient need extra time, require an assistive device (such as augmentive communication syste m or a communication board), OR does s/he have mild difficulty expressing complex and abstract ideas (including mild dysarthria or mild word-find problems)? Yes. EXPRESSION - SCORE: 6-ANA ROSA SOCIAL INTERACTION: SOCIAL INTERACTION - STEP 1: Does the patient require a helper to interact with others in social and therapeutic situations? No. SOCIAL INTERACTION - STEP 2: Does the patient need extra time in social situations, OR does s/he interact with staff, other patien ts, and family members ONLY in structured environments, OR does s/he require medication for social in teraction? Yes, patient needs extra time SOCIAL INTERACTION - SCORE: 6-ANA ROSA PROBLEM SOLVING: PROBLEM SOLVING - STEP 1: Does the patient need help from a person or device, or need extra time to solve complex problems such as managing a checking account or confronting interpersonal problems? No. PROBLEM SOLVING - STEP 2: Does the patient require extra time to make decisions or solve problems, OR does s/he have slight dif ficulty reading, initiating, or self-correcting in unfamiliar situations? Yes, patient needs extra ti me. PROBLEM SOLVING - SCORE: 6-ANA ROSA MEMORY: MEMORY - STEP 1: Does the patient need help from a person or device, or need extra time to remember frequently encount ered people, daily routines, and executing requests? No. MEMORY - STEP 2: Does the patient have slight difficulty recognizing frequently encountered people, daily routines, or executing requests without the need for repetition or using self-initiated or environmental cues to remember? Yes. MEMORY - SCORE: 6-ANA ROSA SIGNATURE PANEL: The following modified sections: Eating - Score, Grooming - Score, Bathing - Score, Dressing - Upper Body - Score, Dressing - Lower Body - Score, Bladder Management - Score, Bowel Management - Score, Tr ansfers: Bed, Chair, Wheelchair - Score, Transfers: Toilet - Score, Transfers: Shower - Score, Transf ers: Tub - Score, Locomotion: Walk - Score, Locomotion: Wheelchair - Score, Comprehension - Score, Ex pression - Score, Social Interaction - Score, Problem Solving - Score, Memory - Score, Toileting - Sc ore were [electronically] signed by Ayanna HernandezNMahesh on TueJun 28 2018 14:43:06 GMT-0600 ([facility])
--- NOTE | 2018-06-28 15:33 | FAST ---
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 David Sosa M.D. ADMISSION DIAGNOSIS: - Amputation of Limb 05 - Unilateral Lower Limb Above the Knee (AK) (05.3) Peripheral vascular disease. EATING: Activity did not occur on this shift EATING - SCORE: 0-UNK GROOMING: Activity did not occur on this shift GROOMING - SCORE: 0-UNK BATHING: Activity did not occur on this shift BATHING - SCORE: 0-UNK DRESSING - UPPER BODY: Activity did not occur on this shift Patient is not dressing in public clothing ARTICLES SCORE Total number of steps: 0 DRESSING - UPPER BODY - SCORE: 0-UNK DRESSING - LOWER BODY: Activity did not occur on this shift Patient is not dressing in public clothing ARTICLES SCORE Total number of steps: 0 DRESSING - LOWER BODY - SCORE: 0-UNK TOILETING: Activity did not occur on this shift TOILETING - SCORE: 0-UNK BLADDER MANAGEMENT: Activity did not occur on this shift BLADDER MANAGEMENT - SCORE: 7-IND BOWEL MANAGEMENT: Activity did not occur on this shift BOWEL MANAGEMENT - SCORE: 7-IND TRANSFERS: BED, CHAIR, WHEELCHAIR: TRANSFERS: BED, CHAIR, WHEELCHAIR - STEP 1: Does the patient require assistance of a person or device, or need extra time with bed, chair, or whe elchair transfers? Yes. TRANSFERS: BED, CHAIR, WHEELCHAIR - STEP 2: Does the patient require the assistance of a helper? No. Patient only requires an assistive device fo r bed, chair, wheelchair transfers such as a sliding board, grab bar, or brace, OR s/he takes more th an reasonable time, OR there is a safety concern when s/he performs the transfers TRANSFERS: BED, CHAIR, WHEELCHAIR - SCORE: 6-ANA ROSA TRANSFERS: TOILET: Activity did not occur on this shift TRANSFERS: TOILET - SCORE: 0-UNK TRANSFERS: SHOWER: Activity did not occur on this shift TRANSFERS: SHOWER - SCORE: 0-UNK TRANSFERS: TUB: Activity did not occur on this shift TRANSFERS: TUB - SCORE: 0-UNK LOCOMOTION: WALK: LOCOMOTION: WALK - STEP 1: Does the patient need help from a person or device, or need extra time to walk 150 feet? Yes. LOCOMOTION: WALK - STEP 2: How much assistance does the patient require to walk a minimum of 150 feet? Only supervision, cuing, or coaxing LOCOMOTION: WALK - SCORE: 5-SUP LOCOMOTION: WHEELCHAIR: LOCOMOTION: WHEELCHAIR - STEP 1: Does the patient need help to go 150 feet in a wheelchair? No. LOCOMOTION: WHEELCHAIR - SCORE: 6-ANA ROSA LOCOMOTION: STAIRS: Activity did not occur on this shift LOCOMOTION: STAIRS - SCORE: 0-UNK COMPREHENSION: COMPREHENSION - SCORE: 0-UNK EXPRESSION EXPRESSION - SCORE: 0-UNK SOCIAL INTERACTION: SOCIAL INTERACTION - SCORE: 0-UNK PROBLEM SOLVING: PROBLEM SOLVING - SCORE: 0-UNK MEMORY: MEMORY - SCORE: 0-UNK SIGNATURE PANEL: The following modified sections: Transfers: Bed, Chair, Wheelchair - Score, Transfers: Toilet - Score , Locomotion: Walk - Score, Locomotion: Wheelchair - Score, Locomotion: Stairs - Score were [[place] modi] signed by Macario Arvizu PTA on TueJun 28 2018 15:32:52 GMT-0600 (Central Standard Time)
--- NOTE | 2018-06-28 17:47 | R.PN ---
ENCOUNTER DATE AND TIME: 06/28/2018 17:44 (STONE DERRICKMAN AND RIGGER) NAME GARY RANDALL DATE OF : 1955 DATE OF ADMISSION: 06/15/2018 17:00 (STONE DERRICKMAN AND RIGGER) Peripheral vascular diseaseCHIEF COMPLAINT: Debility secondary to PVD. SUBJECTIVE: Pt denied any Shortness of Breath. Pt denied any depression. Ambulated 450' with standby assistance using a rolling walker. Propelled wheelchair 500' with modified independence. VITAL SIGNS Temperature: 97.3 F SBP/DBP: 131/84 Pulse: 85 Resp: 14 MEDICATION ALLERGIES: TRAMADOL ENVIRONMENTAL ALLERGIES: - Substance Allergies None Known - Other Allergies None Known CONSULT: Perform Consult Certified Prosthetic for prosthesis construction NURSING: - Shower allowing shower - Skin care per protocol PRECAUTIONS: - Weight Bearing Precaution NWB right LE ACTIVITIES OOB only with supervision THERAPIES: - Orthotics/Prosthetics Prosthetic Evaluation. - Occupational Therapy Evaluate and Treat. - Physical Therapy Evaluate and Treat. PHYSICAL EXAM - Gen Alert and awake Lying in bed No apparent distress Oriented to: person, time, and place - Skin Right AKA bandage in place with good hemostasis. Normacephalic - Eyes No abnormalities - ENMT No abnormalities - Neck No abnormalities - CVS RRR - Chest No abnormalities - Resp Clear to auscultation - Abd +bowel sounds - GI nondistended Deferred - No abnormalities - Ext Right AKA stump with good hemostasis. - Neuro No focal deficits - Psych No abnormalities ASSESSMENT: Pt. is a 62 yo Right-handed white male.On 06/05/2018 he was admitted to [facility] and underwent emergency surgery for Peripheral vascular disease (Amputation of Limb(Unilater al Lower Limb Above the Knee (AK))) by Arthur Oconnor.Pre-morbidly, Pt. was independent/mod-I in Trans fers Control, Communication, Social Cognition, Self-Care, Sphincter Control, and Locomotion; and he h ad good Sphincter Control.Currently, he has deficits of Safety Awareness, Transfers Control, Communic ation, Social Cognition, Balance, Endurance, Locomotion, and Self-Care.Pt. is now referred to [facility] for acute in-patient rehabilitation in order to maximize patient's functio nal independence in activities of daily living, strength, ROM, and mobility.Admission did not happen within 48 hour window due to infection in Right skin graft. Medical staff at [facility] re-evaluated a nd patient is now ready for DC. Patients physical and medical status otherwise has not changed and h e is still in need of aggressive inpatient therapy.- Rehab Goal Patient has realistic goal of being discharged at assistance level 6-Ganga to reside at Home with Pt self. MDM/PLAN: - Physical Therapy Gait dysfunction - to improve, our physical therapists will perform initial evaluation of pt's statu s upon admission and devise an individualized program for Gait Training, and Wheel Chair mobility Inability to transfer - to improve, our physical therapists will perform initial evaluation of pt's status upon admission and devise an individualized program for Bed mobility Need for home safety evaluation - to improve, our physical therapists will perform initial evaluatio n of pt's status upon admission and devise an individualized program for Home Evaluation Need in caregiver upon discharge - to improve, our physical therapists will perform initial evaluati on of pt's status upon admission and devise an individualized program for Caregiver Training New precaution - to improve, our physical therapists will perform initial evaluation of pt's status upon admission and devise an individualized program for Patient precaution education Poor balance - to improve, our physical therapists will perform initial evaluation of pt's status up on admission and devise an individualized program for Balance Training Poor endurance - to improve, our physical therapists will perform initial evaluation of pt's status upon admission and devise an individualized program for Endurance Training Weakness - to improve, our physical therapists will perform initial evaluation of pt's status upon a dmission and devise an individualized program for Aquatic Therapy, Neuromuscular Reeducation, and Str engthening Achieving independence - to improve, our physical therapists will perform initial evaluation of pt's status upon admission and devise an individualized program for Community Reintegration Activities - Occupational Therapy ADL deficits - to improve, our occupation therapists will perform initial evaluation of pt's status upon admission and devise an individualized program for Bathing, Bed mobility, Community Reintegratio n, Cooking, Dressing, Eating, Fine Motor Skills, Grooming, Homemaking, Kitchen Mobility, Laundry, Pat ient Education, Safety Awareness, Splinting - Positioning, Transfers(Toilet, Tub, Shower), and Wheel Chair Management Cognitive deficits - to improve, our occupation therapists will perform initial evaluation of pt's s tatus upon admission and devise an individualized program for Cognition - orientation Need for career representative - to improve, our occupation therapists will perform initial evaluation of pt's status upon admission and devise an individualized program for Caregiver Training Weakness - to improve, our occupation therapists will perform initial evaluation of pt's status upon admission and devise an individualized program for Aquatic Therapy, Balance, Endurance, UE ROM, and UE strengthening - Diet Type Continue Regular - Diet - Liquid Texture Continue Regular - Tube Feed Continue N/A - Weight Bearing Precaution NWB right LE - Skin care per protocol - N/A Perform Consult Certified Prosthetic for prosthesis construction - Diet - Solid Texture Continue Regular - Shower allowing shower FUNCTIONAL STATUS: UPDATED AT WEEKLY TEAM CONFERENCE - Bladder Same accident frequency: 7-Ind - No accidents in the past 7 days - Bowel Same accident frequency: 7-Ind - No accidents in the past 7 days - Walking Same score based on distance walked: 1(<=50ft) FUNCTIONAL STATUS: - Self-Care A. Eating Ind B. Grooming sup C. Bathing modA D. Dressing - Upper sup E. Dressing - Lower maxA F. Toileting modA - Sphincter Control G: Bladder control Ind H: Bowel control Ind - Transfers Control I. Bed/Chair/Wheelchair Iwona J. Toilet Iwona K. Tub/Shower Iwoan - Locomotion L. Walk/Wheelchair (B) Dep M. Stairs ADNO - Communication N. Comprehension (B) sup O. Expression (B) sup - Social Cognition P. Social Interaction sup Q. Problem Solving sup R. Memory sup - Endurance Fair - Balance Poor - Safety Awareness Fair CURRENT FUNC. DEFICITS: Safety Awareness, Transfers Control, Communication, Social Cognition, Balance, Endurance, Locomotion, and Self-Care SIGNATURE PANEL: (STONE DERRICKMAN AND RIGGER)
[2018-06-28] MEDS: DOCUSATE NA/SENNA CONC 1 TAB PO SCH (20:05)
[2018-06-28] MEDS: MELATONIN 3 MG TABLET PO PRN (20:05)
--- NOTE | 2018-06-29 01:18 | FAST ---
SHIFT START DATE/TIME: 06/28/2018 19:00 (HEALTHCARE SCIENCE SPECIALIST) SHIFT END DATE/TIME: 06/29/2018 07:00 (HEALTHCARE SCIENCE SPECIALIST) NAME GARY RANDALL DATE OF : 1955 DATE OF ADMISSION: 06/15/2018 17:00 (HEALTHCARE SCIENCE SPECIALIST) PHONE: AGE: 62 SSN# [id number] GENDER: Male ENCOUNTER PHYSICIAN: Dr. David Sosa M.D. ADMISSION DIAGNOSIS: - Amputation of Limb 05 - Unilateral Lower Limb Above the Knee (AK) (05.3) Peripheral vascular disease. EATING: Activity did not occur on this shift EATING - SCORE: 0-UNK GROOMING: Activity did not occur on this shift GROOMING - SCORE: 0-UNK BATHING: Activity did not occur on this shift BATHING - SCORE: 0-UNK DRESSING - UPPER BODY: Patient is not dressing in public clothing ARTICLES SCORE Total number of steps: 0 DRESSING - UPPER BODY - SCORE: 0-UNK DRESSING - LOWER BODY: Patient is not dressing in public clothing ARTICLES SCORE Total number of steps: 0 DRESSING - LOWER BODY - SCORE: 0-UNK TOILETING: TOILETING - STEP 1: Does the patient require the assistance of a person or device, or need extra time with toileting? Yes . TOILETING - STEP 2: Does the patient require the assistance of a helper? No. TOILETING - SCORE: 6-ANA ROSA BLADDER MANAGEMENT: BLADDER MANAGEMENT - STEP 1: Does the patient control the bladder completely and intentionally without equipment or devices or med ications, and is always continent? Yes. BLADDER MANAGEMENT - SCORE: 7-IND BOWEL MANAGEMENT: Activity did not occur on this shift BOWEL MANAGEMENT - SCORE: 7-IND TRANSFERS: BED, CHAIR, WHEELCHAIR: TRANSFERS: BED, CHAIR, WHEELCHAIR - STEP 1: Does the patient require assistance of a person or device, or need extra time with bed, chair, or whe elchair transfers? Yes. TRANSFERS: BED, CHAIR, WHEELCHAIR - STEP 2: Does the patient require the assistance of a helper? No. Patient only requires an assistive device fo r bed, chair, wheelchair transfers such as a sliding board, grab bar, or brace, OR s/he takes more th an reasonable time, OR there is a safety concern when s/he performs the transfers TRANSFERS: BED, CHAIR, WHEELCHAIR - SCORE: 6-ANA ROSA TRANSFERS: TOILET: TRANSFERS: TOILET - STEP 1: Does the patient require the assistance of a person or device, or need extra time with toilet transfe rs? Yes. TRANSFERS: TOILET - STEP 2: Does the patient require the assistance of a helper? No. Patient only requires an assistive device bryan ch as a grab bar or special seat, OR s/he takes more than reasonable time to perform toilet transfers , OR there is a safety concern when s/he performs toilet transfers. TRANSFERS: TOILET - SCORE: 6-ANA ROSA TRANSFERS: SHOWER: Activity did not occur on this shift TRANSFERS: SHOWER - SCORE: 0-UNK TRANSFERS: TUB: Activity did not occur on this shift TRANSFERS: TUB - SCORE: 0-UNK LOCOMOTION: WALK: Activity did not occur on this shift LOCOMOTION: WALK - SCORE: 0-UNK LOCOMOTION: WHEELCHAIR: Activity did not occur on this shift LOCOMOTION: WHEELCHAIR - SCORE: 0-UNK COMPREHENSION: COMPREHENSION: TYPE: Both COMPREHENSION - STEP 1: Does the patient require help from a person or device, or need extra time to understand complex and a bstract ideas (such as current events, finances, discharge planning, medical issues, relationships, e tc)? No. COMPREHENSION - STEP 2: Does the patient need extra time, require an assistive device (such as glasses for visual comprehensi on or a hearing aid for auditory comprehension) or does s/he have mild difficulty understanding compl ex and abstract information? Yes. COMPREHENSION - SCORE: 6-ANA ROSA EXPRESSION EXPRESSION: TYPE: Both EXPRESSION - STEP 1: Does the patient require help from a person or device, or need extra time expressing complex and abst ract ideas (such as current events, finances, discharge planning, medical issues, relationships, etc) ? No. EXPRESSION - STEP 2: Does the patient need extra time, require an assistive device (such as augmentive communication syste m or a communication board), OR does s/he have mild difficulty expressing complex and abstract ideas (including mild dysarthria or mild word-find problems)? No. EXPRESSION - SCORE: 7-IND SOCIAL INTERACTION: SOCIAL INTERACTION - STEP 1: Does the patient require a helper to interact with others in social and therapeutic situations? No. SOCIAL INTERACTION - STEP 2: Does the patient need extra time in social situations, OR does s/he interact with staff, other patien ts, and family members ONLY in structured environments, OR does s/he require medication for social in teraction? Yes, patient needs extra time SOCIAL INTERACTION - SCORE: 6-ANA ROSA PROBLEM SOLVING: PROBLEM SOLVING - STEP 1: Does the patient need help from a person or device, or need extra time to solve complex problems such as managing a checking account or confronting interpersonal problems? No. PROBLEM SOLVING - STEP 2: Does the patient require extra time to make decisions or solve problems, OR does s/he have slight dif ficulty reading, initiating, or self-correcting in unfamiliar situations? Yes, patient needs extra ti me. PROBLEM SOLVING - SCORE: 6-ANA ROSA MEMORY: MEMORY - STEP 1: Does the patient need help from a person or device, or need extra time to remember frequently encount ered people, daily routines, and executing requests? No. MEMORY - STEP 2: Does the patient have slight difficulty recognizing frequently encountered people, daily routines, or executing requests without the need for repetition or using self-initiated or environmental cues to remember? No. MEMORY - SCORE: 7-IND SIGNATURE PANEL: The following modified sections: Eating - Score, Grooming - Score, Dressing - Upper Body - Score, Allen ssing - Lower Body - Score, Toileting - Score, Bladder Management - Score, Bowel Management - Score, Transfers: Bed, Chair, Wheelchair - Score, Transfers: Toilet - Score, Transfers: Shower - Score, [place] sfers: Tub - Score, Locomotion: Walk - Score, Locomotion: Wheelchair - Score, Comprehension - Score, Expression - Score, Social Interaction - Score, Problem Solving - Score, Memory - Score were [electro nically] signed by Peg Hoffman CNA on TueJun 29 2018 01:17:33 GMT-0600 (Central Standard Time)
[2018-06-29 06:24] LABS: Absolute Lymphocytes (CBC) 1.5 K/uL (0.7-4.9); Absolute Monocytes 0.8 K/uL (0.1-1.3); Eosinophils % 4.7 % (0-4.4); Hematocrit 35.7 % (39.6-49.0); Lymphocytes % 19.5 % (15.3-44.8); MPV 7.6 fL (7.6-11.3); Monocytes % 10.4 % (3.3-12.3); RBC Red Blood Cell Count 4.12 M/uL (4.33-5.43)
[2018-06-29 06:45] LABS: Albumin 3.6 g/dL (3.4-5.0); Potassium 4.7 mmol/L (3.5-5.1); Prealbumin 28.7 mg/dL (20-40)
[2018-06-29] MEDS: AMLODIPINE 5 MG TAB PO SCH ×2 (07:53→21:13)
[2018-06-29] MEDS: DULOXETINE 20 MG CAP PO SCH (07:53)
[2018-06-29] MEDS: GABAPENTIN 300 MG CAP PO SCH ×2 (07:53→21:13)
[2018-06-29] MEDS: PANTOPRAZOLE 40MG TABLET PO SCH (07:54)
[2018-06-29] MEDS: CLOPIDOGREL 75 MG TABLET PO SCH (07:54)
[2018-06-29] MEDS: ASPIRIN 81 MG CHEWABLE TABLET PO SCH (07:54)
[2018-06-29] MEDS: POLYETHYL GLY 3350 17 GM/DOSE PO SCH (07:55)
[2018-06-29] MEDS: JUVEN PACKET PO SCH ×2 (07:55→20:00)
[2018-06-29] MEDS: PROMOD 30 ML DOSE PO SCH ×2 (07:55→20:00)
[2018-06-29] MEDS ORDERED: DOCUSATE NA/SENNA CONC 1 TAB PO PRN (07:56)
[2018-06-29] MEDS ORDERED: POLYETHYL GLY 3350 17 GM/DOSE PO PRN (07:56)
--- NOTE | 2018-06-29 14:19 | FAST ---
SHIFT START DATE/TIME: 06/29/2018 07:00 (HEAD BAKER) SHIFT END DATE/TIME: 06/29/2018 19:00 (HEAD BAKER) NAME GARY RANDALL DATE OF : 1955 DATE OF ADMISSION: 06/15/2018 17:00 (HEAD BAKER) PHONE: AGE: 62 SSN# [id number] GENDER: Male ENCOUNTER PHYSICIAN: Dr. David Sosa M.D. ADMISSION DIAGNOSIS: - Amputation of Limb 05 - Unilateral Lower Limb Above the Knee (AK) (05.3) Peripheral vascular disease. EATING: EATING - STEP 1: Does the patient require the assistance of a person or device, or need extra time when eating? Yes. EATING - STEP 2: Does the patient require the assistance of a helper? No, patient only requires an assistive device, O R s/he takes more than reasonable time to eat, OR there is a safety concern, OR s/he requires modifie d food consistency EATING - SCORE: 6-ANA ROSA GROOMING: Comb/brush hair Oral care Wash, rinse, and dry face Wash, rinse, and dry hands GROOMING - STEP 1: Does the patient require the assistance of a person or device, or need extra time when grooming? Yes. GROOMING - STEP 2: Does the patient require the assistance of a helper? No. The patient only requires an assistive devic e, OR takes more than reasonable time to groom, OR there is a concern for safety as the patient groom s GROOMING - SCORE: 6-ANA ROSA BATHING: Activity did not occur on this shift BATHING - SCORE: 0-UNK DRESSING - UPPER BODY: ARTICLES SCORE Total number of steps: 0 DRESSING - UPPER BODY - STEP 1: Does the patient require help from a person or device, or need extra time when dressing above the carla st? Yes. DRESSING - UPPER BODY - STEP 2: Does the patient require the assistance of a helper? No. Patient only requires an assistive device, s uch as a button hook, velcro, or saw operator. OR s/he takes more than reasonable time as s/he dresses the upper body. OR there is a concern for safety when s/he dresses the upper body DRESSING - UPPER BODY - SCORE: 6-ANA ROSA DRESSING - LOWER BODY: Elastic waist pants (three steps) Sock - Left foot (one step) Tied or buckled shoe - Left foot (two steps) ARTICLES SCORE Total number of steps: 6 DRESSING - LOWER BODY - STEP 1: Does the patient require help from a person or device, or need extra time when dressing below the carla st? Yes. DRESSING - LOWER BODY - STEP 2: Does the patient require the assistance of a helper? No. Patient requires an assistive device such as a saw operator. OR s/he takes more than reasonable time as s/he dresses the lower body, OR there is a con cern for safety when s/he dresses the lower body DRESSING - LOWER BODY - SCORE: 6-ANA ROSA TOILETING: TOILETING - STEP 1: Does the patient require the assistance of a person or device, or need extra time with toileting? Yes . TOILETING - STEP 2: Does the patient require the assistance of a helper? No. TOILETING - SCORE: 6-ANA ROSA BLADDER MANAGEMENT: BLADDER MANAGEMENT - STEP 1: Does the patient control the bladder completely and intentionally without equipment or devices or med ications, and is always continent? No. BLADDER MANAGEMENT - STEP 2: Does the patient require the assistance of a helper? Yes. BLADDER MANAGEMENT - STEP 3: How much assistance does the patient require from the helper? Only set-up of equipment - such as plac ing it within reach of the patient or emptying a device - to maintain either satisfactory voiding pat tern or managing an external device, such as an absorbent pad, ileal device, or catheter BLADDER MANAGEMENT - SCORE: 5-SUP BLADDER MANAGEMENT - FREQUENCY OF ACCIDENTS: BLADDER MANAGEMENT(FA) - STEP 1: How many accidents has the patient had during the current shift? 0 BOWEL MANAGEMENT: Activity did not occur on this shift BOWEL MANAGEMENT - SCORE: 7-IND BOWEL MANAGEMENT - FREQUENCY OF ACCIDENTS: BOWEL MANAGEMENT(FA) - STEP 1: How many accidents has the patient had during the current shift? 0 TRANSFERS: BED, CHAIR, WHEELCHAIR: TRANSFERS: BED, CHAIR, WHEELCHAIR - STEP 1: Does the patient require assistance of a person or device, or need extra time with bed, chair, or whe elchair transfers? Yes. TRANSFERS: BED, CHAIR, WHEELCHAIR - STEP 2: Does the patient require the assistance of a helper? No. Patient only requires an assistive device fo r bed, chair, wheelchair transfers such as a sliding board, grab bar, or brace, OR s/he takes more th an reasonable time, OR there is a safety concern when s/he performs the transfers TRANSFERS: BED, CHAIR, WHEELCHAIR - SCORE: 6-ANA ROSA TRANSFERS: TOILET: TRANSFERS: TOILET - STEP 1: Does the patient require the assistance of a person or device, or need extra time with toilet transfe rs? Yes. TRANSFERS: TOILET - STEP 2: Does the patient require the assistance of a helper? No. Patient only requires an assistive device bryan ch as a grab bar or special seat, OR s/he takes more than reasonable time to perform toilet transfers , OR there is a safety concern when s/he performs toilet transfers. TRANSFERS: TOILET - SCORE: 6-ANA ROSA TRANSFERS: SHOWER: Activity did not occur on this shift TRANSFERS: SHOWER - SCORE: 0-UNK TRANSFERS: TUB: Activity did not occur on this shift TRANSFERS: TUB - SCORE: 0-UNK LOCOMOTION: WALK: Activity did not occur on this shift LOCOMOTION: WALK - SCORE: 0-UNK LOCOMOTION: WHEELCHAIR: LOCOMOTION: WHEELCHAIR - STEP 1: Does the patient need help to go 150 feet in a wheelchair? No. LOCOMOTION: WHEELCHAIR - SCORE: 6-ANA ROSA COMPREHENSION: COMPREHENSION: TYPE: Both COMPREHENSION - STEP 1: Does the patient require help from a person or device, or need extra time to understand complex and a bstract ideas (such as current events, finances, discharge planning, medical issues, relationships, e tc)? No. COMPREHENSION - STEP 2: Does the patient need extra time, require an assistive device (such as glasses for visual comprehensi on or a hearing aid for auditory comprehension) or does s/he have mild difficulty understanding compl ex and abstract information? Yes. COMPREHENSION - SCORE: 6-ANA ROSA EXPRESSION EXPRESSION: TYPE: Both EXPRESSION - STEP 1: Does the patient require help from a person or device, or need extra time expressing complex and abst ract ideas (such as current events, finances, discharge planning, medical issues, relationships, etc) ? No. EXPRESSION - STEP 2: Does the patient need extra time, require an assistive device (such as augmentive communication syste m or a communication board), OR does s/he have mild difficulty expressing complex and abstract ideas (including mild dysarthria or mild word-find problems)? Yes. EXPRESSION - SCORE: 6-ANA ROSA SOCIAL INTERACTION: SOCIAL INTERACTION - STEP 1: Does the patient require a helper to interact with others in social and therapeutic situations? No. SOCIAL INTERACTION - STEP 2: Does the patient need extra time in social situations, OR does s/he interact with staff, other patien ts, and family members ONLY in structured environments, OR does s/he require medication for social in teraction? Yes, patient needs extra time SOCIAL INTERACTION - SCORE: 6-ANA ROSA PROBLEM SOLVING: PROBLEM SOLVING - STEP 1: Does the patient need help from a person or device, or need extra time to solve complex problems such as managing a checking account or confronting interpersonal problems? No. PROBLEM SOLVING - STEP 2: Does the patient require extra time to make decisions or solve problems, OR does s/he have slight dif ficulty reading, initiating, or self-correcting in unfamiliar situations? Yes, patient needs extra ti me. PROBLEM SOLVING - SCORE: 6-ANA ROSA MEMORY: MEMORY - STEP 1: Does the patient need help from a person or device, or need extra time to remember frequently encount ered people, daily routines, and executing requests? No. MEMORY - STEP 2: Does the patient have slight difficulty recognizing frequently encountered people, daily routines, or executing requests without the need for repetition or using self-initiated or environmental cues to remember? Yes. MEMORY - SCORE: 6-ANA ROSA SIGNATURE PANEL: The following modified sections: Eating - Score, Grooming - Score, Bathing - Score, Dressing - Upper Body - Score, Dressing - Lower Body - Score, Toileting - Score, Bladder Management - Score, Bowel Man agement - Score, Transfers: Bed, Chair, Wheelchair - Score, Transfers: Toilet - Score, Transfers: Iraida wer - Score, Transfers: Tub - Score, Locomotion: Walk - Score, Locomotion: Wheelchair - Score, Compre hension - Score, Expression - Score, Social Interaction - Score, Problem Solving - Score, Memory - Sc ore were [electronically] signed by Juanita Quintero C.N.A. on TueJun 29 2018 14:18:31 GMT-0600 (Cent[place] Standard Time)
--- NOTE | 2018-06-29 14:30 | FAST ---
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 David Sosa M.D. ADMISSION DIAGNOSIS: - Amputation of Limb 05 - Unilateral Lower Limb Above the Knee (AK) (05.3) Peripheral vascular disease. EATING: Activity did not occur on this shift EATING - SCORE: 0-UNK GROOMING: Activity did not occur on this shift GROOMING - SCORE: 0-UNK BATHING: Activity did not occur on this shift BATHING - SCORE: 0-UNK DRESSING - UPPER BODY: Activity did not occur on this shift Patient is not dressing in public clothing ARTICLES SCORE Total number of steps: 0 DRESSING - UPPER BODY - SCORE: 0-UNK DRESSING - LOWER BODY: Activity did not occur on this shift Patient is not dressing in public clothing ARTICLES SCORE Total number of steps: 0 DRESSING - LOWER BODY - SCORE: 0-UNK TOILETING: Activity did not occur on this shift TOILETING - SCORE: 0-UNK BLADDER MANAGEMENT: Activity did not occur on this shift BLADDER MANAGEMENT - SCORE: 7-IND BOWEL MANAGEMENT: Activity did not occur on this shift BOWEL MANAGEMENT - SCORE: 7-IND TRANSFERS: BED, CHAIR, WHEELCHAIR: TRANSFERS: BED, CHAIR, WHEELCHAIR - STEP 1: Does the patient require assistance of a person or device, or need extra time with bed, chair, or whe elchair transfers? Yes. TRANSFERS: BED, CHAIR, WHEELCHAIR - STEP 2: Does the patient require the assistance of a helper? No. Patient only requires an assistive device fo r bed, chair, wheelchair transfers such as a sliding board, grab bar, or brace, OR s/he takes more th an reasonable time, OR there is a safety concern when s/he performs the transfers TRANSFERS: BED, CHAIR, WHEELCHAIR - SCORE: 6-ANA ROSA TRANSFERS: TOILET: Activity did not occur on this shift TRANSFERS: TOILET - SCORE: 0-UNK TRANSFERS: SHOWER: Activity did not occur on this shift TRANSFERS: SHOWER - SCORE: 0-UNK TRANSFERS: TUB: Activity did not occur on this shift TRANSFERS: TUB - SCORE: 0-UNK LOCOMOTION: WALK: LOCOMOTION: WALK - STEP 1: Does the patient need help from a person or device, or need extra time to walk 150 feet? Yes. LOCOMOTION: WALK - STEP 2: How much assistance does the patient require to walk a minimum of 150 feet? Only supervision, cuing, or coaxing LOCOMOTION: WALK - SCORE: 5-SUP LOCOMOTION: WHEELCHAIR: LOCOMOTION: WHEELCHAIR - STEP 1: Does the patient need help to go 150 feet in a wheelchair? No. LOCOMOTION: WHEELCHAIR - SCORE: 6-ANA ROSA LOCOMOTION: STAIRS: Activity did not occur on this shift LOCOMOTION: STAIRS - SCORE: 0-UNK COMPREHENSION: COMPREHENSION - SCORE: 0-UNK EXPRESSION EXPRESSION - SCORE: 0-UNK SOCIAL INTERACTION: SOCIAL INTERACTION - SCORE: 0-UNK PROBLEM SOLVING: PROBLEM SOLVING - SCORE: 0-UNK MEMORY: MEMORY - SCORE: 0-UNK SIGNATURE PANEL: The following modified sections: Transfers: Bed, Chair, Wheelchair - Score, Transfers: Toilet - Score , Locomotion: Walk - Score, Locomotion: Wheelchair - Score, Locomotion: Stairs - Score were [l[place] modi] signed by Latosha Sandoval PTA on TueJun 29 2018 14:29:38 GMT-0600 (Central Standard Time)
--- NOTE | 2018-06-29 18:22 | R.PN ---
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 SUBJECTIVE: Pt denied any Shortness of Breath. Pt denied any depression. Ambulated 360' with standby assistance using a rolling walker. Propelled wheelchair 250' with modified independence. VITAL SIGNS Temperature: 97.3 F SBP/DBP: 120/67 Pulse: 86 Resp: 16 MEDICATION ALLERGIES: TRAMADOL ENVIRONMENTAL ALLERGIES: - Substance Allergies None Known - Other Allergies None Known CONSULT: Perform Consult Certified Prosthetic for prosthesis construction NURSING: - Shower allowing shower - Skin care per protocol PRECAUTIONS: - Weight Bearing Precaution NWB right LE ACTIVITIES OOB only with supervision THERAPIES: - Orthotics/Prosthetics Prosthetic Evaluation. - Occupational Therapy Evaluate and Treat. - Physical Therapy Evaluate and Treat. PHYSICAL EXAM - Gen Alert and awake Lying in bed No apparent distress Oriented to: person, time, and place - Skin Right AKA bandage in place with good hemostasis. Normacephalic - Eyes No abnormalities - ENMT No abnormalities - Neck No abnormalities - CVS RRR - Chest No abnormalities - Resp Clear to auscultation - Abd +bowel sounds - GI nondistended Deferred - No abnormalities - Ext Right AKA stump with good hemostasis. - Neuro No focal deficits - Psych No abnormalities ASSESSMENT: Pt. is a 62 yo Right-handed white male.On 06/05/2018 he was admitted to [facility] and underwent emergency surgery for Peripheral vascular disease (Amputation of Limb(Unilater al Lower Limb Above the Knee (AK))) by Arthur Oconnor.Pre-morbidly, Pt. was independent/mod-I in Trans fers Control, Communication, Social Cognition, Self-Care, Sphincter Control, and Locomotion; and he h ad good Sphincter Control.Currently, he has deficits of Safety Awareness, Transfers Control, Communic ation, Social Cognition, Balance, Endurance, Locomotion, and Self-Care.Pt. is now referred to [facility] for acute in-patient rehabilitation in order to maximize patient's functio nal independence in activities of daily living, strength, ROM, and mobility.Admission did not happen within 48 hour window due to infection in Right skin graft. Medical staff at [facility] re-evaluated a nd patient is now ready for DC. Patients physical and medical status otherwise has not changed and h e is still in need of aggressive inpatient therapy.- Rehab Goal Patient has realistic goal of being discharged at assistance level 6-[place]anga to reside at Home with Pt self. MDM/PLAN: - Physical Therapy Gait dysfunction - to improve, our physical therapists will perform initial evaluation of pt's statu s upon admission and devise an individualized program for Gait Training, and Wheel Chair mobility Inability to transfer - to improve, our physical therapists will perform initial evaluation of pt's status upon admission and devise an individualized program for Bed mobility Need for home safety evaluation - to improve, our physical therapists will perform initial evaluatio n of pt's status upon admission and devise an individualized program for Home Evaluation Need in caregiver upon discharge - to improve, our physical therapists will perform initial evaluati on of pt's status upon admission and devise an individualized program for Caregiver Training New precaution - to improve, our physical therapists will perform initial evaluation of pt's status upon admission and devise an individualized program for Patient precaution education Poor balance - to improve, our physical therapists will perform initial evaluation of pt's status up on admission and devise an individualized program for Balance Training Poor endurance - to improve, our physical therapists will perform initial evaluation of pt's status upon admission and devise an individualized program for Endurance Training Weakness - to improve, our physical therapists will perform initial evaluation of pt's status upon a dmission and devise an individualized program for Aquatic Therapy, Neuromuscular Reeducation, and Str engthening Achieving independence - to improve, our physical therapists will perform initial evaluation of pt's status upon admission and devise an individualized program for Community Reintegration Activities - Occupational Therapy ADL deficits - to improve, our occupation therapists will perform initial evaluation of pt's status upon admission and devise an individualized program for Bathing, Bed mobility, Community Reintegratio n, Cooking, Dressing, Eating, Fine Motor Skills, Grooming, Homemaking, Kitchen Mobility, Laundry, Pat ient Education, Safety Awareness, Splinting - Positioning, Transfers(Toilet, Tub, Shower), and Wheel Chair Management Cognitive deficits - to improve, our occupation therapists will perform initial evaluation of pt's s tatus upon admission and devise an individualized program for Cognition - orientation Need for patient care coordinator - to improve, our occupation therapists will perform initial evaluation of pt's status upon admission and devise an individualized program for Caregiver Training Weakness - to improve, our occupation therapists will perform initial evaluation of pt's status upon admission and devise an individualized program for Aquatic Therapy, Balance, Endurance, UE ROM, and UE strengthening - Diet Type Continue Regular - Diet - Liquid Texture Continue Regular - Tube Feed Continue N/A - Weight Bearing Precaution NWB right LE - Skin care per protocol - N/A Perform Consult Certified Prosthetic for prosthesis construction - Diet - Solid Texture Continue Regular - Shower allowing shower FUNCTIONAL STATUS: UPDATED AT WEEKLY TEAM CONFERENCE - Bladder Same accident frequency: 7-Ind - No accidents in the past 7 days - Bowel Same accident frequency: 7-Ind - No accidents in the past 7 days - Walking Same score based on distance walked: 1(<=50ft) FUNCTIONAL STATUS: - Self-Care A. Eating Ind B. Grooming sup C. Bathing modA D. Dressing - Upper sup E. Dressing - Lower maxA F. Toileting modA - Sphincter Control G: Bladder control Ind H: Bowel control Ind - Transfers Control I. Bed/Chair/Wheelchair [place] J. Toilet Iwona K. Tub/Shower [place] - Locomotion L. Walk/Wheelchair (B) Dep M. Stairs ADNO - Communication N. Comprehension (B) sup O. Expression (B) sup - Social Cognition P. Social Interaction sup Q. Problem Solving sup R. Memory sup - Endurance Fair - Balance Poor - Safety Awareness Fair CURRENT FUNC. 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
[2018-06-29 20:04] LABS: Hematocrit 32.3 % (39.6-49.0)
[2018-06-29] MEDS: HYDROCODONE/APAP 7.5/325 MG TAB PO PRN (21:13)
[2018-06-29] MEDS: MELATONIN 3 MG TABLET PO PRN (21:14)
--- NOTE | 2018-06-30 02:17 | FAST ---
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 David Sosa M.D. ADMISSION DIAGNOSIS: - Amputation of Limb 05 - Unilateral Lower Limb Above the Knee (AK) (05.3) Peripheral vascular disease. EATING: Activity did not occur on this shift EATING - SCORE: 0-UNK GROOMING: Activity did not occur on this shift GROOMING - SCORE: 0-UNK BATHING: Activity did not occur on this shift BATHING - SCORE: 0-UNK DRESSING - UPPER BODY: Patient is not dressing in public clothing ARTICLES SCORE Total number of steps: 0 DRESSING - UPPER BODY - SCORE: 0-UNK DRESSING - LOWER BODY: Patient is not dressing in public clothing ARTICLES SCORE Total number of steps: 0 DRESSING - LOWER BODY - SCORE: 0-UNK TOILETING: TOILETING - STEP 1: Does the patient require the assistance of a person or device, or need extra time with toileting? Yes . TOILETING - STEP 2: Does the patient require the assistance of a helper? Yes. TOILETING - STEP 3: How much assistance does the patient require from the helper? Only supervision TOILETING - SCORE: 5-SUP BLADDER MANAGEMENT: BLADDER MANAGEMENT - STEP 1: Does the patient control the bladder completely and intentionally without equipment or devices or med ications, and is always continent? No. BLADDER MANAGEMENT - STEP 2: Does the patient require the assistance of a helper? Yes. BLADDER MANAGEMENT - STEP 3: How much assistance does the patient require from the helper? Only supervision, stand-by, cuing, or c oaxing BLADDER MANAGEMENT - SCORE: 5-SUP BOWEL MANAGEMENT: BOWEL MANAGEMENT - STEP 1: Does the patient control bowels completely and intentionally without equipment devices or medications AND is always continent? No. BOWEL MANAGEMENT - STEP 2: Does the patient require the assistance of a helper? No, patient requires medication for control such as stool softeners, suppositories, laxatives, enemas, or OTC medications BOWEL MANAGEMENT - SCORE: 6-ANA ROSA TRANSFERS: BED, CHAIR, WHEELCHAIR: TRANSFERS: BED, CHAIR, WHEELCHAIR - STEP 1: Does the patient require assistance of a person or device, or need extra time with bed, chair, or whe elchair transfers? Yes. TRANSFERS: BED, CHAIR, WHEELCHAIR - STEP 2: Does the patient require the assistance of a helper? Yes. TRANSFERS: BED, CHAIR, WHEELCHAIR - STEP 3: How much assistance does the patient require from the helper? Steadying/guiding assistance TRANSFERS: BED, CHAIR, WHEELCHAIR - SCORE: 4-MIN TRANSFERS: TOILET: TRANSFERS: TOILET - STEP 1: Does the patient require the assistance of a person or device, or need extra time with toilet transfe rs? Yes. TRANSFERS: TOILET - STEP 2: Does the patient require the assistance of a helper? Yes. TRANSFERS: TOILET - STEP 3: How much assistance does the patient require from the helper? Only supervision, cuing, coaxing, OR he lp to set out transfer equipment or to lock brakes and/or lift foot rests TRANSFERS: TOILET - SCORE: 5-SUP TRANSFERS: SHOWER: Activity did not occur on this shift TRANSFERS: SHOWER - SCORE: 0-UNK TRANSFERS: TUB: Activity did not occur on this shift TRANSFERS: TUB - SCORE: 0-UNK LOCOMOTION: WALK: Activity did not occur on this shift LOCOMOTION: WALK - SCORE: 0-UNK LOCOMOTION: WHEELCHAIR: Activity did not occur on this shift LOCOMOTION: WHEELCHAIR - SCORE: 0-UNK COMPREHENSION: COMPREHENSION: TYPE: Both COMPREHENSION - STEP 1: Does the patient require help from a person or device, or need extra time to understand complex and a bstract ideas (such as current events, finances, discharge planning, medical issues, relationships, e tc)? No. COMPREHENSION - STEP 2: Does the patient need extra time, require an assistive device (such as glasses for visual comprehensi on or a hearing aid for auditory comprehension) or does s/he have mild difficulty understanding compl ex and abstract information? Yes. COMPREHENSION - SCORE: 6-ANA ROSA EXPRESSION EXPRESSION: TYPE: Both EXPRESSION - STEP 1: Does the patient require help from a person or device, or need extra time expressing complex and abst ract ideas (such as current events, finances, discharge planning, medical issues, relationships, etc) ? No. EXPRESSION - STEP 2: Does the patient need extra time, require an assistive device (such as augmentive communication syste m or a communication board), OR does s/he have mild difficulty expressing complex and abstract ideas (including mild dysarthria or mild word-find problems)? No. EXPRESSION - SCORE: 7-IND SOCIAL INTERACTION: SOCIAL INTERACTION - STEP 1: Does the patient require a helper to interact with others in social and therapeutic situations? No. SOCIAL INTERACTION - STEP 2: Does the patient need extra time in social situations, OR does s/he interact with staff, other patien ts, and family members ONLY in structured environments, OR does s/he require medication for social in teraction? Yes, patient requires medication for social interaction SOCIAL INTERACTION - SCORE: 6-ANA ROSA PROBLEM SOLVING: PROBLEM SOLVING - STEP 1: Does the patient need help from a person or device, or need extra time to solve complex problems such as managing a checking account or confronting interpersonal problems? No. PROBLEM SOLVING - STEP 2: Does the patient require extra time to make decisions or solve problems, OR does s/he have slight dif ficulty reading, initiating, or self-correcting in unfamiliar situations? Yes, patient needs extra ti me. PROBLEM SOLVING - SCORE: 6-ANA ROSA MEMORY: MEMORY - STEP 1: Does the patient need help from a person or device, or need extra time to remember frequently encount ered people, daily routines, and executing requests? No. MEMORY - STEP 2: Does the patient have slight difficulty recognizing frequently encountered people, daily routines, or executing requests without the need for repetition or using self-initiated or environmental cues to remember? Yes. MEMORY - SCORE: 6-ANA ROSA SIGNATURE PANEL: The following modified sections: Eating - Score, Grooming - Score, Dressing - Upper Body - Score, Allen ssing - Lower Body - Score, Toileting - Score, Bladder Management - Score, Bowel Management - Score, Transfers: Bed, Chair, Wheelchair - Score, Transfers: Toilet - Score, Transfers: Shower - Score, [place] sfers: Tub - Score, Locomotion: Walk - Score, Locomotion: Wheelchair - Score, Comprehension - Score, Expression - Score, Social Interaction - Score, Problem Solving - Score, Memory - Score were [electro nically] signed by Peg Hoffman CNA on TueJun 30 2018 02:15:42 GMT-0600 (Central Standard Time)
[2018-06-30 06:26] LABS: Hematocrit 33.7 % (39.6-49.0)
[2018-06-30] MEDS: PANTOPRAZOLE 40MG TABLET PO SCH (07:49)
[2018-06-30] MEDS: DULOXETINE 20 MG CAP PO SCH (07:52)
[2018-06-30] MEDS: ASPIRIN 81 MG CHEWABLE TABLET PO SCH (07:52)
[2018-06-30] MEDS: GABAPENTIN 300 MG CAP PO SCH ×2 (07:52→19:35)
[2018-06-30] MEDS: AMLODIPINE 5 MG TAB PO SCH ×2 (08:00→19:35)
[2018-06-30] MEDS: PROMOD 30 ML DOSE PO SCH ×2 (08:00→19:38)
[2018-06-30] MEDS: JUVEN PACKET PO SCH ×2 (08:00→19:37)
--- NOTE | 2018-06-30 09:49 | P.RH.PN ---
Estimated Length of Stay: 17 Expected Discharge Date: 07/01/18 Discharge Disposition Plan: Home Family Support: Yes Long-Term Goal: Mobility, Transfers, Self Care Vital Signs: Last Vital Signs Temp 96.8 F 06/30/18 07:00 Pulse 96 H 06/30/18 08:00 Resp 18 06/30/18 07:00 BP 118/73 06/30/18 08:00 Pulse Ox 96 06/30/18 07:00 Laboratory: Laboratory Last Values WBC 7.8 K/uL (4.3-10.9) 06/29/18 05:54 RBC 4.12 M/uL (4.33-5.43) L 06/29/18 05:54 Hgb 11.4 g/dL (13.6-17.9) L 06/30/18 06:03 Hct 33.7 % (39.6-49.0) L 06/30/18 06:03 MCV 86.7 fL (80-100) 06/29/18 05:54 MCH 29.6 pg (27.0-35.0) 06/29/18 05:54 MCHC 34.2 g/dL (32.0-36.0) 06/29/18 05:54 RDW 16.5 % (12.1-15.2) H 06/29/18 05:54 Plt Count 339 K/uL (152-406) 06/29/18 05:54 MPV 7.6 fL (7.6-11.3) 06/29/18 05:54 Neutrophils % 64.4 % (41.7-73.7) 06/29/18 05:54 Lymphocytes % 19.5 % (15.3-44.8) 06/29/18 05:54 Monocytes % 10.4 % (3.3-12.3) 06/29/18 05:54 Eosinophils % 4.7 % (0-4.4) H 06/29/18 05:54 Basophils % 1.0 % (0-1.3) 06/29/18 05:54 Absolute Neutrophils 5.0 K/uL (1.8-8.0) 06/29/18 05:54 Absolute Lymphocytes 1.5 K/uL (0.7-4.9) 06/29/18 05:54 Absolute Monocytes 0.8 K/uL (0.1-1.3) 06/29/18 05:54 Absolute Eosinophils 0.4 K/uL (0-0.5) 06/29/18 05:54 Absolute Basophils 0.1 K/uL (0-0.5) 06/29/18 05:54 Sodium 133 mmol/L (136-145) L 06/29/18 05:54 Potassium 4.7 mmol/L (3.5-5.1) 06/29/18 05:54 Chloride 101 mmol/L (98-107) 06/29/18 05:54 Carbon Dioxide 24 mmol/L (21-32) 06/29/18 05:54 BUN 27 mg/dL (7-18) H 06/29/18 05:54 Creatinine 1.74 mg/dL (0.55-1.3) H 06/29/18 05:54 Estimated GFR 40 mL/min (=/>90) L 06/29/18 05:54 Glucose 113 mg/dL (74-106) H 06/29/18 05:54 Calcium 8.9 mg/dL (8.5-10.1) 06/29/18 05:54 Magnesium 2.5 mg/dL (1.8-2.4) H D 06/16/18 06:08 Albumin 3.6 g/dL (3.4-5.0) 06/29/18 05:54 Prealbumin 28.7 mg/dL (20-40) 06/29/18 05:54 Urine Color Yellow 06/15/18 18:50 Urine Appearance Clear 06/15/18 18:50 Urine pH 6.0 (5.0-7.0) 06/15/18 18:50 Ur Specific [place] 1.015 (1.005-1.030) 06/15/18 18:50 Urine Ketones Negative (NEG) 06/15/18 18:50 Urine Blood Negative (NEG) 06/15/18 18:50 Urine Nitrite Negative (NEG) 06/15/18 18:50 Urine Bilirubin Negative (NEG) 06/15/18 18:50 Urine Urobilinogen 0.2 mg/dL (0.2-1.0) 06/15/18 18:50 Ur Leukocyte Esterase Negative (NEG) 06/15/18 18:50 Urine RBC <5 /HPF (NONE SEEN) 06/15/18 18:50 Urine WBC None seen /HPF (<5) 06/15/18 18:50 Ur Squamous Epith Cells <5 /HPF (NONE SEEN) 06/15/18 18:50 Urine Bacteria None seen /HPF (NONE SEEN) 06/15/18 18:50 Urine Culture Reflexed Not needed 06/15/18 18:50 Urine Glucose Negative (NEG) 06/15/18 18:50 Urine Total Protein Negative (NEG) 06/15/18 18:50 Weight: 168 lb 4.8 oz Wound Present: Yes Closed Surgical Incision Present: Yes Negative Pressure Wound Therapy Present: No Physician Update: His Hgb is 11.3 after a minor lower rectal bleed and burising in the arms after slipping in the toilet. He has no ongoing pain in his arms or his right AKA stump. He will be discharged home today with possible home health. Pain Issues: Line [place] 7.5mg Q4H PRN Functional Improvement: Patient has met all short-term goals and is working toward long-term goals. Patient requires VC for impulsivity. Functional Improvement Occupational Therapy: Pt can benift with further therapy to ont to educate and instruct on energy conservation techniques and safety awareness for adl and Iadl tasks. Cont to increase pt's endurance and activity tolerance for all functional tasks. Cont to strengthen pt's UB strength for sit to stands and for functional transfers. Cont with the POC and the goals by the supervising OTR. Summary: Patient's care plan and group home goals have been reviewed and revised as necessary. Please see the Rehabilitation Signature page for all necessary signatures.
--- NOTE | 2018-06-30 16:29 | FAST ---
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 David Sosa M.D. ADMISSION DIAGNOSIS: - Amputation of Limb 05 - Unilateral Lower Limb Above the Knee (AK) (05.3) Peripheral vascular disease. EATING: EATING - STEP 1: Does the patient require the assistance of a person or device, or need extra time when eating? No. EATING - SCORE: 7-IND GROOMING: GROOMING - STEP 1: Does the patient require the assistance of a person or device, or need extra time when grooming? No. GROOMING - SCORE: 7-IND BATHING: Activity did not occur on this shift BATHING - SCORE: 0-UNK DRESSING - UPPER BODY: Activity did not occur on this shift ARTICLES SCORE Total number of steps: 0 DRESSING - UPPER BODY - SCORE: 0-UNK DRESSING - LOWER BODY: Activity did not occur on this shift ARTICLES SCORE Total number of steps: 0 DRESSING - LOWER BODY - SCORE: 0-UNK TOILETING: TOILETING - STEP 1: Does the patient require the assistance of a person or device, or need extra time with toileting? No. TOILETING - SCORE: 7-IND BLADDER MANAGEMENT: BLADDER MANAGEMENT - STEP 1: Does the patient control the bladder completely and intentionally without equipment or devices or med ications, and is always continent? Yes. BLADDER MANAGEMENT - SCORE: 7-IND BLADDER MANAGEMENT - FREQUENCY OF ACCIDENTS: BLADDER MANAGEMENT(FA) - STEP 1: How many accidents has the patient had during the current shift? 0 BOWEL MANAGEMENT: BOWEL MANAGEMENT - STEP 1: Does the patient control bowels completely and intentionally without equipment devices or medications AND is always continent? Yes. BOWEL MANAGEMENT - SCORE: 7-IND BOWEL MANAGEMENT - FREQUENCY OF ACCIDENTS: BOWEL MANAGEMENT(FA) - STEP 1: How many accidents has the patient had during the current shift? 0 TRANSFERS: BED, CHAIR, WHEELCHAIR: TRANSFERS: BED, CHAIR, WHEELCHAIR - STEP 1: Does the patient require assistance of a person or device, or need extra time with bed, chair, or whe elchair transfers? Yes. TRANSFERS: BED, CHAIR, WHEELCHAIR - STEP 2: Does the patient require the assistance of a helper? Yes. TRANSFERS: BED, CHAIR, WHEELCHAIR - STEP 3: How much assistance does the patient require from the helper? Only supervision TRANSFERS: BED, CHAIR, WHEELCHAIR - SCORE: 5-SUP TRANSFERS: TOILET: TRANSFERS: TOILET - STEP 1: Does the patient require the assistance of a person or device, or need extra time with toilet transfe rs? Yes. TRANSFERS: TOILET - STEP 2: Does the patient require the assistance of a helper? Yes. TRANSFERS: TOILET - STEP 3: How much assistance does the patient require from the helper? Only supervision, cuing, coaxing, OR he lp to set out transfer equipment or to lock brakes and/or lift foot rests TRANSFERS: TOILET - SCORE: 5-SUP TRANSFERS: SHOWER: Activity did not occur on this shift TRANSFERS: SHOWER - SCORE: 0-UNK TRANSFERS: TUB: Activity did not occur on this shift TRANSFERS: TUB - SCORE: 0-UNK LOCOMOTION: WALK: Activity did not occur on this shift LOCOMOTION: WALK - SCORE: 0-UNK LOCOMOTION: WHEELCHAIR: Activity did not occur on this shift LOCOMOTION: WHEELCHAIR - SCORE: 0-UNK COMPREHENSION: COMPREHENSION - SCORE: 0-UNK EXPRESSION EXPRESSION - SCORE: 0-UNK SOCIAL INTERACTION: SOCIAL INTERACTION - SCORE: 0-UNK PROBLEM SOLVING: PROBLEM SOLVING - SCORE: 0-UNK MEMORY: MEMORY - SCORE: 0-UNK SIGNATURE PANEL: The following modified sections: Eating - Score, Grooming - Score, Bathing - Score, Dressing - Upper Body - Score, Dressing - Lower Body - Score, Toileting - Score, Bladder Management - Score, Bowel Man agement - Score, Transfers: Bed, Chair, Wheelchair - Score, Transfers: Toilet - Score, Transfers: Iraida wer - Score, Transfers: Tub - Score, Locomotion: Walk - Score, Locomotion: Wheelchair - Score, Compre hension - Score, Expression - Score, Social Interaction - Score, Problem Solving - Score, Memory - Sc ore were [electronically] signed by Shari Fernandez CNA on TueJun 30 2018 16:28:28 GMT-0600 (Centra l Standard Time)
[2018-06-30] MEDS: HYDROCODONE/APAP 7.5/325 MG TAB PO PRN (19:36)
[2018-06-30] MEDS: MELATONIN 3 MG TABLET PO PRN (19:36)
[2018-07-01] MEDS: ASPIRIN 81 MG CHEWABLE TABLET PO SCH (07:30)
[2018-07-01] MEDS: DULOXETINE 20 MG CAP PO SCH (07:30)
[2018-07-01] MEDS: GABAPENTIN 300 MG CAP PO SCH (07:30)
[2018-07-01] MEDS: AMLODIPINE 5 MG TAB PO SCH (07:30)
[2018-07-01] MEDS: PANTOPRAZOLE 40MG TABLET PO SCH (07:31)
[2018-07-01 07:32] VITALS: BP 124/73
[2018-07-01] MEDS: JUVEN PACKET PO SCH (08:00)
[2018-07-01] MEDS: PROMOD 30 ML DOSE PO SCH (08:00)
[2018-07-01 09:34] VITALS: TEMP 96.8
--- NOTE | 2018-07-07 17:13 | R.DS ---
FACILITY [facility] MR# [id number] NAME GARY RANDALL ADDRESS [address] [facility] APARTMENT [address] [place] [address] [address] [address] PHONE DATE OF 1955 AGE 62 SSN# [id number] GENDER Male DEXTERITY Right-handed MARITAL STATUS Unknown RACE White ENCOUNTER PHYSICIAN Dr. David Sosa M.D. REFERRING DOCTOR Arthur Oconnor REFERRING FACILITY [facility] DISCHARGE DIAGNOSIS: - Amputation of Limb 05 - Unilateral Lower Limb Above the Knee (AK) (05.3) Peripheral vascular disease. 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 is a 62 yo Right-handed white male.On 06/05/2018 he was admitted to [facility] and underwent emergency surgery for Peripheral vascular disease (Amputation of Limb(Unilater al Lower Limb Above the Knee (AK))) by Arthur Oconnor.Pre-morbidly, Pt. was independent/mod-I in Self- Care and Sphincter Control; and he had good Sphincter Control.Currently, he has deficits of Safety Aw areness, Transfers Control, Communication, Social Cognition, Balance, Endurance, Locomotion, and Self -Care.Pt. is now referred to [facility] for acute in-patient rehabilitation in order to maximize patient's functional independence in activities of daily living, strength, ROM, an d mobility.Admission did not happen within 48 hour window due to infection in Right skin graft. [facility] staff at [facility] re-evaluated and patient is now ready for DC. Patients physical and medical st atus otherwise has not changed and he is still in need of aggressive inpatient therapy.- Rehab Goal Patient has realistic goal of being discharged at assistance level 6-Ganga to reside at Home with Pt self. HOSPITAL COURSE: DIET - LIQUID TEXTURE: On 06/13/2018 Pt was upgraded to Regular Diet - Liquid Texture. DIET - SOLID TEXTURE: On 06/13/2018 Pt was upgraded to Regular Diet - Solid Texture. DIET TYPE: On 06/13/2018 Pt was upgraded to Regular Diet Type. TUBE FEED: On 06/13/2018 Pt was changed to N/A Tube Feed. WEIGHT BEARING PRECAUTION: On 06/13/2018 the following precautions were added for the patient: Weight Bearing Precaution - NWB r ight LE. On 06/16/2018 the following precautions were added for the patient: Weight Bearing Precaution - NWB right LE. On 06/19/2018 the following precautions were removed for the patient: Weight Bearing Precaution - NW B right LE. On 06/20/2018 the following precautions were added for the patient: Weight Bearing Precaution - NWB right LE. DISCHARGE PHYSICAL EXAM - Gen Alert and awake Lying in bed No apparent distress Oriented to: person, time, and place - Skin Right AKA bandage in place with good hemostasis. Normacephalic - Eyes No abnormalities - ENMT No abnormalities - Neck No abnormalities - CVS RRR - Chest No abnormalities - Resp Clear to auscultation - Abd +bowel sounds - GI nondistended Deferred - No abnormalities - Ext Right AKA stump with good hemostasis. - Neuro No focal deficits - Psych No abnormalities FUNCTIONAL STATUS: - Self-Care A. Eating 7-Ind B. Grooming 6-Ganga C. Bathing 6-Ganga D. Dressing - Upper 7-Ind E. Dressing - Lower 5-sup F. Toileting 6-Ganga - Sphincter Control G: Bladder control 7-Ind H: Bowel control 7-Ind - Transfers Control I. Bed/Chair/Wheelchair 6-Ganga J. Toilet 6-Ganga K. Tub/Shower 6-Ganga - Locomotion L. Walk/Wheelchair (B) 6-Ganga M. Stairs 0-ADNO - Communication N. Comprehension (B) 5-sup O. Expression (B) 5-sup - Social Cognition P. Social Interaction 5-sup Q. Problem Solving 5-sup R. Memory 5-sup - Endurance Fair - Balance Poor - Safety Awareness Fair DISCHARGE INSTRUCTIONS: - N/A Eliquis 2.5 mg twice daily and aspirin 81 mg daily. DISCHARGE PLAN, FOLLOW UP CARE PROVISIONS: - Estimated Length of Stay (days) 11. - Consensus on plan Discharge plan has been discussed with primary caregiver. Patient/Family is in agreement with the vinh n. Primary caregiver is in agreement with the plan. - Patient/Family Goals Return home with assistance. - Planned Living Setting Upon Discharge Home, to live alone. Primary caregiver: Pt self. SIGNATURE PANEL: (CDT)
== END 2018-07-01 10:45 | disposition home health service (06) | DRG 301 ==
LOC: 5TH 06-15 17:11
PROVIDERS: ADMIT Psychiatry & Neurology Neurology with Special Qualifications in Child Neurology; ATTEND Psychiatry & Neurology Neurology with Special Qualifications in Child Neurology
DX: I73.9 Peripheral vascular disease, unspecified (principal); I12.9 Hypertensive chronic kidney disease with stage 1 through stage 4 chronic kidney disease, or unspecified chronic kidney disease; N18.9 Chronic kidney disease, unspecified
CPT/HCPCS: 36415; 80048; 81001; 82040; 82274; 83735; 84134; 85014; 85018; 85025; 87086; 87088; 97110; 97112; 97116; 97150; 97162; 97167; 97530; 97542; J1644

== ENCOUNTER 2020-04-30 10:56 | Emergency (ER) | payer OTHER, SELFPAY ==
--- OUTSIDE RECORDS SUMMARY | 2020-04-30 11:06 | XMS REPORT | Clinical Summary ---
:1955 Author Organization [facility] Address [address] [place] [address] Care Team Providers Name Role Phone Shaila Primary Care Provider Antonio Talamantes Unavailable Allergies Active Allergy Reactions Severity Noted Date Comments Tramadol 11/17/2017 Passed out Medications Medication Sig Dispensed Refills Start Date End Date Status pantoprazole (PROTONIX) Take 1 tablet (40 60 tablet 1 02/17/20 18 Active 40 MG tablet mg total) by mouth daily. aspirin 81 MG EC tablet Take 81 mg by 0 Active mouth daily. Active Problems Problem Noted Date Colorectal cancer 09/25/2018 Rectal cancer metastasized to liver 09/25/2018 Rectal cancer 05/27/2018 HTN (hypertension) 05/19/2018 DVT, lower extremity 05/19/2018 Rectal cancer 02/08/2018 Critical lower limb ischemia 01/24/2018 Ischemia 01/23/2018 PVD (peripheral vascular disease) 11/17/2017 Peripheral vascular disease 11/16/2017 CKD (chronic kidney disease) stage 3, GFR 30-59 ml/min 04/25/2015 Overview: Baseline creatinine ~1.6-1.8 since 2016 Benign essential HTN ETOH abuse Tobacco abuse Immunizations Name Administration Dates Next Due Influenza Four-QIV Non-PF 5+ YR 02/07/2018 Family History Medical History Relation Name Comments Heart disease Brother Heart disease Father No Known Problem Mother Kidney disease Sister Relation Name Status Comments Brother Father Mother Sister Social History Tobacco Use Types Packs/Day Years Used Date Former Smoker Cigarettes 1 30 Smokeless Tobacco: Former User Tobacco Cessation: Ready to Quit: Yes Alcohol Use Drinks/Week oz/Week Comments No 3 Shots of liquor 3.0 # drinks of li qor/day Alcohol Habits Answer Date Recorded How often do you have a drink containing alcohol? Never 05/17/2018 How many drinks containing alcohol do you have on a typical Not asked day when you are drinking? How often do you have six or more drinks on one occasion? No t asked Sex Assigned at Date Recorded Not on file Last Filed Vital Signs Not on file Plan of Treatment Health Maintenance Due Date Last Done Comments PNEUMOCOCCAL VACCINE 0-64 YRS (1 10/24/1961 of 3 - PCV13) HEPATITIS B VACCINE (1 of 3 - Risk 10/24/1974 3-dose series) COLON CANCER SCREENING ANNUAL FOBT 09/26/2019 09/25/2018, 0 09/25/2018, 05/27/2018, Additional history exists INFLUENZA VACCINE (#1) 2019 11/23/2018, 02/07/2018 DEPRESSION SCREENING (12+) 04/25/2020 LIPID PANEL 05/18/2021 05/18/2018, 11/20/2017 Implants Implanted Type Area Television Production Technician Device Shelf Model / Identifier Expiration Serial / Date Lot Mynxgrip Cardiovascular Left: CARDINAL 11/23/2019 [id number] / Implanted: Qty: 1 on 01/25/2018 by Timothy Kaye MD at [facility] [employer] / [id number] Description:LFA Flseal Vhsd Full Strlprep 10ml [id number] - [id number] Cement/Fi ller/Adhesive Right: Leg BUCHANAN:BIOSCI 04/11/2019 [id number] / Implanted: Qty: 1 on 11/17/2017 by Arthur Xiao MD at [facility] / [id number] Floseal Vhsd Full Strlprep 5ml [id number] - [id number] Cement/Fi ller/Adhesive Right: Leg BUCHANAN:BIOSCI 10/04/2019 [id number] / Implanted: Qty: 1 on 05/18/2018 by Arthur Xiao MD at [facility] / [id number] Description:Floseal Hemostatic Matrix Floseal Vhsd Full Strlprep 5ml [id number] - [id number] Cement/Fi ller/Adhesive Right: BUCHANAN:BIOSCI 11/05/2019 [id number] / Implanted: Qty: 1 on 06/06/2018 by Arthur Xiao MD at [facility] Groin / [id number] Grft Eptfe-Heparin Rng [id number] - [id number] Graft/P atch Right: PRINCE GORE & 08/08/2021 [id number] / Implanted: Qty: 1 on 11/17/2017 by rAthur Xiao MD at [facility] Leg ASSC:MED PRDT [id number] / Grft Eptfe-Heparin Rng [id number] - [id number] Graft/P atch Right: PRINCE OLIVIER & 01/01/2022 [id number] / Implanted: Qty: 1 on 05/18/2018 by Arthur Xiao MD at [facility] Leg ASSC:MED PRDT [id number] / Description:GORE PROPATEN VASCULAR GRAFT REMOVABLE RING Grft Vsc Sealptfe [id number] - [id number] Graft/Patch Right: TERUMO:CARDIOVASC SYS 03/24/2021 [id number] / Implanted: Qty: 1 on 06/06/2018 by Arthur Xiao MD at [facility] Groin / [id number] Results Not on fileafter 04/30/2019 Advance Directives For more information, please contact: [phone] Code Status Date Activated Date Inactivated Comments Full Code 09/25/2018 3:16 PM 09/29/2018 12:39 PM This code status was determined by: Patient Full Code 09/25/2018 3:16 PM 09/25/2018 3:16 PM This code status was determined by: Patient Full Code 06/05/2018 12:01 PM 06/15/2018 5:48 PM This code status was determined by: Patient Full Code 06/05/2018 4:25 AM 06/05/2018 12:01 PM This code status was determined by: Patient Full Code 05/18/2018 6:21 PM 06/05/2018 3:44 AM This code status was determined by: Patient Name Relationship Healthcare Agent Relationship Co mmunication Armando Stewart Friend Health Care Agent [phone] ( Home) Manuel Stewart Relative First Alternate Health Care Agen t Calvin Ponce Friend Second Alternate Health Care Age nt
--- OUTSIDE RECORDS SUMMARY | 2020-04-30 11:13 | XMS REPORT | Summary of Care ---
:1955 Author Organization [facility] - Health Address [address] [place] [address] Care Team Providers Name Role Phone Uriel Langford MD Primary Care Provider Encounter Details Date Type Department Care Team Description 01/17/2020 Orders Only [facility] Doctor Unassigned, No [address] [facility] [place] [address] [address] [place] [address] Allergies Active Allergy Reactions Severity Noted Date Comments Tramadol Other - See comments 05/24/2017 Syncope ended up in hospital documented as of this encounter (statuses as of 02/12/2020) Medications Medication Sig Dispensed Refills Start Date End Date Status ferrous sulfate 325 mg Take 325 mg by 0 Active (65 mg iron) tablet mouth 3 (three) times daily with meals. aspirin 81 mg EC Take 1 tablet by 0 04/12/2016 Active tablet mouth daily. docusate 100 mg Take 1 capsule by 60 capsule 0 05/14/2016 Active capsule mouth every 12 (twelve) hours. acetaminophen-codeine Take 1 tablet by 30 tablet 0 05/14/2016 Active (TYLENOL-CODEINE #3) mouth every 4 300-30 mg tablet (four) hours as needed for Pain (scale 7-10). lisinopril 20 mg Take 1 tablet by 90 tablet 1 05/24/2017 Active tablet mouth daily. warfarin 5 mg tablet Take 1 tablet by 90 tablet 1 05/24/2017 Active mouth every evening. amLODIPine 5 mg tablet Take 5 mg by 0 Active mouth daily. gabapentin 100 mg Take 100 mg by 0 Active capsule mouth 3 (three) times daily. pantoprazole 40 mg EC Take 40 mg by 0 Active tablet mouth daily. gabapentin (NEURONTIN) Take 1 capsule by 30 capsule 0 05/05/19 19 Active 100 mg mouth 3 (three) capsuleIndications: times daily. Left foot pain, Peripheral vascular disease of lower extremity cilostazol 100 mg Take 1 tablet by 60 tablet 0 05/05/2018 Active tabletIndications: mouth daily. Left foot pain, Peripheral vascular disease of lower extremity documented as of this encounter (statuses as of 02/12/2020) Active Problems Problem Noted Date Peripheral vascular disease 05/13/2016 History of blood clots Overview: has had three in right leg, also has rey nt in right leg. Smoking HTN (hypertension) Pulmonary fibrosis documented as of this encounter (statuses as of 02/12/2020) Immunizations Name Administration Dates Next Due Influenza Virus Vaccine 02/07/2018 Influenza Virus Vaccine Quad .5 mL IM 6+ MO 11/23/2018 documented as of this encounter Social History Tobacco Use Types Packs/Day Years Used Date Former Smoker Cigarettes 1.5 39 Quit: 06/2018 Smokeless Tobacco: Never Used Alcohol Use Drinks/Week oz/Week Comments Not Currently 14 Shots of liquor 14.0 Havent had a drink in 3 months- 03/07/2019- [facility] Social Isolation Answer Date Recorded In a typical week, how many times do you Once a week 03/07/2019 talk on the phone with family, friends, or neighbors? How often do you get together with friends Never 03/07/2019 or relatives? How often do you attend episcopal or mandaeism More than 4 time s per year 03/07/2019 services? Do you belong to any clubs or organizations No 03/07/2019 such as episcopal groups, unions, fraternal or athletic groups, or school groups? How often do you attend meetings of the Never 03/07/2019 clubs or organizations you belong to? Are you now , , , 03/07/2019 , never or living with a partner? Physical Activity Answer Date Recorded On average, how many days per week do you engage in moderate to 0 days 03/07/2019 strenuous exercise (like walking fast, running, jogging, dancing, swimming, biking, or other activities that cause a light or heavy sweat)? On average, how many minutes do you engage in exercise at th is 0 min 03/07/2019 level? Stress Answer Date Recorded Do you feel stress - tense, restless, nervous, or To some ex tent 03/07/2019 anxious, or unable to sleep at night because your mind is troubled all the time - these days? Education Answer Date Recorded What is the highest level of school you have High school gra mal 03/07/2019 completed or the highest degree you have received? Financial Resource Strain Answer Date Recorded How hard is it for you to pay for the very basics like food, Very hard 03/07/2019 housing, medical care, and heating? Intimate Partner Violence Answer Date Recorded Within the last year, have you been afraid of your partner o r No 03/07/2019 ex-partner? Within the last year, have you been humiliated or emotionall y Not asked abused in other ways by your partner or ex-partner? Within the last year, have you been kicked, hit, slapped, or No 03/07/2019 otherwise physically hurt by your partner or ex-partner? Within the last year, have you been raped or forced to have No 03/07/2019 any kind of sexual activity by your partner or ex-partner? Food Insecurity Answer Date Recorded Within the past 12 months, you worried that your food would Often true 03/07/2019 run out before you got money to buy more. Within the past 12 months, the food you bought just didn't O ften true 03/07/2019 last and you didn't have money to get more. Transportation Needs Answer Date Recorded In the past 12 months, has lack of transportation kept you f rom Yes 03/07/2019 medical appointments or from getting medications? In the past 12 months, has lack of transportation kept you f rom No 03/07/2019 meetings, work, or getting things needed for daily living? Sex Assigned at Date Recorded Not on file COVID-19 Exposure Response Date Recorded In the last month, have you been in contact with No / Unsure 01/09/2020 2:06 PM CDT someone who was confirmed or suspected to have Coronavirus / COVID-19? documented as of this encounter Last Filed Vital Signs Not on filedocumented in this encounter Plan of Treatment Health Maintenance Due Date Last Done Comments HEPATITIS C (HCV) SCREEN 1955 DTaP,Tdap,and Td Vaccines ( - 10/24/1974 Tdap) COLON CANCER SCREENING ANNUAL 10/24/2005 FIT/FOBT COLON CANCER SCREENING FIT DNA 10/24/2005 EVERY 3 YEARS COLON CANCER SCREENING 10/24/2005 SIGMOIDOSCOPY EVERY 5 YEARS Zoster Recombinant Vaccine 10/24/2005 (SHINGRIX) (1 of 2) LUNG CANCER SCREEN: 10/24/2010 Recommended for age 55-80 with 30 + pack year history INFLUENZA VACCINE (#1) 2019 11/23/2018, 02/07/2018 Depression Screening 01/08/2021 01/09/2020 COLONOSCOPY 02/07/2028 02/06/2018 Colorectal Cancer Screening 02/07/2028 PNEUMOCOCCAL 0-64 YEARS Aged Out No longe r eligible based COMBINED SERIES on patient's age to complete this to [facility] documented as of this encounter Goals Goal Patient Goal Associated Recent Patient-Stated? Author Type Problems Progress To learn how General Yes Shashank, to walk Raysa Weber PT again. documented as of this encounter Implants Implanted Type Area Hog Cutter Device Shelf Expiration Model / Identifier Date Serial / Lot Balloon Catheter, Lutonix 130cm 5x80 Dcp Bard #[id number] - [id number] Bard 09/03/2017 [id number] / Implanted: Qty: 1 on 05/13/2016 by Xavier Escobar MD at [facility] 0 / [id number] Angio-Seal Evolution Vascular Closure Device [employer] #[id number] - [id number] [employer] 02/22/2017 [id number] / Implanted: Qty: 1 on 05/13/2016 by Xavier Escobar MD at [facility] 0 / [id number] documented as of this encounter Procedures Procedure Name Priority Date/Time Associated Diagnosis Comme nts HOME HEALTH - OTHER Routine 01/17/2020 12:01 AM CDT documented in this encounter Results Not on filedocumented in this encounter Insurance Payer Benefit Plan / Subscriber ID Effective Dates Phone Addre ss Type Group MEDICARE MEDICARE PART [id number] 2014-[place] [phone] [place]. ABEBE Medicare A t 2 [id number] BERENICE CRUMP [id number] documented as of this encounter
--- OUTSIDE RECORDS SUMMARY | 2020-04-30 11:13 | XMS REPORT | Summary of Care ---
:1955 Author Organization [facility] Address [address] [place] [address] Care Team Providers Name Role Phone Uriel Langford MD Primary Care Provider Reason for Visit Reason Comments Assessment Encounter Details Date Type Department Care Team Description 03/19/2020 Telephone [facility] Uriel Pike MD Assessment - [address] [place] [address] [place] [address] [phone] Allergies Active Allergy Reactions Severity Noted Date Comments Tramadol Other - See comments 05/24/2017 Syncope ended up in hospital documented as of this encounter (statuses as of 03/19/2020) Medications Medication Sig Dispensed Refills Start Date [...] as of this encounter (statuses as of 03/19/2020) Active Problems Problem Noted Date Peripheral vascular disease 05/13/2016 History of blood clots Overview: has had three in right leg, also has rey nt in right leg. Smoking HTN (hypertension) Pulmonary fibrosis documented as of this encounter (statuses as of 03/19/2020) Immunizations Name Administration Dates Next Due Influenza [...] had a drink in 3 months- 03/07/2019- [facility] Social Isolation Answer Date Recorded In a typical week, how many times do you Once a week 03/07/2019 talk on the phone with family, friends, or neighbors? How often do you get together with friends Never 03/07/2019 or relatives? How often do you attend samaritan or anglican More than 4 time s per year 03/07/2019 services? Do you belong to any clubs or organizations No 03/07/2019 such as samaritan groups, unions, fraternal or athletic groups, or [...] of school you have High school gra duate 03/07/2019 completed or the highest degree you [...] Assigned at Date Recorded Not on file documented as of this encounter Last Filed Vital Signs Not on filedocumented in this encounter Miscellaneous Notes Telephone Encounter - Uriel Langford MD - 03/19/2020 3:48 PM CSTOK elephone Encounter - Kaelyn Avila LVN - 03/19/2020 2:32 PM CSTI called patient back he said he found the Lisinopril but he has not been taking it, he does not have Amlodipine and says he never has. He took Lisinopril 20mg when he got home and will take daily now. The PT will be there Tuesday and check BP and he will let us know how it is then. notified. elephone Encounter - Ashley Weems - 03/19/2020 1:38 PM CSTPt calling back, patient stated the medications he takes is warfarin and lisinopril. elephone Encounter - Kaelyn Avila LVN - 03/19/2020 10:52 AM CSTI called patient he is not sure what BP medication he is taking will be home after 1pm I will call him back then. notified. elephone Encounter - Martina Moore - 03/19/2020 8:58 AM CSTHeather with [facility] is calling in regards to patient bp yesterday 142/98. Kay states patient thinks he is taking warfarin for bp issues and also Kay stating medication is . documented in this encounter Plan of Treatment Health Maintenance Due Date Last Done Comments HEPATITIS C (HCV) SCREEN 1955 DTaP,Tdap,and Td Vaccines (1 - 10/24/1974 Tdap) COLON CANCER SCREENING ANNUAL [...] on patient's age to complete this to pic documented as of this encounter Goals Goal Patient Goal Associated Recent Patient-Stated? Author Type Problems Progress To learn how General Yes Shashank, to walk Raysa Weber, PT again. documented as of this encounter Implants Implanted Type Area Rehab Aide Device Shelf Expiration Model / Identifier Date Serial / Lot Balloon Catheter, Lutonix 130cm 5x80 Dcp Bard #[id number] - [id number] Bard 09/03/2017 [id number] / Implanted: Qty: 1 on 05/13/2016 by Xavier Escobar MD at [facility] 0 / [id number] Angio-Seal Evolution Vascular Closure Device [employer] #[id number] - S0 [employer] 02/22/2017 [id number] / Implanted: Qty: 1 on 05/13/2016 by Xavier Escobar MD at [facility] 0 / [id number] documented as of this encounter Results Not on filedocumented in this encounter Insurance Payer Benefit Plan / Subscriber ID Effective Dates Phone Addre ss Type Group MEDICARE MEDICARE PART [id number] 2014-Mile [phone] [address] Medicare A t 2 [id number] BERENICE CRUMP [id number] documented as of this encounter
--- OUTSIDE RECORDS SUMMARY | 2020-04-30 11:13 | XMS REPORT | Summary of Care ---
:1955 Author Organization [facility] - Health Address [address] [place] [address] Care Team Providers Name Role Phone Uriel Langford MD Primary Care Provider Encounter Details Date Type Department Care Team Description 01/31/2020 Orders Only [facility] Doctor Unassigned, No [address] [facility] [place] [address] [address] [place] [address] Allergies Active Allergy Reactions Severity Noted Date [...] or relatives? How often do you attend restorationism or protestant More than 4 time s per year 03/07/2019 services? Do you belong to any clubs or organizations No 03/07/2019 such as restorationism groups, unions, fraternal or athletic groups, or [...] on patient's age to complete this to [facility] documented as of this encounter Goals Goal Patient Goal Associated Recent Patient-Stated? Author Type Problems Progress To learn how General Yes Shashank, to walk Raysa Weber PT again. documented as of this encounter Implants Implanted Type Area Jewelry Making Instructor Device Shelf Expiration Model / Identifier Date Serial / Lot Balloon Catheter, Lutonix 130cm 5x80 Dcp Bard #[id number] - [id number] Bard 09/03/2017 [id number] / Implanted: Qty: 1 on 05/13/2016 by Xavier Escobar MD at [facility] 0 / [id number] Angio-Seal Evolution Vascular Closure Device [employer] #[id number] - S0 [employer] 02/22/2017 [id number] / Implanted: Qty: 1 on 05/13/2016 by Xavier Escobar MD at [facility] 0 / [id number] documented as of this encounter Procedures Procedure Name Priority Date/Time Associated Diagnosis Comme nts HOME HEALTH - OTHER Routine 01/31/2020 12:01 AM CDT documented in this encounter Results Not on filedocumented in this encounter Insurance Payer Benefit Plan / Subscriber ID Effective Dates Phone Addre ss Type Group MEDICARE MEDICARE PART [id number] 2014-Mile [phone] [address] Medicare A t 2 [id number] BEREN[place] CRUMP [id number] documented as of this encounter
--- OUTSIDE RECORDS SUMMARY | 2020-04-30 11:13 | XMS REPORT | Summary of Care ---
:1955 Author Organization [facility] - Health Address [address] [place] [address] Care Team Providers Name Role Phone Uriel Langford MD Primary Care Provider Encounter Details Date Type Department Care Team Description 01/12/2020 Orders Only [facility] Doctor Unassigned, No [address] [place] [address] [address] [place] [address] Allergies Active Allergy Reactions Severity Noted Date Comments Tramadol Other - See comments 05/24/2017 Syncope ended up in hospital documented as of this encounter (statuses as of 03/13/2020) Medications Medication Sig Dispensed Refills Start Date [...] as of this encounter (statuses as of 03/13/2020) Active Problems Problem Noted Date Peripheral vascular disease 05/13/2016 History of blood clots Overview: has had three in right leg, also has rey nt in right leg. Smoking HTN (hypertension) Pulmonary fibrosis documented as of this encounter (statuses as of 03/13/2020) Immunizations Name Administration Dates Next Due Influenza [...] had a drink in 3 months- 03/07/2019- [facility] Social Isolation Answer Date Recorded In a typical week, how many times do you Once a week 03/07/2019 talk on the phone with family, friends, or neighbors? How often do you get together with friends Never 03/07/2019 or relatives? How often do you attend mosque or jainism More than 4 time s per year 03/07/2019 services? Do you belong to any clubs or organizations No 03/07/2019 such as mosque groups, unions, fraternal or athletic groups, or [...] on patient's age to complete this to [facility] documented as of this encounter Goals Goal Patient Goal Associated Recent Patient-Stated? Author Type Problems Progress To learn how General Yes Shashank, to walk Raysa Weber PT again. documented as of this encounter Implants Implanted Type Area Nutritional Health Coach Device Shelf Expiration Model / Identifier Date Serial / Lot Balloon Catheter, Lutonix 130cm 5x80 Dcp Bard #[id number] - [id number] Bard 09/03/2017 [id number] / Implanted: Qty: 1 on 05/13/2016 by Xavier Escobar MD at [facility] 0 / [id number] Angio-Seal Evolution Vascular Closure Device [employer] #C6 [id number] - S0 [employer] 02/22/2017 [id number] / Implanted: Qty: 1 on 05/13/2016 by Xavier Escobar MD at [facility] 0 / [id number] documented as of this encounter Procedures Procedure Name Priority Date/Time Associated Diagnosis Comme [facility] HOME HEALTH 485 Routine 01/12/2020 12:01 AM CDT documented in this encounter Results Not on filedocumented in this encounter Insurance Payer Benefit Plan / Subscriber ID Effective Dates Phone Addre ss Type Group MEDICARE MEDICARE PART [id number] 2014-Mile [phone] [address] Medicare A t 2 [id number] BEREN[place] CRUMP [id number] documented as of this encounter
--- OUTSIDE RECORDS SUMMARY | 2020-04-30 11:13 | XMS REPORT | Summary of Care ---
:1955 Author Organization [facility] Address [address] [place] [address] Care Team Providers Name Role Phone Uriel Langford MD Primary Care Provider Reason for Visit Reason Comments Assessment Encounter Details Date Type Department Care Team Description 03/18/2020 Telephone [facility] Family Medicine Uriel Pike MD Assessment - [address] [place] [address] [place] [address] [phone] Allergies Active Allergy Reactions Severity Noted Date Comments Tramadol Other - See comments 05/24/2017 Syncope ended up in hospital documented as of this encounter (statuses as of 03/18/2020) Medications Medication Sig Dispensed Refills Start Date [...] as of this encounter (statuses as of 03/18/2020) Active Problems Problem Noted Date Peripheral vascular disease 05/13/2016 History of blood clots Overview: has had three in right leg, also has rey nt in right leg. Smoking HTN (hypertension) Pulmonary fibrosis documented as of this encounter (statuses as of 03/18/2020) Immunizations Name Administration Dates Next Due Influenza [...] had a drink in 3 months- 03/07/2019- [facility] Social Isolation Answer Date Recorded In a typical week, how many times do you Once a week 03/07/2019 talk on the phone with family, friends, or neighbors? How often do you get together with friends Never 03/07/2019 or relatives? How often do you attend temple or yarsani More than 4 time s per year 03/07/2019 services? Do you belong to any clubs or organizations No 03/07/2019 such as temple groups, unions, fraternal or athletic groups, or [...] this encounter Miscellaneous Notes Telephone Encounter - Avila Kaelyn Shay, STAFF NURSE ANESTHETIST - 03/18/2020 1:57 PM CSTPt has not checked BP today but will have it checked this afternoon when PT comes in and he will call afterwards. elephone Encounter - Santa Slade - 03/18/2020 1:42 PM COMMISSIONER PUBLIC WORKS Patient is returing a call regarding the 03/17/20 encounter and is requesting a call back. ISSIONER PUBLIC WORKS documented in this encounter Plan of Treatment [...] on patient's age to complete this to [facility] documented as of this encounter Goals Goal Patient Goal Associated Recent Patient-Stated? Author Type Problems Progress To learn how General Yes Encarnacion, to walk [facility], PT again. documented as of this encounter Implants Implanted Type Area Welder Production Line Combination Device Shelf Expiration Model / Identifier Date Serial / Lot Balloon Catheter, Lutonix 130cm 5x80 Dcp Bard #[id number] - [id number] Bard 09/03/2017 [id number] / Implanted: Qty: 1 on 05/13/2016 by Xavier Escobar MD at [facility] 0 / [id number] Angio-Seal Evolution Vascular Closure Device [employer] #C6 [id number] - S0 [facility] [employer] 02/22/2017 [id number] / Implanted: Qty: 1 on 05/13/2016 by Xavier Escobar MD at [facility] 0 / [id number] documented as of this encounter Results Not on filedocumented in this encounter Insurance Payer Benefit Plan / Subscriber ID Effective Dates Phone Addre ss Type Group MEDICARE MEDICARE PART [id number] 2014-Mile [phone] [address] Medicare A 2 [id number] BEREN[place] CRUMP [id number] documented as of this encounter
--- OUTSIDE RECORDS SUMMARY | 2020-04-30 11:13 | XMS REPORT | Summary of Care ---
:1955 Author Organization [facility] Address [address] [place] [address] Care Team Providers Name Role Phone Uriel Langford MD Primary Care Provider Reason for Visit Reason Comments Assessment Encounter Details Date Type Department Care Team Description 03/18/2020 Telephone [facility] Family Medicine Uriel Pike MD Assessment - [address] [place] [address] [place] [address] [phone] Allergies Active Allergy Reactions Severity Noted Date [...] had a drink in 3 months- 03/07/2019- [facility] Social Isolation Answer Date Recorded In a typical week, how many times do you Once a week 03/07/2019 talk on the phone with family, friends, or neighbors? How often do you get together with friends Never 03/07/2019 or relatives? How often do you attend baptism or temple More than 4 time s per year 03/07/2019 services? Do you belong to any clubs or organizations No 03/07/2019 such as baptism groups, unions, fraternal or athletic groups, or [...] Notes Telephone Encounter - Avila Kaelyn Shay, ALLERGY AND IMMUNOLOGY CHIEF - 03/18/2020 1:57 PM CSTPt has not checked BP today but will have it checked this afternoon when PT comes in and he will call afterwards. elephone Encounter - Santa Slade - 03/18/2020 1:42 PM JOY OPERATOR HELPER Patient is returing a call regarding the 03/17/20 encounter and is requesting a call back. OPERATOR HELPER documented in this encounter Plan of Treatment [...] on patient's age to complete this to [facility] documented as of this encounter Goals Goal Patient Goal Associated Recent Patient-Stated? Author Type Problems Progress To learn how General Yes Encarnacion, to walk [facility], PT again. documented as of this encounter Implants Implanted Type Area Wood Miller Device Shelf Expiration Model / Identifier Date Serial / Lot Balloon Catheter, Lutonix 130cm 5x80 Dcp Bard #[id number] - [id number] Bard 09/03/2017 [id number] / Implanted: Qty: 1 on 05/13/2016 by Xavier Escobar MD at [facility] 0 / [id number] Angio-Seal Evolution Vascular Closure Device [employer] #C6 [id number] - S0 [employer] 02/22/2017 [id number] / Implanted: Qty: 1 on 05/13/2016 by Xavier Escobar MD at [facility] 0 / [id number] documented as of this encounter Results Not on filedocumented in this encounter Insurance Payer Benefit Plan / Subscriber ID Effective Dates Phone Addre ss Type Group MEDICARE MEDICARE PART [id number] 2014-Mile [phone] [address] Medicare A 2 [id number] [place]EN[place] CRUMP [id number] documented as of this encounter
--- OUTSIDE RECORDS SUMMARY | 2020-04-30 11:13 | XMS REPORT | Summary of Care ---
:1955 Author Organization [facility] Address [address] [place] [address] Care Team Providers Name Role Phone Uriel Langford MD Primary Care Provider Reason for Visit Reason Comments Assessment Encounter Details Date Type Department Care Team Description 03/17/2020 Telephone [facility] Family Medicine Uriel Pike MD Assessment - [address] [place] [address] [place] [address] [phone] Allergies Active Allergy Reactions Severity Noted Date [...] had a drink in 3 months- 03/07/2019- [facility] Social Isolation Answer Date Recorded In a typical week, how many times do you Once a week 03/07/2019 talk on the phone with family, friends, or neighbors? How often do you get together with friends Never 03/07/2019 or relatives? How often do you attend yazidism or jehovah's witness More than 4 time s per year 03/07/2019 services? Do you belong to any clubs or organizations No 03/07/2019 such as yazidism groups, unions, fraternal or athletic groups, or [...] this encounter Miscellaneous Notes Telephone Encounter - Osman Osorioabilio Levy - 03/18/2020 4:22 PM CSTPatient is calling back regarding his blood pressure,his pressure is 142/98, please call [phone] signed by Jillian Osorio at 03/18/2020 4:23 PM CSTTelephone Encounter - Uriel Langford MD - 03/17/2020 1:02 PM CSTOK elephone Encounter - Kaelyn Avila LVN - 03/17/2020 12:49 PM CSTReturned patient call he is asking about his blood pressure says lately it has been running 140-146/80- 90, he has been walking with his prosthesis wondering if that could be why it is a little elvated.I advised he should be seen and he did not want to make an appointment at this time, he will monitorand call if it continues to run higher. Dr vazquez. R PROCESSING MANAGER Telephone Encounter - Ashley Weems - 03/17/2020 11:59 AM CSTPt calling back in regard to below encounter, patient stated his cell phone is not working at this time, please contact patient at [phone] or [phone]. elephone Encounter - Kaelyn Avila LVN - 03/17/2020 9:17 AM CSTReturned patient call, no answer. Left message to call me back. elephone Encounter - Debra Francisco - 03/17/2020 8:46 AM CSTPatient would like to speak to a nurse regarding blood pressure. documented in this encounter Plan of Treatment [...] on patient's age to complete this to [facility] documented as of this encounter Goals Goal Patient Goal Associated Recent Patient-Stated? Author Type Problems Progress To learn how General Yes Shashank, to walk Raysa Weber PT again. documented as of this encounter Implants Implanted Type Area Soap Drier Tender Device Shelf Expiration Model / Identifier Date Serial / Lot Balloon Catheter, Lutonix 130cm 5x80 Dcp Bard #[id number] - [id number] Bard 09/03/2017 [id number] / Implanted: Qty: 1 on 05/13/2016 by Xavier Escobar MD at [facility] 0 / [id number] Angio-Seal Evolution Vascular Closure Device [employer] #C6 [id number] - S0 [facility] [employer] 02/22/2017 [id number] / Implanted: Qty: 1 on 05/13/2016 by Xavier Escobar MD at [facility] 0 / [id number] documented as of this encounter Results Not on filedocumented in this encounter Insurance Payer Benefit Plan / Subscriber ID Effective Dates Phone Addre ss Type Group MEDICARE MEDICARE PART [id number] 2014-Mile [phone] [address] [facility] Medicare A t 2 [id number] BEREN[place] CRUMP [id number] documented as of this encounter
--- OUTSIDE RECORDS SUMMARY | 2020-04-30 11:13 | XMS REPORT | Summary of Care ---
:1955 Author Organization [facility] Address [address] [place] [address] Care Team Providers Name Role Phone Uriel Langford MD Primary Care Provider Reason for Visit Reason Comments Notification Encounter Details Date Type Department Care Team Description 03/06/2020 Telephone [facility] Family Medicine Uriel Pike MD Notification - [address] [place]on [facility] [place] [address] [place] [address] [phone] Allergies Active Allergy Reactions Severity Noted Date Comments Tramadol Other - See comments 05/24/2017 Syncope ended up in hospital documented as of this encounter (statuses as of 03/06/2020) Medications Medication Sig Dispensed Refills Start Date [...] 1 capsule by 30 capsule 0 05/05/19 Active 100 mg mouth 3 (three) capsuleIndications: times daily. Left foot pain, Peripheral vascular disease of lower extremity cilostazol 100 mg Take 1 tablet by 60 tablet 0 05/05/2018 Active tabletIndications: mouth daily. Left foot pain, Peripheral vascular disease of lower extremity documented as of this encounter (statuses as of 03/06/2020) Active Problems Problem Noted Date Peripheral vascular disease 05/13/2016 History of blood clots Overview: has had three in right leg, also has rey nt in right leg. Smoking HTN (hypertension) Pulmonary fibrosis documented as of this encounter (statuses as of 03/06/2020) Immunizations Name Administration Dates Next Due Influenza [...] had a drink in 3 months- 03/07/2019- [facility] Social Isolation Answer Date Recorded In a typical week, how many times do you Once a week 03/07/2019 talk on the phone with family, friends, or neighbors? How often do you get together with friends Never 03/07/2019 or relatives? How often do you attend uatsdin or adventism More than 4 time s per year 03/07/2019 services? Do you belong to any clubs or organizations No 03/07/2019 such as uatsdin groups, unions, fraternal or athletic groups, or [...] of school you have High school gra dunuria 03/07/2019 completed or the highest degree you [...] Telephone Encounter - Uriel Langford MD - 03/06/2020 4:15 PM CSTOK elephone Encounter - Debra Francisco - 03/06/2020 3:11 PM CSTLucrecia with [facility] is calling,she went to patient's house to do a recertification visit, to continue therapy. # [phone] signed by Debra Francisco at 03/06/2020 3:13 PM CSTdocumented in this encounter Plan of Treatment Health [...] on patient's age to complete this to [facility] documented as of this encounter Goals Goal Patient Goal Associated Recent Patient-Stated? Author Type Problems Progress To learn how General Yes Shashank, to walk Raysa , PT again. documented as of this encounter Implants Implanted Type Area Manager Field Services Device Shelf Expiration Model / Identifier Date Serial / Lot Balloon Catheter, Lutonix 130cm 5x80 Dcp Bard #[id number] - [id number] Bard 09/03/2017 [id number] / Implanted: Qty: 1 on 05/13/2016 by Xavier Escobar MD at [facility] 0 / [id number] Angio-Seal Evolution Vascular Closure Device [employer] #C6 [id number] - S0 [facility] [employer] 02/22/2017 [id number] / Implanted: Qty: 1 on 05/13/2016 by Xavier Escobar MD at [facility] 0 / [id number] documented as of this encounter Results Not on filedocumented in this encounter Insurance Payer Benefit Plan / Subscriber ID Effective Dates Phone Addre ss Type Group MEDICARE MEDICARE PART [id number] 2014-Mile [phone] Medicare A 2 [id number] [place] [phone] documented as of this encounter
--- OUTSIDE RECORDS SUMMARY | 2020-04-30 11:13 | XMS REPORT | Summary of Care ---
:1955 Author Organization [facility] Address [address] [place] [id number] Care Team Providers Name Role Phone Uriel Langford MD Primary Care Provider Reason for Visit Reason Comments Assessment Encounter Details Date Type Department Care Team Description 03/17/2020 Telephone [facility] Family [facility] Uriel Pike MD Assessment - [address] [place] [address] [place] [address] [phone] Allergies Active Allergy Reactions Severity Noted Date Comments Tramadol Other - See comments 05/24/2017 Syncope ended up in hospital documented as of this encounter (statuses as of 03/17/2020) Medications Medication Sig Dispensed Refills Start Date [...] as of this encounter (statuses as of 03/17/2020) Active Problems Problem Noted Date Peripheral vascular disease 05/13/2016 History of blood clots Overview: has had three in right leg, also has rey nt in right leg. Smoking HTN (hypertension) Pulmonary fibrosis documented as of this encounter (statuses as of 03/17/2020) Immunizations Name Administration Dates Next Due Influenza [...] or relatives? How often do you attend congregation or synagogue More than 4 time s per year 03/07/2019 services? Do you belong to any clubs or organizations No 03/07/2019 such as congregation groups, unions, fraternal or athletic groups, or [...] Telephone Encounter - Uriel Langford MD - 03/17/2020 [...] call if it continues to run higher. notified. OR [employer]NER Telephone Encounter - Ashley Weems - 03/17/2020 11:59 AM CSTPt calling back in regard to below encounter, patient stated his cell phone is not working at this time, please contact patient at [phone] or [phone]. elephone Encounter - Kaelyn Avila LVN - [...] learn how General Yes Shashank, to walk Malkaalod G, PT again. documented as of this encounter Implants Implanted Type Area Rock Drill Operator Device Shelf Expiration Model / Identifier Date Serial / Lot Balloon Catheter, Lutonix 130cm 5x80 Dcp Bard #[id number] - [id number] Bard 09/03/2017 [id number] / Implanted: Qty: 1 on 05/13/2016 by Xavier Escobar MD at [facility] 0 / [id number] Angio-Seal Evolution Vascular Closure Device [employer] #[id number] - [id number] [employer] 02/22/2017 [id number] / Implanted: Qty: 1 on 05/13/2016 by Xavier Escobar MD at [facility] 0 / [id number] documented as of this encounter Results Not on filedocumented in this encounter Insurance Payer Benefit Plan / Subscriber ID Effective Dates Phone Addre ss Type Group MEDICARE MEDICARE PART [id number] 2014-[place]ile [phone] Medicare A t 2 [id number] [place] [id number] documented as of this encounter
--- OUTSIDE RECORDS SUMMARY | 2020-04-30 11:13 | XMS REPORT | Continuity of Care Document ---
:1955 Author Organization [facility] t Address [address] [place] [address] Care Team Providers Name Role Phone Sharpless Primary Care Physician Primitivo TELLEZ Attending Clinician Singer BARRERA Attending Clinician Doctor Unassigned, Name Attending Clinician Unavailable Kody MONTEZ Attending Clinician Unavailable BRUCE OCONNOR Attending Clinician Unavailable SUSAN Attending Clinician Unavailable Arcelia CABEZAS Attending Clinician Unavailable RAZ RUIZ Attending Clinician Unavailable Kody MONTEZ Admitting Clinician Unavailable BRUCE OCONNOR Admitting Clinician Unavailable SUSAN Admitting Clinician Unavailable RAZ RUIZ Admitting Clinician Unavailable Problems Condition Condition Condition Status Onset Resolution Last Treating Co mments Source Name Details Category Date Date Treatment Clinician Date Colorectal Colorectal Disease Active [facility] 00 [place] Rectal Rectal Disease Active [facility] 6 [facility] - metastasiz metastasiz 00:00: Mi dical ed to ed to 00 [place] liver liver Rectal Rectal Disease Active [facility] cancer 2 [facility] - 00:[facility]: [facility] 00 [place] HTN HTN Disease Active [facility] (hypertens (hypertens 1-25 [facility] - ion) ion) 00:00: Medical 00 Center DVT, lower DVT, lower Disease Active [facility] extremity extremity 1-25 [facility] - 00:[facility] 00 Center Rectal Rectal Disease Active 2017-[address] [facility] [address] cancer cancer 0-17 [facility] 00 [facility] Critical Critical Disease Active 2017-[facility] lower limb lower limb 0-02 [facility] - ischemia ischemia 00:00: Medica l 00 Center Ischemia Ischemia Disease Active 2017-04 [facility] PVD PVD Disease Active [facility] (periphera (periphera 11-17 [facility] - l vascular l vascular 00:00: Me dical disease) disease) 00 Center Peripheral Peripheral Disease Active [facility] vascular vascular 11-16 [facility] - disease disease 00:00: Medical 00 [place] CKD CKD Disease Active Overview: [facility] (chronic (chronic 04-25 Baseline [facility] - kidney kidney 00:00: creatinin Medical disease) disease) 00 e Center stage 3, stage 3, ~1.6-1.8 GFR 30-59 GFR 30-59 since ml/min ml/min 2015 Benign Benign Disease Active [facility] essential essential [facility] - HTN HTN [facility] ETOH abuse ETOH abuse Disease Active [facility] Tobacco Tobacco Disease Active [facility] St abuse abuse [facility] Allergies, Adverse Reactions, Alerts Allergy Allergy Status Severity Reaction(s) Onset Inactive Treating Comm ents Source Name Type Date Date Clinician Tramadol Propensi Active Passed [facility] St ty to 11-17 out [facility] - adverse 00:00: Medical reaction 00 Center s Family History Family Member Diagnosis Comments Start Date Stop Date Source Natural brother Heart disease [facility] Natural father Heart disease [facility] Natural mother No Known Problem [facility] Natural sister Kidney disease [facility] Social History Social Habit Start Date Stop Date Quantity Comments Source History of tobacco Cigarette Smoker [facility] use [facility] History SDOH [facility] - Alcohol Std Drinks Medica l [place] History SDOH [facility] - Alcohol Binge Medical Bruno ter Sex Assigned At MD Bass on Cigarettes smoked 2018-09-25 2018-09-[address] [facility] - current (pack per 00:00:00 00:00:00 Medical Center day) - Reported Cigarette 2018-09-25 2018-09-[address] [facility] - pack-years 00:00:00 00:00:00 [facility] Tobacco use and 2018-09-25 2018-09-[address] [facility] - exposure 00:00:00 00:00:00 [facility] Alcohol intake 2018-09-25 2018-09-[address] [facility] - 00:00:00 00:00:00 non-drinker of Medical Ce nter alcohol (finding) History SDOH 2018-05-17 2018-05-[address] [facility] - Alcohol Frequency 00:00:00 00:00:00 [facility] Alcohol Comment 2018-02-05 2018-02-05 # drinks of [facility] - 00:00:00 00:00:00 liqor/day [facility] Smoking Status Start Date Stop Date Source Former smoker 2018-09-25 00:00:00 2018-09-25 00:00:[address] [facility] - [facility] Medications Ordered Filled Start Stop Current Ordering Indication Dosage Frequency Signature Comments Components Source Medication Medication Date Date Medication? Clinician (SIG) Name Name aspirin 81 2018-0 Yes 81mg QD Take [address] MG EC 6-07 by mouth [facility] - tablet 10:39: daily. [address] pantoprazol 2017-04 Yes 40mg QD Take [address] e 0-25 tablet (40 [facility] - (PROTONIX) 00:00: mg total) Me dical 40 MG 00 by mouth Center tablet daily. Immunizations Ordered Immunization Filled Immunization Date Status Commen ts Source Name Name Influenza Four-QIV 2018-02-[address] [facility] - Non-PF 5+ YR 00:00:00 Medical Cent er Procedures This patient has no known procedures. Plan of Care Planned Activity Planned Date Details Comments Source Future Scheduled 2021-05-[address] [facility] - Test 00:00:00 (procedure) [code = [facility] [id number]] Future Scheduled 2020-04-[address] [facility] - Test 00:00:00 (12+) [code = [facility] DEPRESSION SCREENING (12+)] Future Scheduled 2019-12-25 INFLUENZA VACCINE (#1) [facility] - Test 00:00:00 [code = INFLUENZA Medical Ce nter VACCINE (#1)] Future Scheduled 2019-09-[address] [facility] - Test 00:00:00 malignant neoplasm of Medica l Center colon (procedure) [code = 414391039] Future Scheduled 1974-10-24 HEPATITIS B VACCINE ([address] [facility] - Test 00:00:00 of 3 - Risk 3-dose Medical C enter series) [code = HEPATITIS B VACCINE (1 of 3 - Risk 3-dose series)] Future Scheduled 1961-10-[address] [facility] - Test 00:00:00 0-64 YRS (1 of 3 - Medical C enter PCV13) [code = PNEUMOCOCCAL VACCINE 0-64 YRS (1 of 3 - PCV13)] Encounters Start End Encounter Admission Attending Care Care Encounter Source Date/Time Date/Time Type Type Clinicians Facility Department ID 2020-04-30 2020-04-30 [facility] [id number] 00:00:00 00:00:00 [facility] [id number] [place] [id number] [facility] [phone] [place] [address] [address] 2020-04-29 2020-04-29 [place] [facility] [id number] 00:00:00 00:00:00 [facility] [id number] [place] [id number] [facility] [phone] [place] [address] [address] 2020-04-29 2020-04-29 [place] [facility] [id number] 00:00:00 00:00:00 [facility] [id number] [place] [id number] Professio [phone] [place] [address] [address] 2020-04-28 2020-04-28 Emergency [facility] [id number] 09:56:00 18:42:00 Librado H[place] [id number] [place] [id number] [place] [id number] [id number] 2020-04-23 2020-04-23 Reffelecia Langford [facility] [id number] 00:00:00 00:00:00 [facility] [id number] [place] [id number] Professio [phone] nal [facility] Office Building One 2020-04-21 2020-04-21 Telephone DON Langford [id number] 00:00:00 00:00:00 [facility] [id number] [place] [id number] Professio [phone] [place] [address] [address] 2020-04-01 2020-04-01 [place] Primitivo IDLILIYA [id number] 00:00:00 00:00:00 [facility] [id number] [place] [id number] Professio [phone] [place] [address] [address] 2020-03-31 2020-03-31 Orders Doctor LUIS [id number] 00:00:00 00:00:00 Only Unassigned, FABI [id number] [facility] [phone] [id number] 2020-03-27 2020-03-27 Office Primitivo IDLILIYA [id number] 11:45:44 12:00:44 Visit Uriel [facility] [id number] [place] [id number] Professio [phone] [place] [address] Office [facility] One Results Test Description Test Time Test Comments Results Result Comments Source BASIC METABOLIC PANEL 2018-09-28 06:38:00 Test Item Value Reference Range Interpretation Comme nts SODIUM (BEAKER) (test code 138 meq/L 136-145 = 381) POTASSIUM (BEAKER) (test 4.1 meq/L 3.5-5.1 code = 379) CHLORIDE (BEAKER) (test 108 meq/L 98-107 H code = 382) CO2 (BEAKER) (test code = 24 meq/L 22-29 355) BLOOD UREA NITROGEN 18 mg/dL 7-21 (BEAKER) (test code = 354) CREATININE (BEAKER) (test 1.56 mg/dL 0.57-1.25 H code = 358) GLUCOSE RANDOM (BEAKER) 108 mg/dL 70-105 H (test code = 652) CALCIUM (BEAKER) (test code 8.6 mg/dL 8.4-10.2 = 697) EGFR (BEAKER) (test code = 45 mL/min/1.73 sq m ESTIMATED GFR IS NOT 1092) ACCURATE CRE ATININE CLEARANCE IN MT EDICTING GLOMERULAR FILT RATION RATE. ESTIMATED GFR IS NOT APPLICABLE FOR DIALYSIS PATIENTS. CBC W/PLT COUNT & AUTO [id number] 05:48:00 Test Item Value Reference Range Interpretation Comments WHITE BLOOD CELL COUNT (BEAKER) 9.2 K/ L 3.5-10.5 (test code = 775) RED BLOOD CELL COUNT (BEAKER) 4.24 M/ L 4.63-6.08 L (test code = 761) HEMOGLOBIN (BEAKER) (test code = 10.7 GM/DL 13.7-17.5 L 410) HEMATOCRIT (BEAKER) (test code = 34.7 % 40.1-51.0 L 411) MEAN CORPUSCULAR VOLUME (BEAKER) 81.8 fL 79.0-92.2 (test code = 753) MEAN CORPUSCULAR HEMOGLOBIN 25.2 pg 25.7-32.2 L (BEAKER) (test code = 751) MEAN CORPUSCULAR HEMOGLOBIN CONC 30.8 GM/DL 32.3-36.5 L (BEAKER) (test code = 752) RED CELL DISTRIBUTION WIDTH 16.5 % 11.6-14.4 H (BEAKER) (test code = 412) PLATELET COUNT (BEAKER) (test 220 K/CU MM 150-450 code = 756) MEAN PLATELET VOLUME (BEAKER) 9.1 fL 9.4-12.4 L (test code = 754) NUCLEATED RED BLOOD CELLS 0 /100 WBC 0-0 (BEAKER) (test code = 413) NEUTROPHILS RELATIVE PERCENT 67 % (BEAKER) (test code = 429) LYMPHOCYTES RELATIVE PERCENT 24 % (BEAKER) (test code = 430) MONOCYTES RELATIVE PERCENT 7 % (BEAKER) (test code = 431) EOSINOPHILS RELATIVE PERCENT 1 % (BEAKER) (test code = 432) BASOPHILS RELATIVE PERCENT 1 % (BEAKER) (test code = 437) NEUTROPHILS ABSOLUTE COUNT 6.17 K/ L 1.78-5.38 H (BEAKER) (test code = 670) LYMPHOCYTES ABSOLUTE COUNT 2.20 K/ L 1.32-3.57 (BEAKER) (test code = 414) MONOCYTES ABSOLUTE COUNT (BEAKER) 0.63 K/ L 0.30-0.82 (test code = 415) EOSINOPHILS ABSOLUTE COUNT 0.10 K/ L 0.04-0.54 (BEAKER) (test code = 416) BASOPHILS ABSOLUTE COUNT (BEAKER) 0.05 K/ L 0.01-0.08 (test code = 417) IMMATURE GRANULOCYTES-RELATIVE 1 % 0-1 PERCENT (BEAKER) (test code = 2801) [id number] 05:48:00 Test Item Value Reference Range Interpretation Comments PROTIME (BEAKER) (test code = 13.3 seconds 11.9-14.2 759) INR (BEAKER) (test code = 370) 1.1 <=5.9 PARTIAL THROMBOPLASTIN TIME 27.4 seconds 22.5-36.0 (BEAKER) (test code = 760) Effective 09/20/2018: PT Reference Range ChangeNew: 11.9-14.2 Previous: 11.7- 14.7RECOMMENDED COUMADIN/WARFARIN INR THERAPY RANGESSTANDARD DOSE: 2.0-3.0 Includes: PROPHYLAXIS for venous thrombosis, systemic embolization; TREATMENT for venous thrombosis and/or pulmonary embolus.HIGH RISK: Target INR is2.5-3.5 for patients wiht mechanical heart valves.BASIC METABOLIC [id number] 08:00:00 Test Item Value Reference Range Interpretation Comments SODIUM (BEAKER) 139 meq/L 136-145 (test code = 381) POTASSIUM (BEAKER) 3.4 meq/L 3.5-5.1 L (test code = 379) CHLORIDE (BEAKER) 117 meq/L 98-107 H (test code = 382) CO2 (BEAKER) (test 17 meq/L 22-29 L code = 355) BLOOD UREA NITROGEN 13 mg/dL 7-21 (BEAKER) (test code = 354) CREATININE (BEAKER) 1.15 mg/dL 0.57-1.25 (test code = 358) GLUCOSE RANDOM 153 mg/dL 70-105 H (BEAKER) (test code = 652) CALCIUM (BEAKER) 6.8 mg/dL 8.4-10.2 L (test code = 697) EGFR (BEAKER) (test 64 mL/min/1.73 ESTIMA MIS GFR IS code = 1092) sq m NOT ACCURATE CREATININE CLEARANCE IN PREDICTING GLOMERULAR FILTRATION RATE . ESTIMATED GFR I S NOT APPLICABLE FOR DIALYSIS PATIEN TS. [id number] 06:57:00 Test Item Value Reference Range Interpretation Comments PROTIME (BEAKER) (test code = 13.4 seconds 11.9-14.2 759) INR (BEAKER) (test code = 370) 1.1 <=5.9 PARTIAL THROMBOPLASTIN TIME 32.8 seconds 22.5-36.0 (BEAKER) (test code = 760) Effective 09/20/2018: PT Reference Range ChangeNew: 11.9-14.2 Previous: 11.7- 14.7RECOMMENDED COUMADIN/WARFARIN INR THERAPY RANGESSTANDARD DOSE: 2.0-3.0 Includes: PROPHYLAXIS for venous thrombosis, systemic embolization; TREATMENT for venous thrombosis and/or pulmonary embolus.HIGH RISK: Target INR is2.5-3.5 for patients wiht mechanical heart valves.CBC W/PLT COUNT & AUTO [id number] 06:45:00 Test Item Value Reference Range Interpretation Comments WHITE BLOOD CELL COUNT (BEAKER) 6.8 K/ L 3.5-10.5 (test code = 775) RED BLOOD CELL COUNT (BEAKER) 4.40 M/ L 4.63-6.08 L (test code = 761) HEMOGLOBIN (BEAKER) (test code = 11.1 GM/DL 13.7-17.5 L 410) HEMATOCRIT (BEAKER) (test code = 35.7 % 40.1-51.0 L 411) MEAN CORPUSCULAR VOLUME (BEAKER) 81.1 fL 79.0-92.2 (test code = 753) MEAN CORPUSCULAR HEMOGLOBIN 25.2 pg 25.7-32.2 L (BEAKER) (test code = 751) MEAN CORPUSCULAR HEMOGLOBIN CONC 31.1 GM/DL 32.3-36.5 L (BEAKER) (test code = 752) RED CELL DISTRIBUTION WIDTH 16.2 % 11.6-14.4 H (BEAKER) (test code = 412) PLATELET COUNT (BEAKER) (test 241 K/CU MM 150-450 code = 756) MEAN PLATELET VOLUME (BEAKER) 9.2 fL 9.4-12.4 L (test code = 754) NUCLEATED RED BLOOD CELLS 0 /100 WBC 0-0 (BEAKER) (test code = 413) NEUTROPHILS RELATIVE PERCENT 89 % (BEAKER) (test code = 429) LYMPHOCYTES RELATIVE PERCENT 8 % (BEAKER) (test code = 430) MONOCYTES RELATIVE PERCENT 2 % (BEAKER) (test code = 431) EOSINOPHILS RELATIVE PERCENT 0 % (BEAKER) (test code = 432) BASOPHILS RELATIVE PERCENT 0 % (BEAKER) (test code = 437) NEUTROPHILS ABSOLUTE COUNT 6.02 K/ L 1.78-5.38 H (BEAKER) (test code = 670) LYMPHOCYTES ABSOLUTE COUNT 0.55 K/ L 1.32-3.57 L (BEAKER) (test code = 414) MONOCYTES ABSOLUTE COUNT (BEAKER) 0.15 K/ L 0.30-0.82 L (test code = 415) EOSINOPHILS ABSOLUTE COUNT 0.00 K/ L 0.04-0.54 L (BEAKER) (test code = 416) BASOPHILS ABSOLUTE COUNT (BEAKER) 0.01 K/ L 0.01-0.08 (test code = 417) IMMATURE GRANULOCYTES-RELATIVE 0 % 0-1 PERCENT (BEAKER) (test code = 2801) [id number] 16:34:00 Test Item Value Reference Range Interpretation Comments PROTIME (BEAKER) (test code = 12.9 seconds 11.9-14.2 759) INR (BEAKER) (test code = 370) 1.0 <=5.9 PARTIAL THROMBOPLASTIN TIME 30.0 seconds 22.5-36.0 (BEAKER) (test code = 760) Effective 09/20/2018: PT Reference Range ChangeNew: 11.9-14.2 Previous: 11.7- 14.7RECOMMENDED COUMADIN/WARFARIN INR THERAPY RANGESSTANDARD DOSE: 2.0-3.0 Includes: PROPHYLAXIS for venous thrombosis, systemic embolization; TREATMENT for venous thrombosis and/or pulmonary embolus.HIGH RISK: Target INR is2.5-3.5 for patients wiht mechanical heart valves.BASIC METABOLIC [id number] 16:33:00 Test Item Value Reference Range Interpretation Comments SODIUM (BEAKER) 141 meq/L 136-145 (test code = 381) POTASSIUM (BEAKER) 3.8 meq/L 3.5-5.1 (test code = 379) CHLORIDE (BEAKER) 110 meq/L 98-107 H (test code = 382) CO2 (BEAKER) (test 26 meq/L 22-29 code = 355) BLOOD UREA NITROGEN 15 mg/dL 7-21 (BEAKER) (test code = 354) CREATININE (BEAKER) 1.48 mg/dL 0.57-1.25 H (test code = 358) GLUCOSE RANDOM 117 mg/dL 70-105 H (BEAKER) (test code = 652) CALCIUM (BEAKER) 8.4 mg/dL 8.4-10.2 (test code = 697) EGFR (BEAKER) (test 48 mL/min/1.73 ESTIMA MIS GFR IS code = 1092) sq m NOT ACCURATE CREATININE CLEARANCE IN PREDICTING GLOMERULAR FILTRATION RATE . ESTIMATED GFR I S NOT APPLICABLE FOR DIALYSIS PATIEN TS. CBC W/PLT COUNT & AUTO [id number] 16:16:00 Test Item Value Reference Range Interpretation Comments WHITE BLOOD CELL COUNT (BEAKER) 6.0 K/ L 3.5-10.5 (test code = 775) RED BLOOD CELL COUNT (BEAKER) 4.15 M/ L 4.63-6.08 L (test code = 761) HEMOGLOBIN (BEAKER) (test code = 10.5 GM/DL 13.7-17.5 L 410) HEMATOCRIT (BEAKER) (test code = 34.0 % 40.1-51.0 L 411) MEAN CORPUSCULAR VOLUME (BEAKER) 81.9 fL 79.0-92.2 (test code = 753) MEAN CORPUSCULAR HEMOGLOBIN 25.3 pg 25.7-32.2 L (BEAKER) (test code = 751) MEAN CORPUSCULAR HEMOGLOBIN CONC 30.9 GM/DL 32.3-36.5 L (BEAKER) (test code = 752) RED CELL DISTRIBUTION WIDTH 16.2 % 11.6-14.4 H (BEAKER) (test code = 412) PLATELET COUNT (BEAKER) (test 221 K/CU MM 150-450 code = 756) MEAN PLATELET VOLUME (BEAKER) 9.5 fL 9.4-12.4 (test code = 754) NUCLEATED RED BLOOD CELLS 0 /100 WBC 0-0 (BEAKER) (test code = 413) NEUTROPHILS RELATIVE PERCENT 58 % (BEAKER) (test code = 429) LYMPHOCYTES RELATIVE PERCENT 26 % (BEAKER) (test code = 430) MONOCYTES RELATIVE PERCENT 11 % (BEAKER) (test code = 431) EOSINOPHILS RELATIVE PERCENT 5 % (BEAKER) (test code = 432) BASOPHILS RELATIVE PERCENT 1 % (BEAKER) (test code = 437) NEUTROPHILS ABSOLUTE COUNT 3.44 K/ L 1.78-5.38 (BEAKER) (test code = 670) LYMPHOCYTES ABSOLUTE COUNT 1.53 K/ L 1.32-3.57 (BEAKER) (test code = 414) MONOCYTES ABSOLUTE COUNT (BEAKER) 0.64 K/ L 0.30-0.82 (test code = 415) EOSINOPHILS ABSOLUTE COUNT 0.28 K/ L 0.04-0.54 (BEAKER) (test code = 416) BASOPHILS ABSOLUTE COUNT (BEAKER) 0.04 K/ L 0.01-0.08 (test code = 417) IMMATURE GRANULOCYTES-RELATIVE 0 % 0-1 PERCENT (BEAKER) (test code = 2801) CT, [id number] 08:15:00FINAL REPORT CT Chest, abdomen, and pelvis with contrast History:Colorectal neoplasm Comparison: 02/09/2018 Technique: serial axial imaging was performed following up to 100cc ofnon ionic iodinated intravenous contrast as per departmental protocol. Multiplanar images are reconstructed and reviewed when indicated. This CT examination is performed using one or more of the following dose reduction techniques: Automated exposure control, adjustment of the mA and /or kV accordin g to patient size, and/or use of iterative reconstruction technique. Findings:No mediastinal or hilar lymphadenopathy. Normal size heart. No pericardial effusion. No thoracic aortic aneurysm or dissection. No central pulmonary arterial filling defect. A right-sided central venous catheter termi nates within the superior vena cava. Patent central airways. No pleural effusion or pneumothorax. Significant underlying COPD. There is a calcified granuloma within the right lower lobe on axial image 25 which appears unchanged. The lungs are otherwise clear. Unremarkable appearance of pancreas and spleen. There are multiple ill-defined hypodense lesions within the liver which appear similar in size to the prior examination. The largest lesion measures approximately 2.5 cm in size. No new hepatic lesions are visualized. No intrahepatic biliary dilation. The central portal veins appear patent. The gallbladder demonstrates no evidence of calcified stone, wall thickening, or pericholecystic fluid. Unremarkable appearance of adrenal glands, kidneys, ureters, and urinary bladder. . No small or large bowel obstruction. There is subtle soft tissue thickening within the rectum, which is bestseen on axial images 131-133. No definite extra serosal tumor is visualized. No findings to indicate acute appendicitis. Unchanged mild lymphadenopathy within the larisa hepatis. Patent stents within the distal abdominal aorta and bilateral common iliac arteries. There is an occluded stent at the origin of the right superficial femoral artery. 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 No aggressive osseous lesion. Impression: 1. Multiple liver metastases, similar in size to 02/09/2018.2. No evidence of metastatic disease in the chest.3. Subtle thickening of the rectum, presumably the site of primary tumor. No definite extra serosal tumor is appreciated.4. Occluded stent within the origin of the right superficial femoral artery.5. 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 Significant underlying COPD. Signed: Jean Morfin MDReport Verified Date/Time: 09/26/2018 08:15:12 Reading Location: [facility] Diagnostic Imaging Reading Room- [place] [id number] CT, CHEST, WITH [id number] 08:15:00FINAL REPORT CT Chest, abdomen, and pelvis with contrast History:Colorectal neoplasm Comparison: 02/09/2018 Technique: serial axial imaging was performed following up to 100cc ofnon ionic iodinated intravenous contrast as per departmental protocol. Multiplanar images are reconstructed and reviewed when indicated. This CT examination is performed using one or more of the following dose reduction techniques: Automated exposure control, adjustment of the mA and /or kV according to patient size, and/or use of iterative reconstruction technique. Findings:No mediastinal or hilar lymphadenopathy. Normal size heart. No pericardial effusion. No thoracic aortic aneurysm or dissection. No central pulmonary arterial filling defect. A right-sided central venous catheter termi nates within the superior vena cava. Patent central airways. No pleural effusion or pneumothorax. Significant underlying COPD. There is a calcified granuloma within the right lower lobe on axial image 25 which appears unchanged. The lungs are otherwise clear. Unremarkable appearance of pancreas and spleen. There are multiple ill-defined hypodense lesions within the liver which appear similar in size to the prior examination. The largest lesion measures approximately 2.5 cm in size. No new hepatic lesions are visualized. No intrahepatic biliary dilation. The central portal veins appear patent. The gallbladder demonstrates no evidence of calcified stone, wall thickening, or pericholecystic fluid. Unremarkable appearance of adrenal glands, kidneys, ureters, and urinary bladder. . No small or large bowel obstruction. There is subtle soft tissue thickening within the rectum, which is bestseen on axial images 131-133. No definite extra serosal tumor is visualized. No findings to indicate acute appendicitis. Unchanged mild lymphadenopathy within the larisa hepatis. Patent stents within the distal abdominal aorta and bilateral common iliac arteries. There is an occluded stent at the origin of the right superficial femoral artery. 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 No aggressive osseous lesion. Impression: 1. Multiple liver metastases, similar in size to 02/09/2018.2. No evidence of metastatic disease in the chest.3. Subtle thickening of the rectum, presumably the site of primary tumor. No definite extra serosal tumor is appreciated.4. Occluded stent within the origin of the right superficial femoral artery.5. 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 Significant underlying COPD. Signed: Jean Morfin MDReport Verified Date/Time: 09/26/2018 08:15:12 Reading Location: [facility] Diagnostic Imaging Reading Room- [place] [address] [id number] 16:57:00 Test Item Value Reference Range Interpretation Comments FERRITIN (BEAKER) (test code = 361) 14 ng/mL 5-275 IRON, TIBC, % SAT. (WITHOUT FERRITIN)2018-09-25 16:35:00 Test Item Value Reference Range Interpretation Comments IRON (BEAKER) (test code = 547) 45.0 ug/dL 40.0-160.0 TOTAL IRON BINDING CAPACITY 326 ug/dL 250-450 (BEAKER) (test code = 769) IRON % SATURATION (2) (BEAKER) 14 % 20-55 L (test code = 2590) IRON, [id number] 16:35:00 Test Item Value Reference Range Interpretation Comments IRON (BEAKER) (test code = 547) 45.0 ug/dL 40.0-160.0 [id number] 16:34:00 Test Item Value Reference Range Interpretation Comments MAGNESIUM (BEAKER) (test code = 1.9 mg/dL 1.6-2.6 627) BASIC METABOLIC [id number] 16:34:00 Test Item Value Reference Range Interpretation Comments SODIUM (BEAKER) 140 meq/L 136-145 (test code = 381) POTASSIUM (BEAKER) 4.3 meq/L 3.5-5.1 (test code = 379) CHLORIDE (BEAKER) 110 meq/L 98-107 H (test code = 382) CO2 (BEAKER) (test 25 meq/L 22-29 code = 355) BLOOD UREA NITROGEN 19 mg/dL 7-21 (BEAKER) (test code = 354) CREATININE (BEAKER) 1.56 mg/dL 0.57-1.25 H (test code = 358) GLUCOSE RANDOM 83 mg/dL 70-105 (BEAKER) (test code = 652) CALCIUM (BEAKER) 9.1 mg/dL 8.4-10.2 (test code = 697) EGFR (BEAKER) (test 45 mL/min/1.73 ESTIMA MIS GFR IS code = 1092) sq m NOT ACCURATE CREATININE CLEARANCE IN PREDICTING GLOMERULAR FILTRATION RATE . ESTIMATED GFR I S NOT APPLICABLE FOR DIALYSIS PATIEN TS. HEPATIC FUNCTION [id number] 16:34:00 Test Item Value Reference Range Interpretation Comments TOTAL PROTEIN (BEAKER) (test code = 6.9 gm/dL 6.0-8.3 770) ALBUMIN (BEAKER) (test code = 1145) 3.8 g/dL 3.5-5.0 BILIRUBIN TOTAL (BEAKER) (test code 0.4 mg/dL 0.2-1.2 = 377) BILIRUBIN DIRECT (BEAKER) (test 0.1 mg/dL 0.1-0.5 code = 706) ALKALINE PHOSPHATASE (BEAKER) (test 87 U/L 40-150 code = 346) AST (SGOT) (BEAKER) (test code = 24 U/L 5-34 353) ALT (SGPT) (BEAKER) (test code = 15 U/L 6-55 347) CBC W/PLT COUNT & AUTO [id number] 16:05:00 Test Item Value Reference Range Interpretation Comments WHITE BLOOD CELL COUNT (BEAKER) 7.7 K/ L 3.5-10.5 (test code = 775) RED BLOOD CELL COUNT (BEAKER) 4.71 M/ L 4.63-6.08 (test code = 761) HEMOGLOBIN (BEAKER) (test code = 11.8 GM/DL 13.7-17.5 L 410) HEMATOCRIT (BEAKER) (test code = 38.5 % 40.1-51.0 L 411) MEAN CORPUSCULAR VOLUME (BEAKER) 81.7 fL 79.0-92.2 (test code = 753) MEAN CORPUSCULAR HEMOGLOBIN 25.1 pg 25.7-32.2 L (BEAKER) (test code = 751) MEAN CORPUSCULAR HEMOGLOBIN CONC 30.6 GM/DL 32.3-36.5 L (BEAKER) (test code = 752) RED CELL DISTRIBUTION WIDTH 16.3 % 11.6-14.4 H (BEAKER) (test code = 412) PLATELET COUNT (BEAKER) (test 268 K/CU MM 150-450 code = 756) MEAN PLATELET VOLUME (BEAKER) 9.1 fL 9.4-12.4 L (test code = 754) NUCLEATED RED BLOOD CELLS 0 /100 WBC 0-0 (BEAKER) (test code = 413) NEUTROPHILS RELATIVE PERCENT 61 % (BEAKER) (test code = 429) LYMPHOCYTES RELATIVE PERCENT 24 % (BEAKER) (test code = 430) MONOCYTES RELATIVE PERCENT 10 % (BEAKER) (test code = 431) EOSINOPHILS RELATIVE PERCENT 4 % (BEAKER) (test code = 432) BASOPHILS RELATIVE PERCENT 1 % (BEAKER) (test code = 437) NEUTROPHILS ABSOLUTE COUNT 4.72 K/ L 1.78-5.38 (BEAKER) (test code = 670) LYMPHOCYTES ABSOLUTE COUNT 1.88 K/ L 1.32-3.57 (BEAKER) (test code = 414) MONOCYTES ABSOLUTE COUNT (BEAKER) 0.76 K/ L 0.30-0.82 (test code = 415) EOSINOPHILS ABSOLUTE COUNT 0.30 K/ L 0.04-0.54 (BEAKER) (test code = 416) BASOPHILS ABSOLUTE COUNT (BEAKER) 0.04 K/ L 0.01-0.08 (test code = 417) IMMATURE GRANULOCYTES-RELATIVE 0 % 0-1 PERCENT (BEAKER) (test code = 2801) AFB CULTURE + [id number] 09:31:00 Test Item Value Reference Range Interpretation Comments CULTURE (BEAKER) (test No acid-fast bacilli code = 1095) isolated in 42 days AFB SMEAR (BEAKER) No acid fast bacilli (test code = 994) seen AFB CULTURE + [id number] 09:31:00 Test Item Value Reference Range Interpretation Comments CULTURE (BEAKER) (test No acid-fast bacilli code = 1095) isolated in 42 days AFB SMEAR (BEAKER) No acid fast bacilli (test code = 994) seen AFB CULTURE + [id number] 09:31:00 Test Item Value Reference Range Interpretation Comments CULTURE (BEAKER) (test No acid-fast bacilli code = 1095) isolated in 42 days AFB SMEAR (BEAKER) No acid fast bacilli (test code = 994) seen FUNGUS CULTURE + [id number] 16:31:00 Test Item Value Reference Range Interpretation Comments CULTURE (BEAKER) (test No fungus isolated in code = 1095) 28 days FUNGUS SMEAR (BEAKER) No fungi seen (test code = 1406) FUNGUS CULTURE + [id number] 16:31:00 Test Item Value Reference Range Interpretation Comments CULTURE (BEAKER) (test No fungus isolated in code = 1095) 28 days FUNGUS SMEAR (BEAKER) No fungi seen (test code = 1406) FUNGUS CULTURE + [id number] 16:31:00 Test Item Value Reference Range Interpretation Comments CULTURE (BEAKER) (test No fungus isolated in code = 1095) 28 days FUNGUS SMEAR (BEAKER) No fungi seen (test code = 1406) ANAEROBIC [id number] 14:24:00 Test Item Value Reference Range Interpretation Comments CULTURE (BEAKER) (test No anaerobes isolated code = 1095) BLOOD [id number] 11:01:00 Test Item Value Reference Range Interpretation Comments CULTURE (BEAKER) (test No growth in 5 days code = 1095) BLOOD [id number] 11:01:00 Test Item Value Reference Range Interpretation Comments CULTURE (BEAKER) (test No growth in 5 days code = 1095) [id number] 06:57:00 Test Item Value Reference Range Interpretation Comments PHOSPHORUS (BEAKER) (test code = 3.5 mg/dL 2.3-4.7 604) [id number] 06:57:00 Test Item Value Reference Range Interpretation Comments MAGNESIUM (BEAKER) (test code = 2.1 mg/dL 1.6-2.6 627) BASIC METABOLIC [id number] 06:57:00 Test Item Value Reference Range Interpretation Comments SODIUM (BEAKER) 138 meq/L 136-145 (test code = 381) POTASSIUM (BEAKER) 4.3 meq/L 3.5-5.1 (test code = 379) CHLORIDE (BEAKER) 106 meq/L 98-107 (test code = 382) CO2 (BEAKER) (test 23 meq/L 22-29 code = 355) BLOOD UREA NITROGEN 17 mg/dL 7-21 (BEAKER) (test code = 354) CREATININE (BEAKER) 1.35 mg/dL 0.57-1.25 H (test code = 358) GLUCOSE RANDOM 99 mg/dL 70-105 (BEAKER) (test code = 652) CALCIUM (BEAKER) 9.1 mg/dL 8.4-10.2 (test code = 697) EGFR (BEAKER) (test 54 mL/min/1.73 ESTIMA MIS GFR IS code = 1092) sq m NOT ACCURATE CREATININE CLEARANCE IN PREDICTING GLOMERULAR FILTRATION RATE . ESTIMATED GFR I S NOT APPLICABLE FOR DIALYSIS PATIEN TS. CBC W/PLT COUNT & AUTO [id number] 06:23:00 Test Item Value Reference Range Interpretation Comments WHITE BLOOD CELL COUNT (BEAKER) 6.0 K/ L 3.5-10.5 (test code = 775) RED BLOOD CELL COUNT (BEAKER) 3.20 M/ L 4.63-6.08 L (test code = 761) HEMOGLOBIN (BEAKER) (test code = 9.1 GM/DL 13.7-17.5 L 410) HEMATOCRIT (BEAKER) (test code = 29.3 % 40.1-51.0 L 411) MEAN CORPUSCULAR VOLUME (BEAKER) 91.6 fL 79.0-92.2 (test code = 753) MEAN CORPUSCULAR HEMOGLOBIN 28.4 pg 25.7-32.2 (BEAKER) (test code = 751) MEAN CORPUSCULAR HEMOGLOBIN CONC 31.1 GM/DL 32.3-36.5 L (BEAKER) (test code = 752) RED CELL DISTRIBUTION WIDTH 14.7 % 11.6-14.4 H (BEAKER) (test code = 412) PLATELET COUNT (BEAKER) (test 300 K/CU MM 150-450 code = 756) MEAN PLATELET VOLUME (BEAKER) 9.5 fL 9.4-12.4 (test code = 754) NUCLEATED RED BLOOD CELLS 0 /100 WBC 0-0 (BEAKER) (test code = 413) NEUTROPHILS RELATIVE PERCENT 55 % (BEAKER) (test code = 429) LYMPHOCYTES RELATIVE PERCENT 24 % (BEAKER) (test code = 430) MONOCYTES RELATIVE PERCENT 16 % (BEAKER) (test code = 431) EOSINOPHILS RELATIVE PERCENT 4 % (BEAKER) (test code = 432) BASOPHILS RELATIVE PERCENT 1 % (BEAKER) (test code = 437) NEUTROPHILS ABSOLUTE COUNT 3.34 K/ L 1.78-5.38 (BEAKER) (test code = 670) LYMPHOCYTES ABSOLUTE COUNT 1.43 K/ L 1.32-3.57 (BEAKER) (test code = 414) MONOCYTES ABSOLUTE COUNT (BEAKER) 0.94 K/ L 0.30-0.82 H (test code = 415) EOSINOPHILS ABSOLUTE COUNT 0.23 K/ L 0.04-0.54 (BEAKER) (test code = 416) BASOPHILS ABSOLUTE COUNT (BEAKER) 0.06 K/ L 0.01-0.08 (test code = 417) IMMATURE GRANULOCYTES-RELATIVE 1 % 0-1 PERCENT (BEAKER) (test code = 2801) [id number] 05:59:00 Test Item Value Reference Range Interpretation Comments PHOSPHORUS (BEAKER) (test code = 3.1 mg/dL 2.3-4.7 604) [id number] 05:59:00 Test Item Value Reference Range Interpretation Comments MAGNESIUM (BEAKER) (test code = 2.1 mg/dL 1.6-2.6 627) BASIC METABOLIC [id number] 05:59:00 Test Item Value Reference Range Interpretation Comments SODIUM (BEAKER) 136 meq/L 136-145 (test code = 381) POTASSIUM (BEAKER) 4.2 meq/L 3.5-5.1 (test code = 379) CHLORIDE (BEAKER) 104 meq/L 98-107 (test code = 382) CO2 (BEAKER) (test 22 meq/L 22-29 code = 355) BLOOD UREA NITROGEN 16 mg/dL 7-21 (BEAKER) (test code = 354) CREATININE (BEAKER) 1.29 mg/dL 0.57-1.25 H (test code = 358) GLUCOSE RANDOM 128 mg/dL 70-105 H (BEAKER) (test code = 652) CALCIUM (BEAKER) 8.5 mg/dL 8.4-10.2 (test code = 697) EGFR (BEAKER) (test 56 mL/min/1.73 ESTIMA MIS GFR IS code = 1092) sq m NOT ACCURATE CREATININE CLEARANCE IN PREDICTING GLOMERULAR FILTRATION RATE . ESTIMATED GFR I S NOT APPLICABLE FOR DIALYSIS PATIEN TS. CBC W/PLT COUNT & AUTO [id number] 05:46:00 Test Item Value Reference Range Interpretation Comments WHITE BLOOD CELL COUNT (BEAKER) 5.8 K/ L 3.5-10.5 (test code = 775) RED BLOOD CELL COUNT (BEAKER) 3.01 M/ L 4.63-6.08 L (test code = 761) HEMOGLOBIN (BEAKER) (test code = 8.5 GM/DL 13.7-17.5 L 410) HEMATOCRIT (BEAKER) (test code = 27.7 % 40.1-51.0 L 411) MEAN CORPUSCULAR VOLUME (BEAKER) 92.0 fL 79.0-92.2 (test code = 753) MEAN CORPUSCULAR HEMOGLOBIN 28.2 pg 25.7-32.2 (BEAKER) (test code = 751) MEAN CORPUSCULAR HEMOGLOBIN CONC 30.7 GM/DL 32.3-36.5 L (BEAKER) (test code = 752) RED CELL DISTRIBUTION WIDTH 14.8 % 11.6-14.4 H (BEAKER) (test code = 412) PLATELET COUNT (BEAKER) (test 273 K/CU MM 150-450 code = 756) MEAN PLATELET VOLUME (BEAKER) 9.6 fL 9.4-12.4 (test code = 754) NUCLEATED RED BLOOD CELLS 0 /100 WBC 0-0 (BEAKER) (test code = 413) NEUTROPHILS RELATIVE PERCENT 54 % (BEAKER) (test code = 429) LYMPHOCYTES RELATIVE PERCENT 27 % (BEAKER) (test code = 430) MONOCYTES RELATIVE PERCENT 13 % (BEAKER) (test code = 431) EOSINOPHILS RELATIVE PERCENT 5 % (BEAKER) (test code = 432) BASOPHILS RELATIVE PERCENT 1 % (BEAKER) (test code = 437) NEUTROPHILS ABSOLUTE COUNT 3.13 K/ L 1.78-5.38 (BEAKER) (test code = 670) LYMPHOCYTES ABSOLUTE COUNT 1.57 K/ L 1.32-3.57 (BEAKER) (test code = 414) MONOCYTES ABSOLUTE COUNT (BEAKER) 0.77 K/ L 0.30-0.82 (test code = 415) EOSINOPHILS ABSOLUTE COUNT 0.26 K/ L 0.04-0.54 (BEAKER) (test code = 416) BASOPHILS ABSOLUTE COUNT (BEAKER) 0.05 K/ L 0.01-0.08 (test code = 417) IMMATURE GRANULOCYTES-RELATIVE 1 % 0-1 PERCENT (BEAKER) (test code = 2801) TISSUE [id number] 09:24:00Surgical Pathology Report Case: [id number] Authorizing Provider: Arthur Oconnor MD Collected: 06/08/20182006 Ordering Location: [address] Received: 06/09/2018 0831 Service Pathologist: Salma Navarro MD Specimen: Amputation Site, right above knee amputation A. EXTREMITY, RIGHT LOWER LEG, ABOVE KNEE AMPUTATION: - VIABLE SKIN, SOFT TISSUE AND BONE MARROW MARGINS - NON-MA RGINAL TISSUE WITH GANGRENOUS NECROSIS OF SKIN AND SOFT TISSUE, ACUTE OSTEOMYELITIS AND OSTEONECROSIS - MODERATE TO SEVERE ATHEROSCLEROSIS Signing Pathologist Direct Phone Line: [phone] signed by Salma Navarro MD on 06/13/2018 at 9:24 [id number] above knee amputationThe specimen is received in [...] great toe submitted for decal. CG/pl Performed.ANAEROBIC [id number] 04:53:00 Test Item Value Reference Range Interpretation Comments CULTURE (BEAKER) (test No anaerobes isolated code = 1095) ANAEROBIC [id number] 04:36:00 Test Item Value Reference Range Interpretation Comments CULTURE (BEAKER) (test No anaerobes isolated code = 1095) [id number] 04:23:00 Test Item Value Reference Range Interpretation Comments MAGNESIUM (BEAKER) 2.2 mg/dL 1.6-2.6 Specimen slightly (test code = 627) hemolyzed [id number] 04:23:00 Test Item Value Reference Range Interpretation Comments PHOSPHORUS (BEAKER) 3.6 mg/dL 2.3-4.7 Specimen slightly (test code = 604) hemolyzed BASIC METABOLIC [id number] 04:23:00 Test Item Value Reference Range Interpretation Comments SODIUM (BEAKER) 138 meq/L 136-145 (test code = 381) POTASSIUM (BEAKER) 4.3 meq/L 3.5-5.1 Specimen slightly (test code = 379) hemolyzed CHLORIDE (BEAKER) 105 meq/L 98-107 (test code = 382) CO2 (BEAKER) (test 25 meq/L 22-29 code = 355) BLOOD UREA NITROGEN 14 mg/dL 7-21 (BEAKER) (test code = 354) CREATININE (BEAKER) 1.43 mg/dL 0.57-1.25 H Specimen slightly (test code = 358) hemolyzed GLUCOSE RANDOM 113 mg/dL 70-105 H (BEAKER) (test code = 652) CALCIUM (BEAKER) 8.9 mg/dL 8.4-10.2 (test code = 697) EGFR (BEAKER) (test 50 mL/min/1.73 ESTIMA MIS GFR IS code = 1092) sq m NOT ACCURATE CREATININE CLEARANCE IN PREDICTING GLOMERULAR FILTRATION RATE . ESTIMATED GFR I S NOT APPLICABLE FOR DIALYSIS PATIEN TS. CBC W/PLT COUNT & AUTO [id number] 04:18:00 Test Item Value Reference Range Interpretation Comments WHITE BLOOD CELL COUNT (BEAKER) 6.3 K/ L 3.5-10.5 (test code = 775) RED BLOOD CELL COUNT (BEAKER) 2.96 M/ L 4.63-6.08 L (test code = 761) HEMOGLOBIN (BEAKER) (test code = 8.5 GM/DL 13.7-17.5 L 410) HEMATOCRIT (BEAKER) (test code = 26.9 % 40.1-51.0 L 411) MEAN CORPUSCULAR VOLUME (BEAKER) 90.9 fL 79.0-92.2 (test code = 753) MEAN CORPUSCULAR HEMOGLOBIN 28.7 pg 25.7-32.2 (BEAKER) (test code = 751) MEAN CORPUSCULAR HEMOGLOBIN CONC 31.6 GM/DL 32.3-36.5 L (BEAKER) (test code = 752) RED CELL DISTRIBUTION WIDTH 14.6 % 11.6-14.4 H (BEAKER) (test code = 412) PLATELET COUNT (BEAKER) (test 260 K/CU MM 150-450 code = 756) MEAN PLATELET VOLUME (BEAKER) 9.7 fL 9.4-12.4 (test code = 754) NUCLEATED RED BLOOD CELLS 0 /100 WBC 0-0 (BEAKER) (test code = 413) NEUTROPHILS RELATIVE PERCENT 50 % (BEAKER) (test code = 429) LYMPHOCYTES RELATIVE PERCENT 30 % (BEAKER) (test code = 430) MONOCYTES RELATIVE PERCENT 14 % (BEAKER) (test code = 431) EOSINOPHILS RELATIVE PERCENT 5 % (BEAKER) (test code = 432) BASOPHILS RELATIVE PERCENT 1 % (BEAKER) (test code = 437) NEUTROPHILS ABSOLUTE COUNT 3.15 K/ L 1.78-5.38 (BEAKER) (test code = 670) LYMPHOCYTES ABSOLUTE COUNT 1.88 K/ L 1.32-3.57 (BEAKER) (test code = 414) MONOCYTES ABSOLUTE COUNT (BEAKER) 0.86 K/ L 0.30-0.82 H (test code = 415) EOSINOPHILS ABSOLUTE COUNT 0.30 K/ L 0.04-0.54 (BEAKER) (test code = 416) BASOPHILS ABSOLUTE COUNT (BEAKER) 0.04 K/ L 0.01-0.08 (test code = 417) IMMATURE GRANULOCYTES-RELATIVE 0 % 0-1 PERCENT (BEAKER) (test code = 2801) [id number] 04:44:00 Test Item Value Reference Range Interpretation Comments PHOSPHORUS (BEAKER) (test code = 3.2 mg/dL 2.3-4.7 604) BASIC METABOLIC [id number] 04:44:00 Test Item Value Reference Range Interpretation Comments SODIUM (BEAKER) 140 meq/L 136-145 (test code = 381) POTASSIUM (BEAKER) 4.4 meq/L 3.5-5.1 (test code = 379) CHLORIDE (BEAKER) 106 meq/L 98-107 (test code = 382) CO2 (BEAKER) (test 28 meq/L 22-29 code = 355) BLOOD UREA NITROGEN 11 mg/dL 7-21 (BEAKER) (test code = 354) CREATININE (BEAKER) 1.25 mg/dL 0.57-1.25 (test code = 358) GLUCOSE RANDOM 109 mg/dL 70-105 H (BEAKER) (test code = 652) CALCIUM (BEAKER) 8.9 mg/dL 8.4-10.2 (test code = 697) EGFR (BEAKER) (test 59 mL/min/1.73 ESTIMA MIS GFR IS code = 1092) sq m NOT ACCURATE CREATININE CLEARANCE IN PREDICTING GLOMERULAR FILTRATION RATE . ESTIMATED GFR I S NOT APPLICABLE FOR DIALYSIS PATIEN TS. [id number] 04:39:00 Test Item Value Reference Range Interpretation Comments MAGNESIUM (BEAKER) (test code = 2.0 mg/dL 1.6-2.6 627) CBC W/PLT COUNT & AUTO [id number] 04:31:00 Test Item Value Reference Range Interpretation Comments WHITE BLOOD CELL COUNT (BEAKER) 6.7 K/ L 3.5-10.5 (test code = 775) RED BLOOD CELL COUNT (BEAKER) 3.05 M/ L 4.63-6.08 L (test code = 761) HEMOGLOBIN (BEAKER) (test code = 8.8 GM/DL 13.7-17.5 L 410) HEMATOCRIT (BEAKER) (test code = 28.1 % 40.1-51.0 L 411) MEAN CORPUSCULAR VOLUME (BEAKER) 92.1 fL 79.0-92.2 (test code = 753) MEAN CORPUSCULAR HEMOGLOBIN 28.9 pg 25.7-32.2 (BEAKER) (test code = 751) MEAN CORPUSCULAR HEMOGLOBIN CONC 31.3 GM/DL 32.3-36.5 L (BEAKER) (test code = 752) RED CELL DISTRIBUTION WIDTH 14.6 % 11.6-14.4 H (BEAKER) (test code = 412) PLATELET COUNT (BEAKER) (test 217 K/CU MM 150-450 code = 756) MEAN PLATELET VOLUME (BEAKER) 9.5 fL 9.4-12.4 (test code = 754) NUCLEATED RED BLOOD CELLS 0 /100 WBC 0-0 (BEAKER) (test code = 413) NEUTROPHILS RELATIVE PERCENT 57 % (BEAKER) (test code = 429) LYMPHOCYTES RELATIVE PERCENT 23 % (BEAKER) (test code = 430) MONOCYTES RELATIVE PERCENT 13 % (BEAKER) (test code = 431) EOSINOPHILS RELATIVE PERCENT 6 % (BEAKER) (test code = 432) BASOPHILS RELATIVE PERCENT 1 % (BEAKER) (test code = 437) NEUTROPHILS ABSOLUTE COUNT 3.82 K/ L 1.78-5.38 (BEAKER) (test code = 670) LYMPHOCYTES ABSOLUTE COUNT 1.55 K/ L 1.32-3.57 (BEAKER) (test code = 414) MONOCYTES ABSOLUTE COUNT (BEAKER) 0.87 K/ L 0.30-0.82 H (test code = 415) EOSINOPHILS ABSOLUTE COUNT 0.38 K/ L 0.04-0.54 (BEAKER) (test code = 416) BASOPHILS ABSOLUTE COUNT (BEAKER) 0.03 K/ L 0.01-0.08 (test code = 417) IMMATURE GRANULOCYTES-RELATIVE 0 % 0-1 PERCENT (BEAKER) (test code = 2801) SURGICALLY OBTAINED CULTURE + GRAM [id number] 08:55:00 Test Item Value Reference Range Interpretation Comments CULTURE (BEAKER) (test code No growth = 1095) GRAM STAIN RESULT (BEAKER) <1+ WBCs (test code = 1123) GRAM STAIN RESULT (BEAKER) No organisms seen (test code = 77521) SURGICALLY OBTAINED CULTURE + GRAM [id number] 08:55:00 Test Item Value Reference Range Interpretation Comments CULTURE (BEAKER) (test code No growth = 1095) GRAM STAIN RESULT (BEAKER) <1+ WBCs (test code = 1123) GRAM STAIN RESULT (BEAKER) No organisms seen (test code = 61621) SURGICALLY OBTAINED CULTURE + GRAM [id number] 08:54:00 Test Item Value Reference Range Interpretation Comments CULTURE (BEAKER) (test code No growth = 1095) GRAM STAIN RESULT (BEAKER) <1+ WBCs (test code = 1123) GRAM STAIN RESULT (BEAKER) No organisms seen (test code = 49418) [id number] 07:09:00 Test Item Value Reference Range Interpretation Comments PHOSPHORUS (BEAKER) (test code = 3.1 mg/dL 2.3-4.7 604) [id number] 07:09:00 Test Item Value Reference Range Interpretation Comments MAGNESIUM (BEAKER) (test code = 1.9 mg/dL 1.6-2.6 627) BASIC METABOLIC [id number] 07:09:00 Test Item Value Reference Range Interpretation Comments SODIUM (BEAKER) 136 meq/L 136-145 (test code = 381) POTASSIUM (BEAKER) 4.3 meq/L 3.5-5.1 (test code = 379) CHLORIDE (BEAKER) 104 meq/L 98-107 (test code = 382) CO2 (BEAKER) (test 24 meq/L 22-29 code = 355) BLOOD UREA NITROGEN 10 mg/dL 7-21 (BEAKER) (test code = 354) CREATININE (BEAKER) 1.34 mg/dL 0.57-1.25 H (test code = 358) GLUCOSE RANDOM 116 mg/dL 70-105 H (BEAKER) (test code = 652) CALCIUM (BEAKER) 8.5 mg/dL 8.4-10.2 (test code = 697) EGFR (BEAKER) (test 54 mL/min/1.73 ESTIMA MIS GFR IS code = 1092) sq m NOT ACCURATE CREATININE CLEARANCE IN PREDICTING GLOMERULAR FILTRATION RATE . ESTIMATED GFR I S NOT APPLICABLE FOR DIALYSIS PATIEN TS. CBC W/PLT COUNT & AUTO [id number] 06:43:00 Test Item Value Reference Range Interpretation Comments WHITE BLOOD CELL COUNT (BEAKER) 7.2 K/ L 3.5-10.5 (test code = 775) RED BLOOD CELL COUNT (BEAKER) 3.02 M/ L 4.63-6.08 L (test code = 761) HEMOGLOBIN (BEAKER) (test code = 8.6 GM/DL 13.7-17.5 L 410) HEMATOCRIT (BEAKER) (test code = 27.5 % 40.1-51.0 L 411) MEAN CORPUSCULAR VOLUME (BEAKER) 91.1 fL 79.0-92.2 (test code = 753) MEAN CORPUSCULAR HEMOGLOBIN 28.5 pg 25.7-32.2 (BEAKER) (test code = 751) MEAN CORPUSCULAR HEMOGLOBIN CONC 31.3 GM/DL 32.3-36.5 L (BEAKER) (test code = 752) RED CELL DISTRIBUTION WIDTH 14.6 % 11.6-14.4 H (BEAKER) (test code = 412) PLATELET COUNT (BEAKER) (test 197 K/CU MM 150-450 code = 756) MEAN PLATELET VOLUME (BEAKER) 9.8 fL 9.4-12.4 (test code = 754) NUCLEATED RED BLOOD CELLS 0 /100 WBC 0-0 (BEAKER) (test code = 413) NEUTROPHILS RELATIVE PERCENT 65 % (BEAKER) (test code = 429) LYMPHOCYTES RELATIVE PERCENT 16 % (BEAKER) (test code = 430) MONOCYTES RELATIVE PERCENT 14 % (BEAKER) (test code = 431) EOSINOPHILS RELATIVE PERCENT 5 % (BEAKER) (test code = 432) BASOPHILS RELATIVE PERCENT 0 % (BEAKER) (test code = 437) NEUTROPHILS ABSOLUTE COUNT 4.67 K/ L 1.78-5.38 (BEAKER) (test code = 670) LYMPHOCYTES ABSOLUTE COUNT 1.16 K/ L 1.32-3.57 L (BEAKER) (test code = 414) MONOCYTES ABSOLUTE COUNT (BEAKER) 0.97 K/ L 0.30-0.82 H (test code = 415) EOSINOPHILS ABSOLUTE COUNT 0.34 K/ L 0.04-0.54 (BEAKER) (test code = 416) BASOPHILS ABSOLUTE COUNT (BEAKER) 0.02 K/ L 0.01-0.08 (test code = 417) IMMATURE GRANULOCYTES-RELATIVE 0 % 0-1 PERCENT (BEAKER) (test code = 2801) SPIN/CONCENTRATION [id number] 14:21:00 Test Item Value Reference Range Interpretation Comments CONCENTRATION CHARGED (BEAKER) (test Done code = 2657) SPIN/CONCENTRATION [id number] 14:21:00 Test Item Value Reference Range Interpretation Comments CONCENTRATION CHARGED (BEAKER) (test Done code = 2657) [id number] 07:26:00 Test Item Value Reference Range Interpretation Comments PHOSPHORUS (BEAKER) (test code = 2.0 mg/dL 2.3-4.7 L 604) [id number] 07:26:00 Test Item Value Reference Range Interpretation Comments MAGNESIUM (BEAKER) (test code = 2.1 mg/dL 1.6-2.6 627) BASIC METABOLIC [id number] 07:26:00 Test Item Value Reference Range Interpretation Comments SODIUM (BEAKER) 137 meq/L 136-145 (test code = 381) POTASSIUM (BEAKER) 4.1 meq/L 3.5-5.1 (test code = 379) CHLORIDE (BEAKER) 106 meq/L 98-107 (test code = 382) CO2 (BEAKER) (test 25 meq/L 22-29 code = 355) BLOOD UREA NITROGEN 8 mg/dL 7-21 (BEAKER) (test code = 354) CREATININE (BEAKER) 1.24 mg/dL 0.57-1.25 (test code = 358) GLUCOSE RANDOM 113 mg/dL 70-105 H (BEAKER) (test code = 652) CALCIUM (BEAKER) 8.6 mg/dL 8.4-10.2 (test code = 697) EGFR (BEAKER) (test 59 mL/min/1.73 ESTIMA MIS GFR IS code = 1092) sq m NOT ACCURATE CREATININE CLEARANCE IN PREDICTING GLOMERULAR FILTRATION RATE . ESTIMATED GFR I S NOT APPLICABLE FOR DIALYSIS PATIEN TS. CBC W/PLT COUNT & AUTO [id number] 07:10:00 Test Item Value Reference Range Interpretation Comments WHITE BLOOD CELL COUNT (BEAKER) 7.3 K/ L 3.5-10.5 (test code = 775) RED BLOOD CELL COUNT (BEAKER) 3.05 M/ L 4.63-6.08 L (test code = 761) HEMOGLOBIN (BEAKER) (test code = 8.9 GM/DL 13.7-17.5 L 410) HEMATOCRIT (BEAKER) (test code = 28.1 % 40.1-51.0 L 411) MEAN CORPUSCULAR VOLUME (BEAKER) 92.1 fL 79.0-92.2 (test code = 753) MEAN CORPUSCULAR HEMOGLOBIN 29.2 pg 25.7-32.2 (BEAKER) (test code = 751) MEAN CORPUSCULAR HEMOGLOBIN CONC 31.7 GM/DL 32.3-36.5 L (BEAKER) (test code = 752) RED CELL DISTRIBUTION WIDTH 14.6 % 11.6-14.4 H (BEAKER) (test code = 412) PLATELET COUNT (BEAKER) (test 170 K/CU MM 150-450 code = 756) MEAN PLATELET VOLUME (BEAKER) 9.3 fL 9.4-12.4 L (test code = 754) NUCLEATED RED BLOOD CELLS 0 /100 WBC 0-0 (BEAKER) (test code = 413) NEUTROPHILS RELATIVE PERCENT 68 % (BEAKER) (test code = 429) LYMPHOCYTES RELATIVE PERCENT 14 % (BEAKER) (test code = 430) MONOCYTES RELATIVE PERCENT 15 % (BEAKER) (test code = 431) EOSINOPHILS RELATIVE PERCENT 3 % (BEAKER) (test code = 432) BASOPHILS RELATIVE PERCENT 0 % (BEAKER) (test code = 437) NEUTROPHILS ABSOLUTE COUNT 4.95 K/ L 1.78-5.38 (BEAKER) (test code = 670) LYMPHOCYTES ABSOLUTE COUNT 1.01 K/ L 1.32-3.57 L (BEAKER) (test code = 414) MONOCYTES ABSOLUTE COUNT (BEAKER) 1.05 K/ L 0.30-0.82 H (test code = 415) EOSINOPHILS ABSOLUTE COUNT 0.20 K/ L 0.04-0.54 (BEAKER) (test code = 416) BASOPHILS ABSOLUTE COUNT (BEAKER) 0.02 K/ L 0.01-0.08 (test code = 417) IMMATURE GRANULOCYTES-RELATIVE 0 % 0-1 PERCENT (BEAKER) (test code = 2801) CBC (HEMOGRAM ONLY)2018-06-09 05:07:00 Test Item Value Reference Range Interpretation Comments WHITE BLOOD CELL COUNT (BEAKER) 10.0 K/ L 3.5-10.5 (test code = 775) RED BLOOD CELL COUNT (BEAKER) 2.92 M/ L 4.63-6.08 L (test code = 761) HEMOGLOBIN (BEAKER) (test code = 8.5 GM/DL 13.7-17.5 L 410) HEMATOCRIT (BEAKER) (test code = 26.4 % 40.1-51.0 L 411) MEAN CORPUSCULAR VOLUME (BEAKER) 90.4 fL 79.0-92.2 (test code = 753) MEAN CORPUSCULAR HEMOGLOBIN 29.1 pg 25.7-32.2 (BEAKER) (test code = 751) MEAN CORPUSCULAR HEMOGLOBIN CONC 32.2 GM/DL 32.3-36.5 L (BEAKER) (test code = 752) RED CELL DISTRIBUTION WIDTH 14.7 % 11.6-14.4 H (BEAKER) (test code = 412) PLATELET COUNT (BEAKER) (test 195 K/CU MM 150-450 code = 756) MEAN PLATELET VOLUME (BEAKER) 9.1 fL 9.4-12.4 L (test code = 754) NUCLEATED RED BLOOD CELLS 0 /100 WBC 0-0 (BEAKER) (test code = 413) [id number] 04:29:00 Test Item Value Reference Range Interpretation Comments MAGNESIUM (BEAKER) (test code = 1.8 mg/dL 1.6-2.6 627) BASIC METABOLIC [id number] 04:29:00 Test Item Value Reference Range Interpretation Comments SODIUM (BEAKER) 134 meq/L 136-145 L (test code = 381) POTASSIUM (BEAKER) 3.8 meq/L 3.5-5.1 (test code = 379) CHLORIDE (BEAKER) 106 meq/L 98-107 (test code = 382) CO2 (BEAKER) (test 21 meq/L 22-29 L code = 355) BLOOD UREA NITROGEN 9 mg/dL 7-21 (BEAKER) (test code = 354) CREATININE (BEAKER) 1.43 mg/dL 0.57-1.25 H (test code = 358) GLUCOSE RANDOM 107 mg/dL 70-105 H (BEAKER) (test code = 652) CALCIUM (BEAKER) 8.3 mg/dL 8.4-10.2 L (test code = 697) EGFR (BEAKER) (test 50 mL/min/1.73 ESTIMA MIS GFR IS code = 1092) sq m NOT ACCURATE CREATININE CLEARANCE IN PREDICTING GLOMERULAR FILTRATION RATE . ESTIMATED GFR I S NOT APPLICABLE FOR DIALYSIS PATIDAYANARA DERAS [id number] 04:17:00 Test Item Value Reference Range Interpretation Comments PARTIAL THROMBOPLASTIN TIME 72.1 seconds 22.5-36.0 H (BEAKER) (test code = 760) CBC (HEMOGRAM ONLY)2018-06-08 04:09:00 Test Item Value Reference Range Interpretation Comments WHITE BLOOD CELL COUNT (BEAKER) 8.0 K/ L 3.5-10.5 (test code = 775) RED BLOOD CELL COUNT (BEAKER) 2.88 M/ L 4.63-6.08 L (test code = 761) HEMOGLOBIN (BEAKER) (test code = 8.6 GM/DL 13.7-17.5 L 410) HEMATOCRIT (BEAKER) (test code = 26.1 % 40.1-51.0 L 411) MEAN CORPUSCULAR VOLUME (BEAKER) 90.6 fL 79.0-92.2 (test code = 753) MEAN CORPUSCULAR HEMOGLOBIN 29.9 pg 25.7-32.2 (BEAKER) (test code = 751) MEAN CORPUSCULAR HEMOGLOBIN CONC 33.0 GM/DL 32.3-36.5 (BEAKER) (test code = 752) RED CELL DISTRIBUTION WIDTH 14.6 % 11.6-14.4 H (BEAKER) (test code = 412) PLATELET COUNT (BEAKER) (test 198 K/CU MM 150-450 code = 756) MEAN PLATELET VOLUME (BEAKER) 9.0 fL 9.4-12.4 L (test code = 754) NUCLEATED RED BLOOD CELLS 0 /100 WBC 0-0 (BEAKER) (test code = 413) [id number] 21:23:00 Test Item Value Reference Range Interpretation Comments PARTIAL THROMBOPLASTIN TIME 44.9 seconds 22.5-36.0 H (BEAKER) (test code = 760) [id number] 10:51:00 Test Item Value Reference Range Interpretation Comments PARTIAL THROMBOPLASTIN TIME 22.3 seconds 22.5-36.0 L (BEAKER) (test code = 760) [id number] 02:12:00 Test Item Value Reference Range Interpretation Comments PARTIAL THROMBOPLASTIN TIME 23.9 seconds 22.5-36.0 (BEAKER) (test code = 760) [id number] 02:11:00 Test Item Value Reference Range Interpretation Comments MAGNESIUM (BEAKER) 2.0 mg/dL 1.6-2.6 Specimen slightly (test code = 627) hemolyzed BASIC METABOLIC [id number] 02:11:00 Test Item Value Reference Range Interpretation Comments SODIUM (BEAKER) 136 meq/L 136-145 (test code = 381) POTASSIUM (BEAKER) 4.2 meq/L 3.5-5.1 Specimen slightly (test code = 379) hemolyzed CHLORIDE (BEAKER) 105 meq/L 98-107 (test code = 382) CO2 (BEAKER) (test 22 meq/L 22-29 code = 355) BLOOD UREA NITROGEN 8 mg/dL 7-21 (BEAKER) (test code = 354) CREATININE (BEAKER) 1.33 mg/dL 0.57-1.25 H Specimen slightly (test code = 358) hemolyzed GLUCOSE RANDOM 98 mg/dL 70-105 (BEAKER) (test code = 652) CALCIUM (BEAKER) 9.2 mg/dL 8.4-10.2 (test code = 697) EGFR (BEAKER) (test 54 mL/min/1.73 ESTIMA MIS GFR IS code = 1092) sq m NOT ACCURATE CREATININE CLEARANCE IN PREDICTING GLOMERULAR FILTRATION RATE . ESTIMATED GFR I S NOT APPLICABLE FOR DIALYSIS PATIEN TS. CBC (HEMOGRAM ONLY)2018-06-07 01:58:00 Test Item Value Reference Range Interpretation Comments WHITE BLOOD CELL COUNT (BEAKER) 11.3 K/ L 3.5-10.5 H (test code = 775) RED BLOOD CELL COUNT (BEAKER) 3.63 M/ L 4.63-6.08 L (test code = 761) HEMOGLOBIN (BEAKER) (test code = 10.7 GM/DL 13.7-17.5 L 410) HEMATOCRIT (BEAKER) (test code = 33.0 % 40.1-51.0 L 411) MEAN CORPUSCULAR VOLUME (BEAKER) 90.9 fL 79.0-92.2 (test code = 753) MEAN CORPUSCULAR HEMOGLOBIN 29.5 pg 25.7-32.2 (BEAKER) (test code = 751) MEAN CORPUSCULAR HEMOGLOBIN CONC 32.4 GM/DL 32.3-36.5 (BEAKER) (test code = 752) RED CELL DISTRIBUTION WIDTH 14.5 % 11.6-14.4 H (BEAKER) (test code = 412) PLATELET COUNT (BEAKER) (test 253 K/CU MM 150-450 code = 756) MEAN PLATELET VOLUME (BEAKER) 8.6 fL 9.4-12.4 L (test code = 754) NUCLEATED RED BLOOD CELLS 0 /100 WBC 0-0 (BEAKER) (test code = 413) [id number] 21:17:00 Test Item Value Reference Range Interpretation Comments PROTIME (BEAKER) (test code = 15.3 seconds 11.7-14.7 H 759) INR (BEAKER) (test code = 370) 1.2 <=5.9 PARTIAL THROMBOPLASTIN TIME > seconds 22.5-36.0 HH (BEAKER) (test code = 760) RECOMMENDED COUMADIN/WARFARIN INR THERAPY RANGESSTANDARD DOSE: 2.0 - 3.0 Includes: PROPHYLAXIS forvenous thrombosis, systemic embolization; TREATMENT for venous thrombosis and/or pulmonary embolus.HIGH RISK: Target INR is 2.5-3.5 for patients with mechanical heart valves.HEMOGLOBIN AND [id number] 19:59:00 Test Item Value Reference Range Interpretation Comments HEMOGLOBIN (BEAKER) (test code = 9.0 GM/DL 13.7-17.5 L 410) HEMATOCRIT (BEAKER) (test code = 26.0 % 40.1-51.0 L 411) [id number] 19:23:00 Test Item Value Reference Range Interpretation Comments MAGNESIUM (BEAKER) 2.2 mg/dL 1.6-2.6 Specimen moderately (test code = 627) hemolyzed [id number] 19:23:00 Test Item Value Reference Range Interpretation Comments POTASSIUM (BEAKER) 4.5 meq/L 3.5-5.1 Specimen moderately (test code = 379) hemolyzed SODIUM NA-STAT [id number] 19:09:00 Test Item Value Reference Range Interpretation Comments SODIUM (BEAKER) (test code = 381) 135 meq/L 135-148 [id number] 16:38:00 Test Item Value Reference Range Interpretation Comments ACTIVATED CLOTTING TIME 329 sec TEST ED AT [facility] 6720 (BEAKER) (test code = [place] [address]) [id number] CALCIUM, [id number] 16:06:00 Test Item Value Reference Range Interpretation Comments CALCIUM IONIZED (BEAKER) (test 1.19 mmol/L 1.12-1.27 code = 698) PH, BLOOD (BEAKER) (test code = 7.37 1810) POTASSIUM-STAT [id number] 16:06:00 Test Item Value Reference Range Interpretation Comments POTASSIUM (BEAKER) (test code = 3.7 meq/L 3.6-5.5 379) BLOOD GAS, [id number] 16:06:00 Test Item Value Reference Range Interpretation Comments PH ARTERIAL (BEAKER) (test code = 7.37 7.35-7.45 383) PCO2 ARTERIAL (BEAKER) (test code 39 mmHg 35-45 = 384) PO2 ARTERIAL (BEAKER) (test code 210 mmHg 80-90 H = 385) O2 SATURATION ARTERIAL (BEAKER) 99.4 % 96.0-97.0 H (test code = 386) HCO3 ARTERIAL (BEAKER) (test code 22 mmol/L 21-29 = 388) BASE EXCESS ARTERIAL (BEAKER) -3.5 mmol/L -2.0-3.0 L (test code = 387) PATIENT TEMPERATURE (BEAKER) 35.0 C (test code = 1818) FIO2 (BEAKER) (test code = 1819) 50.0 % SODIUM NA-STAT [id number] 16:06:00 Test Item Value Reference Range Interpretation Comments SODIUM (BEAKER) (test code = 381) 134 meq/L 135-148 L GLUCOSE-STAT [id number] 16:06:00 Test Item Value Reference Range Interpretation Comments GLUCOSE RANDOM (BEAKER) (test code 115 mg/dL 70-110 H = 652) HGB/HCT (H&H) - STAT [id number] 16:06:00 Test Item Value Reference Range Interpretation Comments HEMOGLOBIN (BEAKER) (test code = 8.4 g/dL 13.0-16.8 L 410) HEMATOCRIT (BEAKER) (test code = 25.0 % 40.0-50.0 L 411) [id number] 05:56:00 Test Item Value Reference Range Interpretation Comments PARTIAL THROMBOPLASTIN TIME 104.4 seconds 22.5-36.0 H (BEAKER) (test code = 760) [id number] 05:44:00 Test Item Value Reference Range Interpretation Comments MAGNESIUM (BEAKER) (test code = 1.8 mg/dL 1.6-2.6 627) COMPREHENSIVE METABOLIC [id number] 05:44:00 Test Item Value Reference Range Interpretation Comments TOTAL PROTEIN 6.6 gm/dL 6.0-8.3 (BEAKER) (test code = 770) ALBUMIN (BEAKER) 3.6 g/dL 3.5-5.0 (test code = 1145) ALKALINE PHOSPHATASE 78 U/L 40-150 (BEAKER) (test code = 346) BILIRUBIN TOTAL 0.4 mg/dL 0.2-1.2 (BEAKER) (test code = 377) SODIUM (BEAKER) (test 135 meq/L 136-145 L code = 381) POTASSIUM (BEAKER) 4.0 meq/L 3.5-5.1 (test code = 379) CHLORIDE (BEAKER) 106 meq/L 98-107 (test code = 382) CO2 (BEAKER) (test 22 meq/L 22-29 code = 355) BLOOD UREA NITROGEN 9 mg/dL 7-21 (BEAKER) (test code = 354) CREATININE (BEAKER) 1.41 mg/dL 0.57-1.25 H (test code = 358) GLUCOSE RANDOM 107 mg/dL 70-105 H (BEAKER) (test code = 652) CALCIUM (BEAKER) 9.2 mg/dL 8.4-10.2 (test code = 697) AST (SGOT) (BEAKER) 82 U/L 5-34 H (test code = 353) ALT (SGPT) (BEAKER) 22 U/L 6-55 (test code = 347) EGFR (BEAKER) (test 51 mL/min/1.73 ESTIMA MIS GFR IS code = 1092) sq m NOT ACCURATE CREATININE CLEARANCE IN PREDICTING GLOMERULAR FILTRATION RATE . ESTIMATED GFR I S NOT APPLICABLE FOR DIALYSIS PATIEN TS. BASIC METABOLIC [id number] 05:44:00 Test Item Value Reference Range Interpretation Comments SODIUM (BEAKER) 135 meq/L 136-145 L (test code = 381) POTASSIUM (BEAKER) 4.0 meq/L 3.5-5.1 (test code = 379) CHLORIDE (BEAKER) 106 meq/L 98-107 (test code = 382) CO2 (BEAKER) (test 22 meq/L 22-29 code = 355) BLOOD UREA NITROGEN 9 mg/dL 7-21 (BEAKER) (test code = 354) CREATININE (BEAKER) 1.41 mg/dL 0.57-1.25 H (test code = 358) GLUCOSE RANDOM 107 mg/dL 70-105 H (BEAKER) (test code = 652) CALCIUM (BEAKER) 9.2 mg/dL 8.4-10.2 (test code = 697) EGFR (BEAKER) (test 51 mL/min/1.73 ESTIMA MIS GFR IS code = 1092) sq m NOT ACCURATE CREATININE CLEARANCE IN PREDICTING GLOMERULAR FILTRATION RATE . ESTIMATED GFR I S NOT APPLICABLE FOR DIALYSIS PATIEN TS. CBC W/PLT COUNT & AUTO [id number] 05:11:00 Test Item Value Reference Range Interpretation Comments WHITE BLOOD CELL COUNT (BEAKER) 7.8 K/ L 3.5-10.5 (test code = 775) RED BLOOD CELL COUNT (BEAKER) 3.66 M/ L 4.63-6.08 L (test code = 761) HEMOGLOBIN (BEAKER) (test code = 10.7 GM/DL 13.7-17.5 L 410) HEMATOCRIT (BEAKER) (test code = 32.7 % 40.1-51.0 L 411) MEAN CORPUSCULAR VOLUME (BEAKER) 89.3 fL 79.0-92.2 (test code = 753) MEAN CORPUSCULAR HEMOGLOBIN 29.2 pg 25.7-32.2 (BEAKER) (test code = 751) MEAN CORPUSCULAR HEMOGLOBIN CONC 32.7 GM/DL 32.3-36.5 (BEAKER) (test code = 752) RED CELL DISTRIBUTION WIDTH 14.2 % 11.6-14.4 (BEAKER) (test code = 412) PLATELET COUNT (BEAKER) (test 283 K/CU MM 150-450 code = 756) MEAN PLATELET VOLUME (BEAKER) 8.8 fL 9.4-12.4 L (test code = 754) NUCLEATED RED BLOOD CELLS 0 /100 WBC 0-0 (BEAKER) (test code = 413) NEUTROPHILS RELATIVE PERCENT 66 % (BEAKER) (test code = 429) LYMPHOCYTES RELATIVE PERCENT 21 % (BEAKER) (test code = 430) MONOCYTES RELATIVE PERCENT 10 % (BEAKER) (test code = 431) EOSINOPHILS RELATIVE PERCENT 3 % (BEAKER) (test code = 432) BASOPHILS RELATIVE PERCENT 0 % (BEAKER) (test code = 437) NEUTROPHILS ABSOLUTE COUNT 5.15 K/ L 1.78-5.38 (BEAKER) (test code = 670) LYMPHOCYTES ABSOLUTE COUNT 1.60 K/ L 1.32-3.57 (BEAKER) (test code = 414) MONOCYTES ABSOLUTE COUNT (BEAKER) 0.74 K/ L 0.30-0.82 (test code = 415) EOSINOPHILS ABSOLUTE COUNT 0.25 K/ L 0.04-0.54 (BEAKER) (test code = 416) BASOPHILS ABSOLUTE COUNT (BEAKER) 0.03 K/ L 0.01-0.08 (test code = 417) IMMATURE GRANULOCYTES-RELATIVE 0 % 0-1 PERCENT (BEAKER) (test code = 2801) CBC (HEMOGRAM ONLY)2018-06-06 05:11:00 Test Item Value Reference Range Interpretation Comments WHITE BLOOD CELL COUNT (BEAKER) 7.8 K/ L 3.5-10.5 (test code = 775) RED BLOOD CELL COUNT (BEAKER) 3.66 M/ L 4.63-6.08 L (test code = 761) HEMOGLOBIN (BEAKER) (test code = 10.7 GM/DL 13.7-17.5 L 410) HEMATOCRIT (BEAKER) (test code = 32.7 % 40.1-51.0 L 411) MEAN CORPUSCULAR VOLUME (BEAKER) 89.3 fL 79.0-92.2 (test code = 753) MEAN CORPUSCULAR HEMOGLOBIN 29.2 pg 25.7-32.2 (BEAKER) (test code = 751) MEAN CORPUSCULAR HEMOGLOBIN CONC 32.7 GM/DL 32.3-36.5 (BEAKER) (test code = 752) RED CELL DISTRIBUTION WIDTH 14.2 % 11.6-14.4 (BEAKER) (test code = 412) PLATELET COUNT (BEAKER) (test 283 K/CU MM 150-450 code = 756) MEAN PLATELET VOLUME (BEAKER) 8.8 fL 9.4-12.4 L (test code = 754) NUCLEATED RED BLOOD CELLS 0 /100 WBC 0-0 (BEAKER) (test code = 413) [id number] 21:45:00 Test Item Value Reference Range Interpretation Comments PARTIAL THROMBOPLASTIN TIME 51.5 seconds 22.5-36.0 H (BEAKER) (test code = 760) [id number] 14:32:00 Test Item Value Reference Range Interpretation Comments PARTIAL THROMBOPLASTIN TIME 33.6 seconds 22.5-36.0 (BEAKER) (test code = 760) [id number] 06:41:00 Test Item Value Reference Range Interpretation Comments PARTIAL THROMBOPLASTIN TIME 30.4 seconds 22.5-36.0 (BEAKER) (test code = 760) Prior to initiating heparinCBC (HEMOGRAM ONLY)2018-06-05 06:28:00 Test Item Value Reference Range Interpretation Comments WHITE BLOOD CELL COUNT (BEAKER) 15.2 K/ L 3.5-10.5 H (test code = 775) RED BLOOD CELL COUNT (BEAKER) 3.99 M/ L 4.63-6.08 L (test code = 761) HEMOGLOBIN (BEAKER) (test code = 11.8 GM/DL 13.7-17.5 L 410) HEMATOCRIT (BEAKER) (test code = 35.6 % 40.1-51.0 L 411) MEAN CORPUSCULAR VOLUME (BEAKER) 89.2 fL 79.0-92.2 (test code = 753) MEAN CORPUSCULAR HEMOGLOBIN 29.6 pg 25.7-32.2 (BEAKER) (test code = 751) MEAN CORPUSCULAR HEMOGLOBIN CONC 33.1 GM/DL 32.3-36.5 (BEAKER) (test code = 752) RED CELL DISTRIBUTION WIDTH 14.4 % 11.6-14.4 (BEAKER) (test code = 412) PLATELET COUNT (BEAKER) (test 336 K/CU MM 150-450 code = 756) MEAN PLATELET VOLUME (BEAKER) 8.8 fL 9.4-12.4 L (test code = 754) NUCLEATED RED BLOOD CELLS 0 /100 WBC 0-0 (BEAKER) (test code = 413) COMPREHENSIVE METABOLIC [id number] 07:39:00 Test Item Value Reference Range Interpretation Comments TOTAL PROTEIN 5.9 gm/dL 6.0-8.3 L (BEAKER) (test code = 770) ALBUMIN (BEAKER) 3.1 g/dL 3.5-5.0 L (test code = 1145) ALKALINE PHOSPHATASE 61 U/L 40-150 (BEAKER) (test code = 346) BILIRUBIN TOTAL 0.2 mg/dL 0.2-1.2 (BEAKER) (test code = 377) SODIUM (BEAKER) (test 139 meq/L 136-145 code = 381) POTASSIUM (BEAKER) 4.7 meq/L 3.5-5.1 (test code = 379) CHLORIDE (BEAKER) 109 meq/L 98-107 H (test code = 382) CO2 (BEAKER) (test 24 meq/L 22-29 code = 355) BLOOD UREA NITROGEN 21 mg/dL 7-21 (BEAKER) (test code = 354) CREATININE (BEAKER) 1.61 mg/dL 0.57-1.25 H (test code = 358) GLUCOSE RANDOM 101 mg/dL 70-105 (BEAKER) (test code = 652) CALCIUM (BEAKER) 8.4 mg/dL 8.4-10.2 (test code = 697) AST (SGOT) (BEAKER) 12 U/L 5-34 (test code = 353) ALT (SGPT) (BEAKER) 6 U/L 6-55 (test code = 347) EGFR (BEAKER) (test 44 mL/min/1.73 ESTIMA MIS GFR IS code = 1092) sq m NOT ACCURATE CREATININE CLEARANCE IN PREDICTING GLOMERULAR FILTRATION RATE . ESTIMATED GFR I S NOT APPLICABLE FOR DIALYSIS PATIEN TS. CBC W/PLT COUNT & AUTO [id number] 06:16:00 Test Item Value Reference Range Interpretation Comments WHITE BLOOD CELL COUNT (BEAKER) 6.3 K/ L 3.5-10.5 (test code = 775) RED BLOOD CELL COUNT (BEAKER) 3.55 M/ L 4.63-6.08 L (test code = 761) HEMOGLOBIN (BEAKER) (test code = 10.5 GM/DL 13.7-17.5 L 410) HEMATOCRIT (BEAKER) (test code = 32.7 % 40.1-51.0 L 411) MEAN CORPUSCULAR VOLUME (BEAKER) 92.1 fL 79.0-92.2 (test code = 753) MEAN CORPUSCULAR HEMOGLOBIN 29.6 pg 25.7-32.2 (BEAKER) (test code = 751) MEAN CORPUSCULAR HEMOGLOBIN CONC 32.1 GM/DL 32.3-36.5 L (BEAKER) (test code = 752) RED CELL DISTRIBUTION WIDTH 14.2 % 11.6-14.4 (BEAKER) (test code = 412) PLATELET COUNT (BEAKER) (test 363 K/CU MM 150-450 code = 756) MEAN PLATELET VOLUME (BEAKER) 8.6 fL 9.4-12.4 L (test code = 754) NUCLEATED RED BLOOD CELLS 0 /100 WBC 0-0 (BEAKER) (test code = 413) NEUTROPHILS RELATIVE PERCENT 73 % (BEAKER) (test code = 429) LYMPHOCYTES RELATIVE PERCENT 20 % (BEAKER) (test code = 430) MONOCYTES RELATIVE PERCENT 5 % (BEAKER) (test code = 431) EOSINOPHILS RELATIVE PERCENT 2 % (BEAKER) (test code = 432) BASOPHILS RELATIVE PERCENT 1 % (BEAKER) (test code = 437) NEUTROPHILS ABSOLUTE COUNT 4.55 K/ L 1.78-5.38 (BEAKER) (test code = 670) LYMPHOCYTES ABSOLUTE COUNT 1.24 K/ L 1.32-3.57 L (BEAKER) (test code = 414) MONOCYTES ABSOLUTE COUNT (BEAKER) 0.31 K/ L 0.30-0.82 (test code = 415) EOSINOPHILS ABSOLUTE COUNT 0.13 K/ L 0.04-0.54 (BEAKER) (test code = 416) BASOPHILS ABSOLUTE COUNT (BEAKER) 0.03 K/ L 0.01-0.08 (test code = 417) IMMATURE GRANULOCYTES-RELATIVE 0 % 0-1 PERCENT (BEAKER) (test code = 2801) COMPREHENSIVE METABOLIC [id number] 06:45:00 Test Item Value Reference Range Interpretation Comments TOTAL PROTEIN 6.2 gm/dL 6.0-8.3 (BEAKER) (test code = 770) ALBUMIN (BEAKER) 3.2 g/dL 3.5-5.0 L (test code = 1145) ALKALINE PHOSPHATASE 68 U/L 40-150 (BEAKER) (test code = 346) BILIRUBIN TOTAL 0.3 mg/dL 0.2-1.2 (BEAKER) (test code = 377) SODIUM (BEAKER) (test 140 meq/L 136-145 code = 381) POTASSIUM (BEAKER) 4.7 meq/L 3.5-5.1 (test code = 379) CHLORIDE (BEAKER) 109 meq/L 98-107 H (test code = 382) CO2 (BEAKER) (test 25 meq/L 22-29 code = 355) BLOOD UREA NITROGEN 20 mg/dL 7-21 (BEAKER) (test code = 354) CREATININE (BEAKER) 1.71 mg/dL 0.57-1.25 H (test code = 358) GLUCOSE RANDOM 104 mg/dL 70-105 (BEAKER) (test code = 652) CALCIUM (BEAKER) 8.4 mg/dL 8.4-10.2 (test code = 697) AST (SGOT) (BEAKER) 11 U/L 5-34 (test code = 353) ALT (SGPT) (BEAKER) 8 U/L 6-55 (test code = 347) EGFR (BEAKER) (test 41 mL/min/1.73 ESTIMA MIS GFR IS code = 1092) sq m NOT ACCURATE CREATININE CLEARANCE IN PREDICTING GLOMERULAR FILTRATION RATE . ESTIMATED GFR I S NOT APPLICABLE FOR DIALYSIS PATIEN TS. CBC W/PLT COUNT & AUTO [id number] 05:36:00 Test Item Value Reference Range Interpretation Comments WHITE BLOOD CELL COUNT (BEAKER) 7.0 K/ L 3.5-10.5 (test code = 775) RED BLOOD CELL COUNT (BEAKER) 3.55 M/ L 4.63-6.08 L (test code = 761) HEMOGLOBIN (BEAKER) (test code = 10.3 GM/DL 13.7-17.5 L 410) HEMATOCRIT (BEAKER) (test code = 33.1 % 40.1-51.0 L 411) MEAN CORPUSCULAR VOLUME (BEAKER) 93.2 fL 79.0-92.2 H (test code = 753) MEAN CORPUSCULAR HEMOGLOBIN 29.0 pg 25.7-32.2 (BEAKER) (test code = 751) MEAN CORPUSCULAR HEMOGLOBIN CONC 31.1 GM/DL 32.3-36.5 L (BEAKER) (test code = 752) RED CELL DISTRIBUTION WIDTH 14.2 % 11.6-14.4 (BEAKER) (test code = 412) PLATELET COUNT (BEAKER) (test 409 K/CU MM 150-450 code = 756) MEAN PLATELET VOLUME (BEAKER) 8.7 fL 9.4-12.4 L (test code = 754) NUCLEATED RED BLOOD CELLS 0 /100 WBC 0-0 (BEAKER) (test code = 413) NEUTROPHILS RELATIVE PERCENT 69 % (BEAKER) (test code = 429) LYMPHOCYTES RELATIVE PERCENT 21 % (BEAKER) (test code = 430) MONOCYTES RELATIVE PERCENT 7 % (BEAKER) (test code = 431) EOSINOPHILS RELATIVE PERCENT 2 % (BEAKER) (test code = 432) BASOPHILS RELATIVE PERCENT 1 % (BEAKER) (test code = 437) NEUTROPHILS ABSOLUTE COUNT 4.87 K/ L 1.78-5.38 (BEAKER) (test code = 670) LYMPHOCYTES ABSOLUTE COUNT 1.46 K/ L 1.32-3.57 (BEAKER) (test code = 414) MONOCYTES ABSOLUTE COUNT (BEAKER) 0.47 K/ L 0.30-0.82 (test code = 415) EOSINOPHILS ABSOLUTE COUNT 0.16 K/ L 0.04-0.54 (BEAKER) (test code = 416) BASOPHILS ABSOLUTE COUNT (BEAKER) 0.04 K/ L 0.01-0.08 (test code = 417) IMMATURE GRANULOCYTES-RELATIVE 0 % 0-1 PERCENT (BEAKER) (test code = 2801) CBC W/PLT COUNT & AUTO [id number] 06:02:00 Test Item Value Reference Range Interpretation Comments WHITE BLOOD CELL COUNT (BEAKER) 7.8 K/ L 3.5-10.5 (test code = 775) RED BLOOD CELL COUNT (BEAKER) 3.25 M/ L 4.63-6.08 L (test code = 761) HEMOGLOBIN (BEAKER) (test code = 9.6 GM/DL 13.7-17.5 L 410) HEMATOCRIT (BEAKER) (test code = 30.2 % 40.1-51.0 L 411) MEAN CORPUSCULAR VOLUME (BEAKER) 92.9 fL 79.0-92.2 H (test code = 753) MEAN CORPUSCULAR HEMOGLOBIN 29.5 pg 25.7-32.2 (BEAKER) (test code = 751) MEAN CORPUSCULAR HEMOGLOBIN CONC 31.8 GM/DL 32.3-36.5 L (BEAKER) (test code = 752) RED CELL DISTRIBUTION WIDTH 14.3 % 11.6-14.4 (BEAKER) (test code = 412) PLATELET COUNT (BEAKER) (test 344 K/CU MM 150-450 code = 756) MEAN PLATELET VOLUME (BEAKER) 8.7 fL 9.4-12.4 L (test code = 754) NUCLEATED RED BLOOD CELLS 0 /100 WBC 0-0 (BEAKER) (test code = 413) NEUTROPHILS RELATIVE PERCENT 66 % (BEAKER) (test code = 429) LYMPHOCYTES RELATIVE PERCENT 19 % (BEAKER) (test code = 430) MONOCYTES RELATIVE PERCENT 8 % (BEAKER) (test code = 431) EOSINOPHILS RELATIVE PERCENT 6 % (BEAKER) (test code = 432) BASOPHILS RELATIVE PERCENT 1 % (BEAKER) (test code = 437) NEUTROPHILS ABSOLUTE COUNT 5.20 K/ L 1.78-5.38 (BEAKER) (test code = 670) LYMPHOCYTES ABSOLUTE COUNT 1.51 K/ L 1.32-3.57 (BEAKER) (test code = 414) MONOCYTES ABSOLUTE COUNT (BEAKER) 0.61 K/ L 0.30-0.82 (test code = 415) EOSINOPHILS ABSOLUTE COUNT 0.43 K/ L 0.04-0.54 (BEAKER) (test code = 416) BASOPHILS ABSOLUTE COUNT (BEAKER) 0.05 K/ L 0.01-0.08 (test code = 417) IMMATURE GRANULOCYTES-RELATIVE 0 % 0-1 PERCENT (BEAKER) (test code = 2801) CBC W/PLT COUNT & AUTO [id number] 04:40:00 Test Item Value Reference Range Interpretation Comments WHITE BLOOD CELL COUNT (BEAKER) 7.7 K/ L 3.5-10.5 (test code = 775) RED BLOOD CELL COUNT (BEAKER) 3.27 M/ L 4.63-6.08 L (test code = 761) HEMOGLOBIN (BEAKER) (test code = 9.7 GM/DL 13.7-17.5 L 410) HEMATOCRIT (BEAKER) (test code = 30.6 % 40.1-51.0 L 411) MEAN CORPUSCULAR VOLUME (BEAKER) 93.6 fL 79.0-92.2 H (test code = 753) MEAN CORPUSCULAR HEMOGLOBIN 29.7 pg 25.7-32.2 (BEAKER) (test code = 751) MEAN CORPUSCULAR HEMOGLOBIN CONC 31.7 GM/DL 32.3-36.5 L (BEAKER) (test code = 752) RED CELL DISTRIBUTION WIDTH 14.4 % 11.6-14.4 (BEAKER) (test code = 412) PLATELET COUNT (BEAKER) (test 329 K/CU MM 150-450 code = 756) MEAN PLATELET VOLUME (BEAKER) 8.5 fL 9.4-12.4 L (test code = 754) NUCLEATED RED BLOOD CELLS 0 /100 WBC 0-0 (BEAKER) (test code = 413) NEUTROPHILS RELATIVE PERCENT 64 % (BEAKER) (test code = 429) LYMPHOCYTES RELATIVE PERCENT 21 % (BEAKER) (test code = 430) MONOCYTES RELATIVE PERCENT 10 % (BEAKER) (test code = 431) EOSINOPHILS RELATIVE PERCENT 5 % (BEAKER) (test code = 432) BASOPHILS RELATIVE PERCENT 1 % (BEAKER) (test code = 437) NEUTROPHILS ABSOLUTE COUNT 4.88 K/ L 1.78-5.38 (BEAKER) (test code = 670) LYMPHOCYTES ABSOLUTE COUNT 1.60 K/ L 1.32-3.57 (BEAKER) (test code = 414) MONOCYTES ABSOLUTE COUNT (BEAKER) 0.74 K/ L 0.30-0.82 (test code = 415) EOSINOPHILS ABSOLUTE COUNT 0.37 K/ L 0.04-0.54 (BEAKER) (test code = 416) BASOPHILS ABSOLUTE COUNT (BEAKER) 0.05 K/ L 0.01-0.08 (test code = 417) IMMATURE GRANULOCYTES-RELATIVE 0 % 0-1 PERCENT (BEAKER) (test code = 2801) [id number] 06:27:00 Test Item Value Reference Range Interpretation Comments MAGNESIUM (BEAKER) 2.2 mg/dL 1.6-2.6 Specimen slightly (test code = 627) hemolyzed BASIC METABOLIC [id number] 06:27:00 Test Item Value Reference Range Interpretation Comments SODIUM (BEAKER) 142 meq/L 136-145 (test code = 381) POTASSIUM (BEAKER) 4.6 meq/L 3.5-5.1 Specimen slightly (test code = 379) hemolyzed CHLORIDE (BEAKER) 111 meq/L 98-107 H (test code = 382) CO2 (BEAKER) (test 24 meq/L 22-29 code = 355) BLOOD UREA NITROGEN 14 mg/dL 7-21 (BEAKER) (test code = 354) CREATININE (BEAKER) 1.63 mg/dL 0.57-1.25 H Specimen slightly (test code = 358) hemolyzed GLUCOSE RANDOM 102 mg/dL 70-105 (BEAKER) (test code = 652) CALCIUM (BEAKER) 8.7 mg/dL 8.4-10.2 (test code = 697) EGFR (BEAKER) (test 43 mL/min/1.73 ESTIMA MIS GFR IS code = 1092) sq m NOT ACCURATE CREATININE CLEARANCE IN PREDICTING GLOMERULAR FILTRATION RATE . ESTIMATED GFR I S NOT APPLICABLE FOR DIALYSIS PATIEN TS. CBC W/PLT COUNT & AUTO [id number] 06:07:00 Test Item Value Reference Range Interpretation Comments WHITE BLOOD CELL COUNT (BEAKER) 7.2 K/ L 3.5-10.5 (test code = 775) RED BLOOD CELL COUNT (BEAKER) 3.28 M/ L 4.63-6.08 L (test code = 761) HEMOGLOBIN (BEAKER) (test code = 9.6 GM/DL 13.7-17.5 L 410) HEMATOCRIT (BEAKER) (test code = 30.1 % 40.1-51.0 L 411) MEAN CORPUSCULAR VOLUME (BEAKER) 91.8 fL 79.0-92.2 (test code = 753) MEAN CORPUSCULAR HEMOGLOBIN 29.3 pg 25.7-32.2 (BEAKER) (test code = 751) MEAN CORPUSCULAR HEMOGLOBIN CONC 31.9 GM/DL 32.3-36.5 L (BEAKER) (test code = 752) RED CELL DISTRIBUTION WIDTH 14.4 % 11.6-14.4 (BEAKER) (test code = 412) PLATELET COUNT (BEAKER) (test 309 K/CU MM 150-450 code = 756) MEAN PLATELET VOLUME (BEAKER) 8.8 fL 9.4-12.4 L (test code = 754) NUCLEATED RED BLOOD CELLS 0 /100 WBC 0-0 (BEAKER) (test code = 413) NEUTROPHILS RELATIVE PERCENT 64 % (BEAKER) (test code = 429) LYMPHOCYTES RELATIVE PERCENT 22 % (BEAKER) (test code = 430) MONOCYTES RELATIVE PERCENT 9 % (BEAKER) (test code = 431) EOSINOPHILS RELATIVE PERCENT 4 % (BEAKER) (test code = 432) BASOPHILS RELATIVE PERCENT 1 % (BEAKER) (test code = 437) NEUTROPHILS ABSOLUTE COUNT 4.63 K/ L 1.78-5.38 (BEAKER) (test code = 670) LYMPHOCYTES ABSOLUTE COUNT 1.57 K/ L 1.32-3.57 (BEAKER) (test code = 414) MONOCYTES ABSOLUTE COUNT (BEAKER) 0.63 K/ L 0.30-0.82 (test code = 415) EOSINOPHILS ABSOLUTE COUNT 0.29 K/ L 0.04-0.54 (BEAKER) (test code = 416) BASOPHILS ABSOLUTE COUNT (BEAKER) 0.04 K/ L 0.01-0.08 (test code = 417) IMMATURE GRANULOCYTES-RELATIVE 1 % 0-1 PERCENT (BEAKER) (test code = 2801) [id number] 13:12:00 Test Item Value Reference Range Interpretation Comments MAGNESIUM (BEAKER) 2.0 mg/dL 1.6-2.6 Specimen slightly (test code = 627) hemolyzed BASIC METABOLIC [id number] 13:12:00 Test Item Value Reference Range Interpretation Comments SODIUM (BEAKER) 140 meq/L 136-145 (test code = 381) POTASSIUM (BEAKER) 4.3 meq/L 3.5-5.1 Specimen slightly (test code = 379) hemolyzed CHLORIDE (BEAKER) 107 meq/L 98-107 (test code = 382) CO2 (BEAKER) (test 26 meq/L 22-29 code = 355) BLOOD UREA NITROGEN 16 mg/dL 7-21 (BEAKER) (test code = 354) CREATININE (BEAKER) 1.70 mg/dL 0.57-1.25 H Specimen slightly (test code = 358) hemolyzed GLUCOSE RANDOM 95 mg/dL 70-105 (BEAKER) (test code = 652) CALCIUM (BEAKER) 9.0 mg/dL 8.4-10.2 (test code = 697) EGFR (BEAKER) (test 41 mL/min/1.73 ESTIMA MIS GFR IS code = 1092) sq m NOT ACCURATE CREATININE CLEARANCE IN PREDICTING GLOMERULAR FILTRATION RATE . ESTIMATED GFR I S NOT APPLICABLE FOR DIALYSIS PATIEN TS. CBC W/PLT COUNT & AUTO [id number] 12:57:00 Test Item Value Reference Range Interpretation Comments WHITE BLOOD CELL COUNT (BEAKER) 7.8 K/ L 3.5-10.5 (test code = 775) RED BLOOD CELL COUNT (BEAKER) 3.61 M/ L 4.63-6.08 L (test code = 761) HEMOGLOBIN (BEAKER) (test code = 10.7 GM/DL 13.7-17.5 L 410) HEMATOCRIT (BEAKER) (test code = 33.6 % 40.1-51.0 L 411) MEAN CORPUSCULAR VOLUME (BEAKER) 93.1 fL 79.0-92.2 H (test code = 753) MEAN CORPUSCULAR HEMOGLOBIN 29.6 pg 25.7-32.2 (BEAKER) (test code = 751) MEAN CORPUSCULAR HEMOGLOBIN CONC 31.8 GM/DL 32.3-36.5 L (BEAKER) (test code = 752) RED CELL DISTRIBUTION WIDTH 14.5 % 11.6-14.4 H (BEAKER) (test code = 412) PLATELET COUNT (BEAKER) (test 306 K/CU MM 150-450 code = 756) MEAN PLATELET VOLUME (BEAKER) 8.7 fL 9.4-12.4 L (test code = 754) NUCLEATED RED BLOOD CELLS 0 /100 WBC 0-0 (BEAKER) (test code = 413) NEUTROPHILS RELATIVE PERCENT 65 % (BEAKER) (test code = 429) LYMPHOCYTES RELATIVE PERCENT 20 % (BEAKER) (test code = 430) MONOCYTES RELATIVE PERCENT 11 % (BEAKER) (test code = 431) EOSINOPHILS RELATIVE PERCENT 4 % (BEAKER) (test code = 432) BASOPHILS RELATIVE PERCENT 0 % (BEAKER) (test code = 437) NEUTROPHILS ABSOLUTE COUNT 5.06 K/ L 1.78-5.38 (BEAKER) (test code = 670) LYMPHOCYTES ABSOLUTE COUNT 1.55 K/ L 1.32-3.57 (BEAKER) (test code = 414) MONOCYTES ABSOLUTE COUNT (BEAKER) 0.82 K/ L 0.30-0.82 (test code = 415) EOSINOPHILS ABSOLUTE COUNT 0.29 K/ L 0.04-0.54 (BEAKER) (test code = 416) BASOPHILS ABSOLUTE COUNT (BEAKER) 0.03 K/ L 0.01-0.08 (test code = 417) IMMATURE GRANULOCYTES-RELATIVE 0 % 0-1 PERCENT (BEAKER) (test code = 2801) [id number] 06:25:00 Test Item Value Reference Range Interpretation Comments MAGNESIUM (BEAKER) (test code = 2.0 mg/dL 1.6-2.6 627) BASIC METABOLIC [id number] 06:25:00 Test Item Value Reference Range Interpretation Comments SODIUM (BEAKER) 141 meq/L 136-145 (test code = 381) POTASSIUM (BEAKER) 4.3 meq/L 3.5-5.1 (test code = 379) CHLORIDE (BEAKER) 109 meq/L 98-107 H (test code = 382) CO2 (BEAKER) (test 24 meq/L 22-29 code = 355) BLOOD UREA NITROGEN 18 mg/dL 7-21 (BEAKER) (test code = 354) CREATININE (BEAKER) 1.81 mg/dL 0.57-1.25 H (test code = 358) GLUCOSE RANDOM 110 mg/dL 70-105 H (BEAKER) (test code = 652) CALCIUM (BEAKER) 8.7 mg/dL 8.4-10.2 (test code = 697) EGFR (BEAKER) (test 38 mL/min/1.73 ESTIMA MIS GFR IS code = 1092) sq m NOT ACCURATE CREATININE CLEARANCE IN PREDICTING GLOMERULAR FILTRATION RATE . ESTIMATED GFR I S NOT APPLICABLE FOR DIALYSIS PATIEN TS. CBC W/PLT COUNT & AUTO [id number] 05:20:00 Test Item Value Reference Range Interpretation Comments WHITE BLOOD CELL COUNT (BEAKER) 7.8 K/ L 3.5-10.5 (test code = 775) RED BLOOD CELL COUNT (BEAKER) 3.59 M/ L 4.63-6.08 L (test code = 761) HEMOGLOBIN (BEAKER) (test code = 10.7 GM/DL 13.7-17.5 L 410) HEMATOCRIT (BEAKER) (test code = 32.9 % 40.1-51.0 L 411) MEAN CORPUSCULAR VOLUME (BEAKER) 91.6 fL 79.0-92.2 (test code = 753) MEAN CORPUSCULAR HEMOGLOBIN 29.8 pg 25.7-32.2 (BEAKER) (test code = 751) MEAN CORPUSCULAR HEMOGLOBIN CONC 32.5 GM/DL 32.3-36.5 (BEAKER) (test code = 752) RED CELL DISTRIBUTION WIDTH 14.3 % 11.6-14.4 (BEAKER) (test code = 412) PLATELET COUNT (BEAKER) (test 278 K/CU MM 150-450 code = 756) MEAN PLATELET VOLUME (BEAKER) 9.0 fL 9.4-12.4 L (test code = 754) NUCLEATED RED BLOOD CELLS 0 /100 WBC 0-0 (BEAKER) (test code = 413) NEUTROPHILS RELATIVE PERCENT 69 % (BEAKER) (test code = 429) LYMPHOCYTES RELATIVE PERCENT 16 % (BEAKER) (test code = 430) MONOCYTES RELATIVE PERCENT 10 % (BEAKER) (test code = 431) EOSINOPHILS RELATIVE PERCENT 4 % (BEAKER) (test code = 432) BASOPHILS RELATIVE PERCENT 0 % (BEAKER) (test code = 437) NEUTROPHILS ABSOLUTE COUNT 5.37 K/ L 1.78-5.38 (BEAKER) (test code = 670) LYMPHOCYTES ABSOLUTE COUNT 1.25 K/ L 1.32-3.57 L (BEAKER) (test code = 414) MONOCYTES ABSOLUTE COUNT (BEAKER) 0.77 K/ L 0.30-0.82 (test code = 415) EOSINOPHILS ABSOLUTE COUNT 0.32 K/ L 0.04-0.54 (BEAKER) (test code = 416) BASOPHILS ABSOLUTE COUNT (BEAKER) 0.03 K/ L 0.01-0.08 (test code = 417) IMMATURE GRANULOCYTES-RELATIVE 1 % 0-1 PERCENT (BEAKER) (test code = 2801) HEMOGLOBIN AND [id number] 17:07:00 Test Item Value Reference Range Interpretation Comments HEMOGLOBIN (BEAKER) (test code = 11.2 GM/DL 13.7-17.5 L 410) HEMATOCRIT (BEAKER) (test code = 33.7 % 40.1-51.0 L 411) [id number] 12:56:00 Test Item Value Reference Range Interpretation Comments MAGNESIUM (BEAKER) (test code = 1.9 mg/dL 1.6-2.6 627) BASIC METABOLIC [id number] 12:56:00 Test Item Value Reference Range Interpretation Comments SODIUM (BEAKER) 139 meq/L 136-145 (test code = 381) POTASSIUM (BEAKER) 4.1 meq/L 3.5-5.1 (test code = 379) CHLORIDE (BEAKER) 105 meq/L 98-107 (test code = 382) CO2 (BEAKER) (test 23 meq/L 22-29 code = 355) BLOOD UREA NITROGEN 17 mg/dL 7-21 (BEAKER) (test code = 354) CREATININE (BEAKER) 1.80 mg/dL 0.57-1.25 H (test code = 358) GLUCOSE RANDOM 87 mg/dL 70-105 (BEAKER) (test code = 652) CALCIUM (BEAKER) 9.0 mg/dL 8.4-10.2 (test code = 697) EGFR (BEAKER) (test 38 mL/min/1.73 ESTIMA MIS GFR IS code = 1092) sq m NOT ACCURATE CREATININE CLEARANCE IN PREDICTING GLOMERULAR FILTRATION RATE . ESTIMATED GFR I S NOT APPLICABLE FOR DIALYSIS PATIEN TS. CBC W/PLT COUNT & AUTO [id number] 12:40:00 Test Item Value Reference Range Interpretation Comments WHITE BLOOD CELL COUNT (BEAKER) 8.4 K/ L 3.5-10.5 (test code = 775) RED BLOOD CELL COUNT (BEAKER) 3.83 M/ L 4.63-6.08 L (test code = 761) HEMOGLOBIN (BEAKER) (test code = 11.3 GM/DL 13.7-17.5 L 410) HEMATOCRIT (BEAKER) (test code = 35.6 % 40.1-51.0 L 411) MEAN CORPUSCULAR VOLUME (BEAKER) 93.0 fL 79.0-92.2 H (test code = 753) MEAN CORPUSCULAR HEMOGLOBIN 29.5 pg 25.7-32.2 (BEAKER) (test code = 751) MEAN CORPUSCULAR HEMOGLOBIN CONC 31.7 GM/DL 32.3-36.5 L (BEAKER) (test code = 752) RED CELL DISTRIBUTION WIDTH 14.6 % 11.6-14.4 H (BEAKER) (test code = 412) PLATELET COUNT (BEAKER) (test 302 K/CU MM 150-450 code = 756) MEAN PLATELET VOLUME (BEAKER) 8.7 fL 9.4-12.4 L (test code = 754) NUCLEATED RED BLOOD CELLS 0 /100 WBC 0-0 (BEAKER) (test code = 413) NEUTROPHILS RELATIVE PERCENT 71 % (BEAKER) (test code = 429) LYMPHOCYTES RELATIVE PERCENT 17 % (BEAKER) (test code = 430) MONOCYTES RELATIVE PERCENT 8 % (BEAKER) (test code = 431) EOSINOPHILS RELATIVE PERCENT 3 % (BEAKER) (test code = 432) BASOPHILS RELATIVE PERCENT 0 % (BEAKER) (test code = 437) NEUTROPHILS ABSOLUTE COUNT 6.02 K/ L 1.78-5.38 H (BEAKER) (test code = 670) LYMPHOCYTES ABSOLUTE COUNT 1.40 K/ L 1.32-3.57 (BEAKER) (test code = 414) MONOCYTES ABSOLUTE COUNT (BEAKER) 0.68 K/ L 0.30-0.82 (test code = 415) EOSINOPHILS ABSOLUTE COUNT 0.27 K/ L 0.04-0.54 (BEAKER) (test code = 416) BASOPHILS ABSOLUTE COUNT (BEAKER) 0.03 K/ L 0.01-0.08 (test code = 417) IMMATURE GRANULOCYTES-RELATIVE 0 % 0-1 PERCENT (BEAKER) (test code = 2801) BASIC METABOLIC [id number] 05:19:00 Test Item Value Reference Range Interpretation Comments SODIUM (BEAKER) 135 meq/L 136-145 L (test code = 381) POTASSIUM (BEAKER) 4.0 meq/L 3.5-5.1 (test code = 379) CHLORIDE (BEAKER) 107 meq/L 98-107 (test code = 382) CO2 (BEAKER) (test 22 meq/L 22-29 code = 355) BLOOD UREA NITROGEN 17 mg/dL 7-21 (BEAKER) (test code = 354) CREATININE (BEAKER) 1.98 mg/dL 0.57-1.25 H (test code = 358) GLUCOSE RANDOM 125 mg/dL 70-105 H (BEAKER) (test code = 652) CALCIUM (BEAKER) 8.2 mg/dL 8.4-10.2 L (test code = 697) EGFR (BEAKER) (test 34 mL/min/1.73 ESTIMA MIS GFR IS code = 1092) sq m NOT ACCURATE CREATININE CLEARANCE IN PREDICTING GLOMERULAR FILTRATION RATE . ESTIMATED GFR I S NOT APPLICABLE FOR DIALYSIS PATIEN TS. BASIC METABOLIC [id number] 07:26:00 Test Item Value Reference Range Interpretation Comments SODIUM (BEAKER) 133 meq/L 136-145 L (test code = 381) POTASSIUM (BEAKER) 4.0 meq/L 3.5-5.1 (test code = 379) CHLORIDE (BEAKER) 102 meq/L 98-107 (test code = 382) CO2 (BEAKER) (test 24 meq/L 22-29 code = 355) BLOOD UREA NITROGEN 13 mg/dL 7-21 (BEAKER) (test code = 354) CREATININE (BEAKER) 2.04 mg/dL 0.57-1.25 H (test code = 358) GLUCOSE RANDOM 120 mg/dL 70-105 H (BEAKER) (test code = 652) CALCIUM (BEAKER) 8.3 mg/dL 8.4-10.2 L (test code = 697) EGFR (BEAKER) (test 33 mL/min/1.73 ESTIMA MIS GFR IS code = 1092) sq m NOT ACCURATE CREATININE CLEARANCE IN PREDICTING GLOMERULAR FILTRATION RATE . ESTIMATED GFR I S NOT APPLICABLE FOR DIALYSIS PATIEN TS. CBC W/PLT COUNT & AUTO [id number] 06:36:00 Test Item Value Reference Range Interpretation Comments WHITE BLOOD CELL COUNT (BEAKER) 9.7 K/ L 3.5-10.5 (test code = 775) RED BLOOD CELL COUNT (BEAKER) 3.65 M/ L 4.63-6.08 L (test code = 761) HEMOGLOBIN (BEAKER) (test code = 11.2 GM/DL 13.7-17.5 L 410) HEMATOCRIT (BEAKER) (test code = 33.7 % 40.1-51.0 L 411) MEAN CORPUSCULAR VOLUME (BEAKER) 92.3 fL 79.0-92.2 H (test code = 753) MEAN CORPUSCULAR HEMOGLOBIN 30.7 pg 25.7-32.2 (BEAKER) (test code = 751) MEAN CORPUSCULAR HEMOGLOBIN CONC 33.2 GM/DL 32.3-36.5 (BEAKER) (test code = 752) RED CELL DISTRIBUTION WIDTH 14.4 % 11.6-14.4 (BEAKER) (test code = 412) PLATELET COUNT (BEAKER) (test 214 K/CU MM 150-450 code = 756) MEAN PLATELET VOLUME (BEAKER) 8.8 fL 9.4-12.4 L (test code = 754) NUCLEATED RED BLOOD CELLS 0 /100 WBC 0-0 (BEAKER) (test code = 413) NEUTROPHILS RELATIVE PERCENT 78 % (BEAKER) (test code = 429) LYMPHOCYTES RELATIVE PERCENT 11 % (BEAKER) (test code = 430) MONOCYTES RELATIVE PERCENT 9 % (BEAKER) (test code = 431) EOSINOPHILS RELATIVE PERCENT 1 % (BEAKER) (test code = 432) BASOPHILS RELATIVE PERCENT 1 % (BEAKER) (test code = 437) NEUTROPHILS ABSOLUTE COUNT 7.51 K/ L 1.78-5.38 H (BEAKER) (test code = 670) LYMPHOCYTES ABSOLUTE COUNT 1.09 K/ L 1.32-3.57 L (BEAKER) (test code = 414) MONOCYTES ABSOLUTE COUNT (BEAKER) 0.83 K/ L 0.30-0.82 H (test code = 415) EOSINOPHILS ABSOLUTE COUNT 0.14 K/ L 0.04-0.54 (BEAKER) (test code = 416) BASOPHILS ABSOLUTE COUNT (BEAKER) 0.05 K/ L 0.01-0.08 (test code = 417) IMMATURE GRANULOCYTES-RELATIVE 1 % 0-1 PERCENT (BEAKER) (test code = 2801) LIPID [id number] 07:15:00 Test Item Value Reference Range Interpretation Comments TRIGLYCERIDES (BEAKER) (test code = 65 mg/dL 540) CHOLESTEROL (BEAKER) (test code = 129 mg/dL 631) HDL CHOLESTEROL (BEAKER) (test code 30 mg/dL = 976) LDL CHOLESTEROL CALCULATED (BEAKER) 86 mg/dL (test code = 633) Triglyceride Reference Range: Low Risk <150 Borderline 150-199 High Risk 200-499 Very High Risk >=500Cholesterol Reference Range: Low Risk <200 Borderline 200-239 High Risk >240HDL Cholesterol Reference Range: Low Risk >=60 High Risk <40LDL Cholesterol Reference Range: Optimal <100 Near Optimal 100-129 Borderline 130-159 High 160-189 Very High >=190BASIC METABOLIC [id number] 07:15:00 Test Item Value Reference Range Interpretation Comments SODIUM (BEAKER) 138 meq/L 136-145 (test code = 381) POTASSIUM (BEAKER) 4.3 meq/L 3.5-5.1 (test code = 379) CHLORIDE (BEAKER) 108 meq/L 98-107 H (test code = 382) CO2 (BEAKER) (test 24 meq/L 22-29 code = 355) BLOOD UREA NITROGEN 13 mg/dL 7-21 (BEAKER) (test code = 354) CREATININE (BEAKER) 1.86 mg/dL 0.57-1.25 H (test code = 358) GLUCOSE RANDOM 90 mg/dL 70-105 (BEAKER) (test code = 652) CALCIUM (BEAKER) 8.8 mg/dL 8.4-10.2 (test code = 697) EGFR (BEAKER) (test 37 mL/min/1.73 ESTIMA MIS GFR IS code = 1092) sq m NOT ACCURATE CREATININE CLEARANCE IN PREDICTING GLOMERULAR FILTRATION RATE . ESTIMATED GFR I S NOT APPLICABLE FOR DIALYSIS PATIEN TS. CBC W/PLT COUNT & AUTO [id number] 06:52:00 Test Item Value Reference Range Interpretation Comments WHITE BLOOD CELL COUNT (BEAKER) 8.3 K/ L 3.5-10.5 (test code = 775) RED BLOOD CELL COUNT (BEAKER) 3.89 M/ L 4.63-6.08 L (test code = 761) HEMOGLOBIN (BEAKER) (test code = 11.8 GM/DL 13.7-17.5 L 410) HEMATOCRIT (BEAKER) (test code = 36.2 % 40.1-51.0 L 411) MEAN CORPUSCULAR VOLUME (BEAKER) 93.1 fL 79.0-92.2 H (test code = 753) MEAN CORPUSCULAR HEMOGLOBIN 30.3 pg 25.7-32.2 (BEAKER) (test code = 751) MEAN CORPUSCULAR HEMOGLOBIN CONC 32.6 GM/DL 32.3-36.5 (BEAKER) (test code = 752) RED CELL DISTRIBUTION WIDTH 14.6 % 11.6-14.4 H (BEAKER) (test code = 412) PLATELET COUNT (BEAKER) (test 272 K/CU MM 150-450 code = 756) MEAN PLATELET VOLUME (BEAKER) 9.0 fL 9.4-12.4 L (test code = 754) NUCLEATED RED BLOOD CELLS 0 /100 WBC 0-0 (BEAKER) (test code = 413) NEUTROPHILS RELATIVE PERCENT 57 % (BEAKER) (test code = 429) LYMPHOCYTES RELATIVE PERCENT 28 % (BEAKER) (test code = 430) MONOCYTES RELATIVE PERCENT 10 % (BEAKER) (test code = 431) EOSINOPHILS RELATIVE PERCENT 5 % (BEAKER) (test code = 432) BASOPHILS RELATIVE PERCENT 1 % (BEAKER) (test code = 437) NEUTROPHILS ABSOLUTE COUNT 4.70 K/ L 1.78-5.38 (BEAKER) (test code = 670) LYMPHOCYTES ABSOLUTE COUNT 2.31 K/ L 1.32-3.57 (BEAKER) (test code = 414) MONOCYTES ABSOLUTE COUNT (BEAKER) 0.83 K/ L 0.30-0.82 H (test code = 415) EOSINOPHILS ABSOLUTE COUNT 0.37 K/ L 0.04-0.54 (BEAKER) (test code = 416) BASOPHILS ABSOLUTE COUNT (BEAKER) 0.07 K/ L 0.01-0.08 (test code = 417) IMMATURE GRANULOCYTES-RELATIVE 0 % 0-1 PERCENT (BEAKER) (test code = 2801) RAD, CHEST, 1 VIEW, NON [id number] 23:59:00Reason for exam:->pre opShould this be performed [...] MDReport Verified Date/Time: 05/17/2018 23:59:18 Reading Location: [address] Consult Reading Room /[id number] 18:50:00 Test Item Value Reference Range Interpretation Comments PROTIME (BEAKER) (test code = 13.0 seconds 11.7-14.7 759) INR (BEAKER) (test code = 370) 1.0 <=5.9 PARTIAL THROMBOPLASTIN TIME 30.3 seconds 22.5-36.0 (BEAKER) (test code = 760) RECOMMENDED COUMADIN/WARFARIN INR THERAPY RANGESSTANDARD DOSE: 2.0 - 3.0 Includes: PROPHYLAXIS forvenous thrombosis, systemic embolization; TREATMENT for venous thrombosis and/or pulmonary embolus.HIGH RISK: Target INR is 2.5-3.5 for patients with mechanical heart valves.PROTHROMBIN TIME/[id number] 18:49:00 Test Item Value Reference Range Interpretation Comments PROTIME (BEAKER) (test code = 13.0 seconds 11.7-14.7 759) INR (BEAKER) (test code = 370) 1.0 <=5.9 RECOMMENDED COUMADIN/WARFARIN INR THERAPY RANGESSTANDARD DOSE: 2.0 - 3.0 Includes: PROPHYLAXIS forvenous thrombosis, systemic embolization; TREATMENT for venous thrombosis and/or pulmonary embolus.HIGH RISK: Target INR is 2.5-3.5 for patients with mechanical heart valves.[id number] 18:40:00 Test Item Value Reference Range Interpretation Comments PHOSPHORUS (BEAKER) (test code = 3.0 mg/dL 2.3-4.7 604) [id number] 18:40:00 Test Item Value Reference Range Interpretation Comments MAGNESIUM (BEAKER) (test code = 2.1 mg/dL 1.6-2.6 627) BASIC METABOLIC [id number] 18:40:00 Test Item Value Reference Range Interpretation Comments SODIUM (BEAKER) 137 meq/L 136-145 (test code = 381) POTASSIUM (BEAKER) 4.5 meq/L 3.5-5.1 (test code = 379) CHLORIDE (BEAKER) 105 meq/L 98-107 (test code = 382) CO2 (BEAKER) (test 23 meq/L 22-29 code = 355) BLOOD UREA NITROGEN 13 mg/dL 7-21 (BEAKER) (test code = 354) CREATININE (BEAKER) 1.81 mg/dL 0.57-1.25 H (test code = 358) GLUCOSE RANDOM 87 mg/dL 70-105 (BEAKER) (test code = 652) CALCIUM (BEAKER) 9.3 mg/dL 8.4-10.2 (test code = 697) EGFR (BEAKER) (test 38 mL/min/1.73 ESTIMA MIS GFR IS code = 1092) sq m NOT ACCURATE CREATININE CLEARANCE IN PREDICTING GLOMERULAR FILTRATION RATE . ESTIMATED GFR I S NOT APPLICABLE FOR DIALYSIS PATIEN TS. HEPATIC FUNCTION [id number] 18:40:00 Test Item Value Reference Range Interpretation Comments TOTAL PROTEIN (BEAKER) (test code = 7.1 gm/dL 6.0-8.3 770) ALBUMIN (BEAKER) (test code = 1145) 3.9 g/dL 3.5-5.0 BILIRUBIN TOTAL (BEAKER) (test code 0.3 mg/dL 0.2-1.2 = 377) BILIRUBIN DIRECT (BEAKER) (test 0.1 mg/dL 0.1-0.5 code = 706) ALKALINE PHOSPHATASE (BEAKER) (test 93 U/L 40-150 code = 346) AST (SGOT) (BEAKER) (test code = 16 U/L 5-34 353) ALT (SGPT) (BEAKER) (test code = 11 U/L 6-55 347) CBC W/PLT COUNT & AUTO [id number] 18:25:00 Test Item Value Reference Range Interpretation Comments WHITE BLOOD CELL COUNT (BEAKER) 10.6 K/ L 3.5-10.5 H (test code = 775) RED BLOOD CELL COUNT (BEAKER) 4.59 M/ L 4.63-6.08 L (test code = 761) HEMOGLOBIN (BEAKER) (test code = 13.8 GM/DL 13.7-17.5 410) HEMATOCRIT (BEAKER) (test code = 42.3 % 40.1-51.0 411) MEAN CORPUSCULAR VOLUME (BEAKER) 92.2 fL 79.0-92.2 (test code = 753) MEAN CORPUSCULAR HEMOGLOBIN 30.1 pg 25.7-32.2 (BEAKER) (test code = 751) MEAN CORPUSCULAR HEMOGLOBIN CONC 32.6 GM/DL 32.3-36.5 (BEAKER) (test code = 752) RED CELL DISTRIBUTION WIDTH 14.7 % 11.6-14.4 H (BEAKER) (test code = 412) PLATELET COUNT (BEAKER) (test 313 K/CU MM 150-450 code = 756) MEAN PLATELET VOLUME (BEAKER) 8.8 fL 9.4-12.4 L (test code = 754) NUCLEATED RED BLOOD CELLS 0 /100 WBC 0-0 (BEAKER) (test code = 413) NEUTROPHILS RELATIVE PERCENT 74 % (BEAKER) (test code = 429) LYMPHOCYTES RELATIVE PERCENT 16 % (BEAKER) (test code = 430) MONOCYTES RELATIVE PERCENT 7 % (BEAKER) (test code = 431) EOSINOPHILS RELATIVE PERCENT 2 % (BEAKER) (test code = 432) BASOPHILS RELATIVE PERCENT 1 % (BEAKER) (test code = 437) NEUTROPHILS ABSOLUTE COUNT 7.87 K/ L 1.78-5.38 H (BEAKER) (test code = 670) LYMPHOCYTES ABSOLUTE COUNT 1.70 K/ L 1.32-3.57 (BEAKER) (test code = 414) MONOCYTES ABSOLUTE COUNT (BEAKER) 0.79 K/ L 0.30-0.82 (test code = 415) EOSINOPHILS ABSOLUTE COUNT 0.20 K/ L 0.04-0.54 (BEAKER) (test code = 416) BASOPHILS ABSOLUTE COUNT (BEAKER) 0.05 K/ L 0.01-0.08 (test code = 417) IMMATURE GRANULOCYTES-RELATIVE 0 % 0-1 PERCENT (BEAKER) (test code = 2801) TISSUE [id number] 14:40:00Surgical Pathology Report Case: [id number] Authorizing Provider: Fadi Philippe MD Collected: 02/06/2018 1859 Ordering Location: [address] Received: 02/07/2018 7906 Service Pathologist: Yuridia Mercer MD Specimens: A) - Polyp, Colon - Right/Ascending, taken via hot snare B) -Mass, Bx of Rectal mass via forcep The addendum is issued to report the results of molecular tests performed at [facility]. RESULTS: - There is a mutationin the [...] complexity clinical laboratory testing. Added CPT codes: 92348, 89875 x3 This email and attachments contain information [...] TYPE, ULCERATEDCC/pl Signing Pathologist Direct Phone Line: [phone] by Yuridia Mercer MD on 02/08/2018 at 10:08 [id number]. Right ascending col on polyp; B. Rectal mass biopsyThe specimen is [...] the remaining tissue in A1. Part B labeled"rectal mass biopsy" consists of multiple fragments of rose- white soft tissue ranging from 0.1 to 0.2cm, [...] noted. Some reactive changes are also present.CT, LIMITED/LOCALIZED [id number] 08:10:00Request liver biopsy Reason for exam:->liver mass, need biopsy Should this be performed at the bed side?->NoAddendum BeginsREPORT STATUS:A This exam was performed according to our departmental dose optimization program which includes automated exposure control, adjustment of the mA and/or kV according to patient size and/or use of iterative reconstructive technique. Signed: Tung Wise Verified Date/Time: 02/27/2018 08:10:53 Reading Location: [facility] Diagnostic Imaging Reading Room - [place] [id number] EndsFINAL REPORT History: Liver masses COMPARISON: CT dated 02/09/2018 and an ultrasound dated 02/13/2018 DISCUSSION: The hepatic lesions were unable to be previously seen under ultrasound and therefore, the patient was sent to CT for potential biopsy under CT guidance. A tie layer image was obtained prior to the biopsy procedure. The previously seen nodular foci within the liver are not well delineated on the tie layer images. Some poorly seen hypodense foci are seen towards the hepatic dome. Attempted visualization was made during real-time CT fluorosco py. However, due to the patient's breathing as well as the small size and location of the lesions within liver, no focal lesion could be localized reliably for a safe CT guided biopsy. Signed: Tung Wise Verified Date/Time: 02/14/2018 16:38:16 Reading Location: [facility] [id number] CT Body Reading Room NEEDLE ASPIRATION BY [id number] 14:34:00Medical Cytology Report Case: [id number] Aut horizing Provider: Fadi Philippe MD Collected: 02/15/2018 1103 Ordering Location: [address] Received: 02/16/2018 0959 Service Pathologist: Yas Townsend Specimen: Liver, Liver mass FNA in CRR for cytology LIVER MASS FNA BY CLINICIAN (CYTOSPINS AND CELL BLOCK OF ASPIRATE): - POSITIVE FOR MALIGNANCY, MORPHOLOGICALLY COMPATIBLE WITH RECTAL CARCINOMA PRIMARY Signing Pathologist Direct Phone Line: [phone] signed by Yas Townsend on 02/17/2018 at 2:34 PMCytospins show clusters of benign appear ing hepatocytes. The cell block show predominantly hepatic parenchyma with a focal attached area ofatypical glands with hyperchromatic and pleomorphic nuclei. The previous case, [id number] is reviewed and shows similar features.Intradepartmental Consultation: Noy Bailey MD has reviewed the case andagrees with the findings.26371, 97304(1.3 x 0.9 cm) round mass in the left lobe of the liver, recently diagnosed with rectal cancer(see [id number])LIVER MASS FNA27 mls in cytorich red; 4 cytospins, cellblockCollected: [id number]: [id number] [facility], Department of Pathology, [address] [place] [address], [facility], [address] [place] [address], [facility], TUNNEL CATH CENTRAL INS W/PORT [id number] 18:32:00Reason for exam:->chemotherapyFINAL REPORT Right internal jugular chest port insertion History: Patient requires access for chemotherapy. Modality: Sonography and fluoroscopy. Sedation: Versed 1.5 mg and fentanyl 75 mcg given intravenously forconscious sedation. Vital signs were monitored throughout the procedure by a nurse, and remained stable. Physician intra-service time was 25 minutes. Psychology Technician: Peña Zepeda MDAssistant: Jose Martin. Approach: Right [...] needle into the right atrium. A 4 Frisian micropuncture sheath was placed. A subcutaneous tunnel and pocket were created in the right anterior chest wall by blunt dis section. The pocket was flushed with antibiotic solution. [...] MDReport Verified Date/Time: 02/16/2018 18:32:11 Reading Location: [place] [address] Angio Body Reading Room UE [id number] 15:01:00Surgical Pathology Report Case: [id number] Authorizing Provider: Fadi Philippe MD Collected: 02/15/2018 1055 Ordering Location: [address] Received: 02/15/2018 1604 Service Pathologist: Timothy Mendoza MD Specimen: Liver, Liver Mass LIVER MASS, ULTRASOUND-GUIDED CORE NEEDLE BIOPSY: - FRAGMENTED CORES OF BENIGN LIVER PARENCHYMA - MINIMAL STEATOSIS (LESS THAN 1%) - MINIMAL PERIPORTAL FIBROSIS - NEGATIVE FOR MALIGNANCY (SEE COMMENT) Signing Pathologist Direct Phone Line: [phone] signed by Timothy Mendoza MD on 02/16/2018 at 3:01 PMClinical and radiographic correlation is recommended to determine if this represents the lesion.94354, 17320 x 2Rectal cancerLiver massThe specimen is received [...] report above: trichrome, reticulin.FINE NEEDLE ASPIRATE (FNA) [id number] 11:00:00 Test Item Value Reference Range Interpretation Comments CYTOLOGY RESULT POINTER See Separate Report (BEAKER) (test code = 2629) BASIC METABOLIC [id number] 06:09:00 Test Item Value Reference Range Interpretation Comments SODIUM (BEAKER) 141 meq/L 136-145 (test code = 381) POTASSIUM (BEAKER) 4.0 meq/L 3.5-5.1 (test code = 379) CHLORIDE (BEAKER) 112 meq/L 98-107 H (test code = 382) CO2 (BEAKER) (test 23 meq/L 22-29 code = 355) BLOOD UREA NITROGEN 14 mg/dL 7-21 (BEAKER) (test code = 354) CREATININE (BEAKER) 1.57 mg/dL 0.57-1.25 H (test code = 358) GLUCOSE RANDOM 109 mg/dL 70-105 H (BEAKER) (test code = 652) CALCIUM (BEAKER) 8.3 mg/dL 8.4-10.2 L (test code = 697) EGFR (BEAKER) (test 45 mL/min/1.73 ESTIMA MIS GFR IS code = 1092) sq m NOT ACCURATE CREATININE CLEARANCE IN PREDICTING GLOMERULAR FILTRATION RATE . ESTIMATED GFR I S NOT APPLICABLE FOR DIALYSIS PATIEN TS. CBC (HEMOGRAM ONLY)2018-02-16 05:41:00 Test Item Value Reference Range Interpretation Comments WHITE BLOOD CELL COUNT (BEAKER) 6.6 K/ L 3.5-10.5 (test code = 775) RED BLOOD CELL COUNT (BEAKER) 2.98 M/ L 4.63-6.08 L (test code = 761) HEMOGLOBIN (BEAKER) (test code = 8.9 GM/DL 13.7-17.5 L 410) HEMATOCRIT (BEAKER) (test code = 28.6 % 40.1-51.0 L 411) MEAN CORPUSCULAR VOLUME (BEAKER) 96.0 fL 79.0-92.2 H (test code = 753) MEAN CORPUSCULAR HEMOGLOBIN 29.9 pg 25.7-32.2 (BEAKER) (test code = 751) MEAN CORPUSCULAR HEMOGLOBIN CONC 31.1 GM/DL 32.3-36.5 L (BEAKER) (test code = 752) RED CELL DISTRIBUTION WIDTH 14.7 % 11.6-14.4 H (BEAKER) (test code = 412) PLATELET COUNT (BEAKER) (test 206 K/CU MM 150-450 code = 756) MEAN PLATELET VOLUME (BEAKER) 8.9 fL 9.4-12.4 L (test code = 754) NUCLEATED RED BLOOD CELLS 0 /100 WBC 0-0 (BEAKER) (test code = 413) BASIC METABOLIC [id number] 05:52:00 Test Item Value Reference Range Interpretation Comments SODIUM (BEAKER) 141 meq/L 136-145 (test code = 381) POTASSIUM (BEAKER) 4.1 meq/L 3.5-5.1 (test code = 379) CHLORIDE (BEAKER) 110 meq/L 98-107 H (test code = 382) CO2 (BEAKER) (test 25 meq/L 22-29 code = 355) BLOOD UREA NITROGEN 14 mg/dL 7-21 (BEAKER) (test code = 354) CREATININE (BEAKER) 1.82 mg/dL 0.57-1.25 H (test code = 358) GLUCOSE RANDOM 118 mg/dL 70-105 H (BEAKER) (test code = 652) CALCIUM (BEAKER) 8.5 mg/dL 8.4-10.2 (test code = 697) EGFR (BEAKER) (test 38 mL/min/1.73 ESTIMA MIS GFR IS code = 1092) sq m NOT ACCURATE CREATININE CLEARANCE IN PREDICTING GLOMERULAR FILTRATION RATE . ESTIMATED GFR I S NOT APPLICABLE FOR DIALYSIS PATIEN TS. CBC (HEMOGRAM ONLY)2018-02-15 05:12:00 Test Item Value Reference Range Interpretation Comments WHITE BLOOD CELL COUNT (BEAKER) 7.2 K/ L 3.5-10.5 (test code = 775) RED BLOOD CELL COUNT (BEAKER) 2.94 M/ L 4.63-6.08 L (test code = 761) HEMOGLOBIN (BEAKER) (test code = 8.7 GM/DL 13.7-17.5 L 410) HEMATOCRIT (BEAKER) (test code = 28.2 % 40.1-51.0 L 411) MEAN CORPUSCULAR VOLUME (BEAKER) 95.9 fL 79.0-92.2 H (test code = 753) MEAN CORPUSCULAR HEMOGLOBIN 29.6 pg 25.7-32.2 (BEAKER) (test code = 751) MEAN CORPUSCULAR HEMOGLOBIN CONC 30.9 GM/DL 32.3-36.5 L (BEAKER) (test code = 752) RED CELL DISTRIBUTION WIDTH 14.8 % 11.6-14.4 H (BEAKER) (test code = 412) PLATELET COUNT (BEAKER) (test 227 K/CU MM 150-450 code = 756) MEAN PLATELET VOLUME (BEAKER) 9.2 fL 9.4-12.4 L (test code = 754) NUCLEATED RED BLOOD CELLS 0 /100 WBC 0-0 (BEAKER) (test code = 413) U/S, ABDOMINAL, [id number] 07:47:00Reason for exam:->liver massFINAL REPORT Ultrasound of [...] JOANNE DIAZ M.D. on02/14/2018 07:47 AMBASIC METABOLIC [id number] 06:19:00 Test Item Value Reference Range Interpretation Comments SODIUM (BEAKER) 140 meq/L 136-145 (test code = 381) POTASSIUM (BEAKER) 3.9 meq/L 3.5-5.1 (test code = 379) CHLORIDE (BEAKER) 110 meq/L 98-107 H (test code = 382) CO2 (BEAKER) (test 24 meq/L 22-29 code = 355) BLOOD UREA NITROGEN 15 mg/dL 7-21 (BEAKER) (test code = 354) CREATININE (BEAKER) 1.61 mg/dL 0.57-1.25 H (test code = 358) GLUCOSE RANDOM 105 mg/dL 70-105 (BEAKER) (test code = 652) CALCIUM (BEAKER) 8.2 mg/dL 8.4-10.2 L (test code = 697) EGFR (BEAKER) (test 44 mL/min/1.73 ESTIMA MIS GFR IS code = 1092) sq m NOT ACCURATE CREATININE CLEARANCE IN PREDICTING GLOMERULAR FILTRATION RATE . ESTIMATED GFR I S NOT APPLICABLE FOR DIALYSIS PATIEN TS. CBC (HEMOGRAM ONLY)2018-02-14 05:42:00 Test Item Value Reference Range Interpretation Comments WHITE BLOOD CELL COUNT (BEAKER) 7.6 K/ L 3.5-10.5 (test code = 775) RED BLOOD CELL COUNT (BEAKER) 2.83 M/ L 4.63-6.08 L (test code = 761) HEMOGLOBIN (BEAKER) (test code = 8.3 GM/DL 13.7-17.5 L 410) HEMATOCRIT (BEAKER) (test code = 26.9 % 40.1-51.0 L 411) MEAN CORPUSCULAR VOLUME (BEAKER) 95.1 fL 79.0-92.2 H (test code = 753) MEAN CORPUSCULAR HEMOGLOBIN 29.3 pg 25.7-32.2 (BEAKER) (test code = 751) MEAN CORPUSCULAR HEMOGLOBIN CONC 30.9 GM/DL 32.3-36.5 L (BEAKER) (test code = 752) RED CELL DISTRIBUTION WIDTH 14.6 % 11.6-14.4 H (BEAKER) (test code = 412) PLATELET COUNT (BEAKER) (test 252 K/CU MM 150-450 code = 756) MEAN PLATELET VOLUME (BEAKER) 9.2 fL 9.4-12.4 L (test code = 754) NUCLEATED RED BLOOD CELLS 0 /100 WBC 0-0 (BEAKER) (test code = 413) PROTEIN ELECTROPHORESIS, [id number] 14:00:00 Test Item Value Reference Range Interpretation Comments ALBUMIN FRACTION 2.6 g/dL 3.5-5.5 L (BEAKER) (test code = 405) ALPHA 1 FRACTION 0.2 g/dL 0.2-0.4 (BEAKER) (test code = 389) ALPHA 2 FRACTION 0.6 g/dL 0.5-0.9 (BEAKER) (test code = 390) BETA FRACTION 0.9 g/dL 0.6-1.1 (BEAKER) (test code = 392) GAMMA GLOBULIN 0.7 g/dL 0.7-1.7 FRACTION (BEAKER) (test code = 391) INTERPRETATION-119 Decreased albumin, (BEAKER) (test code = suggestive of protein 2615) loss. Pattern otherwise consistent with mild acute inflammatory response. No monoclonal bands detected. [id number] Lilly Harris MD (BEAKER) (test code = (electronic signature) 2616) PROTEIN TOTAL SERUM, 5.0 gm/dL 6.0-8.3 L SPEP (BEAKER) (test code = 4040) BASIC METABOLIC [id number] 05:12:00 Test Item Value Reference Range Interpretation Comments SODIUM (BEAKER) 140 meq/L 136-145 (test code = 381) POTASSIUM (BEAKER) 3.8 meq/L 3.5-5.1 (test code = 379) CHLORIDE (BEAKER) 111 meq/L 98-107 H (test code = 382) CO2 (BEAKER) (test 24 meq/L 22-29 code = 355) BLOOD UREA NITROGEN 14 mg/dL 7-21 (BEAKER) (test code = 354) CREATININE (BEAKER) 1.56 mg/dL 0.57-1.25 H (test code = 358) GLUCOSE RANDOM 104 mg/dL 70-105 (BEAKER) (test code = 652) CALCIUM (BEAKER) 8.2 mg/dL 8.4-10.2 L (test code = 697) EGFR (BEAKER) (test 45 mL/min/1.73 ESTIMA MIS GFR IS code = 1092) sq m NOT ACCURATE CREATININE CLEARANCE IN PREDICTING GLOMERULAR FILTRATION RATE . ESTIMATED GFR I S NOT APPLICABLE FOR DIALYSIS PATIEN TS. [id number] 04:59:00 Test Item Value Reference Range Interpretation Comments PROTIME (BEAKER) (test code = 14.5 seconds 11.7-14.7 759) INR (BEAKER) (test code = 370) 1.1 <=5.9 PARTIAL THROMBOPLASTIN TIME 37.1 seconds 22.5-36.0 H (BEAKER) (test code = 760) RECOMMENDED COUMADIN/WARFARIN INR THERAPY RANGESSTANDARD DOSE: 2.0 - 3.0 Includes: PROPHYLAXIS forvenous thrombosis, systemic embolization; TREATMENT for venous thrombosis and/or pulmonary embolus.HIGH RISK: Target INR is 2.5-3.5 for patients with mechanical heart valves.CBC (HEMOGRAM ONLY)2018-02-13 04:49:00 Test Item Value Reference Range Interpretation Comments WHITE BLOOD CELL COUNT (BEAKER) 8.9 K/ L 3.5-10.5 (test code = 775) RED BLOOD CELL COUNT (BEAKER) 2.95 M/ L 4.63-6.08 L (test code = 761) HEMOGLOBIN (BEAKER) (test code = 8.7 GM/DL 13.7-17.5 L 410) HEMATOCRIT (BEAKER) (test code = 27.9 % 40.1-51.0 L 411) MEAN CORPUSCULAR VOLUME (BEAKER) 94.6 fL 79.0-92.2 H (test code = 753) MEAN CORPUSCULAR HEMOGLOBIN 29.5 pg 25.7-32.2 (BEAKER) (test code = 751) MEAN CORPUSCULAR HEMOGLOBIN CONC 31.2 GM/DL 32.3-36.5 L (BEAKER) (test code = 752) RED CELL DISTRIBUTION WIDTH 14.5 % 11.6-14.4 H (BEAKER) (test code = 412) PLATELET COUNT (BEAKER) (test 264 K/CU MM 150-450 code = 756) MEAN PLATELET VOLUME (BEAKER) 9.1 fL 9.4-12.4 L (test code = 754) NUCLEATED RED BLOOD CELLS 0 /100 WBC 0-0 (BEAKER) (test code = 413) BASIC METABOLIC [id number] 06:13:00 Test Item Value Reference Range Interpretation Comments SODIUM (BEAKER) 140 meq/L 136-145 (test code = 381) POTASSIUM (BEAKER) 3.9 meq/L 3.5-5.1 (test code = 379) CHLORIDE (BEAKER) 111 meq/L 98-107 H (test code = 382) CO2 (BEAKER) (test 23 meq/L 22-29 code = 355) BLOOD UREA NITROGEN 12 mg/dL 7-21 (BEAKER) (test code = 354) CREATININE (BEAKER) 1.50 mg/dL 0.57-1.25 H (test code = 358) GLUCOSE RANDOM 100 mg/dL 70-105 (BEAKER) (test code = 652) CALCIUM (BEAKER) 8.0 mg/dL 8.4-10.2 L (test code = 697) EGFR (BEAKER) (test 47 mL/min/1.73 ESTIMA MIS GFR IS code = 1092) sq m NOT ACCURATE CREATININE CLEARANCE IN PREDICTING GLOMERULAR FILTRATION RATE . ESTIMATED GFR I S NOT APPLICABLE FOR DIALYSIS PATIEN TS. CBC (HEMOGRAM ONLY)2018-02-12 05:35:00 Test Item Value Reference Range Interpretation Comments WHITE BLOOD CELL COUNT (BEAKER) 9.1 K/ L 3.5-10.5 (test code = 775) RED BLOOD CELL COUNT (BEAKER) 2.89 M/ L 4.63-6.08 L (test code = 761) HEMOGLOBIN (BEAKER) (test code = 8.5 GM/DL 13.7-17.5 L 410) HEMATOCRIT (BEAKER) (test code = 27.2 % 40.1-51.0 L 411) MEAN CORPUSCULAR VOLUME (BEAKER) 94.1 fL 79.0-92.2 H (test code = 753) MEAN CORPUSCULAR HEMOGLOBIN 29.4 pg 25.7-32.2 (BEAKER) (test code = 751) MEAN CORPUSCULAR HEMOGLOBIN CONC 31.3 GM/DL 32.3-36.5 L (BEAKER) (test code = 752) RED CELL DISTRIBUTION WIDTH 14.2 % 11.6-14.4 (BEAKER) (test code = 412) PLATELET COUNT (BEAKER) (test 295 K/CU MM 150-450 code = 756) MEAN PLATELET VOLUME (BEAKER) 9.1 fL 9.4-12.4 L (test code = 754) NUCLEATED RED BLOOD CELLS 0 /100 WBC 0-0 (BEAKER) (test code = 413) BASIC METABOLIC [id number] 06:06:00 Test Item Value Reference Range Interpretation Comments SODIUM (BEAKER) 143 meq/L 136-145 (test code = 381) POTASSIUM (BEAKER) 3.9 meq/L 3.5-5.1 (test code = 379) CHLORIDE (BEAKER) 113 meq/L 98-107 H (test code = 382) CO2 (BEAKER) (test 25 meq/L 22-29 code = 355) BLOOD UREA NITROGEN 12 mg/dL 7-21 (BEAKER) (test code = 354) CREATININE (BEAKER) 1.79 mg/dL 0.57-1.25 H (test code = 358) GLUCOSE RANDOM 109 mg/dL 70-105 H (BEAKER) (test code = 652) CALCIUM (BEAKER) 8.0 mg/dL 8.4-10.2 L (test code = 697) EGFR (BEAKER) (test 39 mL/min/1.73 ESTIMA MIS GFR IS code = 1092) sq m NOT ACCURATE CREATININE CLEARANCE IN PREDICTING GLOMERULAR FILTRATION RATE . ESTIMATED GFR I S NOT APPLICABLE FOR DIALYSIS PATIEN TS. CBC (HEMOGRAM ONLY)2018-02-11 05:09:00 Test Item Value Reference Range Interpretation Comments WHITE BLOOD CELL COUNT (BEAKER) 6.3 K/ L 3.5-10.5 (test code = 775) RED BLOOD CELL COUNT (BEAKER) 2.75 M/ L 4.63-6.08 L (test code = 761) HEMOGLOBIN (BEAKER) (test code = 8.1 GM/DL 13.7-17.5 L 410) HEMATOCRIT (BEAKER) (test code = 25.8 % 40.1-51.0 L 411) MEAN CORPUSCULAR VOLUME (BEAKER) 93.8 fL 79.0-92.2 H (test code = 753) MEAN CORPUSCULAR HEMOGLOBIN 29.5 pg 25.7-32.2 (BEAKER) (test code = 751) MEAN CORPUSCULAR HEMOGLOBIN CONC 31.4 GM/DL 32.3-36.5 L (BEAKER) (test code = 752) RED CELL DISTRIBUTION WIDTH 14.4 % 11.6-14.4 (BEAKER) (test code = 412) PLATELET COUNT (BEAKER) (test 301 K/CU MM 150-450 code = 756) MEAN PLATELET VOLUME (BEAKER) 8.9 fL 9.4-12.4 L (test code = 754) NUCLEATED RED BLOOD CELLS 0 /100 WBC 0-0 (BEAKER) (test code = 413) [id number] 18:24:00 Test Item Value Reference Range Interpretation Comments FERRITIN (BEAKER) (test code = 361) 36 ng/mL 5-275 VITAMIN D, [id number] 10:53:00 Test Item Value Reference Range Interpretation Comments VITAMIN D 25-OH (BEAKER) (test 10.7 ng/mL 6.6-49.9 code = 2764) Effective 02/02/2017: Reference Range ChangeNew: 6.6-49.9 ng/mL Previous: 13.0-47.8 ng/mLRecommended Vitamin D Target Range: 30.0-40.0 ng/mLIRON, TIBC, % SAT. (WITHOUT FERRITIN)2018-02-10 08:06:00 Test Item Value Reference Range Interpretation Comments IRON (BEAKER) (test code = 547) 26 ug/dL 40-160 L TOTAL IRON BINDING CAPACITY 274 ug/dL 250-450 (BEAKER) (test code = 769) IRON % SATURATION (2) (BEAKER) 9 % 20-55 L (test code = 2590) CARCINOEMBRYONIC ANTIGEN (CEA)2018-02-10 08:00:00 Test Item Value Reference Range Interpretation Comments CARCINOEMBRYONIC ANTIGEN (BEAKER) 2.6 ng/mL 0.0-5.0 (test code = 685) PTH, [id number] 07:29:00 Test Item Value Reference Range Interpretation Comments PARATHYROID HORMONE INTACT 78.6 pg/mL 8.5-72.5 H (BEAKER) (test code = 577) URIC [id number] 06:42:00 Test Item Value Reference Range Interpretation Comments URIC ACID (BEAKER) (test code = 6.2 mg/dL 2.6-7.2 773) BASIC METABOLIC [id number] 06:42:00 Test Item Value Reference Range Interpretation Comments SODIUM (BEAKER) 140 meq/L 136-145 (test code = 381) POTASSIUM (BEAKER) 4.3 meq/L 3.5-5.1 (test code = 379) CHLORIDE (BEAKER) 110 meq/L 98-107 H (test code = 382) CO2 (BEAKER) (test 24 meq/L 22-29 code = 355) BLOOD UREA NITROGEN 14 mg/dL 7-21 (BEAKER) (test code = 354) CREATININE (BEAKER) 1.65 mg/dL 0.57-1.25 H (test code = 358) GLUCOSE RANDOM 109 mg/dL 70-105 H (BEAKER) (test code = 652) CALCIUM (BEAKER) 8.0 mg/dL 8.4-10.2 L (test code = 697) EGFR (BEAKER) (test 42 mL/min/1.73 ESTIMA MIS GFR IS code = 1092) sq m NOT ACCURATE CREATININE CLEARANCE IN PREDICTING GLOMERULAR FILTRATION RATE . ESTIMATED GFR I S NOT APPLICABLE FOR DIALYSIS PATIEN TS. CBC (HEMOGRAM ONLY)2018-02-10 06:06:00 Test Item Value Reference Range Interpretation Comments WHITE BLOOD CELL COUNT (BEAKER) 7.6 K/ L 3.5-10.5 (test code = 775) RED BLOOD CELL COUNT (BEAKER) 2.90 M/ L 4.63-6.08 L (test code = 761) HEMOGLOBIN (BEAKER) (test code = 8.6 GM/DL 13.7-17.5 L 410) HEMATOCRIT (BEAKER) (test code = 27.6 % 40.1-51.0 L 411) MEAN CORPUSCULAR VOLUME (BEAKER) 95.2 fL 79.0-92.2 H (test code = 753) MEAN CORPUSCULAR HEMOGLOBIN 29.7 pg 25.7-32.2 (BEAKER) (test code = 751) MEAN CORPUSCULAR HEMOGLOBIN CONC 31.2 GM/DL 32.3-36.5 L (BEAKER) (test code = 752) RED CELL DISTRIBUTION WIDTH 14.6 % 11.6-14.4 H (BEAKER) (test code = 412) PLATELET COUNT (BEAKER) (test 296 K/CU MM 150-450 code = 756) MEAN PLATELET VOLUME (BEAKER) 9.2 fL 9.4-12.4 L (test code = 754) NUCLEATED RED BLOOD CELLS 0 /100 WBC 0-0 (BEAKER) (test code = 413) CT, CHEST, WITH [id number] 00:28:00FINAL REPORT CT, CHEST, WITH CONTRAST, CT, [...] There is no pericardial effusion. The visible po rtions of the thyroid gland are unremarkable. Review [...] MDReport Verified Date/Time: 02/10/2018 00:28:46 Reading Location: [facility] C013Y CT Body Reading Room CT, [id number] 00:28:00FINAL REPORT CT, CHEST, WITH CONTRAST, CT, [...] There is no pericardial effusion. The visible po rtions of the thyroid gland are unremarkable. Review [...] MDReport Verified Date/Time: 02/10/2018 00:28:46 Reading Location: [address] Body Reading Room PROTEIN, RANDOM [id number] 18:49:00 Test Item Value Reference Range Interpretation Comments PROTEIN, URINE (BEAKER) (test code = < mg/dL 0-14 1569) BASIC METABOLIC [id number] 06:59:00 Test Item Value Reference Range Interpretation Comments SODIUM (BEAKER) 142 meq/L 136-145 (test code = 381) POTASSIUM (BEAKER) 4.4 meq/L 3.5-5.1 (test code = 379) CHLORIDE (BEAKER) 114 meq/L 98-107 H (test code = 382) CO2 (BEAKER) (test 23 meq/L 22-29 code = 355) BLOOD UREA NITROGEN 14 mg/dL 7-21 (BEAKER) (test code = 354) CREATININE (BEAKER) 1.58 mg/dL 0.57-1.25 H (test code = 358) GLUCOSE RANDOM 95 mg/dL 70-105 (BEAKER) (test code = 652) CALCIUM (BEAKER) 7.9 mg/dL 8.4-10.2 L (test code = 697) EGFR (BEAKER) (test 45 mL/min/1.73 ESTIMA MIS GFR IS code = 1092) sq m NOT ACCURATE CREATININE CLEARANCE IN PREDICTING GLOMERULAR FILTRATION RATE . ESTIMATED GFR I S NOT APPLICABLE FOR DIALYSIS PATIEN TS. CBC (HEMOGRAM ONLY)2018-02-09 04:22:00 Test Item Value Reference Range Interpretation Comments WHITE BLOOD CELL COUNT (BEAKER) 7.9 K/ L 3.5-10.5 (test code = 775) RED BLOOD CELL COUNT (BEAKER) 2.81 M/ L 4.63-6.08 L (test code = 761) HEMOGLOBIN (BEAKER) (test code = 8.5 GM/DL 13.7-17.5 L 410) HEMATOCRIT (BEAKER) (test code = 27.3 % 40.1-51.0 L 411) MEAN CORPUSCULAR VOLUME (BEAKER) 97.2 fL 79.0-92.2 H (test code = 753) MEAN CORPUSCULAR HEMOGLOBIN 30.2 pg 25.7-32.2 (BEAKER) (test code = 751) MEAN CORPUSCULAR HEMOGLOBIN CONC 31.1 GM/DL 32.3-36.5 L (BEAKER) (test code = 752) RED CELL DISTRIBUTION WIDTH 14.9 % 11.6-14.4 H (BEAKER) (test code = 412) PLATELET COUNT (BEAKER) (test 294 K/CU MM 150-450 code = 756) MEAN PLATELET VOLUME (BEAKER) 9.4 fL 9.4-12.4 (test code = 754) NUCLEATED RED BLOOD CELLS 0 /100 WBC 0-0 (BEAKER) (test code = 413) [id number] 15:28:00 Test Item Value Reference Range Interpretation Comments ACTIVATED CLOTTING TIME 114 sec TEST ED AT [facility] 6720 (BEAKER) (test code = [place] 441) [id number] 14:58:00 Test Item Value Reference Range Interpretation Comments ACTIVATED CLOTTING TIME 191 sec TEST ED AT [facility] 6720 (BEAKER) (test code = [place] [address]) [id number] BASIC METABOLIC [id number] 07:24:00 Test Item Value Reference Range Interpretation Comments SODIUM (BEAKER) 141 meq/L 136-145 (test code = 381) POTASSIUM (BEAKER) 4.1 meq/L 3.5-5.1 (test code = 379) CHLORIDE (BEAKER) 116 meq/L 98-107 H (test code = 382) CO2 (BEAKER) (test 20 meq/L 22-29 L code = 355) BLOOD UREA NITROGEN 16 mg/dL 7-21 (BEAKER) (test code = 354) CREATININE (BEAKER) 1.68 mg/dL 0.57-1.25 H (test code = 358) GLUCOSE RANDOM 106 mg/dL 70-105 H (BEAKER) (test code = 652) CALCIUM (BEAKER) 7.9 mg/dL 8.4-10.2 L (test code = 697) EGFR (BEAKER) (test 42 mL/min/1.73 ESTIMA MIS GFR IS code = 1092) sq m NOT ACCURATE CREATININE CLEARANCE IN PREDICTING GLOMERULAR FILTRATION RATE . ESTIMATED GFR I S NOT APPLICABLE FOR DIALYSIS PATIEN TS. PROTHROMBIN [id number] 06:29:00 Test Item Value Reference Range Interpretation Comments PROTIME (BEAKER) (test code = 14.4 seconds 11.7-14.7 759) INR (BEAKER) (test code = 370) 1.1 <=5.9 RECOMMENDED COUMADIN/WARFARIN INR THERAPY RANGESSTANDARD DOSE: 2.0 - 3.0 Includes: PROPHYLAXIS forvenous thrombosis, systemic embolization; TREATMENT for venous thrombosis and/or pulmonary embolus.HIGH RISK: Target INR is 2.5-3.5 for patients with mechanical heart valves.CBC (HEMOGRAM ONLY)2018-02-08 06:13:00 Test Item Value Reference Range Interpretation Comments WHITE BLOOD CELL COUNT (BEAKER) 7.2 K/ L 3.5-10.5 (test code = 775) RED BLOOD CELL COUNT (BEAKER) 2.86 M/ L 4.63-6.08 L (test code = 761) HEMOGLOBIN (BEAKER) (test code = 8.7 GM/DL 13.7-17.5 L 410) HEMATOCRIT (BEAKER) (test code = 28.1 % 40.1-51.0 L 411) MEAN CORPUSCULAR VOLUME (BEAKER) 98.3 fL 79.0-92.2 H (test code = 753) MEAN CORPUSCULAR HEMOGLOBIN 30.4 pg 25.7-32.2 (BEAKER) (test code = 751) MEAN CORPUSCULAR HEMOGLOBIN CONC 31.0 GM/DL 32.3-36.5 L (BEAKER) (test code = 752) RED CELL DISTRIBUTION WIDTH 14.8 % 11.6-14.4 H (BEAKER) (test code = 412) PLATELET COUNT (BEAKER) (test 317 K/CU MM 150-450 code = 756) MEAN PLATELET VOLUME (BEAKER) 9.2 fL 9.4-12.4 L (test code = 754) NUCLEATED RED BLOOD CELLS 0 /100 WBC 0-0 (BEAKER) (test code = 413) BASIC METABOLIC [id number] 07:01:00 Test Item Value Reference Range Interpretation Comments SODIUM (BEAKER) 140 meq/L 136-145 (test code = 381) POTASSIUM (BEAKER) 4.2 meq/L 3.5-5.1 (test code = 379) CHLORIDE (BEAKER) 113 meq/L 98-107 H (test code = 382) CO2 (BEAKER) (test 21 meq/L 22-29 L code = 355) BLOOD UREA NITROGEN 18 mg/dL 7-21 (BEAKER) (test code = 354) CREATININE (BEAKER) 1.51 mg/dL 0.57-1.25 H (test code = 358) GLUCOSE RANDOM 102 mg/dL 70-105 (BEAKER) (test code = 652) CALCIUM (BEAKER) 8.1 mg/dL 8.4-10.2 L (test code = 697) EGFR (BEAKER) (test 47 mL/min/1.73 ESTIMA MIS GFR IS code = 1092) sq m NOT ACCURATE CREATININE CLEARANCE IN PREDICTING GLOMERULAR FILTRATION RATE . ESTIMATED GFR I S NOT APPLICABLE FOR DIALYSIS PATIEN TS. PROTHROMBIN [id number] 05:33:00 Test Item Value Reference Range Interpretation Comments PROTIME (BEAKER) (test code = 15.3 seconds 11.7-14.7 H 759) INR (BEAKER) (test code = 370) 1.2 <=5.9 RECOMMENDED COUMADIN/WARFARIN INR THERAPY RANGESSTANDARD DOSE: 2.0 - 3.0 Includes: PROPHYLAXIS forvenous thrombosis, systemic embolization; TREATMENT for venous thrombosis and/or pulmonary embolus.HIGH RISK: Target INR is 2.5-3.5 for patients with mechanical heart valves.CBC (HEMOGRAM ONLY)2018-02-07 05:10:00 Test Item Value Reference Range Interpretation Comments WHITE BLOOD CELL COUNT (BEAKER) 9.9 K/ L 3.5-10.5 (test code = 775) RED BLOOD CELL COUNT (BEAKER) 2.56 M/ L 4.63-6.08 L (test code = 761) HEMOGLOBIN (BEAKER) (test code = 7.6 GM/DL 13.7-17.5 L 410) HEMATOCRIT (BEAKER) (test code = 24.4 % 40.1-51.0 L 411) MEAN CORPUSCULAR VOLUME (BEAKER) 95.3 fL 79.0-92.2 H (test code = 753) MEAN CORPUSCULAR HEMOGLOBIN 29.7 pg 25.7-32.2 (BEAKER) (test code = 751) MEAN CORPUSCULAR HEMOGLOBIN CONC 31.1 GM/DL 32.3-36.5 L (BEAKER) (test code = 752) RED CELL DISTRIBUTION WIDTH 15.2 % 11.6-14.4 H (BEAKER) (test code = 412) PLATELET COUNT (BEAKER) (test 355 K/CU MM 150-450 code = 756) MEAN PLATELET VOLUME (BEAKER) 9.2 fL 9.4-12.4 L (test code = 754) NUCLEATED RED BLOOD CELLS 0 /100 WBC 0-0 (BEAKER) (test code = 413) HEMOGLOBIN AND [id number] 21:29:00 Test Item Value Reference Range Interpretation Comments HEMOGLOBIN (BEAKER) (test code = 7.5 GM/DL 13.7-17.5 L 410) HEMATOCRIT (BEAKER) (test code = 23.2 % 40.1-51.0 L 411) PROTHROMBIN [id number] 10:11:00 Test Item Value Reference Range Interpretation Comments PROTIME (BEAKER) (test code = 19.0 seconds 11.7-14.7 H 759) INR (BEAKER) (test code = 370) 1.6 <=5.9 RECOMMENDED COUMADIN/WARFARIN INR THERAPY RANGESSTANDARD DOSE: 2.0 - 3.0 Includes: PROPHYLAXIS forvenous thrombosis, systemic embolization; TREATMENT for venous thrombosis and/or pulmonary embolus.HIGH RISK: Target INR is 2.5-3.5 for patients with mechanical heart valves.HEMOGLOBIN AND [id number] 10:03:00 Test Item Value Reference Range Interpretation Comments HEMOGLOBIN (BEAKER) (test code = 8.3 GM/DL 13.7-17.5 L 410) HEMATOCRIT (BEAKER) (test code = 25.9 % 40.1-51.0 L 411) BASIC METABOLIC [id number] 23:30:00 Test Item Value Reference Range Interpretation Comments SODIUM (BEAKER) 138 meq/L 136-145 (test code = 381) POTASSIUM (BEAKER) 4.2 meq/L 3.5-5.1 (test code = 379) CHLORIDE (BEAKER) 114 meq/L 98-107 H (test code = 382) CO2 (BEAKER) (test 20 meq/L 22-29 L code = 355) BLOOD UREA NITROGEN 25 mg/dL 7-21 H (BEAKER) (test code = 354) CREATININE (BEAKER) 1.83 mg/dL 0.57-1.25 H (test code = 358) GLUCOSE RANDOM 104 mg/dL 70-105 (BEAKER) (test code = 652) CALCIUM (BEAKER) 7.7 mg/dL 8.4-10.2 L (test code = 697) EGFR (BEAKER) (test 38 mL/min/1.73 ESTIMA MIS GFR IS code = 1092) sq m NOT ACCURATE CREATININE CLEARANCE IN PREDICTING GLOMERULAR FILTRATION RATE . ESTIMATED GFR I S NOT APPLICABLE FOR DIALYSIS PATIEN TS. HEPATIC FUNCTION [id number] 23:04:00 Test Item Value Reference Range Interpretation Comments TOTAL PROTEIN (BEAKER) (test code = 5.1 gm/dL 6.0-8.3 L 770) ALBUMIN (BEAKER) (test code = 1145) 3.0 g/dL 3.5-5.0 L BILIRUBIN TOTAL (BEAKER) (test code 0.3 mg/dL 0.2-1.2 = 377) BILIRUBIN DIRECT (BEAKER) (test 0.1 mg/dL 0.1-0.5 code = 706) ALKALINE PHOSPHATASE (BEAKER) (test 67 U/L 40-150 code = 346) AST (SGOT) (BEAKER) (test code = 16 U/L 5-34 353) ALT (SGPT) (BEAKER) (test code = 17 U/L 6-55 347) [id number] 23:03:00 Test Item Value Reference Range Interpretation Comments PARTIAL THROMBOPLASTIN TIME 44.4 seconds 22.5-36.0 H (BEAKER) (test code = 760) PROTHROMBIN [id number] 23:02:00 Test Item Value Reference Range Interpretation Comments PROTIME (BEAKER) (test code = 34.9 seconds 11.7-14.7 H 759) INR (BEAKER) (test code = 370) 3.5 <=5.9 RECOMMENDED COUMADIN/WARFARIN INR THERAPY RANGESSTANDARD DOSE: 2.0 - 3.0 Includes: PROPHYLAXIS forvenous thrombosis, systemic embolization; TREATMENT for venous thrombosis and/or pulmonary embolus.HIGH RISK: Target INR is 2.5-3.5 for patients with mechanical heart valves.CBC W/PLT COUNT & AUTO DIFFERENTIAL 2018-02-05 22:47:00 Test Item Value Reference Range Interpretation Comments WHITE BLOOD CELL COUNT (BEAKER) 10.5 K/ L 3.5-10.5 (test code = 775) RED BLOOD CELL COUNT (BEAKER) 2.01 M/ L 4.63-6.08 L (test code = 761) HEMOGLOBIN (BEAKER) (test code = 6.1 GM/DL 13.7-17.5 L 410) HEMATOCRIT (BEAKER) (test code = 19.3 % 40.1-51.0 L 411) MEAN CORPUSCULAR VOLUME (BEAKER) 96.0 fL 79.0-92.2 H (test code = 753) MEAN CORPUSCULAR HEMOGLOBIN 30.3 pg 25.7-32.2 (BEAKER) (test code = 751) MEAN CORPUSCULAR HEMOGLOBIN CONC 31.6 GM/DL 32.3-36.5 L (BEAKER) (test code = 752) RED CELL DISTRIBUTION WIDTH 15.0 % 11.6-14.4 H (BEAKER) (test code = 412) PLATELET COUNT (BEAKER) (test 377 K/CU MM 150-450 code = 756) MEAN PLATELET VOLUME (BEAKER) 8.7 fL 9.4-12.4 L (test code = 754) NUCLEATED RED BLOOD CELLS 0 /100 WBC 0-0 (BEAKER) (test code = 413) NEUTROPHILS RELATIVE PERCENT 68 % (BEAKER) (test code = 429) LYMPHOCYTES RELATIVE PERCENT 24 % (BEAKER) (test code = 430) MONOCYTES RELATIVE PERCENT 6 % (BEAKER) (test code = 431) EOSINOPHILS RELATIVE PERCENT 2 % (BEAKER) (test code = 432) BASOPHILS RELATIVE PERCENT 0 % (BEAKER) (test code = 437) NEUTROPHILS ABSOLUTE COUNT 7.11 K/ L 1.78-5.38 H (BEAKER) (test code = 670) LYMPHOCYTES ABSOLUTE COUNT 2.46 K/ L 1.32-3.57 (BEAKER) (test code = 414) MONOCYTES ABSOLUTE COUNT (BEAKER) 0.65 K/ L 0.30-0.82 (test code = 415) EOSINOPHILS ABSOLUTE COUNT 0.17 K/ L 0.04-0.54 (BEAKER) (test code = 416) BASOPHILS ABSOLUTE COUNT (BEAKER) 0.04 K/ L 0.01-0.08 (test code = 417) IMMATURE GRANULOCYTES-RELATIVE 1 % 0-1 PERCENT (BEAKER) (test code = 2801) [id number] 05:35:00 Test Item Value Reference Range Interpretation Comments PHOSPHORUS (BEAKER) (test code = 2.7 mg/dL 2.3-4.7 604) [id number] 05:35:00 Test Item Value Reference Range Interpretation Comments MAGNESIUM (BEAKER) (test code = 1.8 mg/dL 1.6-2.6 627) BASIC METABOLIC [id number] 05:35:00 Test Item Value Reference Range Interpretation Comments SODIUM (BEAKER) 138 meq/L 136-145 (test code = 381) POTASSIUM (BEAKER) 4.2 meq/L 3.5-5.1 (test code = 379) CHLORIDE (BEAKER) 109 meq/L 98-107 H (test code = 382) CO2 (BEAKER) (test 25 meq/L 22-29 code = 355) BLOOD UREA NITROGEN 13 mg/dL 7-21 (BEAKER) (test code = 354) CREATININE (BEAKER) 1.49 mg/dL 0.57-1.25 H (test code = 358) GLUCOSE RANDOM 104 mg/dL 70-105 (BEAKER) (test code = 652) CALCIUM (BEAKER) 8.4 mg/dL 8.4-10.2 (test code = 697) EGFR (BEAKER) (test 48 mL/min/1.73 ESTIMA MIS GFR IS code = 1092) sq m NOT ACCURATE CREATININE CLEARANCE IN PREDICTING GLOMERULAR FILTRATION RATE . ESTIMATED GFR I S NOT APPLICABLE FOR DIALYSIS PATIEN TS. [id number] 05:29:00 Test Item Value Reference Range Interpretation Comments PARTIAL THROMBOPLASTIN TIME 130.9 seconds 22.5-36.0 H (BEAKER) (test code = 760) PROTHROMBIN [id number] 05:17:00 Test Item Value Reference Range Interpretation Comments PROTIME (BEAKER) (test code = 24.2 seconds 11.7-14.7 H 759) INR (BEAKER) (test code = 370) 2.2 <=5.9 RECOMMENDED COUMADIN/WARFARIN INR THERAPY RANGESSTANDARD DOSE: 2.0 - 3.0 Includes: PROPHYLAXIS forvenous thrombosis, systemic embolization; TREATMENT for venous thrombosis and/or pulmonary embolus.HIGH RISK: Target INR is 2.5-3.5 for patients with mechanical heart valves.[id number] 00:15:00 Test Item Value Reference Range Interpretation Comments PARTIAL THROMBOPLASTIN TIME 76.8 seconds 22.5-36.0 H (BEAKER) (test code = 760) [id number] 16:54:00 Test Item Value Reference Range Interpretation Comments PARTIAL THROMBOPLASTIN TIME 47.3 seconds 22.5-36.0 H (BEAKER) (test code = 760) [id number] 14:53:00 Test Item Value Reference Range Interpretation Comments PARTIAL THROMBOPLASTIN TIME 125.8 seconds 22.5-36.0 H (BEAKER) (test code = 760) CBC (HEMOGRAM ONLY)2018-01-27 14:31:00 Test Item Value Reference Range Interpretation Comments WHITE BLOOD CELL COUNT (BEAKER) 8.3 K/ L 3.5-10.5 (test code = 775) RED BLOOD CELL COUNT (BEAKER) 3.28 M/ L 4.63-6.08 L (test code = 761) HEMOGLOBIN (BEAKER) (test code = 9.8 GM/DL 13.7-17.5 L 410) HEMATOCRIT (BEAKER) (test code = 31.4 % 40.1-51.0 L 411) MEAN CORPUSCULAR VOLUME (BEAKER) 95.7 fL 79.0-92.2 H (test code = 753) MEAN CORPUSCULAR HEMOGLOBIN 29.9 pg 25.7-32.2 (BEAKER) (test code = 751) MEAN CORPUSCULAR HEMOGLOBIN CONC 31.2 GM/DL 32.3-36.5 L (BEAKER) (test code = 752) RED CELL DISTRIBUTION WIDTH 14.0 % 11.6-14.4 (BEAKER) (test code = 412) PLATELET COUNT (BEAKER) (test 230 K/CU MM 150-450 code = 756) MEAN PLATELET VOLUME (BEAKER) 9.7 fL 9.4-12.4 (test code = 754) NUCLEATED RED BLOOD CELLS 0 /100 WBC 0-0 (BEAKER) (test code = 413) PROTHROMBIN [id number] 08:29:00 Test Item Value Reference Range Interpretation Comments PROTIME (BEAKER) (test code = 16.1 seconds 11.7-14.7 H 759) INR (BEAKER) (test code = 370) 1.3 <=5.9 RECOMMENDED COUMADIN/WARFARIN INR THERAPY RANGESSTANDARD DOSE: 2.0 - 3.0 Includes: PROPHYLAXIS forvenous thrombosis, systemic embolization; TREATMENT for venous thrombosis and/or pulmonary embolus.HIGH RISK: Target INR is 2.5-3.5 for patients with mechanical heart valves.6 hours after starting heparin infusion and as indicated per sliding [id number] 07:17:00 Test Item Value Reference Range Interpretation Comments PHOSPHORUS (BEAKER) (test code = 2.1 mg/dL 2.3-4.7 L 604) [id number] 07:17:00 Test Item Value Reference Range Interpretation Comments MAGNESIUM (BEAKER) (test code = 2.0 mg/dL 1.6-2.6 627) BASIC METABOLIC [id number] 07:17:00 Test Item Value Reference Range Interpretation Comments SODIUM (BEAKER) 138 meq/L 136-145 (test code = 381) POTASSIUM (BEAKER) 4.2 meq/L 3.5-5.1 (test code = 379) CHLORIDE (BEAKER) 109 meq/L 98-107 H (test code = 382) CO2 (BEAKER) (test 25 meq/L 22-29 code = 355) BLOOD UREA NITROGEN 15 mg/dL 7-21 (BEAKER) (test code = 354) CREATININE (BEAKER) 1.47 mg/dL 0.57-1.25 H (test code = 358) GLUCOSE RANDOM 106 mg/dL 70-105 H (BEAKER) (test code = 652) CALCIUM (BEAKER) 8.3 mg/dL 8.4-10.2 L (test code = 697) EGFR (BEAKER) (test 49 mL/min/1.73 ESTIMA MIS GFR IS code = 1092) sq m NOT ACCURATE CREATININE CLEARANCE IN PREDICTING GLOMERULAR FILTRATION RATE . ESTIMATED GFR I S NOT APPLICABLE FOR DIALYSIS PATIEN TS. [id number] 07:07:00 Test Item Value Reference Range Interpretation Comments PARTIAL THROMBOPLASTIN TIME 107.3 seconds 22.5-36.0 H (BEAKER) (test code = 760) 6 hours after starting heparin infusion and as indicated per sliding scaleCBC (HEMOGRAM ONLY)2018-01-27 06:30:00 Test Item Value Reference Range Interpretation Comments WHITE BLOOD CELL COUNT (BEAKER) 8.3 K/ L 3.5-10.5 (test code = 775) RED BLOOD CELL COUNT (BEAKER) 3.38 M/ L 4.63-6.08 L (test code = 761) HEMOGLOBIN (BEAKER) (test code = 10.1 GM/DL 13.7-17.5 L 410) HEMATOCRIT (BEAKER) (test code = 32.3 % 40.1-51.0 L 411) MEAN CORPUSCULAR VOLUME (BEAKER) 95.6 fL 79.0-92.2 H (test code = 753) MEAN CORPUSCULAR HEMOGLOBIN 29.9 pg 25.7-32.2 (BEAKER) (test code = 751) MEAN CORPUSCULAR HEMOGLOBIN CONC 31.3 GM/DL 32.3-36.5 L (BEAKER) (test code = 752) RED CELL DISTRIBUTION WIDTH 13.9 % 11.6-14.4 (BEAKER) (test code = 412) PLATELET COUNT (BEAKER) (test 181 K/CU MM 150-450 code = 756) MEAN PLATELET VOLUME (BEAKER) 9.4 fL 9.4-12.4 (test code = 754) NUCLEATED RED BLOOD CELLS 0 /100 WBC 0-0 (BEAKER) (test code = 413) [id number] 01:12:00 Test Item Value Reference Range Interpretation Comments PARTIAL THROMBOPLASTIN TIME 98.7 seconds 22.5-36.0 H ([facility]) (test code = 760) TISSUE [id number] 19:09:00Surgical Pathology Report Case: [id number] Authorizing Provider: Arthur Oconnor MD Collected: 01/23/2018 1710 Ordering Location: [facility] CV Recovery Room 2 Received: 01/24/2018 0943 Pathologist: Timothy Mendoza MD Specimen: Soft Tissue, Other, RIGHT VASCULAR THROMBUS/CLOT SOFT TISSUE/THROMBUS, LEG, "RIGHT VASCULAR", THROMBECTOMY- FRAGMENTS OF THROMBUS Signing Pathologist Direct Phone Line: [phone] signed by Timothy Mendoza MD on 01/26/2018 at 7:09 [id number] vascular thrombusThe specimen is received in saline labeled with the patient's information labeled "right vascular thrombus" and consists of multiple fragments of blood clot measuring 3 x 2 x 0.5 cm in aggregate. Top Icer portions submitted A1. CG/pl [id number] 18:00:00 Test Item Value Reference Range Interpretation Comments PARTIAL THROMBOPLASTIN TIME 57.7 seconds 22.5-36.0 H ([facility]) (test code = 760) POCT-GLUCOSE [id number] 09:17:00 Test Item Value Reference Range Interpretation Comments POC-GLUCOSE METER 129 mg/dL 70-110 H TESTED AT [facility] 6720 ([facility]) (test code = [place] 1538) [id number] 09:01:00 Test Item Value Reference Range Interpretation Comments PARTIAL THROMBOPLASTIN TIME 68.7 seconds 22.5-36.0 H ([facility]) (test code = 760) [id number] 01:45:00 Test Item Value Reference Range Interpretation Comments PARTIAL THROMBOPLASTIN TIME 45.8 seconds 22.5-36.0 H ([facility]) (test code = 760) PROTHROMBIN [id number] 01:43:00 Test Item Value Reference Range Interpretation Comments PROTIME ([facility]) (test code = 13.7 seconds 11.7-14.7 759) INR ([facility]) (test code = 370) 1.1 <=5.9 RECOMMENDED COUMADIN/WARFARIN INR THERAPY RANGESSTANDARD DOSE: 2.0 - 3.0 Includes: PROPHYLAXIS forvenous thrombosis, systemic embolization; TREATMENT for venous thrombosis and/or pulmonary embolus.HIGH RISK: Target INR is 2.5-3.5 for patients with mechanical heart valves.POCT-GLUCOSE [id number] 21:14:00 Test Item Value Reference Range Interpretation Comments POC-GLUCOSE METER 115 mg/dL 70-110 H TESTED AT [place] [address] ([facility]) (test code = [facility] 1538) [id number] PLATELET AGGREGATION: FUNCTION [id number] 20:37:00 Test Item Value Reference Range Interpretation Comments WEAK ADP 48 % 60-91 L RESULT([facility]) (test code = 2135) PLATELET FUNCTION 40-49% indicates SCREEN INTERP moderate platelet ([facility]) (test code = dysfunction 2173) [id number] Buzz Urbano M.D. ([facility]) (test code = (electonic signature) 2837) PLATELET COUNT AGG 187 K/CU MM 150-450 ([facility]) (test code = 2656) POCT-GLUCOSE [id number] 17:28:00 Test Item Value Reference Range Interpretation Comments POC-GLUCOSE METER 93 mg/dL 70-110 TESTED AT [place] [address] ([facility]) (test code = [facility] [address]38) POCT-GLUCOSE [id number] 12:12:00 Test Item Value Reference Range Interpretation Comments POC-GLUCOSE METER 108 mg/dL 70-110 TESTED AT [place] [address] ([facility]) (test code = [facility] 1538) [id number] 08:17:00 Test Item Value Reference Range Interpretation Comments PARTIAL THROMBOPLASTIN TIME 47.0 seconds 22.5-36.0 H (BEAKER) (test code = 760) While on heparin. aPTT target range 60 to 80 seconds Notify MD if aPTT is out of range.POCT-GLUCOSE [id number] 07:47:00 Test Item Value Reference Range Interpretation Comments POC-GLUCOSE METER 98 mg/dL 70-110 TESTED AT [facility] 67[address] (BEAKER) (test code = [place] [address] 1538) [id number] 02:53:00 Test Item Value Reference Range Interpretation Comments PARTIAL THROMBOPLASTIN TIME 71.4 seconds 22.5-36.0 H (BEAKER) (test code = 760) While on heparin. aPTT target range 60 to 80 seconds Notify MD if aPTT is out of range.PROTHROMBIN TIME/[id number] 02:51:00 Test Item Value Reference Range Interpretation Comments PROTIME (BEAKER) (test code = 13.5 seconds 11.7-14.7 759) INR (BEAKER) (test code = 370) 1.0 <=5.9 RECOMMENDED COUMADIN/WARFARIN INR THERAPY RANGESSTANDARD DOSE: 2.0 - 3.0 Includes: PROPHYLAXIS forvenous thrombosis, systemic embolization; TREATMENT for venous thrombosis and/or pulmonary embolus.HIGH RISK: Target INR is 2.5-3.5 for patients with mechanical heart valves.While on heparin. aPTT target range 60 to 80 seconds Notify MD if aPTT is out of range.BASIC METABOLIC [id number] 02:48:00 Test Item Value Reference Range Interpretation Comments SODIUM (BEAKER) 133 meq/L 136-145 L (test code = 381) POTASSIUM (BEAKER) 3.7 meq/L 3.5-5.1 (test code = 379) CHLORIDE (BEAKER) 102 meq/L 98-107 (test code = 382) CO2 (BEAKER) (test 24 meq/L 22-29 code = 355) BLOOD UREA NITROGEN 19 mg/dL 7-21 (BEAKER) (test code = 354) CREATININE (BEAKER) 1.62 mg/dL 0.57-1.25 H (test code = 358) GLUCOSE RANDOM 106 mg/dL 70-105 H (BEAKER) (test code = 652) CALCIUM (BEAKER) 7.9 mg/dL 8.4-10.2 L (test code = 697) EGFR (BEAKER) (test 43 mL/min/1.73 ESTIMA MIS GFR IS code = 1092) sq m NOT ACCURATE CREATININE CLEARANCE IN PREDICTING GLOMERULAR FILTRATION RATE . ESTIMATED GFR I S NOT APPLICABLE FOR DIALYSIS PATIEN TS. [id number] 02:42:00 Test Item Value Reference Range Interpretation Comments MAGNESIUM (BEAKER) (test code = 2.1 mg/dL 1.6-2.6 627) CBC (HEMOGRAM ONLY)2018-01-25 02:21:00 Test Item Value Reference Range Interpretation Comments WHITE BLOOD CELL COUNT (BEAKER) 10.8 K/ L 3.5-10.5 H (test code = 775) RED BLOOD CELL COUNT (BEAKER) 3.34 M/ L 4.63-6.08 L (test code = 761) HEMOGLOBIN (BEAKER) (test code = 10.0 GM/DL 13.7-17.5 L 410) HEMATOCRIT (BEAKER) (test code = 31.1 % 40.1-51.0 L 411) MEAN CORPUSCULAR VOLUME (BEAKER) 93.1 fL 79.0-92.2 H (test code = 753) MEAN CORPUSCULAR HEMOGLOBIN 29.9 pg 25.7-32.2 (BEAKER) (test code = 751) MEAN CORPUSCULAR HEMOGLOBIN CONC 32.2 GM/DL 32.3-36.5 L (BEAKER) (test code = 752) RED CELL DISTRIBUTION WIDTH 14.0 % 11.6-14.4 (BEAKER) (test code = 412) PLATELET COUNT (BEAKER) (test 186 K/CU MM 150-450 code = 756) MEAN PLATELET VOLUME (BEAKER) 9.4 fL 9.4-12.4 (test code = 754) NUCLEATED RED BLOOD CELLS 0 /100 WBC 0-0 (BEAKER) (test code = 413) POCT-GLUCOSE [id number] 21:10:00 Test Item Value Reference Range Interpretation Comments POC-GLUCOSE METER 124 mg/dL 70-110 H TESTED AT [facility] 6720 (BEAKER) (test code = [place] 1538) [id number] 20:38:00 Test Item Value Reference Range Interpretation Comments PARTIAL THROMBOPLASTIN TIME 48.6 seconds 22.5-36.0 H (BEAKER) (test code = 760) PLATELET AGGREGATION: FUNCTION [id number] 18:24:00 Test Item Value Reference Range Interpretation Comments WEAK ADP 33 % 60-91 L RESULT(BEAKER) (test code = 2135) PLATELET FUNCTION 0-39% indicates marked SCREEN INTERP platelet dysfunction (BEAKER) (test code = 2173) [id number] Buzz Urb[facility] M.D. [facility] (test code = (electonic signature) 2622) PLATELET COUNT AGG 242 K/CU MM 150-450 (BEAKER) (test code = 2656) PLATELET AGGREGATION: FUNCTION [id number] 18:22:00 Test Item Value Reference Range Interpretation Comments WEAK ADP 25 % 60-91 L RESULT(BEAKER) (test code = 2135) PLATELET FUNCTION 0-39% indicates marked SCREEN INTERP platelet dysfunction (BEAKER) (test code = 2173) [id number] Buzz Urbano M.D. ([facility]) (test code = (electonic signature) 2622) PLATELET COUNT AGG 251 K/CU MM 150-450 (BEAKER) (test code = 2656) [id number] 16:16:00 Test Item Value Reference Range Interpretation Comments PARTIAL THROMBOPLASTIN TIME 81.3 seconds 22.5-36.0 H (BEAKER) (test code = 760) [id number] 15:37:00 Test Item Value Reference Range Interpretation Comments PARTIAL THROMBOPLASTIN TIME 38.5 seconds 22.5-36.0 H (BEAKER) (test code = 760) While on heparin. aPTT target range 50 to 80 seconds Notify MD if aPTT is out of range.HEMOGLOBIN [id number] 12:50:00 Test Item Value Reference Range Interpretation Comments HEMOGLOBIN A1C (BEAKER) (test code = 5.5 % 4.3-6.1 368) POCT-GLUCOSE [id number] 11:33:00 Test Item Value Reference Range Interpretation Comments POC-GLUCOSE METER 100 mg/dL 70-110 TESTED AT [facility] 6720 (BEAKER) (test code = [place] 1538) [id number] 08:35:00 Test Item Value Reference Range Interpretation Comments PARTIAL THROMBOPLASTIN TIME 44.9 seconds 22.5-36.0 H (BEAKER) (test code = 760) [id number] 04:15:00 Test Item Value Reference Range Interpretation Comments MAGNESIUM (BEAKER) (test code = 1.9 mg/dL 1.6-2.6 627) BASIC METABOLIC [id number] 04:15:00 Test Item Value Reference Range Interpretation Comments SODIUM (BEAKER) 136 meq/L 136-145 (test code = 381) POTASSIUM (BEAKER) 4.4 meq/L 3.5-5.1 (test code = 379) CHLORIDE (BEAKER) 107 meq/L 98-107 (test code = 382) CO2 (BEAKER) (test 22 meq/L 22-29 code = 355) BLOOD UREA NITROGEN 16 mg/dL 7-21 (BEAKER) (test code = 354) CREATININE (BEAKER) 1.54 mg/dL 0.57-1.25 H (test code = 358) GLUCOSE RANDOM 129 mg/dL 70-105 H (BEAKER) (test code = 652) CALCIUM (BEAKER) 8.1 mg/dL 8.4-10.2 L (test code = 697) EGFR (BEAKER) (test 46 mL/min/1.73 ESTIMA MIS GFR IS code = 1092) sq m NOT ACCURATE CREATININE CLEARANCE IN PREDICTING GLOMERULAR FILTRATION RATE . ESTIMATED GFR I S NOT APPLICABLE FOR DIALYSIS PATIEN TS. [id number] 04:12:00 Test Item Value Reference Range Interpretation Comments PARTIAL THROMBOPLASTIN TIME 65.1 seconds 22.5-36.0 H (BEAKER) (test code = 760) POCT-GLUCOSE [id number] 04:11:00 Test Item Value Reference Range Interpretation Comments POC-GLUCOSE METER 128 mg/dL 70-110 H TESTED AT [facility] 6720 (BEAKER) (test code = [address] [place] 1538) [id number] PROTHROMBIN [id number] 04:11:00 Test Item Value Reference Range Interpretation Comments PROTIME (BEAKER) (test code = 14.8 seconds 11.7-14.7 H 759) INR (BEAKER) (test code = 370) 1.2 <=5.9 RECOMMENDED COUMADIN/WARFARIN INR THERAPY RANGESSTANDARD DOSE: 2.0 - 3.0 Includes: PROPHYLAXIS forvenous thrombosis, systemic embolization; TREATMENT for venous thrombosis and/or pulmonary embolus.HIGH RISK: Target INR is 2.5-3.5 for patients with mechanical heart valves.CBC (HEMOGRAM ONLY)2018-01-24 03:59:00 Test Item Value Reference Range Interpretation Comments WHITE BLOOD CELL COUNT (BEAKER) 15.9 K/ L 3.5-10.5 H (test code = 775) RED BLOOD CELL COUNT (BEAKER) 3.85 M/ L 4.63-6.08 L (test code = 761) HEMOGLOBIN (BEAKER) (test code = 11.7 GM/DL 13.7-17.5 L 410) HEMATOCRIT (BEAKER) (test code = 35.7 % 40.1-51.0 L 411) MEAN CORPUSCULAR VOLUME (BEAKER) 92.7 fL 79.0-92.2 H (test code = 753) MEAN CORPUSCULAR HEMOGLOBIN 30.4 pg 25.7-32.2 (BEAKER) (test code = 751) MEAN CORPUSCULAR HEMOGLOBIN CONC 32.8 GM/DL 32.3-36.5 (BEAKER) (test code = 752) RED CELL DISTRIBUTION WIDTH 13.7 % 11.6-14.4 (BEAKER) (test code = 412) PLATELET COUNT (BEAKER) (test 250 K/CU MM 150-450 code = 756) MEAN PLATELET VOLUME (BEAKER) 9.8 fL 9.4-12.4 (test code = 754) NUCLEATED RED BLOOD CELLS 0 /100 WBC 0-0 (BEAKER) (test code = 413) RAD, CHEST, 1 VIEW, NON [id number] 00:09:00Reason for exam:->central line placement in the right IJ Should this be performed at the bedside?->YesFINAL REPORT TECHNIQUE: Frontal view of the chest. [...] normal limits. SOFT TISSUES AND BONES: Unremarkable. IMPRESSION:Interval placement of a right IJ central venous catheter with tip over the mid SVC.No pneumothorax. Small right pleural effusion versus pleural scarring. Signed: Bryan Christianson MDReport Verified Date/Time: 01/24/2018 00:09:20 Reading Location: [facility] C013W Consult Reading Room [id number] 23:29:00 Test Item Value Reference Range Interpretation Comments PARTIAL THROMBOPLASTIN TIME > seconds 22.5-36.0 HH ([facility]) (test code = 760) POCT-GLUCOSE [id number] 23:00:00 Test Item Value Reference Range Interpretation Comments POC-GLUCOSE METER 142 mg/dL 70-110 H TESTED AT [facility] 6720 ([facility]) (test code = [place] [facility] 1538) [id number] 22:22:00 Test Item Value Reference Range Interpretation Comments MAGNESIUM (BEAKER) (test code = 1.9 mg/dL 1.6-2.6 627) CALCIUM, [id number] 22:10:00 Test Item Value Reference Range Interpretation Comments CALCIUM IONIZED (BEAKER) (test 1.04 mmol/L 1.12-1.27 L code = 698) PH, BLOOD ([facility]) (test code = 7.41 1810) HEPATITIS B SURFACE [id number] 19:32:00 Test Item Value Reference Range Interpretation Comments HEPATITIS B SURFACE ANTIGEN (2) Nonreactive Nonreactive ([facility]) (test code = 2585) HIV-1 ANTIGEN WITH HIV-1/2 [id number] 19:32:00 Test Item Value Reference Range Interpretation Comments HIV-1 ANTIGEN WITH HIV 1\\T\\2 Nonreactive Nonreactive ANTIBODY (2) ([facility]) (test code = 2586) [id number] 19:23:00 Test Item Value Reference Range Interpretation Comments PARTIAL THROMBOPLASTIN TIME > seconds 22.5-36.0 HH (BEAKER) (test code = 760) BASIC METABOLIC [id number] 19:01:00 Test Item Value Reference Range Interpretation Comments SODIUM (BEAKER) 136 meq/L 136-145 (test code = 381) POTASSIUM (BEAKER) 4.6 meq/L 3.5-5.1 (test code = 379) CHLORIDE (BEAKER) 109 meq/L 98-107 H (test code = 382) CO2 (BEAKER) (test 19 meq/L 22-29 L code = 355) BLOOD UREA NITROGEN 14 mg/dL 7-21 (BEAKER) (test code = 354) CREATININE (BEAKER) 1.75 mg/dL 0.57-1.25 H (test code = 358) GLUCOSE RANDOM 154 mg/dL 70-105 H (BEAKER) (test code = 652) CALCIUM (BEAKER) 8.1 mg/dL 8.4-10.2 L (test code = 697) EGFR (BEAKER) (test 40 mL/min/1.73 ESTIMA MIS GFR IS code = 1092) sq m NOT ACCURATE CREATININE CLEARANCE IN PREDICTING GLOMERULAR FILTRATION RATE . ESTIMATED GFR I S NOT APPLICABLE FOR DIALYSIS PATIEN TS. CBC (HEMOGRAM ONLY)2018-01-23 18:45:00 Test Item Value Reference Range Interpretation Comments WHITE BLOOD CELL COUNT (BEAKER) 15.9 K/ L 3.5-10.5 H (test code = 775) RED BLOOD CELL COUNT (BEAKER) 4.00 M/ L 4.63-6.08 L (test code = 761) HEMOGLOBIN (BEAKER) (test code = 11.9 GM/DL 13.7-17.5 L 410) HEMATOCRIT (BEAKER) (test code = 38.0 % 40.1-51.0 L 411) MEAN CORPUSCULAR VOLUME (BEAKER) 95.0 fL 79.0-92.2 H (test code = 753) MEAN CORPUSCULAR HEMOGLOBIN 29.8 pg 25.7-32.2 (BEAKER) (test code = 751) MEAN CORPUSCULAR HEMOGLOBIN CONC 31.3 GM/DL 32.3-36.5 L (BEAKER) (test code = 752) RED CELL DISTRIBUTION WIDTH 13.7 % 11.6-14.4 (BEAKER) (test code = 412) PLATELET COUNT (BEAKER) (test 253 K/CU MM 150-450 code = 756) MEAN PLATELET VOLUME (BEAKER) 9.7 fL 9.4-12.4 (test code = 754) NUCLEATED RED BLOOD CELLS 0 /100 WBC 0-0 (BEAKER) (test code = 413) BLOOD GAS, [id number] 18:42:00 Test Item Value Reference Range Interpretation Comments PH ARTERIAL (BEAKER) (test code = 7.34 7.35-7.45 L 383) PCO2 ARTERIAL (BEAKER) (test code 38 mmHg 35-45 = 384) PO2 ARTERIAL (BEAKER) (test code 92 mmHg 80-90 H = 385) O2 SATURATION ARTERIAL (BEAKER) 97.4 % 96.0-97.0 H (test code = 386) HCO3 ARTERIAL (BEAKER) (test code 21 mmol/L 21-29 = 388) BASE EXCESS ARTERIAL (BEAKER) -5.3 mmol/L -2.0-3.0 L (test code = 387) PATIENT TEMPERATURE (BEAKER) 34.7 C (test code = 1818) FIO2 (BEAKER) (test code = 1819) 28.0 % GLUCOSE-STAT [id number] 18:42:00 Test Item Value Reference Range Interpretation Comments GLUCOSE RANDOM (BEAKER) (test code 149 mg/dL 70-110 H = 652) POTASSIUM-STAT [id number] 18:42:00 Test Item Value Reference Range Interpretation Comments POTASSIUM (BEAKER) (test code = 4.5 meq/L 3.6-5.5 379) [id number] 17:53:00 Test Item Value Reference Range Interpretation Comments ACTIVATED CLOTTING TIME 307 sec TEST ED AT [place] [address] ([facility]) (test code = [facility]) [id number] 17:53:00 Test Item Value Reference Range Interpretation Comments ACTIVATED CLOTTING TIME 312 sec TEST ED AT [place] [address] ([facility]) (test code = [facility]) [id number] 17:53:00 Test Item Value Reference Range Interpretation Comments ACTIVATED CLOTTING TIME 263 sec TEST ED AT [place] [address] ([facility]) (test code = [facility]) [id number] 17:53:00 Test Item Value Reference Range Interpretation Comments ACTIVATED CLOTTING TIME 235 sec TEST ED AT [facility] 6720 (BEAKER) (test code = [place] [address]) [address] BASIC METABOLIC [id number] 16:20:00 Test Item Value Reference Range Interpretation Comments SODIUM (BEAKER) 136 meq/L 136-145 (test code = 381) POTASSIUM (BEAKER) 3.9 meq/L 3.5-5.1 (test code = 379) CHLORIDE (BEAKER) 107 meq/L 98-107 (test code = 382) CO2 (BEAKER) (test 22 meq/L 22-29 code = 355) BLOOD UREA NITROGEN 15 mg/dL 7-21 (BEAKER) (test code = 354) CREATININE (BEAKER) 1.63 mg/dL 0.57-1.25 H (test code = 358) GLUCOSE RANDOM 103 mg/dL 70-105 (BEAKER) (test code = 652) CALCIUM (BEAKER) 8.4 mg/dL 8.4-10.2 (test code = 697) EGFR (BEAKER) (test 43 mL/min/1.73 ESTIMA MIS GFR IS code = 1092) sq m NOT ACCURATE CREATININE CLEARANCE IN PREDICTING GLOMERULAR FILTRATION RATE . ESTIMATED GFR I S NOT APPLICABLE FOR DIALYSIS PATIEN TS. [id number] 15:46:00 Test Item Value Reference Range Interpretation Comments PARTIAL THROMBOPLASTIN TIME 24.7 seconds 22.5-36.0 (BEAKER) (test code = 760) PROTHROMBIN [id number] 15:45:00 Test Item Value Reference Range Interpretation Comments PROTIME (BEAKER) (test code = 14.0 seconds 11.7-14.7 759) INR (BEAKER) (test code = 370) 1.1 <=5.9 RECOMMENDED COUMADIN/WARFARIN INR THERAPY RANGESSTANDARD DOSE: 2.0 - 3.0 Includes: PROPHYLAXIS forvenous thrombosis, systemic embolization; TREATMENT for venous thrombosis and/or pulmonary embolus.HIGH RISK: Target INR is 2.5-3.5 for patients with mechanical heart valves.CBC W/PLT COUNT & AUTO DIFFERENTIAL 2018-01-23 15:41:00 Test Item Value Reference Range Interpretation Comments WHITE BLOOD CELL COUNT (BEAKER) 14.3 K/ L 3.5-10.5 H (test code = 775) RED BLOOD CELL COUNT (BEAKER) 4.32 M/ L 4.63-6.08 L (test code = 761) HEMOGLOBIN (BEAKER) (test code = 13.0 GM/DL 13.7-17.5 L 410) HEMATOCRIT (BEAKER) (test code = 40.7 % 40.1-51.0 411) MEAN CORPUSCULAR VOLUME (BEAKER) 94.2 fL 79.0-92.2 H (test code = 753) MEAN CORPUSCULAR HEMOGLOBIN 30.1 pg 25.7-32.2 (BEAKER) (test code = 751) MEAN CORPUSCULAR HEMOGLOBIN CONC 31.9 GM/DL 32.3-36.5 L (BEAKER) (test code = 752) RED CELL DISTRIBUTION WIDTH 13.6 % 11.6-14.4 (BEAKER) (test code = 412) PLATELET COUNT (BEAKER) (test 240 K/CU MM 150-450 code = 756) MEAN PLATELET VOLUME (BEAKER) 9.6 fL 9.4-12.4 (test code = 754) NUCLEATED RED BLOOD CELLS 0 /100 WBC 0-0 (BEAKER) (test code = 413) NEUTROPHILS RELATIVE PERCENT 83 % (BEAKER) (test code = 429) LYMPHOCYTES RELATIVE PERCENT 11 % (BEAKER) (test code = 430) MONOCYTES RELATIVE PERCENT 5 % (BEAKER) (test code = 431) EOSINOPHILS RELATIVE PERCENT 0 % (BEAKER) (test code = 432) BASOPHILS RELATIVE PERCENT 0 % (BEAKER) (test code = 437) NEUTROPHILS ABSOLUTE COUNT 11.79 K/ L 1.78-5.38 H (BEAKER) (test code = 670) LYMPHOCYTES ABSOLUTE COUNT 1.57 K/ L 1.32-3.57 (BEAKER) (test code = 414) MONOCYTES ABSOLUTE COUNT (BEAKER) 0.75 K/ L 0.30-0.82 (test code = 415) EOSINOPHILS ABSOLUTE COUNT 0.01 K/ L 0.04-0.54 L (BEAKER) (test code = 416) BASOPHILS ABSOLUTE COUNT (BEAKER) 0.05 K/ L 0.01-0.08 (test code = 417) IMMATURE GRANULOCYTES-RELATIVE 1 % 0-1 PERCENT (BEAKER) (test code = 2801) TISSUE [id number] 14:59:00Surgical Pathology Report Case: [id number] Authorizing Provider: Arthur Oconnor MD Collected: 11/17/2017 0937 Ordering Location: [facility] CV Recovery Room 2 Received: 11/17/2017 1003 Pathologist: Vince Tobias MD Specimen: Plaque, right femoral plaque ARTERY, RIGHT FEMORAL, THROMBECTOMY:FIBRIN THROMBUSFIBROVASCULAR AND FIBROADIPOSE TISSUE Signing Pathologist Direct Phone Line: [phone] signed by Vince Tobias MD on 11/21/2017 at 2:59 [id number] femoral plaqueReceived in saline labeled "plaque", description "right femoral plaque" arefour irregular, caban- white to yellow-rose, rubbery fragments of plaque-like material measuring 3.0 x 2 .5 x 0.3 cm in aggregate. sectioning reveals no discrete masses. Top Icer sections are submitted in cassette A1. DB/ew PerformedBASI METABOLIC PANEL 2017-11-21 06:17:00 Test Item Value Reference Range Interpretation Comments SODIUM (BEAKER) 137 meq/L 136-145 (test code = 381) POTASSIUM (BEAKER) 4.0 meq/L 3.5-5.1 (test code = 379) CHLORIDE (BEAKER) 108 meq/L 98-107 H (test code = 382) CO2 (BEAKER) (test 22 meq/L 22-29 code = 355) BLOOD UREA NITROGEN 19 mg/dL 7-21 (BEAKER) (test code = 354) CREATININE (BEAKER) 1.54 mg/dL 0.57-1.25 H (test code = 358) GLUCOSE RANDOM 99 mg/dL 70-105 (BEAKER) (test code = 652) CALCIUM (BEAKER) 8.7 mg/dL 8.4-10.2 (test code = 697) EGFR (BEAKER) (test 46 mL/min/1.73 ESTIMA MIS GFR IS code = 1092) sq m NOT ACCURATE CREATININE CLEARANCE IN PREDICTING GLOMERULAR FILTRATION RATE . ESTIMATED GFR I S NOT APPLICABLE FOR DIALYSIS PATIEN TS. CBC (HEMOGRAM ONLY)2017-11-21 05:21:00 Test Item Value Reference Range Interpretation Comments WHITE BLOOD CELL COUNT (BEAKER) 8.6 K/ L 3.5-10.5 (test code = 775) RED BLOOD CELL COUNT (BEAKER) 4.33 M/ L 4.63-6.08 L (test code = 761) HEMOGLOBIN (BEAKER) (test code = 14.1 GM/DL 13.7-17.5 410) HEMATOCRIT (BEAKER) (test code = 43.3 % 40.1-51.0 411) MEAN CORPUSCULAR VOLUME (BEAKER) 100.0 fL 79.0-92.2 H (test code = 753) MEAN CORPUSCULAR HEMOGLOBIN 32.6 pg 25.7-32.2 H (BEAKER) (test code = 751) MEAN CORPUSCULAR HEMOGLOBIN CONC 32.6 GM/DL 32.3-36.5 (BEAKER) (test code = 752) RED CELL DISTRIBUTION WIDTH 15.2 % 11.6-14.4 H (BEAKER) (test code = 412) PLATELET COUNT (BEAKER) (test 173 K/CU MM 150-450 code = 756) MEAN PLATELET VOLUME (BEAKER) 9.7 fL 9.4-12.4 (test code = 754) NUCLEATED RED BLOOD CELLS 0 /100 WBC 0-0 (BEAKER) (test code = 413) BASIC METABOLIC [id number] 10:29:00 Test Item Value Reference Range Interpretation Comments SODIUM (BEAKER) 138 meq/L 136-145 (test code = 381) POTASSIUM (BEAKER) 4.0 meq/L 3.5-5.1 (test code = 379) CHLORIDE (BEAKER) 109 meq/L 98-107 H (test code = 382) CO2 (BEAKER) (test 21 meq/L 22-29 L code = 355) BLOOD UREA NITROGEN 15 mg/dL 7-21 (BEAKER) (test code = 354) CREATININE (BEAKER) 1.60 mg/dL 0.57-1.25 H (test code = 358) GLUCOSE RANDOM 101 mg/dL 70-105 (BEAKER) (test code = 652) CALCIUM (BEAKER) 8.7 mg/dL 8.4-10.2 (test code = 697) EGFR (BEAKER) (test 44 mL/min/1.73 ESTIMA MIS GFR IS code = 1092) sq m NOT ACCURATE CREATININE CLEARANCE IN PREDICTING GLOMERULAR FILTRATION RATE . ESTIMATED GFR I S NOT APPLICABLE FOR DIALYSIS PATIEN TS. LIPID [id number] 04:26:00 Test Item Value Reference Range Interpretation Comments TRIGLYCERIDES (BEAKER) (test code = 119 mg/dL 540) CHOLESTEROL (BEAKER) (test code = 123 mg/dL 631) HDL CHOLESTEROL (BEAKER) (test code 26 mg/dL = 976) LDL CHOLESTEROL CALCULATED (BEAKER) 73 mg/dL (test code = 633) Triglyceride Reference Range: Low Risk <150 Borderline 150-199 High Risk 200-499 Very High Risk >=500Cholesterol Reference Range: Low Risk <200 Borderline 200-239 High Risk >240HDL Cholesterol Reference Range: Low Risk >=60 High Risk <40LDL Cholesterol Reference Range: Optimal <100 Near Optimal 100-129 Borderline 130-159 High 160-189 Very High >=[id number] 05:39:00 Test Item Value Reference Range Interpretation Comments MAGNESIUM (BEAKER) (test code = 2.0 mg/dL 1.6-2.6 627) BASIC METABOLIC [id number] 05:39:00 Test Item Value Reference Range Interpretation Comments SODIUM (BEAKER) 137 meq/L 136-145 (test code = 381) POTASSIUM (BEAKER) 4.0 meq/L 3.5-5.1 (test code = 379) CHLORIDE (BEAKER) 109 meq/L 98-107 H (test code = 382) CO2 (BEAKER) (test 22 meq/L 22-29 code = 355) BLOOD UREA NITROGEN 16 mg/dL 7-21 (BEAKER) (test code = 354) CREATININE (BEAKER) 1.76 mg/dL 0.57-1.25 H (test code = 358) GLUCOSE RANDOM 101 mg/dL 70-105 (BEAKER) (test code = 652) CALCIUM (BEAKER) 8.5 mg/dL 8.4-10.2 (test code = 697) EGFR (BEAKER) (test 39 mL/min/1.73 ESTIMA MIS GFR IS code = 1092) sq m NOT ACCURATE CREATININE CLEARANCE IN PREDICTING GLOMERULAR FILTRATION RATE . ESTIMATED GFR I S NOT APPLICABLE FOR DIALYSIS PATIEN TS. CBC W/PLT COUNT & AUTO [id number] 05:04:00 Test Item Value Reference Range Interpretation Comments WHITE BLOOD CELL COUNT (BEAKER) 8.2 K/ L 3.5-10.5 (test code = 775) RED BLOOD CELL COUNT (BEAKER) 4.08 M/ L 4.63-6.08 L (test code = 761) HEMOGLOBIN (BEAKER) (test code = 13.1 GM/DL 13.7-17.5 L 410) HEMATOCRIT (BEAKER) (test code = 40.2 % 40.1-51.0 411) MEAN CORPUSCULAR VOLUME (BEAKER) 98.5 fL 79.0-92.2 H (test code = 753) MEAN CORPUSCULAR HEMOGLOBIN 32.1 pg 25.7-32.2 (BEAKER) (test code = 751) MEAN CORPUSCULAR HEMOGLOBIN CONC 32.6 GM/DL 32.3-36.5 (BEAKER) (test code = 752) RED CELL DISTRIBUTION WIDTH 15.0 % 11.6-14.4 H (BEAKER) (test code = 412) PLATELET COUNT (BEAKER) (test 153 K/CU MM 150-450 code = 756) MEAN PLATELET VOLUME (BEAKER) 9.7 fL 9.4-12.4 (test code = 754) NUCLEATED RED BLOOD CELLS 0 /100 WBC 0-0 (BEAKER) (test code = 413) NEUTROPHILS RELATIVE PERCENT 68 % (BEAKER) (test code = 429) LYMPHOCYTES RELATIVE PERCENT 19 % (BEAKER) (test code = 430) MONOCYTES RELATIVE PERCENT 9 % (BEAKER) (test code = 431) EOSINOPHILS RELATIVE PERCENT 4 % (BEAKER) (test code = 432) BASOPHILS RELATIVE PERCENT 0 % (BEAKER) (test code = 437) NEUTROPHILS ABSOLUTE COUNT 5.57 K/ L 1.78-5.38 H (BEAKER) (test code = 670) LYMPHOCYTES ABSOLUTE COUNT 1.60 K/ L 1.32-3.57 (BEAKER) (test code = 414) MONOCYTES ABSOLUTE COUNT (BEAKER) 0.70 K/ L 0.30-0.82 (test code = 415) EOSINOPHILS ABSOLUTE COUNT 0.30 K/ L 0.04-0.54 (BEAKER) (test code = 416) BASOPHILS ABSOLUTE COUNT (BEAKER) 0.03 K/ L 0.01-0.08 (test code = 417) IMMATURE GRANULOCYTES-RELATIVE 1 % 0-1 PERCENT (BEAKER) (test code = 2801) [id number] 07:37:00 Test Item Value Reference Range Interpretation Comments MAGNESIUM (BEAKER) (test code = 2.0 mg/dL 1.6-2.6 627) BASIC METABOLIC [id number] 07:37:00 Test Item Value Reference Range Interpretation Comments SODIUM (BEAKER) 136 meq/L 136-145 (test code = 381) POTASSIUM (BEAKER) 4.4 meq/L 3.5-5.1 (test code = 379) CHLORIDE (BEAKER) 106 meq/L 98-107 (test code = 382) CO2 (BEAKER) (test 22 meq/L 22-29 code = 355) BLOOD UREA NITROGEN 15 mg/dL 7-21 (BEAKER) (test code = 354) CREATININE (BEAKER) 1.59 mg/dL 0.57-1.25 H (test code = 358) GLUCOSE RANDOM 99 mg/dL 70-105 (BEAKER) (test code = 652) CALCIUM (BEAKER) 8.7 mg/dL 8.4-10.2 (test code = 697) EGFR (BEAKER) (test 44 mL/min/1.73 ESTIMA MIS GFR IS code = 1092) sq m NOT ACCURATE CREATININE CLEARANCE IN PREDICTING GLOMERULAR FILTRATION RATE . ESTIMATED GFR I S NOT APPLICABLE FOR DIALYSIS PATIEN TS. BASIC METABOLIC [id number] 11:14:00 Test Item Value Reference Range Interpretation Comments SODIUM (BEAKER) 139 meq/L 136-145 (test code = 381) POTASSIUM (BEAKER) 4.5 meq/L 3.5-5.1 (test code = 379) CHLORIDE (BEAKER) 111 meq/L 98-107 H (test code = 382) CO2 (BEAKER) (test 21 meq/L 22-29 L code = 355) BLOOD UREA NITROGEN 12 mg/dL 7-21 (BEAKER) (test code = 354) CREATININE (BEAKER) 1.58 mg/dL 0.57-1.25 H (test code = 358) GLUCOSE RANDOM 103 mg/dL 70-105 (BEAKER) (test code = 652) CALCIUM (BEAKER) 9.2 mg/dL 8.4-10.2 (test code = 697) EGFR (BEAKER) (test 45 mL/min/1.73 ESTIMA IMS GFR IS code = 1092) sq m NOT ACCURATE CREATININE CLEARANCE IN PREDICTING GLOMERULAR FILTRATION RATE . ESTIMATED GFR I S NOT APPLICABLE FOR DIALYSIS PATIEN TS. CBC W/PLT COUNT & AUTO [id number] 10:50:00 Test Item Value Reference Range Interpretation Comments WHITE BLOOD CELL COUNT (BEAKER) 8.7 K/ L 3.5-10.5 (test code = 775) RED BLOOD CELL COUNT (BEAKER) 4.12 M/ L 4.63-6.08 L (test code = 761) HEMOGLOBIN (BEAKER) (test code = 13.4 GM/DL 13.7-17.5 L 410) HEMATOCRIT (BEAKER) (test code = 41.5 % 40.1-51.0 411) MEAN CORPUSCULAR VOLUME (BEAKER) 100.7 fL 79.0-92.2 H (test code = 753) MEAN CORPUSCULAR HEMOGLOBIN 32.5 pg 25.7-32.2 H (BEAKER) (test code = 751) MEAN CORPUSCULAR HEMOGLOBIN CONC 32.3 GM/DL 32.3-36.5 (BEAKER) (test code = 752) RED CELL DISTRIBUTION WIDTH 15.1 % 11.6-14.4 H (BEAKER) (test code = 412) PLATELET COUNT (BEAKER) (test 231 K/CU MM 150-450 code = 756) MEAN PLATELET VOLUME (BEAKER) 8.9 fL 9.4-12.4 L (test code = 754) NUCLEATED RED BLOOD CELLS 0 /100 WBC 0-0 (BEAKER) (test code = 413) NEUTROPHILS RELATIVE PERCENT 70 % (BEAKER) (test code = 429) LYMPHOCYTES RELATIVE PERCENT 21 % (BEAKER) (test code = 430) MONOCYTES RELATIVE PERCENT 6 % (BEAKER) (test code = 431) EOSINOPHILS RELATIVE PERCENT 3 % (BEAKER) (test code = 432) BASOPHILS RELATIVE PERCENT 0 % (BEAKER) (test code = 437) NEUTROPHILS ABSOLUTE COUNT 6.04 K/ L 1.78-5.38 H (BEAKER) (test code = 670) LYMPHOCYTES ABSOLUTE COUNT 1.80 K/ L 1.32-3.57 (BEAKER) (test code = 414) MONOCYTES ABSOLUTE COUNT (BEAKER) 0.51 K/ L 0.30-0.82 (test code = 415) EOSINOPHILS ABSOLUTE COUNT 0.24 K/ L 0.04-0.54 (BEAKER) (test code = 416) BASOPHILS ABSOLUTE COUNT (BEAKER) 0.02 K/ L 0.01-0.08 (test code = 417) IMMATURE GRANULOCYTES-RELATIVE 1 % 0-1 PERCENT (BEAKER) (test code = 2801) GLUCOSE-STAT [id number] 10:35:00 Test Item Value Reference Range Interpretation Comments GLUCOSE RANDOM (BEAKER) (test code = 99 mg/dL 70-110 652) Only if arterial line in place and/or patient on ventilatorSODIUM NA-STAT LAB 2017-11-17 10:35:00 Test Item Value Reference Range Interpretation Comments SODIUM (BEAKER) (test code = 381) 137 meq/L 135-148 Only if arterial line in place and/or patient on ventilatorPOTASSIUM-STAT LAB 2017-11-17 10:35:00 Test Item Value Reference Range Interpretation Comments POTASSIUM (BEAKER) (test code = 4.4 meq/L 3.6-5.5 379) Only if arterial line in place and/or patient on ventilatorHGB/HCT (H&H) - STAT [id number] 10:35:00 Test Item Value Reference Range Interpretation Comments HEMOGLOBIN (BEAKER) (test code = 14.2 g/dL 13.0-16.8 410) HEMATOCRIT (BEAKER) (test code = 42.0 % 40.0-50.0 411) Only if arterial line in place and/or patient on ventilatorBLOOD GAS, ARTERIAL 2017-11-17 10:35:00 Test Item Value Reference Range Interpretation Comments PH ARTERIAL (BEAKER) (test code = 7.37 7.35-7.45 383) PCO2 ARTERIAL (BEAKER) (test code 37 mmHg 35-45 = 384) PO2 ARTERIAL (BEAKER) (test code 132 mmHg 80-90 H = 385) O2 SATURATION ARTERIAL (BEAKER) 98.6 % 96.0-97.0 H (test code = 386) HCO3 ARTERIAL (BEAKER) (test code 21 mmol/L 21-29 = 388) BASE EXCESS ARTERIAL (BEAKER) -4.0 mmol/L -2.0-3.0 L (test code = 387) PATIENT TEMPERATURE (BEAKER) 36.4 C (test code = 1818) FIO2 (BEAKER) (test code = 1819) 48.0 % Only if arterial line in place and/or patient on ventilatorBLOOD GAS, ARTERIAL 2017-11-17 09:03:00 Test Item Value Reference Range Interpretation Comments PH ARTERIAL (BEAKER) (test code = 7.36 7.35-7.45 383) PCO2 ARTERIAL (BEAKER) (test code 40 mmHg 35-45 = 384) PO2 ARTERIAL (BEAKER) (test code 153 mmHg 80-90 H = 385) O2 SATURATION ARTERIAL (BEAKER) 99.0 % 96.0-97.0 H (test code = 386) HCO3 ARTERIAL (BEAKER) (test code 23 mmol/L 21-29 = 388) BASE EXCESS ARTERIAL (BEAKER) -3.1 mmol/L -2.0-3.0 L (test code = 387) PATIENT TEMPERATURE (BEAKER) 35.3 C (test code = 1818) FIO2 (BEAKER) (test code = 1819) 60.0 % CALCIUM, [id number] 09:03:00 Test Item Value Reference Range Interpretation Comments CALCIUM IONIZED (BEAKER) (test 1.06 mmol/L 1.12-1.27 L code = 698) PH, BLOOD (BEAKER) (test code = 7.34 1810) GLUCOSE-STAT [id number] 09:02:00 Test Item Value Reference Range Interpretation Comments GLUCOSE RANDOM (BEAKER) (test code 106 mg/dL 70-110 = 652) SODIUM NA-STAT [id number] 09:02:00 Test Item Value Reference Range Interpretation Comments SODIUM (BEAKER) (test code = 381) 136 meq/L 135-148 POTASSIUM-STAT [id number] 09:02:00 Test Item Value Reference Range Interpretation Comments POTASSIUM (BEAKER) (test code = 4.2 meq/L 3.6-5.5 379) HGB/HCT (H&H) - STAT [id number] 09:02:00 Test Item Value Reference Range Interpretation Comments HEMOGLOBIN (BEAKER) (test code = 13.5 g/dL 13.0-16.8 410) HEMATOCRIT (BEAKER) (test code = 40.0 % 40.0-50.0 411) URINALYSIS W/ [id number] 07:46:00 Test Item Value Reference Range Interpretation Comments COLOR (BEAKER) (test code = Light Yellow 470) CLARITY (BEAKER) (test code = Clear 469) SPECIFIC GRAVITY UA (BEAKER) 1.009 1.001-1.035 (test code = 468) PH UA (BEAKER) (test code = 6.0 5.0-8.0 467) PROTEIN UA (BEAKER) (test code Negative Negative = 464) GLUCOSE UA (BEAKER) (test code Negative Negative = 365) KETONES UA (BEAKER) (test code Negative Negative = 371) BILIRUBIN UA (BEAKER) (test Negative Negative code = 462) BLOOD UA (BEAKER) (test code = Negative Negative 461) NITRITE UA (BEAKER) (test code Negative Negative = 465) LEUKOCYTE ESTERASE UA (BEAKER) Negative Negative (test code = 466) UROBILINOGEN UA (BEAKER) (test 0.2 mg/dL 0.2-1.0 code = 463) RBC UA (BEAKER) (test code = 1 /HPF 519) WBC UA (BEAKER) (test code = < /HPF 520) SOURCE(BEAKER) (test code = Urine, Voided 3230) [id number] 04:52:00 Test Item Value Reference Range Interpretation Comments MAGNESIUM (BEAKER) (test code = 2.1 mg/dL 1.6-2.6 627) COMPREHENSIVE METABOLIC [id number] 04:52:00 Test Item Value Reference Range Interpretation Comments TOTAL PROTEIN 6.2 gm/dL 6.0-8.3 (BEAKER) (test code = 770) ALBUMIN (BEAKER) 3.6 g/dL 3.5-5.0 (test code = 1145) ALKALINE PHOSPHATASE 83 U/L 40-150 (BEAKER) (test code = 346) BILIRUBIN TOTAL 0.4 mg/dL 0.2-1.2 (BEAKER) (test code = 377) SODIUM (BEAKER) (test 137 meq/L 136-145 code = 381) POTASSIUM (BEAKER) 4.4 meq/L 3.5-5.1 (test code = 379) CHLORIDE (BEAKER) 108 meq/L 98-107 H (test code = 382) CO2 (BEAKER) (test 22 meq/L 22-29 code = 355) BLOOD UREA NITROGEN 14 mg/dL 7-21 (BEAKER) (test code = 354) CREATININE (BEAKER) 1.61 mg/dL 0.57-1.25 H (test code = 358) GLUCOSE RANDOM 89 mg/dL 70-105 (BEAKER) (test code = 652) CALCIUM (BEAKER) 8.9 mg/dL 8.4-10.2 (test code = 697) AST (SGOT) (BEAKER) 18 U/L 5-34 (test code = 353) ALT (SGPT) (BEAKER) 15 U/L 6-55 (test code = 347) EGFR (BEAKER) (test 44 mL/min/1.73 ESTIMA MIS GFR IS code = 1092) sq m NOT ACCURATE CREATININE CLEARANCE IN PREDICTING GLOMERULAR FILTRATION RATE . ESTIMATED GFR I S NOT APPLICABLE FOR DIALYSIS PATIEN [id number] 04:50:00 Test Item Value Reference Range Interpretation Comments PARTIAL THROMBOPLASTIN TIME 27.8 seconds 22.5-36.0 (BEAKER) (test code = 760) PROTHROMBIN TIME/[id number] 04:49:00 Test Item Value Reference Range Interpretation Comments PROTIME (BEAKER) (test code = 13.0 seconds 11.7-14.7 759) INR (BEAKER) (test code = 370) 1.0 <=5.9 RECOMMENDED COUMADIN/WARFARIN INR THERAPY RANGESSTANDARD DOSE: 2.0 - 3.0 Includes: PROPHYLAXIS forvenous thrombosis, systemic embolization; TREATMENT for venous thrombosis and/or pulmonary embolus.HIGH RISK: Target INR is 2.5-3.5 for patients with mechanical heart valves.CBC W/PLT COUNT & AUTO DIFFERENTIAL 2017-11-17 04:34:00 Test Item Value Reference Range Interpretation Comments WHITE BLOOD CELL COUNT (BEAKER) 7.6 K/ L 3.5-10.5 (test code = 775) RED BLOOD CELL COUNT (BEAKER) 4.47 M/ L 4.63-6.08 L (test code = 761) HEMOGLOBIN (BEAKER) (test code = 14.4 GM/DL 13.7-17.5 410) HEMATOCRIT (BEAKER) (test code = 44.2 % 40.1-51.0 411) MEAN CORPUSCULAR VOLUME (BEAKER) 98.9 fL 79.0-92.2 H (test code = 753) MEAN CORPUSCULAR HEMOGLOBIN 32.2 pg 25.7-32.2 (BEAKER) (test code = 751) MEAN CORPUSCULAR HEMOGLOBIN CONC 32.6 GM/DL 32.3-36.5 (BEAKER) (test code = 752) RED CELL DISTRIBUTION WIDTH 14.8 % 11.6-14.4 H (BEAKER) (test code = 412) PLATELET COUNT (BEAKER) (test 244 K/CU MM 150-450 code = 756) MEAN PLATELET VOLUME (BEAKER) 9.2 fL 9.4-12.4 L (test code = 754) NUCLEATED RED BLOOD CELLS 0 /100 WBC 0-0 (BEAKER) (test code = 413) NEUTROPHILS RELATIVE PERCENT 68 % (BEAKER) (test code = 429) LYMPHOCYTES RELATIVE PERCENT 20 % (BEAKER) (test code = 430) MONOCYTES RELATIVE PERCENT 7 % (BEAKER) (test code = 431) EOSINOPHILS RELATIVE PERCENT 5 % (BEAKER) (test code = 432) BASOPHILS RELATIVE PERCENT 0 % (BEAKER) (test code = 437) NEUTROPHILS ABSOLUTE COUNT 5.11 K/ L 1.78-5.38 (BEAKER) (test code = 670) LYMPHOCYTES ABSOLUTE COUNT 1.54 K/ L 1.32-3.57 (BEAKER) (test code = 414) MONOCYTES ABSOLUTE COUNT (BEAKER) 0.51 K/ L 0.30-0.82 (test code = 415) EOSINOPHILS ABSOLUTE COUNT 0.36 K/ L 0.04-0.54 (BEAKER) (test code = 416) BASOPHILS ABSOLUTE COUNT (BEAKER) 0.03 K/ L 0.01-0.08 (test code = 417) IMMATURE GRANULOCYTES-RELATIVE 0 % 0-1 PERCENT (BEAKER) (test code = 2801) RAD, CHEST, 1 VIEW, NON [id number] 22:42:00Reason for exam:->pre op evalShould this be performed at the bedside?->YesFINAL REPORT INDICATION: pre op eval COMPARISON: None TECHNIQUE: Single frontal view of the chest. FINDINGS: Lungs and pleura: Clear lungs. No effusion.Heart and mediastinum: Normal heart size. Unremarkable mediastinal contours.Osseous structures: No acute abnormality.Other: None. IMPRESSION: No acute intrathoracic abnormality. Signed: JR Horta Robert MDReport Verified Date/Time: 11/16/2017 22:42:55 Reading Location: [address] Reading Room
--- OUTSIDE RECORDS SUMMARY | 2020-04-30 11:14 | XMS REPORT | Summary of Care ---
:1955 Author Organization [facility] - Health Address [address] [place] [address] Care Team Providers Name Role Phone Uriel Langford MD Primary Care Provider Encounter Details Date Type Department Care Team Description 01/11/2020 Orders Only [facility] Doctor Unassigned, No [address] [facility] [place] [address] [address] [place] [address] Allergies Active Allergy Reactions Severity Noted Date Comments Tramadol Other - See comments 05/24/2017 Syncope ended up in hospital documented as of this encounter (statuses as of 03/23/2020) Medications Medication Sig Dispensed Refills Start Date [...] as of this encounter (statuses as of 03/23/2020) Active Problems Problem Noted Date Peripheral vascular disease 05/13/2016 History of blood clots Overview: has had three in right leg, also has rey nt in right leg. Smoking HTN (hypertension) Pulmonary fibrosis documented as of this encounter (statuses as of 03/23/2020) Immunizations Name Administration Dates Next Due Influenza [...] or relatives? How often do you attend pentecostal or buddhist More than 4 time s per year 03/07/2019 services? Do you belong to any clubs or organizations No 03/07/2019 such as pentecostal groups, unions, fraternal or athletic groups, or [...] on patient's age to complete [facility] to [facility] documented as of this encounter Goals Goal Patient Goal Associated Recent Patient-Stated? Author Type Problems Progress To learn how General Yes Shashank, to walk Raysa Weber, PT again. documented as of this encounter Implants Implanted Type Area Heel Shaver Device Shelf Expiration Model / Identifier Date Serial / Lot Balloon Catheter, Lutonix 130cm 5x80 Dcp Bard #[id number] - [id number] Bard 09/03/2017 [id number] / Implanted: Qty: 1 on 05/13/2016 by Xavier Escobar MD at [facility] 0 / [id number] Angio-Seal [employer] Vascular Closure Device [employer] #[id number] - [id number] [facility] [employer] 02/22/2017 [id number] / Implanted: Qty: 1 on 05/13/2016 by Xavier Escobar MD at [facility] 0 / [id number] documented as of this encounter Procedures Procedure Name Priority Date/Time Associated Diagnosis Comme [facility] HOME HEALTH 485 Routine 01/11/2020 12:01 AM CDT documented in this encounter Results Not on filedocumented in this encounter Insurance Payer Benefit Plan / Subscriber ID Effective Dates Phone Addre ss Type Group MEDICARE MEDICARE PART [id number] 2014-[place] [phone] Medicare A t 2 [id number] BERENICE CRUMP [id number] documented as of this encounter
--- OUTSIDE RECORDS SUMMARY | 2020-04-30 11:14 | XMS REPORT | Summary of Care ---
:1955 Author Organization [facility] Address [address] [place] [address] Care Team Providers Name Role Phone Uriel Langford MD Primary Care Provider Reason for Visit Reason Comments Assessment Blood Pressure Encounter Details Date Type Department Care Team Description 03/24/2020 Telephone [facility] Family Dariana Langford MD Assessment; Blood Medicine - [address] Pressure [address] [place], [place] [address] [address] [place], [place] [phone] [address] [phone] Allergies Active Allergy Reactions Severity Noted Date Comments Tramadol Other - See comments 05/24/2017 Syncope ended up in hospital documented as of this encounter (statuses as of 03/24/2020) Medications Medication Sig Dispensed Refills Start Date [...] as of this encounter (statuses as of 03/24/2020) Active Problems Problem Noted Date Peripheral vascular disease 05/13/2016 History of blood clots Overview: has had three in right leg, also has rey nt in right leg. Smoking HTN (hypertension) Pulmonary fibrosis documented as of this encounter (statuses as of 03/24/2020) Immunizations Name Administration Dates Next Due Influenza [...] or relatives? How often do you attend yazidi or congregational More than 4 time s per year 03/07/2019 services? Do you belong to any clubs or organizations No 03/07/2019 such as yazidi groups, unions, fraternal or athletic groups, or [...] this encounter Miscellaneous Notes Telephone Encounter - Vangie Cerda MA - 03/24/2020 11:24 AM CSTPt stated he took his BP medication this AM at 7:15am, went to work and checked his BP, at 11am: 174/108 and 11:15am: 163/108, patient denies any other symptoms. notified and stated patient needs an appointment for this week with him. Pt was scheduled for , 03/27/2020 at 12pm with , ER precautions were given to patient and gave verbal understanding. elephone Encounter - Henna Bradley - 03/24/2020 11:09 AM CSTPatient is calling to speak to a nurse his bp is 163/108. Call transferred to nurse. documented in this encounter Plan of Treatment Date Type Specialty Care Team Description 03/27/2020 Office Visit Family Medicine Uriel Langford MD [address] [place] [address] [phone] Health Maintenance Due Date Last Done Comments [...] of this encounter Implants Implanted Type Area Trustee Of Estate Device Shelf Expiration Model / Identifier Date Serial / Lot Balloon Catheter, Lutonix 130cm 5x80 Dcp Bard #[id number] - [id number] Bard 09/03/2017 [id number] / Implanted: Qty: 1 on 05/13/2016 by Xavier Escobar MD at [facility] 0 / [id number] Angio-Seal Evolution Vascular Closure Device [employer] #[id number] - S0 [employer] 02/22/2017 [id number] / Implanted: Qty: 1 on 05/13/2016 by Xavier Escobar MD at [facility] 0 / [id number] documented as of this encounter Results Not on filedocumented in this encounter Insurance Payer Benefit Plan / Subscriber ID Effective Dates Phone Addre ss Type Group MEDICARE MEDICARE PART [id number] 2014-Mile [phone] [address] Medicare A 2 [id number] [place] [phone] documented as of this encounter
--- OUTSIDE RECORDS SUMMARY | 2020-04-30 11:14 | XMS REPORT | Summary of Care ---
:1955 Author Organization [facility] Address [address] [place] [address] Care Team Providers Name Role Phone Uriel Langford MD Primary Care Provider Reason for Visit Reason Comments Assessment Encounter Details Date Type Department Care Team Description 03/24/2020 Telephone [facility] Family Medicine Uriel Pike MD Assessment - [address] [place] [address] [place] [address] [phone] Allergies Active Allergy Reactions Severity Noted Date Comments Tramadol Other - See comments 05/24/2017 Syncope ended up in hospital documented as of this encounter (statuses as of 03/24/2020) Medications Medication Sig Dispensed Refills Start Date End Date Status ferrous sulfate Take 325 mg 0 Ac tive 325 mg (65 mg by mouth 3 iron) tablet (three) times daily with meals. aspirin 81 mg EC Take 1 0 04/12/2016 Ac tive tablet tablet by mouth daily. docusate 100 mg Take 1 60 capsule 0 05/14/2016 Ac tive capsule capsule by mouth every 12 (twelve) hours. acetaminophen-code Take 1 30 tablet 0 05/14/2016 Active ine tablet by (TYLENOL-CODEINE mouth every #3) 300-30 mg 4 (four) tablet hours as needed for Pain (scale 7-10). lisinopril 20 mg Take 1 90 tablet 1 05/24/2017 Ac tive tablet tablet by mouth daily. warfarin 5 mg Take 1 90 tablet 1 05/24/2017 Activ e tablet tablet by mouth every evening. gabapentin 100 mg Take 100 mg 0 Active capsule by mouth 3 (three) times daily. pantoprazole 40 mg Take 40 mg 0 Active EC tablet by mouth daily. gabapentin Take 1 30 capsule 0 05/05/2018 Active (NEURONTIN) 100 mg capsule by capsuleIndications mouth 3 : Left foot pain, (three) Peripheral times daily. vascular disease of lower extremity cilostazol 100 mg Take 1 60 tablet 0 05/05/2018 A ctive tabletIndications: tablet by Left foot pain, mouth daily. Peripheral vascular disease of lower extremity amLODIPine 5 mg Take 1 30 tablet 2 03/24/2020 Act alfred tabletIndications: tablet by Essential mouth daily. hypertension amLODIPine 5 mg Take 5 mg by 0 D iscontinued tablet mouth daily. 0 (Carlos r) documented as of this encounter (statuses as [...] had a drink in 3 months- 03/07/2019- [facility] Social Isolation Answer Date Recorded In a typical week, how many times do you Once a week 03/07/2019 talk on the phone with family, friends, or neighbors? How often do you get together with friends Never 03/07/2019 or relatives? How often do you attend episcopal or cheondoism More than 4 time s per year [...] this encounter Miscellaneous Notes Telephone Encounter - Kaelyn Avila LVN - 03/24/2020 3:37 PM CSTI spoke with the patient he reports BP currently of 170/110 with pulse of 94, he is taking the Lisinopril 20mg as ordered but he says he is not taking the Amlodipine that is listed on the chart and he has never had that medication. Dr notified and ordered Amlodipine 5mg once a day and continue taking the Lisinopril. Pt notified and script sent elephone Encounter - Olivia Humphries LVN - 03/24/2020 3:20 PM CSTPatient reported he already spoke with Kaelyn Avila and she will call him back once Dr. Langford is notified and gives his recommendations. elephone Encounter - Marisol Francisco - 03/24/2020 3:07 PM CSTPatient is concerned because his blood pressure is 170/110. He is requesting to speak to a nurse. Transferred to the clinic. documented in this encounter Plan of Treatment Date Type Specialty Care Team Description 03/27/2020 Office Visit Family Medicine Uriel Langford MD [address] [place] [address] [phone] Health Maintenance Due Date Last Done [...] learn how General Yes Encarnacion, to walk [facility], PT again. documented as of this encounter Implants Implanted Type Area Cost Accounting Clerk Device Shelf Expiration Model / Identifier Date Serial / Lot Balloon Catheter, Lutonix 130cm 5x80 Dcp Bard #[id number] - [id number] Bard 09/03/2017 [id number] / Implanted: Qty: 1 on 05/13/2016 by Xavier Escobar MD at [facility] 0 / [id number] Angio-Seal Evolution Vascular Closure Device [employer] #[id number] - S0 [employer] 02/22/2017 [id number] / Implanted: Qty: 1 on 05/13/2016 by Xavier Escobar MD at [facility] 0 / [id number] documented as of this encounter Results Not on filedocumented in this encounter Visit Diagnoses Diagnosis Essential hypertension - Primary Unspecified essential hypertension documented in this encounter Insurance Payer Benefit Plan / Subscriber ID Effective Dates Phone Addre ss Type Group MEDICARE MEDICARE PART [id number] 2014-Mile [phone] [address] Medicare A t 2 [id number] [place] CRUMP [id number] documented as of this encounter
--- OUTSIDE RECORDS SUMMARY | 2020-04-30 11:14 | XMS REPORT | Summary of Care ---
:1955 Author Organization [facility] Address [address] [place] [address] Care Team Providers Name Role Phone Uriel Langford MD Primary Care Provider Reason for Visit Reason Comments Refill Request Encounter Details Date Type Department Care Team Description 03/25/2020 Refill [facility] Family Medicine Uriel Pike MD Refill Request - [address] [place] [address] [place] [address] [phone] Allergies Active Allergy Reactions Severity Noted Date Comments Tramadol Other - See comments 05/24/2017 Syncope ended up in hospital documented as of this encounter (statuses as of 03/25/2020) Medications Medication Sig Dispensed Refills Start Date [...] hours as needed for Pain (scale 7-10). warfarin 5 mg Take 1 90 tablet [...] tabletIndications: tablet by Essential mouth daily. hypertension lisinopriL 20 mg Take 1 90 tablet 1 03/25/2020 Ac tive tabletIndications: tablet by Essential mouth daily. hypertension lisinopril 20 mg Take 1 90 tablet 1 05/24/2017 Di scontinued tablet tablet by 0 (Reorder) mouth daily. documented as of this encounter (statuses as of 03/25/2020) Active Problems Problem Noted Date Peripheral vascular disease 05/13/2016 History of blood clots Overview: has had three in right leg, also has rey nt in right leg. Smoking HTN (hypertension) Pulmonary fibrosis documented as of this encounter (statuses as of 03/25/2020) Immunizations Name Administration Dates Next Due Influenza [...] had a drink in 3 months- 03/07/2019- [facility] Social Isolation Answer Date Recorded In a typical week, how many times do you Once a week 03/07/2019 talk on the phone with family, friends, or neighbors? How often do you get together with friends Never 03/07/2019 or relatives? How often do you attend restorationist or gnosticism More than 4 time s per year 03/07/2019 services? Do you belong to any clubs or organizations No 03/07/2019 such as restorationist groups, unions, fraternal or athletic groups, or [...] this encounter Miscellaneous Notes Telephone Encounter - Olivia Humphries LVN - 03/25/2020 8:50 AM CST 2 years ago (05/24/2017) lisinopril 20 mg tablet Take 1 tablet by mouth daily. Dispense: 90 tablet Refills: This medication was last filled two years ago. Please fill if appropriate. [facility]acy: [facility] Last Office Visit: 01/09/2020 Next Office Visit: 03/27/2020 ER'S HELPER documented in this encounter Plan of Treatment Date Type Specialty Care Team Description 03/27/2020 Office Visit Family Medicine Uriel Langford MD [address] [place], [place] [address] [phone] Health Maintenance Due Date Last Done [...] how General Yes Shashank, to walk Raysa G, PT again. documented as of this encounter Implants Implanted Type Area Medical Equipment Repairer Device Shelf Expiration Model / Identifier Date Serial / Lot Balloon Catheter, Lutonix 130cm 5x80 Dcp Bard #[id number] - [id number] Bard 09/03/2017 [id number] / Implanted: Qty: 1 on 05/13/2016 by Xavier Escobar MD at [facility] 0 / [id number] Angio-Seal Evolution Vascular Closure Device [employer] #[id number] - S0 [facility] [employer] 02/22/2017 [id number] / Implanted: Qty: 1 on 05/13/2016 by Xavier Escobar MD at [facility] 0 / [id number] documented as of this encounter Results Not on filedocumented in this encounter Visit Diagnoses Diagnosis Essential hypertension - Primary Unspecified essential hypertension documented in this encounter Insurance Payer Benefit Plan / Subscriber ID Effective Dates Phone Addre ss Type Group MEDICARE MEDICARE PART [id number] 2014-Mile [phone] [address] Medicare A 2 [id number] BEREN[place] CRUMP [id number] documented as of this encounter
--- OUTSIDE RECORDS SUMMARY | 2020-04-30 11:15 | XMS REPORT | Summary of Care ---
:[address] [facility] Address [address] [place] [address] Care Team Providers Name Role Phone Uriel Langford MD Primary Care Provider Reason for Visit Reason Comments Follow-up Hypertension Encounter Details Date Type Department Care Team Description 03/27/2020 Office Visit [facility] Family Uriel Langford Essen tial hypertension (Primary Dx); Medicine - Sol TELLEZ Hx of AKA (above knee amputation), right [address] [place] [phone] Allergies Active Allergy Reactions Severity Noted Date Comments Tramadol Other - See comments 05/24/2017 Syncope ended up in hospital documented as of this encounter (statuses as of 03/27/2020) Medications Medication Sig Dispensed Refills Start Date [...] for Pain (scale 7-10). warfarin 5 mg tablet Take 1 tablet by 90 tablet 1 05/24/2017 Active mouth every evening. gabapentin 100 mg Take 100 mg by [...] pain, Peripheral vascular disease of lower extremity amLODIPine 5 mg Take 1 tablet by 30 tablet 2 03/24/2020 Active tabletIndications: mouth daily. Essential hypertension lisinopriL 20 mg Take 1 tablet by 90 tablet 1 03/25/2020 Active tabletIndications: mouth daily. Essential hypertension documented as of this encounter (statuses as of 03/27/2020) Active Problems Problem Noted Date Hx of AKA (above knee amputation), right 03/27/2020 Peripheral vascular disease 05/13/2016 History of blood clots Overview: has had three in right leg, also has rey nt in right leg. Smoking HTN (hypertension) Pulmonary fibrosis documented as of this encounter (statuses as of 03/27/2020) Immunizations Name Administration Dates Next Due Influenza [...] or relatives? How often do you attend orthodoxy or buddhism More than 4 time s per year 03/07/2019 services? Do you belong to any clubs or organizations No 03/07/2019 such as orthodoxy groups, unions, fraternal or athletic groups, or [...] been in contact with No / Unsure 03/27/2020 12:10 PM VAULT CUSTODIAN someone who was confirmed or suspected to have Coronavirus / COVID-19? documented as of this encounter Last Filed Vital Signs Vital Sign Reading Time Taken Comments Blood Pressure 110/70 03/27/2020 11:59 AM VAULT CUSTODIAN Pulse 83 03/27/2020 11:59 AM VAULT CUSTODIAN Temperature - - Respiratory Rate - - Oxygen Saturation - - Inhaled Oxygen Concentration - - Weight - - Height - - Body Mass Index - - documented in this encounter Progress Notes Uriel Langford MD - 03/27/2020 12:00 PM CST Cc: htn Chief Complaint Patient presents with Follow-up Hypertension Jaswinder Roa is a 64 year old male. htn f/u Allergies Jaswinder is allergic to tramadol. Medications Outpatient Medications Prior to Visit Medication Sig Dispense Refill lisinopriL 20 mg tablet Take 1 tablet by mouth daily. 90 tablet 1 amLODIPine 5 mg tablet Take 1 tablet by mouth daily. 30 tablet 2 cilostazol 100 mg tablet Take 1 tablet by mouth daily. 60 tablet 0 gabapentin (NEURONTIN) 100 mg capsule Take 1 capsule by mouth 3 (three) times daily. 30 capsule 0 gabapentin 100 mg capsule Take 100 mg by mouth 3 (three) times daily. pantoprazole 40 mg EC tablet Take 40 mg by mouth daily. warfarin 5 mg tablet Take 1 tablet by mouth every evening. 90 tablet 1 acetaminophen-codeine (TYLENOL-CODEINE #3) 300-30 mg tablet Take 1 tablet by mouth every 4 (four) hours as needed for Pain (scale 7-10). 30 tablet 0 docusate 100 mg capsule Take 1 capsule by mouth every 12 (twelve) hours. 60 capsule 0 aspirin 81 mg EC tablet Take 1 tablet by mouth daily. ferrous sulfate 325 mg (65 mg iron) tablet Take 325 mg by mouth 3 (three) times daily with meals. No facility-administered medications prior to visit. Histories Past Medical History: Diagnosis Date CKD (chronic kidney disease) stage 3, GFR 30-59 ml/min Critical lower limb ischemia ETOH abuse GI bleeding History of blood clots has had three in right leg, also has stent in right leg. HTN (hypertension) Pulmonary fibrosis PVD (peripheral vascular disease) Rectal mass Smoking Smoking Past Surgical History: Procedure Laterality Date ANGIOPLASTY Right 05/13/2016 Surgeon: Xavier Escobar MD; [facility] ARTERIAL THROMBOLYSIS (SHX) Right 05/13/2016 Surgeon: Xavier Escobar MD; [facility]: [facility] ARTERIOGRAM Bilateral 05/13/2016 Surgeon: Xavier Escobar MD; [facility]: [facility] LUNG BIOPSY 1994 found lung fibrosis OTHER Right 2012 in right leg to remove blood clot and repair stent Social History Socioeconomic History Marital status: Spouse name: Not on file Number of children: 0 Years of education: 12 Highest education level: High school graduate Occupational History 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 Comment: -Not since AKA Social Needs Financial resource strain: Very hard Food insecurity Worry: Often true Inability: Often true Transportation needs Medical: Yes Non-medical: No Tobacco Use Smoking status: Former Smoker Packs/day: 1.50 Years: 39.00 Pack years: 58.50 Types: Cigarettes Quit date: 06/2018 Years since quittin.7 Smokeless tobacco: Never Used Substance and Sexual Activity Alcohol use: Not Currently Alcohol/week: 14.0 standard drinks Types: 14 Shots of liquor per week Comment: Havent had a drink in 3 months- 03/07/2019- [facility] Drug use: No Sexual activity: Not Currently Partners: Female control/protection: Condom Lifestyle Physical activity Days per week: 0 days Minutes per session: 0 min Stress: To some extent Relationships Social connections Talks on phone: Once a week Gets together: Never Attends buddhism service: More than 4 times per year Active member of club or organization: No Attends meetings of clubs or organizations: Never Relationship status: Intimate partner violence Fear of current or ex partner: No Emotionally abused: Not on file Physically abused: No Forced sexual activity: No Other Topics Concern Not on file Social History Narrative Not on file Family History Problem Relation Age of Onset MT (myocardial infarction) Father 42 MT (myocardial infarction) Brother 57 Review of Systems Vital Signs BP 110/70 | Pulse 83 Physical Exam Vitals signs reviewed. HENT: Head: Normocephalic and atraumatic. Nose: Nose normal. Neck: Musculoskeletal: Normal range of motion and neck supple. Cardiovascular: Rate and Rhythm: Normal rate and regular rhythm. Pulses: Normal pulses. Heart sounds: Normal heart sounds. Pulmonary: Effort: Pulmonary effort is normal. Breath sounds: Normal breath sounds. Musculoskeletal: Normal range of motion. Skin: General: Skin is warm. Capillary Refill: Capillary refill takes less than 2 seconds. Neurological: Mental Status: He is alert. Assessment/Plan HTN, continue amlodipine and lisinopril This visit did not involve counseling and coordination that comprised more than 50% of the visit time. documented in this encounter Plan of Treatment Health Maintenance Due Date Last Done Comments HEPATITIS C (HCV) SCREEN 1955 DTaP,Tdap,and Td Vaccines (1 10/24/1974 - Tdap) COLON CANCER SCREENING ANNUAL 10/24/2005 FIT/FOBT COLON CANCER SCREENING FIT 10/24/2005 DNA EVERY 3 YEARS COLON CANCER SCREENING 10/24/2005 SIGMOIDOSCOPY EVERY 5 YEARS Zoster Recombinant Vaccine 10/24/2005 (SHINGRIX) (1 of 2) LUNG CANCER SCREEN: 10/24/2010 Recommended for age 55-80 with 30 + pack year history INFLUENZA VACCINE (#1) 2020 11/23/2018, Postponed from 12/25/2019 02/07/2018 (Refused) Depression Screening 01/08/2021 01/09/2020 COLONOSCOPY 02/07/2028 02/06/2018 [...] of this encounter Implants Implanted Type Area Entry Level Electrician Device Shelf Expiration Model / Identifier Date Serial / Lot Balloon Catheter, Lutonix 130cm 5x80 Dcp Bard #[id number] - [id number] Bard 09/03/2017 [id number] / Implanted: Qty: 1 on 05/13/2016 by Xavier Escobar MD at [facility] 0 / [id number] Angio-Seal Evolution Vascular Closure Device [employer] #[id number] - S0 [employer] 02/22/2017 [id number] / Implanted: Qty: 1 on 05/13/2016 by Xavier Escobar MD at [facility] [id number] documented as of this encounter Results Not on filedocumented in this encounter Visit Diagnoses Diagnosis Essential hypertension - Primary Unspecified essential hypertension Hx of AKA (above knee amputation), right documented in this encounter"
--- OUTSIDE RECORDS SUMMARY | 2020-04-30 11:15 | XMS REPORT | Summary of Care ---
:1955 Author Organization [facility] Address [address] [place] [address] Care Team Providers Name Role Phone Uriel Langford MD Primary Care Provider Encounter Details Date Type Department Care Team Description 03/07/2020 Orders Only [facility] Doctor Unassigned, No [address] [facility] [place] [address] [address] [place] [address] Allergies Active Allergy Reactions Severity Noted Date [...] or relatives? How often do you attend judaism or sabianism More than 4 time s per year 03/07/2019 services? Do you belong to any clubs or organizations No 03/07/2019 such as judaism groups, unions, fraternal or athletic groups, or [...] filedocumented in this encounter Plan of Treatment Date Type Specialty Care Team Description 03/27/2020 Office Visit Family Medicine Uriel Langford MD [address] [place] [address] [phone] Health Maintenance Due Date Last Done [...] on patient's age to complete this to [facility] documented as of this encounter Goals Goal Patient Goal Associated Recent Patient-Stated? Author Type Problems Progress To learn how General Yes Shashank, to walk Raysa Weber PT again. documented as of this encounter Implants Implanted Type Area Shipyard Laborer Device Shelf Expiration Model / Identifier Date Serial / Lot Balloon Catheter, Lutonix 130cm 5x80 Dcp Bard #[id number] - [id number] Bard 09/03/2017 [id number] / Implanted: Qty: 1 on 05/13/2016 by Xavier Escobar MD at [facility] 0 / [id number] Angio-Seal Evolution Vascular Closure Device [employer] #[id number] - S0 [employer] 02/22/2017 [id number] / Implanted: Qty: 1 on 05/13/2016 by Xavier Escobar MD at [facility] 0 / [id number] documented as of this encounter Procedures Procedure Name Priority Date/Time Associated Diagnosis Comme nts HOME HEALTH - OTHER Routine 03/07/2020 12:01 AM CUSHION INSTALLER documented in this encounter Results Not on filedocumented in this encounter Insurance Payer Benefit Plan / Subscriber ID Effective Dates Phone Addre ss Type Group MEDICARE MEDICARE PART [id number] 2014-Mile [phone] [address] Medicare A t 2 [id number] BERENICE CRUMP [id number] documented as of this encounter
--- OUTSIDE RECORDS SUMMARY | 2020-04-30 11:15 | XMS REPORT | Summary of Care ---
:1955 Author Organization [facility] Address [address] [place] [address] Care Team Providers Name Role Phone Uriel Langford MD Primary Care Provider Reason for Visit Reason Comments Follow-up Hypertension Encounter Details Date Type Department Care Team Description 03/27/2020 Office Visit [facility] Family Uriel Langford Essen tial hypertension (Primary Dx); Medicine - Sol TELLEZ Hx of AKA (above knee amputation), right [address] [place] [phone] Allergies Active Allergy Reactions Severity Noted [...] had a drink in 3 months- 03/07/2019- [facility] Social Isolation Answer Date Recorded In a typical week, how many times do you Once a week 03/07/2019 talk on the phone with family, friends, or neighbors? How often do you get together with friends Never 03/07/2019 or relatives? How often do you attend sabianist or roman catholic More than 4 time s per year 03/07/2019 services? Do you belong to any clubs or organizations No 03/07/2019 such as sabianist groups, unions, fraternal or athletic groups, or [...] with No / Unsure 03/27/2020 12:10 PM PHOTOGRAPHIC HAND DEVELOPER someone who was confirmed or suspected to have Coronavirus / COVID-19? 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 Comment: -Not since AKA [...] Once a week Gets together: Never Attends roman catholic service: More than 4 times per year [...] Family History Problem Relation Age of Onset [place] (myocardial infarction) Father 42 [place] (myocardial infarction) Brother 57 Review of Systems [...] of this encounter Implants Implanted Type Area Clerk Television Production Device Shelf Expiration Model / Identifier Date Serial / Lot Balloon Catheter, Lutonix 130cm 5x80 Dcp Bard #[id number] - [id number] Bard 09/03/2017 [id number] / Implanted: Qty: 1 on 05/13/2016 by Xavier Escobar MD at [facility] 0 / [id number] Angio-Seal Evolution Vascular Closure Device [employer] #[id number] - S0 [employer] 02/22/2017 [id number] / Implanted: Qty: 1 on 05/13/2016 by Xavier Escobar MD at [facility] [id number] documented as of this encounter Results Not on filedocumented in this encounter Visit Diagnoses Diagnosis Essential hypertension - Primary Unspecified essential hypertension Hx of AKA (above knee amputation), right documented in this encounter"
--- OUTSIDE RECORDS SUMMARY | 2020-04-30 11:16 | XMS REPORT | Summary of Care ---
:1955 Author Organization [facility] [[email or web address] - Health Address [address] [place] [address] Care Team Providers Name Role Phone Uriel Langford MD Primary Care Provider Encounter Details Date Type Department Care Team Description 03/31/2020 Orders Only [facility] [[email or web address]] Doctor Unassigned, No [address] [facility] [place] [address] [address] [place] [address] Allergies Active Allergy Reactions Severity Noted Date Comments Tramadol Other - See comments 05/24/2017 Syncope ended up in hospital documented as of this encounter (statuses as of 04/28/2020) Medications Medication Sig Dispensed Refills Start Date [...] as of this encounter (statuses as of 04/28/2020) Active Problems Problem Noted Date Hx of AKA (above knee amputation), right 03/27/2020 Peripheral vascular disease 05/13/2016 History of blood clots Overview: has had three in right leg, also has rey nt in right leg. Smoking HTN (hypertension) Pulmonary fibrosis documented as of this encounter (statuses as of 04/28/2020) Immunizations Name Administration Dates Next Due Influenza [...] or relatives? How often do you attend confucianism or islam More than 4 time s per year 03/07/2019 services? Do you belong to any clubs or organizations No 03/07/2019 such as confucianism groups, unions, fraternal or athletic groups, or [...] with No / Unsure 03/27/2020 12:10 PM ELECTROMATIC TYPIST someone who was confirmed or suspected to [...] on patient's age to complete this to [facility] documented as of this encounter Goals Goal Patient Goal Associated Recent Patient-Stated? Author Type Problems Progress To learn how General Yes Shashank, to walk Raysa Weber PT again. documented as of this encounter Implants Implanted Type Area Interventionist Device Shelf Expiration Model / Identifier Date Serial / Lot Balloon Catheter, Lutonix 130cm 5x80 Dcp Bard #[id number] - [id number] Bard 09/03/2017 [id number] / Implanted: Qty: 1 on 05/13/2016 by Xavier Escobar MD at [facility] 0 / [id number] Angio-Seal Evolution Vascular Closure Device [employer] #[id number] - S0 [facility] [employer] 02/22/2017 [id number] / Implanted: Qty: 1 on 05/13/2016 by Xavier Escobar MD at [facility] 0 / [id number] documented as of this encounter Procedures Procedure Name Priority Date/Time Associated Diagnosis Comme nts HOME HEALTH - OTHER Routine 03/31/2020 12:01 AM ELECTROMATIC TYPIST documented in this encounter Results Not on filedocumented in this encounter Insurance Payer Benefit Plan / Subscriber ID Effective Dates Phone Addre ss Type Group MEDICARE MEDICARE PART [id number] 2014-Mile [phone] [facility] Medicare A t 2 [id number] [place] [id number] documented as of this encounter
--- OUTSIDE RECORDS SUMMARY | 2020-04-30 11:16 | XMS REPORT | Summary of Care ---
:1955 Author Organization [facility] Address [address] [place] [address] Care Team Providers Name Role Phone Uriel Langford MD Primary Care Provider Reason for Visit Reason Comments Home Health Encounter Details Date Type Department Care Team Description 04/01/2020 Telephone [facility] Family Medicine Uriel Pike MD [facility] - [address] [place] [address] [place] [address] [phone] Allergies Active Allergy Reactions Severity Noted Date Comments Tramadol Other - See comments 05/24/2017 Syncope ended up in hospital documented as of this encounter (statuses as of 04/01/2020) Medications Medication Sig Dispensed Refills Start Date [...] as of this encounter (statuses as of 04/01/2020) Active Problems Problem Noted Date Hx of AKA (above knee amputation), right 03/27/2020 Peripheral vascular disease 05/13/2016 History of blood clots Overview: has had three in right leg, also has rey nt in right leg. Smoking HTN (hypertension) Pulmonary fibrosis documented as of this encounter (statuses as of 04/01/2020) Immunizations Name Administration Dates Next Due Influenza [...] or relatives? How often do you attend sikhism or restorationism More than 4 time s per year 03/07/2019 services? 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 documented as of this encounter Last Filed Vital Signs Not on filedocumented in this encounter Miscellaneous Notes Telephone Encounter - Kaelyn Avila LVN - 04/01/2020 2:33 PM CSTThe last office visit note has been printed for the Dr mitchell, we do not have a telemed visit in January sunni was December then recently this month. Will fax in the AM elephone Encounter - Lauren Cannon - 04/01/2020 10:40 AM CSTSayony with [facility] is requesting patients post operative follow up visit notes, telemed n otes for DOS 01/28 Notes need to be date and signed Please call Vi with any questions [phone] signed by Lauren Cannon at 04/01/2020 10:43 AM CSTdocumented in this encounter Plan of Treatment [...] of this encounter Implants Implanted Type Area High School Auto Repair Teacher Device Shelf Expiration Model / Identifier Date Serial / Lot Balloon Catheter, Lutonix 130cm 5x80 Dcp Bard #[id number] - [id number] Bard 09/03/2017 [id number] / Implanted: Qty: 1 on 05/13/2016 by Xavier Escobar MD at [facility] 0 / [id number] Angio-Seal Evolution Vascular Closure Device [employer] #C6 [id number] - S0 [facility] [employer] 02/22/2017 [id number] / Implanted: Qty: 1 on 05/13/2016 by Xavier Escobar MD at [facility] 0 / [id number] documented as of this encounter Results Not on filedocumented in this encounter Insurance Payer Benefit Plan / Subscriber ID Effective Dates Phone Addre ss Type Group MEDICARE MEDICARE PART [id number] 2014-Mile [phone] [address] Medicare A 2 [id number] [place] [phone] documented as of this encounter
--- OUTSIDE RECORDS SUMMARY | 2020-04-30 11:16 | XMS REPORT | Summary of Care ---
:1955 Author Organization [facility] Address [address] [place] [address] Care Team Providers Name Role Phone Uriel Langford MD Primary Care Provider Reason for Visit Reason Comments Forms Encounter Details Date Type Department Care Team Description 04/21/2020 Telephone [facility] Family Medicine Uriel Pike MD Forms - [address] simon [facility] [place] [address] [place] [address] [phone] Allergies Active Allergy Reactions Severity Noted Date Comments Tramadol Other - See comments 05/24/2017 Syncope ended up in hospital documented as of this encounter (statuses as of 04/21/2020) Medications Medication Sig Dispensed Refills Start Date [...] as of this encounter (statuses as of 04/21/2020) Active Problems Problem Noted Date Hx of AKA (above knee amputation), right 03/27/2020 Peripheral vascular disease 05/13/2016 History of blood clots Overview: has had three in right leg, also has rey nt in right leg. Smoking HTN (hypertension) Pulmonary fibrosis documented as of this encounter (statuses as of 04/21/2020) Immunizations Name Administration Dates Next Due Influenza [...] a drink in 3 months- 03/07/2019- [facility] Social Isolation Answer Date Recorded In a typical week, how many times do you Once a week 03/07/2019 talk on the phone with family, friends, or neighbors? How often do you get together with friends Never 03/07/2019 or relatives? How often do you attend latter-day or yazidi More than 4 time s per year 03/07/2019 services? Do you belong to any clubs or organizations No 03/07/2019 such as latter-day groups, unions, fraternal or athletic groups, or [...] with No / Unsure 03/27/2020 12:10 PM NICKER someone who was confirmed or suspected to have Coronavirus / COVID-19? documented as of this encounter Last Filed Vital Signs Not on filedocumented in this encounter Miscellaneous Notes Telephone Encounter - Lilly Dowell - 04/21/2020 2:39 PM CSTRECEIVED FAX - [address] GALLEGOS AND FAXED BACK IN PROVIDER BASKET documented in this encounter Plan of Treatment [...] of this encounter Implants Implanted Type Area Data Entry Specialist Device Shelf Expiration Model / Identifier Date Serial / Lot Balloon Catheter, Lutonix 130cm 5x80 Dcp Bard #[id number] - [id number] Bard 09/03/2017 [id number] / Implanted: Qty: 1 on 05/13/2016 by Xavier Escobar MD at [facility] 0 / [id number] Angio-Seal Evolution Vascular Closure Device [facility] [employer] #C6 [id number] - S0 [facility] [employer] 02/22/2017 [id number] / Implanted: Qty: 1 on 05/13/2016 by Xavier Escobar MD at [facility] [id number] documented as of this encounter Results Not on filedocumented in this encounter Insurance Payer Benefit Plan / Subscriber ID Effective Dates Phone Addre ss Type Group MEDICARE MEDICARE PART [id number] 2014-Mile [phone] [address] Medicare A 2 [id number] [place] [phone] documented as of this encounter
--- OUTSIDE RECORDS SUMMARY | 2020-04-30 11:16 | XMS REPORT | Summary of Care ---
:1955 Author Organization [facility] Address [address] [place] [address] Care Team Providers Name Role Phone Uriel Langford MD Primary Care Provider Reason for Visit Reason Comments Refill Request Encounter Details Date Type Department Care Team Description 04/23/2020 Refill [facility] Family Medicine Uriel Pike MD Refill Request - [address] [place] [address] [place] [address] [phone] Allergies Active Allergy Reactions Severity Noted Date Comments Tramadol Other - See comments 05/24/2017 Syncope ended up in hospital documented as of this encounter (statuses as of 04/23/2020) Medications Medication Sig Dispensed Refills Start Date [...] as of this encounter (statuses as of 04/23/2020) Active Problems Problem Noted Date Hx of AKA (above knee amputation), right 03/27/2020 Peripheral vascular disease 05/13/2016 History of blood clots Overview: has had three in right leg, also has rey nt in right leg. Smoking HTN (hypertension) Pulmonary fibrosis documented as of this encounter (statuses as of 04/23/2020) Immunizations Name Administration Dates Next Due Influenza [...] or relatives? How often do you attend adventist or sikh More than 4 time s per year 03/07/2019 services? 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 documented as of this encounter Last Filed Vital Signs Not on filedocumented in this encounter Miscellaneous Notes Telephone Encounter - Marisol Francisco - 04/23/2020 9:22 AM CSTHe is requesting 90 day supply. SAFETY TECHNICIAN documented in this encounter Plan of Treatment [...] of this encounter Implants Implanted Type Area Director Of Elementary Education Device Shelf Expiration Model / Identifier Date Serial / Lot Balloon Catheter, Lutonix 130cm 5x80 Dcp Bard #[id number] - [id number] Bard 09/03/2017 [id number] / Implanted: Qty: 1 on 05/13/2016 by Xavier Escobar MD at [facility] 0 / [id number] Angio-Seal Evolution Vascular Closure Device [facility] [employer] #C6 [id number] - S0 [facility] [employer] 02/22/2017 [id number] / Implanted: Qty: 1 on 05/13/2016 by Xavier Escobar MD at [facility] 0 / [id number] documented as of this encounter Results Not on filedocumented in this encounter Visit Diagnoses Diagnosis Essential hypertension Unspecified essential hypertension documented in this encounter Insurance Payer Benefit Plan / Subscriber ID Effective Dates Phone Addre ss Type Group MEDICARE MEDICARE PART [id number] 2014-Mile [phone] [address] Medicare A 2 [id number] [place] [phone] documented as of this encounter
--- OUTSIDE RECORDS SUMMARY | 2020-04-30 11:17 | XMS REPORT | Summary of Care ---
:[address] [facility] Address [address] [place] [address] Care Team Providers Name Role Phone Uriel Langford MD Primary Care Provider Reason for Visit Reason Comments Rx Concern/Question Encounter Details Date Type Department Care Team Description 04/29/2020 Telephone [facility] Family Dariana Langford MD Rx Concern/Question Medicine - [address] alfred [place], [place] [phone] [phone] Allergies Active Allergy Reactions Severity Noted Date Comments Tramadol Other - See comments 05/24/2017 Syncope ended up in hospital documented as of this encounter (statuses as of 04/29/2020) Medications Medication Sig Dispensed Refills Start Date End Date Status ferrous sulfate 325 mg Take 325 mg by 0 Active (65 mg iron) tablet mouth 3 (three) times daily with meals. aspirin 81 mg EC tablet Take 1 tablet by 0 6 Active mouth daily. docusate 100 mg capsule Take 1 capsule 60 capsule 0 05/14/2016 Active by mouth every 12 (twelve) hours. acetaminophen-codeine Take [...] mouth daily. gabapentin (NEURONTIN) Take 1 capsule 30 capsule 0 05/05/2018 Active 100 mg by mouth 3 capsuleIndications: Left (three) times foot pain, Peripheral daily. vascular disease of lower extremity cilostazol 100 mg Take 1 tablet by 60 tablet 0 05/05/2018 Active tabletIndications: Left mouth daily. foot pain, Peripheral vascular disease of lower extremity amLODIPine 5 mg Take 1 tablet by 30 tablet 2 03/24/2020 Active tabletIndications: mouth daily. Essential hypertension lisinopriL 20 mg Take 1 tablet by 90 tablet 1 03/25/2020 Active tabletIndications: mouth daily. Essential hypertension azithromycin (ZITHROMAX Take 1 tablet by 1 Package 0 1 Active Z-ONDINA) 250 mg mouth tabletIndications: SEE-INSTRUCTIONS Shortness of breath . Take 500 mg day 1, then 250 mg days 2 to 5. methylPREDNISolone Take by mouth 21 Each 0 04/28/2020 Active (MEDROL, ONDINA,) 4 mg SEE-INSTRUCTIONS tabletsIndications: . follow package Shortness of breath directions albuterol 90 Inhale 2 Puffs 8.5 g 0 04/28/2020 A ctive mcg/actuation every 4 (four) inhalerIndications: hours as needed Shortness of breath for Wheezing or Shortness of Breath. documented as of this encounter (statuses as of 04/29/2020) Active Problems Problem Noted Date Hx of AKA (above knee amputation), right 03/27/2020 Peripheral vascular disease 05/13/2016 History of blood clots Overview: has had three in right leg, also has rey nt in right leg. Smoking HTN (hypertension) Pulmonary fibrosis documented as of this encounter (statuses as of 04/29/2020) Immunizations Name Administration Dates Next Due Influenza [...] had a drink in 3 months- 03/07/2019- [facility] Social Isolation Answer Date Recorded In a typical week, how many times do you Once a week 03/07/2019 talk on the phone with family, friends, or neighbors? How often do you get together with friends Never 03/07/2019 or relatives? How often do you attend nondenominational or scientologist More than 4 time s per year 03/07/2019 services? 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 documented as of this encounter Last Filed Vital Signs Not on filedocumented in this encounter Miscellaneous Notes Telephone Encounter - Kaelyn Avila LVN - 04/29/2020 12:10 PM CSTI called the patient back and advised he will have to be seen in order to see if he will qualify foroxygen as in the ER his oxygen sat was 99% no indication that he needs oxygen at all. Appt made for and he was advised to go to the ER if he worsens before his appointment. Understanding verbalized. elephone Encounter - Booker Sampson - 04/29/2020 11:18 AM CSTPatient is calling in stating that ER recommended Oxygen to be sent to home patient so patient is wanting PCP to advise a solution for Rx. documented in this encounter Plan of Treatment [...] on patient's age to complete [facility] to [facility] documented as of this encounter Goals Goal Patient Goal Associated Recent Patient-Stated? Author Type Problems Progress To learn how General Yes Encarnacion, to walk [facility], PT again. documented as of this encounter Implants Implanted Type Area Forensic Economist Device Shelf Expiration Model / Identifier Date Serial / Lot Balloon Catheter, Lutonix 130cm 5x80 Dcp Bard #[id number] - [id number] Bard 09/03/2017 [id number] / Implanted: Qty: 1 on 05/13/2016 by Xavier Escobar MD at [facility] 0 / [id number] Angio-Seal Evolution Vascular Closure Device [employer] #C6 [id number] - S0 [facility] [employer] 02/22/2017 [id number] / Implanted: Qty: 1 on 05/13/2016 by Xavier Escobar MD at [facility] 0 / [id number] documented as of this encounter Results Not on filedocumented in this encounter Insurance Payer Benefit Plan / Subscriber ID Effective Dates Phone Addre ss Type Group MEDICARE MEDICARE PART [id number] 2014-Mile [phone] [address] [address] Medicare A t 2 [id number] [place] [phone] documented as of this encounter
--- OUTSIDE RECORDS SUMMARY | 2020-04-30 11:17 | XMS REPORT | Summary of Care ---
:1955 Author Organization [facility] - [facility] [place] Address [address] [place] [address] Care Team Providers Name Role Phone Uriel Langford MD Primary Care Provider Reason for Referral (STAT) Status Reason Specialty Diagnoses / Referred By Referred To Procedures Contact Contact New Request Oncology Diagnoses Pulmonary nodule Uriel Langford, Procedures CONSULT/REFERRAL MEDICAL ONCOLOGY [address] [place] [phone] Reason for Visit Reason Comments Referral/consult Encounter Details Date Type Department Care Team Description 04/29/2020 Telephone [facility] Family Dariana Langford MD Referral/consult Medicine - [address] [place] [phone] Allergies Active Allergy Reactions Severity Noted [...] or relatives? How often do you attend shinto or buddhism More than 4 time s per year 03/07/2019 services? 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 documented as of this encounter Last Filed Vital Signs Not on filedocumented in this encounter Miscellaneous Notes Telephone Encounter - Kaelyn Avila LVN - 04/29/2020 10:12 AM CSTI called patient to confirm the oncologist he prefers, he wants to stay with [facility] and requests a [facility] for pulmonary nodules vs metastatic disease. He also states the ER MD told him he might need a PET scan to determine if he has mets anywhere as he is also having rectal bleeding. I advised patient that the Oncologist will determine whether he needs any other scanning done and they will order it. 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 No obvious signs of infection. Patient to be discharged with azithromycin/albuterol/Medrol secondary to his complaints with history of emphysema. Additionally patient is to be referred to oncology with [facility] for further evaluation of pulmonary nodules versus metastatic disease. ALSO ASKING FOR ORDER TO HAVE PASP SCAN, PLEASE ADVISE. elephone Encounter - Miriam Newman - 04/29/2020 9:07 AM CSTPatient called back to state he also needs a referral for PASP scan-per patient for clear arcos. Please advise. elephone Encounter - Booker Sampson - 04/29/2020 8:23 AM CSTPatient is calling in requesting a referral to see an oncologist.Please advise documented in this encounter Plan of Treatment [...] of this encounter Implants Implanted Type Area Public Relations Intern Device Shelf Expiration Model / Identifier Date Serial / Lot Balloon Catheter, Lutonix 130cm 5x80 Dcp Bard #[id number] - [id number] 09/03/2017 [id number] / Implanted: Qty: 1 on 05/13/2016 by Xavier Escobar MD at [facility] 0 / [id number] Angio-Seal Evolution Vascular Closure Device [employer] #[id number] - [id number] [employer] 02/22/2017 [id number] / Implanted: Qty: 1 on 05/13/2016 by Xavier Escobar MD at [facility] 0 / [id number] documented as of this encounter Results Not on filedocumented in this encounter Visit Diagnoses Diagnosis Pulmonary nodule - Primary Solitary pulmonary nodule documented in this encounter Insurance Payer Benefit Plan / Subscriber ID Effective Dates Phone Addre ss Type Group MEDICARE MEDICARE PART [id number] 2014-[place]ile [phone] [address] Medicare A 2 [id number] B[place] CRUMP [id number] documented as of this encounter
--- OUTSIDE RECORDS SUMMARY | 2020-04-30 11:17 | XMS REPORT | Summary of Care ---
:1955 Author Organization [facility] Address [address] [place] [address] Care Team Providers Name Role Phone Uriel Langford MD Primary Care Provider Reason for Visit Reason Comments Assessment Triage Encounter Details Date Type Department Care Team Description 04/30/2020 Telephone [facility] Family Dariana Langford MD Assessment (Triage) Medicine - [address] simon [place], [place] [phone] Allergies Active Allergy Reactions Severity Noted Date Comments Tramadol Other - See comments 05/24/2017 Syncope ended up in hospital documented as of this encounter (statuses as of 04/30/2020) Medications Medication Sig Dispensed Refills Start Date [...] as of this encounter (statuses as of 04/30/2020) Active Problems Problem Noted Date Hx of AKA (above knee amputation), right 03/27/2020 Peripheral vascular disease 05/13/2016 History of blood clots Overview: has had three in right leg, also has rey nt in right leg. 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 documented as of this encounter Last Filed Vital Signs Not on filedocumented in this encounter Miscellaneous Notes Telephone Encounter - Kaelyn Avila LVN - 04/30/2020 10:42 AM CSTI took this call spoke with patient who is having difficulty breathing and SOB with bp of 123/54 andrecurrent nosebleeds. I advised him that due to the dyspnea and SOB he should go to the ER to be assessed and treated right away. He verbalized understanding and will call someone to pick him up to take to Er Dr Langford was aware. elephone Encounter - Michaela Bennett - 04/30/2020 10:13 AM CSTPatient is calling and is requesting to speak to the nurse in regards to his BP and a nose bleed, patient stated BP is at 124/54 and is having a difficulty breathing, call has been transferred to clinic for triage. documented in this encounter Plan of Treatment Date Type Specialty Care Team Description 05/01/2020 Office Visit Family Medicine Uriel Langford MD [address] [place], [place] [phone] Health Maintenance Due Date Last Done [...] of this encounter Implants Implanted Type Area Academic Advisor Device Shelf Expiration Model / Identifier Date Serial / Lot Balloon Catheter, Lutonix 130cm 5x80 Dcp Bard #[id number] - [id number] [employer] 09/03/2017 [id number] / Implanted: Qty: 1 on 05/13/2016 by Xavier Escobar MD at [facility] 0 / [id number] Angio-Seal Evolution Vascular Closure Device [employer] #[id number] - S0 [employer] 02/22/2017 [id number] / Implanted: Qty: 1 on 05/13/2016 by Xavier Escobar MD at [facility] 0 / [id number] documented as of this encounter Results Not on filedocumented in this encounter Insurance Payer Benefit Plan / Subscriber ID Effective Dates Phone Addre ss Type Group MEDICARE MEDICARE PART [id number] 2014-[place]ile [phone] [facility] Medicare A t 2 [id number] BEREN[place] CRUMP [id number] documented as of this encounter
--- OUTSIDE RECORDS SUMMARY | 2020-04-30 11:17 | XMS REPORT | Summary of Care ---
:1955 Author Organization [facility] - [facility] Address [address] [place] [id number] Care Team Providers Name Role Phone Uriel Langford MD Primary Care Provider Reason for Referral MRI/CAT Scan (Routine) Status Reason Specialty Diagnoses / Referred By Referred To Procedures Contact Contact New Request Diagnostic Diagnoses Shortness of breath Dakota Taylor, Radiology Procedures CT CHEST PULMONARY ANGIOGRAM CT THORAX W CONTRAST DO [address] [place] [address] [place] [address] Reason for Visit Reason Comments Shortness of Breath Auth/Cert Status Reason Specialty Diagnoses / Referred By Referred To Procedures Contact Contact Emergency Medicine [facility] ergency Dept [address] [place] [address] Fax: Encounter Details Date Type Department Care Team Description 04/28/2020 Emergency [facility]-Emergency Dakota Taylor DO Shortness of breath Department [address] [place] [address] (Primary Dx) [address] [place] [id number] [place] [address] [phone] Allergies Active Allergy Reactions Severity Noted Date Comments Tramadol Other - See comments 05/24/2017 Syncope ended up in hospital documented as of this encounter (statuses as of 04/28/2020) Medications Medication Sig Dispensed Refills Start End Status Date Date ferrous sulfate 325 mg Take 325 mg by 0 Active (65 mg iron) tablet mouth 3 (three) times daily with meals. aspirin 81 mg EC Take 1 tablet 0 04/12/20 Active tablet by mouth 16 daily. docusate 100 mg Take 1 capsule 60 capsule 0 05/14/19 Active capsule by mouth every 17 12 (twelve) hours. acetaminophen-codeine Take 1 tablet 30 tablet 0 05/14/19 Active (TYLENOL-CODEINE #3) by mouth every 17 300-30 mg tablet 4 (four) hours as needed for Pain (scale 7-10). warfarin 5 mg tablet Take 1 tablet 90 tablet 1 05/24/19 Active by mouth every 18 evening. gabapentin 100 mg Take 100 mg by 0 Active capsule mouth 3 (three) times daily. pantoprazole 40 mg EC Take 40 mg by 0 Active tablet mouth daily. gabapentin (NEURONTIN) Take 1 capsule 30 capsule 0 05/05/19 Active 100 mg by mouth 3 19 capsuleIndications: (three) times Left foot pain, daily. Peripheral vascular disease of lower extremity cilostazol 100 mg Take 1 tablet 60 tablet 0 05/05/19 Active tabletIndications: by mouth 19 Left foot pain, daily. Peripheral vascular disease of lower extremity amLODIPine 5 mg Take 1 tablet 30 tablet 2 03/24/20 Active tabletIndications: by mouth 20 Essential hypertension daily. lisinopriL 20 mg Take 1 tablet 90 tablet 1 03/25/20 Active tabletIndications: by mouth 20 Essential hypertension daily. azithromycin Take 1 tablet 1 Package 0 04/28/19 Act alfred (ZITHROMAX Z-ONDINA) 250 by mouth 21 mg tabletIndications: SEE-INSTRUCTIO Shortness of breath NS. Take 500 mg day 1, then 250 mg days 2 to 5. methylPREDNISolone Take by mouth 21 Each 0 04/28/19 Active (MEDROL, ONDINA,) 4 mg SEE-INSTRUCTIO 21 tabletsIndications: NS. follow Shortness of breath package directions albuterol 90 Inhale 2 Puffs 8.5 g 0 04/28/19 Ac tive mcg/actuation every 4 (four) 21 inhalerIndications: hours as Shortness of breath needed for Wheezing or Shortness of Breath. albuterol 90 Inhale 2 Puffs 8.5 g 0 04/28/19/07/25 Di scontinued mcg/actuation every 4 (four) 21 021 ( Reorder) inhalerIndications: hours as Shortness of breath needed for Wheezing or Shortness of Breath. documented [...] or relatives? How often do you attend jewish or mandaeism More than 4 time s per year 03/07/2019 services? Do you belong to any clubs or organizations No 03/07/2019 such as jewish groups, unions, fraternal or athletic groups, or [...] with No / Unsure 04/28/2020 10:44 AM MOCCASIN SEWER someone who was confirmed or suspected to have Coronavirus / COVID-19? documented as of this encounter Last Filed Vital Signs Vital Sign Reading Time Taken Comments Blood Pressure 114/68 04/28/2020 5:12 PM MOCCASIN SEWER Pulse 93 04/28/2020 5:12 PM MOCCASIN SEWER Temperature 37.2 C (98.9 F) 04/28/2020 9:59 AM MOCCASIN SEWER Respiratory Rate 13 04/28/2020 5:12 PM MOCCASIN SEWER Oxygen Saturation 99% 04/28/2020 5:16 PM MOCCASIN SEWER Inhaled Oxygen Concentration - - Weight 86.2 kg (190 lb) 04/28/2020 9:59 AM MOCCASIN SEWER Height - - Body Mass Index 24.39 06/07/2019 10:12 AM MOCCASIN SEWER documented in this encounter Discharge Instructions Dakota Lawton DO - 04/28/2020 DIAGNOSIS Diagnoses that have been ruled out: None Diagnoses that are still under consideration: None Final diagnoses: Shortness of breath NO LIFE-THREATENING FINDINGS ON TODAY'S EXAM. PROCEDURES IN THE ER TODAY: Orders Placed This Encounter Procedures CT CHEST PULMONARY ANGIOGRAM CBC WITH DIFF COMP. METABOLIC PANEL (74430) N-TERMINAL PRO-BNP TROPONIN I URINALYSIS COVID-19 (ID NOW RAPID TESTING) LAB ONLY COVID INTERPRETATION MEDICATIONS ADMINISTERED IN THE ER TODAY AND DISCHARGE MEDICATIONS: Orders Placed This Encounter Medications iohexol (OMNIPAQUE 350 BULK-100 mL) injection 100 mL azithromycin (ZITHROMAX Z-ONDINA) 250 mg tablet albuterol 90 mcg/actuation inhaler methylPREDNISolone (MEDROL, ONDINA,) 4 mg tablets FOLLOW-UP RECOMMENDATIONS: RECOMMEND FOLLOW-UP WITH A PRIMARY CARE PROVIDER OR SPECIALIST IN 2-5 DAYS, ESPECIALLY IF NO IMPROVEMENT IN SYMPTOMS. MAY FOLLOW-UP WITH A PROVIDER OF YOUR CHOICE, SUCH : 1. A PHYSICIAN OF YOUR CHOICE 2. VIA [facility], . LOCATIONS IN [facility] 3. [facility], [address] [place] [address]; [phone] OR, IF YOU WISH TO FOLLOW-UP WITHIN THE [facility], MAY TRY THESE OPTIONS (CLINIC APPOINTMENTS AVAILABLE ON TGAN-SU-NUVU BASIS): 1. SCHEDULE AN APPOINTMENT ONLINE AT WWW.[facility] 2. OR CALL THE [facility] ACCESS CENTER AT OR 3. OR CALL YOUR [facility] PHYSICIAN'S OFFICE DIRECTLY IF YOU ARE ALREADY AN ESTABLISHED [facility] PATIENT. RETURN TO ER FOR WORSENING OF SYMPTOMS. AttachmentsThe following attachments cannot be sent through Care Everywhere. Shortness of Breath (Dyspnea) (Slovak)documented in this encounter ED Notes Radha García RN - 04/28/2020 9:58 AM CSTPatient [facility]/o SOB that started suddenly this am; patient does have a history of DVT and is on anticoagulants. akota Taylor DO - 04/28/2020 9:56 AM CST EMERGENCY DEPARTMENT ENCOUNTER [facility] Patient Name: Jaswinder Roa Date of : 1955 64 year old Exam Room:[facility] Primary Care Physician: Uriel Langford Pre- Hospital Patient Escorted by: Self [9] Mode of Arrival: EMS - [facility] ([place]) [43] EMS Treatment Prior to ED Arrival: OUTDOOR LANDSCAPE ARCHITECT treatment: Oxygen Chief Complaint Chief Complaint Patient presents with Shortness of Breath HPI 64-year-old male presenting with 2 days of shortness of breath and cough. 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 He states that he went to the store otherwise usual state of health and is otherwise been having shortness of breath since then. Denies being around anyone with Covid. No sore throat, body aches, or headaches. Past Medical History / Immunizations Past Medical History: Diagnosis Date CKD (chronic kidney disease) stage 3, GFR 30-59 ml/min Critical lower limb ischemia ETOH abuse GI bleeding History of blood clots has had three in right leg, also has stent in right leg. HTN (hypertension) Pulmonary fibrosis PVD (peripheral vascular disease) Rectal mass Smoking Smoking Tetanus received in last 5 years: Yes Childhood immunizations: Up-to-date Past Surgical History Past Surgical History: Procedure Laterality Date ANGIOPLASTY Right 05/13/2016 Surgeon: Xavier Escobar MD; [facility] ARTERIAL THROMBOLYSIS (SHX) Right 05/13/2016 Surgeon: Xavier Escobar MD; [facility]: [facility] ARTERIOGRAM Bilateral 05/13/2016 Surgeon: Xavier Escobar MD; [facility]: [facility] LUNG BIOPSY 1994 found lung fibrosis OTHER Right 2012 in right leg to remove blood clot and repair stent Allergies Allergies Allergen Reactions Tramadol Other - See comments Syncope ended up in hospital Social History Tobacco Use Former Smoker; Quit 06/2018; Smoked an average of 1.5 packs/day for 39 years; Smoked: Cigarettes. Smokeless Tobacco: Never used smokeless tobacco. Alcohol Use Not Currently; 14.0 standard drinks of alcohol per week; 14 Shots of liquor. Comments: Havent had a drink in 3 months- 03/07/2019- [facility] Drug Use No. Sexual Activity Not currently sexually active; Partners: Female; Control/Protection: Condom. Review of Systems Review of Systems Constitutional: Positive for fatigue. Negative for activity change and fever. HENT: Negative for sore throat. Respiratory: Positive for cough and shortness of breath. Gastrointestinal: Negative for diarrhea and nausea. Genitourinary: Negative for dysuria. Skin: Negative for rash. Neurological: Negative for headaches. Physical Exam BP 114/68 | Pulse 93 | Temp 37.2 C (98.9 F) (Oral) | Resp 13 | Wt 86.2 kg (190 lb) | SpO2 99% | BMI 24.39 kg/m Physical Exam Vitals signs and nursing note reviewed. Constitutional: Appearance: He is well-developed. HENT: Head: Normocephalic and atraumatic. Eyes: General: No scleral icterus. Conjunctiva/sclera: Conjunctivae normal. Pupils: Pupils are equal, round, and reactive to light. Neck: Musculoskeletal: Normal range of motion and neck supple. Vascular: No JVD. Cardiovascular: Rate and Rhythm: Regular rhythm. Tachycardia present. Heart sounds: Normal heart sounds. Pulmonary: Effort: Pulmonary effort is normal. Breath sounds: Normal breath sounds. No stridor. Abdominal: General: Bowel sounds are normal. Palpations: Abdomen is soft. Musculoskeletal: Normal range of motion. Comments: Right BKA. Skin: General: Skin is warm and dry. Neurological: Mental Status: He is alert and oriented to person, place, and time. Psychiatric: Behavior: Behavior normal. Thought Content: Thought content normal. Labs Recent Results (from the past 24 hour(s)) CBC WITH DIFF Collection Time: 04/28/20 10:44 AM Result Value Ref Range WBC 13.08 (H) 4.20 - 10.70 10*3/L RBC 2.84 (L) 4.26 - 5.52 10*6/L HGB 8.1 (L) 12.2 - 16.4 g/dL HCT 25.0 (L) 38.4 - 49.3 % MCV 88.0 81.7 - 95.6 fL MCH 28.5 26.1 - 32.7 pg MCHC 32.4 31.2 - 35.0 g/dL RDW-SD 45.2 38.5 - 51.6 fL RDW-CV 14.1 12.1 - 15.4 % PLT 559 (H) 150 - 328 10*3/L MPV 8.8 (L) 9.8 - 13.0 fL NRBC/100 WBC 0.0 0.0 - 10.0 /100 WBCs NRBC x10^3 <0.01 10*3/L GRAN MAT (NEUT) % 78.1 % IMM GRAN % 0.80 % LYMPH % 11.2 % MONO % 8.2 % EOS % 1.2 % BASO % 0.5 % GRAN MAT x10^3(ANC) 10.21 (H) 1.99 - 6.95 10*3/uL IMM GRAN x10^3 0.10 (H) 0.00 - 0.06 10*3/uL LYMPH x10^3 1.47 1.09 - 3.23 10*3/uL MONO x10^3 1.07 (H) 0.36 - 1.02 10*3/uL EOS x10^3 0.16 0.06 - 0.53 10*3/uL BASO x10^3 0.07 0.01 - 0.09 10*3/uL COMP. METABOLIC PANEL (92658) Collection Time: 04/28/20 10:44 AM Result Value Ref Range NA 138 135 - 145 mmol/L K 4.1 3.5 - 5.0 mmol/L CL 106 98 - 108 mmol/L CO2 TOTAL 18 (L) 23 - 31 mmol/L AGAP 14 2 - 16 BUN 17 7 - 23 mg/dL GLUCOSE 125 (H) 70 - 110 mg/dL CREATININE 1.76 (H) 0.60 - 1.25 mg/dL TOTAL BILI 0.5 0.1 - 1.1 mg/dL CALCIUM 8.9 8.6 - 10.6 mg/dL T PROTEIN 7.2 6.3 - 8.2 g/dL ALBUMIN 3.7 3.5 - 5.0 g/dL ALK PHOS 209 (H) 34 - 122 U/L ALTv 18 5 - 50 U/L AST(SGOT) 54 (H) 13 - 40 U/L eGFR Calculation (Non-) 39.2 mL/min/1.73m2 eGFR Calculation () 47.5 mL/min/1.73m2 N-TERMINAL PRO-BNP Collection Time: 04/28/20 10:44 AM Result Value Ref Range NT-proBNP 270 (H) <=125 pg/mL TROPONIN I Collection Time: 04/28/20 10:44 AM Result Value Ref Range TROPONIN I <0.012 <=0.034 ng/mL COVID-19 (ID NOW RAPID TESTING) Collection Time: 04/28/20 4:41 PM Specimen: NASOPHARYNGEAL SWAB Result Value Ref Range SARS-CoV-2 Rapid ID NOW Not Detected Not Detected Imaging Hospital Encounter on 04/28/20 CT CHEST PULMONARY ANGIOGRAM Narrative Ordering Physician: DAKOTA TAYLOR. Procedure: CT CHEST PULMONARY ANGIOGRAM Examination performed according to ALARA (As Low as Reasonably Achievable). Three dimensional multiplanar maximum intensity projection reformatting was utilized. Comparison: None. History: PE suspected, high pretest prob . Findings: There is good pulmonary arterial opacification with Hounsfield units on the over 800 in the pulmonary trunk. Of note, there is decreased opacification in the distal left main pulmonary artery continuing into the left upper lobe and to a lesser extent in the left lower lobe but with relative better opacification distally. Similar finding is seen in the right upper lobe and right middle lobe with good opacification in the right lower lobe. At the same time, this is not accompanied by a well-defined filling defect and is therefore thought to be artifactual related to mixing. Mild to moderate bilateral centrilobular emphysema is present. Staple line is noted in the inferior right middle lobe peripherally. Multiple pulmonary nodules are seen in the left lower lobe measuring up to 9 mm. Metastatic disease cannot be excluded. Clinical correlation recommended. No infiltrates, effusions, or pneumothoraces are seen. Heart size is within normal limits. No pulmonary edema is seen. Aorta normal caliber. No lymphadenopathy by CT criteria identified. Limited evaluation of the upper abdomen is unremarkable. Partially visualized density within the aorta likely reflecting aortic stent graft. Right internal jugular Port-A-Cath. Impression Impression: Bilateral upper lobe and to a lesser extent right middle lobe and left lower lobe areas of decreased enhancement of the pulmonary arteries favored to be related to artifact. No well-defined filling defects typical of pulmonary emboli are seen. Postoperative changes as described. Left lower lobe pulmonary nodules. Metastatic disease is not excluded. End of Report. RL: [id number] Orders and Treatments Orders Placed This Encounter Procedures CT CHEST PULMONARY ANGIOGRAM CBC WITH DIFF COMP. METABOLIC PANEL (35943) N-TERMINAL PRO-BNP TROPONIN I URINALYSIS COVID-19 (ID NOW RAPID TESTING) LAB ONLY COVID INTERPRETATION Orders Placed This Encounter Medications iohexol (OMNIPAQUE 350 BULK-100 mL) injection 100 mL azithromycin (ZITHROMAX Z-ONDINA) 250 mg tablet albuterol 90 mcg/actuation inhaler methylPREDNISolone (MEDROL, ONDINA,) 4 mg tablets Procedures See ED Procedure Note Notes & MDM Patient was evaluated for an emergency medical condition related to Shortness of Breath . Differential diagnoses considered by presenting complaints but not limited to: COVID, PE, Infection NOS, Metastatic disease, and others. Labs:were ordered, and resulted, any relevant abnormalities were considered. Imaging:Ordered, and resulted, any relevant abnormalities were considered. IV fluids: not indicated Procedures:were not performed. Assessment: 64-year-old male with known history of emphysema and colorectal cancer. Additionally has had a history of DVT PE is on warfarin. CTA for pulmonary embolism was negative today. Incidental finding of pulmonary nodules. No obvious signs of infection. Patient to be discharged with azithromycin/albuter ol/Medrol secondary to his complaints with history of emphysema. Additionally patient is to be referred to oncology with [facility] for further evaluation of pulmonary nodules versus metastatic disease. History, physical exam findings, results of visit, differential diagnosis, medication regimens and plan of future care have been considered. Additional MDM may be found in the ED course. Differential diagnosis considered and final disposition made based on information gathered during evaluation and may not be completely ruled out or specifically listed. Vital signs were rechecked before final disposition and determined to be expected for patient's clinical condition.. Diagnosis ICD-10-CM ICD-9-CM 1. Shortness of breath R06.02 786.05 Disposition & Follow Up ED Disposition ED Disposition Condition Comment Disch - Home Stable Patient's Medications START taking these medications ALBUTEROL 90 MCG/ACTUATION INHALER Inhale 2 Puffs every 4 (four) hours as needed for Wheezing orShortness of Breath. AZITHROMYCIN (ZITHROMAX Z-ONDINA) 250 MG TABLET Take 1 tablet by mouth SEE- INSTRUCTIONS. Take 500 mg day 1, then 250 mg days 2 to 5. METHYLPREDNISOLONE (MEDROL, ONDINA,) 4 MG TABLETS Take by mouth SEE- INSTRUCTIONS. follow package directions CONTINUE taking these medications which have NOT CHANGED ACETAMINOPHEN-CODEINE (TYLENOL-CODEINE #3) 300-30 MG TABLET Take 1 tablet by mouth every 4 (four) hours as needed for Pain (scale 7-10). AMLODIPINE 5 MG TABLET Take 1 tablet by mouth daily. ASPIRIN 81 MG EC TABLET Take 1 tablet by mouth daily. CILOSTAZOL 100 MG TABLET Take 1 tablet by mouth daily. DOCUSATE 100 MG CAPSULE Take 1 capsule by mouth every 12 (twelve) hours. FERROUS SULFATE 325 MG (65 MG IRON) TABLET Take 325 mg by mouth 3 (three) times daily with meals. GABAPENTIN (NEURONTIN) 100 MG CAPSULE Take 1 capsule by mouth 3 (three) times daily. GABAPENTIN 100 MG CAPSULE Take 100 mg by mouth 3 (three) times daily. LISINOPRIL 20 MG TABLET Take 1 tablet by mouth daily. PANTOPRAZOLE 40 MG EC TABLET Take 40 mg by mouth daily. WARFARIN 5 MG TABLET Take 1 tablet by mouth every evening. START taking Modified Medications as Prescribed No medications on file STOP taking these medications No medications on file Contact information for follow-up [facility] Oncology Specialty: Oncology [facility] [address] [facility] [address] Instructions: For follow up of the presenting symptoms. Patient has hx of colorectal now with pulmonary nodules. Wants new provider with [facility]. Please evaluate and manage. ADC-Emergency Department Specialty: Emergency Medicine [address] [place] [id number] Instructions: If symptoms worsen as documented in the discharge Dakota Taylor DO 04/28/2020 10:25 AM ACTIVE COVID-19 PANDEMIC. documented in this encounter Miscellaneous Notes ED Nurse Note - Beulah Louis RN - 04/28/2020 6:40 PM CSTPt given printed and verbal discharge instructions Prescriptions provided Albuterol Azithromycin Solumedrol Discussed antibiotic therapy and to take until all completed unless adverse reaction occurs - if occurs, discontinue medication and follow up with pcp/seek medical attention Pt verbalized understanding of instructions, pt awake alert oriented, resp reg unlabored, skin w/d, color appropriate for race, moves all ext well,pt encouraged to follow up with pcp Advised to seek medical attention for new/prolonged/worsening of symptoms, No adverse reaction to meds given in ER noted upon discharge PIV d'cd, dressing to site, catheter in tact. Awake, alert oriented, resp reg unlabored, skin w/d, Leaving via wheel chair in no apparent distress, D Nurse Note - Dee Hu RN - 04/28/2020 5:00 [address] CSTDr. Taylor hasn't talked to the patient yet, reminded him that patient still wants to talk to him. D Nurse Note - Dee Hu RN - 04/28/2020 4:[address] Taylor that patient wants to talk to him. D Nurse Note - Dee Hu RN - 04/28/2020 2:57 PM CSTReport received from ELENA Garcia. Dee Hu RN D Nurse Note - Radha García RN - 04/28/2020 12:[address] returned from CT; states she was unable to preform the CT do to IV infiltrating during procedure. documented in this encounter Plan of Treatment Name Type Priority Associated Diagnoses Date/Ti me LAB ONLY COVID LAB Routine Shortness of breath 2020 4:41 PM INTERPRETATION MOCCASIN SEWER Name Type Priority Associated Diagnoses Order S chedule LAB ONLY COVID LAB Routine Shortness of breath ONCE f or 1 Occurrences INTERPRETATION starting 07/2020 until Health Maintenance Due Date Last Done Comments [...] on patient's age to complete this to [facility] documented as of this encounter Goals Goal Patient Goal Associated Recent Patient-Stated? Author Type Problems Progress To learn how General Yes Shashank, to walk Raysa Weber, PT again. documented as of this encounter Implants Implanted Type Area Access Rn Device Shelf Expiration Model / Identifier Date Serial / Lot Balloon Catheter, Lutonix 130cm 5x80 Dcp Bard #[id number] - [id number] Bard 09/03/2017 [id number] / Implanted: Qty: 1 on 05/13/2016 by Xavier Escobar MD at [facility] 0 / [id number] Angio-Seal Evolution Vascular Closure Device [employer] #[id number] - [id number] [employer] 02/22/2017 [id number] / Implanted: Qty: 1 on 05/13/2016 by Xavier Escobar MD at [facility] 0 / [id number] documented as of this encounter Procedures Procedure Name Priority Date/Time Associated Diagnosis Comme nts COVID-19 (ID NOW STAT 04/28/2020 4:41 PM Shortness of steff th Results for this RAPID TESTING) MOCCASIN SEWER procedure are in the results section. CT CHEST PULMONARY Routine 04/28/2020 1:49 PM Shortness of br eath Results for this ANGIOGRAM MOCCASIN SEWER procedure are i n the results section. N-TERMINAL PRO-BNP STAT 04/28/2020 10:44 AM Shortness of br eath Results for this MOCCASIN SEWER procedure are i n the results section. CBC WITH DIFF STAT 04/28/2020 10:44 AM Shortness of breath Results for this MOCCASIN SEWER procedure are i n the results section. COMP. METABOLIC STAT 04/28/2020 10:44 AM Shortness of breat h Results for this PANEL ([id number]) MOCCASIN SEWER procedure are in the results section. TROPONIN I STAT 04/28/2020 10:44 AM Shortness of breath R esults for this MOCCASIN SEWER procedure are i n the results section. documented in this encounter Results COVID-19 (ID NOW RAPID TESTING) (04/28/2020 4:41 PM MOCCASIN SEWER) SARS-CoV-2 Rapid ID Not Detected Not Detected [facility] Specimen Swab - NASOPHARYNGEAL SWAB Narrative Performed At [facility] NOW COVID-19 Assay is an isothermal nucleic [facility] acid amplification test intended for the qualitative detection of nucleic acid from SARS-CoV-2 viral RNA in nasopharyngeal (SENIOR RECRUITER) specimens. It is used under Emergency Use Authorization (EUA) by FDA. The limit of detection (LOD) of the assay is 125 Genome Equivalents/mL. A positive result is indicative of the presence of SARS-CoV-2 RNA. Clinical correlation with patient history and other diagnostic information is necessary to determine patient infection status. A negative (Not Detected) result does not preclude SARS-CoV-2 infection. In patients with clinical symptoms and other tests that are consistent with SARS-CoV-2 infection, negative results should be treated as presumptive negative and a new specimen should be tested with alternative PCR molecular test. Invalid: Please collect a new specimen for repeat patient testing if clinically indicated. Performing Organization Address City/State/Zipcode Phone Number [facility] CLIA: [id number] [place] [address] CHEST PULMONARY ANGIOGRAM (04/28/2020 1:49 PM MOCCASIN SEWER) Specimen Impressions Performed At Impression: PACS/VR/DOSE Bilateral upper lobe and to a lesser ext ent right middle lobe and left lower lobe areas of decreased enhancement of the pulmo nary arteries favored to be related to artifact. No well-defin ed filling defects typical of pulmonary emboli are seen. Postoperative changes as described. Left lower lobe pulmonary nodules. Metas tatic disease is not excluded. End of Report. RL: 5500 Narrative Performed At This result has an attachment that is no t available. Ordering Physician: DAKOTA TAYLOR. PACS/VR/DOSE Procedure: CT CHEST PULMONARY ANGIOGRAM Examination pe rformed according to ALARA (As Low as Reasonably Achievable). Three dimensi onal multiplanar maximum intensity projection reformatting was utilized . Comparison: None. History: PE suspected, high pretest prob . Findings: There is good pulmonary arterial opacification with Ho unsfield units on the over 800 in the pulmonary trunk. Of note, there is dec reased opacification in the distal left main pulmonary artery continuing in to the left upper lobe and to a lesser extent in the left lower lobe but with relative better opacification distally. Similar finding is seen in the right upper lobe and right middle lobe with good opacification in the right lower lobe. At the same time, this is not accompanied by a well-defined f illing defect and is therefore thought to be artifactual related to mixing. Mild to moderate bilateral centrilobular emphysema is present. Staple line is noted in the inferior right middle lobe peripherall y. Multiple pulmonary nodules are seen in the left lower lobe measuring up to 9 mm. Metastatic disease cannot be excluded. Clinical correlation recommended. No infiltrates, effusions, or pneumothoraces are seen. Heart size is within normal limits. No pulmonary edema is seen. Aorta mihir l caliber. No lymphadenopathy by CT criteria identified. Limited evaluation of the upper abdomen is unremarkabl e. Partially visualized density within the aorta likely r eflecting aortic stent graft. Right internal jugular Port-A-Cath. Procedure Note [facility], Radiant Results Inft User - 2020 3:35 PM MOCCASIN SEWER Ordering Physician: DAKOTA TAYLOR. Procedure: CT CHEST PULMONARY ANGIOGRAM Examination performed according to ALARA (As Low as Reasonably Achievable). Three dimensional multiplanar maximum intensity projection reformattin g was utilized. Comparison: None. History: PE suspected, high pretest prob . Findings: There is good pulmonary arterial opacifi cation with Hounsfield units on the over 800 in the pulmonary trunk. Of note , there is decreased opacification in the distal left main pulmonary artery continuing into the left upper lobe and to a lesser extent in the left lower lobe but with relative better opacification distally. Similar finding is seen in the right upper lobe and right middle lobe with good opacificatio n in the right lower lobe. At the same time, this is not accompanied by a well-defined filling defect and is therefore thought to be artifactual rela chante to mixing. Mild to moderate bilateral centrilobular emphysema is present. Staple line is noted in the inferior right middle lo be peripherally. Multiple pulmonary nodules are seen in t he left lower lobe measuring up to 9 mm. Metastatic disease cannot be exclu ded. Clinical correlation recommended. No infiltrates, effusions, or pneumothor aces are seen. Heart size is within normal limits. No pulmonary edema is see n. Aorta normal caliber. No lymphadenopathy by CT criteria identifie d. Limited evaluation of the upper abdomen is unremarkable. Partially visualized density within the aorta likely reflecting aortic stent graft. Right internal jugular Port-A-Cath. IMPRESSION Impression: Bilateral upper lobe and to a lesser ext ent right middle lobe and left lower lobe areas of decreased enhancemen t of the pulmonary arteries favored to be related to artifact. No well-defin ed filling defects typical of pulmonary emboli are seen. Postoperative changes as described. Left lower lobe pulmonary nodules. Metas tatic disease is not excluded. End of Report. RL: [id number] Performing Organization Address City/State/Zipcode Phone Number PACS/VR/DOSE TROPONIN I (04/28/2020 10:44 AM MOCCASIN SEWER) Pathologist Sig nature TROPONIN I <0.012 <=0.034 ng/mL [facility] Specimen Blood - VENOUS Narrative Performed At Equal or Less than 0.034 ng/ml---Normal [facility] Note: Cardiac troponin begins to rise 3-4 hours after the onset of ischemia. Repeat in 4-6 hours if the sample was drawn within 3-4 hours of the onset of the symptom and found normal. Between 0.035 and 0.120 ng/mL--- Borderline. Questionable myocardial injury or necros is Note: Serial measurement may be necessary to confirm or exclude the diagnosis of myocardial injury or necrosis; Clinical correlation (symptoms, EKGs, imaging studies, and others) required; Repeat in 4-6 hours if clinically indicated. Equal or Higher than 0.121 ng/mL---Abnormal. Myocardial Injury or Necrosis Likely Biotin has been reported to cause a negative bias, interpret results relative to patient's use of biotin. Performing Organization Address City/State/Zipcode Phone Number [facility] CLIA: [id number] [place] [address] N-TERMINAL PRO-BNP (04/28/2020 10:44 AM MOCCASIN SEWER) Pathologist Sig nature NT-proBNP 270 (H) <=125 pg/mL [facility] Specimen Blood - VENOUS Narrative Performed At [facility] has been reported to cause a negative [facility] bias, interpret results relative to patient's use of biotin. Performing Organization Address City/[facility] Phone Number [facility] CLIA: [id number] [place] [address] LABORATORY [address] [facility] COMP. METABOLIC PANEL ([id number]) (04/28/2020 10:44 AM MOCCASIN SEWER) NA 138 135 - 145 [facility] mmol/L [facility] K 4.1 3.5 - 5.0 [facility] mmol/L [facility] CL 106 98 - 108 mmol/L [facility] CO2 TOTAL 18 (L) 23 - 31 mmol/L [facility] AGAP 14 2 - 16 [facility] BUN 17 7 - 23 mg/dL [facility] GLUCOSE 125 (H) 70 - 110 mg/dL [facility] CREATININE 1.76 (H) 0.60 - 1.25 [facility] mg/dL [facility] TOTAL BILI 0.5 0.1 - 1.1 mg/dL [facility] CALCIUM 8.9 8.6 - 10.6 [facility] mg/dL [facility] T PROTEIN 7.2 6.3 - 8.2 g/dL [facility] ALBUMIN 3.7 3.5 - 5.0 g/dL [facility] ALK PHOS 209 (H) 34 - 122 U/L [facility] ALTv 18 5 - 50 U/L [facility] AST(SGOT) 54 (H) 13 - 40 U/L [facility] eGFR Calculation 39.2 mL/min/1.73m2 [facility] [place]) eGFR Calculation 47.5 mL/min/1.73m2 [facility] () [facility] Specimen Blood - VENOUS Narrative Performed At Association of Glomerular Filtration Rate (GFR) [facility] and Staging of Kidney Disease* + + +- + | GFR (mL/min/1.73 m2) | With Kidney Damage | Without Kidney Damage + + +- + | >90 | Stage one | Normal + + +- + | 60-89 | Stage two | Decreased GFR + + +- + | 30-59 | Stage three | Stage three + + +- + | 15-29 | Stage four | Stage four + + +- + | <15 (or dialysis) | Stage five | Stage five + + +- + *Each stage assumes the associated GFR level has been in effect for at least three months. Stages 1 to 5, with or without kidney disease, indicate chronic kidney disease. Notes: Determination of stages one and two (with eGFR >59mL/min/1.73 m2) requires estimation of kidney damage for at least three months as defined by structural or functional abnormalities of the kidney, manifested by either: Pathological abnormalities or Markers of kidney damage (including abnormalities in the composition of the blood or urine or abnormalities in imaging tests). Performing Organization Address City/State/Zipcode Phone Number [facility] CLIA: [id number] [place] [address] CBC WITH DIFF (04/28/2020 10:44 AM MOCCASIN SEWER) Pathologist Sig nature WBC 13.08 (H) 4.20 - 10.70 [facility] 10*3/L [facility] RBC 2.84 (L) 4.26 - 5.52 [facility] 10*6/L [facility] HGB 8.1 (L) 12.2 - 16.4 [facility] g/dL [facility] HCT 25.0 (L) 38.4 - 49.3 % [facility] MCV 88.0 81.7 - 95.6 fL [facility] MCH 28.5 26.1 - 32.7 pg [facility] MCHC 32.4 31.2 - 35.0 [facility] g/dL [facility] RDW-SD 45.2 38.5 - 51.6 fL [facility] RDW-CV 14.1 12.1 - 15.4 % [facility] PLT 559 (H) 150 - 328 [facility] 10*3/L H[facility]PITAL [facility] MPV 8.8 (L) 9.8 - 13.0 fL [facility] NRBC/100 WBC 0.0 0.0 - 10.0 /100 [facility] WBCs [facility] NRBC x10^3 <0.01 10*3/L [facility] GRAN MAT (NEUT) % 78.1 % [facility] IMM GRAN % 0.80 % [facility] LYMPH % 11.2 % [facility] MONO % 8.2 % [facility] EOS % 1.2 % [facility] BASO % 0.5 % [facility] GRAN MAT x10^3(ANC) 10.21 (H) 1.99 - 6.95 [facility] 10*3/uL [facility] IMM GRAN x10^3 0.10 (H) 0.00 - 0.06 [facility] 10*3/uL [facility] LYMPH x10^3 1.47 1.09 - 3.23 [facility] 10*3/uL [facility] MONO x10^3 1.07 (H) 0.36 - 1.02 [facility] 10*3/uL [facility] EOS x10^3 0.16 0.06 - 0.53 [facility] 10*3/uL [facility] BASO x10^3 0.07 0.01 - 0.09 [facility] 103/uL [facility] Specimen Blood - VENOUS Performing Organization Address City/State/Zipcode Phone Number [facility] CLIA: [id number] [place] [address] documented in this encounter Visit Diagnoses Diagnosis Shortness of breath - Primary documented in this encounter Administered Medications Medication Order MAR Action Action Date Dose Rate Site iohexol (OMNIPAQUE 350 BULK-100 Given 04/28/2020 1:42 PM MOCCASIN SEWER 10 0 mL mL) injection 100 mL 100 mL, Intravenous, ONCE, 1 dose, 04/28/20 at 1400, Routine documented in this encounter Additional Health Concerns Infection Onset Date Last Indicated Resolved Time COVID-19 Rule Out 04/28/2020 04/28/2020 04/28/2020 5: 08 PM MOCCASIN SEWER documented as of this encounter Insurance Payer Benefit Plan / Subscriber ID Effective Dates Phone Addre ss Type Group MEDICARE MEDICARE PART [id number] 2014-[place]ile [phone] [address] Medicare A t 2 [id number] [place] [id number] documented as of this encounter"
[2020-04-30] MEDS ORDERED: VITAMIN K (ADULT) 10 MG/ML ONE (11:59)
[2020-04-30 12:08] LABS: Arterial Blood Carboxyhemoglob 1.5 % (0-1.5); Blood Gas Oxyhemoglobin 97.6 % (94-97); Blood O2 Saturation 99.8 % (92-98.5)
[2020-04-30 12:23] LABS: Absolute Lymphocytes (CBC) 0.9 K/uL (0.7-4.9); Basophils % 0.5 % (0-1.3); Hematocrit 14.8 % (39.6-49.0); Lymphocytes % 6.5 % (15.3-44.8); MPV 6.9 fL (7.6-11.3); RBC Red Blood Cell Count 1.72 M/uL (4.33-5.43)
[2020-04-30] MEDS ORDERED: FENTANYL CITR 100 MCG/2 ML ONE (12:33)
[2020-04-30] MEDS ORDERED: ONDANSETRON 4 MG/2 ML VIAL ONE (12:33)
[2020-04-30 12:44] LABS: ALT/SGPT 13 U/L (12-78); AST/SGOT 59 U/L (15-37); Alkaline Phosphatase 275 U/L (45-117); BUN Blood Urea Nitrogen 35 mg/dL (7-18); Bicarbonate 16 mmol/L (21-32); Bilirubin Direct < 0.1 mg/dL (0-0.2); Bilirubin Total 0.3 mg/dL (0.2-1.0); Glucose Level 180 mg/dL (74-106); Magnesium 2.2 mg/dL (1.8-2.4); NT PRO-BNP 476 pg/mL (<125); Potassium 4.5 mmol/L (3.5-5.1); Sodium Level 139 mmol/L (136-145); Troponin (Emerg Dept Use Only) < 0.02 ng/mL (0.0-0.045)
--- NOTE | 2020-04-30 13:03 | RAD REPORT ---
EXAM DESCRIPTION: RAD - Chest Single View - 04/30/2020 12:51 pm CLINICAL HISTORY: DYSPNEA Chest pain. COMPARISON: Chest Single View dated 06/05/2018; Chest Single View dated 06/03/2018; Chest Single View d ated 11/15/2017; Chest Single View dated 03/23/2016; Abdomen Pelvis Wo Contrast dated 10/15/2017; Marcell t Perfusion VQ Scan dated 03/01/2016; CT ABDOMEN PELVIS WO CONTRAST dated 10/18/2012 FINDINGS: Portable technique limits examination quality. The lungs are grossly clear. Mild chronic thickening the right costophrenic angle. The heart is mihir l in size. Left-sided port catheter its tip the SVC. IMPRESSION: No acute intrathoracic process suspected. Stable chest since 06/05/2018.
[2020-04-30] MEDS ORDERED: NA CHLORIDE 0.9% 500 ML ONE (13:36)
[2020-04-30 13:39] LABS: Blood Morphology Comment NOTED (NOT SEEN); Platelet Estimate INCR; Platelets, Giant FEW; White Blood Cell Scan OK (OK)
[2020-04-30 13:40] LABS: Anisocytosis 1+; Hypochromasia 2+; Polychromasia 1+
[2020-04-30] MEDS ORDERED: DIPHENHYDRAMINE 50 MG/ML VIAL ONE (14:00)
[2020-04-30] MEDS ORDERED: ACETAMINOPHEN 325 MG TABLET ONE (14:00)
[2020-04-30 14:03] LABS: Protime INR ND
--- NOTE | 2020-04-30 17:08 | ER ---
Nurse's Notes [facility] Name: Jaswinder Roa Age: 64 yrs Sex: Male : 1955 Arrival Date: 04/30/2020 Time: 11:18 Bed 14 Private MD: Uriel Langford S Diagnosis: Coumadin Toxicity;Gastrointestinal hemorrhage, unspecified;Acute Anemia Presentation: 04/30 11:20 Chief complaint: EMS states: pt from home called for sob and weakness from being so tw2 short of breath, he was using accessory muscles when we arrived, initially he was 60's RA, we got him up to the 80's on NRB, tachycardic on monitor, also has a nose bleed and states he has LIVER and COLON CANCER with rectal bleeding was seen recently for lungs issues at [facility]. Coronavirus screen: At this time, the client does not indicate any symptoms associated with coronavirus-19. Ebola Screen: Patient denies travel to an Ebola-affected area in the 21 days before illness onset. Initial Sepsis Screen: Does the patient meet any 2 criteria? RR > 20 per min. HR > 90 bpm. Yes Does the patient have a suspected source of infection? No. Patient's initial sepsis screen is negative. Risk Assessment: Do you want to hurt yourself or someone else? Patient reports no desire to harm self or others. Note provider at bedside. Onset of symptoms was April 30, 2020. 11:20 Method Of Arrival: EMS: [facility] tw2 11:20 Acuity: CHICHI 2 tw2 11:29 Note provider at bedside at this time. tw2 Triage Assessment: 11:20 General: Appears uncomfortable, Behavior is cooperative, anxious. Pain: Complains of tw2 pain in RIGHT hip. Musculoskeletal: Amputation of RIGHT BKA. 11:20 EENT: No signs and/or symptoms were reported regarding the EENT system. Neuro: Level of tw2 Consciousness is awake, alert, obeys commands, Oriented to person, place, situation. Cardiovascular: Capillary refill is > 3 seconds. Respiratory: Airway is patent Respiratory effort is even, unlabored, Respiratory pattern is tachypnea. GI: Reports bloody stool. Derm: Skin is dry, Skin is jaundiced, pale. Historical: - Allergies: 11:29 tramadol; tw2 - Home Meds: 11:29 Warfarin Oral [Active]; Plavix 75 mg Oral tab 1 tab once daily [Active]; lisinopril 5 tw2 mg Oral tab 1 tab once daily [Active]; aspirin 81 mg Oral chew 1 tab once daily [Active]; - PMHx: 11:29 CHEMO; DVT; Hypertension; liver cancer; pulmonary fibrosis; rectal cancer with tw2 metastasis; - PSHx: 11:29 right foot sx; RIGHT BKA; tw2 - Immunization history:: Adult Immunizations. - Social history:: Smoking status: . Screenin:24 Abuse screen: Denies threats or abuse. Denies injuries from another. Nutritional ph screening: No deficits noted. Tuberculosis screening: No symptoms or risk factors identified. Fall Risk None identified. Assessment: 12:00 Reassessment: Patient appears in no apparent distress at this time. Patient and/or tw2 family updated on plan of care and expected duration. Pain level reassessed. Unable to obtain peripheral IV access, ERP at bedside to place central line. When underwear and brief removed blood noted, pt reports bloody stools and nose bleeds since yesterday. 12:41 Reassessment: xray at bedside at this time. tw2 13:27 Reassessment: pt soiled brief at this time, pt cleaned and placed in clean brief. tw2 14:05 Reassessment: SEE BLOOD TRANSFUSION RECORD SHEET IN PTS CHART. tw2 14:21 Reassessment: Patient appears in no apparent distress at this time. Patient and/or tw2 family updated on plan of care and expected duration. Pain level reassessed. 15:05 Reassessment: Patient appears in no apparent distress at this time. Patient and/or tw2 family updated on plan of care and expected duration. Pain level reassessed. 16:07 Reassessment: Patient appears in no apparent distress at this time. Patient and/or tw2 family updated on plan of care and expected duration. Pain level reassessed. 17:14 Reassessment: Patient appears in no apparent distress at this time. Patient and/or tw2 family updated on plan of care and expected duration. Pain level reassessed. order for FFP, request sent to lab at this time. 18:15 Reassessment: Patient appears in no apparent distress at this time. pt asking for tw2 "something to help my back side feel better". 19:00 Reassessment: SEE TRANSFUSION RECORD SHEET IN PTS CHART FOR FFP. tw2 19:18 Reassessment: Patient appears in no apparent distress at this time. Patient and/or mg2 family updated on plan of care and expected duration. Pain level reassessed. FFP ongoing. 21:18 Reassessment: Patient appears in no apparent distress at this time. Patient and/or mg2 family updated on plan of care and expected duration. Pain level reassessed. 22:00 Reassessment: Patient appears in no apparent distress at this time. Patient and/or mg2 family updated on plan of care and expected duration. Pain level reassessed. Patient is alert, oriented x 3, equal unlabored respirations, skin warm/dry/pink. applied air mattress on the bed. 05/01 00:36 Reassessment: Patient appears in no apparent distress at this time. Patient and/or mg2 family updated on plan of care and expected duration. Pain level reassessed. Patient is alert, oriented x 3, equal unlabored respirations, skin warm/dry/pink. 01:25 Reassessment: Patient appears in no apparent distress at this time. Patient and/or mg2 family updated on plan of care and expected duration. Pain level reassessed. 02:43 Reassessment: patient sleeping. mg2 04:04 Reassessment: Patient appears in no apparent distress at this time. mg2 04:33 Reassessment: Pt screaming at staff, states "I am ready to get the hell out of here. I ea hate this [facility] and I hate this [facility]!" It was explained to pt that we are awaiting on accepting facility, air mattress placed on pt's bed, recliner offered pt states " I don't care what you do I am going to rip my lines out and walk out". Pt assisted to bed, verbalized the understanding of his current medical situation, states "I am going to try but I can't sit here in this shitty hospital being bored for too much longer". 04:40 Reassessment: Patient appears in no apparent distress at this time. Patient is alert, rr5 oriented x 3, equal unlabored respirations, skin warm/dry/pink. received from trauma 8 awake alert oriented no complaints made. a case of Coumadin toxicity for transfer waiting for bed available in [facility]. on oxygen at 4 liters via nasal cannula,with femoral catheter on left, right leg amputated noted. 05:35 Reassessment: Patient appears in no apparent distress at this time. Patient and/or rr5 family updated on plan of care and expected duration. Pain level reassessed. Patient is alert, oriented x 3, equal unlabored respirations, skin warm/dry/pink. no complaints made watching TV. 06:30 Reassessment: Patient appears in no apparent distress at this time. Patient is alert, rr5 oriented x 3, equal unlabored respirations, skin warm/dry/pink. positive stool after care done. 07:00 Reassessment: Patient is alert, oriented x 3, equal unlabored respirations, skin aa5 warm/dry/pink. Updated pt on POC for transfer to another facility. Pt currently on [facility] waiting list. . 08:00 Reassessment: Pt resting in bed with eyes closed. . aa5 09:00 Reassessment: Patient is alert, oriented x 3, equal unlabored respirations, skin aa5 warm/dry/pink. Pt sitting up in bed watching TV. Pt appears comfortable. . 09:20 Reassessment: Spoke to [facility] transfer center and they stated it will be a long wait aa5 time for pt to get a room at their facility. Pt was notified and Dr. Allan was notified. . 11:00 Reassessment: Dr. Allan and BERENICE Sorto currently attempting to expedite aa5 transfer to another facility. Pt notified of several attempts. Pt currently sitting up in bed watching TV. . 12:00 Reassessment: Pt resting in bed with eyes closed, respirations even and unlabored. . aa5 13:00 Reassessment: Pt cleaned of black stool, clean brief applied. . aa5 14:38 Reassessment: Report given to [facility] in [place], [place]. aa5 Awaiting EMS for transfer, pt notified of wait time. . 14:38 Reassessment: Patient is alert, oriented x 3, equal unlabored respirations, skin aa5 warm/dry/pink. 15:30 Reassessment: Patient is alert, oriented x 3, equal unlabored respirations, skin aa5 warm/dry/pink. Vital Signs: 04/30 11:20 BP 77 / 61; Pulse 94; Resp 30; Temp 97.4; Pulse Ox 85% on Non-rebreather mask; Weight tw2 86.18 kg (R); Height 6 ft. 2 in. (187.96 cm); Pain 10/10; 12:24 BP 97 / 64; Pulse 92; Resp 28; Pulse Ox 94% on 2 lpm NC; ph 13:27 BP 93 / 58; Pulse 87; Resp 21; Pulse Ox 100% on 4 lpm NC; tw2 14:22 BP 83 / 59; Pulse 85; Resp 22; Pulse Ox 100% on 4 lpm NC; ph 14:22 ph 15:05 BP 88 / 52; Pulse 86; Resp 20; Temp 97.6(TE); Pulse Ox 100% on 4 lpm NC; tw2 16:03 BP 90 / 46; Pulse 91; Resp 20; Temp 97.6(TE); Pulse Ox 100% on 4 lpm NC; tw2 16:20 BP 85 / 54; Pulse 86; Resp 19; Pulse Ox 98% on 2 lpm NC; tw2 16:40 BP 84 / 49; Pulse 89; Resp 19; Pulse Ox 99% on 2 lpm NC; tw2 17:00 BP 79 / 41; Pulse 83; Resp 19; Pulse Ox 97% on 2 lpm NC; tw2 17:20 BP 114 / 52; Pulse 91; Resp 21; Pulse Ox 100% on 4 lpm NC; tw2 17:40 BP 92 / 58; Pulse 88; Resp 22; Pulse Ox 100% on 4 lpm NC; tw2 18:00 BP 63 / 53; Pulse 95; Resp 19; Pulse Ox 100% on 4 lpm NC; tw2 18:31 BP 81 / 62; Pulse 88; Resp 22; Pulse Ox 100% on 4 lpm NC; tw2 19:00 BP 75 / 46; Pulse 90; Resp 24; Pulse Ox 100% on 4 lpm NC; tw2 20:00 BP 97 / 68; Pulse 89; Resp 18; Temp 97; Pulse Ox 100% on 4 lpm NC; mg2 21:00 BP 92 / 64; Pulse 92; Resp 18; Temp 97; Pulse Ox 100% on 4 lpm NC; mg2 22:30 BP 102 / 67; Pulse 88; Resp 18; Temp 97; Pulse Ox 100% on 3 lpm NC; mg2 23:30 BP 102 / 62; Pulse 88; Resp 18; Temp 98; Pulse Ox 100% on 3 lpm NC; mg2 05/01 01:30 BP 94 / 58; Pulse 84; Resp 18; Pulse Ox 100% on 3 lpm NC; mg2 02:44 BP 98 / 63; Pulse 83; Resp 18; Pulse Ox 100% on 3 lpm NC; mg2 04:03 BP 108 / 71; Pulse 83; Resp 18; Pulse Ox 100% on 3 lpm NC; mg2 05:30 BP 103 / 83; Pulse 74; Resp 19; Pulse Ox 97% on 4 lpm NC; rr5 06:30 BP 118 / 71; Pulse 85; Resp 20; Pulse Ox 97% on 4 lpm NC; rr5 07:30 BP 118 / 68; Pulse 90; Resp 16 S; Pulse Ox 98% on 4 lpm NC; aa5 09:30 BP 117 / 75; Pulse 85; Resp 18 S; Temp 98.6(O); Pulse Ox 100% on 4 lpm NC; Pain 0/10; aa5 11:00 BP 110 / 68; Pulse 84; Resp 18 S; Pulse Ox 98% on 2 lpm NC; aa5 13:00 BP 108 / 60; Pulse 88; Resp 16 S; Temp 98.0(O); Pulse Ox 99% on 2 lpm NC; aa5 01 11:20 Body Mass Index 24.39 (86.18 kg, 187.96 cm) tw2 04/30 11:20 pt states "10/10 on my RIGHT hip area", provider notifed tw2 14:22 SEE TRANSFUSION FLOWSHEET FOR ADDITIONAL VITALS ph 16:20 provider notified of bp, no further orders at this time. tw2 17:00 provider notified of BP and at bedside evaluated pt at this time tw2 18:00 provider at bedside at this time, PRBC's ordered, blood bank Bert Patterson notified. tw2 ED Course: 11:18 Patient arrived in ED. ph 11:19 Manuel Mesa PA is PHCP. jr8 11:19 Jonathan Allan MD is Attending Physician. jr8 11:22 Tereza Hdez RN is Primary Nurse. tw2 11:28 Triage completed. tw2 11:29 Arm band placed on. tw2 11:50 Missed attempt(s): 20 gauge in right antecubital area. Bleeding controlled, band aid ph applied, catheter tip intact. Missed attempt(s): 22 gauge in right antecubital area. Bleeding controlled, band aid applied, catheter tip intact. 12:00 Assisted provider with central line placement. Set up central line tray. Triple lumen ph line placed in left femoral. Line placed by Manuel NG Placement verified by blood return, Dressed with Tape, Tegaderm, Blood was collected. Patient tolerated well. Before procedure, did Practitioner(s) obtain informed consent? Yes. Patient \\T\\ family education about procedure, CLABSI prevention and S/S of infection? Yes. Time-out/Briefing performed prior to start of procedure? Yes. Was handwashing/sanitizing done immediately prior to procedure? Yes. Was patient positioned to in a way to prevent air embolism? Yes. Was procedure site sterilized? Yes, with chlorhexidine. Was the site allowed to dry? Yes. Was local anesthetic and/or sedation utilized? Yes. During the procedure, did the Practitioner(s) maintain a sterile field? Yes. Were unused ports clamped during insertion? Yes. Was a 2nd qualified MD obtained after 3 unsuccessful insertion attempts? No. Was blood aspirated from each lumen? Yes. After the procedure, did the Practitioner(s) clean the site and apply a sterile dressing? Yes. Patient transferred, IV remains in place. 12:24 COVID swab sent to lab. em1 12:25 Patient has correct armband on for positive identification. Placed in gown. Bed in low ph position. Call light in reach. Side rails up X2. director broadcast on. Pulse ox on. NIBP on. Door closed. Noise minimized. Warm blanket given. 12:51 XRAY Chest (1 view) In Process Unspecified. EDMS 13:57 contacted by Sangita at [facility], no icu bed available at this time,pt bd will be put on the board, icu bed will be given when one becomes available. 17:13 initiated transfer to [facility]. bd 17:27 pt denied due to no capacity. per Alec Delgado. bd 18:[address] Sangita from [facility], was informed that we are still on the bd list for a ICU bed when one becomes available. 19:00 Report given to ELENA Grier. tw2 19:26 Uriel Langford MD is Private Physician. sg 22:00 Attending Physician role handed off by Jonathan Allan MD [facility] 22:00 Elias Yusuf MD is Attending Physician. [place] 23:15 called [facility] spoke to Radha to see if she can help find an ICU bed for our patient. mw2 05/01 03:27 called [facility] Transfer Center spoke to Kesha to check on bed status. She stated "the mw2 patient is still on the board, we don't have any beds.". 06:24 Notified ED physician of a critical lab result(s). INR 4.58. sg 07:00 Report received from ELENA Desir. aa5 10:21 1005 obey from transfer called to speak with nurse about pt pt/inr and could he kj1 be downgraded to tele. 11:21 Hemoglobin Sent. dh3 11:21 BMP Sent. dh3 13:48 Cleaned of incontinence. jp3 15:30 Patient transferred, IV remains in place. aa5 Administered Medications: 04/30 11:55 Drug: Vitamin K1 10 mg Route: Sub-Q; Site: right lower abdomen; ph 12:41 Follow up: Response: No adverse reaction tw2 12:41 Drug: Zofran (Ondansetron) 4 mg Route: IVP; Site: left femoral; ph 13:00 Follow up: Response: No adverse reaction tw2 12:42 Drug: fentaNYL (PF) 25 mcg Route: IVP; Site: left femoral; ph 13:00 Follow up: Response: No adverse reaction; Pain is decreased; RASS: Alert and Calm (0) tw2 13:45 Drug: Benadryl 12.5 mg Route: IVP; Site: left femoral; tw2 14:00 Follow up: Response: No adverse reaction tw2 13:45 Drug: Tylenol 650 mg Route: PO; tw2 14:00 Follow up: Response: No adverse reaction tw2 05/01 00:11 Not Given (Patient Refused): Zofran (Ondansetron) 4 mg IVP once; over 2 minutes mg2 Outcome: 04/30 17:07 ER care complete, transfer ordered by . jr8 05/01 15:30 Transferred by ground EMS Transfer form completed. X-rays sent w/ patient. Note: aa5 Transferred to [facility] [place], [place]. Reports given to [facility]. Condition: stable Instructed on the need for transfer, Demonstrated understanding of instructions. 15:42 Patient left the ED. aa5 Signatures: Dispatcher [employer] EDMS Dali Daniels Steven, Elias Lr RN, MD MD cha Martinez, Eric em1 Jennifer Loza RN RN aa5 Manuel Mesa PA PA jr8 Susannah Lynn RN RN ph Lemuel, Tereza, RN RN tw2 Lorie Lu 3 Marybeth Schneider RN RN Cristobal Adamson 2 Timothy Gabriel, RN RN mg2 Bobby Bullock 3 Thang Forte RN RN rr5 Chelsea Colon kj1 Corrections: (The following items were deleted from the chart) 04/30 12:26 12:00 Reassessment: Patient appears in no apparent distress at this time. Patient ph and/or family updated on plan of care and expected duration. Pain level reassessed. Patient is alert, oriented x 3, equal unlabored respirations, skin warm/dry/pink. Unable to obtain peripheral IV access, ERP at bedside to place central line ph 16:05 12:00 Reassessment: Patient appears in no apparent distress at this time. Patient tw2 and/or family updated on plan of care and expected duration. Pain level reassessed. Patient is alert, oriented x 3, equal unlabored respirations, skin warm/dry/pink. Unable to obtain peripheral IV access, ERP at bedside to place central line. When underwear and brief removed blood noted, pt reports bloody stools and nose bleeds since yesterday ph 16:05 14:21 Reassessment: Patient appears in no apparent distress at this time. Patient tw2 and/or family updated on plan of care and expected duration. Pain level reassessed. Patient is alert, oriented x 3, equal unlabored respirations, skin warm/dry/pink. ph 19:42 19:09 Reassessment: SEE TRANSFUSION RECORD SHEET IN PTS CHART FOR FFP tw2 tw2 05/01 20:29 11:00 BP 110 / 68; Pulse 84bpm; Resp 18bpm; Spontaneous; Pulse Ox 98% RA; aa5 aa5
--- NOTE | 2020-04-30 17:08 | EDPHYS ---
Physician Documentation [facility] Name: Jaswinder Roa Age: 64 yrs Sex: Male : 1955 Arrival Date: 04/30/2020 Time: 11:18 Bed 14 Private MD: Uriel Langford S ED Physician Elias Yusuf HPI: 04/30 14:30 This 64 yrs old Male presents to ER via EMS with complaints of epistaxis, jr8 shortness of breath. 14:30 The patient has shortness of breath at rest. Onset: The symptoms/episode began/occurred jr8 gradually, 1 day(s) ago. Duration: The symptoms are continuous. The patient's shortness of breath is aggravated by light activity. Associated signs and symptoms: Pertinent positives: epistaxis and lower GI bleeding . Severity of symptoms: At their worst the symptoms were moderate in the emergency department the symptoms are unchanged. It is unknown whether or not the patient has had similar symptoms in the past. The patient has not recently seen a physician. Patient stated that he was seen in [place] a few days ago for shortness of breath. Was diagnosed with unknown pulmonary condition. COVID negative at that time. Came to ED today for worsening of shortness of breath and now having GI bleeding and epistaxis. Stated that he is on Coumadin as well daily for clotting history . Historical: - Allergies: 11:29 tramadol; tw2 - Home Meds: 11:29 Warfarin Oral [Active]; Plavix 75 mg Oral tab 1 tab once daily [Active]; lisinopril 5 tw2 mg Oral tab 1 tab once daily [Active]; aspirin 81 mg Oral chew 1 tab once daily [Active]; - PMHx: 11:29 CHEMO; DVT; Hypertension; liver cancer; pulmonary fibrosis; rectal cancer with tw2 metastasis; - PSHx: 11:29 right foot sx; RIGHT BKA; tw2 - Immunization history:: Adult Immunizations. - Social history:: Smoking status: . ROS: 14:30 Eyes: Negative for injury, pain, redness, and discharge, ENT: Negative for injury, jr8 pain, and discharge, Neck: Negative for injury, pain, and swelling, Cardiovascular: Negative for chest pain, palpitations, and edema, Back: Negative for injury and pain, MS/Extremity: Negative for injury and deformity, Skin: Negative for injury, rash, and discoloration, Neuro: Negative for headache, weakness, numbness, tingling, and seizure. 14:30 Respiratory: Positive for dyspnea on exertion, shortness of breath. 14:30 Abdomen/GI: Positive for black/tarry stool, rectal bleeding, Negative for abdominal pain. Exam: 14:30 Eyes: Pupils equal round and reactive to light, extra-ocular motions intact. Lids and jr8 lashes normal. Conjunctiva and sclera are non-icteric and not injected. Cornea within normal limits. Periorbital areas with no swelling, redness, or edema. ENT: Nares patent. No nasal discharge, no septal abnormalities noted. Tympanic membranes are normal and external auditory canals are clear. Oropharynx with no redness, swelling, or masses, exudates, or evidence of obstruction, uvula midline. Mucous membranes moist. Neck: Trachea midline, no thyromegaly or masses palpated, and no cervical lymphadenopathy. Supple, full range of motion without nuchal rigidity, or vertebral point tenderness. No Meningismus. Cardiovascular: Regular rate and rhythm with a normal S1 and S2. No gallops, murmurs, or rubs. Normal PMI, no JVD. No pulse deficits. Respiratory: Lungs have equal breath sounds bilaterally, clear to auscultation and percussion. No rales, rhonchi or wheezes noted. Tachypneic Back: No spinal tenderness. No costovertebral tenderness. Full range of motion. MS/ Extremity: Pulses equal, no cyanosis. Neurovascular intact. Full, normal range of motion. Neuro: Awake and alert, GCS 15, oriented to person, place, time, and situation. Cranial nerves II-XII grossly intact. Motor strength 5/5 in all extremities. Sensory grossly intact. 14:30 Abdomen/GI: Inspection: abdomen appears normal, Bowel sounds: active, all quadrants, Palpation: abdomen is soft and non-tender, in all quadrants, Rectal exam: rectal tone normal, Stool: loose, maroon, mass, is not appreciated, swelling, is not appreciated, tenderness, is not appreciated, the exam is chaperoned by the nurse, Liver: tenderness, is not appreciated. 14:30 Skin: bruising noted to arms and legs in multiple places . Vital Signs: 11:20 BP 77 / 61; Pulse 94; Resp 30; Temp 97.4; Pulse Ox 85% on Non-rebreather mask; Weight tw2 86.18 kg (R); Height 6 ft. 2 in. (187.96 cm); Pain 10/10; 12:24 BP 97 / 64; Pulse 92; Resp 28; Pulse Ox 94% on 2 lpm NC; ph 13:27 BP 93 / 58; Pulse 87; Resp 21; Pulse Ox 100% on 4 lpm NC; tw2 14:22 BP 83 / 59; Pulse 85; Resp 22; Pulse Ox 100% on 4 lpm NC; ph 14:22 ph 15:05 BP 88 / 52; Pulse 86; Resp 20; Temp 97.6(TE); Pulse Ox 100% on 4 lpm NC; tw2 16:03 BP 90 / 46; Pulse 91; Resp 20; Temp 97.6(TE); Pulse Ox 100% on 4 lpm NC; tw2 16:20 BP 85 / 54; Pulse 86; Resp 19; Pulse Ox 98% on 2 lpm NC; tw2 16:40 BP 84 / 49; Pulse 89; Resp 19; Pulse Ox 99% on 2 lpm NC; tw2 17:00 BP 79 / 41; Pulse 83; Resp 19; Pulse Ox 97% on 2 lpm NC; tw2 17:20 BP 114 / 52; Pulse 91; Resp 21; Pulse Ox 100% on 4 lpm NC; tw2 17:40 BP 92 / 58; Pulse 88; Resp 22; Pulse Ox 100% on 4 lpm NC; tw2 18:00 BP 63 / 53; Pulse 95; Resp 19; Pulse Ox 100% on 4 lpm NC; tw2 18:31 BP 81 / 62; Pulse 88; Resp 22; Pulse Ox 100% on 4 lpm NC; tw2 19:00 BP 75 / 46; Pulse 90; Resp 24; Pulse Ox 100% on 4 lpm NC; tw2 20:00 BP 97 / 68; Pulse 89; Resp 18; Temp 97; Pulse Ox 100% on 4 lpm NC; mg2 21:00 BP 92 / 64; Pulse 92; Resp 18; Temp 97; Pulse Ox 100% on 4 lpm NC; mg2 22:30 BP 102 / 67; Pulse 88; Resp 18; Temp 97; Pulse Ox 100% on 3 lpm NC; mg2 23:30 BP 102 / 62; Pulse 88; Resp 18; Temp 98; Pulse Ox 100% on 3 lpm NC; mg2 05/01 01:30 BP 94 / 58; Pulse 84; Resp 18; Pulse Ox 100% on 3 lpm NC; mg2 02:44 BP 98 / 63; Pulse 83; Resp 18; Pulse Ox 100% on 3 lpm NC; mg2 04:03 BP 108 / 71; Pulse 83; Resp 18; Pulse Ox 100% on 3 lpm NC; mg2 05:30 BP 103 / 83; Pulse 74; Resp 19; Pulse Ox 97% on 4 lpm NC; rr5 06:30 BP 118 / 71; Pulse 85; Resp 20; Pulse Ox 97% on 4 lpm NC; rr5 07:30 BP 118 / 68; Pulse 90; Resp 16 S; Pulse Ox 98% on 4 lpm NC; aa5 09:30 BP 117 / 75; Pulse 85; Resp 18 S; Temp 98.6(O); Pulse Ox 100% on 4 lpm NC; Pain 0/10; aa5 11:00 BP 110 / 68; Pulse 84; Resp 18 S; Pulse Ox 98% on 2 lpm NC; aa5 13:00 BP 108 / 60; Pulse 88; Resp 16 S; Temp 98.0(O); Pulse Ox 99% on 2 lpm NC; aa5 04/30 11:20 Body Mass Index 24.39 (86.18 kg, 187.96 cm) tw2 04/30 11:20 pt states "10/10 on my RIGHT hip area", provider notifed tw2 14:22 SEE TRANSFUSION FLOWSHEET FOR ADDITIONAL VITALS ph 16:20 provider notified of bp, no further orders at this time. tw2 17:00 provider notified of BP and at bedside evaluated pt at this time tw2 18:00 provider at bedside at this time, PRBC's ordered, blood bank [facility] notified. tw2 Procedures: 14:41 Central Line: the site was prepped with Betadine, in sterile fashion, a triple lumen jr8 catheter was inserted, in the left femoral vein, in 1 attempts. placement was verified, by blood return, the site was dressed with Tegaderm, using sterile technique, the patient tolerated the procedure, well. MDM: 11:19 Patient medically screened. [facility] 14:46 Data reviewed: vital signs, nurses notes, lab test result(s), EKG, radiologic studies, jr8 plain films. Data interpreted: Pulse oximetry: on room air is 85 %. Interpretation: hypoxia. Counseling: I had a detailed discussion with the patient and/or guardian regarding: the historical points, exam findings, and any diagnostic results supporting the discharge/admit diagnosis, lab results, radiology results, the need to transfer to another facility, [facility] does not immediately have the required specialist. ED course: At this time we are waiting on acceptance from [facility] for ICU bed . 04/30 11:19 Order name: Basic Metabolic Panel; Complete Time: 13:18 [facility] 04/30 11:19 Order name: CBC with Diff; Complete Time: 14:43 [facility] 04/30 11:19 Order name: LFT's; Complete Time: 13:18 8 04/30 11:19 Order name: Magnesium; Complete Time: 13:18 [facility] 04/30 11:19 Order name: NT PRO-BNP; Complete Time: 13:18 [facility] 04/30 11:19 Order name: PT-INR; Complete Time: 14:43 8 04/30 11:19 Order name: Troponin (emerg Dept Use Only); Complete Time: 13:18 8 04/30 11:25 Order name: TS jr 04/30 11:30 Order name: Bb Add On bd 04/30 11:44 Order name: ABG; Complete Time: 12:37 bd 04/30 12:29 Order name: Packed RBC Leukored EDAL 04/30 13:39 Order name: CBC Smear Scan; Complete Time: 14:43 [facility] 04/30 11:19 Order name: XRAY Chest (1 view); Complete Time: 13:18 jr8 04/30 14:16 Order name: SARS-COV-2 RT PCR; Complete Time: 14:43 EDMS 04/30 17:09 Order name: Bb Add On bd 04/30 17:14 Order name: Fresh Frozen Plasma EDAL 04/30 18:07 Order name: Hematocrit; Complete Time: 18:51 tw2 04/30 18:07 Order name: Hemoglobin; Complete Time: 18:51 tw2 04/30 18:29 Order name: Packed RBCs (Additional Unit) EDAL 05/01 04:30 Order name: Hemoglobin; Complete Time: 09:12 mg2 05/01 04:30 Order name: Hematocrit; Complete Time: 09:12 mg2 05/01 04:30 Order name: PT-INR; Complete Time: 09:12 mg2 05/01 10:59 Order name: BMP; Complete Time: 11:47 jr8 05/01 10:59 Order name: Hemoglobin; Complete Time: 11:47 jr8 04/30 11:19 Order name: EKG; Complete Time: 11:20 jr8 04/30 11:19 Order name: Cardiac monitoring; Complete Time: 11:42 jr8 04/30 11:19 Order name: EKG - Nurse/Tech; Complete Time: 11:49 jr8 04/30 11:19 Order name: IV Saline Lock; Complete Time: 12:21 jr8 04/30 11:19 Order name: Labs collected and sent; Complete Time: 12:21 jr8 04/30 11:19 Order name: O2 Per Protocol; Complete Time: 11:42 jr8 04/30 11:19 Order name: O2 Sat Monitoring; Complete Time: 11:42 jr Administered Medications: 11:55 Drug: Vitamin K1 10 mg Route: Sub-Q; Site: right lower abdomen; ph 12:41 Follow up: Response: No adverse reaction tw2 12:41 Drug: Zofran (Ondansetron) 4 mg Route: IVP; Site: left femoral; ph 13:00 Follow up: Response: No adverse reaction tw2 12:42 Drug: fentaNYL (PF) 25 mcg Route: IVP; Site: left femoral; ph 13:00 Follow up: Response: No adverse reaction; Pain is decreased; RASS: Alert and Calm (0) tw2 13:45 Drug: Benadryl 12.5 mg Route: IVP; Site: left femoral; tw2 14:00 Follow up: Response: No adverse reaction tw2 13:45 Drug: Tylenol 650 mg Route: PO; tw2 14:00 Follow up: Response: No adverse reaction tw2 05/01 00:11 Not Given (Patient Refused): Zofran (Ondansetron) 4 mg IVP once; over 2 minutes mg2 Disposition: 15:56 Co-signature as Attending Physician, Elias Yusuf MD I agree with the assessment and [place] plan of care. 20:47 Critical Care:. jr8 Disposition: 01/06/21 17:07 Transfer ordered to Other Acute Care Facility. Diagnosis are Coumadin Toxicity, Gastrointestinal hemorrhage, unspecified, Acute Anemia . - Reason for transfer: Higher level of care. - Accepting physician is Dr. Ernst Anne. - Condition is Fair. - Problem is new. - Symptoms have improved. Critical care time excluding procedures: 20:47 Critical care time: Bedside Care: 20 minutes, Consultation: 20 minutes, Family jr8 Intervention: 10 minutes. Total time: 50 minutes Signatures: Dispatcher [employer] EDMS Elias Yusuf MD MD cha Calderon, Audri, RN RN aa5 Manuel Mesa PA PA jr8 Susannah Lynn, RN RN ph Tereza Hdez RN RN tw2 Timothy Gabriel RN RN mg2 Corrections: (The following items were deleted from the chart) 04/30 12:26 11:20 CORONAVIRUS+MR.LAB.BRZ ordered. EDAL EDMS 13:54 13:51 LACTATE+C.LAB.BRZ ordered. EDAL EDMS 05/01 14:52 04/30 17:07 04/30/2020 17:07 Transfer ordered to [facility]. jr8 Diagnosis is Coumadin Toxicity; Gastrointestinal hemorrhage, unspecified; Acute Anemia . Reason for transfer: Higher level of care. Accepting physician is [facility]. Condition is Fair. Problem is new. Symptoms have improved. jr8 05/01 15:42 14:52 04/30/2020 17:07 Transfer ordered to Other Acute Care Facility. Diagnosis is aa5 Coumadin Toxicity; Gastrointestinal hemorrhage, unspecified; Acute Anemia . Reason for transfer: Higher level of care. Accepting physician is Dr. Ernst Anne. Condition is Fair. Problem is new. Symptoms have improved. jr8
[2020-04-30 18:28] LABS: Hematocrit 19.8 % (39.6-49.0)
[2020-04-30] MEDS ORDERED: NA CHLORIDE 0.9% 250 ML ONE (19:39)
[2020-05-01] MEDS ORDERED: ONDANSETRON 4 MG/2 ML VIAL ONE (00:22)
[2020-05-01 06:02] LABS: Hematocrit 25.6 % (39.6-49.0)
[2020-05-01 06:21] LABS: Protime INR 4.58
[2020-05-01 11:47] LABS: Potassium 4.2 mmol/L (3.5-5.1)
[2020-05-01 16:24] VITALS: BP 117/75; TEMP 98.6; O2SAT 100
== END 2020-05-01 15:42 ==
LOC: ER 10:56
PROC: 30233K1 Transfusion of Nonautologous Frozen Plasma into Peripheral Vein, Percutaneous Approach (ICD-10-PCS; principal; 2020-05-01)
PROC: 30233N1 Transfusion of Nonautologous Red Blood Cells into Peripheral Vein, Percutaneous Approach (ICD-10-PCS; 2020-05-01)
PROC: 06HN33Z Insertion of Infusion Device into Left Femoral Vein, Percutaneous Approach (ICD-10-PCS; 2020-05-01)
DX: D64.9 Anemia, unspecified (principal); T45.515A Adverse effect of anticoagulants, initial encounter; Z20.822 Contact with and (suspected) exposure to COVID-19; I10 Essential (primary) hypertension; Z85.05 Personal history of malignant neoplasm of liver; Z85.048 Personal history of other malignant neoplasm of rectum, rectosigmoid junction, and anus; Z79.01 Long term (current) use of anticoagulants; Z79.82 Long term (current) use of aspirin; Z88.6 Allergy status to analgesic agent; Z89.511 Acquired absence of right leg below knee
CPT/HCPCS: 93005; 85025; 80048 ×2; 36415; 86900; 83735; 86850; 85610 ×2; 86901; 80076; 85018 ×3; 85014 ×2; 84484; 83880; 71045; 82805; 96375; 96372; 96374; 99285; 36430; 36556; U0003; J3430; J1200; J3010; P9016 ×4; P9059 ×2; J7050 ×2; J2405 ×2; J9299